=== PATIENT | female | born 1945 | race African-American/Black ===

== ENCOUNTER 2016-08-21 10:30 | Day surgery (SDC) | payer MEDICARE, OTHER ==
[~2016-08-21 10:30] MED LIST: AMLO10TA2 PO; ASPI81TA81 PO; CLON.1 PO; HYDR-3133 PO; HYDR-3533 PO; LANTINJ SQ; LEVO75TA3 PO; LISI-515 PO; NEPHRO PO; SEVEL800 PO; TRAM50TA PO; VENTAER INH
[2016-08-21 11:11] VITALS: BP 162/88; PULSE 100; RESP 14; TEMP 97.8; O2SAT 100
[2016-08-21 12:05] VITALS: BP_SYST 165; BP_SYST 178; BP_DIAS 93; BP_DIAS 94; PULSE 85; RESP 18; TEMP 98; O2SAT 96; O2SAT 98
[2016-08-21 12:20] VITALS: BP 165/93; PULSE 85; RESP 18; TEMP 98; O2SAT 100
[2016-08-21] MEDS ORDERED: ALBUMIN HUMAN 25% 25GM-W/12.5GM FOR 37.5GM IV ONE (12:30)
[2016-08-21] MEDS ORDERED: ALBUMIN HUMAN 25% 12.5GM-W/25GM FOR 37.5GM IV ONE (12:30)
--- NOTE | 2016-08-21 15:46 | RADRPT ---
EXAM DATE/TIME: 08/21/2016 11:06 [facility] COMPARISON: US GUIDED ABD PARACENTESIS, June 07, 2016, 8:26. EXTERNAL COMPARISON : [facility], US ABDOMEN, COMPLETE, March 28, 2016 INDICATIONS : Ascites. MEDICAL HISTORY : Hypertension. Gastroesophageal reflux disease. Hypothyroidism. Diabetes. Hepatitis. Pulmonary hyperte nsion. SURGICAL HISTORY : Left hallux amputation. Paracentesis. ENCOUNTER: Subsequent ACUITY: 2 months PAIN SCORE: 5/10 LOCATION: Left lower quadrant FLUID: Total volume of 5000 cc of cloudy, red fluid was removed. Fluid was discarded. Paracentesis was therapeutic only. Post procedure scanning reveals no hematoma or other complication. TECHNIQUE: 1. Ultrasound guidance for abdominal paracentesis. 2. Paracentesis. The risks, benefits, and alternatives to ultrasound guided paracentesis were explained to the patient in detail including the risk of bleeding and infection. Written and verbal informed consent was obt ained. With the patient on the ultrasound table, ultrasound imaging was used to select the most appropriate approach for paracentesis. Overlying skin was prepped and draped in the usual sterile fashion and wi th a local anesthetic, a dermatotomy was made with an 11 blade scalpel. A 6 Thai [id number]-A-[id number] ca theter was introduced into the peritoneal cavity and fluid was collected. The patient tolerated the procedure well and left the ultrasound suite in stable condition. CONCLUSION: Uncomplicated ultrasound guided paracentesis. Jacob Harmon MD on August 21, 2016 at 15:36 Board Certified Radiologist. This report was verified electronically.
[2016-09-25] MEDS ORDERED: TRAM50TA PO (13:58)
[2016-09-25] MEDS ORDERED: ALBUAER3 INH (13:58)
[2016-09-25] MEDS ORDERED: AZIT500T2 PO (13:58)
[2016-09-25] MEDS ORDERED: FLUT50SP EACH NARE (14:01)
[2016-09-25] MEDS ORDERED: REME15TA PO (14:16)
[2016-12-04] MEDS ORDERED: TRAM50TA PO (11:36)
[2017-01-10] MEDS ORDERED: NEPHRO PO (10:30)
[2017-01-10] MEDS ORDERED: AMLO10TA2 PO (10:30)
[2017-01-10] MEDS ORDERED: ASPI81TA81 PO (10:30)
[2017-01-10] MEDS ORDERED: CLON.1 PO (10:30)
[2017-01-10] MEDS ORDERED: TRAM50TA PO (10:30)
[2017-01-10] MEDS ORDERED: LISI-515 PO (10:30)
[2017-01-10] MEDS ORDERED: SEVEL800 PO (10:30)
[2017-01-10] MEDS ORDERED: LANTINJ SQ (10:30)
[2017-01-10] MEDS ORDERED: LEVO75TA3 PO (10:30)
[2017-01-10] MEDS ORDERED: REME15TA PO (10:30)
== END 2016-08-21 13:10 | disposition home or self-care (01) ==
LOC: EDBD → HRAD 10:30 → HRIP 10:31 → HRAD 13:10
PROVIDERS: ATTEND Internal Medicine Nephrology
DX: R18.8 Other ascites (principal)
CPT/HCPCS: 49083; C1729; P9047

== ENCOUNTER 2016-10-16 07:11 | Day surgery (SDC) | payer MEDICARE, OTHER ==
[~2016-10-16 07:11] MED LIST changes: +ALBUAER3 INH; +AZIT500T2 PO; +FLUT50SP EACH NARE; +REME15TA PO; -VENTAER INH
[2016-10-16 09:16] VITALS: BP 175/82; PULSE 77; RESP 18; TEMP 97.3; O2SAT 98
[2016-10-16 10:20] VITALS: BP 165/79; PULSE 81; RESP 20; TEMP 98.1; O2SAT 95
[2016-10-16 10:35] VITALS: BP 166/85; PULSE 81; RESP 20; O2SAT 95
--- NOTE | 2016-10-16 12:34 | RADRPT ---
EXAM DATE/TIME: 10/16/2016 08:51 [facility] COMPARISON: No previous studies available for comparison. INDICATIONS : Ascites. MEDICAL HISTORY : Methicillin-resistant Staphylococcus aureus. Hypertension. Hepatitis C. End stage renal disease. Anem ia. SURGICAL HISTORY : Left hallux amputation. Paracentesis. ENCOUNTER: Subsequent ACUITY: 3 months PAIN SCORE: 3/10 LOCATION: Right lower quadrant FLUID: Total volume of 4100 cc of clear, yellow fluid was removed. Fluid was discarded. Paracentesis was therapeutic only. Post procedure scanning reveals no hematoma or other complication. TECHNIQUE: 1. Ultrasound guidance for abdominal paracentesis. 2. Paracentesis. The risks, benefits, and alternatives to ultrasound guided paracentesis were explained to the patient in detail including the risk of bleeding and infection. Written and verbal informed consent was obt ained. With the patient on the ultrasound table, ultrasound imaging was used to select the most appropriate approach for paracentesis. Overlying skin was prepped and draped in the usual sterile fashion and wi th a local anesthetic, a dermatotomy was made with an 11 blade scalpel. A 6 [place] [id number] ca theter was introduced into the peritoneal cavity and fluid was collected. The patient tolerated the procedure well and left the ultrasound suite in stable condition. CONCLUSION: Uncomplicated ultrasound guided paracentesis. Post procedure imaging demonstrates complete evacuation of the fluid. Jacob Harmon MD on October 16, 2016 at 12:32 Board Certified Radiologist. This report was verified electronically.
[2016-10-16] MEDS ORDERED: REME15TA PO (14:05)
[2016-10-16] MEDS ORDERED: TRAM50TA PO (14:05)
[2016-12-04] MEDS ORDERED: TRAM50TA PO (11:36)
[2017-01-10] MEDS ORDERED: TRAM50TA PO (10:30)
[2017-01-10] MEDS ORDERED: NEPHRO PO (10:30)
[2017-01-10] MEDS ORDERED: AMLO10TA2 PO (10:30)
[2017-01-10] MEDS ORDERED: LANTINJ SQ (10:30)
[2017-01-10] MEDS ORDERED: CLON.1 PO (10:30)
[2017-01-10] MEDS ORDERED: SEVEL800 PO (10:30)
[2017-01-10] MEDS ORDERED: LISI-515 PO (10:30)
[2017-01-10] MEDS ORDERED: LEVO75TA3 PO (10:30)
[2017-01-10] MEDS ORDERED: ASPI81TA81 PO (10:30)
[2017-01-10] MEDS ORDERED: REME15TA PO (10:30)
== END 2016-10-16 10:50 | disposition home or self-care (01) ==
LOC: HRAD 07:11 → MERGE 07:11 → HRIP 07:12 → HRAD 10:50
PROVIDERS: ATTEND Internal Medicine Nephrology
DX: R18.8 Other ascites (principal); I12.0 Hypertensive chronic kidney disease with stage 5 chronic kidney disease or end stage renal disease; B19.20 Unspecified viral hepatitis C without hepatic coma; N18.6 End stage renal disease; D64.9 Anemia, unspecified; B95.61 Methicillin susceptible Staphylococcus aureus infection as the cause of diseases classified elsewhere
CPT/HCPCS: 49083; C1729; G0463; 99213

== ENCOUNTER 2016-12-11 09:32 | Day surgery (SDC) | payer MEDICARE, OTHER ==
[2016-12-11 11:55] VITALS: BP 176/75; PULSE 79; RESP 18; TEMP 98.4; O2SAT 96
[2016-12-11] MEDS ORDERED: ALBUMIN HUMAN 25% 12.5GM-W/25GM FOR 37.5GM IV ONE (12:00)
[2016-12-11] MEDS ORDERED: ALBUMIN HUMAN 25% 25GM-W/12.5GM FOR 37.5GM IV ONE (12:00)
[2016-12-11 12:10] VITALS: BP 183/94; PULSE 77; RESP 16; O2SAT 100
[2016-12-11 12:25] VITALS: BP 175/76; PULSE 76; RESP 18; O2SAT 97
--- NOTE | 2016-12-11 12:25 | RADRPT ---
EXAM DATE/TIME: 12/11/2016 10:30 [facility] COMPARISON: US GUIDED ABD PARACENTESIS, October 16, 2016, 8:51. INDICATIONS : Ascites. Intra-procedural antibiotics were given as prescribed above. MEDICAL HISTORY : Hepatitis C. Hypertension. Methicillin-resistant Staphylococcus aureus. End stage renal disease. Ane loan. SURGICAL HISTORY : Paracentesis. Left hallux amputation. ENCOUNTER: [facility] ACUITY: 2 months PAIN SCORE: 0/10 LOCATION: Left lower quadrant FLUID: Total volume of 6200 cc of clear, yellow fluid was removed. Fluid was discarded. Paracentesis was therapeutic only. Post procedure scanning reveals no hematoma or other complication. TECHNIQUE: 1. Ultrasound guidance for abdominal paracentesis. 2. Paracentesis. The risks, benefits, and alternatives to ultrasound guided paracentesis were explained to the patient in detail including the risk of bleeding and infection. Written and verbal informed consent was obt ained. With the patient on the ultrasound table, ultrasound imaging was used to select the most appropriate approach for paracentesis. Overlying skin was prepped and draped in the usual sterile fashion and wi th a local anesthetic, a dermatotomy was made with an 11 blade scalpel. A 6 [place] [id number]-T-oyntrdvu ca theter was introduced into the peritoneal cavity and fluid was collected. The patient tolerated the procedure well and left the ultrasound suite in stable condition. CONCLUSION: Uncomplicated ultrasound guided paracentesis. Mendoza Kong MD on December 11, 2016 at 12:22 Board Certified Radiologist. This report was verified electronically.
[2016-12-11] MEDS ORDERED: REME15TA PO (21:15)
[2017-01-10] MEDS ORDERED: LISI-515 PO (10:30)
[2017-01-10] MEDS ORDERED: CLON.1 PO (10:30)
[2017-01-10] MEDS ORDERED: AMLO10TA2 PO (10:30)
[2017-01-10] MEDS ORDERED: LANTINJ SQ (10:30)
[2017-01-10] MEDS ORDERED: ASPI81TA81 PO (10:30)
[2017-01-10] MEDS ORDERED: REME15TA PO (10:30)
[2017-01-10] MEDS ORDERED: TRAM50TA PO (10:30)
[2017-01-10] MEDS ORDERED: NEPHRO PO (10:30)
[2017-01-10] MEDS ORDERED: LEVO75TA3 PO (10:30)
[2017-01-10] MEDS ORDERED: SEVEL800 PO (10:30)
== END 2016-12-11 13:00 | disposition home or self-care (01) ==
LOC: HRAD 09:32 → HRIP 09:33 → HRAD 13:00
PROVIDERS: ATTEND Internal Medicine Gastroenterology
DX: R18.8 Other ascites (principal); I12.0 Hypertensive chronic kidney disease with stage 5 chronic kidney disease or end stage renal disease; N18.6 End stage renal disease; D63.1 Anemia in chronic kidney disease; B19.20 Unspecified viral hepatitis C without hepatic coma; Z86.14 Personal history of Methicillin resistant Staphylococcus aureus infection
CPT/HCPCS: 49083; 96365; C1729

== ENCOUNTER 2017-01-13 08:03 | Observation (INO) | payer MEDICARE, OTHER ==
[2017-01-13] VITALS (9 sets, daily range): BP systolic 146–180; BP diastolic 71–77; PULSE 69–97; RESP 16–24; TEMP 97.5–98.5; O2SAT 93–100
[~2017-01-13] VITALS: Ht 165.1 cm; Wt 63.0 kg
[~2017-01-13 08:03] MED LIST changes: -AZIT500T2 PO; -FLUT50SP EACH NARE; -HYDR-3533 PO
--- NOTE | 2017-01-13 08:40 | PD ---
HPI Chief Complaint: Abnormal Results Time Seen by Provider: 08:18 Travel History International Travel<30 days: No Contact w/Intl Traveler<30days: No Traveled to known affect area: No History of Present Illness HPI Patient is a 71-year-old female with history of end-stage renal disease on hemodialysis on Mondays, Wednesdays, Fridays per Dr. Buchanan, history of hypertension, diabetes, hypothyroid, GERD, hepatitis C, cataracts and liver cirrhosis. Patient reports that she received a phone call from her nephrologists nurse telling her to go to the emergency room for evaluation as her hemoglobin was 7.0. Patient reports that she has noticed a steady decline in her hemoglobin over the past few months. Patient does endorse that she has noticed dark stools a few weeks ago, also reports that she had blood-tinged stools a few days ago. Patient reports that she has been feeling more tired lately than normal. She does not feel lightheaded or dizzy. Patient with no chest pain or shortness of breath. Patient reports that she did have a colonoscopy a few years ago, reports that everything was negative, she does not remember who her coil assembler was at that time. Patient does report that she did have her dialysis on Saturday. Patient reports that overall, she is anuric , if she does make urine - she only makes a few drops every few days. Patient's primary care doctor is Dr. Karyn Clifton Patient's defect repairer glassware is Dr. Dewayne MARI Past Medical History Anemia: Yes Arthritis: Yes Asthma: No Blood Disorders: Yes (ANEMIA) Anxiety: No Depression: No Heart Rhythm Problems: No Cancer: No Cardiovascular Problems: No High Cholesterol: No Chemotherapy: No Chest Pain: No Congestive Heart Failure: No COPD: No Cerebrovascular Accident: No Diabetes: Yes Dialysis: Yes (SINCE NOVEMBER 2012, LEFT AVF 2012) Diminished Hearing: No GERD: No Glaucoma: No Headaches: No Hepatitis: No Hiatal Hernia: No Hypertension: Yes Implanted Vascular Access Dvce: Yes Kidney Stones: No Musculoskeletal: No Neurologic: No Psychiatric: No Reproductive: No Respiratory: No Immunizations Current: Yes Myocardial Infarction: No Radiation Therapy: No Renal Failure: Yes Seizures: Yes Sickle Cell Disease: No Sleep Apnea: No Thyroid Disease: Yes Ulcer: No Menopausal: Yes Past Surgical History Abdominal Surgery: No AICD: No Cardiac Surgery: No Ear Surgery: No Endocrine Surgery: No Eye Surgery: No Genitourinary Surgery: No Gynecologic Surgery: No Hysterectomy: Yes (PARTICIAL ) Oral Surgery: No Pacemaker: No Thoracic Surgery: No Other Surgery: Yes (FIRST DIGIT FOOT AMPUTATION) Social History Alcohol Use: No Tobacco Use: Yes Substance Use: No Allergies-Medications (Allergen,Severity, Reaction): Coded Allergies: *MDRO Multi-Drug Resistant Organism (Verified Allergy, Unknown, 01/13/17) MRSA Reported Meds & Prescriptions Reported Meds & Active Scripts Active Remeron (Mirtazapine) 15 Mg Tab 15 Mg PO HS Tramadol (Tramadol HCl) 50 Mg Tab 100 Mg PO DAILY PRN Aspir-81 (Aspirin) 81 Mg Tabdr 81 Mg PO DAILY Nephro-Jammie Rx (Vitamin B Cmplx/Vit C/Folic AC) 1 Tab 1 Tab PO DAILY Renvela (Sevelamer Carbonate) 800 Mg Tab 800 Mg PO TID Levothyroxine (Levothyroxine Sodium) 75 Mcg Tab 75 Mcg PO DAILY Lantus Solostar Pen Inj (Insulin Glargine) 300 Unit/3 Ml Pen 10 Units SQ HS Amlodipine (Amlodipine Besylate) 10 Mg Tab 10 Mg PO DAILY Lisinopril 20 Mg Tab 20 Mg PO DIRECTED Catapres (Clonidine) 0.1 Mg Tab 0.1 Mg PO DAILY@0600 Proair Hfa 8.5 GM Inh (Albuterol Sulfate) 90 Mcg/Act Aer 2 Puff INH Q4-6H PRN 108 mcg/actuation Reported Hydroxyzine HCl 25 Mg Tab 25 Mg PO HS Review of Systems General / Constitutional: No: Fever Eyes: No: Visual changes HENT: No: Headaches Cardiovascular: No: Chest Pain or Discomfort Respiratory: No: Shortness of Breath Gastrointestinal: Positive: Other (melena), No: Abdominal Pain Genitourinary: No: Dysuria, Menorrhagia Musculoskeletal: No: Pain Skin: No Rash Neurologic: Positive: Weakness Psychiatric: No: Depression Endocrine: No: Polydipsia Hematologic/Lymphatic: No: Easy Bruising Physical Exam Narrative GENERAL: No acute distress SKIN: Focused skin assessment warm/dry. HEAD: Atraumatic. Normocephalic. EYES: Pupils equal and round. No scleral icterus. No injection or drainage. ENT: No nasal bleeding or discharge. Mucous membranes pink and moist. NECK: Trachea midline. No JVD. CARDIOVASCULAR: Regular rate and rhythm. No murmur appreciated. RESPIRATORY: No accessory muscle use. Clear to auscultation. Breath sounds equal bilaterally. GASTROINTESTINAL: Abdomen soft, non-tender, nondistended. Hepatic and splenic margins not palpable. : Rectal exam performed with RN at bedside, patient with Hemoccult positive dark brown blood MUSCULOSKELETAL: No obvious deformities. No clubbing. No cyanosis. No edema. Patient with left-sided AV fistula with good thrill NEUROLOGICAL: Awake and alert. No obvious cranial nerve deficits. Motor grossly within normal limits. Normal speech. PSYCHIATRIC: Appropriate mood and affect; insight and judgment normal. Data Data Last Documented VS Vital Signs Date Time Temp Pulse Resp B/P Pulse Ox O2 Delivery O2 Flow Rate FiO2 01/13/17 08:18 99 Room Air 01/13/17 08:05 98.5 76 24 180/76 Orders Type And Screen (01/13/17 08:18) Electrocardiogram (01/13/17 08:18) Prothrombin Time / Inr (Pt) (01/13/17 08:18) Act Partial Throm Time (Ptt) (01/13/17 08:18) Complete Blood Count With Diff (01/13/17 08:18) Basic Metabolic Panel (Bmp) (01/13/17 08:18) Ecg Monitoring (01/13/17 08:18) Iv Access Insert/Monitor (01/13/17 08:18) Oximetry (01/13/17 08:18) Admit Order (Ed Use Only) (01/13/17 10:38) Labs Laboratory Tests Test 01/13/17 08:25 White Blood Count 6.6 TH/MM3 Red Blood Count 3.14 MIL/MM3 Hemoglobin 8.3 GM/DL Hematocrit 26.4 % Mean Corpuscular Volume 84.3 FL Mean Corpuscular Hemoglobin 26.6 PG Mean Corpuscular Hemoglobin 31.5 % Concent Red Cell Distribution Width 17.7 % Platelet Count 267 TH/MM3 Mean Platelet Volume 9.9 FL Neutrophils (%) (Auto) 66.7 % Lymphocytes (%) (Auto) 12.5 % Monocytes (%) (Auto) 8.3 % Eosinophils (%) (Auto) 11.7 % Basophils (%) (Auto) 0.8 % Neutrophils # (Auto) 4.4 TH/MM3 Lymphocytes # (Auto) 0.8 TH/MM3 Monocytes # (Auto) 0.6 TH/MM3 Eosinophils # (Auto) 0.8 TH/MM3 Basophils # (Auto) 0.1 TH/MM3 CBC Comment DIFF FINAL Differential Comment Prothrombin Time 12.9 SEC Prothromb Time International 1.2 RATIO Ratio Activated Partial 25.6 SEC Thromboplast Time Sodium Level 137 MEQ/L Potassium Level 4.9 MEQ/L Chloride Level 100 MEQ/L Carbon Dioxide Level 28.2 MEQ/L Anion Gap 9 MEQ/L Blood Urea Nitrogen 40 MG/DL Creatinine 6.37 MG/DL Estimat Glomerular Filtration 8 ML/MIN Rate Random Glucose 159 MG/DL Calcium Level 9.0 MG/DL Blood Type O POSITIVE Antibody Screen NEGATIVE MDM Medical Decision Making Medical Screen Exam Complete: Yes Emergency Medical Condition: Yes Interpretation(s) EKG at 08: Normal sinus rhythm at 71 bpm, QT/QTc 415/437, ST segment depressions in leads 2, 3, aVF, V5 and V6; EKG similar to previous ekg's Vital Signs Date Time Temp Pulse Resp B/P Pulse Ox O2 Delivery O2 Flow Rate FiO2 01/13/17 08:18 99 Room Air 01/13/17 08:05 98.5 76 24 180/76 94 Room Air Differential Diagnosis Anemia could be secondary to GI bleed, electrolyte deficiency, renal disease Narrative Course Patient is a 71-year-old female with history of stage renal disease on hemodialysis Mondays, Wednesdays and Fridays, presents to emergency room with complaints of anemia. Patient reports that she received a call from dialysis nurse yesterday that her hemoglobin was 7.0. Patient was told to come to emergency room for evaluation. Patient reports no other complaints except for feeling weak over the past few months, she did endorse that she has had dark stools a few weeks ago and noticed bright red stools last week. Patient has seen a coil assembler a few years ago, reports that the colonoscopy was negative at that time. On evaluation, vital signs are stable. Patient was placed on a monitoring analyst upon arrival to the emergency room. Patient does have heme positive dark brown stools on exam. Plan to type and screen patient. Will obtain blood work and monitor her on a monitoring analyst. Hgb trend: 07/25/16: 9.5 11/28/16: 7.9 01/11/17: 7.5 hgb today 8.3 Hemoglobin 8.3, and to observe for serial hbg for evaluation of GI bleed case reviewed with dr. daniel who accepts pt to service of dr. quiroga Diagnosis Primary Impression: GI bleed Qualified Code: K92.2 - Gastrointestinal hemorrhage, unspecified gastrointestinal hemorrhage type Additional Impression: Anemia Qualified Code: D64.9 - Anemia, unspecified type Admitting Information Admitting Physician Requests: Observation Hailey Sullivan DO Jan 13, 2017 08:40
[2017-01-13 08:50] LABS: AUTOMATED NEUTROPHIL # 4.4 TH/MM3 (1.8-7.7); BASOPHIL # 0.1 TH/MM3 (0-0.2); BASOPHIL % 0.8 % (0.0-2.0); EOSINOPHIL # 0.8 TH/MM3 (0-0.4); EOSINOPHIL % 11.7 % (0.0-4.0); HEMATOCRIT 26.4 % (35.0-46.0); HEMO FLAGS DIFF FINAL; LYMPH % 12.5 % (9.0-44.0); LYMPHOCYTE # 0.8 TH/MM3 (1.0-4.8); MEAN CELL VOLUME 84.3 FL (80.0-100.0); MEAN CORPUSCULAR HEMOGLOBIN 26.6 PG (27.0-34.0); MEAN CORPUSCULAR HGB CONC 31.5 % (32.0-36.0); MONO % 8.3 % (0.0-8.0); NEUT % 66.7 % (16.0-70.0); PLATELET COUNT 267 TH/MM3 (150-450); RED BLOOD COUNT 3.14 MIL/MM3 (4.00-5.30); RED CELL DISTRIBUTION WIDTH 17.7 % (11.6-17.2); WHITE BLOOD COUNT 6.6 TH/MM3 (4.0-11.0)
[2017-01-13 09:00] LABS: APTT (PATIENT) 25.6 SEC (24.3-30.1); INTERNATIONAL NORMALIZED RATIO 1.2 RATIO; PROTHROMBIN TIME - PATIENT 12.9 SEC (9.8-11.6)
[2017-01-13 09:12] LABS: BICARBONATE 28.2 MEQ/L (21.0-32.0); POTASSIUM 4.9 MEQ/L (3.5-5.1)
--- NOTE | 2017-01-13 10:48 | HHI.HP ---
HPI Service Family Medicine Primary Care Physician Unknown Admission Diagnosis GI Bleed Diagnoses: International Travel<30 Days: No Contact w/Intl Traveler<30days: No Known Affected Area: No History of Present Illness Patient is a 71-year-old female with a PMH significant for ESRD who presented here today at the direction of her nephrology nurse. Patient reports getting a call yesterday about low hemoglobin on 01/12 and the nephrology nurse recommended she go to the ED at that time. She deferred coming in until today. She reports that she otherwise feels well but has noticed more fatigue over the last several weeks. She has also noticed dark stools on 2 separate occasions last month but no further episodes nor bright red blood. She otherwise denies chest pain, SOB, syncope, weakness, dizziness, confusion, abdominal pain, nausea /vomiting. She does not make urine. She does report getting diarrhea with dialysis which is typically resolved with Imodium. She also endorses abdominal distention that requires paracentesis every 3 months. She denies a history of hepatitis C but is noted in chart review. Of note patient reports running out of her medication over 3 weeks ago as her old roommate do them out except for her amlodipine and aspirin. She also reports not taking insulin for her diabetes for over one year as she states that she does not require insulin anymore. 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 Does report getting paracentesis every 3 months. - Cataracts - Dr. Holly (Ophthalmology, [facility]) - Dr. Buchanan (Nephrology) - Dr. Akbar (Cardiology) Past Surgical History - Left hallux amputation Reported Medications Reported Meds & Active Scripts Active Remeron (Mirtazapine) 15 Mg Tab 15 Mg PO HS Tramadol (Tramadol HCl) 50 Mg Tab 100 Mg PO DAILY PRN Aspir-81 (Aspirin) 81 Mg Tabdr 81 Mg PO DAILY Nephro-Jammie Rx (Vitamin B Cmplx/Vit C/Folic AC) 1 Tab 1 Tab PO DAILY Renvela (Sevelamer Carbonate) 800 Mg Tab 800 Mg PO TID Levothyroxine (Levothyroxine Sodium) 75 Mcg Tab 75 Mcg PO DAILY Lantus Solostar Pen Inj (Insulin Glargine) 300 Unit/3 Ml Pen 10 Units SQ HS Amlodipine (Amlodipine Besylate) 10 Mg Tab 10 Mg PO DAILY Lisinopril 20 Mg Tab 20 Mg PO DIRECTED Catapres (Clonidine) 0.1 Mg Tab 0.1 Mg PO DAILY@0600 Proair Hfa 8.5 GM Inh (Albuterol Sulfate) 90 Mcg/Act Aer 2 Puff INH Q4-6H PRN 108 mcg/actuation Reported Hydroxyzine HCl 25 Mg Tab 25 Mg PO HS (Megha Fowler MD R2) Allergies: Coded Allergies: *MDRO Multi-Drug Resistant Organism (Verified Allergy, Unknown, 01/13/17) MRSA Family History HTN, DM Social History - Tobacco: currently 1 cigarette daily, history of 1 PPD for ~35 yrs - EtOH: denies, wine periodically - Illicit drugs: denies - 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 Resting comfortably in bed SKIN: No rashes, ecchymoses. Cool and dry. 2 superficial lesions on bilateral toes that appear to be well healing. EYES: Pupils equal round and reactive. Extraocular motions intact. No scleral icterus. No injection or drainage. ENT: Nose without bleeding, purulent drainage. Throat without erythema, tonsillar hypertrophy or exudate. Uvula midline. Airway patent. NECK: Trachea midline. No lymphadenopathy. Supple, nontender, no meningeal signs. CARDIOVASCULAR: Regular rate and rhythm without murmurs, gallops, or rubs. RESPIRATORY: Clear to auscultation. Breath sounds equal bilaterally. No wheezes , rales, or rhonchi. GASTROINTESTINAL: Abdomen soft, non-tender, distended. No guarding. MUSCULOSKELETAL: Extremities without clubbing, cyanosis, or edema. No calf tenderness. Onychomycosis on all toenails bilaterally. 2+ pedal pulses bilaterally NEUROLOGICAL: Awake and alert. Motor grossly within normal limits. Normal speech. Laboratory Laboratory Tests Test 01/13/17 08:25 White Blood Count 6.6 Red Blood Count 3.14 Hemoglobin 8.3 Hematocrit 26.4 Mean Corpuscular Volume 84.3 Mean Corpuscular Hemoglobin 26.6 Mean Corpuscular Hemoglobin 31.5 Concent Red Cell Distribution Width 17.7 Platelet Count 267 Mean Platelet Volume 9.9 Neutrophils (%) (Auto) 66.7 Lymphocytes (%) (Auto) 12.5 Monocytes (%) (Auto) 8.3 Eosinophils (%) (Auto) 11.7 Basophils (%) (Auto) 0.8 Neutrophils # (Auto) 4.4 Lymphocytes # (Auto) 0.8 Monocytes # (Auto) 0.6 Eosinophils # (Auto) 0.8 Basophils # (Auto) 0.1 CBC Comment DIFF FINAL Differential Comment Prothrombin Time 12.9 Prothromb Time International 1.2 Ratio Activated Partial 25.6 Thromboplast Time Sodium Level 137 Potassium Level 4.9 Chloride Level 100 Carbon Dioxide Level 28.2 Anion Gap 9 Blood Urea Nitrogen 40 Creatinine 6.37 Estimat Glomerular Filtration 8 Rate Random Glucose 159 Calcium Level 9.0 Blood Type O POSITIVE Antibody Screen NEGATIVE (Megha Fowler MD R2) Result Diagram: 01/13/17 0825 01/13/17 0825 Assessment and Plan Assessment and Plan 71-year-old female with PMH significant for ESRD. Admitted for suspected lower GI bleed Code Status Full (Megha Fowler MD R2) Attending Attestation Patient seen and examined this am. Case reviewed and discussed Please refer to resident H&P for further details regarding HPI, ROS, PMH, SurgHx , FH and SocHx In summary, patient is a 71yoF presenting for worsening fatigue, weakness and Hgb notable for 6.3 by nephrology. She is seen in HD this am. She has no complaints, had BMs this am, but uncertain how they looked. NO abdominal pain, but complains of being hungry. GENERAL: wdwn NAD resting in bed in HD SKIN: Warm and dry. NO rashes HEAD: Normocephalic. AT EYES: No scleral icterus. No injection or drainage. ENT: OP clear. MMM NECK: Supple, trachea midline. No JVD or lymphadenopathy. CARDIOVASCULAR: Regular rate and rhythm without audible murmurs, gallops, or rubs. RESPIRATORY: Breath sounds equal bilaterally. No accessory muscle use. GASTROINTESTINAL: Abdomen soft, non-tender, nondistended. Minimal diffuse abd pain, no rebound. Hypoactive BS. MUSCULOSKELETAL: No cyanosis, or edema. No calf tenderness BACK: Nontender without obvious deformity. No CVA tenderness. NEURO: Awake and alert. Normal speech. CN grossly intact. A/P: 71yoF admitted with: Acute blood loss anemia, symptomatic anemia GIB Hemoccult + ESRD on HD DM HTN, uncontrolled Serial hgb Transfuse to keep hgb>7 Monitor for bleeding GI, renal consult Resume home meds as appropriate Patient seen and examined Case reviewed and discussed Agree with plan of care as discussed with me and documented in the resident note. (Alannah Benitez MD) Problem List: (1) GI bleed Status: Acute Plan: Suspect lower GI bleed as Hemoccult was positive in the ED. Anemia is likely exacerbated due to ESRD. Patient hemodynamically stable at this time. -Initial H&H was 8.3/26.4, ordered serial H&H's -Ferritin and reticulocyte obtained -Hold home aspirin Consulted GI for possible colonoscopy: Appreciate recommendations (2) Anemia Status: Chronic Plan: Likely acute on chronic exacerbation of anemia in the setting of lower GI bleed and ESRD. Hemodynamically stable. See more detail plan above. (3) ESRD (end stage renal disease) on dialysis Status: Chronic Plan: Follows with Dr. Em Buchanan for hemodialysis Saturday, Saturday, Saturday. Patient reports not taking phosphate binder. Electrolytes otherwise unremarkable -Phosphate levels obtained, resume home phosphate binder Nephrology consulted: Appreciate assistance with dialysis (4) Ascites Status: Chronic Plan: Patient denies having hepatitis C but does report requiring paracentesis for ascites every 3 months. Patient unable to clarify etiology of ascites. Patient also unable to take Lasix due to anuria. -Abdominal distention will likely improve with hemodialysis -Pending clinical status, may require paracentesis inpatient versus outpatient (5) Hypertension Status: Chronic Plan: Has ran out of many home medications except for amlodipine. Initial BP in ED has improved. -Continue to hold home clonidine as she has not taken this for several weeks and may benefit not having this as a home medication. Will provide as a PRN -Continue home amlodipine, lisinopril (6) Diabetes mellitus Status: Chronic Plan: Reports having the diagnosis of diabetes but not requiring medication for over one year. Suspect patient may benefit from insulin therapy as A1c 1 year ago was 8.5. -Repeat A1c -Low-dose insulin sliding scale started (7) Nutrition, metabolism, and development symptoms Status: Acute Plan: Diet: Renal, nothing by mouth after midnight in anticipation for colonoscopy Fluids: None Electronic: Unremarkable, continue to monitor GI prophylaxis: Protonix daily due to GI bleed DVT prophylaxis: Chemical contraindicated, SCDs (Megha Fowler MD R2) Problem Qualifiers (1) GI bleed: Qualified Code: K92.2 - Gastrointestinal hemorrhage, unspecified gastrointestinal hemorrhage type (2) Anemia: Qualified Code: D64.9 - Anemia, unspecified type (3) Diabetes mellitus: Megha Fowler MD R2 Jan 13, 2017 10:48 Alannah Benitez MD Jan 14, 2017 16:41 Megha Fowler MD R2 Jan 13, 2017 10:48 Alannah Benitez MD Jan 14, 2017 16:41
[2017-01-13] MEDS ORDERED: NALOXONE HCL 0.4 MG/ML AMP IV PRN ×2 (11:30→11:45)
[2017-01-13] MEDS ORDERED: LACTULOSE SYRUP 20 GM/30 ML CUP PO PRN (11:30)
[2017-01-13] MEDS ORDERED: BISACODYL 10 MG SUPP RECTAL PRN (11:30)
[2017-01-13] MEDS ORDERED: SENNOSIDES 8.6 MG TAB PO PRN (11:30)
[2017-01-13] MEDS: LISINOPRIL 20 MG TAB PO SCH (11:38)
[2017-01-13] MEDS ORDERED: ACETAMINOPHEN/HYDROcodone 325 MG/10 MG TAB PO PRN (11:45)
[2017-01-13] MEDS ORDERED: GLUCAGON 1 MG/ML VIAL OTHER PRN (11:45)
[2017-01-13] MEDS ORDERED: DEXTROSE 50% IN WATER 50 ML VIAL(D50) IV PRN (11:45)
[2017-01-13] MEDS ORDERED: ACETAMINOPHEN/HYDROcodone 325 MG/5 MG TAB PO PRN (11:45)
[2017-01-13] MEDS ORDERED: SODIUM CHLOR 0.9% 1000 ML INJ 1,000 ML IV PRN ×3 (12:14)
[2017-01-13 12:15] LABS: FERRITIN 338 NG/ML (8-252)
[2017-01-13] MEDS ORDERED: cloNIDine HCL 0.1 MG TAB PO PRN ×2 (12:15→12:30)
[2017-01-13] MEDS ORDERED: GENTAMICIN SULFATE (DIALYSIS USE ONLY) 20 MG/2 ML VIAL IV PRN (12:15)
[2017-01-13] MEDS ORDERED: SODIUM CHLORIDE 0.9% FLUSH 10 ML FLUSH IV FLUSH PRN (12:15)
[2017-01-13] MEDS ORDERED: diphenhydrAMINE HCL 25 MG CAP PO PRN (12:15)
[2017-01-13] MEDS ORDERED: ACETAMINOPHEN 325 MG TAB PO PRN (12:15)
[2017-01-13] MEDS ORDERED: ALBUMIN HUMAN 25% 25 GM/100 ML BAGP IV PRN (12:15)
[2017-01-13] MEDS ORDERED: MANNITOL 12.5 GM/50 ML VIAL IV PRN (12:15)
[2017-01-13] MEDS ORDERED: HEPARIN SODIUM - IV 10,000 UNITS/10 ML VIAL IVF PRN (12:15)
[2017-01-13] MEDS ORDERED: EPOETIN ALFA 10,000 UNITS/ML VIAL IV PRN (12:15)
[2017-01-13] MEDS ORDERED: ONDANSETRON HCL 4 MG/2 ML VIAL IV PRN (12:15)
[2017-01-13] MEDS ORDERED: GELATIN 12 MM/7 MM FOAM TOP PRN (12:15)
[2017-01-13] MEDS ORDERED: HEPARIN SODIUM - IV 10,000 UNITS/10 ML VIAL PRN (12:15)
[2017-01-13] MEDS ORDERED: NITROGLYCERIN 0.4 MG SL 25 TABS/BTL SL PRN (12:15)
[2017-01-13 12:25] LABS: RETIC % 1.8 % (0.4-3.0); REVIEW FLAG FINAL
--- NOTE | 2017-01-13 12:32 | PD.CONS ---
HPI Service Nephrology Consult Requested By Reason for Consult ESRD Primary Care Physician Unknown History of Present Illness Ms. Bolivar is a 71 year old lady with history of ESRD for which she is on hemodialysis MWF. She has been on dialysis since November of 2012. Has had recurrent ascites for which she had to have several paracentesis. Patient apparently noticed dark colored stools about twice in the past 3 weeks, last episode about 2 weeks ago. Her Hemoglobin was apparently 7, and was advised to come to the ER by the dialysis nurse Patient is on Aspirin, is on no other antiplatelet agents or anticoagulants. Apparently she was being scheduled to have GI evaluation in the outpatient setting by her PCP. Patient denies any dizziness, lightheadedness. Denies chest pain, shortness of breath. Denies use of NSAIDs. She is being admitted for further evaluation. Review of Systems Constitutional: COMPLAINS OF: Fatigue, DENIES: Fever, Weight gain Eyes: DENIES: Blurred vision Respiratory: DENIES: Apneas, Cough Cardiovascular: DENIES: Chest pain, Palpitations, Syncope Gastrointestinal: COMPLAINS OF: Black stools, DENIES: Abdominal pain, Bloody stools, Constipation, Diarrhea, Nausea, Vomiting Musculoskeletal: DENIES: Joint pain Integumentary: DENIES: Abnormal pigmentation, Pruritus, Rash Past Family Social History Allergies: Coded Allergies: *MDRO Multi-Drug Resistant Organism (Verified Allergy, Unknown, 01/13/17) MRSA Past Medical History Hypertension -type 2 diabetes, currently not on medications. Hypothyroidism - Diabetic nephropathy resulting in ESRD (on dialysis MWF since 11/2012) - GERD - Hepatitis C Recurrent ascites. - Cataracts Past Surgical History - Left hallux amputation Reported Medications Reported Medications Reported Meds & Active Scripts Active Remeron (Mirtazapine) 15 Mg Tab 15 Mg PO HS Tramadol (Tramadol HCl) 50 Mg Tab 100 Mg PO DAILY PRN Aspir-81 (Aspirin) 81 Mg Tabdr 81 Mg PO DAILY Nephro-Jammie Rx (Vitamin B Cmplx/Vit C/Folic AC) 1 Tab 1 Tab PO DAILY Renvela (Sevelamer Carbonate) 800 Mg Tab 800 Mg PO TID Levothyroxine (Levothyroxine Sodium) 75 Mcg Tab 75 Mcg PO DAILY Lantus Solostar Pen Inj (Insulin Glargine) 300 Unit/3 Ml Pen 10 Units SQ HS Amlodipine (Amlodipine Besylate) 10 Mg Tab 10 Mg PO DAILY Lisinopril 20 Mg Tab 20 Mg PO DIRECTED Catapres (Clonidine) 0.1 Mg Tab 0.1 Mg PO DAILY@0600 Proair Hfa 8.5 GM Inh (Albuterol Sulfate) 90 Mcg/Act Aer 2 Puff INH Q4-6H PRN 108 mcg/actuation Reported Hydroxyzine HCl 25 Mg Tab 25 Mg PO HS Active Ordered Medications Current Medications Medications (Trade) Dose Ordered Sig/Rita Route Start Time Stop Time Status Last Admin (NS Flush) 2 ml BID IV FLUSH 01/13/17 21:00 (Norvasc) 10 mg DAILY PO 01/14/17 09:00 (Synthroid) 75 mcg DAILY@0600 PO 01/14/17 06:00 (Prinivil) 20 mg DAILY PO 01/13/17 11:15 01/13/17 11:38 (Remeron) 15 mg HS PO 01/13/17 21:00 (Narcan Inj) 0.4 mg UNSCH PRN IV 01/13/17 11:30 (Velma-Colace) 1 tab BID PO 01/13/17 21:00 (Senokot) 17.2 mg Q12H PRN PO 01/13/17 11:30 (Dulcolax Supp) 10 mg DAILY PRN RECTAL 01/13/17 11:30 (Lactulose Liq) 30 ml DAILY PRN PO 01/13/17 11:30 (Protonix) 40 mg HS PO 01/13/17 21:00 (D50w (Vial) Inj) 50 ml UNSCH PRN IV 01/13/17 11:45 (Glucagon Inj) 1 mg UNSCH PRN OTHER 01/13/17 11:45 ([place] 5-325 Mg) 1 tab Q4H PRN PO 01/13/17 11:45 ([place] 10-325 Mg) 1 tab Q4H PRN PO 01/13/17 11:45 (Narcan Inj) 0.4 mg UNSCH PRN IV 01/13/17 11:45 (Renvela) 800 mg TID PO 01/13/17 13:00 UNV Family History HTN, DM Social History Lives alone. Daughter lives close by, checks on her daily. 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 Used to smoke about 1/2PPD until about 3 months ago, now smokes 1 Cigarette/ day. Has smoked for 35 years. No ETOH currently. Physical Exam Vital Signs Vital Signs Date Time Temp Pulse Resp B/P Pulse Ox O2 Delivery O2 Flow Rate FiO2 01/13/17 11:13 70 16 166/74 100 Room Air 01/13/17 08:18 99 Room Air 01/13/17 08:05 98.5 76 24 180/76 94 Room Air Physical Exam GENERAL: pleasant lady, alert, awake, not in any distress. SKIN: Warm and dry. HEAD: Normocephalic. EYES: No scleral icterus. No injection or drainage. NECK: Supple, trachea midline. No JVD or lymphadenopathy. CARDIOVASCULAR: Regular rate and rhythm without murmurs, gallops, or rubs. RESPIRATORY: Breath sounds equal bilaterally. No accessory muscle use. GASTROINTESTINAL: Abdomen soft, non-tender, nondistended. MUSCULOSKELETAL: No cyanosis, or edema. AVF left forearm patent. BACK: Nontender without obvious deformity. No CVA tenderness. Laboratory Laboratory Tests Test 01/13/17 08:25 White Blood Count 6.6 Red Blood Count 3.14 Hemoglobin 8.3 Hematocrit 26.4 Mean Corpuscular Volume 84.3 Mean Corpuscular Hemoglobin 26.6 Mean Corpuscular Hemoglobin 31.5 Concent Red Cell Distribution Width 17.7 Platelet Count 267 Mean Platelet Volume 9.9 Neutrophils (%) (Auto) 66.7 Lymphocytes (%) (Auto) 12.5 Monocytes (%) (Auto) 8.3 Eosinophils (%) (Auto) 11.7 Basophils (%) (Auto) 0.8 Neutrophils # (Auto) 4.4 Lymphocytes # (Auto) 0.8 Monocytes # (Auto) 0.6 Eosinophils # (Auto) 0.8 Basophils # (Auto) 0.1 CBC Comment DIFF FINAL Differential Comment Prothrombin Time 12.9 Prothromb Time International 1.2 Ratio Activated Partial 25.6 Thromboplast Time Sodium Level 137 Potassium Level 4.9 Chloride Level 100 Carbon Dioxide Level 28.2 Anion Gap 9 Blood Urea Nitrogen 40 Creatinine 6.37 Estimat Glomerular Filtration 8 Rate Random Glucose 159 Calcium Level 9.0 Blood Type O POSITIVE Antibody Screen NEGATIVE Result Diagram: 01/13/1782401/13/17824 Assessment and Plan Problem List: (1) ESRD (end stage renal disease) on dialysis Plan: dialysis will be MWF. No need for dialysis today. Avoid Gadolinium. Blood transfusion can be performed during dialysis tomorrow. (2) Hypertension Plan: BP is high. Monitor. Continue her home medications: Lisinopril, Amlodipine and Clonidine. (3) Anemia Plan: normocytic anemia due to CKD. In addition, she may have developed upper GI bleeding. GI evaluation is pending. Blood transfusion can be performed at dialysis tomorrow. I will order iron studies. Continue Epogen with dialysis. (4) Ascites Plan: Currently stable, not an issue. (5) Metabolic bone disease Plan: Obtain phosphorus, monitor. Continue Renvela with meals. Assessment and Plan Thanks for the consult. I will follow. Problem Qualifiers (1) Anemia: Qualified Code: D64.9 - Anemia, unspecified type Dao Greene MD Jan 13, 2017 12:32
[2017-01-13 12:33] LABS: MAGNESIUM 2.4 MG/DL (1.5-2.5)
[2017-01-13] MEDS: SEVELAMER CARBONATE 800 MG TAB PO SCH ×2 (13:00→17:56)
--- NOTE | 2017-01-13 13:18 | PD.CONS ---
HPI History of Present Illness This is a 71 year old female who presented to the ER due to low hemoglobin on 01/12 as noted on her labs by her nephrology nurse. Patient with past medical history significant for ESRD. Reports increased fatigue. States she had one episode of bright red blood in her stool about 3 weeks ago and has had 2 episodes of dark stools. Reports intermittent RLQ pain. Last colonoscopy "years ago," which was normal per patient. No family history of colon cancer. Hemoccult was positive in ED. Patient with history of Hepatitis C, as noted in chart, but patient denies. Patient does report getting paracentesis every 3 months. (Tracy Duenas) PFSH Past Medical History Hypertension Diabetes Hypothyroidism Diabetic nephropathy with ESRD (on dialysis MWF) Nocturnal hypoxia (on 2 L O2 at night) GERD Hepatitis C Cataracts Past Surgical History Left hallux amputation (Tracy Duenas) Coded Allergies: *MDRO Multi-Drug Resistant Organism (Verified Allergy, Unknown, 01/13/17) MRSA Medications Current Medications Medications (Trade) Dose Ordered Sig/Rita Route PRN Reason Start Time Stop Time Status Last Admin Dose Admin Sodium Chloride (NS Flush) 2 ml BID IV FLUSH 01/13/17 21:00 Amlodipine Besylate (Norvasc) 10 mg DAILY PO 01/14/17 09:00 Levothyroxine Sodium (Synthroid) 75 mcg DAILY@0600 PO 01/14/17 06:00 Lisinopril (Prinivil) 20 mg DAILY PO 01/13/17 11:15 01/13/17 11:38 Mirtazapine (Remeron) 15 mg HS PO 01/13/17 21:00 Naloxone HCl (Narcan Inj) 0.4 mg UNSCH PRN IV SEE LABEL COMMENTS 01/13/17 11:30 Senna/Docusate Sodium (Velma-Colace) 1 tab BID PO 01/13/17 21:00 Sennosides (Senokot) 17.2 mg Q12H PRN PO MODERATE - SEVERE CONSTIPATION 01/13/17 11:30 Bisacodyl (Dulcolax Supp) 10 mg DAILY PRN RECTAL SEVERE CONSITIPATION 01/13/17 11:30 Lactulose (Lactulose Liq) 30 ml DAILY PRN PO SEVERE CONSITIPATION 01/13/17 11:30 Pantoprazole Sodium (Protonix) 40 mg HS PO 01/13/17 21:00 Dextrose (D50w (Vial) Inj) 50 ml UNSCH PRN IV HYPOGLYCEMIA-SEE COMMENTS 01/13/17 11:45 Glucagon (Glucagon Inj) 1 mg UNSCH PRN OTHER HYPOGLYCEMIA-SEE COMMENTS 01/13/17 11:45 Acetaminophen/ Hydrocodone Bitart ([place] 5-325 Mg) 1 tab Q4H PRN PO PAIN SCALE 3 TO 5 01/13/17 11:45 Acetaminophen/ Hydrocodone Bitart ([place] 10-325 Mg) 1 tab Q4H PRN PO PAIN SCALE 6 TO 10 01/13/17 11:45 Naloxone HCl (Narcan Inj) 0.4 mg UNSCH PRN IV SEE LABEL COMMENTS 01/13/17 11:45 Sevelamer Carbonate 800 mg 800 mg TID PO 01/13/17 13:00 Sodium Chloride (NS 1000 ml Inj) 1,000 ml @ 0 mls/hr Q0M PRN IV For Prime & Rinse Back 01/13/17 12:14 Heparin Sodium (Porcine) 8000 units 8,000 units UNSCH PRN IVF WITH DIALYSIS 01/13/17 12:15 Sodium Chloride 1,000 ml @ 200 mls/hr Q5H PRN IV WITH DIALYSIS 01/13/17 12:14 Sodium Chloride (NS 1000 ml Inj) 1,000 ml @ 0 mls/hr Q0M PRN IV WITH DIALYSIS 01/13/17 12:14 Mannitol (Mannitol Inj) 12.5 gm UNSCH PRN IV WITH DIALYSIS 01/13/17 12:15 Albumin Human (Albumin 25% Inj) 25 gm UNSCH PRN IV WITH DIALYSIS 01/13/17 12:15 Sodium Chloride (NS Flush) 5 ml UNSCH PRN IV FLUSH WITH DIALYSIS 01/13/17 12:15 Heparin Sodium (Porcine) (Heparin Inj) UNSCH PRN .XX WITH DIALYSIS 01/13/17 12:15 Gentamicin Sulfate (Gentamicin (Dialysis) Inj) 20 mg UNSCH PRN IV WITH DIALYSIS 01/13/17 12:15 Ondansetron HCl (Zofran Inj) 4 mg UNSCH PRN IV WITH DIALYSIS 01/13/17 12:15 Acetaminophen (Tylenol) 650 mg UNSCH PRN PO for headach, pain, temp > 101F 01/13/17 12:15 Diphenhydramine HCl (Benadryl) 25 mg UNSCH PRN PO for hives/itching/anaphylaxis 01/13/17 12:15 Nitroglycerin (Nitrostat Sl) 0.4 mg UNSCH PRN SL CHEST PAIN 01/13/17 12:15 Clonidine (Catapres) 0.1 mg UNSCH PRN PO for BP > 180/100 X 2 readings 01/13/17 12:15 Epoetin Néstor (Epogen Inj) 10,000 units UNSCH PRN IV WITH DIALYSIS 01/13/17 12:15 Gelatin (Gelfoam 12 Mm/7 Mm Top) 1 foam UNSCH PRN TOP SEE LABEL COMMENTS 01/13/17 12:15 Clonidine (Catapres) 0.1 mg Q6H PRN PO SBP>180, DBP>110, HR>65 01/13/17 12:30 Family History Hypertension Diabetes Social History Tobacco: 1 cigarette daily, history of 1 PPD for about 35 years ETOH: Wine occasionally Illicit Drugs: Denies (Tracy Duenas) Review of Systems Constitutional: COMPLAINS OF: Fatigue, DENIES: Diaphoretic episodes, Fever, Weight gain, Weight loss, Chills, Dizziness, Change in appetite, Night Sweats Endocrine: DENIES: Polydipsia, Polyuria Eyes: DENIES: Blurred vision, Photosensitivity, Double Vision Ears, nose, mouth, throat: DENIES: Hearing loss, Vertigo, Oral lesions, Throat pain, Hoarseness Respiratory: DENIES: Cough, Wheezing, Hemoptysis, Sputum production, Shortness of breath Cardiovascular: DENIES: Chest pain, Palpitations, Syncope, Lower Extremity Edema, Orthopnea, Claudication Gastrointestinal: COMPLAINS OF: Abdominal pain, Black stools, Bloody stools, Swelling of Abdomen, DENIES: Constipation, Diarrhea, Nausea, Vomiting, Difficulty Swallowing, Anorexia, Odynophagia, Heartburn, Hematemesis Genitourinary: DENIES: Urinary frequency, Urinary incontinence, Urgency, Hematuria, Dysuria, Nocturia Musculoskeletal: DENIES: Joint pain, Muscle aches, Stiffness, Joint Swelling, Back pain, Neck pain Integumentary: DENIES: Abnormal pigmentation, Nail changes, Pruritus, Rash, Jaundice Hematologic/lymphatic: DENIES: Bruising, Lymphadenopathy Immunologic/allergic: DENIES: Eczema, Urticaria Neurologic: DENIES: Abnormal gait, Headache, Localized weakness, Paresthesias Psychiatric: DENIES: Anxiety, Confusion, Mood changes, Depression, Agitation, Suicidal Ideation (Tracy Duenas) GI Exam Vitals I&O Vital Signs Date Time Temp Pulse Resp B/P Pulse Ox O2 Delivery O2 Flow Rate FiO2 01/13/17 12:50 77 16 169/71 99 Room Air 01/13/17 11:13 70 16 166/74 100 Room Air 01/13/17 08:18 99 Room Air 01/13/17 08:05 98.5 76 24 180/76 94 Room Air Laboratory Test 01/13/17 08:25 White Blood Count 6.6 TH/MM3 Red Blood Count 3.14 MIL/MM3 Hemoglobin 8.3 GM/DL Hematocrit 26.4 % Mean Corpuscular Volume 84.3 FL Mean Corpuscular Hemoglobin 26.6 PG Mean Corpuscular Hemoglobin 31.5 % Concent Red Cell Distribution Width 17.7 % Platelet Count 267 TH/MM3 Mean Platelet Volume 9.9 FL Neutrophils (%) (Auto) 66.7 % Lymphocytes (%) (Auto) 12.5 % Monocytes (%) (Auto) 8.3 % Eosinophils (%) (Auto) 11.7 % Basophils (%) (Auto) 0.8 % Neutrophils # (Auto) 4.4 TH/MM3 Lymphocytes # (Auto) 0.8 TH/MM3 Monocytes # (Auto) 0.6 TH/MM3 Eosinophils # (Auto) 0.8 TH/MM3 Basophils # (Auto) 0.1 TH/MM3 CBC Comment DIFF FINAL Differential Comment Reticulocyte Count 1.8 % Absolute Reticulocyte Count 55.4 MIL/L Prothrombin Time 12.9 SEC Prothromb Time International 1.2 RATIO Ratio Activated Partial 25.6 SEC Thromboplast Time Sodium Level 137 MEQ/L Potassium Level 4.9 MEQ/L Chloride Level 100 MEQ/L Carbon Dioxide Level 28.2 MEQ/L Anion Gap 9 MEQ/L Blood Urea Nitrogen 40 MG/DL Creatinine 6.37 MG/DL Estimat Glomerular Filtration 8 ML/MIN Rate Random Glucose 159 MG/DL Calcium Level 9.0 MG/DL Phosphorus Level 4.7 MG/DL Magnesium Level 2.4 MG/DL Ferritin 338 NG/ML Blood Type O POSITIVE Antibody Screen NEGATIVE Physical Examination HEENT: PERRLA; normocephalic; atraumatic; no jaundice. NECK: Neck is supple, no JVD, no lymphadenopathy. CHEST: CTA CARDIAC: RRR ABDOMEN: Soft, nondistended, nontender; no hepatosplenomegaly; bowel sounds x 4 quadrants EXTREMITIES: No clubbing, cyanosis, or edema. SKIN: Normal; no rash; no jaundice. 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 (Tracy Duenas) Assessment and Plan Plan ASSESSMENT GI bleed, Hemoccult positive. HH 8.3/26.4 (01/13). Ferritin 338. Aspirin on hold. Had colonoscopy "years ago," which was normal per patient. Anemia, HH as above. Stable. Patient with ESRD. ESRD, Chronic, On dialysis M,W,F. Nephrology following Ascites, Patient with history of Hepatitis C as noted in chart (patient denies) . Patient reports getting paracentesis every 3 months. PLAN -Colonoscopy on Saturday -Obtain consents -NPO after MN on Saturday night -Monitor HH -Notify GI if active bleeding -Further recommendations to follow based on results of above. Patient seen and examined by Dr. Delaney and myself and this note is written on his behalf. (Tracy Duenas) Physician Comments Seen and examined, plan as above, further recommendations to follow. (Madeleine Delaney MD) Tracy Duenas Jan 13, 2017 13:17 Madeleine Delaney MD Jan 13, 2017 22:49
[2017-01-13 14:02] LABS: HEMATOCRIT 26.7 % (35.0-46.0); REVIEW FLAG FINAL
--- NOTE | 2017-01-13 14:21 | EKG ---
Date Performed: 01/13/2017 Time Performed: 08:31:26 PTAGE: 71 years EKG: Left axis deviation Slight right ventricular conduction disturbance Poor initial anterior f orces V1 and V3 with a smaller wave in V4, this may be due to previous septal myocardial infarction v ersus left axis deviation. Diffuse nonspecific ST-T change Since PREVIOUS TRACING 08/12/2014, no significant change. PREVIOUS TRACIN08/12/2014 19.43 DOCTOR: German Gregory Interpretating Date/Time 01/13/2017 14:20:23
[2017-01-13] MEDS: INSULIN ASPART SUPPLEMENTAL SCALE SQ SCH ×2 (17:58→22:37)
[2017-01-13] MEDS: SODIUM CHLORIDE 0.9% FLUSH 10 ML FLUSH IV FLUSH SCH (20:39)
[2017-01-13] MEDS: MIRTAZAPINE 15 MG TAB PO SCH (20:39)
[2017-01-13] MEDS: PANTOPRAZOLE SOD 40 MG DELAYED RELEASE TAB PO SCH (20:39)
[2017-01-13] MEDS: DOCUSATE SODIUM 50 MG/SENNA 8.6 MG TAB PO SCH (20:40)
[2017-01-13 21:25] LABS: HEMATOCRIT 26.2 % (35.0-46.0); REVIEW FLAG FINAL
[2017-01-14] VITALS (7 sets, daily range): BP systolic 136–205; BP diastolic 63–84; PULSE 68–79; RESP 16–18; TEMP 97.6–98.1; O2SAT 90–98
[2017-01-14 02:23] LABS: AUTOMATED NEUTROPHIL # 3.5 TH/MM3 (1.8-7.7); BASOPHIL % 0.6 % (0.0-2.0); EOSINOPHIL # 0.8 TH/MM3 (0-0.4); EOSINOPHIL % 13.1 % (0.0-4.0); HEMATOCRIT 23.8 % (35.0-46.0); HEMO FLAGS DIFF FINAL; LYMPH % 15.8 % (9.0-44.0); LYMPHOCYTE # 0.9 TH/MM3 (1.0-4.8); MEAN CELL VOLUME 84.2 FL (80.0-100.0); MEAN CORPUSCULAR HEMOGLOBIN 26.9 PG (27.0-34.0); MONO % 10.7 % (0.0-8.0); NEUT % 59.8 % (16.0-70.0); PLATELET COUNT 236 TH/MM3 (150-450); RED BLOOD COUNT 2.83 MIL/MM3 (4.00-5.30); RED CELL DISTRIBUTION WIDTH 17.1 % (11.6-17.2); WHITE BLOOD COUNT 5.8 TH/MM3 (4.0-11.0)
[2017-01-14 02:44] LABS: ALT (GPT) 13 U/L (10-53); ANION GAP 7 MEQ/L (5-15); AST (GOT) 16 U/L (15-37); BICARBONATE 29.5 MEQ/L (21.0-32.0); BLOOD UREA NITROGEN 50 MG/DL (7-18); CHLORIDE 103 MEQ/L (98-107); GLOMERULAR FILTRATION RATE 7 ML/MIN (>89); POTASSIUM 5.1 MEQ/L (3.5-5.1); SODIUM (NA) 139 MEQ/L (136-145)
[2017-01-14 02:47] LABS: ALKALINE PHOSPHATASE 145 U/L (45-117); TOTAL BILIRUBIN ADULT 0.3 MG/DL (0.2-1.0); TRANSFERRIN IRON PROFILE 159 MG/DL (200-360)
[2017-01-14] MEDS: LEVOTHYROXINE SODIUM 75 MCG TAB PO SCH (05:55)
[2017-01-14] MEDS: INSULIN ASPART SUPPLEMENTAL SCALE SQ SCH ×4 (06:27→21:00)
[2017-01-14] MEDS: SODIUM CHLORIDE 0.9% FLUSH 10 ML FLUSH IV FLUSH SCH ×2 (09:00→22:04)
[2017-01-14] MEDS: DOCUSATE SODIUM 50 MG/SENNA 8.6 MG TAB PO SCH ×2 (09:00→21:00)
[2017-01-14] MEDS: LISINOPRIL 20 MG TAB PO SCH ×2 (09:00→12:59)
[2017-01-14] MEDS: SEVELAMER CARBONATE 800 MG TAB PO SCH ×3 (09:00→18:28)
--- NOTE | 2017-01-14 10:34 | HHI.NPPN ---
Subjective General Problems: Anemia Renal Failure: Chronic, End Stage Renal Disease Interval History Seen during dialysis. She is reporting hunger. (Teresa Parekh) Objective Data Data 01/13/17 01/14/17 19:00 07:00 Intake Total 240 ml Balance 240 ml Intake Oral 240 ml # Voids 1 Vital Signs Date Time Temp Pulse Resp B/P Pulse Ox O2 Delivery O2 Flow Rate FiO2 01/14/17 03:38 70 18 136/63 90 01/14/17 00:34 68 18 175/72 97 01/13/17 20:00 71 01/13/17 19:15 98.3 73 18 177/77 95 01/13/17 18:10 97 01/13/17 15:58 97.5 72 18 146/77 93 01/13/17 14:04 93 21 01/13/17 13:58 97.5 69 18 155/72 95 01/13/17 12:50 77 16 169/71 99 Room Air 01/13/17 11:13 70 16 166/74 100 Room Air (Teresa Parekh) -: 01/14/17 0208 01/14/17 0208 Physical Exam General Appearance: Well Developed, Well Nourished, No Acute Distress, Comfortable ( Teresa Parekh) Eyes Eye Exam: Pupils Equal (Teresa Parekh) Throat Throat Exam: Oral Mucosa [place] & Moist (Teresa Parekh) Pulmonary Resp Exam: Clear Bilaterally, Breath Sounds Equal, No Distress (Teresa Parekh) Cardiology CV Exam: Regular, Normal Sinus Rhythm, Good Perfusion (Teresa Parekh) Gastrointestinal/Abdomen GI Exam: Soft, Non-Tender (Teresa Parekh) Musculoskeletal MS Exam: Normal Gait, Normal Tone (Teresa Parekh) Integumentary Skin Exam: Clear, Warm, Dry, Intact (Teresa Parekh) Extremeties Extremities Exam: No Edema, Pedal Pulses Palpable (Teresa Parekh) Neurologic Neuro Exam: Alert, Awake, Oriented, Speech Clear, Moving All Extremities ( Teresa Parekh) Psychiatric Psych Exam: Appropriate Responses (Teresa Parekh) Assessment/Plan Discussed Condition With: Patient Assessment Summary: Anemia of CKD Problem List: (1) ESRD (end stage renal disease) on dialysis Plan: seen during dialysis on a 2K, 350 BFR, goal 4L continue dialysis support on MWF. avoid IVF, also avoid Gadolinium. obtain intermittent renal panel high protein diet when no longer NPO or on clear liquids (2) Hypertension Plan: BP is better, Continue her home medications: Lisinopril and amlodipine (3) Anemia Plan: normocytic anemia due to CKD. Continue Epogen Also, she may have developed upper GI bleeding. Due for colonoscopy tomorrow labs indicating iron deficiency, Venofer ordered x 3 doses give one unit PRBC today (4) Ascites Plan: Currently stable, not an issue. (5) Metabolic bone disease Plan: Continue Renvela Follow phosphorus level intermittently (Teresa Parekh) Plan patient was seen and examined. Agree with above assessment and plan. Seen during dialysis. Transfuse 1 unit of PRBC today. (Dao Greene MD) Problem Qualifiers (1) Anemia: Qualified Code: D64.9 - Anemia, unspecified type Teresa Parekh Jan 14, 2017 10:33 Dao Greene MD Jan 14, 2017 13:09
[2017-01-14] MEDS: IRON SUCROSE INJ 100 MG in SODIUM CHLORIDE 0.9% INJ 100 ML IV SCH (11:00)
[2017-01-14 11:41] LABS: HEMOGLOBIN A1a 1.7 %; HEMOGLOBIN A1b 0.7 %; HEMOGLOBIN Ao 83.5 %; HEMOGLOBIN F 1.1 %; HEMOGLOBIN LA1C 2.1 %; HEMOGLOBIN P3 5.9 %
[2017-01-14] MEDS ORDERED: SODIUM CHLOR 0.9% 250 ML INJ 250 ML IV ONE (11:45)
--- NOTE | 2017-01-14 11:47 | HHI.FPPN ---
Subjective Remarks Patient without concerns or complaints. Denies any abdominal pain, bloody stools , melena, sob, or cp. Had a BM this morning. (Jesus Mendiola MD R2) Objective Vitals Vital Signs Date Time Temp Pulse Resp B/P Pulse Ox O2 Delivery O2 Flow Rate FiO2 01/14/17 10:32 72 01/14/17 03:38 70 18 136/63 90 01/14/17 00:34 68 18 175/72 97 01/13/17 20:00 71 01/13/17 19:15 98.3 73 18 177/77 95 01/13/17 18:10 97 01/13/17 15:58 97.5 72 18 146/77 93 01/13/17 14:04 93 21 01/13/17 13:58 97.5 69 18 155/72 95 01/13/17 12:50 77 16 169/71 99 Room Air I/O 01/13/17 01/13/17 01/13/17 01/14/17 01/14/17 01/14/17 07:00 15:00 23:00 07:00 15:00 23:00 Intake Total 240 ml Balance 240 ml Intake Oral 240 ml # Voids 1 (Jesus Mendiola MD R2) Result Diagram: 01/14/17 0208 01/14/17 0208 A/P Assessment and Plan 71-year-old female with PMH significant for ESRD. Admitted for suspected lower GI bleed (Jesus Mendiola MD R2) Attending Attestation Patient seen and examined in HD. Case reviewed and discussed. Agree with plan of care as discussed with me and documented in the resident note. (Alannah Benitez MD) Problem List: (1) GI bleed Status: Acute Plan: Suspect upper GI bleed as Hemoccult was positive in the ED and black stools. Anemia is likely exacerbated due to ESRD. Patient hemodynamically stable at this time. -Initial H&H was 8.3/26.4: Trended q 6 hours since admission and have remained stable: 8.3 --> 8.2 --> --> 8.2 --> 7.6. -Continue to monitor H&H q 6 hours. -Ferritin within normal limits. -Hold home aspirin. -GI plans to do colonoscopy on 01/15/2017 -- we appreciate their assistance. (2) Anemia Status: Chronic Plan: Likely acute on chronic exacerbation of anemia in the setting of lower GI bleed and ESRD. Hemodynamically stable. See more detail plan above. (3) ESRD (end stage renal disease) on dialysis Status: Chronic Plan: Follows with Dr. Em Buchanan for hemodialysis Saturday, Saturday, Saturday. -Phosphate levels obtained: H at 5.0, resume home phosphate binder TID. Repeat Phosphorous in AM. Nephrology consulted: Appreciate assistance with dialysis (4) Ascites Status: Chronic Plan: Patient denies having hepatitis C but does report requiring paracentesis for ascites every 3 months. Patient unable to clarify etiology of ascites. Patient also unable to take Lasix due to anuria. -Abdominal distention will likely improve with hemodialysis -Pending clinical status, may require paracentesis inpatient versus outpatient (5) Hypertension Status: Chronic Plan: Has ran out of many home medications except for amlodipine. Initial BP in ED has improved. -Continue home amlodipine, lisinopril -Clonidine 0.1 mg PO q 6 hr PRN systolic > 180 mm Hg. (6) Diabetes mellitus Status: Chronic Plan: Reports having the diagnosis of diabetes but not requiring medication for over one year. Suspect patient may benefit from insulin therapy as A1c 1 year ago was 8.5. -Repeat A1c pending. -Low-dose insulin sliding scale started, Bedside glucose 123 and (7) Nutrition, metabolism, and development symptoms Status: Acute Plan: Diet: Renal, nothing by mouth after midnight in anticipation for colonoscopy Fluids: None Electronic: Unremarkable, continue to monitor GI prophylaxis: Protonix daily due to GI bleed DVT prophylaxis: Chemical contraindicated, SCDs (Jesus Mendiola MD R2) Problem Qualifiers (1) GI bleed: Qualified Code: K92.2 - Gastrointestinal hemorrhage, unspecified gastrointestinal hemorrhage type (2) Anemia: Qualified Code: D64.9 - Anemia, unspecified type (3) Diabetes mellitus: Jesus Mendiola MD R2 Jan 14, 2017 11:46 Alannah Benitez MD Jan 15, 2017 16:00
[2017-01-14] MEDS ORDERED: PEG (High)/E-LYTE SOLN 4000 ML BTL PO ONE (16:00)
[2017-01-14] MEDS: hydrALAZINE HCL 10 MG TAB PO SCH (22:04)
[2017-01-14] MEDS: PANTOPRAZOLE SOD 40 MG DELAYED RELEASE TAB PO SCH (22:05)
[2017-01-14] MEDS: MIRTAZAPINE 15 MG TAB PO SCH (22:06)
[2017-01-14 23:49] LABS: HEMATOCRIT 30.5 % (35.0-46.0); REVIEW FLAG FINAL
[2017-01-15] VITALS (10 sets, daily range): BP systolic 154–202; BP diastolic 67–93; PULSE 66–77; RESP 16–20; TEMP 96.3–98.4; O2SAT 91–100
[2017-01-15 04:17] LABS: REVIEW FLAG FINAL
[2017-01-15 05:02] LABS: BICARBONATE 32.9 MEQ/L (21.0-32.0); MAGNESIUM 2.3 MG/DL (1.5-2.5); POTASSIUM 3.9 MEQ/L (3.5-5.1)
[2017-01-15] MEDS: INSULIN ASPART SUPPLEMENTAL SCALE SQ SCH ×4 (05:56→21:01)
[2017-01-15] MEDS: LEVOTHYROXINE SODIUM 75 MCG TAB PO SCH (05:56)
[2017-01-15] MEDS: hydrALAZINE HCL 10 MG TAB PO SCH ×2 (05:56→15:51)
[2017-01-15] MEDS: DOCUSATE SODIUM 50 MG/SENNA 8.6 MG TAB PO SCH ×2 (09:00→20:55)
[2017-01-15] MEDS: SEVELAMER CARBONATE 800 MG TAB PO SCH ×3 (09:00→18:17)
[2017-01-15] MEDS: LISINOPRIL 20 MG TAB PO SCH (09:48)
[2017-01-15] MEDS: SODIUM CHLORIDE 0.9% FLUSH 10 ML FLUSH IV FLUSH SCH ×2 (09:49→20:54)
[2017-01-15] MEDS: IRON SUCROSE INJ 100 MG in SODIUM CHLORIDE 0.9% INJ 100 ML IV SCH (09:58)
[2017-01-15 10:38] LABS: HEMATOCRIT 28.6 % (35.0-46.0); REVIEW FLAG FINAL
--- NOTE | 2017-01-15 12:01 | HHI.FPPN ---
Subjective Remarks No acute events overnight. Afebrile. Hypertensive to 192/82 this morning. Patient seen and examined in her room. She is very unhappy with her liquid diet and requests food. She denies any headaches. Dialyzed yesterday. (Hailey Tang MD R3) Objective Vitals Vital Signs Date Time Temp Pulse Resp B/P Pulse Ox O2 Delivery O2 Flow Rate FiO2 01/15/17 07:48 98.3 74 16 192/82 95 01/15/17 04:35 98.3 67 18 154/67 94 01/15/17 00:15 96.3 74 18 175/75 96 01/14/17 21:49 72 01/14/17 20:00 97.6 75 18 172/76 98 01/14/17 14:00 98.1 77 16 187/76 90 01/14/17 13:36 97.7 79 18 205/84 94 I/O 01/14/17 01/14/17 01/14/17 01/15/17 01/15/17 01/15/17 06:59 14:59 22:59 06:59 14:59 22:59 Intake Total 900 ml Output Total 4101 ml 6 ml Balance -3201 ml -6 ml Intake Oral 900 ml Output Urine Total 6 ml Stool Total 1 ml Hemodialysis 4100 ml # Voids 1 5 # Bowel Movements 6 5 (Hailey Tang MD R3) Result Diagram: 01/15/17 1015 01/15/17 0330 Objective Remarks Gen.: No acute distress Head: Normocephalic. Atraumatic. EENT: Pupils equal round and reactive to light. Nose without drainage. Airway intact. Throat without injection. Cardiovascular: Regular rate and rhythm. No murmurs, rubs or gallops. Respiratory: Lungs clear to auscultation bilaterally. No wheezes or rhonchi. Abdomen: Soft, nontender, nondistended. No peritoneal signs. Musculoskeletal: No gross deformities. No edema. Skin: No obvious rashes or erythema. Neuro: Sensory and motor grossly intact. Cranial nerves II through XII grossly intact. (Hailey Tang MD R3) A/P Assessment and Plan 71-year-old female with PMH significant for ESRD. Admitted for suspected lower GI bleed Discharge Planning To home once colonoscopy complete, likely today (Hailey Tang MD R3) Attending Attestation Patient seen and examined. Case reviewed and discussed. Agree with plan of care as discussed with me and documented in the resident note. received additional prbcs yesterday. hgb improved For EGD, colonoscopy today (Alannah Benitez MD) Problem List: (1) GI bleed Status: Acute Plan: Suspect upper GI bleed as Hemoccult was positive in the ED and black stools. Anemia is likely exacerbated due to ESRD. Patient hemodynamically stable at this time. -Initial H&H was 8.3/26.4: Trended q 6 hours since admission and have remained stable: 8.3 --> 8.2 --> --> 8.2 --> 7.6. Status post transfusion of 1 unit packed red blood cells in dialysis yesterday. Hemoglobin now 9.5. -Ferritin within normal limits. -Hold home aspirin. -Colonoscopy today. (2) Anemia Status: Chronic Plan: Likely acute on chronic exacerbation of anemia in the setting of lower GI bleed and ESRD. Hemodynamically stable. See more detail plan above. (3) ESRD (end stage renal disease) on dialysis Status: Chronic Plan: Follows with Dr. Em Buchanan for hemodialysis Saturday, Saturday, Saturday. Dialyzed yesterday (4) Ascites Status: Chronic Plan: Patient denies having hepatitis C but does report requiring paracentesis for ascites every 3 months. Patient unable to clarify etiology of ascites. Patient also unable to take Lasix due to anuria. -Abdominal distention improved today, status post hemodialysis (5) Hypertension Status: Chronic Plan: Has ran out of many home medications except for amlodipine. Remains hypertensive despite treatment with home blood pressure medications -Continue home amlodipine, increase lisinopril to 40 mg daily -Clonidine 0.1 mg PO q 6 hr PRN systolic > 180 mm Hg. (6) Diabetes mellitus Status: Chronic Plan: Reports having the diagnosis of diabetes but not requiring medication for over one year. -A1c 6.3 -Low-dose SSI (7) Nutrition, metabolism, and development symptoms Status: Acute Plan: Diet: Renal Fluids: None Electronic: Unremarkable, continue to monitor GI prophylaxis: Protonix daily due to GI bleed DVT prophylaxis: Chemical contraindicated, SCDs (Hailey Tang MD R3) Problem Qualifiers (1) GI bleed: Qualified Code: K92.2 - Gastrointestinal hemorrhage, unspecified gastrointestinal hemorrhage type (2) Anemia: Qualified Code: D64.9 - Anemia, unspecified type (3) Diabetes mellitus: Hailey Tang MD R3 Jan 15, 2017 12:01 Alannah Benitez MD Jan 15, 2017 16:00
[2017-01-15] MEDS ORDERED: PROPOFOL 200 MG/20 ML AMP IV ONE (13:47)
--- NOTE | 2017-01-15 14:01 | GIPROC ---
[facility] [address] [facility]. [facility], [address] EGD PROCEDURE REPORT EXAM DATE: 01/15/2017 PATIENT NAME: Anel Bolivar MR #: [id number] BIRTHDATE: 1945 ATTENDING: Madeleine Delaney MD ORDER #: [id number] HOURLY SHIFT: Alvarez Zhang and Arsalan Tian STATUS: inpatient INDICATIONS: The patient is a 71 yr old female here for an EGD due to anemia PROCEDURE PERFORMED: EGD, diagnostic MEDICATIONS: None and Per Anesthesia. TOPICAL ANESTHETIC: none CONSENT: The patient understands the risks and benefits of the procedure and understands that these risks include, but are not limited to: sedation, allergic reaction, infection, perforation and/or bleeding. Alternative means of evaluation and treatment include, among others: physical exam, x-rays, and/or surgical intervention. The patient elects to proceed with this endoscopic procedure. medical equipment was checked for proper function. Hand hygiene and appropriate measures for infection prevention was taken. After the risks, benefits and alternatives of the procedure were thoroughly explained, Informed consent was verified, confirmed and timeout was successfully executed by the treatment team. The patient was anesthetized with topical anesthesia and the [id number] (Pedi C) endoscope was introduced through the mouth and advanced to the second portion of the duodenum. Retroflexion was performed and was normal The gastroscope was then slowly withdrawn and removed. ESOPHAGUS: A Schatzki ring was found in the distal esophagus and was widely open. STOMACH: The stomach otherwise appeared normal. DUODENUM: The duodenal mucosa appeared normal in the bulb and second portion of the duodenum. ADVERSE EVENTS: There were no complications. IMPRESSIONS: 1. Schatzki ring was found in the distal esophagus 2. The stomach otherwise appeared normal 3. Normal duodenal mucosa in the bulb and second portion of the duodenum 4. Retroflexion was performed and was normal RECOMMENDATIONS: Colonoscopy PATIENT CONDITION: stable DISPOSITION: Observation REPEAT EXAM: Return as needed for EGD Madeleine Delaney MD eSigned: Madeleine Delaney MD 01/15/2017 2:01 PM cc:
--- NOTE | 2017-01-15 14:04 | HHI.PR ---
Addendum to Inpatient Note Addendum Reason: Additional Documentation Additional Information Patient had an EGD, during the procedure she desaturated required cancellation of the Colonoscopy, will reschedule Colonoscopy for tomorrow. Madeleine Delaney MD Jan 15, 2017 14:04
--- NOTE | 2017-01-15 15:01 | HHI.PR ---
Addendum to Inpatient Note Addendum Reason: Additional Documentation Additional Information Evaluated patient bedside after desaturation during EGD. Patient satting well on RA. Eating hamburger despite being on clear liquid diet. Explained to the patient at length the importance of staying on a clear liquid diet so she can have her colonoscopy done tomorrow. The patient refuses to remain on CLD and states that she does not agree with doing the colonoscopy as her life is "in God 's hands." Counseled the patient as to the importance of obtaining the colonoscopy to look for a source of her bleeding. She stated that she was not concerned about bleeding and does not want the test if it involves a CLD. ( Hailey Tang MD R3) Hailey Tang MD R3 Jan 15, 2017 15:01 Alannah Benitez MD Jan 15, 2017 15:59
[2017-01-15] MEDS: BISACODYL EC 5 MG TABEC PO ONE ×2 (16:00→18:17)
--- NOTE | 2017-01-15 16:28 | HHI.NPPN ---
Subjective General Problems: Anemia Renal Failure: Chronic, End Stage Renal Disease History of Present Illness They were unable to do colonoscopy today as the patient desaturated prior to procedure. Rescheduled for tomorrow. Had dialysis yesterday. (Teresa Parekh) Objective Data Data 01/14/17 01/15/17 19:00 07:00 Intake Total 900 ml Output Total 4101 ml 6 ml Balance -3201 ml -6 ml Intake Oral 900 ml Output Urine Total 6 ml Stool Total 1 ml Hemodialysis 4100 ml # Voids 5 # Bowel Movements 11 Vital Signs Date Time Temp Pulse Resp B/P Pulse Ox O2 Delivery O2 Flow Rate FiO2 01/15/17 15:11 98.4 66 16 171/74 91 01/15/17 14:29 75 18 168/70 100 01/15/17 14:17 78 18 175/67 100 01/15/17 14:06 97.9 77 18 152/67 96 01/15/17 12:38 69 01/15/17 11:45 98.1 73 16 202/92 98 01/15/17 07:48 98.3 74 16 192/82 95 01/15/17 04:35 98.3 67 18 154/67 94 01/15/17 00:15 96.3 74 18 175/75 96 01/14/17 21:49 72 01/14/17 20:00 97.6 75 18 172/76 98 (Teresa Parekh) -: 01/15/17 1015 01/15/17 0330 Physical Exam General Appearance: Well Developed, Well Nourished, No Acute Distress, Comfortable ( Teresa Parekh) Eyes Eye Exam: Pupils Equal (Teresa Parekh) Throat Throat Exam: Oral Mucosa [place] & Moist (Teresa Parekh) Pulmonary Resp Exam: Clear Bilaterally, Breath Sounds Equal, No Distress (Teresa Parekh) Cardiology CV Exam: Regular, Normal Sinus Rhythm, Good Perfusion (Teresa Parekh) Gastrointestinal/Abdomen GI Exam: Soft, Non-Tender (Teresa Parekh) Musculoskeletal MS Exam: Normal Gait, Normal Tone (Teresa Parekh) Integumentary Skin Exam: Clear, Warm, Dry, Intact (Teresa Parekh) Extremeties Extremities Exam: No Edema, Pedal Pulses Palpable (Teresa Parekh) Neurologic Neuro Exam: Alert, Awake, Oriented, Speech Clear, Moving All Extremities ( Teresa Parekh) Psychiatric Psych Exam: Appropriate Responses (Teresa Parekh) Assessment/Plan Discussed Condition With: Patient Assessment Summary: Anemia of CKD Problem List: (1) ESRD (end stage renal disease) on dialysis Plan: s4L UF yesterday with dialysis, continue MWF dialysis support no acute renal concerns avoid IVF, also avoid Gadolinium. obtain intermittent renal panel high protein diet when no longer NPO or on clear liquids (2) Hypertension Plan: BP is better, Continue her home medications: Lisinopril and amlodipine (3) Anemia Plan: Hb stable she has normocytic anemia due to CKD. Continue Epogen Also, she may have developed upper GI bleeding. Due for colonoscopy tomorrow labs indicating iron deficiency, Venofer ordered x 3 doses given one unit 01/14 (4) Ascites Plan: Currently stable, not an issue. (5) Metabolic bone disease Plan: Continue Renvela Follow phosphorus level intermittently (6) GI bleed Plan: gi following, due for scope tomorrow on clear liquid diet but she is not following diet recommendations (Teresa Parekh) Plan patient was seen and examined during dialysis. Agree with above assessment and plan. Patient was seen during dialysis. Colonoscopy planned for today. (Dao Greene MD) Problem Qualifiers (1) Anemia: Qualified Code: D64.9 - Anemia, unspecified type (2) GI bleed: Qualified Code: K92.2 - Gastrointestinal hemorrhage, unspecified gastrointestinal hemorrhage type Teresa Parekh Jan 15, 2017 16:28 Dao Greene MD Jan 16, 2017 20:58
[2017-01-15] MEDS ORDERED: MAGNESIUM CITRATE SOLN 300 ML BTL PO ONE (20:00)
[2017-01-15] MEDS: MIRTAZAPINE 15 MG TAB PO SCH (20:55)
[2017-01-15] MEDS: hydrALAZINE HCL 25 MG TAB PO SCH (20:55)
[2017-01-15] MEDS: PANTOPRAZOLE SOD 40 MG DELAYED RELEASE TAB PO SCH (20:55)
[2017-01-16 04:33] VITALS: BP 164/67; PULSE 72; RESP 20; TEMP 98; O2SAT 95
[2017-01-16 05:31] LABS: AUTOMATED NEUTROPHIL # 4.3 TH/MM3 (1.8-7.7); BASOPHIL # 0.1 TH/MM3 (0-0.2); EOSINOPHIL # 0.3 TH/MM3 (0-0.4); EOSINOPHIL % 4.8 % (0.0-4.0); HEMATOCRIT 28.3 % (35.0-46.0); HEMO FLAGS DIFF FINAL; LYMPH % 6.9 % (9.0-44.0); LYMPHOCYTE # 0.4 TH/MM3 (1.0-4.8); MEAN CELL VOLUME 84.2 FL (80.0-100.0); MEAN CORPUSCULAR HEMOGLOBIN 27.3 PG (27.0-34.0); MEAN CORPUSCULAR HGB CONC 32.4 % (32.0-36.0); MONO % 17.4 % (0.0-8.0); NEUT % 69.9 % (16.0-70.0); PLATELET COUNT 226 TH/MM3 (150-450); RED BLOOD COUNT 3.36 MIL/MM3 (4.00-5.30); RED CELL DISTRIBUTION WIDTH 16.9 % (11.6-17.2); WHITE BLOOD COUNT 6.1 TH/MM3 (4.0-11.0)
[2017-01-16 06:06] LABS: BICARBONATE 30.5 MEQ/L (21.0-32.0); POTASSIUM 3.9 MEQ/L (3.5-5.1)
[2017-01-16] MEDS: hydrALAZINE HCL 25 MG TAB PO SCH (06:25)
[2017-01-16] MEDS: LEVOTHYROXINE SODIUM 75 MCG TAB PO SCH (06:25)
[2017-01-16] MEDS: INSULIN ASPART SUPPLEMENTAL SCALE SQ SCH ×2 (06:25→11:00)
[2017-01-16] MEDS: SEVELAMER CARBONATE 800 MG TAB PO SCH (08:29)
[2017-01-16] MEDS: DOCUSATE SODIUM 50 MG/SENNA 8.6 MG TAB PO SCH (08:29)
[2017-01-16 08:30] VITALS: PULSE 73
[2017-01-16] MEDS: SODIUM CHLORIDE 0.9% FLUSH 10 ML FLUSH IV FLUSH SCH (08:30)
--- NOTE | 2017-01-16 08:56 | HHI.FPPN ---
Subjective Remarks No acute events overnight. Afebrile, vital signs stable. Patient denies any abdominal pain. States she is hungry as she has been on clear liquids in preparation for her colonoscopy. No dark/bloody stools. (Hailey Tang MD R3 ) Objective Vitals Vital Signs Date Time Temp Pulse Resp B/P Pulse Ox O2 Delivery O2 Flow Rate FiO2 01/16/17 04:33 98.0 72 20 164/67 95 01/15/17 23:37 98.2 77 20 171/75 100 01/15/17 23:15 72 01/15/17 20:27 99 01/15/17 19:36 98.4 75 19 162/93 99 01/15/17 15:11 98.4 66 16 171/74 91 01/15/17 14:29 75 18 168/70 100 01/15/17 14:17 78 18 175/67 100 01/15/17 14:06 97.9 77 18 152/67 96 01/15/17 12:38 69 01/15/17 11:45 98.1 73 16 202/92 98 I/O 01/15/17 01/15/17 01/15/17 01/16/17 01/16/17 01/16/17 07:00 15:00 23:00 07:00 15:00 23:00 Intake Total 100 ml 520 ml Balance 100 ml 520 ml Intake Oral 0 ml 520 ml IV Total 100 ml # Voids 5 1 1 # Bowel Movements 5 (Hailey Tang MD R3) Result Diagram: 01/16/17 0455 01/16/17 0455 Objective Remarks Gen.: No acute distress Head: Normocephalic. Atraumatic. EENT: Pupils equal round and reactive to light. Nose without drainage. Airway intact. Throat without injection. Cardiovascular: Regular rate and rhythm. No murmurs, rubs or gallops. Respiratory: Lungs clear to auscultation bilaterally. No wheezes or rhonchi. Abdomen: Soft, nontender, nondistended. No peritoneal signs. Musculoskeletal: No gross deformities. No edema. Skin: No obvious rashes or erythema. Neuro: Sensory and motor grossly intact. Cranial nerves II through XII grossly intact. (Hailey Tang MD R3) A/P Assessment and Plan 71-year-old female with PMH significant for ESRD. Admitted for suspected lower GI bleed Discharge Planning To home once colonoscopy complete, likely today (Hailey Tang MD R3) Attending Attestation Patient seen and examined. Case reviewed and discussed Agree with plan of care as discussed with me and documented in the resident note. Getting HD this am, will be going to colonoscopy later today. Hgb stable at 9.2 (Alannah Benitez MD) Problem List: (1) GI bleed Status: Acute Plan: Suspect upper GI bleed as Hemoccult was positive in the ED and black stools. Anemia is likely exacerbated due to ESRD. Patient hemodynamically stable at this time. -Initial H&H was 8.3/26.4: Trended q 6 hours since admission and have remained stable: 8.3 --> 8.2 --> --> 8.2 --> 7.6. Status post transfusion of 1 unit packed red blood cells in dialysis yesterday. Hemoglobin now 9.2 -Ferritin within normal limits. -Hold home aspirin. -Colonoscopy today. (2) Anemia Status: Chronic Plan: Likely acute on chronic exacerbation of anemia in the setting of lower GI bleed and ESRD. Hemodynamically stable. See more detail plan above. (3) ESRD (end stage renal disease) on dialysis Status: Chronic Plan: Follows with Dr. Em Buchanan for hemodialysis Saturday, Saturday, Saturday. Dialysis today (4) Ascites Status: Chronic Plan: Patient denies having hepatitis C but does report requiring paracentesis for ascites every 3 months. Patient unable to clarify etiology of ascites. Patient also unable to take Lasix due to anuria. -Abdominal distention improved today, status post hemodialysis (5) Hypertension Status: Chronic Plan: Has ran out of many home medications except for amlodipine. Remains hypertensive despite treatment with home blood pressure medications -Continue home amlodipine, increased lisinopril to 40 mg daily. Increased hydralazine to 25 mg every 8 hours. -Clonidine 0.1 mg PO q 6 hr PRN systolic > 180 mm Hg. (6) Diabetes mellitus Status: Chronic Plan: Reports having the diagnosis of diabetes but not requiring medication for over one year. Blood sugars well controlled at this time. -A1c 6.3 -Low-dose SSI (7) Nutrition, metabolism, and development symptoms Status: Acute Plan: Diet: Renal Fluids: None Electronic: Unremarkable, continue to monitor GI prophylaxis: Protonix daily due to GI bleed DVT prophylaxis: Chemical contraindicated, SCDs (Hailey Tang MD R3) Problem Qualifiers (1) GI bleed: Qualified Code: K92.2 - Gastrointestinal hemorrhage, unspecified gastrointestinal hemorrhage type (2) Anemia: Qualified Code: D64.9 - Anemia, unspecified type (3) Diabetes mellitus: Hailey Tang MD R3 Jan 16, 2017 08:56 Alannah Benitez MD Jan 16, 2017 16:01
[2017-01-16] MEDS ORDERED: LISINOPRIL 20 MG TAB PO SCH (09:00)
--- NOTE | 2017-01-16 09:39 | HHI.NPPN ---
Subjective General Problems: Anemia Renal Failure: Chronic, End Stage Renal Disease Interval History Seen during dialysis today. NPO for colonoscopy later today. (Teresa Parekh) Objective Data Data 01/15/17 01/16/17 19:00 07:00 Intake Total 620 ml Balance 620 ml Intake Oral 520 ml IV Total 100 ml # Voids 2 Vital Signs Date Time Temp Pulse Resp B/P Pulse Ox O2 Delivery O2 Flow Rate FiO2 01/16/17 04:33 98.0 72 20 164/67 95 01/15/17 23:37 98.2 77 20 171/75 100 01/15/17 23:15 72 01/15/17 20:27 99 01/15/17 19:36 98.4 75 19 162/93 99 01/15/17 15:11 98.4 66 16 171/74 91 01/15/17 14:29 75 18 168/70 100 01/15/17 14:17 78 18 175/67 100 01/15/17 14:06 97.9 77 18 152/67 96 01/15/17 12:38 69 01/15/17 11:45 98.1 73 16 202/92 98 (Teresa Parekh) -: 01/16/17 0455 01/16/17 0455 Physical Exam General Appearance: Well Developed, Well Nourished, No Acute Distress, Comfortable ( Teresa Parekh) Eyes Eye Exam: Pupils Equal (Teresa Parekh) Throat Throat Exam: Oral Mucosa [place] & Moist (Teresa Parekh) Pulmonary Resp Exam: Clear Bilaterally, Breath Sounds Equal, No Distress (Teresa Parekh) Cardiology CV Exam: Regular, Normal Sinus Rhythm, Good Perfusion (Teresa Parekh) Gastrointestinal/Abdomen GI Exam: Soft, Non-Tender, Bowel Sounds Present (Teresa Parekh) Genitourinary Remarks anuric at baseline (Teresa Parekh) Musculoskeletal MS Exam: Normal Gait, Normal Tone (Teresa Parekh) Integumentary Skin Exam: Clear, Warm, Dry, Intact (Teresa Parekh) Extremeties Extremities Exam: No Edema, Pedal Pulses Palpable (Teresa Parekh) Neurologic Neuro Exam: Alert, Awake, Oriented, Speech Clear, Moving All Extremities ( Teresa Parekh) Psychiatric Psych Exam: Appropriate Responses (Teresa Parekh) Assessment/Plan Discussed Condition With: Patient Assessment Summary: Anemia of CKD Problem List: (1) ESRD (end stage renal disease) on dialysis Plan: Seen during dialysis today on a 3K, 350 BFR, goal 3L Continue MWF dialysis support no acute renal concerns avoid IVF, also avoid Gadolinium. obtain intermittent renal panel high protein diet when no longer NPO or on clear liquids (2) Hypertension Plan: BP is acceptable continue lisinopril, hydralazine, and amlodipine (3) Anemia Plan: Hb low but stable she has anemia opf chronic disease, Continue Epogen Also, she may have developed upper GI bleeding. Due for colonoscopy today labs also indicating iron deficiency, Venofer ordered x 3 doses given one unit PRBC on 01/14 (4) Ascites Plan: Currently stable, not an issue. (5) Metabolic bone disease Plan: Continue Renvela Follow phosphorus level intermittently (6) GI bleed Plan: gi following, due for scope today no further episodes of bleeding per patient but has been on clear liquids for 1- 2 days advance diet as tolerated per GI recommendations (Teresa Parekh) Plan patient was seen and examined. Colonoscopy today. Seen during dialysis. On 3K, UF goal is 3 liters. Continue Epogen and Venofer for anemia. (Dao Greene MD) Problem Qualifiers (1) Anemia: Qualified Code: D64.9 - Anemia, unspecified type (2) GI bleed: Qualified Code: K92.2 - Gastrointestinal hemorrhage, unspecified gastrointestinal hemorrhage type Teresa Parekh Jan 16, 2017 09:38 Dao Greene MD Jan 16, 2017 10:23
[2017-01-16] MEDS: IRON SUCROSE INJ 100 MG in SODIUM CHLORIDE 0.9% INJ 100 ML IV SCH (10:25)
[2017-01-16] MEDS ORDERED: IRON SUCROSE INJ 100 MG in SODIUM CHLORIDE 0.9% INJ 100 ML IV SCH (12:00)
[2017-01-16 12:16] VITALS: BP 187/84; PULSE 81; RESP 18; TEMP 98.3; O2SAT 96
--- NOTE | 2017-01-16 13:32 | PD.AMA ---
Against Medical Advice Note Discharge Disposition: Against Medical Advice Pt Condition on Discharge: Fair Recommended Treatment Course Colonoscopy for possible Lower GI track bleeding. Hgb on admission was 7.6 -- after 1 unit of PRBCs it corrected to 9.2 and was stable throughout the 3 days of her hospitalization. She last received hemodialysis on 01/16/2017. She was refusing the NPO status and continued to eat. She left AMA stating that her life is in God's hands. She understands the risks of doing so. AMA Statement Patient Anel Bolivar has decided to leave the hospital against medical advice. This patient has the capacity to refuse care and understands the risks of leaving, including permanent disability and/or , and has had an opportunity to ask questions about her condition. The patient has been informed that she may return for care at any time, and follow up has been arranged/ advised. Jesus Mendiola MD R2 Jan 16, 2017 13:32
== END 2017-01-16 13:55 | disposition home or self-care (01) ==
LOC: NEPC 08:03 → NEDA 10:39 → NEPHCDU 13:06
PROVIDERS: ADMIT Family Medicine; ATTEND Family Medicine
DX: K92.2 Gastrointestinal hemorrhage, unspecified (principal); K22.2 Esophageal obstruction; R18.8 Other ascites; I12.0 Hypertensive chronic kidney disease with stage 5 chronic kidney disease or end stage renal disease; D63.1 Anemia in chronic kidney disease; N18.6 End stage renal disease; E11.40 Type 2 diabetes mellitus with diabetic neuropathy, unspecified; E03.9 Hypothyroidism, unspecified; K21.9 Gastro-esophageal reflux disease without esophagitis; B19.20 Unspecified viral hepatitis C without hepatic coma; K74.60 Unspecified cirrhosis of liver; E11.22 Type 2 diabetes mellitus with diabetic chronic kidney disease; F17.210 Nicotine dependence, cigarettes, uncomplicated; E88.89 Other specified metabolic disorders; Z88.8 Allergy status to other drugs, medicaments and biological substances; Z79.82 Long term (current) use of aspirin; Z99.2 Dependence on renal dialysis; Z79.4 Long term (current) use of insulin
CPT/HCPCS: 36430; 43235; 80048; 80053; 82728; 82948; 83036; 83540; 83550; 83735; 84100; 84443; 85014; 85018; 85025; 85044; 85610; 85730; 86850; 86900; 86901; 86920; 87641; 93005; 96365; 96372; 96374; 96375; 99285; G0257; G0378; J1756; J1815; J7030; J7050; P9016; Q4081; 90935

== ENCOUNTER 2017-01-29 09:33 | Day surgery (SDC) | payer MEDICARE, OTHER ==
[2017-01-29 10:00] VITALS: BP 172/70; PULSE 72; RESP 16; TEMP 97.3; O2SAT 90
[2017-01-29 11:15] VITALS: BP 185/83; PULSE 72; RESP 18; TEMP 98.6; O2SAT 93
[2017-01-29 11:30] VITALS: BP 195/81; PULSE 71; RESP 18; O2SAT 97
--- NOTE | 2017-01-29 14:26 | RADRPT ---
EXAM DATE/TIME: 01/29/2017 10:09 [facility] COMPARISON: No previous studies available for comparison. INDICATIONS : Ascites. MEDICAL HISTORY : Hypertension. Methicillin-resistant Staphylococcus aureus. Hepatitis C. ESRD. Anemia. SURGICAL HISTORY : Left hellux amputation. ENCOUNTER: Subsequent ACUITY: 1 day PAIN SCORE: 3/10 LOCATION: Right lower quadrant FLUID: Total volume of 4700 cc of clear, yellow fluid was removed. Fluid was discarded. Paracentesis was therapeutic only. Post procedure scanning reveals no hematoma or other complication. TECHNIQUE: 1. Ultrasound guidance for abdominal paracentesis. 2. Paracentesis. The risks, benefits, and alternatives to ultrasound guided paracentesis were explained to the patient in detail including the risk of bleeding and infection. Written and verbal informed consent was obt ained. With the patient on the ultrasound table, ultrasound imaging was used to select the most appropriate approach for paracentesis. Overlying skin was prepped and draped in the usual sterile fashion and wi th a local anesthetic, a dermatotomy was made with an 11 blade scalpel. A 6 [place] [id number] ca theter was introduced into the peritoneal cavity and fluid was collected. The patient tolerated the procedure well and left the ultrasound suite in stable condition. CONCLUSION: Uncomplicated ultrasound guided paracentesis. Jl Talbert MD on January 29, 2017 at 14:21 Board Certified Radiologist. This report was verified electronically.
== END 2017-01-29 11:46 | disposition home or self-care (01) ==
LOC: HRAD 09:33 → HRIP 09:33 → HRAD 11:46
PROVIDERS: ATTEND Internal Medicine Nephrology
DX: R18.8 Other ascites (principal); I12.0 Hypertensive chronic kidney disease with stage 5 chronic kidney disease or end stage renal disease; N18.6 End stage renal disease; D64.9 Anemia, unspecified; B19.20 Unspecified viral hepatitis C without hepatic coma; Z86.14 Personal history of Methicillin resistant Staphylococcus aureus infection; Z88.8 Allergy status to other drugs, medicaments and biological substances
CPT/HCPCS: 49083; C1729

== ENCOUNTER 2017-03-26 09:30 | Day surgery (SDC) | payer MEDICARE, OTHER ==
[~2017-03-26 09:30] MED LIST changes: -CLON.1 PO; -SEVEL800 PO
[2017-03-26 10:28] VITALS: BP 170/88; PULSE 70; RESP 16; TEMP 98; O2SAT 93
[2017-03-26] MEDS ORDERED: ALBUMIN HUMAN 25% 25 GM/100 ML BAGP IV ONE ×2 (10:45)
[2017-03-26 11:30] VITALS: BP 179/82; PULSE 65; RESP 18; TEMP 97.9; O2SAT 89
[2017-03-26] MEDS ORDERED: LIDOCAINE HCL 1% PF 30 ML VIAL ONE (11:30)
[2017-03-26 11:45] VITALS: BP 181/88; PULSE 72; RESP 18; O2SAT 89; O2SAT 90
--- NOTE | 2017-03-26 13:55 | RADRPT ---
EXAM DATE/TIME: 03/26/2017 10:03 [facility] COMPARISON: EXTERNAL COMPARISON: US GUIDED ABD PARACENTESIS, January 29, 2017, 10:09. [facility], US ABDOMEN LIVER , Nov 13 2016. INDICATIONS : Ascites. MEDICAL HISTORY : Arthritis. Thyroid disease. Seizures. Numbness. HTN. Renal failure. Diabetes. Liver disease. Anemia . MRSA. SURGICAL HISTORY : Dialysis. Amputation of the left hallux. ENCOUNTER: [facility] ACUITY: 2 months PAIN SCORE: 4/10 LOCATION: Right lower quadrant FLUID: Total volume of 4200 cc of clear, yellow fluid was removed. Fluid was discarded. Paracentesis was therapeutic only. Post procedure scanning reveals no hematoma or other complication. TECHNIQUE: 1. Ultrasound guidance for abdominal paracentesis. 2. Paracentesis. The risks, benefits, and alternatives to ultrasound guided paracentesis were explained to the patient in detail including the risk of bleeding and infection. Written and verbal informed consent was obt ained. With the patient on the ultrasound table, ultrasound imaging was used to select the most appropriate approach for paracentesis. Overlying skin was prepped and draped in the usual sterile fashion and wi th a local anesthetic, a dermatotomy was made with an 11 blade scalpel. A 6 [place] [id number] ca theter was introduced into the peritoneal cavity and fluid was collected. The patient tolerated the procedure well and left the ultrasound suite in stable condition. CONCLUSION: Uncomplicated ultrasound guided paracentesis. Mendoza Kong MD on March 26, 2017 at 13:54 Board Certified Radiologist. This report was verified electronically.
== END 2017-03-26 12:00 | disposition home or self-care (01) ==
LOC: HRAD 09:30 → HRIP 09:31 → HRAD 12:00
PROVIDERS: ATTEND Internal Medicine Nephrology
DX: R18.8 Other ascites (principal); I12.0 Hypertensive chronic kidney disease with stage 5 chronic kidney disease or end stage renal disease; N18.6 End stage renal disease; E11.9 Type 2 diabetes mellitus without complications; E07.9 Disorder of thyroid, unspecified; K76.9 Liver disease, unspecified; B19.20 Unspecified viral hepatitis C without hepatic coma; D64.9 Anemia, unspecified; G40.909 Epilepsy, unspecified, not intractable, without status epilepticus; Z99.2 Dependence on renal dialysis; Z86.14 Personal history of Methicillin resistant Staphylococcus aureus infection
CPT/HCPCS: 49083; C1729

== ENCOUNTER 2017-06-18 09:28 | Day surgery (SDC) | payer MEDICARE, OTHER ==
[2017-06-18 10:29] VITALS: BP 199/89; PULSE 76; RESP 16; TEMP 98.7; O2SAT 91
--- NOTE | 2017-06-18 13:56 | RADRPT ---
EXAM DATE/TIME: 06/18/2017 10:28 [facility] COMPARISON: No previous studies available for comparison. INDICATIONS : Abdominal distention, ascites. MEDICAL HISTORY : Arthritis. Thyroid disease. Seizures. Numbness. HTN. Renal failure. Diabetes. Liver disease. Anemia. MRSA. SURGICAL HISTORY : Dialysis. Amputation of the left hallux. ENCOUNTER: [facility] ACUITY: 3 months PAIN SCORE: 0/10 LOCATION: Abdomen. AREA EVALUATED: Abdomen. FINDINGS: Imaging of the abdomen and pelvis was performed to evaluate for ascites for possible paracentesis. T here is only a trace amount of free fluid without a sufficient collection for safe paracentesis. CONCLUSION: 1. Trace ascites without sufficient volume for safe paracentesis. Flaco Santoro MD on June 18, 2017 at 13:53 Board Certified Radiologist. This report was verified electronically.
== END 2017-06-18 10:53 | disposition home or self-care (01) ==
LOC: HRAD 09:28 → HRIP 09:29 → HRAD 10:53
PROVIDERS: ATTEND Internal Medicine Nephrology
DX: R18.8 Other ascites (principal); I10 Essential (primary) hypertension; E11.9 Type 2 diabetes mellitus without complications
CPT/HCPCS: 76705

== ENCOUNTER 2017-07-22 12:44 | Inpatient (IN) | payer MEDICARE, OTHER ==
[~2017-07-22] VITALS: Ht 165.1 cm; Wt 67.4 kg
[2017-07-22] VITALS (9 sets, daily range): BP systolic 111–145; BP diastolic 55–99; PULSE 45–99; RESP 16–18; TEMP 97.4–99.2; O2SAT 94–100
[~2017-07-22 12:44] MED LIST changes: -TRAM50TA PO
[2017-07-22 14:35] LABS: AUTOMATED NEUTROPHIL # 27.9 TH/MM3 (1.8-7.7); BASOPHIL # 0.1 TH/MM3 (0-0.2); BASOPHIL % 0.2 % (0.0-2.0); LYMPH % 3.7 % (9.0-44.0); LYMPHOCYTE # 1.1 TH/MM3 (1.0-4.8); MEAN CELL VOLUME 79.5 FL (80.0-100.0); MEAN CORPUSCULAR HEMOGLOBIN 24.1 PG (27.0-34.0); MEAN CORPUSCULAR HGB CONC 30.3 % (32.0-36.0); MONO % 3.8 % (0.0-8.0); NEUT % 92.3 % (16.0-70.0); PLATELET COUNT 284 TH/MM3 (150-450); RED BLOOD COUNT 2.03 MIL/MM3 (4.00-5.30); RED CELL DISTRIBUTION WIDTH 19.3 % (11.6-17.2); WHITE BLOOD COUNT 30.3 TH/MM3 (4.0-11.0)
[2017-07-22 14:36] LABS: HEMO FLAGS AUTO DIFF
[2017-07-22 14:37] LABS: HEMATOCRIT 16.2 % (35.0-46.0)
--- NOTE | 2017-07-22 14:37 | PD ---
HPI Chief Complaint: General Weakness Time Seen by Provider: 13:48 Travel History International Travel<30 days: No Contact w/Intl Traveler<30days: No Traveled to known affect area: No History of Present Illness HPI 72yo F with PMH of ESRD on HD M/W/F presents to the ED with c/o nausea and vomiting black vomit and black stool for 3 days. Pt said she feels generalized weakness and unwell. Denies any chest pain, sob, n/v, abdominal pain, focal weakness or numbness. Top Precipitator Operator Helper is Dr. Buchanan. Last HD was 3 days ago. Pt's daughter is concern about an ulcer in plantar surface of right foot. Pt said it is not painful and no drainage but does have a foul smell. PFSH Past Medical History Anemia: Yes Arthritis: Yes Asthma: No Blood Disorders: Yes (ANEMIA) Anxiety: No Depression: No Heart Rhythm Problems: No Cancer: No Cardiovascular Problems: No High Cholesterol: No Chemotherapy: No Chest Pain: No Congestive Heart Failure: No COPD: No Cerebrovascular Accident: No Diabetes: Yes Dialysis: Yes (SINCE NOVEMBER 2012, LEFT AVF 2012) Diminished Hearing: No GERD: No Glaucoma: No Headaches: No Hepatitis: No Hiatal Hernia: No Hypertension: Yes Implanted Vascular Access Dvce: Yes Kidney Stones: No Musculoskeletal: No Neurologic: No Psychiatric: No Reproductive: No Respiratory: No Immunizations Current: Yes Myocardial Infarction: No Radiation Therapy: No Renal Failure: Yes Seizures: Yes Sickle Cell Disease: No Sleep Apnea: No Thyroid Disease: Yes Ulcer: No Menopausal: Yes Past Surgical History Abdominal Surgery: No AICD: No Cardiac Surgery: No Ear Surgery: No Endocrine Surgery: No Eye Surgery: No Genitourinary Surgery: No Gynecologic Surgery: No Hysterectomy: Yes (PARTICIAL ) Oral Surgery: No Pacemaker: No Thoracic Surgery: No Other Surgery: Yes (FIRST DIGIT FOOT AMPUTATION) Social History Alcohol Use: No Tobacco Use: Yes Substance Use: No Allergies-Medications (Allergen,Severity, Reaction): Coded Allergies: *MDRO Multi-Drug Resistant Organism (Verified Allergy, Unknown, 07/09/17) MRSA Reported Meds & Prescriptions Reported Meds & Active Scripts Active Nephro-Jammie Rx (Vitamin B Cmplx/Vit C/Folic AC) 1 Tab 1 Tab PO DAILY Remeron (Mirtazapine) 15 Mg Tab 15 Mg PO HS Aspir-81 (Aspirin) 81 Mg Tabdr 81 Mg PO DAILY Levothyroxine (Levothyroxine Sodium) 75 Mcg Tab 75 Mcg PO DAILY Lantus Solostar Pen Inj (Insulin Glargine) 300 Unit/3 Ml Pen 10 Units SQ HS Amlodipine (Amlodipine Besylate) 10 Mg Tab 10 Mg PO DAILY Lisinopril 20 Mg Tab 20 Mg PO DIRECTED Proair Hfa 8.5 GM Inh (Albuterol Sulfate) 90 Mcg/Act Aer 2 Puff INH Q4-6H PRN 108 mcg/actuation Reported Hydroxyzine HCl 25 Mg Tab 25 Mg PO HS Review of Systems Except as stated in HPI: all other systems reviewed are Neg Physical Exam Narrative GENERAL: 72yo F in mild distress. SKIN: Focused skin assessment warm/dry. HEAD: Atraumatic. Normocephalic. EYES: Pupils equal and round. No scleral icterus. No injection or drainage. ENT: No nasal bleeding or discharge. Mucous membranes pink and moist. NECK: Trachea midline. No JVD. CARDIOVASCULAR: Regular rate and rhythm. No murmur appreciated. RESPIRATORY: No accessory muscle use. Clear to auscultation. Breath sounds equal bilaterally. GASTROINTESTINAL: Abdomen soft, non-tender, nondistended. MUSCULOSKELETAL: No obvious deformities. No clubbing. No cyanosis. No edema. NEUROLOGICAL: Awake and alert. No obvious cranial nerve deficits. Motor grossly within normal limits. Normal speech. PSYCHIATRIC: Appropriate mood and affect; insight and judgment normal. Data Data Last Documented VS Vital Signs Date Time Temp Pulse Resp B/P (MAP) Pulse Ox O2 Delivery O2 Flow Rate FiO2 07/22/17 16:00 88 16 132/63 (86) 98 07/22/17 14:40 Room Air 07/22/17 12:46 97.4 Orders Orders Complete Blood Count With Diff (07/22/17 13:00) Comprehensive Metabolic Panel (07/22/17 13:00) Urinalysis - C+S If Indicated (07/22/17 13:00) Lipase (07/22/17 13:00) Act Partial Throm Time (Ptt) (07/22/17 13:00) Prothrombin Time / Inr (Pt) (07/22/17 13:00) Foot, Limited (2vws) (07/22/17 ) Electrocardiogram (07/22/17 ) Troponin I (07/22/17 14:33) Chest, Single Ap (07/22/17 ) Type And Screen (07/22/17 14:38) Blood Product Administration (07/22/17 14:38) Sodium Polysty Sulfate Liq (Kayexalate L (07/22/17 18:00) Insulin Human Regular Inj (Novolin R Inj (07/22/17 15:30) Dextrose 50% In Jean (Vial) Inj (D50w (Vi (07/22/17 15:30) Calcium Gluconate Inj (Calcium Gluconate (07/22/17 15:30) Albuterol Concentrated Neb (Albuterol Co (07/22/17 15:30) Admit To Inpatient (07/22/17 ) Code Status (07/22/17 15:55) Vital Signs (Adult) KEYSHAWN.Q1H (07/22/17 15:55) Activity Bed Rest (07/22/17 15:55) Elevate Head Of Bed (07/22/17 15:55) Bedside Glucose KEYSHAWN.BGM (07/22/17 15:55) Diet Npo (07/22/17 Dinner) Sodium Chloride 0.9% Flush (Ns Flush) (07/22/17 16:00) Sodium Chloride 0.9% Flush (Ns Flush) (07/22/17 21:00) Acetaminophen (Tylenol) (07/22/17 16:00) Ondansetron Inj (Zofran Inj) (07/22/17 16:00) Albuterol-Ipratropium Neb (Duoneb Neb) (07/22/17 16:00) Complete Blood Count With Diff (07/23/17 04:00) Comprehensive Metabolic Panel (07/23/17 04:00) Chest, Single Ap (07/23/17 ) Resp Oxygen Candido C Titrat 1-4 L (07/22/17 ) Consult Nephrology (07/22/17 ) Scorekeeper / Telemetry KEYSHAWN.Q8H (07/22/17 15:55) Scd Bilateral/Knee High KEYSHAWN.BID (07/22/17 15:55) ^ Initiate Protocol (07/22/17 15:55) Instruction (07/22/17 15:55) Misc Nursing Information (07/22/17 16:00) Chlorhexidine 2% Cloth (Chlorhexidine 2% (07/23/17 04:00) Chlorhexidine 2% Cloth (Chlorhexidine 2% (07/22/17 16:00) Mrsa Pcr Surveillance (07/22/17 15:55) Docusate Sodium-Senna (Velma-Colace) (07/22/17 21:00) Magnesium Hydroxide Liq (Milk Of Magnesi (07/22/17 16:00) Sennosides (Senokot) (07/22/17 16:00) Bisacodyl Supp (Dulcolax Supp) (07/22/17 16:00) Lactulose Liq (Lactulose Liq) (07/22/17 16:00) Inpatient Certification (07/22/17 ) Consult Gastroenterology (07/22/17 ) Sodium Chloride 0.9... W/Pantoprazole In (07/22/17 16:06) Admit Order (Ed Use Only) (07/22/17 16:06) Sodium Chloride 0.9... W/Pantoprazole In (07/22/17 17:05) Sodium Chloride 0.9... W/Pantoprazole In (07/22/17 18:05) Hgb & Hct (07/22/17 23:30) Hgb & Hct (07/23/17 11:30) Hgb & Hct (07/23/17 17:30) Labs Laboratory Tests Test 07/22/17 13:20 07/22/17 14:35 White Blood Count 30.3 TH/MM3 Red Blood Count 2.03 MIL/MM3 Hemoglobin 4.9 GM/DL Hematocrit 16.2 % Mean Corpuscular Volume 79.5 FL Mean Corpuscular Hemoglobin 24.1 PG Mean Corpuscular Hemoglobin Concent 30.3 % Red Cell Distribution Width 19.3 % Platelet Count 284 TH/MM3 Mean Platelet Volume 11.1 FL Neutrophils (%) (Auto) 92.3 % Lymphocytes (%) (Auto) 3.7 % Monocytes (%) (Auto) 3.8 % Eosinophils (%) (Auto) 0.0 % Basophils (%) (Auto) 0.2 % Neutrophils # (Auto) 27.9 TH/MM3 Lymphocytes # (Auto) 1.1 TH/MM3 Monocytes # (Auto) 1.1 TH/MM3 Eosinophils # (Auto) 0.0 TH/MM3 Basophils # (Auto) 0.1 TH/MM3 CBC Comment AUTO DIFF Differential Comment AUTO DIFF CONFIRMED Platelet Estimate NORMAL Platelet Morphology Comment ENLARGED Target Cells 1+ Ovalocytes 1+ Blood Urea Nitrogen 117 MG/DL Creatinine 8.55 MG/DL Random Glucose 415 MG/DL Total Protein 6.6 GM/DL Albumin 2.1 GM/DL Calcium Level 9.5 MG/DL Alkaline Phosphatase 175 U/L Aspartate Amino Transf (AST/SGOT) 14 U/L Alanine Aminotransferase (ALT/SGPT) 16 U/L Total Bilirubin 0.5 MG/DL Sodium Level 139 MEQ/L Potassium Level 6.7 MEQ/L Chloride Level 104 MEQ/L Carbon Dioxide Level 19.7 MEQ/L Anion Gap 15 MEQ/L Estimat Glomerular Filtration Rate 6 ML/MIN Troponin I 0.03 NG/ML Lipase 165 U/L Prothrombin Time 17.1 SEC Prothromb Time International Ratio 1.7 RATIO Activated Partial Thromboplast Time 28.0 SEC MDM Medical Decision Making Medical Screen Exam Complete: Yes Emergency Medical Condition: Yes Interpretation(s) EKG: NSR 82bpm. Normal axis. Q wave V2. 1mm ST elevation III. 0.5mm ST depression in I, V6. Differential Diagnosis GI bleed vs. ACS vs. hyperkalemia Narrative Course 72yo F with generalized weakness and hematemesis and black stool for 3 days. BP and HR normal at this time. Hemaprompt positive. Given protonix. Labs reviewed, leukocytosis at 30.3. H/H low at 4.9/16.2. Ordered 4 units and transfuse 2 units now. Hyperkalemia at 6.7. Ordered hyperkalemic medications. Glucose is elevated at 415. BUN/creatinine is more elevated than baseline at 117/8.55. I discussed with industrial engineering manager Dr. Castanon who came to evaluate the patient and will arrange for hemodialysis now. Discussed with Dr. Álvarez and accepted to his service. EKG is concerning for demand ischemia since hemoglobin is so low. Pt is not having any chest pain at this time. Troponin is 0.03. CXR showed cardiomegaly with slight interstitial prominence. Xray right foot showed soft tissue ulceration first MTP joint with regional soft tissue air. Very small erosion in the medial base of proximal phalanx appears chronic. No findings of osteomyelitis. Critical Care Narrative Aggregate critical care time was 50 minutes. Time to perform other separately billable procedures was not included in the critical care time. My time did not include minutes spent treating any other patients simultaneously or on activities that did not directly contribute to the patient's treatment. The services I provided to this patient were to treat and/or prevent clinically significant deterioration that could result in: cardiovascular collapse or . I provided critical care services requiring my management, as noted below: Chart data review, documentation time, medication orders and management, vital sign assessments/reviewing monitor data, ordering and reviewing lab tests, ordering and interpreting/reviewing x-rays and diagnostic studies, care of the patient and discussion of the patient with the admitting physicians. HemaPrompt Point of Care Internal Pos. & Neg. Controls: Passed Fecal Specimen Occult Blood: Positive Diagnosis Primary Impression: GI bleed Qualified Codes: K92.2 - Gastrointestinal hemorrhage, unspecified Admitting Information Admitting Physician Requests: Norma Powers DO Jul 22, 2017 14:37
[2017-07-22 14:54] LABS: ALKALINE PHOSPHATASE 175 U/L (45-117); ALT (GPT) 16 U/L (10-53); ANION GAP 15 MEQ/L (5-15); AST (GOT) 14 U/L (15-37); BICARBONATE 19.7 MEQ/L (21.0-32.0); BLOOD UREA NITROGEN 117 MG/DL (7-18); CHLORIDE 104 MEQ/L (98-107); GLOMERULAR FILTRATION RATE 6 ML/MIN (>89); SODIUM (NA) 139 MEQ/L (136-145); TOTAL BILIRUBIN ADULT 0.5 MG/DL (0.2-1.0)
[2017-07-22 15:00] LABS: POTASSIUM 6.7 MEQ/L (3.5-5.1)
[2017-07-22 15:10] LABS: OVALOCYTES 1+ (NORMAL); PLATELET ESTIMATE SMEAR NORMAL (NORMAL); PLATELET MORPHOLOGY ENLARGED (NORMAL); SCAN/DIFF AUTO DIFF CONFIRMED; TARGET CELLS 1+ (NORMAL)
--- NOTE | 2017-07-22 15:15 | RADRPT ---
EXAM DATE/TIME: 07/22/2017 14:44 [facility] COMPARISON: CHEST SINGLE AP, August 12, 2014, 20:37. INDICATIONS : Cough 2 weeks. Infection in bottom of right foot. MEDICAL HISTORY : Hypertension. Seizures. SURGICAL HISTORY : Unobtainable. ENCOUNTER: Initial ACUITY: 2 weeks PAIN SCORE: 0/10 LOCATION: Bilateral chest FINDINGS: A single view of the chest demonstrates cardiomegaly with interstitial prominence. Increased pulmonar y vascularity. The cardiomediastinal contours are unremarkable. Osseous structures are intact. CONCLUSION: Cardiomegaly with slight interstitial prominence. Jl Talbert MD on July 22, 2017 at 15:12 Board Certified Radiologist. This report was verified electronically.
--- NOTE | 2017-07-22 15:24 | RADRPT ---
EXAM DATE/TIME: 07/22/2017 14:46 [facility] COMPARISON: No previous studies available for comparison. INDICATIONS : Infection bottom of right foot for 2 weeks. MEDICAL HISTORY : Unobtainable. SURGICAL HISTORY : Unobtainable. ENCOUNTER: Initial ACUITY: 2 weeks PAIN SCORE: 3/10 LOCATION: Right Bottom of foot. FINDINGS: Two view examination of the right foot demonstrates diffuse osseous demineralization. Ulceration is i dentified subjacent to the first MTP joint with regional air. There is a very small erosion along the medial base of the proximal phalanx of the first ray which appears chronic. Otherwise, cortices are intact with no findings of osteomyelitis. CONCLUSION: 1. Soft tissue ulceration subjacent to the first MTP joint with regional soft tissue air. 2. Very small erosion in the medial base of the proximal phalanx of the first ray is well corticated and appears chronic. Otherwise, cortices are intact with no findings of osteomyelitis Epifanio Segal MD on July 22, 2017 at 15:19 Board Certified Radiologist. This report was verified electronically.
[2017-07-22] MEDS ORDERED: DEXTROSE 50% IN WATER 50 ML VIAL(D50) IV PUSH ONE (15:30)
[2017-07-22] MEDS ORDERED: RESP: ALBUTEROL CONC 2.5 MG/0.5 ML NEB INH ONE (15:30)
[2017-07-22] MEDS ORDERED: CALCIUM GLUCONATE 10% 1 GM/10 ML VIAL IV PUSH ONE (15:30)
[2017-07-22] MEDS ORDERED: INSULIN HUMAN REGULAR 1,000 UNITS/10 ML VIAL IV PUSH ONE (15:30)
[2017-07-22 15:35] LABS: INTERNATIONAL NORMALIZED RATIO 1.7 RATIO; PROTHROMBIN TIME - PATIENT 17.1 SEC (9.8-11.6)
[2017-07-22] MEDS ORDERED: BISACODYL 10 MG SUPP RECTAL PRN (16:00)
[2017-07-22] MEDS ORDERED: SODIUM CHLORIDE 0.9% FLUSH 10 ML FLUSH IV FLUSH PRN ×2 (16:00→16:30)
[2017-07-22] MEDS ORDERED: CHLORHEXIDINE GLUCONATE 2 % 1 PACK (2 CLOTHS) TOP PRN (16:00)
[2017-07-22] MEDS ORDERED: SENNOSIDES 8.6 MG TAB PO PRN (16:00)
[2017-07-22] MEDS ORDERED: LACTULOSE SYRUP 20 GM/30 ML CUP PO PRN (16:00)
[2017-07-22] MEDS ORDERED: MISCELLANEOUS NURSING INFORMATION XX SCH (16:00)
[2017-07-22] MEDS ORDERED: ONDANSETRON HCL 4 MG/2 ML VIAL IV PUSH PRN ×2 (16:00→16:30)
[2017-07-22] MEDS ORDERED: MAGNESIUM HYDROXIDE SUSP 30 ML CUP PO PRN (16:00)
[2017-07-22] MEDS ORDERED: RESP: ALBUTEROL 2.5 MG/IPRATROPIUM 0.5 MG NEB (PRN) INH (16:00)
[2017-07-22] MEDS ORDERED: PANTOPRAZOLE INJ 80 MG in SODIUM CHLORIDE 0.9% INJ 100 ML IV SCH (16:06)
[2017-07-22] MEDS ORDERED: PANTOPRAZOLE INJ 80 MG in SODIUM CHLORIDE 0.9% INJ 35 ML IV ONE ×2 (16:06→17:05)
[2017-07-22] MEDS ORDERED: SODIUM BICARBONATE 8.4% SOLN 50 MEQ/50 ML VIAL IV ONE (16:15)
[2017-07-22] MEDS ORDERED: SODIUM CHLOR 0.9% 1000 ML INJ 1,000 ML IV PRN (16:21)
[2017-07-22] MEDS ORDERED: SODIUM CHLOR 0.9% 1000 ML INJ 1,000 ML OTHER PRN ×2 (16:21)
--- NOTE | 2017-07-22 16:21 | PD.CONS ---
HPI Service Nephrology Consult Requested By Dr. Ball Reason for Consult ESRD Primary Care Physician No Primary Care Physician History of Present Illness Patient is 72-year-old female with history of end-stage renal disease, diabetes, hypertension who presented with nausea, vomiting and diarrhea she states that her stools were black and she has vomitus which was dark in color patient goes on Saturday, Saturday and Saturday and follows with Dr. Buchanan, she could not do her dialysis and today her potassium is 6.7, ER is getting her calcium and medications D50 insulin Review of Systems Constitutional: COMPLAINS OF: Fatigue Gastrointestinal: COMPLAINS OF: Abdominal pain, Nausea, Vomiting Musculoskeletal: COMPLAINS OF: Joint pain, Muscle aches, Stiffness, Joint Swelling Neurologic: COMPLAINS OF: Abnormal gait Past Family Social History 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 Past Medical History Diabetes Hypertension Anemia GERD Hypothyroidism Secondary hyperparathyroidism Osteoarthritis Past Surgical History History of toe amputation AV fistula left forearm Partial hysterectomy Reported Medications Reported Meds & Active Scripts Active Nephro-Jammie Rx (Vitamin B Cmplx/Vit C/Folic AC) 1 Tab 1 Tab PO DAILY Remeron (Mirtazapine) 15 Mg Tab 15 Mg PO HS Aspir-81 (Aspirin) 81 Mg Tabdr 81 Mg PO DAILY Levothyroxine (Levothyroxine Sodium) 75 Mcg Tab 75 Mcg PO DAILY Lantus Solostar Pen Inj (Insulin Glargine) 300 Unit/3 Ml Pen 10 Units SQ HS Amlodipine (Amlodipine Besylate) 10 Mg Tab 10 Mg PO DAILY Lisinopril 20 Mg Tab 20 Mg PO DIRECTED Proair Hfa 8.5 GM Inh (Albuterol Sulfate) 90 Mcg/Act Aer 2 Puff INH Q4-6H PRN 108 mcg/actuation Reported Hydroxyzine HCl 25 Mg Tab 25 Mg PO HS Active Ordered Medications Current Medications Medications (Trade) Dose Ordered Sig/Rita Route Start Time Stop Time Status Last Admin (Kayexalate Liq) 15 gm QID PO 07/22/17 18:00 07/23/17 13:01 (NS Flush) 2 ml UNSCH PRN IV FLUSH 07/22/17 16:00 (NS Flush) 2 ml BID IV FLUSH 07/22/17 21:00 (Tylenol) 650 mg Q6H PRN PO 07/22/17 16:00 (Zofran Inj) 4 mg Q6H PRN IV PUSH 07/22/17 16:00 (Duoneb Neb) 1 ampule Q2HR NEB PRN INH 07/22/17 16:00 Miscellaneous Information 1 Q361D XX 07/22/17 16:00 (Chlorhexidine 2% Cloth) 3 pack Taper DAILY@04 TOP 07/23/17 04:00 07/19/18 03:59 (Chlorhexidine 2% Cloth) 3 pack UNSCH PRN TOP 07/22/17 16:00 (Velma-Colace) 1 tab BID PO 07/22/17 21:00 (Milk Of Magnesia Liq) 30 ml Q12H PRN PO 07/22/17 16:00 (Senokot) 17.2 mg Q12H PRN PO 07/22/17 16:00 (Dulcolax Supp) 10 mg DAILY PRN RECTAL 07/22/17 16:00 (Lactulose Liq) 30 ml DAILY PRN PO 07/22/17 16:00 Pantoprazole Sodium 80 mg/ Sodium Chloride 100 ml @ 10 mls/hr Q10H IV 07/22/17 16:06 Pantoprazole Sodium 80 mg/ Sodium Chloride 35 ml @ 420 mls/hr Q5M ONCE IV 07/22/17 17:05 07/22/17 17:09 UNV Pantoprazole Sodium 80 mg/ Sodium Chloride 100 ml @ 10 mls/hr Q10H IV 07/22/17 18:05 UNV (Sodium Bicarbonate 8.4% Inj) 50 meq STAT ONCE IV 07/22/17 16:15 07/22/17 16:16 UNV Family History Noncontributory Social History Denies smoking or alcohol Physical Exam Vital Signs Vital Signs Date Time Temp Pulse Resp B/P (MAP) Pulse Ox O2 Delivery O2 Flow Rate FiO2 07/22/17 14:40 90 17 97 Room Air 07/22/17 12:46 97.4 89 16 145/67 (93) 95 Physical Exam GENERAL: Well-nourished, well-developed patient. SKIN: Warm and dry. HEAD: Normocephalic. EYES: No scleral icterus. No injection or drainage. NECK: Supple, trachea midline. No JVD or lymphadenopathy. CARDIOVASCULAR: Regular rate and rhythm without murmurs, gallops, or rubs. RESPIRATORY: Breath sounds equal bilaterally. No accessory muscle use. GASTROINTESTINAL: Abdomen soft, non-tender, nondistended. EXTREMITIES: No cyanosis, or edema. AV fistula left forearm NEUROLOGICAL: Awake, alert, and oriented x 3. Non-focal. Laboratory Laboratory Tests Test 07/22/17 13:20 07/22/17 14:35 White Blood Count 30.3 Red Blood Count 2.03 Hemoglobin 4.9 Hematocrit 16.2 Mean Corpuscular Volume 79.5 Mean Corpuscular Hemoglobin 24.1 Mean Corpuscular Hemoglobin Concent 30.3 Red Cell Distribution Width 19.3 Platelet Count 284 Mean Platelet Volume 11.1 Neutrophils (%) (Auto) 92.3 Lymphocytes (%) (Auto) 3.7 Monocytes (%) (Auto) 3.8 Eosinophils (%) (Auto) 0.0 Basophils (%) (Auto) 0.2 Neutrophils # (Auto) 27.9 Lymphocytes # (Auto) 1.1 Monocytes # (Auto) 1.1 Eosinophils # (Auto) 0.0 Basophils # (Auto) 0.1 CBC Comment AUTO DIFF Differential Comment AUTO DIFF CONFIRMED Platelet Estimate NORMAL Platelet Morphology Comment ENLARGED Target Cells 1+ Ovalocytes 1+ Blood Urea Nitrogen 117 Creatinine 8.55 Random Glucose 415 Total Protein 6.6 Albumin 2.1 Calcium Level 9.5 Alkaline Phosphatase 175 Aspartate Amino Transf (AST/SGOT) 14 Alanine Aminotransferase (ALT/SGPT) 16 Total Bilirubin 0.5 Sodium Level 139 Potassium Level 6.7 Chloride Level 104 Carbon Dioxide Level 19.7 Anion Gap 15 Estimat Glomerular Filtration Rate 6 Troponin I 0.03 Lipase 165 Prothrombin Time 17.1 Prothromb Time International Ratio 1.7 Activated Partial Thromboplast Time 28.0 Result Diagram: 07/22/17 1320 07/22/17 1320 Imaging Last Impressions Foot X-Ray 07/22/17 0000 Signed Impressions: Service Date/Time: Saturday, July 22, 2017 14:46 - CONCLUSION: 1. Soft tissue ulceration subjacent to the first MTP joint with regional soft tissue air. 2. Very small erosion in the medial base of the proximal phalanx of the first ray is well corticated and appears chronic. Otherwise, cortices are intact with no findings of osteomyelitis Epifanio Segal MD Chest X-Ray 07/22/17 0000 Signed Impressions: Service Date/Time: Saturday, July 22, 2017 14:44 - CONCLUSION: Cardiomegaly with slight interstitial prominence. Jl Talbert MD Assessment and Plan Problem List: (1) ESRD (end stage renal disease) on dialysis ICD Codes: N18.6 - End stage renal failure on dialysis; Z99.2 - Dependence on renal dialysis Status: Chronic Plan: Patient has hyperkalemia and today is her dialysis. We will arrange for hemodialysis can give her packed red blood cells with dialysis continue to monitor (2) GI bleed ICD Codes: K92.2 - Gastrointestinal hemorrhage, unspecified Status: Acute Plan: GI consult pending (3) Anemia ICD Codes: D64.9 - Anemia, unspecified Status: Acute Plan: Low hemoglobin needs to follow (4) Diabetes mellitus ICD Codes: E11.9 - Type 2 diabetes mellitus without complications Status: Chronic Plan: Continue to monitor Problem Qualifiers (1) Diabetes mellitus: Kandi Castanon MD Jul 22, 2017 16:21
[2017-07-22] MEDS ORDERED: HEPARIN SODIUM - IV 10,000 UNITS/10 ML VIAL PRN (16:30)
[2017-07-22] MEDS ORDERED: ACETAMINOPHEN 325 MG TAB PO PRN (16:30)
[2017-07-22] MEDS ORDERED: NITROGLYCERIN 0.4 MG SL 25 TABS/BTL SL PRN (16:30)
[2017-07-22] MEDS ORDERED: HEPARIN SODIUM - IV 10,000 UNITS/10 ML VIAL IV FLUSH PRN (16:30)
[2017-07-22] MEDS ORDERED: diphenhydrAMINE HCL 25 MG CAP PO PRN (16:30)
[2017-07-22] MEDS ORDERED: cloNIDine HCL 0.1 MG TAB PO PRN (16:30)
[2017-07-22] MEDS ORDERED: GENTAMICIN SULFATE (DIALYSIS USE ONLY) 20 MG/2 ML VIAL OTHER PRN (16:30)
[2017-07-22] MEDS ORDERED: ALBUMIN 25% INJ 100 ML IV PRN (16:30)
[2017-07-22] MEDS ORDERED: MANNITOL 12.5 GM/50 ML VIAL IV PRN (16:30)
--- NOTE | 2017-07-22 17:03 | HHI.HP ---
HPI Service Critical Care Medicine Primary Care Physician No Primary Care Physician Admission Diagnosis GI bleed, hyperkalemia Diagnosis: Chief Complaint: Generalized weakness, black tarry stools Travel History International Travel<30 Days: No Contact w/Intl Traveler <30 Da: No Traveled to Known Affected Are: No History of Present Illness History of Present Illness 72-year-old female with a medical history significant for end- stage renal disease on hemodialysis, hypertension who was brought to the ER with nausea vomiting and black tarry stools which have been going on for about a week. She is usually dialyzed on Saturday and Fridays and follows with Dr. Buchanan. She missed her hemodialysis session today due to significant weakness. Patient was brought to the ER by EMS and was found to have a hemoglobin of 4.9 as well as hyperkalemia with potassium 6.7. She was not hypotensive. She complained of generalized weakness otherwise some shortness of breath. Denied any chest pain. Denied any fever or chills. She was given medications for hyperkalemia by ER physician and 3 units PRBCs were ordered for her anemia. Patient was accepted for admission by critical care medicine service. Nephrology was also contacted and Dr. Castanon is arranging for hemodialysis. When I evaluated the patient in the ER she was laying in the ER stretcher complaining of feeling thirsty. She did not wish to keep her O2 nasal cannula on. She was maintaining her O2 sats and blood pressure. History was obtained by reviewing records, discussion with patient and her family members as well as ER physician and nursing staff. ROS - General Review of Systems Constitutional: COMPLAINS OF: Fatigue Gastrointestinal: COMPLAINS OF: Abdominal pain, Nausea, Vomiting Musculoskeletal: COMPLAINS OF: Joint pain, Muscle aches, Stiffness, Joint Swelling Neurologic: COMPLAINS OF: Abnormal gait PFSH Past Family Social History 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 Past Medical History Diabetes Hypertension Anemia GERD Hypothyroidism Secondary hyperparathyroidism Osteoarthritis Past Surgical History History of toe amputation AV fistula left forearm Partial hysterectomy Reported Medications Reported Meds & Active Scripts Active Nephro-Jammie Rx (Vitamin B Cmplx/Vit C/Folic AC) 1 Tab 1 Tab PO DAILY Remeron (Mirtazapine) 15 Mg Tab 15 Mg PO HS Aspir-81 (Aspirin) 81 Mg Tabdr 81 Mg PO DAILY Levothyroxine (Levothyroxine Sodium) 75 Mcg Tab 75 Mcg PO DAILY Lantus Solostar Pen Inj (Insulin Glargine) 300 Unit/3 Ml Pen 10 Units SQ HS Amlodipine (Amlodipine Besylate) 10 Mg Tab 10 Mg PO DAILY Lisinopril 20 Mg Tab 20 Mg PO DIRECTED Proair Hfa 8.5 GM Inh (Albuterol Sulfate) 90 Mcg/Act Aer 2 Puff INH Q4-6H PRN 108 mcg/actuation Reported Hydroxyzine HCl 25 Mg Tab 25 Mg PO HS Active Ordered Medications Current Medications Medications (Trade) Dose Ordered Sig/Rita Route Start Time Stop Time Status Last Admin (Kayexalate Liq) 15 gm QID PO 07/22/17 18:00 07/23/17 13:01 (NS Flush) 2 ml UNSCH PRN IV FLUSH 07/22/17 16:00 (NS Flush) 2 ml BID IV FLUSH 07/22/17 21:00 (Tylenol) 650 mg Q6H PRN PO 07/22/17 16:00 (Zofran Inj) 4 mg Q6H PRN IV PUSH 07/22/17 16:00 (Duoneb Neb) 1 ampule Q2HR NEB PRN INH 07/22/17 16:00 Miscellaneous Information 1 Q361D XX 07/22/17 16:00 (Chlorhexidine 2% Cloth) 3 pack Taper DAILY@04 TOP 07/23/17 04:00 07/19/18 03:59 (Chlorhexidine 2% Cloth) 3 pack UNSCH PRN TOP 07/22/17 16:00 (Velma-Colace) 1 tab BID PO 07/22/17 21:00 (Milk Of Magnesia Liq) 30 ml Q12H PRN PO 07/22/17 16:00 (Senokot) 17.2 mg Q12H PRN PO 07/22/17 16:00 (Dulcolax Supp) 10 mg DAILY PRN RECTAL 07/22/17 16:00 (Lactulose Liq) 30 ml DAILY PRN PO 07/22/17 16:00 Pantoprazole Sodium 80 mg/ Sodium Chloride 100 ml @ 10 mls/hr Q10H IV 07/22/17 16:06 Pantoprazole Sodium 80 mg/ Sodium Chloride 35 ml @ 420 mls/hr Q5M ONCE IV 07/22/17 17:05 07/22/17 17:09 UNV Pantoprazole Sodium 80 mg/ Sodium Chloride 100 ml @ 10 mls/hr Q10H IV 07/22/17 18:05 UNV (Sodium Bicarbonate 8.4% Inj) 50 meq STAT ONCE IV 07/22/17 16:15 07/22/17 16:16 UNV Family History Noncontributory Social History Denies smoking or alcohol Physical Exam Vital Signs Vital Signs Date Time Temp Pulse Resp B/P (MAP) Pulse Ox O2 Delivery O2 Flow Rate FiO2 07/22/17 16:00 88 16 132/63 (86) 98 07/22/17 15:00 84 16 138/99 (112) 98 07/22/17 14:40 90 17 97 Room Air 07/22/17 12:46 97.4 89 16 145/67 (93) 95 Physical Exam HEENT/Neuro: Pallor present, No icterus, tongue dry, EVELYNE, Awake alert oriented 3, nonfocal grossly, moving all 4 extremities Neck: No JVD Chest/pulmonary: CTA bilaterally Cardiovascular: S1-S2 regular no gallop or murmur GI/abdomen: Soft, nontender, bowel sounds present Extremities: Warm bilaterally, no edema. Left forearm AV fistula noted Laboratory Laboratory Tests Test 07/22/17 13:20 07/22/17 14:35 White Blood Count 30.3 Red Blood Count 2.03 Hemoglobin 4.9 Hematocrit 16.2 Mean Corpuscular Volume 79.5 Mean Corpuscular Hemoglobin 24.1 Mean Corpuscular Hemoglobin Concent 30.3 Red Cell Distribution Width 19.3 Platelet Count 284 Mean Platelet Volume 11.1 Neutrophils (%) (Auto) 92.3 Lymphocytes (%) (Auto) 3.7 Monocytes (%) (Auto) 3.8 Eosinophils (%) (Auto) 0.0 Basophils (%) (Auto) 0.2 Neutrophils # (Auto) 27.9 Lymphocytes # (Auto) 1.1 Monocytes # (Auto) 1.1 Eosinophils # (Auto) 0.0 Basophils # (Auto) 0.1 CBC Comment AUTO DIFF Differential Comment AUTO DIFF CONFIRMED Platelet Estimate NORMAL Platelet Morphology Comment ENLARGED Target Cells 1+ Ovalocytes 1+ Blood Urea Nitrogen 117 Creatinine 8.55 Random Glucose 415 Total Protein 6.6 Albumin 2.1 Calcium Level 9.5 Alkaline Phosphatase 175 Aspartate Amino Transf (AST/SGOT) 14 Alanine Aminotransferase (ALT/SGPT) 16 Total Bilirubin 0.5 Sodium Level 139 Potassium Level 6.7 Chloride Level 104 Carbon Dioxide Level 19.7 Anion Gap 15 Estimat Glomerular Filtration Rate 6 Troponin I 0.03 Lipase 165 Prothrombin Time 17.1 Prothromb Time International Ratio 1.7 Activated Partial Thromboplast Time 28.0 Result Diagram: 07/22/17 1320 07/22/17 1320 Imaging Laboratory Tests Test 07/22/17 13:20 07/22/17 14:35 White Blood Count 30.3 TH/MM3 Red Blood Count 2.03 MIL/MM3 Hemoglobin 4.9 GM/DL Hematocrit 16.2 % Mean Corpuscular Volume 79.5 FL Mean Corpuscular Hemoglobin 24.1 PG Mean Corpuscular Hemoglobin Concent 30.3 % Red Cell Distribution Width 19.3 % Platelet Count 284 TH/MM3 Mean Platelet Volume 11.1 FL Neutrophils (%) (Auto) 92.3 % Lymphocytes (%) (Auto) 3.7 % Monocytes (%) (Auto) 3.8 % Eosinophils (%) (Auto) 0.0 % Basophils (%) (Auto) 0.2 % Neutrophils # (Auto) 27.9 TH/MM3 Lymphocytes # (Auto) 1.1 TH/MM3 Monocytes # (Auto) 1.1 TH/MM3 Eosinophils # (Auto) 0.0 TH/MM3 Basophils # (Auto) 0.1 TH/MM3 CBC Comment AUTO DIFF Differential Comment AUTO DIFF CONFIRMED Platelet Estimate NORMAL Platelet Morphology Comment ENLARGED Target Cells 1+ Ovalocytes 1+ Blood Urea Nitrogen 117 MG/DL Creatinine 8.55 MG/DL Random Glucose 415 MG/DL Total Protein 6.6 GM/DL Albumin 2.1 GM/DL Calcium Level 9.5 MG/DL Alkaline Phosphatase 175 U/L Aspartate Amino Transf (AST/SGOT) 14 U/L Alanine Aminotransferase (ALT/SGPT) 16 U/L Total Bilirubin 0.5 MG/DL Sodium Level 139 MEQ/L Potassium Level 6.7 MEQ/L Chloride Level 104 MEQ/L Carbon Dioxide Level 19.7 MEQ/L Anion Gap 15 MEQ/L Estimat Glomerular Filtration Rate 6 ML/MIN Troponin I 0.03 NG/ML Lipase 165 U/L Prothrombin Time 17.1 SEC Prothromb Time International Ratio 1.7 RATIO Activated Partial Thromboplast Time 28.0 SEC Caprini VTE Risk Assessment Caprini VTE Risk Assessment: Mod/High Risk (score >= 2) VTE Pharm Contraindication: Active bleeding Caprini Risk Assessment Model Point Value = 1 Point Value = 2 Point Value = 3 Point Value = 5 Age 41-60 Minor surgery BMI > 25 kg/m2 Swollen legs Varicose veins or History of unexplained or recurrent spontaneous Oral contraceptives or hormone replacement Sepsis (< 1 month) Serious lung disease, including pneumonia (< 1 month) Abnormal pulmonary function Acute myocardial infarction Congestive heart failure (< 1 month) History of inflammatory bowel disease Medical patient at bed rest Age 61-74 Arthroscopic surgery Major open surgery (> 45 min) Laparoscopic surgery (> 45 min) Malignancy Confined to bed (> 72 hours) Immobilizing plaster cast Central venous access Age >= 75 History of VTE Family history of VTE Factor V Leiden Prothrombin 18695H Lupus anticoagulant Anticardiolipin antibodies Elevated serum homocysteine Heparin-induced thrombocytopenia Other congenital or acquired thrombophilia Stroke (< 1 month) Elective arthroplasty Hip, pelvis, or leg fracture Acute spinal cord injury (< 1 month) Prophylaxis Regimen Total Risk Factor Score Risk Level Prophylaxis Regimen 0-1 Low Early ambulation 2 Moderate Order ONE of the following: *Sequential Compression Device (SCD) *Heparin 5000 units SQ BID 3-4 Higher Order ONE of the following medications: *Heparin 5000 units SQ TID *Enoxaparin/Lovenox 40 mg SQ daily (WT < 150 kg, CrCl > 30 mL/min) *Enoxaparin/Lovenox 30 mg SQ daily (WT < 150 kg, CrCl > 10-29 mL/min) *Enoxaparin/Lovenox 30 mg SQ BID (WT < 150 kg, CrCl > 30 mL/min) AND/OR *Sequential Compression Device (SCD) 5 or more Highest Order ONE of the following medications: *Heparin 5000 units SQ TID (Preferred with Epidurals) *Enoxaparin/Lovenox 40 mg SQ daily (WT < 150 kg, CrCl > 30 mL/min) *Enoxaparin/Lovenox 30 mg SQ daily (WT < 150 kg, CrCl > 10-29 mL/min) *Enoxaparin/Lovenox 30 mg SQ BID (WT < 150 kg, CrCl > 30 mL/min) AND *Sequential Compression Device (SCD) Assessment and Plan Assessment and Plan Suspected upper GI bleed Acute blood loss anemia Chronic anemia Diabetes Hypertension GERD Hypothyroidism Secondary hyperparathyroidism Osteoarthritis Plan: Neuro: Follow neuro status, avoid sedatives and narcotics. Cardiovascular: Watch for hypotension. 3 unit PRBCs ordered to be transfused by ER physician. Hold antihypertensives at this time in view of GI bleed. Pulmonary: Supplemental O2 as needed. Bronchodilators when necessary. GI/liver: Nothing by mouth, GI consult requested for suspected upper GI bleed due to melena. Starting Protonix 80 mg IV bolus followed by 8 mg/h GTT. GI to decide timing for EGD/colonoscopy for further evaluation of melena. Renal/: Strict intake output, monitor and replete electro lites, follow BUN creatinine. Hemodialysis being arranged now by Dr. Castanon from nephrology was already evaluated the patient. 3 units PRBCs will be transfused with hemodialysis which I have personally spoken with the dialysis nurse to run PRBCs during dialysis. ID: No antibiotics indicated at this time. Endocrine: Sliding scale insulin for glycemic control. Will continue Levemir due to uncontrolled diabetes mellitus however may cut down dose as she is nothing by mouth. Heme: Follow CBC and coags. 3 units PRBCs to be transfused with hemodialysis now. Follow serial H&H. Transfuse to keep hemoglobin above 8 g percent. Vitamin K 10 mg IV piggyback now. Prophylaxis: Protonix gtt. ordered. SCDs. No subcutaneous heparin in view of for GI bleed. This patient remains critically ill with one or more organ systems which are or may become a threat to life. I have spent 60 minutes discontinuously in the care and management of this patient. This time is exclusive of procedures, and includes, but is not limited to, evaluation of the patient, review of the medical record, discussions with family, consultants, nursing staff, or respiratory therapy, and documentation in the medical record. Robb Mitchell MD Jul 22, 2017 17:03
[2017-07-22] MEDS ORDERED: GLUCAGON 1 MG/ML VIAL IM/SQ PRN (17:15)
[2017-07-22] MEDS ORDERED: PHYTONADIONE INJ 10 MG in SODIUM CHLORIDE 0.9% INJ 50 ML IV STA (17:16)
--- NOTE | 2017-07-22 18:12 | PD.CONS ---
HPI History of Present Illness This is a 72 year old F with medical history significant for ESRD on hemodialysis, receives hemodialysis Saturday, Saturday, and Saturday. Pt missed dialysis today due to weakness. She presented to the ER today with complaints of weakness over the past week, SOB, black stools for the past week, and occasional coffee ground emesis. She is unsure how many black stools she has had. Coffee ground emesis has been intermittent, she notices it only in the morning when she does have episodes. Pt denies any abdominal pain, BRB in stool. Denies history of GIB. She does report taking an increased amount of Ibuprofen over the past week due to aches in the morning. Takes a baby ASA daily. She can not remember when her last colonoscopy was. Last EGD was done during hospitalization (01/15/17) indication was anemia --> Schatzkis ring was found in the distal esophagus. The stomach was otherwise appeared normal. Normal duodenal mucosa in the bulb and second portion of the duodenum. Retroflexion was normal. Pt denies ETOH. Currently smokes, she reports occasional. Pt is currently receiving dialysis with 3 U PRBC, then she will be [place] [facility] [place]. H/H on admission 4.9/16.2, repeat to be drawn later tonight. (Rosario Silva) PFSH Past Medical History Diabetes Hypertension Anemia GERD Hypothyroidism Secondary hyperparathyroidism Osteoarthritis ESRD Past Surgical History AV fistula of L arm Toe amputation Partial hysterectomy (Rosario Silva) Coded Allergies: *MDRO Multi-Drug Resistant Organism (Verified Allergy, Unknown, 07/09/17) MRSA Review of Systems Constitutional: COMPLAINS OF: Fatigue, Chills, DENIES: Fever Gastrointestinal: COMPLAINS OF: Abdominal pain, Black stools, Nausea, Vomiting , DENIES: Bloody stools, Constipation, Diarrhea, Swelling of Abdomen (Rosario Silva) GI Exam Vitals I&O Vital Signs Date Time Temp Pulse Resp B/P (MAP) Pulse Ox O2 Delivery O2 Flow Rate FiO2 07/22/17 17:05 99.1 45 18 129/57 94 07/22/17 17:00 07/22/17 16:00 88 16 132/63 (86) 98 07/22/17 15:00 84 16 138/99 (112) 98 07/22/17 14:40 90 17 97 Room Air 07/22/17 12:46 97.4 89 16 145/67 (30) 95 Imaging Last Impressions Foot X-Ray 07/22/17 0000 Signed Impressions: Service Date/Time: Saturday, July 22, 2017 14:46 - CONCLUSION: 1. Soft tissue ulceration subjacent to the first MTP joint with regional soft tissue air. 2. Very small erosion in the medial base of the proximal phalanx of the first ray is well corticated and appears chronic. Otherwise, cortices are intact with no findings of osteomyelitis Epifanio Segal MD Chest X-Ray 07/22/17 0000 Signed Impressions: Service Date/Time: Saturday, July 22, 2017 14:44 - CONCLUSION: Cardiomegaly with slight interstitial prominence. Jl Talbert MD Laboratory Test 07/22/17 13:20 07/22/17 14:35 White Blood Count 30.3 TH/MM3 Red Blood Count 2.03 MIL/MM3 Hemoglobin 4.9 GM/DL Hematocrit 16.2 % Mean Corpuscular Volume 79.5 FL Mean Corpuscular Hemoglobin 24.1 PG Mean Corpuscular Hemoglobin Concent 30.3 % Red Cell Distribution Width 19.3 % Platelet Count 284 TH/MM3 Mean Platelet Volume 11.1 FL Neutrophils (%) (Auto) 92.3 % Lymphocytes (%) (Auto) 3.7 % Monocytes (%) (Auto) 3.8 % Eosinophils (%) (Auto) 0.0 % Basophils (%) (Auto) 0.2 % Neutrophils # (Auto) 27.9 TH/MM3 Lymphocytes # (Auto) 1.1 TH/MM3 Monocytes # (Auto) 1.1 TH/MM3 Eosinophils # (Auto) 0.0 TH/MM3 Basophils # (Auto) 0.1 TH/MM3 CBC Comment AUTO DIFF Differential Comment AUTO DIFF CONFIRMED Platelet Estimate NORMAL Platelet Morphology Comment ENLARGED Target Cells 1+ Ovalocytes 1+ Blood Urea Nitrogen 117 MG/DL Creatinine 8.55 MG/DL Random Glucose 415 MG/DL Total Protein 6.6 GM/DL Albumin 2.1 GM/DL Calcium Level 9.5 MG/DL Alkaline Phosphatase 175 U/L Aspartate Amino Transf (AST/SGOT) 14 U/L Alanine Aminotransferase (ALT/SGPT) 16 U/L Total Bilirubin 0.5 MG/DL Sodium Level 139 MEQ/L Potassium Level 6.7 MEQ/L Chloride Level 104 MEQ/L Carbon Dioxide Level 19.7 MEQ/L Anion Gap 15 MEQ/L Estimat Glomerular Filtration Rate 6 ML/MIN Troponin I 0.03 NG/ML Lipase 165 U/L Prothrombin Time 17.1 SEC Prothromb Time International Ratio 1.7 RATIO Activated Partial Thromboplast Time 28.0 SEC Physical Examination HEENT: Normocephalic; atraumatic CHEST: CTA CARDIAC: RRR ABDOMEN: Soft, nondistended, nontender; no hepatosplenomegaly; bowel sounds active x 4. EXTREMITIES: No clubbing, cyanosis, or edema. AV fistula left forearm SKIN: Normal; no rash; no jaundice. BLEACHER SULFITE PULP: No focal deficits; alert and oriented times three. (Rosario Silva) Assessment and Plan Plan Assessment: - Anemia- Microcytic, hypochromic. Likely multifactorial. Pt has ESRD and receives hemodialysis. Complaints of black stool for the past week with occasional coffee ground emesis. Last EGD (01/15/17) --> Schatzkis ring, otherwise normal. Denies history of PUD or GIB. Has been taking an increasing amount of Ibuprofen over the past week due to aches in the morning. Receiving hemodialysis with 3 U PRBCs at this time then she will be transferred [place] [facility] [place]. Currently on Protonix gtt. Will plan for EGD tomorrow. - ESRD- per attending- receiving hemodialysis right now Plan - EGD tomorrow - NPO after MN - Obtain consents - Monitor H/H - Transfuse as needed - Continue Protonix gtt - Supportive care - Further recommendations to follow based on results of above This patient has been seen and examined by myself and Dr. Quiles and this note is written on his behalf (Rosario Silva) Physician Comments Patient seen and examined Agree with above Continue with current supportive care Monitor labs EGD tomorrow (Monster Quiles MD) Rosario Silva Jul 22, 2017 18:12 Monster Quiles MD Jul 22, 2017 20:41
[2017-07-22] MEDS: GELATIN 12 MM/7 MM FOAM TOP PRN (18:57)
[2017-07-22] MEDS: EPOETIN ALFA 10,000 UNITS/ML VIAL IV PUSH PRN (18:57)
[2017-07-22] MEDS: MIRTAZAPINE 15 MG TAB PO SCH (21:00)
[2017-07-22] MEDS ORDERED: INSULIN DETEMIR 100 UNITS/ML VIAL SQ SCH (21:00)
[2017-07-22] MEDS: SODIUM POLYSTYRENE SULFONATE SUSP 15 GM/60 ML CUP PO SCH (21:00)
[2017-07-22] MEDS: DOCUSATE SODIUM 50 MG/SENNA 8.6 MG TAB PO SCH (21:00)
[2017-07-22] MEDS: hydrOXYzine HCL 25 MG TAB PO SCH (21:00)
[2017-07-22] MEDS: SODIUM CHLORIDE 0.9% FLUSH 10 ML FLUSH IV FLUSH SCH (21:01)
[2017-07-22] MEDS: PANTOPRAZOLE INJ 80 MG in SODIUM CHLORIDE 0.9% INJ 100 ML IV SCH (21:56)
[2017-07-22 22:29] LABS: HEMATOCRIT 25.1 % (35.0-46.0); REVIEW FLAG FINAL
[2017-07-22 23:32] LABS: APTT (PATIENT) 27.7 SEC (24.3-30.1); INTERNATIONAL NORMALIZED RATIO 1.7 RATIO; PROTHROMBIN TIME - PATIENT 17.1 SEC (9.8-11.6)
[2017-07-23] VITALS (17 sets, daily range): BP systolic 111–158; BP diastolic 53–81; PULSE 79–97; RESP 18–46; TEMP 97.9–99.1; O2SAT 96–100
[2017-07-23 03:40] LABS: AUTOMATED NEUTROPHIL # 28.9 TH/MM3 (1.8-7.7); BASOPHIL # 0.1 TH/MM3 (0-0.2); BASOPHIL % 0.4 % (0.0-2.0); EOSINOPHIL # 0.1 TH/MM3 (0-0.4); EOSINOPHIL % 0.3 % (0.0-4.0); HEMATOCRIT 23.8 % (35.0-46.0); LYMPH % 4.8 % (9.0-44.0); LYMPHOCYTE # 1.6 TH/MM3 (1.0-4.8); MEAN CELL VOLUME 78.9 FL (80.0-100.0); MEAN CORPUSCULAR HEMOGLOBIN 26.4 PG (27.0-34.0); MEAN CORPUSCULAR HGB CONC 33.4 % (32.0-36.0); NEUT % 87.5 % (16.0-70.0); PLATELET COUNT 257 TH/MM3 (150-450); RED BLOOD COUNT 3.01 MIL/MM3 (4.00-5.30); RED CELL DISTRIBUTION WIDTH 16.8 % (11.6-17.2)
[2017-07-23 03:44] LABS: HEMO FLAGS AUTO DIFF
[2017-07-23] MEDS: CHLORHEXIDINE GLUCONATE 2 % 1 PACK (2 CLOTHS) TOP SCH (04:00)
[2017-07-23 04:03] LABS: ALKALINE PHOSPHATASE 146 U/L (45-117); ALT (GPT) 13 U/L (10-53); ANION GAP 8 MEQ/L (5-15); AST (GOT) 13 U/L (15-37); BICARBONATE 31.1 MEQ/L (21.0-32.0); BLOOD UREA NITROGEN 71 MG/DL (7-18); CHLORIDE 105 MEQ/L (98-107); GLOMERULAR FILTRATION RATE 9 ML/MIN (>89); POTASSIUM 3.8 MEQ/L (3.5-5.1); SODIUM (NA) 144 MEQ/L (136-145); TOTAL BILIRUBIN ADULT 0.7 MG/DL (0.2-1.0)
[2017-07-23] MEDS: DEXTROSE 50% IN WATER 50 ML VIAL(D50) IV PRN ×3 (04:09→12:17)
[2017-07-23 04:20] LABS: BANDS 15 % (0-6); PLATELET ESTIMATE SMEAR NORMAL (NORMAL); PLATELET MORPHOLOGY NORMAL (NORMAL); POLYS (SEG NEUTROPHILS) 73 % (16-70); SCAN/DIFF FINAL DIFF MANUAL; WBC DIFF SAMPLE 100
[2017-07-23 04:21] LABS: DOHLE BODIES PRESENT (NONE SEEN); TOXIC GRANULATION 1+ (NORMAL)
--- NOTE | 2017-07-23 04:34 | RADRPT ---
EXAM DATE/TIME: 07/23/2017 03:30 [facility] COMPARISON: CHEST SINGLE AP, July 22, 2017, 14:44. INDICATIONS : Shortness of breath. MEDICAL HISTORY : Hypertension. Seizures. SURGICAL HISTORY : None. ENCOUNTER: Subsequent ACUITY: 2 days PAIN SCORE: 0/10 LOCATION: Bilateral chest FINDINGS: Cardiomegaly stable from prior. There is some mild indistinctness of the central bronchopulmonary ma rkings and mild peribronchial thickening. No peripheral infiltrates seen. Both hemidiaphragms will delineated. CONCLUSION: Stable appearance of cardiomegaly and central vascular engorgement. Praneeth Barrientos MD on July 23, 2017 at 4:32 Board Certified Radiologist. This report was verified electronically.
[2017-07-23] MEDS: LEVOTHYROXINE SODIUM 75 MCG TAB PO SCH (05:43)
[2017-07-23] MEDS: INSULIN ASPART SUPPLEMENTAL SCALE SQ SCH ×4 (05:44→17:45)
[2017-07-23] MEDS: PANTOPRAZOLE INJ 80 MG in SODIUM CHLORIDE 0.9% INJ 100 ML IV SCH ×2 (08:37→14:05)
[2017-07-23] MEDS: SODIUM CHLORIDE 0.9% FLUSH 10 ML FLUSH IV FLUSH SCH ×2 (08:38→20:16)
[2017-07-23] MEDS: SODIUM POLYSTYRENE SULFONATE SUSP 15 GM/60 ML CUP PO SCH ×2 (08:38→13:00)
[2017-07-23] MEDS: DOCUSATE SODIUM 50 MG/SENNA 8.6 MG TAB PO SCH ×2 (08:38→20:17)
[2017-07-23] MEDS: VITAMIN B CMPLX/VITC/FOLIC AC CAP PO SCH (08:38)
[2017-07-23] MEDS ORDERED: PHENYLEPH/NS 1000 MCG/10 ML SYR IV ONE (12:00)
[2017-07-23] MEDS ORDERED: LIDOCAINE HCL 1% PF 5 ML SYRINGE OTHER ONE (12:00)
[2017-07-23] MEDS ORDERED: ePHEDrine/NS 25 MG/5 ML SYRINGE IV ONE (12:00)
[2017-07-23] MEDS ORDERED: PROPOFOL 200 MG/20 ML AMP IV ONE (12:00)
--- NOTE | 2017-07-23 12:58 | EKG ---
Date Performed: 07/22/2017 Time Performed: 15:36:26 PTAGE: 72 years EKG: NORMAL Sinus rhythm Right axis deviation. Poor R wave progression. Cannot rule out septal infarct. Compared to PREVIOUS TRACING there is variation in the ST-T abnormalities and the axis. PREVIOUS TRA CIN01/13/2017 08.31 DOCTOR: Shahzad Pennington Interpretating Date/Time 07/23/2017 12:57:15
--- NOTE | 2017-07-23 13:18 | HHI.NPPN ---
Subjective History of Present Illness Patient is a 72-year-old with the GI bleed ESRD admitted Objective Data Data Vital Signs Date Time Temp Pulse Resp B/P (MAP) Pulse Ox O2 Delivery O2 Flow Rate FiO2 07/23/17 12:00 98.1 80 20 128/59 (82) 97 07/23/17 12:00 80 07/23/17 10:00 81 24 138/63 (88) 100 07/23/17 10:00 81 07/23/17 09:00 82 24 122/61 (81) 96 07/23/17 08:00 81 07/23/17 08:00 99.0 81 28 133/60 (84) 96 07/23/17 07:31 99 Nasal Cannula 2.00 07/23/17 06:00 98.3 82 25 158/72 (100) 100 07/23/17 06:00 82 07/23/17 05:00 79 27 130/60 (83) 100 07/23/17 04:00 99.1 83 39 148/67 (94) 98 07/23/17 04:00 83 07/23/17 03:00 86 39 114/68 (83) 97 07/23/17 02:00 87 46 111/54 (73) 99 07/23/17 02:00 87 07/23/17 01:00 90 28 113/53 (73) 96 07/23/17 00:00 89 07/23/17 00:00 98.8 89 36 137/81 (99) 100 07/22/17 22:00 97 07/22/17 21:35 100 Nasal Cannula 2.00 07/22/17 18:00 99.2 94 17 145/64 (91) 99 07/22/17 17:57 99.2 99 17 126/80 07/22/17 17:05 99.1 45 18 129/57 94 07/22/17 17:00 99.1 95 17 111/55 (73) 07/22/17 17:00 07/22/17 16:00 88 16 132/63 (86) 98 07/22/17 15:00 84 16 138/99 (112) 98 07/22/17 14:40 90 17 97 Room Air -: 07/23/17 0323 07/23/17 0323 Physical Exam General Appearance: Well Developed Neck Neck Exam: Neck Supple Pulmonary Resp Exam: Clear Bilaterally, Breath Sounds Equal Cardiology CV Exam: Regular, Normal Sinus Rhythm Gastrointestinal/Abdomen GI Exam: Soft, Non-Tender, Bowel Sounds Present Extremeties Extremities Exam: No Edema Assessment/Plan Problem List: (1) ESRD (end stage renal disease) on dialysis ICD Codes: N18.6 - End stage renal failure on dialysis; Z99.2 - Dependence on renal dialysis Status: Chronic Plan: Patient had hemodialysis yesterday with blood transfusion hemoglobin is 7.9 GI is planning to do endoscopy Continued to do dialysis on Saturday, Saturday and Saturday Continue to monitor hemoglobin (2) GI bleed ICD Codes: K92.2 - Gastrointestinal hemorrhage, unspecified Status: Acute Plan: GI following planning endoscopy (3) Anemia ICD Codes: D64.9 - Anemia, unspecified Status: Acute Plan: Low hemoglobin needs to follow (4) Diabetes mellitus ICD Codes: E11.9 - Type 2 diabetes mellitus without complications Status: Chronic Plan: Continue to monitor Problem Qualifiers (1) Diabetes mellitus: Kandi Castanon MD Jul 23, 2017 13:18
[2017-07-23 14:14] LABS: HEMATOCRIT 26.7 % (35.0-46.0)
[2017-07-23 14:17] LABS: REVIEW FLAG FINAL
--- NOTE | 2017-07-23 14:40 | HHI.CCPN ---
Subjective Remarks/Hospital Course Hospital Course: 72-year-old female with a medical history significant for end- stage renal disease on hemodialysis, hypertension who was brought to the ER with nausea vomiting and black tarry stools which have been going on for about a week. She is usually dialyzed on Saturday and Fridays and follows with Dr. Buchanan. She missed her hemodialysis session today due to significant weakness. Patient was brought to the ER by EMS and was found to have a hemoglobin of 4.9 as well as hyperkalemia with potassium 6.7. She was not hypotensive. She complained of generalized weakness otherwise some shortness of breath. Denied any chest pain. Denied any fever or chills. She was given medications for hyperkalemia by ER physician and 3 units PRBCs were ordered for her anemia. Patient was accepted for admission by critical care medicine service. Nephrology was also contacted and Dr. Castanon is arranging for hemodialysis. When I evaluated the patient in the ER she was laying in the ER stretcher complaining of feeling thirsty. She did not wish to keep her O2 nasal cannula on. She was maintaining her O2 sats and blood pressure. History was obtained by reviewing records, discussion with patient and her family members as well as ER physician and nursing staff. Subjective: 07/23: hypoglycemic overnight. plan for EGD today. Objective Vital Signs Date Time Temp Pulse Resp B/P (MAP) Pulse Ox O2 Delivery O2 Flow Rate FiO2 07/23/17 13:47 97.6 82 20 146/67 (93) 98 07/23/17 07:31 Nasal Cannula 2.00 Intake and Output 07/23/17 07/23/17 07/24/17 08:00 16:00 00:00 Intake Total 95.8 ml Output Total 0 ml Balance 95.8 ml Result Diagram: 07/23/17 1332 07/23/17 0323 Imaging Laboratory Tests Test 07/22/17 13:20 07/22/17 14:35 White Blood Count 30.3 TH/MM3 Red Blood Count 2.03 MIL/MM3 Hemoglobin 4.9 GM/DL Hematocrit 16.2 % Mean Corpuscular Volume 79.5 FL Mean Corpuscular Hemoglobin 24.1 PG Mean Corpuscular Hemoglobin Concent 30.3 % Red Cell Distribution Width 19.3 % Platelet Count 284 TH/MM3 Mean Platelet Volume 11.1 FL Neutrophils (%) (Auto) 92.3 % Lymphocytes (%) (Auto) 3.7 % Monocytes (%) (Auto) 3.8 % Eosinophils (%) (Auto) 0.0 % Basophils (%) (Auto) 0.2 % Neutrophils # (Auto) 27.9 TH/MM3 Lymphocytes # (Auto) 1.1 TH/MM3 Monocytes # (Auto) 1.1 TH/MM3 Eosinophils # (Auto) 0.0 TH/MM3 Basophils # (Auto) 0.1 TH/MM3 CBC Comment AUTO DIFF Differential Comment AUTO DIFF CONFIRMED Platelet Estimate NORMAL Platelet Morphology Comment ENLARGED Target Cells 1+ Ovalocytes 1+ Blood Urea Nitrogen 117 MG/DL Creatinine 8.55 MG/DL Random Glucose 415 MG/DL Total Protein 6.6 GM/DL Albumin 2.1 GM/DL Calcium Level 9.5 MG/DL Alkaline Phosphatase 175 U/L Aspartate Amino Transf (AST/SGOT) 14 U/L Alanine Aminotransferase (ALT/SGPT) 16 U/L Total Bilirubin 0.5 MG/DL Sodium Level 139 MEQ/L Potassium Level 6.7 MEQ/L Chloride Level 104 MEQ/L Carbon Dioxide Level 19.7 MEQ/L Anion Gap 15 MEQ/L Estimat Glomerular Filtration Rate 6 ML/MIN Troponin I 0.03 NG/ML Lipase 165 U/L Prothrombin Time 17.1 SEC Prothromb Time International Ratio 1.7 RATIO Activated Partial Thromboplast Time 28.0 SEC Objective Remarks HEENT/Neuro: Pallor present, No icterus, tongue dry, EVELYNE, Awake alert oriented 3, nonfocal grossly, moving all 4 extremities Neck: No JVD Chest/pulmonary: unlabored. nc o2. Cardiovascular: RRR GI/abdomen: Soft, nontender, Extremities: Warm bilaterally, no edema. Left forearm AV fistula noted A/P Assessment and Plan Assessment: 72yF ESRD with active GI bleed, severe anemia secondary to acute blood loss, and now severe hypoglycemia. will hold levemir. may need d10w infusion. f/u EGD. Suspected upper GI bleed Active GI bleeding Acute blood loss anemia Underlying Chronic anemia Diabetes Hypertension GERD Hypothyroidism Secondary hyperparathyroidism Osteoarthritis Acute hypoglycemia Plan: Neuro: Follow neuro status, avoid sedatives and narcotics. Cardiovascular: Watch for hypotension. 3 unit PRBCs ordered to be transfused by ER physician. Hold antihypertensives at this time in view of GI bleed. Pulmonary: Supplemental O2 as needed. Bronchodilators when necessary. GI/liver: Nothing by mouth, EGD today. GI following. on protonix drip. Renal/: Strict intake output, monitor and replete electro lites, follow BUN creatinine. Renal following for timing of IHD. ID: No antibiotics indicated at this time. Endocrine: hold levemir. intermittent d50w as needed. may need to start d10w. frequent glycemic checks. Heme: Follow CBC and coags. s/p 3 units prbc on admission with HD. Prophylaxis: Protonix gtt. ordered. SCDs. No subcutaneous heparin in view of for GI bleed. Leo Amos MD Jul 23, 2017 14:40
[2017-07-23] MEDS: DEXT 5%-NACL 0.9% 1000 ML INJ 1,000 ML IV SCH (15:00)
[2017-07-23] MEDS ORDERED: DO NOT ADM ANY ANTICOAGULANT DRUGS PRN (15:40)
[2017-07-23] MEDS ORDERED: PEG (High)/E-LYTE SOLN 4000 ML BTL PO ONE (16:15)
--- NOTE | 2017-07-23 16:16 | PD.PROCEDR ---
GI Procedure REFERRING PHYSICIAN Dr. garrett PROCEDURE PERFORMED EGD INDICATION FOR PROCEDURE Melena, anemia PROCEDURE: The procedure, risks and benefits were discussed with Ms. Bolivar and informed consent was obtained. Anesthesia sedated her with Diprivan. She was placed in the left lateral decubitus position. EGD: The Pentax videoscope was introduced through the oropharynx and advanced to the second portion of the duodenum under direct visualization. Retroflexion was performed in the stomach. FINDINGS: Esophagus this was unremarkable except for a Schatzki ring and this was mild to moderate Stomach there was a moderate size hiatal hernia otherwise gastric mucosa was unremarkable and within normal limits The duodenum this was normal ESTIMATED BLOOD LOSS: None SPECIMENS REMOVED: None COMPLICATIONS: None IMPRESSION: Schatzki ring Hiatal hernia PLAN: Supportive care Colonoscopy tomorrow Monster Quiles MD Jul 23, 2017 16:16
[2017-07-23 18:29] LABS: HEMATOCRIT 25.4 % (35.0-46.0)
[2017-07-23 18:36] LABS: REVIEW FLAG FINAL
[2017-07-23] MEDS: hydrOXYzine HCL 25 MG TAB PO SCH (20:17)
[2017-07-23] MEDS: MIRTAZAPINE 15 MG TAB PO SCH (20:17)
[2017-07-24] VITALS (18 sets, daily range): BP systolic 133–170; BP diastolic 61–91; PULSE 81–95; RESP 16–39; TEMP 98.3–102.4; O2SAT 94–100
[2017-07-24] MEDS: PANTOPRAZOLE INJ 80 MG in SODIUM CHLORIDE 0.9% INJ 100 ML IV SCH ×3 (03:43→20:30)
[2017-07-24] MEDS: CHLORHEXIDINE GLUCONATE 2 % 1 PACK (2 CLOTHS) TOP SCH (04:00)
[2017-07-24] MEDS: ACETAMINOPHEN 325 MG TAB PO PRN (04:35)
[2017-07-24] MEDS: INSULIN ASPART SUPPLEMENTAL SCALE SQ SCH ×4 (05:55→16:51)
[2017-07-24] MEDS: LEVOTHYROXINE SODIUM 75 MCG TAB PO SCH (06:00)
[2017-07-24] MEDS: DEXTROSE 50% IN WATER 50 ML VIAL(D50) IV PRN ×2 (06:19→06:20)
[2017-07-24 07:16] LABS: HEMATOCRIT 21.1 % (35.0-46.0); MEAN CELL VOLUME 80.5 FL (80.0-100.0); MEAN CORPUSCULAR HEMOGLOBIN 26.9 PG (27.0-34.0); MEAN CORPUSCULAR HGB CONC 33.5 % (32.0-36.0); PLATELET COUNT 231 TH/MM3 (150-450); RED BLOOD COUNT 2.62 MIL/MM3 (4.00-5.30); RED CELL DISTRIBUTION WIDTH 17.6 % (11.6-17.2); WHITE BLOOD COUNT 31.9 TH/MM3 (4.0-11.0)
[2017-07-24 07:27] LABS: REVIEW FLAG FINAL
[2017-07-24 07:46] LABS: BICARBONATE 27.9 MEQ/L (21.0-32.0); POTASSIUM 4.3 MEQ/L (3.5-5.1)
[2017-07-24] MEDS: SODIUM CHLORIDE 0.9% FLUSH 10 ML FLUSH IV FLUSH SCH ×2 (08:06→21:00)
[2017-07-24] MEDS: DOCUSATE SODIUM 50 MG/SENNA 8.6 MG TAB PO SCH ×2 (08:06→21:00)
[2017-07-24] MEDS: VITAMIN B CMPLX/VITC/FOLIC AC CAP PO SCH (08:06)
[2017-07-24] MEDS: DEXT 5%-NACL 0.9% 1000 ML INJ 1,000 ML IV SCH (08:06)
--- NOTE | 2017-07-24 10:27 | HHI.NPPN ---
Subjective History of Present Illness Patient is a 72-year-old with the GI bleed ESRD admitted Objective Data Data Vital Signs Date Time Temp Pulse Resp B/P (MAP) Pulse Ox O2 Delivery O2 Flow Rate FiO2 07/24/17 10:00 85 07/24/17 08:13 97 Nasal Cannula 2.00 07/24/17 08:00 81 07/24/17 08:00 100.2 81 25 133/63 (86) 95 07/24/17 06:30 98.7 07/24/17 06:00 84 07/24/17 04:01 102.4 91 36 137/91 (106) 95 07/24/17 04:00 91 07/24/17 02:00 88 07/24/17 00:00 90 07/24/17 00:00 98.3 07/24/17 00:00 90 39 149/71 (97) 100 07/23/17 22:00 94 07/23/17 20:00 92 07/23/17 20:00 99.1 92 32 130/61 (84) 98 07/23/17 18:00 93 07/23/17 17:00 97 07/23/17 16:15 98 25 168/77 (107) 98 Nasal Cannula 2 07/23/17 16:00 97.9 97 18 152/67 (95) 96 07/23/17 16:00 101 16 178/79 (112) 94 Nasal Cannula 2 07/23/17 15:45 103 12 149/69 (95) 96 Nasal Cannula 2 07/23/17 15:43 98.1 99 12 141/64 (89) 99 Nasal Cannula 2 07/23/17 15:12 97.6 82 20 146/67 (93) 98 07/23/17 13:47 97.6 82 20 146/67 (93) 98 07/23/17 12:00 98.1 80 20 128/59 (82) 97 07/23/17 12:00 80 -: 07/24/17 0544 07/24/17 0544 Microbiology 07/24/17 Gram Stain, Received Pending 07/24/17 Wound Culture, Received Pending Physical Exam General Appearance: Well Developed Neck Neck Exam: Neck Supple Pulmonary Resp Exam: Clear Bilaterally, Breath Sounds Equal Cardiology CV Exam: Regular, Normal Sinus Rhythm Gastrointestinal/Abdomen GI Exam: Soft, Non-Tender, Bowel Sounds Present Extremeties Extremities Exam: No Edema Assessment/Plan Problem List: (1) ESRD (end stage renal disease) on dialysis ICD Codes: N18.6 - End stage renal failure on dialysis; Z99.2 - Dependence on renal dialysis Status: Chronic Plan: Patient had HD Saturday, due today refused Colonoscopy follow Hb (2) GI bleed ICD Codes: K92.2 - Gastrointestinal hemorrhage, unspecified Status: Acute Plan: GI consult seen EGD report (3) Anemia ICD Codes: D64.9 - Anemia, unspecified Status: Acute Plan: Low hemoglobin needs to follow (4) Diabetes mellitus ICD Codes: E11.9 - Type 2 diabetes mellitus without complications Status: Chronic Plan: Continue to monitor Problem Qualifiers (1) Diabetes mellitus: Kandi Castanon MD Jul 24, 2017 10:27
--- NOTE | 2017-07-24 10:29 | HHI.CCPN ---
Subjective Remarks/Hospital Course 72-year-old female with a medical history significant for end- stage renal disease on hemodialysis, hypertension who was brought to the ER with nausea vomiting and black tarry stools which have been going on for about a week. She is usually dialyzed on Saturday and Fridays and follows with Dr. Buchanan. She missed her hemodialysis session today due to significant weakness. Patient was brought to the ER by EMS and was found to have a hemoglobin of 4.9 as well as hyperkalemia with potassium 6.7. She was not hypotensive. She complained of generalized weakness otherwise some shortness of breath. Denied any chest pain. Denied any fever or chills. She was given medications for hyperkalemia by ER physician and 3 units PRBCs were ordered for her anemia. Patient was accepted for admission by critical care medicine service. Nephrology was also contacted and Dr. Castanon is arranging for hemodialysis. When I evaluated the patient in the ER she was laying in the ER stretcher complaining of feeling thirsty. She did not wish to keep her O2 nasal cannula on. She was maintaining her O2 sats and blood pressure. History was obtained by reviewing records, discussion with patient and her family members as well as ER physician and nursing staff. 07/23: hypoglycemic overnight. plan for EGD today. Subjective: 07/24: Hemodynamically stable. Status post debridement of right plantar aspect of foot. Will be transfuse 1 additional unit PRBC today. Plan for colonoscopy tomorrow. Objective Vital Signs Date Time Temp Pulse Resp B/P (MAP) Pulse Ox O2 Delivery O2 Flow Rate FiO2 07/24/17 10:00 85 07/24/17 08:13 97 Nasal Cannula 2.00 07/24/17 08:00 100.2 25 133/63 (86) Intake and Output 07/24/17 07/24/17 07/25/17 08:00 16:00 00:00 Intake Total 2750.5 ml Output Total 0 ml Balance 2750.5 ml Result Diagram: 07/24/17 0544 07/24/17 0544 Other Results Microbiology Date/Time Source Procedure Growth Status 07/24/17 07:38 Wound Foot Gram Stain Pending Received 07/24/17 07:38 Wound Foot Wound Culture Pending Received Imaging Last Impressions Chest X-Ray 07/23/17 0000 Signed Impressions: Service Date/Time: Sunday, July 23, 2017 03:30 - CONCLUSION: Stable appearance of cardiomegaly and central vascular engorgement. Praneeth Barrientos MD Foot X-Ray 07/22/17 0000 Signed Impressions: Service Date/Time: Saturday, July 22, 2017 14:46 - CONCLUSION: 1. Soft tissue ulceration subjacent to the first MTP joint with regional soft tissue air. 2. Very small erosion in the medial base of the proximal phalanx of the first ray is well corticated and appears chronic. Otherwise, cortices are intact with no findings of osteomyelitis Epifanio Segal MD Objective Remarks GENERAL: 72 AA Female currently resting in bed on nasal cannula SKIN: Warm and dry. HEAD: Atraumatic. Normocephalic. EYES: Pupils equal and round about 3 mm bilaterally and reactive. No scleral icterus. No injection or drainage. ENT: No nasal bleeding or discharge. Mucous membranes pink and moist. NECK: Trachea midline. No JVD. CARDIOVASCULAR: Regular rate and rhythm. S1, S2. No S4. Without murmur RESPIRATORY: Clear to auscultation. Breath sounds equal bilaterally. GASTROINTESTINAL: Abdomen soft, non-tender, nondistended. Hepatic and splenic margins not palpable. MUSCULOSKELETAL: First phalanx/plantar ulcer currently wrapped in Kerlix on right lower extremity.. Positive thrill left upper extremity NEUROLOGICAL: Awake and alert. No obvious cranial nerve deficits. Motor grossly within normal limits. Five out of 5 muscle strength in the arms and legs. Normal speech. A/P Assessment and Plan Neuro/Psych: History of cataracts Depression Continue mirtazapine 15 mg at night and hydroxyzine 85 mg at night for depression/anxiety Acetaminophen for fever/pain 1-10 CV: History of hypertension Currently on D5 normal saline at 50 cc an hour Holding home medications of amlodipine 10 mg daily lisinopril 20 mg daily light of hypotension Holding home medications aspirin 81 mg a light of GI bleeding Resp: Nasal cannula to maintain saturations greater than equal to 90% Incentive spirometry while awake GI: Gastroesophageal reflux disease Hiatal hernia History of hepatitis C Schatzki ring EGD 07/23 with Schatzki ring mild to moderate and moderate hiatal hernia. No active bleeding Currently on pantoprazole 8 mg an hour. Recheck hemoglobin 1800hours. Plan colonoscopy 07/25 : Discontinue Schultz catheter Endo: Diabetes mellitus Hypothyroidism Secondary hyperparathyroidism Holding insulin glargine 10 units at night. Currently on Aspart sliding scale insulin with Accu-Cheks every 6 hours Continue levothyroxine 75 mics grams daily for hypothyroidism Renal: Diabetic nephropathy on hemodialysis Saturday/Saturday/Saturday with Dr. Dewayne Castanon following.. Hemodialysis yesterday Heme: Acute blood loss anemia Anemia of chronic kidney disease Elevated INR Leukocytosis Transfused 4 units PRBCs On Epogen 10,000 units with hemodialysis Repeat coags and CBC in AM. Hemoglobin at 1800 hrs. ID: Status post irrigation debridement by podiatry today of right foot Wound cultures pending Blood cultures 2 ordered today for fever FEN: Replace electrolytes as clinically indicated MSK: Osteoarthritis Out of bed/PT evaluate and treat Access - Utilize peripheral IV. Central line if indicated Prophylaxis - GI - pantoprazole drip - DVT - SCD/holding pharmacological prophylaxis in light of GI bleeding Level III follow-up Cricket Arnold MD Jul 24, 2017 10:29
--- NOTE | 2017-07-24 13:46 | PD.CONS ---
History of Present Illness Service Foot and Ankle Surgery/Podiatry Consult Requested By Reason for Consult Right foot sub met 1 ulcer Primary Care Physician No Primary Care Physician Diagnoses: History of Present Illness Patient is a 72-year-old female with end-stage renal disease and diabetes. She was admitted to the hospital for black stools and coffee-ground emesis. Upon admission she was noted to have a right hallux ulcer. She states she sees Dr. Espinosa for wound care, however she has not had a chance to see him. 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 She denies any drainage to the area. She does not dressed the area she has not had treatment for the ulcer in quite some time. Review of Systems Constitutional: COMPLAINS OF: Fatigue Eyes: DENIES: Blurred vision Respiratory: DENIES: Cough Cardiovascular: DENIES: Chest pain Gastrointestinal: COMPLAINS OF: Abdominal pain, Black stools Musculoskeletal: DENIES: Joint pain, Muscle aches Hematologic/lymphatic: DENIES: Lymphadenopathy Psychiatric: DENIES: Confusion Past Family Social History 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 Active Ordered Medications Current Medications Medications (Trade) Dose Ordered Sig/Rita Route Start Time Stop Time Status Last Admin (NS Flush) 2 ml UNSCH PRN IV FLUSH 07/22/17 16:00 (NS Flush) 2 ml BID IV FLUSH 07/22/17 21:00 07/24/17 08:06 (Tylenol) 650 mg Q6H PRN PO 07/22/17 16:00 07/24/17 04:35 (Zofran Inj) 4 mg Q6H PRN IV PUSH 07/22/17 16:00 (Duoneb Neb) 1 ampule Q2HR NEB PRN INH 07/22/17 16:00 Miscellaneous Information 1 Q361D XX 07/22/17 16:00 (Chlorhexidine 2% Cloth) 3 pack Taper DAILY@04 TOP 07/23/17 04:00 07/19/18 03:59 07/23/17 04:00 (Chlorhexidine 2% Cloth) 3 pack UNSCH PRN TOP 07/22/17 16:00 (Velma-Colace) 1 tab BID PO 07/22/17 21:00 07/24/17 08:06 (Milk Of Magnesia Liq) 30 ml Q12H PRN PO 07/22/17 16:00 (Senokot) 17.2 mg Q12H PRN PO 07/22/17 16:00 (Dulcolax Supp) 10 mg DAILY PRN RECTAL 07/22/17 16:00 (Lactulose Liq) 30 ml DAILY PRN PO 07/22/17 16:00 Pantoprazole Sodium 80 mg/ Sodium Chloride 100 ml @ 10 mls/hr Q10H IV 07/22/17 18:05 07/24/17 03:43 Sodium Chloride 1,000 ml @ 0 mls/hr Q0M PRN OTHER 07/22/17 16:21 (Heparin Inj) 8,000 units UNSCH PRN IV FLUSH 07/22/17 16:30 Sodium Chloride 1,000 ml @ 200 mls/hr Q5H PRN IV 07/22/17 16:21 Sodium Chloride 1,000 ml @ 0 mls/hr Q0M PRN OTHER 07/22/17 16:21 (Mannitol Inj) 12.5 gm UNSCH PRN IV 07/22/17 16:30 Albumin Human 100 ml @ 60 mls/hr UNSCH PRN IV 07/22/17 16:30 (NS Flush) 5 ml UNSCH PRN IV FLUSH 07/22/17 16:30 (Heparin Inj) UNSCH PRN .XX 07/22/17 16:30 (Gentamicin (Dialysis) Inj) 20 mg UNSCH PRN OTHER 07/22/17 16:30 (Zofran Inj) 4 mg UNSCH PRN IV PUSH 07/22/17 16:30 (Tylenol) 650 mg UNSCH PRN PO 07/22/17 16:30 (Benadryl) 25 mg UNSCH PRN PO 07/22/17 16:30 (Nitrostat Sl) 0.4 mg UNSCH PRN SL 07/22/17 16:30 (Catapres) 0.1 mg UNSCH PRN PO 07/22/17 16:30 (Epogen Inj) 10,000 units UNSCH PRN IV PUSH 07/22/17 16:30 07/24/17 15:10 (Gelfoam 12 Mm/7 Mm Top) 1 foam UNSCH PRN TOP 07/22/17 16:30 07/24/17 15:09 (Atarax) 25 mg HS PO 07/22/17 21:00 07/23/17 20:17 (Synthroid) 75 mcg DAILY@0600 PO 07/23/17 06:00 07/23/17 05:43 (Remeron) 15 mg HS PO 07/22/17 21:00 07/23/17 20:17 (Nephrocaps) 1 cap DAILY PO 07/23/17 09:00 07/24/17 08:06 (Levemir Inj) 10 units HS SQ 07/22/17 21:00 Future Hold 07/22/17 21:00 (NovoLOG SUPPLEMENTAL SCALE) 1 Q6HR SQ 07/22/17 18:00 07/24/17 00:00 (D50w (Vial) Inj) 25 ml UNSCH PRN IV 07/22/17 17:15 07/24/17 06:20 (Glucagon Inj) 1 mg UNSCH PRN IM/SQ 07/22/17 17:15 Dextrose/Sodium Chloride 1,000 ml @ 50 mls/hr Q20H IV 07/23/17 15:00 07/24/17 08:06 Miscellaneous Information ALL NURSING DEPARTME... UNSCH PRN .XX 07/23/17 15:40 07/24/17 15:39 Physical Exam Vital Signs Vital Signs Date Time Temp Pulse Resp B/P (MAP) Pulse Ox O2 Delivery O2 Flow Rate FiO2 07/24/17 11:31 99.8 90 16 156/61 100 07/24/17 11:16 99.8 90 18 156/71 99 07/24/17 10:00 85 07/24/17 08:13 97 Nasal Cannula 2.00 07/24/17 08:00 81 07/24/17 08:00 100.2 81 25 133/63 (86) 95 07/24/17 06:30 98.7 07/24/17 06:00 84 07/24/17 04:01 102.4 91 36 137/91 (106) 95 07/24/17 04:00 91 07/24/17 02:00 88 07/24/17 00:00 90 07/24/17 00:00 98.3 07/24/17 00:00 90 39 149/71 (97) 100 07/23/17 22:00 94 07/23/17 20:00 92 07/23/17 20:00 99.1 92 32 130/61 (84) 98 07/23/17 18:00 93 07/23/17 17:00 97 07/23/17 16:15 98 25 168/77 (107) 98 Nasal Cannula 2 07/23/17 16:00 97.9 97 18 152/67 (95) 96 07/23/17 16:00 101 16 178/79 (112) 94 Nasal Cannula 2 07/23/17 15:45 103 12 149/69 (95) 96 Nasal Cannula 2 07/23/17 15:43 98.1 99 12 141/64 (89) 99 Nasal Cannula 2 07/23/17 15:12 97.6 82 20 146/67 (93) 98 07/23/17 13:47 97.6 82 20 146/67 (93) 98 Physical Exam GENERAL: In no apparent distress. SKIN: Right sub met 1 ulcer. HEAD: Atraumatic. EYES: Pupils equal round and reactive. ENT: Airway patent. RESPIRATORY: No labored breathing noted MUSCULOSKELETAL: No calf tenderness. Negative Homans sign bilaterally. NEUROLOGICAL: Awake and alert. Normal speech. lower extremity exam: Vascular: DP palpable/PT nonpalpable to bilateral lower extremity. Capillary refill time within normal limits to digits x5 right foot and digits x4 to left. mild edema noted to right sub met 1. Neuro: No gross sensation abnormalities. No hyper allergies none noted. Pinpoint sensation diminished Derm: Right sub met 1 ulcer measuring 0.5 x 0.5 with purulent drainage with milliliters total upon debridement. No continued drainage with compression. Positive probe to bone 1 centimeter depth noted. No velma wound erythema noted. MSK: Plantar flexed first ray noted to right foot. 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 Laboratory Laboratory Tests Test 07/23/17 17:20 07/24/17 05:44 Hemoglobin 8.4 7.0 Hematocrit 25.4 21.1 White Blood Count 31.9 Red Blood Count 2.62 Mean Corpuscular Volume 80.5 Mean Corpuscular Hemoglobin 26.9 Mean Corpuscular Hemoglobin Concent 33.5 Red Cell Distribution Width 17.6 Platelet Count 231 Mean Platelet Volume 10.7 Blood Urea Nitrogen 76 Creatinine 6.84 Random Glucose 29 Calcium Level 8.6 Sodium Level 140 Potassium Level 4.3 Chloride Level 101 Carbon Dioxide Level 27.9 Anion Gap 11 Estimat Glomerular Filtration Rate 7 Date/Time Source Procedure Growth Status 07/24/17 12:48 Blood Peripheral Aerobic Blood Culture Pending Received 07/24/17 12:48 Blood Peripheral Anaerobic Blood Culture Pending Received 07/24/17 07:38 Wound Foot Gram Stain Pending Received 07/24/17 07:38 Wound Foot Wound Culture Pending Received Result Diagram: 07/24/17 0544 07/24/17 0544 Imaging Last 72 hours Impressions Chest X-Ray 07/23/17 0000 Signed Impressions: Service Date/Time: Sunday, July 23, 2017 03:30 - CONCLUSION: Stable appearance of cardiomegaly and central vascular engorgement. Praneeth Barrientos MD Foot X-Ray 07/22/17 0000 Signed Impressions: Service Date/Time: Saturday, July 22, 2017 14:46 - CONCLUSION: 1. Soft tissue ulceration subjacent to the first MTP joint with regional soft tissue air. 2. Very small erosion in the medial base of the proximal phalanx of the first ray is well corticated and appears chronic. Otherwise, cortices are intact with no findings of osteomyelitis Epifanio Segal MD Chest X-Ray 07/22/17 0000 Signed Impressions: Service Date/Time: Saturday, July 22, 2017 14:44 - CONCLUSION: Cardiomegaly with slight interstitial prominence. Jl Talbert MD Assessment and Plan Assessment and Plan 72-year-old female with right hallux sub met 1 ulcer stable in nature Patient examined and treated with all questions answered Bedside debridement performed a right hallux ulcer, consent obtained bedside with nurse present, time-out performed prior to procedure wound cultures taken bedside X-rays reviewed cortical erosions noted to first metatarsal proximal phalangeal joint Recommend MRI to rule out chronic osteomyelitis since patient does have an ulcer which probes to bone and has been present for an indefinite amount of time Recommend ID consult Patient would benefit from santyl application with wet to dry dressing No surgical intervention planned at this time however will await MRI results as patient may benefit from long-term antibiotics, would appreciate infectious disease recommendation Apply santal with a wet-to-dry dressing to sub met 1 daily Will follow up MRI results Pooja Galvez DPM Jul 24, 2017 13:46
[2017-07-24] MEDS: GELATIN 12 MM/7 MM FOAM TOP PRN (15:09)
[2017-07-24] MEDS: EPOETIN ALFA 10,000 UNITS/ML VIAL IV PUSH PRN (15:10)
--- NOTE | 2017-07-24 15:29 | HHI.GIFU ---
Subjective Remarks Pt sleeping, awakens to verbal commands. Currently receiving dialysis. Pt had EGD done yesterday and was supposed to have colonoscopy today but she refused the prep. Stool continues to be loose, and per nurse is black and tarry. (Rosario Silva) Objective Vitals I&O Vital Signs Date Time Temp Pulse Resp B/P (MAP) Pulse Ox O2 Delivery O2 Flow Rate FiO2 07/24/17 11:31 99.8 90 16 156/61 100 07/24/17 11:16 99.8 90 18 156/71 99 07/24/17 10:00 85 07/24/17 08:13 97 Nasal Cannula 2.00 07/24/17 08:00 81 07/24/17 08:00 100.2 81 25 133/63 (86) 95 07/24/17 06:30 98.7 07/24/17 06:00 84 07/24/17 04:01 102.4 91 36 137/91 (106) 95 07/24/17 04:00 91 07/24/17 02:00 88 07/24/17 00:00 90 07/24/17 00:00 98.3 07/24/17 00:00 90 39 149/71 (97) 100 07/23/17 22:00 94 07/23/17 20:00 92 07/23/17 20:00 99.1 92 32 130/61 (84) 98 07/23/17 18:00 93 07/23/17 17:00 97 07/23/17 16:15 98 25 168/77 (107) 98 Nasal Cannula 2 07/23/17 16:00 97.9 97 18 152/67 (95) 96 07/23/17 16:00 101 16 178/79 (112) 94 Nasal Cannula 2 07/23/17 15:45 103 12 149/69 (95) 96 Nasal Cannula 2 07/23/17 15:43 98.1 99 12 141/64 (89) 99 Nasal Cannula 2 I/O 07/23/17 07/23/17 07/23/17 07/24/17 07/24/17 07/24/17 07:00 15:00 23:00 07:00 15:00 23:00 Intake Total 95.8 ml 100 ml 1435.3 ml 2750.5 ml 470 ml Output Total 0 ml 0 ml 2000 ml Balance 95.8 ml 100 ml 1435.3 ml 2750.5 ml -1530 ml Intake Oral 20 ml 960 ml 2030 ml IV Total 75.8 ml 100 ml 275.3 ml 720.5 ml Packed Cells 400 ml Blood Product IV Normal Saline Flush 70 ml Other 200 ml Output Urine Total 0 ml 0 ml Hemodialysis 2000 ml # Voids 0 # Bowel Movements 2 1 Laboratory Laboratory Tests Test 07/23/17 17:20 07/24/17 05:44 Hemoglobin 8.4 7.0 Hematocrit 25.4 21.1 White Blood Count 31.9 Red Blood Count 2.62 Mean Corpuscular Volume 80.5 Mean Corpuscular Hemoglobin 26.9 Mean Corpuscular Hemoglobin Concent 33.5 Red Cell Distribution Width 17.6 Platelet Count 231 Mean Platelet Volume 10.7 Blood Urea Nitrogen 76 Creatinine 6.84 Random Glucose 29 Calcium Level 8.6 Sodium Level 140 Potassium Level 4.3 Chloride Level 101 Carbon Dioxide Level 27.9 Anion Gap 11 Estimat Glomerular Filtration Rate 7 Date/Time Source Procedure Growth Status 07/24/17 12:48 Blood Peripheral Aerobic Blood Culture Pending Received 07/24/17 12:48 Blood Peripheral Anaerobic Blood Culture Pending Received 07/24/17 07:38 Wound Foot Gram Stain - Final Resulted 07/24/17 07:38 Wound Foot Wound Culture Pending Resulted Imaging Last Impressions Chest X-Ray 07/23/17 0000 Signed Impressions: Service Date/Time: Sunday, July 23, 2017 03:30 - CONCLUSION: Stable appearance of cardiomegaly and central vascular engorgement. Praneeth Barrientos MD Foot X-Ray 07/22/17 0000 Signed Impressions: Service Date/Time: Saturday, July 22, 2017 14:46 - CONCLUSION: 1. Soft tissue ulceration subjacent to the first MTP joint with regional soft tissue air. 2. Very small erosion in the medial base of the proximal phalanx of the first ray is well corticated and appears chronic. Otherwise, cortices are intact with no findings of osteomyelitis Epifanio Segal MD Physical Exam HEENT: Normocephalic; atraumatic CHEST: CTA CARDIAC: RRR ABDOMEN: Soft, nondistended, nontender; no hepatosplenomegaly; bowel sounds active x 4. EXTREMITIES: No clubbing, cyanosis, or edema. SKIN: Normal; no rash; no jaundice. STENCILER: No focal deficits; alert and oriented times three. (Rosario Silva) Assessment and Plan Plan Assessment: - Anemia- Microcytic, hypochromic. Likely multifactorial. Pt has ESRD and receives hemodialysis. Complaints of black stool for the past week with occasional coffee ground emesis. Denies history of PUD or GIB. Has been taking an increasing amount of Ibuprofen over the past week due to aches in the morning. EGD (07/23) --> Schatzki ring mild to moderate. Hiatal hernia. Pt was supposed to have a colonoscopy today, however, she refused the prep. H/H continues to drop. Currently 7.0/21.1 S/P a fourth unit of PRBCs received today. Continues to have loose, black, tarry stools per the nurse. Currently on Protonix gtt. - ESRD- per attending- receiving hemodialysis right now. Epoetin. Plan - Colonoscopy tomorrow - Clear liquids today - NPO after MN - 2 SSE for prep - Obtain consents - Monitor H/H - Transfuse as needed - Continue Protonix gtt - Supportive care - Further recommendations to follow based on results of above This patient has been seen and examined by myself and Dr. Quiles and this note is written on his behalf (Rosario Silva) Physician Comments Patient seen and examined Agree with above Continue with current supportive care Monitor labs Patient has changed her mind several times with regards to pursuing a colonoscopy and is not being very cooperative at this point I had a lengthy discussion with her daughter Isabella who will speak to her mother in order to pursue the endoscopy but was requesting that she be allowed to eat for one day and then we can prep her and so at this point the plan would be to prep on and proceed with colonoscopy on Saturday (Monster Quiles MD) Rosario Silva Jul 24, 2017 15:29 Monster Quiles MD Jul 24, 2017 20:30
[2017-07-24] MEDS ORDERED: Vancomycin Consult Pharmacy 1 EA OTHER SCH (16:00)
--- NOTE | 2017-07-24 16:35 | PD.WCN.NOT ---
Wound Consult Additional Information: Patient not seen, Podiatry consulted. Doctor Lenny, Podiatry saw patient and wrote orders for R foot ulcer. Wound care inpatient is signing off. Whitney Virgen [facility] Jul 24, 2017 16:35
[2017-07-24] MEDS: PIPERACIL-TAZO 2.25 GM PREMIX 50 ML IV SCH (16:51)
[2017-07-24] MEDS ORDERED: VANCOMYCIN INJ 1,250 MG in SODIUM CHLOR 0.9% 250 ML INJ 250 ML IV ONE (17:00)
[2017-07-24 20:31] LABS: HEMATOCRIT 27.6 % (35.0-46.0)
[2017-07-24 20:41] LABS: REVIEW FLAG FINAL
[2017-07-24] MEDS: hydrOXYzine HCL 25 MG TAB PO SCH (21:00)
[2017-07-24] MEDS: MIRTAZAPINE 15 MG TAB PO SCH (21:00)
[2017-07-25] VITALS (12 sets, daily range): BP systolic 112–150; BP diastolic 55–74; PULSE 79–97; RESP 18–38; TEMP 100.2–101.4; O2SAT 92–100
[2017-07-25] MEDS: INSULIN ASPART SUPPLEMENTAL SCALE SQ SCH ×5 (00:52→23:37)
[2017-07-25] MEDS: ACETAMINOPHEN 325 MG TAB PO PRN ×2 (00:59→17:50)
[2017-07-25] MEDS: PIPERACIL-TAZO 2.25 GM PREMIX 50 ML IV SCH ×3 (02:00→17:50)
[2017-07-25] MEDS: PANTOPRAZOLE INJ 80 MG in SODIUM CHLORIDE 0.9% INJ 100 ML IV SCH ×2 (03:59→14:59)
[2017-07-25] MEDS: CHLORHEXIDINE GLUCONATE 2 % 1 PACK (2 CLOTHS) TOP SCH (04:00)
[2017-07-25] MEDS: LEVOTHYROXINE SODIUM 75 MCG TAB PO SCH (06:51)
[2017-07-25 07:01] LABS: AUTOMATED NEUTROPHIL # 30.2 TH/MM3 (1.8-7.7); BASOPHIL # 0.1 TH/MM3 (0-0.2); BASOPHIL % 0.2 % (0.0-2.0); EOSINOPHIL # 0.1 TH/MM3 (0-0.4); EOSINOPHIL % 0.4 % (0.0-4.0); HEMATOCRIT 24.7 % (35.0-46.0); LYMPH % 3.2 % (9.0-44.0); LYMPHOCYTE # 1.1 TH/MM3 (1.0-4.8); MEAN CELL VOLUME 82.4 FL (80.0-100.0); MEAN CORPUSCULAR HEMOGLOBIN 26.6 PG (27.0-34.0); MEAN CORPUSCULAR HGB CONC 32.3 % (32.0-36.0); MONO % 8.8 % (0.0-8.0); NEUT % 87.4 % (16.0-70.0); PLATELET COUNT 250 TH/MM3 (150-450); RED CELL DISTRIBUTION WIDTH 17.7 % (11.6-17.2); WHITE BLOOD COUNT 34.5 TH/MM3 (4.0-11.0)
[2017-07-25 07:10] LABS: APTT (PATIENT) 28.5 SEC (24.3-30.1); INTERNATIONAL NORMALIZED RATIO 1.4 RATIO; PROTHROMBIN TIME - PATIENT 14.2 SEC (9.8-11.6)
[2017-07-25 07:15] LABS: HEMO FLAGS AUTO DIFF
[2017-07-25] MEDS: DEXTROSE 50% IN WATER 50 ML VIAL(D50) IV PRN ×2 (07:22→08:04)
[2017-07-25 07:39] LABS: BICARBONATE 28.1 MEQ/L (21.0-32.0); POTASSIUM 3.3 MEQ/L (3.5-5.1)
[2017-07-25 08:48] LABS: BANDS 11 % (0-6); NEUTROPHIL # MANUAL DIFF 29.7 TH/MM3 (1.8-7.7); POLYS (SEG NEUTROPHILS) 75 % (16-70); WBC DIFF SAMPLE 100
[2017-07-25 08:49] LABS: PLATELET ESTIMATE SMEAR NORMAL (NORMAL); PLATELET MORPHOLOGY NORMAL (NORMAL); SCAN/DIFF FINAL DIFF MANUAL; TARGET CELLS 1+ (NORMAL); TOXIC GRANULATION 1+ (NORMAL)
[2017-07-25 08:50] LABS: OVALOCYTES 1+ (NORMAL)
[2017-07-25] MEDS: DOCUSATE SODIUM 50 MG/SENNA 8.6 MG TAB PO SCH ×2 (09:22→22:59)
[2017-07-25] MEDS: DEXT 5%-NACL 0.9% 1000 ML INJ 1,000 ML IV SCH (09:23)
[2017-07-25] MEDS: VITAMIN B CMPLX/VITC/FOLIC AC CAP PO SCH (09:23)
[2017-07-25] MEDS: SODIUM CHLORIDE 0.9% FLUSH 10 ML FLUSH IV FLUSH SCH ×2 (09:23→22:53)
[2017-07-25] MEDS: COLLAGENASE OINT 30 GM TUBE TOPICAL SCH (09:23)
--- NOTE | 2017-07-25 10:48 | HHI.CCPN ---
Subjective Remarks/Hospital Course 72-year-old female with a medical history significant for end- stage renal disease on hemodialysis, hypertension who was brought to the ER with nausea vomiting and black tarry stools which have been going on for about a week. She is usually dialyzed on Saturday and Fridays and follows with Dr. Buchanan. She missed her hemodialysis session today due to significant weakness. Patient was brought to the ER by EMS and was found to have a hemoglobin of 4.9 as well as hyperkalemia with potassium 6.7. She was not hypotensive. She complained of generalized weakness otherwise some shortness of breath. Denied any chest pain. Denied any fever or chills. She was given medications for hyperkalemia by ER physician and 3 units PRBCs were ordered for her anemia. Patient was accepted for admission by critical care medicine service. Nephrology was also contacted and Dr. Castanon is arranging for hemodialysis. When I evaluated the patient in the ER she was laying in the ER stretcher complaining of feeling thirsty. She did not wish to keep her O2 nasal cannula on. She was maintaining her O2 sats and blood pressure. History was obtained by reviewing records, discussion with patient and her family members as well as ER physician and nursing staff. 07/23: hypoglycemic overnight. plan for EGD today. 07/24: Hemodynamically stable. Status post debridement of right plantar aspect of foot. Will be transfuse 1 additional unit PRBC today. Plan for colonoscopy tomorrow. Subjective 07/25: Episodic hypoglycemia overnight. Remains on D5. Patient family brought in eggs and sausage per report. Objective Vital Signs Date Time Temp Pulse Resp B/P (MAP) Pulse Ox O2 Delivery O2 Flow Rate FiO2 07/25/17 06:00 80 07/25/17 04:00 100.2 28 117/55 (75) 96 07/24/17 19:51 Nasal Cannula 2.00 Intake and Output 07/25/17 07/25/17 07/26/17 08:00 16:00 00:00 Intake Total 960 ml Balance 960 ml Result Diagram: 07/25/17 0504 07/25/17 0534 Other Results Date/Time Source Procedure Growth Status 07/24/17 12:48 Blood Peripheral Aerobic Blood Culture Pending Received 07/24/17 12:48 Blood Peripheral Anaerobic Blood Culture Pending Received 07/24/17 12:41 Blood Peripheral Aerobic Blood Culture Pending Received 07/24/17 12:41 Blood Peripheral Anaerobic Blood Culture Pending Received Imaging Last Impressions Chest X-Ray 07/23/17 0000 Signed Impressions: Service Date/Time: Sunday, July 23, 2017 03:30 - CONCLUSION: Stable appearance of cardiomegaly and central vascular engorgement. Praneeth Barrientos MD Foot X-Ray 07/22/17 0000 Signed Impressions: Service Date/Time: Saturday, July 22, 2017 14:46 - CONCLUSION: 1. Soft tissue ulceration subjacent to the first MTP joint with regional soft tissue air. 2. Very small erosion in the medial base of the proximal phalanx of the first ray is well corticated and appears chronic. Otherwise, cortices are intact with no findings of osteomyelitis Epifanio Segal MD Objective Remarks GENERAL: 72 AA Female currently resting in bed on nasal cannula SKIN: Warm and dry. HEAD: Atraumatic. Normocephalic. EYES: Pupils equal and round about 3 mm bilaterally and reactive. No scleral icterus. No injection or drainage. ENT: No nasal bleeding or discharge. Mucous membranes pink and moist. NECK: Trachea midline. No JVD. CARDIOVASCULAR: Regular rate and rhythm. S1, S2. No S4. Without murmur RESPIRATORY: Clear to auscultation. Breath sounds equal bilaterally. GASTROINTESTINAL: Abdomen soft, non-tender, nondistended. Hepatic and splenic margins not palpable. MUSCULOSKELETAL: First phalanx/plantar ulcer currently wrapped in Kerlix on right lower extremity.. Positive thrill left upper extremity NEUROLOGICAL: Awake and alert. No obvious cranial nerve deficits. Motor grossly within normal limits. Five out of 5 muscle strength in the arms and legs. Normal speech. A/P Assessment and Plan Neuro/Psych: History of cataracts Depression Continue mirtazapine 15 mg at night and hydroxyzine 25 mg at night for depression/anxiety Acetaminophen for fever/pain 1-10 CV: History of hypertension Currently on D5 normal saline at 65 cc an hour Holding home medications of amlodipine 10 mg daily lisinopril 20 mg daily light of hypotension Holding home medications aspirin 81 mg a light of GI bleeding Resp: Nasal cannula to maintain saturations greater than equal to 90% Incentive spirometry while awake GI: Gastroesophageal reflux disease Hiatal hernia History of hepatitis C Schatzki ring EGD 07/23 with Schatzki ring mild to moderate and moderate hiatal hernia. No active bleeding Currently on pantoprazole 8 mg an hour. Hemoglobin currently 8.0 Plan colonoscopy 07/26 : Discontinue Schultz catheter Endo: Diabetes mellitus Hypothyroidism Secondary hyperparathyroidism Holding insulin glargine 10 units at night. Currently on Aspart sliding scale insulin with Accu-Cheks every 6 hours Continue levothyroxine 75 mics grams daily for hypothyroidism Currently on D5 at 65 cc an hour Renal: Diabetic nephropathy on hemodialysis Saturday/Saturday/Saturday with Dr. Dewayne Castanon following.. Hemodialysis plan for Dr. Castanon Heme: Acute blood loss anemia Anemia of chronic kidney disease Elevated INR Leukocytosis Transfused 4 units PRBCs On Epogen 10,000 units with hemodialysis Repeat coags and CBC in AM. . ID: Status post day #1 irrigation debridement by podiatry today of right foot Wound cultures no growth to date Blood cultures 2 ordered 07/24 pending for fever Denisse piperacillin/tazobactam and vancomycin day #1 FEN: Replace electrolytes as clinically indicated MSK: Osteoarthritis Out of bed/PT evaluate and treat MRI foot pending Access - Utilize peripheral IV. Central line if indicated Prophylaxis - GI - pantoprazole drip - DVT - SCD/holding pharmacological prophylaxis in light of GI bleeding Level III follow-up Cricket Arnold MD Jul 25, 2017 10:48
--- NOTE | 2017-07-25 10:57 | HHI.NPPN ---
Subjective History of Present Illness Patient is a 72-year-old with the GI bleed ESRD admitted Objective Data Data Vital Signs Date Time Temp Pulse Resp B/P (MAP) Pulse Ox O2 Delivery O2 Flow Rate FiO2 07/25/17 06:00 80 07/25/17 04:00 86 07/25/17 04:00 100.2 86 28 117/55 (75) 96 07/25/17 02:00 89 07/25/17 00:00 101.4 97 38 150/65 (93) 92 07/25/17 00:00 97 07/24/17 22:00 94 07/24/17 20:00 99.7 94 29 170/73 (105) 07/24/17 20:00 94 07/24/17 19:51 96 Nasal Cannula 2.00 07/24/17 18:00 95 07/24/17 16:00 92 07/24/17 16:00 98.8 92 16 152/91 (111) 99 07/24/17 16:00 92 07/24/17 14:00 90 07/24/17 12:00 90 07/24/17 12:00 99.8 90 22 145/65 (91) 94 07/24/17 11:31 99.8 90 16 156/61 100 07/24/17 11:16 99.8 90 18 156/71 99 -: 07/25/17 0504 07/25/17 0534 Microbiology 07/24/17 Aerobic Blood Culture, Received Pending 07/24/17 Anaerobic Blood Culture, Received Pending 07/24/17 Aerobic Blood Culture, Received Pending 07/24/17 Anaerobic Blood Culture, Received Pending Physical Exam General Appearance: Well Developed Neck Neck Exam: Neck Supple Pulmonary Resp Exam: Clear Bilaterally, Breath Sounds Equal Cardiology CV Exam: Regular, Normal Sinus Rhythm Gastrointestinal/Abdomen GI Exam: Soft, Non-Tender, Bowel Sounds Present Extremeties Extremities Exam: No Edema Assessment/Plan Problem List: (1) ESRD (end stage renal disease) on dialysis ICD Codes: N18.6 - End stage renal failure on dialysis; Z99.2 - Dependence on renal dialysis Status: Chronic Plan: Patient had HD yesterday 2 L removed await Foot MRI possible source of infection hypoglycemia High WBC follow Hb (2) GI bleed ICD Codes: K92.2 - Gastrointestinal hemorrhage, unspecified Status: Acute Plan: GI consult seen EGD report (3) Anemia ICD Codes: D64.9 - Anemia, unspecified Status: Acute Plan: Low hemoglobin needs to follow (4) Diabetes mellitus ICD Codes: E11.9 - Type 2 diabetes mellitus without complications Status: Chronic Plan: Continue to monitor Problem Qualifiers (1) Diabetes mellitus: Kandi Castanon MD Jul 25, 2017 10:57
[2017-07-25] MEDS ORDERED: PROPOFOL 200 MG/20 ML AMP IV ONE (12:00)
[2017-07-25] MEDS ORDERED: ceFAZolin INJ 1,000 MG VIAL IV ONE ×2 (12:00→21:31)
[2017-07-25] MEDS ORDERED: ONDANSETRON HCL 4 MG/2 ML VIAL IV ONE (12:00)
[2017-07-25] MEDS ORDERED: LIDOCAINE HCL 1% PF 5 ML SYRINGE OTHER ONE (12:00)
[2017-07-25] MEDS ORDERED: SUCCINYLCHOLINE CHLORIDE 100 MG/5 ML SYRINGE IV PUSH ONE (12:00)
[2017-07-25] MEDS ORDERED: SODIUM CHLORID 0.9% 500 ML INJ 500 ML IV ONE (12:00)
[2017-07-25] MEDS ORDERED: PHENYLEPH/NS 1000 MCG/10 ML SYR IV ONE (12:00)
--- NOTE | 2017-07-25 12:08 | HHI.GIFU ---
Subjective Remarks Pt resting in bed, in no apparent distress. RN is preparing pt to go down for MRI scan. Pt reports she is [age]. Denies nausea, vomiting, abdominal pain. Reports continued diarrhea. She states she is currently agreeable to having enemas today for procedure tomorrow. Objective Vitals I&O Vital Signs Date Time Temp Pulse Resp B/P (MAP) Pulse Ox O2 Delivery O2 Flow Rate FiO2 07/25/17 10:00 86 07/25/17 09:00 81 07/25/17 08:00 79 07/25/17 06:00 80 07/25/17 04:00 86 07/25/17 04:00 100.2 86 28 117/55 (75) 96 07/25/17 02:00 89 07/25/17 00:00 101.4 97 38 150/65 (93) 92 07/25/17 00:00 97 07/24/17 22:00 94 07/24/17 20:00 99.7 94 29 170/73 (105) 07/24/17 20:00 94 07/24/17 19:51 96 Nasal Cannula 2.00 07/24/17 18:00 95 07/24/17 16:00 92 07/24/17 16:00 98.8 92 16 152/91 (111) 99 07/24/17 16:00 92 07/24/17 14:00 90 I/O 07/24/17 07/24/17 07/24/17 07/25/17 07/25/17 07/25/17 07:00 15:00 23:00 07:00 15:00 23:00 Intake Total 2750.5 ml 711 ml 1556 ml 960 ml Output Total 0 ml 2000 ml Balance 2750.5 ml -1289 ml 1556 ml 960 ml Intake Oral 2030 ml 960 ml 960 ml IV Total 720.5 ml 241 ml 596 ml Packed Cells 400 ml Blood Product IV Normal Saline Flush 70 ml Output Urine Total 0 ml Hemodialysis 2000 ml # Bowel Movements 1 4 1 Laboratory Laboratory Tests Test 07/24/17 13:44 07/24/17 20:19 07/25/17 05:04 07/25/17 05:34 Nasal Screen MRSA (PCR) MRSA NOT DETECTED Hemoglobin 9.0 8.0 Hematocrit 27.6 24.7 White Blood Count 34.5 Red Blood Count 3.00 Mean Corpuscular Volume 82.4 Mean Corpuscular Hemoglobin 26.6 Mean Corpuscular Hemoglobin Concent 32.3 Red Cell Distribution Width 17.7 Platelet Count 250 Mean Platelet Volume 10.1 Neutrophils (%) (Auto) 87.4 Lymphocytes (%) (Auto) 3.2 Monocytes (%) (Auto) 8.8 Eosinophils (%) (Auto) 0.4 Basophils (%) (Auto) 0.2 Neutrophils # (Auto) 30.2 Lymphocytes # (Auto) 1.1 Monocytes # (Auto) 3.1 Eosinophils # (Auto) 0.1 Basophils # (Auto) 0.1 CBC Comment AUTO DIFF Differential Total Cells Counted 100 Neutrophils % (Manual) 75 Band Neutrophils % 11 Lymphocytes % 6 Monocytes % 8 Neutrophils # (Manual) 29.7 Differential Comment FINAL DIFF MANUAL Toxic Granulation 1+ Platelet Estimate NORMAL Platelet Morphology Comment NORMAL Target Cells 1+ Ovalocytes 1+ Prothrombin Time 14.2 Prothromb Time International Ratio 1.4 Activated Partial Thromboplast Time 28.5 Fibrinogen 416 Blood Urea Nitrogen 50 Creatinine 5.59 Random Glucose 45 Calcium Level 8.3 Sodium Level 141 Potassium Level 3.3 Chloride Level 103 Carbon Dioxide Level 28.1 Anion Gap 10 Estimat Glomerular Filtration Rate 9 Date/Time Source Procedure Growth Status 07/24/17 12:48 Blood Peripheral Aerobic Blood Culture - Preliminary NO GROWTH IN 1 DAY Resulted 07/24/17 12:48 Blood Peripheral Anaerobic Blood Culture - Preliminary NO GROWTH IN 1 DAY Resulted 07/24/17 07:38 Wound Foot Gram Stain - Final Resulted 07/24/17 07:38 Wound Foot Wound Culture Pending Resulted Imaging Last Impressions Chest X-Ray 07/23/17 0000 Signed Impressions: Service Date/Time: Sunday, July 23, 2017 03:30 - CONCLUSION: Stable appearance of cardiomegaly and central vascular engorgement. Praneeth Barrientos MD Foot X-Ray 07/22/17 0000 Signed Impressions: Service Date/Time: Saturday, July 22, 2017 14:46 - CONCLUSION: 1. Soft tissue ulceration subjacent to the first MTP joint with regional soft tissue air. 2. Very small erosion in the medial base of the proximal phalanx of the first ray is well corticated and appears chronic. Otherwise, cortices are intact with no findings of osteomyelitis Epifanio D. Klioze, MD Physical Exam HEENT: Normocephalic; atraumatic CHEST: CTA CARDIAC: RRR ABDOMEN: Soft, nondistended, nontender; no hepatosplenomegaly; bowel sounds active x 4. EXTREMITIES: No clubbing, cyanosis, or edema. SKIN: Normal; no rash; no jaundice. EEG TECHNOLOGIST: No focal deficits; alert and oriented times three. Assessment and Plan Plan Assessment: - Anemia- Microcytic, hypochromic. Likely multifactorial. Pt has ESRD and receives hemodialysis. Complaints of black stool for the past week with occasional coffee ground emesis. Denies history of PUD or GIB. Has been taking an increasing amount of Ibuprofen over the past week due to aches in the morning. EGD (07/23) --> Schatzki ring mild to moderate. Hiatal hernia. Pt was supposed to have a colonoscopy today, however, she refused the prep. H/H continues to drop. Currently 8.0/24.7 S/P 4 units of PRBCs, last unit received yesterday. Continues to have loose, black, tarry stools per the nurse. Currently on Protonix gtt. Pt has been back and forth on whether or not she wants to proceed with prep for the procedure. Dr. Quiles spoke with pts daughter, Isabella, yesterday and they decided to allow pt to eat yesterday and prep for procedure today. Plan remains to prep with 2 SSE and have colonoscopy done tomorrow. - ESRD- per attending- received hemodialysis yesterday. T, TH, Sat. Epoetin. Plan - Colonoscopy tomorrow - Clear liquids today - NPO after MN - 2 SSE for prep - Obtain consents - Monitor H/H - Transfuse as needed - Continue Protonix gtt - Supportive care - Further recommendations to follow based on results of above This patient has been seen and examined by myself and Dr. Quiles and this note is written on his behalf Rosario Silva Jul 25, 2017 12:08
--- NOTE | 2017-07-25 13:52 | RADRPT ---
EXAM DATE/TIME: 07/25/2017 12:05 [facility] COMPARISON: No previous studies available for comparison. INDICATIONS : Osteomyelitis. Right hallux ulcer. MEDICAL HISTORY : Diabetes mellitus type 2. Renal disease, end stage. Gastroesophageal reflux disease. Hypertension and hypothyroidism. SURGICAL HISTORY : Hysterectomy. Amputation of left big toe. ENCOUNTER: Initial ACUITY: 3 day PAIN SCORE: 0/10 LOCATION: Right Foot. TECHNIQUE: Multiplanar, multisequence MRI examination was performed without contrast. FINDINGS: BONE/CARTILAGE: Mild bone marrow edema is identified in the proximal phalanx of the great toe. There is no evidence o f focal cortical destruction. Signal intensity from the marrow fat is well-preserved on T1-weighted s cans. TENDONS: The flexor hallucis longus tendon demonstrate significant surrounding fluid from the base of the grea t toe to the ankle. At the level of the forefoot proximal to the great toe the fluid extends to the p lantar surface along the medial margin of the plantar fascia. MISCELLANEOUS: Plantar aponeurosis is intact. Sinus tarsi is within normal limits. CONCLUSION: 1. Tenosynovitis of the flexor hallucis longus tendon with fluid extending to the plantar surface. 2. Mild bone marrow edema involving the proximal phalanx of the great toe which may be reactive. 3. No discrete evidence of post NE line is. Eder Nieto MD on July 25, 2017 at 13:38 Board Certified Radiologist. This report was verified electronically.
[2017-07-25] MEDS ORDERED: PEG (High)/E-LYTE SOLN 4000 ML BTL PO ONE (18:45)
--- NOTE | 2017-07-25 19:54 | HHI.PR ---
Subjective Remarks MRI reviewed (+) for abscess to flexor tendon. Discussed MRI findings with patient. Discussed need for emergent Incision and Drainage to right foot ulcer and flexor tendon. Patient states she would like whatever will help her foot feel better. Objective Vital Signs Date Time Temp Pulse Resp B/P (MAP) Pulse Ox O2 Delivery O2 Flow Rate FiO2 07/25/17 18:50 18 07/25/17 18:33 2.00 07/25/17 18:00 87 07/25/17 16:00 87 07/25/17 16:00 100.7 84 30 136/64 (88) 94 07/25/17 14:00 82 07/25/17 12:36 18 07/25/17 10:00 86 07/25/17 09:00 81 07/25/17 08:00 79 07/25/17 08:00 101.0 79 18 112/56 (74) 100 07/25/17 06:00 80 07/25/17 04:00 86 07/25/17 04:00 100.2 86 28 117/55 (75) 96 07/25/17 02:00 89 07/25/17 00:00 101.4 97 38 150/65 (93) 92 07/25/17 00:00 97 07/24/17 22:00 94 07/24/17 20:00 99.7 94 29 170/73 (105) 07/24/17 20:00 94 07/24/17 19:51 96 Nasal Cannula 2.00 I/O 07/24/17 07/24/17 07/24/17 07/25/17 07/25/17 07/25/17 07:00 15:00 23:00 07:00 15:00 23:00 Intake Total 2750.5 ml 711 ml 1556 ml 960 ml 50 ml 478 ml Output Total 0 ml 2000 ml 1450 ml Balance 2750.5 ml -1289 ml 1556 ml 960 ml 50 ml -972 ml Intake Oral 2030 ml 960 ml 960 ml IV Total 720.5 ml 241 ml 596 ml 50 ml Tube Feeding 378 ml Albumin 100 ml Packed Cells 400 ml Blood Product IV Normal Saline Flush 70 ml Output Urine Total 0 ml 1250 ml Stool Total 200 ml Hemodialysis 2000 ml # Bowel Movements 1 4 1 Result Diagram: 07/25/17 0504 07/25/17 0534 Imaging Last 72 hours Impressions Foot MRI 07/25/17 0000 Signed Impressions: Service Date/Time: July 12:05 - CONCLUSION: 1. Tenosynovitis of the flexor hallucis longus tendon with fluid extending to the plantar surface. 2. Mild bone marrow edema involving the proximal phalanx of the great toe which may be reactive. 3. No discrete evidence of post NV line is. Eder Nieto MD Chest X-Ray 07/23/17 0000 Signed Impressions: Service Date/Time: Sunday, July 23, 2017 03:30 - CONCLUSION: Stable appearance of cardiomegaly and central vascular engorgement. Praneeth Barrientos MD MRI Right foot with abscess to flexor tendon. Other Results Laboratory Tests Test 07/24/17 05:44 07/24/17 13:44 07/24/17 20:19 07/25/17 05:04 White Blood Count 31.9 TH/MM3 34.5 TH/MM3 Red Blood Count 2.62 MIL/MM3 3.00 MIL/MM3 Hemoglobin 7.0 GM/DL 9.0 GM/DL 8.0 GM/DL Hematocrit 21.1 % 27.6 % 24.7 % Mean Corpuscular Volume 80.5 FL 82.4 FL Mean Corpuscular Hemoglobin 26.9 PG 26.6 PG Mean Corpuscular Hemoglobin Concent 33.5 % 32.3 % Red Cell Distribution Width 17.6 % 17.7 % Platelet Count 231 TH/MM3 250 TH/MM3 Mean Platelet Volume 10.7 FL 10.1 FL Blood Urea Nitrogen 76 MG/DL Creatinine 6.84 MG/DL Random Glucose 29 MG/DL Calcium Level 8.6 MG/DL Sodium Level 140 MEQ/L Potassium Level 4.3 MEQ/L Chloride Level 101 MEQ/L Carbon Dioxide Level 27.9 MEQ/L Anion Gap 11 MEQ/L Estimat Glomerular Filtration Rate 7 ML/MIN Nasal Screen MRSA (PCR) MRSA NOT DETECTED Neutrophils (%) (Auto) 87.4 % Lymphocytes (%) (Auto) 3.2 % Monocytes (%) (Auto) 8.8 % Eosinophils (%) (Auto) 0.4 % Basophils (%) (Auto) 0.2 % Neutrophils # (Auto) 30.2 TH/MM3 Lymphocytes # (Auto) 1.1 TH/MM3 Monocytes # (Auto) 3.1 TH/MM3 Eosinophils # (Auto) 0.1 TH/MM3 Basophils # (Auto) 0.1 TH/MM3 CBC Comment AUTO DIFF Differential Total Cells Counted 100 Neutrophils % (Manual) 75 % Band Neutrophils % 11 % Lymphocytes % 6 % Monocytes % 8 % Neutrophils # (Manual) 29.7 TH/MM3 Differential Comment FINAL DIFF MANUAL Toxic Granulation 1+ Platelet Estimate NORMAL Platelet Morphology Comment NORMAL Target Cells 1+ Ovalocytes 1+ Test 07/25/17 05:34 Prothrombin Time 14.2 SEC Prothromb Time International Ratio 1.4 RATIO Activated Partial Thromboplast Time 28.5 SEC Fibrinogen 416 mg/dL Blood Urea Nitrogen 50 MG/DL Creatinine 5.59 MG/DL Random Glucose 45 MG/DL Calcium Level 8.3 MG/DL Sodium Level 141 MEQ/L Potassium Level 3.3 MEQ/L Chloride Level 103 MEQ/L Carbon Dioxide Level 28.1 MEQ/L Anion Gap 10 MEQ/L Estimat Glomerular Filtration Rate 9 ML/MIN Objective Remarks Right foot new blister to lateral aspect of foot, new ankle swelling with fluctuance. No crepitus noted on compression. Mild purulent drainage upon compression. All to RLE. No erythema noted to right foot and ankle. DP palpable/ PT non palpable 2/2 edema. Assessment and Plan Assessment and Plan 72-year-old female with right hallux sub met 1 ulcer, flexor tendon abscess to right foot and ankle noted on MRI Patient examined and treated with all questions answered To OR for emergent incision and drainage of right foot and ankle abscess noted on MRI Recommend ID consult Will obtain OR cultures Consent signed RLE marked Will attempt to contact patient's family members Pooja Galvez DPM Jul 25, 2017 19:54
[2017-07-25] MEDS ORDERED: LIDOCAINE HCL 2% 50 ML VIAL ONE (20:15)
[2017-07-25] MEDS ORDERED: NEOMYCIN/POLYMYXIN 1 ML G.U. IRRIGANT ONE (20:23)
[2017-07-25] MEDS: hydrOXYzine HCL 25 MG TAB PO SCH ×2 (21:00→22:59)
[2017-07-25] MEDS: MIRTAZAPINE 15 MG TAB PO SCH ×2 (21:00→22:59)
[2017-07-25] MEDS: ceFAZolin INJ 1,000 MG VIAL IV ONE ×2 (21:24→21:25)
[2017-07-25] MEDS ORDERED: NALOXONE HCL 0.4 MG/ML AMP IV PUSH PRN (22:30)
[2017-07-25] MEDS ORDERED: Post-op Orders (for Pharmacy) XX ONE (22:30)
--- NOTE | 2017-07-25 22:39 | HHI.PR ---
Immediate Post Op Note Procedure Date: Jul 25, 2017 Pre Op Diagnosis: (1) Foot abscess, right (2) Ankle abscess Right foot and ankle abscess Post Op Diagnosis: (1) Ankle abscess (2) Foot abscess, right Surgeon: Pooja Galvez Supervisor Press Room(s): None Procedure: Right foot and ankle incision and drainage Findings: Extensive purulent drainage from flexor tendon sheath and ankle Additional Information: None Complications: None Specimen(s) removed: Deep Culture obtained Estimated blood loss: 20cc Anesthesia: General Drains: None IVF Patient to: PACU Patient Condition: Good Pooja Galvez DPM Jul 25, 2017 22:39
[2017-07-25] MEDS ORDERED: DO NOT ADM ANY ANTICOAGULANT DRUGS PRN (22:45)
[2017-07-26] VITALS (30 sets, daily range): BP systolic 96–147; BP diastolic 51–65; PULSE 68–84; RESP 15–32; TEMP 98.4–101.2; O2SAT 72–100
[2017-07-26] MEDS: PIPERACIL-TAZO 2.25 GM PREMIX 50 ML IV SCH ×3 (02:07→18:25)
[2017-07-26] MEDS: PANTOPRAZOLE INJ 80 MG in SODIUM CHLORIDE 0.9% INJ 100 ML IV SCH ×3 (03:06→23:49)
[2017-07-26] MEDS: CHLORHEXIDINE GLUCONATE 2 % 1 PACK (2 CLOTHS) TOP SCH (03:24)
[2017-07-26] MEDS: INSULIN ASPART SUPPLEMENTAL SCALE SQ SCH ×4 (05:10→23:50)
[2017-07-26] MEDS: LEVOTHYROXINE SODIUM 75 MCG TAB PO SCH (05:19)
[2017-07-26 05:26] LABS: HEMATOCRIT 27.2 % (35.0-46.0); MEAN CELL VOLUME 84.3 FL (80.0-100.0); MEAN CORPUSCULAR HEMOGLOBIN 26.7 PG (27.0-34.0); MEAN CORPUSCULAR HGB CONC 31.7 % (32.0-36.0); PLATELET COUNT 262 TH/MM3 (150-450); RED BLOOD COUNT 3.22 MIL/MM3 (4.00-5.30); RED CELL DISTRIBUTION WIDTH 18.6 % (11.6-17.2); WHITE BLOOD COUNT 35.8 TH/MM3 (4.0-11.0)
[2017-07-26 05:31] LABS: REVIEW FLAG FINAL
[2017-07-26 05:40] LABS: BICARBONATE 25.9 MEQ/L (21.0-32.0); MAGNESIUM 1.7 MG/DL (1.5-2.5)
[2017-07-26] MEDS: DEXT 5%-NACL 0.9% 1000 ML INJ 1,000 ML IV SCH ×2 (06:29→18:26)
--- NOTE | 2017-07-26 06:59 | HHI.NPPN ---
Subjective History of Present Illness Patient is a 72-year-old with the GI bleed ESRD admitted Objective Data Data Vital Signs Date Time Temp Pulse Resp B/P (MAP) Pulse Ox O2 Delivery O2 Flow Rate FiO2 07/26/17 04:00 98.4 73 20 105/56 (72) 97 07/26/17 04:00 73 07/26/17 02:00 68 07/26/17 00:00 99.4 75 20 96/51 (66) 94 07/26/17 00:00 75 07/25/17 22:45 99.6 83 25 128/59 (82) 93 Nasal Cannula 3 07/25/17 22:30 82 25 139/63 (88) 96 Nasal Cannula 3 07/25/17 22:15 80 22 138/65 (89) 95 Nasal Cannula 3 07/25/17 22:00 98.1 78 24 131/60 (83) 100 Simple Mask 8 07/25/17 22:00 80 07/25/17 20:00 84 07/25/17 20:00 99 Nasal Cannula 2.00 07/25/17 20:00 100.6 82 20 118/74 (89) 99 07/25/17 18:50 18 07/25/17 18:33 2.00 07/25/17 18:00 87 07/25/17 16:00 87 07/25/17 16:00 100.7 84 30 136/64 (88) 94 07/25/17 14:00 82 07/25/17 12:36 18 07/25/17 10:00 86 07/25/17 09:00 81 07/25/17 08:00 79 07/25/17 08:00 101.0 79 18 112/56 (74) 100 -: 07/26/17 0500 07/26/17 0500 Microbiology 07/25/17 Fungal Smear, Received Pending 07/25/17 Fungal Culture, Received Pending 07/25/17 Acid Fast Stain, Received Pending 07/25/17 Mycobacterial Culture, Received Pending 07/25/17 Gram Stain, Received Pending 07/25/17 Wound Culture, Received Pending Physical Exam General Appearance: Well Developed Neck Neck Exam: Neck Supple Pulmonary Resp Exam: Clear Bilaterally, Breath Sounds Equal Cardiology CV Exam: Regular, Normal Sinus Rhythm Gastrointestinal/Abdomen GI Exam: Soft, Non-Tender, Bowel Sounds Present Extremeties Extremities Exam: No Edema, Trace Edema Extremeties Remarks Rt foot dressed Assessment/Plan Problem List: (1) ESRD (end stage renal disease) on dialysis ICD Codes: N18.6 - End stage renal failure on dialysis; Z99.2 - Dependence on renal dialysis Status: Chronic Plan: Patient had HD Saturday 2 L removed HD MWF Rt fot infection surgery done follow culture possible source of infection hypoglycemia High WBC follow Hb Dr Oshea to follow on weekend Dr. Greene is her Metabolic Specialist from next week (2) GI bleed ICD Codes: K92.2 - Gastrointestinal hemorrhage, unspecified Status: Acute Plan: GI consult seen EGD report (3) Anemia ICD Codes: D64.9 - Anemia, unspecified Status: Acute Plan: Low hemoglobin needs to follow (4) Diabetes mellitus ICD Codes: E11.9 - Type 2 diabetes mellitus without complications Status: Chronic Plan: Continue to monitor Problem Qualifiers (1) Diabetes mellitus: Kandi Castanon MD Jul 26, 2017 06:59
--- NOTE | 2017-07-26 07:22 | RADRPT ---
EXAM DATE/TIME: 07/26/2017 06:44 [facility] COMPARISON: MRI FOOT RIGHT W/O CONTRAST, July 25, 2017, 12:05. FOOT RIGHT LIMITED (2VWS), July 22, 2017, 14:46. INDICATIONS : Post op right ankle. MEDICAL HISTORY : Diabetes mellitus type II. Hypertension Renal disease, end stage. SURGICAL HISTORY : Amputation of left big toe. ENCOUNTER: Subsequent ACUITY: 1 day PAIN SCORE: 0/10 LOCATION: Right ankle FINDINGS: The ankle is bandaged. Accounting for this, there is evidence of soft tissue swelling, especially pos teriorly. No bony abnormality is demonstrated. Vascular calcifications are again noted. CONCLUSION: Nonspecific soft tissue swelling of the right ankle region. No acute bony abnormality. Jacob Hall MD on July 26, 2017 at 7:18 Board Certified Radiologist. This report was verified electronically.
--- NOTE | 2017-07-26 07:23 | RADRPT ---
EXAM DATE/TIME: 07/26/2017 06:46 [facility] COMPARISON: No previous studies available for comparison. INDICATIONS : Post op right tibia. MEDICAL HISTORY : Renal disease, end stage. Diabetes mellitus type II. Hypertension. SURGICAL HISTORY : None. ENCOUNTER: Subsequent ACUITY: 1 day PAIN SCORE: 0/10 LOCATION: Right tibia FINDINGS: Right tibia and fibula are intact and have normal morphology. There soft tissue swelling of the right leg, mostly distally near the ankle. Vascular calcifications are again noted. No radiopaque foreign body. CONCLUSION: Distal leg soft tissue swelling without an acute bony abnormality. Jacob Hall MD on July 26, 2017 at 7:21 Board Certified Radiologist. This report was verified electronically.
--- NOTE | 2017-07-26 07:24 | RADRPT ---
EXAM DATE/TIME: 07/26/2017 06:50 [facility] COMPARISON: FOOT RIGHT LIMITED (2VWS), July 22, 2017, 14:46. INDICATIONS : Post op right foot. MEDICAL HISTORY : Diabetes mellitus type II. Hypertension Renal disease, end stage. SURGICAL HISTORY : None. ENCOUNTER: Subsequent ACUITY: 1 day PAIN SCORE: 0/10 LOCATION: Right foot FINDINGS: Soft tissue is of the plantar, medial forefoot have been debris did. There is soft tissue swelling an d patchy gas, not unexpected. No radiopaque foreign body. No acute bony abnormalities demonstrated. CONCLUSION: Soft tissue changes without an acute bony abnormality. Jacob Hall MD on July 26, 2017 at 7:22 Board Certified Radiologist. This report was verified electronically.
[2017-07-26] MEDS: SODIUM CHLORIDE 0.9% FLUSH 10 ML FLUSH IV FLUSH SCH ×2 (08:50→19:33)
[2017-07-26] MEDS: VITAMIN B CMPLX/VITC/FOLIC AC CAP PO SCH (08:50)
[2017-07-26] MEDS: DOCUSATE SODIUM 50 MG/SENNA 8.6 MG TAB PO SCH ×2 (08:50→19:32)
[2017-07-26] MEDS: COLLAGENASE OINT 30 GM TUBE TOPICAL SCH (08:51)
--- NOTE | 2017-07-26 09:26 | MR ---
cc: ALAN DORAN DPM DATE: 07/26/2017 DATE OF 1945 SURGEON Alan Doran DPM. MASH TUB COOKER None. PREOPERATIVE DIAGNOSIS Abscess right foot and ankle. POSTOPERATIVE DIAGNOSIS Abscess right foot and ankle. PROCEDURE Right foot and ankle incision and drainage. ANESTHESIA General. HEMOSTASIS None. ESTIMATED BLOOD LOSS 20 cc. MATERIALS 3-0 Prolene, one inch iodoform packing. INJECTABLES None. COMPLICATIONS None. INDICATION FOR PROCEDURE The patient is a 72-year-old female who presented to the ED with complaints of black stools. She was admitted for a GI evaluation with possible bleed. The patient was unable to complete a colonoscopy because she continually eats prior to procedure. Upon initial consultation the patient had purulent drainage from a 1st metatarsal ulcer, osteomyelitis, possible abscess suspected. MRI was taken of the right foot. The MRI of the right foot was read by the radiologist as tenosynovitis of the flexor tendon; however, abscess was suspected. Upon clinically correlating MRI a new blister with purulent drainage was noted to lateral foot as well as swelling in right ankle. The patient understands the alternatives, risks, complications and benefits of the procedure and elected to continue with the procedure. DESCRIPTION OF PROCEDURE The patient was brought back to the operating room and placed on the operating table in a supine position. General anesthesia was introduced. No infiltrate of local anesthesia was given. A well-padded thigh tourniquet was applied, however, it was not inflated. Once the right foot, ankle and leg were prepped and draped in a normal sterile fashion attention was then directed about the medial plantar aspect of the right foot where was located. vascular structures flexor tendon plantar foot. Debridement of all nonviable necrotic skin and tissue was performed. The patient was then draped about the right ankle where a medial lateral incision was made in order to drain abscess 50 cc of purulent drainage was noted. Excessive purulent drainage was noted to ankle posterior aspect, anterior aspect, as well as medial and lateral gutters. amount of purulent drainage noted to right foot. Upon compression of calf and lower leg no additional purulent drainage was noted. palpation to 1st metatarsal head. The right foot was then irrigated with normal saline, three liters in total. The skin was then re-approximated very loosely with 3-0 Prolene and iodoform packing was applied to the right foot. The foot was then dressed with 4x4x, Harvey and brittanie. The patient tolerated the procedure and anesthesia well and he was transferred from the OR to PACU with vital signs stable and neurovascular status intact to the right foot. DIANE Martinez /1:08 AM /9:09 AM
--- NOTE | 2017-07-26 09:33 | HHI.PR ---
Subjective Remarks Patient seen bedside this a.m. and reports no nausea vomiting fevers or chills. Patient is withdrawn and fatigued. Reports mild pain to right lower extremity. Objective Vital Signs Date Time Temp Pulse Resp B/P (MAP) Pulse Ox O2 Delivery O2 Flow Rate FiO2 07/26/17 08:00 100 Nasal Cannula 2.00 07/26/17 06:00 76 07/26/17 04:00 98.4 73 20 105/56 (72) 97 07/26/17 04:00 73 07/26/17 02:00 68 07/26/17 00:00 99.4 75 20 96/51 (66) 94 07/26/17 00:00 75 07/25/17 22:45 99.6 83 25 128/59 (82) 93 Nasal Cannula 3 07/25/17 22:30 82 25 139/63 (88) 96 Nasal Cannula 3 07/25/17 22:15 80 22 138/65 (89) 95 Nasal Cannula 3 07/25/17 22:00 98.1 78 24 131/60 (83) 100 Simple Mask 8 07/25/17 22:00 80 07/25/17 20:00 84 07/25/17 20:00 99 Nasal Cannula 2.00 07/25/17 20:00 100.6 82 20 118/74 (89) 99 07/25/17 18:50 18 07/25/17 18:33 2.00 07/25/17 18:00 87 07/25/17 16:00 87 07/25/17 16:00 100.7 84 30 136/64 (88) 94 07/25/17 14:00 82 07/25/17 12:36 18 07/25/17 10:00 86 I/O 07/25/17 07/25/17 07/25/17 07/26/17 07/26/17 07/26/17 06:59 14:59 22:59 06:59 14:59 22:59 Intake Total 960 ml 50 ml 928 ml 552.2 ml Output Total 1950 ml Balance 960 ml 50 ml -1022 ml 552.2 ml Intake Oral 960 ml 240 ml IV Total 50 ml 450 ml 312.2 ml Tube Feeding 378 ml Albumin 100 ml Output Urine Total 1250 ml Stool Total 200 ml Estimated Blood Loss 500 ml # Voids 0 # Bowel Movements 1 2 Result Diagram: 07/26/17 0500 07/26/17 0500 Imaging Last 72 hours Impressions Tibia/Fibula X-Ray 07/26/17 0628 Signed Impressions: Service Date/Time: Wednesday, July 26, 2017 06:46 - CONCLUSION: Distal leg soft tissue swelling without an acute bony abnormality. Jacob Hall MD Foot X-Ray 07/26/17 0000 Signed Impressions: Service Date/Time: Wednesday, July 26, 2017 06:50 - CONCLUSION: Soft tissue changes without an acute bony abnormality. Jacob Hall MD Ankle X-Ray 07/26/17 0000 Signed Impressions: Service Date/Time: Wednesday, July 26, 2017 06:44 - CONCLUSION: Nonspecific soft tissue swelling of the right ankle region. No acute bony abnormality. Jacob Hall MD Foot MRI 07/25/17 0000 Signed Impressions: Service Date/Time: July 12:05 - CONCLUSION: 1. Tenosynovitis of the flexor hallucis longus tendon with fluid extending to the plantar surface. 2. Mild bone marrow edema involving the proximal phalanx of the great toe which may be reactive. 3. No discrete evidence of post [place] line is. Eder Nieto MD Procedures Patient is status post right foot and ankle incision and drainage DOS: July 25, 2017 Other Results Laboratory Tests Test 07/26/17 05:00 White Blood Count 35.8 TH/MM3 (4.0-11.0) Red Blood Count 3.22 MIL/MM3 (4.00-5.30) Hemoglobin 8.6 GM/DL (11.6-15.3) Hematocrit 27.2 % (35.0-46.0) Mean Corpuscular Volume 84.3 FL (80.0-100.0) Mean Corpuscular Hemoglobin 26.7 PG (27.0-34.0) Mean Corpuscular Hemoglobin Concent 31.7 % (32.0-36.0) Red Cell Distribution Width 18.6 % (11.6-17.2) Platelet Count 262 TH/MM3 (150-450) Mean Platelet Volume 10.6 FL (7.0-11.0) Blood Urea Nitrogen 55 MG/DL (7-18) Creatinine 6.39 MG/DL (0.50-1.00) Random Glucose 70 MG/DL (74-106) Calcium Level 7.7 MG/DL (8.5-10.1) Phosphorus Level 4.0 MG/DL (2.5-4.9) Magnesium Level 1.7 MG/DL (1.5-2.5) Sodium Level 140 MEQ/L (136-145) Potassium Level 4.0 MEQ/L (3.5-5.1) Chloride Level 103 MEQ/L (98-107) Carbon Dioxide Level 25.9 MEQ/L (21.0-32.0) Anion Gap 11 MEQ/L (5-15) Estimat Glomerular Filtration Rate 8 ML/MIN (>89) Random Vancomycin Level 15.3 COMMENT Objective Remarks Vascular: Capillary refill time to digits x5 of right foot within normal limits Neuro: Decreased pinpoint sensation. Gross sensation intact, no hyper algesia noted Derm: Dressing the right lower extremity clean dry and intact. No strike through noted to dressing. MSK: Active/passive dorsiflexion of digits x5. Able to perform ankle range of motion. Pain on palpation to right foot and leg. Assessment and Plan Assessment and Plan 72-year-old female with right foot and ankle abscess status post incision and drainage to surgery 07/25 Patient examined and treated with all questions answered Spoke with patient in great detail concerning right foot and ankle infection and possible below-knee amputation. Discussed with patient vascular surgery will be in to evaluate her - patient seems to have good understanding of treatment options and prognosis, her affect is withdrawn and fatigued Reviewed x-rays of right foot, ankle, tib-fib: Concern for further infection soft tissue infection to proximal leg despite incision and drainage Discussed patient with Dr. Liborio Lozano, vascular surgery consult to evaluate limb salvage options versus [id number] amputation secondary to severity of infection Will perform repeat debridement and irrigation 07/27 for limb salvage attempts will discuss with Dr. Lozano Recommend ID consult Deep cultures obtained from OR pending Spoke in great detail with patient's daughter over the phone concerning severity of foot and ankle infection and possible / unfortunately probable loss of limb depending on vascular consult Discussed Condition With Dr. Denis Villa s/p Incision and Drainage Pooja Sheriff DPM Jul 26, 2017 09:33
[2017-07-26] MEDS: GELATIN 12 MM/7 MM FOAM TOP PRN (09:39)
[2017-07-26] MEDS: EPOETIN ALFA 10,000 UNITS/ML VIAL IV PUSH PRN (09:39)
[2017-07-26] MEDS ORDERED: VANCOMYCIN 1,000 MG/NS 250 ML IV SCH ×2 (11:00)
--- NOTE | 2017-07-26 11:02 | PD.CAR.PN ---
CVT Progress Note Subjective/Hospital Course: Referral received Full consult TF J Objective: Vital Signs Date Time Temp Pulse Resp B/P (MAP) Pulse Ox O2 Delivery O2 Flow Rate FiO2 07/26/17 08:00 100 Nasal Cannula 2.00 07/26/17 06:00 76 07/26/17 04:00 98.4 73 20 105/56 (72) 97 07/26/17 04:00 73 07/26/17 02:00 68 07/26/17 00:00 99.4 75 20 96/51 (66) 94 07/26/17 00:00 75 07/25/17 22:45 99.6 83 25 128/59 (82) 93 Nasal Cannula 3 07/25/17 22:30 82 25 139/63 (88) 96 Nasal Cannula 3 07/25/17 22:15 80 22 138/65 (89) 95 Nasal Cannula 3 07/25/17 22:00 98.1 78 24 131/60 (83) 100 Simple Mask 8 07/25/17 22:00 80 07/25/17 20:00 84 07/25/17 20:00 99 Nasal Cannula 2.00 07/25/17 20:00 100.6 82 20 118/74 (89) 99 07/25/17 18:50 18 07/25/17 18:33 2.00 07/25/17 18:00 87 07/25/17 16:00 87 07/25/17 16:00 100.7 84 30 136/64 (88) 94 07/25/17 14:00 82 07/25/17 12:36 18 Labs: Laboratory Tests Test 07/26/17 05:00 White Blood Count 35.8 TH/MM3 (4.0-11.0) Red Blood Count 3.22 MIL/MM3 (4.00-5.30) Hemoglobin 8.6 GM/DL (11.6-15.3) Hematocrit 27.2 % (35.0-46.0) Mean Corpuscular Volume 84.3 FL (80.0-100.0) Mean Corpuscular Hemoglobin 26.7 PG (27.0-34.0) Mean Corpuscular Hemoglobin Concent 31.7 % (32.0-36.0) Red Cell Distribution Width 18.6 % (11.6-17.2) Platelet Count 262 TH/MM3 (150-450) Mean Platelet Volume 10.6 FL (7.0-11.0) Blood Urea Nitrogen 55 MG/DL (7-18) Creatinine 6.39 MG/DL (0.50-1.00) Random Glucose 70 MG/DL (74-106) Calcium Level 7.7 MG/DL (8.5-10.1) Phosphorus Level 4.0 MG/DL (2.5-4.9) Magnesium Level 1.7 MG/DL (1.5-2.5) Sodium Level 140 MEQ/L (136-145) Potassium Level 4.0 MEQ/L (3.5-5.1) Chloride Level 103 MEQ/L (98-107) Carbon Dioxide Level 25.9 MEQ/L (21.0-32.0) Anion Gap 11 MEQ/L (5-15) Estimat Glomerular Filtration Rate 8 ML/MIN (>89) Random Vancomycin Level 15.3 COMMENT Result Diagram: 07/26/17 0500 07/26/17 0500 Amalia De La Cruz MD Jul 26, 2017 11:02
--- NOTE | 2017-07-26 11:50 | HHI.CCPN ---
Subjective Remarks/Hospital Course 72-year-old female with a medical history significant for end- stage renal disease on hemodialysis, hypertension who was brought to the ER with nausea vomiting and black tarry stools which have been going on for about a week. She is usually dialyzed on Saturday and Fridays and follows with Dr. Buchanan. She missed her hemodialysis session today due to significant weakness. Patient was brought to the ER by EMS and was found to have a hemoglobin of 4.9 as well as hyperkalemia with potassium 6.7. She was not hypotensive. She complained of generalized weakness otherwise some shortness of breath. Denied any chest pain. Denied any fever or chills. She was given medications for hyperkalemia by ER physician and 3 units PRBCs were ordered for her anemia. Patient was accepted for admission by critical care medicine service. Nephrology was also contacted and Dr. Castanon is arranging for hemodialysis. When I evaluated the patient in the ER she was laying in the ER stretcher complaining of feeling thirsty. She did not wish to keep her O2 nasal cannula on. She was maintaining her O2 sats and blood pressure. History was obtained by reviewing records, discussion with patient and her family members as well as ER physician and nursing staff. 07/23: hypoglycemic overnight. plan for EGD today. 07/24: Hemodynamically stable. Status post debridement of right plantar aspect of foot. Will be transfuse 1 additional unit PRBC today. Plan for colonoscopy tomorrow. 07/25: Episodic hypoglycemia overnight. Remains on D5. Patient family brought in eggs and sausage per report. Subjective 07/26: Status post I&D right foot and ankle overnight. Hemodynamically stable. Seen by vascular surgery today. Plan for repeat I&D in AM. Flat effect. Objective Vital Signs Date Time Temp Pulse Resp B/P (MAP) Pulse Ox O2 Delivery O2 Flow Rate FiO2 07/26/17 10:00 80 07/26/17 08:00 100 Nasal Cannula 2.00 07/26/17 04:00 98.4 20 105/56 (72) Intake and Output 07/26/17 07/26/17 07/27/17 08:00 16:00 00:00 Intake Total 552.2 ml Balance 552.2 ml Result Diagram: 07/26/17 0500 07/26/17 0500 Other Results Microbiology Date/Time Source Procedure Growth Status 07/24/17 12:48 Blood Peripheral Aerobic Blood Culture - Preliminary NO GROWTH IN 2 DAYS Resulted 07/24/17 12:48 Blood Peripheral Anaerobic Blood Culture - Preliminary NO GROWTH IN 2 DAYS Resulted 07/25/17 20:05 Abscess Foot Fungal Smear - Final NO FUNGAL ELEMENTS SEEN. Resulted 07/25/17 20:05 Abscess Foot Fungal Culture Pending Resulted Imaging Last Impressions Tibia/Fibula X-Ray 07/26/17 0628 Signed Impressions: Service Date/Time: Wednesday, July 26, 2017 06:46 - CONCLUSION: Distal leg soft tissue swelling without an acute bony abnormality. Jacob Hall MD Foot X-Ray 07/26/17 0000 Signed Impressions: Service Date/Time: Wednesday, July 26, 2017 06:50 - CONCLUSION: Soft tissue changes without an acute bony abnormality. Jacob Hall MD Ankle X-Ray 07/26/17 0000 Signed Impressions: Service Date/Time: Wednesday, July 26, 2017 06:44 - CONCLUSION: Nonspecific soft tissue swelling of the right ankle region. No acute bony abnormality. Jacob Hall MD Foot MRI 07/25/17 0000 Signed Impressions: Service Date/Time: July 12:05 - CONCLUSION: 1. Tenosynovitis of the flexor hallucis longus tendon with fluid extending to the plantar surface. 2. Mild bone marrow edema involving the proximal phalanx of the great toe which may be reactive. 3. No discrete evidence of post HI line is. Eder Nieto MD Chest X-Ray 07/23/17 0000 Signed Impressions: Service Date/Time: Sunday, July 23, 2017 03:30 - CONCLUSION: Stable appearance of cardiomegaly and central vascular engorgement. Praneeth Barrientos MD Objective Remarks GENERAL: 72 AA Female currently resting in bed on nasal cannula SKIN: Warm and dry. HEAD: Atraumatic. Normocephalic. EYES: Pupils equal and round about 3 mm bilaterally and reactive. No scleral icterus. No injection or drainage. ENT: No nasal bleeding or discharge. Mucous membranes pink and moist. NECK: Trachea midline. No JVD. CARDIOVASCULAR: Regular rate and rhythm. S1, S2. No S4. Without murmur RESPIRATORY: Clear to auscultation. Breath sounds equal bilaterally. GASTROINTESTINAL: Abdomen soft, non-tender, nondistended. Hepatic and splenic margins not palpable. MUSCULOSKELETAL: First phalanx/plantar ulcer currently wrapped in Kerlix on right lower extremity. Prior ulceration documented by podiatry. Positive edema.. Positive thrill left upper extremity NEUROLOGICAL: Awake and alert. No obvious cranial nerve deficits. Motor grossly within normal limits. Five out of 5 muscle strength in the arms and legs. Normal speech. A/P Assessment and Plan Neuro/Psych: History of cataracts Depression Continue mirtazapine 15 mg at night and hydroxyzine 25 mg at night for depression/anxiety Acetaminophen for fever/pain 1-10 CV: History of hypertension Currently on D5 normal saline at 65 cc an hour Holding home medications of amlodipine 10 mg daily lisinopril 20 mg daily light of hypotension Holding home medications aspirin 81 mg a light of GI bleeding Resp: Nasal cannula to maintain saturations greater than equal to 90%. Currently 2 L Incentive spirometry while awake GI: Gastroesophageal reflux disease Hiatal hernia History of hepatitis C Schatzki ring EGD 07/23 with Schatzki ring mild to moderate and moderate hiatal hernia. No active bleeding Currently on pantoprazole 8 mg an hour. Hemoglobin currently 8.0 Plan colonoscopy when not sneaking food. Currently not controlled at this time. : Discontinued Schultz catheter Endo: Diabetes mellitus Hypothyroidism Secondary hyperparathyroidism Holding insulin glargine 10 units at night. Currently on Aspart sliding scale insulin with Accu-Cheks every 6 hours Continue levothyroxine 75 mics grams daily for hypothyroidism Currently on D5 at 65 cc an hour Renal: Diabetic nephropathy on hemodialysis Saturday/Saturday/Saturday with Dr. Dewayne Castanon following.. Hemodialysis plan for Dr. Castanon Heme: Acute blood loss anemia Anemia of chronic kidney disease Elevated INR Leukocytosis Transfused 4 units PRBCs On Epogen 10,000 units with hemodialysis Repeat coags and CBC in AM. . ID: Status post day #3 and 1 irrigation debridement by podiatry of right foot and ankle Wound cultures 07/24 revealed Citrobacter and gram-negative rods. Currently piperacillin tazobactam and vancomycin. Infectious disease consult. Blood cultures 2 ordered / no growth today. OR Cultures are pending Continue piperacillin/tazobactam and vancomycin day #3 FEN: Replace electrolytes as clinically indicated MSK: Status post day #3 and 1 irrigation debridement by podiatry of right foot and ankle Osteoarthritis Right foot abscess Out of bed/PT evaluate and treat MRI foot revealed flexor hallucis longus tendon synovitis with fluid along the plantar flexor. Actually abscess. Vascular surgery evaluation with Dr. Fleming Podiatrs[facility] for repeat I&D tomorrow 07/27. Access - Utilize peripheral IV. Central line if indicated Prophylaxis - GI - pantoprazole drip - DVT - SCD/holding pharmacological prophylaxis in light of GI bleeding Level II follow-up Cricket Arnold MD Jul 26, 2017 11:50
[2017-07-26] MEDS ORDERED: PHENYLEPH/NS 1000 MCG/10 ML SYR IV ONE (12:00)
[2017-07-26] MEDS ORDERED: PROPOFOL 200 MG/20 ML AMP IV ONE (12:00)
--- NOTE | 2017-07-26 13:42 | PD.CONS ---
History of Present Illness Service Infectious Disease Consult Requested By Dr Ari Arnold Reason for Consult Evaluate patient with GNR in R foot infection Primary Care Physician No Primary Care Physician Diagnoses: History of Present Illness Patient seen and examined. Records reviewed Patient is a 72-year-old female, presented to the hospital complaining of one weeke history of nausea, vomiting and black stool. She has ESRD and gets HD MWF. She felt sick and missed her HD on the day of admission. She denies any abdominal pain. On presentation, she had severe anemia. GI evaluated her and she had EGD, with findings of hernia. Colonoscopy is still pending. She was also found to have an ulcer of her R big toe. Podiatry saw patient and did surgery 07/25. Infection found on big toe and and also in the R ankle. Cultures are growing Citrobacter and second GNR. patient has been running fevers since 07/24. her WBC has remains elevated and above 30K. Another OR was planned for tomorrow. Patient is also being evaluated by vascular surgery. She is getting CT of the rest of her RLE to evaluate extent of infection. Temps are better. Her WBC remains high at 35K. She got HD today. Hemodynamics are ok. I asked patient how long she has had the R foot wound and she said she does not know. Infectious Disease consultation has been requested to evaluate patient with foot infection and C/S with GNR. She is on Zosyn and Vancomycin. Review of Systems Constitutional: COMPLAINS OF: Fatigue, Fever, Chills Eyes: DENIES: Eye pain Ears, nose, mouth, throat: DENIES: Nasal discharge, Throat pain, Ear Pain Respiratory: DENIES: Cough Cardiovascular: DENIES: Chest pain, Palpitations Gastrointestinal: DENIES: Diarrhea, Difficulty Swallowing Musculoskeletal: COMPLAINS OF: Joint pain, Joint Swelling Integumentary: DENIES: Rash Immunologic/allergic: DENIES: Urticaria Neurologic: DENIES: Localized weakness Psychiatric: DENIES: Hallucinations Past Family Social History 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 Past Medical History Diabetes Hypertension Anemia GERD Hypothyroidism Secondary hyperparathyroidism Osteoarthritis Past Surgical History History of toe amputation AV fistula left forearm Partial hysterectomy Active Ordered Medications Current Medications Vancomycin Zosyn Medications (Trade) Dose Ordered Sig/Rita Route Start Time Stop Time Status Last Admin (NS Flush) 2 ml UNSCH PRN IV FLUSH 07/22/17 16:00 (NS Flush) 2 ml BID IV FLUSH 07/22/17 21:00 07/25/17 22:53 (Tylenol) 650 mg Q6H PRN PO 07/22/17 16:00 07/25/17 17:50 (Zofran Inj) 4 mg Q6H PRN IV PUSH 07/22/17 16:00 (Duoneb Neb) 1 ampule Q2HR NEB PRN INH 07/22/17 16:00 Miscellaneous Information 1 Q361D XX 07/22/17 16:00 (Chlorhexidine 2% Cloth) 3 pack Taper DAILY@04 TOP 07/23/17 04:00 07/19/18 03:59 07/26/17 03:24 (Chlorhexidine 2% Cloth) 3 pack UNSCH PRN TOP 07/22/17 16:00 (Velma-Colace) 1 tab BID PO 07/22/17 21:00 07/25/17 22:59 (Milk Of Magnesia Liq) 30 ml Q12H PRN PO 07/22/17 16:00 (Senokot) 17.2 mg Q12H PRN PO 07/22/17 16:00 (Dulcolax Supp) 10 mg DAILY PRN RECTAL 07/22/17 16:00 (Lactulose Liq) 30 ml DAILY PRN PO 07/22/17 16:00 Pantoprazole Sodium 80 mg/ Sodium Chloride 100 ml @ 10 mls/hr Q10H IV 07/22/17 18:05 07/26/17 12:30 Sodium Chloride 1,000 ml @ 0 mls/hr Q0M PRN OTHER 07/22/17 16:21 (Heparin Inj) 8,000 units UNSCH PRN IV FLUSH 07/22/17 16:30 Sodium Chloride 1,000 ml @ 200 mls/hr Q5H PRN IV 07/22/17 16:21 Sodium Chloride 1,000 ml @ 0 mls/hr Q0M PRN OTHER 07/22/17 16:21 (Mannitol Inj) 12.5 gm UNSCH PRN IV 07/22/17 16:30 Albumin Human 100 ml @ 60 mls/hr UNSCH PRN IV 07/22/17 16:30 (NS Flush) 5 ml UNSCH PRN IV FLUSH 07/22/17 16:30 (Heparin Inj) UNSCH PRN .XX 07/22/17 16:30 (Gentamicin (Dialysis) Inj) 20 mg UNSCH PRN OTHER 07/22/17 16:30 (Zofran Inj) 4 mg UNSCH PRN IV PUSH 07/22/17 16:30 (Tylenol) 650 mg UNSCH PRN PO 07/22/17 16:30 07/25/17 11:36 (Benadryl) 25 mg UNSCH PRN PO 07/22/17 16:30 (Nitrostat Sl) 0.4 mg UNSCH PRN SL 07/22/17 16:30 (Catapres) 0.1 mg UNSCH PRN PO 07/22/17 16:30 (Epogen Inj) 10,000 units UNSCH PRN IV PUSH 07/22/17 16:30 07/26/17 09:39 (Gelfoam 12 Mm/7 Mm Top) 1 foam UNSCH PRN TOP 07/22/17 16:30 07/26/17 09:39 (Atarax) 25 mg HS PO 07/22/17 21:00 07/25/17 22:59 (Synthroid) 75 mcg DAILY@0600 PO 07/23/17 06:00 07/26/17 05:19 (Remeron) 15 mg HS PO 07/22/17 21:00 07/25/17 22:59 (Nephrocaps) 1 cap DAILY PO 07/23/17 09:00 07/25/17 09:23 (Levemir Inj) 10 units HS SQ 07/22/17 21:00 Future Hold 07/22/17 21:00 (NovoLOG SUPPLEMENTAL SCALE) 1 Q6HR SQ 07/22/17 18:00 07/25/17 23:37 (D50w (Vial) Inj) 25 ml UNSCH PRN IV 07/22/17 17:15 07/25/17 08:04 (Glucagon Inj) 1 mg UNSCH PRN IM/SQ 07/22/17 17:15 Dextrose/Sodium Chloride 1,000 ml @ 65 mls/hr [id number] IV 07/23/17 15:00 07/26/17 06:29 (Santyl Oint) 1 applic DAILY TOPICAL 07/25/17 09:00 07/25/17 09:23 Pharmacy Profile Note 0 ml @ 0 mls/hr UNSCH OTHER 07/24/17 16:00 Piperacillin Sod/ Tazobactam Sod 50 ml @ 100 mls/hr Q8H IV 07/24/17 18:00 07/26/17 02:07 Miscellaneous Information ALL NURSING DEPARTME... UNSCH PRN .XX 07/25/17 22:45 07/26/17 22:44 (Narcan Inj) 0.4 mg UNSCH PRN IV PUSH 07/25/17 22:30 Vancomycin HCl 1000 mg/Sodium Chloride 250 ml @ 250 mls/hr WITH DIALYSIS IV 07/26/17 11:00 Family History Noncontributory Social History Denies smoking Denies ETOH abuse Denies illicit drugs Physical Exam Vital Signs Vital Signs Date Time Temp Pulse Resp B/P (MAP) Pulse Ox O2 Delivery O2 Flow Rate FiO2 07/26/17 10:00 80 07/26/17 08:00 79 07/26/17 08:00 100 Nasal Cannula 2.00 07/26/17 08:00 99.3 79 21 132/60 (84) 100 07/26/17 06:00 76 07/26/17 04:00 98.4 73 20 105/56 (72) 97 07/26/17 04:00 73 07/26/17 02:00 68 07/26/17 00:00 99.4 75 20 96/51 (66) 94 07/26/17 00:00 75 07/25/17 22:45 99.6 83 25 128/59 (82) 93 Nasal Cannula 3 07/25/17 22:30 82 25 139/63 (88) 96 Nasal Cannula 3 07/25/17 22:15 80 22 138/65 (89) 95 Nasal Cannula 3 07/25/17 22:00 98.1 78 24 131/60 (83) 100 Simple Mask 8 07/25/17 22:00 80 07/25/17 20:00 84 07/25/17 20:00 99 Nasal Cannula 2.00 07/25/17 20:00 100.6 82 20 118/74 (89) 99 07/25/17 18:50 18 07/25/17 18:33 2.00 07/25/17 18:00 87 07/25/17 16:00 87 07/25/17 16:00 100.7 84 30 136/64 (88) 94 07/25/17 14:00 82 Physical Exam GENERAL: Patient is a thin, well-developed female, awake and alert, not in respiratory distress. SKIN: Warm and dry. No generalized rash, no ecchymoses and no evidence of embolic lesions. HEAD: Atraumatic. Normocephalic. No temporal wasting, or tenderness. EYES: [place] conjunctiva. No petechia or hemorrhage. Pupils equal, round and reactive to light. Extraocular movements full and intact. No scleral icterus. No injection or drainage. EARS, NOSE AND THROAT: Nose without bleeding or purulent nasal discharge. No sinus tenderness. Mucous membranes pink and moist. No oral lesions noted. NECK: Trachea midline. Supple and not tender, no meningeal signs CARDIOVASCULAR: Regular rate and rhythm. No murmurs, rubs or gallops heard RESPIRATORY: Clear to auscultation. Breath sounds equal bilaterally. No rales , wheezing or rhonchi ABDOMEN: Soft, non-tender, nondistended. Bowel sounds present and normoactive. No guarding. No rebound. No organomegaly. EXTREMITIES: No clubbing, cyanos. RLE is larger compared to the LLE. Has bulky, dry and intact dressing on the R foot - this si from surgery yesterday. Has some nodular areas on the posterior R leg. No calf tenderness. Well perfused and warm. AVF ok NEUROLOGICAL: Awake and alert. Cranial nerves grossly intact. Motor grossly within normal limits. PSYCHIATRIC: Normal affect, calm and cooperative. LINE: No evidence of infection Laboratory Laboratory Tests Test 07/26/17 05:00 White Blood Count 35.8 Red Blood Count 3.22 Hemoglobin 8.6 Hematocrit 27.2 Mean Corpuscular Volume 84.3 Mean Corpuscular Hemoglobin 26.7 Mean Corpuscular Hemoglobin Concent 31.7 Red Cell Distribution Width 18.6 Platelet Count 262 Mean Platelet Volume 10.6 Blood Urea Nitrogen 55 Creatinine 6.39 Random Glucose 70 Calcium Level 7.7 Phosphorus Level 4.0 Magnesium Level 1.7 Sodium Level 140 Potassium Level 4.0 Chloride Level 103 Carbon Dioxide Level 25.9 Anion Gap 11 Estimat Glomerular Filtration Rate 8 Random Vancomycin Level 15.3 Date/Time Source Procedure Growth Status 07/24/17 12:48 Blood Peripheral Aerobic Blood Culture - Preliminary NO GROWTH IN 2 DAYS Resulted 07/24/17 12:48 Blood Peripheral Anaerobic Blood Culture - Preliminary NO GROWTH IN 2 DAYS Resulted 07/25/17 20:05 Abscess Foot Fungal Smear - Final NO FUNGAL ELEMENTS SEEN. Resulted 07/25/17 20:05 Abscess Foot Fungal Culture Pending Resulted Result Diagram: 07/26/17 0500 07/26/17 0500 Imaging RADIOLOGY STUDIES/FILMS REVIEWED Tibia/Fibula X-Ray 07/26/17 0628 Signed Impressions: Service Date/Time: Wednesday, July 26, 2017 06:46 - CONCLUSION: Distal leg soft tissue swelling without an acute bony abnormality. Jacob Hall MD Foot X-Ray 07/26/17 0000 Signed Impressions: Service Date/Time: Wednesday, July 26, 2017 06:50 - CONCLUSION: Soft tissue changes without an acute bony abnormality. Jacob Hall MD Ankle X-Ray 07/26/17 0000 Signed Impressions: Service Date/Time: Wednesday, July 26, 2017 06:44 - CONCLUSION: Nonspecific soft tissue swelling of the right ankle region. No acute bony abnormality. Jacob Hall MD Foot MRI 07/25/17 0000 Signed Impressions: Service Date/Time: July 12:05 - CONCLUSION: 1. Tenosynovitis of the flexor hallucis longus tendon with fluid extending to the plantar surface. 2. Mild bone marrow edema involving the proximal phalanx of the great toe which may be reactive. 3. No discrete evidence of post [place] line is. Eder Nieto MD Chest X-Ray 07/23/17 0000 Signed Impressions: Service Date/Time: Sunday, July 23, 2017 03:30 - CONCLUSION: Stable appearance of cardiomegaly and central vascular engorgement. Praneeth Barrientos MD Assessment and Plan Assessment and Plan IMPRESSION Sepsis due to infection RLE - ?extent, initially just noted to have ulcer in big toe, but infection noted to be also in the ankle - S/P I and D, C/S Citrobacter and second GNR Severe anemia, GIB - EGD ok - for colonoscopy today ESRD on HD MWF RECOMMENDATION Await results CT RLE Vascular surgery also evaluating patient Continue Zosyn Continue Vanco Follow C/S and adjust Abx Repeat debridement plan for 07/27 Follow temps and CBC Monitor progress I will follow along with you Thank you for this consultation Discussed Condition With D/W Klaudia Reid MD Jul 26, 2017 13:42
--- NOTE | 2017-07-26 14:36 | RADRPT ---
EXAM DATE/TIME: 07/26/2017 13:29 [facility] COMPARISON: No previous studies available for comparison. INDICATIONS : Right leg soft tissue swelling. Evaluate for emphysema. RADIATION DOSE: 7.29 CTDIvol (mGy) ; Combined studies MEDICAL HISTORY : Diabetes mellitus type 2. Seizures. Hypertension. SURGICAL HISTORY : Hysterectomy. ENCOUNTER: Initial ACUITY: 2 days PAIN SCALE: 8/10 LOCATION: Right leg. TECHNIQUE: Volumetric scanning of the femur was performed. Using automated exposure control and adjustment of t he mA and/or kV according to patient size, radiation dose was kept as low as reasonably achievable to obtain optimal diagnostic quality images. DICOM format image data is available electronically for review and comparison. FINDINGS: BONES: The bony structures of the femur are grossly intact. SOFT TISSUES: There is nonspecific edema in the soft tissues of the thigh. However there is no evidence of emphysem a. CONCLUSION: 1. No evidence of emphysema in the soft tissues of the right thigh. 2. Bony structures of the femur grossly intact. Nain Castillo MD on July 26, 2017 at 14:32 Board Certified Radiologist. This report was verified electronically.
--- NOTE | 2017-07-26 14:42 | RADRPT ---
EXAM DATE/TIME: 07/26/2017 13:29 [facility] COMPARISON: No previous studies available for comparison. INDICATIONS : Right left soft tissue swelling. RADIATION DOSE: 7.29 CTDIvol (mGy) MEDICAL HISTORY : Seizures. Hypertension. Diabetes mellitus type 2. SURGICAL HISTORY : Hysterectomy. ENCOUNTER: Initial ACUITY: 2 days PAIN SCALE: 8/10 LOCATION: Right foot TECHNIQUE: Volumetric scanning of the foot was performed. Using automated exposure control and adjustment of th e mA and/or kV according to patient size, radiation dose was kept as low as reasonably achievable to obtain optimal diagnostic quality images. DICOM format image data is available electronically for re view and comparison. FINDINGS: BONES: The bony structures of the foot are grossly intact. There is some osteopenia the bony structures. JOINTS: Mild degenerative changes involving the midtarsal bones. SOFT TISSUES: There is evidence of subcutaneous emphysema in the soft tissues just behind the ankle with some spont aneously dense material.. There is evidence of a subcutaneous emphysema in the soft tissues along the plantar surface of the foot in a somewhat linear fashion with some spontaneously dense material. Fin dingdaria suggest most likely postsurgical. There is also nonspecific edema in the soft tissues. CONCLUSION: 1. Focal emphysema with spontaneously dense material is seen in the soft tissues just posterior to th e ankle joint. 2. Focal emphysema with spontaneously dense material is seen in the soft tissues along the plantar stephens rface of the foot in a linear fashion. The findings may be postsurgical. This needs to be correlated with any recent surgery.. Nain Castillo MD on July 26, 2017 at 14:34 Board Certified Radiologist. This report was verified electronically.
--- NOTE | 2017-07-26 14:46 | RADRPT ---
EXAM DATE/TIME: 07/26/2017 13:29 [facility] COMPARISON: No previous studies available for comparison. INDICATIONS : Right leg soft tissue swelling. Evalaute for emphysema. RADIATION DOSE: 7.29 CTDIvol (mGy) ; Combined studies - Thorax/Abdomen/Pelvis MEDICAL HISTORY : Seizures. Hypertension. Diabetes mellitus type 2. SURGICAL HISTORY : Hysterectomy. ENCOUNTER: Initial ACUITY: 2 days PAIN SCALE: 8/10 LOCATION: Right leg TECHNIQUE: Volumetric scanning of the tibia and fibula was performed. Using automated exposure control and adju stment of the mA and/or kV according to patient size, radiation dose was kept as low as reasonably ac hievable to obtain optimal diagnostic quality images. DICOM format image data is available [facility] for review and comparison. FINDINGS: BONES: Bony structures of the tibia and fibula are grossly intact. JOINTS: No evidence of joint narrowing or effusion. SOFT TISSUES: There is subcutaneous emphysema with some spontaneously dense material in the soft tissues just poste rior to the ankle joint in a linear fashion extending from skin to skin. The same finding is also not ed along the plantar surface of the foot posterior to the first and second distal metatarsals. There is also nonspecific edema throughout the soft tissues. CONCLUSION: There is subcutaneous emphysema with some spontaneously dense material in the soft tissues just behin d the ankle in a linear fashion extending from skin to skin. This may be postsurgical in nature. Anderson mmend correlation with recent surgery. Nain Castillo MD on July 26, 2017 at 14:40 Board Certified Radiologist. This report was verified electronically.
--- NOTE | 2017-07-26 15:43 | HHI.GIFU ---
Subjective Remarks Colonoscopy with biopsy performed. One small polyp seen at ICV. Removed with cold forceps. Also diverticulosis seen. Few small possible AVMs in ascending. No intervention. Objective Vitals I&O Vital Signs Date Time Temp Pulse Resp B/P (MAP) Pulse Ox O2 Delivery O2 Flow Rate FiO2 07/26/17 13:53 81 27 135/57 (83) 07/26/17 13:00 84 22 126/60 (82) 07/26/17 12:45 84 21 133/62 (85) 07/26/17 12:30 84 29 144/59 (87) 07/26/17 12:15 84 19 134/61 (85) 07/26/17 12:00 81 18 131/61 (84) 07/26/17 11:45 81 19 137/62 (87) 07/26/17 11:30 81 19 128/58 (81) 07/26/17 11:15 82 26 128/60 (82) 07/26/17 11:00 83 21 136/65 (88) 07/26/17 10:45 83 20 133/65 (87) 07/26/17 10:30 80 32 142/65 (90) 07/26/17 10:15 80 30 147/63 (91) 07/26/17 10:00 80 28 126/60 (82) 07/26/17 10:00 80 07/26/17 09:45 80 23 126/56 (79) 07/26/17 09:30 80 26 111/52 (71) 72 07/26/17 09:15 77 22 119/59 (79) 100 07/26/17 09:13 79 20 117/55 (75) 100 07/26/17 09:00 79 20 07/26/17 08:00 79 07/26/17 08:00 100 Nasal Cannula 2.00 07/26/17 08:00 99.3 79 21 132/60 (84) 100 07/26/17 06:00 76 07/26/17 04:00 98.4 73 20 105/56 (72) 97 07/26/17 04:00 73 07/26/17 02:00 68 07/26/17 00:00 99.4 75 20 96/51 (66) 94 07/26/17 00:00 75 07/25/17 22:45 99.6 83 25 128/59 (82) 93 Nasal Cannula 3 07/25/17 22:30 82 25 139/63 (88) 96 Nasal Cannula 3 07/25/17 22:15 80 22 138/65 (89) 95 Nasal Cannula 3 07/25/17 22:00 98.1 78 24 131/60 (83) 100 Simple Mask 8 07/25/17 22:00 80 07/25/17 20:00 84 07/25/17 20:00 99 Nasal Cannula 2.00 07/25/17 20:00 100.6 82 20 118/74 (89) 99 07/25/17 18:50 18 07/25/17 18:33 2.00 07/25/17 18:00 87 07/25/17 16:00 87 07/25/17 16:00 100.7 84 30 136/64 (88) 94 I/O 07/25/17 07/25/17 07/25/17 07/26/17 07/26/17 07/26/17 07:00 15:00 23:00 07:00 15:00 23:00 Intake Total 960 ml 50 ml 928 ml 552.2 ml 500 ml Output Total 1950 ml 2000 ml Balance 960 ml 50 ml -1022 ml 552.2 ml -2000 ml 500 ml Intake Oral 960 ml 240 ml IV Total 50 ml 450 ml 312.2 ml Tube Feeding 378 ml Albumin 100 ml Other 500 ml Output Urine Total 1250 ml Stool Total 200 ml Hemodialysis 2000 ml Estimated Blood Loss 500 ml # Voids 0 # Bowel Movements 1 2 Laboratory Laboratory Tests Test 07/26/17 05:00 White Blood Count 35.8 Red Blood Count 3.22 Hemoglobin 8.6 Hematocrit 27.2 Mean Corpuscular Volume 84.3 Mean Corpuscular Hemoglobin 26.7 Mean Corpuscular Hemoglobin Concent 31.7 Red Cell Distribution Width 18.6 Platelet Count 262 Mean Platelet Volume 10.6 Blood Urea Nitrogen 55 Creatinine 6.39 Random Glucose 70 Calcium Level 7.7 Phosphorus Level 4.0 Magnesium Level 1.7 Sodium Level 140 Potassium Level 4.0 Chloride Level 103 Carbon Dioxide Level 25.9 Anion Gap 11 Estimat Glomerular Filtration Rate 8 Random Vancomycin Level 15.3 Date/Time Source Procedure Growth Status 07/24/17 12:48 Blood Peripheral Aerobic Blood Culture - Preliminary NO GROWTH IN 2 DAYS Resulted 07/24/17 12:48 Blood Peripheral Anaerobic Blood Culture - Preliminary NO GROWTH IN 2 DAYS Resulted 07/25/17 20:05 Abscess Foot Fungal Smear - Final NO FUNGAL ELEMENTS SEEN. Resulted 07/25/17 20:05 Abscess Foot Fungal Culture Pending Resulted Physical Exam HEENT: Normocephalic; atraumatic CHEST: CTA CARDIAC: RRR ABDOMEN: Soft, nondistended, nontender; no hepatosplenomegaly; bowel sounds active x 4. EXTREMITIES: No clubbing, cyanosis, or edema. SKIN: Normal; no rash; no jaundice. VALIDATION ANALYST: No focal deficits; alert and oriented times three. Assessment and Plan Plan Assessment: - Anemia- Microcytic, hypochromic. Likely multifactorial. Pt has ESRD and receives hemodialysis. Complaints of black stool for the past week with occasional coffee ground emesis. Denies history of PUD or GIB. Has been taking an increasing amount of Ibuprofen over the past week due to aches in the morning. EGD (07/23) --> Schatzki ring mild to moderate. Hiatal hernia. Pt was supposed to have a colonoscopy today, however, she refused the prep. H/H continues to drop. Currently 8.0/24.7 S/P 4 units of PRBCs, last unit received yesterday. Continues to have loose, black, tarry stools per the nurse. Currently on Protonix gtt. Pt has been back and forth on whether or not she wants to proceed with prep for the procedure. Dr. Quiles spoke with pts daughter, Isabella, yesterday and they decided to allow pt to eat yesterday and prep for procedure today. Plan remains to prep with 2 SSE and have colonoscopy done tomorrow. - ESRD- per attending- received hemodialysis yesterday. T, TH, Sat. Epoetin. - Colonoscopy with biopsy performed. One polyp seen. No active bleeding. Mild diverticulosis. Few tiny avms in cecum and ascending. Plan - Regular diet. - Monitor H/H - Transfuse as needed - Continue Protonix gtt - Supportive care Alon Nunez MD Jul 26, 2017 15:43
[2017-07-26] MEDS ORDERED: DO NOT ADM ANY ANTICOAGULANT DRUGS PRN (15:51)
[2017-07-26] MEDS ORDERED: *morphine SULFATE 8 MG/ML PERIprocedure ONLY ONE (16:09)
[2017-07-26] MEDS: ACETAMINOPHEN 325 MG TAB PO PRN (19:32)
[2017-07-26] MEDS: hydrOXYzine HCL 25 MG TAB PO SCH (21:00)
[2017-07-26] MEDS: MIRTAZAPINE 15 MG TAB PO SCH (21:00)
--- NOTE | 2017-07-26 21:46 | MB ---
cc: AMALIA SHARP MD DATE OF CONSULTATION: 07/26/2017 BOAT RENTAL CLERK: Amalia Shapr, Vascular surgery. REASON FOR CONSULTATION: Osteomyelitis, right foot. Peripheral vascular disease. HISTORY OF PRESENT ILLNESS: This 73 year old female was admitted to the hospital with nausea and vomiting and passage of black melanotic stools. On initial admission, hemoglobin was 4.5 and 4.9. The patient was resuscitated and in the process of work up was found to have abscess of the medial end of her right foot, as well as lateral ankle. The patient was taken to the operating room by podiatry Dr. Buchanan and questions now about vascular supply, of this patient, possible other remedies including amputation. PAST MEDICAL HISTORY: Complex, the patient has long standing diabetes mellitus. Hypertension. Renal insufficiency. Dialysis for a prolonged period of time. Hypothyroidism. PAST SURGICAL HISTORY: Toe amputation on the left side. A-V fistula. Hysterectomy. Multiple accesses for dialysis. MEDICATIONS: Can be found in the record. PHYSICAL EXAMINATION: IN GENERAL: Reveals a 72 year-old female, normocephalic, no trauma to the head. HEAD, EYES, EARS, NOSE, AND THROAT: Pupils equal, round and reactive. Extraocular muscles intact. NECK: Bilateral carotid pulses. CHEST: Bilateral breath sounds. HEART: Regular rhythm. ABDOMEN: Abdomen Soft. Hypoactive bowel sounds. Nondistended. The patient apparently had upper endoscopy by the way which was negative. Lower endoscopy could not be performed due to patient noncompliance and eating. EXTREMITIES: The patient has no palpable pulses distal to the groin both groins I can palpate but then distally the patient has dopplerable weak popliteal pulses on the right side she has weak posterior tibial but no dorsalis pedis on the left side she has both dorsalis pedis posterior tibial which are fairly weak on Doppler. The capillary refill is delayed. There is a defect from surgery on the as above-noted NEUROLOGIC EXAMINATION The patient at this point she is answering questions appropriately but she seemed to be fairly sedated and sentences are short and to the point, moves all four extremities. IMPRESSION A 72-year-old female with osteomyelitis of the foot and clearly diminished vascular supply to both legs at this point the patient has bigger problems considering her lower intestinal bleed which is probably diverticular but obviously she will need a full workup to assess that for sure on the other hand as far as the leg is concerned, I will order CTA to see what the blood flow to the feet is, because the patient number of studies in the past but not of this. She is in permanent renal failure, so dialysis is mandatory one way or the other. I will continue to follow patient which you. Critical care time 38 minutes. Amalia London /9:22 PM /9:36 PM
[2017-07-27] VITALS (14 sets, daily range): BP systolic 98–122; BP diastolic 52–60; PULSE 68–77; RESP 16–20; TEMP 98.3–99.1; O2SAT 94–100
[2017-07-27] MEDS: PIPERACIL-TAZO 2.25 GM PREMIX 50 ML IV SCH ×3 (01:24→19:57)
[2017-07-27] MEDS: DEXT 5%-NACL 0.9% 1000 ML INJ 1,000 ML IV SCH ×2 (01:24→22:02)
[2017-07-27] MEDS: CHLORHEXIDINE GLUCONATE 2 % 1 PACK (2 CLOTHS) TOP SCH (03:05)
[2017-07-27] MEDS: LEVOTHYROXINE SODIUM 75 MCG TAB PO SCH (05:52)
[2017-07-27] MEDS: INSULIN ASPART SUPPLEMENTAL SCALE SQ SCH ×4 (05:54→20:01)
[2017-07-27 06:52] LABS: HEMATOCRIT 25.2 % (35.0-46.0); MEAN CELL VOLUME 83.5 FL (80.0-100.0); MEAN CORPUSCULAR HEMOGLOBIN 27.3 PG (27.0-34.0); MEAN CORPUSCULAR HGB CONC 32.7 % (32.0-36.0); PLATELET COUNT 348 TH/MM3 (150-450); RED BLOOD COUNT 3.02 MIL/MM3 (4.00-5.30); RED CELL DISTRIBUTION WIDTH 18.2 % (11.6-17.2); REVIEW FLAG FINAL; WHITE BLOOD COUNT 26.6 TH/MM3 (4.0-11.0)
[2017-07-27 07:09] LABS: BICARBONATE 22.6 MEQ/L (21.0-32.0); POTASSIUM 3.8 MEQ/L (3.5-5.1)
[2017-07-27] MEDS: COLLAGENASE OINT 30 GM TUBE TOPICAL SCH (08:28)
[2017-07-27] MEDS: DOCUSATE SODIUM 50 MG/SENNA 8.6 MG TAB PO SCH ×2 (08:28→21:00)
[2017-07-27] MEDS: VITAMIN B CMPLX/VITC/FOLIC AC CAP PO SCH (08:29)
[2017-07-27] MEDS: SODIUM CHLORIDE 0.9% FLUSH 10 ML FLUSH IV FLUSH SCH ×2 (09:00→19:55)
--- NOTE | 2017-07-27 09:37 | HHI.GIFU ---
Subjective Remarks Pt resting in bed, awake, in no apparent distress. She reports she is hungry and wants to eat. Has not had a BM since colonoscopy yesterday. (Rosario Silva) Objective Vitals I&O Vital Signs Date Time Temp Pulse Resp B/P (MAP) Pulse Ox O2 Delivery O2 Flow Rate FiO2 07/27/17 07:05 96 21 07/27/17 06:00 72 07/27/17 04:00 70 07/27/17 04:00 98.3 70 18 115/55 (75) 07/27/17 02:00 68 07/27/17 00:00 98.4 70 20 98/55 (69) 07/27/17 00:00 70 07/26/17 22:00 79 07/26/17 21:00 100.3 07/26/17 20:32 16 07/26/17 20:28 96 Nasal Cannula 2.00 07/26/17 20:00 81 27 135/57 (83) 07/26/17 20:00 83 07/26/17 20:00 101.2 83 15 109/54 (72) 99 07/26/17 18:00 79 07/26/17 16:20 79 16 103/48 (66) 100 Nasal Cannula 2 07/26/17 16:00 79 16 99/47 (64) 100 Nasal Cannula 2 07/26/17 15:50 97.9 80 16 101/50 (67) 100 Nasal Cannula 2 07/26/17 14:00 84 07/26/17 13:53 81 27 135/57 (83) 07/26/17 13:00 84 22 126/60 (82) 07/26/17 12:45 84 21 133/62 (85) 07/26/17 12:30 84 29 144/59 (87) 07/26/17 12:15 84 19 134/61 (85) 07/26/17 12:00 81 07/26/17 12:00 81 18 131/61 (84) 07/26/17 11:45 81 19 137/62 (87) 07/26/17 11:30 81 19 128/58 (81) 07/26/17 11:15 82 26 128/60 (82) 07/26/17 11:00 83 21 136/65 (88) 07/26/17 10:45 83 20 133/65 (87) 07/26/17 10:30 80 32 142/65 (90) 07/26/17 10:15 80 30 147/63 (91) 07/26/17 10:00 80 28 126/60 (82) 07/26/17 10:00 80 07/26/17 09:45 80 23 126/56 (79) I/O 07/26/17 07/26/17 07/26/17 07/27/17 07/27/17 07/27/17 07:00 15:00 23:00 07:00 15:00 23:00 Intake Total 552.2 ml 100 ml 1206 ml 1603.4 ml Output Total 2000 ml 0 ml 0 ml Balance 552.2 ml -1900 ml 1206 ml 1603.4 ml Intake Oral 240 ml 0 ml 120 ml IV Total 312.2 ml 100 ml 706 ml 1483.4 ml Other 500 ml Output Urine Total 0 ml 0 ml Hemodialysis 2000 ml # Voids 0 0 # Bowel Movements 2 1 0 Laboratory Laboratory Tests Test 07/27/17 05:05 White Blood Count 26.6 Red Blood Count 3.02 Hemoglobin 8.2 Hematocrit 25.2 Mean Corpuscular Volume 83.5 Mean Corpuscular Hemoglobin 27.3 Mean Corpuscular Hemoglobin Concent 32.7 Red Cell Distribution Width 18.2 Platelet Count 348 Mean Platelet Volume 11.3 Blood Urea Nitrogen 35 Creatinine 4.99 Random Glucose 123 Calcium Level 8.3 Sodium Level 140 Potassium Level 3.8 Chloride Level 104 Carbon Dioxide Level 22.6 Anion Gap 13 Estimat Glomerular Filtration Rate 10 Date/Time Source Procedure Growth Status 07/24/17 12:48 Blood Peripheral Aerobic Blood Culture - Preliminary NO GROWTH IN 2 DAYS Resulted 07/24/17 12:48 Blood Peripheral Anaerobic Blood Culture - Preliminary NO GROWTH IN 2 DAYS Resulted 07/25/17 20:05 Abscess Foot Fungal Smear - Final NO FUNGAL ELEMENTS SEEN. Resulted 07/25/17 20:05 Abscess Foot Fungal Culture Pending Resulted Imaging Last Impressions Tibia/Fibula X-Ray 07/26/17 0628 Signed Impressions: Service Date/Time: Wednesday, July 26, 2017 06:46 - CONCLUSION: Distal leg soft tissue swelling without an acute bony abnormality. Jacob Hall MD Lower Extremity CT 07/26/17 0000 Signed Impressions: Service Date/Time: Wednesday, July 26, 2017 13:29 - CONCLUSION: 1. Focal emphysema with spontaneously dense material is seen in the soft tissues just posterior to the ankle joint. 2. Focal emphysema with spontaneously dense material is seen in the soft tissues along the plantar surface of the foot in a linear fashion. The findings may be postsurgical. This needs to be correlated with any recent surgery.. Nain Castillo MD Foot X-Ray 07/26/17 0000 Signed Impressions: Service Date/Time: Wednesday, July 26, 2017 06:50 - CONCLUSION: Soft tissue changes without an acute bony abnormality. Jacob Hall MD Ankle X-Ray 07/26/17 0000 Signed Impressions: Service Date/Time: Wednesday, July 26, 2017 06:44 - CONCLUSION: Nonspecific soft tissue swelling of the right ankle region. No acute bony abnormality. Jacob Hall MD Foot MRI 07/25/17 0000 Signed Impressions: Service Date/Time: July 12:05 - CONCLUSION: 1. Tenosynovitis of the flexor hallucis longus tendon with fluid extending to the plantar surface. 2. Mild bone marrow edema involving the proximal phalanx of the great toe which may be reactive. 3. No discrete evidence of post [place] line is. Eder Nieto MD Chest X-Ray 07/23/17 0000 Signed Impressions: Service Date/Time: Sunday, July 23, 2017 03:30 - CONCLUSION: Stable appearance of cardiomegaly and central vascular engorgement. Praneeth Barrientos MD Physical Exam HEENT: Normocephalic; atraumatic CHEST: CTA CARDIAC: RRR ABDOMEN: Soft, nondistended, nontender; no hepatosplenomegaly; bowel sounds active x 4. EXTREMITIES: No clubbing, cyanosis, or edema. SKIN: Normal; no rash; no jaundice. DIRECTOR OF BUSINESS CONTINUITY: No focal deficits; alert and oriented times three. (Rosario Silva) Assessment and Plan Plan Assessment: - Anemia- Microcytic, hypochromic. Likely multifactorial. Pt has ESRD and receives hemodialysis. Complaints of black stool for the past week with occasional coffee ground emesis. Denies history of PUD or GIB. Has been taking an increasing amount of Ibuprofen over the past week due to aches in the morning. EGD (07/23) --> Schatzki ring mild to moderate. Hiatal hernia. Pt was supposed to have a colonoscopy today, however, she refused the prep. H/H continues to drop. Currently 8.2/25.2 S/P 4 units of PRBCs, last unit received Jul 24. Colonoscopy (07/26) --> One small polyp at ICV. Removed with cold forceps. Diverticulosis. Few small possible AVMs in ascending. No active bleeding No intervention. Biopsy pending. Will switch Protonix to BID dosing. Regular NEFTALI. Currently NPO for foot and ankle I&D. - ESRD- per attending- received hemodialysis yesterday. T, , Sat. Epoetin. Plan - Protonix BID - NEFTALI - Monitor H/H - Transfuse as needed - Supportive care Pt has been seen and examined by myself and Dr. Nunez and this note is written on his behalf (Rosario Silva) Plan Workup for GI is near complete. She may benefit from capsule endoscopy to study the small bowel if she continues to lose blood from GI tract. (Alon Nunez MD) Rosario Silva Jul 27, 2017 09:37 Alon Nunez MD Jul 27, 2017 14:29
--- NOTE | 2017-07-27 09:53 | HHI.CCPN ---
Subjective Remarks/Hospital Course 72-year-old female with a medical history significant for end- stage renal disease on hemodialysis, hypertension who was brought to the ER with nausea vomiting and black tarry stools which have been going on for about a week. She is usually dialyzed on Saturday and Fridays and follows with Dr. Buchanan. She missed her hemodialysis session today due to significant weakness. Patient was brought to the ER by EMS and was found to have a hemoglobin of 4.9 as well as hyperkalemia with potassium 6.7. She was not hypotensive. She complained of generalized weakness otherwise some shortness of breath. Denied any chest pain. Denied any fever or chills. She was given medications for hyperkalemia by ER physician and 3 units PRBCs were ordered for her anemia. Patient was accepted for admission by critical care medicine service. Nephrology was also contacted and Dr. Castanon is arranging for hemodialysis. When I evaluated the patient in the ER she was laying in the ER stretcher complaining of feeling thirsty. She did not wish to keep her O2 nasal cannula on. She was maintaining her O2 sats and blood pressure. History was obtained by reviewing records, discussion with patient and her family members as well as ER physician and nursing staff. 07/23: hypoglycemic overnight. plan for EGD today. 07/24: Hemodynamically stable. Status post debridement of right plantar aspect of foot. Will be transfuse 1 additional unit PRBC today. Plan for colonoscopy tomorrow. 07/25: Episodic hypoglycemia overnight. Remains on D5. Patient family brought in eggs and sausage per report. 07/26: Status post I&D right foot and ankle overnight. Hemodynamically stable. Seen by vascular surgery today. Plan for repeat I&D in AM. Flat effect. Subjective 07/27: Afebrile. Status post colonoscopy yesterday with 1: Abdomen. Diverticulosis seen along with nonbleeding AVMs in the cecum and ascending colon. Reviewed CT lower extremity. Subjective is here possibly surgery related. Plan for CT angiography lower extremity per Dr. De La Cruz/vascular surgery. -2L hemodialysis yesterday. Objective Vital Signs Date Time Temp Pulse Resp B/P (MAP) Pulse Ox O2 Delivery O2 Flow Rate FiO2 07/27/17 07:05 96 21 07/27/17 06:00 72 07/27/17 04:00 98.3 18 115/55 (75) 07/26/17 20:28 Nasal Cannula 2.00 Intake and Output 07/27/17 07/27/17 07/28/17 08:00 16:00 00:00 Intake Total 1503.4 ml Output Total 0 ml Balance 1503.4 ml Result Diagram: 07/27/17 0505 07/27/17 0505 Imaging Last Impressions Tibia/Fibula X-Ray 07/26/17 0628 Signed Impressions: Service Date/Time: Wednesday, July 26, 2017 06:46 - CONCLUSION: Distal leg soft tissue swelling without an acute bony abnormality. Jacob Hall MD Foot X-Ray 07/26/17 0000 Signed Impressions: Service Date/Time: Wednesday, July 26, 2017 06:50 - CONCLUSION: Soft tissue changes without an acute bony abnormality. Jacob Hall MD Ankle X-Ray 07/26/17 0000 Signed Impressions: Service Date/Time: Wednesday, July 26, 2017 06:44 - CONCLUSION: Nonspecific soft tissue swelling of the right ankle region. No acute bony abnormality. Jacob Hall MD Foot MRI 07/25/17 0000 Signed Impressions: Service Date/Time: July 12:05 - CONCLUSION: 1. Tenosynovitis of the flexor hallucis longus tendon with fluid extending to the plantar surface. 2. Mild bone marrow edema involving the proximal phalanx of the great toe which may be reactive. 3. No discrete evidence of post [place] line is. Eder Nieto MD Chest X-Ray 07/23/17 0000 Signed Impressions: Service Date/Time: Sunday, July 23, 2017 03:30 - CONCLUSION: Stable appearance of cardiomegaly and central vascular engorgement. Praneeth Barrientos MD Objective Remarks GENERAL: 72 AA Female currently resting in bed on room air in no acute distress SKIN: Warm and dry. HEAD: Atraumatic. Normocephalic. EYES: Pupils equal and round about 3 mm bilaterally and reactive. No scleral icterus. No injection or drainage. ENT: No nasal bleeding or discharge. Mucous membranes pink and moist. NECK: Trachea midline. No JVD. CARDIOVASCULAR: Regular rate and rhythm. S1, S2. No S4. Without murmur RESPIRATORY: Clear to auscultation. Breath sounds equal bilaterally. GASTROINTESTINAL: Abdomen soft, non-tender, nondistended. Hepatic and splenic margins not palpable. MUSCULOSKELETAL: First phalanx/plantar ulcer currently wrapped in Kerlix on right lower extremity. Prior ulceration documented by podiatry. Positive edema.. Positive thrill left upper extremity NEUROLOGICAL: Awake and alert. No obvious cranial nerve deficits. Motor grossly within normal limits. Five out of 5 muscle strength in the arms and legs. Normal speech. A/P Assessment and Plan Neuro/Psych: History of cataracts Depression Continue mirtazapine 15 mg at night and hydroxyzine 25 mg at night for depression/anxiety Acetaminophen for fever/pain 1-10 CV: History of hypertension Currently on D5 normal saline at 65 cc an hour Holding home medications of amlodipine 10 mg daily lisinopril 20 mg daily light of hypotension Holding home medications aspirin 81 mg a light of GI bleeding Resp: Nasal cannula to maintain saturations greater than equal to 90%. On room air Incentive spirometry while awake As needed albuterol aerosols every 2 hours. Dyspnea GI: Gastroesophageal reflux disease Hiatal hernia History of hepatitis C Schatzki ring Colon polyp biopsy pathology pending. AVM/diverticulosis EGD 07/23 with Schatzki ring mild to moderate and moderate hiatal hernia. No active bleeding Currently on pantoprazole 40 mg daily Hemoglobin currently around 8 07/26 - colonoscopy -follow-up polyp snared had ICV. Diverticulosis. AVM's in cecum and ascending colon. : Discontinued Schultz catheter Endo: Diabetes mellitus Hypothyroidism Secondary hyperparathyroidism Holding insulin glargine 10 units at night. Currently on Aspart sliding scale insulin with Accu-Cheks every before meals and at bedtime Continue levothyroxine 75 mics grams daily for hypothyroidism Currently on D5 at 65 cc an hour Renal: Diabetic nephropathy on hemodialysis Saturday/Saturday/Saturday with Dr. Dewayne Castanon following.. Hemodialysis plan for Dr. Castanon Heme: Acute blood loss anemia Anemia of chronic kidney disease Elevated INR Leukocytosis Transfused 4 units PRBCs On Epogen 10,000 units with hemodialysis Repeat coags and CBC in AM. . ID: Status post day #4 and 2 irrigation debridement by podiatry of right foot and ankle Wound cultures 07/24 revealed Citrobacter and gram-negative rods. Currently piperacillin tazobactam and vancomycin. Infectious disease consult. Blood cultures 2 ordered 07/24 no growth today. OR Cultures are no growth Continue piperacillin/tazobactam and vancomycin day #4 FEN: Replace electrolytes as clinically indicated MSK: Status post day #4 and 2 irrigation debridement by podiatry of right foot and ankle Osteoarthritis Right foot abscess Out of bed/PT evaluate and treat MRI foot revealed flexor hallucis longus tendon synovitis with fluid along the plantar flexor. Actually abscess. Vascular surgery evaluation with Dr. Fleming. Plan for CTA lower extremity Podiatry for repeat I&D 07/27. Noted emphysematous gas in ankle/plantar aspect of foot possibly postsurgical related. Tibia/fibula negative for free gas. Access - Utilize peripheral IV. Central line if indicated Prophylaxis - GI - pantoprazole - DVT - SCD/holding pharmacological prophylaxis in light of GI bleeding Level II follow-up Cricket Arnold MD Jul 27, 2017 09:53
--- NOTE | 2017-07-27 10:52 | HHI.NPPN ---
Subjective History of Present Illness Patient is a 72-year-old with the GI bleed ESRD admitted Additional Remarks Patient is alert, no SOB, no abd. pain. Objective Data Data Vital Signs Date Time Temp Pulse Resp B/P (MAP) Pulse Ox O2 Delivery O2 Flow Rate FiO2 07/27/17 07:05 96 21 07/27/17 06:00 72 07/27/17 04:00 70 07/27/17 04:00 98.3 70 18 115/55 (75) 07/27/17 02:00 68 07/27/17 00:00 98.4 70 20 98/55 (69) 07/27/17 00:00 70 07/26/17 22:00 79 07/26/17 21:00 100.3 07/26/17 20:32 16 07/26/17 20:28 96 Nasal Cannula 2.00 07/26/17 20:00 81 27 135/57 (83) 07/26/17 20:00 83 07/26/17 20:00 101.2 83 15 109/54 (72) 99 07/26/17 18:00 79 07/26/17 16:20 79 16 103/48 (66) 100 Nasal Cannula 2 07/26/17 16:00 79 16 99/47 (64) 100 Nasal Cannula 2 07/26/17 15:50 97.9 80 16 101/50 (67) 100 Nasal Cannula 2 07/26/17 14:00 84 07/26/17 13:53 81 27 135/57 (83) 07/26/17 13:00 84 22 126/60 (82) 07/26/17 12:45 84 21 133/62 (85) 07/26/17 12:30 84 29 144/59 (87) 07/26/17 12:15 84 19 134/61 (85) 07/26/17 12:00 81 07/26/17 12:00 81 18 131/61 (84) 07/26/17 11:45 81 19 137/62 (87) 07/26/17 11:30 81 19 128/58 (81) 07/26/17 11:15 82 26 128/60 (82) 07/26/17 11:00 83 21 136/65 (88) -: 07/27/17 0505 07/27/17 0505 Physical Exam General Appearance: No Acute Distress, Comfortable Neck Neck Exam: Neck Supple Pulmonary Resp Exam: Clear Bilaterally, Breath Sounds Equal Cardiology CV Exam: Regular, Normal Sinus Rhythm Gastrointestinal/Abdomen GI Exam: Soft, Non-Tender, Bowel Sounds Present, Non-Distended Extremeties Extremities Exam: Trace Edema Neurologic Neuro Exam: Alert, Awake Psychiatric Psych Exam: Appropriate Responses Assessment/Plan Problem List: (1) ESRD (end stage renal disease) on dialysis ICD Codes: N18.6 - End stage renal failure on dialysis; Z99.2 - Dependence on renal dialysis Status: Chronic Plan: Patient has been on HD, MWF Rt foot infection surgery done follow culture possible source of infection hypoglycemia High WBC follow Hb, GI following. On Epogen with HD. (2) GI bleed ICD Codes: K92.2 - Gastrointestinal hemorrhage, unspecified Status: Acute Plan: GI consult seen EGD report (3) Anemia ICD Codes: D64.9 - Anemia, unspecified Status: Acute Plan: Low hemoglobin needs to follow (4) Diabetes mellitus ICD Codes: E11.9 - Type 2 diabetes mellitus without complications Status: Chronic Plan: Continue to monitor Problem Qualifiers (1) Diabetes mellitus: Karli Oshea MD Jul 27, 2017 10:52
--- NOTE | 2017-07-27 12:44 | PD.CAR.PN ---
CVT Progress Note Subjective/Hospital Course: Referral received Full consult TF J 07/27/17 Patient with osteomyelitis and abscess of the right foot and cultures positive for Citrobacter Koseri Underwent successful drainage of the abscesses of the foot by podiatry There is of course question whether this is going to heal adequately in the face of patient's comorbidities CTA with runoff is pending to evaluate the circulatory system and blood supply to the foot Will continue to follow patient Objective: Vital Signs Date Time Temp Pulse Resp B/P (MAP) Pulse Ox O2 Delivery O2 Flow Rate FiO2 07/27/17 07:05 96 21 07/27/17 06:00 72 07/27/17 04:00 70 07/27/17 04:00 98.3 70 18 115/55 (75) 07/27/17 02:00 68 07/27/17 00:00 98.4 70 20 98/55 (69) 07/27/17 00:00 70 07/26/17 22:00 79 07/26/17 21:00 100.3 07/26/17 20:32 16 07/26/17 20:28 96 Nasal Cannula 2.00 07/26/17 20:00 81 27 135/57 (83) 07/26/17 20:00 83 07/26/17 20:00 101.2 83 15 109/54 (72) 99 07/26/17 18:00 79 07/26/17 16:20 79 16 103/48 (66) 100 Nasal Cannula 2 07/26/17 16:00 79 16 99/47 (64) 100 Nasal Cannula 2 07/26/17 15:50 97.9 80 16 101/50 (67) 100 Nasal Cannula 2 07/26/17 14:00 84 07/26/17 13:53 81 27 135/57 (83) 07/26/17 13:00 84 22 126/60 (82) 07/26/17 12:45 84 21 133/62 (85) Labs: Laboratory Tests Test 07/27/17 05:05 White Blood Count 26.6 TH/MM3 (4.0-11.0) Red Blood Count 3.02 MIL/MM3 (4.00-5.30) Hemoglobin 8.2 GM/DL (11.6-15.3) Hematocrit 25.2 % (35.0-46.0) Mean Corpuscular Volume 83.5 FL (80.0-100.0) Mean Corpuscular Hemoglobin 27.3 PG (27.0-34.0) Mean Corpuscular Hemoglobin Concent 32.7 % (32.0-36.0) Red Cell Distribution Width 18.2 % (11.6-17.2) Platelet Count 348 TH/MM3 (150-450) Mean Platelet Volume 11.3 FL (7.0-11.0) Blood Urea Nitrogen 35 MG/DL (7-18) Creatinine 4.99 MG/DL (0.50-1.00) Random Glucose 123 MG/DL (74-106) Calcium Level 8.3 MG/DL (8.5-10.1) Sodium Level 140 MEQ/L (136-145) Potassium Level 3.8 MEQ/L (3.5-5.1) Chloride Level 104 MEQ/L (98-107) Carbon Dioxide Level 22.6 MEQ/L (21.0-32.0) Anion Gap 13 MEQ/L (5-15) Estimat Glomerular Filtration Rate 10 ML/MIN (>89) Result Diagram: 07/27/17 0505 07/27/17 0505 Amalia De La Cruz MD Jul 27, 2017 12:44
--- NOTE | 2017-07-27 17:22 | HHI.IDPN ---
Note Infectious Disease Note ID COVERAGE: Patient has no complaints. Temp lower. Patient is a 72-year-old female, presented to the hospital complaining of one week history of nausea, vomiting and black stool. Cultures of R. Foot wound growing Citrobacter and second GNR. Patient is also being evaluated by vascular surgery. Infectious Disease consultation has been requested to evaluate patient with foot infection and C/S with GNR. She is on Zosyn and Vancomycin. 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 Past Medical History Diabetes Hypertension Anemia GERD Hypothyroidism Secondary hyperparathyroidism Osteoarthritis Past Surgical History History of toe amputation AV fistula left forearm Partial hysterectomy Current Medications Vancomycin Zosyn OBJECTIVE: Vital Signs Date Time Temp Pulse Resp B/P (MAP) Pulse Ox O2 Delivery O2 Flow Rate FiO2 07/27/17 14:00 77 07/27/17 12:00 98.6 74 18 122/60 (80) 100 07/27/17 12:00 74 07/27/17 10:00 69 07/27/17 08:00 98.3 71 20 117/57 (77) 100 07/27/17 08:00 71 07/27/17 07:05 96 21 07/27/17 06:00 72 07/27/17 04:00 70 07/27/17 04:00 98.3 70 18 115/55 (75) 07/27/17 02:00 68 07/27/17 00:00 98.4 70 20 98/55 (69) 07/27/17 00:00 70 07/26/17 22:00 79 07/26/17 21:00 100.3 07/26/17 20:32 16 07/26/17 20:28 96 Nasal Cannula 2.00 07/26/17 20:00 81 27 135/57 (83) 07/26/17 20:00 83 07/26/17 20:00 101.2 83 15 109/54 (72) 99 07/26/17 18:00 79 Laboratory Tests Test 07/26/17 05:00 07/27/17 05:05 White Blood Count 35.8 TH/MM3 26.6 TH/MM3 Red Blood Count 3.22 MIL/MM3 3.02 MIL/MM3 Hemoglobin 8.6 GM/DL 8.2 GM/DL Hematocrit 27.2 % 25.2 % Mean Corpuscular Volume 84.3 FL 83.5 FL Mean Corpuscular Hemoglobin 26.7 PG 27.3 PG Mean Corpuscular Hemoglobin Concent 31.7 % 32.7 % Red Cell Distribution Width 18.6 % 18.2 % Platelet Count 262 TH/MM3 348 TH/MM3 Mean Platelet Volume 10.6 FL 11.3 FL Laboratory Tests Test 07/26/17 05:00 07/27/17 05:05 Blood Urea Nitrogen 55 MG/DL 35 MG/DL Creatinine 6.39 MG/DL 4.99 MG/DL Random Glucose 70 MG/DL 123 MG/DL Calcium Level 7.7 MG/DL 8.3 MG/DL Phosphorus Level 4.0 MG/DL Magnesium Level 1.7 MG/DL Sodium Level 140 MEQ/L 140 MEQ/L Potassium Level 4.0 MEQ/L 3.8 MEQ/L Chloride Level 103 MEQ/L 104 MEQ/L Carbon Dioxide Level 25.9 MEQ/L 22.6 MEQ/L Anion Gap 11 MEQ/L 13 MEQ/L Estimat Glomerular Filtration Rate 8 ML/MIN 10 ML/MIN Microbiology Date/Time Source Procedure Growth Status 07/25/17 20:05 Abscess Foot Fungal Smear - Final NO FUNGAL ELEMENTS SEEN. Resulted 07/25/17 20:05 Abscess Foot Fungal Culture Pending Resulted 07/25/17 20:05 Abscess Foot Acid Fast Stain - Final NO ACID FAST BACILLI SEEN Resulted 07/25/17 20:05 Abscess Foot Mycobacterial Culture Pending Resulted 07/25/17 20:05 Abscess Foot Gram Stain - Final Resulted 07/25/17 20:05 Abscess Foot Wound Culture - Preliminary NO GROWTH IN 24 HOURS. Resulted Last Impressions Tibia/Fibula X-Ray 07/26/17 0628 Signed Impressions: Service Date/Time: Wednesday, July 26, 2017 06:46 - CONCLUSION: Distal leg soft tissue swelling without an acute bony abnormality. Jacob Hall MD Lower Extremity CT 07/26/17 0000 Signed Impressions: Service Date/Time: Wednesday, July 26, 2017 13:29 - CONCLUSION: 1. Focal emphysema with spontaneously dense material is seen in the soft tissues just posterior to the ankle joint. 2. Focal emphysema with spontaneously dense material is seen in the soft tissues along the plantar surface of the foot in a linear fashion. The findings may be postsurgical. This needs to be correlated with any recent surgery.. Nain Castillo MD Foot X-Ray 07/26/17 0000 Signed Impressions: Service Date/Time: Wednesday, July 26, 2017 06:50 - CONCLUSION: Soft tissue changes without an acute bony abnormality. Jacob Hall MD Ankle X-Ray 07/26/17 0000 Signed Impressions: Service Date/Time: Wednesday, July 26, 2017 06:44 - CONCLUSION: Nonspecific soft tissue swelling of the right ankle region. No acute bony abnormality. Jacob Hall MD Foot MRI 07/25/17 0000 Signed Impressions: Service Date/Time: July 12:05 - CONCLUSION: 1. Tenosynovitis of the flexor hallucis longus tendon with fluid extending to the plantar surface. 2. Mild bone marrow edema involving the proximal phalanx of the great toe which may be reactive. 3. No discrete evidence of post [place] line is. Eder Nieto MD Chest X-Ray 07/23/17 0000 Signed Impressions: Service Date/Time: Sunday, July 23, 2017 03:30 - CONCLUSION: Stable appearance of cardiomegaly and central vascular engorgement. Praneeth Barrientos MD PE: GENERAL: Patient is in no acute distress. HEENT: EOMI, No icterus. NECK: Supple. LUNGS: Clear breath sounds. CARDIAC: Regular rate and rhythm ABDOMEN: Soft, non tender. EXTREMITIES: No CCE. Left foot/ankle has dressing in place. SKIN: No rash. IMPRESSION Sepsis due to infection RLE - ?extent, initially just noted to have ulcer in big toe, but infection noted to be also in the ankle - S/P I and D, C/S Citrobacter and second GNR Severe anemia, GIB - EGD ok ESRD on HD MWF RECOMMENDATION Continue Zosyn Continue Vanco Follow C/S and adjust Abx Repeat debridement plan for 07/27 Follow temps and CBC Monitor progress Lauro Gillis MD Jul 27, 2017 17:22
[2017-07-27] MEDS: MIRTAZAPINE 15 MG TAB PO SCH (22:02)
[2017-07-27] MEDS: hydrOXYzine HCL 25 MG TAB PO SCH (22:02)
--- NOTE | 2017-07-27 23:00 | HHI.PR ---
Subjective Remarks Patient is seen bedside, reports no nausea vomiting fevers or chills. Patient is withdrawn and fatigued. She is just tired and hungry. Reports mild pain to right lower extremity. Objective Vital Signs Date Time Temp Pulse Resp B/P (MAP) Pulse Ox O2 Delivery O2 Flow Rate FiO2 07/27/17 21:01 95 Nasal Cannula 2.00 07/27/17 20:00 99.1 75 18 105/52 (69) 95 07/27/17 20:00 75 07/27/17 18:00 76 07/27/17 16:00 74 07/27/17 16:00 98.3 76 16 115/56 (75) 94 07/27/17 14:00 77 07/27/17 12:00 98.6 74 18 122/60 (80) 100 07/27/17 12:00 74 07/27/17 10:00 69 07/27/17 08:00 98.3 71 20 117/57 (77) 100 07/27/17 08:00 71 07/27/17 07:05 96 21 07/27/17 06:00 72 07/27/17 04:00 70 07/27/17 04:00 98.3 70 18 115/55 (75) 07/27/17 02:00 68 07/27/17 00:00 98.4 70 20 98/55 (69) 07/27/17 00:00 70 I/O 07/26/17 07/26/17 07/26/17 07/27/17 07/27/17 07/27/17 07:00 15:00 23:00 07:00 15:00 23:00 Intake Total 552.2 ml 100 ml 1206 ml 1603.4 ml 1015 ml Output Total 2000 ml 0 ml 0 ml 0 ml Balance 552.2 ml -1900 ml 1206 ml 1603.4 ml 1015 ml Intake Oral 240 ml 0 ml 120 ml 140 ml IV Total 312.2 ml 100 ml 706 ml 1483.4 ml 875 ml Other 500 ml Output Urine Total 0 ml 0 ml 0 ml Hemodialysis 2000 ml # Voids 0 0 # Bowel Movements 2 1 0 Result Diagram: 07/27/17 0505 07/27/17 0505 Procedures Patient is status post right foot and ankle incision and drainage DOS: July 25, 2017 Other Results Microbiology Date/Time Source Procedure Growth Status 07/25/17 20:05 Abscess Foot Fungal Smear - Final NO FUNGAL ELEMENTS SEEN. Resulted 07/25/17 20:05 Abscess Foot Fungal Culture Pending Resulted 07/25/17 20:05 Abscess Foot Acid Fast Stain - Final NO ACID FAST BACILLI SEEN Resulted 07/25/17 20:05 Abscess Foot Mycobacterial Culture Pending Resulted 07/25/17 20:05 Abscess Foot Gram Stain - Final Resulted 07/25/17 20:05 Abscess Foot Wound Culture - Preliminary NO GROWTH IN 24 HOURS. Resulted Objective Remarks Vascular: Capillary refill time to digits x5 of right foot within normal limits. DP/PT non palpable to right LE. Continued swelling decreased to right LE. Neuro: Decreased pinpoint sensation. Gross sensation intact, no hyper algesia noted. Derm: Dressing the right lower extremity clean dry and intact. Drainage noted to dressing. Upon removal of dressing packing noted to medial, lateral ankle and plantar foot. Skin well coapted with sutures intact. Maceration noted periwound. No ascending erythema noted. MSK: Active/passive dorsiflexion of digits x5. Able to perform ankle range of motion. Pain on palpation to right foot and leg. Medications and IVs Current Medications Medications (Trade) Dose Ordered Sig/Rita Route Start Time Stop Time Status Last Admin (NS Flush) 2 ml UNSCH PRN IV FLUSH 07/22/17 16:00 (NS Flush) 2 ml BID IV FLUSH 07/22/17 21:00 07/27/17 19:55 (Tylenol) 650 mg Q6H PRN PO 07/22/17 16:00 07/26/17 19:32 (Zofran Inj) 4 mg Q6H PRN IV PUSH 07/22/17 16:00 Miscellaneous Information 1 Q361D XX 07/22/17 16:00 (Chlorhexidine 2% Cloth) 3 pack Taper DAILY@04 TOP 07/23/17 04:00 07/19/18 03:59 07/27/17 03:05 (Chlorhexidine 2% Cloth) 3 pack UNSCH PRN TOP 07/22/17 16:00 (Velma-Colace) 1 tab BID PO 07/22/17 21:00 07/27/17 21:00 (Milk Of Magnesia Liq) 30 ml Q12H PRN PO 07/22/17 16:00 (Senokot) 17.2 mg Q12H PRN PO 07/22/17 16:00 (Dulcolax Supp) 10 mg DAILY PRN RECTAL 07/22/17 16:00 (Lactulose Liq) 30 ml DAILY PRN PO 07/22/17 16:00 Sodium Chloride 1,000 ml @ 0 mls/hr Q0M PRN OTHER 07/22/17 16:21 (Heparin Inj) 8,000 units UNSCH PRN IV FLUSH 07/22/17 16:30 Sodium Chloride 1,000 ml @ 200 mls/hr Q5H PRN IV 07/22/17 16:21 Sodium Chloride 1,000 ml @ 0 mls/hr Q0M PRN OTHER 07/22/17 16:21 (Mannitol Inj) 12.5 gm UNSCH PRN IV 07/22/17 16:30 Albumin Human 100 ml @ 60 mls/hr UNSCH PRN IV 07/22/17 16:30 (NS Flush) 5 ml UNSCH PRN IV FLUSH 07/22/17 16:30 (Heparin Inj) UNSCH PRN .XX 07/22/17 16:30 (Gentamicin (Dialysis) Inj) 20 mg UNSCH PRN OTHER 07/22/17 16:30 (Zofran Inj) 4 mg UNSCH PRN IV PUSH 07/22/17 16:30 (Tylenol) 650 mg UNSCH PRN PO 07/22/17 16:30 07/25/17 11:36 (Benadryl) 25 mg UNSCH PRN PO 07/22/17 16:30 (Nitrostat Sl) 0.4 mg UNSCH PRN SL 07/22/17 16:30 (Catapres) 0.1 mg UNSCH PRN PO 07/22/17 16:30 (Epogen Inj) 10,000 units UNSCH PRN IV PUSH 07/22/17 16:30 07/26/17 09:39 (Gelfoam 12 Mm/7 Mm Top) 1 foam UNSCH PRN TOP 07/22/17 16:30 07/26/17 09:39 (Atarax) 25 mg HS PO 07/22/17 21:00 07/27/17 22:02 (Synthroid) 75 mcg DAILY@0600 PO 07/23/17 06:00 07/27/17 05:52 (Remeron) 15 mg HS PO 07/22/17 21:00 07/27/17 22:02 (Nephrocaps) 1 cap DAILY PO 07/23/17 09:00 07/27/17 08:29 (Levemir Inj) 10 units HS SQ 07/22/17 21:00 Future Hold 07/22/17 21:00 (D50w (Vial) Inj) 25 ml UNSCH PRN IV 07/22/17 17:15 07/25/17 08:04 (Glucagon Inj) 1 mg UNSCH PRN IM/SQ 07/22/17 17:15 Dextrose/Sodium Chloride 1,000 ml @ 65 mls/hr [id number] IV 07/23/17 15:00 07/27/17 22:02 (Santyl Oint) 1 applic DAILY TOPICAL 07/25/17 09:00 07/27/17 08:28 Pharmacy Profile Note 0 ml @ 0 mls/hr UNSCH OTHER 07/24/17 16:00 Piperacillin Sod/ Tazobactam Sod 50 ml @ 100 mls/hr Q8H IV 07/24/17 18:00 07/27/17 19:57 (Narcan Inj) 0.4 mg UNSCH PRN IV PUSH 07/25/17 22:30 Vancomycin HCl 1000 mg/Sodium Chloride 250 ml @ 250 mls/hr WITH DIALYSIS IV 07/26/17 11:00 (NovoLOG SUPPLEMENTAL SCALE) 1 ACHS SQ 07/27/17 12:00 07/27/17 17:00 (Protonix) 40 mg DAILY PO 07/28/17 09:00 Assessment and Plan Assessment and Plan 72-year-old female with right foot and ankle abscess status post incision and drainage to surgery 07/25 Patient examined and treated with all questions answered To OR tomorrow NPO tonight at midnight Will perform repeat debridement and irrigation 07/28 for limb salvage attempts WBC trending down Improvement noted to RLE ID consult appreciated Performed bedside irrigation with dressing change Spoke in great detail with patient's daughter over the phone concerning severity of foot and ankle infection and possible / unfortunately probable loss of limb depending on vascular consult Pooja Galvez DPM Jul 27, 2017 23:00
[2017-07-28] VITALS (12 sets, daily range): BP systolic 97–162; BP diastolic 53–73; PULSE 69–97; RESP 16–21; TEMP 97–99.1; O2SAT 94–100
[2017-07-28] MEDS: PIPERACIL-TAZO 2.25 GM PREMIX 50 ML IV SCH ×3 (01:50→18:12)
[2017-07-28] MEDS: CHLORHEXIDINE GLUCONATE 2 % 1 PACK (2 CLOTHS) TOP SCH (04:00)
[2017-07-28] MEDS: LEVOTHYROXINE SODIUM 75 MCG TAB PO SCH (04:46)
[2017-07-28 05:00] LABS: AUTOMATED NEUTROPHIL # 13.7 TH/MM3 (1.8-7.7); BASOPHIL # 0.1 TH/MM3 (0-0.2); BASOPHIL % 0.4 % (0.0-2.0); EOSINOPHIL # 0.2 TH/MM3 (0-0.4); EOSINOPHIL % 1.4 % (0.0-4.0); HEMATOCRIT 22.1 % (35.0-46.0); HEMO FLAGS DIFF FINAL; LYMPH % 5.2 % (9.0-44.0); LYMPHOCYTE # 0.8 TH/MM3 (1.0-4.8); MEAN CELL VOLUME 82.5 FL (80.0-100.0); MEAN CORPUSCULAR HEMOGLOBIN 27.4 PG (27.0-34.0); MEAN CORPUSCULAR HGB CONC 33.2 % (32.0-36.0); MONO % 8.5 % (0.0-8.0); NEUT % 84.5 % (16.0-70.0); PLATELET COUNT 413 TH/MM3 (150-450); RED BLOOD COUNT 2.68 MIL/MM3 (4.00-5.30); RED CELL DISTRIBUTION WIDTH 18.8 % (11.6-17.2); WHITE BLOOD COUNT 16.2 TH/MM3 (4.0-11.0)
[2017-07-28 05:17] LABS: BICARBONATE 24.5 MEQ/L (21.0-32.0); MAGNESIUM 1.8 MG/DL (1.5-2.5); POTASSIUM 3.6 MEQ/L (3.5-5.1)
[2017-07-28] MEDS: SODIUM CHLORIDE 0.9% FLUSH 10 ML FLUSH IV FLUSH SCH ×2 (08:00→21:00)
[2017-07-28] MEDS: DOCUSATE SODIUM 50 MG/SENNA 8.6 MG TAB PO SCH ×2 (08:01→22:33)
[2017-07-28] MEDS: PANTOPRAZOLE SOD 40 MG DELAYED RELEASE TAB PO SCH (08:01)
[2017-07-28] MEDS: VITAMIN B CMPLX/VITC/FOLIC AC CAP PO SCH (08:01)
[2017-07-28] MEDS: COLLAGENASE OINT 30 GM TUBE TOPICAL SCH (08:01)
[2017-07-28] MEDS: INSULIN ASPART SUPPLEMENTAL SCALE SQ SCH ×4 (08:10→22:33)
--- NOTE | 2017-07-28 09:52 | HHI.NPPN ---
Subjective History of Present Illness Patient is a 72-year-old with the GI bleed ESRD admitted Additional Remarks Patient is alert, no SOB, no abd. pain, now NPO for the procedure. Objective Data Data Vital Signs Date Time Temp Pulse Resp B/P (MAP) Pulse Ox O2 Delivery O2 Flow Rate FiO2 07/28/17 08:00 98.6 71 16 119/56 (77) 100 07/28/17 08:00 71 07/28/17 07:11 100 Nasal Cannula 2.00 07/28/17 06:00 69 07/28/17 04:00 73 07/28/17 04:00 98.5 73 18 107/54 (71) 95 07/28/17 02:00 74 07/28/17 00:00 72 07/28/17 00:00 98.9 72 20 97/55 (69) 94 07/27/17 22:00 75 07/27/17 21:01 95 Nasal Cannula 2.00 07/27/17 20:00 99.1 75 18 105/52 (69) 95 07/27/17 20:00 75 07/27/17 18:00 76 07/27/17 16:00 74 07/27/17 16:00 98.3 76 16 115/56 (75) 94 07/27/17 14:00 77 07/27/17 12:00 98.6 74 18 122/60 (80) 100 07/27/17 12:00 74 07/27/17 10:00 69 -: 07/28/17 0419 07/28/17 0419 Physical Exam General Appearance: No Acute Distress, Comfortable Neck Neck Exam: Neck Supple Pulmonary Resp Exam: Clear Bilaterally, Breath Sounds Equal Cardiology CV Exam: Regular, Normal Sinus Rhythm Gastrointestinal/Abdomen GI Exam: Soft, Non-Tender, Bowel Sounds Present, Non-Distended Extremeties Extremities Exam: Trace Edema Neurologic Neuro Exam: Alert, Awake Psychiatric Psych Exam: Appropriate Responses Assessment/Plan Problem List: (1) ESRD (end stage renal disease) on dialysis ICD Codes: N18.6 - End stage renal failure on dialysis; Z99.2 - Dependence on renal dialysis Status: Chronic Plan: Patient has been on HD, MWF Rt foot infection surgery done follow culture possible source of infection hypoglycemia High WBC follow Hb, GI following. On Epogen with HD. For debridement of the foot. HD will be in AM. (2) GI bleed ICD Codes: K92.2 - Gastrointestinal hemorrhage, unspecified Status: Acute Plan: GI consult seen EGD report (3) Anemia ICD Codes: D64.9 - Anemia, unspecified Status: Acute Plan: Low hemoglobin needs to follow (4) Diabetes mellitus ICD Codes: E11.9 - Type 2 diabetes mellitus without complications Status: Chronic Plan: Continue to monitor Problem Qualifiers (1) Diabetes mellitus: Karli Oshea MD Jul 28, 2017 09:52
--- NOTE | 2017-07-28 10:06 | PD.CAR.PN ---
CVT Progress Note Subjective/Hospital Course: Referral received Full consult TF Jean Paul 07/27/17 Patient with osteomyelitis and abscess of the right foot and cultures positive for Citrobacter Koseri Underwent successful drainage of the abscesses of the foot by podiatry There is of course question whether this is going to heal adequately in the face of patient's comorbidities CTA with runoff is pending to evaluate the circulatory system and blood supply to the foot Will continue to follow patient 07/28/17 No change in current status Post debridement and drainage of the foot Patient doing okay at this time CTA with a runoff is pending Nothing to add to care till I see the CTA with runoff Objective: Vital Signs Date Time Temp Pulse Resp B/P (MAP) Pulse Ox O2 Delivery O2 Flow Rate FiO2 07/28/17 08:00 98.6 71 16 119/56 (77) 100 07/28/17 08:00 71 07/28/17 07:11 100 Nasal Cannula 2.00 07/28/17 06:00 69 07/28/17 04:00 73 07/28/17 04:00 98.5 73 18 107/54 (71) 95 07/28/17 02:00 74 07/28/17 00:00 72 07/28/17 00:00 98.9 72 20 97/55 (69) 94 07/27/17 22:00 75 07/27/17 21:01 95 Nasal Cannula 2.00 07/27/17 20:00 99.1 75 18 105/52 (69) 95 07/27/17 20:00 75 07/27/17 18:00 76 07/27/17 16:00 74 07/27/17 16:00 98.3 76 16 115/56 (75) 94 07/27/17 14:00 77 07/27/17 12:00 98.6 74 18 122/60 (80) 100 07/27/17 12:00 74 Labs: Laboratory Tests Test 07/28/17 04:19 White Blood Count 16.2 TH/MM3 (4.0-11.0) Red Blood Count 2.68 MIL/MM3 (4.00-5.30) Hemoglobin 7.4 GM/DL (11.6-15.3) Hematocrit 22.1 % (35.0-46.0) Mean Corpuscular Volume 82.5 FL (80.0-100.0) Mean Corpuscular Hemoglobin 27.4 PG (27.0-34.0) Mean Corpuscular Hemoglobin Concent 33.2 % (32.0-36.0) Red Cell Distribution Width 18.8 % (11.6-17.2) Platelet Count 413 TH/MM3 (150-450) Mean Platelet Volume 10.5 FL (7.0-11.0) Neutrophils (%) (Auto) 84.5 % (16.0-70.0) Lymphocytes (%) (Auto) 5.2 % (9.0-44.0) Monocytes (%) (Auto) 8.5 % (0.0-8.0) Eosinophils (%) (Auto) 1.4 % (0.0-4.0) Basophils (%) (Auto) 0.4 % (0.0-2.0) Neutrophils # (Auto) 13.7 TH/MM3 (1.8-7.7) Lymphocytes # (Auto) 0.8 TH/MM3 (1.0-4.8) Monocytes # (Auto) 1.4 TH/MM3 (0-0.9) Eosinophils # (Auto) 0.2 TH/MM3 (0-0.4) Basophils # (Auto) 0.1 TH/MM3 (0-0.2) CBC Comment DIFF FINAL Differential Comment Blood Urea Nitrogen 40 MG/DL (7-18) Creatinine 5.97 MG/DL (0.50-1.00) Random Glucose 203 MG/DL (74-106) Calcium Level 8.2 MG/DL (8.5-10.1) Phosphorus Level 4.2 MG/DL (2.5-4.9) Magnesium Level 1.8 MG/DL (1.5-2.5) Sodium Level 141 MEQ/L (136-145) Potassium Level 3.6 MEQ/L (3.5-5.1) Chloride Level 106 MEQ/L (98-107) Carbon Dioxide Level 24.5 MEQ/L (21.0-32.0) Anion Gap 11 MEQ/L (5-15) Estimat Glomerular Filtration Rate 8 ML/MIN (>89) Result Diagram: 07/28/17 0419 07/28/17 0419 Amalia De La Cruz MD Jul 28, 2017 10:06
--- NOTE | 2017-07-28 10:30 | HHI.GIFU ---
Subjective Remarks Patient resting in bed in no apparent distress. States she is hungry and requesting to eat. Denies BM today. Objective Vitals I&O Vital Signs Date Time Temp Pulse Resp B/P (MAP) Pulse Ox O2 Delivery O2 Flow Rate FiO2 07/28/17 08:00 98.6 71 16 119/56 (77) 100 07/28/17 08:00 71 07/28/17 07:11 100 Nasal Cannula 2.00 07/28/17 06:00 69 07/28/17 04:00 73 07/28/17 04:00 98.5 73 18 107/54 (71) 95 07/28/17 02:00 74 07/28/17 00:00 72 07/28/17 00:00 98.9 72 20 97/55 (69) 94 07/27/17 22:00 75 07/27/17 21:01 95 Nasal Cannula 2.00 07/27/17 20:00 99.1 75 18 105/52 (69) 95 07/27/17 20:00 75 07/27/17 18:00 76 07/27/17 16:00 74 07/27/17 16:00 98.3 76 16 115/56 (75) 94 07/27/17 14:00 77 07/27/17 12:00 98.6 74 18 122/60 (80) 100 07/27/17 12:00 74 I/O 07/27/17 07/27/17 07/27/17 07/28/17 07/28/17 07/28/17 07:00 15:00 23:00 07:00 15:00 23:00 Intake Total 1603.4 ml 1015 ml 643 ml Output Total 0 ml 0 ml 0 ml Balance 1603.4 ml 1015 ml 643 ml Intake Oral 120 ml 140 ml 240 ml IV Total 1483.4 ml 875 ml 403 ml Output Urine Total 0 ml 0 ml 0 ml # Voids 0 # Bowel Movements 0 0 Laboratory Laboratory Tests Test 07/28/17 04:19 White Blood Count 16.2 Red Blood Count 2.68 Hemoglobin 7.4 Hematocrit 22.1 Mean Corpuscular Volume 82.5 Mean Corpuscular Hemoglobin 27.4 Mean Corpuscular Hemoglobin Concent 33.2 Red Cell Distribution Width 18.8 Platelet Count 413 Mean Platelet Volume 10.5 Neutrophils (%) (Auto) 84.5 Lymphocytes (%) (Auto) 5.2 Monocytes (%) (Auto) 8.5 Eosinophils (%) (Auto) 1.4 Basophils (%) (Auto) 0.4 Neutrophils # (Auto) 13.7 Lymphocytes # (Auto) 0.8 Monocytes # (Auto) 1.4 Eosinophils # (Auto) 0.2 Basophils # (Auto) 0.1 CBC Comment DIFF FINAL Differential Comment Blood Urea Nitrogen 40 Creatinine 5.97 Random Glucose 203 Calcium Level 8.2 Phosphorus Level 4.2 Magnesium Level 1.8 Sodium Level 141 Potassium Level 3.6 Chloride Level 106 Carbon Dioxide Level 24.5 Anion Gap 11 Estimat Glomerular Filtration Rate 8 Date/Time Source Procedure Growth Status 07/24/17 12:48 Blood Peripheral Aerobic Blood Culture - Preliminary NO GROWTH IN 3 DAYS Resulted 07/24/17 12:48 Blood Peripheral Anaerobic Blood Culture - Preliminary NO GROWTH IN 3 DAYS Resulted 07/25/17 20:05 Abscess Foot Fungal Smear - Final NO FUNGAL ELEMENTS SEEN. Resulted 07/25/17 20:05 Abscess Foot Fungal Culture Pending Resulted Imaging Last Impressions Tibia/Fibula X-Ray 07/26/17 0628 Signed Impressions: Service Date/Time: Wednesday, July 26, 2017 06:46 - CONCLUSION: Distal leg soft tissue swelling without an acute bony abnormality. Jacob Hall MD Lower Extremity CT 07/26/17 0000 Signed Impressions: Service Date/Time: Wednesday, July 26, 2017 13:29 - CONCLUSION: 1. Focal emphysema with spontaneously dense material is seen in the soft tissues just posterior to the ankle joint. 2. Focal emphysema with spontaneously dense material is seen in the soft tissues along the plantar surface of the foot in a linear fashion. The findings may be postsurgical. This needs to be correlated with any recent surgery.. Nain Castillo MD Foot X-Ray 07/26/17 0000 Signed Impressions: Service Date/Time: Wednesday, July 26, 2017 06:50 - CONCLUSION: Soft tissue changes without an acute bony abnormality. Jacob Hall MD Ankle X-Ray 07/26/17 0000 Signed Impressions: Service Date/Time: Wednesday, July 26, 2017 06:44 - CONCLUSION: Nonspecific soft tissue swelling of the right ankle region. No acute bony abnormality. Jacob Hall MD Foot MRI 07/25/17 0000 Signed Impressions: Service Date/Time: July 12:05 - CONCLUSION: 1. Tenosynovitis of the flexor hallucis longus tendon with fluid extending to the plantar surface. 2. Mild bone marrow edema involving the proximal phalanx of the great toe which may be reactive. 3. No discrete evidence of post [place] line is. Eder Nieto MD Chest X-Ray 07/23/17 0000 Signed Impressions: Service Date/Time: Sunday, July 23, 2017 03:30 - CONCLUSION: Stable appearance of cardiomegaly and central vascular engorgement. Praneeth Barrientos MD Physical Exam HEENT: Normocephalic; atraumatic CHEST: CTA CARDIAC: RRR ABDOMEN: Soft, nondistended, nontender; no hepatosplenomegaly; bowel sounds active x 4. EXTREMITIES: No clubbing, cyanosis, or edema. SKIN: Normal; no rash; no jaundice. [employer]: No focal deficits; alert and oriented times three. Assessment and Plan Plan ASSESSMENT: - Anemia- Microcytic, hypochromic. Likely multifactorial. Pt has ESRD and receives hemodialysis. Complaints of black stool for the past week with occasional coffee ground emesis. Denies history of PUD or GIB. Has been taking an increasing amount of Ibuprofen over the past week due to aches in the morning. EGD (07/23) --> Schatzki ring mild to moderate. Hiatal hernia. S/P 4 units of PRBCs, last unit received Jul 24. Colonoscopy (07/26) --> One small polyp at ICV. Removed with cold forceps. Diverticulosis. Few small possible AVMs in ascending. No active bleeding No intervention. Biopsy pending. Protonix to BID dosing. Currently NPO for foot and ankle I&D. - ESRD- per attending- received hemodialysis yesterday. T, TH, Sat. Epoetin. 07/28/17-- Today HH 7.4/22.1. Yesterday HH was 8.2/25.2. No active bleeding noted. PLAN: - Consider capsule endoscopy to study small bowel - Continue PPI - Monitor H/H - Transfuse as needed - Supportive care - Further recommendations to follow based on results of above Patient seen and examined by Dr. Nunez and myself and this note is written on his behalf. Tracy Duenas Jul 28, 2017 10:30
--- NOTE | 2017-07-28 10:41 | HHI.CCPN ---
Subjective Remarks/Hospital Course 72-year-old female with a medical history significant for end- stage renal disease on hemodialysis, hypertension who was brought to the ER with nausea vomiting and black tarry stools which have been going on for about a week. She is usually dialyzed on Saturday and Fridays and follows with Dr. Buchanan. She missed her hemodialysis session today due to significant weakness. Patient was brought to the ER by EMS and was found to have a hemoglobin of 4.9 as well as hyperkalemia with potassium 6.7. She was not hypotensive. She complained of generalized weakness otherwise some shortness of breath. Denied any chest pain. Denied any fever or chills. She was given medications for hyperkalemia by ER physician and 3 units PRBCs were ordered for her anemia. Patient was accepted for admission by critical care medicine service. Nephrology was also contacted and Dr. Castanon is arranging for hemodialysis. When I evaluated the patient in the ER she was laying in the ER stretcher complaining of feeling thirsty. She did not wish to keep her O2 nasal cannula on. She was maintaining her O2 sats and blood pressure. History was obtained by reviewing records, discussion with patient and her family members as well as ER physician and nursing staff. 07/23: hypoglycemic overnight. plan for EGD today. 07/24: Hemodynamically stable. Status post debridement of right plantar aspect of foot. Will be transfuse 1 additional unit PRBC today. Plan for colonoscopy tomorrow. 07/25: Episodic hypoglycemia overnight. Remains on D5. Patient family brought in eggs and sausage per report. 07/26: Status post I&D right foot and ankle overnight. Hemodynamically stable. Seen by vascular surgery today. Plan for repeat I&D in AM. Flat effect. Subjective 07/27: Afebrile. Status post colonoscopy yesterday with 1: Abdomen. Diverticulosis seen along with nonbleeding AVMs in the cecum and ascending colon. Reviewed CT lower extremity. Subjective is here possibly surgery related. Plan for CT angiography lower extremity per Dr. De La Cruz/vascular surgery. -2L hemodialysis yesterday. 07/28: No acute events overnight. Plan for debridement of right foot ulcer scheduled today. Objective Vital Signs Date Time Temp Pulse Resp B/P (MAP) Pulse Ox O2 Delivery O2 Flow Rate FiO2 07/28/17 08:00 98.6 71 16 119/56 (77) 100 07/28/17 07:11 Nasal Cannula 2.00 07/27/17 07:05 21 Intake and Output 07/28/17 07/28/17 07/28/17 07:59 15:59 23:59 Intake Total 643 ml Output Total 0 ml Balance 643 ml Result Diagram: 07/28/17 0419 07/28/17 0419 Imaging Last Impressions Tibia/Fibula X-Ray 07/26/17 0628 Signed Impressions: Service Date/Time: Wednesday, July 26, 2017 06:46 - CONCLUSION: Distal leg soft tissue swelling without an acute bony abnormality. Jacob Hall MD Foot X-Ray 07/26/17 0000 Signed Impressions: Service Date/Time: Wednesday, July 26, 2017 06:50 - CONCLUSION: Soft tissue changes without an acute bony abnormality. Jacob Hall MD Ankle X-Ray 07/26/17 0000 Signed Impressions: Service Date/Time: Wednesday, July 26, 2017 06:44 - CONCLUSION: Nonspecific soft tissue swelling of the right ankle region. No acute bony abnormality. Jacob Hall MD Foot MRI 07/25/17 0000 Signed Impressions: Service Date/Time: July 12:05 - CONCLUSION: 1. Tenosynovitis of the flexor hallucis longus tendon with fluid extending to the plantar surface. 2. Mild bone marrow edema involving the proximal phalanx of the great toe which may be reactive. 3. No discrete evidence of post GA line is. Eder Nieto MD Chest X-Ray 07/23/17 0000 Signed Impressions: Service Date/Time: Sunday, July 23, 2017 03:30 - CONCLUSION: Stable appearance of cardiomegaly and central vascular engorgement. Praneeth Barrientos MD Objective Remarks GENERAL: 72 AA Female currently resting in bed on room air in no acute distress SKIN: Warm and dry. HEAD: Atraumatic. Normocephalic. EYES: Pupils equal and round about 3 mm bilaterally and reactive. No scleral icterus. No injection or drainage. ENT: No nasal bleeding or discharge. Mucous membranes pink and moist. NECK: Trachea midline. No JVD. CARDIOVASCULAR: Regular rate and rhythm. S1, S2. No S4. Without murmur RESPIRATORY: Clear to auscultation. Breath sounds equal bilaterally. GASTROINTESTINAL: Abdomen soft, non-tender, nondistended. Hepatic and splenic margins not palpable. MUSCULOSKELETAL: First phalanx/plantar ulcer currently wrapped in Kerlix on right lower extremity. Prior ulceration documented by podiatry. Positive edema.. Positive thrill left upper extremity NEUROLOGICAL: Awake and alert. No obvious cranial nerve deficits. Motor grossly within normal limits. 5/5 muscle strength in the arms and legs. Normal speech. A/P Assessment and Plan Neuro/Psych: History of cataracts Depression Continue mirtazapine 15 mg at night and hydroxyzine 25 mg at night for depression/anxiety Acetaminophen for fever/pain 1-10 CV: History of hypertension Currently on D5 normal saline at42 cc an hour, while NPO status for surgery Holding home medications of amlodipine 10 mg daily lisinopril 20 mg daily light of hypotension Holding home medications aspirin 81 mg a light of GI bleeding Resp: Nasal cannula to maintain saturations greater than equal to 90%. On room air Incentive spirometry while awake As needed albuterol aerosols every 2 hours. Dyspnea GI: Gastroesophageal reflux disease Hiatal hernia History of hepatitis C Schatzki ring Colon polyp biopsy pathology pending. AVM/diverticulosis EGD 07/23 with Schatzki ring mild to moderate and moderate hiatal hernia. No active bleeding Currently on pantoprazole 40 mg daily Hemoglobin currently around 8 07/26 - colonoscopy -follow-up polyp snared had ICV. Diverticulosis. AVM's in cecum and ascending colon. : Discontinued Schultz catheter Endo: Diabetes mellitus Hypothyroidism Secondary hyperparathyroidism Holding insulin glargine 10 units at night. Currently on Aspart sliding scale insulin with Accu-Cheks every before meals and at bedtime Continue levothyroxine 75 mics grams daily for hypothyroidism Currently on D5 at 42 cc an hour Renal: Diabetic nephropathy on hemodialysis Saturday/Saturday/Saturday with Dr. Dewayne Castanon following.. Hemodialysis plan for Dr. Castanon Heme: Acute blood loss anemia Anemia of chronic kidney disease Elevated INR Leukocytosis Transfused 4 units PRBCs On Epogen 10,000 units with hemodialysis Repeat coags and CBC in AM. . ID: Status post day #5 and 2 irrigation debridement by podiatry of right foot and ankle. 07/28 debridement scheduled Wound cultures 07/24 revealed Citrobacter and gram-negative rods. Currently piperacillin tazobactam and vancomycin. Infectious disease consult. Blood cultures 2 ordered 07/24 no growth today. OR Cultures are no growth Continue piperacillin/tazobactam and vancomycin day #5 FEN: Replace electrolytes as clinically indicated MSK: Status post day #5 and 2 irrigation debridement by podiatry of right foot and ankle Osteoarthritis Right foot abscess Out of bed/PT evaluate and treat MRI foot revealed flexor hallucis longus tendon synovitis with fluid along the plantar flexor. Actually abscess. Vascular surgery evaluation with Dr. Fleming. Plan for CTA lower extremity Podiatry for repeat I&D 07/27. Noted emphysematous gas in ankle/plantar aspect of foot possibly postsurgical related. Tibia/fibula negative for free gas. Access - Utilize peripheral IV. Central line if indicated Prophylaxis - GI - pantoprazole - DVT - SCD/holding pharmacological prophylaxis in light of GI bleeding Level II follow-up Physician Lissa Rodriguez MD Jul 28, 2017 10:41
[2017-07-28] MEDS ORDERED: ONDANSETRON HCL 4 MG/2 ML VIAL IV PUSH ONE (12:00)
[2017-07-28] MEDS ORDERED: PROPOFOL 200 MG/20 ML AMP IV ONE (12:00)
[2017-07-28] MEDS ORDERED: LIDOCAINE HCL 1% PF 5 ML SYRINGE OTHER ONE (12:00)
[2017-07-28] MEDS ORDERED: PHENYLEPHRINE HCL 10 MG/ML VIAL IV ONE (12:00)
[2017-07-28] MEDS ORDERED: PHENYLEPH/NS 1000 MCG/10 ML SYR IV ONE (12:00)
[2017-07-28] MEDS ORDERED: ePHEDrine/NS 25 MG/5 ML SYRINGE IV ONE (12:00)
[2017-07-28] MEDS ORDERED: NEOMYCIN/POLYMYXIN 1 ML G.U. IRRIGANT ONE (15:08)
[2017-07-28] MEDS ORDERED: ACETAMINOPHEN 1000 MG/100 ML 0 ML IV ONE (15:10)
[2017-07-28] MEDS ORDERED: VANCOMYCIN HCL 1000 MG VIAL ONE (15:31)
--- NOTE | 2017-07-28 15:34 | HHI.PR ---
Subjective Remarks Patient seen in preop. States she is tired. Objective Vital Signs Date Time Temp Pulse Resp B/P (MAP) Pulse Ox O2 Delivery O2 Flow Rate FiO2 07/28/17 12:20 99.1 82 20 135/65 (88) 100 07/28/17 10:00 72 07/28/17 08:00 98.6 71 16 119/56 (77) 100 07/28/17 08:00 71 07/28/17 07:11 100 Nasal Cannula 2.00 07/28/17 06:00 69 07/28/17 04:00 73 07/28/17 04:00 98.5 73 18 107/54 (71) 95 07/28/17 02:00 74 07/28/17 00:00 72 07/28/17 00:00 98.9 72 20 97/55 (69) 94 07/27/17 22:00 75 07/27/17 21:01 95 Nasal Cannula 2.00 07/27/17 20:00 99.1 75 18 105/52 (69) 95 07/27/17 20:00 75 07/27/17 18:00 76 07/27/17 16:00 74 07/27/17 16:00 98.3 76 16 115/56 (75) 94 I/O 07/27/17 07/27/17 07/27/17 07/28/17 07/28/17 07/28/17 07:00 15:00 23:00 07:00 15:00 23:00 Intake Total 1603.4 ml 1015 ml 643 ml Output Total 0 ml 0 ml 0 ml Balance 1603.4 ml 1015 ml 643 ml Intake Oral 120 ml 140 ml 240 ml IV Total 1483.4 ml 875 ml 403 ml Output Urine Total 0 ml 0 ml 0 ml # Voids 0 # Bowel Movements 0 0 Result Diagram: 07/28/17 0419 07/28/17 0419 Procedures Patient is status post right foot and ankle incision and drainage DOS: July 25, 2017 Objective Remarks Dressing to RLE clean, dry and intact. TURK[place] LINE ATTENDANT to digits x5 WNL and under 3 secs. Medications and IVs Current Medications Medications (Trade) Dose Ordered Sig/Rita Route Start Time Stop Time Status Last Admin (NS Flush) 2 ml UNSCH PRN IV FLUSH 07/22/17 16:00 (NS Flush) 2 ml BID IV FLUSH 07/22/17 21:00 07/28/17 08:00 (Tylenol) 650 mg Q6H PRN PO 07/22/17 16:00 07/26/17 19:32 (Zofran Inj) 4 mg Q6H PRN IV PUSH 07/22/17 16:00 Miscellaneous Information 1 Q361D XX 07/22/17 16:00 (Chlorhexidine 2% Cloth) Taper DAILY@04 TOP 07/23/17 04:00 07/19/18 03:59 07/28/17 04:00 (Chlorhexidine 2% Cloth) 3 pack UNSCH PRN TOP 07/22/17 16:00 (Velma-Colace) 1 tab BID PO 07/22/17 21:00 07/28/17 08:01 (Milk Of Magnesia Liq) 30 ml Q12H PRN PO 07/22/17 16:00 (Senokot) 17.2 mg Q12H PRN PO 07/22/17 16:00 (Dulcolax Supp) 10 mg DAILY PRN RECTAL 07/22/17 16:00 (Lactulose Liq) 30 ml DAILY PRN PO 07/22/17 16:00 Sodium Chloride 1,000 ml @ 0 mls/hr Q0M PRN OTHER 07/22/17 16:21 (Heparin Inj) 8,000 units UNSCH PRN IV FLUSH 07/22/17 16:30 Sodium Chloride 1,000 ml @ 200 mls/hr Q5H PRN IV 07/22/17 16:21 Sodium Chloride 1,000 ml @ 0 mls/hr Q0M PRN OTHER 07/22/17 16:21 (Mannitol Inj) 12.5 gm UNSCH PRN IV 07/22/17 16:30 Albumin Human 100 ml @ 60 mls/hr UNSCH PRN IV 07/22/17 16:30 (NS Flush) 5 ml UNSCH PRN IV FLUSH 07/22/17 16:30 (Heparin Inj) UNSCH PRN .XX 07/22/17 16:30 (Gentamicin (Dialysis) Inj) 20 mg UNSCH PRN OTHER 07/22/17 16:30 (Zofran Inj) 4 mg UNSCH PRN IV PUSH 07/22/17 16:30 (Tylenol) 650 mg UNSCH PRN PO 07/22/17 16:30 07/25/17 11:36 (Benadryl) 25 mg UNSCH PRN PO 07/22/17 16:30 (Nitrostat Sl) 0.4 mg UNSCH PRN SL 07/22/17 16:30 (Catapres) 0.1 mg UNSCH PRN PO 07/22/17 16:30 (Epogen Inj) 10,000 units UNSCH PRN IV PUSH 07/22/17 16:30 07/26/17 09:39 (Gelfoam 12 Mm/7 Mm Top) 1 foam UNSCH PRN TOP 07/22/17 16:30 07/26/17 09:39 (Atarax) 25 mg HS PO 07/22/17 21:00 07/27/17 22:02 (Synthroid) 75 mcg DAILY@0600 PO 07/23/17 06:00 07/28/17 04:46 (Remeron) 15 mg HS PO 07/22/17 21:00 07/27/17 22:02 (Nephrocaps) 1 cap DAILY PO 07/23/17 09:00 07/28/17 08:01 (Levemir Inj) 10 units HS SQ 07/22/17 21:00 Future Hold 07/22/17 21:00 (D50w (Vial) Inj) 25 ml UNSCH PRN IV 07/22/17 17:15 07/25/17 08:04 (Glucagon Inj) 1 mg UNSCH PRN IM/SQ 07/22/17 17:15 Dextrose/Sodium Chloride 1,000 ml @ 65 mls/hr [id number] IV 07/23/17 15:00 07/27/17 22:02 (Santyl Oint) 1 applic DAILY TOPICAL 07/25/17 09:00 07/28/17 08:01 Pharmacy Profile Note 0 ml @ 0 mls/hr UNSCH OTHER 07/24/17 16:00 Piperacillin Sod/ Tazobactam Sod 50 ml @ 100 mls/hr Q8H IV 07/24/17 18:00 07/28/17 10:29 (Narcan Inj) 0.4 mg UNSCH PRN IV PUSH 07/25/17 22:30 Vancomycin HCl 1000 mg/Sodium Chloride 250 ml @ 250 mls/hr WITH DIALYSIS IV 07/26/17 11:00 (NovoLOG SUPPLEMENTAL SCALE) 1 ACHS SQ 07/27/17 12:00 07/28/17 08:10 (Protonix) 40 mg DAILY PO 07/28/17 09:00 07/28/17 08:01 Assessment and Plan Assessment and Plan 72-year-old female with right foot and ankle abscess status post incision and drainage to surgery 07/25 Patient examined and treated with all questions answered To OR for right foot and ankle repeat incision and drainage Consent signed Patient has been NPO RLE Pooja Dupont DPM Jul 28, 2017 15:34
[2017-07-28] MEDS ORDERED: BUPIVACAINE HCL PF 0.5% 30 ML VIAL ONE (15:41)
[2017-07-28] MEDS ORDERED: LIDOCAINE HCL 1% 50 ML VIAL ONE (15:41)
[2017-07-28] MEDS ORDERED: Post-op Orders (for Pharmacy) XX ONE (17:00)
--- NOTE | 2017-07-28 17:05 | HHI.PR ---
Immediate Post Op Note Procedure Date: Jul 28, 2017 Pre Op Diagnosis: (1) Ankle abscess (2) Foot abscess, right Right foot and ankle abscess Post Op Diagnosis: Surgeon: Pooja Galvez Bow Maker Production(s): None Procedure: Right foot and Ankle Debridement and Irrigation with wound vac placement Findings: None Additional Information: None Complications: None Specimen(s) removed: None Estimated blood loss: 10cc Anesthesia: General Drains: None IVF Patient to: PACU Patient Condition: Good Pooja Galvez DPM Jul 28, 2017 17:05
[2017-07-28] MEDS ORDERED: DO NOT ADM ANY ANTICOAGULANT DRUGS PRN (17:30)
--- NOTE | 2017-07-28 17:42 | MR ---
cc: ALAN DORAN DPM DATE: 07/28/2017. SURGEON: Alan Doran DPM. TAPROOM ATTENDANT: None. PREOPERATIVE DIAGNOSIS: Right foot and ankle abscess. POSTOPERATIVE DIAGNOSIS: Right foot and ankle abscess. ANESTHESIA: General with a 1:1 mix of 0.5% Marcaine plain and 1% lidocaine plain infiltrated about the right ankle. HEMOSTASIS: None. ESTIMATED BLOOD LOSS: 10 cc. MATERIALS: Vancomycin powder and a wound VAC, 2-0 Prolene. INJECTABLES: None. COMPLICATIONS: None. INDICATIONS FOR THE PROCEDURE: The patient is a 72-year-old female who underwent emergent incision and drainage to the right foot and ankle following MRI positive for extensive fluid noticed to flexor tendon. The patient's white count from incision and drainage has trended down from 35 to 16.2. Vascular evaluated the patient to evaluate viability of limb. Vascular and foot and ankle surgery in agreement that further debridement and irrigation with local wound care could potentially result in limb salvage. She will undergo a CTA to evaluate blood flow and to whether or not vascular intervention is necessary. She is in agreement with a debridement and irrigation and wound VAC placement. The risks, benefits, alternatives, and complications including the possibility of proximal amputation. DESCRIPTION OF THE PROCEDURE IN DETAIL: The patient was brought back to the operating room and placed on the operating room table in the supine position. General anesthesia was induced and a 1:1 mixture of 0.5% Marcaine plain and 1% lidocaine plain was infiltrated about the right ankle in the ankle block fashion. At this time, attention was directed to medial and lateral as well as plantar foot incisions. All Prolene was removed from the incision. The wounds were extensively irrigated. Purulent drainage was still noted to posterolateral as well as posterior medial ankle incisions. Debridement was performed of all necrotic nonviable tissue. Once again, the patient was copiously irrigated with six liters of normal saline in total. Again, ankle capillary fill was noted to be intact with no joint involvement. Following irrigation, wound VAC was placed to medial and lateral ankle incisions with white foam and black foam. Plantar foot was packed with Vancomycin powder and the wound VAC was placed as well. The wound VAC was noted to be functioning 125 mmHg when the patient was sent from the room. The patient tolerated the procedure and the anesthesia well. She was transferred to the post-anesthesia care unit with all vital signs stable and neurovascular status intact to the right lower extremity. DIANE Martinez/PATRICIA /5:12 PM /5:25 PM [facility]
[2017-07-28] MEDS: DEXT 5%-NACL 0.9% 1000 ML INJ 1,000 ML IV SCH (18:12)
[2017-07-28] MEDS: hydrOXYzine HCL 25 MG TAB PO SCH (22:33)
[2017-07-28] MEDS: MIRTAZAPINE 15 MG TAB PO SCH (22:33)
[2017-07-29] VITALS (7 sets, daily range): BP systolic 114–173; BP diastolic 54–65; PULSE 79–89; RESP 18–20; TEMP 98.4–99.9; O2SAT 95–100
[2017-07-29] MEDS: PIPERACIL-TAZO 2.25 GM PREMIX 50 ML IV SCH ×3 (02:23→18:10)
[2017-07-29] MEDS: CHLORHEXIDINE GLUCONATE 2 % 1 PACK (2 CLOTHS) TOP SCH (04:00)
[2017-07-29] MEDS: DEXT 5%-NACL 0.9% 1000 ML INJ 1,000 ML IV SCH (04:15)
[2017-07-29] MEDS: LEVOTHYROXINE SODIUM 75 MCG TAB PO SCH (06:00)
[2017-07-29] MEDS: INSULIN ASPART SUPPLEMENTAL SCALE SQ SCH ×4 (08:00→20:39)
[2017-07-29 08:55] LABS: BASOPHIL % 0.3 % (0.0-2.0); EOSINOPHIL # 0.2 TH/MM3 (0-0.4); EOSINOPHIL % 1.4 % (0.0-4.0); HEMO FLAGS DIFF FINAL; LYMPH % 6.4 % (9.0-44.0); LYMPHOCYTE # 0.9 TH/MM3 (1.0-4.8); MEAN CELL VOLUME 82.7 FL (80.0-100.0); MEAN CORPUSCULAR HEMOGLOBIN 27.6 PG (27.0-34.0); MEAN CORPUSCULAR HGB CONC 33.3 % (32.0-36.0); MONO % 10.4 % (0.0-8.0); NEUT % 81.5 % (16.0-70.0); PLATELET COUNT 438 TH/MM3 (150-450); RED BLOOD COUNT 2.66 MIL/MM3 (4.00-5.30); RED CELL DISTRIBUTION WIDTH 18.6 % (11.6-17.2); WHITE BLOOD COUNT 14.7 TH/MM3 (4.0-11.0)
[2017-07-29] MEDS: SODIUM CHLORIDE 0.9% FLUSH 10 ML FLUSH IV FLUSH SCH ×2 (08:55→20:38)
[2017-07-29] MEDS: VITAMIN B CMPLX/VITC/FOLIC AC CAP PO SCH (08:57)
[2017-07-29] MEDS: DOCUSATE SODIUM 50 MG/SENNA 8.6 MG TAB PO SCH ×2 (08:57→20:38)
[2017-07-29] MEDS: PANTOPRAZOLE SOD 40 MG DELAYED RELEASE TAB PO SCH (08:57)
[2017-07-29] MEDS: COLLAGENASE OINT 30 GM TUBE TOPICAL SCH (09:00)
[2017-07-29 09:23] LABS: BICARBONATE 23.9 MEQ/L (21.0-32.0); MAGNESIUM 1.9 MG/DL (1.5-2.5); POTASSIUM 3.5 MEQ/L (3.5-5.1)
--- NOTE | 2017-07-29 09:52 | HHI.IDPN ---
Subjective Subjective Remarks Patient is a 72-year-old female, presented to the hospital complaining of one weeke history of nausea, vomiting and black stool. She has ESRD and gets HD MWF. She felt sick and missed her HD on the day of admission. She denies any abdominal pain. On presentation, she had severe anemia. GI evaluated her and she had EGD, with findings of hernia. Colonoscopy is still pending. She was also found to have an ulcer of her R big toe. Podiatry saw patient and did surgery 07/25. Infection found on big toe and and also in the R ankle. Cultures are growing Citrobacter and second GNR. patient has been running fevers since 07/24. her WBC has remains elevated and above 30K. Another OR was planned for tomorrow. Patient is also being evaluated by vascular surgery. She is getting CT of the rest of her RLE to evaluate extent of infection. Temps are better. Her WBC remains high at 35K. She got HD today. Hemodynamics are ok. I asked patient how long she has had the R foot wound and she said she does not know. Infectious Disease consultation has been requested to evaluate patient with foot infection and C/S with GNR. She is on Zosyn and Vancomycin. Notes reviewed Temps better Had another I and D R foot 07/28 - C/S pending Has wound vac on R foot First C/S Citrobacter and Alcaligenes No pain Antibiotics Current Medications Zosyn Vancomycin Medications (Trade) Dose Ordered Sig/Rita Route Start Time Stop Time Status Last Admin (NS Flush) 2 ml UNSCH PRN IV FLUSH 07/22/17 16:00 (NS Flush) 2 ml BID IV FLUSH 07/22/17 21:00 07/28/17 08:00 (Tylenol) 650 mg Q6H PRN PO 07/22/17 16:00 07/26/17 19:32 (Zofran Inj) 4 mg Q6H PRN IV PUSH 07/22/17 16:00 Miscellaneous Information 1 Q361D XX 07/22/17 16:00 (Chlorhexidine 2% Cloth) Taper DAILY@04 TOP 07/23/17 04:00 07/19/18 03:59 07/29/17 04:00 (Chlorhexidine 2% Cloth) 3 pack UNSCH PRN TOP 07/22/17 16:00 (Velma-Colace) 1 tab BID PO 07/22/17 21:00 07/29/17 08:57 (Milk Of Magnesia Liq) 30 ml Q12H PRN PO 07/22/17 16:00 (Senokot) 17.2 mg Q12H PRN PO 07/22/17 16:00 (Dulcolax Supp) 10 mg DAILY PRN RECTAL 07/22/17 16:00 (Lactulose Liq) 30 ml DAILY PRN PO 07/22/17 16:00 Sodium Chloride 1,000 ml @ 0 mls/hr Q0M PRN OTHER 07/22/17 16:21 (Heparin Inj) 8,000 units UNSCH PRN IV FLUSH 07/22/17 16:30 Sodium Chloride 1,000 ml @ 200 mls/hr Q5H PRN IV 07/22/17 16:21 Sodium Chloride 1,000 ml @ 0 mls/hr Q0M PRN OTHER 07/22/17 16:21 (Mannitol Inj) 12.5 gm UNSCH PRN IV 07/22/17 16:30 Albumin Human 100 ml @ 60 mls/hr UNSCH PRN IV 07/22/17 16:30 (NS Flush) 5 ml UNSCH PRN IV FLUSH 07/22/17 16:30 (Heparin Inj) UNSCH PRN .XX 07/22/17 16:30 (Gentamicin (Dialysis) Inj) 20 mg UNSCH PRN OTHER 07/22/17 16:30 (Zofran Inj) 4 mg UNSCH PRN IV PUSH 07/22/17 16:30 (Tylenol) 650 mg UNSCH PRN PO 07/22/17 16:30 07/25/17 11:36 (Benadryl) 25 mg UNSCH PRN PO 07/22/17 16:30 (Nitrostat Sl) 0.4 mg UNSCH PRN SL 07/22/17 16:30 (Catapres) 0.1 mg UNSCH PRN PO 07/22/17 16:30 (Epogen Inj) 10,000 units UNSCH PRN IV PUSH 07/22/17 16:30 07/26/17 09:39 (Gelfoam 12 Mm/7 Mm Top) 1 foam UNSCH PRN TOP 07/22/17 16:30 07/26/17 09:39 (Atarax) 25 mg HS PO 07/22/17 21:00 07/28/17 22:33 (Synthroid) 75 mcg DAILY@0600 PO 07/23/17 06:00 07/29/17 06:00 (Remeron) 15 mg HS PO 07/22/17 21:00 07/28/17 22:33 (Nephrocaps) 1 cap DAILY PO 07/23/17 09:00 07/29/17 08:57 (Levemir Inj) 10 units HS SQ 07/22/17 21:00 Future Hold 07/22/17 21:00 (D50w (Vial) Inj) 25 ml UNSCH PRN IV 07/22/17 17:15 07/25/17 08:04 (Glucagon Inj) 1 mg UNSCH PRN IM/SQ 07/22/17 17:15 Dextrose/Sodium Chloride 1,000 ml @ 65 mls/hr [id number] IV 07/23/17 15:00 07/28/17 18:12 (Santyl Oint) 1 applic DAILY TOPICAL 07/25/17 09:00 07/28/17 08:01 Pharmacy Profile Note 0 ml @ 0 mls/hr UNSCH OTHER 07/24/17 16:00 Piperacillin Sod/ Tazobactam Sod 50 ml @ 100 mls/hr Q8H IV 07/24/17 18:00 07/29/17 08:59 (Narcan Inj) 0.4 mg UNSCH PRN IV PUSH 07/25/17 22:30 Vancomycin HCl 1000 mg/Sodium Chloride 250 ml @ 250 mls/hr WITH DIALYSIS IV 07/26/17 11:00 (NovoLOG SUPPLEMENTAL SCALE) 1 ACHS SQ 07/27/17 12:00 07/29/17 08:00 (Protonix) 40 mg DAILY PO 07/28/17 09:00 07/29/17 08:57 Miscellaneous Information ALL NURSING DEPARTME... UNSCH PRN .XX 07/28/17 17:30 07/29/17 17:29 Lines PIV Past Medical History Diabetes Hypertension Anemia GERD Hypothyroidism Secondary hyperparathyroidism Osteoarthritis Past Surgical History History of toe amputation AV fistula left forearm Partial hysterectomy 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 Objective . Vital Signs Date Time Temp Pulse Resp B/P (MAP) Pulse Ox O2 Delivery O2 Flow Rate FiO2 07/29/17 08:06 98.6 81 19 173/56 (95) 98 07/29/17 08:00 Nasal Cannula 2.00 07/29/17 03:45 81 07/29/17 00:00 Nasal Cannula 2.00 07/29/17 00:00 98.4 84 20 114/54 (74) 98 07/28/17 23:42 81 07/28/17 20:00 97.0 80 21 110/53 (72) 95 07/28/17 20:00 Nasal Cannula 2.00 07/28/17 19:44 84 07/28/17 17:27 87 19 128/61 (83) 92 Nasal Cannula 4 07/28/17 17:15 90 19 133/59 (83) 91 Nasal Cannula 4 07/28/17 17:04 98.2 89 19 131/62 (85) 91 Nasal Cannula 4 07/28/17 12:20 99.1 82 20 135/65 (88) 100 07/28/17 10:00 72 . Laboratory Tests Test 07/28/17 04:19 07/29/17 07:20 White Blood Count 16.2 TH/MM3 14.7 TH/MM3 Red Blood Count 2.68 MIL/MM3 2.66 MIL/MM3 Hemoglobin 7.4 GM/DL 7.3 GM/DL Hematocrit 22.1 % 22.0 % Mean Corpuscular Volume 82.5 FL 82.7 FL Mean Corpuscular Hemoglobin 27.4 PG 27.6 PG Mean Corpuscular Hemoglobin Concent 33.2 % 33.3 % Red Cell Distribution Width 18.8 % 18.6 % Platelet Count 413 TH/MM3 438 TH/MM3 Mean Platelet Volume 10.5 FL 10.2 FL Neutrophils (%) (Auto) 84.5 % 81.5 % Lymphocytes (%) (Auto) 5.2 % 6.4 % Monocytes (%) (Auto) 8.5 % 10.4 % Eosinophils (%) (Auto) 1.4 % 1.4 % Basophils (%) (Auto) 0.4 % 0.3 % Neutrophils # (Auto) 13.7 TH/MM3 12.0 TH/MM3 Lymphocytes # (Auto) 0.8 TH/MM3 0.9 TH/MM3 Monocytes # (Auto) 1.4 TH/MM3 1.5 TH/MM3 Eosinophils # (Auto) 0.2 TH/MM3 0.2 TH/MM3 Basophils # (Auto) 0.1 TH/MM3 0.0 TH/MM3 CBC Comment DIFF FINAL DIFF FINAL Differential Comment Laboratory Tests Test 07/28/17 04:19 07/29/17 07:20 Blood Urea Nitrogen 40 MG/DL 46 MG/DL Creatinine 5.97 MG/DL 7.04 MG/DL Random Glucose 203 MG/DL 127 MG/DL Calcium Level 8.2 MG/DL 7.9 MG/DL Phosphorus Level 4.2 MG/DL 4.3 MG/DL Magnesium Level 1.8 MG/DL 1.9 MG/DL Sodium Level 141 MEQ/L 141 MEQ/L Potassium Level 3.6 MEQ/L 3.5 MEQ/L Chloride Level 106 MEQ/L 106 MEQ/L Carbon Dioxide Level 24.5 MEQ/L 23.9 MEQ/L Anion Gap 11 MEQ/L 11 MEQ/L Estimat Glomerular Filtration Rate 8 ML/MIN 7 ML/MIN Imaging Last Impressions Tibia/Fibula X-Ray 07/26/17 0628 Signed Impressions: Service Date/Time: Wednesday, July 26, 2017 06:46 - CONCLUSION: Distal leg soft tissue swelling without an acute bony abnormality. Jacob Hall MD Lower Extremity CT 07/26/17 0000 Signed Impressions: Service Date/Time: Wednesday, July 26, 2017 13:29 - CONCLUSION: 1. Focal emphysema with spontaneously dense material is seen in the soft tissues just posterior to the ankle joint. 2. Focal emphysema with spontaneously dense material is seen in the soft tissues along the plantar surface of the foot in a linear fashion. The findings may be postsurgical. This needs to be correlated with any recent surgery.. Nain Castillo MD Foot X-Ray 07/26/17 0000 Signed Impressions: Service Date/Time: Wednesday, July 26, 2017 06:50 - CONCLUSION: Soft tissue changes without an acute bony abnormality. Jacob Hall MD Ankle X-Ray 07/26/17 0000 Signed Impressions: Service Date/Time: Wednesday, July 26, 2017 06:44 - CONCLUSION: Nonspecific soft tissue swelling of the right ankle region. No acute bony abnormality. Jacob Hall MD Foot MRI 07/25/17 0000 Signed Impressions: Service Date/Time: July 12:05 - CONCLUSION: 1. Tenosynovitis of the flexor hallucis longus tendon with fluid extending to the plantar surface. 2. Mild bone marrow edema involving the proximal phalanx of the great toe which may be reactive. 3. No discrete evidence of post PA line is. Eder Nieto MD Chest X-Ray 07/23/17 0000 Signed Impressions: Service Date/Time: Sunday, July 23, 2017 03:30 - CONCLUSION: Stable appearance of cardiomegaly and central vascular engorgement. Praneeth Barrientos MD Physical Exam GENERAL: awake and alert, not in respiratory distress. SKIN: Warm and dry. No generalized rash HEAD: Atraumatic. Normocephalic. No temporal wasting, or tenderness. EYES: [place] conjunctiva. No petechia or hemorrhage. Pupils equal, round and reactive to light. Extraocular movements full and intact. No scleral icterus. No injection or drainage. EARS, NOSE AND THROAT: Nose without bleeding or purulent nasal discharge. No sinus tenderness. Mucous membranes pink and moist. No oral lesions noted. NECK: Trachea midline. Supple and not tender, no meningeal signs CARDIOVASCULAR: Regular rate and rhythm. No murmurs, rubs or gallops heard RESPIRATORY: Clear to auscultation. Breath sounds equal bilaterally. No rales , wheezing or rhonchi ABDOMEN: Soft, non-tender, nondistended. Bowel sounds present and normoactive. No guarding. No rebound. No organomegaly. EXTREMITIES: No clubbing, cyanos. RLE is larger compared to the LLE. Has dry and intact dressing on the R foot, has wound vac in place. RLE with less swelling and less redness. No calf tenderness. Well perfused and warm. AVF ok NEUROLOGICAL: Awake and alert. Cranial nerves grossly intact. Motor grossly within normal limits. PSYCHIATRIC: Normal affect, calm and cooperative. LINE: No evidence of infection Assessment & Plan Remarks IMPRESSION Sepsis due to infection RLE - better - S/P I and D, C/S Citrobacter and Alcaligenes - repeat C/S pending Severe anemia, GIB - EGD ok - colonoscopy with AVM seen, no active bleeding seen during procedure Leukocytosis, due to infection, improving ESRD on HD MWF RECOMMENDATION Vascular surgery also evaluating patient Continue Zosyn Continue Vanco Follow C/S and adjust Abx, deescalate once second C/S available Follow temps and CBC Monitor progress Klaudia Harrington MD Jul 29, 2017 09:52
[2017-07-29] MEDS ORDERED: hydrALAZINE HCL 20 MG/ML VIAL IV PUSH PRN (10:30)
[2017-07-29] MEDS ORDERED: ALBUTEROL SULFATE 90 MCG/ACT HFA 8 GM INHALER INH PRN (10:30)
--- NOTE | 2017-07-29 11:28 | HHI.NPPN ---
Subjective General Problems: Anemia Renal Failure: Chronic, End Stage Renal Disease Interval History Reporting fatigue. Wound vac in place right lower extremity. (Teresa Parekh) Review of Systems General Constitutional: Fatigue (Teresa Parekh) Objective Data Data Vital Signs Date Time Temp Pulse Resp B/P (MAP) Pulse Ox O2 Delivery O2 Flow Rate FiO2 07/29/17 11:02 79 07/29/17 08:06 98.6 81 19 173/56 (95) 98 07/29/17 08:00 Nasal Cannula 2.00 07/29/17 03:45 81 07/29/17 00:00 Nasal Cannula 2.00 07/29/17 00:00 98.4 84 20 114/54 (74) 98 07/28/17 23:42 81 07/28/17 20:00 97.0 80 21 110/53 (72) 95 07/28/17 20:00 Nasal Cannula 2.00 07/28/17 19:44 84 07/28/17 17:27 87 19 128/61 (83) 92 Nasal Cannula 4 07/28/17 17:15 90 19 133/59 (83) 91 Nasal Cannula 4 07/28/17 17:04 98.2 89 19 131/62 (85) 91 Nasal Cannula 4 07/28/17 12:20 99.1 82 20 135/65 (88) 100 (Teresa Parekh) -: 07/29/17 0720 07/29/17 0720 Tubes & Lines Comment wound vac (Teresa Parekh) Physical Exam General Appearance: Well Developed, No Acute Distress, Comfortable, Malnourished (Teresa Parekh) Neck Neck Exam: Neck Supple (Teresa Parekh) Pulmonary Resp Exam: Clear Bilaterally, Breath Sounds Equal (Teresa Parekh) Cardiology CV Exam: Regular, Normal Sinus Rhythm (Teresa Parekh) Gastrointestinal/Abdomen GI Exam: Soft, Non-Tender, Bowel Sounds Present, Non-Distended (Teresa Parekh) Musculoskeletal MS Exam: Normal Tone (Teresa Parekh) Integumentary Skin Exam: Warm, Dry Skin Remarks right lower extremity dressing in place wound vac (Teresa Parekh) Extremeties Extremities Exam: Trace Edema (Teresa Parekh) Neurologic Neuro Exam: Alert, Awake (Teresa Parekh) Psychiatric Psych Exam: Appropriate Responses (Teresa Parekh) Assessment/Plan Discussed Condition With: Patient Assessment Summary: Anemia of CKD, Hypertension, End Stage Renal Disease Problem List: (1) ESRD (end stage renal disease) on dialysis ICD Codes: N18.6 - End stage renal failure on dialysis; Z99.2 - Dependence on renal dialysis Status: Chronic Plan: Continue HD MWF, she is due today Avoid IVF, gadolinium High protein diet ordered Intermittently obtain renal panel Check phosphorus level, start binders if needed (2) GI bleed ICD Codes: K92.2 - Gastrointestinal hemorrhage, unspecified Status: Acute Plan: GI following, may need capsule endoscopy as outpatient She is persistently anemic, epogen with HD (3) Anemia ICD Codes: D64.9 - Anemia, unspecified Status: Acute Plan: Transfuse if needed On Epogen with HD (4) Diabetes mellitus ICD Codes: E11.9 - Type 2 diabetes mellitus without complications Status: Chronic Plan: Insulin as needed Continue to monitor glucose (5) Ankle abscess ICD Codes: L02.419 - Cutaneous abscess of limb, unspecified Plan: ID following S/P I&D yesterday On vancomycin with HD and Zosyn May need angiogram (Teresa Parekh) Plan patient was seen and examined. Agree with above assessment and plan. s/p colonoscopy and EGD. Findings were noted. GI following. ID managing antibiotics : currently on Vancomycin and Zosyn. S/p debridement of ankle abscess. (Dao Greene MD) Problem Qualifiers (1) Diabetes mellitus: Teresa Parekh Jul 29, 2017 11:28 Dao Greene MD Jul 29, 2017 20:41
--- NOTE | 2017-07-29 13:13 | HHI.PR ---
Subjective Remarks Consulted by critical care reason for transfer care medical management per chart reviewed. Patient seen in CT for CTA. Denies foot pain. He has a right foot wound VAC. Discussed with nursing staff Objective Vitals Vital Signs Date Time Temp Pulse Resp B/P (MAP) Pulse Ox O2 Delivery O2 Flow Rate FiO2 07/29/17 12:06 99.2 85 20 130/60 (83) 100 07/29/17 11:02 79 07/29/17 08:06 98.6 81 19 173/56 (95) 98 07/29/17 08:00 Nasal Cannula 2.00 07/29/17 03:45 81 07/29/17 00:00 Nasal Cannula 2.00 07/29/17 00:00 98.4 84 20 114/54 (74) 98 07/28/17 23:42 81 07/28/17 20:00 97.0 80 21 110/53 (72) 95 07/28/17 20:00 Nasal Cannula 2.00 07/28/17 19:44 84 07/28/17 17:27 87 19 128/61 (83) 92 Nasal Cannula 4 07/28/17 17:15 90 19 133/59 (83) 91 Nasal Cannula 4 07/28/17 17:04 98.2 89 19 131/62 (85) 91 Nasal Cannula 4 I/O 07/28/17 07/28/17 07/28/17 07/29/17 07/29/17 07/29/17 07:00 15:00 23:00 07:00 15:00 23:00 Intake Total 643 ml 897 ml 1467 ml 50 ml Output Total 0 ml 10 ml 0 ml Balance 643 ml 887 ml 1467 ml 50 ml Intake Oral 240 ml 720 ml IV Total 403 ml 697 ml 747 ml 50 ml Other 200 ml Output Urine Total 0 ml 0 ml Estimated Blood Loss 10 ml # Voids 0 # Bowel Movements 0 0 0 Result Diagram: 07/29/17 0720 07/29/17 0720 Imaging Last Impressions Tibia/Fibula X-Ray 07/26/17 0628 Signed Impressions: Service Date/Time: Wednesday, July 26, 2017 06:46 - CONCLUSION: Distal leg soft tissue swelling without an acute bony abnormality. Jacob Hall MD Lower Extremity CT 07/26/17 0000 Signed Impressions: Service Date/Time: Wednesday, July 26, 2017 13:29 - CONCLUSION: 1. Focal emphysema with spontaneously dense material is seen in the soft tissues just posterior to the ankle joint. 2. Focal emphysema with spontaneously dense material is seen in the soft tissues along the plantar surface of the foot in a linear fashion. The findings may be postsurgical. This needs to be correlated with any recent surgery.. Nain Castillo MD Foot X-Ray 07/26/17 0000 Signed Impressions: Service Date/Time: Wednesday, July 26, 2017 06:50 - CONCLUSION: Soft tissue changes without an acute bony abnormality. Jacob Hall MD Ankle X-Ray 07/26/17 0000 Signed Impressions: Service Date/Time: Wednesday, July 26, 2017 06:44 - CONCLUSION: Nonspecific soft tissue swelling of the right ankle region. No acute bony abnormality. Jacob Hall MD Foot MRI 07/25/17 0000 Signed Impressions: Service Date/Time: July 12:05 - CONCLUSION: 1. Tenosynovitis of the flexor hallucis longus tendon with fluid extending to the plantar surface. 2. Mild bone marrow edema involving the proximal phalanx of the great toe which may be reactive. 3. No discrete evidence of post IA line is. Eder Nieto MD Chest X-Ray 07/23/17 0000 Signed Impressions: Service Date/Time: Sunday, July 23, 2017 03:30 - CONCLUSION: Stable appearance of cardiomegaly and central vascular engorgement. Praneeth Barrientos MD Objective Remarks GENERAL: 72 AA Female well-developed and well-nourished in no distress SKIN: Warm and dry. CARDIOVASCULAR: Regular rate and rhythm. S1, S2. No S4. Without murmur RESPIRATORY: Clear to auscultation. Breath sounds equal bilaterally. GASTROINTESTINAL: Abdomen soft, non-tender, nondistended. MUSCULOSKELETAL: Right foot with VAC dressing NEUROLOGICAL: Awake and alert. No obvious cranial nerve deficits. Motor grossly within normal limits. 5/5 muscle strength in the arms and legs. Normal speech. Procedures Foot abscess irrigation and debridement, EGD and colonoscopy A/P Problem List: (1) Foot abscess, right ICD Code: L02.611 - Cutaneous abscess of right foot Assessment and Plan Right foot and ankle abscess Status post irrigation debridement by podiatry. Continue wound care, wound VAC, IV Zosyn and vancomycin wound culture grew Citrobacter and Alcaligenes follow-up repeat culture. Vascular surgery has been consulted to evaluate for PAD follow-up CTA Depression. Stable continue mirtazapine 15 mg at night and hydroxyzine 25 mg at night for depression/anxiety Hypertension. Currently off antihypertensives. Hydralazine as needed. Continue to monitor GI bleed. EGD 07/23 with Schatzki ring mild to moderate and moderate hiatal hernia. No active bleeding. 07/26 - colonoscopy -follow-up polyp snared had ICV. Diverticulosis. AVM's in cecum and ascending colon. Continue PPI and follow up pathology. Workup so endoscopy Acute blood loss anemia and of chronic kidney disease. Transfused 4 units PRBCs. On Epogen 10,000 units with hemodialysis. Repeat CBC in AM. . Diabetes mellitus. Holding insulin glargine 10 units at night. Currently on Aspart sliding scale insulin with Accu-Cheks every before meals and at bedtime Hypothyroidism. Continue levothyroxine 75 mics grams daily for hypothyroidism End-stage renal disease on hemodialysis Saturday/Saturday/Saturday with Dr. Buchanan DVT - SCD/holding pharmacological prophylaxis in light of GI bleeding Discharge Planning Not ready for discharge may need additional right foot surgery by podiatry Ronald Singer MD Jul 29, 2017 13:13
[2017-07-29] MEDS ORDERED: IOHEXOL 350 MG/ML 10 ML VIAL (for RAD DIAG) IVCONTRAST ONE (13:16)
[2017-07-29] MEDS: EPOETIN ALFA 10,000 UNITS/ML VIAL IV PUSH PRN (16:37)
--- NOTE | 2017-07-29 17:27 | RADRPT ---
EXAM DATE/TIME: 07/29/2017 12:52 [facility] COMPARISON: No previous studies available for comparison. INDICATIONS : Peripheral vascular disease. IV CONTRAST: 75 cc Omnipaque 350 (iohexol) IV RADIATION DOSE: 10.93 CTDIvol (mGy) MEDICAL HISTORY : Diabetes mellitus type 2. Renal failure. SURGICAL HISTORY : Hysterectomy. ENCOUNTER: Initial ACUITY: 1 day PAIN SCALE: 0/10 LOCATION: lower legs TECHNIQUE: Volumetric scanning was performed using a multi-row detector CT scanner. The data was post processed with a variety of visualization algorithms including full volume maximum intensity projection, multi -planar sliding thin slab reformation, curved planar reformation, and surface rendering techniques. Using automated exposure control and adjustment of the mA and/or kV according to patient size, radiat ion dose was kept as low as reasonably achievable to obtain optimal diagnostic quality images. DICO M format image data is available electronically for review and comparison. FINDINGS: AORTA: [id number] infrarenal aortic calcifications without significant flow-limiting stenosis or aneur ysm. VISCERAL ARTERIES: Sharply angulated celiac origin with likely mild to moderate focal stenosis proximally. SMA is patent . GERARDO is patent. Single right renal artery is patent. Single left renal artery with bulky calcified p laque proximally resulting in at least moderate stenosis. RIGHT LEG: INFLOW: Mild stenosis of the common iliac artery origin secondary to calcified plaque. Diffusely diseased but patent internal iliac artery. External iliac artery is patent. Common femoral artery is patent. OUTFLOW: Diffusely calcified but patent the profunda. Diffusely calcified SFA with tandem mild stenoses in the proximal to mid thigh. There also tandem ufky-on-outfptbp stenoses in the distal thigh. Popliteal ar sruthi is diffusely calcified. There is focal severe stenosis versus occlusion of the popliteal artery at the level of the knee. RUNOFF: Runoff vessels are small in caliber and heavily calcified limiting evaluation. Posterior tibial arter y is very dilated in caliber and likely occluded in the midcalf. Anterior tibial artery is heavily ca lcified near the ankle precluding evaluation. LEFT LEG: INFLOW: Moderate stenosis of the cardiac artery origin secondary to predominantly noncalcified plaque. Diffus manolo diseased but patent in cardiac artery. External iliac artery is patent. Common femoral artery is patent. OUTFLOW: Profunda is heavily calcified but patent. SFA is diffusely calcified with [id number]-jl-yvbuyrti stenosis i n the distal thigh. Popliteal artery is diffusely calcified with tandem moderate stenoses at the leve l of the knee. RUNOFF: Runoff vessels are small in caliber and heavily calcified limiting evaluation. Lesser tibial artery a ppears to be occluded in the mid calf. Anterior tibial artery extends to the dorsal arch. GENERAL FINDINGS: Visualized lung bases demonstrate small bilateral pleural effusions and airspace consolidation at the lung bases. Evaluation of the abdomen is limited due to arterial phase technique. Liver, adrenal gla nds, and pancreas are grossly unremarkable. Gallbladder is moderately distended with limited evaluati on due to the ascites. There are multiple low density lesions in the spleen which may be flow related . Kidneys are atrophic. There is a moderate to large amount of ascites. Bowel appears grossly unremarkable. Multiple uterine calcifications consistent with uterine leiomyoma s. Bladder is decompressed. There is diffuse soft tissue anasarca in the lower extremities with a sof t tissue defect in the plantar aspect of the right foot. CONCLUSION: 1. No significant aortic stenosis. 2. No significant inflow stenosis on the right. There is moderate stenosis of the left common iliac a rtery origin. 3. SFA are heavily calcified bilaterally with tandem stenoses in the size, above. 4. Focal severe stenosis of the right popliteal artery at the level of the knee. 5. Heavily calcified small caliber limited runoff vessels. Please see CT angiography details above. 6. Small bilateral pleural effusions with airspace disease at the lung bases, likely atelectasis. 7. Moderate ascites with soft tissue anasarca. 8. Multiple low density lesions in the spleen may be flow related. Further evaluation may be performe d with ultrasound as indicated. 9. Ulcer along the plantar aspect of the right foot. Flaco Santoro MD on July 29, 2017 at 17:00 Board Certified Radiologist. This report was verified electronically.
--- NOTE | 2017-07-29 20:20 | PD.POD ---
Subjective Podiatric Problems POD #1 s/p I&D Right ankle/foot abscess 07/28/17 Dr Galvez Past Med/Surg/Social History Past Medical History Endocrine: REPORTS HX OF: Diabetes mellitus Cardiovascular: REPORTS HX OF: Hypertension Gastrointestinal: REPORTS HX OF: Liver disease Genitourinary: REPORTS HX OF: Kidney failure Past Surgical History Gastrointestinal: DENIES HX OF: Colectomy, total Gynecologic: DENIES HX OF: Hysterectomy Musculoskeletal: REPORTS HX OF: Other musculoskeletal srg (amputation of the left hallux) Breast: DENIES HX OF: Mastectomy, bilateral, Mastectomy, left, Mastectomy, right Social History Smoking Status: Current Every Day Smoker Objective Vital Signs Vital Signs Date Time Temp Pulse Resp B/P (MAP) Pulse Ox O2 Delivery O2 Flow Rate FiO2 07/29/17 13:14 81 07/29/17 12:06 99.2 85 20 130/60 (83) 100 07/29/17 11:02 79 07/29/17 08:06 98.6 81 19 173/56 (95) 98 07/29/17 08:00 Nasal Cannula 2.00 07/29/17 03:45 81 07/29/17 00:00 Nasal Cannula 2.00 07/29/17 00:00 98.4 84 20 114/54 (74) 98 07/28/17 23:42 81 Coded Allergies: *MDRO Multi-Drug Resistant Organism (Verified Allergy, Unknown, 07/09/17) MRSA Physical Exam Remarks R foot/ankle wound vac intact and functioning properly Assessment & Plan A/P s/p I&D Right ankle/foot abscess 07/28/17 Dr Galvez Continue wound vac Will assess wound in coming days and assess need for vac long-term Nadir Mello DPM Jul 29, 2017 20:20
[2017-07-29] MEDS: MIRTAZAPINE 15 MG TAB PO SCH (20:38)
[2017-07-29] MEDS: hydrOXYzine HCL 25 MG TAB PO SCH (20:38)
[2017-07-30] VITALS (11 sets, daily range): BP systolic 148–162; BP diastolic 65–70; PULSE 82–89; RESP 16–19; TEMP 97.9–99.8; O2SAT 95–100
[2017-07-30] MEDS: PIPERACIL-TAZO 2.25 GM PREMIX 50 ML IV SCH ×3 (03:16→16:12)
[2017-07-30] MEDS: CHLORHEXIDINE GLUCONATE 2 % 1 PACK (2 CLOTHS) TOP SCH (04:00)
[2017-07-30] MEDS: LEVOTHYROXINE SODIUM 75 MCG TAB PO SCH (05:10)
[2017-07-30] MEDS: INSULIN ASPART SUPPLEMENTAL SCALE SQ SCH ×4 (08:00→20:19)
[2017-07-30] MEDS: VITAMIN B CMPLX/VITC/FOLIC AC CAP PO SCH (08:48)
[2017-07-30] MEDS: PANTOPRAZOLE SOD 40 MG DELAYED RELEASE TAB PO SCH (08:48)
[2017-07-30] MEDS: DOCUSATE SODIUM 50 MG/SENNA 8.6 MG TAB PO SCH ×2 (08:48→20:21)
[2017-07-30] MEDS: SODIUM CHLORIDE 0.9% FLUSH 10 ML FLUSH IV FLUSH SCH ×2 (08:48→20:21)
[2017-07-30] MEDS: COLLAGENASE OINT 30 GM TUBE TOPICAL SCH (09:00)
[2017-07-30] MEDS: POLYETHYLENE GLYCOL 17 GM PKG PO SCH (09:30)
--- NOTE | 2017-07-30 09:56 | HHI.IDPN ---
Subjective Subjective Remarks Patient is a 72-year-old female, presented to the hospital complaining of one weeke history of nausea, vomiting and black stool. She has ESRD and gets HD MWF. She felt sick and missed her HD on the day of admission. She denies any abdominal pain. On presentation, she had severe anemia. GI evaluated her and she had EGD, with findings of hernia. Colonoscopy is still pending. She was also found to have an ulcer of her R big toe. Podiatry saw patient and did surgery 07/25. Infection found on big toe and and also in the R ankle. Cultures are growing Citrobacter and second GNR. patient has been running fevers since 07/24. her WBC has remains elevated and above 30K. Another OR was planned for tomorrow. Patient is also being evaluated by vascular surgery. She is getting CT of the rest of her RLE to evaluate extent of infection. Temps are better. Her WBC remains high at 35K. She got HD today. Hemodynamics are ok. I asked patient how long she has had the R foot wound and she said she does not know. Infectious Disease consultation has been requested to evaluate patient with foot infection and C/S with GNR. She is on Zosyn and Vancomycin. Notes reviewed Has occasional low grade temps Had another I and D R foot 07/28 - C/S pending Has wound vac on R foot First C/S Citrobacter and Alcaligenes No pain Antibiotics Current Medications Zosyn Vancomycin Medications (Trade) Dose Ordered Sig/Rita Route Start Time Stop Time Status Last Admin (NS Flush) 2 ml UNSCH PRN IV FLUSH 07/22/17 16:00 (NS Flush) 2 ml BID IV FLUSH 07/22/17 21:00 07/30/17 08:48 (Tylenol) 650 mg Q6H PRN PO 07/22/17 16:00 07/26/17 19:32 (Zofran Inj) 4 mg Q6H PRN IV PUSH 07/22/17 16:00 Miscellaneous Information 1 Q361D XX 07/22/17 16:00 (Chlorhexidine 2% Cloth) Taper DAILY@04 TOP 07/23/17 04:00 07/19/18 03:59 07/29/17 04:00 (Chlorhexidine 2% Cloth) 3 pack UNSCH PRN TOP 07/22/17 16:00 (Velma-Colace) 1 tab BID PO 07/22/17 21:00 07/30/17 08:48 (Milk Of Magnesia Liq) 30 ml Q12H PRN PO 07/22/17 16:00 (Senokot) 17.2 mg Q12H PRN PO 07/22/17 16:00 (Dulcolax Supp) 10 mg DAILY PRN RECTAL 07/22/17 16:00 (Lactulose Liq) 30 ml DAILY PRN PO 07/22/17 16:00 Sodium Chloride 1,000 ml @ 0 mls/hr Q0M PRN OTHER 07/22/17 16:21 (Heparin Inj) 8,000 units UNSCH PRN IV FLUSH 07/22/17 16:30 Sodium Chloride 1,000 ml @ 200 mls/hr Q5H PRN IV 07/22/17 16:21 Sodium Chloride 1,000 ml @ 0 mls/hr Q0M PRN OTHER 07/22/17 16:21 (Mannitol Inj) 12.5 gm UNSCH PRN IV 07/22/17 16:30 Albumin Human 100 ml @ 60 mls/hr UNSCH PRN IV 07/22/17 16:30 (NS Flush) 5 ml UNSCH PRN IV FLUSH 07/22/17 16:30 (Heparin Inj) UNSCH PRN .XX 07/22/17 16:30 (Gentamicin (Dialysis) Inj) 20 mg UNSCH PRN OTHER 07/22/17 16:30 (Zofran Inj) 4 mg UNSCH PRN IV PUSH 07/22/17 16:30 (Tylenol) 650 mg UNSCH PRN PO 07/22/17 16:30 07/25/17 11:36 (Benadryl) 25 mg UNSCH PRN PO 07/22/17 16:30 (Nitrostat Sl) 0.4 mg UNSCH PRN SL 07/22/17 16:30 (Catapres) 0.1 mg UNSCH PRN PO 07/22/17 16:30 (Epogen Inj) 10,000 units UNSCH PRN IV PUSH 07/22/17 16:30 07/29/17 16:37 (Gelfoam 12 Mm/7 Mm Top) 1 foam UNSCH PRN TOP 07/22/17 16:30 07/26/17 09:39 (Atarax) 25 mg HS PO 07/22/17 21:00 07/29/17 20:38 (Synthroid) 75 mcg DAILY@0600 PO 07/23/17 06:00 07/30/17 05:10 (Remeron) 15 mg HS PO 07/22/17 21:00 07/29/17 20:38 (Nephrocaps) 1 cap DAILY PO 07/23/17 09:00 07/30/17 08:48 (Levemir Inj) 10 units HS SQ 07/22/17 21:00 Future Hold 07/22/17 21:00 (D50w (Vial) Inj) 25 ml UNSCH PRN IV 07/22/17 17:15 07/25/17 08:04 (Glucagon Inj) 1 mg UNSCH PRN IM/SQ 07/22/17 17:15 (Santyl Oint) 1 applic DAILY TOPICAL 07/25/17 09:00 07/28/17 08:01 Pharmacy Profile Note 0 ml @ 0 mls/hr UNSCH OTHER 07/24/17 16:00 Piperacillin Sod/ Tazobactam Sod 50 ml @ 100 mls/hr Q8H IV 07/24/17 18:00 07/30/17 08:48 (Narcan Inj) 0.4 mg UNSCH PRN IV PUSH 07/25/17 22:30 Vancomycin HCl 1000 mg/Sodium Chloride 250 ml @ 250 mls/hr WITH DIALYSIS IV 07/26/17 11:00 (NovoLOG SUPPLEMENTAL SCALE) 1 ACHS SQ 07/27/17 12:00 07/29/17 12:00 (Protonix) 40 mg DAILY PO 07/28/17 09:00 07/30/17 08:48 (Apresoline Inj) 10 mg Q6H PRN IV PUSH 07/29/17 10:30 (Proair Hfa Inh) 2 puff Q2HR PRN INH 07/29/17 10:30 (Miralax) 17 gm DAILY PO 07/30/17 09:30 Lines PIV Past Medical History Diabetes Hypertension Anemia GERD Hypothyroidism Secondary hyperparathyroidism Osteoarthritis Past Surgical History History of toe amputation AV fistula left forearm Partial hysterectomy 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 Objective . Vital Signs Date Time Temp Pulse Resp B/P (MAP) Pulse Ox O2 Delivery O2 Flow Rate FiO2 07/30/17 09:26 Nasal Cannula 2.00 07/30/17 09:07 85 07/30/17 04:00 86 07/30/17 04:00 99.6 86 18 149/68 (95) 100 07/30/17 00:00 99.8 86 18 148/65 (92) 100 07/30/17 00:00 89 07/29/17 20:00 89 07/29/17 13:14 81 07/29/17 12:06 99.2 85 20 130/60 (83) 100 07/29/17 11:02 79 . Laboratory Tests Test 07/29/17 07:20 White Blood Count 14.7 TH/MM3 Red Blood Count 2.66 MIL/MM3 Hemoglobin 7.3 GM/DL Hematocrit 22.0 % Mean Corpuscular Volume 82.7 FL Mean Corpuscular Hemoglobin 27.6 PG Mean Corpuscular Hemoglobin Concent 33.3 % Red Cell Distribution Width 18.6 % Platelet Count 438 TH/MM3 Mean Platelet Volume 10.2 FL Neutrophils (%) (Auto) 81.5 % Lymphocytes (%) (Auto) 6.4 % Monocytes (%) (Auto) 10.4 % Eosinophils (%) (Auto) 1.4 % Basophils (%) (Auto) 0.3 % Neutrophils # (Auto) 12.0 TH/MM3 Lymphocytes # (Auto) 0.9 TH/MM3 Monocytes # (Auto) 1.5 TH/MM3 Eosinophils # (Auto) 0.2 TH/MM3 Basophils # (Auto) 0.0 TH/MM3 CBC Comment DIFF FINAL Differential Comment Laboratory Tests Test 07/29/17 07:20 Blood Urea Nitrogen 46 MG/DL Creatinine 7.04 MG/DL Random Glucose 127 MG/DL Calcium Level 7.9 MG/DL Phosphorus Level 4.3 MG/DL Magnesium Level 1.9 MG/DL Sodium Level 141 MEQ/L Potassium Level 3.5 MEQ/L Chloride Level 106 MEQ/L Carbon Dioxide Level 23.9 MEQ/L Anion Gap 11 MEQ/L Estimat Glomerular Filtration Rate 7 ML/MIN Imaging Last Impressions Tibia/Fibula X-Ray 07/26/17 0628 Signed Impressions: Service Date/Time: Wednesday, July 26, 2017 06:46 - CONCLUSION: Distal leg soft tissue swelling without an acute bony abnormality. Jacob Hall MD Lower Extremity CT 07/26/17 0000 Signed Impressions: Service Date/Time: Wednesday, July 26, 2017 13:29 - CONCLUSION: 1. Focal emphysema with spontaneously dense material is seen in the soft tissues just posterior to the ankle joint. 2. Focal emphysema with spontaneously dense material is seen in the soft tissues along the plantar surface of the foot in a linear fashion. The findings may be postsurgical. This needs to be correlated with any recent surgery.. Nain Castillo MD Foot X-Ray 07/26/17 0000 Signed Impressions: Service Date/Time: Wednesday, July 26, 2017 06:50 - CONCLUSION: Soft tissue changes without an acute bony abnormality. Jacob Hall MD Ankle X-Ray 07/26/17 0000 Signed Impressions: Service Date/Time: Wednesday, July 26, 2017 06:44 - CONCLUSION: Nonspecific soft tissue swelling of the right ankle region. No acute bony abnormality. Jacob Hall MD Foot MRI 07/25/17 0000 Signed Impressions: Service Date/Time: July 12:05 - CONCLUSION: 1. Tenosynovitis of the flexor hallucis longus tendon with fluid extending to the plantar surface. 2. Mild bone marrow edema involving the proximal phalanx of the great toe which may be reactive. 3. No discrete evidence of post [place] line is. Eder Nieto MD Chest X-Ray 07/23/17 0000 Signed Impressions: Service Date/Time: Sunday, July 23, 2017 03:30 - CONCLUSION: Stable appearance of cardiomegaly and central vascular engorgement. Praneeth Barrientos MD Physical Exam GENERAL: awakens easily, not in respiratory distress. SKIN: Warm and dry. No generalized rash HEAD: Atraumatic. Normocephalic. No temporal wasting, or tenderness. EYES: [place] conjunctiva. No petechia or hemorrhage. Pupils equal, round and reactive to light. Extraocular movements full and intact. No scleral icterus. No injection or drainage. EARS, NOSE AND THROAT: Nose without bleeding or purulent nasal discharge. No sinus tenderness. Mucous membranes pink and moist. No oral lesions noted. NECK: Trachea midline. Supple and not tender, no meningeal signs CARDIOVASCULAR: Regular rate and rhythm. No murmurs, rubs or gallops heard RESPIRATORY: Clear to auscultation. Breath sounds equal bilaterally. No rales , wheezing or rhonchi ABDOMEN: Soft, non-tender, nondistended. Bowel sounds present and normoactive. No guarding. No rebound. No organomegaly. EXTREMITIES: No clubbing, cyanosis. Has dry and intact dressing on the R foot, has wound vac in place, not a lot of output. RLE with less swelling and less redness. No calf tenderness. Well perfused and warm. AVF ok NEUROLOGICAL: Awake and alert. Cranial nerves grossly intact. Motor grossly within normal limits. PSYCHIATRIC: Normal affect, calm and cooperative. LINE: No evidence of infection Assessment & Plan Remarks IMPRESSION Sepsis due to infection RLE - better - S/P I and D, C/S Citrobacter and Alcaligenes - repeat C/S pending Severe anemia, GIB - EGD ok - colonoscopy with AVM seen, no active bleeding seen during procedure Leukocytosis, due to infection, improving ESRD on HD MWF RECOMMENDATION Continue Zosyn Continue Vanco Follow new C/S and adjust Abx, deescalate once second C/S available Likely will be able to use oral Abx when ready for D/C Follow temps and CBC Monitor progress I will be OOT 07/31-08/05 Other ID covering in my absence Klaudia Harrington MD Jul 30, 2017 09:56
--- NOTE | 2017-07-30 11:11 | HHI.NPPN ---
Subjective General Problems: Anemia Renal Failure: Chronic, End Stage Renal Disease Interval History Dialyzed yesterday. She is awake and alert. Low grade fevers overnight. (Teresa Parekh) Review of Systems General Constitutional: Fatigue (Teresa Parekh) Objective Data Data Vital Signs Date Time Temp Pulse Resp B/P (MAP) Pulse Ox O2 Delivery O2 Flow Rate FiO2 07/30/17 09:26 Nasal Cannula 2.00 07/30/17 09:07 85 07/30/17 08:07 97.9 88 19 158/70 (99) 95 07/30/17 04:00 86 07/30/17 04:00 99.6 86 18 149/68 (95) 100 07/30/17 00:00 99.8 86 18 148/65 (92) 100 07/30/17 00:00 89 07/29/17 20:00 89 07/29/17 13:14 81 07/29/17 12:06 99.2 85 20 130/60 (83) 100 (Teresa Parekh) -: 07/29/17 0720 07/29/17 0720 Imaging Last 72 hours Impressions Aorta w/Runoff CTA 07/29/17 0000 Signed Impressions: Service Date/Time: Saturday, July 29, 2017 12:52 - CONCLUSION: 1. No significant aortic stenosis. 2. No significant inflow stenosis on the right. There is moderate stenosis of the left common iliac artery origin. 3. SFA are heavily calcified bilaterally with tandem stenoses in the size, above. 4. Focal severe stenosis of the right popliteal artery at the level of the knee. 5. Heavily calcified small caliber limited runoff vessels. Please see CT angiography details above. 6. Small bilateral pleural effusions with airspace disease at the lung bases, likely atelectasis. 7. Moderate ascites with soft tissue anasarca. 8. Multiple low density lesions in the spleen may be flow related. Further evaluation may be performed with ultrasound as indicated. 9. Ulcer along the plantar aspect of the right foot. Flaco Santoro MD Tubes & Lines Comment wound vac (Teresa Parekh) Physical Exam General Appearance: Well Developed, No Acute Distress, Comfortable, Malnourished (Teresa Parekh) Neck Neck Exam: Neck Supple (Teresa Parekh) Pulmonary Resp Exam: Clear Bilaterally, Breath Sounds Equal (Teresa Parekh) Cardiology CV Exam: Regular, Normal Sinus Rhythm (Teresa Parekh) Gastrointestinal/Abdomen GI Exam: Soft, Non-Tender, Bowel Sounds Present, Non-Distended (Teresa Parekh) Musculoskeletal MS Exam: Normal Tone (Teresa Parekh) Integumentary Skin Exam: Warm, Dry Skin Remarks right lower extremity dressing in place wound vac (Teresa Parekh) Extremeties Extremities Exam: Trace Edema (Teresa Parekh) Neurologic Neuro Exam: Alert, Awake (Teresa Parekh) Psychiatric Psych Exam: Appropriate Responses (Teresa Parekh) Assessment/Plan Discussed Condition With: Patient Assessment Summary: Anemia of CKD, Hypertension, End Stage Renal Disease Problem List: (1) ESRD (end stage renal disease) on dialysis ICD Codes: N18.6 - End stage renal failure on dialysis; Z99.2 - Dependence on renal dialysis Status: Chronic Plan: Continue HD MWF, 2 L UF yesterday Existing outpatient arrangements in place after discharge Avoid IVF, gadolinium High protein diet ordered Intermittently obtain renal panel Phosphorus level is acceptable. She is not on binders currently. (2) GI bleed ICD Codes: K92.2 - Gastrointestinal hemorrhage, unspecified Status: Acute Plan: GI following, may need capsule endoscopy as outpatient She is persistently anemic, epogen with HD (3) Anemia ICD Codes: D64.9 - Anemia, unspecified Status: Acute Plan: Transfuse if needed; consider prior to discharge and/or with dialysis tomorrow. On Epogen with HD (4) Diabetes mellitus ICD Codes: E11.9 - Type 2 diabetes mellitus without complications Status: Chronic Plan: Insulin as needed Continue to monitor glucose (5) Ankle abscess ICD Codes: L02.419 - Cutaneous abscess of limb, unspecified Plan: ID following S/P I&D over the weekend On vancomycin with HD and Zosyn; likely to be on oral Abx at discharge s/p angiogram wound vac in place (Iglesia,Teresa B. REFERRAL SPECIALIST) Plan patient was seen and examined. Agree with above assessment and plan. (Dao Greene MD) Problem Qualifiers (1) Diabetes mellitus: Teresa Parekh [facility] Jul 30, 2017 11:11 Dao Greene MD Jul 30, 2017 19:31
[2017-07-30 14:05] LABS: HEMATOCRIT 23.9 % (35.0-46.0); MEAN CELL VOLUME 83.2 FL (80.0-100.0); MEAN CORPUSCULAR HGB CONC 32.5 % (32.0-36.0); PLATELET COUNT 551 TH/MM3 (150-450); RED BLOOD COUNT 2.87 MIL/MM3 (4.00-5.30); RED CELL DISTRIBUTION WIDTH 19.2 % (11.6-17.2); REVIEW FLAG FINAL
--- NOTE | 2017-07-30 16:46 | PQ ---
Physician Query Response Document PATIENT: LESLIE HAREDN : 1945 ADMIT DATE: 07/22/2017 4:08 PM DISCH DATE: RESPONDING PROVIDER #: Bruna QUERY TEXT: Conflicting Documentation Clarification A single mention or documentation of multiple diagnoses for the same clinical presentation appears in the record. Please clarify the diagnosis/diagnoses- SEPSIS- PER 07/26 ID CONSULTATION. Please also document if the condition is: -- Confirmed and current -- Confirmed, treated and resolved -- Ruled out -- Other, please specify PLEASE INDICATE IF CONDITION WAS PRESENT ON ADMISSSION. The patient's Clinical Indicators include: Per Consultation and progress notes by Infectious Disease, they have given an Impression of: Sepsis due to infection RLE Consultation 07/26 Query created by: Lissa Sharp on 07/30/2017 1:41 PM RESPONSE TEXT: Sepsis Electronically signed by: Ronald Singer MD 07/30/2017 4:43 PM
--- NOTE | 2017-07-30 18:21 | HHI.PR ---
Subjective Remarks Follow-up foot abscess. Denies foot pain. Positive bowel movement. Discussed with RN Objective Vitals Vital Signs Date Time Temp Pulse Resp B/P (MAP) Pulse Ox O2 Delivery O2 Flow Rate FiO2 07/30/17 16:46 82 07/30/17 16:08 98.8 84 19 162/70 (100) 96 07/30/17 15:51 100 Nasal Cannula 2.00 07/30/17 12:19 82 07/30/17 12:08 98.0 83 19 162/70 (100) 100 07/30/17 10:50 97 Nasal Cannula 2.00 07/30/17 09:26 Nasal Cannula 2.00 07/30/17 09:07 85 07/30/17 08:07 97.9 88 19 158/70 (99) 95 07/30/17 04:00 86 07/30/17 04:00 99.6 86 18 149/68 (95) 100 07/30/17 00:00 99.8 86 18 148/65 (92) 100 07/30/17 00:00 89 07/29/17 20:00 89 I/O 07/29/17 07/29/17 07/29/17 07/30/17 07/30/17 07/30/17 07:00 15:00 23:00 07:00 15:00 23:00 Intake Total 1467 ml 50 ml 480 ml Output Total 0 ml 2000 ml Balance 1467 ml 50 ml -1520 ml Intake Oral 720 ml 480 ml IV Total 747 ml 50 ml Output Urine Total 0 ml Hemodialysis 2000 ml # Voids 0 # Bowel Movements 0 0 Result Diagram: 07/30/17 1320 07/30/17 1320 Imaging Last Impressions Aorta w/Runoff CTA 07/29/17 0000 Signed Impressions: Service Date/Time: Saturday, July 29, 2017 12:52 - CONCLUSION: 1. No significant aortic stenosis. 2. No significant inflow stenosis on the right. There is moderate stenosis of the left common iliac artery origin. 3. SFA are heavily calcified bilaterally with tandem stenoses in the size, above. 4. Focal severe stenosis of the right popliteal artery at the level of the knee. 5. Heavily calcified small caliber limited runoff vessels. Please see CT angiography details above. 6. Small bilateral pleural effusions with airspace disease at the lung bases, likely atelectasis. 7. Moderate ascites with soft tissue anasarca. 8. Multiple low density lesions in the spleen may be flow related. Further evaluation may be performed with ultrasound as indicated. 9. Ulcer along the plantar aspect of the right foot. Flaco Santoro MD Tibia/Fibula X-Ray 07/26/17 0628 Signed Impressions: Service Date/Time: Wednesday, July 26, 2017 06:46 - CONCLUSION: Distal leg soft tissue swelling without an acute bony abnormality. Jacob Hall MD Lower Extremity CT 07/26/17 0000 Signed Impressions: Service Date/Time: Wednesday, July 26, 2017 13:29 - CONCLUSION: 1. Focal emphysema with spontaneously dense material is seen in the soft tissues just posterior to the ankle joint. 2. Focal emphysema with spontaneously dense material is seen in the soft tissues along the plantar surface of the foot in a linear fashion. The findings may be postsurgical. This needs to be correlated with any recent surgery.. Nain Castillo MD Foot X-Ray 07/26/17 0000 Signed Impressions: Service Date/Time: Wednesday, July 26, 2017 06:50 - CONCLUSION: Soft tissue changes without an acute bony abnormality. Jacob Hall MD Ankle X-Ray 07/26/17 0000 Signed Impressions: Service Date/Time: Wednesday, July 26, 2017 06:44 - CONCLUSION: Nonspecific soft tissue swelling of the right ankle region. No acute bony abnormality. Jacob Hall MD Foot MRI 07/25/17 0000 Signed Impressions: Service Date/Time: July 12:05 - CONCLUSION: 1. Tenosynovitis of the flexor hallucis longus tendon with fluid extending to the plantar surface. 2. Mild bone marrow edema involving the proximal phalanx of the great toe which may be reactive. 3. No discrete evidence of post [place] line is. Eder Nieto MD Chest X-Ray 07/23/17 0000 Signed Impressions: Service Date/Time: Sunday, July 23, 2017 03:30 - CONCLUSION: Stable appearance of cardiomegaly and central vascular engorgement. Praneeth Barrientos MD Objective Remarks GENERAL: 72 AA Female well-developed and well-nourished in no distress SKIN: Warm and dry. CARDIOVASCULAR: Regular rate and rhythm. S1, S2. No S4. Without murmur RESPIRATORY: Clear to auscultation. Breath sounds equal bilaterally. GASTROINTESTINAL: Abdomen soft, non-tender, nondistended. MUSCULOSKELETAL: Right foot with VAC dressing NEUROLOGICAL: Awake and alert. No obvious cranial nerve deficits. Motor grossly within normal limits. 5/5 muscle strength in the arms and legs. Normal speech. Procedures Foot abscess irrigation and debridement, EGD and colonoscopy A/P Problem List: (1) Foot abscess, right ICD Code: L02.611 - Cutaneous abscess of right foot Assessment and Plan Right foot and ankle abscess Status post irrigation debridement by podiatry. Continue wound VAC, IV Zosyn and vancomycin wound culture grew Citrobacter and Alcaligenes follow-up repeat culture to guide de-escalation of antimicrobials, growing gram variable rods. Vascular surgery has been consulted to evaluate for PAD follow-up CTA GI bleed. EGD 07/23 with Schatzki ring mild to moderate and moderate hiatal hernia. No active bleeding. 07/26 - colonoscopy -follow-up polyp snared had ICV. Diverticulosis. AVM's in cecum and ascending colon. Continue PPI and follow up pathology. Workup so endoscopy Acute blood loss anemia and of chronic kidney disease. Transfused 4 units PRBCs. On Epogen 10,000 units with hemodialysis. Repeat CBC showed slightly improved hemoglobin 7.7. Diabetes mellitus. Holding insulin glargine 10 units at night. Currently on Aspart sliding scale insulin with Accu-Cheks every before meals and at bedtime Depression. Stable continue mirtazapine 15 mg at night and hydroxyzine 25 mg at night for depression/anxiety Hypertension. Currently off antihypertensives. Hydralazine as needed. Continue to monitor Hypothyroidism. Continue levothyroxine 75 mics grams daily for hypothyroidism End-stage renal disease on hemodialysis Saturday/Saturday/Saturday with Dr. Buchanan DVT - SCD/holding pharmacological prophylaxis in light of GI bleeding Discharge Planning Not ready for discharge may need additional right foot surgery by podiatry Ronald Singer MD Jul 30, 2017 18:21
[2017-07-30] MEDS: MIRTAZAPINE 15 MG TAB PO SCH (20:21)
[2017-07-30] MEDS: hydrOXYzine HCL 25 MG TAB PO SCH (20:21)
--- NOTE | 2017-07-30 23:15 | PD.POD ---
Subjective Podiatric Problems s/p I&D Right ankle/foot abscess 07/28/17 Dr Galvez Past Med/Surg/Social History Past Medical History Endocrine: REPORTS HX OF: Diabetes mellitus Cardiovascular: REPORTS HX OF: Hypertension Gastrointestinal: REPORTS HX OF: Liver disease Genitourinary: REPORTS HX OF: Kidney failure Past Surgical History Gastrointestinal: DENIES HX OF: Colectomy, total Gynecologic: DENIES HX OF: Hysterectomy Musculoskeletal: REPORTS HX OF: Other musculoskeletal srg (amputation of the left hallux) Breast: DENIES HX OF: Mastectomy, bilateral, Mastectomy, left, Mastectomy, right Social History Smoking Status: Current Every Day Smoker Objective Vital Signs Vital Signs Date Time Temp Pulse Resp B/P (MAP) Pulse Ox O2 Delivery O2 Flow Rate FiO2 07/30/17 20:30 Nasal Cannula 2.00 07/30/17 20:00 98.4 84 16 149/70 (96) 98 07/30/17 16:46 82 07/30/17 16:08 98.8 84 19 162/70 (100) 96 07/30/17 15:51 100 Nasal Cannula 2.00 07/30/17 12:19 82 07/30/17 12:08 98.0 83 19 162/70 (100) 100 07/30/17 10:50 97 Nasal Cannula 2.00 07/30/17 09:26 Nasal Cannula 2.00 07/30/17 09:07 85 07/30/17 08:07 97.9 88 19 158/70 (99) 95 07/30/17 04:00 86 07/30/17 04:00 99.6 86 18 149/68 (95) 100 07/30/17 00:00 99.8 86 18 148/65 (92) 100 07/30/17 00:00 89 Coded Allergies: *MDRO Multi-Drug Resistant Organism (Verified Allergy, Unknown, 07/09/17) MRSA Physical Exam Remarks R foot/ankle with open wound down to level of tendon spanning medial ankle from tarsal tunnel area to approximately 6cm proximal to achilles insertion medially. No bone noted in wound at this level. There is plantar 1st metatarsal head wound and plantar incision tracking up flexor hallucis longus tendon sheath area. There is lateral extensive wound from lateral midfoot behind lateral malleolus down to level of peroneal tendons. No foul odor noted. No necrotic tissue visualized in wounds. Assessment & Plan A/P s/p I&D Right ankle/foot abscess 07/28/17 Dr Galvez Continue wound vac Assessed wounds tonight. I feel the only way this limb is salvageable is with long-term wound vac for undetermined length of time Ok with discharge with wound vac at home with m/w/f vac changed R foot/ankle with follow up set up for patient at [facility]. Nadir Mello DPM Jul 30, 2017 23:15
[2017-07-31] VITALS (7 sets, daily range): BP systolic 148–161; BP diastolic 67–75; PULSE 78–86; RESP 16–19; TEMP 97.4–99.2; O2SAT 91–100
[2017-07-31] MEDS: CHLORHEXIDINE GLUCONATE 2 % 1 PACK (2 CLOTHS) TOP SCH (02:31)
[2017-07-31] MEDS: PIPERACIL-TAZO 2.25 GM PREMIX 50 ML IV SCH ×3 (02:31→17:41)
[2017-07-31] MEDS: LEVOTHYROXINE SODIUM 75 MCG TAB PO SCH (06:00)
[2017-07-31] MEDS: DOCUSATE SODIUM 50 MG/SENNA 8.6 MG TAB PO SCH ×2 (08:41→20:51)
[2017-07-31] MEDS: SODIUM CHLORIDE 0.9% FLUSH 10 ML FLUSH IV FLUSH SCH ×2 (08:41→20:53)
[2017-07-31] MEDS: PANTOPRAZOLE SOD 40 MG DELAYED RELEASE TAB PO SCH (08:41)
[2017-07-31] MEDS: INSULIN ASPART SUPPLEMENTAL SCALE SQ SCH ×4 (08:42→20:53)
[2017-07-31] MEDS: VITAMIN B CMPLX/VITC/FOLIC AC CAP PO SCH (08:43)
[2017-07-31] MEDS: POLYETHYLENE GLYCOL 17 GM PKG PO SCH (08:47)
[2017-07-31] MEDS: COLLAGENASE OINT 30 GM TUBE TOPICAL SCH (09:00)
--- NOTE | 2017-07-31 09:40 | HHI.PR ---
Subjective Remarks Follow-up right foot abscess. Patient denies foot pain. Cleared for discharge by podiatry. Discussed with vascular surgery, no surgical intervention recommended after reviewing CTA. Recommended antiplatelets will obtain clearance from GI Objective Vitals Vital Signs Date Time Temp Pulse Resp B/P (MAP) Pulse Ox O2 Delivery O2 Flow Rate FiO2 07/31/17 08:00 Nasal Cannula 2.00 07/31/17 08:00 98.7 80 18 148/75 (99) 94 07/31/17 04:00 78 07/31/17 03:47 97.4 81 16 160/75 (103) 100 07/31/17 00:00 85 07/31/17 00:00 98.5 85 16 152/73 (99) 100 07/30/17 20:30 Nasal Cannula 2.00 07/30/17 20:00 85 07/30/17 20:00 98.4 84 16 149/70 (96) 98 07/30/17 16:46 82 07/30/17 16:08 98.8 84 19 162/70 (100) 96 07/30/17 15:51 100 Nasal Cannula 2.00 07/30/17 12:19 82 07/30/17 12:08 98.0 83 19 162/70 (100) 100 07/30/17 10:50 97 Nasal Cannula 2.00 I/O 07/30/17 07/30/17 07/30/17 07/31/17 07/31/17 07/31/17 07:00 15:00 23:00 07:00 15:00 23:00 Intake Total 380 ml Balance 380 ml Intake Oral 380 ml # Voids 4 1 # Bowel Movements 3 1 Result Diagram: 07/30/17 1320 07/30/17 1320 Objective Remarks GENERAL: 72 AA Female well-developed and well-nourished in no distress SKIN: Warm and dry. CARDIOVASCULAR: Regular rate and rhythm. S1, S2. No S4. Without murmur RESPIRATORY: Clear to auscultation. Breath sounds equal bilaterally. GASTROINTESTINAL: Abdomen soft, non-tender, nondistended. MUSCULOSKELETAL: Right foot with VAC dressing NEUROLOGICAL: Awake and alert. No obvious cranial nerve deficits. Motor grossly within normal limits. 5/5 muscle strength in the arms and legs. Normal speech. Procedures Foot abscess irrigation and debridement, EGD and colonoscopy A/P Problem List: (1) Foot abscess, right ICD Code: L02.611 - Cutaneous abscess of right foot Assessment and Plan Diabetic foot infection/Right foot and ankle abscess Status post irrigation debridement by podiatry. Continue wound VAC, IV Zosyn and vancomycin wound culture grew Citrobacter and Alcaligenes follow-up repeat culture to guide de- escalation of antimicrobials, growing gram variable rods. Podiatry has cleared patient for discharge. We will ask ID for discharge antibiotics. Vascular surgery has recommended medical management no surgical intervention and start antiplatelets if okay with GI. GI bleed. EGD 07/23 with Schatzki ring mild to moderate and moderate hiatal hernia. No active bleeding. 07/26 - colonoscopy -follow-up polyp snared had ICV. Diverticulosis. AVM's in cecum and ascending colon. Continue PPI and follow up pathology unremarkable. Capsule endoscopy recommended Acute blood loss anemia and of chronic kidney disease. Transfused 4 units PRBCs. On Epogen 10,000 units with hemodialysis. Repeat CBC showed slightly improved hemoglobin 8. Diabetes mellitus. Holding insulin glargine 10 units at night. Currently on Aspart sliding scale insulin with Accu-Cheks every before meals and at bedtime Depression. Stable continue mirtazapine 15 mg at night and hydroxyzine 25 mg at night for depression/anxiety Hypertension. Currently off antihypertensives. Hydralazine as needed. Continue to monitor Hypothyroidism. Continue levothyroxine 75 mics grams daily for hypothyroidism End-stage renal disease on hemodialysis Saturday/Saturday/Saturday with Dr. Buchanan DVT - SCD/holding pharmacological prophylaxis in light of GI bleeding Discharge Planning Discharge when wound VAC arrangements and cleared by Ronald Auguste MD Jul 31, 2017 09:40
--- NOTE | 2017-07-31 09:41 | HHI.DCPOC ---
Discharge Care Plan Diagnosis: (1) Diabetes mellitus (2) Foot abscess, right Your Health Problems Are: Difficulty with ADL Exercise Tolerance Goals to Promote Your Health * To prevent worsening of your condition and complications * To maintain your health at the optimal level Directions to Meet Your Goals Take your medications as prescribed Follow your dietary instruction Follow activity as directed Keep your appointments as scheduled Take your immunizations and boosters as scheduled If your symptoms worsen call your PCP, if no PCP go to Urgent Care Center or Emergency Room Smoking is Dangerous to Your Health. Avoid second hand smoke Call the 24-hour hour crisis hotline for domestic abuse at Ronald Singer MD Jul 31, 2017 09:41
--- NOTE | 2017-07-31 09:41 | HHI.FF ---
Face to Face Verification Diagnosis: (1) Foot abscess, right Physical Therapy Order: Evaluate and Treat, Improve ambulation, Strength and gait training Home Health Nursing Order: Medical education Signs/symptoms of disease process Diabetic education Medication education-adverse effect Wound care and dressing changes (wound vac MWF per podiatry) Nursing assessment with vital signs I have seen patient Anel Bolivar on 07/31/17. My clinical findings support the need for the requested home health care services because: Ltd mobility - disease progression Deconditioned w/ increased weakness I certify that my clinical findings support that this patient is homebound because: Unsafe to leave home unassisted Ronald Singer MD Jul 31, 2017 09:41
--- NOTE | 2017-07-31 10:20 | PD.CAR.PN ---
CVT Progress Note Subjective/Hospital Course: Referral received Full consult MARIANNA Reaves 07/27/17 Patient with osteomyelitis and abscess of the right foot and cultures positive for Citrobacter Koseri Underwent successful drainage of the abscesses of the foot by podiatry There is of course question whether this is going to heal adequately in the face of patient's comorbidities CTA with runoff is pending to evaluate the circulatory system and blood supply to the foot Will continue to follow patient 07/28/17 No change in current status Post debridement and drainage of the foot Patient doing okay at this time CTA with a runoff is pending Nothing to add to care till I see the CTA with runoff 07/31/17 It took a while to get CTA done but evaluating this it appears that patient has diffuse vascular disease in both legs On the right side patient has moderate stenosis of the superficial femoral artery and then near occlusion of the popliteal artery with reconstitution of very weak distal vessels and I cannot tell whether they reach the foot or not but are clearly interrupted and reconstituted in several places On the left side situation slightly better but again patient has hemodynamically significant popliteal stenosis Decision whether to do and intervention or not is based purely on the clinical parameters, so if the podiatry surgical incisions are healing well I would avoid doing any endovascular procedures at this time Based on the podiatry evaluation patient is healing okay so is fine from my point to discharge the patient and she should follow-up with me in about a month in the office at which point we going to reassess the situation More likely than not patient will eventually need popliteal balloon angioplasty in the endovascular suite but this is not something that should be emergently done now Objective: Vital Signs Date Time Temp Pulse Resp B/P (MAP) Pulse Ox O2 Delivery O2 Flow Rate FiO2 07/31/17 08:00 Nasal Cannula 2.00 07/31/17 08:00 98.7 80 18 148/75 (99) 94 07/31/17 04:00 78 07/31/17 03:47 97.4 81 16 160/75 (103) 100 07/31/17 00:00 85 07/31/17 00:00 98.5 85 16 152/73 (99) 100 07/30/17 20:30 Nasal Cannula 2.00 07/30/17 20:00 85 07/30/17 20:00 98.4 84 16 149/70 (96) 98 07/30/17 16:46 82 07/30/17 16:08 98.8 84 162/70 (100) 96 07/30/17 15:51 100 Nasal Cannula 2.00 07/30/17 12:19 82 07/30/17 12:08 98.0 83 162/70 (100) 100 07/30/17 10:50 97 Nasal Cannula 2.00 Labs: Laboratory Tests Test 07/31/17 07:44 Random Vancomycin Level 9.0 COMMENT Result Diagram: 07/30/17 1320 07/30/17 1320 Amalia De La Cruz MD Jul 31, 2017 10:20
[2017-07-31 11:07] LABS: AUTOMATED NEUTROPHIL # 7.6 TH/MM3 (1.8-7.7); BASOPHIL # 0.1 TH/MM3 (0-0.2); BASOPHIL % 0.6 % (0.0-2.0); EOSINOPHIL # 0.2 TH/MM3 (0-0.4); HEMATOCRIT 24.7 % (35.0-46.0); HEMO FLAGS DIFF FINAL; LYMPH % 5.9 % (9.0-44.0); LYMPHOCYTE # 0.5 TH/MM3 (1.0-4.8); MEAN CORPUSCULAR HEMOGLOBIN 26.9 PG (27.0-34.0); MEAN CORPUSCULAR HGB CONC 32.4 % (32.0-36.0); MONO % 1.5 % (0.0-8.0); PLATELET COUNT 521 TH/MM3 (150-450); RED BLOOD COUNT 2.98 MIL/MM3 (4.00-5.30); RED CELL DISTRIBUTION WIDTH 19.4 % (11.6-17.2); WHITE BLOOD COUNT 8.5 TH/MM3 (4.0-11.0)
[2017-07-31] MEDS: EPOETIN ALFA 10,000 UNITS/ML VIAL IV PUSH PRN (12:25)
--- NOTE | 2017-07-31 14:40 | HHI.NPPN ---
Subjective General Problems: Anemia Renal Failure: Chronic, End Stage Renal Disease Interval History Wound vac was removed. Seen during dialysis. (Teresa Parekh) Review of Systems General Constitutional: Fatigue (Teresa Parekh) Objective Data Data Vital Signs Date Time Temp Pulse Resp B/P (MAP) Pulse Ox O2 Delivery O2 Flow Rate FiO2 07/31/17 08:00 78 07/31/17 08:00 Nasal Cannula 2.00 07/31/17 08:00 98.7 80 18 148/75 (99) 94 07/31/17 04:00 78 07/31/17 03:47 97.4 81 16 160/75 (103) 100 07/31/17 00:00 85 07/31/17 00:00 98.5 85 16 152/73 (99) 100 07/30/17 20:30 Nasal Cannula 2.00 07/30/17 20:00 85 07/30/17 20:00 98.4 84 16 149/70 (96) 98 07/30/17 16:46 82 07/30/17 16:08 98.8 84 19 162/70 (100) 96 07/30/17 15:51 100 Nasal Cannula 2.00 (Teresa Parekh) -: 07/31/17 0958 07/30/17 1320 Imaging Last 72 hours Impressions Aorta w/Runoff CTA 07/29/17 0000 Signed Impressions: Service Date/Time: Saturday, July 29, 2017 12:52 - CONCLUSION: 1. No significant aortic stenosis. 2. No significant inflow stenosis on the right. There is moderate stenosis of the left common iliac artery origin. 3. SFA are heavily calcified bilaterally with tandem stenoses in the size, above. 4. Focal severe stenosis of the right popliteal artery at the level of the knee. 5. Heavily calcified small caliber limited runoff vessels. Please see CT angiography details above. 6. Small bilateral pleural effusions with airspace disease at the lung bases, likely atelectasis. 7. Moderate ascites with soft tissue anasarca. 8. Multiple low density lesions in the spleen may be flow related. Further evaluation may be performed with ultrasound as indicated. 9. Ulcer along the plantar aspect of the right foot. Flaco Santoro MD (Teresa Parekh) Physical Exam General Appearance: Well Developed, No Acute Distress, Comfortable, Malnourished (Teresa Parekh) Neck Neck Exam: Neck Supple (Teresa Parekh) Pulmonary Resp Exam: Clear Bilaterally, Breath Sounds Equal (Teresa Parekh) Cardiology CV Exam: Regular, Normal Sinus Rhythm (Teresa Parekh) Gastrointestinal/Abdomen GI Exam: Soft, Non-Tender, Bowel Sounds Present, Non-Distended (Teresa Parekh) Musculoskeletal MS Exam: Normal Tone (Teresa Parekh) Integumentary Skin Exam: Warm, Dry Skin Remarks right lower extremity dressing in place wound vac (Teresa Parekh) Extremeties Extremities Exam: Trace Edema (Teresa Parekh) Neurologic Neuro Exam: Alert, Awake (Teresa Parekh) Psychiatric Psych Exam: Appropriate Responses (Teresa Parekh) Assessment/Plan Discussed Condition With: Patient Assessment Summary: Anemia of CKD, Hypertension, End Stage Renal Disease Problem List: (1) ESRD (end stage renal disease) on dialysis ICD Codes: N18.6 - End stage renal failure on dialysis; Z99.2 - Dependence on renal dialysis Status: Chronic Plan: Continue HD MWF Seen during dialysis today on a 3K, 350 BFR, goal 2500 ml Existing outpatient arrangements in place after discharge Avoid IVF, gadolinium High protein diet ordered Intermittently obtain renal panel Phosphorus level is acceptable. (2) GI bleed ICD Codes: K92.2 - Gastrointestinal hemorrhage, unspecified Status: Acute Plan: GI following, may need capsule endoscopy as outpatient She is persistently anemic, epogen with HD (3) Anemia ICD Codes: D64.9 - Anemia, unspecified Status: Acute Plan: Transfuse if needed On Epogen with HD (4) Diabetes mellitus ICD Codes: E11.9 - Type 2 diabetes mellitus without complications Status: Chronic Plan: Insulin as needed Continue to monitor glucose (5) Ankle abscess ICD Codes: L02.419 - Cutaneous abscess of limb, unspecified Plan: ID following S/P I&D over the weekend On vancomycin with HD and Zosyn; likely to be on oral Antibiotics at discharge s/p angiogram wound vac removed (Teresa Parekh) Plan patient was seen and examined. Agree with above assessment and plan. She was seen during dialysis. Can be discharged if cleared by ID and podiatry. (Dao Greene MD) Problem Qualifiers (1) Diabetes mellitus: Teresa Parekh Jul 31, 2017 14:40 Dao Greene MD Jul 31, 2017 19:08
[2017-07-31] MEDS ORDERED: WALKER WHEELS/F1 MIS (15:35)
[2017-07-31] MEDS ORDERED: PANT40TA3 PO (15:42)
--- NOTE | 2017-07-31 16:59 | PD.WCN.NOT ---
Wound Consult Description: Received consult from Doctor Mello for VAC dressing change on R foot /ankle wounds. Wound VAC is very difficult to place Communicated with: OTILIA Amaro [address] [place] [id number] Recommendation: Continue with VAC dressing changes Saturday, Saturday, Saturday. 125 mm/hg medium continuous suction Neg Pressure Wound Therapy Wound Location Wound Location: R medial ankle Wound Description Length: 8cm Width: 3cm Depth: 1.3cm Wound bed appearance: ~50% white tissue and ~50% red tissue, Minimal sero-sanguinous drainage without odor Periwound appearance: Other (Full and partial thickness skin loss) Settings Suction: 125 mmHg, Continuous Other Information: Bridged, Windowpaned Foam type: Black Number of pieces: 1 Wound Location Wound Location: R lateral ankle Wound Description Length: 9.7cm Width: 9.3cm Depth: 1.3cm Wound bed appearance: ~60% exposed tendon, ~10% yellow slough, and ~30% pink tissue. Moderate sero- sanguinous drainage is noted without odor Periwound appearance: Other (full and partial thickness skin loss) Settings Suction: 125 mmHg, Continuous Other Information: Bridged, Windowpaned Foam type: Black Number of pieces: 1 Wound Location Wound Location: R plantar foot Wound Description Length: 3.9cm Width: 0.5cm Depth: ~0.5cm Wound bed appearance: Two sutures in place loosely approximating wound with 100% pink tissue visible with depth of 0.5cm Periwound appearance: Unremarkable Settings Suction: 125 mmHg, Continuous Other Information: Bridged, Windowpaned Foam type: Black Number of pieces: 1 Additonal Information Patient seen on [address] [place] [address] for VAC dressing change to R ankle/foot around 1440. Dressing changed with the assistance of Carey LEYVA and sheet writer. Removed dressing in place to reveal three wounds to R ankle and foot. All wound descriptions and measurements are noted above.Cleansed all wounds with normal saline and patted dry. Applied skin prep to periwound before Covering all periwound partial and full thickness skin loss with Xeroform in single layer. Wounds were then window paned with VAC drape. Applied 1 piece of black foam to each wound noted above. Bridged black granufoam over VAC drape to dorsal R foot from wound beds. Xeroform was applied over sutures to wound on plantar foot.Applied Sensi trac pad to Dorsal R foot bridged foam with attached mushroom cap of black granufoam. Covered all exposed granufoam with VAC drape. Wound VAC suctioning with low leak rate on medium continuous suction 125 mm/hg Whitney Virgen [facility] Jul 31, 2017 16:59
[2017-07-31] MEDS: hydrOXYzine HCL 25 MG TAB PO SCH (20:51)
[2017-07-31] MEDS: MIRTAZAPINE 15 MG TAB PO SCH (20:51)
[2017-08-01] VITALS (7 sets, daily range): BP systolic 132–180; BP diastolic 60–79; PULSE 80–89; RESP 16–20; TEMP 98.2–99.1; O2SAT 96–100
[2017-08-01] MEDS: PIPERACIL-TAZO 2.25 GM PREMIX 50 ML IV SCH ×2 (02:21→08:45)
[2017-08-01] MEDS: CHLORHEXIDINE GLUCONATE 2 % 1 PACK (2 CLOTHS) TOP SCH (03:35)
[2017-08-01] MEDS: LEVOTHYROXINE SODIUM 75 MCG TAB PO SCH (06:00)
[2017-08-01] MEDS: INSULIN ASPART SUPPLEMENTAL SCALE SQ SCH ×4 (08:00→20:47)
[2017-08-01] MEDS: PANTOPRAZOLE SOD 40 MG DELAYED RELEASE TAB PO SCH (08:31)
[2017-08-01] MEDS: POLYETHYLENE GLYCOL 17 GM PKG PO SCH (08:31)
[2017-08-01] MEDS: DOCUSATE SODIUM 50 MG/SENNA 8.6 MG TAB PO SCH ×2 (08:31→20:48)
[2017-08-01] MEDS: VITAMIN B CMPLX/VITC/FOLIC AC CAP PO SCH (08:31)
[2017-08-01] MEDS: COLLAGENASE OINT 30 GM TUBE TOPICAL SCH (08:32)
[2017-08-01] MEDS: SODIUM CHLORIDE 0.9% FLUSH 10 ML FLUSH IV FLUSH SCH ×2 (08:45→20:48)
--- NOTE | 2017-08-01 12:04 | HHI.IDPN ---
Note Infectious Disease Note ID COVERAGE: Chart reviewed. Patient has no complaints. says she feels okay. Afebrile. Latest foot culture has gram variable louis which did not grow on subculture. 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 Past Medical History Diabetes Hypertension Anemia GERD Hypothyroidism Secondary hyperparathyroidism Osteoarthritis Past Surgical History History of toe amputation AV fistula left forearm Partial hysterectomy Current Medications Vancomycin Zosyn OBJECTIVE: Vital Signs Date Time Temp Pulse Resp B/P (MAP) Pulse Ox O2 Delivery O2 Flow Rate FiO2 08/01/17 08:00 Nasal Cannula 2.00 08/01/17 08:00 82 08/01/17 08:00 98.5 84 16 180/79 (112) 96 08/01/17 04:00 Nasal Cannula 2.00 08/01/17 04:00 98.5 84 16 147/66 (93) 99 08/01/17 04:00 83 08/01/17 00:00 Nasal Cannula 2.00 08/01/17 00:00 98.7 84 18 132/63 (86) 100 08/01/17 00:00 87 07/31/17 20:06 Nasal Cannula 2.00 07/31/17 20:00 99.2 85 18 161/74 (103) 100 07/31/17 20:00 Nasal Cannula 2.00 07/31/17 20:00 86 07/31/17 16:00 97.6 83 18 153/67 (95) 99 07/31/17 14:30 98.6 80 19 151/71 (97) 91 Laboratory Tests Test 07/30/17 13:20 07/31/17 09:58 White Blood Count 19.0 TH/MM3 8.5 TH/MM3 Red Blood Count 2.87 MIL/MM3 2.98 MIL/MM3 Hemoglobin 7.7 GM/DL 8.0 GM/DL Hematocrit 23.9 % 24.7 % Mean Corpuscular Volume 83.2 FL 83.0 FL Mean Corpuscular Hemoglobin 27.0 PG 26.9 PG Mean Corpuscular Hemoglobin Concent 32.5 % 32.4 % Red Cell Distribution Width 19.2 % 19.4 % Platelet Count 551 TH/MM3 521 TH/MM3 Mean Platelet Volume 9.8 FL 9.6 FL Neutrophils (%) (Auto) 90.0 % Lymphocytes (%) (Auto) 5.9 % Monocytes (%) (Auto) 1.5 % Eosinophils (%) (Auto) 2.0 % Basophils (%) (Auto) 0.6 % Neutrophils # (Auto) 7.6 TH/MM3 Lymphocytes # (Auto) 0.5 TH/MM3 Monocytes # (Auto) 0.1 TH/MM3 Eosinophils # (Auto) 0.2 TH/MM3 Basophils # (Auto) 0.1 TH/MM3 CBC Comment DIFF FINAL Differential Comment Laboratory Tests Test 07/30/17 13:20 Blood Urea Nitrogen 31 MG/DL Creatinine 5.47 MG/DL Random Glucose 119 MG/DL Calcium Level 8.2 MG/DL Sodium Level 138 MEQ/L Potassium Level 4.0 MEQ/L Chloride Level 100 MEQ/L Carbon Dioxide Level 24.0 MEQ/L Anion Gap 14 MEQ/L Estimat Glomerular Filtration Rate 9 ML/MIN PHYSICAL EXAM. GENERAL: Patient is in no acute distress. HEENT: EOMI, No icterus. NECK: Supple. LUNGS: Clear breath sounds. CARDIAC: Regular rate and rhythm ABDOMEN: Soft, non tender. EXTREMITIES: No CCE. Left foot has wound vac in place. SKIN: No rash. IMPRESSION Sepsis due to infection RLE. Foot/Ankle infection - C/S Citrobacter and alcaligenes (S) to Levaquin. Severe anemia, GIB - EGD ok ESRD on HD MWF RECOMMENDATION Stop Zosyn Stop Vanco Levaquin PO x 10 days 250mg QOD. Discussed with Dr Singer. Abhinavay to discharge from ID standpoint. Lauro Gillis MD Aug 01, 2017 12:04
[2017-08-01] MEDS ORDERED: LEVOFLOXACIN 250 MG TAB PO SCH (13:00)
--- NOTE | 2017-08-01 13:10 | HHI.NPPN ---
Subjective General Problems: Anemia Renal Failure: Chronic, End Stage Renal Disease Interval History Stated on PO Levaquin. Pending discharge home when wound vac is obtained. (Teresa Parekh) Review of Systems General Constitutional: Fatigue (Teresa Parekh) Objective Data Data 08/01/17 08/02/17 19:00 07:00 Intake Total 50 ml Balance 50 ml IV Total 50 ml Vital Signs Date Time Temp Pulse Resp B/P (MAP) Pulse Ox O2 Delivery O2 Flow Rate FiO2 08/01/17 08:00 Nasal Cannula 2.00 08/01/17 08:00 82 08/01/17 08:00 98.5 84 16 180/79 (112) 96 08/01/17 04:00 Nasal Cannula 2.00 08/01/17 04:00 98.5 84 16 147/66 (93) 99 08/01/17 04:00 83 08/01/17 00:00 Nasal Cannula 2.00 08/01/17 00:00 98.7 84 18 132/63 (86) 100 08/01/17 00:00 87 07/31/17 20:06 Nasal Cannula 2.00 07/31/17 20:00 99.2 85 18 161/74 (103) 100 07/31/17 20:00 Nasal Cannula 2.00 07/31/17 20:00 86 07/31/17 16:00 97.6 83 18 153/67 (95) 99 07/31/17 14:30 98.6 80 19 151/71 (97) 91 (Teresa Parekh) -: 07/31/17 0958 07/30/17 1320 Physical Exam General Appearance: Well Developed, No Acute Distress, Comfortable, Malnourished (Teresa Parekh) Neck Neck Exam: Neck Supple (Teresa Parekh) Pulmonary Resp Exam: Clear Bilaterally, Breath Sounds Equal (Teresa Parekh) Cardiology CV Exam: Regular, Normal Sinus Rhythm (Teresa Parekh) Gastrointestinal/Abdomen GI Exam: Soft, Non-Tender, Bowel Sounds Present, Non-Distended (Teresa Parekh) Musculoskeletal MS Exam: Normal Tone (Teresa Parekh) Integumentary Skin Exam: Warm, Dry Skin Remarks right lower extremity dressing in place wound vac (Teresa Parekh) Extremeties Extremities Exam: Trace Edema (Teresa Parekh) Neurologic Neuro Exam: Alert, Awake (Teresa Parekh) Psychiatric Psych Exam: Appropriate Responses (Teresa Parekh) Assessment/Plan Discussed Condition With: Patient Assessment Summary: Anemia of CKD, Hypertension, End Stage Renal Disease Problem List: (1) ESRD (end stage renal disease) on dialysis ICD Codes: N18.6 - End stage renal failure on dialysis; Z99.2 - Dependence on renal dialysis Status: Chronic Plan: Continue HD MWF. 2.5L UF yesterday We will follow her in HD clinic tomorrow if discharged. Avoid IVF, gadolinium High protein diet encouraged Stable from renal perspective (2) GI bleed ICD Codes: K92.2 - Gastrointestinal hemorrhage, unspecified Status: Acute Plan: GI following, may need capsule endoscopy as outpatient She is persistently anemic, epogen with HD (3) Anemia ICD Codes: D64.9 - Anemia, unspecified Status: Acute Plan: Transfuse if needed On Epogen with HD (4) Diabetes mellitus ICD Codes: E11.9 - Type 2 diabetes mellitus without complications Status: Chronic Plan: Insulin as needed Continue to monitor glucose (5) Ankle abscess ICD Codes: L02.419 - Cutaneous abscess of limb, unspecified Plan: ID following S/P I&D over the weekend Converted to PO Levaquin s/p angiogram wound vac to be continued after discharge. [facility] ordered. Plan p (Teresa Parekh) Plan patient was seen and examined. Agree with above assessment and plan. (Dao Greene MD) Problem Qualifiers (1) Diabetes mellitus: Teresa Parekh Aug 01, 2017 13:10 Dao Greene MD Aug 02, 2017 09:59
[2017-08-01] MEDS ORDERED: LEVA250T14 PO (13:22)
--- NOTE | 2017-08-01 14:06 | HHI.PR ---
Subjective Remarks Patient seen for diabetic foot infection. She is doing well insists on going home refuses SNF and states her daughter will be available 24 hours a day. Discussed with RN and case management. Wound VAC would not be delivered until tomorrow afternoon. Requested RN to contact podiatry if patient can be discharged without wound VAC today Objective Vitals Vital Signs Date Time Temp Pulse Resp B/P (MAP) Pulse Ox O2 Delivery O2 Flow Rate FiO2 08/01/17 08:00 Nasal Cannula 2.00 08/01/17 08:00 82 08/01/17 08:00 98.5 84 16 180/79 (112) 96 08/01/17 04:00 Nasal Cannula 2.00 08/01/17 04:00 98.5 84 16 147/66 (93) 99 08/01/17 04:00 83 08/01/17 00:00 Nasal Cannula 2.00 08/01/17 00:00 98.7 84 18 132/63 (86) 100 08/01/17 00:00 87 07/31/17 20:06 Nasal Cannula 2.00 07/31/17 20:00 99.2 85 18 161/74 (103) 100 07/31/17 20:00 Nasal Cannula 2.00 07/31/17 20:00 86 07/31/17 16:00 97.6 83 18 153/67 (95) 99 07/31/17 14:30 98.6 80 19 151/71 (97) 91 I/O 07/31/17 07/31/17 07/31/17 08/01/17 08/01/17 08/01/17 07:00 15:00 23:00 07:00 15:00 23:00 Intake Total 1440 ml 480 ml 50 ml Output Total 2500 ml Balance -2500 ml 1440 ml 480 ml 50 ml Intake Oral 1440 ml 480 ml IV Total 50 ml Hemodialysis 2500 ml # Voids 1 0 # Bowel Movements 1 0 Result Diagram: 07/31/17 0958 07/30/17 1320 Imaging Last Impressions Aorta w/Runoff CTA 07/29/17 0000 Signed Impressions: Service Date/Time: Saturday, July 29, 2017 12:52 - CONCLUSION: 1. No significant aortic stenosis. 2. No significant inflow stenosis on the right. There is moderate stenosis of the left common iliac artery origin. 3. SFA are heavily calcified bilaterally with tandem stenoses in the size, above. 4. Focal severe stenosis of the right popliteal artery at the level of the knee. 5. Heavily calcified small caliber limited runoff vessels. Please see CT angiography details above. 6. Small bilateral pleural effusions with airspace disease at the lung bases, likely atelectasis. 7. Moderate ascites with soft tissue anasarca. 8. Multiple low density lesions in the spleen may be flow related. Further evaluation may be performed with ultrasound as indicated. 9. Ulcer along the plantar aspect of the right foot. Flaco Santoro MD Tibia/Fibula X-Ray 07/26/17 0628 Signed Impressions: Service Date/Time: Wednesday, July 26, 2017 06:46 - CONCLUSION: Distal leg soft tissue swelling without an acute bony abnormality. Jacob Hall MD Lower Extremity CT 07/26/17 0000 Signed Impressions: Service Date/Time: Wednesday, July 26, 2017 13:29 - CONCLUSION: 1. Focal emphysema with spontaneously dense material is seen in the soft tissues just posterior to the ankle joint. 2. Focal emphysema with spontaneously dense material is seen in the soft tissues along the plantar surface of the foot in a linear fashion. The findings may be postsurgical. This needs to be correlated with any recent surgery.. aNin Castillo MD Foot X-Ray 07/26/17 0000 Signed Impressions: Service Date/Time: Wednesday, July 26, 2017 06:50 - CONCLUSION: Soft tissue changes without an acute bony abnormality. Jacob Hall MD Ankle X-Ray 07/26/17 0000 Signed Impressions: Service Date/Time: Wednesday, July 26, 2017 06:44 - CONCLUSION: Nonspecific soft tissue swelling of the right ankle region. No acute bony abnormality. Jacob Hall MD Foot MRI 07/25/17 0000 Signed Impressions: Service Date/Time: July 12:05 - CONCLUSION: 1. Tenosynovitis of the flexor hallucis longus tendon with fluid extending to the plantar surface. 2. Mild bone marrow edema involving the proximal phalanx of the great toe which may be reactive. 3. No discrete evidence of post [place] line is. Eder Nieto MD Chest X-Ray 07/23/17 0000 Signed Impressions: Service Date/Time: Sunday, July 23, 2017 03:30 - CONCLUSION: Stable appearance of cardiomegaly and central vascular engorgement. Praneeth Barrientos MD Objective Remarks GENERAL: 72 AA Female well-developed and well-nourished in no distress SKIN: Warm and dry. CARDIOVASCULAR: Regular rate and rhythm. S1, S2. No S4. Without murmur RESPIRATORY: Clear to auscultation. Breath sounds equal bilaterally. GASTROINTESTINAL: Abdomen soft, non-tender, nondistended. MUSCULOSKELETAL: Right foot with VAC dressing NEUROLOGICAL: Awake and alert. No obvious cranial nerve deficits. Motor grossly within normal limits. 5/5 muscle strength in the arms and legs. Normal speech. Procedures Foot abscess irrigation and debridement, EGD and colonoscopy A/P Problem List: (1) Foot abscess, right ICD Code: L02.611 - Cutaneous abscess of right foot Assessment and Plan Diabetic foot infection/Right foot and ankle abscess Status post irrigation debridement by podiatry. Continue wound VAC. Dc IV Zosyn and vancomycin wound culture grew Citrobacter and Alcaligenes switch to by mouth Levaquin per infectious disease. Podiatry has cleared patient for discharge. Vascular surgery has recommended medical management no surgical intervention and start antiplatelets if okay with GI. GI cleared patient to restart aspirin GI bleed. EGD 07/23 with Schatzki ring mild to moderate and moderate hiatal hernia. No active bleeding. 07/26 - colonoscopy -follow-up polyp snared had ICV. Diverticulosis. AVM's in cecum and ascending colon. Continue PPI and follow up pathology unremarkable. Outpatient Capsule endoscopy recommended Acute blood loss anemia and of chronic kidney disease. Transfused 4 units PRBCs. On Epogen 10,000 units with hemodialysis. Repeat CBC showed slightly improved hemoglobin 8. Diabetes mellitus. Holding insulin glargine 10 units at night. Currently on Aspart sliding scale insulin with Accu-Cheks every before meals and at bedtime Depression. Stable continue mirtazapine 15 mg at night and hydroxyzine 25 mg at night for depression/anxiety Hypertension. Was off antihypertensives. Hydralazine as needed. BP elevated restart Norvasc. Continue to monitor Hypothyroidism. Continue levothyroxine 75 mics grams daily for hypothyroidism End-stage renal disease on hemodialysis Saturday/Saturday/Saturday with Dr. Buchanan DVT - SCD/holding pharmacological prophylaxis in light of GI bleeding Discharge Planning Discharge when wound VAC arranged Ronald Singer MD Aug 01, 2017 14:06
[2017-08-01] MEDS: ASPIRIN EC 81 MG TABEC PO SCH (14:16)
[2017-08-01] MEDS: hydrOXYzine HCL 25 MG TAB PO SCH (20:47)
[2017-08-01] MEDS: MIRTAZAPINE 15 MG TAB PO SCH (20:47)
[2017-08-02] VITALS: PULSE 75
[2017-08-02 00:19] VITALS: BP 149/86; PULSE 74; RESP 18; O2SAT 92
[2017-08-02 04:00] VITALS: BP 150/67; PULSE 67; PULSE 71; RESP 18; O2SAT 100
[2017-08-02] MEDS: CHLORHEXIDINE GLUCONATE 2 % 1 PACK (2 CLOTHS) TOP SCH (04:00)
[2017-08-02] MEDS: LEVOTHYROXINE SODIUM 75 MCG TAB PO SCH (05:48)
[2017-08-02] MEDS: SODIUM CHLORIDE 0.9% FLUSH 10 ML FLUSH IV FLUSH SCH (07:28)
[2017-08-02] MEDS: INSULIN ASPART SUPPLEMENTAL SCALE SQ SCH ×2 (08:00→12:00)
[2017-08-02 08:07] VITALS: BP 144/75; PULSE 74; RESP 21; TEMP 97.3; O2SAT 95
[2017-08-02] MEDS: COLLAGENASE OINT 30 GM TUBE TOPICAL SCH (09:00)
--- NOTE | 2017-08-02 09:12 | HHI.NPPN ---
Subjective General Problems: Anemia Renal Failure: Chronic, End Stage Renal Disease Interval History Seen during dialysis. Potential discharge today. No new concerns. (Teresa Parekh) Review of Systems General Constitutional: Fatigue (Teresa Parekh) Objective Data Data Vital Signs Date Time Temp Pulse Resp B/P (MAP) Pulse Ox O2 Delivery O2 Flow Rate FiO2 08/02/17 08:07 97.3 74 21 144/75 (98) 95 08/02/17 04:00 71 18 150/67 (94) 100 08/02/17 04:00 67 08/02/17 04:00 Nasal Cannula 2.00 08/02/17 00:19 74 18 149/86 (107) 92 08/02/17 00:00 75 08/02/17 00:00 Nasal Cannula 2.00 08/01/17 21:13 99.1 85 20 132/60 (84) 96 08/01/17 20:00 Nasal Cannula 2.00 08/01/17 20:00 86 08/01/17 18:52 2.00 08/01/17 16:00 98.4 89 16 151/72 (98) 96 08/01/17 16:00 80 08/01/17 12:00 80 08/01/17 12:00 98.2 83 16 173/73 (106) 96 (Teersa Parekh) -: 07/31/17 0958 07/30/17 1320 Imaging Last Impressions Aorta w/Runoff CTA 07/29/17 0000 Signed Impressions: Service Date/Time: Saturday, July 29, 2017 12:52 - CONCLUSION: 1. No significant aortic stenosis. 2. No significant inflow stenosis on the right. There is moderate stenosis of the left common iliac artery origin. 3. SFA are heavily calcified bilaterally with tandem stenoses in the size, above. 4. Focal severe stenosis of the right popliteal artery at the level of the knee. 5. Heavily calcified small caliber limited runoff vessels. Please see CT angiography details above. 6. Small bilateral pleural effusions with airspace disease at the lung bases, likely atelectasis. 7. Moderate ascites with soft tissue anasarca. 8. Multiple low density lesions in the spleen may be flow related. Further evaluation may be performed with ultrasound as indicated. 9. Ulcer along the plantar aspect of the right foot. Flaco Santoro MD Tibia/Fibula X-Ray 07/26/17 0628 Signed Impressions: Service Date/Time: Wednesday, July 26, 2017 06:46 - CONCLUSION: Distal leg soft tissue swelling without an acute bony abnormality. Jacob Hall MD Lower Extremity CT 07/26/17 0000 Signed Impressions: Service Date/Time: Wednesday, July 26, 2017 13:29 - CONCLUSION: 1. Focal emphysema with spontaneously dense material is seen in the soft tissues just posterior to the ankle joint. 2. Focal emphysema with spontaneously dense material is seen in the soft tissues along the plantar surface of the foot in a linear fashion. The findings may be postsurgical. This needs to be correlated with any recent surgery.. Nain Castillo MD Foot X-Ray 07/26/17 0000 Signed Impressions: Service Date/Time: Wednesday, July 26, 2017 06:50 - CONCLUSION: Soft tissue changes without an acute bony abnormality. Jacob Hall MD Ankle X-Ray 07/26/17 0000 Signed Impressions: Service Date/Time: Wednesday, July 26, 2017 06:44 - CONCLUSION: Nonspecific soft tissue swelling of the right ankle region. No acute bony abnormality. Jacob Hall MD Foot MRI 07/25/17 0000 Signed Impressions: Service Date/Time: July 12:05 - CONCLUSION: 1. Tenosynovitis of the flexor hallucis longus tendon with fluid extending to the plantar surface. 2. Mild bone marrow edema involving the proximal phalanx of the great toe which may be reactive. 3. No discrete evidence of post [place] line is. Eder Nieto MD Chest X-Ray 07/23/17 0000 Signed Impressions: Service Date/Time: Sunday, July 23, 2017 03:30 - CONCLUSION: Stable appearance of cardiomegaly and central vascular engorgement. Praneeth Barrientos MD (Teresa Parekh) Physical Exam General Appearance: Well Developed, No Acute Distress, Comfortable, Malnourished (Teresa Parekh) Neck Neck Exam: Neck Supple (Teresa Parekh) Pulmonary Resp Exam: Clear Bilaterally, Breath Sounds Equal (Teresa Parekh) Cardiology CV Exam: Regular, Normal Sinus Rhythm (Teresa Parekh) Gastrointestinal/Abdomen GI Exam: Soft, Non-Tender, Bowel Sounds Present, Non-Distended (Teresa Parekh) Musculoskeletal MS Exam: Normal Tone (Teresa Parekh) Integumentary Skin Exam: Warm, Dry Skin Remarks right lower extremity dressing in place wound vac (Teresa Parekh) Extremeties Extremities Exam: Trace Edema (Teresa Parekh) Neurologic Neuro Exam: Alert, Awake (Teresa Parekh) Psychiatric Psych Exam: Appropriate Responses (Teresa Parekh) Assessment/Plan Discussed Condition With: Patient Assessment Summary: Anemia of CKD, Hypertension, End Stage Renal Disease Problem List: (1) ESRD (end stage renal disease) on dialysis ICD Codes: N18.6 - End stage renal failure on dialysis; Z99.2 - Dependence on renal dialysis Status: Chronic Plan: Continue HD MWF. Seen during diayssi today on a 2K, 350 BFR, goal of 2.8 L Her next outpatient HD will be on Saturday given the holiday. Case Management to assist with confirming transportation. Avoid IVF, gadolinium High protein diet encouraged Stable from renal perspective (2) GI bleed ICD Codes: K92.2 - Gastrointestinal hemorrhage, unspecified Status: Acute Plan: GI following, Will need capsule endoscopy as outpatient She is persistently anemic, epogen with HD (3) Anemia ICD Codes: D64.9 - Anemia, unspecified Status: Acute Plan: Transfuse if needed On Epogen with HD (4) Diabetes mellitus ICD Codes: E11.9 - Type 2 diabetes mellitus without complications Status: Chronic Plan: Insulin as needed Continue to monitor glucose (5) Ankle abscess ICD Codes: L02.419 - Cutaneous abscess of limb, unspecified Plan: ID following S/P I&D over the weekend Converted to PO Levaquin s/p angiogram wound vac to be continued at discharge. C ordered. (Teresa Parekh) Plan patient was seen and examined. She can be discharged from renal standpoint. Agree with above assessment and plan. (Dao Greene MD) Problem Qualifiers (1) Diabetes mellitus: Teresa Parekh Aug 02, 2017 09:12 Dao Greene MD Aug 02, 2017 15:42
[2017-08-02] MEDS: EPOETIN ALFA 10,000 UNITS/ML VIAL IV PUSH PRN (11:15)
[2017-08-02] MEDS: GELATIN 12 MM/7 MM FOAM TOP PRN (11:15)
[2017-08-02] MEDS: PANTOPRAZOLE SOD 40 MG DELAYED RELEASE TAB PO SCH (12:50)
[2017-08-02] MEDS: ASPIRIN EC 81 MG TABEC PO SCH (12:50)
[2017-08-02] MEDS: DOCUSATE SODIUM 50 MG/SENNA 8.6 MG TAB PO SCH (12:50)
[2017-08-02] MEDS: POLYETHYLENE GLYCOL 17 GM PKG PO SCH (12:50)
[2017-08-02] MEDS: VITAMIN B CMPLX/VITC/FOLIC AC CAP PO SCH (12:51)
--- NOTE | 2017-08-02 15:45 | HHI.PR ---
Subjective Remarks F/u DFI. Doing ok dw RN and CM. Discharge held because wound VAC has not arrived Objective Vitals Vital Signs Date Time Temp Pulse Resp B/P (MAP) Pulse Ox O2 Delivery O2 Flow Rate FiO2 08/02/17 13:17 Nasal Cannula 2.00 21 08/02/17 08:07 97.3 74 21 144/75 (98) 95 08/02/17 04:00 71 18 150/67 (94) 100 08/02/17 04:00 67 08/02/17 04:00 Nasal Cannula 2.00 08/02/17 00:19 74 18 149/86 (107) 92 08/02/17 00:00 75 08/02/17 00:00 Nasal Cannula 2.00 08/01/17 21:13 99.1 85 20 132/60 (84) 96 08/01/17 20:00 Nasal Cannula 2.00 08/01/17 20:00 86 08/01/17 18:52 2.00 08/01/17 16:00 98.4 89 16 151/72 (98) 96 08/01/17 16:00 80 I/O 08/01/17 08/01/17 08/01/17 08/02/17 08/02/17 08/02/17 07:00 15:00 23:00 07:00 15:00 23:00 Intake Total 480 ml 50 ml 480 ml 360 ml Output Total 2500 ml Balance 480 ml 50 ml 480 ml 360 ml -2500 ml Intake Oral 480 ml 480 ml 360 ml IV Total 50 ml Hemodialysis 2500 ml # Voids 0 0 # Bowel Movements 0 2 2 Result Diagram: 07/31/17 0958 07/30/17 1320 Imaging Last Impressions Aorta w/Runoff CTA 07/29/17 0000 Signed Impressions: Service Date/Time: Saturday, July 29, 2017 12:52 - CONCLUSION: 1. No significant aortic stenosis. 2. No significant inflow stenosis on the right. There is moderate stenosis of the left common iliac artery origin. 3. SFA are heavily calcified bilaterally with tandem stenoses in the size, above. 4. Focal severe stenosis of the right popliteal artery at the level of the knee. 5. Heavily calcified small caliber limited runoff vessels. Please see CT angiography details above. 6. Small bilateral pleural effusions with airspace disease at the lung bases, likely atelectasis. 7. Moderate ascites with soft tissue anasarca. 8. Multiple low density lesions in the spleen may be flow related. Further evaluation may be performed with ultrasound as indicated. 9. Ulcer along the plantar aspect of the right foot. Flaco Santoro MD Tibia/Fibula X-Ray 07/26/17 0628 Signed Impressions: Service Date/Time: Wednesday, July 26, 2017 06:46 - CONCLUSION: Distal leg soft tissue swelling without an acute bony abnormality. Jacob Hall MD Lower Extremity CT 07/26/17 0000 Signed Impressions: Service Date/Time: Wednesday, July 26, 2017 13:29 - CONCLUSION: 1. Focal emphysema with spontaneously dense material is seen in the soft tissues just posterior to the ankle joint. 2. Focal emphysema with spontaneously dense material is seen in the soft tissues along the plantar surface of the foot in a linear fashion. The findings may be postsurgical. This needs to be correlated with any recent surgery.. Nain Castillo MD Foot X-Ray 07/26/17 0000 Signed Impressions: Service Date/Time: Wednesday, July 26, 2017 06:50 - CONCLUSION: Soft tissue changes without an acute bony abnormality. Jacob Hall MD Ankle X-Ray 07/26/17 0000 Signed Impressions: Service Date/Time: Wednesday, July 26, 2017 06:44 - CONCLUSION: Nonspecific soft tissue swelling of the right ankle region. No acute bony abnormality. Jacob Hall MD Foot MRI 07/25/17 0000 Signed Impressions: Service Date/Time: July 12:05 - CONCLUSION: 1. Tenosynovitis of the flexor hallucis longus tendon with fluid extending to the plantar surface. 2. Mild bone marrow edema involving the proximal phalanx of the great toe which may be reactive. 3. No discrete evidence of post [place] line is. Eder Nieto MD Chest X-Ray 07/23/17 0000 Signed Impressions: Service Date/Time: Sunday, July 23, 2017 03:30 - CONCLUSION: Stable appearance of cardiomegaly and central vascular engorgement. Praneeth Barrientos MD Objective Remarks GENERAL: 72 AA Female well-developed and well-nourished in no distress SKIN: Warm and dry. CARDIOVASCULAR: Regular rate and rhythm. S1, S2. No S4. Without murmur RESPIRATORY: Clear to auscultation. Breath sounds equal bilaterally. GASTROINTESTINAL: Abdomen soft, non-tender, nondistended. MUSCULOSKELETAL: Right foot with VAC dressing NEUROLOGICAL: Awake and alert. No obvious cranial nerve deficits. Motor grossly within normal limits. 5/5 muscle strength in the arms and legs. Normal speech. Procedures Foot abscess irrigation and debridement, EGD and colonoscopy A/P Problem List: (1) Foot abscess, right ICD Code: L02.611 - Cutaneous abscess of right foot Assessment and Plan Diabetic foot infection/Right foot and ankle abscess Status post irrigation debridement by podiatry. Continue wound VAC. Dc IV Zosyn and vancomycin wound culture grew Citrobacter and Alcaligenes switch to by mouth Levaquin per infectious disease. Podiatry has cleared patient for discharge. Vascular surgery has recommended medical management no surgical intervention and start antiplatelets if okay with GI. GI cleared patient to restart aspirin GI bleed. EGD 07/23 with Schatzki ring mild to moderate and moderate hiatal hernia. No active bleeding. 07/26 - colonoscopy -follow-up polyp snared had ICV. Diverticulosis. AVM's in cecum and ascending colon. Continue PPI and follow up pathology unremarkable. Outpatient Capsule endoscopy recommended Acute blood loss anemia and of chronic kidney disease. Transfused 4 units PRBCs. On Epogen 10,000 units with hemodialysis. Repeat CBC showed slightly improved hemoglobin 8. Diabetes mellitus. Hyperglycemic restart insulin glargine 10 units at night. Currently on Aspart sliding scale insulin with Accu-Cheks every before meals and at bedtime Depression. Stable continue mirtazapine 15 mg at night and hydroxyzine 25 mg at night for depression/anxiety Hypertension. Was off antihypertensives. Hydralazine as needed. BP elevated restart Norvasc. Continue to monitor Hypothyroidism. Continue levothyroxine 75 mics grams daily for hypothyroidism End-stage renal disease on hemodialysis Saturday/Saturday/Saturday with Dr. Buchanan DVT - SCD/holding pharmacological prophylaxis in light of GI bleeding Discharge Planning Discharge when wound VAC arranged Ronald Singer MD Aug 02, 2017 15:45
[2017-08-02 16:07] VITALS: BP 141/66; PULSE 82; RESP 20; TEMP 98.1; O2SAT 94
--- NOTE | 2017-08-02 16:54 | HHI.DS ---
Discharge Summary Admission Date Jul 22, 2017 at 16:08 Discharge Date: Aug 02, 2017 Admitting Diagnosis GI bleed, hyperkalemia (1) Foot abscess, right ICD Code: L02.611 - Cutaneous abscess of right foot Diagnosis: Principal Procedures Foot abscess irrigation and debridement, EGD and colonoscopy Brief History - From Admission History of Present Illness 72-year-old female with a medical history significant for end- stage renal disease on hemodialysis, hypertension who was brought to the ER with nausea vomiting and black tarry stools which have been going on for about a week. She is usually dialyzed on Saturday and Fridays and follows with Dr. Buchanan. She missed her hemodialysis session today due to significant weakness. Patient was brought to the ER by EMS and was found to have a hemoglobin of 4.9 as well as hyperkalemia with potassium 6.7. She was not hypotensive. She complained of generalized weakness otherwise some shortness of breath. Denied any chest pain. Denied any fever or chills. She was given medications for hyperkalemia by ER physician and 3 units PRBCs were ordered for her anemia. Patient was accepted for admission by critical care medicine service. Nephrology was also contacted and Dr. Castanon is arranging for hemodialysis. When I evaluated the patient in the ER she was laying in the ER stretcher complaining of feeling thirsty. She did not wish to keep her O2 nasal cannula on. She was maintaining her O2 sats and blood pressure. History was obtained by reviewing records, discussion with patient and her family members as well as ER physician and nursing staff. ROS - General Review of Systems Constitutional: COMPLAINS OF: Fatigue Gastrointestinal: COMPLAINS OF: Abdominal pain, Nausea, Vomiting Musculoskeletal: COMPLAINS OF: Joint pain, Muscle aches, Stiffness, Joint Swelling Neurologic: COMPLAINS OF: Abnormal gait PFSH Past Family Social History 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 Past Medical History Diabetes Hypertension Anemia GERD Hypothyroidism Secondary hyperparathyroidism Osteoarthritis Past Surgical History History of toe amputation AV fistula left forearm Partial hysterectomy Reported Medications Reported Meds & Active Scripts Active Nephro-Jammie Rx (Vitamin B Cmplx/Vit C/Folic AC) 1 Tab 1 Tab PO DAILY Remeron (Mirtazapine) 15 Mg Tab 15 Mg PO HS Aspir-81 (Aspirin) 81 Mg Tabdr 81 Mg PO DAILY Levothyroxine (Levothyroxine Sodium) 75 Mcg Tab 75 Mcg PO DAILY Lantus Solostar Pen Inj (Insulin Glargine) 300 Unit/3 Ml Pen 10 Units SQ HS Amlodipine (Amlodipine Besylate) 10 Mg Tab 10 Mg PO DAILY Lisinopril 20 Mg Tab 20 Mg PO DIRECTED Proair Hfa 8.5 GM Inh (Albuterol Sulfate) 90 Mcg/Act Aer 2 Puff INH Q4-6H PRN 108 mcg/actuation Reported Hydroxyzine HCl 25 Mg Tab 25 Mg PO HS Active Ordered Medications Current Medications Medications (Trade) Dose Ordered Sig/Rita Route Start Time Stop Time Status Last Admin (Kayexalate Liq) 15 gm QID PO 07/22/17 18:00 07/23/17 13:01 (NS Flush) 2 ml UNSCH PRN IV FLUSH 07/22/17 16:00 (NS Flush) 2 ml BID IV FLUSH 07/22/17 21:00 (Tylenol) 650 mg Q6H PRN PO 07/22/17 16:00 (Zofran Inj) 4 mg Q6H PRN IV PUSH 07/22/17 16:00 (Duoneb Neb) 1 ampule Q2HR NEB PRN INH 07/22/17 16:00 Miscellaneous Information 1 Q361D XX 07/22/17 16:00 (Chlorhexidine 2% Cloth) 3 pack Taper DAILY@04 TOP 07/23/17 04:00 07/19/18 03:59 (Chlorhexidine 2% Cloth) 3 pack UNSCH PRN TOP 07/22/17 16:00 (Velma-Colace) 1 tab BID PO 07/22/17 21:00 (Milk Of Magnesia Liq) 30 ml Q12H PRN PO 07/22/17 16:00 (Senokot) 17.2 mg Q12H PRN PO 07/22/17 16:00 (Dulcolax Supp) 10 mg DAILY PRN RECTAL 07/22/17 16:00 (Lactulose Liq) 30 ml DAILY PRN PO 07/22/17 16:00 Pantoprazole Sodium 80 mg/ Sodium Chloride 100 ml @ 10 mls/hr Q10H IV 07/22/17 16:06 Pantoprazole Sodium 80 mg/ Sodium Chloride 35 ml @ 420 mls/hr Q5M ONCE IV 07/22/17 17:05 07/22/17 17:09 UNV Pantoprazole Sodium 80 mg/ Sodium Chloride 100 ml @ 10 mls/hr Q10H IV 07/22/17 18:05 UNV (Sodium Bicarbonate 8.4% Inj) 50 meq STAT ONCE IV 07/22/17 16:15 07/22/17 16:16 UNV Family History Noncontributory Social History Denies smoking or alcohol CBC/BMP: 07/31/17 0958 07/30/17 1320 Significant Findings Laboratory Tests Test 07/31/17 07:44 07/31/17 09:58 Red Blood Count 2.98 MIL/MM3 (4.00-5.30) Hemoglobin 8.0 GM/DL (11.6-15.3) Hematocrit 24.7 % (35.0-46.0) Mean Corpuscular Hemoglobin 26.9 PG (27.0-34.0) Red Cell Distribution Width 19.4 % (11.6-17.2) Platelet Count 521 TH/MM3 (150-450) Neutrophils (%) (Auto) 90.0 % (16.0-70.0) Lymphocytes (%) (Auto) 5.9 % (9.0-44.0) Lymphocytes # (Auto) 0.5 TH/MM3 (1.0-4.8) Imaging Last Impressions Aorta w/Runoff CTA 07/29/17 0000 Signed Impressions: Service Date/Time: Saturday, July 29, 2017 12:52 - CONCLUSION: 1. No significant aortic stenosis. 2. No significant inflow stenosis on the right. There is moderate stenosis of the left common iliac artery origin. 3. SFA are heavily calcified bilaterally with tandem stenoses in the size, above. 4. Focal severe stenosis of the right popliteal artery at the level of the knee. 5. Heavily calcified small caliber limited runoff vessels. Please see CT angiography details above. 6. Small bilateral pleural effusions with airspace disease at the lung bases, likely atelectasis. 7. Moderate ascites with soft tissue anasarca. 8. Multiple low density lesions in the spleen may be flow related. Further evaluation may be performed with ultrasound as indicated. 9. Ulcer along the plantar aspect of the right foot. Flaco Santoor MD Tibia/Fibula X-Ray 07/26/17 0628 Signed Impressions: Service Date/Time: Wednesday, July 26, 2017 06:46 - CONCLUSION: Distal leg soft tissue swelling without an acute bony abnormality. Jacob Hall MD Lower Extremity CT 07/26/17 0000 Signed Impressions: Service Date/Time: Wednesday, July 26, 2017 13:29 - CONCLUSION: 1. Focal emphysema with spontaneously dense material is seen in the soft tissues just posterior to the ankle joint. 2. Focal emphysema with spontaneously dense material is seen in the soft tissues along the plantar surface of the foot in a linear fashion. The findings may be postsurgical. This needs to be correlated with any recent surgery.. Nain Castillo MD Foot X-Ray 07/26/17 0000 Signed Impressions: Service Date/Time: Wednesday, July 26, 2017 06:50 - CONCLUSION: Soft tissue changes without an acute bony abnormality. Jacob Hall MD Ankle X-Ray 07/26/17 0000 Signed Impressions: Service Date/Time: Wednesday, July 26, 2017 06:44 - CONCLUSION: Nonspecific soft tissue swelling of the right ankle region. No acute bony abnormality. Jacob Hall MD Foot MRI 07/25/17 0000 Signed Impressions: Service Date/Time: July 12:05 - CONCLUSION: 1. Tenosynovitis of the flexor hallucis longus tendon with fluid extending to the plantar surface. 2. Mild bone marrow edema involving the proximal phalanx of the great toe which may be reactive. 3. No discrete evidence of post MA line is. Eder Nieto MD Chest X-Ray 07/23/17 0000 Signed Impressions: Service Date/Time: Sunday, July 23, 2017 03:30 - CONCLUSION: Stable appearance of cardiomegaly and central vascular engorgement. Praneeth Barrientos MD PE at Discharge GENERAL: 72 AA Female well-developed and well-nourished in no distress SKIN: Warm and dry. CARDIOVASCULAR: Regular rate and rhythm. S1, S2. No S4. Without murmur RESPIRATORY: Clear to auscultation. Breath sounds equal bilaterally. GASTROINTESTINAL: Abdomen soft, non-tender, nondistended. MUSCULOSKELETAL: Right foot with VAC dressing NEUROLOGICAL: Awake and alert. No obvious cranial nerve deficits. Motor grossly within normal limits. 5/5 muscle strength in the arms and legs. Normal speech. Hospital Course Diabetic foot infection/Right foot and ankle abscess Status post irrigation debridement by podiatry. Continue wound VAC. Dc IV Zosyn and vancomycin wound culture grew Citrobacter and Alcaligenes switch to by mouth Levaquin per infectious disease. Podiatry has cleared patient for discharge. Vascular surgery has recommended medical management no surgical intervention and start antiplatelets if okay with GI. GI cleared patient to restart aspirin GI bleed. EGD 07/23 with Schatzki ring mild to moderate and moderate hiatal hernia. No active bleeding. 07/26 - colonoscopy -follow-up polyp snared had ICV. Diverticulosis. AVM's in cecum and ascending colon. Continue PPI and follow up pathology unremarkable. Outpatient Capsule endoscopy recommended Acute blood loss anemia and of chronic kidney disease. Transfused 4 units PRBCs. On Epogen 10,000 units with hemodialysis. Repeat CBC showed slightly improved hemoglobin 8. Diabetes mellitus. Hyperglycemic restart insulin glargine 10 units at night. Currently on Aspart sliding scale insulin with Accu-Cheks every before meals and at bedtime Depression. Stable continue mirtazapine 15 mg at night and hydroxyzine 25 mg at night for depression/anxiety Hypertension. Was off antihypertensives. Hydralazine as needed. BP elevated restart Norvasc. Continue to monitor Hypothyroidism. Continue levothyroxine 75 mics grams daily for hypothyroidism End-stage renal disease on hemodialysis Saturday/Saturday/Saturday with Dr. Buhcanan DVT - SCD/holding pharmacological prophylaxis in light of GI bleeding Pt Condition on Discharge: Stable Discharge Disposition: Disch w/ Home Health Serv Discharge Time: > 30 minutes Discharge Instructions DIET: Follow Instructions for: Heart Healthy Diet, Diabetic Diet, Renal Failure Diet Speech Therapy-Diet Recommends: Mechanical Soft Activities you can perform: Regular-No Restrictions Activities to Avoid: Driving Follow up Referrals: Appointment for Follow Up @ [facility] Appointment for Follow Up @ [facility] Appointment for Follow Up @ [facility] @ [facility] - 1 Week PCP Follow-up - 1 Week PCP Follow-up @ [facility] - 1 Week Vascular Surgery - 1 Week Wound Care Clinic - 1 Week New Medications: Walker with Front Wheels (Walker with Front Wheels) 1 Mis Mis EA .ROUTE DIRECTED, #1 0 Refills Levofloxacin (Levaquin) 250 Mg Tablet 250 MG PO Q48H for Infection, #5 TAB Pantoprazole (Pantoprazole) 40 Mg Tab 40 MG PO DAILY for Manage Heartburn, #30 TAB Continued Medications: Albuterol 8.5 GM Inh (Proair Hfa 8.5 GM Inh) 90 Mcg/Act Aer 2 PUFF INH Q4-6H PRN for SHORTNESS OF BREATH, #1 INHALER 0 Refills 108 mcg/actuation Amlodipine (Amlodipine) 10 Mg Tab 10 MG PO DAILY for Blood Pressure Management, #30 TAB [address] (Aspir-81) 81 Mg Tabdr 81 MG PO DAILY, #90 3 Refills Hydroxyzine HCl (Hydroxyzine HCl) 25 Mg Tab 25 MG PO HS, #30 TAB 0 Refills Insulin Glargine Inj (Lantus Solostar Pen Inj) 300 Unit/3 Ml Pen 10 UNITS SQ HS for Blood Sugar Management, #1 PEN 0 Refills Levothyroxine (Levothyroxine) 75 Mcg Tab 75 MCG PO DAILY for Thyroid, #30 TAB 0 Refills Mirtazapine (Remeron) 15 Mg Tab 15 MG PO HS for Depression Control, #30 TAB 5 Refills Vitamin B Cmplx/Vit C/Folic AC (Nephro-Jammie Rx) 1 Tab 1 TAB PO DAILY, #30 TAB 2 Refills Discontinued Medications: Lisinopril (Lisinopril) 20 Mg Tab 20 MG PO DIRECTED, #30 TAB 0 Refills Ronald Singer MD Aug 02, 2017 16:54
[2017-08-02 17:44] VITALS: O2SAT 94
== END 2017-08-02 18:12 | disposition home health service (06) | DRG 853 ==
LOC: NEPC 12:44 → NEDA 16:08 → HIMN 20:10 → N04B 07-28 11:45
PROVIDERS: ADMIT Internal Medicine; ATTEND Internal Medicine
PROC: 30233N1 Transfusion of Nonautologous Red Blood Cells into Peripheral Vein, Percutaneous Approach (ICD-10-PCS; 2017-07-22)
PROC: 5A1D70Z Performance of Urinary Filtration, Intermittent, Less than 6 Hours Per Day (ICD-10-PCS; 2017-07-22)
PROC: 0DJ08ZZ Inspection of Upper Intestinal Tract, Via Natural or Artificial Opening Endoscopic (ICD-10-PCS; 2017-07-23)
PROC: 0L9S0ZZ Drainage of Right Ankle Tendon, Open Approach (ICD-10-PCS; 2017-07-25)
PROC: 0JDQ0ZZ Extraction of Right Foot Subcutaneous Tissue and Fascia, Open Approach (ICD-10-PCS; principal; 2017-07-25 20:39)
PROC: 0DBC8ZX Excision of Ileocecal Valve, Via Natural or Artificial Opening Endoscopic, Diagnostic (ICD-10-PCS; 2017-07-26)
PROC: 0JDQ0ZZ Extraction of Right Foot Subcutaneous Tissue and Fascia, Open Approach (ICD-10-PCS; 2017-07-28)
DX: A41.9 Sepsis, unspecified organism (principal); N18.6 End stage renal disease; K92.0 Hematemesis; I12.0 Hypertensive chronic kidney disease with stage 5 chronic kidney disease or end stage renal disease; K57.91 Diverticulosis of intestine, part unspecified, without perforation or abscess with bleeding; I95.9 Hypotension, unspecified; E11.22 Type 2 diabetes mellitus with diabetic chronic kidney disease; D62 Acute posthemorrhagic anemia; N25.81 Secondary hyperparathyroidism of renal origin; K92.1 Melena; L97.319 Non-pressure chronic ulcer of right ankle with unspecified severity; M86.9 Osteomyelitis, unspecified; E11.65 Type 2 diabetes mellitus with hyperglycemia; E87.5 Hyperkalemia; F17.210 Nicotine dependence, cigarettes, uncomplicated; Z99.2 Dependence on renal dialysis; K21.9 Gastro-esophageal reflux disease without esophagitis; E03.9 Hypothyroidism, unspecified; D63.1 Anemia in chronic kidney disease; K22.2 Esophageal obstruction; K44.9 Diaphragmatic hernia without obstruction or gangrene; E11.622 Type 2 diabetes mellitus with other skin ulcer; M65.071 Abscess of tendon sheath, right ankle and foot; E11.51 Type 2 diabetes mellitus with diabetic peripheral angiopathy without gangrene; E11.621 Type 2 diabetes mellitus with foot ulcer; E11.628 Type 2 diabetes mellitus with other skin complications; E11.649 Type 2 diabetes mellitus with hypoglycemia without coma; E11.69 Type 2 diabetes mellitus with other specified complication; L97.519 Non-pressure chronic ulcer of other part of right foot with unspecified severity; F32.9 Major depressive disorder, single episode, unspecified; F41.9 Anxiety disorder, unspecified; K55.20 Angiodysplasia of colon without hemorrhage; K63.5 Polyp of colon; K57.30 Diverticulosis of large intestine without perforation or abscess without bleeding; B96.89 Other specified bacterial agents as the cause of diseases classified elsewhere; M19.90 Unspecified osteoarthritis, unspecified site; M65.9 Synovitis and tenosynovitis, unspecified; Z79.82 Long term (current) use of aspirin; Z89.412 Acquired absence of left great toe; Z79.4 Long term (current) use of insulin
CPT/HCPCS: 36430; 71010; 73590; 73610; 73620; 73630; 73700; 73718; 75635; 76937; 80048; 80053; 80202; 82948; 83690; 83735; 84100; 84484; 85007; 85014; 85018; 85025; 85027; 85384; 85610; 85730; 86403; 86850; 86900; 86901; 86920; 87015; 87040; 87070; 87077; 87102; 87116; 87186; 87205; 87206; 87641; 88305; 90935; 93005; 94150; 94664; 96365; 96374; 96375; 99291; C9113; J0131; J0330; J0610; J0690; J1815; J2270; J2370; J2405; J2543; J3010; J3370; J3430; J7030; J7040; J7042; J7050; J7611; P9016; Q4081; Q9967

== ENCOUNTER → 2017-09-03 | Outpatient (CLI) | payer MEDICARE, OTHER ==
[~2017-09-03] MED LIST changes: +BIOM30MI; +BLOOD GLUCOSE M1 KIT; +BLOOD GLUCOSE T1 TES; +GLUCTES12; +INSU1MIS15; +LANCETS1 MI1; +LEVA250T14 PO; -LISI-515 PO; +PANT40TA3 PO; +WALKER WHEELS/F1 MIS
[2017-09-03 14:01] LABS: HEMATOCRIT 23.9 % (35.0-46.0); MEAN CELL VOLUME 81.8 FL (80.0-100.0); MEAN CORPUSCULAR HEMOGLOBIN 27.3 PG (27.0-34.0); MEAN CORPUSCULAR HGB CONC 33.3 % (32.0-36.0); MEAN PLATELET VOLUME 8.5 FL (7.0-11.0); PLATELET COUNT 250 TH/MM3 (150-450); RED BLOOD COUNT 2.92 MIL/MM3 (4.00-5.30); RED CELL DISTRIBUTION WIDTH 20.4 % (11.6-17.2); WHITE BLOOD COUNT 7.7 TH/MM3 (4.0-11.0)
[2017-09-03 14:07] LABS: INTERNATIONAL NORMALIZED RATIO 1.3 RATIO
[2017-09-03 14:13] LABS: CALCIUM 7.9 MG/DL (8.5-10.1); CREATININE 5.46 MG/DL (0.50-1.00)
== END ==
LOC: CLAB 13:36
PROVIDERS: ATTEND Podiatrist Foot & Ankle Surgery
DX: D68.9 Coagulation defect, unspecified (principal)
CPT/HCPCS: 36415; 80048; 85027; 85610; 85730

== ENCOUNTER 2017-09-06 18:55 | Inpatient (IN) | payer MEDICARE, OTHER ==
[~2017-09-06] VITALS: Ht 165.1 cm; Wt 50.1 kg
[2017-09-06 18:56] VITALS: BP 189/83; PULSE 84; RESP 16; TEMP 98; O2SAT 97
[2017-09-06 19:40] VITALS: O2SAT 98
[2017-09-06] MEDS ORDERED: VANCOMYCIN 1 GM/200 ML INJ 200 ML IV ONE (19:45)
--- NOTE | 2017-09-06 20:12 | PD ---
HPI Chief Complaint: Skin Problem Time Seen by Provider: 19:12 Travel History International Travel<30 days: No Contact w/Intl Traveler<30days: No Traveled to known affect area: No History of Present Illness HPI 72-year-old female that presents to the ED for evaluation of admission for right foot infection. Patient has a history of infection to her right foot and follows with Dr. Bentley from podiatry who has done recent surgery on her. About 2 weeks ago. Patient was seen by her today and she was concerned about the need for further treatment as well as IV antibiotics. She states that she has a history of ESRD on dialysis as well as taking blood thinners. She also has a history of diabetes. History of MRSA in the past. She denies any chest pain or shortness of breath. No headache. Per patient she is due for dialysis tomorrow. She reports 4 out of 10 pain on the foot. She has a history of diabetes and has had this ulcer is for some time. Patient actually had debridement of this just recently about 2 weeks ago. Per patient she had abscesses and infection in the foot. She is continuing to do wound care as told. She continued to the antibiotics but apparently the symptoms worsen which is what prompted evaluation today. She denies any other medical issues at this time. Symptoms appear to be ongoing for a couple months now. PFSH Past Medical History Anemia: Yes Arthritis: Yes Asthma: No Blood Disorders: Yes (ANEMIA) Anxiety: No Depression: No Heart Rhythm Problems: No Cancer: No Cardiovascular Problems: No High Cholesterol: No Chemotherapy: No Chest Pain: No Congestive Heart Failure: No COPD: No Cerebrovascular Accident: No Diabetes: Yes Patient Takes Glucophage: Yes Dialysis: Yes (SINCE NOVEMBER 2012, LEFT AVF 2012) Diminished Hearing: No Gastrointestinal Disorders: No GERD: No Glaucoma: No Headaches: No Hepatitis: No Hiatal Hernia: No Hypertension: Yes Implanted Vascular Access Dvce: Yes Kidney Stones: No Musculoskeletal: No Neurologic: No Psychiatric: No Reproductive: No Respiratory: No Immunizations Current: Yes Myocardial Infarction: No Radiation Therapy: No Renal Failure: Yes Seizures: Yes Sickle Cell Disease: No Sleep Apnea: No Thyroid Disease: Yes Ulcer: No Menopausal: Yes Past Surgical History Abdominal Surgery: No AICD: No Cardiac Surgery: No Ear Surgery: No Endocrine Surgery: No Eye Surgery: No Genitourinary Surgery: No Gynecologic Surgery: No Hysterectomy: Yes (PARTICIAL ) Neurologic Surgery: No Oral Surgery: No Pacemaker: No Thoracic Surgery: No Other Surgery: Yes (FIRST DIGIT FOOT AMPUTATION) Social History Alcohol Use: No Tobacco Use: Yes Substance Use: No Allergies-Medications (Allergen,Severity, Reaction): Coded Allergies: *MDRO Multi-Drug Resistant Organism (Verified Allergy, Unknown, 09/06/17) MRSA Reported Meds & Prescriptions Reported Meds & Active Scripts Active Lantus Solostar Pen Inj (Insulin Glargine) 300 Unit/3 Ml Pen 10 Units SQ HS Sharpsafety Sharps Contai (Parenteral Therapy Supplies) 1 Mis Mis Ea DIRECTED Check blood sugars 3 or more times/day and discard sharps in container. Glucocom Test Strips (Blood Glucose Test Strips) 1 Val Val Ea DIRECTED Check blood sugars 3 or more times/day: fasting in the morning and 2 hr after eating. Insulin Syringe/U-100/31G X 5/16" 1 ml 31 Gauge X 5/16" Mis Ea DIRECTED Administer insulin as directed. Blood Glucose Monitoring W/Device (Device) 1 Kit Kit Kit DIRECTED Check blood sugars 3 or more times/day: fasting in the morning and 2 hr after eating. Blood Glucose Monitoring W/Device (Device) 1 Kit Kit Kit .ROUTE DIRECTED Blood Glucose Test Strips Strips Strip Ea .ROUTE DIRECTED Check blood sugar three times per day. Sharpsafety Sharps Contai (Parenteral Therapy Supplies) 1 Mis Mis Ea .ROUTE DIRECTED Lancets 1 Mis Mis Ea .ROUTE DIRECTED Pantoprazole (Pantoprazole Sodium) 40 Mg Tab 40 Mg PO DAILY Walker with Front Wheels (Device) 1 Mis Mis Ea .ROUTE DIRECTED Nephro-Jammie Rx (Vitamin B Cmplx/Vit C/Folic AC) 1 Tab 1 Tab PO DAILY Remeron (Mirtazapine) 15 Mg Tab 15 Mg PO HS Aspir-81 (Aspirin) 81 Mg Tabdr 81 Mg PO DAILY Levothyroxine (Levothyroxine Sodium) 75 Mcg Tab 75 Mcg PO DAILY Amlodipine (Amlodipine Besylate) 10 Mg Tab 10 Mg PO DAILY Proair Hfa 8.5 GM Inh (Albuterol Sulfate) 90 Mcg/Act Aer 2 Puff INH Q4-6H PRN 108 mcg/actuation Reported Hydroxyzine HCl 25 Mg Tab 25 Mg PO HS Review of Systems Except as stated in HPI: all other systems reviewed are Neg Physical Exam Narrative GENERAL: SKIN: Warm and dry. HEAD: Atraumatic. Normocephalic. EYES: Pupils equal and round. No scleral icterus. No injection or drainage. ENT: No nasal bleeding or discharge. Mucous membranes pink and moist. Tongue is midline. No uvula deviation. NECK: Trachea midline. No JVD. CARDIOVASCULAR: Regular rate and rhythm. No murmurs, S3, S4. RESPIRATORY: No accessory muscle use. Clear to auscultation. Breath sounds equal bilaterally. GASTROINTESTINAL: Abdomen soft, non-tender, nondistended. Hepatic and splenic margins not palpable. MUSCULOSKELETAL: Extremities without clubbing, cyanosis, or edema. No obvious deformities. Patient has significant ulceration of the skin on the dorsal aspect as well as the lateral aspect of the plantar aspect of the right foot as well as on the steering aspect of the foot around the Achilles tendon. Ulceration is almost to the muscle and bone. Some purulent material noted. Any mode bleeding. No erythema noted of told there is some signs of inflammation noted around the wounds. 2+ pulses bilaterally. Sensation intact bilaterally. NEUROLOGICAL: Awake and alert. No obvious cranial nerve deficits. Motor grossly within normal limits. Five out of 5 muscle strength in the arms and legs. Normal speech. PSYCHIATRIC: Appropriate mood and affect; insight and judgment normal. Data Data Last Documented VS Vital Signs Date Time Temp Pulse Resp B/P (MAP) Pulse Ox O2 Delivery O2 Flow Rate FiO2 09/06/17 19:40 98 Room Air 09/06/17 18:56 98.0 84 16 Orders Orders Complete Blood Count With Diff (09/06/17 19:26) Comprehensive Metabolic Panel (09/06/17 19:26) Prothrombin Time / Inr (Pt) (09/06/17 19:26) Act Partial Throm Time (Ptt) (09/06/17 19:26) Blood Culture (09/06/17 19:26) C-Reactive Protein (Crp) (09/06/17 19:26) Magnesium (Mg) (09/06/17 19:26) Chest, Single Ap (09/06/17 19:26) Ecg Monitoring (09/06/17 19:26) Oximetry (09/06/17 19:26) Foot, Complete (Kln1ows) (09/06/17 ) Vancomycin Inj (Vancomycin Inj) (09/06/17 19:45) Consent (09/06/17 19:41) Npo After Midnight W/ Po Meds (09/07/17 Breakfast) Admit Order (Ed Use Only) (09/06/17 20:57) Consult Nephrology (09/06/17 ) Consult Podiatry (09/06/17 ) Labs Laboratory Tests Test 09/06/17 19:45 09/06/17 20:46 White Blood Count 9.4 TH/MM3 Red Blood Count 3.44 MIL/MM3 Hemoglobin 9.1 GM/DL Hematocrit 28.2 % Mean Corpuscular Volume 81.9 FL Mean Corpuscular Hemoglobin 26.5 PG Mean Corpuscular Hemoglobin Concent 32.3 % Red Cell Distribution Width 20.2 % Platelet Count 324 TH/MM3 Mean Platelet Volume 9.0 FL Neutrophils (%) (Auto) 66.4 % Lymphocytes (%) (Auto) 20.2 % Monocytes (%) (Auto) 8.0 % Eosinophils (%) (Auto) 4.8 % Basophils (%) (Auto) 0.6 % Neutrophils # (Auto) 6.3 TH/MM3 Lymphocytes # (Auto) 1.9 TH/MM3 Monocytes # (Auto) 0.8 TH/MM3 Eosinophils # (Auto) 0.5 TH/MM3 Basophils # (Auto) 0.1 TH/MM3 CBC Comment AUTO DIFF Prothrombin Time 12.0 SEC Prothromb Time International Ratio 1.2 RATIO Activated Partial Thromboplast Time 25.1 SEC MDM Medical Decision Making Medical Screen Exam Complete: Yes Emergency Medical Condition: Yes Medical Record Reviewed: Yes Interpretation(s) CBC & BMP Diagram 09/06/17 19:45 Last Impressions Foot X-Ray 09/06/17 0000 Signed Impressions: Service Date/Time: Wednesday, September 06, 2017 20:00 - CONCLUSION: 1. Osteopenia. No acute bony abnormality. Daniel Hinkle MD Differential Diagnosis Abscesses versus diabetic ulcer versus cellulitis versus failed outpatient treatment Narrative Course 72-year-old female that presents to the ED for evaluation of right foot infection. Patient was properly examined and was found to have signs and symptoms which appear to be consistent with right foot infection. I discussed the case with Dr. Misael ascencio who is on-call for the patient's accountant controller and is aware of the case and wanted the patient to be admitted to medicine, started on vancomycin, x-rays and labs. Will keep nothing by mouth after midnight for possible surgery tomorrow. Labs were ordered. I discussed the case with the residents were made aware of patient's need for nothing by mouth status as well as possible need for dialysis tomorrow secondary to her ESRD. I personally put consults to podiatry as well as nephrology for evaluation of possible dialysis and surgery. Residents agreed to admission. Family and patient agrees to admission. Patient was started on antibiotics. Diagnosis Primary Impression: Foot ulcer, right Qualified Codes: L97.512 - Non-pressure chronic ulcer of other part of right foot with fat layer exposed Additional Impressions: Infection ESRD (end stage renal disease) on dialysis Admitting Information Admitting Physician Requests: Admit Prem Candelario Sep 06, 2017 20:11
[2017-09-06 20:15] LABS: AUTOMATED NEUTROPHIL # 6.3 TH/MM3 (1.8-7.7); BASOPHIL # 0.1 TH/MM3 (0-0.2); BASOPHIL % 0.6 % (0.0-2.0); EOSINOPHIL # 0.5 TH/MM3 (0-0.4); EOSINOPHIL % 4.8 % (0.0-4.0); HEMATOCRIT 28.2 % (35.0-46.0); HEMOGLOBIN 9.1 GM/DL (11.6-15.3); LYMPH % 20.2 % (9.0-44.0); LYMPHOCYTE # 1.9 TH/MM3 (1.0-4.8); MEAN CELL VOLUME 81.9 FL (80.0-100.0); MEAN CORPUSCULAR HEMOGLOBIN 26.5 PG (27.0-34.0); MEAN CORPUSCULAR HGB CONC 32.3 % (32.0-36.0); MONOCYTE # 0.8 TH/MM3 (0-0.9); NEUT % 66.4 % (16.0-70.0); PLATELET COUNT 324 TH/MM3 (150-450); RED BLOOD COUNT 3.44 MIL/MM3 (4.00-5.30); RED CELL DISTRIBUTION WIDTH 20.2 % (11.6-17.2); WHITE BLOOD COUNT 9.4 TH/MM3 (4.0-11.0)
[2017-09-06 20:23] LABS: INTERNATIONAL NORMALIZED RATIO 1.2 RATIO
--- NOTE | 2017-09-06 20:37 | RADRPT ---
EXAM DATE/TIME: 09/06/2017 20:00 [facility] COMPARISON: No previous studies available for comparison. INDICATIONS : Right leg pain and infection for about 1 week. MEDICAL HISTORY : Diabetes mellitus type II. Hypertension Renal disease, end stage. SURGICAL HISTORY : None. ENCOUNTER: Initial ACUITY: 1 week PAIN SCORE: 3/10 LOCATION: Right Foot to upper right thigh pain. FINDINGS: The bones are diffusely osteopenic. No fracture or bony destructive change. No abnormal periosteal re action. Vascular calcifications are present. CONCLUSION: 1. Osteopenia. No acute bony abnormality. Daniel Hinkle MD on September 06, 2017 at 20:33 Board Certified Radiologist. This report was verified electronically.
--- NOTE | 2017-09-06 21:00 | RADRPT ---
EXAM DATE/TIME: 09/06/2017 19:55 [facility] COMPARISON: CHEST SINGLE AP, July 23, 2017, 3:30. INDICATIONS : Shortness of breath. MEDICAL HISTORY : Diabetes mellitus type 2. Seizures. Hypertension. SURGICAL HISTORY : None. ENCOUNTER: Initial ACUITY: PAIN SCORE: 0/10 LOCATION: Bilateral chest FINDINGS: A single view of the chest demonstrates cardiomegaly. Patchy basilar airspace disease. No effusion. N o pneumothorax. CONCLUSION: 1. Patchy subsegmental mostly basilar airspace disease with cardiomegaly. No effusion. Daniel Hinkle MD on September 06, 2017 at 20:56 Board Certified Radiologist. This report was verified electronically.
[2017-09-06 21:07] LABS: OVALOCYTES 1+ (NORMAL); TARGET CELLS 1+ (NORMAL)
--- NOTE | 2017-09-06 21:21 | HHI.HP ---
[facility] Service Family Medicine Primary Care Physician Charu Akbar MD Admission Diagnosis infected diabetic ulcer, failed outpatient tx, ESRD on dialysis Diagnoses: Chief Complaint: foot wound International Travel<30 Days: No Contact w/Intl Traveler<30days: No History of Present Illness 72 y/o -[place]er female presents with right foot wound. She has a chronic right foot wound that has been going on for about 2 months now. She was seen at the vendor analyst's office today by Dr. Bentley, who sent her over. Noticed some increased pus drainage from the site. She was recently hospitalized in July and underwent surgical exploration and had a wound VAC placed at that time. Since then, she states the wound has been stable, but possible worsening signs of infection. States she was given antibiotics at home , Levaquin. Some pain in her foot, but minimal due to diabetic neuropathy. Occasional shooting pain down her right foot. Denies any fever/chills, nausea/ vomiting, chest pain, SOB. Of note, hasn't had dialysis today, follows with Dr. Buchanan. Review of Systems Constitutional: DENIES: Fatigue, Fever, Weight gain, Weight loss, Chills, Night Sweats Endocrine: DENIES: Abnorml menstrual pattern Eyes: DENIES: Blurred vision, Vision loss Ears, nose, mouth, throat: DENIES: Tinnitus, Hearing loss, Running Nose Respiratory: COMPLAINS OF: Cough, DENIES: Shortness of breath Cardiovascular: COMPLAINS OF: Lower Extremity Edema, DENIES: Chest pain, Palpitations Gastrointestinal: DENIES: Black stools, Bloody stools, Constipation, Diarrhea, Nausea, Vomiting Musculoskeletal: DENIES: Joint pain, Muscle aches, Stiffness Integumentary: DENIES: Pruritus, Rash Hematologic/lymphatic: DENIES: Bruising, Lymphadenopathy Neurologic: COMPLAINS OF: Paresthesias, DENIES: Abnormal gait, Headache Psychiatric: DENIES: Anxiety, Confusion Past Family Social History Past Medical History - ESRD (on dialysis MWF since 11/2012) - HTN - DM - Hypothyroidism - Diabetic nephropathy resulting in ESRD - Nocturnal hypoxia (on 2 L night-time oxygen) - GERD - Hepatitis C - Cataracts - Foot abscess July 2017 (wound vac, surgery) - GI bleeding (unclear etiology) July 2017 Past Surgical History - Left hallux amputation - Right foot abscess I&D Reported Medications Reported Meds & Active Scripts Active Lantus Solostar Pen Inj (Insulin Glargine) 300 Unit/3 Ml Pen 10 Units SQ HS Sharpsafety Sharps Contai (Parenteral Therapy Supplies) 1 Mis Mis Ea DIRECTED Check blood sugars 3 or more times/day and discard sharps in container. Glucocom Test Strips (Blood Glucose Test Strips) 1 Val Val Ea DIRECTED Check blood sugars 3 or more times/day: fasting in the morning and 2 hr after eating. Insulin Syringe/U-100/31G X 5/16" 1 ml 31 Gauge X 5/16" Mis Ea DIRECTED Administer insulin as directed. Blood Glucose Monitoring W/Device (Device) 1 Kit Kit Kit DIRECTED Check blood sugars 3 or more times/day: fasting in the morning and 2 hr after eating. Blood Glucose Monitoring W/Device (Device) 1 Kit Kit Kit .ROUTE DIRECTED Blood Glucose Test Strips Strips Strip Ea .ROUTE DIRECTED Check blood sugar three times per day. Sharpsafety Sharps Contai (Parenteral Therapy Supplies) 1 Mis Mis Ea .ROUTE DIRECTED Lancets 1 Mis Mis Ea .ROUTE DIRECTED Pantoprazole (Pantoprazole Sodium) 40 Mg Tab 40 Mg PO DAILY Walker with Front Wheels (Device) 1 Mis Mis Ea .ROUTE DIRECTED Nephro-Jammie Rx (Vitamin B Cmplx/Vit C/Folic AC) 1 Tab 1 Tab PO DAILY Remeron (Mirtazapine) 15 Mg Tab 15 Mg PO HS Aspir-81 (Aspirin) 81 Mg Tabdr 81 Mg PO DAILY Levothyroxine (Levothyroxine Sodium) 75 Mcg Tab 75 Mcg PO DAILY Amlodipine (Amlodipine Besylate) 10 Mg Tab 10 Mg PO DAILY Proair Hfa 8.5 GM Inh (Albuterol Sulfate) 90 Mcg/Act Aer 2 Puff INH Q4-6H PRN 108 mcg/actuation Reported Hydroxyzine HCl 25 Mg Tab 25 Mg PO HS Allergies: Coded Allergies: *MDRO Multi-Drug Resistant Organism (Verified Allergy, Unknown, 09/06/17) MRSA Active Ordered Medications Active Medications Vancomycin/Sodium Chloride 200 ml @ 200 mls/hr ONCE ONCE IV Last administered on 09/06/17at 20:10; Admin Dose 200 MLS/HR; Start 09/06/17 at 19:45; Stop at 20:44; Status DC Family History History of HTN, DM Social History Tobacco: currently 1-2 cigarette daily, history of 1 PPD for ~35 yrs EtOH: denies Illicit drugs: denies Physical Exam Vital Signs Vital Signs Date Time Temp Pulse Resp B/P (MAP) Pulse Ox O2 Delivery O2 Flow Rate FiO2 09/06/17 19:40 98 Room Air 09/06/17 18:56 98.0 84 16 189/83 (118) 97 Room Air Physical Exam GENERAL: This is a well-nourished, well-developed patient, in no apparent distress. SKIN: No rashes, ecchymoses or lesions. Cool and dry. HEAD: Atraumatic. Normocephalic. No temporal or scalp tenderness. EYES: Pupils equal round and reactive. Extraocular motions intact. No scleral icterus. No injection or drainage. ENT: Throat without erythema, tonsillar hypertrophy or exudate. Uvula midline. Airway patent. NECK: Trachea midline. No JVD or lymphadenopathy. Supple, nontender. CARDIOVASCULAR: Regular rate and rhythm without murmurs, gallops, or rubs. RESPIRATORY: Clear to auscultation. Breath sounds equal bilaterally. No wheezes , rales, or rhonchi. GASTROINTESTINAL: Abdomen soft, non-tender, nondistended. No hepato-splenomegaly , or palpable masses. No guarding. MUSCULOSKELETAL: Left extremity with hallux amputation. Right extermity without edema. Ulcer present on medial right mid-foot as well as a larger wound around the left medial ankle. Some sanguineous drainage present. Mild erythema surrounding wounds. No active bleeding NEUROLOGICAL: Awake and alert. Motor and sensory grossly within normal limits. Normal speech. Laboratory Laboratory Tests Test 09/06/17 19:45 09/06/17 20:46 White Blood Count 9.4 Red Blood Count 3.44 Hemoglobin 9.1 Hematocrit 28.2 Mean Corpuscular Volume 81.9 Mean Corpuscular Hemoglobin 26.5 Mean Corpuscular Hemoglobin Concent 32.3 Red Cell Distribution Width 20.2 Platelet Count 324 Mean Platelet Volume 9.0 Neutrophils (%) (Auto) 66.4 Lymphocytes (%) (Auto) 20.2 Monocytes (%) (Auto) 8.0 Eosinophils (%) (Auto) 4.8 Basophils (%) (Auto) 0.6 Neutrophils # (Auto) 6.3 Lymphocytes # (Auto) 1.9 Monocytes # (Auto) 0.8 Eosinophils # (Auto) 0.5 Basophils # (Auto) 0.1 CBC Comment AUTO DIFF Differential Comment AUTO DIFF CONFIRMED Platelet Estimate NORMAL Platelet Morphology Comment ENLARGED Target Cells 1+ Ovalocytes 1+ Prothrombin Time 12.0 Prothromb Time International Ratio 1.2 Activated Partial Thromboplast Time 25.1 Date/Time Source Procedure Growth Status 09/06/17 19:45 Blood Peripheral Aerobic Blood Culture Pending Received 09/06/17 19:45 Blood Peripheral Anaerobic Blood Culture Pending Received Result Diagram: 09/06/171944 Imaging Last Impressions Chest X-Ray 09/06/[id number] Signed Impressions: Service Date/Time: Wednesday, September 06, 2017 19:55 - CONCLUSION: 1. Patchy subsegmental mostly basilar airspace disease with cardiomegaly. No effusion. Daniel Hinkle MD Foot X-Ray 09/06/17 0000 Signed Impressions: Service Date/Time: Wednesday, September 06, 2017 20:00 - CONCLUSION: 1. Osteopenia. No acute bony abnormality. Daniel Hinkle MD Caprini VTE Risk Assessment Caprini VTE Risk Assessment: Mod/High Risk (score >= 2) VTE Pharm Contraindication: surgery Caprini Risk Assessment Model Point Value = 1 Point Value = 2 Point Value = 3 Point Value = 5 Age 41-60 Minor surgery BMI > 25 kg/m2 Swollen legs Varicose veins or History of unexplained or recurrent spontaneous Oral contraceptives or hormone replacement Sepsis (< 1 month) Serious lung disease, including pneumonia (< 1 month) Abnormal pulmonary function Acute myocardial infarction Congestive heart failure (< 1 month) History of inflammatory bowel disease Medical patient at bed rest Age 61-74 Arthroscopic surgery Major open surgery (> 45 min) Laparoscopic surgery (> 45 min) Malignancy Confined to bed (> 72 hours) Immobilizing plaster cast Central venous access Age >= 75 History of VTE Family history of VTE Factor V Leiden Prothrombin [id number] Lupus anticoagulant Anticardiolipin antibodies Elevated serum homocysteine Heparin-induced thrombocytopenia Other congenital or acquired thrombophilia Stroke (< 1 month) Elective arthroplasty Hip, pelvis, or leg fracture Acute spinal cord injury (< 1 month) Prophylaxis Regimen Total Risk Factor Score Risk Level Prophylaxis Regimen 0-1 Low Early ambulation 2 Moderate Order ONE of the following: *Sequential Compression Device (SCD) *Heparin 5000 units SQ BID 3-4 Higher Order ONE of the following medications: *Heparin 5000 units SQ TID *Enoxaparin/Lovenox 40 mg SQ daily (WT < 150 kg, CrCl > 30 mL/min) *Enoxaparin/Lovenox 30 mg SQ daily (WT < 150 kg, CrCl > 10-29 mL/min) *Enoxaparin/Lovenox 30 mg SQ BID (WT < 150 kg, CrCl > 30 mL/min) AND/OR *Sequential Compression Device (SCD) 5 or more Highest Order ONE of the following medications: *Heparin 5000 units SQ TID (Preferred with Epidurals) *Enoxaparin/Lovenox 40 mg SQ daily (WT < 150 kg, CrCl > 30 mL/min) *Enoxaparin/Lovenox 30 mg SQ daily (WT < 150 kg, CrCl > 10-29 mL/min) *Enoxaparin/Lovenox 30 mg SQ BID (WT < 150 kg, CrCl > 30 mL/min) AND *Sequential Compression Device (SCD) Assessment and Plan Assessment and Plan 72 y/o with chronic history of HTN, DM, ESRD, chronic foot wounds presents from podiatry clinic today for evaluation. Will admit upon podiatry recs for possible surgical intervention. Code Status Full Discussed Condition With Karlene Candelario Problem List: (1) Foot ulcer, right ICD Codes: L97.519 - Non-pressure chronic ulcer of other part of right foot with unspecified severity Status: Acute Plan: Patient presents with chronic right foot wounds. Has had debridement and oral antibiotics in the past. Failed outpatient treatment, presented today due to podiatry recommendations. WBC 9.4. Vitals stable. CRP 4.2 Foot x-ray: osteopenia, no acute bony abnormality. -Start Vancomycin-pharmacy consulted -Zosyn IV 2.25 IV q8H due to ESRD -Podiatry consulted -NPO for possible surgical intervention -Wound care as needed (2) ESRD (end stage renal disease) on dialysis ICD Codes: N18.6 - End stage renal failure on dialysis; Z99.2 - Dependence on renal dialysis Status: Chronic Plan: Patient on dialysis 3 days a week. Sees Dr. Buchanan, land inspector outpatient. No urine output BUN 64, Cr 6.85. -Nephrology consulted -Will need dialysis tomorrow -Monitor I/O -Avoid nephrotoxic agents (3) Diabetes mellitus ICD Codes: E11.9 - Type 2 diabetes mellitus without complications Status: Chronic Plan: History of long-term diabetes on insulin at home -Sliding scale insulin, while NPO -Monitor accuchecks -May need basal insulin, once eating again (4) Hypertension ICD Codes: I10 - Hypertension Status: Chronic Plan: BP 189/83 on admission -Continue home amlodipine -Regular vitals, may need PRN (5) Hypothyroidism ICD Codes: E03.9 - Hypothyroidism Status: Chronic Plan: Continue home Synthroid (6) FEN Status: Acute Plan: Fluids: None, on dialysis Electrolytes: monitor, replace PRN Nutrition: NPO DVT ppx: hold chemoppx due to surgery, SCDs Physician Certification 2 Midnight Certification Type: Admission for Inpatient Services Order for Inpatient Services The services are ordered in accordance with Medicare regulations or non- Medicare payer requirements, as applicable. In the case of services not specified as inpatient-only, they are appropriately provided as inpatient services in accordance with the 2-midnight benchmark. Estimated LOS (days): 3 days is the estimated time the patient will need to remain in the hospital, assuming treatment plan goals are met and no additional complications. Post-Hospital Plan: Home Problem Qualifiers (1) Foot ulcer, right: Qualified Codes: L97.512 - Non-pressure chronic ulcer of other part of right foot with fat layer exposed (2) Diabetes mellitus: Qualified Codes: E11.42 - Type 2 diabetes mellitus with diabetic polyneuropathy ; Z79.4 - [facility] (current) use of insulin (3) Hypertension: Qualified Codes: I10 - Essential (primary) hypertension (4) Hypothyroidism: Qualified Codes: E03.9 - Hypothyroidism, unspecified Reymundo Shine MD Sep 06, 2017 21:21
[2017-09-06] MEDS ORDERED: ACETAMINOPHEN 325 MG TAB PO PRN (21:45)
[2017-09-06] MEDS ORDERED: MAGNESIUM HYDROXIDE SUSP 30 ML CUP PO PRN (21:45)
[2017-09-06] MEDS ORDERED: BISACODYL 10 MG SUPP RECTAL PRN (21:45)
[2017-09-06] MEDS ORDERED: SODIUM CHLORIDE 0.9% FLUSH 10 ML FLUSH IV FLUSH PRN (21:45)
[2017-09-06] MEDS ORDERED: LACTULOSE SYRUP 20 GM/30 ML CUP PO PRN (21:45)
[2017-09-06] MEDS ORDERED: SENNOSIDES 8.6 MG TAB PO PRN (21:45)
[2017-09-06] MEDS ORDERED: NALOXONE HCL 0.4 MG/ML AMP IV PUSH PRN (21:45)
[2017-09-06] MEDS ORDERED: Vancomycin Consult Pharmacy 1 EA OTHER SCH (22:00)
[2017-09-06] MEDS ORDERED: ALBUTEROL SULFATE 90 MCG/ACT HFA 8 GM INHALER INH PRN (22:00)
[2017-09-06] MEDS ORDERED: GLUCAGON 1 MG/ML VIAL OTHER PRN (22:00)
[2017-09-06 22:09] LABS: ALBUMIN 2.4 GM/DL (3.4-5.0); AST (GOT) 15 U/L (15-37); BICARBONATE 23.3 MEQ/L (21.0-32.0); BLOOD UREA NITROGEN 64 MG/DL (7-18); CALCIUM 8.2 MG/DL (8.5-10.1); CHLORIDE 104 MEQ/L (98-107); CREATININE 6.85 MG/DL (0.50-1.00); GLOMERULAR FILTRATION RATE 7 ML/MIN (>89); GLUCOSE,RANDOM 185 MG/DL (74-106); MAGNESIUM 2.3 MG/DL (1.5-2.5); SODIUM (NA) 138 MEQ/L (136-145)
[2017-09-06 22:10] LABS: ALT (GPT) 9 U/L (10-53)
[2017-09-06 22:12] LABS: ALKALINE PHOSPHATASE 172 U/L (45-117); TOTAL BILIRUBIN ADULT 0.4 MG/DL (0.2-1.0); TOTAL PROTEIN 7.2 GM/DL (6.4-8.2)
[2017-09-06 23:57] VITALS: BP 168/77; PULSE 80; RESP 16; TEMP 97.3; O2SAT 98
[2017-09-07] MEDS: PIPERACIL-TAZO 2.25 GM PREMIX 50 ML IV SCH ×5 (00:07→21:25)
[2017-09-07] MEDS: MIRTAZAPINE 15 MG TAB PO SCH ×2 (00:07→21:24)
[2017-09-07] MEDS: ACETAMINOPHEN/HYDROcodone 325 MG/5 MG TAB PO PRN ×2 (00:07→06:44)
[2017-09-07] MEDS ORDERED: POVIDONE IODINE 5% (ANTISEPSIS KIT) 4 APPLICATIONS EACH NARE PRN (01:00)
[2017-09-07] MEDS ORDERED: CHLORHEXIDINE GLUCONATE 2 % 1 PACK (2 CLOTHS) TOPICAL PRN (01:00)
[2017-09-07] MEDS ORDERED: SODIUM CHLORID 0.9% 500 ML IV PRN (01:00)
[2017-09-07] MEDS: LEVOTHYROXINE SODIUM 75 MCG TAB PO SCH (06:44)
[2017-09-07] MEDS: INSULIN ASPART SUPPLEMENTAL SCALE SQ SCH ×4 (07:46→21:25)
[2017-09-07 08:00] VITALS: BP 131/61; PULSE 71; RESP 15; TEMP 97.5; O2SAT 92
[2017-09-07] MEDS ORDERED: VANCOMYCIN 1 GM/200 ML INJ 200 ML IV SCH (08:00)
[2017-09-07] MEDS: ASPIRIN EC 81 MG TABEC PO SCH (08:21)
[2017-09-07] MEDS: DOCUSATE SODIUM 50 MG/SENNA 8.6 MG TAB PO SCH ×2 (08:22→21:24)
[2017-09-07] MEDS: PANTOPRAZOLE SOD 40 MG DELAYED RELEASE TAB PO SCH (08:23)
[2017-09-07] MEDS: VITAMIN B CMPLX/VITC/FOLIC AC CAP PO SCH (08:24)
[2017-09-07] MEDS: SODIUM CHLORIDE 0.9% FLUSH 10 ML FLUSH IV FLUSH SCH ×2 (08:25→21:24)
[2017-09-07] MEDS ORDERED: SODIUM CHLOR 0.9% 1000 ML INJ 1,000 ML OTHER PRN ×2 (09:20)
[2017-09-07] MEDS ORDERED: SODIUM CHLOR 0.9% 1000 ML INJ 1,000 ML IV PRN (09:20)
[2017-09-07 09:22] LABS: AUTOMATED NEUTROPHIL # 4.7 TH/MM3 (1.8-7.7); BASOPHIL % 0.4 % (0.0-2.0); EOSINOPHIL # 0.5 TH/MM3 (0-0.4); EOSINOPHIL % 6.9 % (0.0-4.0); HEMATOCRIT 23.1 % (35.0-46.0); HEMOGLOBIN 7.2 GM/DL (11.6-15.3); LYMPH % 20.3 % (9.0-44.0); LYMPHOCYTE # 1.5 TH/MM3 (1.0-4.8); MEAN CELL VOLUME 81.7 FL (80.0-100.0); MEAN CORPUSCULAR HEMOGLOBIN 25.5 PG (27.0-34.0); MEAN CORPUSCULAR HGB CONC 31.2 % (32.0-36.0); MEAN PLATELET VOLUME 9.3 FL (7.0-11.0); MONO % 8.9 % (0.0-8.0); MONOCYTE # 0.7 TH/MM3 (0-0.9); NEUT % 63.5 % (16.0-70.0); PLATELET COUNT 310 TH/MM3 (150-450); RED BLOOD COUNT 2.83 MIL/MM3 (4.00-5.30); RED CELL DISTRIBUTION WIDTH 20.1 % (11.6-17.2); WHITE BLOOD COUNT 7.4 TH/MM3 (4.0-11.0)
[2017-09-07] MEDS ORDERED: HEPARIN SODIUM - IV 10,000 UNITS/10 ML VIAL IV FLUSH PRN (09:30)
[2017-09-07] MEDS ORDERED: ALBUMIN 25% INJ 100 ML IV PRN (09:30)
[2017-09-07] MEDS ORDERED: ONDANSETRON HCL 4 MG/2 ML VIAL IV PUSH PRN (09:30)
[2017-09-07] MEDS ORDERED: NITROGLYCERIN 0.4 MG SL 25 TABS/BTL SL PRN (09:30)
[2017-09-07] MEDS ORDERED: SODIUM CHLORIDE 0.9% FLUSH 10 ML FLUSH IV FLUSH PRN (09:30)
[2017-09-07] MEDS ORDERED: GENTAMICIN SULFATE 20 MG/2 ML VIAL OTHER PRN (09:30)
[2017-09-07] MEDS ORDERED: MANNITOL 12.5 GM/50 ML VIAL IV PRN (09:30)
[2017-09-07] MEDS ORDERED: ACETAMINOPHEN 325 MG TAB PO PRN (09:30)
[2017-09-07] MEDS ORDERED: HEPARIN SODIUM - IV 10,000 UNITS/10 ML VIAL PRN (09:30)
--- NOTE | 2017-09-07 09:34 | PD.CONS ---
HPI Service Nephrology Consult Requested By Reason for Consult ESRD Primary Care Physician Charu Akbar MD History of Present Illness Ms. Bolivar is a 72 year old lady with history of ESRD on HD. She was recently in the hospital with right foot infection, ulcer for which she underwent surgery with placement of wound vac. She was sent to the ER by her special effects specialist for management of possible infection in the right foot. Past Family Social History Allergies: Coded Allergies: *MDRO Multi-Drug Resistant Organism (Verified Allergy, Unknown, 09/06/17) MRSA Past Medical History ESRD - Hypertension - DM type 2 - Hypothyroidism -- GERD - Hepatitis C - Cataracts - Foot abscess July 2017 (wound vac, surgery) - GI bleeding (unclear etiology) July 2017 Recurrent ascites. Past Surgical History - Left hallux amputation - Right foot abscess I&D AVF placement. Reported Medications Reported Meds & Active Scripts Active Lantus Solostar Pen Inj (Insulin Glargine) 300 Unit/3 Ml Pen 10 Units SQ HS Sharpsafety Sharps Contai (Parenteral Therapy Supplies) 1 Mis Mis Ea DIRECTED Check blood sugars 3 or more times/day and discard sharps in container. Glucocom Test Strips (Blood Glucose Test Strips) 1 Val Val Ea DIRECTED Check blood sugars 3 or more times/day: fasting in the morning and 2 hr after eating. Insulin Syringe/U-100/31G X 5/16" 1 ml 31 Gauge X 5/16" Mis Ea DIRECTED Administer insulin as directed. Blood Glucose Monitoring W/Device (Device) 1 Kit Kit Kit DIRECTED Check blood sugars 3 or more times/day: fasting in the morning and 2 hr after eating. Blood Glucose Monitoring W/Device (Device) 1 Kit Kit Kit .ROUTE DIRECTED Blood Glucose Test Strips Strips Strip Ea .ROUTE DIRECTED Check blood sugar three times per day. Sharpsafety Sharps Contai (Parenteral Therapy Supplies) 1 Mis Mis Ea .ROUTE DIRECTED Lancets 1 Mis Mis Ea .ROUTE DIRECTED Pantoprazole (Pantoprazole Sodium) 40 Mg Tab 40 Mg PO DAILY Walker with Front Wheels (Device) 1 Mis Mis Ea .ROUTE DIRECTED Nephro-Jammie Rx (Vitamin B Cmplx/Vit C/Folic AC) 1 Tab 1 Tab PO DAILY Remeron (Mirtazapine) 15 Mg Tab 15 Mg PO HS Aspir-81 (Aspirin) 81 Mg Tabdr 81 Mg PO DAILY Levothyroxine (Levothyroxine Sodium) 75 Mcg Tab 75 Mcg PO DAILY Amlodipine (Amlodipine Besylate) 10 Mg Tab 10 Mg PO DAILY Proair Hfa 8.5 GM Inh (Albuterol Sulfate) 90 Mcg/Act Aer 2 Puff INH Q4-6H PRN 108 mcg/actuation Active Ordered Medications Current Medications Medications (Trade) Dose Ordered Sig/Rita Route Start Time Stop Time Status Last Admin (NS Flush) 2 ml UNSCH PRN IV FLUSH 09/06/17 21:45 (NS Flush) 2 ml BID IV FLUSH 09/07/17 09:00 09/07/17 08:25 (Tylenol) 650 mg Q4H PRN PO 09/06/17 21:45 (Zofran Inj) 4 mg Q6H PRN IVP 09/06/17 21:45 (Narcan Inj) 0.4 mg UNSCH PRN IV PUSH 09/06/17 21:45 (Velma-Colace) 1 tab BID PO 09/07/17 09:00 (Milk Of Magnesia Liq) 30 ml Q12H PRN PO 09/06/17 21:45 (Senokot) 17.2 mg Q12H PRN PO 09/06/17 21:45 (Dulcolax Supp) 10 mg DAILY PRN RECTAL 09/06/17 21:45 (Lactulose Liq) 30 ml DAILY PRN PO 09/06/17 21:45 (D50w (Vial) Inj) 50 ml UNSCH PRN IV PUSH 09/06/17 22:00 (Glucagon Inj) 1 mg UNSCH PRN OTHER 09/06/17 22:00 (NovoLOG SUPPLEMENTAL SCALE) 1 ACHS SLIDING SCALE SQ 09/07/17 08:00 (Proair Hfa Inh) 2 puff Q4H PRN INH 09/06/17 22:00 (Norvasc) 10 mg DAILY PO 09/07/17 09:00 (Ecotrin Ec) 81 mg DAILY PO 09/07/17 09:00 (Atarax) 25 mg HS PO 09/07/17 21:00 (Synthroid) 75 mcg DAILY@0600 PO 09/07/17 06:00 09/07/17 06:44 (Protonix) 40 mg DAILY PO 09/07/17 09:00 09/07/17 08:23 (Nephrocaps) 1 cap DAILY PO 09/07/17 09:00 09/07/17 08:24 Pharmacy Profile Note 0 ml @ 0 mls/hr UNSCH OTHER 09/06/17 22:00 Piperacillin Sod/ Tazobactam Sod 50 ml @ 100 mls/hr Q8H IV 09/06/17 22:00 09/07/17 06:49 (Remeron) 15 mg HS PO 09/07/17 00:00 09/07/17 00:07 (Sandy Level 5-325 Mg) 1 tab Q4H PRN PO 09/07/17 00:00 09/07/17 06:44 Sodium Chloride 500 ml @ 30 mls/hr [id number] PRN IV 09/07/17 01:00 09/10/17 00:59 (Betadine 5% Antisepsis Kit) 1 applic FURNACE TENDER PRN EACH NARE 09/07/17 01:00 09/10/17 00:59 (Chlorhexidine 2% Cloth) 3 pack FURNACE TENDER PRN TOPICAL 09/07/17 01:00 09/10/17 00:59 Family History History of HTN, DM Social History Tobacco: currently 1-2 cigarette daily, history of 1 PPD for ~35 yrs No ETOH or other drugs Physical Exam Vital Signs Vital Signs Date Time Temp Pulse Resp B/P (MAP) Pulse Ox O2 Delivery O2 Flow Rate FiO2 09/07/17 08:00 97.5 71 15 131/61 (84) 92 09/06/17 23:57 97.3 80 16 168/77 (107) 98 09/06/17 21:48 09/06/17 19:40 98 Room Air 09/06/17 18:56 98.0 84 16 189/83 (118) 97 Room Air Physical Exam GENERAL: awake, alert, malnourished. SKIN: Warm and dry. HEAD: Normocephalic. EYES: No scleral icterus. No injection or drainage. NECK: Supple, trachea midline. No JVD or lymphadenopathy. CARDIOVASCULAR: Regular rate and rhythm without murmurs, gallops, or rubs. RESPIRATORY: Breath sounds equal bilaterally. No accessory muscle use. GASTROINTESTINAL: Abdomen soft, non-tender, nondistended. MUSCULOSKELETAL: dressings over the feet. BACK: Nontender without obvious deformity. No CVA tenderness. Laboratory Laboratory Tests Test 09/06/17 19:45 09/06/17 21:37 09/07/17 07:45 White Blood Count 9.4 7.4 Red Blood Count 3.44 2.83 Hemoglobin 9.1 7.2 Hematocrit 28.2 23.1 Mean Corpuscular Volume 81.9 81.7 Mean Corpuscular Hemoglobin 26.5 25.5 Mean Corpuscular Hemoglobin Concent 32.3 31.2 Red Cell Distribution Width 20.2 20.1 Platelet Count 324 310 Mean Platelet Volume 9.0 9.3 Neutrophils (%) (Auto) 66.4 63.5 Lymphocytes (%) (Auto) 20.2 20.3 Monocytes (%) (Auto) 8.0 8.9 Eosinophils (%) (Auto) 4.8 6.9 Basophils (%) (Auto) 0.6 0.4 Neutrophils # (Auto) 6.3 4.7 Lymphocytes # (Auto) 1.9 1.5 Monocytes # (Auto) 0.8 0.7 Eosinophils # (Auto) 0.5 0.5 Basophils # (Auto) 0.1 0.0 CBC Comment AUTO DIFF DIFF FINAL Differential Comment AUTO DIFF CONFIRMED Platelet Estimate NORMAL Platelet Morphology Comment ENLARGED Target Cells 1+ Ovalocytes 1+ Prothrombin Time 12.0 Prothromb Time International Ratio 1.2 Activated Partial Thromboplast Time 25.1 Blood Urea Nitrogen 64 Creatinine 6.85 Random Glucose 185 Total Protein 7.2 Albumin 2.4 Calcium Level 8.2 Magnesium Level 2.3 Alkaline Phosphatase 172 Aspartate Amino Transf (AST/SGOT) 15 Alanine Aminotransferase (ALT/SGPT) 9 Total Bilirubin 0.4 Sodium Level 138 Potassium Level 5.0 Chloride Level 104 Carbon Dioxide Level 23.3 Anion Gap 11 Estimat Glomerular Filtration Rate 7 C-Reactive Protein 4.20 Date/Time Source Procedure Growth Status 09/06/17 19:45 Blood Peripheral Aerobic Blood Culture Pending Received 09/06/17 19:45 Blood Peripheral Anaerobic Blood Culture Pending Received Result Diagram: 09/06/17194409/06/[id number] Assessment and Plan Problem List: (1) ESRD (end stage renal disease) on dialysis ICD Codes: N18.6 - End stage renal failure on dialysis; Z99.2 - Dependence on renal dialysis Status: Chronic Plan: dialysis today and three times/week. Needs high protein diet. Fluid restriction to 1500 ml/day. Avoid IV, BP in the access arm. Daily weights. Low phosphorus diet. (2) Hypertension ICD Codes: I10 - Hypertension Status: Chronic Plan: monitor BP, continue medications. (3) Foot ulcer, right ICD Codes: L97.519 - Non-pressure chronic ulcer of other part of right foot with unspecified severity Status: Acute Plan: She is NPO for surgery. On Vancomycin and Zosyn. Podiatry consulted. (4) Metabolic bone disease ICD Codes: E88.9 - Metabolic disorder, unspecified; M90.80 - Osteopathy in diseases classified elsewhere, unspecified site Status: Acute Plan: monitor phosphorus intermittently. Use binders as appropriate. (5) Diabetes mellitus ICD Codes: E11.9 - Type 2 diabetes mellitus without complications Status: Chronic Plan: insulin coverage while hospitalized, maintain blood glucose between 140 and 180 Assessment and Plan Thanks for the consult. 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
[2017-09-07 09:51] LABS: ALBUMIN 2.2 GM/DL (3.4-5.0); AST (GOT) 13 U/L (15-37); BICARBONATE 23.2 MEQ/L (21.0-32.0); BLOOD UREA NITROGEN 71 MG/DL (7-18); CALCIUM 8.2 MG/DL (8.5-10.1); CHLORIDE 104 MEQ/L (98-107); CREATININE 7.73 MG/DL (0.50-1.00); GLOMERULAR FILTRATION RATE 6 ML/MIN (>89); GLUCOSE,RANDOM 106 MG/DL (74-106); SODIUM (NA) 140 MEQ/L (136-145)
[2017-09-07 09:52] LABS: ALT (GPT) 7 U/L (10-53)
[2017-09-07 09:53] LABS: ALKALINE PHOSPHATASE 147 U/L (45-117); TOTAL BILIRUBIN ADULT 0.4 MG/DL (0.2-1.0); TOTAL PROTEIN 6.5 GM/DL (6.4-8.2)
[2017-09-07] MEDS ORDERED: LIDOCAINE HCL 2% 50 ML VIAL ONE (11:42)
[2017-09-07] MEDS ORDERED: BUPIVACAINE HCL PF 0.5% 30 ML VIAL ONE (11:43)
[2017-09-07] MEDS ORDERED: GENTAMICIN SULFATE 80 MG/2 ML VIAL ONE (11:43)
[2017-09-07] MEDS ORDERED: DEXTROSE 50% IN WATER 50 ML SYRINGE ONE (11:55)
[2017-09-07 12:00] VITALS: BP 159/71; PULSE 71; RESP 16; TEMP 97.7; O2SAT 98
[2017-09-07] MEDS ORDERED: LIDOCAINE HCL 1% PF 5 ML SYRINGE OTHER ONE (12:00)
[2017-09-07] MEDS ORDERED: PROPOFOL 200 MG/20 ML AMP IV ONE (12:00)
[2017-09-07] MEDS ORDERED: ePHEDrine/NS 25 MG/5 ML SYRINGE IV ONE (12:00)
[2017-09-07] MEDS ORDERED: PHENYLEPH/NS 1000 MCG/10 ML SYR IV ONE (12:00)
[2017-09-07] MEDS ORDERED: ONDANSETRON HCL 4 MG/2 ML VIAL IV PUSH ONE (12:00)
--- NOTE | 2017-09-07 12:06 | PD.CONS ---
History of Present Illness Service Podiatry Consult Requested By ED Reason for Consult Right ankle ulcers Primary Care Physician Charu Akbar MD Diagnoses: History of Present Illness Patient was sent in by Dr Galvez to have IV antibiotics and wound evaluation. Patient was scheduled for graft of the wounds on Saturday as outpatient and Dr Galvez did not like how it looked and sent her in to be evaluated. 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 - Nocturnal hypoxia (on 2 L night-time oxygen) - GERD - Hepatitis C - Cataracts - Foot abscess July 2017 (wound vac, surgery) - GI bleeding (unclear etiology) July 2017 Past Surgical History - Left hallux amputation - Right foot abscess I&D Active Ordered Medications Current Medications Medications (Trade) Dose Ordered Sig/Rita Route Start Time Stop Time Status Last Admin (NS Flush) 2 ml UNSCH PRN IV FLUSH 09/06/17 21:45 (NS Flush) 2 ml BID IV FLUSH 09/07/17 09:00 09/07/17 08:25 (Tylenol) 650 mg Q4H PRN PO 09/06/17 21:45 (Zofran Inj) 4 mg Q6H PRN IVP 09/06/17 21:45 (Narcan Inj) 0.4 mg UNSCH PRN IV PUSH 09/06/17 21:45 (Velma-Colace) 1 tab BID PO 09/07/17 09:00 (Milk Of Magnesia Liq) 30 ml Q12H PRN PO 09/06/17 21:45 (Senokot) 17.2 mg Q12H PRN PO 09/06/17 21:45 (Dulcolax Supp) 10 mg DAILY PRN RECTAL 09/06/17 21:45 (Lactulose Liq) 30 ml DAILY PRN PO 09/06/17 21:45 (D50w (Vial) Inj) 50 ml UNSCH PRN IV PUSH 09/06/17 22:00 (Glucagon Inj) 1 mg UNSCH PRN OTHER 09/06/17 22:00 (NovoLOG SUPPLEMENTAL SCALE) 1 ACHS SLIDING SCALE SQ 09/07/17 08:00 (Proair Hfa Inh) 2 puff Q4H PRN INH 09/06/17 22:00 (Norvasc) 10 mg DAILY PO 09/07/17 09:00 (Ecotrin Ec) 81 mg DAILY PO 09/07/17 09:00 (Atarax) 25 mg HS PO 09/07/17 21:00 (Synthroid) 75 mcg DAILY@0600 PO 09/07/17 06:00 09/07/17 06:44 (Protonix) 40 mg DAILY PO 09/07/17 09:00 09/07/17 08:23 (Nephrocaps) 1 cap DAILY PO 09/07/17 09:00 09/07/17 08:24 Pharmacy Profile Note 0 ml @ 0 mls/hr UNSCH OTHER 09/06/17 22:00 Piperacillin Sod/ Tazobactam Sod 50 ml @ 100 mls/hr Q8H IV 09/06/17 22:00 09/07/17 06:49 (Remeron) 15 mg HS PO 09/07/17 00:00 09/07/17 00:07 (Dagmar 5-325 Mg) 1 tab Q4H PRN PO 09/07/17 00:00 09/07/17 06:44 Sodium Chloride 500 ml @ 30 mls/hr [id number] PRN IV 09/07/17 01:00 09/10/17 00:59 (Betadine 5% Antisepsis Kit) 1 applic INVESTIGATOR C[employer] SHORTAGE PRN EACH NARE 09/07/17 01:00 09/10/17 00:59 (Chlorhexidine 2% Cloth) 3 pack INVESTIGATOR [employer] PRN TOPICAL 09/07/17 01:00 09/10/17 00:59 Sodium Chloride 1,000 ml @ 0 mls/hr Q0M PRN OTHER 09/07/17 09:20 (Heparin Inj) 8,000 units UNSCH PRN IV FLUSH 09/07/17 09:30 Sodium Chloride 1,000 ml @ 200 mls/hr Q5H PRN IV 09/07/17 09:20 Sodium Chloride 1,000 ml @ 0 mls/hr Q0M PRN OTHER 09/07/17 09:20 (Mannitol Inj) 12.5 gm UNSCH PRN IV 09/07/17 09:30 Albumin Human 100 ml @ 60 mls/hr UNSCH PRN IV 09/07/17 09:30 (NS Flush) 5 ml UNSCH PRN IV FLUSH 09/07/17 09:30 (Heparin Inj) UNSCH PRN .XX 09/07/17 09:30 (Gentamicin Inj) 20 mg UNSCH PRN OTHER 09/07/17 09:30 (Zofran Inj) 4 mg UNSCH PRN IV PUSH 09/07/17 09:30 (Tylenol) 650 mg UNSCH PRN PO 09/07/17 09:30 (Benadryl) 25 mg UNSCH PRN PO 09/07/17 09:30 (Nitrostat Sl) 0.4 mg UNSCH PRN SL 09/07/17 09:30 (Catapres) 0.1 mg UNSCH PRN PO 09/07/17 09:30 (Epogen Inj) 10,000 units UNSCH PRN IV PUSH 09/07/17 09:30 (Gelfoam 12 Mm/7 Mm Top) 1 foam UNSCH PRN TOP 09/07/17 09:30 Vancomycin HCl 1000 mg/Sodium Chloride 250 ml @ 250 mls/hr WITH DIALYSIS IV 09/07/17 09:30 Family History History of HTN, DM Social History Tobacco: currently 1-2 cigarette daily, history of 1 PPD for ~35 yrs EtOH: denies Illicit drugs: denies Physical Exam Vital Signs Vital Signs Date Time Temp Pulse Resp B/P (MAP) Pulse Ox O2 Delivery O2 Flow Rate FiO2 09/07/17 08:00 97.5 71 15 131/61 (84) 92 09/06/17 23:57 97.3 80 16 168/77 (107) 98 09/06/17 21:48 09/06/17 19:40 98 Room Air 09/06/17 18:56 98.0 84 16 189/83 (118) 97 Room Air Physical Exam Right lateral ankle with wound down to level of peroneal tendons. No lion purulence noted. Posterior medial right ankle ulceration down to level of tendon, as well. No purulence. Mild edema Laboratory Laboratory Tests Test 09/06/17 19:45 09/06/17 21:37 09/07/17 07:45 White Blood Count 9.4 7.4 Red Blood Count 3.44 2.83 Hemoglobin 9.1 7.2 Hematocrit 28.2 23.1 Mean Corpuscular Volume 81.9 81.7 Mean Corpuscular Hemoglobin 26.5 25.5 Mean Corpuscular Hemoglobin Concent 32.3 31.2 Red Cell Distribution Width 20.2 20.1 Platelet Count 324 310 Mean Platelet Volume 9.0 9.3 Neutrophils (%) (Auto) 66.4 63.5 Lymphocytes (%) (Auto) 20.2 20.3 Monocytes (%) (Auto) 8.0 8.9 Eosinophils (%) (Auto) 4.8 6.9 Basophils (%) (Auto) 0.6 0.4 Neutrophils # (Auto) 6.3 4.7 Lymphocytes # (Auto) 1.9 1.5 Monocytes # (Auto) 0.8 0.7 Eosinophils # (Auto) 0.5 0.5 Basophils # (Auto) 0.1 0.0 CBC Comment AUTO DIFF DIFF FINAL Differential Comment AUTO DIFF CONFIRMED Platelet Estimate NORMAL Platelet Morphology Comment ENLARGED Target Cells 1+ Ovalocytes 1+ Prothrombin Time 12.0 Prothromb Time International Ratio 1.2 Activated Partial Thromboplast Time 25.1 Blood Urea Nitrogen 64 71 Creatinine 6.85 7.73 Random Glucose 185 106 Total Protein 7.2 6.5 Albumin 2.4 2.2 Calcium Level 8.2 8.2 Magnesium Level 2.3 Alkaline Phosphatase 172 147 Aspartate Amino Transf (AST/SGOT) 15 13 Alanine Aminotransferase (ALT/SGPT) 9 7 Total Bilirubin 0.4 0.4 Sodium Level 138 140 Potassium Level 5.0 5.2 Chloride Level 104 104 Carbon Dioxide Level 23.3 23.2 Anion Gap 11 13 Estimat Glomerular Filtration Rate 7 6 C-Reactive Protein 4.20 Date/Time Source Procedure Growth Status 09/06/17 19:45 Blood Peripheral Aerobic Blood Culture - Preliminary NO GROWTH IN 1 DAY Resulted 09/06/17 19:45 Blood Peripheral Anaerobic Blood Culture - Preliminary NO GROWTH IN 1 DAY Resulted Result Diagram: 09/07/17 0745 09/07/17 0745 Imaging Last 72 hours Impressions Chest X-Ray 09/06/17 1926 Signed Impressions: Service Date/Time: Wednesday, September 06, 2017 19:55 - CONCLUSION: 1. Patchy subsegmental mostly basilar airspace disease with cardiomegaly. No effusion. Daniel Hinkle MD Foot X-Ray 09/06/17 0000 Signed Impressions: Service Date/Time: Wednesday, September 06, 2017 20:00 - CONCLUSION: 1. Osteopenia. No acute bony abnormality. Daniel Hinkle MD Assessment and Plan Assessment and Plan Ulcerations right ankle To OR for debridement of ulcers Right ankle Likely to OR Saturday at [address] Galvez for repeat debridement and application of graft, if today's cultures are negative Nadir Mello DPM Sep 07, 2017 12:06
--- NOTE | 2017-09-07 13:14 | HHI.PR ---
Immediate Post Op Note Procedure Date: Sep 07, 2017 Pre Op Diagnosis: Ulcers right foot/ankle Post Op Diagnosis: same Surgeon: Nadir Mello DPM First Aid Officer(s): Staff Procedure: Debridement of ulcers right foot/ankle x 3 Findings: consistent with diagnosis Right lateral ankle with eschar to lateral heel and ulceration posterior to lateral malleolus extending along pathway of peroneal tendons. Size approx. 9cm x 6cm x 1.5cm depth, down to level of peroneal tendons. Right medial ankle with fibrotic tissue over granulation tissue. No exposed tendon noted at this level at this time. Measured approx. 6cm x 3.5cm x 0.5cm depth, down to subcutaneous tissue. Right plantar central foot with ulceration down to level of flexor tendons and plantar fascia measuring approx 3.5cm x 2cm x 1.5cm depth, and undermining approx 1.5cm in all directions Cultures were taken from all three locations and labeled accordingly. Remnant wound vac sponge noted in plantar foot and removed. All wounds copiously irrigated with 3L normal saline and excisional debridement performed of all fibrotic and necrotic tissue down to level of tendon to lateral ankle, down to level of tendon plantar foot, and down to level of subcutaneous tissue to medial ankle, utilizing #15 blade and curettage. No lion purulence was noted , but foamy pink discharge noted plantar central foot area. Dressing with xeroform packed into all three sites, 4x4, abd pads, cast padding , brittanie to R foot/ankle. Plan to OR again Saturday [address] Galvez to for repeat debridement to determine if wound debridement/salvage/grafting possible. My recommendation is consultation with Dr De La Cruz for BKA, should patient be agreeable and after patient has her discussion with Dr Galvez. NPO after breakfast on Saturday Consent ordered. Additional Information: n/a Complications: none Specimen(s) removed: Cultures x 3 Estimated blood loss: 10mL Anesthesia: General Drains: None Tourniquet time (min at mmHg) n/a Patient to: PACU Patient Condition: Good Date/Time of Procedure: SEE SURGICAL CARE RECORD Nadir Mello DPM Sep 07, 2017 13:14
[2017-09-07 13:28] VITALS: O2SAT 99
--- NOTE | 2017-09-07 13:30 | HHI.HP ---
[facility] Service Family Medicine Primary Care Physician Charu Akbar MD Admission Diagnosis infected diabetic ulcer, failed outpatient tx, ESRD on dialysis Diagnoses: (1) Foot ulcer, right Diagnosis: Principal (2) ESRD (end stage renal disease) on dialysis Diagnosis: Principal (3) Diabetes mellitus Diagnosis: Principal (4) Hypertension Diagnosis: Principal (5) Hypothyroidism Diagnosis: Principal (6) FEN International Travel<30 Days: No Contact w/Intl Traveler<30days: No History of Present Illness Ms Bolivar is a 72 y/o -Irish female who presented with right foot wound for about 2 months. She was seen at the storage management architect's office by Dr. Bentley, who sent her over to be admitted. Noticed some increased pus drainage from the site. She was recently hospitalized in July and underwent surgical exploration and had a wound VAC placed at that time. Since then, she states the wound has been stable, but possible worsening signs of infection. States she was given antibiotics at home, Levaquin. Some pain in her foot, but minimal due to diabetic neuropathy. Occasional shooting pain down her right foot. Denies any fever/chills, nausea/vomiting, chest pain, SOB. Of note, hasn't had dialysis today, follows with Dr. Buchanan. She had surgery today to debride her foot. She is a little groggy after her surgery but has no pain. Review of Systems Other Constitutional: DENIES: Fatigue, Fever, Weight gain, Weight loss, Chills, Night Sweats Endocrine: DENIES: Abnorml menstrual pattern Eyes: DENIES: Blurred vision, Vision loss Ears, nose, mouth, throat: DENIES: Tinnitus, Hearing loss, Running Nose Respiratory: COMPLAINS OF: Cough, DENIES: Shortness of breath Cardiovascular: COMPLAINS OF: Lower Extremity Edema, DENIES: Chest pain, Palpitations Gastrointestinal: DENIES: Black stools, Bloody stools, Constipation, Diarrhea, Nausea, Vomiting Musculoskeletal: DENIES: Joint pain, Muscle aches, Stiffness Integumentary: DENIES: Pruritus, Rash Hematologic/lymphatic: DENIES: Bruising, Lymphadenopathy Neurologic: COMPLAINS OF: Paresthesias, DENIES: Abnormal gait, Headache Psychiatric: DENIES: Anxiety, Confusion Past Family Social History Past Medical History - ESRD (on dialysis MWF since 11/2012) - HTN - DM - Hypothyroidism - 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 Glucocom Test Strips (Blood Glucose Test Strips) 1 Val Val Ea DIRECTED Check blood sugars 3 or more times/day: fasting in the morning and 2 hr after eating. Insulin Syringe/U-100/31G X 5/16" 1 ml 31 Gauge X 5/16" Mis Ea DIRECTED Administer insulin as directed. Blood Glucose Monitoring W/Device (Device) 1 Kit Kit Kit DIRECTED Check blood sugars 3 or more times/day: fasting in the morning and 2 hr after eating. Blood Glucose Monitoring W/Device (Device) 1 Kit Kit Kit .ROUTE DIRECTED Blood Glucose Test Strips Strips Strip Ea .ROUTE DIRECTED Check blood sugar three times per day. Sharpsafety Sharps Contai (Parenteral Therapy Supplies) 1 Mis Mis Ea .ROUTE DIRECTED Lancets 1 Mis Mis Ea .ROUTE DIRECTED Pantoprazole (Pantoprazole Sodium) 40 Mg Tab 40 Mg PO DAILY Walker with Front Wheels (Device) 1 Mis Mis Ea .ROUTE DIRECTED Nephro-Jammie Rx (Vitamin B Cmplx/Vit C/Folic AC) 1 Tab 1 Tab PO DAILY Remeron (Mirtazapine) 15 Mg Tab 15 Mg PO HS Aspir-81 (Aspirin) 81 Mg Tabdr 81 Mg PO DAILY Levothyroxine (Levothyroxine Sodium) 75 Mcg Tab 75 Mcg PO DAILY Amlodipine (Amlodipine Besylate) 10 Mg Tab 10 Mg PO DAILY Proair Hfa 8.5 GM Inh (Albuterol Sulfate) 90 Mcg/Act Aer 2 Puff INH Q4-6H PRN 108 mcg/actuation Reported Hydroxyzine HCl 25 Mg Tab 25 Mg PO HS Allergies: Coded Allergies: *MDRO Multi-Drug Resistant Organism (Verified Allergy, Unknown, 09/06/17) MRSA Family History History of HTN, DM Social History Tobacco: currently 1-2 cigarette daily, history of 1 PPD for ~35 yrs EtOH: denies Illicit drugs: denies Physical Exam Vital Signs Vital Signs Date Time Temp Pulse Resp B/P (MAP) Pulse Ox O2 Delivery O2 Flow Rate FiO2 09/07/17 13:13 86 16 152/71 (98) 99 Nasal Cannula 3 09/07/17 13:05 97.5 90 16 162/74 (103) 100 Nasal Cannula 3 09/07/17 12:00 97.7 71 16 159/71 (100) 98 09/07/17 08:00 97.5 71 15 131/61 (84) 92 09/06/17 23:57 97.3 80 16 168/77 (107) 98 09/06/17 21:48 09/06/17 19:40 98 Room Air 09/06/17 18:56 98.0 84 16 189/83 (118) 97 Room Air Physical Exam GENERAL: This is a well-nourished, well-developed patient, in no apparent distress. a little tired and hungry from surgery SKIN: No rashes, ecchymoses or lesions. Cool and dry. HEAD: Atraumatic. Normocephalic. No temporal or scalp tenderness. EYES: Pupils equal round and reactive. Extraocular motions intact. No scleral icterus. No injection or drainage. ENT: Throat without erythema, tonsillar hypertrophy or exudate. Uvula midline. Airway patent. NECK: Trachea midline. No JVD or lymphadenopathy. Supple, nontender. CARDIOVASCULAR: Regular rate and rhythm without murmurs, gallops, or rubs. RESPIRATORY: Clear to auscultation. Breath sounds equal bilaterally. No wheezes , rales, or rhonchi. GASTROINTESTINAL: Abdomen soft, non-tender, nondistended. No hepato-splenomegaly , or palpable masses. No guarding. MUSCULOSKELETAL: Left extremity with hallux amputation. Right extermity without edema. Ulcer present on medial right mid-foot as well as a larger wound around the left medial ankle. Some sanguineous drainage present. Mild erythema surrounding wounds. No active bleeding. good area of shunt for dialysis on left arm NEUROLOGICAL: Awake and alert. Motor and sensory grossly within normal limits. Normal speech. Laboratory Laboratory Tests Test 09/06/17 19:45 09/06/17 21:37 09/07/17 07:45 White Blood Count 9.4 7.4 Red Blood Count 3.44 2.83 Hemoglobin 9.1 7.2 Hematocrit 28.2 23.1 Mean Corpuscular Volume 81.9 81.7 Mean Corpuscular Hemoglobin 26.5 25.5 Mean Corpuscular Hemoglobin Concent 32.3 31.2 Red Cell Distribution Width 20.2 20.1 Platelet Count 324 310 Mean Platelet Volume 9.0 9.3 Neutrophils (%) (Auto) 66.4 63.5 Lymphocytes (%) (Auto) 20.2 20.3 Monocytes (%) (Auto) 8.0 8.9 Eosinophils (%) (Auto) 4.8 6.9 Basophils (%) (Auto) 0.6 0.4 Neutrophils # (Auto) 6.3 4.7 Lymphocytes # (Auto) 1.9 1.5 Monocytes # (Auto) 0.8 0.7 Eosinophils # (Auto) 0.5 0.5 Basophils # (Auto) 0.1 0.0 CBC Comment AUTO DIFF DIFF FINAL Differential Comment AUTO DIFF CONFIRMED Platelet Estimate NORMAL Platelet Morphology Comment ENLARGED Target Cells 1+ Ovalocytes 1+ Prothrombin Time 12.0 Prothromb Time International Ratio 1.2 Activated Partial Thromboplast Time 25.1 Blood Urea Nitrogen 64 71 Creatinine 6.85 7.73 Random Glucose 185 106 Total Protein 7.2 6.5 Albumin 2.4 2.2 Calcium Level 8.2 8.2 Magnesium Level 2.3 Alkaline Phosphatase 172 147 Aspartate Amino Transf (AST/SGOT) 15 13 Alanine Aminotransferase (ALT/SGPT) 9 7 Total Bilirubin 0.4 0.4 Sodium Level 138 140 Potassium Level 5.0 5.2 Chloride Level 104 104 Carbon Dioxide Level 23.3 23.2 Anion Gap 11 13 Estimat Glomerular Filtration Rate 7 6 C-Reactive Protein 4.20 Date/Time Source Procedure Growth Status 09/06/17 19:45 Blood Peripheral Aerobic Blood Culture - Preliminary NO GROWTH IN 1 DAY Resulted 09/06/17 19:45 Blood Peripheral Anaerobic Blood Culture - Preliminary NO GROWTH IN 1 DAY Resulted Result Diagram: 09/07/17 0745 09/07/1745 Imaging Last Impressions Chest X-Ray [id number]/06/[id number] Signed Impressions: Service Date/Time: Wednesday, September 06, 2017 19:55 - CONCLUSION: 1. Patchy subsegmental mostly basilar airspace disease with cardiomegaly. No effusion. Daniel Hinkle MD Foot X-Ray 09/06/17 0000 Signed Impressions: Service Date/Time: Wednesday, September 06, 2017 20:00 - CONCLUSION: 1. Osteopenia. No acute bony abnormality. MD Teressa Mcrae VTE Risk Assessment Teressa VTE Risk Assessment: Mod/High Risk (score >= 2) VTE Pharm Contraindication: surgery Caprini Risk Assessment Model Point Value = 1 Point Value = 2 Point Value = 3 Point Value = 5 Age 41-60 Minor surgery BMI > 25 kg/m2 Swollen legs Varicose veins or History of unexplained or recurrent spontaneous Oral contraceptives or hormone replacement Sepsis (< 1 month) Serious lung disease, including pneumonia (< 1 month) Abnormal pulmonary function Acute myocardial infarction Congestive heart failure (< 1 month) History of inflammatory bowel disease Medical patient at bed rest Age 61-74 Arthroscopic surgery Major open surgery (> 45 min) Laparoscopic surgery (> 45 min) Malignancy Confined to bed (> 72 hours) Immobilizing plaster cast Central venous access Age >= 75 History of VTE Family history of VTE Factor V Leiden Prothrombin [id number] Lupus anticoagulant Anticardiolipin antibodies Elevated serum homocysteine Heparin-induced thrombocytopenia Other congenital or acquired thrombophilia Stroke (< 1 month) Elective arthroplasty Hip, pelvis, or leg fracture Acute spinal cord injury (< 1 month) Prophylaxis Regimen Total Risk Factor Score Risk Level Prophylaxis Regimen 0-1 Low Early ambulation 2 Moderate Order ONE of the following: *Sequential Compression Device (SCD) *Heparin 5000 units SQ BID 3-4 Higher Order ONE of the following medications: *Heparin 5000 units SQ TID *Enoxaparin/Lovenox 40 mg SQ daily (WT < 150 kg, CrCl > 30 mL/min) *Enoxaparin/Lovenox 30 mg SQ daily (WT < 150 kg, CrCl > 10-29 mL/min) *Enoxaparin/Lovenox 30 mg SQ BID (WT < 150 kg, CrCl > 30 mL/min) AND/OR *Sequential Compression Device (SCD) 5 or more Highest Order ONE of the following medications: *Heparin 5000 units SQ TID (Preferred with Epidurals) *Enoxaparin/Lovenox 40 mg SQ daily (WT < 150 kg, CrCl > 30 mL/min) *Enoxaparin/Lovenox 30 mg SQ daily (WT < 150 kg, CrCl > 10-29 mL/min) *Enoxaparin/Lovenox 30 mg SQ BID (WT < 150 kg, CrCl > 30 mL/min) AND *Sequential Compression Device (SCD) Assessment and Plan Assessment and Plan 72 y/o with chronic history of HTN, DM, ESRD, chronic foot wounds presents from podiatry clinic for evaluation. Will admit upon podiatry recs for possible surgical intervention. Problem List: (1) Foot ulcer, right ICD Codes: L97.519 - Non-pressure chronic ulcer of other part of right foot with unspecified severity Status: Acute Plan: Patient presents with chronic right foot wounds. Has had debridement and oral antibiotics in the past. Failed outpatient treatment, presented today due to podiatry recommendations. WBC 9.4. Vitals stable. CRP 4.2 Foot x-ray: osteopenia, no acute bony abnormality. -Start Vancomycin-pharmacy consulted -Zosyn IV 2.25 IV q8H due to ESRD -Podiatry consulted -NPO for possible surgical intervention -Wound care as needed -will check cultures from surgery today. unclear if she could have Osteo. (2) ESRD (end stage renal disease) on dialysis ICD Codes: N18.6 - End stage renal failure on dialysis; Z99.2 - Dependence on renal dialysis Status: Chronic Plan: Patient on dialysis 3 days a week[address] Sees Dr. Buchanan, surgical garment inspector outpatient. No urine output BUN 64, Cr 6.85. -Nephrology consulted -Will need dialysis in hospital -Monitor I/O -Avoid nephrotoxic agents (3) Diabetes mellitus ICD Codes: E11.9 - Type 2 diabetes mellitus without complications Status: Chronic Plan: History of long-term diabetes on insulin at home -Sliding scale insulin, while NPO -Monitor accuchecks -May need basal insulin, once eating again -dialysis pts sometimes need much smaller doses of insulin than they needed before dialysis (4) Hypertension ICD Codes: I10 - Hypertension Status: Chronic Plan: BP 189/83 on admission -Continue home amlodipine -Regular vitals, may need PRN once pts have dialysis their BPs often drop so will watch to see how her BPs are (5) Hypothyroidism ICD Codes: E03.9 - Hypothyroidism Status: Chronic Plan: Continue home Synthroid (6) FEN Status: Acute Plan: Fluids: None, on dialysis Electrolytes: monitor, replace PRN Nutrition: NPO until after surgery DVT ppx: hold chemoppx due to surgery, SCDs Problem Qualifiers (1) Foot ulcer, right: Qualified Codes: L97.512 - Non-pressure chronic ulcer of other part of right foot with fat layer exposed (2) Diabetes mellitus: Qualified Codes: E11.42 - Type 2 diabetes mellitus with diabetic polyneuropathy ; Z79.4 - longterm (current) use of insulin (3) Hypertension: Qualified Codes: I10 - Essential (primary) hypertension (4) Hypothyroidism: Qualified Codes: E03.9 - Hypothyroidism, unspecified Teresa Wang MD Sep 07, 2017 13:30
[2017-09-07] MEDS ORDERED: DO NOT ADM ANY ANTICOAGULANT DRUGS PRN (14:00)
[2017-09-07] MEDS: EPOETIN ALFA 10,000 UNITS/ML VIAL IV PUSH PRN (15:04)
[2017-09-07] MEDS: GELATIN 12 MM/7 MM FOAM TOP PRN (15:05)
[2017-09-07] MEDS: VANCOMYCIN INJ 1,000 MG in SODIUM CHLOR 0.9% 250 ML INJ 250 ML IV SCH (15:05)
--- NOTE | 2017-09-07 15:59 | PD.CAR.PN ---
CVT Progress Note Subjective/Hospital Course: Consult received Full dictation to follow For podiatry debridement Saturday and after that we will evaluate as far as salvageability of the leg is concerned Thanks J Objective: Vital Signs Date Time Temp Pulse Resp B/P (MAP) Pulse Ox O2 Delivery O2 Flow Rate FiO2 09/07/17 13:31 79 16 165/77 (106) 98 Nasal Cannula 3 09/07/17 13:28 99 Nasal Cannula 3.00 09/07/17 13:13 86 16 152/71 (98) 99 Nasal Cannula 3 09/07/17 13:05 97.5 90 16 162/74 (103) 100 Nasal Cannula 3 09/07/17 12:00 97.7 71 16 159/71 (100) 98 09/07/17 08:00 97.5 71 15 131/61 (84) 92 09/06/17 23:57 97.3 80 16 168/77 (107) 98 09/06/17 21:48 09/06/17 19:40 98 Room Air 09/06/17 18:56 98.0 84 16 189/83 (118) 97 Room Air Labs: Laboratory Tests Test 09/07/17 07:45 White Blood Count 7.4 TH/MM3 (4.0-11.0) Red Blood Count 2.83 MIL/MM3 (4.00-5.30) Hemoglobin 7.2 GM/DL (11.6-15.3) Hematocrit 23.1 % (35.0-46.0) Mean Corpuscular Volume 81.7 FL (80.0-100.0) Mean Corpuscular Hemoglobin 25.5 PG (27.0-34.0) Mean Corpuscular Hemoglobin Concent 31.2 % (32.0-36.0) Red Cell Distribution Width 20.1 % (11.6-17.2) Platelet Count 310 TH/MM3 (150-450) Mean Platelet Volume 9.3 FL (7.0-11.0) Neutrophils (%) (Auto) 63.5 % (16.0-70.0) Lymphocytes (%) (Auto) 20.3 % (9.0-44.0) Monocytes (%) (Auto) 8.9 % (0.0-8.0) Eosinophils (%) (Auto) 6.9 % (0.0-4.0) Basophils (%) (Auto) 0.4 % (0.0-2.0) Neutrophils # (Auto) 4.7 TH/MM3 (1.8-7.7) Lymphocytes # (Auto) 1.5 TH/MM3 (1.0-4.8) Monocytes # (Auto) 0.7 TH/MM3 (0-0.9) Eosinophils # (Auto) 0.5 TH/MM3 (0-0.4) Basophils # (Auto) 0.0 TH/MM3 (0-0.2) CBC Comment DIFF FINAL Differential Comment Erythrocyte Sedimentation Rate 48 mm/hr (0-30) Blood Urea Nitrogen 71 MG/DL (7-18) Creatinine 7.73 MG/DL (0.50-1.00) Random Glucose 106 MG/DL (74-106) Total Protein 6.5 GM/DL (6.4-8.2) Albumin 2.2 GM/DL (3.4-5.0) Calcium Level 8.2 MG/DL (8.5-10.1) Alkaline Phosphatase 147 U/L (45-117) Aspartate Amino Transf (AST/SGOT) 13 U/L (15-37) Alanine Aminotransferase (ALT/SGPT) 7 U/L (10-53) Total Bilirubin 0.4 MG/DL (0.2-1.0) Sodium Level 140 MEQ/L (136-145) Potassium Level 5.2 MEQ/L (3.5-5.1) Chloride Level 104 MEQ/L (98-107) Carbon Dioxide Level 23.2 MEQ/L (21.0-32.0) Anion Gap 13 MEQ/L (5-15) Estimat Glomerular Filtration Rate 6 ML/MIN (>89) Result Diagram: 09/07/17 0745 09/07/17 0745 Amlaia De La Cruz MD Sep 07, 2017 15:59
--- NOTE | 2017-09-07 18:25 | RADRPT ---
EXAM DATE/TIME: 09/07/2017 17:51 [facility] COMPARISON: No previous studies available for comparison. INDICATIONS : Infection. MEDICAL HISTORY : Renal disease, end stage. Diabetes mellitus type 2. Hypertension. SURGICAL HISTORY : Hysterectomy. Left great toe amputation. ENCOUNTER: Initial ACUITY: 1 day PAIN SCORE: 0/10 LOCATION: Right foot TECHNIQUE: Multiplanar, multisequence MRI examination was performed without contrast. FINDINGS: Multifocal soft tissue ulceration demonstrated, most conspicuous plantar to the first metatarsal base and lateral to Lisfranc joint. No drainable abscesses are demonstrated. Marrow edema and patchy T1 signal abnormality now seen in the base of the fifth metatarsal peroneus b antoinette remains intact. There is increased marrow edema and patchy T1 signal abnormality in the medial and intermediate cunei forms and the third metatarsal base, most likely reactive. There is worsening marrow edema and associated patchy T1 signal abnormality and cortical indistinctne ss, head of the proximal phalanx and distal portions of the distal phalanx of the great toe. Persistent marrow edema of both sesamoids. There is associated T1 signal abnormality, fibular much wo rse than tibial. Fibular sesamoid signal changes are worse. CONCLUSION: 1. Osteomyelitis has developed at the fifth metatarsal base. 2. Slightly worsening osteomyelitis great toe head of the proximal phalanx and distal half of the dis misty phalanx. 3. Worsening osteomyelitis of the fibular sesamoid. There superficial osteomyelitis of the tibial ses amoid not significantly changed. 4. No drainable abscess. 5. Signal changes of the medial and intermediate cuneiforms and the third metatarsal base are most li karl reactive. Ankle MRI to follow and please refer to that report for ankle and hindfoot findings. Jacob Hall MD on September 07, 2017 at 18:14 Board Certified Radiologist. This report was verified electronically.
--- NOTE | 2017-09-07 19:11 | MB ---
cc: MD ARON,[facility] DATE OF CONSULTATION: 09/07/2017. REASON FOR CONSULTATION: Peripheral vascular ischemia of the right leg with gangrene of the right foot, diabetes mellitus, chronic renal failure, coronary artery disease. HISTORY OF PRESENT ILLNESS: This 72-year-old black female presented about two to three months ago with a right foot infection. She was seen in the fur cutting machine operator's office by Dr. Galvez who sent her over for admission now. The patient was noted to have drainage of purulent material from the foot and posterior heel. She underwent surgical exploration and wound VAC placement at the time and the thing has been healing; however, the patient is very noncompliant with care and hence, the additional problems. PAST MEDICAL HISTORY: 1. Diabetes mellitus. 2. Renal failure. 3. Diabetic neuropathy. 4. Hypothyroidism. 5. Hypertension. 6. Hepatitis C. 7. Cataracts. 8. GI bleed. PAST SURGICAL HISTORY: 1. Left hallux amputation. 2. Right recurrent foot abscesses with drainage and gangrene of the right foot. MEDICATIONS: The patient is on multiple medications, which she is very noncompliant with. SOCIAL HISTORY: She smokes still one pack a day. She does not drink. PHYSICAL EXAMINATION: GENERAL: The physical examination reveals a 72-year-old female. The patient is talking to me but looking at her menu for food and is sort of annoyed by the presence of doctors. HEAD, EYES, EARS, NOSE, THROAT: Normocephalic. No trauma to the head. Pupils equal and reactive. Extraocular muscles intact. NECK: Bilateral carotid pulses. Left-sided faint bruit. CHEST: Clear. Bilateral breath sounds decreased over both lung turner consistent with moderate COPD. The patient has pulmonary cachexia with loss of chest wall musculature already. HEART: Regular rhythm. ABDOMEN: Soft, patulous, active bowel sounds. EXTREMITIES: The patient has palpable femoral pulses bilaterally. Dopplerable popliteal pulses. On the left side, Dopplerable posterior tibial pulse. The dorsalis pedis is not present. On the right side, the dorsalis pedis and posterior tibial pulses are weak. There is an ulcer on the mid right foot and a wound around the ankle with some drainage from the heel. IMPRESSION: Patient with severe vascular changes, diabetic neuropathy and infection of the foot. RECOMMENDATIONS / PLAN: At this point, a valiant effort will be made by podiatry to save this, and if things do not go well, the patient will need a below-knee amputation. I will be available and will follow the patient with you. Thank you very much for the referral. Amalia BURNS /4:21 PM /6:59 PM
--- NOTE | 2017-09-07 19:26 | RADRPT ---
EXAM DATE/TIME: 09/07/2017 17:51 [facility] COMPARISON: MRI FOOT RIGHT W/O CONTRAST, September 07, 2017, 17:51. INDICATIONS : Infection. MEDICAL HISTORY : Renal disease, end stage. Diabetes mellitus type 2. Hypertension. SURGICAL HISTORY : Hysterectomy. ENCOUNTER: Initial ACUITY: 2 months PAIN SCORE: 0/10 LOCATION: Right ankle TECHNIQUE: Multiplanar, multisequence MRI examination was performed without contrast. FINDINGS: Broad soft tissue ulcer with deep soft tissue edema and induration seen laterally and also posteromed ially. 2.8 cm mildly organized fluid seen in the posterolateral gutter, series 8 image 16 and series 10 image 23. Laterally, peroneal tendons appear exposed, especially longus. No rupture. Patchy marrow edema and T1 signal abnormality scattered throughout the calcaneus compatible with oste omyelitis. Similar findings involve the distal 4 cm of the fibula. An approximately 2 cm area of fahad ow edema and T1 signal abnormality is seen posteromedially of the talus, also of concern for osteomye litis; this is where flexor hallucis longus passes by and could conceivably be reactive signal change . There is moderate to severe tendinosis of the flexor hallucis longus, especially just proximal to t his level. Mild thickening of Achilles, intact. Plantar fascia also intact. CONCLUSION: 1. Severe soft tissue ulceration laterally and posteromedially of the ankle/hindfoot. 2. 2.8 cm fluid collection in the posterolateral gutter, potentially an abscess. 3. Osteomyelitis of the calcaneus, scattered/patchy but most of the bone is involved, especially late rally. 4. Also osteomyelitis of the distal 4 cm of the fibula. 5. Possible osteomyelitis focally of the posteromedial aspect of the talus. Please see above. 6. Exposed peroneal tendons but grossly intact. Considerable tendinosis of the flexor hallucis longus at the level of the distal leg and certainly could be infectious given the other findings. Patient had MRI of the right foot today. Please refer to that report for midfoot and forefoot finding s. Jacob Hall MD on September 07, 2017 at 19:13 Board Certified Radiologist. This report was verified electronically.
[2017-09-07 19:43] VITALS: O2SAT 98
[2017-09-07 20:00] VITALS: BP 164/72; PULSE 98; RESP 18; TEMP 99; O2SAT 91
[2017-09-07] MEDS ORDERED: MIRTAZAPINE 15 MG TAB PO SCH (21:00)
[2017-09-07 21:04] LABS: HEMATOCRIT 27.1 % (35.0-46.0); HEMOGLOBIN 8.6 GM/DL (11.6-15.3)
[2017-09-07] MEDS: hydrOXYzine HCL 25 MG TAB PO SCH (21:24)
[2017-09-08] VITALS: BP 115/58; PULSE 91; RESP 18; TEMP 99.6; O2SAT 93
[2017-09-08 04:00] VITALS: BP 150/64; PULSE 84; RESP 18; TEMP 98.9; O2SAT 90
[2017-09-08] MEDS: LEVOTHYROXINE SODIUM 75 MCG TAB PO SCH (06:07)
[2017-09-08] MEDS: PIPERACIL-TAZO 2.25 GM PREMIX 50 ML IV SCH ×3 (06:08→22:01)
[2017-09-08 08:00] VITALS: BP 162/72; PULSE 81; RESP 16; TEMP 97.1; O2SAT 99
[2017-09-08] MEDS: INSULIN ASPART SUPPLEMENTAL SCALE SQ SCH ×4 (08:15→21:00)
[2017-09-08] MEDS: ASPIRIN EC 81 MG TABEC PO SCH (09:00)
[2017-09-08] MEDS: VITAMIN B CMPLX/VITC/FOLIC AC CAP PO SCH (09:10)
[2017-09-08] MEDS: PANTOPRAZOLE SOD 40 MG DELAYED RELEASE TAB PO SCH (09:10)
[2017-09-08] MEDS: DOCUSATE SODIUM 50 MG/SENNA 8.6 MG TAB PO SCH ×2 (09:10→22:02)
--- NOTE | 2017-09-08 09:12 | HHI.NPPN ---
Subjective Interval History Underwent debridement of right foot ulcer by podiatry. Seen by Vascular surgeon as well. More debridement is planned tomorrow. She very well may need right BKA. Had dialysis yesterday. Objective Data Data Vital Signs Date Time Temp Pulse Resp B/P (MAP) Pulse Ox O2 Delivery O2 Flow Rate FiO2 09/08/17 04:00 98.9 84 18 150/64 (92) 90 09/08/17 00:00 99.6 91 18 115/58 (77) 93 09/07/17 20:00 99.0 98 18 164/72 (102) 91 09/07/17 19:43 98 Nasal Cannula 3.00 09/07/17 13:31 79 16 165/77 (106) 98 Nasal Cannula 3 09/07/17 13:28 99 Nasal Cannula 3.00 09/07/17 13:13 86 16 152/71 (98) 99 Nasal Cannula 3 09/07/17 13:05 97.5 90 16 162/74 (103) 100 Nasal Cannula 3 09/07/17 12:00 97.7 71 16 159/71 (100) 98 -: 09/07/17 2042 09/07/17 0745 Microbiology 09/07/17 Fungal Smear, Received Pending 09/07/17 Fungal Culture, Received Pending 09/07/17 Acid Fast Stain, Received Pending 09/07/17 Mycobacterial Culture, Received Pending 09/07/17 Gram Stain, Received Pending 09/07/17 Wound Culture, Received Pending 09/07/17 Fungal Smear, Received Pending 09/07/17 Fungal Culture, Received Pending 09/07/17 Acid Fast Stain, Received Pending 09/07/17 Mycobacterial Culture, Received Pending 09/07/17 Gram Stain, Received Pending 09/07/17 Wound Culture, Received Pending 09/07/17 Acid Fast Stain, Received Pending 09/07/17 Mycobacterial Culture, Received Pending 09/07/17 Gram Stain, Received Pending 09/07/17 Wound Culture, Received Pending 09/07/17 Fungal Smear, Received Pending 09/07/17 Fungal Culture, Received Pending Physical Exam General Appearance: No Acute Distress, Malnourished Throat Throat Exam: Oral Mucosa [place] & Moist Pulmonary Resp Exam: Clear Bilaterally Cardiology CV Exam: Regular, Normal Sinus Rhythm Gastrointestinal/Abdomen GI Exam: Soft, Non-Tender Genitourinary Exam: Clear Urine Musculoskeletal MS Remarks feet in dressings. Assessment/Plan Problem List: (1) ESRD (end stage renal disease) on dialysis ICD Codes: N18.6 - End stage renal failure on dialysis; Z99.2 - Dependence on renal dialysis Status: Chronic Plan: Usually dialyzes MWF, dialyzed on 09/07/17 as she had missed treatment on Saturday. Dialysis again tomorrow. Needs high protein diet. Fluid restriction to 1500 ml/day. Avoid IV, BP in the access arm. Daily weights. Low phosphorus diet. (2) Hypertension ICD Codes: I10 - Hypertension Status: Chronic Plan: monitor BP, continue medications. (3) Foot ulcer, right ICD Codes: L97.519 - Non-pressure chronic ulcer of other part of right foot with unspecified severity Status: Acute Plan: s/p debridement. More debridement planned on Saturday. Seen by vascular surgery. May need right BKA. (4) Metabolic bone disease ICD Codes: E88.9 - Metabolic disorder, unspecified; M90.80 - Osteopathy in diseases classified elsewhere, unspecified site Status: Acute Plan: monitor phosphorus intermittently. Use binders as appropriate. (5) Diabetes mellitus ICD Codes: E11.9 - Type 2 diabetes mellitus without complications Status: Chronic Plan: insulin coverage while hospitalized, maintain blood glucose between 140 and 180 Problem Qualifiers (1) Hypertension: Qualified Codes: I10 - Essential (primary) hypertension (2) Foot ulcer, right: Qualified Codes: L97.512 - Non-pressure chronic ulcer of other part of right foot with fat layer exposed (3) Diabetes mellitus: Qualified Codes: E11.42 - Type 2 diabetes mellitus with diabetic polyneuropathy ; Z79.4 - nursing home (current) use of insulin Dao Greene MD Sep 08, 2017 09:12
[2017-09-08] MEDS: SODIUM CHLORIDE 0.9% FLUSH 10 ML FLUSH IV FLUSH SCH ×2 (09:13→22:02)
[2017-09-08 09:22] LABS: AUTOMATED NEUTROPHIL # 5.2 TH/MM3 (1.8-7.7); BASOPHIL % 0.4 % (0.0-2.0); EOSINOPHIL # 0.4 TH/MM3 (0-0.4); EOSINOPHIL % 5.2 % (0.0-4.0); HEMATOCRIT 22.5 % (35.0-46.0); HEMOGLOBIN 7.3 GM/DL (11.6-15.3); LYMPH % 20.7 % (9.0-44.0); LYMPHOCYTE # 1.7 TH/MM3 (1.0-4.8); MEAN CELL VOLUME 81.9 FL (80.0-100.0); MEAN CORPUSCULAR HEMOGLOBIN 26.4 PG (27.0-34.0); MEAN CORPUSCULAR HGB CONC 32.2 % (32.0-36.0); MEAN PLATELET VOLUME 9.2 FL (7.0-11.0); MONO % 10.4 % (0.0-8.0); MONOCYTE # 0.9 TH/MM3 (0-0.9); NEUT % 63.3 % (16.0-70.0); PLATELET COUNT 297 TH/MM3 (150-450); RED BLOOD COUNT 2.75 MIL/MM3 (4.00-5.30); RED CELL DISTRIBUTION WIDTH 19.9 % (11.6-17.2); WHITE BLOOD COUNT 8.2 TH/MM3 (4.0-11.0)
[2017-09-08 09:46] LABS: BICARBONATE 28.8 MEQ/L (21.0-32.0); CALCIUM 7.9 MG/DL (8.5-10.1); CREATININE 5.78 MG/DL (0.50-1.00)
--- NOTE | 2017-09-08 09:50 | HHI.FPPN ---
Subjective Remarks No acute events overnight. VS unremarkable except for intermittently elevated BP. This morning patient reports that she is doing well and has not acute concerns. Denies CP, SOB. (Megha Fowler MD, R3) Objective Vitals Vital Signs Date Time Temp Pulse Resp B/P (MAP) Pulse Ox O2 Delivery O2 Flow Rate FiO2 09/08/17 04:00 98.9 84 18 150/64 (92) 90 09/08/17 00:00 99.6 91 18 115/58 (77) 93 09/07/17 20:00 99.0 98 18 164/72 (102) 91 09/07/17 19:43 98 Nasal Cannula 3.00 09/07/17 13:31 79 16 165/77 (106) 98 Nasal Cannula 3 09/07/17 13:28 99 Nasal Cannula 3.00 09/07/17 13:13 86 16 152/71 (98) 99 Nasal Cannula 3 09/07/17 13:05 97.5 90 16 162/74 (103) 100 Nasal Cannula 3 09/07/17 12:00 97.7 71 16 159/71 (100) 98 I/O 09/07/17 09/07/17 09/07/17 09/08/17 09/08/17 09/08/17 07:00 15:00 23:00 07:00 15:00 23:00 Intake Total 290 ml 450 ml 300 ml Output Total 10 ml 3000 ml Balance 290 ml 440 ml -2700 ml Intake Oral 240 ml IV Total 50 ml 50 ml 300 ml Other 400 ml Output Hemodialysis 3000 ml Estimated Blood Loss 10 ml # Voids 1 # Bowel Movements 1 (Megha Fowler MD, R3) Result Diagram: 09/07/17204109/07/17744 Objective Remarks GEN: Well-developed, well-nourished patient. No acute distress. CV: Regular rate and rhythm without obvious murmurs LUNGS: Clear to auscultation bilaterally. Normal respiratory effort. No wheezes , rales, rhonchi. GI: nondistended EXT: No edema. No calf tenderness. Right foot wrapped in Sarath bandage. Clean and dry. NEURO/PSYCH: Awake, alert. Appropriate insight and judgment. Normal speech (Megha Fowler MD, R3) A/P Assessment and Plan 72 y/o with chronic history of HTN, DM, ESRD, chronic foot wounds presents from podiatry clinic for evaluation. Admitted for osteomyelitis with debridement and possible amputation. Discharge Planning Undetermined at this time, pending definitive treatment of osteomyelitis. wdw Dr. Wang ([facility], R[facility]) Attending Attestation Patient seen and examined. Case reviewed and discussed with the resident team. Agree with plan of care as discussed with me and documented in the resident note. she is doing well and sitting up in bed without problems. discussed with her what her discharge plans would be and she very much wants to go home with her 2 daughters helping to care for her even if she is in a wheelchair. will see what the biopsies show as far as what abx would be needed. 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 Bentley). Was hospitalized in July 2017 and underwent surgical exploration and had a wound VAC placed at that time. Admitted per the recommendation of podiatry due to worsening ulcer/wounds. MRI significant for osteomyelitis and multiple bones of the foot and ankle. -Wound cultures pending -Blood cultures NGTD -Will consult ID pending results of debridement on 09/09 and if BKA will be performed Podiatry consulted: appreciate recommendations * 09/07/17: Debridement of ulcers on right foot/ankle 3 * Plan 40 or on 09/09 for repeat debridement and to determine if wound debridement/salvage/grafting possible. * Consulted Dr. Reaves for possible BKA if patient is agreeable Vascular consulted: appreciate recommendations * Pt with severe vascular changes, diabetic neuropathy * will evaluate for salvageability of the leg after treatment by podiatry. If things do no go well, will need BKA. Imaging: * MRI foot: Osteomyelitis develop at the fifth metatarsal base. Slight worsening osteomyelitis of the great toe head of the proximal phalanx and distal half of the distal phalanx. Worsening osteomyelitis of the fibular sesamoid. The superficial osteomyelitis of the tibial sesamoid not significantly changed. No drainable abscess. * MRI ankle: Severe soft tissue ulceration laterally and posteromedially of the ankle/hindfoot. Fluid collection in the posterior lateral gutter, potentially an abscess. Osteomyelitis of the calcaneus. Osteomyelitis of the distal fibula possible osteomyelitis focally of the posterior medial aspect of the talus. * Foot x-ray: Osteopenia, no acute bony abnormality. Medications * Vancomycin (09/06- per nephrology dosing/titration * Zosyn (09/07- (2) ESRD (end stage renal disease) on dialysis ICD Codes: N18.6 - End stage renal failure on dialysis; Z99.2 - Dependence on renal dialysis Status: Chronic Plan: Dialysis Saturday typically. Missed dialysis the day of admission. Sees Dr. Buchanan, fellmongery worker outpatient. No urine output Nephrology consulted: Appreciate recommendations * Resume dialysis 3x/wk * Monitor phosphorus intermittently, use binders as appropriate. * Fluid restriction (3) Diabetes mellitus ICD Codes: E11.9 - Type 2 diabetes mellitus without complications Status: Chronic Plan: History of long-term diabetes on insulin at home -Sliding scale insulin -Monitor accuchecks -May need basal insulin, once eating again on a more routine basis as more surgeries are expected (4) Hypertension ICD Codes: I10 - Hypertension Status: Chronic Plan: BP elevated on admission the patient did miss dialysis on day of admission. Expect BP to improve as she resumes routine medications and dialysis. -Continue home amlodipine (5) Hypothyroidism ICD Codes: E03.9 - Hypothyroidism Status: Chronic Plan: Continue home Synthroid (6) FEN Status: Acute Plan: Fluids: None, on dialysis Electrolytes: monitor, replace PRN Nutrition: NPO after midnight DVT ppx: hold chemoppx due to surgery, SCDs (Megha Fowler MD, R3) Problem Qualifiers (1) Diabetes mellitus: Qualified Codes: E11.42 - Type 2 diabetes mellitus with diabetic polyneuropathy ; Z79.4 - [facility] (current) use of insulin (2) Hypertension: Qualified Codes: I10 - Essential (primary) hypertension (3) Hypothyroidism: Qualified Codes: E03.9 - Hypothyroidism, unspecified Megha Fowler MD, R3 Sep 08, 2017 09:50 Teresa Wang MD Sep 08, 2017 13:43
[2017-09-08 12:00] VITALS: BP 168/81; PULSE 84; RESP 17; TEMP 97; O2SAT 99
[2017-09-08 16:00] VITALS: BP 140/65; PULSE 78; RESP 17; TEMP 96.1; O2SAT 97
[2017-09-08 20:00] VITALS: BP 171/79; PULSE 82; RESP 16; TEMP 97.4; O2SAT 98
--- NOTE | 2017-09-08 21:52 | PD.POD ---
Subjective Podiatric Problems R foot/ankle wounds and osteomyelitis, s/p debridement of ulcers right foot/ ankle 09/07/17 Dr Mello Past Med/Surg/Social History Past Medical History Endocrine: REPORTS HX OF: Diabetes mellitus Cardiovascular: REPORTS HX OF: Hypertension Gastrointestinal: REPORTS HX OF: Liver disease Genitourinary: REPORTS HX OF: Kidney failure Past Surgical History Gastrointestinal: DENIES HX OF: Colectomy, total Gynecologic: DENIES HX OF: Hysterectomy Musculoskeletal: REPORTS HX OF: Other musculoskeletal srg (amputation of the left hallux) Breast: DENIES HX OF: Mastectomy, bilateral, Mastectomy, left, Mastectomy, right Social History Smoking Status: Current Every Day Smoker Objective Vital Signs Vital Signs Date Time Temp Pulse Resp B/P (MAP) Pulse Ox O2 Delivery O2 Flow Rate FiO2 09/08/17 20:00 97.4 82 16 171/79 (109) 98 09/08/17 16:00 96.1 78 17 140/65 (90) 97 09/08/17 12:00 97.0 84 17 168/81 (110) 99 09/08/17 08:00 97.1 81 16 162/72 (102) 99 09/08/17 04:00 98.9 84 18 150/64 (92) 90 09/08/17 00:00 99.6 91 18 115/58 (77) 93 Coded Allergies: *MDRO Multi-Drug Resistant Organism (Verified Allergy, Unknown, 09/06/17) MRSA Medications and IVs Current Medications Medications (Trade) Dose Ordered Sig/Rita Route Start Time Stop Time Status Last Admin (NS Flush) 2 ml UNSCH PRN IV FLUSH 09/06/17 21:45 (NS Flush) 2 ml BID IV FLUSH 09/07/17 09:00 09/08/17 09:13 (Tylenol) 650 mg Q4H PRN PO 09/06/17 21:45 (Zofran Inj) 4 mg Q6H PRN IVP 09/06/17 21:45 (Narcan Inj) 0.4 mg UNSCH PRN IV PUSH 09/06/17 21:45 (Velma-Colace) 1 tab BID PO 09/07/17 09:00 09/08/17 09:10 (Milk Of Magnesia Liq) 30 ml Q12H PRN PO 09/06/17 21:45 (Senokot) 17.2 mg Q12H PRN PO 09/06/17 21:45 (Dulcolax Supp) 10 mg DAILY PRN RECTAL 09/06/17 21:45 (Lactulose Liq) 30 ml DAILY PRN PO 09/06/17 21:45 (D50w (Vial) Inj) 50 ml UNSCH PRN IV PUSH 09/06/17 22:00 (Glucagon Inj) 1 mg UNSCH PRN OTHER 09/06/17 22:00 (NovoLOG SUPPLEMENTAL SCALE) 1 ACHS SLIDING SCALE SQ 09/07/17 08:00 09/08/17 12:45 (Proair Hfa Inh) 2 puff Q4H PRN INH 09/06/17 22:00 (Norvasc) 10 mg DAILY PO 09/07/17 09:00 09/08/17 09:10 (Ecotrin Ec) 81 mg DAILY PO 09/07/17 09:00 09/08/17 09:00 (Atarax) 25 mg HS PO 09/07/17 21:00 09/07/17 21:24 (Synthroid) 75 mcg DAILY@0600 PO 09/07/17 06:00 09/08/17 06:07 (Protonix) 40 mg DAILY PO 09/07/17 09:00 09/08/17 09:10 (Nephrocaps) 1 cap DAILY PO 09/07/17 09:00 09/08/17 09:10 Piperacillin Sod/ Tazobactam Sod 50 ml @ 100 mls/hr Q8H IV 09/06/17 22:00 09/08/17 14:46 (Remeron) 15 mg HS PO 09/07/17 00:00 09/07/17 21:24 (Gardiner 5-325 Mg) 1 tab Q4H PRN PO 09/07/17 00:00 09/07/17 06:44 Sodium Chloride 500 ml @ 30 mls/hr [id number] PRN IV 09/07/17 01:00 09/10/17 00:59 (Betadine 5% Antisepsis Kit) 1 applic AUDIO NARRATOR PRN EACH NARE 09/07/17 01:00 09/10/17 00:59 (Chlorhexidine 2% Cloth) 3 pack AUDIO NARRATOR PRN TOPICAL 09/07/17 01:00 09/10/17 00:59 Sodium Chloride 1,000 ml @ 0 mls/hr Q0M PRN OTHER 09/07/17 09:20 (Heparin Inj) 8,000 units UNSCH PRN IV FLUSH 09/07/17 09:30 Sodium Chloride 1,000 ml @ 200 mls/hr Q5H PRN IV 09/07/17 09:20 Sodium Chloride 1,000 ml @ 0 mls/hr Q0M PRN OTHER 09/07/17 09:20 (Mannitol Inj) 12.5 gm UNSCH PRN IV 09/07/17 09:30 Albumin Human 100 ml @ 60 mls/hr UNSCH PRN IV 09/07/17 09:30 (NS Flush) 5 ml UNSCH PRN IV FLUSH 09/07/17 09:30 (Heparin Inj) UNSCH PRN .XX 09/07/17 09:30 (Gentamicin Inj) 20 mg UNSCH PRN OTHER 09/07/17 09:30 (Zofran Inj) 4 mg UNSCH PRN IV PUSH 09/07/17 09:30 (Tylenol) 650 mg UNSCH PRN PO 09/07/17 09:30 (Benadryl) 25 mg UNSCH PRN PO 09/07/17 09:30 (Nitrostat Sl) 0.4 mg UNSCH PRN SL 09/07/17 09:30 (Catapres) 0.1 mg UNSCH PRN PO 09/07/17 09:30 (Epogen Inj) 10,000 units UNSCH PRN IV PUSH 09/07/17 09:30 09/07/17 15:04 (Gelfoam 12 Mm/7 Mm Top) 1 foam UNSCH PRN TOP 09/07/17 09:30 09/07/17 15:05 Vancomycin HCl 1000 mg/Sodium Chloride 250 ml @ 250 mls/hr WITH DIALYSIS IV 09/07/17 09:30 09/07/17 15:05 Other Results Last 72 hours Impressions Foot MRI 09/07/17 0000 Signed Impressions: Service Date/Time: Thursday, September 07, 2017 17:51 - CONCLUSION: 1. Osteomyelitis has developed at the fifth metatarsal base. 2. Slightly worsening osteomyelitis great toe head of the proximal phalanx and distal half of the distal phalanx. 3. Worsening osteomyelitis of the fibular sesamoid. There superficial osteomyelitis of the tibial sesamoid not significantly changed. 4. No drainable abscess. 5. Signal changes of the medial and intermediate cuneiforms and the third metatarsal base are most likely reactive. Ankle MRI to follow and please refer to that report for ankle and hindfoot findings. Jacob Hall MD Ankle MRI 09/07/17 0000 Signed Impressions: Service Date/Time: Thursday, September 07, 2017 17:51 - CONCLUSION: 1. Severe soft tissue ulceration laterally and posteromedially of the ankle/hindfoot. 2. 2.8 cm fluid collection in the posterolateral gutter, potentially an abscess. 3. Osteomyelitis of the calcaneus, scattered/patchy but most of the bone is involved, especially laterally. 4. Also osteomyelitis of the distal 4 cm of the fibula. 5. Possible osteomyelitis focally of the posteromedial aspect of the talus. Please see above. 6. Exposed peroneal tendons but grossly intact. Considerable tendinosis of the flexor hallucis longus at the level of the distal leg and certainly could be infectious given the other findings. Patient had MRI of the right foot today. Please refer to that report for midfoot and forefoot findings. Jacob Hall MD Chest X-Ray 09/06/17 1926 Signed Impressions: Service Date/Time: Wednesday, September 06, 2017 19:55 - CONCLUSION: 1. Patchy subsegmental mostly basilar airspace disease with cardiomegaly. No effusion. Daniel Hinkle MD Foot X-Ray 09/06/17 0000 Signed Impressions: Service Date/Time: Wednesday, September 06, 2017 20:00 - CONCLUSION: 1. Osteopenia. No acute bony abnormality. Daniel Hinkle MD Objective Remarks Microbiology Date/Time Source Procedure Growth Status 09/06/17 19:45 Blood Peripheral Aerobic Blood Culture - Preliminary NO GROWTH IN 2 DAYS Resulted 09/06/17 19:45 Blood Peripheral Anaerobic Blood Culture - Preliminary NO GROWTH IN 2 DAYS Resulted 09/07/17 13:31 Wound Ankle Fungal Smear - Final NO FUNGAL ELEMENTS SEEN. Resulted 09/07/17 13:31 Wound Ankle Fungal Culture Pending Resulted Corynebacteria from ankle and foot wounds Assessment & Plan A/P s/p debridement of ulcers right foot/ankle, Dr Mello 08/2717 I discussed with patient that my recommendation is for amputation in light of MRI findings, but patient wants to discuss with her doctor, Dr Galvez. Patient will remain NPO after breakfast tomorrow until she has conversation with Dr Galvez. Dr Galvez will discuss long-term treatment plans with patient tomorrow Nadir Mello DPM Sep 08, 2017 21:52
[2017-09-08] MEDS: MIRTAZAPINE 15 MG TAB PO SCH (22:01)
[2017-09-08] MEDS: hydrOXYzine HCL 25 MG TAB PO SCH (22:02)
[2017-09-08] MEDS ORDERED: CHLORHEXIDINE GLUCONATE 2 % 1 PACK (2 CLOTHS) TOPICAL PRN (23:45)
[2017-09-08] MEDS ORDERED: LACTATED RINGER'S 1000 ML IV PRN (23:45)
[2017-09-08] MEDS ORDERED: SODIUM CHLORID 0.9% 500 ML IV PRN (23:45)
[2017-09-08] MEDS ORDERED: POVIDONE IODINE 5% (ANTISEPSIS KIT) 4 APPLICATIONS EACH NARE PRN (23:45)
[2017-09-09] VITALS (10 sets, daily range): BP systolic 136–168; BP diastolic 58–78; PULSE 80–85; RESP 16–18; TEMP 96–98.6; O2SAT 93–100
[2017-09-09] MEDS: PIPERACIL-TAZO 2.25 GM PREMIX 50 ML IV SCH ×3 (05:30→22:21)
[2017-09-09] MEDS: LEVOTHYROXINE SODIUM 75 MCG TAB PO SCH (05:30)
[2017-09-09 07:41] LABS: BASOPHIL % 0.3 % (0.0-2.0); EOSINOPHIL # 0.6 TH/MM3 (0-0.4); EOSINOPHIL % 8.6 % (0.0-4.0); LYMPH % 22.1 % (9.0-44.0); LYMPHOCYTE # 1.5 TH/MM3 (1.0-4.8); MEAN CORPUSCULAR HEMOGLOBIN 26.6 PG (27.0-34.0); MEAN CORPUSCULAR HGB CONC 32.8 % (32.0-36.0); MEAN PLATELET VOLUME 9.1 FL (7.0-11.0); MONO % 10.7 % (0.0-8.0); MONOCYTE # 0.7 TH/MM3 (0-0.9); NEUT % 58.3 % (16.0-70.0); PLATELET COUNT 299 TH/MM3 (150-450); RED BLOOD COUNT 2.53 MIL/MM3 (4.00-5.30); RED CELL DISTRIBUTION WIDTH 19.5 % (11.6-17.2); WHITE BLOOD COUNT 6.8 TH/MM3 (4.0-11.0)
[2017-09-09 07:51] LABS: HEMATOCRIT 20.5 % (35.0-46.0); HEMOGLOBIN 6.7 GM/DL (11.6-15.3)
[2017-09-09] MEDS: INSULIN ASPART SUPPLEMENTAL SCALE SQ SCH ×4 (08:00→21:00)
[2017-09-09 08:04] LABS: BICARBONATE 27.7 MEQ/L (21.0-32.0); CALCIUM 7.5 MG/DL (8.5-10.1); CREATININE 6.89 MG/DL (0.50-1.00); PHOSPHORUS 5.1 MG/DL (2.5-4.9)
[2017-09-09] MEDS ORDERED: FUROSEMIDE 20 MG/2 ML VIAL IV PUSH ONE (08:15)
[2017-09-09] MEDS ORDERED: SODIUM CHLOR 0.9% 250 ML INJ 250 ML IV ONE (08:15)
--- NOTE | 2017-09-09 08:36 | HHI.PR ---
Subjective Remarks Patient seen bedside this a.m. Resting comfortably. Denies any calf pain. Denies any infectious symptoms. He is aware that she has serious infection to right foot and ankle. Objective Vital Signs Date Time Temp Pulse Resp B/P (MAP) Pulse Ox O2 Delivery O2 Flow Rate FiO2 09/09/17 00:25 98.6 80 16 153/67 (95) 97 09/08/17 22:18 Nasal Cannula 2.00 09/08/17 20:00 97.4 82 16 171/79 (109) 98 09/08/17 16:00 96.1 78 17 140/65 (90) 97 09/08/17 12:00 97.0 84 17 168/81 (110) 99 I/O 09/08/17 09/08/17 09/08/17 09/09/17 09/09/17 09/09/17 07:00 15:00 23:00 07:00 15:00 23:00 Intake Total 290 ml 290 ml Balance 290 ml 290 ml Intake Oral 240 ml 240 ml IV Total 50 ml 50 ml # Voids 0 2 # Bowel Movements 1 6 Result Diagram: 09/09/17 0702 09/09/17 0702 Imaging Last Impressions Foot MRI 09/07/17 0000 Signed Impressions: Service Date/Time: Thursday, September 07, 2017 17:51 - CONCLUSION: 1. Osteomyelitis has developed at the fifth metatarsal base. 2. Slightly worsening osteomyelitis great toe head of the proximal phalanx and distal half of the distal phalanx. 3. Worsening osteomyelitis of the fibular sesamoid. There superficial osteomyelitis of the tibial sesamoid not significantly changed. 4. No drainable abscess. 5. Signal changes of the medial and intermediate cuneiforms and the third metatarsal base are most likely reactive. Ankle MRI to follow and please refer to that report for ankle and hindfoot findings. Jacob Hall MD Ankle MRI 09/07/17 0000 Signed Impressions: Service Date/Time: Thursday, September 07, 2017 17:51 - CONCLUSION: 1. Severe soft tissue ulceration laterally and posteromedially of the ankle/hindfoot. 2. 2.8 cm fluid collection in the posterolateral gutter, potentially an abscess. 3. Osteomyelitis of the calcaneus, scattered/patchy but most of the bone is involved, especially laterally. 4. Also osteomyelitis of the distal 4 cm of the fibula. 5. Possible osteomyelitis focally of the posteromedial aspect of the talus. Please see above. 6. Exposed peroneal tendons but grossly intact. Considerable tendinosis of the flexor hallucis longus at the level of the distal leg and certainly could be infectious given the other findings. Patient had MRI of the right foot today. Please refer to that report for midfoot and forefoot findings. Jacob Hall MD Chest X-Ray 09/06/17 1926 Signed Impressions: Service Date/Time: Wednesday, September 06, 2017 19:55 - CONCLUSION: 1. Patchy subsegmental mostly basilar airspace disease with cardiomegaly. No effusion. Daniel Hinkle MD Foot X-Ray 09/06/17 0000 Signed Impressions: Service Date/Time: Wednesday, September 06, 2017 20:00 - CONCLUSION: 1. Osteopenia. No acute bony abnormality. Daniel Hinkle MD Procedures Status post debridement and irrigation performed by Dr. Gertrudis Mello on 09/07 Other Results Laboratory Tests Test 09/07/17 20:42 09/08/17 08:00 09/09/17 07:02 Hemoglobin 8.6 GM/DL 7.3 GM/DL 6.7 GM/DL Hematocrit 27.1 % 22.5 % 20.5 % White Blood Count 8.2 TH/MM3 6.8 TH/MM3 Red Blood Count 2.75 MIL/MM3 2.53 MIL/MM3 Mean Corpuscular Volume 81.9 FL 81.0 FL Mean Corpuscular Hemoglobin 26.4 PG 26.6 PG Mean Corpuscular Hemoglobin Concent 32.2 % 32.8 % Red Cell Distribution Width 19.9 % 19.5 % Platelet Count 297 TH/MM3 299 TH/MM3 Mean Platelet Volume 9.2 FL 9.1 FL Neutrophils (%) (Auto) 63.3 % 58.3 % Lymphocytes (%) (Auto) 20.7 % 22.1 % Monocytes (%) (Auto) 10.4 % 10.7 % Eosinophils (%) (Auto) 5.2 % 8.6 % Basophils (%) (Auto) 0.4 % 0.3 % Neutrophils # (Auto) 5.2 TH/MM3 4.0 TH/MM3 Lymphocytes # (Auto) 1.7 TH/MM3 1.5 TH/MM3 Monocytes # (Auto) 0.9 TH/MM3 0.7 TH/MM3 Eosinophils # (Auto) 0.4 TH/MM3 0.6 TH/MM3 Basophils # (Auto) 0.0 TH/MM3 0.0 TH/MM3 CBC Comment DIFF FINAL DIFF FINAL Differential Comment Blood Urea Nitrogen 47 MG/DL 60 MG/DL Creatinine 5.78 MG/DL 6.89 MG/DL Random Glucose 128 MG/DL 187 MG/DL Calcium Level 7.9 MG/DL 7.5 MG/DL Sodium Level 136 MEQ/L 136 MEQ/L Potassium Level 4.4 MEQ/L 5.3 MEQ/L Chloride Level 100 MEQ/L 100 MEQ/L Carbon Dioxide Level 28.8 MEQ/L 27.7 MEQ/L Anion Gap 7 MEQ/L 8 MEQ/L Estimat Glomerular Filtration Rate 9 ML/MIN 7 ML/MIN Phosphorus Level 5.1 MG/DL Objective Remarks Dressing to right lower extremity clean dry and intact with no strikethrough noted. Capillary refill time 3 seconds to digits 5. Pain on palpation to right lower extremity. Medications and IVs Current Medications Medications (Trade) Dose Ordered Sig/Rita Route Start Time Stop Time Status Last Admin (NS Flush) 2 ml UNSCH PRN IV FLUSH 09/06/17 21:45 (NS Flush) 2 ml BID IV FLUSH 09/07/17 09:00 09/08/17 22:02 (Tylenol) 650 mg Q4H PRN PO 09/06/17 21:45 (Zofran Inj) 4 mg Q6H PRN IVP 09/06/17 21:45 (Narcan Inj) 0.4 mg UNSCH PRN IV PUSH 09/06/17 21:45 (Velma-Colace) 1 tab BID PO 09/07/17 09:00 09/08/17 22:02 (Milk Of Magnesia Liq) 30 ml Q12H PRN PO 09/06/17 21:45 (Senokot) 17.2 mg Q12H PRN PO 09/06/17 21:45 (Dulcolax Supp) 10 mg DAILY PRN RECTAL 09/06/17 21:45 (Lactulose Liq) 30 ml DAILY PRN PO 09/06/17 21:45 (D50w (Vial) Inj) 50 ml UNSCH PRN IV PUSH 09/06/17 22:00 (Glucagon Inj) 1 mg UNSCH PRN OTHER 09/06/17 22:00 (NovoLOG SUPPLEMENTAL SCALE) 1 ACHS SLIDING SCALE SQ 09/07/17 08:00 09/08/17 12:45 (Proair Hfa Inh) 2 puff Q4H PRN INH 09/06/17 22:00 (Norvasc) 10 mg DAILY PO 09/07/17 09:00 09/08/17 09:10 (Ecotrin Ec) 81 mg DAILY PO 09/07/17 09:00 Future Hold 09/08/17 09:00 (Atarax) 25 mg HS PO 09/07/17 21:00 09/08/17 22:02 (Synthroid) 75 mcg DAILY@0600 PO 09/07/17 06:00 09/09/17 05:30 (Nephrocaps) 1 cap DAILY PO 09/07/17 09:00 09/08/17 09:10 Piperacillin Sod/ Tazobactam Sod 50 ml @ 100 mls/hr Q8H IV 09/06/17 22:00 09/09/17 05:30 (Remeron) 15 mg HS PO 09/07/17 00:00 09/08/17 22:01 ([place] 5-325 Mg) 1 tab Q4H PRN PO 09/07/17 00:00 09/07/17 06:44 Sodium Chloride 500 ml @ 30 mls/hr [id number] PRN IV 09/07/17 01:00 09/10/17 00:59 (Betadine 5% Antisepsis Kit) 1 applic GUNSTOCK SPRAY UNIT FEEDER PRN EACH NARE 09/07/17 01:00 09/10/17 00:59 (Chlorhexidine 2% Cloth) 3 pack GUNSTOCK [employer] UNIT FEEDER PRN TOPICAL 09/07/17 01:00 09/10/17 00:59 Sodium Chloride 1,000 ml @ 0 mls/hr Q0M PRN OTHER 09/07/17 09:20 (Heparin Inj) 8,000 units UNSCH PRN IV FLUSH 09/07/17 09:30 Sodium Chloride 1,000 ml @ 200 mls/hr Q5H PRN IV 09/07/17 09:20 Sodium Chloride 1,000 ml @ 0 mls/hr Q0M PRN OTHER 09/07/17 09:20 (Mannitol Inj) 12.5 gm UNSCH PRN IV 09/07/17 09:30 Albumin Human 100 ml @ 60 mls/hr UNSCH PRN IV 09/07/17 09:30 (NS Flush) 5 ml UNSCH PRN IV FLUSH 09/07/17 09:30 (Heparin Inj) UNSCH PRN .XX 09/07/17 09:30 (Gentamicin Inj) 20 mg UNSCH PRN OTHER 09/07/17 09:30 (Zofran Inj) 4 mg UNSCH PRN IV PUSH 09/07/17 09:30 (Tylenol) 650 mg UNSCH PRN PO 09/07/17 09:30 (Benadryl) 25 mg UNSCH PRN PO 09/07/17 09:30 (Nitrostat Sl) 0.4 mg UNSCH PRN SL 09/07/17 09:30 (Catapres) 0.1 mg UNSCH PRN PO 09/07/17 09:30 (Epogen Inj) 10,000 units UNSCH PRN IV PUSH 09/07/17 09:30 09/07/17 15:04 (Gelfoam 12 Mm/7 Mm Top) 1 foam UNSCH PRN TOP 09/07/17 09:30 09/07/17 15:05 Vancomycin HCl 1000 mg/Sodium Chloride 250 ml @ 250 mls/hr WITH DIALYSIS IV 09/07/17 09:30 09/07/17 15:05 Lactated Ringer's 1,000 ml @ 30 mls/hr Q24H PRN IV 09/08/17 23:45 09/11/17 23:44 Sodium Chloride 500 ml @ 30 mls/hr [id number] PRN IV 09/08/17 23:45 09/11/17 23:44 (Betadine 5% Antisepsis Kit) 1 applic GUNSTOCK SPRAY UNIT FEEDER PRN EACH NARE 09/08/17 23:45 09/11/17 23:44 (Chlorhexidine 2% Cloth) 3 pack GUNSTOCK [employer] UNIT FEEDER PRN TOPICAL 09/08/17 23:45 09/11/17 23:44 Sodium Chloride 250 ml @ 15 mls/hr ONCE ONCE IV 09/09/17 08:15 09/10/17 00:54 (Protonix Inj) 40 mg Q12H IV PUSH 09/09/17 09:00 Assessment and Plan Assessment and Plan 72-year-old female with osteomyelitis on MRI noted to right calcaneus, distal fibula, talus. Patient was hospitalized last month for severe right foot and ankle abscess limb salvage has been attempted however patient has failed limb salvage attempts Patient examined and evaluated with all questions answered Agree with Dr. Mello with foot and ankle surgery and Dr. Reaves with vascular surgery that despite limb salvage attempts BKA this patient's best option secondary to the extent of osteomyelitis Patient is to remain nothing by mouth for BKA with Dr. Reaves today Discuss case with Dr. Mello and Dr. Reaves Discussed lower extremity amputation with patient, she is in agreement and feels she tried everything to save her limb Pooja Galvez DPM Sep 09, 2017 08:36
[2017-09-09] MEDS: VITAMIN B CMPLX/VITC/FOLIC AC CAP PO SCH (08:42)
[2017-09-09] MEDS: DOCUSATE SODIUM 50 MG/SENNA 8.6 MG TAB PO SCH ×2 (08:42→21:00)
--- NOTE | 2017-09-09 09:56 | HHI.FPPN ---
Subjective Remarks Blood in stool 24 hours. She reports that she has been having 3-4 loose bowel movements daily over the past 24 hours. He usually has a bowel movement every other day. He reports some discomfort around the anus from having to wipe frequently. She denies any chest pain, palpitations, or feeling faint. He also denies any abdominal pain currently. He understands that she will have a below the knee amputation, likely today. She appeared upset by this news. She also understands that she'll need a blood transfusion today prior to surgery. (Jesus Mendiola MD, R3) Objective Vitals Vital Signs Date Time Temp Pulse Resp B/P (MAP) Pulse Ox O2 Delivery O2 Flow Rate FiO2 09/09/17 08:00 98.0 81 17 141/65 (90) 97 09/09/17 00:25 98.6 80 16 153/67 (95) 97 09/08/17 22:18 Nasal Cannula 2.00 09/08/17 20:00 97.4 82 16 171/79 (109) 98 09/08/17 16:00 96.1 78 17 140/65 (90) 97 09/08/17 12:00 97.0 84 17 168/81 (110) 99 I/O 09/08/17 09/08/17 09/08/17 09/09/17 09/09/17 09/09/17 07:00 15:00 23:00 07:00 15:00 23:00 Intake Total 290 ml 290 ml Balance 290 ml 290 ml Intake Oral 240 ml 240 ml IV Total 50 ml 50 ml # Voids 0 2 # Bowel Movements 1 6 (Jesus Mendiola MD, R3) Result Diagram: 09/09/17 0702 09/09/17 0702 Imaging Last 72 hours Impressions Foot MRI 09/07/17 0000 Signed Impressions: Service Date/Time: Thursday, September 07, 2017 17:51 - CONCLUSION: 1. Osteomyelitis has developed at the fifth metatarsal base. 2. Slightly worsening osteomyelitis great toe head of the proximal phalanx and distal half of the distal phalanx. 3. Worsening osteomyelitis of the fibular sesamoid. There superficial osteomyelitis of the tibial sesamoid not significantly changed. 4. No drainable abscess. 5. Signal changes of the medial and intermediate cuneiforms and the third metatarsal base are most likely reactive. Ankle MRI to follow and please refer to that report for ankle and hindfoot findings. Jacob Hall MD Ankle MRI 09/07/17 0000 Signed Impressions: Service Date/Time: Thursday, September 07, 2017 17:51 - CONCLUSION: 1. Severe soft tissue ulceration laterally and posteromedially of the ankle/hindfoot. 2. 2.8 cm fluid collection in the posterolateral gutter, potentially an abscess. 3. Osteomyelitis of the calcaneus, scattered/patchy but most of the bone is involved, especially laterally. 4. Also osteomyelitis of the distal 4 cm of the fibula. 5. Possible osteomyelitis focally of the posteromedial aspect of the talus. Please see above. 6. Exposed peroneal tendons but grossly intact. Considerable tendinosis of the flexor hallucis longus at the level of the distal leg and certainly could be infectious given the other findings. Patient had MRI of the right foot today. Please refer to that report for midfoot and forefoot findings. Jacob Hall MD Chest X-Ray 09/06/17 1926 Signed Impressions: Service Date/Time: Wednesday, September 06, 2017 19:55 - CONCLUSION: 1. Patchy subsegmental mostly basilar airspace disease with cardiomegaly. No effusion. Daniel Hinkle MD Objective Remarks GEN: Well-developed, well-nourished patient. No acute distress. CV: Regular rate and rhythm without obvious murmurs LUNGS: Clear to auscultation bilaterally. Normal respiratory effort. No wheezes , rales, rhonchi. GI: nondistended, soft, NTTP, no rebound. BS present. EXT: No edema. No calf tenderness. Right foot wrapped in Sarath bandage. Clean and dry. NEURO/PSYCH: Awake, alert. Appropriate insight and judgment. Normal speech (Jesus Mendiola MD, R3) A/P Assessment and Plan 72 y/o with chronic history of HTN, DM, ESRD, chronic foot wounds presents from podiatry clinic for evaluation. Admitted for osteomyelitis with debridement and possible amputation. Discharge Planning Undetermined at this time, pending definitive treatment of osteomyelitis. wdw Dr. Wang (Jesus Mendiola MD, R3) Attending Attestation THIS CASE WAS DISCUSSED WITH THE RESIDENT PHYSICIANS.PATIRNT WAS SEEN EXAMINED WITH DR Veronica MENDIOLA, I HAVE REVIEWED THE RECORD AND AGREE WITH THE ABOVE NOTE AND PLAN OF CARE WAS DISCUSSED. I HAVE AUTHORIZED THE ORDER SET. (Bigg Wiseman MD) Problem List: (1) Osteomyelitis of ankle or foot, right, acute ICD Codes: M86.171 - Other acute osteomyelitis, right ankle and foot Status: Acute Plan: Patient with history of chronic right foot wounds that was currently being managed by podiatry (Dr. Bentley). Was hospitalized in July 2017 and underwent surgical exploration and had a wound VAC placed at that time. Admitted per the recommendation of podiatry due to worsening ulcer/wounds. MRI significant for osteomyelitis and multiple bones of the foot and ankle. -Wound cultures showing Corynebacterium sp. -Blood cultures NGTD -Will consult ID for assistance with antibiotic selection and duration. Podiatry consulted: appreciate recommendations * 09/07/17: Debridement of ulcers on right foot/ankle 3 * Plan on 09/[address] Fleming Vascular consulted: appreciate recommendations * Pt with severe vascular changes, diabetic neuropathy Imaging: * MRI foot: Osteomyelitis develop at the fifth metatarsal base. Slight worsening osteomyelitis of the great toe head of the proximal phalanx and distal half of the distal phalanx. Worsening osteomyelitis of the fibular sesamoid. The superficial osteomyelitis of the tibial sesamoid not significantly changed. No drainable abscess. * MRI ankle: Severe soft tissue ulceration laterally and posteromedially of the ankle/hindfoot. Fluid collection in the posterior lateral gutter, potentially an abscess. Osteomyelitis of the calcaneus. Osteomyelitis of the distal fibula possible osteomyelitis focally of the posterior medial aspect of the talus. * Foot x-ray: Osteopenia, no acute bony abnormality. Medications * Vancomycin (09/06- per nephrology dosing/titration * Zosyn (09/07- (2) GI bleed ICD Codes: K92.2 - Gastrointestinal hemorrhage, unspecified Status: Acute Plan: A second with 2 episodes of bright red blood in her stool on 09/09/2017. Scope in July 2017 showed, 1 small polyp, diverticulosis, few small possible AVMs in the ascending colon. Recommended Protonix twice a day at that time. Hemoglobin decreasing from a baseline of 7.3/22.5, on 09/08/2017 ---> 6.7/20.5 on 09/09/2017. Transfuse 1 unit of packed red blood cells, followed by 20 units of IV Lasix given her end-stage renal disease. Should be going for dialysis today Saturday 09/09. Transition to IV Protonix 40 mg IV BID. Check H&H status post blood transfusion. (3) ESRD (end stage renal disease) on dialysis ICD Codes: N18.6 - End stage renal failure on dialysis; Z99.2 - Dependence on renal dialysis Status: Chronic Plan: Dialysis Saturday typically. Missed dialysis the day of admission. Sees Dr. Buchanan, correctional officer chief outpatient. No urine output Nephrology consulted: Appreciate recommendations * Resume dialysis 3x/wk * Monitor phosphorus intermittently, use binders as appropriate. * Fluid restriction (4) Diabetes mellitus ICD Codes: E11.9 - Type 2 diabetes mellitus without complications Status: Chronic Plan: History of long-term diabetes on insulin at home -Sliding scale insulin -Monitor accuchecks -May need basal insulin, once eating again on a more routine basis as more surgeries are expected (5) Hypertension ICD Codes: I10 - Hypertension Status: Chronic Plan: BP elevated on admission the patient did miss dialysis on day of admission. Expect BP to improve as she resumes routine medications and dialysis. -Continue home amlodipine (6) Hypothyroidism ICD Codes: E03.9 - Hypothyroidism Status: Chronic Plan: Continue home Synthroid (7) FEN Status: Acute Plan: Fluids: None, on dialysis Electrolytes: monitor, replace PRN Nutrition: NPO on 09/09 for possible BKA. 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
[2017-09-09] MEDS: PANTOPRAZOLE SODIUM 40 MG VIAL IV PUSH SCH ×2 (09:58→22:20)
[2017-09-09] MEDS: SODIUM CHLORIDE 0.9% FLUSH 10 ML FLUSH IV FLUSH SCH ×2 (09:58→22:20)
--- NOTE | 2017-09-09 10:03 | HHI.NPPN ---
Subjective General Problems: Anemia Renal Failure: Chronic, End Stage Renal Disease Interval History NPO for BKA today. She appears depressed. More anemia requiring transfusion. Currently NPO. (Teresa Parekh) Review of Systems General Constitutional: Fatigue (Teresa Parekh) Musculoskeletal MS: Pain/Stiffness (Teresa Parekh) Skin Skin: Ulcers (Teresa Parekh) Psych Psych: Depression (Teresa Parekh) Objective Data Data Vital Signs Date Time Temp Pulse Resp B/P (MAP) Pulse Ox O2 Delivery O2 Flow Rate FiO2 09/09/17 08:00 98.0 81 17 141/65 (90) 97 09/09/17 00:25 98.6 80 16 153/67 (95) 97 09/08/17 22:18 Nasal Cannula 2.00 09/08/17 20:00 97.4 82 16 171/79 (109) 98 09/08/17 16:00 96.1 78 17 140/65 (90) 97 09/08/17 12:00 97.0 84 17 168/81 (110) 99 (Teresa Parekh) -: 09/09/17 0702 09/09/17 0702 Imaging Last 72 hours Impressions Foot MRI 09/07/17 0000 Signed Impressions: Service Date/Time: Thursday, September 07, 2017 17:51 - CONCLUSION: 1. Osteomyelitis has developed at the fifth metatarsal base. 2. Slightly worsening osteomyelitis great toe head of the proximal phalanx and distal half of the distal phalanx. 3. Worsening osteomyelitis of the fibular sesamoid. There superficial osteomyelitis of the tibial sesamoid not significantly changed. 4. No drainable abscess. 5. Signal changes of the medial and intermediate cuneiforms and the third metatarsal base are most likely reactive. Ankle MRI to follow and please refer to that report for ankle and hindfoot findings. Jacob Hall MD Ankle MRI 09/07/17 0000 Signed Impressions: Service Date/Time: Thursday, September 07, 2017 17:51 - CONCLUSION: 1. Severe soft tissue ulceration laterally and posteromedially of the ankle/hindfoot. 2. 2.8 cm fluid collection in the posterolateral gutter, potentially an abscess. 3. Osteomyelitis of the calcaneus, scattered/patchy but most of the bone is involved, especially laterally. 4. Also osteomyelitis of the distal 4 cm of the fibula. 5. Possible osteomyelitis focally of the posteromedial aspect of the talus. Please see above. 6. Exposed peroneal tendons but grossly intact. Considerable tendinosis of the flexor hallucis longus at the level of the distal leg and certainly could be infectious given the other findings. Patient had MRI of the right foot today. Please refer to that report for midfoot and forefoot findings. Jacob Hall MD Chest X-Ray [id number]/06/[id number] Signed Impressions: Service Date/Time: Wednesday, September 06, 2017 19:55 - CONCLUSION: 1. Patchy subsegmental mostly basilar airspace disease with cardiomegaly. No effusion. Daniel Hinkle MD (Iglesia,Teresa B. TILE HELPER) Physical Exam General Appearance: Well Developed, No Acute Distress, Malnourished (Iglesia,Teresa B. TILE HELPER) Eyes Eye Exam: Pupils Equal (Iglesia,Teresa B. TILE HELPER) Throat Throat Exam: Oral Mucosa [place] & Moist (Iglesia,Teresa B. TILE HELPER) Neck Neck Exam: Neck Supple (Iglesia,Teresa B. TILE HELPER) Pulmonary Resp Exam: Clear Bilaterally, Breath Sounds Equal (Iglesia,Teresa B. TILE HELPER) Cardiology CV Exam: Regular, Normal Sinus Rhythm, Good Perfusion (Iglesia,Teresa B. TILE HELPER) Gastrointestinal/Abdomen GI Exam: Soft, Non-Tender, Bowel Sounds Present (Iglesia,Teresa B. TILE HELPER) Genitourinary Exam: Clear Urine (IglesiaTeresa B. TILE HELPER) Musculoskeletal MS Exam: Normal Tone, Good Strength (Iglesia,Teresa B. TILE HELPER) Integumentary Skin Exam: Warm, Dry Skin Remarks right foot ulcer, dressing in place. (Iglesia,Teresa B. TILE HELPER) Extremeties Extremities Exam: No Edema (Iglesia,Teresa B. TILE HELPER) Neurologic Neuro Exam: Alert, Awake, Oriented, Speech Clear, Moving All Extremities (Iglesia,Teresa B. TILE HELPER) Psychiatric Psych Exam: Appropriate Responses (IglesiaTeresa B. TILE HELPER) Assessment/Plan Discussed Condition With: Patient Assessment Summary: Anemia of CKD, Hypertension, End Stage Renal Disease Problem List: (1) ESRD (end stage renal disease) on dialysis ICD Codes: N18.6 - End stage renal failure on dialysis; Z99.2 - Dependence on renal dialysis Status: Chronic Plan: HD today and MWF. Intermittently monitor renal profile. Fluid restriction to 1500 ml/day advised. Avoid IV, BP in the access arm. Low phosphorus, high protein diet when no longer NPO. (2) Hypertension ICD Codes: I10 - Hypertension Status: Chronic Plan: monitor BP, continue medications. (3) Foot ulcer, right ICD Codes: L97.519 - Non-pressure chronic ulcer of other part of right foot with unspecified severity Status: Acute Plan: s/p debridement. Plan for BKA today. Vascular surgery following. On Zosyn, given vancomycin. (4) Metabolic bone disease ICD Codes: E88.9 - Metabolic disorder, unspecified; M90.80 - Osteopathy in diseases classified elsewhere, unspecified site Status: Acute Plan: monitor phosphorus intermittently. Start binders when diet is advanced. (5) Diabetes mellitus ICD Codes: E11.9 - Type 2 diabetes mellitus without complications Status: Chronic Plan: Continue insulin coverage while hospitalized, maintain blood glucose between 140 and 180. Start D10 @ 20 while NPO. (6) Anemia ICD Codes: D64.9 - Anemia, unspecified Status: Acute Plan: Due for transfusion today. On Epogen with dialysis. Check iron profile. (Teresa Parekh) Plan patient was seen and examined. To have right BKA. Dialysis will be continued. Monitor phosphorus intermittently. 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
[2017-09-09 11:11] LABS: % SATURATION IRON PROFILE 17.1 % (20-50); IRON (FE) 27 MCG/DL (50-170); TOTAL IRON BINDING CAPACITY 158 MCG/DL (250-450)
[2017-09-09 12:09] LABS: HEMATOCRIT 21.5 % (35.0-46.0); HEMOGLOBIN 6.9 GM/DL (11.6-15.3)
[2017-09-09] MEDS: DEXTROSE 10% INJ 500 ML IV SCH (12:22)
--- NOTE | 2017-09-09 13:11 | PD.CAR.PN ---
CVT Progress Note Subjective/Hospital Course: Consult received Full dictation to follow For podiatry debridement Saturday and after that we will evaluate as far as salvageability of the leg is concerned Thanks J 09/09/17 Patient with severe peripheral vascular disease gangrene of the right heel and osteomyelitis Every effort has been made by podiatry to salvage the foot and there are no other options left I agree with Dr. Galvez and Dr. Nadir Mello, and the only option at this time is right below-knee amputation Patient scheduled for right below-knee amputation with second and third opinion of additional 2 physicians Today's BKA has to be canceled due to the fact that patient's hemoglobin is 6.7 and due to logistical reasons transfusion of 2 units PRBC was not not administered prior to taking patient to the operating room this afternoon. Considering this is purely elective procedure I believe it's safe and appropriate to transfuse this patient in peace and do surgery tomorrow Patient scheduled for right BKA tomorrow Objective: Vital Signs Date Time Temp Pulse Resp B/P (MAP) Pulse Ox O2 Delivery O2 Flow Rate FiO2 09/09/17 12:00 97.5 84 17 166/78 (107) 96 09/09/17 08:00 98.0 81 17 141/65 (90) 97 09/09/17 00:25 98.6 80 16 153/67 (95) 97 09/08/17 22:18 Nasal Cannula 2.00 09/08/17 20:00 97.4 82 16 171/79 (109) 98 09/08/17 16:00 96.1 78 17 140/65 (90) 97 Labs: Laboratory Tests Test 09/09/17 07:02 09/09/17 10:45 09/09/17 11:03 White Blood Count 6.8 TH/MM3 (4.0-11.0) Red Blood Count 2.53 MIL/MM3 (4.00-5.30) Hemoglobin 6.7 GM/DL (11.6-15.3) 6.9 GM/DL (11.6-15.3) Hematocrit 20.5 % (35.0-46.0) 21.5 % (35.0-46.0) Mean Corpuscular Volume 81.0 FL (80.0-100.0) Mean Corpuscular Hemoglobin 26.6 PG (27.0-34.0) Mean Corpuscular Hemoglobin Concent 32.8 % (32.0-36.0) Red Cell Distribution Width 19.5 % (11.6-17.2) Platelet Count 299 TH/MM3 (150-450) Mean Platelet Volume 9.1 FL (7.0-11.0) Neutrophils (%) (Auto) 58.3 % (16.0-70.0) Lymphocytes (%) (Auto) 22.1 % (9.0-44.0) Monocytes (%) (Auto) 10.7 % (0.0-8.0) Eosinophils (%) (Auto) 8.6 % (0.0-4.0) Basophils (%) (Auto) 0.3 % (0.0-2.0) Neutrophils # (Auto) 4.0 TH/MM3 (1.8-7.7) Lymphocytes # (Auto) 1.5 TH/MM3 (1.0-4.8) Monocytes # (Auto) 0.7 TH/MM3 (0-0.9) Eosinophils # (Auto) 0.6 TH/MM3 (0-0.4) Basophils # (Auto) 0.0 TH/MM3 (0-0.2) CBC Comment DIFF FINAL Differential Comment Blood Urea Nitrogen 60 MG/DL (7-18) Creatinine 6.89 MG/DL (0.50-1.00) Random Glucose 187 MG/DL (74-106) Calcium Level 7.5 MG/DL (8.5-10.1) Phosphorus Level 5.1 MG/DL (2.5-4.9) Sodium Level 136 MEQ/L (136-145) Potassium Level 5.3 MEQ/L (3.5-5.1) Chloride Level 100 MEQ/L (98-107) Carbon Dioxide Level 27.7 MEQ/L (21.0-32.0) Anion Gap 8 MEQ/L (5-15) Estimat Glomerular Filtration Rate 7 ML/MIN (>89) Iron Level 27 MCG/DL (50-170) Total Iron Binding Capacity 158 MCG/DL (250-450) Percent Iron Saturation 17.1 % (20-50) Result Diagram: 09/09/17 1103 09/09/17 0702 Amalia De La Cruz MD Sep 09, 2017 13:11
[2017-09-09] MEDS: MIRTAZAPINE 15 MG TAB PO SCH (22:19)
[2017-09-09] MEDS: hydrOXYzine HCL 25 MG TAB PO SCH (22:19)
[2017-09-10] VITALS (10 sets, daily range): BP systolic 125–181; BP diastolic 61–95; PULSE 75–88; RESP 14–22; TEMP 95–97.6; O2SAT 96–100
[2017-09-10 01:18] LABS: HEMOGLOBIN 6.7 GM/DL (11.6-15.3)
[2017-09-10 01:19] LABS: HEMATOCRIT 19.8 % (35.0-46.0)
[2017-09-10] MEDS ORDERED: FUROSEMIDE 20 MG/2 ML VIAL IV PUSH ONE (01:30)
[2017-09-10] MEDS: DEXTROSE 50% IN WATER 50 ML VIAL(D50) IV PUSH PRN (01:32)
[2017-09-10] MEDS: LEVOTHYROXINE SODIUM 75 MCG TAB PO SCH (05:44)
[2017-09-10] MEDS: PIPERACIL-TAZO 2.25 GM PREMIX 50 ML IV SCH ×3 (05:46→22:00)
[2017-09-10 06:35] LABS: AUTOMATED NEUTROPHIL # 4.9 TH/MM3 (1.8-7.7); BASOPHIL % 0.3 % (0.0-2.0); EOSINOPHIL # 0.6 TH/MM3 (0-0.4); HEMATOCRIT 25.2 % (35.0-46.0); HEMOGLOBIN 8.6 GM/DL (11.6-15.3); LYMPH % 20.1 % (9.0-44.0); LYMPHOCYTE # 1.5 TH/MM3 (1.0-4.8); MEAN CELL VOLUME 82.8 FL (80.0-100.0); MEAN CORPUSCULAR HEMOGLOBIN 28.2 PG (27.0-34.0); MEAN CORPUSCULAR HGB CONC 34.1 % (32.0-36.0); MONO % 8.5 % (0.0-8.0); MONOCYTE # 0.7 TH/MM3 (0-0.9); NEUT % 63.1 % (16.0-70.0); PLATELET COUNT 283 TH/MM3 (150-450); RED BLOOD COUNT 3.04 MIL/MM3 (4.00-5.30); WHITE BLOOD COUNT 7.7 TH/MM3 (4.0-11.0)
--- NOTE | 2017-09-10 06:40 | HHI.FPPN ---
Subjective Remarks Yesterday she felt faint, and shaky. Her blood glucose at the bedside was 56. This corrected to 104 after an amp of D50 was given. She denies any current symptoms of hypoglycemia. She reports feeling fine. Continued to have blood clots in her stools. Per the nursing, the largest was approximately grapefruit size this AM. Denies any shortness of breath, lightheadedness, chest pain, palpitations currently. She is requesting a diet at this time. (Jesus Mendiola MD, R3) Objective Vitals Vital Signs Date Time Temp Pulse Resp B/P (MAP) Pulse Ox O2 Delivery O2 Flow Rate FiO2 09/10/17 06:35 97.4 84 14 173/84 100 09/10/17 06:17 96.6 79 14 155/70 99 09/10/17 02:44 95.0 75 14 148/65 100 09/10/17 02:19 96.1 78 14 157/72 99 09/10/17 00:00 97.5 81 18 125/61 (82) 100 09/09/17 20:00 96.1 83 18 168/77 (107) 100 09/09/17 18:18 93 Nasal Cannula 2.00 09/09/17 17:26 96.3 83 17 164/58 (93) 93 09/09/17 17:20 96.3 83 17 164/58 93 09/09/17 16:57 96.0 85 17 136/72 09/09/17 16:50 96.0 85 17 136/72 (93) 94 09/09/17 13:37 95 Nasal Cannula 2.00 09/09/17 12:00 97.5 84 17 166/78 (107) 96 09/09/17 08:00 98.0 81 17 141/65 (90) 97 I/O 09/09/17 09/09/17 09/09/17 09/10/17 09/10/17 09/10/17 07:00 15:00 23:00 07:00 15:00 23:00 Intake Total 290 ml 775 ml 430 ml Balance 290 ml 775 ml 430 ml Intake Oral 240 ml 360 ml IV Total 50 ml Packed Cells 400 ml 400 ml Blood Product IV Normal Saline Flush 15 ml 30 ml # Voids 2 0 1 # Bowel Movements 6 6 1 (Jesus Mendiola MD, R3) Result Diagram: 09/10/17 0547 09/09/17 0702 Objective Remarks GEN: Well-developed, well-nourished patient. No acute distress. CV: Regular rate and rhythm without obvious murmurs LUNGS: Clear to auscultation bilaterally. Normal respiratory effort. No wheezes , rales, rhonchi. GI: nondistended, soft, NTTP, no rebound. BS present. EXT: No edema. No calf tenderness. Right foot wrapped in Sarath bandage. Clean and dry. NEURO/PSYCH: Awake, alert. Appropriate insight and judgment. Normal speech (Jesus Mendiola MD, R3) A/P Assessment and Plan 72 y/o with chronic history of HTN, DM, ESRD, chronic foot wounds presents from podiatry clinic for evaluation. Admitted for osteomyelitis with debridement and possible amputation. Discharge Planning Undetermined at this time, pending definitive treatment of osteomyelitis. (Jesus Mendiola MD, R3) Attending Attestation PATIENT WAS SEEN AND EXAMINED WITH DR Veronica JOE.THIS CASE WAS DISCUSSED WITH THE RESIDENT PHYSICIANS. I HAVE REVIEWED THE RECORD AND AGREE WITH THE ABOVE NOTE AND PLAN OF CARE WAS DISCUSSED. I HAVE AUTHORIZED THE ORDER SET (Bigg Wiseman MD) Problem List: (1) GI bleed ICD Codes: K92.2 - Gastrointestinal hemorrhage, unspecified Status: Acute Plan: Continue to have blood clots in her stool. Spoke with gastroenterology, they recommended initiating a bowel prep overnight, with a colonoscopy in the morning. Scope in July 2017 showed, 1 small polyp, diverticulosis, few small possible AVMs in the ascending colon. Recommended Protonix twice a day at that time. Hemoglobin decreased to 6.7 on 09/09/2017. Status post 2 units of blood, increased to 8.6. We'll give a third unit on 09/10. Transition to IV Protonix 40 mg IV BID. Check H&H status post blood transfusion. (2) Osteomyelitis of ankle or foot, right, acute ICD Codes: M86.171 - Other acute osteomyelitis, right ankle and foot Status: Acute Plan: Patient with history of chronic right foot wounds that was currently being managed by podiatry (Dr. Bentley). Was hospitalized in July 2017 and underwent surgical exploration and had a wound VAC placed at that time. Admitted per the recommendation of podiatry due to worsening ulcer/wounds. MRI significant for osteomyelitis and multiple bones of the foot and ankle. -Wound cultures showing Corynebacterium sp. -Blood cultures NGTD -Will consult ID for assistance with antibiotic selection and duration. Podiatry consulted: appreciate recommendations * 09/07/17: Debridement of ulcers on right foot/ankle 3 * Plan on 09/[address] Reaves - postponed secondary to acute gastrointestinal bleeding. Vascular consulted: appreciate recommendations * Pt with severe vascular changes, diabetic neuropathy Imaging: * MRI foot: Osteomyelitis develop at the fifth metatarsal base. Slight worsening osteomyelitis of the great toe head of the proximal phalanx and distal half of the distal phalanx. Worsening osteomyelitis of the fibular sesamoid. The superficial osteomyelitis of the tibial sesamoid not significantly changed. No drainable abscess. * MRI ankle: Severe soft tissue ulceration laterally and posteromedially of the ankle/hindfoot. Fluid collection in the posterior lateral gutter, potentially an abscess. Osteomyelitis of the calcaneus. Osteomyelitis of the distal fibula possible osteomyelitis focally of the posterior medial aspect of the talus. * Foot x-ray: Osteopenia, no acute bony abnormality. Medications * Vancomycin (09/06- per nephrology dosing/titration * Zosyn (09/07- (3) Hypoglycemia ICD Codes: E16.2 - Hypoglycemia, unspecified Plan: Prashant blood glucose was 56 at approximately 3 AM on 09/10/2017. Patient is status post D50 W 2. We'll resume regular diet at this time, continue with Accu-Cheks at 0800 hrs., 1200 hrs., 1700 hrs., and 2100 hrs. (4) ESRD (end stage renal disease) on dialysis ICD Codes: N18.6 - End stage renal failure on dialysis; Z99.2 - Dependence on renal dialysis Status: Chronic Plan: Dialysis Saturday typically. Sees Dr. Buchanan, web content specialist outpatient. No urine output Nephrology consulted: Appreciate recommendations * Resume dialysis 3x/wk * Monitor phosphorus intermittently, use binders as appropriate. * Fluid restriction (5) Diabetes mellitus ICD Codes: E11.9 - Type 2 diabetes mellitus without complications Status: Chronic Plan: History of long-term diabetes on insulin at home -Sliding scale insulin -Monitor accuchecks -May need basal insulin, once eating again on a more routine basis as more surgeries are expected (6) Hypertension ICD Codes: I10 - Hypertension Status: Chronic Plan: BP elevated on admission the patient did miss dialysis on day of admission. Expect BP to improve as she resumes routine medications and dialysis. -Continue home amlodipine (7) Hypothyroidism ICD Codes: E03.9 - Hypothyroidism Status: Chronic Plan: Continue home Synthroid (8) FEN Status: Acute Plan: Fluids: None, on dialysis Electrolytes: monitor, replace PRN Nutrition: Full regular diet until 09/11 at midnight. 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
[2017-09-10 07:01] LABS: ALBUMIN 2.2 GM/DL (3.4-5.0); BICARBONATE 25.9 MEQ/L (21.0-32.0); CALCIUM 7.5 MG/DL (8.5-10.1); CREATININE 7.79 MG/DL (0.50-1.00); PHOSPHORUS 6.3 MG/DL (2.5-4.9)
[2017-09-10] MEDS: DEXTROSE 10% INJ 500 ML IV SCH (07:20)
[2017-09-10] MEDS ORDERED: DEXTROSE 50% IN WATER 50 ML VIAL(D50) IV PUSH ONE (07:30)
[2017-09-10] MEDS ORDERED: CALCIUM GLUCONATE 10% 1 GM/10 ML VIAL IV PUSH ONE (07:30)
[2017-09-10] MEDS ORDERED: SEVELAMER CARBONATE 800 MG TAB PO SCH (08:00)
[2017-09-10] MEDS: INSULIN ASPART SUPPLEMENTAL SCALE SQ SCH ×4 (08:00→21:00)
[2017-09-10] MEDS: SODIUM CHLORIDE 0.9% FLUSH 10 ML FLUSH IV FLUSH SCH ×2 (09:00→21:00)
[2017-09-10] MEDS: DOCUSATE SODIUM 50 MG/SENNA 8.6 MG TAB PO SCH ×2 (09:00→21:00)
[2017-09-10] MEDS: VITAMIN B CMPLX/VITC/FOLIC AC CAP PO SCH (09:00)
[2017-09-10] MEDS: PANTOPRAZOLE SODIUM 40 MG VIAL IV PUSH SCH ×2 (09:00→22:00)
--- NOTE | 2017-09-10 10:02 | MP ---
cc: ANH CLINTON DPOmayra DATE OF SURGERY 09/07/2017 DATE OF 1945 INDICATIONS The patient was admitted for infection of ulcerations to right foot and ankle. She had been seen previously with a large abscess, underwent several incisions and drainage procedures and wanted to attempt limb salvage. She was seen in the clinic by Dr. Galvez where she was sent in for IV antibiotics and wound evaluation for debridement. I discussed with the patient the risks, benefits, and potential complications of surgery. She agreed to move forward with surgery. She was seen in preop holding by myself, nursing staff and Anesthesia where the correct patient side and site were all confirmed to be correct in the right foot and ankle. Attention was directed to the right lateral ankle first after timeouts were performed as per hospital protocol where as the right lateral ankle was noted to have an eschar to the lateral aspect of the entire heel with ulceration posterior to the lateral malleolus extending along the path of the peroneal tendons from the heel. Approximate size of this wound was 9 cm x 6 cm x 1.5 cm depth down to the level of the peroneal tendons. This wound was excisionally debrided of all fibrotic and necrotic tissue down to the level of tendon to the lateral ankle and including tendon using a #15 blade and a curette followed by irrigation with normal saline. There was mild bleeding noted to the tissues and no lion purulence was noted. Attention was then directed to the plantar aspect of the right foot in the plantar central foot where ulceration was noted to be down to the level of the flexor tendons and plantar fascia which measured approximately 3.5 cm x 2 cm x 1.5 cm depth and undermined approximately 1.5 cm in all directions. There was noted to be a wound Vac sponge that was still remaining within the foot in this area. No lion purulence was noted within the area. Excisional debridement was performed of fibrotic tissue down to the level of tendon to the plantar foot with a #15 blade and curette followed by irrigation with normal saline. Following this, the medial aspect of the ankle was addressed where there was noted to be an ulceration measuring approximate 6 cm x 3.5 cm x 0.5 cm depth down to subcutaneous tissue. There was fibrotic tissue over granulation tissue in the area with no exposed tendon noted at this time. No lion purulence was noted and excisional debridement was performed with a #15 blade and a curette of all fibrotic tissue down to the level of subcutaneous tissue in this area followed by irrigation with normal saline. Following this, all areas of the foot and ankle were irrigated with 3 liters of normal sterile saline followed by dressing consisting of Xeroform, 4x4s, ABD pads, cast padding and Sarath bandage to the right foot and ankle. The patient tolerated the procedure and anesthesia well without complications and was taken back to the PACU with vital signs stable and vascular status appeared to be intact with healthy bleeding granular base to all wounds at this time. The plan will be for the patient did to go to the OR again on Saturday at 04:[address] Galvez for repeat debridement to determine if the wound is able to have grafting at that time. Cultures were taken from all three wounds today and sent. The patient will be non-weightbearing right lower extremity. Short operative note. SURGEON Gertrudis Clinton MD WET PRESS TENDER Staff PREOPERATIVE DIAGNOSIS Ulcerations right foot and ankle. POSTOPERATIVE DIAGNOSIS Ulcerations right foot and ankle. PROCEDURE Debridement of ulcers right foot and ankle x3. PATHOLOGY Cultures times three for each respective wound. COMPLICATIONS None ESTIMATED BLOOD LOSS 10 mL ANESTHESIA General endotracheal anesthesia CONDITION Stable to PACU TOURNIQUET TIME Tourniquet not utilized. DISPOSITION Non-weightbearing right lower extremity. PLAN To OR again on Saturday afternoon with Dr. Galvez for further care. Anh OWENS /2:39 PM /9:48 AM
--- NOTE | 2017-09-10 10:03 | HHI.NPPN ---
Subjective General Problems: Anemia Renal Failure: Chronic, End Stage Renal Disease Interval History Surgery postponed due to anemia. Receiving blood transfusion. Apparently she has developed GI bleed. Seen in dialysis. (Teresa Parekh) Review of Systems General Constitutional: Fatigue (Teresa Parekh) Gastrointestinal Gastrointestinal: Blood/Tarry Stools (Teresa Parekh) Musculoskeletal MS: Pain/Stiffness (Teresa Parekh) Skin Skin: Ulcers (Teresa Parekh) Psych Psych: Depression (Teresa Parekh) Objective Data Data 09/10/17 09/11/17 19:00 07:00 Intake Total 120 ml Balance 120 ml Intake Oral 120 ml Vital Signs Date Time Temp Pulse Resp B/P (MAP) Pulse Ox O2 Delivery O2 Flow Rate FiO2 09/10/17 09:46 97 Nasal Cannula 2.00 09/10/17 08:00 97.3 80 20 138/67 (90) 97 09/10/17 06:35 97.4 84 14 173/84 100 09/10/17 06:17 96.6 79 14 155/70 99 09/10/17 02:44 95.0 75 14 148/65 100 09/10/17 02:19 96.1 78 14 157/72 99 09/10/17 00:00 97.5 81 18 125/61 (82) 100 09/09/17 20:00 96.1 83 18 168/77 (107) 100 09/09/17 18:18 93 Nasal Cannula 2.00 09/09/17 17:26 96.3 83 17 164/58 (93) 93 09/09/17 17:20 96.3 83 17 164/58 93 09/09/17 16:57 96.0 85 17 136/72 09/09/17 16:50 96.0 85 17 136/72 (93) 94 09/09/17 13:37 95 Nasal Cannula 2.00 09/09/17 12:00 97.5 84 17 166/78 (107) 96 (Teresa Parekh) -: 09/10/17 0547 09/10/17 0549 Physical Exam General Appearance: Well Developed, No Acute Distress, Malnourished (Iglesia,Teresa B. DAY WORKER) Eyes Eye Exam: Pupils Equal (Teresa Parekh B. DAY WORKER) Throat Throat Exam: Oral Mucosa [place] & Moist (Teresa Parekh B. DAY WORKER) Neck Neck Exam: Neck Supple (Teresa Parekh B. DAY WORKER) Pulmonary Resp Exam: Clear Bilaterally, Breath Sounds Equal (Teresa Parekh B. DAY WORKER) Cardiology CV Exam: Regular, Normal Sinus Rhythm, Good Perfusion (Teresa Parekh B. DAY WORKER) Gastrointestinal/Abdomen GI Exam: Soft, Non-Tender, Bowel Sounds Present (Teresa Parekh B. DAY WORKER) Genitourinary Exam: Clear Urine (Teresa Parekh B. DAY WORKER) Musculoskeletal MS Exam: Joints Intact, Normal Tone, Good Strength (Teresa Parekh B. DAY WORKER) Integumentary Skin Exam: Warm, Dry Skin Remarks right foot ulcer, dressing in place. (Teresa aPrekh B. DAY WORKER) Extremeties Extremities Exam: No Edema (Teresa Parekh. DAY WORKER) Neurologic Neuro Exam: Alert, Awake, Oriented, Speech Clear, Moving All Extremities (Teresa Parekh B. DAY WORKER) Psychiatric Psych Exam: Appropriate Responses (Teresa Parekh. DAY WORKER) Assessment/Plan Discussed Condition With: Patient Assessment Summary: Anemia of CKD, Hypertension, End Stage Renal Disease Problem List: (1) ESRD (end stage renal disease) on dialysis ICD Codes: N18.6 - End stage renal failure on dialysis; Z99.2 - Dependence on renal dialysis Status: Chronic Plan: Seen during dialysis today on a 2K, 350 BFR, goal 3L Resume MWF schedule most likely on Saturday. Intermittently monitor renal profile. Fluid restriction to 1500 ml/day advised. Avoid IV, BP in the access arm. Regular diet without protein restriction ordered, supplements added. (2) Hypertension ICD Codes: I10 - Hypertension Status: Chronic Plan: monitor BP, continue medications. (3) Foot ulcer, right ICD Codes: L97.519 - Non-pressure chronic ulcer of other part of right foot with unspecified severity Status: Acute Plan: s/p debridement. BKA postponed. Vascular surgery following. On Zosyn, given vancomycin. (4) Metabolic bone disease ICD Codes: E88.9 - Metabolic disorder, unspecified; M90.80 - Osteopathy in diseases classified elsewhere, unspecified site Status: Acute Plan: monitor phosphorus intermittently. Resume binders today. (5) Diabetes mellitus ICD Codes: E11.9 - Type 2 diabetes mellitus without complications Status: Chronic Plan: Continue insulin coverage while hospitalized, maintain blood glucose between 140 and 180. Use D10 @ 20 while NPO. (6) Anemia ICD Codes: D64.9 - Anemia, unspecified Status: Acute Plan: 3 units ordered. On Epogen with dialysis. She has iron deficiency, start venofer. New GI bleed (7) GI bleed ICD Codes: K92.2 - Gastrointestinal hemorrhage, unspecified Status: Acute Plan: GI to be consulted On Protonix, transfuse as above (Teresa Parekh) Plan Patient was seen and examined. BKA postponed. GI evaluation is requested. 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
[2017-09-10] MEDS: VANCOMYCIN INJ 1,000 MG in SODIUM CHLOR 0.9% 250 ML INJ 250 ML IV SCH (11:00)
[2017-09-10] MEDS: EPOETIN ALFA 10,000 UNITS/ML VIAL IV PUSH PRN (11:30)
[2017-09-10] MEDS: SEVELAMER CARBONATE 800 MG TAB PO SCH ×2 (12:00→17:00)
[2017-09-10] MEDS: IRON SUCROSE INJ 100 MG in SODIUM CHLORIDE 0.9% INJ 100 ML IV SCH (13:14)
[2017-09-10] MEDS ORDERED: PEG (High)/E-LYTE SOLN 4000 ML BTL PO ONE (15:00)
--- NOTE | 2017-09-10 15:25 | PD.CAR.PN ---
CVT Progress Note Subjective/Hospital Course: Consult received Full dictation to follow For podiatry debridement Saturday and after that we will evaluate as far as salvageability of the leg is concerned Thanks Jean Paul 09/09/17 Patient with severe peripheral vascular disease gangrene of the right heel and osteomyelitis Every effort has been made by podiatry to salvage the foot and there are no other options left I agree with Dr. Galvez and Dr. Nadir Mello, and the only option at this time is right below-knee amputation Patient scheduled for right below-knee amputation with second and third opinion of additional 2 physicians Today's BKA has to be canceled due to the fact that patient's hemoglobin is 6.7 and due to logistical reasons transfusion of 2 units PRBC was not not administered prior to taking patient to the operating room this afternoon. Considering this is purely elective procedure I believe it's safe and appropriate to transfuse this patient in peace and do surgery tomorrow Patient scheduled for right BKA tomorrow 09/10/17 Patient was initially rescheduled for surgery today however she had some bright red blood per rectum and surgery is now canceled GI bleeding takes precedence and patient will need a full workup on this issue before proceed with amputation If patient needs some gastrointestinal surgery or general surgical intervention I will be available and we'll continue to follow patient Once everything resolved we will reconsider the amputation issue Objective: Vital Signs Date Time Temp Pulse Resp B/P (MAP) Pulse Ox O2 Delivery O2 Flow Rate FiO2 09/10/17 12:00 97.1 88 20 156/87 (110) 96 09/10/17 09:46 97 Nasal Cannula 2.00 09/10/17 08:00 97.3 80 20 138/67 (90) 97 09/10/17 06:35 97.4 84 14 173/84 100 09/10/17 06:17 96.6 79 14 155/70 99 09/10/17 02:44 95.0 75 14 148/65 100 09/10/17 02:19 96.1 78 14 157/72 99 09/10/17 00:00 97.5 81 18 125/61 (82) 100 09/09/17 20:00 96.1 83 18 168/77 (107) 100 09/09/17 18:18 93 Nasal Cannula 2.00 09/09/17 17:26 96.3 83 17 164/58 (93) 93 09/09/17 17:20 96.3 83 17 164/58 93 09/09/17 16:57 96.0 85 17 136/72 09/09/17 16:50 96.0 85 17 136/72 (93) 94 Labs: Laboratory Tests Test 09/10/17 05:47 09/10/17 05:49 White Blood Count 7.7 TH/MM3 (4.0-11.0) Red Blood Count 3.04 MIL/MM3 (4.00-5.30) Hemoglobin 8.6 GM/DL (11.6-15.3) Hematocrit 25.2 % (35.0-46.0) Mean Corpuscular Volume 82.8 FL (80.0-100.0) Mean Corpuscular Hemoglobin 28.2 PG (27.0-34.0) Mean Corpuscular Hemoglobin Concent 34.1 % (32.0-36.0) Red Cell Distribution Width 18.0 % (11.6-17.2) Platelet Count 283 TH/MM3 (150-450) Mean Platelet Volume 9.0 FL (7.0-11.0) Neutrophils (%) (Auto) 63.1 % (16.0-70.0) Lymphocytes (%) (Auto) 20.1 % (9.0-44.0) Monocytes (%) (Auto) 8.5 % (0.0-8.0) Eosinophils (%) (Auto) 8.0 % (0.0-4.0) Basophils (%) (Auto) 0.3 % (0.0-2.0) Neutrophils # (Auto) 4.9 TH/MM3 (1.8-7.7) Lymphocytes # (Auto) 1.5 TH/MM3 (1.0-4.8) Monocytes # (Auto) 0.7 TH/MM3 (0-0.9) Eosinophils # (Auto) 0.6 TH/MM3 (0-0.4) Basophils # (Auto) 0.0 TH/MM3 (0-0.2) CBC Comment DIFF FINAL Differential Comment Blood Urea Nitrogen 61 MG/DL (7-18) Creatinine 7.79 MG/DL (0.50-1.00) Random Glucose 79 MG/DL (74-106) Albumin 2.2 GM/DL (3.4-5.0) Calcium Level 7.5 MG/DL (8.5-10.1) Phosphorus Level 6.3 MG/DL (2.5-4.9) Sodium Level 137 MEQ/L (136-145) Potassium Level 5.4 MEQ/L (3.5-5.1) Chloride Level 100 MEQ/L (98-107) Carbon Dioxide Level 25.9 MEQ/L (21.0-32.0) Anion Gap 11 MEQ/L (5-15) Estimat Glomerular Filtration Rate 6 ML/MIN (>89) Result Diagram: 09/10/17 0547 09/10/17 0549 Amalia De La Cruz MD Sep 10, 2017 15:25
[2017-09-10 15:45] LABS: HEMATOCRIT 28.3 % (35.0-46.0); HEMOGLOBIN 9.6 GM/DL (11.6-15.3)
--- NOTE | 2017-09-10 17:33 | PD.CONS ---
HPI History of Present Illness This is a 72 year old female with hx previous GIB, ESRD on HD, DM who originally presented for a foot wound. GI has been consulted for anemia and hematochezia. She says 2 days ago she began having blood in her stool. Per EMR there have been large clots, one the size of a grapefruit. her hgb dropped to 6.9. She had colonoscopy 07/31/17 found a polyp, diverticulosis, few poss sm AVMs in ascending colon. She had an EGD 07/23/17 found schatzki ring. At that time she had admitted to frequent use NSAIDs. She is to have a BKA pending GI eval. (Joyce Machado) PFSH Past Medical History DM ESRD on HD GIB hypothyroid hep c foot abscess Past Surgical History left hallux amputation right food wound debridement (Joyce Machado) Coded Allergies: *MDRO Multi-Drug Resistant Organism (Verified Allergy, Unknown, 09/06/17) MRSA Family History DM HTN Social History 1-2 cigarettes daily denies ETOH, illicit drug use (Joyce Machado) Review of Systems Constitutional: DENIES: Fever Endocrine: DENIES: Polyuria Eyes: DENIES: Blurred vision Ears, nose, mouth, throat: DENIES: Hearing loss Respiratory: DENIES: Cough Cardiovascular: DENIES: Chest pain Gastrointestinal: COMPLAINS OF: Bloody stools, Diarrhea, DENIES: Black stools, Constipation, Nausea, Vomiting, Hematemesis Genitourinary: DENIES: Hematuria Musculoskeletal: DENIES: Joint Swelling Integumentary: DENIES: Rash Neurologic: DENIES: Headache Psychiatric: DENIES: Confusion (Joyce Machado) GI Exam Vitals I&O Vital Signs Date Time Temp Pulse Resp B/P (MAP) Pulse Ox O2 Delivery O2 Flow Rate FiO2 09/10/17 16:00 87 09/10/17 16:00 97.6 85 19 181/87 (118) 98 09/10/17 12:00 97.1 88 20 156/87 (110) 96 09/10/17 09:46 97 Nasal Cannula 2.00 09/10/17 08:00 97.3 80 20 138/67 (90) 97 09/10/17 06:35 97.4 84 14 173/84 100 09/10/17 06:17 96.6 79 14 155/70 99 09/10/17 02:44 95.0 75 14 148/65 100 09/10/17 02:19 96.1 78 14 157/72 99 09/10/17 00:00 97.5 81 18 125/61 (82) 100 09/09/17 20:00 96.1 83 18 168/77 (107) 100 09/09/17 18:18 93 Nasal Cannula 2.00 I/O 09/09/17 09/09/17 09/09/17 09/10/17 09/10/17 09/10/17 07:00 15:00 23:00 07:00 15:00 23:00 Intake Total 290 ml 775 ml 430 ml 525 ml Output Total 3000 ml Balance 290 ml 775 ml 430 ml -2475 ml Intake Oral 240 ml 360 ml 120 ml IV Total 50 ml Packed Cells 400 ml 400 ml 400 ml Blood Product IV Normal Saline Flush 15 ml 30 ml 5 ml Hemodialysis 3000 ml # Voids 2 0 1 # Bowel Movements 6 6 1 Imaging Last Impressions Foot MRI 09/07/17 0000 Signed Impressions: Service Date/Time: Thursday, September 07, 2017 17:51 - CONCLUSION: 1. Osteomyelitis has developed at the fifth metatarsal base. 2. Slightly worsening osteomyelitis great toe head of the proximal phalanx and distal half of the distal phalanx. 3. Worsening osteomyelitis of the fibular sesamoid. There superficial osteomyelitis of the tibial sesamoid not significantly changed. 4. No drainable abscess. 5. Signal changes of the medial and intermediate cuneiforms and the third metatarsal base are most likely reactive. Ankle MRI to follow and please refer to that report for ankle and hindfoot findings. Jacob Hall MD Ankle MRI 09/07/17 0000 Signed Impressions: Service Date/Time: Thursday, September 07, 2017 17:51 - CONCLUSION: 1. Severe soft tissue ulceration laterally and posteromedially of the ankle/hindfoot. 2. 2.8 cm fluid collection in the posterolateral gutter, potentially an abscess. 3. Osteomyelitis of the calcaneus, scattered/patchy but most of the bone is involved, especially laterally. 4. Also osteomyelitis of the distal 4 cm of the fibula. 5. Possible osteomyelitis focally of the posteromedial aspect of the talus. Please see above. 6. Exposed peroneal tendons but grossly intact. Considerable tendinosis of the flexor hallucis longus at the level of the distal leg and certainly could be infectious given the other findings. Patient had MRI of the right foot today. Please refer to that report for midfoot and forefoot findings. Jacob Hall MD Chest X-Ray 09/06/17 1926 Signed Impressions: Service Date/Time: Wednesday, September 06, 2017 19:55 - CONCLUSION: 1. Patchy subsegmental mostly basilar airspace disease with cardiomegaly. No effusion. Daniel Hinkle MD Foot X-Ray 09/06/17 0000 Signed Impressions: Service Date/Time: Wednesday, September 06, 2017 20:00 - CONCLUSION: 1. Osteopenia. No acute bony abnormality. Daniel Hinkle MD Laboratory Test 09/10/17 00:36 09/10/17 05:47 09/10/17 05:49 09/10/17 15:20 Hemoglobin 6.7 GM/DL 8.6 GM/DL 9.6 GM/DL Hematocrit 19.8 % 25.2 % 28.3 % White Blood Count 7.7 TH/MM3 Red Blood Count 3.04 MIL/MM3 Mean Corpuscular Volume 82.8 FL Mean Corpuscular Hemoglobin 28.2 PG Mean Corpuscular Hemoglobin Concent 34.1 % Red Cell Distribution Width 18.0 % Platelet Count 283 TH/MM3 Mean Platelet Volume 9.0 FL Neutrophils (%) (Auto) 63.1 % Lymphocytes (%) (Auto) 20.1 % Monocytes (%) (Auto) 8.5 % Eosinophils (%) (Auto) 8.0 % Basophils (%) (Auto) 0.3 % Neutrophils # (Auto) 4.9 TH/MM3 Lymphocytes # (Auto) 1.5 TH/MM3 Monocytes # (Auto) 0.7 TH/MM3 Eosinophils # (Auto) 0.6 TH/MM3 Basophils # (Auto) 0.0 TH/MM3 CBC Comment DIFF FINAL Differential Comment Blood Urea Nitrogen 61 MG/DL Creatinine 7.79 MG/DL Random Glucose 79 MG/DL Albumin 2.2 GM/DL Calcium Level 7.5 MG/DL Phosphorus Level 6.3 MG/DL Sodium Level 137 MEQ/L Potassium Level 5.4 MEQ/L Chloride Level 100 MEQ/L Carbon Dioxide Level 25.9 MEQ/L Anion Gap 11 MEQ/L Estimat Glomerular Filtration Rate 6 ML/MIN Date/Time Source Procedure Growth Status 09/06/17 19:45 Blood Peripheral Aerobic Blood Culture - Preliminary NO GROWTH IN 4 DAYS Resulted 09/06/17 19:45 Blood Peripheral Anaerobic Blood Culture - Preliminary NO GROWTH IN 4 DAYS Resulted 09/07/17 13:31 Wound Ankle Fungal Smear - Final NO FUNGAL ELEMENTS SEEN. Resulted 09/07/17 13:31 Wound Ankle Fungal Culture Pending Resulted Physical Examination HEENT: PERRL; normocephalic; atraumatic; no jaundice. CHEST: CTA CARDIAC: RRR ABDOMEN: Soft, nondistended, nontender; no hepatosplenomegaly; bowel sounds are present in all four quadrants. EXTREMITIES: No clubbing, cyanosis right foot bandaged SKIN: Normal; no rash; no jaundice. FREIGHT FORWARDER: No focal deficits; alert and oriented times three. (Joyce Machado) Assessment and Plan Plan ASSESSMENT - anemia, hematochezia - lower GIB. hgb dropped to 6.9 s/p PRBC x 3. last colonoscopy 07/31/17 found polyp, diverticulosis, few small poss AVMs in the ascendign colon EGD 07/23/17 found schatzki ring. previous hx frequent use NSAIDs PLAN - EGD with enteroscopy and colonoscopy in am - obtain consent - clears - NPO after MN - GoLYtely - monitor HH - further recs to follow pt seen by myself and Dr Phillips and this note is written on his behalf (Joyce Machado) Plan Patient was seen and examined, agree with above note, patient agreeable to have an endoscopy and colonoscopy will plan on doing that tomorrow meanwhile we'll continue monitoring the patient and give her packed RBC as needed (Glendy Phillips MD) Joyce Machado Sep 10, 2017 17:33 Glendy Phillips MD Sep 10, 2017 19:38
[2017-09-10 19:34] LABS: HEMATOCRIT 27.6 % (35.0-46.0); HEMOGLOBIN 9.3 GM/DL (11.6-15.3)
[2017-09-10] MEDS: hydrOXYzine HCL 25 MG TAB PO SCH (21:00)
[2017-09-10] MEDS: MIRTAZAPINE 15 MG TAB PO SCH (21:00)
[2017-09-11] VITALS (8 sets, daily range): BP systolic 149–193; BP diastolic 66–84; PULSE 83–91; RESP 18–22; TEMP 96.2–98; O2SAT 98–100
[2017-09-11] MEDS: DEXTROSE 10% INJ 500 ML IV SCH
[2017-09-11] MEDS: LEVOTHYROXINE SODIUM 75 MCG TAB PO SCH (06:09)
[2017-09-11] MEDS: PIPERACIL-TAZO 2.25 GM PREMIX 50 ML IV SCH ×2 (06:11→22:10)
[2017-09-11] MEDS: SEVELAMER CARBONATE 800 MG TAB PO SCH ×2 (08:00→12:00)
[2017-09-11] MEDS: INSULIN ASPART SUPPLEMENTAL SCALE SQ SCH ×4 (08:00→21:00)
[2017-09-11] MEDS: IRON SUCROSE INJ 100 MG in SODIUM CHLORIDE 0.9% INJ 100 ML IV SCH (08:38)
[2017-09-11] MEDS: DOCUSATE SODIUM 50 MG/SENNA 8.6 MG TAB PO SCH ×2 (08:38→22:12)
[2017-09-11] MEDS: PANTOPRAZOLE SODIUM 40 MG VIAL IV PUSH SCH ×2 (08:38→22:12)
[2017-09-11] MEDS: SODIUM CHLORIDE 0.9% FLUSH 10 ML FLUSH IV FLUSH SCH ×2 (08:38→22:11)
[2017-09-11] MEDS: VITAMIN B CMPLX/VITC/FOLIC AC CAP PO SCH (08:39)
[2017-09-11 09:33] LABS: AUTOMATED NEUTROPHIL # 3.5 TH/MM3 (1.8-7.7); BASOPHIL % 0.6 % (0.0-2.0); EOSINOPHIL # 0.4 TH/MM3 (0-0.4); EOSINOPHIL % 7.5 % (0.0-4.0); LYMPH % 23.5 % (9.0-44.0); LYMPHOCYTE # 1.4 TH/MM3 (1.0-4.8); MEAN CORPUSCULAR HEMOGLOBIN 28.1 PG (27.0-34.0); MEAN CORPUSCULAR HGB CONC 34.3 % (32.0-36.0); MONO % 9.7 % (0.0-8.0); MONOCYTE # 0.6 TH/MM3 (0-0.9); NEUT % 58.7 % (16.0-70.0); PLATELET COUNT 241 TH/MM3 (150-450); RED BLOOD COUNT 2.46 MIL/MM3 (4.00-5.30); RED CELL DISTRIBUTION WIDTH 18.2 % (11.6-17.2)
[2017-09-11 09:57] LABS: HEMATOCRIT 20.2 % (35.0-46.0); HEMOGLOBIN 6.9 GM/DL (11.6-15.3)
[2017-09-11 09:58] LABS: BICARBONATE 32.2 MEQ/L (21.0-32.0); CALCIUM 7.5 MG/DL (8.5-10.1); CREATININE 4.97 MG/DL (0.50-1.00); PHOSPHORUS 4.5 MG/DL (2.5-4.9)
[2017-09-11] MEDS ORDERED: LIDOCAINE HCL 1% PF 5 ML AMPULE ONE (10:04)
--- NOTE | 2017-09-11 10:10 | HHI.FPPN ---
Subjective Remarks Mrs. Bolivar feels well. She is requesting a diet. The nurse reports several episodes of bright red blood in her stool overnight. He tolerated the GoLYTELY prep fairly well, and drank half of the prep. She is not complaining of any abdominal pain at the current moment. (Jesus Mendiola MD, R3) Objective Vitals Vital Signs Date Time Temp Pulse Resp B/P (MAP) Pulse Ox O2 Delivery O2 Flow Rate FiO2 09/11/17 09:07 100 09/11/17 08:00 97.7 83 19 157/74 (101) 100 09/11/17 04:00 97.8 84 20 163/78 (106) 100 09/11/17 01:01 91 09/11/17 00:00 96.2 88 22 193/84 (120) 100 09/10/17 20:00 96.8 83 22 179/95 (123) 99 09/10/17 16:00 87 09/10/17 16:00 97.6 85 19 181/87 (118) 98 09/10/17 12:00 97.1 88 20 156/87 (110) 96 I/O 09/10/17 09/10/17 09/10/17 09/11/17 09/11/17 09/11/17 07:00 15:00 23:00 07:00 15:00 23:00 Intake Total 430 ml 525 ml 480 ml 100 ml Output Total 3000 ml 1000 ml Balance 430 ml -2475 ml -520 ml 100 ml Intake Oral 120 ml 480 ml IV Total 100 ml Packed Cells 400 ml 400 ml Blood Product IV Normal Saline Flush 30 ml 5 ml Output Urine Total 400 ml Stool Total 600 ml Hemodialysis 3000 ml # Voids 1 4 # Bowel Movements 1 4 (Jesus Mendiola MD, R3) Result Diagram: 09/11/1790009/11/17 09 Objective Remarks GEN: Well-developed, well-nourished patient. No acute distress. CV: Regular rate and rhythm without obvious murmurs LUNGS: Clear to auscultation bilaterally. Normal respiratory effort. No wheezes , rales, rhonchi. GI: nondistended, soft, NTTP, no rebound. BS present. Large amounts of dark red blood on the bedding. A golf ball-sized clot was also noted. EXT: No edema. No calf tenderness. Right foot wrapped in Sarath bandage. Clean and dry. NEURO/PSYCH: Awake, alert. Appropriate insight and judgment. Normal speech (Jesus Mendiola MD, R3) A/P Assessment and Plan 72 y/o with chronic history of HTN, DM, ESRD, chronic foot wounds presents from podiatry clinic for evaluation. Admitted for osteomyelitis with debridement and possible amputation. Discharge Planning Undetermined at this time, pending definitive treatment of osteomyelitis. (Jesus Mendiola MD, R3) Attending Attestation Medical rounds were performed this morning Patient seen and examined with Dr Veronica Mendiola Agree with documentation in above note See Orders (Bigg Wiseman MD) Problem List: (1) GI bleed ICD Codes: K92.2 - Gastrointestinal hemorrhage, unspecified Status: Acute Plan: Continue to have blood clots in her stool. Patient went for a colonoscopy on 09/11/2017. Follow up gastroenterology recommendations. Scope in July 2017 showed, 1 small polyp, diverticulosis, few small possible AVMs in the ascending colon. Recommended Protonix twice a day at that time. Hemoglobin decreased to 6.9 on 09/11/2017. Gastroenterology recommended a repeat blood transfusion 1. Repeat H&H afterwards. Transition to IV Protonix 40 mg IV BID. (2) Osteomyelitis of ankle or foot, right, acute ICD Codes: M86.171 - Other acute osteomyelitis, right ankle and foot Status: Acute Plan: Patient with history of chronic right foot wounds that was currently being managed by podiatry (Dr. Bentley). Was hospitalized in July 2017 and underwent surgical exploration and had a wound VAC placed at that time. Admitted per the recommendation of podiatry due to worsening ulcer/wounds. MRI significant for osteomyelitis and multiple bones of the foot and ankle. -Wound cultures showing Corynebacterium sp. -Blood cultures NGTD -Will consult ID for assistance with antibiotic selection and duration. Podiatry consulted: appreciate recommendations * 09/07/17: Debridement of ulcers on right foot/ankle 3 * Plan on 09/[address] Reaves - postponed secondary to acute gastrointestinal bleeding. Vascular consulted: appreciate recommendations * Pt with severe vascular changes, diabetic neuropathy Imaging: * MRI foot: Osteomyelitis develop at the fifth metatarsal base. Slight worsening osteomyelitis of the great toe head of the proximal phalanx and distal half of the distal phalanx. Worsening osteomyelitis of the fibular sesamoid. The superficial osteomyelitis of the tibial sesamoid not significantly changed. No drainable abscess. * MRI ankle: Severe soft tissue ulceration laterally and posteromedially of the ankle/hindfoot. Fluid collection in the posterior lateral gutter, potentially an abscess. Osteomyelitis of the calcaneus. Osteomyelitis of the distal fibula possible osteomyelitis focally of the posterior medial aspect of the talus. * Foot x-ray: Osteopenia, no acute bony abnormality. Medications * Vancomycin (09/06- per nephrology dosing/titration * Zosyn (09/07- (3) Hypoglycemia ICD Codes: E16.2 - Hypoglycemia, unspecified Plan: BG of 71 this AM. Recommend another AM of D5W. Resume diet after colonoscopy. Patient is status post D50 W 2. Continue with Accu-Cheks at 0800 hrs., 1200 hrs., 1700 hrs., and 2100 hrs. (4) ESRD (end stage renal disease) on dialysis ICD Codes: N18.6 - End stage renal failure on dialysis; Z99.2 - Dependence on renal dialysis Status: Chronic Plan: Dialysis Saturday, Saturday, Saturday typically. Sees Dr. Buchanan, mica splitter outpatient. No urine output Nephrology consulted: Appreciate recommendations * Resume dialysis 3x/wk * Monitor phosphorus intermittently, use binders as appropriate. * Fluid restriction (5) Diabetes mellitus ICD Codes: E11.9 - Type 2 diabetes mellitus without complications Status: Chronic Plan: History of long-term diabetes on insulin at home -Sliding scale insulin -Monitor accuchecks -May need basal insulin, once eating again on a more routine basis as more surgeries are expected (6) Hypertension ICD Codes: I10 - Hypertension Status: Chronic Plan: BP elevated on admission the patient did miss dialysis on day of admission. Expect BP to improve as she resumes routine medications and dialysis. She did not receive her amlodipine yesterday, and had elevated blood pressures 190 systolic. Asymptomatic. -Continue home amlodipine (7) Hypothyroidism ICD Codes: E03.9 - Hypothyroidism Status: Chronic Plan: Continue home Synthroid (8) FEN Status: Acute Plan: Fluids: None, on dialysis. Electrolytes: monitor, replace PRN Nutrition: As guided by GI. 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
--- NOTE | 2017-09-11 10:31 | GIPROC ---
[facility] [address] [facility]. [facility], [address] EGD PROCEDURE REPORT EXAM DATE: 09/11/2017 PATIENT NAME: Anel Bolivar MR #: [id number] BIRTHDATE: 1945 ATTENDING: Cyrus Ochoa MD ORDER #: [id number] SEMI CONDUCTOR ASSEMBLER: Dhara Caruso and Cassy Victoria STATUS: inpatient INDICATIONS: The patient is a 72 yr old female here for an EGD due to iron deficiency anemia and acute post hemorrhagic anemia PROCEDURE PERFORMED: EGD, diagnostic MEDICATIONS: None and Per Anesthesia. TOPICAL ANESTHETIC: CONSENT: The patient understands the risks and benefits of the procedure and understands that these risks include, but are not limited to: sedation, allergic reaction, infection, perforation and/or bleeding. Alternative means of evaluation and treatment include, among others: physical exam, x-rays, and/or surgical intervention. The patient elects to proceed with this endoscopic procedure. medical equipment was checked for proper function. Hand hygiene and appropriate measures for infection prevention was taken. After the risks, benefits and alternatives of the procedure were thoroughly explained, Informed consent was verified, confirmed and timeout was successfully executed by the treatment team. The patient was anesthetized with topical anesthesia and the EC-[id number] (Pedi C) endoscope was introduced through the mouth and advanced to the third portion of the duodenum. Retroflexed views revealed no abnormalities The gastroscope was then slowly withdrawn and removed. ESOPHAGUS: The mucosa of the esophagus appeared normal. STOMACH: There was erythematous moderate gastritis in the gastric antrum. DUODENUM: The duodenal mucosa appeared normal in the 3rd part of the duodenum. ADVERSE EVENTS: There were no complications. IMPRESSIONS: 1. The esophagus appeared normal 2. There was erythematous gastritis in the gastric antrum 3. Normal duodenal mucosa in the 3rd part of the duodenum 4. Retroflexed views revealed no abnormalities RECOMMENDATIONS: 1. Continue PPI 2. Avoid NSAIDS PATIENT CONDITION: stable DISPOSITION: Inpatient REPEAT EXAM: Return 1 year EGD Cyrus Ochoa MD eSigned: Cyrus Ochoa MD 09/11/2017 10:31 AM cc:
--- NOTE | 2017-09-11 10:34 | GIPROC ---
[facility] [address] [facility]. [facility], [address] COLONOSCOPY PROCEDURE REPORT EXAM DATE: 09/11/2017 PATIENT NAME: Anel Bolivar MR #: [id number] BIRTHDATE: 1945 ENDOSCOPIST: Cyrus Ochoa MD ORDER #: [id number] [employer] DRIVER: Dhara Caruso and Cassy Victoria STATUS: inpatient INDICATIONS: The patient is a 72 yr old female here for a colonoscopy due to iron deficiency anemia and hematochezia PROCEDURE PERFORMED: Colonoscopy, diagnostic MEDICATIONS: None and Per Anesthesia. PREP QUALITY: The [place] Bowel Prep Score was Right colon 2, Mid colon 1, and Left colon 1. Total = 4. PREP TYPE:GoLytely PREP TYPE:Type: ESTIMATED BLOOD LOSS: None CONSENT: The patient understands the risks and benefits of the procedure and understands that these risks include, but are not limited to: sedation, allergic reaction, infection, perforation and/or bleeding. Alternative means of evaluation and treatment include, among others: physical exam, x-rays, and/or surgical intervention. The patient elects to proceed with this endoscopic procedure. medical equipment was checked for proper function. Hand hygiene and appropriate measures for infection prevention was taken. After the risks, benefits and alternatives of the procedure were thoroughly explained, Informed consent was verified, confirmed and timeout was successfully executed by the treatment team. A digital exam revealed external hemorrhoids The Pentax EC-[id number] endoscope was introduced through the anus and advanced to the cecum, which was identified by both the appendix and ileocecal valve. The instrument was then slowly withdrawn as the colon was fully examined. COLON FINDINGS: Moderate diverticulosis was noted in the sigmoid colon. No bleeding was noted from the diverticulosis. Blood present throughout the colon. No active site of bleeding seen. Retroflexed views revealed internal hemorrhoids and Retroflexed views revealed medium internal hemorrhoids The scope was then completely withdrawn from the patient and the procedure terminated. PROCEDURE WITHDRAWAL TIME:7minutes ADVERSE EVENTS: There were no complications. IMPRESSIONS: 1. Moderate diverticulosis was noted in the sigmoid colon 2. Blood present throughout the colon. No active site of bleeding seen 3. Retroflexed views revealed internal hemorrhoids 4. Retroflexed views revealed medium internal hemorrhoids 5. Revealed external hemorrhoids RECOMMENDATIONS: 1. Continue surveillance 2. Yearly hemoccult 3. Transfuse 1 unit of PRBC now. STAT bleeding scan. Liquid diet. Repeat colonoscopy tomorrow depending upon clinical course. RECALL: Return 1 day Colonoscopy Cyrus Ochoa MD eSigned: Cyrus Ochoa MD 09/11/2017 10:34 AM cc: PATIENT NAME: Anel Bolivar MR#: [id number]
--- NOTE | 2017-09-11 11:21 | PD.CAR.PN ---
CVT Progress Note Subjective/Hospital Course: Consult received Full dictation to follow For podiatry debridement Saturday and after that we will evaluate as far as salvageability of the leg is concerned Thanks Jean Paul 09/09/17 Patient with severe peripheral vascular disease gangrene of the right heel and osteomyelitis Every effort has been made by podiatry to salvage the foot and there are no other options left I agree with Dr. Galvez and Dr. Nadir Mello, and the only option at this time is right below-knee amputation Patient scheduled for right below-knee amputation with second and third opinion of additional 2 physicians Today's BKA has to be canceled due to the fact that patient's hemoglobin is 6.7 and due to logistical reasons transfusion of 2 units PRBC was not not administered prior to taking patient to the operating room this afternoon. Considering this is purely elective procedure I believe it's safe and appropriate to transfuse this patient in peace and do surgery tomorrow Patient scheduled for right BKA tomorrow 09/10/17 Patient was initially rescheduled for surgery today however she had some bright red blood per rectum and surgery is now canceled GI bleeding takes precedence and patient will need a full workup on this issue before proceed with amputation If patient needs some gastrointestinal surgery or general surgical intervention I will be available and we'll continue to follow patient Once everything resolved we will reconsider the amputation issue 09/11/17 Hemoglobin again down to 6.9 g/dL as a result of GI bleeding Completely agree with medicine and gastroenterology approach and plan No clear site of bleeding and identified and this is often a problem in patients who have multiple pathologies, all of which could be attributing to the bleeding process including diverticular disease AVM malformations and such Most of these bleeds will see his on the round and only about 10-15% of patients will require actual surgery for the same. Precise identification of the bleeding site being the right or the left colon is imperative should patient require surgery for continuous bleeding, for knowing in their and having to do subtotal colectomy on this lady would double the mortality as opposed only removing the right or the left colon. Sometimes however we cannot identify the bleeding site and then subtotal colectomy remains the only option. Will continue follow patient which you and if patient require surgery I will be available to preform it. As far as the leg is concerned, amputation is now a secondary issue and will not be undertaken until the above issues are resolved and treated satisfactorily. Objective: Vital Signs Date Time Temp Pulse Resp B/P (MAP) Pulse Ox O2 Delivery O2 Flow Rate FiO2 09/11/17 10:52 98.0 90 16 179/84 (115) 97 09/11/17 09:07 100 09/11/17 08:00 97.7 83 19 157/74 (101) 100 09/11/17 04:00 97.8 84 20 163/78 (106) 100 09/11/17 01:01 91 09/11/17 00:00 96.2 88 22 193/84 (120) 100 09/10/17 20:00 96.8 83 22 179/95 (123) 99 09/10/17 16:00 87 09/10/17 16:00 97.6 85 19 181/87 (118) 98 09/10/17 12:00 97.1 88 20 156/87 (110) 96 Labs: Laboratory Tests Test 09/11/17 09:01 White Blood Count 6.0 TH/MM3 (4.0-11.0) Red Blood Count 2.46 MIL/MM3 (4.00-5.30) Hemoglobin 6.9 GM/DL (11.6-15.3) Hematocrit 20.2 % (35.0-46.0) Mean Corpuscular Volume 82.0 FL (80.0-100.0) Mean Corpuscular Hemoglobin 28.1 PG (27.0-34.0) Mean Corpuscular Hemoglobin Concent 34.3 % (32.0-36.0) Red Cell Distribution Width 18.2 % (11.6-17.2) Platelet Count 241 TH/MM3 (150-450) Mean Platelet Volume 9.0 FL (7.0-11.0) Neutrophils (%) (Auto) 58.7 % (16.0-70.0) Lymphocytes (%) (Auto) 23.5 % (9.0-44.0) Monocytes (%) (Auto) 9.7 % (0.0-8.0) Eosinophils (%) (Auto) 7.5 % (0.0-4.0) Basophils (%) (Auto) 0.6 % (0.0-2.0) Neutrophils # (Auto) 3.5 TH/MM3 (1.8-7.7) Lymphocytes # (Auto) 1.4 TH/MM3 (1.0-4.8) Monocytes # (Auto) 0.6 TH/MM3 (0-0.9) Eosinophils # (Auto) 0.4 TH/MM3 (0-0.4) Basophils # (Auto) 0.0 TH/MM3 (0-0.2) CBC Comment DIFF FINAL Differential Comment Blood Urea Nitrogen 26 MG/DL (7-18) Creatinine 4.97 MG/DL (0.50-1.00) Random Glucose 71 MG/DL (74-106) Albumin 2.0 GM/DL (3.4-5.0) Calcium Level 7.5 MG/DL (8.5-10.1) Phosphorus Level 4.5 MG/DL (2.5-4.9) Sodium Level 139 MEQ/L (136-145) Potassium Level 4.1 MEQ/L (3.5-5.1) Chloride Level 99 MEQ/L (98-107) Carbon Dioxide Level 32.2 MEQ/L (21.0-32.0) Anion Gap 8 MEQ/L (5-15) Estimat Glomerular Filtration Rate 10 ML/MIN (>89) Result Diagram: 09/11/1701 09/11/17 0901 Amalia De La Cruz MD Sep 11, 2017 11:21
[2017-09-11] MEDS ORDERED: INSULIN ASPART 1,000 UNITS/10 ML VIAL SQ ONE (12:15)
--- NOTE | 2017-09-11 15:22 | HHI.NPPN ---
Subjective General Problems: Anemia Renal Failure: Chronic, End Stage Renal Disease Interval History Had EGD/colonoscopy earlier today. Blood was found in the colon without identification of bleeding site. She is scheduled for bleeding scan. Ordered transfusion today. (Teresa Parekh) Review of Systems General Constitutional: Fatigue (Teresa Parekh) Gastrointestinal Gastrointestinal: Blood/Tarry Stools (Teresa Parekh) Musculoskeletal MS: Pain/Stiffness (Teresa Parekh) Skin Skin: Ulcers (Teresa Parekh) Psych Psych: Depression (Teresa Parekh) Objective Data Data 09/11/17 09/12/17 19:00 07:00 Intake Total 52 ml Balance 52 ml Blood Product IV Normal Saline Flush 2 ml Other 50 ml Vital Signs Date Time Temp Pulse Resp B/P (MAP) Pulse Ox O2 Delivery O2 Flow Rate FiO2 09/11/17 14:00 97.2 86 18 162/78 09/11/17 13:49 97.6 86 20 149/66 09/11/17 12:00 98.0 86 18 174/83 (113) 98 09/11/17 10:52 98.0 90 16 179/84 (115) 97 09/11/17 09:07 100 09/11/17 08:00 97.7 83 19 157/74 (101) 100 09/11/17 04:00 97.8 84 20 163/78 (106) 100 09/11/17 01:01 91 09/11/17 00:00 96.2 88 22 193/84 (120) 100 09/10/17 20:00 96.8 83 22 179/95 (123) 99 09/10/17 16:00 87 09/10/17 16:00 97.6 85 19 181/87 (118) 98 (Teresa Parekh) -: 09/11/17 0901 09/11/17 0901 Physical Exam General Appearance: Well Developed, No Acute Distress, Comfortable, Malnourished (Teresa Parekh) Eyes Eye Exam: Pupils Equal (Teresa Parekh) Throat Throat Exam: Oral Mucosa [place] & Moist (Teresa Parekh) Neck Neck Exam: Neck Supple (Teresa Parekh) Pulmonary Resp Exam: Clear Bilaterally, Breath Sounds Equal (Teresa Parekh) Cardiology CV Exam: Regular, Normal Sinus Rhythm, Good Perfusion (Teresa Parekh) Gastrointestinal/Abdomen GI Exam: Soft, Non-Tender, Bowel Sounds Present, Positive Bowel Movement (Teresa Parekh) Genitourinary Exam: Clear Urine (Teresa Parekh) Musculoskeletal MS Exam: Joints Intact, Normal Tone, Good Strength (Teresa Parekh) Integumentary Skin Exam: Warm, Dry Skin Remarks right foot ulcer, dressing in place. (Teresa Parekh) Extremeties Extremities Exam: No Edema (Teresa Parekh) Neurologic Neuro Exam: Alert, Awake, Oriented, Speech Clear, Moving All Extremities (Teresa Parekh) Psychiatric Psych Exam: Appropriate Responses (Teresa Parekh) Assessment/Plan Discussed Condition With: Patient Assessment Summary: Anemia of CKD, Hypertension, End Stage Renal Disease Problem List: (1) ESRD (end stage renal disease) on dialysis ICD Codes: N18.6 - End stage renal failure on dialysis; Z99.2 - Dependence on renal dialysis Status: Chronic Plan: HD tomorrow and Saturday to resume MWF HD schedule Transfuse with HD tomorrow if needed, hemoglobin ordered for AM Intermittently monitor renal profile. Fluid restriction to 1500 ml/day. Avoid IV, BP in the access arm. Regular diet without protein restriction when able to eat, supplements added. (2) Hypertension ICD Codes: I10 - Hypertension Status: Chronic Plan: monitor BP, continue medications. (3) Foot ulcer, right ICD Codes: L97.519 - Non-pressure chronic ulcer of other part of right foot with unspecified severity Status: Acute Plan: s/p debridement. BKA postponed. Vascular surgery following. On Zosyn, given vancomycin. (4) GI bleed ICD Codes: K92.2 - Gastrointestinal hemorrhage, unspecified Status: Acute Plan: GI following, s/p EGD/colonoscopy Results reviewed, due for bleeding scan On Protonix, transfuse as below. (5) Metabolic bone disease ICD Codes: E88.9 - Metabolic disorder, unspecified; M90.80 - Osteopathy in diseases classified elsewhere, unspecified site Status: Acute Plan: monitor phosphorus intermittently. She is on phosphate binder therapy. (6) Diabetes mellitus ICD Codes: E11.9 - Type 2 diabetes mellitus without complications Status: Chronic Plan: Continue insulin coverage while hospitalized, maintain blood glucose between 140 and 180. Use D10 @ 20 while NPO. (7) Anemia ICD Codes: D64.9 - Anemia, unspecified Status: Acute Plan: Transfusion ordered for today, CBC in AM On Epogen with dialysis. She has iron deficiency, on venofer. New GI bleed, see below. (Teresa Parkeh) Plan patient was seen and examined in the morning. Events noted. Agree with above assessment and plan. 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
--- NOTE | 2017-09-11 18:34 | RADRPT ---
EXAM DATE/TIME: 09/11/2017 15:51 [facility] COMPARISON: CTA RUNOFF W 3D RECON, July 29, 2017, 12:52. INDICATIONS : Gastrointestinal bleeding. DOSE: 20.4 mCi Tc99m Ultratag labeled red blood cells IV IMAGIN hrs MEDICAL HISTORY : Hypertension. Diabetes mellitus type 2. Renal disease, end stage. SURGICAL HISTORY : Partial hysterectomy. ENCOUNTER: Initial ACUITY: 1 day PAIN SCALE: 3/10 LOCATION: Abdomen. TECHNIQUE: Following the modified in vitro labeling of autologous red cells, dynamic continuous images were acqu ired for the specified interval. FINDINGS: BIODISTRIBUTION: There is a very good labeling of red cells without significant uptake in the gastric wall. There is good delineation of the blood pool of the spleen and abdominal vessels. BLEEDING: Abnormal accumulation of radiotracer is seen within the epigastrium. Peristaltic activity is seen wit h its accumulation. The exact location of the tracer is equivocal. Activity could relate to small bow el or transverse colon. Speaking with Dr. Ochoa blood was noted throughout the colon and no blood was seen involving the upper GI system on the endoscopy/colonoscopy performed today. CONCLUSION: Active hemorrhage observed in what is felt to be transverse colon. Praneeth Villa Jr., MD on September 11, 2017 at 18:08 Board Certified Radiologist. This report was verified electronically.
[2017-09-11] MEDS ORDERED: ceFAZolin 2 GM PREMIX 50 ML ONE (19:34)
--- NOTE | 2017-09-11 19:48 | PD.RAD ---
Post Procedure Progress Note Pre Procedure Diagnosis: (1) GI bleed (2) Anemia Post Procedure Diagnosis: (1) GI bleed (2) Anemia Procedure Date: Sep 11, 2017 Supervising Radiologist: Praneeth Villa JR Proceduralist/Assist: Jennie Monroe, RT(R), Sayra Lombardo, RT(R) Anesthesia: Conscious Sedation Plan of Activity Patient to Unit: Critical Care Patient Condition: Good See PACS Report for procedural detail/treatment Vascular-Arterial Procedure Procedure 1 Procedure Site: Celiac, Superior Mesenteric Artery Procedure(s): Angiogram Access Access Site(s): Right Femoral Artery Closure Site(s): Right vascular closure device Findings: Celiac, SMA, and GERARDO angiography to evaluate acute LGIB felt to be arising form transverse colon. Angio shows no source of hemorrhage or abnormal vessel/AVM. No embolization performed. I spoke to Dr Ochoa. Jr. Allen,Praneeth Palacio MD Sep 11, 2017 19:48
[2017-09-11] MEDS ORDERED: IODIXANOL 320 MG/ML 50 ML VIAL (for RAD SPEC) I-ARTERIAL ONE (19:50)
[2017-09-11] MEDS ORDERED: MIDAZOLAM HCL 2 MG/2 ML VIAL IV ONE (20:35)
[2017-09-11] MEDS ORDERED: fentaNYL CITRATE 2500 MCG/50 ML VIAL IV ONE (20:35)
[2017-09-11] MEDS: hydrOXYzine HCL 25 MG TAB PO SCH (21:00)
[2017-09-11] MEDS: MIRTAZAPINE 15 MG TAB PO SCH (22:13)
[2017-09-11 23:06] LABS: HEMATOCRIT 25.9 % (35.0-46.0); HEMOGLOBIN 8.7 GM/DL (11.6-15.3)
[2017-09-12] VITALS (11 sets, daily range): BP systolic 153–180; BP diastolic 68–83; PULSE 74–87; RESP 17–22; TEMP 97.5–98.8; O2SAT 97–100
[2017-09-12] MEDS: ACETAMINOPHEN/HYDROcodone 325 MG/5 MG TAB PO PRN ×3 (02:47→20:35)
[2017-09-12 03:29] LABS: AUTOMATED NEUTROPHIL # 4.8 TH/MM3 (1.8-7.7); BASOPHIL % 0.6 % (0.0-2.0); EOSINOPHIL # 0.5 TH/MM3 (0-0.4); EOSINOPHIL % 6.1 % (0.0-4.0); HEMATOCRIT 26.2 % (35.0-46.0); HEMOGLOBIN 8.8 GM/DL (11.6-15.3); LYMPH % 23.5 % (9.0-44.0); LYMPHOCYTE # 1.9 TH/MM3 (1.0-4.8); MEAN CELL VOLUME 83.4 FL (80.0-100.0); MEAN CORPUSCULAR HEMOGLOBIN 27.9 PG (27.0-34.0); MEAN CORPUSCULAR HGB CONC 33.5 % (32.0-36.0); MEAN PLATELET VOLUME 8.8 FL (7.0-11.0); MONOCYTE # 0.7 TH/MM3 (0-0.9); NEUT % 60.8 % (16.0-70.0); PLATELET COUNT 268 TH/MM3 (150-450); RED BLOOD COUNT 3.14 MIL/MM3 (4.00-5.30); RED CELL DISTRIBUTION WIDTH 17.1 % (11.6-17.2); WHITE BLOOD COUNT 7.9 TH/MM3 (4.0-11.0)
[2017-09-12 03:55] LABS: ALBUMIN 2.2 GM/DL (3.4-5.0); BICARBONATE 30.6 MEQ/L (21.0-32.0); CALCIUM 7.3 MG/DL (8.5-10.1); CREATININE 5.79 MG/DL (0.50-1.00); PHOSPHORUS 5.7 MG/DL (2.5-4.9)
[2017-09-12] MEDS: PIPERACIL-TAZO 2.25 GM PREMIX 50 ML IV SCH ×3 (06:04→20:32)
[2017-09-12] MEDS: LEVOTHYROXINE SODIUM 75 MCG TAB PO SCH (06:04)
[2017-09-12] MEDS: SEVELAMER CARBONATE 800 MG TAB PO SCH ×3 (08:00→15:28)
[2017-09-12] MEDS: INSULIN ASPART SUPPLEMENTAL SCALE SQ SCH ×4 (08:00→20:33)
[2017-09-12] MEDS: VITAMIN B CMPLX/VITC/FOLIC AC CAP PO SCH (08:38)
[2017-09-12] MEDS: PANTOPRAZOLE SODIUM 40 MG VIAL IV PUSH SCH ×2 (08:39→20:32)
[2017-09-12] MEDS: SODIUM CHLORIDE 0.9% FLUSH 10 ML FLUSH IV FLUSH SCH ×2 (08:41→20:33)
[2017-09-12] MEDS: IRON SUCROSE INJ 100 MG in SODIUM CHLORIDE 0.9% INJ 100 ML IV SCH (08:41)
[2017-09-12] MEDS: DOCUSATE SODIUM 50 MG/SENNA 8.6 MG TAB PO SCH ×2 (08:41→20:32)
--- NOTE | 2017-09-12 09:38 | HHI.GIFU ---
Subjective Remarks Pt resting in bed in NAD. Per nurse she had 2 marool stools over night, none this morning. d/w pt repeating colonoscopy and gave her option of staying NPO and doing this afternoon, staying on clears and doing tomorrow and no need for re-prep, or eating regular food and having to drink more GoLytely. "I'm going to eat, I don't care what yall do." She agreed to drink prep this evening. (Joyce Machado) Objective Vitals I&O Vital Signs Date Time Temp Pulse Resp B/P (MAP) Pulse Ox O2 Delivery O2 Flow Rate FiO2 09/12/17 07:38 100 21 09/12/17 04:00 98.8 79 22 154/68 (96) 99 09/12/17 00:00 98.8 80 17 165/77 (106) 100 09/12/17 00:00 98.8 80 17 162/77 (105) 100 09/11/17 14:00 97.2 86 18 162/78 09/11/17 13:49 97.6 86 20 149/66 09/11/17 12:00 98.0 86 18 174/83 (113) 98 09/11/17 10:52 98.0 90 16 179/84 (115) 97 I/O 09/11/17 09/11/17 09/11/17 09/12/17 09/12/17 09/12/17 07:00 15:00 23:00 07:00 15:00 23:00 Intake Total 100 ml 52 ml 400 ml 240 ml Balance 100 ml 52 ml 400 ml 240 ml Intake Oral 240 ml IV Total 100 ml Packed Cells 400 ml Blood Product IV Normal Saline Flush 2 ml Other 50 ml # Voids 4 0 # Bowel Movements 4 3 Laboratory Laboratory Tests Test 09/11/17 22:46 09/12/17 02:52 Hemoglobin 8.7 8.8 Hematocrit 25.9 26.2 White Blood Count 7.9 Red Blood Count 3.14 Mean Corpuscular Volume 83.4 Mean Corpuscular Hemoglobin 27.9 Mean Corpuscular Hemoglobin Concent 33.5 Red Cell Distribution Width 17.1 Platelet Count 268 Mean Platelet Volume 8.8 Neutrophils (%) (Auto) 60.8 Lymphocytes (%) (Auto) 23.5 Monocytes (%) (Auto) 9.0 Eosinophils (%) (Auto) 6.1 Basophils (%) (Auto) 0.6 Neutrophils # (Auto) 4.8 Lymphocytes # (Auto) 1.9 Monocytes # (Auto) 0.7 Eosinophils # (Auto) 0.5 Basophils # (Auto) 0.0 CBC Comment DIFF FINAL Differential Comment Blood Urea Nitrogen 29 Creatinine 5.79 Random Glucose 76 Albumin 2.2 Calcium Level 7.3 Phosphorus Level 5.7 Sodium Level 139 Potassium Level 3.9 Chloride Level 99 Carbon Dioxide Level 30.6 Anion Gap 9 Estimat Glomerular Filtration Rate 9 Date/Time Source Procedure Growth Status 09/06/17 19:45 Blood Peripheral Aerobic Blood Culture - Final NO GROWTH IN 5 DAYS Complete 09/06/17 19:45 Blood Peripheral Anaerobic Blood Culture - Final NO GROWTH IN 5 DAYS Complete 09/07/17 13:31 Wound Ankle Fungal Smear - Final NO FUNGAL ELEMENTS SEEN. Resulted 09/07/17 13:31 Wound Ankle Fungal Culture Pending Resulted Imaging Last Impressions GI Bleed Scan Nuclear Medicine 09/11/17 0000 Signed Impressions: Service Date/Time: Monday, September 11, 2017 15:51 - CONCLUSION: Active hemorrhage observed in what is felt to be transverse colon. Praneeth Villa Jr., MD Foot MRI 09/07/17 0000 Signed Impressions: Service Date/Time: Thursday, September 07, 2017 17:51 - CONCLUSION: 1. Osteomyelitis has developed at the fifth metatarsal base. 2. Slightly worsening osteomyelitis great toe head of the proximal phalanx and distal half of the distal phalanx. 3. Worsening osteomyelitis of the fibular sesamoid. There superficial osteomyelitis of the tibial sesamoid not significantly changed. 4. No drainable abscess. 5. Signal changes of the medial and intermediate cuneiforms and the third metatarsal base are most likely reactive. Ankle MRI to follow and please refer to that report for ankle and hindfoot findings. Jacob Hall MD Ankle MRI 09/07/17 0000 Signed Impressions: Service Date/Time: Thursday, September 07, 2017 17:51 - CONCLUSION: 1. Severe soft tissue ulceration laterally and posteromedially of the ankle/hindfoot. 2. 2.8 cm fluid collection in the posterolateral gutter, potentially an abscess. 3. Osteomyelitis of the calcaneus, scattered/patchy but most of the bone is involved, especially laterally. 4. Also osteomyelitis of the distal 4 cm of the fibula. 5. Possible osteomyelitis focally of the posteromedial aspect of the talus. Please see above. 6. Exposed peroneal tendons but grossly intact. Considerable tendinosis of the flexor hallucis longus at the level of the distal leg and certainly could be infectious given the other findings. Patient had MRI of the right foot today. Please refer to that report for midfoot and forefoot findings. Jacob Hall MD Chest X-Ray 09/06/17 1926 Signed Impressions: Service Date/Time: Wednesday, September 06, 2017 19:55 - CONCLUSION: 1. Patchy subsegmental mostly basilar airspace disease with cardiomegaly. No effusion. Daniel Hinkle MD Foot X-Ray 09/06/17 0000 Signed Impressions: Service Date/Time: Wednesday, September 06, 2017 20:00 - CONCLUSION: 1. Osteopenia. No acute bony abnormality. Daniel Hinkle MD Physical Exam HEENT: PERRL; normocephalic; atraumatic; no jaundice. CHEST: Diminished CARDIAC: RRR ABDOMEN: Soft, nondistended, nontender; no hepatosplenomegaly; bowel sounds are present in all four quadrants. EXTREMITIES: No clubbing, cyanosis, or edema. SKIN: Normal; no rash; no jaundice. REIMBURSEMENT CONSULTANT: No focal deficits; alert and oriented times three. (Joyce Machado [facility]) Assessment and Plan Plan ASSESSMENT - anemia, hematochezia - lower GIB. hgb dropped to 6.9 s/p PRBC x 3. last colonoscopy 07/31/17 found polyp, diverticulosis, few small poss AVMs in the ascendign colon EGD 07/23/17 found schatzki ring. previous hx frequent use NSAIDs 09/12/17 hgb dropped to 6.9, improved after 1 x PRBC and stable since then. s/p EGD 09/11/17 found erythematous gastritis, colonoscopy found moderate diverticulosis sigmoid, blood throughout colon no active bleed seen. STAT bleed scan indicated active hemorrhage transverse colon. Pt had 2 maroon stool over night, no bleeding today. Pt insists on eating today so will do colonoscopy tomorrow and reprep her tonight. SHe is agreeable with this option and refused to remain NPO to do colonoscopy today or on clear liquids and do tomorrow. PLAN - renal diet - clear liquid dinner - Golytely prep - colonoscopy in am - obtain consent - NPO after MN - monitor HH - transfuse as needed pt seen by myself and Dr Ochoa and this note is written on his behalf (Joyce Machado) Physician Comments Seen and examined with HEAD TENNIS COACH< no active bleeding now. S/p egd/colonoscopy/ bleeding scan and angiogram yesterday. Does not want to do any tests today. Wants to eat. repeat colonoscopy planned for tomorrow. Discussed with dr. Fleming (Cyrus Ochoa MD) Joyce Machado Sep 12, 2017 09:38 Cyrus Ochoa MD Sep 12, 2017 12:58
--- NOTE | 2017-09-12 09:52 | RADRPT ---
EXAM DATE/TIME: 09/11/2017 20:01 [facility] COMPARISON: No previous studies available for comparison. INDICATIONS : Patient presents with GI Bleed in need of abdominal angiogram. Patient is hemodynamically stable. Rec eiving blood products. Nuclear medicine bleeding scan correlated with endoscopy/colonoscopy results s uggest read for colon as site of hemorrhage. MEDICAL HISTORY : ESRD on hemodialysis, Chronic right foot wound, HTN, Diabetes, Hypothyroidism, Diabetic neuropathy, N octurnal hypoxia, GERD, Hepatitis C, GI bleed SURGICAL HISTORY : Right foot abscess I&D, Left hallux amputation, Left arm AV fistula ENCOUNTER: Initial ACUITY: 4-6 days PAIN SCORE: 6/10 LOCATION: lower back FLUORO TIME: 6.1 minutes IMAGE SERIES: 7 ACCESS SITE: Right Femoral artery SEDATION TIME: 30 minutes CONTRAST: 1.) 90 cc Visipaque (iodixanol) MEDICATION(S): 1.) 2.5 mg midazolam (Versed) IV 2.) 125 mcg fentanyl (Sublimaze) IV 3.) 2 g cefazolin (Ancef) IV Intra-procedural antibiotics were given as prescribed above. DEVICE(S): 1.) Right common femoral artery 6F Angio-Seal PROCEDURE : 1. Ultrasound-guided puncture of the access site. 2. Angiography of the access site prior to closure device. 3. Conscious sedation with continuous EKG and Oximetry monitoring. 4. Percutaneous closure of the access site. 5. Angiography of the superior mesenteric artery 6. Angiography of the inferior mesenteric artery 7. << Angiography of the <<celiac axis>>>> Consent was obtained from the patient as well as the patient's family via telephone. The risks, benef its and alternatives to the procedure were explained and verbal and written consent was obtained. Th e site was prepped in sterile fashion. Full sterile technique was used, including cap, mask, sterile gloves and gown and a large sterile sheet. Hand hygiene and 2% chlorhexidine and/or betadine/alcoho l prep was utilized per protocol for cutaneous antisepsis. Sterile gel and sterile probe cover were utilized for ultrasound guidance. The skin and subcutaneous tissues were infiltrated with local anes thetic solution. With ultrasound and fluoroscopic guidance the selected artery was punctured and a vascular sheath was placed. Angiography of the common femoral artery was performed for evaluation prior to percutaneous closure device placement. <<Selection of the superior mesenteric artery, inferior mesenteric artery, and centrally celiac axis were performed. Diagnostic angiography was performed from each of these levels. These diagnostic imag es show no source of acute hemorrhage. No abnormal vessel or arterial venous malformation. No emboliz ation was performed.>> Hemostasis was obtained with the prescribed medicated closure device. Conscious sedation was perform ed with the prescribed dosages and duration as above in the presence of an independent trained radiol ogy nurse to assist in the monitoring of the patient. EKG and oximetry remained stable throughout th e procedure. CONCLUSION: 1. Diagnostic mesenteric angiography fails to show a source of hemorrhage or site of hemorrhage. Praneeth Villa Jr., MD on September 12, 2017 at 9:44 Board Certified Radiologist. This report was verified electronically.
[2017-09-12] MEDS: DEXTROSE 10% INJ 500 ML IV SCH ×2 (10:15→22:46)
--- NOTE | 2017-09-12 10:18 | HHI.FPPN ---
Subjective Remarks She reports patient reports, "I'm just tired." She says she is tired of eating a clear liquid diet. She denies any new abdominal pain, lightheadedness, dizziness, headaches, visual changes, chest pain, shortness of breath, or nausea or vomiting. She did have 2 large maroon-colored bowel movements last night. (Jesus Mendiola MD, R3) Objective Vitals Vital Signs Date Time Temp Pulse Resp B/P (MAP) Pulse Ox O2 Delivery O2 Flow Rate FiO2 09/12/17 07:38 100 21 09/12/17 07:00 87 09/12/17 07:00 97 Room Air 09/12/17 04:00 98.8 79 22 154/68 (96) 99 09/12/17 00:00 98.8 80 17 165/77 (106) 100 09/12/17 00:00 98.8 80 17 162/77 (105) 100 09/11/17 14:00 97.2 86 18 162/78 09/11/17 13:49 97.6 86 20 149/66 09/11/17 12:00 98.0 86 18 174/83 (113) 98 09/11/17 10:52 98.0 90 16 179/84 (115) 97 I/O 09/11/17 09/11/17 09/11/17 09/12/17 09/12/17 09/12/17 07:00 15:00 23:00 07:00 15:00 23:00 Intake Total 100 ml 52 ml 400 ml 240 ml Balance 100 ml 52 ml 400 ml 240 ml Intake Oral 240 ml IV Total 100 ml Packed Cells 400 ml Blood Product IV Normal Saline Flush 2 ml Other 50 ml # Voids 4 0 # Bowel Movements 4 3 (Jesus Mendiola MD, R3) Result Diagram: 09/12/17 0252 09/12/17 0252 Imaging Last 72 hours Impressions GI Bleed Scan Nuclear Medicine 09/11/17 0000 Signed Impressions: Service Date/Time: Monday, September 11, 2017 15:51 - CONCLUSION: Active hemorrhage observed in what is felt to be transverse colon. Praneeth Villa Jr., MD Abdomen Arteriogram 09/11/17 0000 Signed Impressions: Service Date/Time: Monday, September 11, 2017 20:01 - CONCLUSION: 1. Diagnostic mesenteric angiography fails to show a source of hemorrhage or site of hemorrhage. Praneeth Villa Jr., MD Objective Remarks GEN: Well-developed, well-nourished patient. No acute distress. CV: Regular rate and rhythm without obvious murmurs LUNGS: Clear to auscultation bilaterally. Normal respiratory effort. No wheezes , rales, rhonchi. GI: nondistended, soft, NTTP, no rebound. BS present. EXT: No edema. No calf tenderness. Right foot wrapped in Sarath bandage. Clean and dry. NEURO/PSYCH: Awake, alert. Appropriate insight and judgment. Normal speech (Jesus Mendiola MD, R3) A/P Assessment and Plan 72 y/o with chronic history of HTN, DM, ESRD, chronic foot wounds presents from podiatry clinic for evaluation. Admitted for osteomyelitis with debridement and possible amputation. Developed a GI bleed during hospitalization. Discharge Planning Undetermined at this time, pending definitive treatment of osteomyelitis. (Jesus Mendiola MD, R3) Attending Attestation THIS CASE WAS DISCUSSED WITH THE RESIDENT PHYSICIANS.PATIENT WAS SEEN AND EXAMINED WITH RESIDENT DR Veronica MENDIOLA. I HAVE REVIEWED THE RECORD AND AGREE WITH THE ABOVE NOTE AND PLAN OF CARE WAS DISCUSSED. I HAVE AUTHORIZED THE ORDERs (Bigg Wiseman MD) Problem List: (1) GI bleed ICD Codes: K92.2 - Gastrointestinal hemorrhage, unspecified Status: Acute Plan: Continuing to have maroon stools x 2 overnight. Underwent a colonoscopy yesterday 09/11/2017. This showed moderate diverticulosis in the sigmoid colon, and present throughout the colon, with no active site of bleeding seen. A stat tagged RBC scan was performed, which showed an active hemorrhage what was thought to be the transverse colon. This was followed by an abdominal angiogram, which revealed no active source of bleeding. Hemoglobin decreased to 6.9 on 09/11/2017. She is status post 4 units of RBCs, and her hemoglobin appears stable today (09/12/2017) at 8.8 g/dL. Scope in July 2017 showed, 1 small polyp, diverticulosis, few small possible AVMs in the ascending colon. PLAN: She requests a full diet today, we will get a prep during the evening, for repeat colonoscopy in the morning. Appreciate the assistance of gastroenterology. H&H every 8 hours. Continue IV Protonix 40 mg IV BID. (2) Osteomyelitis of ankle or foot, right, acute ICD Codes: M86.171 - Other acute osteomyelitis, right ankle and foot Status: Acute Plan: Patient with history of chronic right foot wounds that was currently being managed by podiatry (Dr. Bentley). Was hospitalized in July 2017 and underwent surgical exploration and had a wound VAC placed at that time. Admitted per the recommendation of podiatry due to worsening ulcer/wounds. MRI significant for osteomyelitis and multiple bones of the foot and ankle. -Wound cultures showing Corynebacterium sp. -Blood cultures NGTD -Will consult ID for assistance with antibiotic selection and duration. Podiatry consulted: appreciate recommendations * 09/07/17: Debridement of ulcers on right foot/ankle 3 * Plan on 09/[address] Reaves - postponed secondary to acute gastrointestinal bleeding. Vascular consulted: appreciate recommendations * Pt with severe vascular changes, diabetic neuropathy Imaging: * MRI foot: Osteomyelitis develop at the fifth metatarsal base. Slight worsening osteomyelitis of the great toe head of the proximal phalanx and distal half of the distal phalanx. Worsening osteomyelitis of the fibular sesamoid. The superficial osteomyelitis of the tibial sesamoid not significantly changed. No drainable abscess. * MRI ankle: Severe soft tissue ulceration laterally and posteromedially of the ankle/hindfoot. Fluid collection in the posterior lateral gutter, potentially an abscess. Osteomyelitis of the calcaneus. Osteomyelitis of the distal fibula possible osteomyelitis focally of the posterior medial aspect of the talus. * Foot x-ray: Osteopenia, no acute bony abnormality. Medications * Vancomycin (09/06- per nephrology dosing/titration * Zosyn (09/07- (3) Hypoglycemia ICD Codes: E16.2 - Hypoglycemia, unspecified Plan: BG of 76 this AM. Resume diabetic diet at this time. Continue with Accu-Cheks at 0800 hrs., 1200 hrs., 1700 hrs., and 2100 hrs. (4) ESRD (end stage renal disease) on dialysis ICD Codes: N18.6 - End stage renal failure on dialysis; Z99.2 - Dependence on renal dialysis Status: Chronic Plan: Dialysis Saturday, Saturday, Saturday typically. Sees Dr. Buchanan, welfare director outpatient. No urine output Nephrology consulted: Appreciate recommendations * Resume dialysis 3x/wk * Monitor phosphorus intermittently, use binders as appropriate. * Fluid restriction (5) Diabetes mellitus ICD Codes: E11.9 - Type 2 diabetes mellitus without complications Status: Chronic Plan: History of long-term diabetes on insulin at home -Sliding scale insulin -Monitor accuchecks -May need basal insulin, once eating again on a more routine basis as more surgeries are expected (6) Hypertension ICD Codes: I10 - Hypertension Status: Chronic Plan: BP elevated on admission the patient did miss dialysis on day of admission. Expect BP to improve as she resumes routine medications and dialysis. She did not receive her amlodipine yesterday, and had elevated blood pressures 190 systolic. Asymptomatic. -Continue home amlodipine (7) Hypothyroidism ICD Codes: E03.9 - Hypothyroidism Status: Chronic Plan: Continue home Synthroid (8) FEN Status: Acute Plan: Fluids: None, on dialysis. Electrolytes: monitor, replace PRN Nutrition: As guided by GI. DVT ppx: hold chemoppx due to surgery, SCDs Seen and discussed with Dr. Wiseman. (Jesus Mendiola MD, R3) Problem Qualifiers (1) GI bleed: Qualified Codes: K57.91 - Diverticulosis of intestine, part unspecified, without perforation or abscess with bleeding (2) Diabetes mellitus: Qualified Codes: E11.42 - Type 2 diabetes mellitus with diabetic polyneuropathy ; Z79.4 - detention (current) use of insulin (3) Hypertension: Qualified Codes: I10 - Essential (primary) hypertension (4) Hypothyroidism: Qualified Codes: E03.9 - Hypothyroidism, unspecified Jesus Mendiola MD, R3 Sep 12, 2017 10:18 Bigg Wiseman MD Sep 13, 2017 13:35
--- NOTE | 2017-09-12 10:35 | HHI.NPPN ---
Subjective General Problems: Anemia Renal Failure: Chronic, End Stage Renal Disease Interval History She had angiogram yesterday that did not identify AVM. Hemoglobin stable today. Wanting to eat. (Teresa Parekh) Review of Systems General Constitutional: Fatigue (Teresa Parekh) Gastrointestinal Gastrointestinal: Blood/Tarry Stools (Teresa Parekh) Musculoskeletal MS: Pain/Stiffness (Teresa Parekh) Skin Skin: Ulcers (Teresa Parekh) Psych Psych: Depression (Teresa Parekh) Objective Data Data 09/12/17 09/13/17 19:00 07:00 Intake Total 240 ml Balance 240 ml Intake Oral 240 ml # Voids 0 # Bowel Movements 3 Vital Signs Date Time Temp Pulse Resp B/P (MAP) Pulse Ox O2 Delivery O2 Flow Rate FiO2 09/12/17 08:00 97.5 78 21 164/77 (106) 97 09/12/17 07:38 100 21 09/12/17 07:00 87 09/12/17 07:00 97 Room Air 09/12/17 04:00 98.8 79 22 154/68 (96) 99 09/12/17 00:00 98.8 80 17 165/77 (106) 100 09/12/17 00:00 98.8 80 17 162/77 (105) 100 09/11/17 14:00 97.2 86 18 162/78 09/11/17 13:49 97.6 86 20 149/66 09/11/17 12:00 98.0 86 18 174/83 (113) 98 09/11/17 10:52 98.0 90 16 179/84 (115) 97 (Teresa Parekh) -: 09/12/17 0252 09/12/17 0252 Imaging Last 72 hours Impressions GI Bleed Scan Nuclear Medicine 09/11/17 0000 Signed Impressions: Service Date/Time: Monday, September 11, 2017 15:51 - CONCLUSION: Active hemorrhage observed in what is felt to be transverse colon. Praneeth Villa Jr., MD Abdomen Arteriogram 09/11/17 0000 Signed Impressions: Service Date/Time: Monday, September 11, 2017 20:01 - CONCLUSION: 1. Diagnostic mesenteric angiography fails to show a source of hemorrhage or site of hemorrhage. Praneeth Villa Jr., MD (Teresa Parekh B. COIL TESTER) Physical Exam General Appearance: Well Developed, No Acute Distress, Comfortable, Malnourished (Teresa Parekh B. COIL TESTER) Eyes Eye Exam: Pupils Equal (Surinder Parekhon B. COIL TESTER) Throat Throat Exam: Oral Mucosa [place] & Moist (Surinder Parekhon B. COIL TESTER) Neck Neck Exam: Neck Supple (Surinder Parekhon B. COIL TESTER) Pulmonary Resp Exam: Clear Bilaterally, Breath Sounds Equal (Teresa Parekh B. COIL TESTER) Cardiology CV Exam: Regular, Normal Sinus Rhythm, Good Perfusion (Teresa Parekh B. COIL TESTER) Gastrointestinal/Abdomen GI Exam: Soft, Non-Tender, Bowel Sounds Present, Positive Bowel Movement (Teresa Parekh B. COIL TESTER) Genitourinary Exam: Clear Urine (Teresa Parekh B. COIL TESTER) Musculoskeletal MS Exam: Joints Intact, Normal Tone, Good Strength (Teresa Parekh B. COIL TESTER) Integumentary Skin Exam: Warm, Dry Skin Remarks right foot ulcer, dressing in place. (Teresa Parekh B. COIL TESTER) Extremeties Extremities Exam: No Edema (Teresa Parekh B. COIL TESTER) Neurologic Neuro Exam: Alert, Awake, Oriented, Speech Clear, Moving All Extremities (Surinder Parekhon B. COIL TESTER) Psychiatric Psych Exam: Appropriate Responses (Teresa Parekh B. COIL TESTER) Assessment/Plan Discussed Condition With: Patient Assessment Summary: Anemia of CKD, Hypertension, End Stage Renal Disease Problem List: (1) ESRD (end stage renal disease) on dialysis ICD Codes: N18.6 - End stage renal failure on dialysis; Z99.2 - Dependence on renal dialysis Status: Chronic Plan: Hold HD today, will resume MWF schedule tomorrow Transfuse with HD tomorrow if needed Intermittently monitor renal profile. Fluid restriction to 1500 ml/day. Avoid IV, BP in the access arm. Regular diet without protein restriction when able to eat, supplements added. (2) GI bleed ICD Codes: K92.2 - Gastrointestinal hemorrhage, unspecified Status: Acute Plan: GI following, s/p EGD/colonoscopy, due for repeat in AM s/p bleeding scan and angiogram Results reviewed On Protonix, transfuse if needed (3) Anemia ICD Codes: D64.9 - Anemia, unspecified Status: Acute Plan: 4 units transfused since admission On Epogen with dialysis. She has iron deficiency, on venofer. New GI bleed per above (4) Foot ulcer, right ICD Codes: L97.519 - Non-pressure chronic ulcer of other part of right foot with unspecified severity Status: Acute Plan: s/p debridement. BKA postponed until GIB has been corrected. Vascular surgery following. On Zosyn, given vancomycin. (5) Metabolic bone disease ICD Codes: E88.9 - Metabolic disorder, unspecified; M90.80 - Osteopathy in diseases classified elsewhere, unspecified site Status: Acute Plan: monitor phosphorus intermittently. She is on phosphate binder therapy. (6) Hypertension ICD Codes: I10 - Hypertension Status: Chronic Plan: monitor BP, continue medications. (7) Diabetes mellitus ICD Codes: E11.9 - Type 2 diabetes mellitus without complications Status: Chronic Plan: Continue insulin coverage while hospitalized, maintain blood glucose between 140 and 180. Use D10 @ 20 while NPO. (Teresa Parekh) Plan patient was seen and examined. Agree with above assessment and plan. (Dao Greene MD) Problem Qualifiers (1) GI bleed: Qualified Codes: K57.91 - Diverticulosis of intestine, part unspecified, without perforation or abscess with bleeding (2) Foot ulcer, right: Qualified Codes: L97.512 - Non-pressure chronic ulcer of other part of right foot with fat layer exposed (3) Hypertension: Qualified Codes: I10 - Essential (primary) hypertension (4) Diabetes mellitus: Qualified Codes: E11.42 - Type 2 diabetes mellitus with diabetic polyneuropathy ; Z79.4 - keno terminal operator (current) use of insulin Teresa Parekh Sep 12, 2017 10:35 Dao Greene MD Sep 12, 2017 14:41
[2017-09-12 14:48] LABS: HEMATOCRIT 27.3 % (35.0-46.0); HEMOGLOBIN 9.1 GM/DL (11.6-15.3)
[2017-09-12] MEDS ORDERED: PEG (High)/E-LYTE SOLN 4000 ML BTL PO ONE (16:00)
--- NOTE | 2017-09-12 16:12 | PD.CAR.PN ---
CVT Progress Note Subjective/Hospital Course: Consult received Full dictation to follow For podiatry debridement Saturday and after that we will evaluate as far as salvageability of the leg is concerned Thanks Jean Paul 09/09/17 Patient with severe peripheral vascular disease gangrene of the right heel and osteomyelitis Every effort has been made by podiatry to salvage the foot and there are no other options left I agree with Dr. Galvez and Dr. Nadir Mello, and the only option at this time is right below-knee amputation Patient scheduled for right below-knee amputation with second and third opinion of additional 2 physicians Today's BKA has to be canceled due to the fact that patient's hemoglobin is 6.7 and due to logistical reasons transfusion of 2 units PRBC was not not administered prior to taking patient to the operating room this afternoon. Considering this is purely elective procedure I believe it's safe and appropriate to transfuse this patient in peace and do surgery tomorrow Patient scheduled for right BKA tomorrow 09/10/17 Patient was initially rescheduled for surgery today however she had some bright red blood per rectum and surgery is now canceled GI bleeding takes precedence and patient will need a full workup on this issue before proceed with amputation If patient needs some gastrointestinal surgery or general surgical intervention I will be available and we'll continue to follow patient Once everything resolved we will reconsider the amputation issue 09/11/17 Hemoglobin again down to 6.9 g/dL as a result of GI bleeding Completely agree with medicine and gastroenterology approach and plan No clear site of bleeding and identified and this is often a problem in patients who have multiple pathologies, all of which could be attributing to the bleeding process including diverticular disease AVM malformations and such Most of these bleeds will see his on the round and only about 10-15% of patients will require actual surgery for the same. Precise identification of the bleeding site being the right or the left colon is imperative should patient require surgery for continuous bleeding, for knowing in their and having to do subtotal colectomy on this lady would double the mortality as opposed only removing the right or the left colon. Sometimes however we cannot identify the bleeding site and then subtotal colectomy remains the only option. Will continue follow patient which you and if patient require surgery I will be available to preform it. As far as the leg is concerned, amputation is now a secondary issue and will not be undertaken until the above issues are resolved and treated satisfactorily. 09/12/17 Patient currently stabilized from GI bleeding Hemoglobin is now stable Angiogram is negative for bleeding but that the requires at least the bleeding of 3 cc/minute to show up On the other hand no clear scan does reveal bleeding which in this case looks like transverse colon Majority of these bleeds will stop on the round with good supportive therapy and patient doesn't need further interventions On the other hand if the patient gets up to 6-8 units of blood transfusions than the risk of surgery is by far exceeded by the risk of repeated transfusions and then surgery is indicated We'll see how patient does and recommend as we go along Discussed with Dr Mi Objective: Vital Signs Date Time Temp Pulse Resp B/P (MAP) Pulse Ox O2 Delivery O2 Flow Rate FiO2 09/12/17 15:00 84 09/12/17 12:00 98.2 84 22 153/70 (97) 99 09/12/17 08:00 97.5 78 21 164/77 (106) 97 09/12/17 07:38 100 21 09/12/17 07:00 87 09/12/17 07:00 97 Room Air 09/12/17 04:00 98.8 79 22 154/68 (96) 99 09/12/17 00:00 98.8 80 17 165/77 (106) 100 09/12/17 00:00 98.8 80 17 162/77 (105) 100 Labs: Laboratory Tests Test 09/12/17 14:18 Hemoglobin 9.1 GM/DL (11.6-15.3) Hematocrit 27.3 % (35.0-46.0) Result Diagram: 09/12/17 1418 09/12/17 0252 Amalia De La Cruz MD Sep 12, 2017 16:12
[2017-09-12] MEDS: cloNIDine HCL 0.1 MG TAB PO PRN (17:12)
[2017-09-12] MEDS: MIRTAZAPINE 15 MG TAB PO SCH (20:32)
[2017-09-12] MEDS: hydrOXYzine HCL 25 MG TAB PO SCH (20:32)
[2017-09-12] MEDS: diphenhydrAMINE HCL 25 MG CAP PO PRN (21:10)
[2017-09-12] MEDS: DEXTROSE 50% IN WATER 50 ML VIAL(D50) IV PUSH PRN (22:35)
[2017-09-12 23:03] LABS: HEMOGLOBIN 7.1 GM/DL (11.6-15.3)
[2017-09-12 23:09] LABS: HEMATOCRIT 20.9 % (35.0-46.0)
[2017-09-12] MEDS ORDERED: SODIUM CHLOR 0.9% 250 ML INJ 250 ML IV ONE (23:30)
[2017-09-13] VITALS (13 sets, daily range): BP systolic 147–176; BP diastolic 65–82; PULSE 55–94; RESP 16–23; TEMP 97.4–99; O2SAT 94–100
[2017-09-13] MEDS: LEVOTHYROXINE SODIUM 75 MCG TAB PO SCH (04:27)
[2017-09-13] MEDS: PIPERACIL-TAZO 2.25 GM PREMIX 50 ML IV SCH ×3 (04:27→20:09)
[2017-09-13 06:01] LABS: AUTOMATED NEUTROPHIL # 5.2 TH/MM3 (1.8-7.7); BASOPHIL % 0.4 % (0.0-2.0); EOSINOPHIL # 0.2 TH/MM3 (0-0.4); EOSINOPHIL % 3.2 % (0.0-4.0); HEMATOCRIT 26.2 % (35.0-46.0); HEMOGLOBIN 9.1 GM/DL (11.6-15.3); LYMPH % 14.3 % (9.0-44.0); MEAN CELL VOLUME 82.2 FL (80.0-100.0); MEAN CORPUSCULAR HEMOGLOBIN 28.5 PG (27.0-34.0); MEAN CORPUSCULAR HGB CONC 34.7 % (32.0-36.0); MEAN PLATELET VOLUME 8.5 FL (7.0-11.0); MONO % 7.3 % (0.0-8.0); MONOCYTE # 0.5 TH/MM3 (0-0.9); NEUT % 74.8 % (16.0-70.0); PLATELET COUNT 225 TH/MM3 (150-450); RED BLOOD COUNT 3.19 MIL/MM3 (4.00-5.30); RED CELL DISTRIBUTION WIDTH 17.8 % (11.6-17.2); WHITE BLOOD COUNT 6.9 TH/MM3 (4.0-11.0)
[2017-09-13 06:26] LABS: BICARBONATE 27.9 MEQ/L (21.0-32.0); CALCIUM 7.2 MG/DL (8.5-10.1); CREATININE 6.73 MG/DL (0.50-1.00); PHOSPHORUS 6.2 MG/DL (2.5-4.9)
[2017-09-13 06:46] LABS: CALCIUM-PROTEIN CORRECTED 7.6 MG/DL (8.5-10.1); TOTAL PROTEIN 6.4 GM/DL (6.4-8.2)
[2017-09-13] MEDS: DOCUSATE SODIUM 50 MG/SENNA 8.6 MG TAB PO SCH ×2 (07:51→20:09)
[2017-09-13] MEDS: SODIUM CHLORIDE 0.9% FLUSH 10 ML FLUSH IV FLUSH SCH ×2 (07:51→20:10)
[2017-09-13] MEDS: SEVELAMER CARBONATE 800 MG TAB PO SCH ×3 (08:00→16:51)
[2017-09-13] MEDS: INSULIN ASPART SUPPLEMENTAL SCALE SQ SCH ×4 (08:00→20:09)
[2017-09-13] MEDS: VITAMIN B CMPLX/VITC/FOLIC AC CAP PO SCH (09:00)
[2017-09-13] MEDS: PANTOPRAZOLE SODIUM 40 MG VIAL IV PUSH SCH ×2 (09:00→20:08)
[2017-09-13] MEDS: IRON SUCROSE INJ 100 MG in SODIUM CHLORIDE 0.9% INJ 100 ML IV SCH (09:00)
--- NOTE | 2017-09-13 09:26 | HHI.FPPN ---
Subjective Remarks Patient reports feeling sweaty, shaky, and confused. Her BG was 40. Also still have rectal bleeding x 5-6 with bright red blood. No new abdominal pain. Tolerated prep well after adding lemon flavor. No CP, SOB, or headaches. Asking about dialysis today. (Jesus Mendiola MD, R3) Objective Vitals Vital Signs Date Time Temp Pulse Resp B/P (MAP) Pulse Ox O2 Delivery O2 Flow Rate FiO2 09/13/17 07:25 99 09/13/17 07:00 100 Nasal Cannula 2.00 09/13/17 06:00 77 09/13/17 04:00 76 09/13/17 04:00 97.5 76 16 165/79 (107) 99 09/13/17 02:00 69 09/13/17 01:46 97.5 55 16 176/82 100 09/13/17 00:00 62 09/13/17 00:00 97.4 62 16 147/65 (92) 98 09/12/17 22:00 74 09/12/17 20:20 100 21 09/12/17 20:00 84 09/12/17 20:00 97.8 84 21 180/83 (115) 100 09/12/17 19:00 100 Room Air 09/12/17 16:00 97.8 83 21 167/74 (105) 100 09/12/17 15:00 84 09/12/17 12:00 98.2 84 22 153/70 (97) 99 I/O 09/12/17 09/12/17 09/12/17 09/13/17 09/13/17 09/13/17 07:00 15:00 23:00 07:00 15:00 23:00 Intake Total 240 ml 240 ml 840 ml 1190 ml Output Total 1200 ml Balance 240 ml 240 ml 840 ml -10 ml Intake Oral 240 ml 240 ml 840 ml 840 ml IV Total 350 ml Stool Total 1200 ml # Voids 0 0 0 # Bowel Movements 3 3 4 (Jesus Mendiola MD, R3) Result Diagram: 09/13/1731 09/13/17 05 Imaging Last 72 hours Impressions GI Bleed Scan Nuclear Medicine 09/11/17 0000 Signed Impressions: Service Date/Time: Monday, September 11, 2017 15:51 - CONCLUSION: Active hemorrhage observed in what is felt to be transverse colon. Praneeth Villa Jr., MD Abdomen Arteriogram 09/11/17 0000 Signed Impressions: Service Date/Time: Monday, September 11, 2017 20:01 - CONCLUSION: 1. Diagnostic mesenteric angiography fails to show a source of hemorrhage or site of hemorrhage. Praneeth Villa Jr., MD Objective Remarks GEN: Well-developed, well-nourished patient. No acute distress. CV: Regular rate and rhythm without obvious murmurs LUNGS: Clear to auscultation bilaterally. Normal respiratory effort. No wheezes , rales, rhonchi. GI: nondistended, soft, NTTP, no rebound. BS present. EXT: No edema. No calf tenderness. Right foot wrapped in Sarath bandage. Clean and dry. NEURO/PSYCH: Awake, alert. Appropriate insight and judgment. Normal speech (Jesus Mendiola MD, R3) A/P Assessment and Plan 72 y/o with chronic history of HTN, DM, ESRD, chronic foot wounds presents from podiatry clinic for evaluation. Admitted for osteomyelitis with debridement and possible amputation. Developed a GI bleed during hospitalization. Discharge Planning Undetermined at this time, pending definitive treatment of osteomyelitis. (Jesus Mendiola MD, R3) Attending Attestation THIS CASE WAS DISCUSSED WITH THE RESIDENT PHYSICIANS.PATIENT WAS SEEN AND EXAMINED WITH RESIDENT DR Veronica MENDIOLA. I HAVE REVIEWED THE RECORD AND AGREE WITH THE ABOVE NOTE AND PLAN OF CARE WAS DISCUSSED. I HAVE AUTHORIZED THE ORDERs (Bigg Wiseman MD) Problem List: (1) GI bleed ICD Codes: K92.2 - Gastrointestinal hemorrhage, unspecified Status: Acute Plan: Continuing to have bright red blood in stools overnight. Underwent a colonoscopy yesterday 09/11/2017. This showed moderate diverticulosis in the sigmoid colon, and present throughout the colon, with no active site of bleeding seen. A stat tagged RBC scan was performed, which showed an active hemorrhage what was thought to be the transverse colon. This was followed by an abdominal angiogram, which revealed no active source of bleeding. Hemoglobin continues to decrease to 7.1 on , 09/12/2017 at 22:00. She is status post 4 units of RBCs, and her hemoglobin improved to 9.1 after additional unit. Scope in July 2017 showed, 1 small polyp, diverticulosis, few small possible AVMs in the ascending colon. PLAN: Colonoscopy today 09/13/2017. Appreciate the assistance of gastroenterology. H&H every 8 hours. Continue IV Protonix 40 mg IV BID. Patient remains in critical condition. (2) Osteomyelitis of ankle or foot, right, acute ICD Codes: M86.171 - Other acute osteomyelitis, right ankle and foot Status: Acute Plan: Patient with history of chronic right foot wounds that was currently being managed by podiatry (Dr. Bentley). Was hospitalized in July 2017 and underwent surgical exploration and had a wound VAC placed at that time. Admitted per the recommendation of podiatry due to worsening ulcer/wounds. MRI significant for osteomyelitis and multiple bones of the foot and ankle. -Wound cultures showing Corynebacterium sp. -Blood cultures NGTD -Will consult ID for assistance with antibiotic selection and duration. Podiatry consulted: appreciate recommendations * 09/07/17: Debridement of ulcers on right foot/ankle 3 * Plan on 09/[address] Reaves - postponed secondary to acute gastrointestinal bleeding. Vascular consulted: appreciate recommendations * Pt with severe vascular changes, diabetic neuropathy Imaging: * MRI foot: Osteomyelitis develop at the fifth metatarsal base. Slight worsening osteomyelitis of the great toe head of the proximal phalanx and distal half of the distal phalanx. Worsening osteomyelitis of the fibular sesamoid. The superficial osteomyelitis of the tibial sesamoid not significantly changed. No drainable abscess. * MRI ankle: Severe soft tissue ulceration laterally and posteromedially of the ankle/hindfoot. Fluid collection in the posterior lateral gutter, potentially an abscess. Osteomyelitis of the calcaneus. Osteomyelitis of the distal fibula possible osteomyelitis focally of the posterior medial aspect of the talus. * Foot x-ray: Osteopenia, no acute bony abnormality. Medications * Vancomycin (09/06- per nephrology dosing/titration * Zosyn (09/07- (3) Hypoglycemia ICD Codes: E16.2 - Hypoglycemia, unspecified Plan: BG of 40 on 09/12/2017 - Corrected with hypoglycemia protocol. Repeat this AM was 138, patient no longer symptomatic. Resume diabetic diet at this time. Continue with Accu-Cheks at 0800 hrs., 1200 hrs., 1700 hrs., and 2100 hrs. (4) ESRD (end stage renal disease) on dialysis ICD Codes: N18.6 - End stage renal failure on dialysis; Z99.2 - Dependence on renal dialysis Status: Chronic Plan: Dialysis Saturday, Saturday, Saturday typically. Sees Dr. Buchanan, arts education teacher outpatient. No urine output Nephrology consulted: Appreciate recommendations * Resume dialysis 3x/wk * Monitor phosphorus intermittently, use binders as appropriate. * Fluid restriction (5) Diabetes mellitus ICD Codes: E11.9 - Type 2 diabetes mellitus without complications Status: Chronic Plan: History of long-term diabetes on insulin at home -Sliding scale insulin -Monitor accuchecks -May need basal insulin, once eating again on a more routine basis as more surgeries are expected (6) Hypertension ICD Codes: I10 - Hypertension Status: Chronic Plan: BP elevated on admission the patient did miss dialysis on day of admission. Expect BP to improve as she resumes routine medications and dialysis. She did not receive her amlodipine yesterday, and had elevated blood pressures 190 systolic. Asymptomatic. -Continue home amlodipine (7) Hypothyroidism ICD Codes: E03.9 - Hypothyroidism Status: Chronic Plan: Continue home Synthroid (8) FEN Status: Acute Plan: Fluids: None, on dialysis. Electrolytes: monitor, replace PRN Nutrition: As guided by GI. DVT ppx: hold chemoppx due to surgery, SCDs Seen and discussed with Dr. Wiseman. 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
--- NOTE | 2017-09-13 10:41 | GIPROC ---
[facility] [address] [facility], [address] COLONOSCOPY PROCEDURE REPORT EXAM DATE: 09/13/2017 PATIENT NAME: Anel Bolivar MR #: [id number] BIRTHDATE: 1945 ENDOSCOPIST: Cyrus Ochoa MD ORDER #: [id number] OYSTER SORTER: Cortney Almaguer and Cassy Victoria STATUS: inpatient INDICATIONS: The patient is a 72 yr old female here for a colonoscopy due to anemia, non-specific and hematochezia PROCEDURE PERFORMED: Colonoscopy with biopsy MEDICATIONS: None and Per Anesthesia. PREP QUALITY: The [place] Bowel Prep Score was Right colon 1, Mid colon 2, and Left colon 2. Total = 5. PREP TYPE:GoLytely ESTIMATED BLOOD LOSS: None CONSENT: The patient understands the risks and benefits of the procedure and understands that these risks include, but are not limited to: sedation, allergic reaction, infection, perforation and/or bleeding. Alternative means of evaluation and treatment include, among others: physical exam, x-rays, and/or surgical intervention. The patient elects to proceed with this endoscopic procedure. medical equipment was checked for proper function. Hand hygiene and appropriate measures for infection prevention was taken. After the risks, benefits and alternatives of the procedure were thoroughly explained, Informed consent was verified, confirmed and timeout was successfully executed by the treatment team. A digital exam revealed external hemorrhoids The Pentax [id number] endoscope was introduced through the anus and advanced to the cecum, which was identified by both the appendix and ileocecal valve. The instrument was then slowly withdrawn as the colon was fully examined. COLON FINDINGS: Moderate diverticulosis was noted in the sigmoid colon. No bleeding was noted from the diverticulosis. Blood throughout the colon but no active site of bleeding seen. suspect diverticular bleed. A polypoid shaped sessile polyp ranging between 3-5mm in size was found in the sigmoid colon. A polypectomy was performed with cold forceps. The resection was complete and the polyp tissue was completely retrieved. Retroflexed views revealed internal hemorrhoids and Retroflexed views revealed medium internal hemorrhoids The scope was then completely withdrawn from the patient and the procedure terminated. PROCEDURE WITHDRAWAL TIME:13minutes ADVERSE EVENTS: There were no complications. IMPRESSIONS: 1. Moderate diverticulosis was noted in the sigmoid colon 2. Blood throughout the colon but no active site of bleeding seen. suspect diverticular bleed 3. A sessile polyp ranging between 3-5mm in size was found in the sigmoid colon; polypectomy was performed with cold forceps 4. Retroflexed views revealed internal hemorrhoids 5. Retroflexed views revealed medium internal hemorrhoids 6. Revealed external hemorrhoids RECOMMENDATIONS: 1. Continue surveillance 2. Bleeding scan if further bleeding. RECALL: Return 1 year Colonoscopy Cyrus Ochoa MD eSigned: Cyrus Ochoa MD 09/13/2017 10:40 AM cc: PATIENT NAME: Anel Bolivar MR#: [id number]
[2017-09-13] MEDS ORDERED: DO NOT ADM ANY ANTICOAGULANT DRUGS PRN (10:47)
--- NOTE | 2017-09-13 12:15 | HHI.NPPN ---
Subjective General Problems: Anemia Renal Failure: Chronic, End Stage Renal Disease Interval History She had repeat colonoscopy today, suspected diverticular bleed. Transfused one unit as well. Due for dialysis. She is upset about her clear kiquid. (Teresa Parekh) Review of Systems General Constitutional: Fatigue (Teresa Parekh) Gastrointestinal Gastrointestinal: Blood/Tarry Stools (Teresa Parekh) Musculoskeletal MS: Pain/Stiffness (Teresa Parekh) Skin Skin: Ulcers (Teresa Parekh) Psych Psych: Depression (Teresa Parekh) Objective Data Data 09/13/17 09/14/17 19:00 07:00 Intake Total 550 ml Balance 550 ml Intake Oral 0 ml IV Total 0 ml Packed Cells 400 ml Other 150 ml # Voids 0 Vital Signs Date Time Temp Pulse Resp B/P (MAP) Pulse Ox O2 Delivery O2 Flow Rate FiO2 09/13/17 11:15 97.7 80 18 145/79 (101) 100 Nasal Cannula 2 09/13/17 11:00 79 18 154/75 (101) 100 Nasal Cannula 2 09/13/17 10:49 97.7 80 21 138/65 (89) 99 Nasal Cannula 2 09/13/17 08:00 77 09/13/17 08:00 98.2 83 16 153/74 (100) 100 09/13/17 07:25 99 09/13/17 07:00 100 Nasal Cannula 2.00 09/13/17 06:00 77 09/13/17 04:00 76 09/13/17 04:00 97.5 76 16 165/79 (107) 99 09/13/17 02:00 69 09/13/17 01:46 97.5 55 16 176/82 100 09/13/17 00:00 62 09/13/17 00:00 97.4 62 16 147/65 (92) 98 09/12/17 22:00 74 09/12/17 20:20 100 21 09/12/17 20:00 84 09/12/17 20:00 97.8 84 21 180/83 (115) 100 09/12/17 19:00 100 Room Air 09/12/17 16:00 97.8 83 21 167/74 (105) 100 09/12/17 15:00 84 (Teresa Parekh) -: 09/13/17 0531 09/13/17 0531 Imaging Last 72 hours Impressions GI Bleed Scan Nuclear Medicine 09/11/17 0000 Signed Impressions: Service Date/Time: Monday, September 11, 2017 15:51 - CONCLUSION: Active hemorrhage observed in what is felt to be transverse colon. Praneeth Villa Jr., MD Abdomen Arteriogram 09/11/17 0000 Signed Impressions: Service Date/Time: Monday, September 11, 2017 20:01 - CONCLUSION: 1. Diagnostic mesenteric angiography fails to show a source of hemorrhage or site of hemorrhage. Praneeth Villa Jr., MD (Teresa Parekh) Physical Exam General Appearance: Well Developed, No Acute Distress, Comfortable, Malnourished (Teresa Parekh) Eyes Eye Exam: Pupils Equal (Teresa Parekh) Throat Throat Exam: Oral Mucosa [place] & Moist (Teresa Parekh) Neck Neck Exam: Neck Supple (Teresa Parekh) Pulmonary Resp Exam: Clear Bilaterally, Breath Sounds Equal (Teresa Parekh) Cardiology CV Exam: Regular, Normal Sinus Rhythm, Good Perfusion (Teresa Parekh) Gastrointestinal/Abdomen GI Exam: Soft, Non-Tender, Bowel Sounds Present, Positive Bowel Movement (Teresa Parekh) Genitourinary Exam: Clear Urine (Teresa Parekh) Musculoskeletal MS Exam: Joints Intact, Normal Tone, Good Strength (Teresa Parekh) Integumentary Skin Exam: Warm, Dry Skin Remarks right foot ulcer, dressing in place. (Teresa Parekh) Extremeties Extremities Exam: No Edema Extremeties Remarks Left arm AVF + bruit/thrill (Teresa Parekh) Neurologic Neuro Exam: Alert, Awake, Oriented, Speech Clear, Moving All Extremities (Teresa Parekh) Psychiatric Psych Exam: Appropriate Responses (Teresa Parekh) Assessment/Plan Discussed Condition With: Patient Assessment Summary: Anemia of CKD, Hypertension, End Stage Renal Disease Problem List: (1) ESRD (end stage renal disease) on dialysis ICD Codes: N18.6 - End stage renal failure on dialysis; Z99.2 - Dependence on renal dialysis Status: Chronic Plan: Continue HD MWF , due today Intermittently monitor renal profile. Fluid restriction to 1500 ml/day. Avoid IVF. Protect left arm from procedures. Regular diet without protein restriction when able to eat, supplements added. (2) GI bleed ICD Codes: K92.2 - Gastrointestinal hemorrhage, unspecified Status: Acute Plan: GI following, s/p EGD/colonoscopy x 2 s/p bleeding scan and angiogram Results reviewed On Protonix, transfuse if needed (3) Anemia ICD Codes: D64.9 - Anemia, unspecified Status: Acute Plan: 5th unit transfused since admission On Epogen with dialysis. She has iron deficiency, on venofer. New GI bleed per above (4) Foot ulcer, right ICD Codes: L97.519 - Non-pressure chronic ulcer of other part of right foot with unspecified severity Status: Acute Plan: s/p debridement. BKA postponed until GIB has been corrected. Vascular surgery following. On Zosyn, given vancomycin. (5) Metabolic bone disease ICD Codes: E88.9 - Metabolic disorder, unspecified; M90.80 - Osteopathy in diseases classified elsewhere, unspecified site Status: Acute Plan: monitor phosphorus intermittently. She is on phosphate binder therapy. (6) Hypertension ICD Codes: I10 - Hypertension Status: Chronic Plan: monitor BP, continue medications. (7) Diabetes mellitus ICD Codes: E11.9 - Type 2 diabetes mellitus without complications Status: Chronic Plan: Continue insulin coverage while hospitalized, maintain blood glucose between 140 and 180. Use D10 @ 20 while NPO. (Teresa Parekh) Plan patient was seen and examined. Agree with above assessment and plan. Dialysis today. (Dao Greene MD) Problem Qualifiers (1) GI bleed: Qualified Codes: K57.91 - Diverticulosis of intestine, part unspecified, without perforation or abscess with bleeding (2) Foot ulcer, right: Qualified Codes: L97.512 - Non-pressure chronic ulcer of other part of right foot with fat layer exposed (3) Hypertension: Qualified Codes: I10 - Essential (primary) hypertension (4) Diabetes mellitus: Qualified Codes: E11.42 - Type 2 diabetes mellitus with diabetic polyneuropathy ; Z79.4 - superintendent container terminal (current) use of insulin Teresa Parekh Sep 13, 2017 12:15 Dao Greene MD Sep 13, 2017 14:49
[2017-09-13] MEDS: cloNIDine HCL 0.1 MG TAB PO PRN (13:33)
--- NOTE | 2017-09-13 15:40 | PD.CAR.PN ---
CVT Progress Note Subjective/Hospital Course: Consult received Full dictation to follow For podiatry debridement Saturday and after that we will evaluate as far as salvageability of the leg is concerned Thanks Jean Paul 09/09/17 Patient with severe peripheral vascular disease gangrene of the right heel and osteomyelitis Every effort has been made by podiatry to salvage the foot and there are no other options left I agree with Dr. Galvez and Dr. Nadir Mello, and the only option at this time is right below-knee amputation Patient scheduled for right below-knee amputation with second and third opinion of additional 2 physicians Today's BKA has to be canceled due to the fact that patient's hemoglobin is 6.7 and due to logistical reasons transfusion of 2 units PRBC was not not administered prior to taking patient to the operating room this afternoon. Considering this is purely elective procedure I believe it's safe and appropriate to transfuse this patient in peace and do surgery tomorrow Patient scheduled for right BKA tomorrow 09/10/17 Patient was initially rescheduled for surgery today however she had some bright red blood per rectum and surgery is now canceled GI bleeding takes precedence and patient will need a full workup on this issue before proceed with amputation If patient needs some gastrointestinal surgery or general surgical intervention I will be available and we'll continue to follow patient Once everything resolved we will reconsider the amputation issue 09/11/17 Hemoglobin again down to 6.9 g/dL as a result of GI bleeding Completely agree with medicine and gastroenterology approach and plan No clear site of bleeding and identified and this is often a problem in patients who have multiple pathologies, all of which could be attributing to the bleeding process including diverticular disease AVM malformations and such Most of these bleeds will see his on the round and only about 10-15% of patients will require actual surgery for the same. Precise identification of the bleeding site being the right or the left colon is imperative should patient require surgery for continuous bleeding, for knowing in their and having to do subtotal colectomy on this lady would double the mortality as opposed only removing the right or the left colon. Sometimes however we cannot identify the bleeding site and then subtotal colectomy remains the only option. Will continue follow patient which you and if patient require surgery I will be available to preform it. As far as the leg is concerned, amputation is now a secondary issue and will not be undertaken until the above issues are resolved and treated satisfactorily. 09/12/17 Patient currently stabilized from GI bleeding Hemoglobin is now stable Angiogram is negative for bleeding but that the requires at least the bleeding of 3 cc/minute to show up On the other hand no clear scan does reveal bleeding which in this case looks like transverse colon Majority of these bleeds will stop on the round with good supportive therapy and patient doesn't need further interventions On the other hand if the patient gets up to 6-8 units of blood transfusions than the risk of surgery is by far exceeded by the risk of repeated transfusions and then surgery is indicated We'll see how patient does and recommend as we go along Discussed with Dr Mi 09/13/17 Patient with diverticulosis and the likely transverse to left colon bleed Agree with Dr. Mi as to the site of bleeding Abdomen is soft active bowel sounds the patient appears to be stable She dropped her hemoglobin bit yesterday he received 1 more units of blood and now it's up again Patient is now 5 units PRBC later and the another unit or 2 and then we'll have to take patient to the operating room for extended left colectomy if this doesn't stop because then the risk of bleeding and problems with transfusion exceeds the risk of surgery We'll see the patient does through the weekend but she is close to needing surgery at this time Objective: Vital Signs Date Time Temp Pulse Resp B/P (MAP) Pulse Ox O2 Delivery O2 Flow Rate FiO2 09/13/17 14:00 83 09/13/17 12:00 82 09/13/17 12:00 97.8 83 18 166/78 (107) 100 09/13/17 11:15 97.7 80 18 145/79 (101) 100 Nasal Cannula 2 09/13/17 11:00 79 18 154/75 (101) 100 Nasal Cannula 2 09/13/17 10:49 97.7 80 21 138/65 (89) 99 Nasal Cannula 2 09/13/17 08:00 77 09/13/17 08:00 98.2 83 16 153/74 (100) 100 09/13/17 07:25 99 09/13/17 07:00 100 Nasal Cannula 2.00 09/13/17 06:00 77 09/13/17 04:00 76 2/2/18 04:00 97.5 76 16 165/79 (107) 99 09/13/17 02:00 69 09/13/17 01:46 97.5 55 16 176/82 100 09/13/17 00:00 62 09/13/17 00:00 97.4 62 16 147/65 (92) 98 09/12/17 22:00 74 09/12/17 20:20 100 21 09/12/17 20:00 84 09/12/17 20:00 97.8 84 21 180/83 (115) 100 09/12/17 19:00 100 Room Air 09/12/17 16:00 97.8 83 21 167/74 (105) 100 Labs: Laboratory Tests Test 09/13/17 05:31 White Blood Count 6.9 TH/MM3 (4.0-11.0) Red Blood Count 3.19 MIL/MM3 (4.00-5.30) Hemoglobin 9.1 GM/DL (11.6-15.3) Hematocrit 26.2 % (35.0-46.0) Mean Corpuscular Volume 82.2 FL (80.0-100.0) Mean Corpuscular Hemoglobin 28.5 PG (27.0-34.0) Mean Corpuscular Hemoglobin Concent 34.7 % (32.0-36.0) Red Cell Distribution Width 17.8 % (11.6-17.2) Platelet Count 225 TH/MM3 (150-450) Mean Platelet Volume 8.5 FL (7.0-11.0) Neutrophils (%) (Auto) 74.8 % (16.0-70.0) Lymphocytes (%) (Auto) 14.3 % (9.0-44.0) Monocytes (%) (Auto) 7.3 % (0.0-8.0) Eosinophils (%) (Auto) 3.2 % (0.0-4.0) Basophils (%) (Auto) 0.4 % (0.0-2.0) Neutrophils # (Auto) 5.2 TH/MM3 (1.8-7.7) Lymphocytes # (Auto) 1.0 TH/MM3 (1.0-4.8) Monocytes # (Auto) 0.5 TH/MM3 (0-0.9) Eosinophils # (Auto) 0.2 TH/MM3 (0-0.4) Basophils # (Auto) 0.0 TH/MM3 (0-0.2) CBC Comment DIFF FINAL Differential Comment Blood Urea Nitrogen 33 MG/DL (7-18) Creatinine 6.73 MG/DL (0.50-1.00) Random Glucose 138 MG/DL (74-106) Total Protein 6.4 GM/DL (6.4-8.2) Calcium Level 7.2 MG/DL (8.5-10.1) Phosphorus Level 6.2 MG/DL (2.5-4.9) Sodium Level 141 MEQ/L (136-145) Potassium Level 4.1 MEQ/L (3.5-5.1) Chloride Level 99 MEQ/L (98-107) Carbon Dioxide Level 27.9 MEQ/L (21.0-32.0) Anion Gap 14 MEQ/L (5-15) Estimat Glomerular Filtration Rate 7 ML/MIN (>89) Protein Corrected Calcium 7.6 MG/DL (8.5-10.1) Result Diagram: 09/13/17 0531 09/13/17 0531 Amalia De La Cruz MD Sep 13, 2017 15:40
[2017-09-13] MEDS: EPOETIN ALFA 10,000 UNITS/ML VIAL IV PUSH PRN (15:45)
[2017-09-13] MEDS: diphenhydrAMINE HCL 25 MG CAP PO PRN ×2 (18:02→20:08)
[2017-09-13 19:32] LABS: HEMATOCRIT 26.5 % (35.0-46.0); HEMOGLOBIN 8.9 GM/DL (11.6-15.3)
[2017-09-13] MEDS: MIRTAZAPINE 15 MG TAB PO SCH (20:08)
[2017-09-13] MEDS: ACETAMINOPHEN/HYDROcodone 325 MG/5 MG TAB PO PRN (20:08)
[2017-09-13] MEDS: hydrOXYzine HCL 25 MG TAB PO SCH (20:08)
[2017-09-14] VITALS (14 sets, daily range): BP systolic 129–181; BP diastolic 61–79; PULSE 79–89; RESP 15–20; TEMP 98.9–99.9; O2SAT 90–100
[2017-09-14 01:42] LABS: HEMATOCRIT 24.2 % (35.0-46.0)
[2017-09-14 04:09] LABS: AUTOMATED NEUTROPHIL # 5.2 TH/MM3 (1.8-7.7); BASOPHIL % 0.5 % (0.0-2.0); EOSINOPHIL # 0.5 TH/MM3 (0-0.4); EOSINOPHIL % 5.9 % (0.0-4.0); HEMATOCRIT 24.6 % (35.0-46.0); HEMOGLOBIN 8.3 GM/DL (11.6-15.3); LYMPHOCYTE # 1.6 TH/MM3 (1.0-4.8); MEAN CORPUSCULAR HGB CONC 33.8 % (32.0-36.0); MEAN PLATELET VOLUME 8.5 FL (7.0-11.0); MONO % 11.2 % (0.0-8.0); MONOCYTE # 0.9 TH/MM3 (0-0.9); NEUT % 63.4 % (16.0-70.0); PLATELET COUNT 234 TH/MM3 (150-450); RED BLOOD COUNT 2.97 MIL/MM3 (4.00-5.30); WHITE BLOOD COUNT 8.2 TH/MM3 (4.0-11.0)
[2017-09-14] MEDS: PIPERACIL-TAZO 2.25 GM PREMIX 50 ML IV SCH ×3 (04:40→21:04)
[2017-09-14 04:54] LABS: ALBUMIN 1.9 GM/DL (3.4-5.0); ALKALINE PHOSPHATASE 90 U/L (45-117); ALT (GPT) LESS THAN 6 U/L (10-53); AST (GOT) 15 U/L (15-37); BICARBONATE 31.4 MEQ/L (21.0-32.0); BLOOD UREA NITROGEN 22 MG/DL (7-18); CALCIUM 7.2 MG/DL (8.5-10.1); CALCIUM-PROTEIN CORRECTED 7.6 MG/DL (8.5-10.1); CHLORIDE 100 MEQ/L (98-107); CREATININE 5.19 MG/DL (0.50-1.00); GLOMERULAR FILTRATION RATE 10 ML/MIN (>89); GLUCOSE,RANDOM 86 MG/DL (74-106); SODIUM (NA) 140 MEQ/L (136-145); TOTAL BILIRUBIN ADULT 0.3 MG/DL (0.2-1.0); TOTAL PROTEIN 6.3 GM/DL (6.4-8.2)
[2017-09-14] MEDS: LEVOTHYROXINE SODIUM 75 MCG TAB PO SCH (05:37)
[2017-09-14] MEDS: diphenhydrAMINE HCL 25 MG CAP PO PRN (06:40)
[2017-09-14] MEDS: INSULIN ASPART SUPPLEMENTAL SCALE SQ SCH ×4 (08:00→21:00)
[2017-09-14] MEDS: DOCUSATE SODIUM 50 MG/SENNA 8.6 MG TAB PO SCH ×3 (09:00→21:04)
[2017-09-14] MEDS: SODIUM CHLORIDE 0.9% FLUSH 10 ML FLUSH IV FLUSH SCH ×2 (09:00→21:04)
[2017-09-14] MEDS: VITAMIN B CMPLX/VITC/FOLIC AC CAP PO SCH (09:00)
[2017-09-14] MEDS: PANTOPRAZOLE SODIUM 40 MG VIAL IV PUSH SCH ×2 (09:20→21:04)
[2017-09-14] MEDS: SEVELAMER CARBONATE 800 MG TAB PO SCH ×3 (09:20→17:00)
[2017-09-14] MEDS: DEXTROSE 10% INJ 500 ML IV SCH (09:22)
[2017-09-14] MEDS: IRON SUCROSE INJ 100 MG in SODIUM CHLORIDE 0.9% INJ 100 ML IV SCH (09:25)
--- NOTE | 2017-09-14 10:53 | PD.CAR.PN ---
CVT Progress Note Subjective/Hospital Course: Consult received Full dictation to follow For podiatry debridement Saturday and after that we will evaluate as far as salvageability of the leg is concerned Thanks Jean Paul 09/09/17 Patient with severe peripheral vascular disease gangrene of the right heel and osteomyelitis Every effort has been made by podiatry to salvage the foot and there are no other options left I agree with Dr. Galvez and Dr. Nadir Mello, and the only option at this time is right below-knee amputation Patient scheduled for right below-knee amputation with second and third opinion of additional 2 physicians Today's BKA has to be canceled due to the fact that patient's hemoglobin is 6.7 and due to logistical reasons transfusion of 2 units PRBC was not not administered prior to taking patient to the operating room this afternoon. Considering this is purely elective procedure I believe it's safe and appropriate to transfuse this patient in peace and do surgery tomorrow Patient scheduled for right BKA tomorrow 09/10/17 Patient was initially rescheduled for surgery today however she had some bright red blood per rectum and surgery is now canceled GI bleeding takes precedence and patient will need a full workup on this issue before proceed with amputation If patient needs some gastrointestinal surgery or general surgical intervention I will be available and we'll continue to follow patient Once everything resolved we will reconsider the amputation issue 09/11/17 Hemoglobin again down to 6.9 g/dL as a result of GI bleeding Completely agree with medicine and gastroenterology approach and plan No clear site of bleeding and identified and this is often a problem in patients who have multiple pathologies, all of which could be attributing to the bleeding process including diverticular disease AVM malformations and such Most of these bleeds will see his on the round and only about 10-15% of patients will require actual surgery for the same. Precise identification of the bleeding site being the right or the left colon is imperative should patient require surgery for continuous bleeding, for knowing in their and having to do subtotal colectomy on this lady would double the mortality as opposed only removing the right or the left colon. Sometimes however we cannot identify the bleeding site and then subtotal colectomy remains the only option. Will continue follow patient which you and if patient require surgery I will be available to preform it. As far as the leg is concerned, amputation is now a secondary issue and will not be undertaken until the above issues are resolved and treated satisfactorily. 09/12/17 Patient currently stabilized from GI bleeding Hemoglobin is now stable Angiogram is negative for bleeding but that the requires at least the bleeding of 3 cc/minute to show up On the other hand no clear scan does reveal bleeding which in this case looks like transverse colon Majority of these bleeds will stop on the round with good supportive therapy and patient doesn't need further interventions On the other hand if the patient gets up to 6-8 units of blood transfusions than the risk of surgery is by far exceeded by the risk of repeated transfusions and then surgery is indicated We'll see how patient does and recommend as we go along Discussed with Dr Mi 09/13/17 Patient with diverticulosis and the likely transverse to left colon bleed Agree with Dr. Mi as to the site of bleeding Abdomen is soft active bowel sounds the patient appears to be stable She dropped her hemoglobin bit yesterday he received 1 more units of blood and now it's up again Patient is now 5 units PRBC later and the another unit or 2 and then we'll have to take patient to the operating room for extended left colectomy if this doesn't stop because then the risk of bleeding and problems with transfusion exceeds the risk of surgery We'll see the patient does through the weekend but she is close to needing surgery at this time 09/14/17 Patient doing okay now Abdomen is soft active bowel sounds Hemoglobin appears to be relatively stable between 9 and 8 g/dL and holding. As noted above patient has received 5 units of PRBCs up to now and once we get to point of 67 or 8 units and patient continues to lose blood, then the risk of surgery is less than the risk of repeated transfusions and at that point patient would need left colectomy. Discussed with Dr. Mi and we agree on being very conservative in this situation and doing everything to avoid surgery in this lady. Will continue to follow Objective: Vital Signs Date Time Temp Pulse Resp B/P (MAP) Pulse Ox O2 Delivery O2 Flow Rate FiO2 09/14/17 08:00 99.2 81 19 147/67 (93) 97 09/14/17 08:00 83 09/14/17 07:00 100 Room Air 09/14/17 06:00 85 09/14/17 04:00 79 09/14/17 04:00 99.9 79 18 130/63 (85) 90 09/14/17 02:00 80 09/14/17 00:00 85 09/14/17 00:00 99.4 85 20 129/61 (83) 90 09/13/17 22:00 90 09/13/17 20:00 94 09/13/17 20:00 99.0 94 23 160/71 (100) 94 09/13/17 19:00 100 Room Air 09/13/17 18:00 92 09/13/17 16:00 84 09/13/17 16:00 98.6 84 21 165/74 (104) 100 09/13/17 14:00 83 09/13/17 12:00 82 09/13/17 12:00 97.8 83 18 166/78 (107) 100 09/13/17 11:15 97.7 80 18 145/79 (101) 100 Nasal Cannula 2 09/13/17 11:00 79 18 154/75 (101) 100 Nasal Cannula 2 Labs: Laboratory Tests Test 09/14/17 01:08 09/14/17 03:34 Hemoglobin 8.0 GM/DL (11.6-15.3) 8.3 GM/DL (11.6-15.3) Hematocrit 24.2 % (35.0-46.0) 24.6 % (35.0-46.0) White Blood Count 8.2 TH/MM3 (4.0-11.0) Red Blood Count 2.97 MIL/MM3 (4.00-5.30) Mean Corpuscular Volume 83.0 FL (80.0-100.0) Mean Corpuscular Hemoglobin 28.0 PG (27.0-34.0) Mean Corpuscular Hemoglobin Concent 33.8 % (32.0-36.0) Red Cell Distribution Width 18.0 % (11.6-17.2) Platelet Count 234 TH/MM3 (150-450) Mean Platelet Volume 8.5 FL (7.0-11.0) Neutrophils (%) (Auto) 63.4 % (16.0-70.0) Lymphocytes (%) (Auto) 19.0 % (9.0-44.0) Monocytes (%) (Auto) 11.2 % (0.0-8.0) Eosinophils (%) (Auto) 5.9 % (0.0-4.0) Basophils (%) (Auto) 0.5 % (0.0-2.0) Neutrophils # (Auto) 5.2 TH/MM3 (1.8-7.7) Lymphocytes # (Auto) 1.6 TH/MM3 (1.0-4.8) Monocytes # (Auto) 0.9 TH/MM3 (0-0.9) Eosinophils # (Auto) 0.5 TH/MM3 (0-0.4) Basophils # (Auto) 0.0 TH/MM3 (0-0.2) CBC Comment DIFF FINAL Differential Comment Blood Urea Nitrogen 22 MG/DL (7-18) Creatinine 5.19 MG/DL (0.50-1.00) Random Glucose 86 MG/DL (74-106) Total Protein 6.3 GM/DL (6.4-8.2) Albumin 1.9 GM/DL (3.4-5.0) Calcium Level 7.2 MG/DL (8.5-10.1) Alkaline Phosphatase 90 U/L (45-117) Aspartate Amino Transf (AST/SGOT) 15 U/L (15-37) Alanine Aminotransferase (ALT/SGPT) LESS THAN 6 U/L (10-53) Total Bilirubin 0.3 MG/DL (0.2-1.0) Sodium Level 140 MEQ/L (136-145) Potassium Level 4.4 MEQ/L (3.5-5.1) Chloride Level 100 MEQ/L (98-107) Carbon Dioxide Level 31.4 MEQ/L (21.0-32.0) Anion Gap 9 MEQ/L (5-15) Estimat Glomerular Filtration Rate 10 ML/MIN (>89) Protein Corrected Calcium 7.6 MG/DL (8.5-10.1) Result Diagram: 09/14/17 0334 09/14/17 0334 Amalia De La Cruz MD Sep 14, 2017 10:53
--- NOTE | 2017-09-14 10:56 | HHI.FPPN ---
Subjective Remarks Patient states that she is doing okay this morning and has no complaints, she denies abdominal pain, chest pain, all shortness of breath. She states that her oxygen level drops at night so she uses oxygen at home but during the day she is totally fine. Her pain is well controlled. Patient's nurse at bedside states that she did not have any bloody stools overnights or this morning. Objective Vitals Vital Signs Date Time Temp Pulse Resp B/P (MAP) Pulse Ox O2 Delivery O2 Flow Rate FiO2 09/14/17 10:00 87 09/14/17 08:00 99.2 81 19 147/67 (93) 97 09/14/17 08:00 83 09/14/17 07:00 100 Room Air 09/14/17 06:00 85 09/14/17 04:00 79 09/14/17 04:00 99.9 79 18 130/63 (85) 90 09/14/17 02:00 80 09/14/17 00:00 85 09/14/17 00:00 99.4 85 20 129/61 (83) 90 09/13/17 22:00 90 09/13/17 20:00 94 09/13/17 20:00 99.0 94 23 160/71 (100) 94 09/13/17 19:00 100 Room Air 09/13/17 18:00 92 09/13/17 16:00 84 09/13/17 16:00 98.6 84 21 165/74 (104) 100 09/13/17 14:00 83 09/13/17 12:00 82 09/13/17 12:00 97.8 83 18 166/78 (107) 100 09/13/17 11:15 97.7 80 18 145/79 (101) 100 Nasal Cannula 2 09/13/17 11:00 79 18 154/75 (101) 100 Nasal Cannula 2 I/O 09/13/17 09/13/17 09/13/17 09/14/17 09/14/17 09/14/17 07:00 15:00 23:00 07:00 15:00 23:00 Intake Total 1190 ml 550 ml 640 ml 460 ml Output Total 1200 ml 6000 ml Balance -10 ml 550 ml -5360 ml 460 ml Intake Oral 840 ml 0 ml 640 ml 360 ml IV Total 350 ml 0 ml 100 ml Packed Cells 400 ml Other 150 ml Stool Total 1200 ml Hemodialysis 6000 ml # Voids 0 0 0 # Bowel Movements 1 Result Diagram: 09/14/1733309/14/17333 Objective Remarks GEN: Well-developed, well-nourished patient. No acute distress. CV: Regular rate and rhythm without obvious murmurs LUNGS: Coarse breath sounds with rhonchi bilaterally, prolonged expiratory phase GI: nondistended, soft, NTTP, no rebound. BS present. EXT: No edema, chronic venous stasis changes, present. No calf tenderness. Right foot wrapped in Sarath bandage. Clean and dry. NEURO/PSYCH: Awake, alert. Appropriate insight and judgment. Normal speech A/P Assessment and Plan 72 y/o with chronic history of HTN, DM, ESRD, chronic foot wounds presents from podiatry clinic for evaluation. Admitted for osteomyelitis with debridement and possible amputation. Developed a GI bleed during hospitalization. Repeat colonoscopy was performed yesterday 09/13/2017 with no bleeding source identified. Per vascular surgery and GI, patient may need a hemicolectomy if she continues to bleed during this hospitalization. Discharge Planning Undetermined at this time, pending definitive treatment of osteomyelitis. Problem List: (1) GI bleed ICD Codes: K92.2 - Gastrointestinal hemorrhage, unspecified Status: Acute Plan: No bloody stools overnight Underwent a repeat colonoscopy yesterday 09/13/2017. Results as follows: 1. Moderate diverticulosis was noted in the sigmoid colon 2. Blood throughout the colon but no active site of bleeding seen. suspect diverticular bleed 3. A sessile polyp ranging between 3-5mm in size was found in the sigmoid colon ; polypectomy was performed with cold forceps Hemoglobin 8.3 at 3 AM this morning compared to 9.1 yesterday 09/13 at 9AM. We will repeat at 1 PM Scope in July 2017 showed, 1 small polyp, diverticulosis, few small possible AVMs in the ascending colon. PLAN: GI and vascular surgery on board - appreciate recommendations H&H at 1 PM and 9 PM Continue IV Protonix 40 mg IV BID (2) Osteomyelitis of ankle or foot, right, acute ICD Codes: M86.171 - Other acute osteomyelitis, right ankle and foot Status: Acute Plan: Patient with history of chronic right foot wounds that was currently being managed by podiatry (Dr. Bentley). Was hospitalized in July 2017 and underwent surgical exploration and had a wound VAC placed at that time. Admitted per the recommendation of podiatry due to worsening ulcer/wounds. MRI significant for osteomyelitis and multiple bones of the foot and ankle. -Wound cultures showing Corynebacterium sp. -Blood cultures NGTD -Will consult ID for assistance with antibiotic selection and duration. Podiatry consulted: appreciate recommendations * 09/07/17: Debridement of ulcers on right foot/ankle 3 * Plan on 09/[address] Reaves - postponed secondary to acute gastrointestinal bleeding. Focus is on GI bleed for now per Dr. Reaves Vascular consulted: appreciate recommendations * Pt with severe vascular changes, diabetic neuropathy Imaging: * MRI foot: Osteomyelitis develop at the fifth metatarsal base. Slight worsening osteomyelitis of the great toe head of the proximal phalanx and distal half of the distal phalanx. Worsening osteomyelitis of the fibular sesamoid. The superficial osteomyelitis of the tibial sesamoid not significantly changed. No drainable abscess. * MRI ankle: Severe soft tissue ulceration laterally and posteromedially of the ankle/hindfoot. Fluid collection in the posterior lateral gutter, potentially an abscess. Osteomyelitis of the calcaneus. Osteomyelitis of the distal fibula possible osteomyelitis focally of the posterior medial aspect of the talus. * Foot x-ray: Osteopenia, no acute bony abnormality. Medications * Vancomycin (09/06- per nephrology dosing/titration * Zosyn (09/07- (3) ESRD (end stage renal disease) on dialysis ICD Codes: N18.6 - End stage renal failure on dialysis; Z99.2 - Dependence on renal dialysis Status: Chronic Plan: Dialysis Saturday, Saturday, Saturday typically. Sees Dr. Buchanan, supervisor compressed yeast outpatient. No urine output Nephrology consulted: Appreciate recommendations * Resume dialysis 3x/wk * Monitor phosphorus intermittently, use binders as appropriate. * Fluid restriction (4) Diabetes mellitus ICD Codes: E11.9 - Type 2 diabetes mellitus without complications Status: Chronic Plan: History of long-term diabetes on insulin at home -Sliding scale insulin -Monitor accuchecks -May need basal insulin, once eating again on a more routine basis as more surgeries are expected (5) Hypertension ICD Codes: I10 - Hypertension Status: Chronic Plan: BP elevated on admission the patient did miss dialysis on day of admission. Expect BP to improve as she resumes routine medications and dialysis. -Continue home amlodipine (6) Hypothyroidism ICD Codes: E03.9 - Hypothyroidism Status: Chronic Plan: Continue home Synthroid (7) FEN Status: Acute Plan: Fluids: None, on dialysis. Electrolytes: monitor, replace PRN Nutrition: As guided by GI. DVT ppx: hold chemoppx due to surgery, SCDs Will discuss with Dr. Wiseman Problem Qualifiers (1) GI bleed: Qualified Codes: K57.91 - Diverticulosis of intestine, part unspecified, without perforation or abscess with bleeding (2) Diabetes mellitus: Qualified Codes: E11.42 - Type 2 diabetes mellitus with diabetic polyneuropathy ; Z79.4 - terminal carman (current) use of insulin (3) Hypertension: Qualified Codes: I10 - Essential (primary) hypertension (4) Hypothyroidism: Qualified Codes: E03.9 - Hypothyroidism, unspecified Lida Vaughan MD R2 Sep 14, 2017 10:56
[2017-09-14 13:35] LABS: HEMATOCRIT 26.4 % (35.0-46.0); HEMOGLOBIN 8.7 GM/DL (11.6-15.3)
--- NOTE | 2017-09-14 13:40 | HHI.GIFU ---
Subjective Remarks Sitting on side of the bed, denies bleeding today, hasn't had BM today, last one was yesterday with blood in stools. Denies any other GI issues (Hudson Jiang) Objective Vitals I&O Vital Signs Date Time Temp Pulse Resp B/P (MAP) Pulse Ox O2 Delivery O2 Flow Rate FiO2 09/14/17 12:00 99.0 88 20 156/70 (98) 97 09/14/17 12:00 88 09/14/17 10:00 87 09/14/17 08:00 99.2 81 19 147/67 (93) 97 09/14/17 08:00 83 09/14/17 07:00 100 Room Air 09/14/17 06:00 85 09/14/17 04:00 79 09/14/17 04:00 99.9 79 18 130/63 (85) 90 09/14/17 02:00 80 09/14/17 00:00 85 09/14/17 00:00 99.4 85 20 129/61 (83) 90 09/13/17 22:00 90 09/13/17 20:00 94 09/13/17 20:00 99.0 94 23 160/71 (100) 94 09/13/17 19:00 100 Room Air 09/13/17 18:00 92 09/13/17 16:00 84 09/13/17 16:00 98.6 84 21 165/74 (104) 100 09/13/17 14:00 83 I/O 09/13/17 09/13/17 09/13/17 09/14/17 09/14/17 09/14/17 07:00 15:00 23:00 07:00 15:00 23:00 Intake Total 1190 ml 550 ml 640 ml 460 ml Output Total 1200 ml 6000 ml Balance -10 ml 550 ml -5360 ml 460 ml Intake Oral 840 ml 0 ml 640 ml 360 ml IV Total 350 ml 0 ml 100 ml Packed Cells 400 ml Other 150 ml Stool Total 1200 ml Hemodialysis 6000 ml # Voids 0 0 0 # Bowel Movements 1 Laboratory Laboratory Tests Test 09/13/17 18:40 09/14/17 01:08 09/14/17 03:34 09/14/17 13:00 Hemoglobin 8.9 8.0 8.3 Hematocrit 26.5 24.2 24.6 White Blood Count 8.2 Red Blood Count 2.97 Mean Corpuscular Volume 83.0 Mean Corpuscular Hemoglobin 28.0 Mean Corpuscular Hemoglobin Concent 33.8 Red Cell Distribution Width 18.0 Platelet Count 234 Mean Platelet Volume 8.5 Neutrophils (%) (Auto) 63.4 Lymphocytes (%) (Auto) 19.0 Monocytes (%) (Auto) 11.2 Eosinophils (%) (Auto) 5.9 Basophils (%) (Auto) 0.5 Neutrophils # (Auto) 5.2 Lymphocytes # (Auto) 1.6 Monocytes # (Auto) 0.9 Eosinophils # (Auto) 0.5 Basophils # (Auto) 0.0 CBC Comment DIFF FINAL Differential Comment Blood Urea Nitrogen 22 Creatinine 5.19 Random Glucose 86 Total Protein 6.3 Albumin 1.9 Calcium Level 7.2 Alkaline Phosphatase 90 Aspartate Amino Transf (AST/SGOT) 15 Alanine Aminotransferase (ALT/SGPT) LESS THAN 6 Total Bilirubin 0.3 Sodium Level 140 Potassium Level 4.4 Chloride Level 100 Carbon Dioxide Level 31.4 Anion Gap 9 Estimat Glomerular Filtration Rate 10 Protein Corrected Calcium 7.6 Date/Time Source Procedure Growth Status 09/06/17 19:45 Blood Peripheral Aerobic Blood Culture - Final NO GROWTH IN 5 DAYS Complete 09/06/17 19:45 Blood Peripheral Anaerobic Blood Culture - Final NO GROWTH IN 5 DAYS Complete 09/07/17 13:31 Wound Ankle Fungal Smear - Final NO FUNGAL ELEMENTS SEEN. Resulted 09/07/17 13:31 Wound Ankle Fungal Culture Pending Resulted Imaging Last Impressions GI Bleed Scan Nuclear Medicine 09/11/17 0000 Signed Impressions: Service Date/Time: Monday, September 11, 2017 15:51 - CONCLUSION: Active hemorrhage observed in what is felt to be transverse colon. Praneeth Villa Jr., MD Abdomen Arteriogram 09/11/17 0000 Signed Impressions: Service Date/Time: Monday, September 11, 2017 20:01 - CONCLUSION: 1. Diagnostic mesenteric angiography fails to show a source of hemorrhage or site of hemorrhage. Praneeth Villa Jr., MD Foot MRI 09/07/17 0000 Signed Impressions: Service Date/Time: Thursday, September 07, 2017 17:51 - CONCLUSION: 1. Osteomyelitis has developed at the fifth metatarsal base. 2. Slightly worsening osteomyelitis great toe head of the proximal phalanx and distal half of the distal phalanx. 3. Worsening osteomyelitis of the fibular sesamoid. There superficial osteomyelitis of the tibial sesamoid not significantly changed. 4. No drainable abscess. 5. Signal changes of the medial and intermediate cuneiforms and the third metatarsal base are most likely reactive. Ankle MRI to follow and please refer to that report for ankle and hindfoot findings. Jacob Hall MD Ankle MRI 09/07/17 0000 Signed Impressions: Service Date/Time: Thursday, September 07, 2017 17:51 - CONCLUSION: 1. Severe soft tissue ulceration laterally and posteromedially of the ankle/hindfoot. 2. 2.8 cm fluid collection in the posterolateral gutter, potentially an abscess. 3. Osteomyelitis of the calcaneus, scattered/patchy but most of the bone is involved, especially laterally. 4. Also osteomyelitis of the distal 4 cm of the fibula. 5. Possible osteomyelitis focally of the posteromedial aspect of the talus. Please see above. 6. Exposed peroneal tendons but grossly intact. Considerable tendinosis of the flexor hallucis longus at the level of the distal leg and certainly could be infectious given the other findings. Patient had MRI of the right foot today. Please refer to that report for midfoot and forefoot findings. Jacob Hall MD Chest X-Ray 09/06/17 1926 Signed Impressions: Service Date/Time: Wednesday, September 06, 2017 19:55 - CONCLUSION: 1. Patchy subsegmental mostly basilar airspace disease with cardiomegaly. No effusion. Daniel Hinkle MD Foot X-Ray 09/06/17 0000 Signed Impressions: Service Date/Time: Wednesday, September 06, 2017 20:00 - CONCLUSION: 1. Osteopenia. No acute bony abnormality. Daniel Hinkle MD Physical Exam HEENT: PERRL; normocephalic; atraumatic; no jaundice. CHEST: Diminished CARDIAC: RRR ABDOMEN: Soft, nondistended, nontender; no hepatosplenomegaly; bowel sounds are present in all four quadrants. EXTREMITIES: No clubbing, cyanosis, or edema. SKIN: Normal; no rash; no jaundice. SCIENCE TUTOR: No focal deficits; alert and oriented times three. (Hudson Jiang) Assessment and Plan Plan ASSESSMENT - anemia, hematochezia - lower GIB. hgb dropped to 6.9 s/p PRBC x 3. last colonoscopy 07/31/17 found polyp, diverticulosis, few small poss AVMs in the ascendign colon EGD 07/23/17 found schatzki ring. previous hx frequent use NSAIDs 09/12/17 hgb dropped to 6.9, improved after 1 x PRBC and stable since then. s/p EGD 09/11/17 found erythematous gastritis, colonoscopy found moderate diverticulosis sigmoid, blood throughout colon no active bleed seen. STAT bleed scan indicated active hemorrhage transverse colon. Pt had 2 maroon stool over night, no bleeding today. Pt insists on eating today so will do colonoscopy tomorrow and reprep her tonight. SHe is agreeable with this option and refused to remain NPO to do colonoscopy today or on clear liquids and do tomorrow. 09/14/17 no bleeding today so far, no Bm today, vascular surgeon the case who opted to follow more conservative measures for now. angiogram negative hgb 8.3 today which is declining. s/p colonoscopy on 09/13/2017. Results as follows: 1. Moderate diverticulosis was noted in the sigmoid colon 2. Blood throughout the colon but no active site of bleeding seen. suspect diverticular bleed 3. A sessile polyp ranging between 3-5mm in size was found in the sigmoid colon ; polypectomy was performed with cold forceps PLAN - renal diet - Consider colectomy for persistent bleeding - GI will sign off, recommend surgery for persistent bleeding - monitor HH - transfuse as needed pt seen by myself and Dr Ochoa and this note is written on his behalf (Hudson Jiang) Physician Comments Seen and examined with SHERI, no bleding. Suspect diverticular bleed. discussed with Dr. Reaves, if rebleeds colectomy. Gi will sign off, reconsult as needed. Thank you (Cyrus Ochoa MD) Hudson Jiang Sep 14, 2017 13:40 Cyrus Ochoa MD Sep 15, 2017 11:55
--- NOTE | 2017-09-14 14:13 | HHI.NPPN ---
Subjective General Problems: Anemia Renal Failure: Chronic, End Stage Renal Disease Review of Systems General Constitutional: Fatigue Gastrointestinal Gastrointestinal: Blood/Tarry Stools Musculoskeletal MS: Pain/Stiffness Skin Skin: Ulcers Psych Psych: Depression Objective Data Data Vital Signs Date Time Temp Pulse Resp B/P (MAP) Pulse Ox O2 Delivery O2 Flow Rate FiO2 09/14/17 12:00 99.0 88 20 156/70 (98) 97 09/14/17 12:00 88 09/14/17 10:00 87 09/14/17 08:00 99.2 81 19 147/67 (93) 97 09/14/17 08:00 83 09/14/17 07:00 100 Room Air 09/14/17 06:00 85 09/14/17 04:00 79 09/14/17 04:00 99.9 79 18 130/63 (85) 90 09/14/17 02:00 80 09/14/17 00:00 85 09/14/17 00:00 99.4 85 20 129/61 (83) 90 09/13/17 22:00 90 09/13/17 20:00 94 09/13/17 20:00 99.0 94 23 160/71 (100) 94 09/13/17 19:00 100 Room Air 09/13/17 18:00 92 09/13/17 16:00 84 09/13/17 16:00 98.6 84 21 165/74 (104) 100 -: 09/14/17 1300 09/14/17 0334 Physical Exam General Appearance: Well Developed, No Acute Distress, Comfortable, Malnourished Eyes Eye Exam: Pupils Equal Throat Throat Exam: Oral Mucosa [place] & Moist Neck Neck Exam: Neck Supple Pulmonary Resp Exam: Clear Bilaterally, Breath Sounds Equal Cardiology CV Exam: Regular, Normal Sinus Rhythm, Good Perfusion Gastrointestinal/Abdomen GI Exam: Soft, Non-Tender, Bowel Sounds Present, Positive Bowel Movement Genitourinary Exam: Clear Urine Musculoskeletal MS Exam: Joints Intact, Normal Tone, Good Strength Integumentary Skin Exam: Warm, Dry Extremeties Extremities Exam: No Edema Neurologic Neuro Exam: Alert, Awake, Oriented, Speech Clear, Moving All Extremities Psychiatric Psych Exam: Appropriate Responses Assessment/Plan Discussed Condition With: Patient Assessment Summary: Anemia of CKD, Hypertension, End Stage Renal Disease Problem List: (1) ESRD (end stage renal disease) on dialysis ICD Codes: N18.6 - End stage renal failure on dialysis; Z99.2 - Dependence on renal dialysis Status: Chronic Plan: Continue HD MWF , done yesterday 3 L UF Intermittently monitor renal profile. Fluid restriction to 1500 ml/day. Avoid IVF. Protect left arm from procedures. Regular diet without protein restriction when able to eat, supplements added. (2) GI bleed ICD Codes: K92.2 - Gastrointestinal hemorrhage, unspecified Status: Acute Plan: GI following, s/p EGD/colonoscopy x 2 s/p bleeding scan and angiogram Results reviewed On Protonix, transfuse if needed (3) Anemia ICD Codes: D64.9 - Anemia, unspecified Status: Acute Plan: 5th unit transfused since admission On Epogen with dialysis. She has iron deficiency, on venofer. New GI bleed per above (4) Foot ulcer, right ICD Codes: L97.519 - Non-pressure chronic ulcer of other part of right foot with unspecified severity Status: Acute Plan: s/p debridement. BKA postponed until GIB has been corrected. Vascular surgery following. On Zosyn, given vancomycin. (5) Metabolic bone disease ICD Codes: E88.9 - Metabolic disorder, unspecified; M90.80 - Osteopathy in diseases classified elsewhere, unspecified site Status: Acute Plan: monitor phosphorus intermittently. She is on phosphate binder therapy. (6) Hypertension ICD Codes: I10 - Hypertension Status: Chronic Plan: monitor BP, continue medications. (7) Diabetes mellitus ICD Codes: E11.9 - Type 2 diabetes mellitus without complications Status: Chronic Plan: Continue insulin coverage while hospitalized, maintain blood glucose between 140 and 180. Use D10 @ 20 while NPO. Problem Qualifiers (1) GI bleed: Qualified Codes: K57.91 - Diverticulosis of intestine, part unspecified, without perforation or abscess with bleeding (2) Foot ulcer, right: Qualified Codes: L97.512 - Non-pressure chronic ulcer of other part of right foot with fat layer exposed (3) Hypertension: Qualified Codes: I10 - Essential (primary) hypertension (4) Diabetes mellitus: Qualified Codes: E11.42 - Type 2 diabetes mellitus with diabetic polyneuropathy ; Z79.4 - penitentiary (current) use of insulin Kandi Castanon MD Sep 14, 2017 14:13
[2017-09-14] MEDS: RESP: ALBUTEROL 2.5 MG/IPRATROPIUM 0.5 MG NEB (SCH) NEB ×2 (15:51→20:37)
--- NOTE | 2017-09-14 20:39 | HHI.FPPN ---
Addendum to progress note ADDENDUM Reason for addendum: Additonal documentation Additional information Received a page from patient's nurse to report that she had 3 large bloody bowel movements totalling between 500ml to 1L. Patient was asymptomatic, she denies chest pain, shortness of breath, dizziness or abdominal pain. Objective: Gen: Patient lying comfortably in bed, NAD CV: RRR Resp: Coarse breath sounds, not much change from earlier Assessment/Plan: 72F with recurrent GI bleed. Dr. Reaves was called by the charge nurse who stated that he might come in tonight or tomorrow morning to perform a hemicolectomy of her right colon due to multiple diverticula. He also requested an derrick operator consult to assist with management in case she deteriorates and needs resuscitation. Another large bore IV was placed and H/H will be checked q6h. NPO for possible surgery overnight or in the am Continue Protonix 40 mg Q12hm - transition to drip if worsened bleeding Eko,Lida Balbuena MD R2 Sep 14, 2017 20:39
[2017-09-14] MEDS: ZOLPIDEM TARTRATE 5 MG TAB PO PRN (21:04)
[2017-09-14] MEDS: MIRTAZAPINE 15 MG TAB PO SCH (21:04)
[2017-09-14] MEDS: hydrOXYzine HCL 25 MG TAB PO SCH (21:04)
[2017-09-14] MEDS: DEXTROSE 50% IN WATER 50 ML VIAL(D50) IV PUSH PRN (22:21)
[2017-09-15] VITALS (14 sets, daily range): BP systolic 133–179; BP diastolic 55–79; PULSE 80–97; RESP 15–24; TEMP 97.5–98.9; O2SAT 92–100
[2017-09-15 04:58] LABS: HEMATOCRIT 24.2 % (35.0-46.0); HEMOGLOBIN 8.1 GM/DL (11.6-15.3); MEAN CORPUSCULAR HGB CONC 33.4 % (32.0-36.0); MEAN PLATELET VOLUME 8.6 FL (7.0-11.0); PLATELET COUNT 237 TH/MM3 (150-450); RED BLOOD COUNT 2.87 MIL/MM3 (4.00-5.30); RED CELL DISTRIBUTION WIDTH 18.6 % (11.6-17.2); WHITE BLOOD COUNT 9.7 TH/MM3 (4.0-11.0)
[2017-09-15 05:50] LABS: BICARBONATE 30.4 MEQ/L (21.0-32.0); CALCIUM 7.8 MG/DL (8.5-10.1); CREATININE 6.95 MG/DL (0.50-1.00)
[2017-09-15] MEDS: LEVOTHYROXINE SODIUM 75 MCG TAB PO SCH (06:47)
[2017-09-15] MEDS: PIPERACIL-TAZO 2.25 GM PREMIX 50 ML IV SCH ×3 (06:47→21:14)
[2017-09-15] MEDS: DEXTROSE 50% IN WATER 50 ML VIAL(D50) IV PUSH PRN (07:00)
[2017-09-15] MEDS: INSULIN ASPART SUPPLEMENTAL SCALE SQ SCH ×4 (08:00→20:14)
[2017-09-15] MEDS: RESP: ALBUTEROL 2.5 MG/IPRATROPIUM 0.5 MG NEB (SCH) NEB ×3 (08:08→21:32)
[2017-09-15] MEDS: DOCUSATE SODIUM 50 MG/SENNA 8.6 MG TAB PO SCH ×2 (09:00→20:13)
[2017-09-15] MEDS: VITAMIN B CMPLX/VITC/FOLIC AC CAP PO SCH (09:00)
[2017-09-15] MEDS: SODIUM CHLORIDE 0.9% FLUSH 10 ML FLUSH IV FLUSH SCH ×2 (09:00→20:12)
[2017-09-15] MEDS: SEVELAMER CARBONATE 800 MG TAB PO SCH ×3 (09:18→17:27)
[2017-09-15] MEDS: DEXTROSE 10% INJ 500 ML IV SCH (09:19)
[2017-09-15] MEDS: PANTOPRAZOLE SODIUM 40 MG VIAL IV PUSH SCH ×2 (09:20→20:12)
[2017-09-15] MEDS: IRON SUCROSE INJ 100 MG in SODIUM CHLORIDE 0.9% INJ 100 ML IV SCH (09:20)
--- NOTE | 2017-09-15 09:26 | HHI.FPPN ---
Subjective Remarks Patient was a little aggravated this morning because she has not eaten anything and was beyond the timeframe for breakfast. However, she denied any new complaints. She did have at least 2 bloody bowel movements overnight but does not have any new symptoms of chest pain or shortness of breath. Objective Vitals Vital Signs Date Time Temp Pulse Resp B/P (MAP) Pulse Ox O2 Delivery O2 Flow Rate FiO2 09/15/17 08:06 100 Nasal Cannula 3.00 09/15/17 08:00 97.9 89 19 151/70 (97) 96 09/15/17 08:00 89 09/15/17 07:00 100 Nasal Cannula 2.00 09/15/17 06:00 81 09/15/17 04:00 83 09/15/17 04:00 98.9 83 15 133/55 (81) 100 09/15/17 02:00 86 09/15/17 00:00 80 09/15/17 00:00 98.6 80 15 133/63 (86) 100 09/14/17 22:00 82 09/14/17 20:37 99 Nasal Cannula 2.00 09/14/17 20:00 98.9 80 15 181/79 (113) 100 09/14/17 20:00 80 09/14/17 19:00 100 Room Air 09/14/17 18:00 89 09/14/17 16:00 98.9 87 19 147/63 (91) 94 09/14/17 16:00 88 09/14/17 15:51 98 Nasal Cannula 2.00 09/14/17 14:00 81 09/14/17 12:00 99.0 88 20 156/70 (98) 97 09/14/17 12:00 88 09/14/17 10:00 87 I/O 09/14/17 09/14/17 09/14/17 09/15/17 09/15/17 09/15/17 07:00 15:00 23:00 07:00 15:00 23:00 Intake Total 460 ml 640 ml Output Total 0 ml 800 ml Balance 460 ml 640 ml -800 ml Intake Oral 360 ml 640 ml IV Total 100 ml Output Urine Total 0 ml Stool Total 800 ml # Voids 0 2 # Bowel Movements 1 3 Result Diagram: 09/15/17 0349 09/15/17 0349 Objective Remarks GEN: Well-developed, well-nourished patient. No acute distress. CV: Regular rate and rhythm without obvious murmurs LUNGS: Coarse breath sounds with rhonchi bilaterally, prolonged expiratory phase GI: nondistended, soft, NTTP, no rebound. BS present. EXT: No edema, chronic venous stasis changes, present. No calf tenderness. Right foot wrapped in Sarath bandage. Clean and dry. NEURO/PSYCH: Awake, alert. Appropriate insight and judgment. Normal speech A/P Assessment and Plan 72 y/o with chronic history of HTN, DM, ESRD, chronic foot wounds presents from podiatry clinic for evaluation. Admitted for osteomyelitis with debridement and possible amputation. Developed a GI bleed during hospitalization. Repeat colonoscopy was performed on 09/13/2017 with no bleeding source identified. Per vascular surgery and GI, patient may need a hemicolectomy if she continues to bleed during this hospitalization. Discharge Planning Undetermined at this time, pending definitive treatment of osteomyelitis. Problem List: (1) GI bleed ICD Codes: K92.2 - Gastrointestinal hemorrhage, unspecified Status: Acute Plan: At least 2 bloody stools overnight Underwent a repeat colonoscopy on 09/13/2017. Results as follows: 1. Moderate diverticulosis was noted in the sigmoid colon 2. Blood throughout the colon but no active site of bleeding seen. suspect diverticular bleed 3. A sessile polyp ranging between 3-5mm in size was found in the sigmoid colon ; polypectomy was performed with cold forceps Hemoglobin 8.3 at 3 AM this morning compared to 9.1 yesterday 09/13 at 9AM. We will repeat at 1 PM Scope in July 2017 showed, 1 small polyp, diverticulosis, few small possible AVMs in the ascending colon. PLAN: GI and vascular surgery on board - appreciate recommendations Spoke with Dr. Reaves who is following her closely and will make decision on surgery if she continues to bleed and requires more blood transfusions H&H at 12 PM Continue IV Protonix 40 mg IV BID (2) Osteomyelitis of ankle or foot, right, acute ICD Codes: M86.171 - Other acute osteomyelitis, right ankle and foot Status: Acute Plan: Patient with history of chronic right foot wounds that was currently being managed by podiatry (Dr. Bentley). Was hospitalized in July 2017 and underwent surgical exploration and had a wound VAC placed at that time. Admitted per the recommendation of podiatry due to worsening ulcer/wounds. MRI significant for osteomyelitis and multiple bones of the foot and ankle. -Wound cultures showing Corynebacterium sp. -Blood cultures NGTD -Will consult ID for assistance with antibiotic selection and duration. Podiatry consulted: appreciate recommendations * 09/07/17: Debridement of ulcers on right foot/ankle 3 * Plan on 09/[address] Reaves - postponed secondary to acute gastrointestinal bleeding. Focus is on GI bleed for now per Dr. Reaves Vascular consulted: appreciate recommendations * Pt with severe vascular changes, diabetic neuropathy Imaging: * MRI foot: Osteomyelitis develop at the fifth metatarsal base. Slight worsening osteomyelitis of the great toe head of the proximal phalanx and distal half of the distal phalanx. Worsening osteomyelitis of the fibular sesamoid. The superficial osteomyelitis of the tibial sesamoid not significantly changed. No drainable abscess. * MRI ankle: Severe soft tissue ulceration laterally and posteromedially of the ankle/hindfoot. Fluid collection in the posterior lateral gutter, potentially an abscess. Osteomyelitis of the calcaneus. Osteomyelitis of the distal fibula possible osteomyelitis focally of the posterior medial aspect of the talus. * Foot x-ray: Osteopenia, no acute bony abnormality. Medications * Vancomycin (09/06- per nephrology dosing/titration * Zosyn (09/07- (3) ESRD (end stage renal disease) on dialysis ICD Codes: N18.6 - End stage renal failure on dialysis; Z99.2 - Dependence on renal dialysis Status: Chronic Plan: Dialysis Saturday, Saturday, Saturday typically. Sees Dr. Buchanan, director digital outpatient. No urine output Nephrology consulted: Appreciate recommendations * Resume dialysis 3x/wk * Monitor phosphorus intermittently, use binders as appropriate. * Fluid restriction (4) Diabetes mellitus ICD Codes: E11.9 - Type 2 diabetes mellitus without complications Status: Chronic Plan: History of long-term diabetes on insulin at home -Sliding scale insulin -Monitor accuchecks (5) Hypertension ICD Codes: I10 - Hypertension Status: Chronic Plan: BP elevated on admission the patient did miss dialysis on day of admission. Expect BP to improve as she resumes routine medications and dialysis. -Continue home amlodipine (6) Hypothyroidism ICD Codes: E03.9 - Hypothyroidism Status: Chronic Plan: Continue home Synthroid (7) FEN Status: Acute Plan: Fluids: None, on dialysis. Electrolytes: monitor, replace PRN Nutrition: As guided by GI DVT ppx: hold chemoppx due to surgery, SCDs Will discuss with Dr. Wiseman Problem Qualifiers (1) GI bleed: Qualified Codes: K57.91 - Diverticulosis of intestine, part unspecified, without perforation or abscess with bleeding (2) Diabetes mellitus: Qualified Codes: E11.42 - Type 2 diabetes mellitus with diabetic polyneuropathy ; Z79.4 - detention (current) use of insulin (3) Hypertension: Qualified Codes: I10 - Essential (primary) hypertension (4) Hypothyroidism: Qualified Codes: E03.9 - Hypothyroidism, unspecified Lida Vaughan MD R2 Sep 15, 2017 09:26
--- NOTE | 2017-09-15 13:23 | PD.CAR.PN ---
CVT Progress Note Subjective/Hospital Course: Consult received Full dictation to follow For podiatry debridement Saturday and after that we will evaluate as far as salvageability of the leg is concerned Thanks Jean Paul 09/09/17 Patient with severe peripheral vascular disease gangrene of the right heel and osteomyelitis Every effort has been made by podiatry to salvage the foot and there are no other options left I agree with Dr. Galvez and Dr. Nadir Mello, and the only option at this time is right below-knee amputation Patient scheduled for right below-knee amputation with second and third opinion of additional 2 physicians Today's BKA has to be canceled due to the fact that patient's hemoglobin is 6.7 and due to logistical reasons transfusion of 2 units PRBC was not not administered prior to taking patient to the operating room this afternoon. Considering this is purely elective procedure I believe it's safe and appropriate to transfuse this patient in peace and do surgery tomorrow Patient scheduled for right BKA tomorrow 09/10/17 Patient was initially rescheduled for surgery today however she had some bright red blood per rectum and surgery is now canceled GI bleeding takes precedence and patient will need a full workup on this issue before proceed with amputation If patient needs some gastrointestinal surgery or general surgical intervention I will be available and we'll continue to follow patient Once everything resolved we will reconsider the amputation issue 09/11/17 Hemoglobin again down to 6.9 g/dL as a result of GI bleeding Completely agree with medicine and gastroenterology approach and plan No clear site of bleeding and identified and this is often a problem in patients who have multiple pathologies, all of which could be attributing to the bleeding process including diverticular disease AVM malformations and such Most of these bleeds will see his on the round and only about 10-15% of patients will require actual surgery for the same. Precise identification of the bleeding site being the right or the left colon is imperative should patient require surgery for continuous bleeding, for knowing in their and having to do subtotal colectomy on this lady would double the mortality as opposed only removing the right or the left colon. Sometimes however we cannot identify the bleeding site and then subtotal colectomy remains the only option. Will continue follow patient which you and if patient require surgery I will be available to preform it. As far as the leg is concerned, amputation is now a secondary issue and will not be undertaken until the above issues are resolved and treated satisfactorily. 09/12/17 Patient currently stabilized from GI bleeding Hemoglobin is now stable Angiogram is negative for bleeding but that the requires at least the bleeding of 3 cc/minute to show up On the other hand no clear scan does reveal bleeding which in this case looks like transverse colon Majority of these bleeds will stop on the round with good supportive therapy and patient doesn't need further interventions On the other hand if the patient gets up to 6-8 units of blood transfusions than the risk of surgery is by far exceeded by the risk of repeated transfusions and then surgery is indicated We'll see how patient does and recommend as we go along Discussed with Dr Mi 09/13/17 Patient with diverticulosis and the likely transverse to left colon bleed Agree with Dr. Mi as to the site of bleeding Abdomen is soft active bowel sounds the patient appears to be stable She dropped her hemoglobin bit yesterday he received 1 more units of blood and now it's up again Patient is now 5 units PRBC later and the another unit or 2 and then we'll have to take patient to the operating room for extended left colectomy if this doesn't stop because then the risk of bleeding and problems with transfusion exceeds the risk of surgery We'll see the patient does through the weekend but she is close to needing surgery at this time 09/14/17 Patient doing okay now Abdomen is soft active bowel sounds Hemoglobin appears to be relatively stable between 9 and 8 g/dL and holding. As noted above patient has received 5 units of PRBCs up to now and once we get to point of 67 or 8 units and patient continues to lose blood, then the risk of surgery is less than the risk of repeated transfusions and at that point patient would need left colectomy. Discussed with Dr. Mi and we agree on being very conservative in this situation and doing everything to avoid surgery in this lady. Will continue to follow 09/15/17 Patient had some bleeding last night and hemoglobin was repeated to come back at 10 g/dL This was clearly old blood yet this morning hemoglobin is 8.1 g/dL some believe that former number was probably incorrect last night Patient doesn't appear to have active bleeding If she requires more blood and starts bleeding again should definitely go to the operating room from extended left colectomy At this point would advance to the diet and allow patient to eat and see how she does There is a high likelihood that patient will require left colon resection which of course is a procedure associated with some degree morbidity in this elderly lady. Objective: Vital Signs Date Time Temp Pulse Resp B/P (MAP) Pulse Ox O2 Delivery O2 Flow Rate FiO2 09/15/17 10:00 90 09/15/17 08:06 100 Nasal Cannula 3.00 09/15/17 08:00 97.9 89 19 151/70 (97) 96 09/15/17 08:00 89 09/15/17 07:00 100 Nasal Cannula 2.00 09/15/17 06:00 81 09/15/17 04:00 83 09/15/17 04:00 98.9 83 15 133/55 (81) 100 09/15/17 02:00 86 09/15/17 00:00 80 09/15/17 00:00 98.6 80 15 133/63 (86) 100 09/14/17 22:00 82 09/14/17 20:37 99 Nasal Cannula 2.00 09/14/17 20:00 98.9 80 15 181/79 (113) 100 09/14/17 20:00 80 09/14/17 19:00 100 Room Air 09/14/17 18:00 89 09/14/17 16:00 98.9 87 19 147/63 (91) 94 09/14/17 16:00 88 09/14/17 15:51 98 Nasal Cannula 2.00 09/14/17 14:00 81 Labs: Laboratory Tests Test 09/15/17 03:49 White Blood Count 9.7 TH/MM3 (4.0-11.0) Red Blood Count 2.87 MIL/MM3 (4.00-5.30) Hemoglobin 8.1 GM/DL (11.6-15.3) Hematocrit 24.2 % (35.0-46.0) Mean Corpuscular Volume 84.0 FL (80.0-100.0) Mean Corpuscular Hemoglobin 28.0 PG (27.0-34.0) Mean Corpuscular Hemoglobin Concent 33.4 % (32.0-36.0) Red Cell Distribution Width 18.6 % (11.6-17.2) Platelet Count 237 TH/MM3 (150-450) Mean Platelet Volume 8.6 FL (7.0-11.0) Blood Urea Nitrogen 29 MG/DL (7-18) Creatinine 6.95 MG/DL (0.50-1.00) Random Glucose 67 MG/DL (74-106) Calcium Level 7.8 MG/DL (8.5-10.1) Sodium Level 140 MEQ/L (136-145) Potassium Level 4.8 MEQ/L (3.5-5.1) Chloride Level 101 MEQ/L (98-107) Carbon Dioxide Level 30.4 MEQ/L (21.0-32.0) Anion Gap 9 MEQ/L (5-15) Estimat Glomerular Filtration Rate 7 ML/MIN (>89) Result Diagram: 09/15/17 0349 09/15/17 0349 Amalia De La Cruz MD Sep 15, 2017 13:23
--- NOTE | 2017-09-15 14:42 | HHI.NPPN ---
Subjective General Problems: Anemia Renal Failure: Chronic, End Stage Renal Disease Review of Systems General Constitutional: Fatigue Gastrointestinal Gastrointestinal: Blood/Tarry Stools Musculoskeletal MS: Pain/Stiffness Skin Skin: Ulcers Psych Psych: Depression Objective Data Data Vital Signs Date Time Temp Pulse Resp B/P (MAP) Pulse Ox O2 Delivery O2 Flow Rate FiO2 09/15/17 10:00 90 09/15/17 08:06 100 Nasal Cannula 3.00 09/15/17 08:00 97.9 89 19 151/70 (97) 96 09/15/17 08:00 89 09/15/17 07:00 100 Nasal Cannula 2.00 09/15/17 06:00 81 09/15/17 04:00 83 09/15/17 04:00 98.9 83 15 133/55 (81) 100 09/15/17 02:00 86 09/15/17 00:00 80 09/15/17 00:00 98.6 80 15 133/63 (86) 100 09/14/17 22:00 82 09/14/17 20:37 99 Nasal Cannula 2.00 09/14/17 20:00 98.9 80 15 181/79 (113) 100 09/14/17 20:00 80 09/14/17 19:00 100 Room Air 09/14/17 18:00 89 09/14/17 16:00 98.9 87 19 147/63 (91) 94 09/14/17 16:00 88 09/14/17 15:51 98 Nasal Cannula 2.00 -: 09/15/17 0349 09/15/17 0349 Physical Exam General Appearance: Well Developed, No Acute Distress, Comfortable, Malnourished Eyes Eye Exam: Pupils Equal Throat Throat Exam: Oral Mucosa [place] & Moist Neck Neck Exam: Neck Supple Pulmonary Resp Exam: Clear Bilaterally, Breath Sounds Equal Cardiology CV Exam: Regular, Normal Sinus Rhythm, Good Perfusion Gastrointestinal/Abdomen GI Exam: Soft, Non-Tender, Bowel Sounds Present, Positive Bowel Movement Genitourinary Exam: Clear Urine Musculoskeletal MS Exam: Joints Intact, Normal Tone, Good Strength Integumentary Skin Exam: Warm, Dry Extremeties Extremities Exam: No Edema Neurologic Neuro Exam: Alert, Awake, Oriented, Speech Clear, Moving All Extremities Psychiatric Psych Exam: Appropriate Responses Assessment/Plan Discussed Condition With: Patient Assessment Summary: Anemia of CKD, Hypertension, End Stage Renal Disease Problem List: (1) ESRD (end stage renal disease) on dialysis ICD Codes: N18.6 - End stage renal failure on dialysis; Z99.2 - Dependence on renal dialysis Status: Chronic Plan: Continue HD MWF , done Saturday 3 L UF Intermittently monitor renal profile. Fluid restriction to 1500 ml/day. Avoid IVF. Protect left arm from procedures. Dr. Greene Hb slight lower GI bleed possible Left Hemicolectomy once stronger (2) GI bleed ICD Codes: K92.2 - Gastrointestinal hemorrhage, unspecified Status: Acute Plan: GI following, s/p EGD/colonoscopy x 2 s/p bleeding scan and angiogram Results reviewed On Protonix, transfuse if needed (3) Anemia ICD Codes: D64.9 - Anemia, unspecified Status: Acute Plan: 5th unit transfused since admission On Epogen with dialysis. She has iron deficiency, on venofer. New GI bleed per above (4) Foot ulcer, right ICD Codes: L97.519 - Non-pressure chronic ulcer of other part of right foot with unspecified severity Status: Acute Plan: s/p debridement. BKA postponed until GIB has been corrected. Vascular surgery following. On Zosyn, given vancomycin. (5) Metabolic bone disease ICD Codes: E88.9 - Metabolic disorder, unspecified; M90.80 - Osteopathy in diseases classified elsewhere, unspecified site Status: Acute Plan: monitor phosphorus intermittently. She is on phosphate binder therapy. (6) Hypertension ICD Codes: I10 - Hypertension Status: Chronic Plan: monitor BP, continue medications. (7) Diabetes mellitus ICD Codes: E11.9 - Type 2 diabetes mellitus without complications Status: Chronic Plan: Continue insulin coverage while hospitalized, maintain blood glucose between 140 and 180. Use D10 @ 20 while NPO. Problem Qualifiers (1) GI bleed: Qualified Codes: K57.91 - Diverticulosis of intestine, part unspecified, without perforation or abscess with bleeding (2) Foot ulcer, right: Qualified Codes: L97.512 - Non-pressure chronic ulcer of other part of right foot with fat layer exposed (3) Hypertension: Qualified Codes: I10 - Essential (primary) hypertension (4) Diabetes mellitus: Qualified Codes: E11.42 - Type 2 diabetes mellitus with diabetic polyneuropathy ; Z79.4 - keno terminal operator (current) use of insulin Kandi Castanon MD Sep 15, 2017 14:42
[2017-09-15 16:52] LABS: HEMATOCRIT 23.3 % (35.0-46.0); HEMOGLOBIN 7.7 GM/DL (11.6-15.3)
[2017-09-15] MEDS: cloNIDine HCL 0.1 MG TAB PO PRN (19:48)
[2017-09-15] MEDS: hydrOXYzine HCL 25 MG TAB PO SCH (20:11)
[2017-09-15] MEDS: MIRTAZAPINE 15 MG TAB PO SCH (20:13)
[2017-09-15] MEDS: ZOLPIDEM TARTRATE 5 MG TAB PO PRN (21:13)
[2017-09-15 23:27] LABS: HEMATOCRIT 22.4 % (35.0-46.0); HEMOGLOBIN 7.5 GM/DL (11.6-15.3)
[2017-09-16] VITALS (14 sets, daily range): BP systolic 150–170; BP diastolic 68–81; PULSE 81–96; RESP 18–23; TEMP 97.8–98.4; O2SAT 92–99
[2017-09-16 04:46] LABS: HEMATOCRIT 22.2 % (35.0-46.0); HEMOGLOBIN 7.5 GM/DL (11.6-15.3)
[2017-09-16] MEDS: LEVOTHYROXINE SODIUM 75 MCG TAB PO SCH (05:59)
[2017-09-16] MEDS: PIPERACIL-TAZO 2.25 GM PREMIX 50 ML IV SCH ×3 (06:00→21:55)
[2017-09-16] MEDS: RESP: ALBUTEROL 2.5 MG/IPRATROPIUM 0.5 MG NEB (SCH) NEB ×3 (07:26→20:00)
[2017-09-16] MEDS: INSULIN ASPART SUPPLEMENTAL SCALE SQ SCH ×4 (08:00→21:00)
[2017-09-16 08:37] LABS: HEMATOCRIT 24.4 % (35.0-46.0); MEAN CELL VOLUME 84.4 FL (80.0-100.0); MEAN CORPUSCULAR HEMOGLOBIN 27.7 PG (27.0-34.0); MEAN CORPUSCULAR HGB CONC 32.8 % (32.0-36.0); MEAN PLATELET VOLUME 8.2 FL (7.0-11.0); PLATELET COUNT 242 TH/MM3 (150-450); RED CELL DISTRIBUTION WIDTH 18.3 % (11.6-17.2); WHITE BLOOD COUNT 10.2 TH/MM3 (4.0-11.0)
[2017-09-16] MEDS: VITAMIN B CMPLX/VITC/FOLIC AC CAP PO SCH (09:00)
[2017-09-16] MEDS: DOCUSATE SODIUM 50 MG/SENNA 8.6 MG TAB PO SCH ×2 (09:00→21:55)
[2017-09-16] MEDS: SEVELAMER CARBONATE 800 MG TAB PO SCH ×3 (09:02→18:03)
[2017-09-16] MEDS: PANTOPRAZOLE SODIUM 40 MG VIAL IV PUSH SCH ×2 (09:03→21:55)
[2017-09-16] MEDS: SODIUM CHLORIDE 0.9% FLUSH 10 ML FLUSH IV FLUSH SCH ×2 (09:03→21:55)
[2017-09-16] MEDS: IRON SUCROSE INJ 100 MG in SODIUM CHLORIDE 0.9% INJ 100 ML IV SCH (09:03)
[2017-09-16] MEDS: DEXTROSE 10% INJ 500 ML IV SCH (09:05)
[2017-09-16 09:09] LABS: BICARBONATE 28.4 MEQ/L (21.0-32.0); CALCIUM 8.2 MG/DL (8.5-10.1); CREATININE 8.2 MG/DL (0.50-1.00); MAGNESIUM 2.5 MG/DL (1.5-2.5); PHOSPHORUS 6.1 MG/DL (2.5-4.9)
--- NOTE | 2017-09-16 10:31 | PD.CAR.PN ---
CVT Progress Note Subjective/Hospital Course: Consult received Full dictation to follow For podiatry debridement Saturday and after that we will evaluate as far as salvageability of the leg is concerned Thanks Jean Paul 09/09/17 Patient with severe peripheral vascular disease gangrene of the right heel and osteomyelitis Every effort has been made by podiatry to salvage the foot and there are no other options left I agree with Dr. Galvez and Dr. Nadir Mello, and the only option at this time is right below-knee amputation Patient scheduled for right below-knee amputation with second and third opinion of additional 2 physicians Today's BKA has to be canceled due to the fact that patient's hemoglobin is 6.7 and due to logistical reasons transfusion of 2 units PRBC was not not administered prior to taking patient to the operating room this afternoon. Considering this is purely elective procedure I believe it's safe and appropriate to transfuse this patient in peace and do surgery tomorrow Patient scheduled for right BKA tomorrow 09/10/17 Patient was initially rescheduled for surgery today however she had some bright red blood per rectum and surgery is now canceled GI bleeding takes precedence and patient will need a full workup on this issue before proceed with amputation If patient needs some gastrointestinal surgery or general surgical intervention I will be available and we'll continue to follow patient Once everything resolved we will reconsider the amputation issue 09/11/17 Hemoglobin again down to 6.9 g/dL as a result of GI bleeding Completely agree with medicine and gastroenterology approach and plan No clear site of bleeding and identified and this is often a problem in patients who have multiple pathologies, all of which could be attributing to the bleeding process including diverticular disease AVM malformations and such Most of these bleeds will see his on the round and only about 10-15% of patients will require actual surgery for the same. Precise identification of the bleeding site being the right or the left colon is imperative should patient require surgery for continuous bleeding, for knowing in their and having to do subtotal colectomy on this lady would double the mortality as opposed only removing the right or the left colon. Sometimes however we cannot identify the bleeding site and then subtotal colectomy remains the only option. Will continue follow patient which you and if patient require surgery I will be available to preform it. As far as the leg is concerned, amputation is now a secondary issue and will not be undertaken until the above issues are resolved and treated satisfactorily. 09/12/17 Patient currently stabilized from GI bleeding Hemoglobin is now stable Angiogram is negative for bleeding but that the requires at least the bleeding of 3 cc/minute to show up On the other hand no clear scan does reveal bleeding which in this case looks like transverse colon Majority of these bleeds will stop on the round with good supportive therapy and patient doesn't need further interventions On the other hand if the patient gets up to 6-8 units of blood transfusions than the risk of surgery is by far exceeded by the risk of repeated transfusions and then surgery is indicated We'll see how patient does and recommend as we go along Discussed with Dr Mi 09/13/17 Patient with diverticulosis and the likely transverse to left colon bleed Agree with Dr. Mi as to the site of bleeding Abdomen is soft active bowel sounds the patient appears to be stable She dropped her hemoglobin bit yesterday he received 1 more units of blood and now it's up again Patient is now 5 units PRBC later and the another unit or 2 and then we'll have to take patient to the operating room for extended left colectomy if this doesn't stop because then the risk of bleeding and problems with transfusion exceeds the risk of surgery We'll see the patient does through the weekend but she is close to needing surgery at this time 09/14/17 Patient doing okay now Abdomen is soft active bowel sounds Hemoglobin appears to be relatively stable between 9 and 8 g/dL and holding. As noted above patient has received 5 units of PRBCs up to now and once we get to point of 67 or 8 units and patient continues to lose blood, then the risk of surgery is less than the risk of repeated transfusions and at that point patient would need left colectomy. Discussed with Dr. Mi and we agree on being very conservative in this situation and doing everything to avoid surgery in this lady. Will continue to follow 09/15/17 Patient had some bleeding last night and hemoglobin was repeated to come back at 10 g/dL This was clearly old blood yet this morning hemoglobin is 8.1 g/dL some believe that former number was probably incorrect last night Patient doesn't appear to have active bleeding If she requires more blood and starts bleeding again should definitely go to the operating room from extended left colectomy At this point would advance to the diet and allow patient to eat and see how she does There is a high likelihood that patient will require left colon resection which of course is a procedure associated with some degree morbidity in this elderly lady. 09/16/17 Patient doing well at this time Abdomen soft active bowel sounds tolerates diet No more fresh or maroon blood per rectum Hemoglobin remains relatively stable between 7.5 and 8 g/dL Continue observation if patient drops hemoglobin 1 more time and starts bleeding she'll be going to the operating room for extended left colectomy Objective: Vital Signs Date Time Temp Pulse Resp B/P (MAP) Pulse Ox O2 Delivery O2 Flow Rate FiO2 09/16/17 07:23 92 Nasal Cannula 2.00 09/16/17 07:00 93 Nasal Cannula 2.00 09/16/17 06:00 81 09/16/17 04:00 86 09/16/17 04:00 98.3 86 20 154/73 (100) 94 09/16/17 02:00 88 09/16/17 00:00 92 09/16/17 00:00 98.4 92 19 150/68 (95) 93 09/15/17 22:00 97 09/15/17 21:32 97 Nasal Cannula 2.00 09/15/17 21:00 92 Nasal Cannula 09/15/17 20:00 94 09/15/17 20:00 98.5 94 22 179/79 (112) 92 09/15/17 19:00 97 Room Air 09/15/17 18:00 95 09/15/17 16:00 87 09/15/17 16:00 97.5 87 16 143/65 (91) 96 09/15/17 14:00 84 09/15/17 12:00 89 09/15/17 12:00 98.0 92 24 168/75 (106) 100 Labs: Laboratory Tests Test 09/15/17 23:15 09/16/17 04:05 09/16/17 08:23 Hemoglobin 7.5 GM/DL (11.6-15.3) 7.5 GM/DL (11.6-15.3) 8.0 GM/DL (11.6-15.3) Hematocrit 22.4 % (35.0-46.0) 22.2 % (35.0-46.0) 24.4 % (35.0-46.0) White Blood Count 10.2 TH/MM3 (4.0-11.0) Red Blood Count 2.90 MIL/MM3 (4.00-5.30) Mean Corpuscular Volume 84.4 FL (80.0-100.0) Mean Corpuscular Hemoglobin 27.7 PG (27.0-34.0) Mean Corpuscular Hemoglobin Concent 32.8 % (32.0-36.0) Red Cell Distribution Width 18.3 % (11.6-17.2) Platelet Count 242 TH/MM3 (150-450) Mean Platelet Volume 8.2 FL (7.0-11.0) Blood Urea Nitrogen 41 MG/DL (7-18) Creatinine 8.20 MG/DL (0.50-1.00) Random Glucose 87 MG/DL (74-106) Calcium Level 8.2 MG/DL (8.5-10.1) Phosphorus Level 6.1 MG/DL (2.5-4.9) Magnesium Level 2.5 MG/DL (1.5-2.5) Sodium Level 138 MEQ/L (136-145) Potassium Level 5.5 MEQ/L (3.5-5.1) Chloride Level 99 MEQ/L (98-107) Carbon Dioxide Level 28.4 MEQ/L (21.0-32.0) Anion Gap 11 MEQ/L (5-15) Estimat Glomerular Filtration Rate 6 ML/MIN (>89) Result Diagram: 09/16/17 0823 09/16/17 0823 Amalia De La Cruz MD Sep 16, 2017 10:31
--- NOTE | 2017-09-16 10:35 | HHI.NPPN ---
Subjective General Problems: Anemia Renal Failure: Chronic, End Stage Renal Disease Interval History She had a maroon colored BM today. Hemoglobin is stable. Diet was advanced. Due for dialysis. (Teresa Parekh) Review of Systems General Constitutional: Fatigue (Teresa Parekh) Gastrointestinal Gastrointestinal: Blood/Tarry Stools (Teresa Parekh) Musculoskeletal MS: Pain/Stiffness (Teresa Parekh) Skin Skin: Ulcers (Teresa Parekh) Psych Psych: Depression (Teresa Parekh) Objective Data Data Vital Signs Date Time Temp Pulse Resp B/P (MAP) Pulse Ox O2 Delivery O2 Flow Rate FiO2 09/16/17 07:23 92 Nasal Cannula 2.00 09/16/17 07:00 93 Nasal Cannula 2.00 09/16/17 06:00 81 09/16/17 04:00 86 09/16/17 04:00 98.3 86 20 154/73 (100) 94 09/16/17 02:00 88 09/16/17 00:00 92 09/16/17 00:00 98.4 92 19 150/68 (95) 93 09/15/17 22:00 97 09/15/17 21:32 97 Nasal Cannula 2.00 09/15/17 21:00 92 Nasal Cannula 09/15/17 20:00 94 09/15/17 20:00 98.5 94 22 179/79 (112) 92 09/15/17 19:00 97 Room Air 09/15/17 18:00 95 09/15/17 16:00 87 09/15/17 16:00 97.5 87 16 143/65 (91) 96 09/15/17 14:00 84 09/15/17 12:00 89 09/15/17 12:00 98.0 92 24 168/75 (106) 100 (Teresa Parekh) -: 09/16/17 0823 09/16/17 0823 Physical Exam General Appearance: Well Developed, No Acute Distress, Comfortable, Malnourished (Teresa Parekh) Eyes Eye Exam: Pupils Equal (Teresa Parekh) Throat Throat Exam: Oral Mucosa [place] & Moist (Teresa ParekhP) Neck Neck Exam: Neck Supple (Teresa Parekh MAIL COURIER) Pulmonary Resp Exam: Clear Bilaterally, Breath Sounds Equal (Teresa ParekhP) Cardiology CV Exam: Regular, Normal Sinus Rhythm, Good Perfusion (Teresa Parekh MAIL COURIER) Gastrointestinal/Abdomen GI Exam: Soft, Non-Tender, Bowel Sounds Present, Positive Bowel Movement (Teresa ParekhP) Genitourinary Exam: Clear Urine (Teresa Parekh MAIL COURIER) Musculoskeletal MS Exam: Joints Intact, Normal Tone, Good Strength (Teresa Parekh MAIL COURIER) Integumentary Skin Exam: Warm, Dry Skin Remarks right foot ulcer, dressing in place. (Teresa ParekhP) Extremeties Extremities Exam: No Edema Extremeties Remarks Left arm AVF + bruit/thrill (Teresa ParekhP) Neurologic Neuro Exam: Alert, Awake, Oriented, Speech Clear, Moving All Extremities (Teresa ParekhP) Psychiatric Psych Exam: Appropriate Responses (Teresa Parekh) Assessment/Plan Discussed Condition With: Patient Assessment Summary: Anemia of CKD, Hypertension, End Stage Renal Disease Problem List: (1) ESRD (end stage renal disease) on dialysis ICD Codes: N18.6 - End stage renal failure on dialysis; Z99.2 - Dependence on renal dialysis Status: Chronic Plan: Continue HD MWF , due today Intermittently monitor renal profile. No changes to plan at this time. Fluid restriction to 1500 ml/day. Avoid IVF. Protect left arm from procedures. (2) GI bleed ICD Codes: K92.2 - Gastrointestinal hemorrhage, unspecified Status: Acute Plan: GI following, s/p EGD/colonoscopy x 2 s/p bleeding scan and angiogram May need L partial colectomy, monitor for continued bleeding Thought to be diverticular in origin (3) Anemia ICD Codes: D64.9 - Anemia, unspecified Status: Acute Plan: 5th unit transfused since admission On Epogen with dialysis. Also on venofer. New GI bleed per above (4) Foot ulcer, right ICD Codes: L97.519 - Non-pressure chronic ulcer of other part of right foot with unspecified severity Status: Acute Plan: s/p debridement. BKA postponed until GIB has been corrected. Vascular surgery following. On Zosyn and vancomycin. (5) Metabolic bone disease ICD Codes: E88.9 - Metabolic disorder, unspecified; M90.80 - Osteopathy in diseases classified elsewhere, unspecified site Status: Acute Plan: monitor phosphorus intermittently. She is on phosphate binder therapy. (6) Hypertension ICD Codes: I10 - Hypertension Status: Chronic Plan: monitor BP, continue medications. (7) Diabetes mellitus ICD Codes: E11.9 - Type 2 diabetes mellitus without complications Status: Chronic Plan: Continue insulin coverage while hospitalized, maintain blood glucose between 140 and 180. Use D10 @ 20 while NPO. (Teresa Parekh) Plan patient was seen and examined. Agree with above assessment and plan. Patient reports she is feeling well. (Dao Greene MD) Problem Qualifiers (1) GI bleed: Qualified Codes: K57.91 - Diverticulosis of intestine, part unspecified, without perforation or abscess with bleeding (2) Foot ulcer, right: Qualified Codes: L97.512 - Non-pressure chronic ulcer of other part of right foot with fat layer exposed (3) Hypertension: Qualified Codes: I10 - Essential (primary) hypertension (4) Diabetes mellitus: Qualified Codes: E11.42 - Type 2 diabetes mellitus with diabetic polyneuropathy ; Z79.4 - care home (current) use of insulin Teresa Parekh Sep 16, 2017 10:35 Dao Greene MD Sep 16, 2017 12:36
[2017-09-16] MEDS: cloNIDine HCL 0.1 MG TAB PO PRN (10:36)
--- NOTE | 2017-09-16 11:52 | HHI.FPPN ---
Subjective Remarks AFVSS, no acute events overnight. Patient reports feeling "good." RN reported one large BM that was maroon colored. H&H stable x 24 hours. No abdominal pain, nausea, vomiting, chest pain, or confusion. Objective Vitals Vital Signs Date Time Temp Pulse Resp B/P (MAP) Pulse Ox O2 Delivery O2 Flow Rate FiO2 09/16/17 07:23 92 Nasal Cannula 2.00 09/16/17 07:00 93 Nasal Cannula 2.00 09/16/17 06:00 81 09/16/17 04:00 86 09/16/17 04:00 98.3 86 20 154/73 (100) 94 09/16/17 02:00 88 09/16/17 00:00 92 09/16/17 00:00 98.4 92 19 150/68 (95) 93 09/15/17 22:00 97 09/15/17 21:32 97 Nasal Cannula 2.00 09/15/17 21:00 92 Nasal Cannula 09/15/17 20:00 94 09/15/17 20:00 98.5 94 22 179/79 (112) 92 09/15/17 19:00 97 Room Air 09/15/17 18:00 95 09/15/17 16:00 87 09/15/17 16:00 97.5 87 16 143/65 (91) 96 09/15/17 14:00 84 09/15/17 12:00 89 09/15/17 12:00 98.0 92 24 168/75 (106) 100 I/O 09/15/17 09/15/17 09/15/17 09/16/17 09/16/17 09/16/17 07:00 15:00 23:00 07:00 15:00 23:00 Intake Total 400 ml 770 ml Output Total 800 ml 0 ml 0 ml Balance -800 ml 400 ml 770 ml Intake Oral 80 ml 720 ml IV Total 320 ml 50 ml Output Urine Total 0 ml 0 ml Stool Total 800 ml # Voids 2 # Bowel Movements 0 0 Result Diagram: 09/16/1782209/16/17822 Objective Remarks GEN: Well-developed, well-nourished patient. No acute distress. CV: Regular rate and rhythm without obvious murmurs LUNGS: Coarse breath sounds with rhonchi bilaterally, prolonged expiratory phase GI: nondistended, soft, NTTP, no rebound. BS present. EXT: No edema, chronic venous stasis changes, present. No calf tenderness. Right foot wrapped in Sarath bandage. Clean and dry. NEURO/PSYCH: Awake, alert. Appropriate insight and judgment. Normal speech A/P Assessment and Plan 72 y/o with chronic history of HTN, DM, ESRD, chronic foot wounds presents from podiatry clinic for evaluation. Admitted for osteomyelitis with debridement and possible amputation. Developed a GI bleed during hospitalization. Repeat colonoscopy was performed on 09/13/2017 with no bleeding source identified. Per vascular surgery and GI, patient may need a hemicolectomy if she continues to bleed during this hospitalization. Discharge Planning Undetermined at this time, pending definitive treatment of osteomyelitis. Problem List: (1) GI bleed ICD Codes: K92.2 - Gastrointestinal hemorrhage, unspecified Status: Acute Plan: Another large maroon colored BM this AM. Underwent a repeat colonoscopy on 09/13/2017. Results as follows: 1. Moderate diverticulosis was noted in the sigmoid colon 2. Blood throughout the colon but no active site of bleeding seen. suspect diverticular bleed 3. A sessile polyp ranging between 3-5mm in size was found in the sigmoid colon ; polypectomy was performed with cold forceps Hemoglobin 8.3 at 3 AM this morning compared to 9.1 yesterday 09/13 at 9AM. We will repeat at 1 PM Scope in July 2017 showed, 1 small polyp, diverticulosis, few small possible AVMs in the ascending colon. PLAN: GI and vascular surgery on board - appreciate recommendations Spoke with Dr. Reaves who is following her closely and will make decision on surgery if she continues to bleed and requires more blood transfusions H&H at 4 PM, 10 PM, and 4 AM. Continue IV Protonix 40 mg IV BID (2) Osteomyelitis of ankle or foot, right, acute ICD Codes: M86.171 - Other acute osteomyelitis, right ankle and foot Status: Acute Plan: Patient with history of chronic right foot wounds that was currently being managed by podiatry (Dr. Bentley). Was hospitalized in July 2017 and underwent surgical exploration and had a wound VAC placed at that time. Admitted per the recommendation of podiatry due to worsening ulcer/wounds. MRI significant for osteomyelitis and multiple bones of the foot and ankle. -Wound cultures showing Corynebacterium sp. -Blood cultures NGTD -Will consult ID for assistance with antibiotic selection and duration. Podiatry consulted: appreciate recommendations * 09/07/17: Debridement of ulcers on right foot/ankle 3 * Plan on 09/[address] Reaves - postponed secondary to acute gastrointestinal bleeding. Focus is on GI bleed for now per Dr. Reaves Vascular consulted: appreciate recommendations * Pt with severe vascular changes, diabetic neuropathy Imaging: * MRI foot: Osteomyelitis develop at the fifth metatarsal base. Slight worsening osteomyelitis of the great toe head of the proximal phalanx and distal half of the distal phalanx. Worsening osteomyelitis of the fibular sesamoid. The superficial osteomyelitis of the tibial sesamoid not significantly changed. No drainable abscess. * MRI ankle: Severe soft tissue ulceration laterally and posteromedially of the ankle/hindfoot. Fluid collection in the posterior lateral gutter, potentially an abscess. Osteomyelitis of the calcaneus. Osteomyelitis of the distal fibula possible osteomyelitis focally of the posterior medial aspect of the talus. * Foot x-ray: Osteopenia, no acute bony abnormality. Medications * Vancomycin (09/06- per nephrology dosing/titration * Zosyn (09/07- (3) ESRD (end stage renal disease) on dialysis ICD Codes: N18.6 - End stage renal failure on dialysis; Z99.2 - Dependence on renal dialysis Status: Chronic Plan: Dialysis Saturday, Saturday, Saturday typically. Sees Dr. Buchanan, tool maintenance worker outpatient. No urine output Nephrology consulted: Appreciate recommendations * Resume dialysis 3x/wk * Monitor phosphorus intermittently, use binders as appropriate. * Fluid restriction (4) Diabetes mellitus ICD Codes: E11.9 - Type 2 diabetes mellitus without complications Status: Chronic Plan: History of long-term diabetes on insulin at home -Sliding scale insulin -Monitor accuchecks (5) Hypertension ICD Codes: I10 - Hypertension Status: Chronic Plan: BP elevated on admission the patient did miss dialysis on day of admission. Expect BP to improve as she resumes routine medications and dialysis. -Continue home amlodipine (6) Hypothyroidism ICD Codes: E03.9 - Hypothyroidism Status: Chronic Plan: Continue home Synthroid (7) FEN Status: Acute Plan: Fluids: None, on dialysis. Electrolytes: monitor, replace PRN Nutrition: As guided by GI DVT ppx: hold chemoppx due to surgery, SCDs SDW Dr. 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
[2017-09-16] MEDS: GELATIN 12 MM/7 MM FOAM TOP PRN (16:26)
[2017-09-16] MEDS: EPOETIN ALFA 10,000 UNITS/ML VIAL IV PUSH PRN (16:26)
[2017-09-16 18:42] LABS: HEMATOCRIT 24.3 % (35.0-46.0)
[2017-09-16] MEDS: hydrOXYzine HCL 25 MG TAB PO SCH (21:55)
[2017-09-16] MEDS: MIRTAZAPINE 15 MG TAB PO SCH (21:55)
[2017-09-16] MEDS: ZOLPIDEM TARTRATE 5 MG TAB PO PRN (21:59)
[2017-09-16 23:13] LABS: HEMATOCRIT 21.2 % (35.0-46.0); HEMOGLOBIN 7.2 GM/DL (11.6-15.3)
[2017-09-17] VITALS (13 sets, daily range): BP systolic 126–150; BP diastolic 60–71; PULSE 79–96; RESP 15–24; TEMP 97.7–98.4; O2SAT 95–100
[2017-09-17] MEDS: PIPERACIL-TAZO 2.25 GM PREMIX 50 ML IV SCH ×3 (05:22→21:15)
[2017-09-17] MEDS: LEVOTHYROXINE SODIUM 75 MCG TAB PO SCH (05:22)
[2017-09-17 05:31] LABS: HEMATOCRIT 22.6 % (35.0-46.0); HEMOGLOBIN 7.4 GM/DL (11.6-15.3)
--- NOTE | 2017-09-17 07:25 | HHI.FPPN ---
Subjective Remarks AFVSS overnight. Had 2 episodes of maroon colored stool last night and this AM at 0600 hours. Says, if the surgery requires me to get a bag, I will not do it." She understands that she may if she did not get the procedure. She understands this risk. Denies SOB, CP, fatigue or feeling lightheaded. She reports sleeping well with the addition of ambien. (Jesus Mendiola MD, R3) Objective Vitals Vital Signs Date Time Temp Pulse Resp B/P (MAP) Pulse Ox O2 Delivery O2 Flow Rate FiO2 09/17/17 04:03 95 Nasal Cannula 2.00 09/17/17 04:00 98.0 79 15 142/65 (90) 97 09/17/17 00:00 98.0 96 18 136/65 (88) 96 09/16/17 22:35 94 2.00 09/16/17 20:00 97.9 96 23 163/80 (107) 97 09/16/17 19:30 Nasal Cannula 2.00 09/16/17 18:00 94 09/16/17 16:00 96 09/16/17 16:00 97.8 96 19 166/81 (109) 98 09/16/17 15:57 99 Nasal Cannula 2.00 09/16/17 14:00 92 09/16/17 12:00 98.0 90 18 154/73 (100) 99 09/16/17 12:00 90 09/16/17 10:00 90 09/16/17 08:00 90 09/16/17 08:00 97.9 88 18 170/79 (109) 97 I/O 09/16/17 09/16/17 09/16/17 09/17/17 09/17/17 09/17/17 07:00 15:00 23:00 07:00 15:00 23:00 Intake Total 770 ml 770 ml 400 ml Output Total 0 ml 4000 ml 0 ml Balance 770 ml -3230 ml 400 ml Intake Oral 720 ml 720 ml 400 ml IV Total 50 ml 50 ml Output Urine Total 0 ml 0 ml 0 ml Hemodialysis 4000 ml # Bowel Movements 0 1 1 (Jesus Mendiola MD, R3) Result Diagram: 09/17/17 0334 09/16/17 0823 Objective Remarks GEN: Well-developed, well-nourished patient. No acute distress. CV: Regular rate and rhythm without obvious murmurs LUNGS: Coarse breath sounds with rhonchi bilaterally, prolonged expiratory phase GI: nondistended, soft, NTTP, no rebound. BS present. EXT: No edema, chronic venous stasis changes, present. No calf tenderness. Right foot wrapped in Sarath bandage. Clean and dry. NEURO/PSYCH: Awake, alert. Appropriate insight and judgment. Normal speech (Jesus Mendiola MD, R3) A/P Assessment and Plan 72 y/o with chronic history of HTN, DM, ESRD, chronic foot wounds presents from podiatry clinic for evaluation. Admitted for osteomyelitis with debridement and possible amputation. Developed a GI bleed during hospitalization. Repeat colonoscopy was performed on 09/13/2017 with no bleeding source identified. Per vascular surgery and GI, patient may need a hemicolectomy if she continues to bleed during this hospitalization. Discharge Planning Undetermined at this time, pending definitive treatment of osteomyelitis. (Jesus Mendiola MD, R3) Attending Attestation Patient seen and examined. Discussed with Dr. Mendiola. Agree with assessment and plan as documented. (PrevatteCon Jr., MD) Problem List: (1) GI bleed ICD Codes: K92.2 - Gastrointestinal hemorrhage, unspecified Status: Acute Plan: Another large maroon colored BM this AM. Underwent a repeat colonoscopy on 09/13/2017. Results as follows: 1. Moderate diverticulosis was noted in the sigmoid colon 2. Blood throughout the colon but no active site of bleeding seen. suspect diverticular bleed 3. A sessile polyp ranging between 3-5mm in size was found in the sigmoid colon ; polypectomy was performed with cold forceps Hemoglobin 8.3 at 3 AM this morning compared to 9.1 yesterday 09/13 at 9AM. We will repeat at 1 PM Scope in July 2017 showed, 1 small polyp, diverticulosis, few small possible AVMs in the ascending colon. PLAN: GI and vascular surgery on board - appreciate recommendations Spoke with Dr. Reaves who is following her closely and will make decision on surgery if she continues to bleed and requires more blood transfusions H&H at 6 pm and 6 AM. Continue IV Protonix 40 mg IV BID (2) Osteomyelitis of ankle or foot, right, acute ICD Codes: M86.171 - Other acute osteomyelitis, right ankle and foot Status: Acute Plan: Patient with history of chronic right foot wounds that was currently being managed by podiatry (Dr. Bentley). Was hospitalized in July 2017 and underwent surgical exploration and had a wound VAC placed at that time. Admitted per the recommendation of podiatry due to worsening ulcer/wounds. MRI significant for osteomyelitis and multiple bones of the foot and ankle. -Wound cultures showing Corynebacterium sp. -Blood cultures NGTD -Will consult ID for assistance with antibiotic selection and duration. Podiatry consulted: appreciate recommendations * 09/07/17: Debridement of ulcers on right foot/ankle 3 * Plan on 09/[address] Reaves - postponed secondary to acute gastrointestinal bleeding. Focus is on GI bleed for now per Dr. Revaes Vascular consulted: appreciate recommendations * Pt with severe vascular changes, diabetic neuropathy Imaging: * MRI foot: Osteomyelitis develop at the fifth metatarsal base. Slight worsening osteomyelitis of the great toe head of the proximal phalanx and distal half of the distal phalanx. Worsening osteomyelitis of the fibular sesamoid. The superficial osteomyelitis of the tibial sesamoid not significantly changed. No drainable abscess. * MRI ankle: Severe soft tissue ulceration laterally and posteromedially of the ankle/hindfoot. Fluid collection in the posterior lateral gutter, potentially an abscess. Osteomyelitis of the calcaneus. Osteomyelitis of the distal fibula possible osteomyelitis focally of the posterior medial aspect of the talus. * Foot x-ray: Osteopenia, no acute bony abnormality. Medications * Vancomycin (09/06- per nephrology dosing/titration * Zosyn (09/07- (3) ESRD (end stage renal disease) on dialysis ICD Codes: N18.6 - End stage renal failure on dialysis; Z99.2 - Dependence on renal dialysis Status: Chronic Plan: Dialysis Saturday, Saturday, Saturday typically. Sees Dr. 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 No urine output Nephrology consulted: Appreciate recommendations * Resume dialysis 3x/wk * Monitor phosphorus intermittently, use binders as appropriate. * Fluid restriction (4) Diabetes mellitus ICD Codes: E11.9 - Type 2 diabetes mellitus without complications Status: Chronic Plan: History of long-term diabetes on insulin at home -Sliding scale insulin -Monitor accuchecks (5) Hypertension ICD Codes: I10 - Hypertension Status: Chronic Plan: BP elevated on admission the patient did miss dialysis on day of admission. Expect BP to improve as she resumes routine medications and dialysis. -Continue home amlodipine -Add hydralazine 25 mg BID. (6) Hypothyroidism ICD Codes: E03.9 - Hypothyroidism Status: Chronic Plan: Continue home Synthroid (7) FEN Status: Acute Plan: Fluids: None, on dialysis. Electrolytes: monitor, replace PRN Nutrition: As guided by GI DVT ppx: hold chemoppx due to surgery, SCDs WDW Dr. Sandhu (Jesus Mendiola MD, R3) Problem Qualifiers (1) GI bleed: Qualified Codes: K57.91 - Diverticulosis of intestine, part unspecified, without perforation or abscess with bleeding (2) Diabetes mellitus: Qualified Codes: E11.42 - Type 2 diabetes mellitus with diabetic polyneuropathy ; Z79.4 - correction (current) use of insulin (3) Hypertension: Qualified Codes: I10 - Essential (primary) hypertension (4) Hypothyroidism: Qualified Codes: E03.9 - Hypothyroidism, unspecified Jesus Mendiola MD, R3 Sep 17, 2017 07:25 Con Sandhu Jr., MD Sep 17, 2017 13:20
[2017-09-17] MEDS: SEVELAMER CARBONATE 800 MG TAB PO SCH ×3 (08:00→17:00)
[2017-09-17] MEDS: INSULIN ASPART SUPPLEMENTAL SCALE SQ SCH ×4 (08:00→21:00)
[2017-09-17] MEDS: DEXTROSE 10% INJ 500 ML IV SCH (08:19)
[2017-09-17] MEDS: DOCUSATE SODIUM 50 MG/SENNA 8.6 MG TAB PO SCH ×2 (08:19→21:15)
[2017-09-17] MEDS: SODIUM CHLORIDE 0.9% FLUSH 10 ML FLUSH IV FLUSH SCH ×2 (08:19→21:17)
[2017-09-17 08:37] LABS: HEMOGLOBIN 8.3 GM/DL (11.6-15.3)
[2017-09-17] MEDS: RESP: ALBUTEROL 2.5 MG/IPRATROPIUM 0.5 MG NEB (SCH) NEB ×3 (08:57→19:48)
[2017-09-17] MEDS: VITAMIN B CMPLX/VITC/FOLIC AC CAP PO SCH (09:00)
[2017-09-17] MEDS: IRON SUCROSE INJ 100 MG in SODIUM CHLORIDE 0.9% INJ 100 ML IV SCH (09:00)
[2017-09-17] MEDS: PANTOPRAZOLE SODIUM 40 MG VIAL IV PUSH SCH ×2 (09:00→21:15)
[2017-09-17] MEDS: cloNIDine HCL 0.1 MG TAB PO PRN (10:19)
[2017-09-17] MEDS ORDERED: PHENYLEPH/NS 1000 MCG/10 ML SYR IV ONE (10:30)
[2017-09-17] MEDS ORDERED: PROPOFOL 200 MG/20 ML AMP IV ONE (10:30)
[2017-09-17] MEDS ORDERED: LIDOCAINE HCL 1% PF 5 ML SYRINGE OTHER ONE (10:30)
[2017-09-17] MEDS: hydrALAZINE HCL 25 MG TAB PO SCH ×2 (11:00→21:15)
--- NOTE | 2017-09-17 12:34 | HHI.NPPN ---
Subjective General Problems: Anemia Renal Failure: Chronic, End Stage Renal Disease Interval History Dialyzed yesterday. No new developments. Hemoglobin is acceptable. (eTresa Parekh) Review of Systems General Constitutional: Fatigue (Teresa Parekh) Gastrointestinal Gastrointestinal: Blood/Tarry Stools (Teresa Parekh) Musculoskeletal MS: Pain/Stiffness (Teresa Parekh) Skin Skin: Ulcers (Teresa Parekh) Psych Psych: Depression (Teresa Parekh) Objective Data Data Vital Signs Date Time Temp Pulse Resp B/P (MAP) Pulse Ox O2 Delivery O2 Flow Rate FiO2 09/17/17 12:00 89 09/17/17 12:00 98.3 90 21 140/63 (88) 96 09/17/17 10:00 91 09/17/17 08:00 93 09/17/17 08:00 97.7 88 24 141/71 (94) 98 09/17/17 07:35 99 Nasal Cannula 3.00 09/17/17 07:00 100 Nasal Cannula 2.00 09/17/17 04:03 95 Nasal Cannula 2.00 09/17/17 04:00 98.0 79 15 142/65 (90) 97 09/17/17 00:00 98.0 96 18 136/65 (88) 96 09/16/17 22:35 94 2.00 09/16/17 20:00 97.9 96 23 163/80 (107) 97 09/16/17 19:30 Nasal Cannula 2.00 09/16/17 18:00 94 09/16/17 16:00 96 09/16/17 16:00 97.8 96 19 166/81 (109) 98 09/16/17 15:57 99 Nasal Cannula 2.00 09/16/17 14:00 92 (Teresa Parekh) -: 09/17/17 0827 09/16/17 0823 Physical Exam General Appearance: Well Developed, No Acute Distress, Comfortable, Malnourished (Teresa Parekh) Eyes Eye Exam: Pupils Equal (Teresa Parekh) Throat Throat Exam: Oral Mucosa Kopperl & Moist (Teresa Parekh) Neck Neck Exam: Neck Supple (Teresa Parekh) Pulmonary Resp Exam: Clear Bilaterally, Breath Sounds Equal (Teresa Parekh) Cardiology CV Exam: Regular, Normal Sinus Rhythm, Good Perfusion (Teresa Parekh) Gastrointestinal/Abdomen GI Exam: Soft, Non-Tender, Bowel Sounds Present, Positive Bowel Movement (Teresa Parekh) Genitourinary Exam: Clear Urine (Teresa Parekh) Musculoskeletal MS Exam: Joints Intact, Normal Tone, Good Strength (Teresa Parekh) Integumentary Skin Exam: Warm, Dry Skin Remarks right foot ulcer, dressing in place. (Teresa Parekh) Extremeties Extremities Exam: No Edema Extremeties Remarks Left arm AVF + bruit/thrill (Teresa Parekh) Neurologic Neuro Exam: Alert, Awake, Oriented, Speech Clear, Moving All Extremities (Teresa Parekh) Psychiatric Psych Exam: Appropriate Responses (Teresa Parekh) Assessment/Plan Discussed Condition With: Patient Assessment Summary: Anemia of CKD, Hypertension, End Stage Renal Disease Problem List: (1) ESRD (end stage renal disease) on dialysis ICD Codes: N18.6 - End stage renal failure on dialysis; Z99.2 - Dependence on renal dialysis Status: Chronic Plan: Continue HD MWF , due tomorrow Intermittently monitor renal profile. Continue current plan. Fluid restriction to 1500 ml/day. Avoid IVF. Protect left arm from procedures. (2) GI bleed ICD Codes: K92.2 - Gastrointestinal hemorrhage, unspecified Status: Acute Plan: GI following, s/p EGD/colonoscopy x 2 s/p bleeding scan and angiogram May need L partial colectomy, monitor for continued bleeding Thought to be diverticular in origin (3) Anemia ICD Codes: D64.9 - Anemia, unspecified Status: Acute Plan: 5th unit transfused since admission On Epogen with dialysis. Also on venofer. Stable GI bleed (4) Foot ulcer, right ICD Codes: L97.519 - Non-pressure chronic ulcer of other part of right foot with unspecified severity Status: Acute Plan: s/p debridement. will require BKA Vascular surgery following. On Zosyn and vancomycin. (5) Metabolic bone disease ICD Codes: E88.9 - Metabolic disorder, unspecified; M90.80 - Osteopathy in diseases classified elsewhere, unspecified site Status: Acute Plan: monitor phosphorus intermittently. She is on phosphate binder therapy. (6) Hypertension ICD Codes: I10 - Hypertension Status: Chronic Plan: monitor BP, continue medications. (7) Diabetes mellitus ICD Codes: E11.9 - Type 2 diabetes mellitus without complications Status: Chronic Plan: Continue insulin coverage while hospitalized, maintain blood glucose between 140 and 180. Use D10 @ 20 while NPO. (Teresa Parekh) Plan patient was seen and examined. Agree with above assessment and plan. (Dao Greene MD) Problem Qualifiers (1) GI bleed: Qualified Codes: K57.91 - Diverticulosis of intestine, part unspecified, without perforation or abscess with bleeding (2) Foot ulcer, right: Qualified Codes: L97.512 - Non-pressure chronic ulcer of other part of right foot with fat layer exposed (3) Hypertension: Qualified Codes: I10 - Essential (primary) hypertension (4) Diabetes mellitus: Qualified Codes: E11.42 - Type 2 diabetes mellitus with diabetic polyneuropathy ; Z79.4 - long-term (current) use of insulin Teresa Parekh Sep 17, 2017 12:34 Dao Greene MD Sep 17, 2017 14:35
[2017-09-17] MEDS ORDERED: ceFAZolin 2 GM PREMIX 50 ML IV SCH (15:30)
--- NOTE | 2017-09-17 15:38 | PD.CAR.PN ---
CVT Progress Note Subjective/Hospital Course: Consult received Full dictation to follow For podiatry debridement Saturday and after that we will evaluate as far as salvageability of the leg is concerned Thanks Jean Paul 09/09/17 Patient with severe peripheral vascular disease gangrene of the right heel and osteomyelitis Every effort has been made by podiatry to salvage the foot and there are no other options left I agree with Dr. Galvez and Dr. Nadir Mello, and the only option at this time is right below-knee amputation Patient scheduled for right below-knee amputation with second and third opinion of additional 2 physicians Today's BKA has to be canceled due to the fact that patient's hemoglobin is 6.7 and due to logistical reasons transfusion of 2 units PRBC was not not administered prior to taking patient to the operating room this afternoon. Considering this is purely elective procedure I believe it's safe and appropriate to transfuse this patient in peace and do surgery tomorrow Patient scheduled for right BKA tomorrow 09/10/17 Patient was initially rescheduled for surgery today however she had some bright red blood per rectum and surgery is now canceled GI bleeding takes precedence and patient will need a full workup on this issue before proceed with amputation If patient needs some gastrointestinal surgery or general surgical intervention I will be available and we'll continue to follow patient Once everything resolved we will reconsider the amputation issue 09/11/17 Hemoglobin again down to 6.9 g/dL as a result of GI bleeding Completely agree with medicine and gastroenterology approach and plan No clear site of bleeding and identified and this is often a problem in patients who have multiple pathologies, all of which could be attributing to the bleeding process including diverticular disease AVM malformations and such Most of these bleeds will see his on the round and only about 10-15% of patients will require actual surgery for the same. Precise identification of the bleeding site being the right or the left colon is imperative should patient require surgery for continuous bleeding, for knowing in their and having to do subtotal colectomy on this lady would double the mortality as opposed only removing the right or the left colon. Sometimes however we cannot identify the bleeding site and then subtotal colectomy remains the only option. Will continue follow patient which you and if patient require surgery I will be available to preform it. As far as the leg is concerned, amputation is now a secondary issue and will not be undertaken until the above issues are resolved and treated satisfactorily. 09/12/17 Patient currently stabilized from GI bleeding Hemoglobin is now stable Angiogram is negative for bleeding but that the requires at least the bleeding of 3 cc/minute to show up On the other hand no clear scan does reveal bleeding which in this case looks like transverse colon Majority of these bleeds will stop on the round with good supportive therapy and patient doesn't need further interventions On the other hand if the patient gets up to 6-8 units of blood transfusions than the risk of surgery is by far exceeded by the risk of repeated transfusions and then surgery is indicated We'll see how patient does and recommend as we go along Discussed with Dr Mi 09/13/17 Patient with diverticulosis and the likely transverse to left colon bleed Agree with Dr. Mi as to the site of bleeding Abdomen is soft active bowel sounds the patient appears to be stable She dropped her hemoglobin bit yesterday he received 1 more units of blood and now it's up again Patient is now 5 units PRBC later and the another unit or 2 and then we'll have to take patient to the operating room for extended left colectomy if this doesn't stop because then the risk of bleeding and problems with transfusion exceeds the risk of surgery We'll see the patient does through the weekend but she is close to needing surgery at this time 09/14/17 Patient doing okay now Abdomen is soft active bowel sounds Hemoglobin appears to be relatively stable between 9 and 8 g/dL and holding. As noted above patient has received 5 units of PRBCs up to now and once we get to point of 67 or 8 units and patient continues to lose blood, then the risk of surgery is less than the risk of repeated transfusions and at that point patient would need left colectomy. Discussed with Dr. Mi and we agree on being very conservative in this situation and doing everything to avoid surgery in this lady. Will continue to follow 09/15/17 Patient had some bleeding last night and hemoglobin was repeated to come back at 10 g/dL This was clearly old blood yet this morning hemoglobin is 8.1 g/dL some believe that former number was probably incorrect last night Patient doesn't appear to have active bleeding If she requires more blood and starts bleeding again should definitely go to the operating room from extended left colectomy At this point would advance to the diet and allow patient to eat and see how she does There is a high likelihood that patient will require left colon resection which of course is a procedure associated with some degree morbidity in this elderly lady. 09/16/17 Patient doing well at this time Abdomen soft active bowel sounds tolerates diet No more fresh or maroon blood per rectum Hemoglobin remains relatively stable between 7.5 and 8 g/dL Continue observation if patient drops hemoglobin 1 more time and starts bleeding she'll be going to the operating room for extended left colectomy 09/17/2017 Patient still passing clots some of the same I liquid blood and some more formed some maroon than some fresh At this point case discussed at length with medical attending and decision is made that this patient eventually clearly need surgery. I have discussed this with patient at length and she is reluctant to have surgery if she needs a colostomy, which is very unlikely but not completely excluded Patient will be cleaned out with GoLYTELY prep and is scheduled tomorrow for extended left colectomy with primary anastomosis Objective: Vital Signs Date Time Temp Pulse Resp B/P (MAP) Pulse Ox O2 Delivery O2 Flow Rate FiO2 09/17/17 14:00 92 09/17/17 12:00 89 09/17/17 12:00 98.3 90 21 140/63 (88) 96 09/17/17 10:00 91 09/17/17 08:00 93 09/17/17 08:00 97.7 88 24 141/71 (94) 98 09/17/17 07:35 99 Nasal Cannula 3.00 09/17/17 07:00 100 Nasal Cannula 2.00 09/17/17 04:03 95 Nasal Cannula 2.00 09/17/17 04:00 98.0 79 15 142/65 (90) 97 09/17/17 00:00 98.0 96 18 136/65 (88) 96 09/16/17 22:35 94 2.00 09/16/17 20:00 97.9 96 23 163/80 (107) 97 09/16/17 19:30 Nasal Cannula 2.00 09/16/17 18:00 94 09/16/17 16:00 96 09/16/17 16:00 97.8 96 19 166/81 (109) 98 09/16/17 15:57 99 Nasal Cannula 2.00 Labs: Laboratory Tests Test 09/17/17 03:34 09/17/17 08:27 Hemoglobin 7.4 GM/DL (11.6-15.3) 8.3 GM/DL (11.6-15.3) Hematocrit 22.6 % (35.0-46.0) 25.0 % (35.0-46.0) Result Diagram: 09/17/17 0827 09/16/17 0823 Amalia De La Cruz MD Sep 17, 2017 15:38
[2017-09-17] MEDS ORDERED: PEG (High)/E-LYTE SOLN 4000 ML BTL PO ONE (17:00)
[2017-09-17] MEDS ORDERED: CEFAZOLIN INJ 2,000 MG in SODIUM CHLORIDE 0.9% INJ 100 ML IV PRN (17:00)
[2017-09-17] MEDS: ONDANSETRON HCL 4 MG/2 ML VIAL IVP PRN (17:19)
[2017-09-17 20:16] LABS: HEMATOCRIT 22.8 % (35.0-46.0); HEMOGLOBIN 7.3 GM/DL (11.6-15.3)
[2017-09-17] MEDS: MIRTAZAPINE 15 MG TAB PO SCH (21:15)
[2017-09-17] MEDS: ZOLPIDEM TARTRATE 5 MG TAB PO PRN (21:15)
[2017-09-17] MEDS: hydrOXYzine HCL 25 MG TAB PO SCH (21:16)
[2017-09-18] VITALS (11 sets, daily range): BP systolic 115–178; BP diastolic 42–77; PULSE 74–93; RESP 11–30; TEMP 97.5–98.7; O2SAT 95–100
[2017-09-18] MEDS: ACETAMINOPHEN/HYDROcodone 325 MG/5 MG TAB PO PRN ×2 (02:55→14:42)
[2017-09-18 03:07] LABS: AUTOMATED NEUTROPHIL # 5.5 TH/MM3 (1.8-7.7); BASOPHIL # 0.1 TH/MM3 (0-0.2); BASOPHIL % 0.7 % (0.0-2.0); EOSINOPHIL # 0.7 TH/MM3 (0-0.4); EOSINOPHIL % 8.6 % (0.0-4.0); LYMPH % 18.4 % (9.0-44.0); LYMPHOCYTE # 1.6 TH/MM3 (1.0-4.8); MEAN CORPUSCULAR HEMOGLOBIN 27.8 PG (27.0-34.0); MEAN CORPUSCULAR HGB CONC 32.7 % (32.0-36.0); MEAN PLATELET VOLUME 8.7 FL (7.0-11.0); MONO % 8.4 % (0.0-8.0); MONOCYTE # 0.7 TH/MM3 (0-0.9); NEUT % 63.9 % (16.0-70.0); PLATELET COUNT 246 TH/MM3 (150-450); RED BLOOD COUNT 2.47 MIL/MM3 (4.00-5.30); RED CELL DISTRIBUTION WIDTH 18.3 % (11.6-17.2); WHITE BLOOD COUNT 8.7 TH/MM3 (4.0-11.0)
[2017-09-18 03:11] LABS: HEMOGLOBIN 6.9 GM/DL (11.6-15.3)
[2017-09-18 03:41] LABS: ALBUMIN 1.9 GM/DL (3.4-5.0); ALKALINE PHOSPHATASE 101 U/L (45-117); ALT (GPT) LESS THAN 6 U/L (10-53); AST (GOT) 23 U/L (15-37); BLOOD UREA NITROGEN 32 MG/DL (7-18); CALCIUM 7.9 MG/DL (8.5-10.1); CHLORIDE 100 MEQ/L (98-107); CREATININE 6.76 MG/DL (0.50-1.00); GLOMERULAR FILTRATION RATE 7 ML/MIN (>89); GLUCOSE,RANDOM 90 MG/DL (74-106); SODIUM (NA) 140 MEQ/L (136-145); TOTAL BILIRUBIN ADULT 0.3 MG/DL (0.2-1.0); TOTAL PROTEIN 6.3 GM/DL (6.4-8.2)
[2017-09-18] MEDS: LEVOTHYROXINE SODIUM 75 MCG TAB PO SCH (06:54)
[2017-09-18] MEDS: SEVELAMER CARBONATE 800 MG TAB PO SCH ×3 (06:54→17:00)
[2017-09-18] MEDS: PIPERACIL-TAZO 2.25 GM PREMIX 50 ML IV SCH ×3 (06:55→21:18)
[2017-09-18] MEDS: INSULIN ASPART SUPPLEMENTAL SCALE SQ SCH ×5 (08:00→21:00)
[2017-09-18] MEDS: RESP: ALBUTEROL 2.5 MG/IPRATROPIUM 0.5 MG NEB (SCH) NEB ×2 (08:40→13:42)
[2017-09-18] MEDS: EPOETIN ALFA 10,000 UNITS/ML VIAL IV PUSH PRN (08:45)
[2017-09-18] MEDS: SODIUM CHLORIDE 0.9% FLUSH 10 ML FLUSH IV FLUSH SCH ×2 (09:00→21:00)
[2017-09-18] MEDS: VITAMIN B CMPLX/VITC/FOLIC AC CAP PO SCH (09:00)
[2017-09-18] MEDS: IRON SUCROSE INJ 100 MG in SODIUM CHLORIDE 0.9% INJ 100 ML IV SCH (09:00)
[2017-09-18] MEDS: hydrALAZINE HCL 25 MG TAB PO SCH ×2 (09:00→21:19)
[2017-09-18] MEDS: DOCUSATE SODIUM 50 MG/SENNA 8.6 MG TAB PO SCH ×2 (09:00→21:00)
[2017-09-18] MEDS: PANTOPRAZOLE SODIUM 40 MG VIAL IV PUSH SCH ×2 (10:01→21:18)
[2017-09-18] MEDS: DEXTROSE 10% INJ 500 ML IV SCH (10:15)
--- NOTE | 2017-09-18 11:23 | HHI.FPPN ---
Subjective Remarks Patient feeling "good". Had 7 large BMS last night with prep. Dark blood per RN. No abdominal pain. Getting dialysis during history. Received 1 unit of PRBCs this AM. Plan for surgery today at 1530. (Jesus Mendiola MD, R3) Objective Vitals Vital Signs Date Time Temp Pulse Resp B/P (MAP) Pulse Ox O2 Delivery O2 Flow Rate FiO2 09/18/17 08:40 100 Nasal Cannula 2.00 09/18/17 07:00 100 Nasal Cannula 2.00 09/18/17 06:00 77 09/18/17 05:48 98.7 77 20 158/77 100 09/18/17 04:00 78 09/18/17 04:00 98.2 74 20 149/70 (96) 100 09/18/17 02:07 95 Nasal Cannula 2.00 09/18/17 02:00 77 09/18/17 00:00 93 09/18/17 00:00 98.2 84 20 115/57 (76) 99 09/17/17 22:00 83 09/17/17 20:00 98.4 84 20 150/65 (93) 100 09/17/17 20:00 87 09/17/17 19:51 97 Nasal Cannula 2.00 09/17/17 19:00 100 Nasal Cannula 2.00 09/17/17 18:00 94 09/17/17 16:00 98.1 91 20 126/60 (82) 95 09/17/17 16:00 90 09/17/17 14:00 92 09/17/17 12:00 89 09/17/17 12:00 98.3 90 21 140/63 (88) 96 I/O 09/17/17 09/17/17 09/17/17 09/18/17 09/18/17 09/18/17 07:00 15:00 23:00 07:00 15:00 23:00 Intake Total 400 ml 650 ml 2010 ml 50 ml Output Total 0 ml 0 ml 0 ml 3000 ml Balance 400 ml 650 ml 2010 ml -2950 ml Intake Oral 400 ml 600 ml 2000 ml IV Total 50 ml 50 ml Blood Product IV Normal Saline Flush 10 ml Output Urine Total 0 ml 0 ml 0 ml Hemodialysis 3000 ml # Bowel Movements 1 1 6 (Jesus Mendiola MD, R3) Result Diagram: 09/18/1722609/18/174 Objective Remarks GEN: Well-developed, well-nourished patient. No acute distress. CV: Regular rate and rhythm without obvious murmurs LUNGS: Coarse breath sounds with rhonchi bilaterally, prolonged expiratory phase GI: nondistended, soft, NTTP, no rebound. BS present. EXT: No edema, chronic venous stasis changes, present. No calf tenderness. Right foot wrapped in Sarath bandage. Clean and dry. NEURO/PSYCH: Awake, alert. Appropriate insight and judgment. Normal speech (Jesus Mendiola MD, R3) A/P Assessment and Plan 72 y/o with chronic history of HTN, DM, ESRD, chronic foot wounds presents from podiatry clinic for evaluation. Admitted for osteomyelitis with debridement and possible amputation. Developed a GI bleed during hospitalization. Repeat colonoscopy was performed on 09/13/2017 with no bleeding source identified. Planned for hemicolectomy for recurrent bleeding. Discharge Planning Undetermined at this time, pending definitive treatment of osteomyelitis. (Jesus Mendiola MD, R3) Attending Attestation I examined the patient at 8:10 this morning, prior to dialysis. She was resting comfortably and voiced no new complaints. I agree with the physical findings documented by Dr. Mendiola. I have discussed the case with Dr. Mendiola and I agree with the plan for surgery later today. (Prevatte,Con Cummings Jr., MD) Problem List: (1) GI bleed ICD Codes: K92.2 - Gastrointestinal hemorrhage, unspecified Status: Acute Plan: Repeat colonoscopy on 09/13/2017. Results as follows: 1. Moderate diverticulosis was noted in the sigmoid colon 2. Blood throughout the colon but no active site of bleeding seen. suspect diverticular bleed. 3. A sessile polyp ranging between 3-5mm in size was found in the sigmoid colon ; polypectomy was performed with cold forceps Hemoglobin 6.9 on 09/18/2017 - given another unit of PRBCs on 09/18/17 in AM prior to surgery. PLAN: Spoke with Dr. Reaves who is following her closely and given recurrent blood in her stool and dropping Hgb: will go forward with hemicolectomy to remove source. I called and spoke with Isabella the daughter. Pt and daughter understand the risk of colostomy bag is low, however still possible pending surgery. H&H at 8 pm after surgery. Transfuse as clinically appropriate. Continue IV Protonix 40 mg IV BID. Monitor vitals. (2) Osteomyelitis of ankle or foot, right, acute ICD Codes: M86.171 - Other acute osteomyelitis, right ankle and foot Status: Acute Plan: Patient with history of chronic right foot wounds that was currently being managed by podiatry (Dr. Bnetley). Was hospitalized in July 2017 and underwent surgical exploration and had a wound VAC placed at that time. Admitted per the recommendation of podiatry due to worsening ulcer/wounds. MRI significant for osteomyelitis and multiple bones of the foot and ankle. -Wound cultures showing Corynebacterium sp. -Blood cultures NGTD -Will consult ID for assistance with antibiotic selection and duration. Podiatry consulted: appreciate recommendations * 09/07/17: Debridement of ulcers on right foot/ankle 3 * Plan on 09/[address] Reaves - postponed secondary to acute gastrointestinal bleeding. Focus is on GI bleed for now per Dr. Reaves Vascular consulted: appreciate recommendations * Pt with severe vascular changes, diabetic neuropathy Imaging: * MRI foot: Osteomyelitis develop at the fifth metatarsal base. Slight worsening osteomyelitis of the great toe head of the proximal phalanx and distal half of the distal phalanx. Worsening osteomyelitis of the fibular sesamoid. The superficial osteomyelitis of the tibial sesamoid not significantly changed. No drainable abscess. * MRI ankle: Severe soft tissue ulceration laterally and posteromedially of the ankle/hindfoot. Fluid collection in the posterior lateral gutter, potentially an abscess. Osteomyelitis of the calcaneus. Osteomyelitis of the distal fibula possible osteomyelitis focally of the posterior medial aspect of the talus. * Foot x-ray: Osteopenia, no acute bony abnormality. Medications * Vancomycin (09/06- per nephrology dosing/titration * Zosyn (09/07- (3) ESRD (end stage renal disease) on dialysis ICD Codes: N18.6 - End stage renal failure on dialysis; Z99.2 - Dependence on renal dialysis Status: Chronic Plan: Dialysis Saturday, Saturday, Saturday typically. Sees Dr. Buchanan, quality engineer medical device outpatient. No urine output Nephrology consulted: Appreciate recommendations * Resume dialysis 3x/wk * Monitor phosphorus intermittently, use binders as appropriate. * Fluid restriction (4) Diabetes mellitus ICD Codes: E11.9 - Type 2 diabetes mellitus without complications Status: Chronic Plan: History of long-term diabetes on insulin at home -Sliding scale insulin -Monitor accuchecks (5) Hypertension ICD Codes: I10 - Hypertension Status: Chronic Plan: BP elevated on admission the patient did miss dialysis on day of admission. Expect BP to improve as she resumes routine medications and dialysis. -Continue home amlodipine -Add hydralazine 25 mg BID. (6) Hypothyroidism ICD Codes: E03.9 - Hypothyroidism Status: Chronic Plan: Continue home Synthroid (7) FEN Status: Acute Plan: Fluids: None, on dialysis. Electrolytes: monitor, replace PRN Nutrition: As guided by GI DVT ppx: hold chemoppx due to surgery, SCDs WDW Dr. Sandhu (Jesus Mendiola MD, R3) Problem Qualifiers (1) GI bleed: Qualified Codes: K57.91 - Diverticulosis of intestine, part unspecified, without perforation or abscess with bleeding (2) Diabetes mellitus: Qualified Codes: E11.42 - Type 2 diabetes mellitus with diabetic polyneuropathy ; Z79.4 - director long term care (current) use of insulin (3) Hypertension: Qualified Codes: I10 - Essential (primary) hypertension (4) Hypothyroidism: Qualified Codes: E03.9 - Hypothyroidism, unspecified Jesus Mendiola MD, R3 Sep 18, 2017 11:23 Con Sandhu Jr., MD Sep 18, 2017 16:59
[2017-09-18] MEDS ORDERED: ROCURONIUM INJ 50 MG/5 ML SYRINGE IV PUSH ONE (12:00)
[2017-09-18] MEDS ORDERED: ONDANSETRON HCL 4 MG/2 ML VIAL IV ONE (12:00)
[2017-09-18] MEDS ORDERED: PHENYLEPH/NS 1000 MCG/10 ML SYR IV ONE (12:00)
[2017-09-18] MEDS ORDERED: hydrALAZINE HCL 20 MG/ML VIAL IV ONE (12:00)
[2017-09-18] MEDS ORDERED: LIDOCAINE HCL 1% PF 5 ML SYRINGE OTHER ONE (12:00)
[2017-09-18] MEDS ORDERED: PROPOFOL 200 MG/20 ML AMP IV ONE (12:00)
[2017-09-18] MEDS ORDERED: ePHEDrine/NS 25 MG/5 ML SYRINGE IV ONE (12:00)
--- NOTE | 2017-09-18 12:55 | HHI.NPPN ---
Subjective General Problems: Anemia Renal Failure: Chronic, End Stage Renal Disease Interval History Rectal bleeding continues, more anemic today. She was given one unit PRBC today. Seen during dialysis. NPO for colectomy today. (Teresa Parekh) Review of Systems General Constitutional: Fatigue (Teresa Parekh) Gastrointestinal Gastrointestinal: Blood/Tarry Stools (Teresa Parekh) Musculoskeletal MS: Pain/Stiffness (Teresa Parekh) Skin Skin: Ulcers (Teresa Parekh) Psych Psych: Depression (Teresa Parekh) Objective Data Data 09/18/17 09/19/17 18:59 06:59 Intake Total 50 ml Output Total 3000 ml Balance -2950 ml IV Total 50 ml Hemodialysis 3000 ml Vital Signs Date Time Temp Pulse Resp B/P (MAP) Pulse Ox O2 Delivery O2 Flow Rate FiO2 09/18/17 08:40 100 Nasal Cannula 2.00 09/18/17 08:00 98.5 78 11 141/67 (91) 100 09/18/17 07:00 100 Nasal Cannula 2.00 09/18/17 06:00 77 09/18/17 05:48 98.7 77 20 158/77 100 09/18/17 04:00 78 09/18/17 04:00 98.2 74 20 149/70 (96) 100 09/18/17 02:07 95 Nasal Cannula 2.00 09/18/17 02:00 77 09/18/17 00:00 93 09/18/17 00:00 98.2 84 20 115/57 (76) 99 09/17/17 22:00 83 09/17/17 20:00 98.4 84 20 150/65 (93) 100 09/17/17 20:00 87 09/17/17 19:51 97 Nasal Cannula 2.00 09/17/17 19:00 100 Nasal Cannula 2.00 09/17/17 18:00 94 09/17/17 16:00 98.1 91 20 126/60 (82) 95 09/17/17 16:00 90 09/17/17 14:00 92 (Teresa Parekh) -: 2/7/18 0227 2/7/18 0224 Physical Exam General Appearance: Well Developed, No Acute Distress, Comfortable, Malnourished (Teresa Parekh) Eyes Eye Exam: Pupils Equal (Teresa Parekh) Throat Throat Exam: Oral Mucosa [place] & Moist (Teresa Parekh) Neck Neck Exam: Neck Supple (Teresa Parekh) Pulmonary Resp Exam: Clear Bilaterally, Breath Sounds Equal (Teresa Parekh) Cardiology CV Exam: Regular, Normal Sinus Rhythm, Good Perfusion (Teresa Parekh) Gastrointestinal/Abdomen GI Exam: Soft, Non-Tender, Bowel Sounds Present, Positive Bowel Movement (Teresa Parekh) Genitourinary Exam: Clear Urine (Teresa Parekh) Musculoskeletal MS Exam: Joints Intact, Normal Tone, Good Strength (Teresa Parekh) Integumentary Skin Exam: Warm, Dry Skin Remarks right foot ulcer, dressing in place. (Teresa Parekh) Extremeties Extremities Exam: No Edema Extremeties Remarks Left arm AVF + bruit/thrill (Teresa Parekh) Neurologic Neuro Exam: Alert, Awake, Oriented, Speech Clear, Moving All Extremities (Teresa Parekh) Psychiatric Psych Exam: Appropriate Responses (Teresa Parekh) Assessment/Plan Discussed Condition With: Patient Assessment Summary: Anemia of CKD, Hypertension, End Stage Renal Disease Problem List: (1) ESRD (end stage renal disease) on dialysis ICD Codes: N18.6 - End stage renal failure on dialysis; Z99.2 - Dependence on renal dialysis Status: Chronic Plan: Seen during dialysis today on a 2K, 350 BFR, goal 3L Continue HD MWF Intermittently monitor renal profile. Continue current plan. Fluid restriction to 1500 ml/day. Avoid IVF. Protect left arm from procedures. (2) GI bleed ICD Codes: K92.2 - Gastrointestinal hemorrhage, unspecified Status: Acute Plan: GI following, s/p EGD/colonoscopy x 2 s/p bleeding scan and angiogram Due for L partial colectomy today (3) Anemia ICD Codes: D64.9 - Anemia, unspecified Status: Acute Plan: Given one unit today, total of 6 units since admission On Epogen with dialysis. Also on venofer. Persistent GI bleed (4) Foot ulcer, right ICD Codes: L97.519 - Non-pressure chronic ulcer of other part of right foot with unspecified severity Status: Acute Plan: s/p debridement. will require BKA Vascular surgery following. On Zosyn and vancomycin. (5) Metabolic bone disease ICD Codes: E88.9 - Metabolic disorder, unspecified; M90.80 - Osteopathy in diseases classified elsewhere, unspecified site Status: Acute Plan: monitor phosphorus intermittently. She is on phosphate binder therapy. (6) Hypertension ICD Codes: I10 - Hypertension Status: Chronic Plan: monitor BP, continue medications. (7) Diabetes mellitus ICD Codes: E11.9 - Type 2 diabetes mellitus without complications Status: Chronic Plan: Continue insulin coverage while hospitalized, maintain blood glucose between 140 and 180. Use D10 @ 20 while NPO. (Teresa Parekh) Plan patient was seen and examined. Agree with above assessment and plan. Reevaluate antibiotic use. 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
[2017-09-18] MEDS ORDERED: BUPIVACAINE/EPINEPHRINE 0.25% 50 ML VIAL ONE (15:11)
[2017-09-18] MEDS ORDERED: ceFAZolin INJ 1,000 MG VIAL ONE (15:11)
[2017-09-18] MEDS ORDERED: OXYMETAZOLINE HCL 0.05% 15 ML NASAL SPRAY ONE (18:43)
[2017-09-18] MEDS ORDERED: SUGAMMADEX SODIUM 200 MG/2 ML VIAL IV PUSH ONE (18:48)
[2017-09-18] MEDS ORDERED: *morphine SULFATE 4 MG/ML PERIprocedure ONLY ONE (19:44)
[2017-09-18] MEDS ORDERED: DO NOT ADM ANY ANTICOAGULANT DRUGS PRN (19:45)
[2017-09-18] MEDS: SODIUM CHLOR 0.9% 1000 ML INJ 1,000 ML IV SCH ×2 (20:00→21:00)
[2017-09-18 20:08] LABS: HEMOGLOBIN 8.5 GM/DL (11.6-15.3)
[2017-09-18] MEDS: MIRTAZAPINE 15 MG TAB PO SCH (21:00)
[2017-09-18] MEDS: hydrOXYzine HCL 25 MG TAB PO SCH (21:25)
[2017-09-19] VITALS (12 sets, daily range): BP systolic 134–167; BP diastolic 39–74; PULSE 84–90; RESP 18–25; TEMP 98–98.8; O2SAT 98–100
[2017-09-19] MEDS: ACETAMINOPHEN/HYDROcodone 325 MG/5 MG TAB PO PRN (03:15)
[2017-09-19 03:45] LABS: AUTOMATED NEUTROPHIL # 14.8 TH/MM3 (1.8-7.7); BASOPHIL # 0.2 TH/MM3 (0-0.2); BASOPHIL % 1.3 % (0.0-2.0); EOSINOPHIL # 0.1 TH/MM3 (0-0.4); EOSINOPHIL % 0.7 % (0.0-4.0); HEMATOCRIT 24.9 % (35.0-46.0); HEMOGLOBIN 8.2 GM/DL (11.6-15.3); LYMPH % 3.1 % (9.0-44.0); LYMPHOCYTE # 0.5 TH/MM3 (1.0-4.8); MEAN CELL VOLUME 84.9 FL (80.0-100.0); MEAN PLATELET VOLUME 8.6 FL (7.0-11.0); MONO % 7.2 % (0.0-8.0); MONOCYTE # 1.2 TH/MM3 (0-0.9); NEUT % 87.7 % (16.0-70.0); PLATELET COUNT 284 TH/MM3 (150-450); RED BLOOD COUNT 2.93 MIL/MM3 (4.00-5.30); RED CELL DISTRIBUTION WIDTH 17.4 % (11.6-17.2); WHITE BLOOD COUNT 16.9 TH/MM3 (4.0-11.0)
[2017-09-19 04:14] LABS: ALBUMIN 1.7 GM/DL (3.4-5.0); ALKALINE PHOSPHATASE 93 U/L (45-117); ALT (GPT) LESS THAN 6 U/L (10-53); AST (GOT) 17 U/L (15-37); BICARBONATE 33.3 MEQ/L (21.0-32.0); BLOOD UREA NITROGEN 19 MG/DL (7-18); CALCIUM 7.8 MG/DL (8.5-10.1); CHLORIDE 101 MEQ/L (98-107); CREATININE 4.69 MG/DL (0.50-1.00); GLOMERULAR FILTRATION RATE 11 ML/MIN (>89); GLUCOSE,RANDOM 71 MG/DL (74-106); SODIUM (NA) 142 MEQ/L (136-145); TOTAL BILIRUBIN ADULT 0.4 MG/DL (0.2-1.0)
[2017-09-19 04:57] LABS: BANDS 2 % (0-6); LYMPHOCYTES 1 % (9-44); METAMYELOCYTES 2 % (0-1); MONOCYTES 1 % (0-8); NEUTROPHIL # MANUAL DIFF 16.6 TH/MM3 (1.8-7.7); POLYS (SEG NEUTROPHILS) 94 % (16-70)
[2017-09-19 04:58] LABS: OVALOCYTES 1+ (NORMAL)
[2017-09-19] MEDS: PIPERACIL-TAZO 2.25 GM PREMIX 50 ML IV SCH ×3 (05:32→22:49)
[2017-09-19] MEDS: LEVOTHYROXINE SODIUM 75 MCG TAB PO SCH (05:32)
--- NOTE | 2017-09-19 07:06 | HHI.FPPN ---
Subjective Remarks Patient reports being in severe pain throughout her abdomen. /, constant sharp and stabbing. Also having pain in her throat that is new. She is requesting something to drink. She is oriented to place, person and time. No cp or SOB reported on ROS. (Jesus Mendiola MD, R3) Objective Vitals Vital Signs Date Time Temp Pulse Resp B/P (MAP) Pulse Ox O2 Delivery O2 Flow Rate FiO2 09/19/17 06:00 90 09/19/17 04:15 28 09/19/17 04:00 98.5 88 25 154/40 (78) 100 09/19/17 04:00 88 09/19/17 02:00 88 09/19/17 00:21 98 Nasal Cannula 4.00 09/19/17 00:00 98.0 90 18 134/43 (73) 100 09/19/17 00:00 90 09/18/17 22:00 85 09/18/17 21:15 100 Nasal Cannula 4.00 09/18/17 21:15 97.5 84 30 178/42 (87) 100 Automatic Cuff 09/18/17 21:15 84 09/18/17 20:45 97.5 81 20 148/66 (93) 100 Nasal Cannula 4 09/18/17 20:30 80 18 153/67 (95) 100 Nasal Cannula 4 09/18/17 20:15 80 20 158/68 (98) 100 Nasal Cannula 4 09/18/17 20:00 77 22 158/68 (98) 100 Nasal Cannula 4 09/18/17 19:45 78 16 149/67 (94) 100 Nasal Cannula 4 09/18/17 19:30 77 22 159/68 (98) 100 Nasal Cannula 4 09/18/17 19:15 73 24 131/57 (81) 100 Nasal Cannula 4 09/18/17 19:08 97.4 73 20 144/64 (90) 100 Nasal Cannula 4 09/18/17 15:32 Nasal Cannula 2 09/18/17 12:00 98.5 87 18 167/71 (103) 99 09/18/17 08:40 100 Nasal Cannula 2.00 09/18/17 08:00 98.5 78 11 141/67 (91) 100 I/O 09/18/17 09/18/17 09/18/17 09/19/17 09/19/1709/19/18 07:00 15:00 23:00 07:00 15:00 23:00 Intake Total 2010 ml 50 ml 300 ml 60 ml Output Total 0 ml 3000 ml 530 ml 160 ml Balance 2010 ml -2950 ml -230 ml -100 ml Intake Oral 2000 ml 0 ml 60 ml IV Total 50 ml 100 ml Blood Product IV Normal Saline Flush 10 ml Other 200 ml Output Urine Total 0 ml 0 ml Drainage Total 380 ml 160 ml Hemodialysis 3000 ml Estimated Blood Loss 150 ml # Bowel Movements 6 (Jesus Mendiola MD, R3) Result Diagram: 09/19/1731409/19/17314 Objective Remarks GEN: Well-developed, well-nourished patient. No acute distress. CV: Regular rate and rhythm without obvious murmurs LUNGS: Coarse breath sounds with rhonchi bilaterally, prolonged expiratory phase GI: nondistended, soft, TTP throughout, abdominal binder in place. EXT: No edema, chronic venous stasis changes, present. No calf tenderness. Right foot wrapped in Sarath bandage. Clean and dry. NEURO/PSYCH: Awake, alert. Appropriate insight and judgment. Normal speech (Jesus Mendiola MD, R3) A/P Assessment and Plan 72 y/o with chronic history of HTN, DM, ESRD, chronic foot wounds presents from podiatry clinic for evaluation. Admitted for osteomyelitis with debridement and possible amputation. Developed a GI bleed during hospitalization. Repeat colonoscopy was performed on 09/13/2017 with no bleeding source identified. Planned for hemicolectomy for recurrent bleeding. Discharge Planning Undetermined at this time, pending definitive treatment of osteomyelitis. (Jesus Mendiola MD, R3) Attending Attestation I examined the patient at 1205 today. She was resting comfortably but complained of mild post surgical abdominal pain. The case was discussed with Dr. Mendiola. I agree with the assessment and plan as documented by Dr. Mendiola. (Prevatte,Con Cummings Jr., MD) Problem List: (1) GI bleed ICD Codes: K92.2 - Gastrointestinal hemorrhage, unspecified Status: Acute Plan: Repeat colonoscopy on 09/13/2017. Results as follows: 1. Moderate diverticulosis was noted in the sigmoid colon 2. Blood throughout the colon but no active site of bleeding seen. suspect diverticular bleed. 3. A sessile polyp ranging between 3-5mm in size was found in the sigmoid colon ; polypectomy was performed with cold forceps Hemoglobin 6.9 on 09/18/2017 - given another unit of PRBCs on 09/18/17 in AM prior to surgery. PLAN: S/P hemicolectomy with surgical anastomosis. H&H at 8 pm after surgery was 8.2. Recheck H&H at 1600 hrs. Transfuse as clinically appropriate. Continue IV Protonix 40 mg IV BID. Advance diet at discretion of surgery. Pain control with IV Morphine 4 mg q 4 pain 1-10, and 2 mg IV for breakthrough q 3 hours. Titrate as tolerated and to pain level. Monitor vitals. (2) Osteomyelitis of ankle or foot, right, acute ICD Codes: M86.171 - Other acute osteomyelitis, right ankle and foot Status: Acute Plan: Patient with history of chronic right foot wounds that was currently being managed by podiatry (Dr. Bentley). Was hospitalized in July 2017 and underwent surgical exploration and had a wound VAC placed at that time. Admitted per the recommendation of podiatry due to worsening ulcer/wounds. MRI significant for osteomyelitis and multiple bones of the foot and ankle. -Wound cultures showing Corynebacterium sp. -Blood cultures NGTD -Will consult ID for assistance with antibiotic selection and duration. Podiatry consulted: appreciate recommendations * 09/07/17: Debridement of ulcers on right foot/ankle 3 * Plan on 09/[address] Reaves - postponed secondary to acute gastrointestinal bleeding. Focus is on GI bleed for now per Dr. Reaves Vascular consulted: appreciate recommendations * Pt with severe vascular changes, diabetic neuropathy Imaging: * MRI foot: Osteomyelitis develop at the fifth metatarsal base. Slight worsening osteomyelitis of the great toe head of the proximal phalanx and distal half of the distal phalanx. Worsening osteomyelitis of the fibular sesamoid. The superficial osteomyelitis of the tibial sesamoid not significantly changed. No drainable abscess. * MRI ankle: Severe soft tissue ulceration laterally and posteromedially of the ankle/hindfoot. Fluid collection in the posterior lateral gutter, potentially an abscess. Osteomyelitis of the calcaneus. Osteomyelitis of the distal fibula possible osteomyelitis focally of the posterior medial aspect of the talus. * Foot x-ray: Osteopenia, no acute bony abnormality. Medications * Vancomycin (09/06- per nephrology dosing/titration * Zosyn (09/07- (3) ESRD (end stage renal disease) on dialysis ICD Codes: N18.6 - End stage renal failure on dialysis; Z99.2 - Dependence on renal dialysis Status: Chronic Plan: Dialysis Saturday, Saturday, Saturday typically. Sees Dr. Buchanan, expressive therapist outpatient. No urine output Nephrology consulted: Appreciate recommendations * Resume dialysis 3x/wk * Monitor phosphorus intermittently, use binders as appropriate. * Fluid restriction (4) Diabetes mellitus ICD Codes: E11.9 - Type 2 diabetes mellitus without complications Status: Chronic Plan: History of long-term diabetes on insulin at home -Sliding scale insulin -Monitor accuchecks (5) Hypertension ICD Codes: I10 - Hypertension Status: Chronic Plan: BP better controlled with addition of hydralazine 25 mg BID. Cont home amlodipine. (6) Hypothyroidism ICD Codes: E03.9 - Hypothyroidism Status: Chronic Plan: Continue home Synthroid. (7) FEN Status: Acute Plan: Fluids: NS at 60 ml/hr, on dialysis. As determined by surgeon. No signs of fluid overload on exam this AM. Electrolytes: monitor, replace PRN. Nutrition: As guided by GI DVT ppx: hold chemoppx due to surgery, SCDs WDW Dr. 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
[2017-09-19] MEDS: INSULIN ASPART SUPPLEMENTAL SCALE SQ SCH ×4 (08:00→21:00)
[2017-09-19] MEDS: SEVELAMER CARBONATE 800 MG TAB PO SCH ×3 (08:00→14:02)
[2017-09-19] MEDS ORDERED: MORPHINE SULFATE 4 MG/ML INJ IV PUSH PRN (08:15)
[2017-09-19] MEDS: SODIUM CHLORIDE 0.9% FLUSH 10 ML FLUSH IV FLUSH SCH ×2 (08:50→20:36)
[2017-09-19] MEDS: VITAMIN B CMPLX/VITC/FOLIC AC CAP PO SCH (08:50)
[2017-09-19] MEDS: DOCUSATE SODIUM 50 MG/SENNA 8.6 MG TAB PO SCH ×2 (08:51→20:36)
[2017-09-19] MEDS: PANTOPRAZOLE SODIUM 40 MG VIAL IV PUSH SCH ×2 (08:53→20:36)
[2017-09-19] MEDS: IRON SUCROSE INJ 100 MG in SODIUM CHLORIDE 0.9% INJ 100 ML IV SCH (08:53)
[2017-09-19] MEDS: hydrALAZINE HCL 25 MG TAB PO SCH ×2 (08:54→20:36)
--- NOTE | 2017-09-19 12:15 | HHI.NPPN ---
Subjective General Problems: Anemia Renal Failure: Chronic, End Stage Renal Disease Interval History She had left hemicolectomy with anastomosis yesterday. Asking for PO fluids. (Teresa Parekh) Review of Systems General Constitutional: Fatigue (Teresa Parekh) Gastrointestinal Gastrointestinal: Blood/Tarry Stools (Teresa Parekh) Musculoskeletal MS: Pain/Stiffness (Teresa Parekh) Skin Skin: Ulcers (Teresa Parekh) Psych Psych: Depression (Teresa Parekh) Objective Data Data Vital Signs Date Time Temp Pulse Resp B/P (MAP) Pulse Ox O2 Delivery O2 Flow Rate FiO2 09/19/17 08:14 100 Nasal Cannula 2.00 09/19/17 08:00 98.8 86 20 141/39 (73) 100 09/19/17 07:00 100 Nasal Cannula 4.00 09/19/17 06:00 90 09/19/17 04:15 28 09/19/17 04:00 98.5 88 25 154/40 (78) 100 09/19/17 04:00 88 09/19/17 02:00 88 09/19/17 00:21 98 Nasal Cannula 4.00 09/19/17 00:00 98.0 90 18 134/43 (73) 100 09/19/17 00:00 90 09/18/17 22:00 85 09/18/17 21:15 100 Nasal Cannula 4.00 09/18/17 21:15 97.5 84 30 178/42 (87) 100 Automatic Cuff 09/18/17 21:15 84 09/18/17 20:45 97.5 81 20 148/66 (93) 100 Nasal Cannula 4 09/18/17 20:30 80 18 153/67 (95) 100 Nasal Cannula 4 09/18/17 20:15 80 20 158/68 (98) 100 Nasal Cannula 4 09/18/17 20:00 77 22 158/68 (98) 100 Nasal Cannula 4 09/18/17 19:45 78 16 149/67 (94) 100 Nasal Cannula 4 09/18/17 19:30 77 22 159/68 (98) 100 Nasal Cannula 4 09/18/17 19:15 73 24 131/57 (81) 100 Nasal Cannula 4 09/18/17 19:08 97.4 73 20 144/64 (90) 100 Nasal Cannula 4 09/18/17 15:32 Nasal Cannula 2 (Teresa Parekh) -: 09/19/1731409/19/17314 Physical Exam General Appearance: Well Developed, No Acute Distress, Comfortable, Malnourished (Teresa Parekh) Eyes Eye Exam: Pupils Equal (Teresa Parekh) Throat Throat Exam: Oral Mucosa [place] & Moist (Teresa Parekh) Neck Neck Exam: Neck Supple (Teresa Parekh) Pulmonary Resp Exam: Clear Bilaterally, Breath Sounds Equal (Teresa Parekh) Cardiology CV Exam: Regular, Normal Sinus Rhythm, Good Perfusion (Teresa Parekh) Gastrointestinal/Abdomen GI Exam: Soft, Non-Tender, Bowel Sounds Present, Positive Bowel Movement (Teresa Parekh) Genitourinary Exam: Clear Urine (Teresa Parekh) Musculoskeletal MS Exam: Joints Intact, Normal Tone, Good Strength (Teresa Parekh) Integumentary Skin Exam: Warm, Dry Skin Remarks right foot ulcer, dressing in place. (Teresa Parekh) Extremeties Extremities Exam: No Edema Extremeties Remarks Left arm AVF + bruit/thrill (Teresa Parekh) Neurologic Neuro Exam: Alert, Awake, Oriented, Speech Clear, Moving All Extremities (Teresa Parekh) Psychiatric Psych Exam: Appropriate Responses (Teresa Parekh) Assessment/Plan Discussed Condition With: Patient Assessment Summary: Anemia of CKD, Hypertension, End Stage Renal Disease Problem List: (1) ESRD (end stage renal disease) on dialysis ICD Codes: N18.6 - End stage renal failure on dialysis; Z99.2 - Dependence on renal dialysis Status: Chronic Plan: Continue HD MWF, due tomorrow Intermittently monitor renal profile. Continue current plan. Fluid restriction to 1500 ml/day. Avoid IVF. Protect left arm from procedures. (2) GI bleed ICD Codes: K92.2 - Gastrointestinal hemorrhage, unspecified Status: Acute Plan: GI and general surgery following, s/p L hemicolectomy yesterday (3) Anemia ICD Codes: D64.9 - Anemia, unspecified Status: Acute Plan: Given 6 units since admission On Epogen with dialysis. Also on venofer. (4) Foot ulcer, right ICD Codes: L97.519 - Non-pressure chronic ulcer of other part of right foot with unspecified severity Status: Acute Plan: s/p debridement. will require BKA Vascular surgery following. On Zosyn and vancomycin. (5) Metabolic bone disease ICD Codes: E88.9 - Metabolic disorder, unspecified; M90.80 - Osteopathy in diseases classified elsewhere, unspecified site Status: Acute Plan: monitor phosphorus intermittently. She is on phosphate binder therapy. (6) Hypertension ICD Codes: I10 - Hypertension Status: Chronic Plan: monitor BP, continue medications. (7) Diabetes mellitus ICD Codes: E11.9 - Type 2 diabetes mellitus without complications Status: Chronic Plan: Continue insulin coverage while hospitalized, maintain blood glucose between 140 and 180. Use D10 @ 20 while NPO. Plan p (Teresa Parekh) Plan patient was seen and examined. s/p left hemicolectomy. Reevaluate need for antibiotics: she is on Vancomycin and Zosyn since admission. (Dao Greene MD) Problem Qualifiers (1) GI bleed: Qualified Codes: K57.91 - Diverticulosis of intestine, part unspecified, without perforation or abscess with bleeding (2) Foot ulcer, right: Qualified Codes: L97.512 - Non-pressure chronic ulcer of other part of right foot with fat layer exposed (3) Hypertension: Qualified Codes: I10 - Essential (primary) hypertension (4) Diabetes mellitus: Qualified Codes: E11.42 - Type 2 diabetes mellitus with diabetic polyneuropathy ; Z79.4 - planogrammer (current) use of insulin Teresa Parekh Sep 19, 2017 12:15 Dao Greene MD Sep 19, 2017 16:51
--- NOTE | 2017-09-19 13:02 | MP ---
cc: FLAQUITA SHARP MD DATE OF SURGERY: 09/18/2017 PREOPERATIVE DIAGNOSIS Colonic bleeding, anemia, renal failure. POSTOPERATIVE DIAGNOSIS Colonic bleeding, anemia, renal failure. PROCEDURE PERFORMED Extended left colectomy and low anterior anastomosis, takedown of splenic flexure. SURGEON Dr. Sharp. ANESTHESIA General. ESTIMATED BLOOD LOSS 100 ccs. PROCEDURE The patient was prepped and draped in the usual fashion and mid abdominal incision was made. The abdomen was entered and explored in quadrants. Liver appears to be normal although, some dusky in color. Spleen is okay. The patient has normal stomach and small bowel was run from ligament of Treitz. The ileocecal valve appears to be normal. The patient has a large boggy uterus with myomas but no specifically very hard areas that would be suspicious. The colon has extensive diverticular disease in the sigmoid and descending colon area and becomes normal in the transverse colon. Bookwalter retractors are now positioned and then the colon is retracted medially by the sigmoid and then the white line of Toldt is incised up and down, all the way down about 2 inches above peritoneal reflection. The white line of Toldt is followed up to the splenic flexure, then the splenic flexure is taken down with sharp dissection and blunt dissection getting to the omentum. The omentum is clamped, divided and ligated and the transverse colon is freed up. A point is now selected in the transverse colon way to the right to transect the bowel and this allows also very easy anastomosis down in the pelvis. Transverse colon is cleaned up, point is chosen and then the mesocolon starting from the sigmoid up is clamped, divided and ligated with 0-Silk ties and 0-Silk pop-off [id number] stitches. This is carried out proximally. The left ureter is carefully preserved. Once we got to the transverse colon the point of transection is chosen and just distal to it an incision is made in the intestine and then 28 millimeter EA staple anvil is inserted. Now the CANDY stapler is fired proximal to this opening in the colon and then colon is amputated here by. Specimen is now removed. Anvil is now allowed to poke through anterior to the staple line out, obviating now the need for pursestring. Surgeon now goes down to the pelvic area and from the rectum first, the rectum is irrigated with saline and cleaned out. The patient has pretty good clean out. There is still some old blood left there and once this was washed out sizers are placed and this was followed by the EA stapler which is then perforated at the staple line of the previously fired contour stapler. EA is now poked through and then connected to the anvil and a nice anastomosis is created. The donuts are checked for integrity. The anastomosis is now checked for integrity by insufflating air into it while keeping some fluid in the abdomen and pinching of the bowel. There is no leak. Nonetheless, a second layer of 0-Silk pop-offs is placed circumferentially and then also a few are placed to attach the anastomosis and the bowel to the sacral area so there would not be an internal hernia forming there. The abdomen is now irrigated with copious amounts of saline. Meticulous hemostasis is obtained and a 10 flat NOVA is placed in the pelvis. Incision is closed with #1 PDS loop and melissa. The patient tolerated the procedure well. Flaquita SAHU /7:39 PM /12:41 PM MONTEZ
[2017-09-19] MEDS: MORPHINE SULFATE 4 MG/ML INJ IV PUSH PRN ×2 (13:14→20:36)
--- NOTE | 2017-09-19 13:48 | PD.CAR.PN ---
CVT Progress Note Subjective/Hospital Course: Consult received Full dictation to follow For podiatry debridement Saturday and after that we will evaluate as far as salvageability of the leg is concerned Thanks Jean Paul 09/09/17 Patient with severe peripheral vascular disease gangrene of the right heel and osteomyelitis Every effort has been made by podiatry to salvage the foot and there are no other options left I agree with Dr. Galvez and Dr. Nadir Mello, and the only option at this time is right below-knee amputation Patient scheduled for right below-knee amputation with second and third opinion of additional 2 physicians Today's BKA has to be canceled due to the fact that patient's hemoglobin is 6.7 and due to logistical reasons transfusion of 2 units PRBC was not not administered prior to taking patient to the operating room this afternoon. Considering this is purely elective procedure I believe it's safe and appropriate to transfuse this patient in peace and do surgery tomorrow Patient scheduled for right BKA tomorrow 09/10/17 Patient was initially rescheduled for surgery today however she had some bright red blood per rectum and surgery is now canceled GI bleeding takes precedence and patient will need a full workup on this issue before proceed with amputation If patient needs some gastrointestinal surgery or general surgical intervention I will be available and we'll continue to follow patient Once everything resolved we will reconsider the amputation issue 09/11/17 Hemoglobin again down to 6.9 g/dL as a result of GI bleeding Completely agree with medicine and gastroenterology approach and plan No clear site of bleeding and identified and this is often a problem in patients who have multiple pathologies, all of which could be attributing to the bleeding process including diverticular disease AVM malformations and such Most of these bleeds will see his on the round and only about 10-15% of patients will require actual surgery for the same. Precise identification of the bleeding site being the right or the left colon is imperative should patient require surgery for continuous bleeding, for knowing in their and having to do subtotal colectomy on this lady would double the mortality as opposed only removing the right or the left colon. Sometimes however we cannot identify the bleeding site and then subtotal colectomy remains the only option. Will continue follow patient which you and if patient require surgery I will be available to preform it. As far as the leg is concerned, amputation is now a secondary issue and will not be undertaken until the above issues are resolved and treated satisfactorily. 09/12/17 Patient currently stabilized from GI bleeding Hemoglobin is now stable Angiogram is negative for bleeding but that the requires at least the bleeding of 3 cc/minute to show up On the other hand no clear scan does reveal bleeding which in this case looks like transverse colon Majority of these bleeds will stop on the round with good supportive therapy and patient doesn't need further interventions On the other hand if the patient gets up to 6-8 units of blood transfusions than the risk of surgery is by far exceeded by the risk of repeated transfusions and then surgery is indicated We'll see how patient does and recommend as we go along Discussed with Dr Mi 09/13/17 Patient with diverticulosis and the likely transverse to left colon bleed Agree with Dr. Mi as to the site of bleeding Abdomen is soft active bowel sounds the patient appears to be stable She dropped her hemoglobin bit yesterday he received 1 more units of blood and now it's up again Patient is now 5 units PRBC later and the another unit or 2 and then we'll have to take patient to the operating room for extended left colectomy if this doesn't stop because then the risk of bleeding and problems with transfusion exceeds the risk of surgery We'll see the patient does through the weekend but she is close to needing surgery at this time 09/14/17 Patient doing okay now Abdomen is soft active bowel sounds Hemoglobin appears to be relatively stable between 9 and 8 g/dL and holding. As noted above patient has received 5 units of PRBCs up to now and once we get to point of 67 or 8 units and patient continues to lose blood, then the risk of surgery is less than the risk of repeated transfusions and at that point patient would need left colectomy. Discussed with Dr. Mi and we agree on being very conservative in this situation and doing everything to avoid surgery in this lady. Will continue to follow 09/15/17 Patient had some bleeding last night and hemoglobin was repeated to come back at 10 g/dL This was clearly old blood yet this morning hemoglobin is 8.1 g/dL some believe that former number was probably incorrect last night Patient doesn't appear to have active bleeding If she requires more blood and starts bleeding again should definitely go to the operating room from extended left colectomy At this point would advance to the diet and allow patient to eat and see how she does There is a high likelihood that patient will require left colon resection which of course is a procedure associated with some degree morbidity in this elderly lady. 09/16/17 Patient doing well at this time Abdomen soft active bowel sounds tolerates diet No more fresh or maroon blood per rectum Hemoglobin remains relatively stable between 7.5 and 8 g/dL Continue observation if patient drops hemoglobin 1 more time and starts bleeding she'll be going to the operating room for extended left colectomy 09/17/2017 Patient still passing clots some of the same I liquid blood and some more formed some maroon than some fresh At this point case discussed at length with medical attending and decision is made that this patient eventually clearly need surgery. I have discussed this with patient at length and she is reluctant to have surgery if she needs a colostomy, which is very unlikely but not completely excluded Patient will be cleaned out with GoLYTELY prep and is scheduled tomorrow for extended left colectomy with primary anastomosis 09/19/2017 Patient is status post extended left colectomy with low anterior anastomosis yesterday Incision clean and dry and abdomen is soft with few bowel sounds Of course no gas yet keep n.p.o. but for medications Patient can be out of bed with a binder Continue current care Patient can transfer to floor from my point any time Objective: Vital Signs Date Time Temp Pulse Resp B/P (MAP) Pulse Ox O2 Delivery O2 Flow Rate FiO2 09/19/17 12:00 98.8 87 24 150/67 (94) 100 09/19/17 08:14 100 Nasal Cannula 2.00 09/19/17 08:00 98.8 86 20 141/39 (73) 100 09/19/17 07:00 100 Nasal Cannula 4.00 09/19/17 06:00 90 09/19/17 04:15 28 09/19/17 04:00 98.5 88 25 154/40 (78) 100 09/19/17 04:00 88 09/19/17 02:00 88 09/19/17 00:21 98 Nasal Cannula 4.00 09/19/17 00:00 98.0 90 18 134/43 (73) 100 09/19/17 00:00 90 09/18/17 22:00 85 09/18/17 21:15 100 Nasal Cannula 4.00 09/18/17 21:15 97.5 84 30 178/42 (87) 100 Automatic Cuff 09/18/17 21:15 84 09/18/17 20:45 97.5 81 20 148/66 (93) 100 Nasal Cannula 4 09/18/17 20:30 80 18 153/67 (95) 100 Nasal Cannula 4 09/18/17 20:15 80 20 158/68 (98) 100 Nasal Cannula 4 09/18/17 20:00 77 22 158/68 (98) 100 Nasal Cannula 4 09/18/17 19:45 78 16 149/67 (94) 100 Nasal Cannula 4 09/18/17 19:30 77 22 159/68 (98) 100 Nasal Cannula 4 09/18/17 19:15 73 24 131/57 (81) 100 Nasal Cannula 4 09/18/17 19:08 97.4 73 20 144/64 (90) 100 Nasal Cannula 4 09/18/17 15:32 Nasal Cannula 2 Labs: Laboratory Tests Test 09/19/17 03:15 White Blood Count 16.9 TH/MM3 (4.0-11.0) Red Blood Count 2.93 MIL/MM3 (4.00-5.30) Hemoglobin 8.2 GM/DL (11.6-15.3) Hematocrit 24.9 % (35.0-46.0) Mean Corpuscular Volume 84.9 FL (80.0-100.0) Mean Corpuscular Hemoglobin 28.0 PG (27.0-34.0) Mean Corpuscular Hemoglobin Concent 33.0 % (32.0-36.0) Red Cell Distribution Width 17.4 % (11.6-17.2) Platelet Count 284 TH/MM3 (150-450) Mean Platelet Volume 8.6 FL (7.0-11.0) Neutrophils (%) (Auto) 87.7 % (16.0-70.0) Lymphocytes (%) (Auto) 3.1 % (9.0-44.0) Monocytes (%) (Auto) 7.2 % (0.0-8.0) Eosinophils (%) (Auto) 0.7 % (0.0-4.0) Basophils (%) (Auto) 1.3 % (0.0-2.0) Neutrophils # (Auto) 14.8 TH/MM3 (1.8-7.7) Lymphocytes # (Auto) 0.5 TH/MM3 (1.0-4.8) Monocytes # (Auto) 1.2 TH/MM3 (0-0.9) Eosinophils # (Auto) 0.1 TH/MM3 (0-0.4) Basophils # (Auto) 0.2 TH/MM3 (0-0.2) CBC Comment AUTO DIFF Differential Total Cells Counted 100 Neutrophils % (Manual) 94 % (16-70) Band Neutrophils % 2 % (0-6) Lymphocytes % 1 % (9-44) Monocytes % 1 % (0-8) Neutrophils # (Manual) 16.6 TH/MM3 (1.8-7.7) Metamyelocytes 2 % (0-1) Differential Comment FINAL DIFF MANUAL Platelet Estimate NORMAL (NORMAL) Platelet Morphology Comment NORMAL (NORMAL) Ovalocytes 1+ (NORMAL) Blood Urea Nitrogen 19 MG/DL (7-18) Creatinine 4.69 MG/DL (0.50-1.00) Random Glucose 71 MG/DL (74-106) Total Protein 6.0 GM/DL (6.4-8.2) Albumin 1.7 GM/DL (3.4-5.0) Calcium Level 7.8 MG/DL (8.5-10.1) Alkaline Phosphatase 93 U/L (45-117) Aspartate Amino Transf (AST/SGOT) 17 U/L (15-37) Alanine Aminotransferase (ALT/SGPT) LESS THAN 6 U/L (10-53) Total Bilirubin 0.4 MG/DL (0.2-1.0) Sodium Level 142 MEQ/L (136-145) Potassium Level 4.0 MEQ/L (3.5-5.1) Chloride Level 101 MEQ/L (98-107) Carbon Dioxide Level 33.3 MEQ/L (21.0-32.0) Anion Gap 8 MEQ/L (5-15) Estimat Glomerular Filtration Rate 11 ML/MIN (>89) Result Diagram: 09/19/1731409/19/17314 Amalia De La Cruz MD Sep 19, 2017 13:48
[2017-09-19] MEDS: SODIUM CHLOR 0.9% 1000 ML INJ 1,000 ML IV SCH ×2 (14:00→22:49)
[2017-09-19] MEDS: DEXTROSE 50% IN WATER 50 ML VIAL(D50) IV PUSH PRN (17:05)
[2017-09-19 18:50] LABS: HEMATOCRIT 23.9 % (35.0-46.0); HEMOGLOBIN 7.8 GM/DL (11.6-15.3)
[2017-09-19] MEDS: MIRTAZAPINE 15 MG TAB PO SCH (20:36)
[2017-09-19] MEDS: hydrOXYzine HCL 25 MG TAB PO SCH (20:36)
[2017-09-19] MEDS: ZOLPIDEM TARTRATE 5 MG TAB PO PRN (20:36)
[2017-09-20] VITALS (12 sets, daily range): BP systolic 141–173; BP diastolic 34–75; PULSE 80–87; RESP 15–18; TEMP 98.2–99; O2SAT 93–100
[2017-09-20] MEDS: MORPHINE SULFATE 4 MG/ML INJ IV PUSH PRN ×3 (03:16→18:58)
[2017-09-20 03:40] LABS: BASOPHIL # 0.2 TH/MM3 (0-0.2); BASOPHIL % 1.1 % (0.0-2.0); EOSINOPHIL # 0.7 TH/MM3 (0-0.4); EOSINOPHIL % 4.3 % (0.0-4.0); HEMATOCRIT 22.2 % (35.0-46.0); HEMOGLOBIN 7.5 GM/DL (11.6-15.3); LYMPH % 7.5 % (9.0-44.0); LYMPHOCYTE # 1.1 TH/MM3 (1.0-4.8); MEAN CELL VOLUME 86.2 FL (80.0-100.0); MEAN CORPUSCULAR HEMOGLOBIN 29.2 PG (27.0-34.0); MEAN CORPUSCULAR HGB CONC 33.9 % (32.0-36.0); MEAN PLATELET VOLUME 8.8 FL (7.0-11.0); MONO % 8.5 % (0.0-8.0); MONOCYTE # 1.3 TH/MM3 (0-0.9); NEUT % 78.6 % (16.0-70.0); PLATELET COUNT 296 TH/MM3 (150-450); RED BLOOD COUNT 2.58 MIL/MM3 (4.00-5.30); RED CELL DISTRIBUTION WIDTH 18.1 % (11.6-17.2); WHITE BLOOD COUNT 15.3 TH/MM3 (4.0-11.0)
[2017-09-20 04:24] LABS: ALBUMIN 1.6 GM/DL (3.4-5.0); ALKALINE PHOSPHATASE 86 U/L (45-117); ALT (GPT) LESS THAN 6 U/L (10-53); AST (GOT) 17 U/L (15-37); BLOOD UREA NITROGEN 29 MG/DL (7-18); CALCIUM 7.8 MG/DL (8.5-10.1); CHLORIDE 103 MEQ/L (98-107); CREATININE 5.98 MG/DL (0.50-1.00); GLOMERULAR FILTRATION RATE 8 ML/MIN (>89); GLUCOSE,RANDOM 52 MG/DL (74-106); PHOSPHORUS 7.4 MG/DL (2.5-4.9); SODIUM (NA) 142 MEQ/L (136-145); TOTAL BILIRUBIN ADULT 0.4 MG/DL (0.2-1.0); TOTAL PROTEIN 5.9 GM/DL (6.4-8.2)
[2017-09-20] MEDS: PIPERACIL-TAZO 2.25 GM PREMIX 50 ML IV SCH ×3 (06:22→22:57)
[2017-09-20] MEDS: LEVOTHYROXINE SODIUM 75 MCG TAB PO SCH (06:22)
[2017-09-20] MEDS: INSULIN ASPART SUPPLEMENTAL SCALE SQ SCH ×4 (08:00→21:00)
[2017-09-20] MEDS: SEVELAMER CARBONATE 800 MG TAB PO SCH ×3 (08:00→17:00)
[2017-09-20] MEDS: DEXTROSE 50% IN WATER 50 ML VIAL(D50) IV PUSH PRN (08:20)
[2017-09-20] MEDS: DOCUSATE SODIUM 50 MG/SENNA 8.6 MG TAB PO SCH ×2 (09:00→21:32)
[2017-09-20] MEDS: hydrALAZINE HCL 25 MG TAB PO SCH ×2 (09:00→21:32)
[2017-09-20] MEDS: SODIUM CHLORIDE 0.9% FLUSH 10 ML FLUSH IV FLUSH SCH ×2 (09:00→21:32)
[2017-09-20] MEDS: PANTOPRAZOLE SODIUM 40 MG VIAL IV PUSH SCH ×2 (09:00→21:32)
[2017-09-20] MEDS: VITAMIN B CMPLX/VITC/FOLIC AC CAP PO SCH (09:00)
--- NOTE | 2017-09-20 09:55 | HHI.FPPN ---
Subjective Remarks Still having 6/10 pain. SHe is uncomfortable from not being able to sit up. She also is having a dry mouth, which causes her to cough and then this worsens her abdominal pain. She denies passing gas or any blood from her rectum. She is AAOx3. Objective Vitals Vital Signs Date Time Temp Pulse Resp B/P (MAP) Pulse Ox O2 Delivery O2 Flow Rate FiO2 09/20/17 08:12 99 Nasal Cannula 2.00 09/20/17 06:00 85 09/20/17 04:00 85 09/20/17 04:00 98.7 85 18 141/67 (91) 98 09/20/17 00:00 98.7 87 18 141/34 (69) 93 09/20/17 00:00 85 09/19/17 22:00 85 09/19/17 21:51 99 Nasal Cannula 2.00 09/19/17 20:00 85 09/19/17 20:00 98.4 86 18 167/74 (105) 100 09/19/17 19:00 98 Nasal Cannula 2.00 09/19/17 16:00 98.7 84 18 154/69 (97) 99 09/19/17 12:00 98.8 87 24 150/67 (94) 100 I/O 09/19/17 09/19/17 09/19/17 09/20/17 09/20/17 09/20/17 07:00 15:00 23:00 07:00 15:00 23:00 Intake Total 60 ml 150 ml 400 ml Output Total 160 ml 110 ml 130 ml Balance -100 ml 150 ml -110 ml 270 ml Intake Oral 60 ml IV Total 150 ml Packed Cells 400 ml Output Urine Total 0 ml 0 ml Drainage Total 160 ml 110 ml 130 ml Result Diagram: 09/20/17 0322 09/20/17 0322 Objective Remarks GEN: Well-developed, well-nourished patient. No acute distress. CV: Regular rate and rhythm without obvious murmurs LUNGS: Coarse breath sounds with rhonchi bilaterally, prolonged expiratory phase GI: nondistended, soft, TTP throughout, abdominal binder in place. EXT: No edema, chronic venous stasis changes, present. No calf tenderness. Right foot wrapped in Sarath bandage. Clean and dry. NEURO/PSYCH: Awake, alert. Appropriate insight and judgment. Normal speech A/P Assessment and Plan 72 y/o with chronic history of HTN, DM, ESRD, chronic foot wounds presents from podiatry clinic for evaluation. Admitted for osteomyelitis with debridement and possible amputation. Developed a GI bleed during hospitalization. Repeat colonoscopy was performed on 09/13/2017 with no bleeding source identified. Hemicolectomy performed 09/18/2017. Discharge Planning Undetermined at this time, pending definitive treatment of osteomyelitis. Problem List: (1) GI bleed ICD Codes: K92.2 - Gastrointestinal hemorrhage, unspecified Status: Acute Plan: Repeat colonoscopy on 09/13/2017. Results as follows: 1. Moderate diverticulosis was noted in the sigmoid colon 2. Blood throughout the colon but no active site of bleeding seen. suspect diverticular bleed. 3. A sessile polyp ranging between 3-5mm in size was found in the sigmoid colon ; polypectomy was performed with cold forceps Hemoglobin 6.9 on 09/18/2017 - given another unit of PRBCs on 09/18/17 in AM prior to surgery. PLAN: S/P hemicolectomy with surgical anastomosis. H&H stable x 24 hours. Continue IV Protonix 40 mg IV BID. Advance diet at discretion of surgery. Pain control with IV Morphine 4 mg q 4 pain 1-10, and 2 mg IV for breakthrough q 3 hours. Titrate as tolerated and to pain level. Monitor vitals. (2) Hypoglycemia ICD Codes: E16.2 - Hypoglycemia, unspecified Plan: BG of 40 on 09/12/2017 - Corrected with hypoglycemia protocol. More recently 52, on 09/20/2017. Given another AMP of D50W, and corrected to 213 mg/ dL. Patient is NPO. Continue with Accu-Cheks at 0800 hrs., 1200 hrs., 1700 hrs., and 2100 hrs. (3) Osteomyelitis of ankle or foot, right, acute ICD Codes: M86.171 - Other acute osteomyelitis, right ankle and foot Status: Acute Plan: Patient with history of chronic right foot wounds that was currently being managed by podiatry (Dr. Bentley). Was hospitalized in July 2017 and underwent surgical exploration and had a wound VAC placed at that time. Admitted per the recommendation of podiatry due to worsening ulcer/wounds. MRI significant for osteomyelitis and multiple bones of the foot and ankle. -Wound cultures showing Corynebacterium sp. -Blood cultures NGTD -Will consult ID for assistance with antibiotic selection and duration. Podiatry consulted: appreciate recommendations * 09/07/17: Debridement of ulcers on right foot/ankle 3 * Plan on 09/[address] Reaves - postponed secondary to acute gastrointestinal bleeding. Focus is on GI bleed for now per Dr. Reaves Vascular consulted: appreciate recommendations * Pt with severe vascular changes, diabetic neuropathy Imaging: * MRI foot: Osteomyelitis develop at the fifth metatarsal base. Slight worsening osteomyelitis of the great toe head of the proximal phalanx and distal half of the distal phalanx. Worsening osteomyelitis of the fibular sesamoid. The superficial osteomyelitis of the tibial sesamoid not significantly changed. No drainable abscess. * MRI ankle: Severe soft tissue ulceration laterally and posteromedially of the ankle/hindfoot. Fluid collection in the posterior lateral gutter, potentially an abscess. Osteomyelitis of the calcaneus. Osteomyelitis of the distal fibula possible osteomyelitis focally of the posterior medial aspect of the talus. * Foot x-ray: Osteopenia, no acute bony abnormality. Medications * Vancomycin (09/06- per nephrology dosing/titration * Zosyn (09/07- (4) ESRD (end stage renal disease) on dialysis ICD Codes: N18.6 - End stage renal failure on dialysis; Z99.2 - Dependence on renal dialysis Status: Chronic Plan: Dialysis Saturday, Saturday, Saturday typically. Sees Dr. Buchanan, advanced manufacturing associate outpatient. No urine output Nephrology consulted: Appreciate recommendations * Resume dialysis 3x/wk * Monitor phosphorus intermittently, use binders as appropriate. * Fluid restriction (5) Diabetes mellitus ICD Codes: E11.9 - Type 2 diabetes mellitus without complications Status: Chronic Plan: History of long-term diabetes on insulin at home -Sliding scale insulin -Monitor accuchecks (6) Hypertension ICD Codes: I10 - Hypertension Status: Chronic Plan: BP better controlled with addition of hydralazine 25 mg BID. Cont home amlodipine. (7) Hypothyroidism ICD Codes: E03.9 - Hypothyroidism Status: Chronic Plan: Continue home Synthroid. (8) FEN Status: Acute Plan: Fluids: NS at 60 ml/hr, on dialysis. As determined by surgeon. No signs of fluid overload on exam this AM. Electrolytes: monitor, replace PRN. Nutrition: As guided by GI DVT ppx: hold chemoppx due to surgery, SCDs WDW Dr. Fieldattlexy Problem Qualifiers (1) GI bleed: Qualified Codes: K57.91 - Diverticulosis of intestine, part unspecified, without perforation or abscess with bleeding (2) Diabetes mellitus: Qualified Codes: E11.42 - Type 2 diabetes mellitus with diabetic polyneuropathy ; Z79.4 - bed bug exterminator (current) use of insulin (3) Hypertension: Qualified Codes: I10 - Essential (primary) hypertension (4) Hypothyroidism: Qualified Codes: E03.9 - Hypothyroidism, unspecified Jesus Mendiola MD, R3 Sep 20, 2017 09:55
--- NOTE | 2017-09-20 10:29 | PD.CAR.PN ---
CVT Progress Note Subjective/Hospital Course: Consult received Full dictation to follow For podiatry debridement Saturday and after that we will evaluate as far as salvageability of the leg is concerned Thanks Jean Paul 09/09/17 Patient with severe peripheral vascular disease gangrene of the right heel and osteomyelitis Every effort has been made by podiatry to salvage the foot and there are no other options left I agree with Dr. Galvez and Dr. Nadir Mello, and the only option at this time is right below-knee amputation Patient scheduled for right below-knee amputation with second and third opinion of additional 2 physicians Today's BKA has to be canceled due to the fact that patient's hemoglobin is 6.7 and due to logistical reasons transfusion of 2 units PRBC was not not administered prior to taking patient to the operating room this afternoon. Considering this is purely elective procedure I believe it's safe and appropriate to transfuse this patient in peace and do surgery tomorrow Patient scheduled for right BKA tomorrow 09/10/17 Patient was initially rescheduled for surgery today however she had some bright red blood per rectum and surgery is now canceled GI bleeding takes precedence and patient will need a full workup on this issue before proceed with amputation If patient needs some gastrointestinal surgery or general surgical intervention I will be available and we'll continue to follow patient Once everything resolved we will reconsider the amputation issue 09/11/17 Hemoglobin again down to 6.9 g/dL as a result of GI bleeding Completely agree with medicine and gastroenterology approach and plan No clear site of bleeding and identified and this is often a problem in patients who have multiple pathologies, all of which could be attributing to the bleeding process including diverticular disease AVM malformations and such Most of these bleeds will see his on the round and only about 10-15% of patients will require actual surgery for the same. Precise identification of the bleeding site being the right or the left colon is imperative should patient require surgery for continuous bleeding, for knowing in their and having to do subtotal colectomy on this lady would double the mortality as opposed only removing the right or the left colon. Sometimes however we cannot identify the bleeding site and then subtotal colectomy remains the only option. Will continue follow patient which you and if patient require surgery I will be available to preform it. As far as the leg is concerned, amputation is now a secondary issue and will not be undertaken until the above issues are resolved and treated satisfactorily. 09/12/17 Patient currently stabilized from GI bleeding Hemoglobin is now stable Angiogram is negative for bleeding but that the requires at least the bleeding of 3 cc/minute to show up On the other hand no clear scan does reveal bleeding which in this case looks like transverse colon Majority of these bleeds will stop on the round with good supportive therapy and patient doesn't need further interventions On the other hand if the patient gets up to 6-8 units of blood transfusions than the risk of surgery is by far exceeded by the risk of repeated transfusions and then surgery is indicated We'll see how patient does and recommend as we go along Discussed with Dr Mi 09/13/17 Patient with diverticulosis and the likely transverse to left colon bleed Agree with Dr. Mi as to the site of bleeding Abdomen is soft active bowel sounds the patient appears to be stable She dropped her hemoglobin bit yesterday he received 1 more units of blood and now it's up again Patient is now 5 units PRBC later and the another unit or 2 and then we'll have to take patient to the operating room for extended left colectomy if this doesn't stop because then the risk of bleeding and problems with transfusion exceeds the risk of surgery We'll see the patient does through the weekend but she is close to needing surgery at this time 09/14/17 Patient doing okay now Abdomen is soft active bowel sounds Hemoglobin appears to be relatively stable between 9 and 8 g/dL and holding. As noted above patient has received 5 units of PRBCs up to now and once we get to point of 67 or 8 units and patient continues to lose blood, then the risk of surgery is less than the risk of repeated transfusions and at that point patient would need left colectomy. Discussed with Dr. iM and we agree on being very conservative in this situation and doing everything to avoid surgery in this lady. Will continue to follow 09/15/17 Patient had some bleeding last night and hemoglobin was repeated to come back at 10 g/dL This was clearly old blood yet this morning hemoglobin is 8.1 g/dL some believe that former number was probably incorrect last night Patient doesn't appear to have active bleeding If she requires more blood and starts bleeding again should definitely go to the operating room from extended left colectomy At this point would advance to the diet and allow patient to eat and see how she does There is a high likelihood that patient will require left colon resection which of course is a procedure associated with some degree morbidity in this elderly lady. 09/16/17 Patient doing well at this time Abdomen soft active bowel sounds tolerates diet No more fresh or maroon blood per rectum Hemoglobin remains relatively stable between 7.5 and 8 g/dL Continue observation if patient drops hemoglobin 1 more time and starts bleeding she'll be going to the operating room for extended left colectomy 09/17/2017 Patient still passing clots some of the same I liquid blood and some more formed some maroon than some fresh At this point case discussed at length with medical attending and decision is made that this patient eventually clearly need surgery. I have discussed this with patient at length and she is reluctant to have surgery if she needs a colostomy, which is very unlikely but not completely excluded Patient will be cleaned out with GoLYTELY prep and is scheduled tomorrow for extended left colectomy with primary anastomosis 09/19/2017 Patient is status post extended left colectomy with low anterior anastomosis yesterday Incision clean and dry and abdomen is soft with few bowel sounds Of course no gas yet keep n.p.o. but for medications Patient can be out of bed with a binder Continue current care Patient can transfer to floor from my point any time 09/20/2017 Patient is still in ICU but as above noted yesterday from surgical point patient can transfer to floor anytime Perhaps there were no beds available Patient is doing well Abdomen is soft hypoactive bowel sounds incision is clean and dry Patient should get aggressive physical therapy to prevent her from being bedridden in the future We will advance to full liquids and from there as tolerated to diet It should be noted that this patient will still require below-knee amputation as she was originally the consult for the same However I do not want to put 2 surgeries to close together and I would allow patient to recover from this first Next surgery should probably not be done before middle or end of next week Objective: Vital Signs Date Time Temp Pulse Resp B/P (MAP) Pulse Ox O2 Delivery O2 Flow Rate FiO2 09/20/17 08:12 99 Nasal Cannula 2.00 09/20/17 06:00 85 09/20/17 04:00 85 09/20/17 04:00 98.7 85 18 141/67 (91) 98 09/20/17 00:00 98.7 87 18 141/34 (69) 93 09/20/17 00:00 85 09/19/17 22:00 85 09/19/17 21:51 99 Nasal Cannula 2.00 09/19/17 20:00 85 09/19/17 20:00 98.4 86 18 167/74 (105) 100 09/19/17 19:00 98 Nasal Cannula 2.00 09/19/17 16:00 98.7 84 18 154/69 (97) 99 09/19/17 12:00 98.8 87 24 150/67 (94) 100 Labs: Laboratory Tests Test 09/20/17 03:22 White Blood Count 15.3 TH/MM3 (4.0-11.0) Red Blood Count 2.58 MIL/MM3 (4.00-5.30) Hemoglobin 7.5 GM/DL (11.6-15.3) Hematocrit 22.2 % (35.0-46.0) Mean Corpuscular Volume 86.2 FL (80.0-100.0) Mean Corpuscular Hemoglobin 29.2 PG (27.0-34.0) Mean Corpuscular Hemoglobin Concent 33.9 % (32.0-36.0) Red Cell Distribution Width 18.1 % (11.6-17.2) Platelet Count 296 TH/MM3 (150-450) Mean Platelet Volume 8.8 FL (7.0-11.0) Neutrophils (%) (Auto) 78.6 % (16.0-70.0) Lymphocytes (%) (Auto) 7.5 % (9.0-44.0) Monocytes (%) (Auto) 8.5 % (0.0-8.0) Eosinophils (%) (Auto) 4.3 % (0.0-4.0) Basophils (%) (Auto) 1.1 % (0.0-2.0) Neutrophils # (Auto) 12.0 TH/MM3 (1.8-7.7) Lymphocytes # (Auto) 1.1 TH/MM3 (1.0-4.8) Monocytes # (Auto) 1.3 TH/MM3 (0-0.9) Eosinophils # (Auto) 0.7 TH/MM3 (0-0.4) Basophils # (Auto) 0.2 TH/MM3 (0-0.2) CBC Comment AUTO DIFF Differential Comment AUTO DIFF CONFIRMED Blood Urea Nitrogen 29 MG/DL (7-18) Creatinine 5.98 MG/DL (0.50-1.00) Random Glucose 52 MG/DL (74-106) Total Protein 5.9 GM/DL (6.4-8.2) Albumin 1.6 GM/DL (3.4-5.0) Calcium Level 7.8 MG/DL (8.5-10.1) Phosphorus Level 7.4 MG/DL (2.5-4.9) Alkaline Phosphatase 86 U/L (45-117) Aspartate Amino Transf (AST/SGOT) 17 U/L (15-37) Alanine Aminotransferase (ALT/SGPT) LESS THAN 6 U/L (10-53) Total Bilirubin 0.4 MG/DL (0.2-1.0) Sodium Level 142 MEQ/L (136-145) Potassium Level 4.4 MEQ/L (3.5-5.1) Chloride Level 103 MEQ/L (98-107) Carbon Dioxide Level 30.0 MEQ/L (21.0-32.0) Anion Gap 9 MEQ/L (5-15) Estimat Glomerular Filtration Rate 8 ML/MIN (>89) Result Diagram: 09/20/17 03209/20/17 032 Amalia De La Cruz MD Sep 20, 2017 10:29
[2017-09-20] MEDS: EPOETIN ALFA 10,000 UNITS/ML VIAL IV PUSH PRN (10:57)
[2017-09-20] MEDS: GELATIN 12 MM/7 MM FOAM TOP PRN (10:57)
--- NOTE | 2017-09-20 10:59 | HHI.NPPN ---
Subjective General Problems: Anemia Renal Failure: Chronic, End Stage Renal Disease Interval History Seen during dialysis. She is having abdominal pain. No BM yet, not passing gas. Downgraded today. (Teresa Parekh) Review of Systems General Constitutional: Fatigue (Teresa Parekh) Gastrointestinal Gastrointestinal: Abdominal Pain, Blood/Tarry Stools (Teresa Parekh) Musculoskeletal MS: Pain/Stiffness (Teresa Parekh) Skin Skin: Ulcers (Teresa Parekh) Psych Psych: Depression (Teresa Parekh) Objective Data Data Vital Signs Date Time Temp Pulse Resp B/P (MAP) Pulse Ox O2 Delivery O2 Flow Rate FiO2 09/20/17 08:15 98 Nasal Cannula 3.00 09/20/17 08:12 99 Nasal Cannula 2.00 09/20/17 08:00 82 09/20/17 08:00 98.7 82 16 148/66 (93) 99 09/20/17 07:03 81 09/20/17 06:00 85 09/20/17 04:00 85 09/20/17 04:00 98.7 85 18 141/67 (91) 98 09/20/17 00:00 98.7 87 18 141/34 (69) 93 09/20/17 00:00 85 09/19/17 22:00 85 09/19/17 21:51 99 Nasal Cannula 2.00 09/19/17 20:00 85 09/19/17 20:00 98.4 86 18 167/74 (105) 100 09/19/17 19:00 98 Nasal Cannula 2.00 09/19/17 16:00 98.7 84 18 154/69 (97) 99 09/19/17 12:00 98.8 87 24 150/67 (94) 100 (Teresa Parekh) -: 09/20/17 0322 09/20/17 0322 Physical Exam General Appearance: Well Developed, No Acute Distress, Comfortable, Malnourished (Teresa Parekh) Eyes Eye Exam: Pupils Equal (Teresa Parekh) Throat Throat Exam: Oral Mucosa [place] & Moist (Teresa Parekh) Neck Neck Exam: Neck Supple (Teresa Parekh) Pulmonary Resp Exam: Clear Bilaterally, Breath Sounds Equal (Teresa Parekh) Cardiology CV Exam: Regular, Normal Sinus Rhythm, Good Perfusion (Teresa Parekh) Gastrointestinal/Abdomen GI Exam: Soft, Positive Bowel Movement, Bowel Sounds Hypoactive GI Remarks Abdominal binder in place, hypoactive BS, tender to palpation (Treesa Parekh) Genitourinary Exam: Clear Urine (Teresa Parekh) Musculoskeletal MS Exam: Joints Intact, Normal Tone, Good Strength (Teresa Parekh) Integumentary Skin Exam: Warm, Dry Skin Remarks right foot ulcer, dressing in place. (Teresa Parekh) Extremeties Extremities Exam: No Edema Extremeties Remarks Left arm AVF + bruit/thrill (Teresa Parekh) Neurologic Neuro Exam: Alert, Awake, Oriented, Speech Clear, Moving All Extremities (Teresa Parekh) Psychiatric Psych Exam: Appropriate Responses (Teresa Parekh) Assessment/Plan Discussed Condition With: Patient Assessment Summary: Anemia of CKD, Hypertension, End Stage Renal Disease Problem List: (1) ESRD (end stage renal disease) on dialysis ICD Codes: N18.6 - End stage renal failure on dialysis; Z99.2 - Dependence on renal dialysis Status: Chronic Plan: Seen during bedside dialysis today on a 3K, 350 BFR, goal 2.5L UF Continue HD MWF Intermittently monitor renal profile. Continue current plan. Stop IVF currently infusing. Left arm AVF functions well. (2) GI bleed ICD Codes: K92.2 - Gastrointestinal hemorrhage, unspecified Status: Acute Plan: GI and general surgery following, s/p L hemicolectomy yesterday Follow H/H (3) Anemia ICD Codes: D64.9 - Anemia, unspecified Status: Acute Plan: Transfused 6 units since admission On Epogen with dialysis.Given venofer. (4) Foot ulcer, right ICD Codes: L97.519 - Non-pressure chronic ulcer of other part of right foot with unspecified severity Status: Acute Plan: s/p debridement. will require BKA Vascular surgery following. On Zosyn and vancomycin. (5) Metabolic bone disease ICD Codes: E88.9 - Metabolic disorder, unspecified; M90.80 - Osteopathy in diseases classified elsewhere, unspecified site Status: Acute Plan: monitor phosphorus intermittently. Resume phosphate binder therapy when diet advances. (6) Hypertension ICD Codes: I10 - Hypertension Status: Chronic Plan: monitor BP, continue medications. (7) Diabetes mellitus ICD Codes: E11.9 - Type 2 diabetes mellitus without complications Status: Chronic Plan: Continue insulin coverage while hospitalized, maintain blood glucose between 140 and 180. Use D10 @ 20 while NPO. Plan (Teresa Parekh) Problem List: (1) ESRD (end stage renal disease) on dialysis ICD Codes: N18.6 - End stage renal failure on dialysis; Z99.2 - Dependence on renal dialysis Status: Chronic Plan: Seen during bedside dialysis today on a 3K, 350 BFR, goal 2.5L UF Continue HD MWF Intermittently monitor renal profile. Continue current plan. Stop IVF currently infusing. Left arm AVF functions well. (2) GI bleed ICD Codes: K92.2 - Gastrointestinal hemorrhage, unspecified Status: Acute Plan: GI and general surgery following, s/p L hemicolectomy yesterday Follow H/H (3) Anemia ICD Codes: D64.9 - Anemia, unspecified Status: Acute Plan: Transfused 6 units since admission On Epogen with dialysis.Given venofer. (4) Foot ulcer, right ICD Codes: L97.519 - Non-pressure chronic ulcer of other part of right foot with unspecified severity Status: Acute Plan: s/p debridement. will require BKA Vascular surgery following. On Zosyn and vancomycin. (5) Metabolic bone disease ICD Codes: E88.9 - Metabolic disorder, unspecified; M90.80 - Osteopathy in diseases classified elsewhere, unspecified site Status: Acute Plan: monitor phosphorus intermittently. Resume phosphate binder therapy when diet advances. (6) Hypertension ICD Codes: I10 - Hypertension Status: Chronic Plan: monitor BP, continue medications. (7) Diabetes mellitus ICD Codes: E11.9 - Type 2 diabetes mellitus without complications Status: Chronic Plan: Continue insulin coverage while hospitalized, maintain blood glucose between 140 and 180. Use D10 @ 20 while NPO. Plan patient was seen and examined. Agree with above assessment and plan. (Dao Greene MD) Problem Qualifiers (1) GI bleed: Qualified Codes: K57.91 - Diverticulosis of intestine, part unspecified, without perforation or abscess with bleeding (2) Foot ulcer, right: Qualified Codes: L97.512 - Non-pressure chronic ulcer of other part of right foot with fat layer exposed (3) Hypertension: Qualified Codes: I10 - Essential (primary) hypertension (4) Diabetes mellitus: Qualified Codes: E11.42 - Type 2 diabetes mellitus with diabetic polyneuropathy ; Z79.4 - salvage determiner (current) use of insulin Teresa Parekh Sep 20, 2017 10:59 Dao Greene MD Sep 20, 2017 15:37
[2017-09-20] MEDS: ONDANSETRON HCL 4 MG/2 ML VIAL IVP PRN (12:04)
[2017-09-20] MEDS: hydrOXYzine HCL 25 MG TAB PO SCH (21:32)
[2017-09-20] MEDS: MIRTAZAPINE 15 MG TAB PO SCH (21:33)
[2017-09-20] MEDS: SODIUM CHLOR 0.9% 1000 ML INJ 1,000 ML IV SCH (21:43)
[2017-09-21 01:40] VITALS: BP 141/64; PULSE 78; RESP 18; TEMP 98; O2SAT 99
[2017-09-21 04:00] VITALS: BP 158/70; PULSE 80; RESP 18; TEMP 96.8; O2SAT 98
[2017-09-21] MEDS: LEVOTHYROXINE SODIUM 75 MCG TAB PO SCH (05:34)
[2017-09-21] MEDS: PIPERACIL-TAZO 2.25 GM PREMIX 50 ML IV SCH ×3 (05:35→22:42)
[2017-09-21 07:19] LABS: AUTOMATED NEUTROPHIL # 9.5 TH/MM3 (1.8-7.7); BASOPHIL # 0.1 TH/MM3 (0-0.2); BASOPHIL % 0.8 % (0.0-2.0); EOSINOPHIL # 0.7 TH/MM3 (0-0.4); EOSINOPHIL % 5.2 % (0.0-4.0); HEMATOCRIT 23.8 % (35.0-46.0); HEMOGLOBIN 7.8 GM/DL (11.6-15.3); LYMPH % 9.8 % (9.0-44.0); LYMPHOCYTE # 1.3 TH/MM3 (1.0-4.8); MEAN CELL VOLUME 87.3 FL (80.0-100.0); MEAN CORPUSCULAR HEMOGLOBIN 28.7 PG (27.0-34.0); MEAN CORPUSCULAR HGB CONC 32.9 % (32.0-36.0); MEAN PLATELET VOLUME 8.5 FL (7.0-11.0); MONO % 10.3 % (0.0-8.0); MONOCYTE # 1.3 TH/MM3 (0-0.9); NEUT % 73.9 % (16.0-70.0); RED BLOOD COUNT 2.72 MIL/MM3 (4.00-5.30); RED CELL DISTRIBUTION WIDTH 18.5 % (11.6-17.2); WHITE BLOOD COUNT 12.8 TH/MM3 (4.0-11.0)
[2017-09-21 07:20] LABS: PLATELET COUNT 275 TH/MM3 (150-450)
--- NOTE | 2017-09-21 07:50 | HHI.FPPN ---
Subjective Remarks The patient is sitting up in her chair, eating grits. Abdominal pain when coughing. Is interested in moving to the bedside chair, today. She reports that she had a bowel movement, but does not recall if it was bloody. Per nursing, she has not had a bowel movement. She denies any fevers or chills. She denies any shortness of breath, chest pain, or headaches. She did have dialysis yesterday 09/20/2017. Objective Vitals Vital Signs Date Time Temp Pulse Resp B/P (MAP) Pulse Ox O2 Delivery O2 Flow Rate FiO2 09/21/17 04:00 96.8 80 18 158/70 (99) 98 09/21/17 01:40 98.0 78 18 141/64 (89) 99 09/20/17 20:48 98.2 84 18 172/75 (107) 100 09/20/17 20:00 83 09/20/17 20:00 Nasal Cannula 2.00 09/20/17 19:03 20 09/20/17 18:00 99.0 84 18 148/64 (92) 94 09/20/17 14:00 81 09/20/17 12:00 83 09/20/17 12:00 98.6 83 15 173/73 (106) 100 09/20/17 10:00 80 09/20/17 08:15 98 Nasal Cannula 3.00 09/20/17 08:12 99 Nasal Cannula 2.00 09/20/17 08:00 82 09/20/17 08:00 98.7 82 16 148/66 (93) 99 I/O 09/20/17 09/20/17 09/20/17 09/21/17 09/21/17 09/21/17 07:00 15:00 23:00 07:00 15:00 23:00 Intake Total 400 ml 50 ml 120 ml Output Total 130 ml 2000 ml 120 ml 140 ml Balance 270 ml -2000 ml -70 ml -20 ml Intake Oral 120 ml IV Total 50 ml Packed Cells 400 ml Output Urine Total 0 ml Drainage Total 130 ml 120 ml 140 ml Hemodialysis 2000 ml # Voids 1 # Bowel Movements 1 Result Diagram: 09/21/17 0615 09/20/17 0322 Objective Remarks GEN: Well-developed, well-nourished patient. No acute distress. CV: Regular rate and rhythm without obvious murmurs LUNGS: Coarse breath sounds with rhonchi bilaterally, prolonged expiratory phase GI: nondistended, soft, TTP throughout, abdominal binder in place. EXT: No edema, chronic venous stasis changes, present. No calf tenderness. Right foot wrapped in Sarath bandage. Clean and dry. NEURO/PSYCH: Awake, alert. Appropriate insight and judgment. Normal speech A/P Assessment and Plan 72 y/o with chronic history of HTN, DM, ESRD, chronic foot wounds presents from podiatry clinic for evaluation. Admitted for osteomyelitis with debridement and possible amputation. Developed a GI bleed during hospitalization. Repeat colonoscopy was performed on 09/13/2017 with no bleeding source identified. Hemicolectomy performed 09/18/2017. Discharge Planning Undetermined at this time, pending definitive treatment of osteomyelitis. Problem List: (1) GI bleed ICD Codes: K92.2 - Gastrointestinal hemorrhage, unspecified Status: Acute Plan: Repeat colonoscopy on 09/13/2017. Results as follows: 1. Moderate diverticulosis was noted in the sigmoid colon 2. Blood throughout the colon but no active site of bleeding seen. suspect diverticular bleed. 3. A sessile polyp ranging between 3-5mm in size was found in the sigmoid colon ; polypectomy was performed with cold forceps Hemoglobin 6.9 on 09/18/2017 - given another unit of PRBCs on 09/18/17 in AM prior to surgery. PLAN: S/P hemicolectomy with surgical anastomosis. H&H stable x 24 hours. Continue IV Protonix 40 mg IV BID. Advance diet at discretion of surgery. Pain control with IV Morphine 4 mg q 4 pain 1-10, and 2 mg IV for breakthrough q 3 hours. Titrate as tolerated and to pain level. Monitor vitals. Aggressive PT as tolerated. (2) Hypoglycemia ICD Codes: E16.2 - Hypoglycemia, unspecified Plan: BG of 40 on 09/12/2017 - Corrected with hypoglycemia protocol. More recently 52, on 09/20/2017. Given another AMP of D50W, and corrected to 213 mg/ dL. Patient is NPO. Continue with Accu-Cheks at 0800 hrs., 1200 hrs., 1700 hrs., and 2100 hrs. (3) Osteomyelitis of ankle or foot, right, acute ICD Codes: M86.171 - Other acute osteomyelitis, right ankle and foot Status: Acute Plan: Patient with history of chronic right foot wounds that was currently being managed by podiatry (Dr. Bentley). Was hospitalized in July 2017 and underwent surgical exploration and had a wound VAC placed at that time. Admitted per the recommendation of podiatry due to worsening ulcer/wounds. MRI significant for osteomyelitis and multiple bones of the foot and ankle. -Wound cultures showing Corynebacterium sp. -Blood cultures NGTD -Will consult ID for assistance with antibiotic selection and duration. Podiatry consulted: appreciate recommendations * 09/07/17: Debridement of ulcers on right foot/ankle 3 * Plan on 09/[address] Reaves - postponed secondary to acute gastrointestinal bleeding. Focus is on GI bleed for now per Dr. Reaves Vascular consulted: appreciate recommendations * Pt with severe vascular changes, diabetic neuropathy Imaging: * MRI foot: Osteomyelitis develop at the fifth metatarsal base. Slight worsening osteomyelitis of the great toe head of the proximal phalanx and distal half of the distal phalanx. Worsening osteomyelitis of the fibular sesamoid. The superficial osteomyelitis of the tibial sesamoid not significantly changed. No drainable abscess. * MRI ankle: Severe soft tissue ulceration laterally and posteromedially of the ankle/hindfoot. Fluid collection in the posterior lateral gutter, potentially an abscess. Osteomyelitis of the calcaneus. Osteomyelitis of the distal fibula possible osteomyelitis focally of the posterior medial aspect of the talus. * Foot x-ray: Osteopenia, no acute bony abnormality. Medications * Vancomycin (09/06- per nephrology dosing/titration * Zosyn (09/07- (4) ESRD (end stage renal disease) on dialysis ICD Codes: N18.6 - End stage renal failure on dialysis; Z99.2 - Dependence on renal dialysis Status: Chronic Plan: Dialysis Saturday, Saturday, Saturday typically. Sees Dr. Buchanan, emery grinder outpatient. No urine output Nephrology consulted: Appreciate recommendations * Resume dialysis 3x/wk * Monitor phosphorus intermittently, use binders as appropriate. * Fluid restriction (5) Diabetes mellitus ICD Codes: E11.9 - Type 2 diabetes mellitus without complications Status: Chronic Plan: History of long-term diabetes on insulin at home -Sliding scale insulin -Monitor accuchecks (6) Hypertension ICD Codes: I10 - Hypertension Status: Chronic Plan: BP better controlled with addition of hydralazine 25 mg BID. Cont home amlodipine. (7) Hypothyroidism ICD Codes: E03.9 - Hypothyroidism Status: Chronic Plan: Continue home Synthroid. (8) FEN Status: Acute Plan: Fluids: D/c ivf. As determined by surgeon. No signs of fluid overload on exam this AM. Electrolytes: monitor, replace PRN. Nutrition: As guided by GI DVT ppx: hold chemoppx due to surgery, SCDs DW Dr. Sandhu Problem Qualifiers (1) GI bleed: Qualified Codes: K57.91 - Diverticulosis of intestine, part unspecified, without perforation or abscess with bleeding (2) Diabetes mellitus: Qualified Codes: E11.42 - Type 2 diabetes mellitus with diabetic polyneuropathy ; Z79.4 - senior care (current) use of insulin (3) Hypertension: Qualified Codes: I10 - Essential (primary) hypertension (4) Hypothyroidism: Qualified Codes: E03.9 - Hypothyroidism, unspecified Jesus Mendiola MD, R3 Sep 21, 2017 07:50
[2017-09-21 08:00] VITALS: BP 139/63; PULSE 76; RESP 17; TEMP 98; O2SAT 95
[2017-09-21 08:07] LABS: ALBUMIN 1.6 GM/DL (3.4-5.0); ALKALINE PHOSPHATASE 94 U/L (45-117); ALT (GPT) LESS THAN 6 U/L (10-53); AST (GOT) 38 U/L (15-37); BICARBONATE 28.6 MEQ/L (21.0-32.0); BLOOD UREA NITROGEN 22 MG/DL (7-18); CALCIUM 7.7 MG/DL (8.5-10.1); CHLORIDE 102 MEQ/L (98-107); CREATININE 4.61 MG/DL (0.50-1.00); GLOMERULAR FILTRATION RATE 11 ML/MIN (>89); SODIUM (NA) 140 MEQ/L (136-145); TOTAL BILIRUBIN ADULT 0.4 MG/DL (0.2-1.0); TOTAL PROTEIN 6.3 GM/DL (6.4-8.2)
[2017-09-21] MEDS: DEXTROSE 50% IN WATER 50 ML VIAL(D50) IV PUSH PRN (08:08)
[2017-09-21 08:14] LABS: GLUCOSE,RANDOM 41 MG/DL (74-106)
[2017-09-21] MEDS: VITAMIN B CMPLX/VITC/FOLIC AC CAP PO SCH (09:00)
[2017-09-21] MEDS: MORPHINE SULFATE 4 MG/ML INJ IV PUSH PRN ×2 (09:19→13:41)
[2017-09-21] MEDS: INSULIN ASPART SUPPLEMENTAL SCALE SQ SCH ×3 (09:20→17:20)
[2017-09-21] MEDS: SEVELAMER CARBONATE 800 MG TAB PO SCH ×3 (09:23→17:20)
[2017-09-21] MEDS: DOCUSATE SODIUM 50 MG/SENNA 8.6 MG TAB PO SCH ×2 (09:24→21:00)
[2017-09-21] MEDS: hydrALAZINE HCL 25 MG TAB PO SCH ×2 (09:24→21:30)
[2017-09-21] MEDS: PANTOPRAZOLE SODIUM 40 MG VIAL IV PUSH SCH ×2 (09:26→21:29)
[2017-09-21] MEDS: SODIUM CHLORIDE 0.9% FLUSH 10 ML FLUSH IV FLUSH SCH ×2 (09:26→21:30)
--- NOTE | 2017-09-21 09:28 | PD.CAR.PN ---
CVT Progress Note Subjective/Hospital Course: Consult received Full dictation to follow For podiatry debridement Saturday and after that we will evaluate as far as salvageability of the leg is concerned Thanks Jean Paul 09/09/17 Patient with severe peripheral vascular disease gangrene of the right heel and osteomyelitis Every effort has been made by podiatry to salvage the foot and there are no other options left I agree with Dr. Galvez and Dr. Nadir Mello, and the only option at this time is right below-knee amputation Patient scheduled for right below-knee amputation with second and third opinion of additional 2 physicians Today's BKA has to be canceled due to the fact that patient's hemoglobin is 6.7 and due to logistical reasons transfusion of 2 units PRBC was not not administered prior to taking patient to the operating room this afternoon. Considering this is purely elective procedure I believe it's safe and appropriate to transfuse this patient in peace and do surgery tomorrow Patient scheduled for right BKA tomorrow 09/10/17 Patient was initially rescheduled for surgery today however she had some bright red blood per rectum and surgery is now canceled GI bleeding takes precedence and patient will need a full workup on this issue before proceed with amputation If patient needs some gastrointestinal surgery or general surgical intervention I will be available and we'll continue to follow patient Once everything resolved we will reconsider the amputation issue 09/11/17 Hemoglobin again down to 6.9 g/dL as a result of GI bleeding Completely agree with medicine and gastroenterology approach and plan No clear site of bleeding and identified and this is often a problem in patients who have multiple pathologies, all of which could be attributing to the bleeding process including diverticular disease AVM malformations and such Most of these bleeds will see his on the round and only about 10-15% of patients will require actual surgery for the same. Precise identification of the bleeding site being the right or the left colon is imperative should patient require surgery for continuous bleeding, for knowing in their and having to do subtotal colectomy on this lady would double the mortality as opposed only removing the right or the left colon. Sometimes however we cannot identify the bleeding site and then subtotal colectomy remains the only option. Will continue follow patient which you and if patient require surgery I will be available to preform it. As far as the leg is concerned, amputation is now a secondary issue and will not be undertaken until the above issues are resolved and treated satisfactorily. 09/12/17 Patient currently stabilized from GI bleeding Hemoglobin is now stable Angiogram is negative for bleeding but that the requires at least the bleeding of 3 cc/minute to show up On the other hand no clear scan does reveal bleeding which in this case looks like transverse colon Majority of these bleeds will stop on the round with good supportive therapy and patient doesn't need further interventions On the other hand if the patient gets up to 6-8 units of blood transfusions than the risk of surgery is by far exceeded by the risk of repeated transfusions and then surgery is indicated We'll see how patient does and recommend as we go along Discussed with Dr Mi 09/13/17 Patient with diverticulosis and the likely transverse to left colon bleed Agree with Dr. Mi as to the site of bleeding Abdomen is soft active bowel sounds the patient appears to be stable She dropped her hemoglobin bit yesterday he received 1 more units of blood and now it's up again Patient is now 5 units PRBC later and the another unit or 2 and then we'll have to take patient to the operating room for extended left colectomy if this doesn't stop because then the risk of bleeding and problems with transfusion exceeds the risk of surgery We'll see the patient does through the weekend but she is close to needing surgery at this time 09/14/17 Patient doing okay now Abdomen is soft active bowel sounds Hemoglobin appears to be relatively stable between 9 and 8 g/dL and holding. As noted above patient has received 5 units of PRBCs up to now and once we get to point of 67 or 8 units and patient continues to lose blood, then the risk of surgery is less than the risk of repeated transfusions and at that point patient would need left colectomy. Discussed with Dr. Mi and we agree on being very conservative in this situation and doing everything to avoid surgery in this lady. Will continue to follow 09/15/17 Patient had some bleeding last night and hemoglobin was repeated to come back at 10 g/dL This was clearly old blood yet this morning hemoglobin is 8.1 g/dL some believe that former number was probably incorrect last night Patient doesn't appear to have active bleeding If she requires more blood and starts bleeding again should definitely go to the operating room from extended left colectomy At this point would advance to the diet and allow patient to eat and see how she does There is a high likelihood that patient will require left colon resection which of course is a procedure associated with some degree morbidity in this elderly lady. 09/16/17 Patient doing well at this time Abdomen soft active bowel sounds tolerates diet No more fresh or maroon blood per rectum Hemoglobin remains relatively stable between 7.5 and 8 g/dL Continue observation if patient drops hemoglobin 1 more time and starts bleeding she'll be going to the operating room for extended left colectomy 09/17/2017 Patient still passing clots some of the same I liquid blood and some more formed some maroon than some fresh At this point case discussed at length with medical attending and decision is made that this patient eventually clearly need surgery. I have discussed this with patient at length and she is reluctant to have surgery if she needs a colostomy, which is very unlikely but not completely excluded Patient will be cleaned out with GoLYTELY prep and is scheduled tomorrow for extended left colectomy with primary anastomosis 09/19/2017 Patient is status post extended left colectomy with low anterior anastomosis yesterday Incision clean and dry and abdomen is soft with few bowel sounds Of course no gas yet keep n.p.o. but for medications Patient can be out of bed with a binder Continue current care Patient can transfer to floor from my point any time 09/20/2017 Patient is still in ICU but as above noted yesterday from surgical point patient can transfer to floor anytime Perhaps there were no beds available Patient is doing well Abdomen is soft hypoactive bowel sounds incision is clean and dry Patient should get aggressive physical therapy to prevent her from being bedridden in the future We will advance to full liquids and from there as tolerated to diet It should be noted that this patient will still require below-knee amputation as she was originally the consult for the same However I do not want to put 2 surgeries to close together and I would allow patient to recover from this first Next surgery should probably not be done before middle or end of next week 09/21/2017 Patient doing well at this time Abdomen is soft with hypoactive bowel sounds incision is clean and dry Tolerates full liquids I would probably wait for another day or so before advancing diet further considering her frail state and degree of ileus This patient has low anterior resection and therefore should absolutely not receive any medication per rectum suppositories, enemas and such because this could disrupt the anastomosis. Any rectal manipulations or medications are absolutely contraindicated! Recommend Patient should probably get 1 unit of blood with next dialysis but there is no reason to keep the hemoglobin around 7 despite the fact that she is not bleeding anymore In addition patient sugar seems to be however around 50 and 70 and in face of decreased p.o. intake would be advisable to decrease the insulin administration until patient is back on full diet. I wrote her have patient hyperglycemic for a day or 2 then severely hypoglycemic even once which can be fatal For below-knee amputation next week Objective: Vital Signs Date Time Temp Pulse Resp B/P (MAP) Pulse Ox O2 Delivery O2 Flow Rate FiO2 09/21/17 08:00 98.0 76 17 139/63 (88) 95 09/21/17 04:00 96.8 80 18 158/70 (99) 98 09/21/17 01:40 98.0 78 18 141/64 (89) 99 09/20/17 20:48 98.2 84 18 172/75 (107) 100 09/20/17 20:00 83 09/20/17 20:00 Nasal Cannula 2.00 09/20/17 19:03 20 09/20/17 18:00 99.0 84 18 148/64 (92) 94 09/20/17 14:00 81 09/20/17 12:00 83 09/20/17 12:00 98.6 83 15 173/73 (106) 100 09/20/17 10:00 80 Labs: Laboratory Tests Test 09/21/17 06:15 White Blood Count 12.8 TH/MM3 (4.0-11.0) Red Blood Count 2.72 MIL/MM3 (4.00-5.30) Hemoglobin 7.8 GM/DL (11.6-15.3) Hematocrit 23.8 % (35.0-46.0) Mean Corpuscular Volume 87.3 FL (80.0-100.0) Mean Corpuscular Hemoglobin 28.7 PG (27.0-34.0) Mean Corpuscular Hemoglobin Concent 32.9 % (32.0-36.0) Red Cell Distribution Width 18.5 % (11.6-17.2) Platelet Count 275 TH/MM3 (150-450) Mean Platelet Volume 8.5 FL (7.0-11.0) Neutrophils (%) (Auto) 73.9 % (16.0-70.0) Lymphocytes (%) (Auto) 9.8 % (9.0-44.0) Monocytes (%) (Auto) 10.3 % (0.0-8.0) Eosinophils (%) (Auto) 5.2 % (0.0-4.0) Basophils (%) (Auto) 0.8 % (0.0-2.0) Neutrophils # (Auto) 9.5 TH/MM3 (1.8-7.7) Lymphocytes # (Auto) 1.3 TH/MM3 (1.0-4.8) Monocytes # (Auto) 1.3 TH/MM3 (0-0.9) Eosinophils # (Auto) 0.7 TH/MM3 (0-0.4) Basophils # (Auto) 0.1 TH/MM3 (0-0.2) CBC Comment AUTO DIFF Blood Urea Nitrogen 22 MG/DL (7-18) Creatinine 4.61 MG/DL (0.50-1.00) Random Glucose 41 MG/DL (74-106) Total Protein 6.3 GM/DL (6.4-8.2) Albumin 1.6 GM/DL (3.4-5.0) Calcium Level 7.7 MG/DL (8.5-10.1) Alkaline Phosphatase 94 U/L (45-117) Aspartate Amino Transf (AST/SGOT) 38 U/L (15-37) Alanine Aminotransferase (ALT/SGPT) LESS THAN 6 U/L (10-53) Total Bilirubin 0.4 MG/DL (0.2-1.0) Sodium Level 140 MEQ/L (136-145) Potassium Level 5.1 MEQ/L (3.5-5.1) Chloride Level 102 MEQ/L (98-107) Carbon Dioxide Level 28.6 MEQ/L (21.0-32.0) Anion Gap 9 MEQ/L (5-15) Estimat Glomerular Filtration Rate 11 ML/MIN (>89) Result Diagram: 09/21/1761409/21/17614 Amalia De La Cruz MD Sep 21, 2017 09:28
[2017-09-21 12:00] VITALS: BP 124/61; PULSE 77; RESP 19; TEMP 97.9; O2SAT 100
--- NOTE | 2017-09-21 12:46 | HHI.NPPN ---
Subjective General Problems: Anemia Renal Failure: Chronic, End Stage Renal Disease History of Present Illness Ms. Bolivar is a 72 year old lady with history of ESRD on HD. She was recently in the hospital with right foot infection, ulcer for which she underwent surgery with placement of wound vac. She was sent to the ER by her news production supervisor for management of possible infection in the right foot. Additional Remarks Resting comfortably. Dialysis yesterday. Does not report and problems or complaints (Shasta Dalton) Review of Systems General Constitutional: Fatigue (Shasta Dalton) Respiratory Respiratory Remarks Denies any SOB (Shasta Dalton) Cardiovascular Cardiac Remarks Denies any CP (Shasta Dalton) Gastrointestinal Gastrointestinal: Blood/Tarry Stools (Shasta Dalton) Musculoskeletal MS: Pain/Stiffness (Shasta Dalton) Skin Skin: Ulcers (Shasta Dalton) Psych Psych: Depression (Shasta Dalton) Objective Data Data Vital Signs Date Time Temp Pulse Resp B/P (MAP) Pulse Ox O2 Delivery O2 Flow Rate FiO2 09/21/17 12:00 97.9 77 19 124/61 (82) 100 09/21/17 08:00 98.0 76 17 139/63 (88) 95 09/21/17 04:00 96.8 80 18 158/70 (99) 98 09/21/17 01:40 98.0 78 18 141/64 (89) 99 09/20/17 20:48 98.2 84 18 172/75 (107) 100 09/20/17 20:00 83 09/20/17 20:00 Nasal Cannula 2.00 09/20/17 19:03 20 09/20/17 18:00 99.0 84 18 148/64 (92) 94 09/20/17 14:00 81 (Shasta Dalton) -: 09/21/1715 09/21/1715 Imaging Last Impressions GI Bleed Scan Nuclear Medicine 09/11/17 0000 Signed Impressions: Service Date/Time: Monday, September 11, 2017 15:51 - CONCLUSION: Active hemorrhage observed in what is felt to be transverse colon. Praneeth Villa Jr., MD Abdomen Arteriogram 09/11/17 0000 Signed Impressions: Service Date/Time: Monday, September 11, 2017 20:01 - CONCLUSION: 1. Diagnostic mesenteric angiography fails to show a source of hemorrhage or site of hemorrhage. Praneeth Villa Jr., MD Foot MRI 09/07/17 0000 Signed Impressions: Service Date/Time: Thursday, September 07, 2017 17:51 - CONCLUSION: 1. Osteomyelitis has developed at the fifth metatarsal base. 2. Slightly worsening osteomyelitis great toe head of the proximal phalanx and distal half of the distal phalanx. 3. Worsening osteomyelitis of the fibular sesamoid. There superficial osteomyelitis of the tibial sesamoid not significantly changed. 4. No drainable abscess. 5. Signal changes of the medial and intermediate cuneiforms and the third metatarsal base are most likely reactive. Ankle MRI to follow and please refer to that report for ankle and hindfoot findings. Jacob Hall MD Ankle MRI 09/07/17 0000 Signed Impressions: Service Date/Time: Thursday, September 07, 2017 17:51 - CONCLUSION: 1. Severe soft tissue ulceration laterally and posteromedially of the ankle/hindfoot. 2. 2.8 cm fluid collection in the posterolateral gutter, potentially an abscess. 3. Osteomyelitis of the calcaneus, scattered/patchy but most of the bone is involved, especially laterally. 4. Also osteomyelitis of the distal 4 cm of the fibula. 5. Possible osteomyelitis focally of the posteromedial aspect of the talus. Please see above. 6. Exposed peroneal tendons but grossly intact. Considerable tendinosis of the flexor hallucis longus at the level of the distal leg and certainly could be infectious given the other findings. Patient had MRI of the right foot today. Please refer to that report for midfoot and forefoot findings. Jacob Hall MD Chest X-Ray 09/06/171925 Signed Impressions: Service Date/Time: Wednesday, September 06, 2017 19:55 - CONCLUSION: 1. Patchy subsegmental mostly basilar airspace disease with cardiomegaly. No effusion. Daniel Hinkle MD Foot X-Ray 09/06/17 0000 Signed Impressions: Service Date/Time: Wednesday, September 06, 2017 20:00 - CONCLUSION: 1. Osteopenia. No acute bony abnormality. Daniel Hinkle MD (Shasta Dalton. DISPLAY TRIMMER) Physical Exam General Appearance: Well Developed, No Acute Distress, Comfortable, Malnourished (Shasta Dalton. DISPLAY TRIMMER) Eyes Eye Exam: Pupils Equal (Shasta Dalton M. DISPLAY TRIMMER) Throat Throat Exam: Oral Mucosa [place] & Moist (Denise Daltonne M. DISPLAY TRIMMER) Neck Neck Exam: Neck Supple (Shasta Dalton. DISPLAY TRIMMER) Pulmonary Resp Exam: Clear Bilaterally, Breath Sounds Equal (NoahlerShasta deutsch. DISPLAY TRIMMER) Cardiology CV Exam: Regular, Normal Sinus Rhythm, Good Perfusion (NoahlerShasta deutsch. DISPLAY TRIMMER) Gastrointestinal/Abdomen GI Exam: Soft, Non-Tender, Positive Bowel Movement, Bowel Sounds Hypoactive (Shasta Dalton. DISPLAY TRIMMER) Musculoskeletal MS Exam: Normal Tone, Good Strength (Shasta Dalton M. DISPLAY TRIMMER) Integumentary Skin Exam: Warm, Dry (Shasta Dalton. DISPLAY TRIMMER) Extremeties Extremities Exam: No Edema (Shasta Dalton. DISPLAY TRIMMER) Neurologic Neuro Exam: Alert, Awake, Oriented, Speech Clear, Moving All Extremities (Shasta Dalton. DISPLAY TRIMMER) Psychiatric Psych Exam: Appropriate Responses (Shasta Dalton) Assessment/Plan Discussed Condition With: Patient Assessment Summary: Anemia of CKD, Hypertension, End Stage Renal Disease Problem List: (1) ESRD (end stage renal disease) on dialysis ICD Codes: N18.6 - End stage renal failure on dialysis; Z99.2 - Dependence on renal dialysis Status: Chronic Plan: Continue HD MWF Intermittently monitor renal profile. Continue current plan. Maintenance IVF discontinued Left arm AVF functions well. Dialysis yesterday with 2 liters removed. (2) GI bleed ICD Codes: K92.2 - Gastrointestinal hemorrhage, unspecified Status: Acute Plan: GI and general surgery following, s/p L hemicolectomy Follow H/H (3) Anemia ICD Codes: D64.9 - Anemia, unspecified Status: Acute Plan: Transfused 6 units since admission On Epogen with dialysis.Given venofer. (4) Foot ulcer, right ICD Codes: L97.519 - Non-pressure chronic ulcer of other part of right foot with unspecified severity Status: Acute Plan: s/p debridement. will require BKA Vascular surgery following. On Zosyn and vancomycin. (5) Metabolic bone disease ICD Codes: E88.9 - Metabolic disorder, unspecified; M90.80 - Osteopathy in diseases classified elsewhere, unspecified site Status: Acute Plan: monitor phosphorus intermittently. Resume phosphate binder therapy when diet advances. (6) Hypertension ICD Codes: I10 - Hypertension Status: Chronic Plan: monitor BP, continue medications. (7) Diabetes mellitus ICD Codes: E11.9 - Type 2 diabetes mellitus without complications Status: Chronic Plan: Continue insulin coverage while hospitalized, maintain blood glucose between 140 and 180. Use D10 @ 20 while NPO. (Shasta Dalton) Problem List: (1) ESRD (end stage renal disease) on dialysis ICD Codes: N18.6 - End stage renal failure on dialysis; Z99.2 - Dependence on renal dialysis Status: Chronic Plan: Continue HD MWF Intermittently monitor renal profile. Continue current plan. Maintenance IVF discontinued Left arm AVF functions well. Dialysis yesterday with 2 liters removed. Patient seen and examined, agree with above. Hgb. is low, on Epogen with HD. (2) GI bleed ICD Codes: K92.2 - Gastrointestinal hemorrhage, unspecified Status: Acute Plan: GI and general surgery following, s/p L hemicolectomy Follow H/H (3) Anemia ICD Codes: D64.9 - Anemia, unspecified Status: Acute Plan: Transfused 6 units since admission On Epogen with dialysis.Given venofer. (4) Foot ulcer, right ICD Codes: L97.519 - Non-pressure chronic ulcer of other part of right foot with unspecified severity Status: Acute Plan: s/p debridement. will require BKA Vascular surgery following. On Zosyn and vancomycin. (5) Metabolic bone disease ICD Codes: E88.9 - Metabolic disorder, unspecified; M90.80 - Osteopathy in diseases classified elsewhere, unspecified site Status: Acute Plan: monitor phosphorus intermittently. Resume phosphate binder therapy when diet advances. (6) Hypertension ICD Codes: I10 - Hypertension Status: Chronic Plan: monitor BP, continue medications. (7) Diabetes mellitus ICD Codes: E11.9 - Type 2 diabetes mellitus without complications Status: Chronic Plan: Continue insulin coverage while hospitalized, maintain blood glucose between 140 and 180. Use D10 @ 20 while NPO. (Karli Oshea MD) Problem Qualifiers (1) GI bleed: Qualified Codes: K57.91 - Diverticulosis of intestine, part unspecified, without perforation or abscess with bleeding (2) Foot ulcer, right: Qualified Codes: L97.512 - Non-pressure chronic ulcer of other part of right foot with fat layer exposed (3) Hypertension: Qualified Codes: I10 - Essential (primary) hypertension (4) Diabetes mellitus: Qualified Codes: E11.42 - Type 2 diabetes mellitus with diabetic polyneuropathy ; Z79.4 - MCC (current) use of insulin Shasta Dalton Sep 21, 2017 12:46 Karli Oshea MD Sep 21, 2017 14:33
[2017-09-21 16:00] VITALS: BP 117/58; PULSE 69; RESP 19; TEMP 96.4; O2SAT 95
[2017-09-21 20:00] VITALS: BP 110/53; PULSE 77; RESP 16; TEMP 98.8; O2SAT 98
[2017-09-21] MEDS: hydrOXYzine HCL 25 MG TAB PO SCH (21:30)
[2017-09-21] MEDS: MIRTAZAPINE 15 MG TAB PO SCH (21:30)
[2017-09-21] MEDS: ZOLPIDEM TARTRATE 5 MG TAB PO PRN (22:42)
[2017-09-22] VITALS (7 sets, daily range): BP systolic 96–139; BP diastolic 46–63; PULSE 74–84; RESP 16–20; TEMP 97.2–98.9; O2SAT 92–100
[2017-09-22] MEDS: SEVELAMER CARBONATE 800 MG TAB PO SCH ×3 (05:55→18:13)
[2017-09-22] MEDS: LEVOTHYROXINE SODIUM 75 MCG TAB PO SCH (05:55)
[2017-09-22] MEDS: PIPERACIL-TAZO 2.25 GM PREMIX 50 ML IV SCH ×3 (06:00→21:50)
--- NOTE | 2017-09-22 06:50 | HHI.FPPN ---
Subjective Remarks Patient very sleepy this morning. Able to follow commands and answer basic questions. Knows that she is in the hospital and in [place]. She knows that she had "a stomach surgery." She is not in pain. Per nursing, she had an episode of nonbloody vomiting yesterday after her meal. Objective Vitals Vital Signs Date Time Temp Pulse Resp B/P (MAP) Pulse Ox O2 Delivery O2 Flow Rate FiO2 09/22/17 04:29 98.3 79 16 127/59 (81) 98 09/22/17 00:00 98.9 74 16 96/46 (63) 100 09/21/17 21:20 Nasal Cannula 2.00 21 09/21/17 20:00 98.8 77 16 110/53 (72) 98 09/21/17 16:00 96.4 69 19 117/58 (77) 95 09/21/17 14:56 97 2.00 09/21/17 12:00 97.9 77 19 124/61 (82) 100 09/21/17 08:00 98.0 76 17 139/63 (88) 95 I/O 09/21/17 09/21/17 09/21/17 09/22/17 09/22/17 09/22/17 07:00 15:00 23:00 07:00 15:00 23:00 Intake Total 120 ml 50 ml 860 ml 480 ml Output Total 140 ml 60 ml Balance -20 ml 50 ml 800 ml 480 ml Intake Oral 120 ml 860 ml 480 ml IV Total 50 ml Drainage Total 140 ml 60 ml # Voids 1 1 # Bowel Movements 1 2 2 Result Diagram: 09/21/1761409/21/17614 Objective Remarks GEN: Well-developed, well-nourished patient. No acute distress. CV: Regular rate and rhythm without obvious murmurs LUNGS: Coarse breath sounds with rhonchi bilaterally, prolonged expiratory phase GI: nondistended, soft, TTP throughout, abdominal binder in place. EXT: No edema, chronic venous stasis changes, present. No calf tenderness. Right foot wrapped in Sarath bandage. Clean and dry. NEURO/PSYCH: Awake, alert. Appropriate insight and judgment. Normal speech A/P Assessment and Plan 72 y/o with chronic history of HTN, DM, ESRD, chronic foot wounds presents from podiatry clinic for evaluation. Admitted for osteomyelitis with debridement and possible amputation. Developed a GI bleed during hospitalization. Repeat colonoscopy was performed on 09/13/2017 with no bleeding source identified. Hemicolectomy performed 09/18/2017. Discharge Planning Undetermined at this time, pending definitive treatment of osteomyelitis. Problem List: (1) GI bleed ICD Codes: K92.2 - Gastrointestinal hemorrhage, unspecified Status: Acute Plan: Repeat colonoscopy on 09/13/2017. Results as follows: 1. Moderate diverticulosis was noted in the sigmoid colon 2. Blood throughout the colon but no active site of bleeding seen. suspect diverticular bleed. 3. A sessile polyp ranging between 3-5mm in size was found in the sigmoid colon ; polypectomy was performed with cold forceps Hemoglobin 6.9 on 09/18/2017 - given another unit of PRBCs on 09/18/17 in AM prior to surgery. PLAN: S/P hemicolectomy with surgical anastomosis. H&H stable x 24 hours. Continue IV Protonix 40 mg IV BID. Advance diet at discretion of surgery. Pain control with IV Morphine 4 mg q 4 pain 1-10, and 2 mg IV for breakthrough q 3 hours. Titrate as tolerated and to pain level. Monitor vitals. Aggressive PT as tolerated. (2) Hypoglycemia ICD Codes: E16.2 - Hypoglycemia, unspecified Plan: BG of 40 on 09/12/2017 - Corrected with hypoglycemia protocol. More recently 52, on 09/20/2017. Given another AMP of D50W, and corrected to 213 mg/ dL. Patient is NPO. Continue with Accu-Cheks at 0800 hrs., 1200 hrs., 1700 hrs., and 2100 hrs. (3) Osteomyelitis of ankle or foot, right, acute ICD Codes: M86.171 - Other acute osteomyelitis, right ankle and foot Status: Acute Plan: MRI significant for osteomyelitis and multiple bones of the foot and ankle. Is scheduled next week for a below the knee amputation on the right, by Dr. Reaves. -Wound cultures showing Corynebacterium sp. -Blood cultures NGTD Podiatry consulted: appreciate recommendations * 09/07/17: Debridement of ulcers on right foot/ankle 3 * Plan on 09/[address] Reaves - postponed secondary to acute gastrointestinal bleeding. Focus is on GI bleed for now per Dr. Reaves Vascular consulted: appreciate recommendations * Pt with severe vascular changes, diabetic neuropathy Imaging: * MRI foot: Osteomyelitis develop at the fifth metatarsal base. Slight worsening osteomyelitis of the great toe head of the proximal phalanx and distal half of the distal phalanx. Worsening osteomyelitis of the fibular sesamoid. The superficial osteomyelitis of the tibial sesamoid not significantly changed. No drainable abscess. * MRI ankle: Severe soft tissue ulceration laterally and posteromedially of the ankle/hindfoot. Fluid collection in the posterior lateral gutter, potentially an abscess. Osteomyelitis of the calcaneus. Osteomyelitis of the distal fibula possible osteomyelitis focally of the posterior medial aspect of the talus. * Foot x-ray: Osteopenia, no acute bony abnormality. Medications * Vancomycin (09/06- per nephrology dosing/titration * Zosyn (09/07- (4) ESRD (end stage renal disease) on dialysis ICD Codes: N18.6 - End stage renal failure on dialysis; Z99.2 - Dependence on renal dialysis Status: Chronic Plan: Dialysis Saturday, Saturday, Saturday typically. Sees Dr. Buchanan, brownell operator outpatient. No urine output Nephrology consulted: Appreciate recommendations * Resume dialysis 3x/wk * Monitor phosphorus intermittently, use binders as appropriate. * Fluid restriction (5) Diabetes mellitus ICD Codes: E11.9 - Type 2 diabetes mellitus without complications Status: Chronic Plan: History of long-term diabetes on insulin at home -Sliding scale insulin -Monitor accuchecks (6) Hypertension ICD Codes: I10 - Hypertension Status: Chronic Plan: BP better controlled with addition of hydralazine 25 mg BID. Cont home amlodipine. (7) Hypothyroidism ICD Codes: E03.9 - Hypothyroidism Status: Chronic Plan: Continue home Synthroid. (8) FEN Status: Acute Plan: Fluids: D/c ivf. No signs of fluid overload on exam this AM. Electrolytes: monitor, replace PRN. Nutrition: As guided by GI DVT ppx: hold chemoppx due to surgery, SCDs DW Dr. Fieldattlexy Problem Qualifiers (1) GI bleed: Qualified Codes: K57.91 - Diverticulosis of intestine, part unspecified, without perforation or abscess with bleeding (2) Diabetes mellitus: Qualified Codes: E11.42 - Type 2 diabetes mellitus with diabetic polyneuropathy ; Z79.4 - terminal gauger (current) use of insulin (3) Hypertension: Qualified Codes: I10 - Essential (primary) hypertension (4) Hypothyroidism: Qualified Codes: E03.9 - Hypothyroidism, unspecified Jesus Mendiola MD, R3 Sep 22, 2017 06:50
[2017-09-22 07:35] LABS: AUTOMATED NEUTROPHIL # 7.6 TH/MM3 (1.8-7.7); BASOPHIL # 0.1 TH/MM3 (0-0.2); BASOPHIL % 0.6 % (0.0-2.0); EOSINOPHIL # 0.7 TH/MM3 (0-0.4); EOSINOPHIL % 6.8 % (0.0-4.0); HEMATOCRIT 23.4 % (35.0-46.0); HEMOGLOBIN 7.7 GM/DL (11.6-15.3); LYMPH % 10.3 % (9.0-44.0); LYMPHOCYTE # 1.1 TH/MM3 (1.0-4.8); MEAN CELL VOLUME 88.3 FL (80.0-100.0); MEAN CORPUSCULAR HEMOGLOBIN 29.2 PG (27.0-34.0); MEAN PLATELET VOLUME 8.7 FL (7.0-11.0); MONO % 11.6 % (0.0-8.0); MONOCYTE # 1.2 TH/MM3 (0-0.9); NEUT % 70.7 % (16.0-70.0); PLATELET COUNT 286 TH/MM3 (150-450); RED BLOOD COUNT 2.65 MIL/MM3 (4.00-5.30); WHITE BLOOD COUNT 10.7 TH/MM3 (4.0-11.0)
--- NOTE | 2017-09-22 08:41 | HHI.NPPN ---
Subjective General Problems: Anemia Renal Failure: Chronic, End Stage Renal Disease History of Present Illness Ms. Bolivar is a 72 year old lady with history of ESRD on HD. She was recently in the hospital with right foot infection, ulcer for which she underwent surgery with placement of wound vac. She was sent to the ER by her forms designer for management of possible infection in the right foot. Additional Remarks Sitting at side of bed eating breakfast. Denies any SOB. No edema (Shasta Dalton) Review of Systems General Constitutional: Fatigue (Shasta Dalton) Respiratory Respiratory Remarks Denies any SOB (Shasta Dalton) Cardiovascular Cardiac Remarks Denies any CP (Shasta Dalton) Gastrointestinal Gastrointestinal: Blood/Tarry Stools (Shasta Dalton) Musculoskeletal MS: Pain/Stiffness (Shasta Dalton) Skin Skin: Ulcers (Shasta Dalton) Psych Psych: Depression (Shasta Dalton) Objective Data Data 09/22/17 09/23/17 19:00 07:00 Intake Total 120 ml Output Total 220 ml Balance -100 ml Intake Oral 120 ml Drainage Total 220 ml Vital Signs Date Time Temp Pulse Resp B/P (MAP) Pulse Ox O2 Delivery O2 Flow Rate FiO2 09/22/17 07:49 98.1 79 19 125/61 (82) 99 09/22/17 04:29 98.3 79 16 127/59 (81) 98 09/22/17 00:00 98.9 74 16 96/46 (63) 100 09/21/17 21:20 Nasal Cannula 2.00 21 09/21/17 20:00 98.8 77 16 110/53 (72) 98 09/21/17 16:00 96.4 69 19 117/58 (77) 95 09/21/17 14:56 97 2.00 09/21/17 12:00 97.9 77 19 124/61 (82) 100 (Shasta Dalton) -: 09/22/17 0635 09/21/17 0615 Physical Exam General Appearance: Well Developed, No Acute Distress, Comfortable, Malnourished (Shasta Dalton) Eyes Eye Exam: Pupils Equal (Shasta Dalton) Throat Throat Exam: Oral Mucosa [place] & Moist (Shasta Dalton) Neck Neck Exam: Neck Supple (Shasta DaltnoP) Pulmonary Resp Exam: Clear Bilaterally, Breath Sounds Equal (Shasta DaltonP) Cardiology CV Exam: Regular, Normal Sinus Rhythm, Good Perfusion (Shasta DaltonP) Gastrointestinal/Abdomen GI Exam: Soft, Non-Tender, Positive Bowel Movement, Bowel Sounds Hypoactive (Shasta DaltonP) Musculoskeletal MS Exam: Normal Tone, Good Strength (Shasta Dalton) Integumentary Skin Exam: Warm, Dry (Shasta Dalton) Extremeties Extremities Exam: No Edema (Shasta Dalton) Neurologic Neuro Exam: Alert, Awake, Oriented, Speech Clear, Moving All Extremities (Shasta Dalton) Psychiatric Psych Exam: Appropriate Responses (Shasta Dalton) Assessment/Plan Discussed Condition With: Patient Assessment Summary: Anemia of CKD, Hypertension, End Stage Renal Disease Problem List: (1) ESRD (end stage renal disease) on dialysis ICD Codes: N18.6 - End stage renal failure on dialysis; Z99.2 - Dependence on renal dialysis Status: Chronic Plan: Continue HD MWF Intermittently monitor renal profile. Continue current plan. Left arm AVF functions well. HGB 7.7 Epogen 10,000 units with dialysis Elevated PO4 continue Renvela Dialysis planned for tomorrow BMP pending for today (2) GI bleed ICD Codes: K92.2 - Gastrointestinal hemorrhage, unspecified Status: Acute Plan: GI and general surgery following, s/p L hemicolectomy Follow H/H (3) Anemia ICD Codes: D64.9 - Anemia, unspecified Status: Acute Plan: Transfused 6 units since admission On Epogen with dialysis.Given venofer. (4) Foot ulcer, right ICD Codes: L97.519 - Non-pressure chronic ulcer of other part of right foot with unspecified severity Status: Acute Plan: s/p debridement. will require BKA Vascular surgery following. On Zosyn and vancomycin. (5) Metabolic bone disease ICD Codes: E88.9 - Metabolic disorder, unspecified; M90.80 - Osteopathy in diseases classified elsewhere, unspecified site Status: Acute Plan: monitor phosphorus intermittently. continue Renvela (6) Hypertension ICD Codes: I10 - Hypertension Status: Chronic Plan: monitor BP, continue medications. (7) Diabetes mellitus ICD Codes: E11.9 - Type 2 diabetes mellitus without complications Status: Chronic Plan: Continue insulin coverage while hospitalized, maintain blood glucose between 140 and 180. Use D10 @ 20 while NPO. (Shasta Dalton) Problem List: (1) ESRD (end stage renal disease) on dialysis ICD Codes: N18.6 - End stage renal failure on dialysis; Z99.2 - Dependence on renal dialysis Status: Chronic Plan: Continue HD MWF Intermittently monitor renal profile. Continue current plan. Left arm AVF functions well. HGB 7.7 Epogen 10,000 units with dialysis Elevated PO4 continue Renvela Dialysis planned for tomorrow Patient seen and examined, agree with above. Dr. Greene will follow from AM. Hgb. is low, but stable. (2) GI bleed ICD Codes: K92.2 - Gastrointestinal hemorrhage, unspecified Status: Acute Plan: GI and general surgery following, s/p L hemicolectomy Follow H/H (3) Anemia ICD Codes: D64.9 - Anemia, unspecified Status: Acute Plan: Transfused 6 units since admission On Epogen with dialysis.Given venofer. (4) Foot ulcer, right ICD Codes: L97.519 - Non-pressure chronic ulcer of other part of right foot with unspecified severity Status: Acute Plan: s/p debridement. will require BKA Vascular surgery following. On Zosyn and vancomycin. (5) Metabolic bone disease ICD Codes: E88.9 - Metabolic disorder, unspecified; M90.80 - Osteopathy in diseases classified elsewhere, unspecified site Status: Acute Plan: monitor phosphorus intermittently. continue Renvela (6) Hypertension ICD Codes: I10 - Hypertension Status: Chronic Plan: monitor BP, continue medications. (7) Diabetes mellitus ICD Codes: E11.9 - Type 2 diabetes mellitus without complications Status: Chronic Plan: Continue insulin coverage while hospitalized, maintain blood glucose between 140 and 180. Use D10 @ 20 while NPO. (Karli Oshea MD) Problem Qualifiers (1) GI bleed: Qualified Codes: K57.91 - Diverticulosis of intestine, part unspecified, without perforation or abscess with bleeding (2) Foot ulcer, right: Qualified Codes: L97.512 - Non-pressure chronic ulcer of other part of right foot with fat layer exposed (3) Hypertension: Qualified Codes: I10 - Essential (primary) hypertension (4) Diabetes mellitus: Qualified Codes: E11.42 - Type 2 diabetes mellitus with diabetic polyneuropathy ; Z79.4 - emt intermediate (current) use of insulin Shasta Dalton Sep 22, 2017 08:41 Karli Oshea MD Sep 22, 2017 11:53
[2017-09-22 08:55] LABS: ALBUMIN 1.5 GM/DL (3.4-5.0); ALKALINE PHOSPHATASE 93 U/L (45-117); ALT (GPT) LESS THAN 6 U/L (10-53); AST (GOT) 24 U/L (15-37); BICARBONATE 29.5 MEQ/L (21.0-32.0); BLOOD UREA NITROGEN 25 MG/DL (7-18); CALCIUM 7.1 MG/DL (8.5-10.1); CALCIUM-PROTEIN CORRECTED 7.7 MG/DL (8.5-10.1); CHLORIDE 102 MEQ/L (98-107); CREATININE 5.89 MG/DL (0.50-1.00); GLOMERULAR FILTRATION RATE 9 ML/MIN (>89); GLUCOSE,RANDOM 61 MG/DL (74-106); SODIUM (NA) 140 MEQ/L (136-145); TOTAL BILIRUBIN ADULT 0.2 MG/DL (0.2-1.0); TOTAL PROTEIN 5.9 GM/DL (6.4-8.2)
[2017-09-22] MEDS: VITAMIN B CMPLX/VITC/FOLIC AC CAP PO SCH (09:00)
[2017-09-22] MEDS: hydrALAZINE HCL 25 MG TAB PO SCH ×2 (09:05→21:00)
[2017-09-22] MEDS: DOCUSATE SODIUM 50 MG/SENNA 8.6 MG TAB PO SCH ×2 (09:05→21:36)
[2017-09-22] MEDS: PANTOPRAZOLE SODIUM 40 MG VIAL IV PUSH SCH ×2 (09:05→21:37)
--- NOTE | 2017-09-22 11:02 | PD.CAR.PN ---
CVT Progress Note Subjective/Hospital Course: Consult received Full dictation to follow For podiatry debridement Saturday and after that we will evaluate as far as salvageability of the leg is concerned Thanks Jean Paul 09/09/17 Patient with severe peripheral vascular disease gangrene of the right heel and osteomyelitis Every effort has been made by podiatry to salvage the foot and there are no other options left I agree with Dr. Galvez and Dr. Nadir Mello, and the only option at this time is right below-knee amputation Patient scheduled for right below-knee amputation with second and third opinion of additional 2 physicians Today's BKA has to be canceled due to the fact that patient's hemoglobin is 6.7 and due to logistical reasons transfusion of 2 units PRBC was not not administered prior to taking patient to the operating room this afternoon. Considering this is purely elective procedure I believe it's safe and appropriate to transfuse this patient in peace and do surgery tomorrow Patient scheduled for right BKA tomorrow 09/10/17 Patient was initially rescheduled for surgery today however she had some bright red blood per rectum and surgery is now canceled GI bleeding takes precedence and patient will need a full workup on this issue before proceed with amputation If patient needs some gastrointestinal surgery or general surgical intervention I will be available and we'll continue to follow patient Once everything resolved we will reconsider the amputation issue 09/11/17 Hemoglobin again down to 6.9 g/dL as a result of GI bleeding Completely agree with medicine and gastroenterology approach and plan No clear site of bleeding and identified and this is often a problem in patients who have multiple pathologies, all of which could be attributing to the bleeding process including diverticular disease AVM malformations and such Most of these bleeds will see his on the round and only about 10-15% of patients will require actual surgery for the same. Precise identification of the bleeding site being the right or the left colon is imperative should patient require surgery for continuous bleeding, for knowing in their and having to do subtotal colectomy on this lady would double the mortality as opposed only removing the right or the left colon. Sometimes however we cannot identify the bleeding site and then subtotal colectomy remains the only option. Will continue follow patient which you and if patient require surgery I will be available to preform it. As far as the leg is concerned, amputation is now a secondary issue and will not be undertaken until the above issues are resolved and treated satisfactorily. 09/12/17 Patient currently stabilized from GI bleeding Hemoglobin is now stable Angiogram is negative for bleeding but that the requires at least the bleeding of 3 cc/minute to show up On the other hand no clear scan does reveal bleeding which in this case looks like transverse colon Majority of these bleeds will stop on the round with good supportive therapy and patient doesn't need further interventions On the other hand if the patient gets up to 6-8 units of blood transfusions than the risk of surgery is by far exceeded by the risk of repeated transfusions and then surgery is indicated We'll see how patient does and recommend as we go along Discussed with Dr Mi 09/13/17 Patient with diverticulosis and the likely transverse to left colon bleed Agree with Dr. Mi as to the site of bleeding Abdomen is soft active bowel sounds the patient appears to be stable She dropped her hemoglobin bit yesterday he received 1 more units of blood and now it's up again Patient is now 5 units PRBC later and the another unit or 2 and then we'll have to take patient to the operating room for extended left colectomy if this doesn't stop because then the risk of bleeding and problems with transfusion exceeds the risk of surgery We'll see the patient does through the weekend but she is close to needing surgery at this time 09/14/17 Patient doing okay now Abdomen is soft active bowel sounds Hemoglobin appears to be relatively stable between 9 and 8 g/dL and holding. As noted above patient has received 5 units of PRBCs up to now and once we get to point of 67 or 8 units and patient continues to lose blood, then the risk of surgery is less than the risk of repeated transfusions and at that point patient would need left colectomy. Discussed with Dr. Mi and we agree on being very conservative in this situation and doing everything to avoid surgery in this lady. Will continue to follow 09/15/17 Patient had some bleeding last night and hemoglobin was repeated to come back at 10 g/dL This was clearly old blood yet this morning hemoglobin is 8.1 g/dL some believe that former number was probably incorrect last night Patient doesn't appear to have active bleeding If she requires more blood and starts bleeding again should definitely go to the operating room from extended left colectomy At this point would advance to the diet and allow patient to eat and see how she does There is a high likelihood that patient will require left colon resection which of course is a procedure associated with some degree morbidity in this elderly lady. 09/16/17 Patient doing well at this time Abdomen soft active bowel sounds tolerates diet No more fresh or maroon blood per rectum Hemoglobin remains relatively stable between 7.5 and 8 g/dL Continue observation if patient drops hemoglobin 1 more time and starts bleeding she'll be going to the operating room for extended left colectomy 09/17/2017 Patient still passing clots some of the same I liquid blood and some more formed some maroon than some fresh At this point case discussed at length with medical attending and decision is made that this patient eventually clearly need surgery. I have discussed this with patient at length and she is reluctant to have surgery if she needs a colostomy, which is very unlikely but not completely excluded Patient will be cleaned out with GoLYTELY prep and is scheduled tomorrow for extended left colectomy with primary anastomosis 09/19/2017 Patient is status post extended left colectomy with low anterior anastomosis yesterday Incision clean and dry and abdomen is soft with few bowel sounds Of course no gas yet keep n.p.o. but for medications Patient can be out of bed with a binder Continue current care Patient can transfer to floor from my point any time 09/20/2017 Patient is still in ICU but as above noted yesterday from surgical point patient can transfer to floor anytime Perhaps there were no beds available Patient is doing well Abdomen is soft hypoactive bowel sounds incision is clean and dry Patient should get aggressive physical therapy to prevent her from being bedridden in the future We will advance to full liquids and from there as tolerated to diet It should be noted that this patient will still require below-knee amputation as she was originally the consult for the same However I do not want to put 2 surgeries to close together and I would allow patient to recover from this first Next surgery should probably not be done before middle or end of next week 09/21/2017 Patient doing well at this time Abdomen is soft with hypoactive bowel sounds incision is clean and dry Tolerates full liquids I would probably wait for another day or so before advancing diet further considering her frail state and degree of ileus This patient has low anterior resection and therefore should absolutely not receive any medication per rectum suppositories, enemas and such because this could disrupt the anastomosis. Any rectal manipulations or medications are absolutely contraindicated! Recommend Patient should probably get 1 unit of blood with next dialysis but there is no reason to keep the hemoglobin around 7 despite the fact that she is not bleeding anymore In addition patient sugar seems to be however around 50 and 70 and in face of decreased p.o. intake would be advisable to decrease the insulin administration until patient is back on full diet. I wrote her have patient hyperglycemic for a day or 2 then severely hypoglycemic even once which can be fatal For below-knee amputation next week 09/22/2017 Incision is clean and dry Abdomen is soft and nondistended Apparently patient vomited this morning. Patient has more than one reason to have prolonged ileus including renal failure, age bedridden status while in addition to surgery and narcotics administration Patient is awake but somewhat somnolent She truly needs to be more out of bed because whenever I come to visit the patient is laying in bed She should be aggressively moves around placed in chair and encouraged to deep breathe and move her legs even in the sitting position for otherwise she will have a prolonged ileus and will not do well in the and In addition I encouraged decreasing the dose of narcotics for this elderly lady Objective: Vital Signs Date Time Temp Pulse Resp B/P (MAP) Pulse Ox O2 Delivery O2 Flow Rate FiO2 09/22/17 07:49 98.1 79 19 125/61 (82) 99 09/22/17 04:29 98.3 79 16 127/59 (81) 98 09/22/17 00:00 98.9 74 16 96/46 (63) 100 09/21/17 21:20 Nasal Cannula 2.00 21 09/21/17 20:00 98.8 77 16 110/53 (72) 98 09/21/17 16:00 96.4 69 19 117/58 (77) 95 09/21/17 14:56 97 2.00 09/21/17 12:00 97.9 77 19 124/61 (82) 100 Labs: Laboratory Tests Test 09/22/17 06:35 White Blood Count 10.7 TH/MM3 (4.0-11.0) Red Blood Count 2.65 MIL/MM3 (4.00-5.30) Hemoglobin 7.7 GM/DL (11.6-15.3) Hematocrit 23.4 % (35.0-46.0) Mean Corpuscular Volume 88.3 FL (80.0-100.0) Mean Corpuscular Hemoglobin 29.2 PG (27.0-34.0) Mean Corpuscular Hemoglobin Concent 33.0 % (32.0-36.0) Red Cell Distribution Width 18.0 % (11.6-17.2) Platelet Count 286 TH/MM3 (150-450) Mean Platelet Volume 8.7 FL (7.0-11.0) Neutrophils (%) (Auto) 70.7 % (16.0-70.0) Lymphocytes (%) (Auto) 10.3 % (9.0-44.0) Monocytes (%) (Auto) 11.6 % (0.0-8.0) Eosinophils (%) (Auto) 6.8 % (0.0-4.0) Basophils (%) (Auto) 0.6 % (0.0-2.0) Neutrophils # (Auto) 7.6 TH/MM3 (1.8-7.7) Lymphocytes # (Auto) 1.1 TH/MM3 (1.0-4.8) Monocytes # (Auto) 1.2 TH/MM3 (0-0.9) Eosinophils # (Auto) 0.7 TH/MM3 (0-0.4) Basophils # (Auto) 0.1 TH/MM3 (0-0.2) CBC Comment DIFF FINAL Differential Comment Blood Urea Nitrogen 25 MG/DL (7-18) Creatinine 5.89 MG/DL (0.50-1.00) Random Glucose 61 MG/DL (74-106) Total Protein 5.9 GM/DL (6.4-8.2) Albumin 1.5 GM/DL (3.4-5.0) Calcium Level 7.1 MG/DL (8.5-10.1) Alkaline Phosphatase 93 U/L (45-117) Aspartate Amino Transf (AST/SGOT) 24 U/L (15-37) Alanine Aminotransferase (ALT/SGPT) LESS THAN 6 U/L (10-53) Total Bilirubin 0.2 MG/DL (0.2-1.0) Sodium Level 140 MEQ/L (136-145) Potassium Level 4.5 MEQ/L (3.5-5.1) Chloride Level 102 MEQ/L (98-107) Carbon Dioxide Level 29.5 MEQ/L (21.0-32.0) Anion Gap 9 MEQ/L (5-15) Estimat Glomerular Filtration Rate 9 ML/MIN (>89) Protein Corrected Calcium 7.7 MG/DL (8.5-10.1) Result Diagram: 09/22/17 0635 09/22/17 0635 Amalia De La Cruz MD Sep 22, 2017 11:02
[2017-09-22] MEDS: oxyCODONE/ACETAMINOPHEN 5 MG/325 MG TAB PO PRN (11:56)
[2017-09-22] MEDS: SODIUM CHLORIDE 0.9% FLUSH 10 ML FLUSH IV FLUSH SCH ×2 (13:32→21:37)
[2017-09-22] MEDS: MIRTAZAPINE 15 MG TAB PO SCH (21:36)
[2017-09-22] MEDS: hydrOXYzine HCL 25 MG TAB PO SCH (21:37)
[2017-09-23] VITALS (7 sets, daily range): BP systolic 121–146; BP diastolic 58–66; PULSE 77–84; RESP 17–20; TEMP 97.2–100.4; O2SAT 92–100
[2017-09-23] MEDS: LEVOTHYROXINE SODIUM 75 MCG TAB PO SCH (06:22)
[2017-09-23] MEDS: PIPERACIL-TAZO 2.25 GM PREMIX 50 ML IV SCH ×3 (06:22→21:05)
[2017-09-23 07:58] LABS: AUTOMATED NEUTROPHIL # 6.6 TH/MM3 (1.8-7.7); BASOPHIL % 0.4 % (0.0-2.0); EOSINOPHIL # 0.8 TH/MM3 (0-0.4); EOSINOPHIL % 7.9 % (0.0-4.0); HEMATOCRIT 23.6 % (35.0-46.0); HEMOGLOBIN 7.7 GM/DL (11.6-15.3); LYMPH % 17.2 % (9.0-44.0); LYMPHOCYTE # 1.8 TH/MM3 (1.0-4.8); MEAN CELL VOLUME 86.7 FL (80.0-100.0); MEAN CORPUSCULAR HEMOGLOBIN 28.4 PG (27.0-34.0); MEAN CORPUSCULAR HGB CONC 32.8 % (32.0-36.0); MEAN PLATELET VOLUME 8.6 FL (7.0-11.0); MONO % 12.7 % (0.0-8.0); MONOCYTE # 1.3 TH/MM3 (0-0.9); NEUT % 61.8 % (16.0-70.0); PLATELET COUNT 338 TH/MM3 (150-450); RED BLOOD COUNT 2.72 MIL/MM3 (4.00-5.30); RED CELL DISTRIBUTION WIDTH 17.5 % (11.6-17.2); WHITE BLOOD COUNT 10.6 TH/MM3 (4.0-11.0)
[2017-09-23 08:18] LABS: BICARBONATE 31.3 MEQ/L (21.0-32.0); CALCIUM 8.3 MG/DL (8.5-10.1); CREATININE 7.58 MG/DL (0.50-1.00)
[2017-09-23] MEDS: PANTOPRAZOLE SODIUM 40 MG VIAL IV PUSH SCH ×2 (08:22→21:09)
[2017-09-23] MEDS: hydrALAZINE HCL 25 MG TAB PO SCH ×2 (08:22→21:00)
[2017-09-23] MEDS: SEVELAMER CARBONATE 800 MG TAB PO SCH ×3 (08:23→17:25)
[2017-09-23] MEDS: VITAMIN B CMPLX/VITC/FOLIC AC CAP PO SCH (08:23)
[2017-09-23] MEDS: DOCUSATE SODIUM 50 MG/SENNA 8.6 MG TAB PO SCH ×2 (08:24→21:00)
[2017-09-23] MEDS: SODIUM CHLORIDE 0.9% FLUSH 10 ML FLUSH IV FLUSH SCH ×2 (08:31→21:11)
--- NOTE | 2017-09-23 08:50 | HHI.FPPN ---
Objective Vitals Vital Signs Date Time Temp Pulse Resp B/P (MAP) Pulse Ox O2 Delivery O2 Flow Rate FiO2 09/23/17 08:00 98.0 81 17 146/66 (92) 100 09/23/17 04:29 97.2 78 18 126/60 (82) 92 09/23/17 00:45 98.7 77 18 121/60 (80) 97 09/23/17 00:00 78 09/22/17 20:30 92 Nasal Cannula 2.00 09/22/17 20:00 82 09/22/17 20:00 97.4 82 18 123/55 (77) 92 09/22/17 16:00 98.5 79 20 115/56 (75) 99 09/22/17 15:12 80 09/22/17 12:00 97.2 84 19 139/63 (88) 100 I/O 09/22/17 09/22/17 09/22/17 09/23/17 09/23/17 09/23/17 07:00 15:00 23:00 07:00 15:00 23:00 Intake Total 480 ml 120 ml 1050 ml 120 ml Output Total 310 ml 790 ml 140 ml Balance 480 ml -190 ml 260 ml -140 ml 120 ml Intake Oral 480 ml 120 ml 1000 ml 120 ml IV Total 50 ml Output Urine Total 700 ml 0 ml Drainage Total 310 ml 90 ml 140 ml # Voids 1 # Bowel Movements 2 3 Result Diagram: 09/23/1772509/23/17725 Objective Remarks GEN: Well-developed, well-nourished patient. No acute distress. CV: Regular rate and rhythm without obvious murmurs LUNGS: Coarse breath sounds with rhonchi bilaterally, prolonged expiratory phase GI: nondistended, soft, TTP throughout, abdominal binder in place. EXT: No edema, chronic venous stasis changes, present. No calf tenderness. Right foot wrapped in Sarath bandage. Clean and dry. NEURO/PSYCH: Awake, alert. Appropriate insight and judgment. Normal speech A/P Assessment and Plan 72 y/o with chronic history of HTN, DM, ESRD, chronic foot wounds presents from podiatry clinic for evaluation. Admitted for osteomyelitis with debridement and possible amputation. Developed a GI bleed during hospitalization. Repeat colonoscopy was performed on 09/13/2017 with no bleeding source identified. Hemicolectomy performed 09/18/2017. Discharge Planning Undetermined at this time, pending definitive treatment of osteomyelitis. Problem List: (1) GI bleed ICD Codes: K92.2 - Gastrointestinal hemorrhage, unspecified Status: Acute Plan: Repeat colonoscopy on 09/13/2017. Results as follows: 1. Moderate diverticulosis was noted in the sigmoid colon 2. Blood throughout the colon but no active site of bleeding seen. suspect diverticular bleed. 3. A sessile polyp ranging between 3-5mm in size was found in the sigmoid colon ; polypectomy was performed with cold forceps Hemoglobin 6.9 on 09/18/2017 - given another unit of PRBCs on 09/18/17 in AM prior to surgery. PLAN: S/P hemicolectomy with surgical anastomosis. H&H stable x 24 hours. Continue IV Protonix 40 mg IV BID. Advance diet at discretion of surgery. Pain control with IV Morphine 4 mg q 4 pain 1-10, and 2 mg IV for breakthrough q 3 hours. Titrate as tolerated and to pain level. Monitor vitals. Aggressive PT as tolerated. (2) Hypoglycemia ICD Codes: E16.2 - Hypoglycemia, unspecified Plan: BG of 40 on 09/12/2017 - Corrected with hypoglycemia protocol. More recently 52, on 09/20/2017. Given another AMP of D50W, and corrected to 213 mg/ dL. Patient is NPO. Continue with Accu-Cheks at 0800 hrs., 1200 hrs., 1700 hrs., and 2100 hrs. (3) Osteomyelitis of ankle or foot, right, acute ICD Codes: M86.171 - Other acute osteomyelitis, right ankle and foot Status: Acute Plan: MRI significant for osteomyelitis and multiple bones of the foot and ankle. Is scheduled next week for a below the knee amputation on the right, by Dr. Reaves. -Wound cultures showing Corynebacterium sp. -Blood cultures NGTD Podiatry consulted: appreciate recommendations * 09/07/17: Debridement of ulcers on right foot/ankle 3 * Plan on 09/[address] Reaves - postponed secondary to acute gastrointestinal bleeding. Focus is on GI bleed for now per Dr. Reaves Vascular consulted: appreciate recommendations * Pt with severe vascular changes, diabetic neuropathy Imaging: * MRI foot: Osteomyelitis develop at the fifth metatarsal base. Slight worsening osteomyelitis of the great toe head of the proximal phalanx and distal half of the distal phalanx. Worsening osteomyelitis of the fibular sesamoid. The superficial osteomyelitis of the tibial sesamoid not significantly changed. No drainable abscess. * MRI ankle: Severe soft tissue ulceration laterally and posteromedially of the ankle/hindfoot. Fluid collection in the posterior lateral gutter, potentially an abscess. Osteomyelitis of the calcaneus. Osteomyelitis of the distal fibula possible osteomyelitis focally of the posterior medial aspect of the talus. * Foot x-ray: Osteopenia, no acute bony abnormality. Medications * Vancomycin (09/06- per nephrology dosing/titration * Zosyn (09/07- (4) ESRD (end stage renal disease) on dialysis ICD Codes: N18.6 - End stage renal failure on dialysis; Z99.2 - Dependence on renal dialysis Status: Chronic Plan: Dialysis Saturday, Saturday, Saturday typically. Sees Dr. Buchanan, home care assistant outpatient. No urine output Nephrology consulted: Appreciate recommendations * Resume dialysis 3x/wk * Monitor phosphorus intermittently, use binders as appropriate. * Fluid restriction (5) Diabetes mellitus ICD Codes: E11.9 - Type 2 diabetes mellitus without complications Status: Chronic Plan: History of long-term diabetes on insulin at home -Sliding scale insulin -Monitor accuchecks (6) Hypertension ICD Codes: I10 - Hypertension Status: Chronic Plan: BP better controlled with addition of hydralazine 25 mg BID. Cont home amlodipine. (7) Hypothyroidism ICD Codes: E03.9 - Hypothyroidism Status: Chronic Plan: Continue home Synthroid. (8) FEN Status: Acute Plan: Fluids: D/c ivf. No signs of fluid overload on exam this AM. Electrolytes: monitor, replace PRN. Nutrition: As guided by GI DVT ppx: hold chemoppx due to surgery, SCDs DW Dr. 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
--- NOTE | 2017-09-23 10:17 | PD.CAR.PN ---
CVT Progress Note Subjective/Hospital Course: Consult received Full dictation to follow For podiatry debridement Saturday and after that we will evaluate as far as salvageability of the leg is concerned Thanks Jean Paul 09/09/17 Patient with severe peripheral vascular disease gangrene of the right heel and osteomyelitis Every effort has been made by podiatry to salvage the foot and there are no other options left I agree with Dr. Galvez and Dr. Nadir Mello, and the only option at this time is right below-knee amputation Patient scheduled for right below-knee amputation with second and third opinion of additional 2 physicians Today's BKA has to be canceled due to the fact that patient's hemoglobin is 6.7 and due to logistical reasons transfusion of 2 units PRBC was not not administered prior to taking patient to the operating room this afternoon. Considering this is purely elective procedure I believe it's safe and appropriate to transfuse this patient in peace and do surgery tomorrow Patient scheduled for right BKA tomorrow 09/10/17 Patient was initially rescheduled for surgery today however she had some bright red blood per rectum and surgery is now canceled GI bleeding takes precedence and patient will need a full workup on this issue before proceed with amputation If patient needs some gastrointestinal surgery or general surgical intervention I will be available and we'll continue to follow patient Once everything resolved we will reconsider the amputation issue 09/11/17 Hemoglobin again down to 6.9 g/dL as a result of GI bleeding Completely agree with medicine and gastroenterology approach and plan No clear site of bleeding and identified and this is often a problem in patients who have multiple pathologies, all of which could be attributing to the bleeding process including diverticular disease AVM malformations and such Most of these bleeds will see his on the round and only about 10-15% of patients will require actual surgery for the same. Precise identification of the bleeding site being the right or the left colon is imperative should patient require surgery for continuous bleeding, for knowing in their and having to do subtotal colectomy on this lady would double the mortality as opposed only removing the right or the left colon. Sometimes however we cannot identify the bleeding site and then subtotal colectomy remains the only option. Will continue follow patient which you and if patient require surgery I will be available to preform it. As far as the leg is concerned, amputation is now a secondary issue and will not be undertaken until the above issues are resolved and treated satisfactorily. 09/12/17 Patient currently stabilized from GI bleeding Hemoglobin is now stable Angiogram is negative for bleeding but that the requires at least the bleeding of 3 cc/minute to show up On the other hand no clear scan does reveal bleeding which in this case looks like transverse colon Majority of these bleeds will stop on the round with good supportive therapy and patient doesn't need further interventions On the other hand if the patient gets up to 6-8 units of blood transfusions than the risk of surgery is by far exceeded by the risk of repeated transfusions and then surgery is indicated We'll see how patient does and recommend as we go along Discussed with Dr Mi 09/13/17 Patient with diverticulosis and the likely transverse to left colon bleed Agree with Dr. Mi as to the site of bleeding Abdomen is soft active bowel sounds the patient appears to be stable She dropped her hemoglobin bit yesterday he received 1 more units of blood and now it's up again Patient is now 5 units PRBC later and the another unit or 2 and then we'll have to take patient to the operating room for extended left colectomy if this doesn't stop because then the risk of bleeding and problems with transfusion exceeds the risk of surgery We'll see the patient does through the weekend but she is close to needing surgery at this time 09/14/17 Patient doing okay now Abdomen is soft active bowel sounds Hemoglobin appears to be relatively stable between 9 and 8 g/dL and holding. As noted above patient has received 5 units of PRBCs up to now and once we get to point of 67 or 8 units and patient continues to lose blood, then the risk of surgery is less than the risk of repeated transfusions and at that point patient would need left colectomy. Discussed with Dr. Mi and we agree on being very conservative in this situation and doing everything to avoid surgery in this lady. Will continue to follow 09/15/17 Patient had some bleeding last night and hemoglobin was repeated to come back at 10 g/dL This was clearly old blood yet this morning hemoglobin is 8.1 g/dL some believe that former number was probably incorrect last night Patient doesn't appear to have active bleeding If she requires more blood and starts bleeding again should definitely go to the operating room from extended left colectomy At this point would advance to the diet and allow patient to eat and see how she does There is a high likelihood that patient will require left colon resection which of course is a procedure associated with some degree morbidity in this elderly lady. 09/16/17 Patient doing well at this time Abdomen soft active bowel sounds tolerates diet No more fresh or maroon blood per rectum Hemoglobin remains relatively stable between 7.5 and 8 g/dL Continue observation if patient drops hemoglobin 1 more time and starts bleeding she'll be going to the operating room for extended left colectomy 09/17/2017 Patient still passing clots some of the same I liquid blood and some more formed some maroon than some fresh At this point case discussed at length with medical attending and decision is made that this patient eventually clearly need surgery. I have discussed this with patient at length and she is reluctant to have surgery if she needs a colostomy, which is very unlikely but not completely excluded Patient will be cleaned out with GoLYTELY prep and is scheduled tomorrow for extended left colectomy with primary anastomosis 09/19/2017 Patient is status post extended left colectomy with low anterior anastomosis yesterday Incision clean and dry and abdomen is soft with few bowel sounds Of course no gas yet keep n.p.o. but for medications Patient can be out of bed with a binder Continue current care Patient can transfer to floor from my point any time 09/20/2017 Patient is still in ICU but as above noted yesterday from surgical point patient can transfer to floor anytime Perhaps there were no beds available Patient is doing well Abdomen is soft hypoactive bowel sounds incision is clean and dry Patient should get aggressive physical therapy to prevent her from being bedridden in the future We will advance to full liquids and from there as tolerated to diet It should be noted that this patient will still require below-knee amputation as she was originally the consult for the same However I do not want to put 2 surgeries to close together and I would allow patient to recover from this first Next surgery should probably not be done before middle or end of next week 09/21/2017 Patient doing well at this time Abdomen is soft with hypoactive bowel sounds incision is clean and dry Tolerates full liquids I would probably wait for another day or so before advancing diet further considering her frail state and degree of ileus This patient has low anterior resection and therefore should absolutely not receive any medication per rectum suppositories, enemas and such because this could disrupt the anastomosis. Any rectal manipulations or medications are absolutely contraindicated! Recommend Patient should probably get 1 unit of blood with next dialysis but there is no reason to keep the hemoglobin around 7 despite the fact that she is not bleeding anymore In addition patient sugar seems to be however around 50 and 70 and in face of decreased p.o. intake would be advisable to decrease the insulin administration until patient is back on full diet. I wrote her have patient hyperglycemic for a day or 2 then severely hypoglycemic even once which can be fatal For below-knee amputation next week 09/22/2017 Incision is clean and dry Abdomen is soft and nondistended Apparently patient vomited this morning. Patient has more than one reason to have prolonged ileus including renal failure, age bedridden status while in addition to surgery and narcotics administration Patient is awake but somewhat somnolent She truly needs to be more out of bed because whenever I come to visit the patient is laying in bed She should be aggressively moves around placed in chair and encouraged to deep breathe and move her legs even in the sitting position for otherwise she will have a prolonged ileus and will not do well in the and In addition I encouraged decreasing the dose of narcotics for this elderly lady 09/23/2017 Patient doing well at this time Abdomen soft active bowel sounds Tolerating diet well Hemoglobin stable Other medical nonrelated issues being addressed By the end of the week we will schedule patient for below-knee amputation all things equal Objective: Vital Signs Date Time Temp Pulse Resp B/P (MAP) Pulse Ox O2 Delivery O2 Flow Rate FiO2 09/23/17 08:00 98.0 81 17 146/66 (92) 100 09/23/17 04:29 97.2 78 18 126/60 (82) 92 09/23/17 00:45 98.7 77 18 121/60 (80) 97 09/23/17 00:00 78 09/22/17 20:30 92 Nasal Cannula 2.00 09/22/17 20:00 82 09/22/17 20:00 97.4 82 18 123/55 (77) 92 09/22/17 16:00 98.5 79 20 115/56 (75) 99 09/22/17 15:12 80 09/22/17 12:00 97.2 84 19 139/63 (88) 100 Labs: Laboratory Tests Test 09/23/17 07:26 White Blood Count 10.6 TH/MM3 (4.0-11.0) Red Blood Count 2.72 MIL/MM3 (4.00-5.30) Hemoglobin 7.7 GM/DL (11.6-15.3) Hematocrit 23.6 % (35.0-46.0) Mean Corpuscular Volume 86.7 FL (80.0-100.0) Mean Corpuscular Hemoglobin 28.4 PG (27.0-34.0) Mean Corpuscular Hemoglobin Concent 32.8 % (32.0-36.0) Red Cell Distribution Width 17.5 % (11.6-17.2) Platelet Count 338 TH/MM3 (150-450) Mean Platelet Volume 8.6 FL (7.0-11.0) Neutrophils (%) (Auto) 61.8 % (16.0-70.0) Lymphocytes (%) (Auto) 17.2 % (9.0-44.0) Monocytes (%) (Auto) 12.7 % (0.0-8.0) Eosinophils (%) (Auto) 7.9 % (0.0-4.0) Basophils (%) (Auto) 0.4 % (0.0-2.0) Neutrophils # (Auto) 6.6 TH/MM3 (1.8-7.7) Lymphocytes # (Auto) 1.8 TH/MM3 (1.0-4.8) Monocytes # (Auto) 1.3 TH/MM3 (0-0.9) Eosinophils # (Auto) 0.8 TH/MM3 (0-0.4) Basophils # (Auto) 0.0 TH/MM3 (0-0.2) CBC Comment DIFF FINAL Differential Comment Blood Urea Nitrogen 35 MG/DL (7-18) Creatinine 7.58 MG/DL (0.50-1.00) Random Glucose 58 MG/DL (74-106) Calcium Level 8.3 MG/DL (8.5-10.1) Sodium Level 139 MEQ/L (136-145) Potassium Level 4.5 MEQ/L (3.5-5.1) Chloride Level 100 MEQ/L (98-107) Carbon Dioxide Level 31.3 MEQ/L (21.0-32.0) Anion Gap 8 MEQ/L (5-15) Estimat Glomerular Filtration Rate 6 ML/MIN (>89) Result Diagram: 09/23/17 0726 09/23/17 0726 Amalia De La Cruz MD Sep 23, 2017 10:16
--- NOTE | 2017-09-23 11:28 | HHI.NPPN ---
Subjective General Problems: Anemia Renal Failure: Chronic, End Stage Renal Disease History of Present Illness Seen during dialysis. No new concerns. Had BM over the weekend. Additional Remarks Sitting at side of bed eating breakfast. Denies any SOB. No edema (Teresa Parekh) Review of Systems General Constitutional: Fatigue (Teresa Parekh) Respiratory Respiratory Remarks Denies any SOB (Teresa Parekh) Cardiovascular Cardiac Remarks Denies any CP (Teresa Parekh) Gastrointestinal Gastrointestinal: Blood/Tarry Stools (Teresa Parekh) Musculoskeletal MS: Pain/Stiffness (Teresa Parekh) Skin Skin: Ulcers (Teresa Parekh) Psych Psych: Depression (Teresa Parekh) Objective Data Data 09/23/17 09/24/17 19:00 07:00 Intake Total 120 ml Balance 120 ml Intake Oral 120 ml Vital Signs Date Time Temp Pulse Resp B/P (MAP) Pulse Ox O2 Delivery O2 Flow Rate FiO2 09/23/17 08:00 98.0 81 17 146/66 (92) 100 09/23/17 04:29 97.2 78 18 126/60 (82) 92 09/23/17 00:45 98.7 77 18 121/60 (80) 97 09/23/17 00:00 78 09/22/17 20:30 92 Nasal Cannula 2.00 09/22/17 20:00 82 09/22/17 20:00 97.4 82 18 123/55 (77) 92 09/22/17 16:00 98.5 79 20 115/56 (75) 99 09/22/17 15:12 80 09/22/17 12:00 97.2 84 19 139/63 (88) 100 (Teresa Parekh) -: 09/23/17 0726 09/23/17 0726 Physical Exam General Appearance: Well Developed, No Acute Distress, Comfortable, Malnourished (Teresa Parekh) Eyes Eye Exam: Pupils Equal (Teresa Parekh) Throat Throat Exam: Oral Mucosa [place] & Moist (Teresa Parekh) Neck Neck Exam: Neck Supple (Teresa Parekh) Pulmonary Resp Exam: Clear Bilaterally, Breath Sounds Equal (Teresa Parekh) Cardiology CV Exam: Regular, Normal Sinus Rhythm, Good Perfusion (Teresa Parekh) Gastrointestinal/Abdomen GI Exam: Soft, Non-Tender, Positive Bowel Movement, Bowel Sounds Hypoactive GI Remarks Abdominal binder in place, hypoactive BS, tender to palpation (Teresa Parekh) Musculoskeletal MS Exam: Normal Tone, Good Strength (Teresa Parekh) Integumentary Skin Exam: Warm, Dry Skin Remarks right foot ulcer, dressing in place. (Teresa Parekh) Extremeties Extremities Exam: No Edema Extremeties Remarks Left arm AVF + bruit/thrill (Teresa Parekh) Neurologic Neuro Exam: Alert, Awake, Oriented, Speech Clear, Moving All Extremities (Teresa Parekh) Psychiatric Psych Exam: Appropriate Responses (Teresa Parekh) Assessment/Plan Discussed Condition With: Patient Assessment Summary: Anemia of CKD, Hypertension, End Stage Renal Disease Problem List: (1) ESRD (end stage renal disease) on dialysis ICD Codes: N18.6 - End stage renal failure on dialysis; Z99.2 - Dependence on renal dialysis Status: Chronic Plan: Seen during dialysis on a 2K, 350 BFR, goal 2L Continue HD MWF Intermittently monitor renal profile. Continue current plan. Left arm AVF functions well. Continue phosphorus binders with meals. (2) GI bleed ICD Codes: K92.2 - Gastrointestinal hemorrhage, unspecified Status: Acute Plan: GI and general surgery following, s/p L hemicolectomy Follow H/H (3) Anemia ICD Codes: D64.9 - Anemia, unspecified Status: Acute Plan: Transfused 6 units since admission On Epogen with dialysis.Given venofer. (4) Foot ulcer, right ICD Codes: L97.519 - Non-pressure chronic ulcer of other part of right foot with unspecified severity Status: Acute Plan: s/p debridement. will require BKA Vascular surgery following. On Zosyn and vancomycin. (5) Metabolic bone disease ICD Codes: E88.9 - Metabolic disorder, unspecified; M90.80 - Osteopathy in diseases classified elsewhere, unspecified site Status: Acute Plan: monitor phosphorus intermittently. continue Renvela (6) Hypertension ICD Codes: I10 - Hypertension Status: Chronic Plan: monitor BP, continue medications. (7) Diabetes mellitus ICD Codes: E11.9 - Type 2 diabetes mellitus without complications Status: Chronic Plan: Continue insulin coverage while hospitalized, maintain blood glucose between 140 and 180. Use D10 @ 20 while NPO. (Teresa Parekh) Plan patient was seen and examined. Agree with above assessment and plan. 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
[2017-09-23] MEDS: INSULIN ASPART SUPPLEMENTAL SCALE SQ SCH ×3 (12:00→21:00)
--- NOTE | 2017-09-23 12:11 | HHI.FPPN ---
Subjective Remarks Patient feeling "good." Did not eat dinner last night because she did not have an appetite. Had 2 BMS yesterday that were normal formed and without blood per the patient. She denies any new symptoms. Seen in dialysis. (Jesus Mendiola MD, R3) Objective Vitals Vital Signs Date Time Temp Pulse Resp B/P (MAP) Pulse Ox O2 Delivery O2 Flow Rate FiO2 09/23/17 08:00 98.0 81 17 146/66 (92) 100 09/23/17 04:29 97.2 78 18 126/60 (82) 92 09/23/17 00:45 98.7 77 18 121/60 (80) 97 09/23/17 00:00 78 09/22/17 20:30 92 Nasal Cannula 2.00 09/22/17 20:00 82 09/22/17 20:00 97.4 82 18 123/55 (77) 92 09/22/17 16:00 98.5 79 20 115/56 (75) 99 09/22/17 15:12 80 I/O 09/22/17 09/22/17 09/22/17 09/23/17 09/23/17 09/23/17 07:00 15:00 23:00 07:00 15:00 23:00 Intake Total 480 ml 120 ml 1050 ml 120 ml Output Total 310 ml 790 ml 140 ml Balance 480 ml -190 ml 260 ml -140 ml 120 ml Intake Oral 480 ml 120 ml 1000 ml 120 ml IV Total 50 ml Output Urine Total 700 ml 0 ml Drainage Total 310 ml 90 ml 140 ml # Voids 1 # Bowel Movements 2 3 (Jesus Mendiola MD, R3) Result Diagram: 09/23/1772509/23/17725 Objective Remarks GEN: Well-developed, well-nourished patient. No acute distress. CV: Regular rate and rhythm without obvious murmurs LUNGS: Coarse breath sounds with rhonchi bilaterally, prolonged expiratory phase GI: nondistended, soft, TTP throughout, abdominal binder in place. EXT: No edema, chronic venous stasis changes, present. No calf tenderness. Right foot wrapped in Sarath bandage. Clean and dry. NEURO/PSYCH: Awake, alert. Appropriate insight and judgment. Normal speech (Jesus Mendiola MD, R3) A/P Assessment and Plan 72 y/o with chronic history of HTN, DM, ESRD, chronic foot wounds presents from podiatry clinic for evaluation. Admitted for osteomyelitis with debridement and possible amputation. Developed a GI bleed during hospitalization. Repeat colonoscopy was performed on 09/13/2017 with no bleeding source identified. Hemicolectomy performed 09/18/2017. Discharge Planning Will need BTK amputation later this week once stable postoperatively from hemicolectomy. Will need SNF after BTK amputation. (Jesus Mendiola MD, R3) Attending Attestation Patient seen and examined with Dr. Mendiola. Tolerating by mouth , Permissive hyperglycemia is appropriate, see resident documentation for additional findings and disposition (Anel Blair MD) Problem List: (1) GI bleed ICD Codes: K92.2 - Gastrointestinal hemorrhage, unspecified Status: Acute Plan: Repeat colonoscopy on 09/13/2017. Results as follows: 1. Moderate diverticulosis was noted in the sigmoid colon 2. Blood throughout the colon but no active site of bleeding seen. suspect diverticular bleed. 3. A sessile polyp ranging between 3-5mm in size was found in the sigmoid colon ; polypectomy was performed with cold forceps Hemoglobin 6.9 on 09/18/2017 - given another unit of PRBCs on 09/18/17 in AM prior to surgery. PLAN: S/P hemicolectomy with surgical anastomosis. Had 2 BMs on 09/22/2017. H&H stable x 24 hours. Continue IV Protonix 40 mg IV BID. Advance diet at discretion of surgery. Pain control with [place] 5-325 mg q 4 hours Pain 1-10. Morphin 2 mg IV push q 3 hours for breakthrough pain. Titrate as tolerated and to pain level. Monitor vitals. Aggressive PT as tolerated. (2) Hypoglycemia ICD Codes: E16.2 - Hypoglycemia, unspecified Plan: Persistent. AM glucose on BMP was 58. Pt did not eat dinner. Requesting meat-loaf for lunch. Glucose bedside this AM, 94. Continue with Accu-Cheks at 0800 hrs., 1200 hrs., 1700 hrs., and 2100 hrs. Low dose insulin sliding scale starting at BG > 200. (3) Osteomyelitis of ankle or foot, right, acute ICD Codes: M86.171 - Other acute osteomyelitis, right ankle and foot Status: Acute Plan: MRI significant for osteomyelitis and multiple bones of the foot and ankle. Is scheduled next week for a below the knee amputation on the right, by Dr. Reaves. -Wound cultures showing Corynebacterium sp. -Blood cultures NGTD Podiatry consulted: appreciate recommendations * 09/07/17: Debridement of ulcers on right foot/ankle 3 * Plan on 09/[address] Reaves - postponed secondary to acute gastrointestinal bleeding. Rescheduled for later this week. Vascular consulted: appreciate recommendations * Pt with severe vascular changes, diabetic neuropathy Imaging: * MRI foot: Osteomyelitis develop at the fifth metatarsal base. Slight worsening osteomyelitis of the great toe head of the proximal phalanx and distal half of the distal phalanx. Worsening osteomyelitis of the fibular sesamoid. The superficial osteomyelitis of the tibial sesamoid not significantly changed. No drainable abscess. * MRI ankle: Severe soft tissue ulceration laterally and posteromedially of the ankle/hindfoot. Fluid collection in the posterior lateral gutter, potentially an abscess. Osteomyelitis of the calcaneus. Osteomyelitis of the distal fibula possible osteomyelitis focally of the posterior medial aspect of the talus. * Foot x-ray: Osteopenia, no acute bony abnormality. Medications * Vancomycin (09/06- per nephrology dosing/titration * Zosyn (09/07- (4) ESRD (end stage renal disease) on dialysis ICD Codes: N18.6 - End stage renal failure on dialysis; Z99.2 - Dependence on renal dialysis Status: Chronic Plan: Dialysis Saturday, Saturday, Saturday typically. Sees Dr. Buchanan, director clinical research outpatient. No urine output Nephrology consulted: Appreciate recommendations * Resume dialysis 3x/wk * Monitor phosphorus intermittently, use binders as appropriate. * Fluid restriction (5) Diabetes mellitus ICD Codes: E11.9 - Type 2 diabetes mellitus without complications Status: Chronic Plan: History of long-term diabetes on insulin at home -Sliding scale insulin -Monitor accuchecks (6) Hypertension ICD Codes: I10 - Hypertension Status: Chronic Plan: BP better controlled with addition of hydralazine 25 mg BID. Cont home amlodipine. (7) Hypothyroidism ICD Codes: E03.9 - Hypothyroidism Status: Chronic Plan: Continue home Synthroid. (8) FEN Status: Acute Plan: Fluids: D/c ivf. No signs of fluid overload on exam this AM. Electrolytes: monitor, replace PRN. Nutrition: As guided by GI DVT ppx: hold chemoppx due to surgery, SCDs DW Dr. Sandhu (Jesus Mendiola MD, R3) Problem Qualifiers (1) GI bleed: Qualified Codes: K57.91 - Diverticulosis of intestine, part unspecified, without perforation or abscess with bleeding (2) Diabetes mellitus: Qualified Codes: E11.42 - Type 2 diabetes mellitus with diabetic polyneuropathy ; Z79.4 - [facility]FP (current) use of insulin (3) Hypertension: Qualified Codes: I10 - Essential (primary) hypertension (4) Hypothyroidism: Qualified Codes: E03.9 - Hypothyroidism, unspecified Jesus Mendiola MD, R3 Sep 23, 2017 12:11 Anel Blair MD Sep 23, 2017 18:27
[2017-09-23] MEDS: MIRTAZAPINE 15 MG TAB PO SCH (21:06)
[2017-09-23] MEDS: hydrOXYzine HCL 25 MG TAB PO SCH (21:06)
[2017-09-23] MEDS: oxyCODONE/ACETAMINOPHEN 5 MG/325 MG TAB PO PRN (22:27)
[2017-09-24] VITALS (7 sets, daily range): BP systolic 117–158; BP diastolic 59–69; PULSE 75–85; RESP 16–20; TEMP 97.7–98.7; O2SAT 92–99
[2017-09-24] MEDS: LEVOTHYROXINE SODIUM 75 MCG TAB PO SCH (05:20)
[2017-09-24] MEDS: PIPERACIL-TAZO 2.25 GM PREMIX 50 ML IV SCH ×3 (05:22→21:31)
[2017-09-24 08:00] LABS: AUTOMATED NEUTROPHIL # 6.3 TH/MM3 (1.8-7.7); BASOPHIL % 0.4 % (0.0-2.0); EOSINOPHIL # 0.7 TH/MM3 (0-0.4); EOSINOPHIL % 6.7 % (0.0-4.0); HEMATOCRIT 21.8 % (35.0-46.0); HEMOGLOBIN 7.3 GM/DL (11.6-15.3); LYMPH % 16.2 % (9.0-44.0); LYMPHOCYTE # 1.6 TH/MM3 (1.0-4.8); MEAN CELL VOLUME 85.7 FL (80.0-100.0); MEAN CORPUSCULAR HEMOGLOBIN 28.7 PG (27.0-34.0); MEAN CORPUSCULAR HGB CONC 33.5 % (32.0-36.0); MEAN PLATELET VOLUME 8.4 FL (7.0-11.0); MONO % 12.3 % (0.0-8.0); MONOCYTE # 1.2 TH/MM3 (0-0.9); NEUT % 64.4 % (16.0-70.0); PLATELET COUNT 275 TH/MM3 (150-450); RED BLOOD COUNT 2.54 MIL/MM3 (4.00-5.30); RED CELL DISTRIBUTION WIDTH 18.2 % (11.6-17.2); WHITE BLOOD COUNT 9.8 TH/MM3 (4.0-11.0)
[2017-09-24] MEDS: INSULIN ASPART SUPPLEMENTAL SCALE SQ SCH ×4 (08:00→21:00)
--- NOTE | 2017-09-24 08:00 | HHI.FPPN ---
Subjective Remarks Doing well. Eating normally without problems. 7/10 abdominal pain today. 5/10 with pain medications. Did not tolerate morphine well. Had normal formed BM today without blood. Walked with walker to bedside chair today with assistance. Also using incentive spirometer and doing leg exercises. Does not like Nephro protein drinks because they cause her to have diarrhea. (Jesus Mendiola MD, R3) Objective Vitals Vital Signs Date Time Temp Pulse Resp B/P (MAP) Pulse Ox O2 Delivery O2 Flow Rate FiO2 09/24/17 04:00 97.9 80 18 143/69 (93) 99 09/24/17 00:27 81 09/24/17 00:00 98.7 85 20 130/60 (83) 96 09/23/17 21:17 99.8 09/23/17 20:00 100.4 83 20 121/58 (79) 94 09/23/17 16:00 97.8 84 19 142/66 (91) 99 I/O 09/23/17 09/23/17 09/23/17 09/24/17 09/24/17 09/24/17 07:00 15:00 23:00 07:00 15:00 23:00 Intake Total 120 ml 810 ml 290 ml Output Total 140 ml 2210 ml 120 ml 100 ml Balance -140 ml -2090 ml 690 ml 190 ml Intake Oral 120 ml 760 ml 240 ml IV Total 50 ml 50 ml Output Urine Total 0 ml Drainage Total 140 ml 210 ml 120 ml 100 ml Hemodialysis 2000 ml # Voids 0 # Bowel Movements 1 0 (Jesus Mendiola MD, R3) Result Diagram: 09/23/1772509/23/17725 Objective Remarks GEN: Well-developed, well-nourished patient. No acute distress. CV: Regular rate and rhythm without obvious murmurs LUNGS: Coarse breath sounds with rhonchi bilaterally, prolonged expiratory phase GI: nondistended, soft, TTP throughout, abdominal binder in place. EXT: No edema, chronic venous stasis changes, present. No calf tenderness. Right foot wrapped in Sarath bandage. Clean and dry. NEURO/PSYCH: Awake, alert. Appropriate insight and judgment. Normal speech (Jesus Mendiola MD, R3) A/P Assessment and Plan 72 y/o with chronic history of HTN, DM, ESRD, chronic foot wounds presents from podiatry clinic for evaluation. Admitted for osteomyelitis with debridement and possible amputation. Developed a GI bleed during hospitalization. Repeat colonoscopy was performed on 09/13/2017 with no bleeding source identified. Hemicolectomy performed 09/18/2017. Discharge Planning Will need BTK amputation later this week once stable postoperatively from hemicolectomy. Will need SNF after BTK amputation. (Jesus Mendiola MD, R3) Attending Attestation Patient seen and examined with Dr Mendiola this am. Agree with plan of care as discussed with me and documented in the resident note. (Anel Blair MD) Problem List: (1) GI bleed ICD Codes: K92.2 - Gastrointestinal hemorrhage, unspecified Status: Acute Plan: Repeat colonoscopy on 09/13/2017. Results as follows: 1. Moderate diverticulosis was noted in the sigmoid colon 2. Blood throughout the colon but no active site of bleeding seen. suspect diverticular bleed. 3. A sessile polyp ranging between 3-5mm in size was found in the sigmoid colon ; polypectomy was performed with cold forceps Hemoglobin 6.9 on 09/18/2017 - given another unit of PRBCs on 09/18/17 in AM prior to surgery. PLAN: S/P hemicolectomy with surgical anastomosis. Now having formed BMs. H&H stable x 24 hours. Continue IV Protonix 40 mg IV BID. Advance diet at discretion of surgery. Tolerating a reg basic diet at this time. Pain control with [place] 5-325 mg q 4 hours Pain 1-10. Discontinue morphine 2 mg IV push q 3 hours for breakthrough pain as patient had an adverse reaction ( confusion). Monitor vitals. Aggressive PT as tolerated. (2) Hypoglycemia ICD Codes: E16.2 - Hypoglycemia, unspecified Plan: Resolved. AM glucose on BMP was 84. Received 2 units of Novolog on 2017 for BG 219. Continue with Accu-Cheks at 0800 hrs., 1200 hrs., 1700 hrs., and 2100 hrs. Low dose insulin sliding scale starting at BG > 200. Will transition to Glucerna shakes if OK from a renal standpoint. Also, will add bedtime snack at 2100 hrs to prevent recurrent hypoglycemia. (3) Osteomyelitis of ankle or foot, right, acute ICD Codes: M86.171 - Other acute osteomyelitis, right ankle and foot Status: Acute Plan: MRI significant for osteomyelitis and multiple bones of the foot and ankle. Is scheduled next week for a below the knee amputation on the right, by Dr. Reaves. -Wound cultures showing Corynebacterium sp. -Blood cultures NGTD Podiatry consulted: appreciate recommendations * 09/07/17: Debridement of ulcers on right foot/ankle 3 * Plan on 09/[address] Reaves - postponed secondary to acute gastrointestinal bleeding. Rescheduled for later this week. Vascular consulted: appreciate recommendations * Pt with severe vascular changes, diabetic neuropathy Imaging: * MRI foot: Osteomyelitis develop at the fifth metatarsal base. Slight worsening osteomyelitis of the great toe head of the proximal phalanx and distal half of the distal phalanx. Worsening osteomyelitis of the fibular sesamoid. The superficial osteomyelitis of the tibial sesamoid not significantly changed. No drainable abscess. * MRI ankle: Severe soft tissue ulceration laterally and posteromedially of the ankle/hindfoot. Fluid collection in the posterior lateral gutter, potentially an abscess. Osteomyelitis of the calcaneus. Osteomyelitis of the distal fibula possible osteomyelitis focally of the posterior medial aspect of the talus. * Foot x-ray: Osteopenia, no acute bony abnormality. Medications * Vancomycin (09/06- per nephrology dosing/titration * Zosyn (09/07- (4) ESRD (end stage renal disease) on dialysis ICD Codes: N18.6 - End stage renal failure on dialysis; Z99.2 - Dependence on renal dialysis Status: Chronic Plan: Dialysis Saturday, Saturday, Saturday typically. 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 No urine output Nephrology consulted: Appreciate recommendations * Resume dialysis 3x/wk * Monitor phosphorus intermittently, use binders as appropriate. * Fluid restriction (5) Diabetes mellitus ICD Codes: E11.9 - Type 2 diabetes mellitus without complications Status: Chronic Plan: History of long-term diabetes on insulin at home -Sliding scale insulin -Monitor accuchecks (6) Hypertension ICD Codes: I10 - Hypertension Status: Chronic Plan: BP better controlled with addition of hydralazine 25 mg BID. Cont home amlodipine. (7) Hypothyroidism ICD Codes: E03.9 - Hypothyroidism Status: Chronic Plan: Continue home Synthroid. (8) FEN Status: Acute Plan: Fluids: D/c ivf. No signs of fluid overload on exam this AM. Electrolytes: monitor, replace PRN. Nutrition: As guided by GI DVT ppx: hold chemoppx due to surgery, SCDs SDW Dr. Blair. (Jesus Mendiola MD, R3) Problem Qualifiers (1) GI bleed: Qualified Codes: K57.91 - Diverticulosis of intestine, part unspecified, without perforation or abscess with bleeding (2) Diabetes mellitus: Qualified Codes: E11.42 - Type 2 diabetes mellitus with diabetic polyneuropathy ; Z79.4 - alf (current) use of insulin (3) Hypertension: Qualified Codes: I10 - Essential (primary) hypertension (4) Hypothyroidism: Qualified Codes: E03.9 - Hypothyroidism, unspecified Jesus Mendiola MD, R3 Sep 24, 2017 08:00 Anel Blair MD Sep 24, 2017 12:14
[2017-09-24 08:35] LABS: BICARBONATE 31.7 MEQ/L (21.0-32.0); CALCIUM 7.7 MG/DL (8.5-10.1); CREATININE 6.25 MG/DL (0.50-1.00)
[2017-09-24] MEDS: hydrALAZINE HCL 25 MG TAB PO SCH ×2 (08:56→21:00)
[2017-09-24] MEDS: VITAMIN B CMPLX/VITC/FOLIC AC CAP PO SCH (08:56)
[2017-09-24] MEDS: PANTOPRAZOLE SODIUM 40 MG VIAL IV PUSH SCH ×2 (08:56→21:30)
[2017-09-24] MEDS: SEVELAMER CARBONATE 800 MG TAB PO SCH ×3 (08:56→17:00)
[2017-09-24] MEDS: DOCUSATE SODIUM 50 MG/SENNA 8.6 MG TAB PO SCH ×2 (08:57→21:00)
[2017-09-24] MEDS: SODIUM CHLORIDE 0.9% FLUSH 10 ML FLUSH IV FLUSH SCH ×2 (08:57→21:31)
[2017-09-24] MEDS: oxyCODONE/ACETAMINOPHEN 5 MG/325 MG TAB PO PRN (09:08)
--- NOTE | 2017-09-24 10:05 | HHI.NPPN ---
Subjective General Problems: Anemia Renal Failure: Chronic, End Stage Renal Disease Interval History She is lying in bed. Noted to have fever overnight. Dialyzed yesterday. (Teresa Parekh) Review of Systems General Constitutional: Fever, Fatigue (Teresa Parekh) Respiratory Respiratory Remarks Denies any SOB (Teresa Parekh) Cardiovascular Cardiac Remarks Denies any CP (Teresa Parekh) Gastrointestinal Gastrointestinal: Blood/[place]ar[place] Stools (Teresa Parekh) Musculoskeletal MS: Pain/Stiffness (Teresa Parekh) Skin Skin: Ulcers (Teresa Parekh) Psych Psych: Depression (Teresa Parekh) Objective Data Data Vital Signs Date Time Temp Pulse Resp B/P (MAP) Pulse Ox O2 Delivery O2 Flow Rate FiO2 09/24/17 08:00 97.8 80 16 134/63 (86) 92 09/24/17 04:00 97.9 80 18 143/69 (93) 99 09/24/17 00:27 81 09/24/17 00:00 98.7 85 20 130/60 (83) 96 09/23/17 21:17 99.8 09/23/17 20:00 100.4 83 20 121/58 (79) 94 09/23/17 16:00 97.8 84 19 142/66 (91) 99 (Teresa Parekh) -: 09/24/17 0730 09/24/17 0730 Physical Exam General Appearance: Well Developed, No Acute Distress, Comfortable, Malnourished (Teresa Parekh) Eyes Eye Exam: Pupils Equal (Teresa Parekh) Throat Throat Exam: Oral Mucosa [place] & Moist (Teresa Parekh) Neck Neck Exam: Neck Supple (Teresa Parekh) Pulmonary Resp Exam: Clear Bilaterally, Breath Sounds Equal (Teresa Parekh) Cardiology CV Exam: Regular, Normal Sinus Rhythm, Good Perfusion (Teresa Parekh) Gastrointestinal/Abdomen GI Exam: Soft, Non-Tender, Bowel Sounds Present, Positive Bowel Movement GI Remarks Abdominal binder in place (Teresa Parekh) Musculoskeletal MS Exam: Normal Tone, Good Strength (Teresa Parekh) Integumentary Skin Exam: Warm, Dry Skin Remarks right foot ulcer, dressing in place. (Teresa Parekh) Extremeties Extremities Exam: No Edema Extremeties Remarks Left arm AVF + bruit/thrill (Teresa Parekh) Neurologic Neuro Exam: Alert, Awake, Oriented, Speech Clear, Moving All Extremities (Teresa Parekh) Psychiatric Psych Exam: Appropriate Responses (Teresa Parekh) Assessment/Plan Discussed Condition With: Patient Assessment Summary: Anemia of CKD, Hypertension, End Stage Renal Disease Problem List: (1) ESRD (end stage renal disease) on dialysis ICD Codes: N18.6 - End stage renal failure on dialysis; Z99.2 - Dependence on renal dialysis Status: Chronic Plan: Continue HD MWF Intermittently monitor renal profile. Continue current plan. Left arm AVF functions well. Continue phosphorus binders with meals. Advised compliance. (2) GI bleed ICD Codes: K92.2 - Gastrointestinal hemorrhage, unspecified Status: Acute Plan: GI and general surgery following, s/p L hemicolectomy Follow H/H (3) Anemia ICD Codes: D64.9 - Anemia, unspecified Status: Acute Plan: Persistently anemic, She was transfused 6 units since admission On Epogen with dialysis.Given Venofer. (4) Foot ulcer, right ICD Codes: L97.519 - Non-pressure chronic ulcer of other part of right foot with unspecified severity Status: Acute Plan: s/p debridement. will require BKA Vascular surgery following. On Zosyn and vancomycin. (5) Metabolic bone disease ICD Codes: E88.9 - Metabolic disorder, unspecified; M90.80 - Osteopathy in diseases classified elsewhere, unspecified site Status: Acute Plan: monitor phosphorus intermittently. continue Renvela (6) Hypertension ICD Codes: I10 - Hypertension Status: Chronic Plan: monitor BP, continue medications. (7) Diabetes mellitus ICD Codes: E11.9 - Type 2 diabetes mellitus without complications Status: Chronic Plan: Continue insulin coverage while hospitalized, maintain blood glucose between 140 and 180. Use D10 @ 20 while NPO. (Teresa Parekh) Plan patient was seen and examined. Dialysis tomorrow. Transfuse tomorrow at dialysis. Hopefully GI bleeding has stopped. (Dao Greene MD) Problem Qualifiers (1) GI bleed: Qualified Codes: K57.91 - Diverticulosis of intestine, part unspecified, without perforation or abscess with bleeding (2) Foot ulcer, right: Qualified Codes: L97.512 - Non-pressure chronic ulcer of other part of right foot with fat layer exposed (3) Hypertension: Qualified Codes: I10 - Essential (primary) hypertension (4) Diabetes mellitus: Qualified Codes: E11.42 - Type 2 diabetes mellitus with diabetic polyneuropathy ; Z79.4 - retirement (current) use of insulin Teresa Parekh Sep 24, 2017 10:05 Dao Greene MD Sep 24, 2017 10:23
--- NOTE | 2017-09-24 16:13 | PD.CAR.PN ---
CVT Progress Note Subjective/Hospital Course: Consult received Full dictation to follow For podiatry debridement Saturday and after that we will evaluate as far as salvageability of the leg is concerned Thanks Jean Paul 09/09/17 Patient with severe peripheral vascular disease gangrene of the right heel and osteomyelitis Every effort has been made by podiatry to salvage the foot and there are no other options left I agree with Dr. Galvez and Dr. Nadir Mlelo, and the only option at this time is right below-knee amputation Patient scheduled for right below-knee amputation with second and third opinion of additional 2 physicians Today's BKA has to be canceled due to the fact that patient's hemoglobin is 6.7 and due to logistical reasons transfusion of 2 units PRBC was not not administered prior to taking patient to the operating room this afternoon. Considering this is purely elective procedure I believe it's safe and appropriate to transfuse this patient in peace and do surgery tomorrow Patient scheduled for right BKA tomorrow 09/10/17 Patient was initially rescheduled for surgery today however she had some bright red blood per rectum and surgery is now canceled GI bleeding takes precedence and patient will need a full workup on this issue before proceed with amputation If patient needs some gastrointestinal surgery or general surgical intervention I will be available and we'll continue to follow patient Once everything resolved we will reconsider the amputation issue 09/11/17 Hemoglobin again down to 6.9 g/dL as a result of GI bleeding Completely agree with medicine and gastroenterology approach and plan No clear site of bleeding and identified and this is often a problem in patients who have multiple pathologies, all of which could be attributing to the bleeding process including diverticular disease AVM malformations and such Most of these bleeds will see his on the round and only about 10-15% of patients will require actual surgery for the same. Precise identification of the bleeding site being the right or the left colon is imperative should patient require surgery for continuous bleeding, for knowing in their and having to do subtotal colectomy on this lady would double the mortality as opposed only removing the right or the left colon. Sometimes however we cannot identify the bleeding site and then subtotal colectomy remains the only option. Will continue follow patient which you and if patient require surgery I will be available to preform it. As far as the leg is concerned, amputation is now a secondary issue and will not be undertaken until the above issues are resolved and treated satisfactorily. 09/12/17 Patient currently stabilized from GI bleeding Hemoglobin is now stable Angiogram is negative for bleeding but that the requires at least the bleeding of 3 cc/minute to show up On the other hand no clear scan does reveal bleeding which in this case looks like transverse colon Majority of these bleeds will stop on the round with good supportive therapy and patient doesn't need further interventions On the other hand if the patient gets up to 6-8 units of blood transfusions than the risk of surgery is by far exceeded by the risk of repeated transfusions and then surgery is indicated We'll see how patient does and recommend as we go along Discussed with Dr Mi 09/13/17 Patient with diverticulosis and the likely transverse to left colon bleed Agree with Dr. Mi as to the site of bleeding Abdomen is soft active bowel sounds the patient appears to be stable She dropped her hemoglobin bit yesterday he received 1 more units of blood and now it's up again Patient is now 5 units PRBC later and the another unit or 2 and then we'll have to take patient to the operating room for extended left colectomy if this doesn't stop because then the risk of bleeding and problems with transfusion exceeds the risk of surgery We'll see the patient does through the weekend but she is close to needing surgery at this time 09/14/17 Patient doing okay now Abdomen is soft active bowel sounds Hemoglobin appears to be relatively stable between 9 and 8 g/dL and holding. As noted above patient has received 5 units of PRBCs up to now and once we get to point of 67 or 8 units and patient continues to lose blood, then the risk of surgery is less than the risk of repeated transfusions and at that point patient would need left colectomy. Discussed with Dr. Mi and we agree on being very conservative in this situation and doing everything to avoid surgery in this lady. Will continue to follow 09/15/17 Patient had some bleeding last night and hemoglobin was repeated to come back at 10 g/dL This was clearly old blood yet this morning hemoglobin is 8.1 g/dL some believe that former number was probably incorrect last night Patient doesn't appear to have active bleeding If she requires more blood and starts bleeding again should definitely go to the operating room from extended left colectomy At this point would advance to the diet and allow patient to eat and see how she does There is a high likelihood that patient will require left colon resection which of course is a procedure associated with some degree morbidity in this elderly lady. 09/16/17 Patient doing well at this time Abdomen soft active bowel sounds tolerates diet No more fresh or maroon blood per rectum Hemoglobin remains relatively stable between 7.5 and 8 g/dL Continue observation if patient drops hemoglobin 1 more time and starts bleeding she'll be going to the operating room for extended left colectomy 09/17/2017 Patient still passing clots some of the same I liquid blood and some more formed some maroon than some fresh At this point case discussed at length with medical attending and decision is made that this patient eventually clearly need surgery. I have discussed this with patient at length and she is reluctant to have surgery if she needs a colostomy, which is very unlikely but not completely excluded Patient will be cleaned out with GoLYTELY prep and is scheduled tomorrow for extended left colectomy with primary anastomosis 09/19/2017 Patient is status post extended left colectomy with low anterior anastomosis yesterday Incision clean and dry and abdomen is soft with few bowel sounds Of course no gas yet keep n.p.o. but for medications Patient can be out of bed with a binder Continue current care Patient can transfer to floor from my point any time 09/20/2017 Patient is still in ICU but as above noted yesterday from surgical point patient can transfer to floor anytime Perhaps there were no beds available Patient is doing well Abdomen is soft hypoactive bowel sounds incision is clean and dry Patient should get aggressive physical therapy to prevent her from being bedridden in the future We will advance to full liquids and from there as tolerated to diet It should be noted that this patient will still require below-knee amputation as she was originally the consult for the same However I do not want to put 2 surgeries to close together and I would allow patient to recover from this first Next surgery should probably not be done before middle or end of next week 09/21/2017 Patient doing well at this time Abdomen is soft with hypoactive bowel sounds incision is clean and dry Tolerates full liquids I would probably wait for another day or so before advancing diet further considering her frail state and degree of ileus This patient has low anterior resection and therefore should absolutely not receive any medication per rectum suppositories, enemas and such because this could disrupt the anastomosis. Any rectal manipulations or medications are absolutely contraindicated! Recommend Patient should probably get 1 unit of blood with next dialysis but there is no reason to keep the hemoglobin around 7 despite the fact that she is not bleeding anymore In addition patient sugar seems to be however around 50 and 70 and in face of decreased p.o. intake would be advisable to decrease the insulin administration until patient is back on full diet. I wrote her have patient hyperglycemic for a day or 2 then severely hypoglycemic even once which can be fatal For below-knee amputation next week 09/22/2017 Incision is clean and dry Abdomen is soft and nondistended Apparently patient vomited this morning. Patient has more than one reason to have prolonged ileus including renal failure, age bedridden status while in addition to surgery and narcotics administration Patient is awake but somewhat somnolent She truly needs to be more out of bed because whenever I come to visit the patient is laying in bed She should be aggressively moves around placed in chair and encouraged to deep breathe and move her legs even in the sitting position for otherwise she will have a prolonged ileus and will not do well in the and In addition I encouraged decreasing the dose of narcotics for this elderly lady 09/23/2017 Patient doing well at this time Abdomen soft active bowel sounds Tolerating diet well Hemoglobin stable Other medical nonrelated issues being addressed By the end of the week we will schedule patient for below-knee amputation all things equal 09/24/2017 Abdomen soft Incision clean and dry Active bowel sounds with minimal tenderness Tolerating p.o. diet and having bowel movements Plan for right below-knee amputation Saturday should patient remain stable Objective: Vital Signs Date Time Temp Pulse Resp B/P (MAP) Pulse Ox O2 Delivery O2 Flow Rate FiO2 09/24/17 12:00 97.7 78 16 158/66 (96) 94 09/24/17 08:00 97.8 80 16 134/63 (86) 92 09/24/17 04:00 97.9 80 18 143/69 (93) 99 09/24/17 00:27 81 09/24/17 00:00 98.7 85 20 130/60 (83) 96 09/23/17 21:17 99.8 09/23/17 20:00 100.4 83 20 121/58 (79) 94 Labs: Laboratory Tests Test 09/24/17 07:30 White Blood Count 9.8 TH/MM3 (4.0-11.0) Red Blood Count 2.54 MIL/MM3 (4.00-5.30) Hemoglobin 7.3 GM/DL (11.6-15.3) Hematocrit 21.8 % (35.0-46.0) Mean Corpuscular Volume 85.7 FL (80.0-100.0) Mean Corpuscular Hemoglobin 28.7 PG (27.0-34.0) Mean Corpuscular Hemoglobin Concent 33.5 % (32.0-36.0) Red Cell Distribution Width 18.2 % (11.6-17.2) Platelet Count 275 TH/MM3 (150-450) Mean Platelet Volume 8.4 FL (7.0-11.0) Neutrophils (%) (Auto) 64.4 % (16.0-70.0) Lymphocytes (%) (Auto) 16.2 % (9.0-44.0) Monocytes (%) (Auto) 12.3 % (0.0-8.0) Eosinophils (%) (Auto) 6.7 % (0.0-4.0) Basophils (%) (Auto) 0.4 % (0.0-2.0) Neutrophils # (Auto) 6.3 TH/MM3 (1.8-7.7) Lymphocytes # (Auto) 1.6 TH/MM3 (1.0-4.8) Monocytes # (Auto) 1.2 TH/MM3 (0-0.9) Eosinophils # (Auto) 0.7 TH/MM3 (0-0.4) Basophils # (Auto) 0.0 TH/MM3 (0-0.2) CBC Comment DIFF FINAL Differential Comment Blood Urea Nitrogen 27 MG/DL (7-18) Creatinine 6.25 MG/DL (0.50-1.00) Random Glucose 65 MG/DL (74-106) Calcium Level 7.7 MG/DL (8.5-10.1) Sodium Level 139 MEQ/L (136-145) Potassium Level 4.4 MEQ/L (3.5-5.1) Chloride Level 99 MEQ/L (98-107) Carbon Dioxide Level 31.7 MEQ/L (21.0-32.0) Anion Gap 8 MEQ/L (5-15) Estimat Glomerular Filtration Rate 8 ML/MIN (>89) Result Diagram: 09/24/17 0730 09/24/17 0730 Amalia De La Cruz MD Sep 24, 2017 16:13
[2017-09-24] MEDS: MIRTAZAPINE 15 MG TAB PO SCH (21:28)
[2017-09-24] MEDS: hydrOXYzine HCL 25 MG TAB PO SCH (21:29)
[2017-09-25] VITALS (9 sets, daily range): BP systolic 136–187; BP diastolic 64–79; PULSE 69–84; RESP 18; TEMP 97.6–99.3; O2SAT 92–100
[2017-09-25] MEDS: LEVOTHYROXINE SODIUM 75 MCG TAB PO SCH (05:48)
[2017-09-25] MEDS: PIPERACIL-TAZO 2.25 GM PREMIX 50 ML IV SCH ×3 (05:49→22:24)
[2017-09-25] MEDS: SEVELAMER CARBONATE 800 MG TAB PO SCH ×3 (08:00→16:47)
[2017-09-25] MEDS: INSULIN ASPART SUPPLEMENTAL SCALE SQ SCH ×4 (08:00→21:00)
[2017-09-25] MEDS: DOCUSATE SODIUM 50 MG/SENNA 8.6 MG TAB PO SCH ×2 (09:00→21:00)
[2017-09-25] MEDS: PANTOPRAZOLE SODIUM 40 MG VIAL IV PUSH SCH ×2 (09:00→22:24)
[2017-09-25] MEDS: hydrALAZINE HCL 25 MG TAB PO SCH ×2 (09:00→21:00)
[2017-09-25] MEDS: SODIUM CHLORIDE 0.9% FLUSH 10 ML FLUSH IV FLUSH SCH ×2 (09:00→22:29)
[2017-09-25] MEDS: VITAMIN B CMPLX/VITC/FOLIC AC CAP PO SCH (09:00)
--- NOTE | 2017-09-25 09:14 | HHI.NPPN ---
Subjective General Problems: Anemia Renal Failure: Chronic, End Stage Renal Disease Interval History Seen during dialysis. Right BKA scheduled for Saturday. (Teresa Parekh) Review of Systems General Constitutional: Fever, Fatigue (Teresa Parekh) Respiratory Respiratory Remarks Denies any SOB (Teresa Parekh) Cardiovascular Cardiac Remarks Denies any CP (Teresa Parekh) Gastrointestinal Gastrointestinal: Blood/Tarry Stools (Teresa Parekh) Musculoskeletal MS: Pain/Stiffness (Teresa Parekh) Skin Skin: Ulcers (Teresa Parekh) Psych Psych: Depression (Teresa Parekh) Objective Data Data Vital Signs Date Time Temp Pulse Resp B/P (MAP) Pulse Ox O2 Delivery O2 Flow Rate FiO2 09/25/17 04:20 74 09/25/17 04:00 97.6 76 18 136/64 (88) 100 09/25/17 00:00 98.3 75 18 138/65 (89) 100 09/24/17 21:44 Nasal Cannula 2.00 09/24/17 20:00 98.4 77 18 136/63 (87) 94 09/24/17 16:00 98.5 75 18 117/59 (78) 93 09/24/17 12:00 97.7 78 16 158/66 (96) 94 (Teresa Parekh) -: 09/24/17 0730 09/24/17 0730 Physical Exam General Appearance: Well Developed, No Acute Distress, Comfortable, Malnourished (Teresa Parekh) Eyes Eye Exam: Pupils Equal (Teresa Parekh) Throat Throat Exam: Oral Mucosa [place] & Moist (Teresa Parekh) Neck Neck Exam: Neck Supple (Teresa Parekh) Pulmonary Resp Exam: Clear Bilaterally, Breath Sounds Equal (Teresa Parekh) Cardiology CV Exam: Regular, Normal Sinus Rhythm, Good Perfusion (Teresa Parekh) Gastrointestinal/Abdomen GI Exam: Soft, Non-Tender, Bowel Sounds Present, Positive Bowel Movement GI Remarks Abdominal binder in place (Teresa Parekh) Musculoskeletal MS Exam: Normal Tone, Good Strength (Teresa Parekh) Integumentary Skin Exam: Warm, Dry Skin Remarks right foot ulcer, dressing in place. (Teresa Parekh) Extremeties Extremities Exam: No Edema Extremeties Remarks Left arm AVF + bruit/thrill (Teresa Parekh) Neurologic Neuro Exam: Alert, Awake, Oriented, Speech Clear, Moving All Extremities (Teresa Parekh) Psychiatric Psych Exam: Appropriate Responses (Teresa Parekh) Assessment/Plan Discussed Condition With: Patient Assessment Summary: Anemia of CKD, Hypertension, End Stage Renal Disease Problem List: (1) ESRD (end stage renal disease) on dialysis ICD Codes: N18.6 - End stage renal failure on dialysis; Z99.2 - Dependence on renal dialysis Status: Chronic Plan: Seen during dialysis on a 2K, 350 BFR, goal 2L Continue HD MWF Intermittently monitor renal profile. Continue current plan. Left arm AVF functions well. Avoid IVF administration. (2) GI bleed ICD Codes: K92.2 - Gastrointestinal hemorrhage, unspecified Status: Acute Plan: GI and general surgery following, s/p L hemicolectomy Follow H/H (3) Anemia ICD Codes: D64.9 - Anemia, unspecified Status: Acute Plan: Persistently anemic, Give a unit today in preparation for surgery Saturday. On Epogen with dialysis.Given Venofer. (4) Foot ulcer, right ICD Codes: L97.519 - Non-pressure chronic ulcer of other part of right foot with unspecified severity Status: Acute Plan: s/p debridement. will require BKA in 2 days. Vascular surgery following. On Zosyn and vancomycin. Antibiotics to be stopped after surgery. (5) Metabolic bone disease ICD Codes: E88.9 - Metabolic disorder, unspecified; M90.80 - Osteopathy in diseases classified elsewhere, unspecified site Status: Acute Plan: monitor phosphorus intermittently. continue Renvela, on two with meals. She has missed several doses (6) Hypertension ICD Codes: I10 - Hypertension Status: Chronic Plan: monitor BP, continue medications. (7) Diabetes mellitus ICD Codes: E11.9 - Type 2 diabetes mellitus without complications Status: Chronic Plan: Continue insulin coverage while hospitalized, maintain blood glucose between 140 and 180. Use D10 @ 20 while NPO. (Teresa Parekh) Plan patient was seen and examined. Seen during dialysis. To receive 1 unit of PRBC today at dialysis. Right BKA is scheduled for Saturday. (Dao Greene MD) Problem Qualifiers (1) GI bleed: Qualified Codes: K57.91 - Diverticulosis of intestine, part unspecified, without perforation or abscess with bleeding (2) Foot ulcer, right: Qualified Codes: L97.512 - Non-pressure chronic ulcer of other part of right foot with fat layer exposed (3) Hypertension: Qualified Codes: I10 - Essential (primary) hypertension (4) Diabetes mellitus: Qualified Codes: E11.42 - Type 2 diabetes mellitus with diabetic polyneuropathy ; Z79.4 - [employer] (current) use of insulin Teresa Parekh Sep 25, 2017 09:14 Dao Greene MD Sep 25, 2017 10:06
--- NOTE | 2017-09-25 09:17 | HHI.FPPN ---
Subjective Remarks Seen in dialysis. Doing well. No concerns or complaints. BG >100 this AM. Abdominal pain improving. (Jesus Mendiola MD, R3) Objective Vitals Vital Signs Date Time Temp Pulse Resp B/P (MAP) Pulse Ox O2 Delivery O2 Flow Rate FiO2 09/25/17 08:00 98.1 69 18 155/71 (99) 100 09/25/17 04:20 74 09/25/17 04:00 97.6 76 18 136/64 (88) 100 09/25/17 00:00 98.3 75 18 138/65 (89) 100 09/24/17 21:44 Nasal Cannula 2.00 09/24/17 20:00 98.4 77 18 136/63 (87) 94 09/24/17 16:00 98.5 75 18 117/59 (78) 93 09/24/17 12:00 97.7 78 16 158/66 (96) 94 I/O 09/24/17 09/24/17 09/24/17 09/25/17 09/25/17 09/25/17 07:00 15:00 23:00 07:00 15:00 23:00 Intake Total 290 ml 50 ml 770 ml 360 ml Output Total 100 ml 120 ml Balance 190 ml -70 ml 770 ml 360 ml Intake Oral 240 ml 720 ml 360 ml IV Total 50 ml 50 ml 50 ml Drainage Total 100 ml 120 ml # Voids 0 0 0 # Bowel Movements 0 1 0 (Jesus Mendiola MD, R3) Result Diagram: 09/24/17 0730 09/24/17 0730 Objective Remarks GEN: Well-developed, well-nourished patient. No acute distress. CV: Regular rate and rhythm without obvious murmurs LUNGS: Coarse breath sounds with rhonchi bilaterally, prolonged expiratory phase GI: nondistended, soft, TTP throughout, abdominal binder in place. Drain in place and is CDI. EXT: No edema, chronic venous stasis changes, present. No calf tenderness. Right foot wrapped in Sarath bandage. Clean and dry. NEURO/PSYCH: Awake, alert. Appropriate insight and judgment. Normal speech (Jesus Mendiola MD, R3) A/P Assessment and Plan 72 y/o with chronic history of HTN, DM, ESRD, chronic foot wounds presents from podiatry clinic for evaluation. Admitted for osteomyelitis with debridement and possible amputation. Developed a GI bleed during hospitalization. Hemicolectomy performed 09/18/2017. Discharge Planning Will need BTK amputation later this week once stable postoperatively from hemicolectomy. Will need SNF after BTK amputation. (Jesus Mendiola MD, R3) Attending Attestation Case reviewed and discussed with Dr Mendiola. Agree with plan of care as discussed with me and documented in the resident note. (Anel Blair MD) Problem List: (1) GI bleed ICD Codes: K92.2 - Gastrointestinal hemorrhage, unspecified Status: Acute Plan: PLAN: S/P hemicolectomy with surgical anastomosis. Now having formed BMs and abdominal pain is improving. H&H stable x 24 hours. Given 1 unit of PRBCs today 09/25/2017. Continue IV Protonix 40 mg IV BID. Tolerating a reg basic diet at this time. Pain control with [place] 5-325 mg q 4 hours Pain 1-10. Discontinue morphine 2 mg IV push q 3 hours for breakthrough pain as patient had an adverse reaction ( confusion). Monitor vitals. Aggressive PT as tolerated. (2) Hypoglycemia ICD Codes: E16.2 - Hypoglycemia, unspecified Plan: Resolved this AM. Cont with ISS. (3) Osteomyelitis of ankle or foot, right, acute ICD Codes: M86.171 - Other acute osteomyelitis, right ankle and foot Status: Acute Plan: MRI significant for osteomyelitis and multiple bones of the foot and ankle. Is scheduled next week for a below the knee amputation on the right, by Dr. Reaves. -Wound cultures showing Corynebacterium sp. -Blood cultures NGTD Podiatry consulted: appreciate recommendations * 09/07/17: Debridement of ulcers on right foot/ankle 3 * Plan on 09/[address] Reaves - postponed secondary to acute gastrointestinal bleeding. Rescheduled for later this week. Vascular consulted: appreciate recommendations * Pt with severe vascular changes, diabetic neuropathy Imaging: * MRI foot: Osteomyelitis develop at the fifth metatarsal base. Slight worsening osteomyelitis of the great toe head of the proximal phalanx and distal half of the distal phalanx. Worsening osteomyelitis of the fibular sesamoid. The superficial osteomyelitis of the tibial sesamoid not significantly changed. No drainable abscess. * MRI ankle: Severe soft tissue ulceration laterally and posteromedially of the ankle/hindfoot. Fluid collection in the posterior lateral gutter, potentially an abscess. Osteomyelitis of the calcaneus. Osteomyelitis of the distal fibula possible osteomyelitis focally of the posterior medial aspect of the talus. * Foot x-ray: Osteopenia, no acute bony abnormality. Medications * Vancomycin (09/06- per nephrology dosing/titration * Zosyn (09/07- (4) ESRD (end stage renal disease) on dialysis ICD Codes: N18.6 - End stage renal failure on dialysis; Z99.2 - Dependence on renal dialysis Status: Chronic Plan: Dialysis Saturday, Saturday, Saturday typically. Sees Dr. Buchanan, direct service provider outpatient. No urine output Nephrology consulted: Appreciate recommendations * Resume dialysis 3x/wk * Monitor phosphorus intermittently, use binders as appropriate. * Fluid restriction (5) Diabetes mellitus ICD Codes: E11.9 - Type 2 diabetes mellitus without complications Status: Chronic Plan: History of long-term diabetes on insulin at home -Sliding scale insulin -Monitor accuchecks (6) Hypertension ICD Codes: I10 - Hypertension Status: Chronic Plan: BP better controlled with addition of hydralazine 25 mg BID. Cont home amlodipine. (7) Hypothyroidism ICD Codes: E03.9 - Hypothyroidism Status: Chronic Plan: Continue home Synthroid. (8) FEN Status: Acute Plan: Fluids: D/c ivf. No signs of fluid overload on exam this AM. Electrolytes: monitor, replace PRN. Nutrition: As guided by GI DVT ppx: hold chemoppx due to surgery, SCDs WDW Dr. Blair. (Jesus Mendiola MD, R3) Problem Qualifiers (1) GI bleed: Qualified Codes: K57.91 - Diverticulosis of intestine, part unspecified, without perforation or abscess with bleeding (2) Diabetes mellitus: Qualified Codes: E11.42 - Type 2 diabetes mellitus with diabetic polyneuropathy ; Z79.4 - [facility] (current) use of insulin (3) Hypertension: Qualified Codes: I10 - Essential (primary) hypertension (4) Hypothyroidism: Qualified Codes: E03.9 - Hypothyroidism, unspecified Jesus Mendiola MD, R3 Sep 25, 2017 09:17 Anel Blair MD Sep 25, 2017 13:49
[2017-09-25] MEDS ORDERED: EPOETIN ALFA 4,000 UNITS/ML VIAL IV PUSH PRN (11:30)
[2017-09-25] MEDS: GELATIN 12 MM/7 MM FOAM TOP PRN (11:40)
[2017-09-25] MEDS: VANCOMYCIN INJ 1,000 MG in SODIUM CHLOR 0.9% 250 ML INJ 250 ML IV SCH (11:41)
--- NOTE | 2017-09-25 15:50 | PD.CAR.PN ---
CVT Progress Note Subjective/Hospital Course: Consult received Full dictation to follow For podiatry debridement Saturday and after that we will evaluate as far as salvageability of the leg is concerned Thanks Jean Paul 09/09/17 Patient with severe peripheral vascular disease gangrene of the right heel and osteomyelitis Every effort has been made by podiatry to salvage the foot and there are no other options left I agree with Dr. Galvez and Dr. Nadir Mello, and the only option at this time is right below-knee amputation Patient scheduled for right below-knee amputation with second and third opinion of additional 2 physicians Today's BKA has to be canceled due to the fact that patient's hemoglobin is 6.7 and due to logistical reasons transfusion of 2 units PRBC was not not administered prior to taking patient to the operating room this afternoon. Considering this is purely elective procedure I believe it's safe and appropriate to transfuse this patient in peace and do surgery tomorrow Patient scheduled for right BKA tomorrow 09/10/17 Patient was initially rescheduled for surgery today however she had some bright red blood per rectum and surgery is now canceled GI bleeding takes precedence and patient will need a full workup on this issue before proceed with amputation If patient needs some gastrointestinal surgery or general surgical intervention I will be available and we'll continue to follow patient Once everything resolved we will reconsider the amputation issue 09/11/17 Hemoglobin again down to 6.9 g/dL as a result of GI bleeding Completely agree with medicine and gastroenterology approach and plan No clear site of bleeding and identified and this is often a problem in patients who have multiple pathologies, all of which could be attributing to the bleeding process including diverticular disease AVM malformations and such Most of these bleeds will see his on the round and only about 10-15% of patients will require actual surgery for the same. Precise identification of the bleeding site being the right or the left colon is imperative should patient require surgery for continuous bleeding, for knowing in their and having to do subtotal colectomy on this lady would double the mortality as opposed only removing the right or the left colon. Sometimes however we cannot identify the bleeding site and then subtotal colectomy remains the only option. Will continue follow patient which you and if patient require surgery I will be available to preform it. As far as the leg is concerned, amputation is now a secondary issue and will not be undertaken until the above issues are resolved and treated satisfactorily. 09/12/17 Patient currently stabilized from GI bleeding Hemoglobin is now stable Angiogram is negative for bleeding but that the requires at least the bleeding of 3 cc/minute to show up On the other hand no clear scan does reveal bleeding which in this case looks like transverse colon Majority of these bleeds will stop on the round with good supportive therapy and patient doesn't need further interventions On the other hand if the patient gets up to 6-8 units of blood transfusions than the risk of surgery is by far exceeded by the risk of repeated transfusions and then surgery is indicated We'll see how patient does and recommend as we go along Discussed with Dr Mi 09/13/17 Patient with diverticulosis and the likely transverse to left colon bleed Agree with Dr. Mi as to the site of bleeding Abdomen is soft active bowel sounds the patient appears to be stable She dropped her hemoglobin bit yesterday he received 1 more units of blood and now it's up again Patient is now 5 units PRBC later and the another unit or 2 and then we'll have to take patient to the operating room for extended left colectomy if this doesn't stop because then the risk of bleeding and problems with transfusion exceeds the risk of surgery We'll see the patient does through the weekend but she is close to needing surgery at this time 09/14/17 Patient doing okay now Abdomen is soft active bowel sounds Hemoglobin appears to be relatively stable between 9 and 8 g/dL and holding. As noted above patient has received 5 units of PRBCs up to now and once we get to point of 67 or 8 units and patient continues to lose blood, then the risk of surgery is less than the risk of repeated transfusions and at that point patient would need left colectomy. Discussed with Dr. Mi and we agree on being very conservative in this situation and doing everything to avoid surgery in this lady. Will continue to follow 09/15/17 Patient had some bleeding last night and hemoglobin was repeated to come back at 10 g/dL This was clearly old blood yet this morning hemoglobin is 8.1 g/dL some believe that former number was probably incorrect last night Patient doesn't appear to have active bleeding If she requires more blood and starts bleeding again should definitely go to the operating room from extended left colectomy At this point would advance to the diet and allow patient to eat and see how she does There is a high likelihood that patient will require left colon resection which of course is a procedure associated with some degree morbidity in this elderly lady. 09/16/17 Patient doing well at this time Abdomen soft active bowel sounds tolerates diet No more fresh or maroon blood per rectum Hemoglobin remains relatively stable between 7.5 and 8 g/dL Continue observation if patient drops hemoglobin 1 more time and starts bleeding she'll be going to the operating room for extended left colectomy 09/17/2017 Patient still passing clots some of the same I liquid blood and some more formed some maroon than some fresh At this point case discussed at length with medical attending and decision is made that this patient eventually clearly need surgery. I have discussed this with patient at length and she is reluctant to have surgery if she needs a colostomy, which is very unlikely but not completely excluded Patient will be cleaned out with GoLYTELY prep and is scheduled tomorrow for extended left colectomy with primary anastomosis 09/19/2017 Patient is status post extended left colectomy with low anterior anastomosis yesterday Incision clean and dry and abdomen is soft with few bowel sounds Of course no gas yet keep n.p.o. but for medications Patient can be out of bed with a binder Continue current care Patient can transfer to floor from my point any time 09/20/2017 Patient is still in ICU but as above noted yesterday from surgical point patient can transfer to floor anytime Perhaps there were no beds available Patient is doing well Abdomen is soft hypoactive bowel sounds incision is clean and dry Patient should get aggressive physical therapy to prevent her from being bedridden in the future We will advance to full liquids and from there as tolerated to diet It should be noted that this patient will still require below-knee amputation as she was originally the consult for the same However I do not want to put 2 surgeries to close together and I would allow patient to recover from this first Next surgery should probably not be done before middle or end of next week 09/21/2017 Patient doing well at this time Abdomen is soft with hypoactive bowel sounds incision is clean and dry Tolerates full liquids I would probably wait for another day or so before advancing diet further considering her frail state and degree of ileus This patient has low anterior resection and therefore should absolutely not receive any medication per rectum suppositories, enemas and such because this could disrupt the anastomosis. Any rectal manipulations or medications are absolutely contraindicated! Recommend Patient should probably get 1 unit of blood with next dialysis but there is no reason to keep the hemoglobin around 7 despite the fact that she is not bleeding anymore In addition patient sugar seems to be however around 50 and 70 and in face of decreased p.o. intake would be advisable to decrease the insulin administration until patient is back on full diet. I wrote her have patient hyperglycemic for a day or 2 then severely hypoglycemic even once which can be fatal For below-knee amputation next week 09/22/2017 Incision is clean and dry Abdomen is soft and nondistended Apparently patient vomited this morning. Patient has more than one reason to have prolonged ileus including renal failure, age bedridden status while in addition to surgery and narcotics administration Patient is awake but somewhat somnolent She truly needs to be more out of bed because whenever I come to visit the patient is laying in bed She should be aggressively moves around placed in chair and encouraged to deep breathe and move her legs even in the sitting position for otherwise she will have a prolonged ileus and will not do well in the and In addition I encouraged decreasing the dose of narcotics for this elderly lady 09/23/2017 Patient doing well at this time Abdomen soft active bowel sounds Tolerating diet well Hemoglobin stable Other medical nonrelated issues being addressed By the end of the week we will schedule patient for below-knee amputation all things equal 09/24/2017 Abdomen soft Incision clean and dry Active bowel sounds with minimal tenderness Tolerating p.o. diet and having bowel movements Plan for right below-knee amputation Saturday should patient remain stable 09/25/2017 Patient doing well at this time Hemodynamically stable Abdomen soft active bowel sounds in incision clean and dry post left colectomy with low anterior anastomosis In face of the above we will proceed with a right below-knee amputation Saturday and all things equal patient will be able to go to rehab after that Objective: Vital Signs Date Time Temp Pulse Resp B/P (MAP) Pulse Ox O2 Delivery O2 Flow Rate FiO2 09/25/17 11:00 99 Nasal Cannula 2.00 09/25/17 08:00 98.1 69 18 155/71 (99) 100 09/25/17 04:20 74 09/25/17 04:00 97.6 76 18 136/64 (88) 100 09/25/17 00:00 98.3 75 18 138/65 (89) 100 09/24/17 21:44 Nasal Cannula 2.00 09/24/17 20:00 98.4 77 18 136/63 (87) 94 09/24/17 16:00 98.5 75 18 117/59 (78) 93 Result Diagram: 09/24/17 0730 09/24/17 0730 Amalia De La Cruz MD Sep 25, 2017 15:50
[2017-09-25] MEDS: hydrOXYzine HCL 25 MG TAB PO SCH (22:23)
[2017-09-25] MEDS: MIRTAZAPINE 15 MG TAB PO SCH (22:23)
[2017-09-26] VITALS (11 sets, daily range): BP systolic 118–161; BP diastolic 48–89; PULSE 72–132; RESP 16–19; TEMP 96.2–99; O2SAT 92–98
[2017-09-26] MEDS: PIPERACIL-TAZO 2.25 GM PREMIX 50 ML IV SCH ×3 (04:29→20:18)
[2017-09-26] MEDS: LEVOTHYROXINE SODIUM 75 MCG TAB PO SCH (04:29)
[2017-09-26] MEDS: INSULIN ASPART SUPPLEMENTAL SCALE SQ SCH ×4 (08:00→20:25)
[2017-09-26] MEDS: SEVELAMER CARBONATE 800 MG TAB PO SCH ×3 (08:00→17:00)
[2017-09-26] MEDS: PANTOPRAZOLE SODIUM 40 MG VIAL IV PUSH SCH ×2 (08:05→20:17)
[2017-09-26] MEDS: SODIUM CHLORIDE 0.9% FLUSH 10 ML FLUSH IV FLUSH SCH ×2 (08:05→20:17)
[2017-09-26] MEDS: DOCUSATE SODIUM 50 MG/SENNA 8.6 MG TAB PO SCH ×2 (08:06→20:17)
[2017-09-26] MEDS: hydrALAZINE HCL 25 MG TAB PO SCH (08:06)
[2017-09-26] MEDS: VITAMIN B CMPLX/VITC/FOLIC AC CAP PO SCH (08:06)
[2017-09-26 08:11] LABS: AUTOMATED NEUTROPHIL # 6.2 TH/MM3 (1.8-7.7); BASOPHIL # 0.1 TH/MM3 (0-0.2); BASOPHIL % 0.6 % (0.0-2.0); EOSINOPHIL # 0.8 TH/MM3 (0-0.4); EOSINOPHIL % 7.9 % (0.0-4.0); HEMATOCRIT 25.1 % (35.0-46.0); HEMOGLOBIN 8.5 GM/DL (11.6-15.3); LYMPH % 16.4 % (9.0-44.0); LYMPHOCYTE # 1.6 TH/MM3 (1.0-4.8); MEAN CELL VOLUME 86.4 FL (80.0-100.0); MEAN CORPUSCULAR HEMOGLOBIN 29.1 PG (27.0-34.0); MEAN CORPUSCULAR HGB CONC 33.7 % (32.0-36.0); MEAN PLATELET VOLUME 8.5 FL (7.0-11.0); MONO % 10.8 % (0.0-8.0); NEUT % 64.3 % (16.0-70.0); PLATELET COUNT 299 TH/MM3 (150-450); RED BLOOD COUNT 2.91 MIL/MM3 (4.00-5.30); RED CELL DISTRIBUTION WIDTH 17.3 % (11.6-17.2); WHITE BLOOD COUNT 9.6 TH/MM3 (4.0-11.0)
--- NOTE | 2017-09-26 08:17 | HHI.NPPN ---
Subjective General Problems: Anemia Renal Failure: Chronic, End Stage Renal Disease Interval History Had dialysis yesterday. Right BKA is scheduled for tomorrow. Review of Systems General Constitutional: Fever, Fatigue Respiratory Respiratory Remarks Denies any SOB Cardiovascular Cardiac Remarks Denies any CP Gastrointestinal Gastrointestinal: Blood/Tarry Stools Musculoskeletal MS: Pain/Stiffness Skin Skin: Ulcers Psych Psych: Depression Objective Data Data Vital Signs Date Time Temp Pulse Resp B/P (MAP) Pulse Ox O2 Delivery O2 Flow Rate FiO2 09/26/17 04:00 99.0 73 18 128/89 (102) 92 09/26/17 02:02 83 09/26/17 00:00 98.5 132 18 118/48 (71) 95 09/25/17 20:00 99.2 77 18 142/66 (91) 92 09/25/17 17:06 80 09/25/17 17:02 97 2.00 09/25/17 16:00 99.3 80 18 159/72 (101) 97 09/25/17 12:00 98.6 84 18 187/79 (115) 99 09/25/17 11:00 99 Nasal Cannula 2.00 -: 09/26/17 0730 09/24/17 0730 Physical Exam General Appearance: Well Developed, No Acute Distress, Comfortable, Malnourished Eyes Eye Exam: Pupils Equal Throat Throat Exam: Oral Mucosa [place] & Moist Neck Neck Exam: Neck Supple Pulmonary Resp Exam: Clear Bilaterally, Breath Sounds Equal Cardiology CV Exam: Regular, Normal Sinus Rhythm, Good Perfusion Gastrointestinal/Abdomen GI Exam: Soft, Non-Tender, Bowel Sounds Present, Positive Bowel Movement Musculoskeletal MS Exam: Normal Tone, Good Strength MS Remarks feet in dressings. Integumentary Skin Exam: Warm, Dry Extremeties Extremities Exam: No Edema Neurologic Neuro Exam: Alert, Awake, Oriented, Speech Clear, Moving All Extremities Psychiatric Psych Exam: Appropriate Responses Assessment/Plan Discussed Condition With: Patient Assessment Summary: Anemia of CKD, Hypertension, End Stage Renal Disease Problem List: (1) ESRD (end stage renal disease) on dialysis ICD Codes: N18.6 - End stage renal failure on dialysis; Z99.2 - Dependence on renal dialysis Status: Chronic Plan: Continue HD MWF Monitor fluid and electrolytes. Notes were reviewed. Continue current plan. Left arm AVF functions well. Avoid IVF administration. (2) GI bleed ICD Codes: K92.2 - Gastrointestinal hemorrhage, unspecified Status: Acute Plan: GI and general surgery following, s/p L hemicolectomy Follow H/H (3) Anemia ICD Codes: D64.9 - Anemia, unspecified Status: Acute Plan: Persistently anemic, Give a unit of PRBC on 09/25/17 in preparation for surgery Saturday. On Epogen with dialysis.Given Venofer. (4) Foot ulcer, right ICD Codes: L97.519 - Non-pressure chronic ulcer of other part of right foot with unspecified severity Status: Acute Plan: s/p debridement. will require BKA in 2 days. Vascular surgery following. On Zosyn and vancomycin. Antibiotics to be stopped after surgery. (5) Metabolic bone disease ICD Codes: E88.9 - Metabolic disorder, unspecified; M90.80 - Osteopathy in diseases classified elsewhere, unspecified site Status: Acute Plan: monitor phosphorus intermittently. continue Renvela, on two with meals. She has missed several doses (6) Hypertension ICD Codes: I10 - Hypertension Status: Chronic Plan: monitor BP, continue medications. (7) Diabetes mellitus ICD Codes: E11.9 - Type 2 diabetes mellitus without complications Status: Chronic Plan: Continue insulin coverage while hospitalized, maintain blood glucose between 140 and 180. Use D10 @ 20 while NPO. 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
[2017-09-26 08:42] LABS: BICARBONATE 31.8 MEQ/L (21.0-32.0); CREATININE 5.37 MG/DL (0.50-1.00)
[2017-09-26] MEDS: oxyCODONE/ACETAMINOPHEN 5 MG/325 MG TAB PO PRN (09:51)
--- NOTE | 2017-09-26 10:01 | HHI.FPPN ---
Subjective Remarks Patient in more pain mainly in her abdomen. Tolerated whole diet yesterday, had BM without difficulty. She does not report any palpitations, lightheadedness, or chest pain that is new. She has been trying to increase her PO intake and likes the strawberry flavored glucerna drinks. She is out of bed today on H&P and has been working with PT. (Jesus Mendiola MD, R3) Objective Vitals Vital Signs Date Time Temp Pulse Resp B/P (MAP) Pulse Ox O2 Delivery O2 Flow Rate FiO2 09/26/17 08:55 76 09/26/17 08:49 2.00 09/26/17 08:00 98.3 76 18 140/61 (87) 94 09/26/17 04:00 99.0 73 18 128/89 (102) 92 09/26/17 02:02 83 09/26/17 00:00 98.5 132 18 118/48 (71) 95 09/25/17 20:00 99.2 77 18 142/66 (91) 92 09/25/17 17:06 80 09/25/17 17:02 97 2.00 09/25/17 16:00 99.3 80 18 159/72 (101) 97 09/25/17 12:00 98.6 84 18 187/79 (115) 99 09/25/17 11:00 99 Nasal Cannula 2.00 I/O 09/25/17 09/25/17 09/25/17 09/26/17 09/26/17 09/26/17 06:59 14:59 22:59 06:59 14:59 22:59 Intake Total 360 ml 410 ml 720 ml 100 ml Output Total 2000 ml Balance 360 ml -1590 ml 720 ml 100 ml Intake Oral 360 ml 720 ml IV Total 100 ml Packed Cells 400 ml Blood Product IV Normal Saline Flush 10 ml Hemodialysis 2000 ml # Voids 0 0 # Bowel Movements 0 2 (Jesus Mendiola MD, R3) Result Diagram: 09/26/17 0730 09/26/17 0730 Imaging Last 72 hours Impressions Chest X-Ray 09/26/17 0000 Signed Impressions: Service Date/Time: September 10:16 - CONCLUSION: 1. Questionable small apical pneumothorax on the left. 2. Cardiomegaly with pulmonary vascular engorgement. 3. No infiltrates or effusions. Praneeth Villa Jr., MD Objective Remarks GEN: Well-developed, well-nourished patient. No acute distress. CV: Regular rate and rhythm without obvious murmurs LUNGS: Coarse breath sounds with rhonchi bilaterally, prolonged expiratory phase GI: nondistended, soft, TTP throughout, abdominal binder in place. Drain in place and is CDI. EXT: No edema, chronic venous stasis changes, present. No calf tenderness. Right foot wrapped in Sarath bandage. Clean and dry. Left side AV fistula with palpable bruit. NEURO/PSYCH: Awake, alert. Appropriate insight and judgment. Normal speech (Jesus Mendiola MD, R3) A/P Assessment and Plan 72 y/o with chronic history of HTN, DM, ESRD, chronic foot wounds presents from podiatry clinic for evaluation. Admitted for osteomyelitis with debridement and possible amputation. Developed a GI bleed during hospitalization. Hemicolectomy performed 09/18/2017. Discharge Planning Will need BTK amputation later this week once stable postoperatively from hemicolectomy. Will need SNF after BTK amputation. (Jesus Mendiola MD, R3) Attending Attestation Patient seen and examined with Dr Mendiola. Overnight tele with probable Afib, RVR to 130s. obtain 12 lead now, order ECHO, notified Dr Reaves as sg was planned for tomorrow. Replace recently added hydralazine with low dose Coreg at this time. For now will cont amlodipine as has been effective for BP control, after review of echo, and once postop can consider if appropriate to replace with nondihydropyridine.Repeat CXR today, eval L basilar end insp crackles (? fibrotic vs atelectasis), satting well. Agree with plan of care as discussed with me and documented in the resident note. (Anel Blair MD) Problem List: (1) GI bleed ICD Codes: K92.2 - Gastrointestinal hemorrhage, unspecified Status: Acute Plan: PLAN: S/P hemicolectomy with surgical anastomosis. Now having formed BMs and abdominal pain is improving. H&H stable x 24 hours. Given 1 unit of PRBCs on 09/25/2017. Continue IV Protonix 40 mg IV BID. Tolerating a reg basic diet at this time. Pain control with [place] 5-325 mg q 4 hours Pain 1-10. Monitor vitals. Aggressive PT as tolerated. (2) Atrial fibrillation ICD Codes: I48.91 - Unspecified atrial fibrillation Plan: HR 135 overnight. Found to have a fib on tele. New diagnosis. Last ECHO 05/2013, will repeat today. Should be done prior to surgical procedure (BKA) on 09/28/2017. Start low dose Beta [place] Carvedilol 3.125 PO BID. 12-lead EKG. Continue to monitor. (3) Respiratory crackles at left lung base ICD Codes: R09.89 - Other specified symptoms and signs involving the circulatory and respiratory systems Plan: Likely atelectasis. CXR on 09/25/2017 showed possible tiny apical pneumo on left. Will repeat today. No fluid, effusion, or consolidation noted on exam yesterday 09/25/2017. Maintaining O2 sats > 90%. (4) Hypoglycemia ICD Codes: E16.2 - Hypoglycemia, unspecified Plan: Resolved. When she is NPO she tends to drop to ~40 mg/dl. Her morning BG was 84. Will start D5-LR at 42 ml/hr at 0400 on the day of surgery in order to decrease the risk of hypoglycemia. Continue to monitor for hypoglycemia. (5) Osteomyelitis of ankle or foot, right, acute ICD Codes: M86.171 - Other acute osteomyelitis, right ankle and foot Status: Acute Plan: MRI significant for osteomyelitis and multiple bones of the foot and ankle. Is scheduled next week for a below the knee amputation on the right, by Dr. Reaves. -Wound cultures showing Corynebacterium sp. -Blood cultures NGTD Podiatry consulted: appreciate recommendations * 09/07/17: Debridement of ulcers on right foot/ankle 3 * Plan on 09/[address] Reaves - postponed secondary to acute gastrointestinal bleeding. Rescheduled for later this week. Vascular consulted: appreciate recommendations * Pt with severe vascular changes, diabetic neuropathy Imaging: * MRI foot: Osteomyelitis develop at the fifth metatarsal base. Slight worsening osteomyelitis of the great toe head of the proximal phalanx and distal half of the distal phalanx. Worsening osteomyelitis of the fibular sesamoid. The superficial osteomyelitis of the tibial sesamoid not significantly changed. No drainable abscess. * MRI ankle: Severe soft tissue ulceration laterally and posteromedially of the ankle/hindfoot. Fluid collection in the posterior lateral gutter, potentially an abscess. Osteomyelitis of the calcaneus. Osteomyelitis of the distal fibula possible osteomyelitis focally of the posterior medial aspect of the talus. * Foot x-ray: Osteopenia, no acute bony abnormality. Medications * Vancomycin (09/06- per nephrology dosing/titration * Zosyn (09/07- (6) ESRD (end stage renal disease) on dialysis ICD Codes: N18.6 - End stage renal failure on dialysis; Z99.2 - Dependence on renal dialysis Status: Chronic Plan: Dialysis Saturday, Saturday, Saturday typically. Sees Dr. 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 No urine output Nephrology consulted: Appreciate recommendations * Resume dialysis 3x/wk * Monitor phosphorus intermittently, use binders as appropriate. * Fluid restriction (7) Diabetes mellitus ICD Codes: E11.9 - Type 2 diabetes mellitus without complications Status: Chronic Plan: History of long-term diabetes on insulin at home -Sliding scale insulin -Monitor accuchecks (8) Hypertension ICD Codes: I10 - Hypertension Status: Chronic Plan: D/c hydralazine given tachycardia and starting beta [place]. Continue to asses VS q 4 hours and make adjustments to medications accordingly. Cont home amlodipine. (9) Hypothyroidism ICD Codes: E03.9 - Hypothyroidism Status: Chronic Plan: Continue home Synthroid. (10) FEN Status: Acute Plan: Fluids: D/c IVF. No signs of fluid overload on exam this AM. Electrolytes: monitor, replace PRN. Nutrition: As guided by GI DVT ppx: hold chemoppx due to surgery, SCDs SDW Dr. Blair. (Jesus Mendiola MD, R3) Problem Qualifiers (1) GI bleed: Qualified Codes: K57.91 - Diverticulosis of intestine, part unspecified, without perforation or abscess with bleeding (2) Diabetes mellitus: Qualified Codes: E11.42 - Type 2 diabetes mellitus with diabetic polyneuropathy ; Z79.4 - [facility] (current) use of insulin (3) Hypertension: Qualified Codes: I10 - Essential (primary) hypertension (4) Hypothyroidism: Qualified Codes: E03.9 - Hypothyroidism, unspecified Jesus Mendiola MD, R3 Sep 26, 2017 10:01 Anel Blair MD Sep 26, 2017 10:12
--- NOTE | 2017-09-26 10:39 | PD.CAR.PN ---
CVT Progress Note Subjective/Hospital Course: Consult received Full dictation to follow For podiatry debridement Saturday and after that we will evaluate as far as salvageability of the leg is concerned Thanks Jean Paul 09/09/17 Patient with severe peripheral vascular disease gangrene of the right heel and osteomyelitis Every effort has been made by podiatry to salvage the foot and there are no other options left I agree with Dr. Galvez and Dr. Nadir Mello, and the only option at this time is right below-knee amputation Patient scheduled for right below-knee amputation with second and third opinion of additional 2 physicians Today's BKA has to be canceled due to the fact that patient's hemoglobin is 6.7 and due to logistical reasons transfusion of 2 units PRBC was not not administered prior to taking patient to the operating room this afternoon. Considering this is purely elective procedure I believe it's safe and appropriate to transfuse this patient in peace and do surgery tomorrow Patient scheduled for right BKA tomorrow 09/10/17 Patient was initially rescheduled for surgery today however she had some bright red blood per rectum and surgery is now canceled GI bleeding takes precedence and patient will need a full workup on this issue before proceed with amputation If patient needs some gastrointestinal surgery or general surgical intervention I will be available and we'll continue to follow patient Once everything resolved we will reconsider the amputation issue 09/11/17 Hemoglobin again down to 6.9 g/dL as a result of GI bleeding Completely agree with medicine and gastroenterology approach and plan No clear site of bleeding and identified and this is often a problem in patients who have multiple pathologies, all of which could be attributing to the bleeding process including diverticular disease AVM malformations and such Most of these bleeds will see his on the round and only about 10-15% of patients will require actual surgery for the same. Precise identification of the bleeding site being the right or the left colon is imperative should patient require surgery for continuous bleeding, for knowing in their and having to do subtotal colectomy on this lady would double the mortality as opposed only removing the right or the left colon. Sometimes however we cannot identify the bleeding site and then subtotal colectomy remains the only option. Will continue follow patient which you and if patient require surgery I will be available to preform it. As far as the leg is concerned, amputation is now a secondary issue and will not be undertaken until the above issues are resolved and treated satisfactorily. 09/12/17 Patient currently stabilized from GI bleeding Hemoglobin is now stable Angiogram is negative for bleeding but that the requires at least the bleeding of 3 cc/minute to show up On the other hand no clear scan does reveal bleeding which in this case looks like transverse colon Majority of these bleeds will stop on the round with good supportive therapy and patient doesn't need further interventions On the other hand if the patient gets up to 6-8 units of blood transfusions than the risk of surgery is by far exceeded by the risk of repeated transfusions and then surgery is indicated We'll see how patient does and recommend as we go along Discussed with Dr Mi 09/13/17 Patient with diverticulosis and the likely transverse to left colon bleed Agree with Dr. Mi as to the site of bleeding Abdomen is soft active bowel sounds the patient appears to be stable She dropped her hemoglobin bit yesterday he received 1 more units of blood and now it's up again Patient is now 5 units PRBC later and the another unit or 2 and then we'll have to take patient to the operating room for extended left colectomy if this doesn't stop because then the risk of bleeding and problems with transfusion exceeds the risk of surgery We'll see the patient does through the weekend but she is close to needing surgery at this time 09/14/17 Patient doing okay now Abdomen is soft active bowel sounds Hemoglobin appears to be relatively stable between 9 and 8 g/dL and holding. As noted above patient has received 5 units of PRBCs up to now and once we get to point of 67 or 8 units and patient continues to lose blood, then the risk of surgery is less than the risk of repeated transfusions and at that point patient would need left colectomy. Discussed with Dr. Mi and we agree on being very conservative in this situation and doing everything to avoid surgery in this lady. Will continue to follow 09/15/17 Patient had some bleeding last night and hemoglobin was repeated to come back at 10 g/dL This was clearly old blood yet this morning hemoglobin is 8.1 g/dL some believe that former number was probably incorrect last night Patient doesn't appear to have active bleeding If she requires more blood and starts bleeding again should definitely go to the operating room from extended left colectomy At this point would advance to the diet and allow patient to eat and see how she does There is a high likelihood that patient will require left colon resection which of course is a procedure associated with some degree morbidity in this elderly lady. 09/16/17 Patient doing well at this time Abdomen soft active bowel sounds tolerates diet No more fresh or maroon blood per rectum Hemoglobin remains relatively stable between 7.5 and 8 g/dL Continue observation if patient drops hemoglobin 1 more time and starts bleeding she'll be going to the operating room for extended left colectomy 09/17/2017 Patient still passing clots some of the same I liquid blood and some more formed some maroon than some fresh At this point case discussed at length with medical attending and decision is made that this patient eventually clearly need surgery. I have discussed this with patient at length and she is reluctant to have surgery if she needs a colostomy, which is very unlikely but not completely excluded Patient will be cleaned out with GoLYTELY prep and is scheduled tomorrow for extended left colectomy with primary anastomosis 09/19/2017 Patient is status post extended left colectomy with low anterior anastomosis yesterday Incision clean and dry and abdomen is soft with few bowel sounds Of course no gas yet keep n.p.o. but for medications Patient can be out of bed with a binder Continue current care Patient can transfer to floor from my point any time 09/20/2017 Patient is still in ICU but as above noted yesterday from surgical point patient can transfer to floor anytime Perhaps there were no beds available Patient is doing well Abdomen is soft hypoactive bowel sounds incision is clean and dry Patient should get aggressive physical therapy to prevent her from being bedridden in the future We will advance to full liquids and from there as tolerated to diet It should be noted that this patient will still require below-knee amputation as she was originally the consult for the same However I do not want to put 2 surgeries to close together and I would allow patient to recover from this first Next surgery should probably not be done before middle or end of next week 09/21/2017 Patient doing well at this time Abdomen is soft with hypoactive bowel sounds incision is clean and dry Tolerates full liquids I would probably wait for another day or so before advancing diet further considering her frail state and degree of ileus This patient has low anterior resection and therefore should absolutely not receive any medication per rectum suppositories, enemas and such because this could disrupt the anastomosis. Any rectal manipulations or medications are absolutely contraindicated! Recommend Patient should probably get 1 unit of blood with next dialysis but there is no reason to keep the hemoglobin around 7 despite the fact that she is not bleeding anymore In addition patient sugar seems to be however around 50 and 70 and in face of decreased p.o. intake would be advisable to decrease the insulin administration until patient is back on full diet. I wrote her have patient hyperglycemic for a day or 2 then severely hypoglycemic even once which can be fatal For below-knee amputation next week 09/22/2017 Incision is clean and dry Abdomen is soft and nondistended Apparently patient vomited this morning. Patient has more than one reason to have prolonged ileus including renal failure, age bedridden status while in addition to surgery and narcotics administration Patient is awake but somewhat somnolent She truly needs to be more out of bed because whenever I come to visit the patient is laying in bed She should be aggressively moves around placed in chair and encouraged to deep breathe and move her legs even in the sitting position for otherwise she will have a prolonged ileus and will not do well in the and In addition I encouraged decreasing the dose of narcotics for this elderly lady 09/23/2017 Patient doing well at this time Abdomen soft active bowel sounds Tolerating diet well Hemoglobin stable Other medical nonrelated issues being addressed By the end of the week we will schedule patient for below-knee amputation all things equal 09/24/2017 Abdomen soft Incision clean and dry Active bowel sounds with minimal tenderness Tolerating p.o. diet and having bowel movements Plan for right below-knee amputation Saturday should patient remain stable 09/25/2017 Patient doing well at this time Hemodynamically stable Abdomen soft active bowel sounds in incision clean and dry post left colectomy with low anterior anastomosis In face of the above we will proceed with a right below-knee amputation Saturday and all things equal patient will be able to go to rehab after that 09/26/2017 Patient doing well at this time. New onset a-fib. Patient can go to OR in a-fib, as long as rate controlled. Agree with B- blockers and Ca channel blockers. Will postpone till Saturday to allow for time to stabilize the hemodynamics. We will go ahead with a right below-knee amputation Saturday morning All other things remain unchanged This has been at length discussed with patient at several occasions and she agrees with the surgery Objective: Vital Signs Date Time Temp Pulse Resp B/P (MAP) Pulse Ox O2 Delivery O2 Flow Rate FiO2 09/26/17 08:55 76 09/26/17 08:49 2.00 09/26/17 08:00 98.3 76 18 140/61 (87) 94 09/26/17 04:00 99.0 73 18 128/89 (102) 92 09/26/17 02:02 83 09/26/17 00:00 98.5 132 18 118/48 (71) 95 09/25/17 20:00 99.2 77 18 142/66 (91) 92 09/25/17 17:06 80 09/25/17 17:02 97 2.00 09/25/17 16:00 99.3 80 18 159/72 (101) 97 09/25/17 12:00 98.6 84 18 187/79 (115) 99 09/25/17 11:00 99 Nasal Cannula 2.00 Labs: Laboratory Tests Test 09/26/17 07:30 White Blood Count 9.6 TH/MM3 (4.0-11.0) Red Blood Count 2.91 MIL/MM3 (4.00-5.30) Hemoglobin 8.5 GM/DL (11.6-15.3) Hematocrit 25.1 % (35.0-46.0) Mean Corpuscular Volume 86.4 FL (80.0-100.0) Mean Corpuscular Hemoglobin 29.1 PG (27.0-34.0) Mean Corpuscular Hemoglobin Concent 33.7 % (32.0-36.0) Red Cell Distribution Width 17.3 % (11.6-17.2) Platelet Count 299 TH/MM3 (150-450) Mean Platelet Volume 8.5 FL (7.0-11.0) Neutrophils (%) (Auto) 64.3 % (16.0-70.0) Lymphocytes (%) (Auto) 16.4 % (9.0-44.0) Monocytes (%) (Auto) 10.8 % (0.0-8.0) Eosinophils (%) (Auto) 7.9 % (0.0-4.0) Basophils (%) (Auto) 0.6 % (0.0-2.0) Neutrophils # (Auto) 6.2 TH/MM3 (1.8-7.7) Lymphocytes # (Auto) 1.6 TH/MM3 (1.0-4.8) Monocytes # (Auto) 1.0 TH/MM3 (0-0.9) Eosinophils # (Auto) 0.8 TH/MM3 (0-0.4) Basophils # (Auto) 0.1 TH/MM3 (0-0.2) CBC Comment DIFF FINAL Differential Comment Blood Urea Nitrogen 24 MG/DL (7-18) Creatinine 5.37 MG/DL (0.50-1.00) Random Glucose 64 MG/DL (74-106) Calcium Level 8.0 MG/DL (8.5-10.1) Sodium Level 139 MEQ/L (136-145) Potassium Level 4.6 MEQ/L (3.5-5.1) Chloride Level 99 MEQ/L (98-107) Carbon Dioxide Level 31.8 MEQ/L (21.0-32.0) Anion Gap 8 MEQ/L (5-15) Estimat Glomerular Filtration Rate 9 ML/MIN (>89) Result Diagram: 09/26/17 0730 09/26/17 0730 Amalia De La Cruz MD Sep 26, 2017 10:38
--- NOTE | 2017-09-26 10:49 | RADRPT ---
EXAM DATE/TIME: 09/26/2017 10:16 [place] COMPARISON: CHEST SINGLE AP, September 06, 2017, 19:55. INDICATIONS : Cough MEDICAL HISTORY : ESRD on hemodialysis, Chronic right foot wound, HTN, Diabetes, Hypothyroidism, Diabetic neuropathy, N octurnal hypoxia, GERD, Hepatitis C, GI bleed SURGICAL HISTORY : Right foot abscess I&D, Left hallux amputation, Left arm AV fistula ENCOUNTER: Subsequent ACUITY: 1 month PAIN SCORE: 0/10 LOCATION: chest FINDINGS: A single portable frontal view the chest shows moderate cardiomegaly. Monary vascular engorgement not ed. No discrete infiltrate or effusion. There is a linear density paralleling the parietal pleura wit hin the left upper chest. No discernible vascular markings are seen peripheral to this. CONCLUSION: 1. Questionable small apical pneumothorax on the left. 2. Cardiomegaly with pulmonary vascular engorgement. 3. No infiltrates or effusions. Praneeth Villa Jr., MD on September 26, 2017 at 10:42 Board Certified Radiologist. This report was verified electronically.
[2017-09-26] MEDS: CARVEDILOL 3.125 MG TAB PO SCH ×2 (11:16→20:17)
--- NOTE | 2017-09-26 11:44 | PD.POD ---
Subjective Podiatric Problems R foot/ankle wounds and osteomyelitis, s/p debridement of ulcers right foot/ ankle 09/07/17 Dr Mello Past Med/Surg/Social History Past Medical History Endocrine: REPORTS HX OF: Diabetes mellitus Cardiovascular: REPORTS HX OF: Hypertension Gastrointestinal: REPORTS HX OF: Liver disease Genitourinary: REPORTS HX OF: Kidney failure Past Surgical History Gastrointestinal: DENIES HX OF: Colectomy, total Gynecologic: DENIES HX OF: Hysterectomy Musculoskeletal: REPORTS HX OF: Other musculoskeletal srg (amputation of the left hallux) Breast: DENIES HX OF: Mastectomy, bilateral, Mastectomy, left, Mastectomy, right Social History Smoking Status: Current Every Day Smoker Objective Vital Signs Vital Signs Date Time Temp Pulse Resp B/P (MAP) Pulse Ox O2 Delivery O2 Flow Rate FiO2 09/26/17 08:55 76 09/26/17 08:49 2.00 09/26/17 08:00 98.3 76 18 140/61 (87) 94 09/26/17 04:00 99.0 73 18 128/89 (102) 92 09/26/17 02:02 83 09/26/17 00:00 98.5 132 18 118/48 (71) 95 09/25/17 20:00 99.2 77 18 142/66 (91) 92 09/25/17 17:06 80 09/25/17 17:02 97 2.00 09/25/17 16:00 99.3 80 18 159/72 (101) 97 09/25/17 12:00 98.6 84 18 187/79 (115) 99 Coded Allergies: *MDRO Multi-Drug Resistant Organism (Verified Allergy, Unknown, 09/06/17) MRSA Other Results MRI with extensive osteomyelitis throughout right foot and ankle. Last 72 hours Impressions Chest X-Ray 09/26/17 0000 Signed Impressions: Service Date/Time: September 10:16 - CONCLUSION: 1. Questionable small apical pneumothorax on the left. 2. Cardiomegaly with pulmonary vascular engorgement. 3. No infiltrates or effusions. Praneeth Villa Jr., MD Objective Remarks Microbiology Date/Time Source Procedure Growth Status 09/06/17 19:45 Blood Peripheral Aerobic Blood Culture - Preliminary NO GROWTH IN 2 DAYS Resulted 09/06/17 19:45 Blood Peripheral Anaerobic Blood Culture - Preliminary NO GROWTH IN 2 DAYS Resulted 09/07/17 13:31 Wound Ankle Fungal Smear - Final NO FUNGAL ELEMENTS SEEN. Resulted 09/07/17 13:31 Wound Ankle Fungal Culture Pending Resulted Corynebacteria from ankle and foot wounds Exam-Podiatry Remarks unchanged Assessment & Plan A/P s/p debridement of ulcers right foot/ankle, Dr Mello 08/2717 I still hold steady with recommendation for below knee amputation in light of extensive infection and global findings for osteomyelitis Recommend to move forward with BKA Right lower extremity with Nadir Toney DPM Sep 26, 2017 11:44
--- NOTE | 2017-09-26 14:32 | ECHRPT ---
Indication: Paroxysmal atrial fibrillation CONCLUSIONS The left ventricular systolic function is mildly reduced with an estimated ejection fraction in the range of 45- 50%. Mild concentric left ventricular hypertrophy. Normal left ventricular size. The left atrial size is mildly dilated. mild mitral valve regurgitation. There is mild to moderate tricuspid valve regurgitation. The estimated pulmonary arterial pressure is 52.1 mmHg. mild to moderate pulmonary valve regurgitation. BP: 140 / 61 HR: 76 Rhythm: Sinus MEASUREMENTS (Male / Female) Normal Values Technical Quality:Good 2D ECHO LV Diastolic Diameter PLAX 4.3 cm 4.2 - 5.9 / 3.9 - 5.3 cm LV Systolic Diameter PLAX 3.5 cm IVS Diastolic Thickness 1.6 cm 0.6 - 1.0 / 0.6 - 0.9 cm LVPW Diastolic Thickness 1.4 cm 0.6 - 1.0 / 0.6 - 0.9 cm LV Relative Wall Thickness 0.7 LVOT Diameter 2.2 cm M-MODE Aortic Root Diameter MM 3.2 cm LA Systolic Diameter MM 4.4 cm LA Ao Ratio MM 1.4 AV Cusp Separation MM 1.9 cm DOPPLER AV Peak Velocity 129.0 cm/s AV Peak Gradient 6.7 mmHg LVOT Peak Velocity 66.6 cm/s LVOT Peak Gradient 1.8 mmHg AV Area Cont Eq pk 2.0 cm MR Peak Velocity 477.0 cm/s MR Peak Gradient 91.0 mmHg Mitral E Point Velocity 115.0 cm/s Mitral A Point Velocity 67.6 cm/s Mitral E to A Ratio 1.7 LV E' Lateral Velocity 6.1 cm/s Mitral E to LV E' Lateral Ratio 18.7 LV E' Septal Velocity 4.6 cm/s Mitral E to LV E' Septal Ratio 25.1 TR Peak Velocity 324.3 cm/s TR Peak Gradient 42.1 mmHg Right Atrial Pressure 10.0 mmHg Pulmonary Artery Systolic Pressu 52.1 mmHg Right Ventricular Systolic Press 52.1 mmHg PV Peak Velocity 89.6 cm/s PV Peak Gradient 3.2 mmHg FINDINGS LEFT VENTRICLE The left ventricular systolic function is mildly reduced with an estimated ejection fraction in the range of 45- 50%. Mild concentric left ventricular hypertrophy. Normal left ventricular size. RIGHT VENTRICLE Normal right ventricular size and systolic function. LEFT ATRIUM The left atrial size is mildly dilated. RIGHT ATRIUM The right atrial size is normal. ATRIAL SEPTUM Normal atrial septal thickness without atrial level shunting by limited color doppler interrogation. AORTA The aortic root and proximal ascending aorta are normal in size on limited imaging. MITRAL VALVE Yuvpu-we-houk mitral valve regurgitation. AORTIC VALVE Trileaflet aortic valve. No aortic valve stenosis or regurgitation. TRICUSPID VALVE There is moderate to severe tricuspid valve regurgitation. The estimated pulmonary arterial pressure is 52.1 mmHg. PULMONARY VALVE Moderate pulmonary valve regurgitation. VESSELS The inferior vena cava is normal in size. PERICARDIUM No pericardial effusion. Sunday Blair MD, FACC, [facility] [place] (Electronically Signed) Final Date:26 September 2017 14:31
[2017-09-26] MEDS: MIRTAZAPINE 15 MG TAB PO SCH (20:17)
[2017-09-26] MEDS: hydrOXYzine HCL 25 MG TAB PO SCH (20:17)
[2017-09-27] VITALS (9 sets, daily range): BP systolic 133–173; BP diastolic 65–78; PULSE 72–82; RESP 16–19; TEMP 97.1–98.7; O2SAT 91–100
[2017-09-27] MEDS ORDERED: DEXTROSE 5%-LACTATED RING INJ 1,000 ML IV SCH (04:00)
[2017-09-27] MEDS: LEVOTHYROXINE SODIUM 75 MCG TAB PO SCH (04:35)
[2017-09-27] MEDS: PIPERACIL-TAZO 2.25 GM PREMIX 50 ML IV SCH ×4 (04:36→20:04)
[2017-09-27 07:44] LABS: BICARBONATE 28.9 MEQ/L (21.0-32.0); CALCIUM 7.8 MG/DL (8.5-10.1); CREATININE 6.48 MG/DL (0.50-1.00)
[2017-09-27] MEDS: CARVEDILOL 3.125 MG TAB PO SCH ×2 (07:53→20:04)
[2017-09-27] MEDS: PANTOPRAZOLE SODIUM 40 MG VIAL IV PUSH SCH ×2 (07:53→20:04)
[2017-09-27] MEDS: VITAMIN B CMPLX/VITC/FOLIC AC CAP PO SCH (07:53)
[2017-09-27] MEDS: DOCUSATE SODIUM 50 MG/SENNA 8.6 MG TAB PO SCH ×2 (07:53→20:08)
[2017-09-27] MEDS: SEVELAMER CARBONATE 800 MG TAB PO SCH ×3 (07:53→17:00)
[2017-09-27] MEDS: INSULIN ASPART SUPPLEMENTAL SCALE SQ SCH ×4 (07:57→20:57)
[2017-09-27] MEDS: SODIUM CHLORIDE 0.9% FLUSH 10 ML FLUSH IV FLUSH SCH ×2 (07:57→20:04)
--- NOTE | 2017-09-27 14:15 | HHI.FPPN ---
Subjective Remarks Reports being "agitated" this AM. Has "a little bit of belly pain." Not interactive during history or physical. Understands that we plan for a cardiac stress test in AM followed by her BKA. She feels ready. She reports being able to walk to the bedside chair and restroom by herself and does not like when peopl ebother her. She denies any lightheadedness or any palpitations, since starting the carvedilol. Tolerating full diet. NPO tonight at midnight. (Jesus Mendiola MD, R3) Objective Vitals Vital Signs Date Time Temp Pulse Resp B/P (MAP) Pulse Ox O2 Delivery O2 Flow Rate FiO2 09/27/17 13:34 97.9 75 19 173/78 (109) 93 09/27/17 08:00 97.8 75 16 154/67 (96) 91 09/27/17 08:00 73 09/27/17 08:00 73 09/27/17 04:31 98.5 72 18 133/65 (87) 92 09/27/17 04:16 79 09/27/17 00:21 76 09/27/17 00:00 98.7 78 18 149/66 (93) 100 09/26/17 20:00 97.4 77 16 140/67 (91) 93 09/26/17 19:45 76 09/26/17 16:34 86 09/26/17 16:00 96.4 72 19 141/65 (90) 98 I/O 09/26/17 09/26/17 09/26/17 09/27/17 09/27/17 09/27/17 07:00 15:00 23:00 07:00 15:00 23:00 Intake Total 50 ml 820 ml 50 ml Balance 50 ml 820 ml 50 ml Intake Oral 720 ml IV Total 50 ml 100 ml 50 ml # Voids 0 # Bowel Movements 3 1 (Jesus Mendiola MD, R3) Result Diagram: 09/26/17 0730 09/27/17 0617 Imaging Last 72 hours Impressions Chest X-Ray 09/26/17 0000 Signed Impressions: Service Date/Time: September 10:16 - CONCLUSION: 1. Questionable small apical pneumothorax on the left. 2. Cardiomegaly with pulmonary vascular engorgement. 3. No infiltrates or effusions. Praneeth Villa Jr., MD Objective Remarks GEN: Well-developed, well-nourished patient. No acute distress. CV: Regular rate and rhythm without obvious murmurs LUNGS: Coarse breath sounds on right lower lobe with rhonchi bilaterally, prolonged expiratory phase GI: nondistended, soft, TTP throughout, abdominal binder in place. Drain in place and is CDI. EXT: No edema, chronic venous stasis changes, present. No calf tenderness. Right foot wrapped in Sarath bandage. Clean and dry. Left side AV fistula with palpable bruit. NEURO/PSYCH: Awake, alert. Appropriate insight and judgment. Normal speech (Jesus Mendiola MD, R3) A/P Assessment and Plan 72 y/o with chronic history of HTN, DM, ESRD, chronic foot wounds presents from podiatry clinic for evaluation. Admitted for osteomyelitis with debridement and possible amputation. Developed a GI bleed during hospitalization. Hemicolectomy performed 09/18/2017. Scheduled for BKA on 2017. Discharge Planning Will need BTK amputation later this week once stable postoperatively from hemicolectomy. Will need SNF after BTK amputation. (Jesus Mendiola MD, R3) Attending Attestation Patient seen and examined with Dr Mendiola. Reviewed EKGs and echo. Patient would benefit from preoperative ischemia workup. Stress echo ordered, surgeon notified. No anticoagulation in patient with anemia status post recent partial colectomy due to GI bleed. Could reconsider once pt status post BKA. Also, will discuss SARATH-I with renal, consider adding if appropriate at later time. Continue supportive management, rate control, tele. Agree with plan of care as discussed with me and documented in the resident note. (Anel Blair MD) Problem List: (1) GI bleed ICD Codes: K92.2 - Gastrointestinal hemorrhage, unspecified Status: Acute Plan: PLAN: S/P hemicolectomy with surgical anastomosis. Now having formed BMs and abdominal pain is improving. H&H stable x 24 hours. Given 1 unit of PRBCs on 09/25/2017. Continue IV Protonix 40 mg IV BID. Tolerating a reg basic diet at this time. Pain control with [place] 5-325 mg q 4 hours Pain 1-10. Monitor vitals. Aggressive PT as tolerated. (2) High risk of cardiac event ICD Codes: Z91.89 - Other specified personal risk factors, not elsewhere classified Plan: Cardiovascular risk factors are many, including T2DM, hypertension, ESRD on dialysis. Given these risk factors, and a major/high risk surgery on 2017, we highly recommend getting a cardiovascular/Lexiscan nuclear stress test. If showing any perfusion deficits, would hold off on surgery at this time. Last ECHO 05/2013, repeat during this hospitalization showed: "Mildly reduced estimated ejection fraction in the range of 45 through 50%. Mild concentric left ventricular hypertrophy. Updated peak pulmonary arterial pressure of 52.1 mmHg. Mild to moderate tricuspid valve regurgitation. Mild to moderate pulmonary valve regurgitation." (3) Atrial fibrillation ICD Codes: I48.91 - Unspecified atrial fibrillation Status: Acute Plan: HR 135 overnight on 09/26/2017. Found to have a fib on tele. New diagnosis. Beta [place], Carvedilol 3.125 PO BID was started on 09/26/2017 and she tolerated this well. Normal sinus rhythm on exam today . We will continue this medication and keep her on telemetry. 12-lead EKG showed possible Q waves in V1-V3, that were present during prior admissions. Likely signifying a previous anterior wall infarction. No other acute ST segment depressions, elevations, or t-wave inversions. (4) Respiratory crackles at left lung base ICD Codes: R09.89 - Other specified symptoms and signs involving the circulatory and respiratory systems Plan: Likely atelectasis. CXR on 09/25/2017 showed possible tiny apical pneumo on left. Will repeat today. No fluid, effusion, or consolidation noted on exam yesterday 09/25/2017. Maintaining O2 sats > 90%. (5) Hypoglycemia ICD Codes: E16.2 - Hypoglycemia, unspecified Plan: Resolved. When she is NPO she tends to drop to ~40 mg/dl. Her morning BG was 84. Will start D5-LR at 42 ml/hr at 0400 on the day of surgery in order to decrease the risk of hypoglycemia. Continue to monitor for hypoglycemia. (6) Osteomyelitis of ankle or foot, right, acute ICD Codes: M86.171 - Other acute osteomyelitis, right ankle and foot Status: Acute Plan: MRI significant for osteomyelitis and multiple bones of the foot and ankle. Is scheduled next week for a below the knee amputation on the right, by Dr. Fleming -Wound cultures showing Corynebacterium sp. -Blood cultures NGTD Podiatry consulted: appreciate recommendations * 09/07/17: Debridement of ulcers on right foot/ankle 3 * Plan on 09/[address] Reaves - postponed secondary to acute gastrointestinal bleeding. Rescheduled for later this week. Vascular consulted: appreciate recommendations * Pt with severe vascular changes, diabetic neuropathy Imaging: * MRI foot: Osteomyelitis develop at the fifth metatarsal base. Slight worsening osteomyelitis of the great toe head of the proximal phalanx and distal half of the distal phalanx. Worsening osteomyelitis of the fibular sesamoid. The superficial osteomyelitis of the tibial sesamoid not significantly changed. No drainable abscess. * MRI ankle: Severe soft tissue ulceration laterally and posteromedially of the ankle/hindfoot. Fluid collection in the posterior lateral gutter, potentially an abscess. Osteomyelitis of the calcaneus. Osteomyelitis of the distal fibula possible osteomyelitis focally of the posterior medial aspect of the talus. * Foot x-ray: Osteopenia, no acute bony abnormality. Medications * Vancomycin (09/06- per nephrology dosing/titration * Zosyn (09/07- (7) ESRD (end stage renal disease) on dialysis ICD Codes: N18.6 - End stage renal failure on dialysis; Z99.2 - Dependence on renal dialysis Status: Chronic Plan: Dialysis Saturday, Saturday, Saturday typically. Sees Dr. Buchanan, real estate consultant outpatient. No urine output Nephrology consulted: Appreciate recommendations * Resume dialysis 3x/wk * Monitor phosphorus intermittently, use binders as appropriate. * Fluid restriction (8) Diabetes mellitus ICD Codes: E11.9 - Type 2 diabetes mellitus without complications Status: Chronic Plan: History of long-term diabetes on insulin at home -Sliding scale insulin -Monitor accuchecks (9) Hypertension ICD Codes: I10 - Hypertension Status: Chronic Plan: D/c hydralazine given tachycardia and starting beta [place]. Continue to asses VS q 4 hours and make adjustments to medications accordingly. Cont home amlodipine. (10) Hypothyroidism ICD Codes: E03.9 - Hypothyroidism Status: Chronic Plan: Continue home Synthroid. (11) FEN Status: Acute Plan: Fluids: D/c IVF. No signs of fluid overload on exam this AM. Start D5LR at 42 ml/hr on morning of surgery 09/28/2017, due to repeated hypoglycemia throughout this admission. Electrolytes: monitor, replace PRN. Nutrition: As guided by GI DVT ppx: hold chemoppx due to surgery, SCDs SDW Dr. Blair. (Jesus Mendiola MD, R3) Problem Qualifiers (1) GI bleed: Qualified Codes: K57.91 - Diverticulosis of intestine, part unspecified, without perforation or abscess with bleeding (2) Diabetes mellitus: Qualified Codes: E11.42 - Type 2 diabetes mellitus with diabetic polyneuropathy ; Z79.4 - intermediate manager (current) use of insulin (3) Hypertension: Qualified Codes: I10 - Essential (primary) hypertension (4) Hypothyroidism: Qualified Codes: E03.9 - Hypothyroidism, unspecified Jesus Mendiola MD, R3 Sep 27, 2017 14:14 Anel Blair MD Sep 27, 2017 14:25
--- NOTE | 2017-09-27 14:17 | HHI.NPPN ---
Subjective General Problems: Anemia Renal Failure: Chronic, End Stage Renal Disease Interval History BKA postponed until tomorrow due to new onset A fib. Seen during dialysis. She is in sinus rhythm. (Teresa Parekh) Review of Systems General Constitutional: Fever, Fatigue (Teresa Parekh) Respiratory Respiratory Remarks Denies any SOB (Teresa Parekh) Cardiovascular Cardiac Remarks Denies any CP (Teresa Parekh) Gastrointestinal Gastrointestinal: Blood/Tarry Stools (Teresa Parekh) Musculoskeletal MS: Pain/Stiffness (Teresa Parekh) Skin Skin: Ulcers (Teresa Parekh) Psych Psych: Depression (Teresa Parekh) Objective Data Data Vital Signs Date Time Temp Pulse Resp B/P (MAP) Pulse Ox O2 Delivery O2 Flow Rate FiO2 09/27/17 13:34 97.9 75 19 173/78 (109) 93 09/27/17 08:00 97.8 75 16 154/67 (96) 91 09/27/17 08:00 73 09/27/17 08:00 73 09/27/17 04:31 98.5 72 18 133/65 (87) 92 09/27/17 04:16 79 09/27/17 00:21 76 09/27/17 00:00 98.7 78 18 149/66 (93) 100 09/26/17 20:00 97.4 77 16 140/67 (91) 93 09/26/17 19:45 76 09/26/17 16:34 86 09/26/17 16:00 96.4 72 19 141/65 (90) 98 (Teresa Parekh) -: 09/26/17 0730 09/27/17 0617 Imaging Last 72 hours Impressions Chest X-Ray 09/26/17 0000 Signed Impressions: Service Date/Time: September 10:16 - CONCLUSION: 1. Questionable small apical pneumothorax on the left. 2. Cardiomegaly with pulmonary vascular engorgement. 3. No infiltrates or effusions. Praneeth Villa Jr., MD (Teresa Parekh) Physical Exam General Appearance: Well Developed, No Acute Distress, Comfortable, Malnourished (Teresa Parekh. RAILROAD SIGNAL TECHNICIAN) Eyes Eye Exam: Pupils Equal (Teresa ParekhP) Throat Throat Exam: Oral Mucosa [place] & Moist (Teresa Parekh RAILROAD SIGNAL TECHNICIAN) Neck Neck Exam: Neck Supple (Teresa Parekh RAILROAD SIGNAL TECHNICIAN) Pulmonary Resp Exam: Clear Bilaterally, Breath Sounds Equal (Teresa Parekh RAILROAD SIGNAL TECHNICIAN) Cardiology CV Exam: Regular, Normal Sinus Rhythm, Good Perfusion (Teresa Parekh RAILROAD SIGNAL TECHNICIAN) Gastrointestinal/Abdomen GI Exam: Soft, Non-Tender, Bowel Sounds Present, Positive Bowel Movement GI Remarks Abdominal binder in place (Teresa ParekhP) Musculoskeletal MS Exam: Normal Tone, Good Strength (Teresa ParekhP) Integumentary Skin Exam: Warm, Dry Skin Remarks right foot ulcer, dressing in place. (Teresa ParekhP) Extremeties Extremities Exam: No Edema Extremeties Remarks Left arm AVF + bruit/thrill (Teresa Parekh. RAILROAD SIGNAL TECHNICIAN) Neurologic Neuro Exam: Alert, Awake, Oriented, Speech Clear, Moving All Extremities (Teresa ParekhP) Psychiatric Psych Exam: Appropriate Responses (Teresa Parekh) Assessment/Plan Discussed Condition With: Patient Assessment Summary: Anemia of CKD, Hypertension, End Stage Renal Disease Problem List: (1) ESRD (end stage renal disease) on dialysis ICD Codes: N18.6 - End stage renal failure on dialysis; Z99.2 - Dependence on renal dialysis Status: Chronic Plan: Seen during dialysis today on 3K, 350 BFR, goal 2L Continue HD MWF Monitor fluid and electrolytes. Continue current plan. Left arm AVF functions well. Avoid IVF administration. (2) GI bleed ICD Codes: K92.2 - Gastrointestinal hemorrhage, unspecified Status: Acute Plan: GI and general surgery following, s/p L hemicolectomy Follow H/H (3) Anemia ICD Codes: D64.9 - Anemia, unspecified Status: Acute Plan: Persistently anemic, Give a unit of PRBC on 09/25/17 in preparation for surgery. On Epogen with dialysis.Given Venofer. (4) Foot ulcer, right ICD Codes: L97.519 - Non-pressure chronic ulcer of other part of right foot with unspecified severity Status: Acute Plan: s/p debridement. BKA planned. Vascular surgery following. On Zosyn and vancomycin. Antibiotics to be stopped after surgery. (5) Metabolic bone disease ICD Codes: E88.9 - Metabolic disorder, unspecified; M90.80 - Osteopathy in diseases classified elsewhere, unspecified site Status: Acute Plan: monitor phosphorus intermittently. continue Renvela, on two with meals. She has missed several doses (6) Hypertension ICD Codes: I10 - Hypertension Status: Chronic Plan: monitor BP, continue medications. (7) Diabetes mellitus ICD Codes: E11.9 - Type 2 diabetes mellitus without complications Status: Chronic Plan: Continue insulin coverage while hospitalized, maintain blood glucose between 140 and 180. Use D10 @ 20 while NPO. (Teresa Parekh) Plan patient was seen and examined. Agree with above assessment and plan. (Dao Greene MD) Problem Qualifiers (1) GI bleed: Qualified Codes: K57.91 - Diverticulosis of intestine, part unspecified, without perforation or abscess with bleeding (2) Foot ulcer, right: Qualified Codes: L97.512 - Non-pressure chronic ulcer of other part of right foot with fat layer exposed (3) Hypertension: Qualified Codes: I10 - Essential (primary) hypertension (4) Diabetes mellitus: Qualified Codes: E11.42 - Type 2 diabetes mellitus with diabetic polyneuropathy ; Z79.4 - long-term (current) use of insulin Teresa Parekh Sep 27, 2017 14:17 Dao Greene MD Sep 27, 2017 15:45
[2017-09-27] MEDS: EPOETIN ALFA 10,000 UNITS/ML VIAL IV PUSH PRN (17:10)
[2017-09-27] MEDS: VANCOMYCIN INJ 1,000 MG in SODIUM CHLOR 0.9% 250 ML INJ 250 ML IV SCH (17:11)
[2017-09-27] MEDS: hydrOXYzine HCL 25 MG TAB PO SCH (20:04)
[2017-09-27] MEDS: MIRTAZAPINE 15 MG TAB PO SCH (20:04)
[2017-09-28] VITALS (9 sets, daily range): BP systolic 141–181; BP diastolic 67–107; PULSE 71–83; RESP 16–18; TEMP 95.3–97.9; O2SAT 93–99
--- NOTE | 2017-09-28 01:31 | EKG ---
Date Performed: 09/26/2017 Time Performed: 13:45:13 PTAGE: 72 years EKG: Sinus rhythm MARKED LEFT AXIS DEVIATION POSSIBLE RIGHT VENTRICULAR CONDUCTION DELAY SEPTAL MYOCARDIAL INFARCTION , PROBABLY OLD ABNORMAL ECG PREVIOUS TRACING : 07/22/2017 15.36 Since the prior tracing, there has been no significant montes DOCTOR: Francesco Abraham Interpretating Date/Time 09/28/2017 01:29:29
[2017-09-28] MEDS ORDERED: DEXTROSE 5%-LACTATED RING INJ 1,000 ML IV SCH (04:00)
[2017-09-28] MEDS: LEVOTHYROXINE SODIUM 75 MCG TAB PO SCH (04:16)
[2017-09-28] MEDS: PIPERACIL-TAZO 2.25 GM PREMIX 50 ML IV SCH ×3 (04:16→20:52)
--- NOTE | 2017-09-28 07:17 | HHI.FPPN ---
Subjective Remarks Feelign well this AM. No concerns questions or complaints. Yesterday ate a complete meal without difficulty. Has been NPO since midnight. Requested oxygen last night because she "just felt like I needed it". Denies SOB currently. Abdominal pain is well controlled. She knows that she is going for a cardiac stress test. If that shows no signs of ischemia we will proceed with a BKA. All questions answered. (Jesus Mendiola MD, R3) Objective Vitals Vital Signs Date Time Temp Pulse Resp B/P (MAP) Pulse Ox O2 Delivery O2 Flow Rate FiO2 09/28/17 04:00 97.1 78 16 155/74 (101) 94 09/28/17 00:00 97.9 72 16 155/72 (99) 93 09/27/17 23:57 74 09/27/17 20:00 97.1 79 16 160/74 (102) 94 09/27/17 19:59 82 09/27/17 13:34 97.9 75 19 173/78 (109) 93 09/27/17 08:00 97.8 75 16 154/67 (96) 91 09/27/17 08:00 73 09/27/17 08:00 73 09/27/17 08:00 97 Room Air I/O 09/27/17 09/27/17 09/27/17 09/28/17 09/28/17 09/28/17 07:00 15:00 23:00 07:00 15:00 23:00 Intake Total 50 ml 850 ml 50 ml Output Total 2000 ml Balance 50 ml -1150 ml 50 ml Intake Oral 800 ml 0 ml IV Total 50 ml 50 ml 50 ml Hemodialysis 2000 ml # Voids 1 # Bowel Movements 1 1 (Jesus Mendiola MD, R3) Result Diagram: 09/26/17 0730 09/27/17 0617 Imaging Last 72 hours Impressions Chest X-Ray 09/26/17 0000 Signed Impressions: Service Date/Time: September 10:16 - CONCLUSION: 1. Questionable small apical pneumothorax on the left. 2. Cardiomegaly with pulmonary vascular engorgement. 3. No infiltrates or effusions. Praneeth Villa Jr., MD Objective Remarks GEN: Well-developed, well-nourished patient. No acute distress. CV: Regular rate and rhythm without obvious murmurs LUNGS: Coarse breath sounds on right lower lobe with rhonchi bilaterally, prolonged expiratory phase GI: nondistended, soft, TTP throughout, abdominal binder in place. Drain in place and is CDI. EXT: No edema, chronic venous stasis changes, present. No calf tenderness. Right foot wrapped in Sarath bandage. Clean and dry. Left side AV fistula with palpable bruit. NEURO/PSYCH: Awake, alert. Appropriate insight and judgment. Normal speech (Jesus Mendiola MD, R3) A/P Assessment and Plan 72 y/o with chronic history of HTN, DM, ESRD, chronic foot wounds presents from podiatry clinic for evaluation. Admitted for osteomyelitis with debridement and possible amputation. Developed a GI bleed during hospitalization. Hemicolectomy performed 09/18/2017. Scheduled for BKA on 2017. Discharge Planning Will need BTK amputation later this week once stable postoperatively from hemicolectomy. Will need SNF after BTK amputation. (Jesus Mendiola MD, R3) Attending Attestation Patient seen and examined. Case reviewed and discussed with Dr Mendiola. Agree with plan of care as discussed with me and documented in the resident note. (Anel Blair MD) Problem List: (1) GI bleed ICD Codes: K92.2 - Gastrointestinal hemorrhage, unspecified Status: Acute Plan: PLAN: S/P hemicolectomy with surgical anastomosis. Now having formed BMs and abdominal pain is improving. H&H stable x 24 hours. Given 1 unit of PRBCs on 09/25/2017. Continue IV Protonix 40 mg IV BID. Tolerating a reg basic diet at this time. NPo since midnight. Pain control with [place] 5-325 mg q 4 hours Pain 1-10. Monitor vitals. Aggressive PT as tolerated. (2) High risk of cardiac event ICD Codes: Z91.89 - Other specified personal risk factors, not elsewhere classified Plan: Cardiovascular risk factors are many, including T2DM, hypertension, ESRD on dialysis. Given these risk factors, and a major/high risk surgery on 2017, we highly recommend getting a cardiovascular/Lexiscan nuclear stress test. If showing any perfusion deficits, would hold off on surgery at this time. Last ECHO 05/2013, repeat during this hospitalization showed: "Mildly reduced estimated ejection fraction in the range of 45 through 50%. Mild concentric left ventricular hypertrophy. Updated peak pulmonary arterial pressure of 52.1 mmHg. Mild to moderate tricuspid valve regurgitation. Mild to moderate pulmonary valve regurgitation." "HFpEF borderline". (3) Atrial fibrillation ICD Codes: I48.91 - Unspecified atrial fibrillation Status: Acute Plan: HR 135 overnight on 09/26/2017. Found to have a fib on tele. New diagnosis. Beta [place], Carvedilol 3.125 PO BID was started on 09/26/2017 and she tolerated this well. Normal sinus rhythm on exam today . We will continue this medication and keep her on telemetry. 12-lead EKG showed possible Q waves in V1-V3, that were present during prior admissions. 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 No other acute ST segment depressions, elevations, or t-wave inversions. (4) Respiratory crackles at left lung base ICD Codes: R09.89 - Other specified symptoms and signs involving the circulatory and respiratory systems Plan: Likely atelectasis. CXR on 09/25/2017 showed possible tiny apical pneumo on left. No fluid, effusion, or consolidation noted on exam yesterday 09/25/2017. Maintaining O2 sats > 90%. (5) Hypoglycemia ICD Codes: E16.2 - Hypoglycemia, unspecified Plan: Resolved. When she is NPO she tends to drop to ~40 mg/dl. Her morning BG was 84. Will start D5-LR at 42 ml/hr at 0400 on the day of surgery in order to decrease the risk of hypoglycemia. Continue to monitor for hypoglycemia. (6) Osteomyelitis of ankle or foot, right, acute ICD Codes: M86.171 - Other acute osteomyelitis, right ankle and foot Status: Acute Plan: MRI significant for osteomyelitis and multiple bones of the foot and ankle. Is scheduled next week for a below the knee amputation on the right, by Dr. Reaves. -Wound cultures showing Corynebacterium sp. -Blood cultures NGTD Podiatry consulted: appreciate recommendations * 09/07/17: Debridement of ulcers on right foot/ankle 3 * Plan on 09/[address] Reaves - postponed secondary to acute gastrointestinal bleeding. Rescheduled for later this week. Vascular consulted: appreciate recommendations * Pt with severe vascular changes, diabetic neuropathy Imaging: * MRI foot: Osteomyelitis develop at the fifth metatarsal base. Slight worsening osteomyelitis of the great toe head of the proximal phalanx and distal half of the distal phalanx. Worsening osteomyelitis of the fibular sesamoid. The superficial osteomyelitis of the tibial sesamoid not significantly changed. No drainable abscess. * MRI ankle: Severe soft tissue ulceration laterally and posteromedially of the ankle/hindfoot. Fluid collection in the posterior lateral gutter, potentially an abscess. Osteomyelitis of the calcaneus. Osteomyelitis of the distal fibula possible osteomyelitis focally of the posterior medial aspect of the talus. * Foot x-ray: Osteopenia, no acute bony abnormality. Medications * Vancomycin (09/06- per nephrology dosing/titration * Zosyn (09/07- (7) ESRD (end stage renal disease) on dialysis ICD Codes: N18.6 - End stage renal failure on dialysis; Z99.2 - Dependence on renal dialysis Status: Chronic Plan: Dialysis Saturday, Saturday, Saturday typically. Sees Dr. Buchanan, safety scientist outpatient. No urine output Nephrology consulted: Appreciate recommendations * Resume dialysis 3x/wk * Monitor phosphorus intermittently, use binders as appropriate. * Fluid restriction (8) Diabetes mellitus ICD Codes: E11.9 - Type 2 diabetes mellitus without complications Status: Chronic Plan: History of long-term diabetes on insulin at home -Sliding scale insulin -Monitor accuchecks (9) Hypertension ICD Codes: I10 - Hypertension Status: Chronic Plan: D/c hydralazine given tachycardia and starting beta [place]. Continue to asses VS q 4 hours and make adjustments to medications accordingly. Cont home amlodipine. (10) Hypothyroidism ICD Codes: E03.9 - Hypothyroidism Status: Chronic Plan: Continue home Synthroid. (11) FEN Status: Acute Plan: Fluids: Start D5LR at 42 ml/hr on morning of surgery 09/28/2017, due to repeated hypoglycemia throughout this admission. Electrolytes: monitor, replace PRN. Nutrition: As guided by GI DVT ppx: hold chemoppx due to surgery, SCDs WDW Dr. Blair. 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
[2017-09-28] MEDS: INSULIN ASPART SUPPLEMENTAL SCALE SQ SCH ×4 (07:28→20:46)
[2017-09-28 07:58] LABS: AUTOMATED NEUTROPHIL # 4.3 TH/MM3 (1.8-7.7); BASOPHIL # 0.1 TH/MM3 (0-0.2); BASOPHIL % 0.9 % (0.0-2.0); EOSINOPHIL # 0.7 TH/MM3 (0-0.4); EOSINOPHIL % 8.9 % (0.0-4.0); HEMOGLOBIN 8.8 GM/DL (11.6-15.3); LYMPH % 21.1 % (9.0-44.0); LYMPHOCYTE # 1.6 TH/MM3 (1.0-4.8); MEAN CELL VOLUME 86.1 FL (80.0-100.0); MEAN CORPUSCULAR HGB CONC 33.7 % (32.0-36.0); MEAN PLATELET VOLUME 8.6 FL (7.0-11.0); MONO % 12.7 % (0.0-8.0); NEUT % 56.4 % (16.0-70.0); PLATELET COUNT 281 TH/MM3 (150-450); RED BLOOD COUNT 3.02 MIL/MM3 (4.00-5.30); RED CELL DISTRIBUTION WIDTH 17.2 % (11.6-17.2); WHITE BLOOD COUNT 7.6 TH/MM3 (4.0-11.0)
[2017-09-28] MEDS: SEVELAMER CARBONATE 800 MG TAB PO SCH ×3 (08:05→17:17)
[2017-09-28] MEDS: DOCUSATE SODIUM 50 MG/SENNA 8.6 MG TAB PO SCH ×2 (08:06→20:45)
[2017-09-28] MEDS: CARVEDILOL 3.125 MG TAB PO SCH ×2 (08:06→20:45)
[2017-09-28] MEDS: PANTOPRAZOLE SODIUM 40 MG VIAL IV PUSH SCH ×2 (08:07→20:45)
[2017-09-28] MEDS: VITAMIN B CMPLX/VITC/FOLIC AC CAP PO SCH (08:07)
[2017-09-28] MEDS: SODIUM CHLORIDE 0.9% FLUSH 10 ML FLUSH IV FLUSH SCH ×2 (08:07→20:59)
[2017-09-28 08:27] LABS: ALBUMIN 1.3 GM/DL (3.4-5.0); ALKALINE PHOSPHATASE 162 U/L (45-117); ALT (GPT) 7 U/L (10-53); AST (GOT) 27 U/L (15-37); BLOOD UREA NITROGEN 19 MG/DL (7-18); CALCIUM 7.7 MG/DL (8.5-10.1); CHLORIDE 102 MEQ/L (98-107); CREATININE 4.67 MG/DL (0.50-1.00); GLOMERULAR FILTRATION RATE 11 ML/MIN (>89); GLUCOSE,RANDOM 81 MG/DL (74-106); SODIUM (NA) 139 MEQ/L (136-145); TOTAL BILIRUBIN ADULT 0.3 MG/DL (0.2-1.0)
[2017-09-28] MEDS ORDERED: REGADENOSON INJ 0.4 MG/5 ML SYR IV ONE (09:12)
--- NOTE | 2017-09-28 10:06 | RADRPT ---
EXAM DATE/TIME: 09/27/2017 11:57 [facility] COMPARISON: No previous studies available for comparison. INDICATIONS : Risk stratification for surgery. Unable to walk on treadmill. DOSE: 30.1 mCi Tc99m Myoview at stress. 29.4 mCi Tc99m Myoview at rest. 0.4 mg Lexiscan STRESS SYMPTOMS: Shortness of breath. EJECTION FRACTION: 51% MEDICAL HISTORY : Diabetes mellitus type 2. Hypertension. Renal failure, chronic. SURGICAL HISTORY : Nephrectomy, right. Hysterectomy. ENCOUNTER: Initial ACUITY: 1 day PAIN SCALE: 0/10 LOCATION: chest TECHNIQUE: The patient underwent pharmacologic stress with infusion of prescribed dose. Continuous ECG tracing was monitored during stress. Gated SPECT imaging was performed after stress and conventional SPECT i maging was performed at rest. The examination was performed on a SPECT/CT scanner, both attenuation and non-corrected datasets were reviewed. FINDINGS: DISTRIBUTION: The maximum perfused segment at stress is in the septal wall. PERFUSION STUDY: The pattern of perfusion at stress is within normal limits. GATED STUDY: There is intact wall motion and thickening without hypokinetic or dyskinetic segments. CONCLUSION: Unremarkable myocardial perfusion examination. RISK CATEGORY: Low Nain Castillo MD on September 28, 2017 at 10:04 Board Certified Radiologist. This report was verified electronically.
[2017-09-28] MEDS ORDERED: ONDANSETRON HCL 4 MG/2 ML VIAL IV ONE (12:00)
[2017-09-28] MEDS ORDERED: LIDOCAINE HCL 1% PF 5 ML SYRINGE OTHER ONE (12:00)
[2017-09-28] MEDS ORDERED: PROPOFOL 200 MG/20 ML AMP IV ONE (12:00)
[2017-09-28] MEDS ORDERED: ROCURONIUM INJ 50 MG/5 ML SYRINGE IV PUSH ONE (12:00)
[2017-09-28] MEDS ORDERED: ePHEDrine/NS 25 MG/5 ML SYRINGE IV ONE (12:00)
[2017-09-28] MEDS ORDERED: SODIUM CHLORID 0.9% 500 ML INJ 500 ML IV ONE (12:00)
[2017-09-28] MEDS ORDERED: DO NOT ADM ANY ANTICOAGULANT DRUGS PRN (13:00)
[2017-09-28] MEDS: oxyCODONE/ACETAMINOPHEN 5 MG/325 MG TAB PO PRN ×2 (15:43→20:52)
--- NOTE | 2017-09-28 16:43 | HHI.NPPN ---
Subjective General Problems: Anemia Renal Failure: Chronic, End Stage Renal Disease Review of Systems General Constitutional: Fever, Fatigue Respiratory Respiratory Remarks Denies any SOB Cardiovascular Cardiac Remarks Denies any CP Gastrointestinal Gastrointestinal: Blood/Tarry Stools Musculoskeletal MS: Pain/Stiffness Skin Skin: Ulcers Psych Psych: Depression Objective Data Data 09/28/17 09/29/17 19:00 07:00 Intake Total 200 ml Output Total 20 ml Balance 180 ml Other 200 ml Estimated Blood Loss 20 ml Vital Signs Date Time Temp Pulse Resp B/P (MAP) Pulse Ox O2 Delivery O2 Flow Rate FiO2 09/28/17 13:25 75 15 136/66 (89) 100 Nasal Cannula 2 09/28/17 13:12 78 15 138/65 (89) 95 Nasal Cannula 2 09/28/17 13:00 98.2 78 15 120/60 (80) 95 Nasal Cannula 2 09/28/17 12:00 97.4 77 18 160/71 (100) 95 09/28/17 08:00 95.3 71 16 181/74 (109) 99 09/28/17 04:00 97.1 78 16 155/74 (101) 94 09/28/17 00:00 97.9 72 16 155/72 (99) 93 09/27/17 23:57 74 09/27/17 20:00 97.1 79 16 160/74 (102) 94 09/27/17 19:59 82 -: 09/28/17 0724 09/28/17 0724 Physical Exam General Appearance: Well Developed, No Acute Distress, Comfortable, Malnourished Eyes Eye Exam: Pupils Equal Throat Throat Exam: Oral Mucosa [place] & Moist Neck Neck Exam: Neck Supple Pulmonary Resp Exam: Clear Bilaterally, Breath Sounds Equal Cardiology CV Exam: Regular, Normal Sinus Rhythm, Good Perfusion Gastrointestinal/Abdomen GI Exam: Soft, Non-Tender, Bowel Sounds Present, Positive Bowel Movement Musculoskeletal MS Exam: Normal Tone, Good Strength Integumentary Skin Exam: Warm, Dry Extremeties Extremities Exam: No Edema Neurologic Neuro Exam: Alert, Awake, Oriented, Speech Clear, Moving All Extremities Psychiatric Psych Exam: Appropriate Responses Assessment/Plan Discussed Condition With: Patient Assessment Summary: Anemia of CKD, Hypertension, End Stage Renal Disease Problem List: (1) ESRD (end stage renal disease) on dialysis ICD Codes: N18.6 - End stage renal failure on dialysis; Z99.2 - Dependence on renal dialysis Status: Chronic Plan: HD Yesterday 2L Continue HD MWF Monitor fluid and electrolytes. Continue current plan. Left arm AVF functions well. Avoid IVF administration. s/p Rt BKA stable dc D5LR as on HD switch to D5W at 42 cc/hr diet change as well to Renal/Diabetic (2) GI bleed ICD Codes: K92.2 - Gastrointestinal hemorrhage, unspecified Status: Acute Plan: GI and general surgery following, s/p L hemicolectomy Follow H/H (3) Anemia ICD Codes: D64.9 - Anemia, unspecified Status: Acute Plan: Persistently anemic, Give a unit of PRBC on 09/25/17 in preparation for surgery. On Epogen with dialysis.Given Venofer. (4) Foot ulcer, right ICD Codes: L97.519 - Non-pressure chronic ulcer of other part of right foot with unspecified severity Status: Acute Plan: s/p BKA Vascular surgery following. On Zosyn and vancomycin. Antibiotics to be stopped after surgery. (5) Metabolic bone disease ICD Codes: E88.9 - Metabolic disorder, unspecified; M90.80 - Osteopathy in diseases classified elsewhere, unspecified site Status: Acute Plan: monitor phosphorus intermittently. continue Renvela, on two with meals. She has missed several doses (6) Hypertension ICD Codes: I10 - Hypertension Status: Chronic Plan: monitor BP, continue medications. (7) Diabetes mellitus ICD Codes: E11.9 - Type 2 diabetes mellitus without complications Status: Chronic Plan: Continue insulin coverage while hospitalized, maintain blood glucose between 140 and 180. Use D10 @ 20 while NPO. Problem Qualifiers (1) GI bleed: Qualified Codes: K57.91 - Diverticulosis of intestine, part unspecified, without perforation or abscess with bleeding (2) Foot ulcer, right: Qualified Codes: L97.512 - Non-pressure chronic ulcer of other part of right foot with fat layer exposed (3) Hypertension: Qualified Codes: I10 - Essential (primary) hypertension (4) Diabetes mellitus: Qualified Codes: E11.42 - Type 2 diabetes mellitus with diabetic polyneuropathy ; Z79.4 - custodial (current) use of insulin Kandi Castanon MD Sep 28, 2017 16:43
[2017-09-28] MEDS ORDERED: DEXTROSE 5% IN WATE 1000ML INJ 1,000 ML IV SCH (16:45)
--- NOTE | 2017-09-28 19:09 | HHI.FPPN ---
Addendum to progress note ADDENDUM Reason for addendum: Additonal documentation Additional information Mrs. Bolivar is a pleasant 72 y/o black female who has a PMHx of T2DM, ESRD on dialysis M/W/F, hypertension, and osteomyelitis of her right lower extremity. She was admitted after failing outpatient ABX for her right foot diabetic ulcer. She did develop a Lower GI bleed during admission and despite 2 colonoscopies, 1 RBC bleeding scan, and intervential radiology artery embolization, required 6 units of PRBCs and a hemicoloectomy. She recovered well from this procedure. She more recently developed a fib, and was started on carvedilol. Her rate has been controlled since this time. Given her high CV risk , a cardiac stress test was performed prior to a BKA on 09/28/[address] Reaves. Once she is medically stable, and working with PT she would be a great candidate for SNF vs. Home with home health care (pending her abilities after BKA). To note, she also becomes hypoglycemic to ~40, if not eating for >12 hours and may need D5LR in small amounts if made NPO. Jesus Mendiola MD, R3 Sep 28, 2017 19:09
[2017-09-28] MEDS: hydrOXYzine HCL 25 MG TAB PO SCH (20:46)
[2017-09-28] MEDS: MIRTAZAPINE 15 MG TAB PO SCH (20:46)
[2017-09-29] VITALS (8 sets, daily range): BP systolic 145–170; BP diastolic 65–75; PULSE 72–101; RESP 16–18; TEMP 97.8–99.4; O2SAT 97–100
[2017-09-29] MEDS: oxyCODONE/ACETAMINOPHEN 5 MG/325 MG TAB PO PRN ×3 (03:15→15:55)
[2017-09-29] MEDS: LEVOTHYROXINE SODIUM 75 MCG TAB PO SCH (06:07)
[2017-09-29] MEDS: PIPERACIL-TAZO 2.25 GM PREMIX 50 ML IV SCH ×3 (06:07→20:30)
[2017-09-29] MEDS: INSULIN ASPART SUPPLEMENTAL SCALE SQ SCH ×4 (07:28→19:19)
[2017-09-29] MEDS: VITAMIN B CMPLX/VITC/FOLIC AC CAP PO SCH (07:57)
[2017-09-29] MEDS: CARVEDILOL 3.125 MG TAB PO SCH ×2 (07:57→19:19)
[2017-09-29] MEDS: PANTOPRAZOLE SODIUM 40 MG VIAL IV PUSH SCH ×2 (07:58→19:19)
[2017-09-29] MEDS: SEVELAMER CARBONATE 800 MG TAB PO SCH ×6 (07:58→17:00)
[2017-09-29] MEDS: DOCUSATE SODIUM 50 MG/SENNA 8.6 MG TAB PO SCH ×2 (08:02→19:19)
[2017-09-29] MEDS: SODIUM CHLORIDE 0.9% FLUSH 10 ML FLUSH IV FLUSH SCH ×2 (08:02→20:29)
[2017-09-29] MEDS ORDERED: MORPHINE SULFATE 2 MG/ML INJ IV PUSH PRN (10:00)
[2017-09-29 10:29] LABS: AUTOMATED NEUTROPHIL # 6.7 TH/MM3 (1.8-7.7); BASOPHIL # 0.1 TH/MM3 (0-0.2); BASOPHIL % 0.6 % (0.0-2.0); EOSINOPHIL # 0.7 TH/MM3 (0-0.4); EOSINOPHIL % 7.1 % (0.0-4.0); HEMATOCRIT 25.8 % (35.0-46.0); HEMOGLOBIN 8.4 GM/DL (11.6-15.3); LYMPH % 16.9 % (9.0-44.0); LYMPHOCYTE # 1.8 TH/MM3 (1.0-4.8); MEAN CELL VOLUME 86.7 FL (80.0-100.0); MEAN CORPUSCULAR HEMOGLOBIN 28.3 PG (27.0-34.0); MEAN CORPUSCULAR HGB CONC 32.7 % (32.0-36.0); MEAN PLATELET VOLUME 8.8 FL (7.0-11.0); MONOCYTE # 1.3 TH/MM3 (0-0.9); NEUT % 63.4 % (16.0-70.0); PLATELET COUNT 326 TH/MM3 (150-450); RED BLOOD COUNT 2.98 MIL/MM3 (4.00-5.30); RED CELL DISTRIBUTION WIDTH 17.2 % (11.6-17.2); WHITE BLOOD COUNT 10.5 TH/MM3 (4.0-11.0)
[2017-09-29 10:57] LABS: ALBUMIN 1.4 GM/DL (3.4-5.0); ALKALINE PHOSPHATASE 172 U/L (45-117); ALT (GPT) 8 U/L (10-53); AST (GOT) 28 U/L (15-37); BICARBONATE 28.7 MEQ/L (21.0-32.0); BLOOD UREA NITROGEN 29 MG/DL (7-18); CALCIUM 7.9 MG/DL (8.5-10.1); CHLORIDE 100 MEQ/L (98-107); CREATININE 6.41 MG/DL (0.50-1.00); GLOMERULAR FILTRATION RATE 8 ML/MIN (>89); GLUCOSE,RANDOM 77 MG/DL (74-106); SODIUM (NA) 137 MEQ/L (136-145); TOTAL BILIRUBIN ADULT 0.3 MG/DL (0.2-1.0); TOTAL PROTEIN 6.4 GM/DL (6.4-8.2)
[2017-09-29] MEDS: oxyCODONE/ACETAMINOPHEN 7.5 MG/325 MG TAB PO PRN ×2 (11:06→20:30)
--- NOTE | 2017-09-29 11:42 | HHI.FPPN ---
Subjective Remarks Patient is doing well postop day #1. She is experiencing increased pain. She is refusing morphine and would rather have Percocet for her pain. She is currently tired and would like to have some time to rest. She denies fever, chills, nausea, vomiting. (Michele Palacios MD, R3) Objective Vitals Vital Signs Date Time Temp Pulse Resp B/P (MAP) Pulse Ox O2 Delivery O2 Flow Rate FiO2 09/29/17 08:00 98.6 73 16 166/72 (103) 97 09/29/17 04:27 98.9 72 17 159/70 (99) 98 09/29/17 00:16 97.8 72 17 145/65 (91) 98 09/28/17 23:59 76 09/28/17 22:06 83 09/28/17 21:45 Nasal Cannula 2.00 09/28/17 20:32 96.8 72 17 141/67 (91) 97 09/28/17 20:27 96 Nasal Cannula 2.00 09/28/17 16:00 96.9 75 18 163/107 (125) 96 09/28/17 13:25 75 15 136/66 (89) 100 Nasal Cannula 2 09/28/17 13:12 78 15 138/65 (89) 95 Nasal Cannula 2 09/28/17 13:00 98.2 78 15 120/60 (80) 95 Nasal Cannula 2 09/28/17 12:00 97.4 77 18 160/71 (100) 95 I/O 09/28/17 09/28/17 09/28/17 09/29/17 09/29/17 09/29/17 07:00 15:00 23:00 07:00 15:00 23:00 Intake Total 50 ml 250 ml 1730 ml 780 ml Output Total 20 ml 0 ml Balance 50 ml 230 ml 1730 ml 780 ml Intake Oral 0 ml 480 ml 780 ml IV Total 50 ml 50 ml 1250 ml Other 200 ml Output Urine Total 0 ml Estimated Blood Loss 20 ml # Voids 1 # Bowel Movements 1 2 4 (Michele Palacios MD, R3) Result Diagram: 09/29/17 0943 09/29/17 0943 Objective Remarks GEN: Well-developed, well-nourished patient. No acute distress. CV: Regular rate and rhythm without obvious murmurs LUNGS: Mostly clear to auscultation. GI: nondistended, soft, improvement in pain, abdominal binder in place. Drain in place and is CDI. EXT: No edema, chronic venous stasis changes, present. No calf tenderness. Status post BKA, currently wrapped. Clean and dry. Left side AV fistula with palpable bruit. NEURO/PSYCH: Awake, alert. Appropriate insight and judgment. Normal speech (Michele Palacios MD, R3) A/P Assessment and Plan 72 y/o with chronic history of HTN, DM, ESRD, chronic foot wounds presents from podiatry clinic for evaluation. Admitted for osteomyelitis with debridement and possible amputation. Developed a GI bleed during hospitalization. Hemicolectomy performed 09/18/2017. Status post right BKA on . Discharge Planning BKA on the right on 09/28. Will need SNF versus home health once medically stable and working with physical therapy. (Michele Palacios MD, R3) Attending Attestation Patient seen and examined. Case reviewed and discussed with the resident team. Agree with plan of care as discussed with me and documented in the resident note. she is stable and declines morphine. she declined any exam from me as she was eating and had already been examined (Teresa Wang MD) Problem List: (1) Osteomyelitis of ankle or foot, right, acute ICD Codes: M86.171 - Other acute osteomyelitis, right ankle and foot Status: Acute Plan: Postop day #1, status post BKA on the right Vascular consulted, Dr. Reaves Pain control: Refusing morphine. On Percocet 7.5 mg every 4 hours pain 6-10. Continue antibiotics: * Vancomycin (09/06- per nephrology dosing/titration * Zosyn (09/07- (2) GI bleed ICD Codes: K92.2 - Gastrointestinal hemorrhage, unspecified Status: Acute Plan: S/P hemicolectomy with surgical anastomosis. Now having formed BMs and abdominal pain is improving. GI signed off 2 Continue IV Protonix 40 mg IV BID. Aggressive PT as tolerated. (3) Atrial fibrillation ICD Codes: I48.91 - Unspecified atrial fibrillation Status: Acute Plan: HR 135 overnight on 09/26/2017. Found to have a fib on tele. New diagnosis. Now in sinus rhythm. Continue carvedilol Holding anticoagulation because of GI bleeding. (4) High risk of cardiac event ICD Codes: Z91.89 - Other specified personal risk factors, not elsewhere classified Plan: Cardiovascular risk factors are many, including T2DM, hypertension, ESRD on dialysis. Myocardial perfusion scan on 09/27: Low risk (5) ESRD (end stage renal disease) on dialysis ICD Codes: N18.6 - End stage renal failure on dialysis; Z99.2 - Dependence on renal dialysis Status: Chronic Plan: Dialysis Saturday, Saturday, Saturday typically. Sees Dr. Buchanan, stagecraft professor outpatient. No urine output Nephrology consulted: Appreciate recommendations * Resume dialysis 3x/wk * Monitor phosphorus intermittently, use binders as appropriate. * Fluid restriction (6) Diabetes mellitus ICD Codes: E11.9 - Type 2 diabetes mellitus without complications Status: Chronic Plan: History of long-term diabetes on insulin at home -Sliding scale insulin -Monitor accuchecks (7) Hypertension ICD Codes: I10 - Hypertension Status: Chronic Plan: Continue carvedilol Cont home amlodipine. (8) Hypothyroidism ICD Codes: E03.9 - Hypothyroidism Status: Chronic Plan: Continue home Synthroid. (9) FEN Status: Acute Plan: Fluids: Tolerating by mouth. Electrolytes: monitor, replace PRN. Nutrition: As guided by GI DVT ppx: hold chemoppx due to surgery/GI bleed, SCDs (Michele Palacios MD, R3) Problem Qualifiers (1) GI bleed: Qualified Codes: K57.91 - Diverticulosis of intestine, part unspecified, without perforation or abscess with bleeding (2) Atrial fibrillation: Qualified Codes: I48.0 - Paroxysmal atrial fibrillation (3) Diabetes mellitus: Qualified Codes: E11.42 - Type 2 diabetes mellitus with diabetic polyneuropathy ; Z79.4 - terminologist (current) use of insulin (4) Hypertension: Qualified Codes: I10 - Essential (primary) hypertension (5) Hypothyroidism: Qualified Codes: E03.9 - Hypothyroidism, unspecified Michele Palacios MD, R3 Sep 29, 2017 11:42 Teresa Wang MD Sep 30, 2017 12:18
--- NOTE | 2017-09-29 13:25 | PD.CAR.PN ---
CVT Progress Note Subjective/Hospital Course: Consult received Full dictation to follow For podiatry debridement Saturday and after that we will evaluate as far as salvageability of the leg is concerned Thanks Jean Paul 09/09/17 Patient with severe peripheral vascular disease gangrene of the right heel and osteomyelitis Every effort has been made by podiatry to salvage the foot and there are no other options left I agree with Dr. Galvez and Dr. Nadir Mello, and the only option at this time is right below-knee amputation Patient scheduled for right below-knee amputation with second and third opinion of additional 2 physicians Today's BKA has to be canceled due to the fact that patient's hemoglobin is 6.7 and due to logistical reasons transfusion of 2 units PRBC was not not administered prior to taking patient to the operating room this afternoon. Considering this is purely elective procedure I believe it's safe and appropriate to transfuse this patient in peace and do surgery tomorrow Patient scheduled for right BKA tomorrow 09/10/17 Patient was initially rescheduled for surgery today however she had some bright red blood per rectum and surgery is now canceled GI bleeding takes precedence and patient will need a full workup on this issue before proceed with amputation If patient needs some gastrointestinal surgery or general surgical intervention I will be available and we'll continue to follow patient Once everything resolved we will reconsider the amputation issue 09/11/17 Hemoglobin again down to 6.9 g/dL as a result of GI bleeding Completely agree with medicine and gastroenterology approach and plan No clear site of bleeding and identified and this is often a problem in patients who have multiple pathologies, all of which could be attributing to the bleeding process including diverticular disease AVM malformations and such Most of these bleeds will see his on the round and only about 10-15% of patients will require actual surgery for the same. Precise identification of the bleeding site being the right or the left colon is imperative should patient require surgery for continuous bleeding, for knowing in their and having to do subtotal colectomy on this lady would double the mortality as opposed only removing the right or the left colon. Sometimes however we cannot identify the bleeding site and then subtotal colectomy remains the only option. Will continue follow patient which you and if patient require surgery I will be available to preform it. As far as the leg is concerned, amputation is now a secondary issue and will not be undertaken until the above issues are resolved and treated satisfactorily. 09/12/17 Patient currently stabilized from GI bleeding Hemoglobin is now stable Angiogram is negative for bleeding but that the requires at least the bleeding of 3 cc/minute to show up On the other hand no clear scan does reveal bleeding which in this case looks like transverse colon Majority of these bleeds will stop on the round with good supportive therapy and patient doesn't need further interventions On the other hand if the patient gets up to 6-8 units of blood transfusions than the risk of surgery is by far exceeded by the risk of repeated transfusions and then surgery is indicated We'll see how patient does and recommend as we go along Discussed with Dr Mi 09/13/17 Patient with diverticulosis and the likely transverse to left colon bleed Agree with Dr. Mi as to the site of bleeding Abdomen is soft active bowel sounds the patient appears to be stable She dropped her hemoglobin bit yesterday he received 1 more units of blood and now it's up again Patient is now 5 units PRBC later and the another unit or 2 and then we'll have to take patient to the operating room for extended left colectomy if this doesn't stop because then the risk of bleeding and problems with transfusion exceeds the risk of surgery We'll see the patient does through the weekend but she is close to needing surgery at this time 09/14/17 Patient doing okay now Abdomen is soft active bowel sounds Hemoglobin appears to be relatively stable between 9 and 8 g/dL and holding. As noted above patient has received 5 units of PRBCs up to now and once we get to point of 67 or 8 units and patient continues to lose blood, then the risk of surgery is less than the risk of repeated transfusions and at that point patient would need left colectomy. Discussed with Dr. Mi and we agree on being very conservative in this situation and doing everything to avoid surgery in this lady. Will continue to follow 09/15/17 Patient had some bleeding last night and hemoglobin was repeated to come back at 10 g/dL This was clearly old blood yet this morning hemoglobin is 8.1 g/dL some believe that former number was probably incorrect last night Patient doesn't appear to have active bleeding If she requires more blood and starts bleeding again should definitely go to the operating room from extended left colectomy At this point would advance to the diet and allow patient to eat and see how she does There is a high likelihood that patient will require left colon resection which of course is a procedure associated with some degree morbidity in this elderly lady. 09/16/17 Patient doing well at this time Abdomen soft active bowel sounds tolerates diet No more fresh or maroon blood per rectum Hemoglobin remains relatively stable between 7.5 and 8 g/dL Continue observation if patient drops hemoglobin 1 more time and starts bleeding she'll be going to the operating room for extended left colectomy 09/17/2017 Patient still passing clots some of the same I liquid blood and some more formed some maroon than some fresh At this point case discussed at length with medical attending and decision is made that this patient eventually clearly need surgery. I have discussed this with patient at length and she is reluctant to have surgery if she needs a colostomy, which is very unlikely but not completely excluded Patient will be cleaned out with GoLYTELY prep and is scheduled tomorrow for extended left colectomy with primary anastomosis 09/19/2017 Patient is status post extended left colectomy with low anterior anastomosis yesterday Incision clean and dry and abdomen is soft with few bowel sounds Of course no gas yet keep n.p.o. but for medications Patient can be out of bed with a binder Continue current care Patient can transfer to floor from my point any time 09/20/2017 Patient is still in ICU but as above noted yesterday from surgical point patient can transfer to floor anytime Perhaps there were no beds available Patient is doing well Abdomen is soft hypoactive bowel sounds incision is clean and dry Patient should get aggressive physical therapy to prevent her from being bedridden in the future We will advance to full liquids and from there as tolerated to diet It should be noted that this patient will still require below-knee amputation as she was originally the consult for the same However I do not want to put 2 surgeries to close together and I would allow patient to recover from this first Next surgery should probably not be done before middle or end of next week 09/21/2017 Patient doing well at this time Abdomen is soft with hypoactive bowel sounds incision is clean and dry Tolerates full liquids I would probably wait for another day or so before advancing diet further considering her frail state and degree of ileus This patient has low anterior resection and therefore should absolutely not receive any medication per rectum suppositories, enemas and such because this could disrupt the anastomosis. Any rectal manipulations or medications are absolutely contraindicated! Recommend Patient should probably get 1 unit of blood with next dialysis but there is no reason to keep the hemoglobin around 7 despite the fact that she is not bleeding anymore In addition patient sugar seems to be however around 50 and 70 and in face of decreased p.o. intake would be advisable to decrease the insulin administration until patient is back on full diet. I wrote her have patient hyperglycemic for a day or 2 then severely hypoglycemic even once which can be fatal For below-knee amputation next week 09/22/2017 Incision is clean and dry Abdomen is soft and nondistended Apparently patient vomited this morning. Patient has more than one reason to have prolonged ileus including renal failure, age bedridden status while in addition to surgery and narcotics administration Patient is awake but somewhat somnolent She truly needs to be more out of bed because whenever I come to visit the patient is laying in bed She should be aggressively moves around placed in chair and encouraged to deep breathe and move her legs even in the sitting position for otherwise she will have a prolonged ileus and will not do well in the and In addition I encouraged decreasing the dose of narcotics for this elderly lady 09/23/2017 Patient doing well at this time Abdomen soft active bowel sounds Tolerating diet well Hemoglobin stable Other medical nonrelated issues being addressed By the end of the week we will schedule patient for below-knee amputation all things equal 09/24/2017 Abdomen soft Incision clean and dry Active bowel sounds with minimal tenderness Tolerating p.o. diet and having bowel movements Plan for right below-knee amputation Saturday should patient remain stable 09/25/2017 Patient doing well at this time Hemodynamically stable Abdomen soft active bowel sounds in incision clean and dry post left colectomy with low anterior anastomosis In face of the above we will proceed with a right below-knee amputation Saturday and all things equal patient will be able to go to rehab after that 09/26/2017 Patient doing well at this time. New onset a-fib. Patient can go to OR in a-fib, as long as rate controlled. Agree with B- blockers and Ca channel blockers. Will postpone till Saturday to allow for time to stabilize the hemodynamics. We will go ahead with a right below-knee amputation Saturday morning All other things remain unchanged This has been at length discussed with patient at several occasions and she agrees with the surgery 09/29/2017 Status post right below-knee amputation Patient hemodynamically stable Dressing intact and will leave original dressing on until Saturday Nothing to acute care at this time Abdomen soft active bowel sounds Tolerates diet well Patient has delayed healing so melissa should stay in place for at least 2 weeks total which comes to about 05 of October Objective: Vital Signs Date Time Temp Pulse Resp B/P (MAP) Pulse Ox O2 Delivery O2 Flow Rate FiO2 09/29/17 12:00 99.2 75 16 159/67 (97) 100 09/29/17 11:46 97 Nasal Cannula 2.00 09/29/17 08:00 98.6 73 16 166/72 (103) 97 09/29/17 04:27 98.9 72 17 159/70 (99) 98 09/29/17 00:16 97.8 72 17 145/65 (91) 98 09/28/17 23:59 76 09/28/17 22:06 83 09/28/17 21:45 Nasal Cannula 2.00 09/28/17 20:32 96.8 72 17 141/67 (91) 97 09/28/17 20:27 96 Nasal Cannula 2.00 09/28/17 16:00 96.9 75 18 163/107 (125) 96 09/28/17 13:25 75 15 136/66 (89) 100 Nasal Cannula 2 Labs: Laboratory Tests Test 09/29/17 09:43 White Blood Count 10.5 TH/MM3 (4.0-11.0) Red Blood Count 2.98 MIL/MM3 (4.00-5.30) Hemoglobin 8.4 GM/DL (11.6-15.3) Hematocrit 25.8 % (35.0-46.0) Mean Corpuscular Volume 86.7 FL (80.0-100.0) Mean Corpuscular Hemoglobin 28.3 PG (27.0-34.0) Mean Corpuscular Hemoglobin Concent 32.7 % (32.0-36.0) Red Cell Distribution Width 17.2 % (11.6-17.2) Platelet Count 326 TH/MM3 (150-450) Mean Platelet Volume 8.8 FL (7.0-11.0) Neutrophils (%) (Auto) 63.4 % (16.0-70.0) Lymphocytes (%) (Auto) 16.9 % (9.0-44.0) Monocytes (%) (Auto) 12.0 % (0.0-8.0) Eosinophils (%) (Auto) 7.1 % (0.0-4.0) Basophils (%) (Auto) 0.6 % (0.0-2.0) Neutrophils # (Auto) 6.7 TH/MM3 (1.8-7.7) Lymphocytes # (Auto) 1.8 TH/MM3 (1.0-4.8) Monocytes # (Auto) 1.3 TH/MM3 (0-0.9) Eosinophils # (Auto) 0.7 TH/MM3 (0-0.4) Basophils # (Auto) 0.1 TH/MM3 (0-0.2) CBC Comment DIFF FINAL Differential Comment Blood Urea Nitrogen 29 MG/DL (7-18) Creatinine 6.41 MG/DL (0.50-1.00) Random Glucose 77 MG/DL (74-106) Total Protein 6.4 GM/DL (6.4-8.2) Albumin 1.4 GM/DL (3.4-5.0) Calcium Level 7.9 MG/DL (8.5-10.1) Alkaline Phosphatase 172 U/L (45-117) Aspartate Amino Transf (AST/SGOT) 28 U/L (15-37) Alanine Aminotransferase (ALT/SGPT) 8 U/L (10-53) Total Bilirubin 0.3 MG/DL (0.2-1.0) Sodium Level 137 MEQ/L (136-145) Potassium Level 4.9 MEQ/L (3.5-5.1) Chloride Level 100 MEQ/L (98-107) Carbon Dioxide Level 28.7 MEQ/L (21.0-32.0) Anion Gap 8 MEQ/L (5-15) Estimat Glomerular Filtration Rate 8 ML/MIN (>89) Result Diagram: 09/29/17 0943 09/29/17 0943 Amalia De La Cruz MD Sep 29, 2017 13:25
--- NOTE | 2017-09-29 14:39 | HHI.NPPN ---
Subjective General Problems: Anemia Renal Failure: Chronic, End Stage Renal Disease Review of Systems General Constitutional: Fever, Fatigue Respiratory Respiratory Remarks Denies any SOB Cardiovascular Cardiac Remarks Denies any CP Gastrointestinal Gastrointestinal: Blood/Tarry Stools Musculoskeletal MS: Pain/Stiffness Skin Skin: Ulcers Psych Psych: Depression Objective Data Data Vital Signs Date Time Temp Pulse Resp B/P (MAP) Pulse Ox O2 Delivery O2 Flow Rate FiO2 09/29/17 12:00 99.2 75 16 159/67 (97) 100 09/29/17 11:46 97 Nasal Cannula 2.00 09/29/17 08:00 98.6 73 16 166/72 (103) 97 09/29/17 04:27 98.9 72 17 159/70 (99) 98 09/29/17 00:16 97.8 72 17 145/65 (91) 98 09/28/17 23:59 76 09/28/17 22:06 83 09/28/17 21:45 Nasal Cannula 2.00 09/28/17 20:32 96.8 72 17 141/67 (91) 97 09/28/17 20:27 96 Nasal Cannula 2.00 09/28/17 16:00 96.9 75 18 163/107 (125) 96 -: 09/29/17 0943 09/29/17 0943 Physical Exam General Appearance: Well Developed, No Acute Distress, Comfortable, Malnourished Eyes Eye Exam: Pupils Equal Throat Throat Exam: Oral Mucosa [place] & Moist Neck Neck Exam: Neck Supple Pulmonary Resp Exam: Clear Bilaterally, Breath Sounds Equal Cardiology CV Exam: Regular, Normal Sinus Rhythm, Good Perfusion Gastrointestinal/Abdomen GI Exam: Soft, Non-Tender, Bowel Sounds Present, Positive Bowel Movement Musculoskeletal MS Exam: Normal Tone, Good Strength Integumentary Skin Exam: Warm, Dry Extremeties Extremities Exam: No Edema Neurologic Neuro Exam: Alert, Awake, Oriented, Speech Clear, Moving All Extremities Psychiatric Psych Exam: Appropriate Responses Assessment/Plan Discussed Condition With: Patient Assessment Summary: Anemia of CKD, Hypertension, End Stage Renal Disease Problem List: (1) ESRD (end stage renal disease) on dialysis ICD Codes: N18.6 - End stage renal failure on dialysis; Z99.2 - Dependence on renal dialysis Status: Chronic Plan: HD Saturday 2L Continue HD MWF Monitor fluid and electrolytes. Continue current plan. Left arm AVF functions well. Avoid IVF administration. s/p Rt BKA stable diet change as well to Renal/Diabetic Dr. Greene to follow (2) GI bleed ICD Codes: K92.2 - Gastrointestinal hemorrhage, unspecified Status: Acute Plan: GI and general surgery following, s/p L hemicolectomy Follow H/H (3) Anemia ICD Codes: D64.9 - Anemia, unspecified Status: Acute Plan: Persistently anemic, Give a unit of PRBC on 09/25/17 in preparation for surgery. On Epogen with dialysis.Given Venofer. (4) Foot ulcer, right ICD Codes: L97.519 - Non-pressure chronic ulcer of other part of right foot with unspecified severity Status: Acute Plan: s/p BKA Vascular surgery following. On Zosyn and vancomycin. Antibiotics to be stopped after surgery. (5) Metabolic bone disease ICD Codes: E88.9 - Metabolic disorder, unspecified; M90.80 - Osteopathy in diseases classified elsewhere, unspecified site Status: Acute Plan: monitor phosphorus intermittently. continue Renvela, on two with meals. She has missed several doses (6) Hypertension ICD Codes: I10 - Hypertension Status: Chronic Plan: monitor BP, continue medications. (7) Diabetes mellitus ICD Codes: E11.9 - Type 2 diabetes mellitus without complications Status: Chronic Plan: Continue insulin coverage while hospitalized, maintain blood glucose between 140 and 180. Use D10 @ 20 while NPO. 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
--- NOTE | 2017-09-29 18:42 | MP ---
cc: MD ARON,AMALIA DATE OF SURGERY: 09/28/2017. PREOPERATIVE DIAGNOSIS: 1. Gangrene of the right foot. 2. Peripheral vascular disease. 3. Renal failure. POSTOPERATIVE DIAGNOSIS: 1. Gangrene of the right foot. 2. Peripheral vascular disease. 3. Renal failure. OPERATIVE PROCEDURE PERFORMED: Right below-knee amputation. SURGEON: Amalia De La Cruz M.D. ANESTHESIA: General. ESTIMATED BLOOD LOSS: 20 cc. DESCRIPTION OF THE PROCEDURE IN DETAIL: The patient was prepped and draped in the usual fashion. The site of the amputation was marked by indentation with a suture and then incision was made anterior with a #10 blade and extended laterally down and a posterior flap created and deepened through the skin and then with cautery the anterior and medial compartment muscles were transected. The anterior tibial artery and vein were clamped, divided and ligated with #0 Vicryl stick ties. The periosteum was elevated from the tibia and fibula to about 1-1/2 inches above the level of the skin incision and then with an oscillating saw both bones were transected. The posterior flap was created with a large amputation knife and the specimen removed. Meticulous hemostasis was obtained with #1 PDS looped [id number] stick ties and cautery. The stump was irrigated with saline. The skin and tissue were tailored to fit and then the incision was closed by turning the posterior flap anteriorly and closing it with #0 Vicryl for deep fascia, #0 Vicryl interrupted stitch for the superficial fascia and the skin was closed with 2-0 Prolene. Dressing was applied. The patient tolerated the procedure well. Amalia BATISTA/PATRICIA /2:50 PM /6:35 PM
[2017-09-29] MEDS: MIRTAZAPINE 15 MG TAB PO SCH (19:19)
[2017-09-29] MEDS: hydrOXYzine HCL 25 MG TAB PO SCH (19:19)
[2017-09-30 00:24] VITALS: BP 141/66; PULSE 80; RESP 18; TEMP 96.9; O2SAT 98
[2017-09-30] MEDS: oxyCODONE/ACETAMINOPHEN 7.5 MG/325 MG TAB PO PRN ×5 (00:29→20:59)
[2017-09-30 04:34] VITALS: BP 154/72; PULSE 72; RESP 18; TEMP 96.7; O2SAT 96
[2017-09-30] MEDS: LEVOTHYROXINE SODIUM 75 MCG TAB PO SCH (05:41)
[2017-09-30] MEDS: PIPERACIL-TAZO 2.25 GM PREMIX 50 ML IV SCH ×2 (05:41→15:19)
[2017-09-30 08:00] VITALS: BP 106/58; PULSE 76; RESP 18; TEMP 97; O2SAT 92
[2017-09-30] MEDS: INSULIN ASPART SUPPLEMENTAL SCALE SQ SCH ×4 (08:00→21:00)
[2017-09-30] MEDS: CARVEDILOL 3.125 MG TAB PO SCH ×2 (08:02→20:59)
[2017-09-30] MEDS: SEVELAMER CARBONATE 800 MG TAB PO SCH ×3 (08:58→17:28)
[2017-09-30] MEDS: PANTOPRAZOLE SODIUM 40 MG VIAL IV PUSH SCH ×2 (08:58→21:03)
[2017-09-30] MEDS: VITAMIN B CMPLX/VITC/FOLIC AC CAP PO SCH (08:58)
[2017-09-30] MEDS: SODIUM CHLORIDE 0.9% FLUSH 10 ML FLUSH IV FLUSH SCH ×2 (08:59→21:02)
[2017-09-30] MEDS: DOCUSATE SODIUM 50 MG/SENNA 8.6 MG TAB PO SCH ×2 (08:59→21:00)
[2017-09-30 10:31] LABS: BICARBONATE 29.2 MEQ/L (21.0-32.0); CREATININE 7.75 MG/DL (0.50-1.00)
--- NOTE | 2017-09-30 10:38 | HHI.NPPN ---
Subjective General Problems: Anemia Renal Failure: Chronic, End Stage Renal Disease Interval History Doing well post operatively. Due for dialysis. (Teresa Parekh) Review of Systems General Constitutional: Fever, Fatigue (Teresa Parekh) Respiratory Respiratory Remarks Denies any SOB (Teresa Parekh) Cardiovascular Cardiac Remarks Denies any CP (Teresa Parekh) Gastrointestinal Gastrointestinal: Blood/Tarry Stools (Teresa Parekh) Musculoskeletal MS: Pain/Stiffness (Teresa Parekh) Skin Skin: Ulcers (Teresa Parekh) Psych Psych: Depression (eTresa Parekh) Objective Data Data Vital Signs Date Time Temp Pulse Resp B/P (MAP) Pulse Ox O2 Delivery O2 Flow Rate FiO2 09/30/17 08:00 97.0 76 18 106/58 (74) 92 09/30/17 04:34 96.7 72 18 154/72 (99) 96 09/30/17 00:24 96.9 80 18 141/66 (91) 98 09/29/17 20:45 155/71 (99) 09/29/17 20:30 Nasal Cannula 2.00 09/29/17 20:00 98.9 75 18 170/66 (100) 98 09/29/17 20:00 77 09/29/17 16:00 99.4 101 17 161/75 (103) 99 09/29/17 12:00 99.2 75 16 159/67 (97) 100 09/29/17 11:46 97 Nasal Cannula 2.00 (Teresa Parekh) -: 09/29/17 0943 09/30/17 0930 Physical Exam General Appearance: Well Developed, No Acute Distress, Comfortable, Malnourished (Teresa Parekh) Eyes Eye Exam: Pupils Equal (Teresa Parekh) Throat Throat Exam: Oral Mucosa [place] & Moist (Teresa Parekh) Neck Neck Exam: Neck Supple (Teresa Parekh) Pulmonary Resp Exam: Clear Bilaterally, Breath Sounds Equal (Teresa Parekh) Cardiology CV Exam: Regular, Normal Sinus Rhythm, Good Perfusion (Teresa Parekh) Gastrointestinal/Abdomen GI Exam: Soft, Non-Tender, Bowel Sounds Present, Positive Bowel Movement GI Remarks Abdominal binder in place (Teresa Parekh) Musculoskeletal MS Exam: Normal Tone, Good Strength MS Remarks s/p R BKA (Teresa Parekh) Integumentary Skin Exam: Warm, Dry Skin Remarks dressing in place (Teresa Parekh) Extremeties Extremities Exam: No Edema Extremeties Remarks Left arm AVF + bruit/thrill (Teresa Parekh) Neurologic Neuro Exam: Alert, Awake, Oriented, Speech Clear, Moving All Extremities (Teresa Parekh) Psychiatric Psych Exam: Appropriate Responses (Teresa Parekh) Assessment/Plan Discussed Condition With: Patient Assessment Summary: Anemia of CKD, Hypertension, End Stage Renal Disease Problem List: (1) ESRD (end stage renal disease) on dialysis ICD Codes: N18.6 - End stage renal failure on dialysis; Z99.2 - Dependence on renal dialysis Status: Chronic Plan: Continue HD MWF She is due today Monitor fluid and electrolytes. Continue current plan. Left arm AVF functions well. Avoid IVF administration. (2) GI bleed ICD Codes: K92.2 - Gastrointestinal hemorrhage, unspecified Status: Acute Plan: Resolving GI and general surgery have followed s/p L hemicolectomy Follow H/H (3) Anemia ICD Codes: D64.9 - Anemia, unspecified Status: Acute Plan: Persistently anemic, no GI bleeding reported On Epogen with dialysis.Given Venofer. (4) Foot ulcer, right ICD Codes: L97.519 - Non-pressure chronic ulcer of other part of right foot with unspecified severity Status: Acute Plan: s/p BKA Vascular surgery following. On Zosyn and vancomycin. ID has been consulted to evaluate the continued need for antibiotic therapy. Most likely will need aggressive PT/OT (5) Metabolic bone disease ICD Codes: E88.9 - Metabolic disorder, unspecified; M90.80 - Osteopathy in diseases classified elsewhere, unspecified site Status: Acute Plan: Monitor phosphorus intermittently. Continue Renvela, advised compliance. (6) Hypertension ICD Codes: I10 - Hypertension Status: Chronic Plan: monitor BP, continue medications. (7) Diabetes mellitus ICD Codes: E11.9 - Type 2 diabetes mellitus without complications Status: Chronic Plan: Continue insulin coverage while hospitalized, maintain blood glucose between 140 and 180. (Teresa Parekh) Plan patient was seen and examined. Agree with above assessment and plan. (Dao Greene MD) Problem Qualifiers (1) GI bleed: Qualified Codes: K57.91 - Diverticulosis of intestine, part unspecified, without perforation or abscess with bleeding (2) Foot ulcer, right: Qualified Codes: L97.512 - Non-pressure chronic ulcer of other part of right foot with fat layer exposed (3) Hypertension: Qualified Codes: I10 - Essential (primary) hypertension (4) Diabetes mellitus: Qualified Codes: E11.42 - Type 2 diabetes mellitus with diabetic polyneuropathy ; Z79.4 - long-term (current) use of insulin Teresa Parekh Sep 30, 2017 10:38 Dao Greene MD Sep 30, 2017 20:04
--- NOTE | 2017-09-30 11:34 | HHI.FPPN ---
Subjective Remarks Patient seen and examined this morning. Temperature 97.0, pulse 76, respiratory rate 18, blood pressure 106/58, pulse ox 92 on 2 L nasal cannula. She reports that her pain is tolerable though she is still feeling some. She is able to roll over on her own. She feels like her bottom is hurting her and she is concerned about ulcer. Upon rolling she had stooled herself. No sacral ulcers noted. She reports that she is unaware of when she has a bowel movement. She feels she has had increased frequency in bowel movements since her GI surgery. (Arjun Farrell MD, R3) Objective Vitals Vital Signs Date Time Temp Pulse Resp B/P (MAP) Pulse Ox O2 Delivery O2 Flow Rate FiO2 09/30/17 08:00 97.0 76 18 106/58 (74) 92 09/30/17 04:34 96.7 72 18 154/72 (99) 96 09/30/17 00:24 96.9 80 18 141/66 (91) 98 09/29/17 20:45 155/71 (99) 09/29/17 20:30 Nasal Cannula 2.00 09/29/17 20:00 98.9 75 18 170/66 (100) 98 09/29/17 20:00 77 09/29/17 16:00 99.4 101 17 161/75 (103) 99 09/29/17 12:00 99.2 75 16 159/67 (97) 100 09/29/17 11:46 97 Nasal Cannula 2.00 I/O 09/29/17 09/29/17 09/29/17 09/30/17 09/30/17 09/30/17 07:00 15:00 23:00 07:00 15:00 23:00 Intake Total 780 ml 50 ml 360 ml 780 ml Output Total 0 ml Balance 780 ml 50 ml 360 ml 780 ml Intake Oral 780 ml 360 ml 780 ml IV Total 50 ml Output Urine Total 0 ml # Voids 0 # Bowel Movements 4 0 2 (Arjun Farrell MD, R3) Result Diagram: 09/29/17 0943 09/30/17 0930 Imaging Last Impressions Myocardial Perfusion Scan Nuc Med 09/27/17 0000 Signed Impressions: Service Date/Time: Wednesday, September 27, 2017 11:57 - CONCLUSION: Unremarkable myocardial perfusion examination. RISK CATEGORY: Low Nain Castillo MD Chest X-Ray 09/26/17 0000 Signed Impressions: Service Date/Time: September 10:16 - CONCLUSION: 1. Questionable small apical pneumothorax on the left. 2. Cardiomegaly with pulmonary vascular engorgement. 3. No infiltrates or effusions. Praneeth Villa Jr., MD GI Bleed Scan Nuclear Medicine 09/11/17 0000 Signed Impressions: Service Date/Time: Monday, September 11, 2017 15:51 - CONCLUSION: Active hemorrhage observed in what is felt to be transverse colon. Praneeth Villa Jr., MD Abdomen Arteriogram 09/11/17 0000 Signed Impressions: Service Date/Time: Monday, September 11, 2017 20:01 - CONCLUSION: 1. Diagnostic mesenteric angiography fails to show a source of hemorrhage or site of hemorrhage. Praneeth Villa Jr., MD Foot MRI 09/07/17 0000 Signed Impressions: Service Date/Time: Thursday, September 07, 2017 17:51 - CONCLUSION: 1. Osteomyelitis has developed at the fifth metatarsal base. 2. Slightly worsening osteomyelitis great toe head of the proximal phalanx and distal half of the distal phalanx. 3. Worsening osteomyelitis of the fibular sesamoid. There superficial osteomyelitis of the tibial sesamoid not significantly changed. 4. No drainable abscess. 5. Signal changes of the medial and intermediate cuneiforms and the third metatarsal base are most likely reactive. Ankle MRI to follow and please refer to that report for ankle and hindfoot findings. Jacob Hall MD Ankle MRI 09/07/17 0000 Signed Impressions: Service Date/Time: Thursday, September 07, 2017 17:51 - CONCLUSION: 1. Severe soft tissue ulceration laterally and posteromedially of the ankle/hindfoot. 2. 2.8 cm fluid collection in the posterolateral gutter, potentially an abscess. 3. Osteomyelitis of the calcaneus, scattered/patchy but most of the bone is involved, especially laterally. 4. Also osteomyelitis of the distal 4 cm of the fibula. 5. Possible osteomyelitis focally of the posteromedial aspect of the talus. Please see above. 6. Exposed peroneal tendons but grossly intact. Considerable tendinosis of the flexor hallucis longus at the level of the distal leg and certainly could be infectious given the other findings. Patient had MRI of the right foot today. Please refer to that report for midfoot and forefoot findings. Jacob Hall MD Foot X-Ray 09/06/17 0000 Signed Impressions: Service Date/Time: Wednesday, September 06, 2017 20:00 - CONCLUSION: 1. Osteopenia. No acute bony abnormality. Daniel Hinkle MD Objective Remarks GEN: Well-developed, well-nourished patient. No acute distress. CV: Regular rate and rhythm without obvious murmurs LUNGS: Mostly clear to auscultation. GI: nondistended, soft, improvement in pain, abdominal binder in place. Drain in place and is CDI. EXT: No edema, chronic venous stasis changes, present. No calf tenderness. Status post BKA, currently wrapped. Clean and dry. Left side AV fistula with palpable bruit. NEURO/PSYCH: Awake, alert. Appropriate insight and judgment. Normal speech Procedures 09/28/17: Right BKA 09/18/17: Left colon resection, low anterior anastomosis Medications and IVs Current Medications Medications (Trade) Dose Ordered Sig/Rita Route Start Time Stop Time Status Last Admin (NS Flush) 2 ml UNSCH PRN IV FLUSH 09/06/17 21:45 (NS Flush) 2 ml BID IV FLUSH 09/07/17 09:00 09/30/17 08:59 (Zofran Inj) 4 mg Q6H PRN IVP 09/06/17 21:45 09/20/17 12:04 (Narcan Inj) 0.4 mg UNSCH PRN IV PUSH 09/06/17 21:45 (Velma-Colace) 1 tab BID PO 09/07/17 09:00 09/27/17 07:53 (Milk Of Magnesia Liq) 30 ml Q12H PRN PO 09/06/17 21:45 (Senokot) 17.2 mg Q12H PRN PO 09/06/17 21:45 (Lactulose Liq) 30 ml DAILY PRN PO 09/06/17 21:45 (D50w (Vial) Inj) 50 ml UNSCH PRN IV PUSH 09/06/17 22:00 09/21/17 08:08 (Glucagon Inj) 1 mg UNSCH PRN OTHER 09/06/17 22:00 (Proair Hfa Inh) 2 puff Q4H PRN INH 09/06/17 22:00 (Norvasc) 10 mg DAILY PO 09/07/17 09:00 09/29/17 07:57 (Ecotrin Ec) 81 mg DAILY PO 09/07/17 09:00 Future Hold 09/08/17 09:00 (Atarax) 25 mg HS PO 09/07/17 21:00 09/29/17 19:19 (Synthroid) 75 mcg DAILY@0600 PO 09/07/17 06:00 09/30/17 05:41 (Nephrocaps) 1 cap DAILY PO 09/07/17 09:00 09/30/17 08:58 Piperacillin Sod/ Tazobactam Sod 50 ml @ 100 mls/hr Q8H IV 09/06/17 22:00 09/30/17 05:41 (Remeron) 15 mg HS PO 09/07/17 00:00 09/29/17 19:19 Sodium Chloride 1,000 ml @ 0 mls/hr Q0M PRN OTHER 09/07/17 09:20 09/10/17 11:30 (Heparin Inj) 8,000 units UNSCH PRN IV FLUSH 09/07/17 09:30 Sodium Chloride 1,000 ml @ 200 mls/hr Q5H PRN IV 09/07/17 09:20 Sodium Chloride 1,000 ml @ 0 mls/hr Q0M PRN OTHER 09/07/17 09:20 (Mannitol Inj) 12.5 gm UNSCH PRN IV 09/07/17 09:30 Albumin Human 100 ml @ 60 mls/hr UNSCH PRN IV 09/07/17 09:30 (NS Flush) 5 ml UNSCH PRN IV FLUSH 09/07/17 09:30 (Heparin Inj) UNSCH PRN .XX 09/07/17 09:30 (Gentamicin Inj) 20 mg UNSCH PRN OTHER 09/07/17 09:30 (Zofran Inj) 4 mg UNSCH PRN IV PUSH 09/07/17 09:30 09/21/17 15:48 (Benadryl) 25 mg UNSCH PRN PO 09/07/17 09:30 09/14/17 06:40 (Nitrostat Sl) 0.4 mg UNSCH PRN SL 09/07/17 09:30 (Catapres) 0.1 mg UNSCH PRN PO 09/07/17 09:30 09/17/17 10:19 (Gelfoam 12 Mm/7 Mm Top) 1 foam UNSCH PRN TOP 09/07/17 09:30 09/25/17 11:40 Vancomycin HCl 1000 mg/Sodium Chloride 250 ml @ 250 mls/hr WITH DIALYSIS IV 09/07/17 09:30 09/27/17 17:11 (Protonix Inj) 40 mg Q12H IV PUSH 09/09/17 09:00 09/30/17 08:58 (Renvela) 1,600 mg TIDAC PO 09/10/17 12:00 09/30/17 08:58 (Percocet 5-325 Mg) 1 tab Q4H PRN PO 09/22/17 11:15 09/29/17 15:55 (NovoLOG SUPPLEMENTAL SCALE) 1 ACHS SLIDING SCALE SQ 09/23/17 12:00 09/26/17 17:00 (Epogen Inj) 10,000 units UNSCH PRN IV PUSH 09/25/17 10:15 09/27/17 17:10 (Coreg) 3.125 mg Q12HR PO 09/26/17 10:15 09/29/17 19:19 (Percocet 7.5-325 Mg) 1 tab Q4H PRN PO 09/29/17 11:00 09/30/17 09:34 (Arjun Farrell MD, R3) A/P Assessment and Plan 72 y/o with chronic history of HTN, DM, ESRD, chronic foot wounds presents from podiatry clinic for evaluation. Admitted for osteomyelitis with debridement and possible amputation. Developed a GI bleed during hospitalization. Hemicolectomy performed 09/18/2017. Status post right BKA on . Discharge Planning BKA on the right on 09/28. Will need SNF versus home health once medically stable and working with physical therapy. (Arjun Farrell MD, R3) Attending Attestation Patient seen and examined. Case reviewed and discussed with the resident team. Agree with plan of care as discussed with me and documented in the resident note. pt seen with Angela Farrell and Stone today.she is in pain and concerned about ulcers of her sacrum though we did not see any today. agree with air bed (Teresa Wang MD) Problem List: (1) Osteomyelitis of ankle or foot, right, acute ICD Codes: M86.171 - Other acute osteomyelitis, right ankle and foot Status: Acute Plan: Postop day #2, status post BKA on the right Vascular consulted, Dr. Reaves Pain control: Refusing morphine. On Percocet 5/325 mg 1 tablet every 4 hours as needed pain scale 3-6, 7.5 mg every 4 hours pain 7-10. Continue antibiotics: * Vancomycin (09/06- per nephrology dosing/titration * Zosyn (09/07- (2) Diarrhea ICD Codes: R19.7 - Diarrhea, unspecified Plan: Patient reporting frequent diarrheal episodes at this time. She is unaware when she has a bowel movement and feels that she often sits in the stool. * C. difficile cultures pending (3) GI bleed ICD Codes: K92.2 - Gastrointestinal hemorrhage, unspecified Status: Acute Plan: S/P hemicolectomy with surgical anastomosis. Patient is having frequent loose stools at this time. Reports some abdominal pain but no longer severe. GI signed off 2/3 Continue IV Protonix 40 mg IV BID. Aggressive PT as tolerated. (4) Atrial fibrillation ICD Codes: I48.91 - Unspecified atrial fibrillation Status: Acute Plan: Found to have atrial fibrillation during this hospitalization, currently in sinus rhythm and no further episodes at this time. Likely paroxysmal Now in sinus rhythm. Continue carvedilol Holding anticoagulation because of GI bleeding. (5) High risk of cardiac event ICD Codes: Z91.89 - Other specified personal risk factors, not elsewhere classified Plan: Cardiovascular risk factors are many, including T2DM, hypertension, ESRD on dialysis. Myocardial perfusion scan on 09/27: Low risk (6) ESRD (end stage renal disease) on dialysis ICD Codes: N18.6 - End stage renal failure on dialysis; Z99.2 - Dependence on renal dialysis Status: Chronic Plan: Dialysis Saturday, Saturday, Saturday typically. Sees Dr. Buchanan, vp lab outpatient. No urine output Nephrology consulted: Appreciate recommendations * Resume dialysis 3x/wk * Monitor phosphorus intermittently, use binders as appropriate. * Fluid restriction (7) Diabetes mellitus ICD Codes: E11.9 - Type 2 diabetes mellitus without complications Status: Chronic Plan: History of long-term diabetes on insulin at home -Sliding scale insulin -Monitor accuchecks (8) Hypertension ICD Codes: I10 - Hypertension Status: Chronic Plan: Continue carvedilol Cont home amlodipine. (9) Hypothyroidism ICD Codes: E03.9 - Hypothyroidism Status: Chronic Plan: Continue home Synthroid. * TSH pending for the am (10) FEN Status: Acute Plan: Fluids: Tolerating by mouth. Electrolytes: monitor, replace PRN. Nutrition: As guided by GI DVT ppx: hold chemoppx due to surgery/GI bleed, SCDs (Arjun Farrell MD, R3) Problem Qualifiers (1) Diarrhea: Qualified Codes: R19.7 - Diarrhea, unspecified (2) GI bleed: Qualified Codes: K57.91 - Diverticulosis of intestine, part unspecified, without perforation or abscess with bleeding (3) Atrial fibrillation: Qualified Codes: I48.0 - Paroxysmal atrial fibrillation (4) Diabetes mellitus: Qualified Codes: E11.42 - Type 2 diabetes mellitus with diabetic polyneuropathy ; Z79.4 - residential (current) use of insulin (5) Hypertension: Qualified Codes: I10 - Essential (primary) hypertension (6) Hypothyroidism: Qualified Codes: E03.9 - Hypothyroidism, unspecified Arjun Farrell MD, R3 Sep 30, 2017 11:34 Teresa Wang MD Sep 30, 2017 12:20
[2017-09-30] MEDS: VANCOMYCIN INJ 1,000 MG in SODIUM CHLOR 0.9% 250 ML INJ 250 ML IV SCH (12:03)
[2017-09-30] MEDS: GELATIN 12 MM/7 MM FOAM TOP PRN (12:04)
[2017-09-30] MEDS: EPOETIN ALFA 10,000 UNITS/ML VIAL IV PUSH PRN (12:04)
[2017-09-30 12:43] LABS: AUTOMATED NEUTROPHIL # 2.7 TH/MM3 (1.8-7.7); BASOPHIL % 0.8 % (0.0-2.0); EOSINOPHIL # 0.1 TH/MM3 (0-0.4); EOSINOPHIL % 3.1 % (0.0-4.0); HEMATOCRIT 24.2 % (35.0-46.0); LYMPH % 28.1 % (9.0-44.0); LYMPHOCYTE # 1.2 TH/MM3 (1.0-4.8); MEAN CELL VOLUME 79.6 FL (80.0-100.0); MEAN CORPUSCULAR HEMOGLOBIN 26.5 PG (27.0-34.0); MEAN CORPUSCULAR HGB CONC 33.2 % (32.0-36.0); MEAN PLATELET VOLUME 8.4 FL (7.0-11.0); MONO % 7.8 % (0.0-8.0); MONOCYTE # 0.3 TH/MM3 (0-0.9); NEUT % 60.2 % (16.0-70.0); PLATELET COUNT 171 TH/MM3 (150-450); RED BLOOD COUNT 3.04 MIL/MM3 (4.00-5.30); RED CELL DISTRIBUTION WIDTH 16.5 % (11.6-17.2); WHITE BLOOD COUNT 4.4 TH/MM3 (4.0-11.0)
[2017-09-30 16:00] VITALS: BP 165/74; PULSE 79; RESP 18; TEMP 99.4; O2SAT 96
[2017-09-30] MEDS ORDERED: ACETAMINOPHEN 325 MG TAB PO PRN (18:45)
--- NOTE | 2017-09-30 19:34 | MB ---
cc: RACHELLE GREWAL MD DATE OF CONSULTATION 09/30/[address] Palacios. REASON FOR CONSULTATION History of osteomyelitis. Now status post BKA. Please help with medication management and length of treatment. HISTORY OF PRESENT ILLNESS This is a 72-year-old black female who was admitted to the hospital on 09/06 with skin problem. The patient had infection of her right ankle. She had been following with podiatry and had recent surgery about 2 weeks ago. The patient had positive culture from the right foot in July 2017 with alcaligenes and Citrobacter. She subsequently underwent surgery on 09/07 with debridement of ulcers of the right foot and ankle. This admission she underwent MRI of the ankle and it showed osteomyelitis of the distal 4 cm of the fibula and also possible osteomyelitis of the posterior medial aspect of the talus and osteomyelitis also of the calcaneus. It was felt that most of the bone of the talus was involved. The patient was put on antibiotics and subsequently she underwent right BKA on 09/28/17 for gangrene of the right foot. Cultures were taken last on 09/07/17 at surgery and it came back with Achromobacter and Enterococcus faecalis. Her white blood cell count is normal. She is afebrile. The patient has end-stage renal disease and she undergoes hemodialysis. Currently she feels tired but is in no distress. She has no complaints except for tiredness. The patient has had multiple bowel movements but C. difficile testing is negative. PAST MEDICAL HISTORY 1. Diabetes mellitus. 2. Hypertension. 3. Hypothyroidism. 4. Diabetic nephropathy. 5. End-stage renal disease. 6. Gastroesophageal reflux disease. 7. Hepatitis C. 8. History of cataracts. 9. History of left helix amputation. ALLERGIES NO KNOWN DRUG ALLERGIES. MEDICATIONS 1. Percocet 7.5 p.r.n. 2. Coreg. 3. Epoetin. 4. Insulin. 5. Renvela. 6. Protonix. 7. Atarax. 8. Nephrocaps. 9. Synthroid. 10. Remeron. 11. Piperacillin / tazobactam. SOCIAL HISTORY Denies alcohol or illicit drugs. The patient smokes one to two cigarettes a day. FAMILY HISTORY Noncontributory. REVIEW OF SYSTEMS Negative on 10-point review. PHYSICAL EXAMINATION GENERAL: This is a well-developed, thin, frail female in no acute distress. She is awake and alert and oriented. VITAL SIGNS: Include temperature 97.0, BP 106/58, respirations 18, heart rate 76. HEENT: Head is atraumatic. Extraocular movements grossly intact. No icterus. Oropharynx moist mucosa without lesions. NECK: Supple without adenopathy. LUNGS: Clear breath sounds bilateral. HEART: Regular S1-S2. No murmurs. No rubs. No gallops. ABDOMEN: Bowel sounds present, soft, no tenderness appreciated. RECTAL: Not performed. EXTREMITIES: The left leg has no clubbing, cyanosis or edema. The right leg is post amputation [id number]. Surgical dressing in place. The dressing was not removed for inspection at this time. SKIN: No diffuse rash. NEUROLOGIC: No gross focal findings. PSYCHIATRIC: The patient is calm and cooperative. IMPRESSION 1. Wound infection of the right ankle with Achromobacter and Enterococcus. The patient is status post [id number] amputation because of gangrene of the ankle on the right. 2. End-stage renal disease. 3. Antibiotic associated diarrhea. 4. Osteomyelitis of the right ankle prior to right BKA. RECOMMENDATIONS Discontinue the piperacillin / tazobactam. The patient does not need to be continued on antibiotics because the surgical procedure essentially would have eradicated the osteomyelitis for which the antibiotics would have been necessary. I will discontinue the piperacillin / tazobactam. The wound should be monitored for proper healing. Thank you this consultation. Please call if further information is needed from an ID standpoint on this patient. Rachelle Grewal MD FD/SUNIL /3:45 PM /6:59 PM [facility]
[2017-09-30 20:00] VITALS: PULSE 81
[2017-09-30 20:35] VITALS: BP 172/84; PULSE 82; RESP 16; TEMP 100.7; O2SAT 98
[2017-09-30] MEDS: MIRTAZAPINE 15 MG TAB PO SCH (20:59)
[2017-09-30] MEDS: hydrOXYzine HCL 25 MG TAB PO SCH (20:59)
[2017-10-01] VITALS (8 sets, daily range): BP systolic 131–166; BP diastolic 71–81; PULSE 71–97; RESP 18; TEMP 96.7–99.6; O2SAT 91–99
[2017-10-01] MEDS: LEVOTHYROXINE SODIUM 75 MCG TAB PO SCH (06:08)
[2017-10-01] MEDS: oxyCODONE/ACETAMINOPHEN 7.5 MG/325 MG TAB PO PRN ×2 (06:09→22:04)
[2017-10-01] MEDS: INSULIN ASPART SUPPLEMENTAL SCALE SQ SCH ×4 (08:00→21:00)
[2017-10-01] MEDS: PANTOPRAZOLE SODIUM 40 MG VIAL IV PUSH SCH ×2 (08:30→22:04)
[2017-10-01] MEDS: SEVELAMER CARBONATE 800 MG TAB PO SCH ×3 (08:30→18:18)
[2017-10-01] MEDS: SODIUM CHLORIDE 0.9% FLUSH 10 ML FLUSH IV FLUSH SCH ×2 (08:31→22:04)
[2017-10-01] MEDS: CARVEDILOL 3.125 MG TAB PO SCH ×2 (08:31→22:03)
[2017-10-01] MEDS: DOCUSATE SODIUM 50 MG/SENNA 8.6 MG TAB PO SCH (08:31)
[2017-10-01] MEDS: VITAMIN B CMPLX/VITC/FOLIC AC CAP PO SCH (08:31)
--- NOTE | 2017-10-01 08:46 | HHI.FPPN ---
Subjective Remarks Ms Bolivar had no acute events overnight. Has a little pain and itching in her right BKA but pain is controlled, voiding, stooling, no diarrhea today, C diff neg, worked with PT yesterday and restarting OT today. Spoke w/CM about discharge to SNF today. Both pt and her daughter agree with plan to go to SNF and prefer [facility] if that is an option. Denies CP, SOB, N/V, DVT pain. (Ken Ritter MD R1) Objective Vitals Vital Signs Date Time Temp Pulse Resp B/P (MAP) Pulse Ox O2 Delivery O2 Flow Rate FiO2 10/01/17 04:09 96 Nasal Cannula 2.00 10/01/17 04:00 98.2 73 18 166/73 (104) 98 10/01/17 00:00 76 10/01/17 00:00 98.3 71 18 154/71 (98) 96 09/30/17 20:35 100.7 82 16 172/84 (113) 98 09/30/17 20:00 81 09/30/17 16:00 99.4 79 18 165/74 (104) 96 I/O 09/30/17 09/30/17 09/30/17 10/01/17 10/01/17 10/01/17 07:00 15:00 23:00 07:00 15:00 23:00 Intake Total 780 ml 620 ml Output Total 3500 ml Balance 780 ml -3500 ml 620 ml Intake Oral 780 ml 620 ml Hemodialysis 3500 ml # Voids 0 0 # Bowel Movements 2 1 1 (Ken Ritter MD R1) Result Diagram: 09/30/17 1132 09/30/17 0930 Objective Remarks GEN: Thin, elderly AAF in NAD, lying in bed scratching her right knee. CV: Regular rate and rhythm without obvious murmurs LUNGS: CTAB with no wheezing, rales or rhonchi. GI: Nondistended, soft, abdominal binder in place; drain in place and is CDI. EXT: No edema, chronic venous stasis changes, present. No calf tenderness. Status post BKA, currently wrapped. Clean and dry. Left side AV fistula with palpable bruit. NEURO/PSYCH: Awake, alert. Appropriate insight and judgment. Normal speech Procedures 09/28/17: Right BKA 09/18/17: Left colon resection, low anterior anastomosis Medications and IVs Current Medications Medications (Trade) Dose Ordered Sig/Rita Route Start Time Stop Time Status Last Admin (NS Flush) 2 ml UNSCH PRN IV FLUSH 09/06/17 21:45 (NS Flush) 2 ml BID IV FLUSH 09/07/17 09:00 10/01/17 08:31 (Zofran Inj) 4 mg Q6H PRN IVP 09/06/17 21:45 09/20/17 12:04 (Narcan Inj) 0.4 mg UNSCH PRN IV PUSH 09/06/17 21:45 (Velma-Colace) 1 tab BID PO 09/07/17 09:00 09/27/17 07:53 (Milk Of Magnesia Liq) 30 ml Q12H PRN PO 09/06/17 21:45 (Senokot) 17.2 mg Q12H PRN PO 09/06/17 21:45 (Lactulose Liq) 30 ml DAILY PRN PO 09/06/17 21:45 (D50w (Vial) Inj) 50 ml UNSCH PRN IV PUSH 09/06/17 22:00 09/21/17 08:08 (Glucagon Inj) 1 mg UNSCH PRN OTHER 09/06/17 22:00 (Proair Hfa Inh) 2 puff Q4H PRN INH 09/06/17 22:00 (Norvasc) 10 mg DAILY PO 09/07/17 09:00 10/01/17 08:30 (Ecotrin Ec) 81 mg DAILY PO 09/07/17 09:00 Future Hold 09/08/17 09:00 (Atarax) 25 mg HS PO 09/07/17 21:00 09/30/17 20:59 (Synthroid) 75 mcg DAILY@0600 PO 09/07/17 06:00 10/01/17 06:08 (Nephrocaps) 1 cap DAILY PO 09/07/17 09:00 10/01/17 08:31 (Remeron) 15 mg HS PO 09/07/17 00:00 09/30/17 20:59 Sodium Chloride 1,000 ml @ 0 mls/hr Q0M PRN OTHER 09/07/17 09:20 09/10/17 11:30 (Heparin Inj) 8,000 units UNSCH PRN IV FLUSH 09/07/17 09:30 Sodium Chloride 1,000 ml @ 200 mls/hr Q5H PRN IV 09/07/17 09:20 Sodium Chloride 1,000 ml @ 0 mls/hr Q0M PRN OTHER 09/07/17 09:20 (Mannitol Inj) 12.5 gm UNSCH PRN IV 09/07/17 09:30 Albumin Human 100 ml @ 60 mls/hr UNSCH PRN IV 09/07/17 09:30 (NS Flush) 5 ml UNSCH PRN IV FLUSH 09/07/17 09:30 (Heparin Inj) UNSCH PRN .XX 09/07/17 09:30 (Gentamicin Inj) 20 mg UNSCH PRN OTHER 09/07/17 09:30 (Zofran Inj) 4 mg UNSCH PRN IV PUSH 09/07/17 09:30 09/21/17 15:48 (Benadryl) 25 mg UNSCH PRN PO 09/07/17 09:30 09/14/17 06:40 (Nitrostat Sl) 0.4 mg UNSCH PRN SL 09/07/17 09:30 (Catapres) 0.1 mg UNSCH PRN PO 09/07/17 09:30 09/17/17 10:19 (Gelfoam 12 Mm/7 Mm Top) 1 foam UNSCH PRN TOP 09/07/17 09:30 09/30/17 12:04 (Protonix Inj) 40 mg Q12H IV PUSH 09/09/17 09:00 10/01/17 08:30 (Renvela) 1,600 mg TIDAC PO 09/10/17 12:00 10/01/17 08:30 (Percocet 5-325 Mg) 1 tab Q4H PRN PO 09/22/17 11:15 09/29/17 15:55 (NovoLOG SUPPLEMENTAL SCALE) 1 ACHS SLIDING SCALE SQ 09/23/17 12:00 09/26/17 17:00 (Epogen Inj) 10,000 units UNSCH PRN IV PUSH 09/25/17 10:15 09/30/17 12:04 (Coreg) 3.125 mg Q12HR PO 09/26/17 10:15 10/01/17 08:31 (Percocet 7.5-325 Mg) 1 tab Q4H PRN PO 09/29/17 11:00 10/01/17 06:09 (Tylenol) 325 mg Q4H PRN PO 09/30/17 18:45 (Ken Ritter MD R1) A/P Assessment and Plan 72 y/o with chronic history of HTN, DM, ESRD, chronic foot wounds presents from podiatry clinic for evaluation. Admitted for osteomyelitis with debridement and possible amputation. Developed a GI bleed during hospitalization. Hemicolectomy performed 09/18/2017. Status post right BKA on . Discharge Planning BKA on the right on 09/28. Pt amenable to SNF/rehab placement and will DC as soon as placement can be arranged. (Ken Ritter MD R1) Attending Attestation Patient seen and examined. Case reviewed and discussed with the resident team. Agree with plan of care as discussed with me and documented in the resident note. she is doing well with less pain and is happy to go to rehab today if possible (Teresa Wang MD) Problem List: (1) Osteomyelitis of ankle or foot, right, acute ICD Codes: M86.171 - Other acute osteomyelitis, right ankle and foot Status: Acute Plan: Postop day #3, status post BKA on the right Vascular consulted, Dr. Reaves Pain control: Refusing morphine. On Percocet 5/325 mg 1 tablet every 4 hours as needed pain scale 3-6, 7.5 mg every 4 hours pain 7-10. ID Consulted and discontinued antibiotics 09/30 (2) Diarrhea ICD Codes: R19.7 - Diarrhea, unspecified Plan: Patient reports no diarrhea today * C. difficile cultures negative (3) GI bleed ICD Codes: K92.2 - Gastrointestinal hemorrhage, unspecified Status: Acute Plan: S/P hemicolectomy with surgical anastomosis. No reported diarrhea today. No concern of abdominal pain today. GI signed off / Continue IV Protonix 40 mg IV BID. Aggressive PT as tolerated. (4) Atrial fibrillation ICD Codes: I48.91 - Unspecified atrial fibrillation Status: Acute Plan: Found to have atrial fibrillation during this hospitalization, currently in sinus rhythm and no further episodes at this time. Likely paroxysmal Now in sinus rhythm. Continue carvedilol Holding anticoagulation because of GI bleeding. (5) High risk of cardiac event ICD Codes: Z91.89 - Other specified personal risk factors, not elsewhere classified Plan: Cardiovascular risk factors are many, including T2DM, hypertension, ESRD on dialysis. Myocardial perfusion scan on 09/27: Low risk (6) ESRD (end stage renal disease) on dialysis ICD Codes: N18.6 - End stage renal failure on dialysis; Z99.2 - Dependence on renal dialysis Status: Chronic Plan: Dialysis Saturday, Saturday, Saturday typically. Sees Dr. Buchanan, supervisor [employer] outpatient. No urine output Nephrology consulted: Appreciate recommendations * Resume dialysis 3x/wk * Monitor phosphorus intermittently, use binders as appropriate. * Fluid restriction (7) Diabetes mellitus ICD Codes: E11.9 - Type 2 diabetes mellitus without complications Status: Chronic Plan: History of long-term diabetes on insulin at home -Sliding scale insulin -Monitor accuchecks (8) Hypertension ICD Codes: I10 - Hypertension Status: Chronic Plan: Continue carvedilol Cont home amlodipine. (9) Hypothyroidism ICD Codes: E03.9 - Hypothyroidism Status: Chronic Plan: Continue home Synthroid. * TSH pending for the am (10) FEN Status: Acute Plan: Fluids: Tolerating by mouth. Electrolytes: monitor, replace PRN. Nutrition: As guided by GI DVT ppx: hold chemoppx due to surgery/GI bleed, SCDs PT eval and treat OT restarted today (Ken Ritter MD R1) Problem Qualifiers (1) Diarrhea: Qualified Codes: R19.7 - Diarrhea, unspecified (2) Atrial fibrillation: Qualified Codes: I48.0 - Paroxysmal atrial fibrillation (3) Hypertension: Qualified Codes: I10 - Essential (primary) hypertension (4) Hypothyroidism: Qualified Codes: E03.9 - Hypothyroidism, unspecified Ken Ritter MD R1 Oct 01, 2017 08:46 Teresa Wang MD Oct 01, 2017 14:06
[2017-10-01] MEDS ORDERED: CARV3.125 PO (11:16)
[2017-10-01] MEDS ORDERED: OXYC1TAB35 PO (11:16)
--- NOTE | 2017-10-01 11:16 | HHI.NPPN ---
Subjective General Problems: Anemia Renal Failure: Chronic, End Stage Renal Disease Interval History Doing well. Appetite is sufficient. (Teresa Parekh) Review of Systems General Constitutional: Fever, Fatigue (Teresa Parekh) Respiratory Respiratory Remarks Denies any SOB (Teresa Parekh) Cardiovascular Cardiac Remarks Denies any CP (Teresa Parekh) Gastrointestinal Gastrointestinal: Blood/Tarry Stools (Teresa Parekh) Musculoskeletal MS: Pain/Stiffness (Teresa Parekh) Skin Skin: Ulcers (Teresa Parekh) Psych Psych: Depression (Teresa Parekh) Objective Data Data 10/01/17 10/02/17 19:00 07:00 # Bowel Movements 1 Vital Signs Date Time Temp Pulse Resp B/P (MAP) Pulse Ox O2 Delivery O2 Flow Rate FiO2 10/01/17 04:09 96 Nasal Cannula 2.00 10/01/17 04:00 98.2 73 18 166/73 (104) 98 10/01/17 00:00 76 10/01/17 00:00 98.3 71 18 154/71 (98) 96 09/30/17 20:35 100.7 82 16 172/84 (113) 98 09/30/17 20:00 81 09/30/17 16:00 99.4 79 18 165/74 (104) 96 (Teresa Parekh) -: 09/30/17 1132 09/30/17 0930 Physical Exam General Appearance: Well Developed, No Acute Distress, Comfortable, Malnourished (Teresa Parekh) Eyes Eye Exam: Pupils Equal (Teresa Parekh) Throat Throat Exam: Oral Mucosa [place] & Moist (Teresa Parekh) Neck Neck Exam: Neck Supple (Teresa Parekh) Pulmonary Resp Exam: Clear Bilaterally, Breath Sounds Equal (Teresa Parekh) Cardiology CV Exam: Regular, Normal Sinus Rhythm, Good Perfusion (Teresa Parekh) Gastrointestinal/Abdomen GI Exam: Soft, Non-Tender, Bowel Sounds Present, Positive Bowel Movement GI Remarks Abdominal binder in place (Teresa Parekh) Musculoskeletal MS Exam: Normal Tone, Good Strength MS Remarks s/p R BKA (Teresa Parekh) Integumentary Skin Exam: Warm, Dry Skin Remarks dressing in place (Teresa Parekh) Extremeties Extremities Exam: No Edema Extremeties Remarks Left arm AVF + bruit/thrill (Teresa Parekh) Neurologic Neuro Exam: Alert, Awake, Oriented, Speech Clear, Moving All Extremities (Teresa Parekh) Psychiatric Psych Exam: Appropriate Responses (Teresa Parekh) Assessment/Plan Discussed Condition With: Patient Assessment Summary: Anemia of CKD, Hypertension, End Stage Renal Disease Problem List: (1) ESRD (end stage renal disease) on dialysis ICD Codes: N18.6 - End stage renal failure on dialysis; Z99.2 - Dependence on renal dialysis Status: Chronic Plan: Continue HD MWF Monitor fluid and electrolytes. Continue current plan. Left arm AVF functions well. Avoid IVF administration. High protein diet encouraged. (2) GI bleed ICD Codes: K92.2 - Gastrointestinal hemorrhage, unspecified Status: Acute Plan: Resolving GI and general surgery have followed s/p L hemicolectomy Follow H/H (3) Anemia ICD Codes: D64.9 - Anemia, unspecified Status: Acute Plan: Persistently anemic, no GI bleeding reported On Epogen with dialysis.Given Venofer. (4) Foot ulcer, right ICD Codes: L97.519 - Non-pressure chronic ulcer of other part of right foot with unspecified severity Status: Acute Plan: s/p BKA . Vascular surgery following. Off antibiotics. Most likely will need aggressive PT/OT (5) Metabolic bone disease ICD Codes: E88.9 - Metabolic disorder, unspecified; M90.80 - Osteopathy in diseases classified elsewhere, unspecified site Status: Acute Plan: Monitor phosphorus intermittently. Continue Renvela, advised compliance. (6) Hypertension ICD Codes: I10 - Hypertension Status: Chronic Plan: monitor BP, continue medications. (7) Diabetes mellitus ICD Codes: E11.9 - Type 2 diabetes mellitus without complications Status: Chronic Plan: Continue insulin coverage while hospitalized, maintain blood glucose between 140 and 180. (Teresa Parekh) Plan patient was seen and examined. Agree with above assessment and plan. 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
--- NOTE | 2017-10-01 11:18 | HHI.DCPOC ---
Discharge Care Plan Diagnosis: (1) Osteomyelitis of ankle or foot, right, acute (2) GI bleed (3) Atrial fibrillation (4) ESRD (end stage renal disease) on dialysis (5) Diabetes mellitus Goals to Promote Your Health * To prevent worsening of your condition and complications * To maintain your health at the optimal level Directions to Meet Your Goals Take your medications as prescribed Follow your dietary instruction Follow activity as directed Keep your appointments as scheduled Take your immunizations and boosters as scheduled If your symptoms worsen call your PCP, if no PCP go to Urgent Care Center or Emergency Room Smoking is Dangerous to Your Health. Avoid second hand smoke Call the 24-hour hour crisis hotline for domestic abuse at Michele Palacios MD, R3 Oct 01, 2017 11:18
[2017-10-01 12:42] LABS: HEMATOCRIT 25.5 % (35.0-46.0); HEMOGLOBIN 8.5 GM/DL (11.6-15.3); MEAN CELL VOLUME 86.1 FL (80.0-100.0); MEAN CORPUSCULAR HEMOGLOBIN 28.6 PG (27.0-34.0); MEAN CORPUSCULAR HGB CONC 33.2 % (32.0-36.0); PLATELET COUNT 416 TH/MM3 (150-450); RED BLOOD COUNT 2.96 MIL/MM3 (4.00-5.30); RED CELL DISTRIBUTION WIDTH 16.9 % (11.6-17.2)
[2017-10-01 13:19] LABS: ALBUMIN 1.3 GM/DL (3.4-5.0); ALT (GPT) 11 U/L (10-53); AST (GOT) 38 U/L (15-37); BICARBONATE 29.2 MEQ/L (21.0-32.0); BLOOD UREA NITROGEN 32 MG/DL (7-18); CALCIUM 7.9 MG/DL (8.5-10.1); CHLORIDE 99 MEQ/L (98-107); CREATININE 6.32 MG/DL (0.50-1.00); GLOMERULAR FILTRATION RATE 8 ML/MIN (>89); GLUCOSE,RANDOM 110 MG/DL (74-106); SODIUM (NA) 136 MEQ/L (136-145)
[2017-10-01 13:27] LABS: ALKALINE PHOSPHATASE 236 U/L (45-117); TOTAL BILIRUBIN ADULT 0.3 MG/DL (0.2-1.0); TOTAL PROTEIN 6.7 GM/DL (6.4-8.2)
--- NOTE | 2017-10-01 20:00 | PD.CAR.PN ---
CVT Progress Note Subjective/Hospital Course: Consult received Full dictation to follow For podiatry debridement Saturday and after that we will evaluate as far as salvageability of the leg is concerned Thanks Jean Paul 09/09/17 Patient with severe peripheral vascular disease gangrene of the right heel and osteomyelitis Every effort has been made by podiatry to salvage the foot and there are no other options left I agree with Dr. Galvez and Dr. Nadir Mello, and the only option at this time is right below-knee amputation Patient scheduled for right below-knee amputation with second and third opinion of additional 2 physicians Today's BKA has to be canceled due to the fact that patient's hemoglobin is 6.7 and due to logistical reasons transfusion of 2 units PRBC was not not administered prior to taking patient to the operating room this afternoon. Considering this is purely elective procedure I believe it's safe and appropriate to transfuse this patient in peace and do surgery tomorrow Patient scheduled for right BKA tomorrow 09/10/17 Patient was initially rescheduled for surgery today however she had some bright red blood per rectum and surgery is now canceled GI bleeding takes precedence and patient will need a full workup on this issue before proceed with amputation If patient needs some gastrointestinal surgery or general surgical intervention I will be available and we'll continue to follow patient Once everything resolved we will reconsider the amputation issue 09/11/17 Hemoglobin again down to 6.9 g/dL as a result of GI bleeding Completely agree with medicine and gastroenterology approach and plan No clear site of bleeding and identified and this is often a problem in patients who have multiple pathologies, all of which could be attributing to the bleeding process including diverticular disease AVM malformations and such Most of these bleeds will see his on the round and only about 10-15% of patients will require actual surgery for the same. Precise identification of the bleeding site being the right or the left colon is imperative should patient require surgery for continuous bleeding, for knowing in their and having to do subtotal colectomy on this lady would double the mortality as opposed only removing the right or the left colon. Sometimes however we cannot identify the bleeding site and then subtotal colectomy remains the only option. Will continue follow patient which you and if patient require surgery I will be available to preform it. As far as the leg is concerned, amputation is now a secondary issue and will not be undertaken until the above issues are resolved and treated satisfactorily. 09/12/17 Patient currently stabilized from GI bleeding Hemoglobin is now stable Angiogram is negative for bleeding but that the requires at least the bleeding of 3 cc/minute to show up On the other hand no clear scan does reveal bleeding which in this case looks like transverse colon Majority of these bleeds will stop on the round with good supportive therapy and patient doesn't need further interventions On the other hand if the patient gets up to 6-8 units of blood transfusions than the risk of surgery is by far exceeded by the risk of repeated transfusions and then surgery is indicated We'll see how patient does and recommend as we go along Discussed with Dr Mi 09/13/17 Patient with diverticulosis and the likely transverse to left colon bleed Agree with Dr. Mi as to the site of bleeding Abdomen is soft active bowel sounds the patient appears to be stable She dropped her hemoglobin bit yesterday he received 1 more units of blood and now it's up again Patient is now 5 units PRBC later and the another unit or 2 and then we'll have to take patient to the operating room for extended left colectomy if this doesn't stop because then the risk of bleeding and problems with transfusion exceeds the risk of surgery We'll see the patient does through the weekend but she is close to needing surgery at this time 09/14/17 Patient doing okay now Abdomen is soft active bowel sounds Hemoglobin appears to be relatively stable between 9 and 8 g/dL and holding. As noted above patient has received 5 units of PRBCs up to now and once we get to point of 67 or 8 units and patient continues to lose blood, then the risk of surgery is less than the risk of repeated transfusions and at that point patient would need left colectomy. Discussed with Dr. Mi and we agree on being very conservative in this situation and doing everything to avoid surgery in this lady. Will continue to follow 09/15/17 Patient had some bleeding last night and hemoglobin was repeated to come back at 10 g/dL This was clearly old blood yet this morning hemoglobin is 8.1 g/dL some believe that former number was probably incorrect last night Patient doesn't appear to have active bleeding If she requires more blood and starts bleeding again should definitely go to the operating room from extended left colectomy At this point would advance to the diet and allow patient to eat and see how she does There is a high likelihood that patient will require left colon resection which of course is a procedure associated with some degree morbidity in this elderly lady. 09/16/17 Patient doing well at this time Abdomen soft active bowel sounds tolerates diet No more fresh or maroon blood per rectum Hemoglobin remains relatively stable between 7.5 and 8 g/dL Continue observation if patient drops hemoglobin 1 more time and starts bleeding she'll be going to the operating room for extended left colectomy 09/17/2017 Patient still passing clots some of the same I liquid blood and some more formed some maroon than some fresh At this point case discussed at length with medical attending and decision is made that this patient eventually clearly need surgery. I have discussed this with patient at length and she is reluctant to have surgery if she needs a colostomy, which is very unlikely but not completely excluded Patient will be cleaned out with GoLYTELY prep and is scheduled tomorrow for extended left colectomy with primary anastomosis 09/19/2017 Patient is status post extended left colectomy with low anterior anastomosis yesterday Incision clean and dry and abdomen is soft with few bowel sounds Of course no gas yet keep n.p.o. but for medications Patient can be out of bed with a binder Continue current care Patient can transfer to floor from my point any time 09/20/2017 Patient is still in ICU but as above noted yesterday from surgical point patient can transfer to floor anytime Perhaps there were no beds available Patient is doing well Abdomen is soft hypoactive bowel sounds incision is clean and dry Patient should get aggressive physical therapy to prevent her from being bedridden in the future We will advance to full liquids and from there as tolerated to diet It should be noted that this patient will still require below-knee amputation as she was originally the consult for the same However I do not want to put 2 surgeries to close together and I would allow patient to recover from this first Next surgery should probably not be done before middle or end of next week 09/21/2017 Patient doing well at this time Abdomen is soft with hypoactive bowel sounds incision is clean and dry Tolerates full liquids I would probably wait for another day or so before advancing diet further considering her frail state and degree of ileus This patient has low anterior resection and therefore should absolutely not receive any medication per rectum suppositories, enemas and such because this could disrupt the anastomosis. Any rectal manipulations or medications are absolutely contraindicated! Recommend Patient should probably get 1 unit of blood with next dialysis but there is no reason to keep the hemoglobin around 7 despite the fact that she is not bleeding anymore In addition patient sugar seems to be however around 50 and 70 and in face of decreased p.o. intake would be advisable to decrease the insulin administration until patient is back on full diet. I wrote her have patient hyperglycemic for a day or 2 then severely hypoglycemic even once which can be fatal For below-knee amputation next week 09/22/2017 Incision is clean and dry Abdomen is soft and nondistended Apparently patient vomited this morning. Patient has more than one reason to have prolonged ileus including renal failure, age bedridden status while in addition to surgery and narcotics administration Patient is awake but somewhat somnolent She truly needs to be more out of bed because whenever I come to visit the patient is laying in bed She should be aggressively moves around placed in chair and encouraged to deep breathe and move her legs even in the sitting position for otherwise she will have a prolonged ileus and will not do well in the and In addition I encouraged decreasing the dose of narcotics for this elderly lady 09/23/2017 Patient doing well at this time Abdomen soft active bowel sounds Tolerating diet well Hemoglobin stable Other medical nonrelated issues being addressed By the end of the week we will schedule patient for below-knee amputation all things equal 09/24/2017 Abdomen soft Incision clean and dry Active bowel sounds with minimal tenderness Tolerating p.o. diet and having bowel movements Plan for right below-knee amputation Saturday should patient remain stable 09/25/2017 Patient doing well at this time Hemodynamically stable Abdomen soft active bowel sounds in incision clean and dry post left colectomy with low anterior anastomosis In face of the above we will proceed with a right below-knee amputation Saturday and all things equal patient will be able to go to rehab after that 09/26/2017 Patient doing well at this time. New onset a-fib. Patient can go to OR in a-fib, as long as rate controlled. Agree with B- blockers and Ca channel blockers. Will postpone till Saturday to allow for time to stabilize the hemodynamics. We will go ahead with a right below-knee amputation Saturday morning All other things remain unchanged This has been at length discussed with patient at several occasions and she agrees with the surgery 09/29/2017 Status post right below-knee amputation Patient hemodynamically stable Dressing intact and will leave original dressing on until Saturday Nothing to acute care at this time Abdomen soft active bowel sounds Tolerates diet well Patient has delayed healing so melissa should stay in place for at least 2 weeks total which comes to about 10/01/2017 Patient doing well at this time incision is clean and dry Small amount of dark drainage from the abdominal incision this appears to be old blood rather than anything else Patient would of course be high risk candidate for a colocutaneous fistula but there does not appear to be one Dressing changed Objective: Vital Signs Date Time Temp Pulse Resp B/P (MAP) Pulse Ox O2 Delivery O2 Flow Rate FiO2 10/01/17 16:00 98.4 74 18 166/81 (109) 99 10/01/17 12:00 99.6 97 18 131/78 (95) 91 10/01/17 11:51 96 Nasal Cannula 2.00 10/01/17 08:00 96.7 76 18 163/75 (104) 92 10/01/17 04:09 96 Nasal Cannula 2.00 10/01/17 04:00 98.2 73 18 166/73 (104) 98 10/01/17 00:00 76 10/01/17 00:00 98.3 71 18 154/71 (98) 96 09/30/17 20:35 100.7 82 16 172/84 (113) 98 09/30/17 20:00 81 Labs: Laboratory Tests Test 10/01/17 11:43 White Blood Count 13.0 TH/MM3 (4.0-11.0) Red Blood Count 2.96 MIL/MM3 (4.00-5.30) Hemoglobin 8.5 GM/DL (11.6-15.3) Hematocrit 25.5 % (35.0-46.0) Mean Corpuscular Volume 86.1 FL (80.0-100.0) Mean Corpuscular Hemoglobin 28.6 PG (27.0-34.0) Mean Corpuscular Hemoglobin Concent 33.2 % (32.0-36.0) Red Cell Distribution Width 16.9 % (11.6-17.2) Platelet Count 416 TH/MM3 (150-450) Mean Platelet Volume 9.0 FL (7.0-11.0) Blood Urea Nitrogen 32 MG/DL (7-18) Creatinine 6.32 MG/DL (0.50-1.00) Random Glucose 110 MG/DL (74-106) Total Protein 6.7 GM/DL (6.4-8.2) Albumin 1.3 GM/DL (3.4-5.0) Calcium Level 7.9 MG/DL (8.5-10.1) Alkaline Phosphatase 236 U/L (45-117) Aspartate Amino Transf (AST/SGOT) 38 U/L (15-37) Alanine Aminotransferase (ALT/SGPT) 11 U/L (10-53) Total Bilirubin 0.3 MG/DL (0.2-1.0) Sodium Level 136 MEQ/L (136-145) Potassium Level 4.2 MEQ/L (3.5-5.1) Chloride Level 99 MEQ/L (98-107) Carbon Dioxide Level 29.2 MEQ/L (21.0-32.0) Anion Gap 8 MEQ/L (5-15) Estimat Glomerular Filtration Rate 8 ML/MIN (>89) Thyroid Stimulating Hormone 3rd Gen 15.200 uIU/ML (0.358-3.740) Result Diagram: 10/01/17 1143 10/01/17 1143 Amalia De La Cruz MD Oct 01, 2017 20:00
[2017-10-01] MEDS: MIRTAZAPINE 15 MG TAB PO SCH (22:03)
[2017-10-01] MEDS: hydrOXYzine HCL 25 MG TAB PO SCH (22:03)
[2017-10-02 00:45] VITALS: BP 139/64; PULSE 76; RESP 18; TEMP 99.6; O2SAT 93
[2017-10-02 04:00] VITALS: BP 176/81; PULSE 73; RESP 18; TEMP 97.8; O2SAT 95
[2017-10-02] MEDS: LEVOTHYROXINE SODIUM 75 MCG TAB PO SCH (06:23)
[2017-10-02] MEDS: oxyCODONE/ACETAMINOPHEN 7.5 MG/325 MG TAB PO PRN (06:24)
[2017-10-02 08:00] VITALS: BP 137/64; PULSE 71; RESP 17; TEMP 98.9; O2SAT 92
[2017-10-02] MEDS: INSULIN ASPART SUPPLEMENTAL SCALE SQ SCH ×2 (08:00→12:00)
[2017-10-02 08:52] LABS: HEMATOCRIT 25.1 % (35.0-46.0); HEMOGLOBIN 8.2 GM/DL (11.6-15.3); MEAN CELL VOLUME 85.9 FL (80.0-100.0); MEAN CORPUSCULAR HEMOGLOBIN 28.2 PG (27.0-34.0); MEAN CORPUSCULAR HGB CONC 32.9 % (32.0-36.0); MEAN PLATELET VOLUME 8.6 FL (7.0-11.0); PLATELET COUNT 426 TH/MM3 (150-450); RED BLOOD COUNT 2.92 MIL/MM3 (4.00-5.30); RED CELL DISTRIBUTION WIDTH 17.3 % (11.6-17.2); WHITE BLOOD COUNT 12.1 TH/MM3 (4.0-11.0)
[2017-10-02] MEDS: VITAMIN B CMPLX/VITC/FOLIC AC CAP PO SCH (09:00)
[2017-10-02] MEDS: SODIUM CHLORIDE 0.9% FLUSH 10 ML FLUSH IV FLUSH SCH (09:00)
--- NOTE | 2017-10-02 09:10 | HHI.NPPN ---
Subjective General Problems: Anemia Renal Failure: Chronic, End Stage Renal Disease Interval History Seen during dialysis. She is to be discharged to rehab today. (Teresa Parekh) Review of Systems General Constitutional: Fever, Fatigue (Teresa Parekh) Respiratory Respiratory Remarks Denies any SOB (Teresa Parekh) Cardiovascular Cardiac Remarks Denies any CP (Teresa Parekh) Gastrointestinal Gastrointestinal: Blood/Tarry Stools (Teresa Parekh) Musculoskeletal MS: Pain/Stiffness (Teresa Parekh) Skin Skin: Ulcers (Teresa Parekh) Psych Psych: Depression (Teresa Parekh) Objective Data Data Vital Signs Date Time Temp Pulse Resp B/P (MAP) Pulse Ox O2 Delivery O2 Flow Rate FiO2 10/02/17 08:00 98.9 71 17 137/64 (88) 92 10/02/17 04:00 97.8 73 18 176/81 (112) 95 10/02/17 00:45 99.6 76 18 139/64 (89) 93 10/01/17 20:39 99.6 77 18 159/72 (101) 98 10/01/17 16:00 98.4 74 18 166/81 (109) 99 10/01/17 12:00 99.6 97 18 131/78 (95) 91 10/01/17 11:51 96 Nasal Cannula 2.00 (Teresa Parekh) -: 10/02/17 0811 10/01/17 1143 Physical Exam General Appearance: Well Developed, No Acute Distress, Comfortable, Malnourished (Teresa Parekh) Eyes Eye Exam: Pupils Equal (Teresa Parekh) Throat Throat Exam: Oral Mucosa [place] & Moist (Teresa Parekh) Neck Neck Exam: Neck Supple (Teresa Parekh) Pulmonary Resp Exam: Clear Bilaterally, Breath Sounds Equal (Teresa Parekh) Cardiology CV Exam: Regular, Normal Sinus Rhythm, Good Perfusion (Teresa Parekh) Gastrointestinal/Abdomen GI Exam: Soft, Non-Tender, Bowel Sounds Present, Positive Bowel Movement GI Remarks Abdominal binder in place (Teresa Parekh) Musculoskeletal MS Exam: Normal Tone, Good Strength MS Remarks s/p R BKA (Teresa Parekh) Integumentary Skin Exam: Warm, Dry Skin Remarks dressing in place (Teresa Parekh) Extremeties Extremities Exam: No Edema Extremeties Remarks Left arm AVF + bruit/thrill (Teresa Parekh) Neurologic Neuro Exam: Alert, Awake, Oriented, Speech Clear, Moving All Extremities (Teresa Parekh) Psychiatric Psych Exam: Appropriate Responses (Teresa Parekh) Assessment/Plan Discussed Condition With: Patient Assessment Summary: Anemia of CKD, Hypertension, End Stage Renal Disease Problem List: (1) ESRD (end stage renal disease) on dialysis ICD Codes: N18.6 - End stage renal failure on dialysis; Z99.2 - Dependence on renal dialysis Status: Chronic Plan: Seen during dialysis today on a 3K, 350 BFR, goal 3L Continue HD MWF. Monitor fluid and electrolytes. Stable for discharge to [facility]. Left arm AVF functions well. Avoid IVF administration. High protein diet encouraged. (2) GI bleed ICD Codes: K92.2 - Gastrointestinal hemorrhage, unspecified Status: Acute Plan: Resolving GI and general surgery have followed s/p L hemicolectomy Follow H/H (3) Anemia ICD Codes: D64.9 - Anemia, unspecified Status: Acute Plan: Persistently anemic On Epogen with dialysis.Given Venofer. (4) Foot ulcer, right ICD Codes: L97.519 - Non-pressure chronic ulcer of other part of right foot with unspecified severity Status: Acute Plan: s/p BKA . Vascular surgery following. Off antibiotics. Most likely will need aggressive PT/OT (5) Metabolic bone disease ICD Codes: E88.9 - Metabolic disorder, unspecified; M90.80 - Osteopathy in diseases classified elsewhere, unspecified site Status: Acute Plan: Monitor phosphorus intermittently. Continue Renvela, advised compliance. (6) Hypertension ICD Codes: I10 - Hypertension Status: Chronic Plan: monitor BP, continue medications. (7) Diabetes mellitus ICD Codes: E11.9 - Type 2 diabetes mellitus without complications Status: Chronic Plan: Continue insulin coverage while hospitalized, maintain blood glucose between 140 and 180. (Teresa Parekh) Plan patient was seen and examined during dialysis. [facility]. We will continue dialysis MWF. (Dao Greene MD) Problem Qualifiers (1) Foot ulcer, right: Qualified Codes: L97.512 - Non-pressure chronic ulcer of other part of right foot with fat layer exposed (2) Hypertension: Qualified Codes: I10 - Essential (primary) hypertension Teresa Parekh Oct 02, 2017 09:10 Dao Greene MD Oct 02, 2017 09:39
[2017-10-02 09:31] LABS: BICARBONATE 29.6 MEQ/L (21.0-32.0); CALCIUM 8.4 MG/DL (8.5-10.1); CREATININE 7.64 MG/DL (0.50-1.00)
[2017-10-02 09:34] VITALS: O2SAT 92
--- NOTE | 2017-10-02 10:47 | HHI.DS ---
Discharge Summary Admission Date Sep 06, 2017 at 21:00 Discharge Date: Oct 02, 2017 Admitting Diagnosis infected diabetic ulcer, failed outpatient tx, ESRD on dialysis (1) Osteomyelitis of ankle or foot, right, acute Diagnosis: Principal Plan: Postop day #3, status post BKA on the right Vascular consulted, Dr. Reaves Pain control: Refusing morphine. On Percocet 5/325 mg 1 tablet every 4 hours as needed pain scale 3-6, 7.5 mg every 4 hours pain 7-10. ID Consulted and discontinued antibiotics 09/30 ICD Codes: M86.171 - Other acute osteomyelitis, right ankle and foot Status: Acute (2) Diarrhea Diagnosis: Secondary Plan: Patient reports no diarrhea today * C. difficile cultures negative ICD Codes: R19.7 - Diarrhea, unspecified (3) GI bleed Diagnosis: Principal Plan: S/P hemicolectomy with surgical anastomosis. No reported diarrhea today. No concern of abdominal pain today. GI signed off 09/14 Continue IV Protonix 40 mg IV BID. Aggressive PT as tolerated. ICD Codes: K92.2 - Gastrointestinal hemorrhage, unspecified Status: Acute (4) Atrial fibrillation Diagnosis: Secondary Plan: Found to have atrial fibrillation during this hospitalization, currently in sinus rhythm and no further episodes at this time. Likely paroxysmal Now in sinus rhythm. Continue carvedilol Holding anticoagulation because of GI bleeding. ICD Codes: I48.91 - Unspecified atrial fibrillation Status: Acute (5) High risk of cardiac event Diagnosis: Secondary Plan: Cardiovascular risk factors are many, including T2DM, hypertension, ESRD on dialysis. Myocardial perfusion scan on 09/27: Low risk ICD Codes: Z91.89 - Other specified personal risk factors, not elsewhere classified (6) ESRD (end stage renal disease) on dialysis Diagnosis: Secondary Plan: Dialysis Saturday, Saturday, Saturday typically. Sees Dr. Buchanan, resources representative outpatient. No urine output Nephrology consulted: Appreciate recommendations * Resume dialysis 3x/wk * Monitor phosphorus intermittently, use binders as appropriate. * Fluid restriction ICD Codes: N18.6 - End stage renal failure on dialysis; Z99.2 - Dependence on renal dialysis Status: Chronic (7) Diabetes mellitus Diagnosis: Secondary Plan: History of long-term diabetes on insulin at home -Sliding scale insulin -Monitor accuchecks ICD Codes: E11.9 - Type 2 diabetes mellitus without complications Status: Chronic (8) Hypertension Diagnosis: Secondary Plan: Continue carvedilol Cont home amlodipine. ICD Codes: I10 - Hypertension Status: Chronic (9) Hypothyroidism Diagnosis: Secondary Plan: Continue home Synthroid. * TSH pending for the am ICD Codes: E03.9 - Hypothyroidism Status: Chronic (10) FEN Diagnosis: Secondary Plan: Fluids: Tolerating by mouth. Electrolytes: monitor, replace PRN. Nutrition: As guided by GI DVT ppx: hold chemoppx due to surgery/GI bleed, SCDs PT eval and treat OT restarted today Status: Acute Consultants Vascular surgery Infectious disease Nephrology Procedures 09/28/17: Right BKA 09/18/17: Left colon resection, low anterior anastomosis Brief History Ms Bolivar is a 72 y/o -[place] female who presented with right foot wound for about 2 months. She was seen at the planning official's office by Dr. Bentley, who sent her over to be admitted. Noticed some increased pus drainage from the site. She was recently hospitalized in July and underwent surgical exploration and had a wound VAC placed at that time. Since then, she states the wound has been stable, but possible worsening signs of infection. States she was given antibiotics at home, Levaquin. Some pain in her foot, but minimal due to diabetic neuropathy. Occasional shooting pain down her right foot. Denies any fever/chills, nausea/vomiting, chest pain, SOB. Of note, hasn't had dialysis today, follows with Dr. Buchanan. She had surgery today to debride her foot. She is a little groggy after her surgery but has no pain. CBC/BMP: 10/02/17 0811 10/02/17 0811 Significant Findings Laboratory Tests Test 09/30/17 09:00 09/30/17 09:30 09/30/17 11:32 10/01/17 11:43 Blood Urea Nitrogen 39 MG/DL (7-18) 32 MG/DL (7-18) Creatinine 7.75 MG/DL (0.50-1.00) 6.32 MG/DL (0.50-1.00) Random Glucose 61 MG/DL (74-106) 110 MG/DL (74-106) Calcium Level 8.0 MG/DL (8.5-10.1) 7.9 MG/DL (8.5-10.1) Sodium Level 135 MEQ/L (136-145) Potassium Level 5.2 MEQ/L (3.5-5.1) Estimat Glomerular Filtration Rate 6 ML/MIN (>89) 8 ML/MIN (>89) Red Blood Count 3.04 MIL/MM3 (4.00-5.30) 2.96 MIL/MM3 (4.00-5.30) Hemoglobin 8.0 GM/DL (11.6-15.3) 8.5 GM/DL (11.6-15.3) Hematocrit 24.2 % (35.0-46.0) 25.5 % (35.0-46.0) Mean Corpuscular Volume 79.6 FL (80.0-100.0) Mean Corpuscular Hemoglobin 26.5 PG (27.0-34.0) White Blood Count 13.0 TH/MM3 (4.0-11.0) Albumin 1.3 GM/DL (3.4-5.0) Alkaline Phosphatase 236 U/L (45-117) Aspartate Amino Transf (AST/SGOT) 38 U/L (15-37) Thyroid Stimulating Hormone 3rd Gen 15.200 uIU/ML (0.358-3.740) Test 10/02/17 08:11 White Blood Count 12.1 TH/MM3 (4.0-11.0) Red Blood Count 2.92 MIL/MM3 (4.00-5.30) Hemoglobin 8.2 GM/DL (11.6-15.3) Hematocrit 25.1 % (35.0-46.0) Red Cell Distribution Width 17.3 % (11.6-17.2) Blood Urea Nitrogen 42 MG/DL (7-18) Creatinine 7.64 MG/DL (0.50-1.00) Random Glucose 61 MG/DL (74-106) Calcium Level 8.4 MG/DL (8.5-10.1) Estimat Glomerular Filtration Rate 6 ML/MIN (>89) Imaging Last Impressions Myocardial Perfusion Scan Nuc Med 09/27/17 0000 Signed Impressions: Service Date/Time: Wednesday, September 27, 2017 11:57 - CONCLUSION: Unremarkable myocardial perfusion examination. RISK CATEGORY: Low Nain Castillo MD Chest X-Ray 09/26/17 0000 Signed Impressions: Service Date/Time: September 10:16 - CONCLUSION: 1. Questionable small apical pneumothorax on the left. 2. Cardiomegaly with pulmonary vascular engorgement. 3. No infiltrates or effusions. Praneeth Villa Jr., MD GI Bleed Scan Nuclear Medicine 09/11/17 0000 Signed Impressions: Service Date/Time: Monday, September 11, 2017 15:51 - CONCLUSION: Active hemorrhage observed in what is felt to be transverse colon. Praneeth Villa Jr., MD Abdomen Arteriogram 09/11/17 Signed Impressions: Service Date/Time: Monday, September 11, 2017 20:01 - CONCLUSION: 1. Diagnostic mesenteric angiography fails to show a source of hemorrhage or site of hemorrhage. Praneeth Villa Jr., MD Foot MRI 09/07/17 0000 Signed Impressions: Service Date/Time: Thursday, September 07, 2017 17:51 - CONCLUSION: 1. Osteomyelitis has developed at the fifth metatarsal base. 2. Slightly worsening osteomyelitis great toe head of the proximal phalanx and distal half of the distal phalanx. 3. Worsening osteomyelitis of the fibular sesamoid. There superficial osteomyelitis of the tibial sesamoid not significantly changed. 4. No drainable abscess. 5. Signal changes of the medial and intermediate cuneiforms and the third metatarsal base are most likely reactive. Ankle MRI to follow and please refer to that report for ankle and hindfoot findings. Jacob Hall MD Ankle MRI 09/07/17 0000 Signed Impressions: Service Date/Time: Thursday, September 07, 2017 17:51 - CONCLUSION: 1. Severe soft tissue ulceration laterally and posteromedially of the ankle/hindfoot. 2. 2.8 cm fluid collection in the posterolateral gutter, potentially an abscess. 3. Osteomyelitis of the calcaneus, scattered/patchy but most of the bone is involved, especially laterally. 4. Also osteomyelitis of the distal 4 cm of the fibula. 5. Possible osteomyelitis focally of the posteromedial aspect of the talus. Please see above. 6. Exposed peroneal tendons but grossly intact. Considerable tendinosis of the flexor hallucis longus at the level of the distal leg and certainly could be infectious given the other findings. Patient had MRI of the right foot today. Please refer to that report for midfoot and forefoot findings. Jacob Hall MD Foot X-Ray 09/06/17 0000 Signed Impressions: Service Date/Time: Wednesday, September 06, 2017 20:00 - CONCLUSION: 1. Osteopenia. No acute bony abnormality. Daniel Hinkle MD PE at Discharge GEN: Thin, elderly AAF in NAD, lying in bed scratching her right knee. CV: Regular rate and rhythm without obvious murmurs LUNGS: CTAB with no wheezing, rales or rhonchi. GI: Nondistended, soft, abdominal binder in place; drain in place and is CDI. EXT: No edema, chronic venous stasis changes, present. No calf tenderness. Status post BKA, currently wrapped. Clean and dry. Left side AV fistula with palpable bruit. NEURO/PSYCH: Awake, alert. Appropriate insight and judgment. Normal speech Hospital Course Mrs. Bolivar was admitted after failing outpatient ABX for her right foot diabetic ulcer. She did develop a Lower GI bleed during admission and despite 2 colonoscopies, 1 RBC bleeding scan, and intervential radiology artery embolization, required 6 units of PRBCs and a hemicoloectomy. She recovered well from this procedure. She more recently developed a fib, and was started on carvedilol. Her rate has been controlled since this time. Given her high CV risk , a cardiac stress test was performed prior to a BKA on 09/28/[address] Reaves. she did well postoperatively. Infectious disease was consulted to help with antibiotic management. After her BKA, she did not require any more antibiotics. She was discharged to [facility]. Pt Condition on Discharge: Stable Discharge Disposition: Rehab Inpatient Discharge Instructions DIET: Follow Instructions for: Renal Failure Diet Activities you can perform: Weight Bearing as [place] Follow up Referrals: Cardiology - 2 Weeks Gastroenterology - 2 Weeks PCP Follow-up - 1 Week Vascular Surgery - 1 Week with Amalia De La Cruz MD New Medications: Carvedilol (Coreg) 3.125 Mg Tab 3.125 MG PO Q12HR, #60 TAB Oxycodone HCl/Acetaminophen (Oxycodon-Acetaminophen 7.5-325) 7.5 Mg-325 Mg Tablet 1 TAB PO Q6HR PRN for PAIN SCALE 7 TO 10, #30 TAB 0 Refills Continued Medications: Albuterol 8.5 GM Inh (Proair Hfa 8.5 GM Inh) 90 Mcg/Act Aer 2 PUFF INH Q4-6H PRN for SHORTNESS OF BREATH, #1 INHALER 0 Refills 108 mcg/actuation Amlodipine (Amlodipine) 10 Mg Tab 10 MG PO DAILY for Blood Pressure Management, #30 TAB [address] (Aspir-81) 81 Mg Tabdr 81 MG PO DAILY, #90 3 Refills Hydroxyzine HCl (Hydroxyzine HCl) 25 Mg Tab 25 MG PO HS, #30 TAB 0 Refills Insulin Glargine Inj (Lantus Solostar Pen Inj) 300 Unit/3 Ml Pen 10 UNITS SQ HS for Blood Sugar Management, #1 PEN 0 Refills Levothyroxine (Levothyroxine) 75 Mcg Tab 75 MCG PO DAILY for Thyroid, #30 TAB 0 Refills Mirtazapine (Remeron) 15 Mg Tab 15 MG PO HS for Depression Control, #30 TAB 5 Refills Pantoprazole (Pantoprazole) 40 Mg Tab 40 MG PO DAILY for Manage Heartburn, #30 TAB Vitamin B Cmplx/Vit C/Folic AC (Nephro-Jammie Rx) 1 Tab 1 TAB PO DAILY, #30 TAB 2 Refills Michele Palacios MD, R3 Oct 02, 2017 10:47
--- NOTE | 2017-10-02 11:09 | HHI.FPPN ---
Subjective Remarks Ms Bolivar had no acute events overnight. She is in dialysis on exam today and ready to discharge to [facility]. She was held overnight as nursing spotted some drainage on the bandage from her hemicolectomy surgical wound. Upon inspection, Dr De La Cruz indicates it was old blood and not a new bleed. Pt is tolerating PO, voiding, stooling, and able to get out of bed to work with PT and ready for rehab. Denies CP, SOB, N/V/D and DVT pain. (Ken Ritter MD R1) Objective Vitals Vital Signs Date Time Temp Pulse Resp B/P (MAP) Pulse Ox O2 Delivery O2 Flow Rate FiO2 10/02/17 09:34 92 Nasal Cannula 2.00 10/02/17 08:00 98.9 71 17 137/64 (88) 92 10/02/17 04:00 97.8 73 18 176/81 (112) 95 10/02/17 00:45 99.6 76 18 139/64 (89) 93 10/01/17 20:39 99.6 77 18 159/72 (101) 98 10/01/17 16:00 98.4 74 18 166/81 (109) 99 10/01/17 12:00 99.6 97 18 131/78 (95) 91 10/01/17 11:51 96 Nasal Cannula 2.00 I/O 10/01/17 10/01/17 10/01/17 10/02/17 10/02/17 10/02/17 07:00 15:00 23:00 07:00 15:00 23:00 Intake Total 460 ml 240 ml Balance 460 ml 240 ml Intake Oral 460 ml 240 ml # Voids 0 # Bowel Movements 1 0 2 (Ken Ritter MD R1) Result Diagram: 10/02/17 0811 10/02/17 0811 Objective Remarks GEN: Thin, elderly AAF in NAD, lying in bed in hemodialysis suite. CV: Regular rate and rhythm without obvious murmurs LUNGS: CTAB with no wheezing, rales or rhonchi. GI: Nondistended, soft, normal BS; c/d/i dressing on midline abdominal wound with no s/s of drainage. EXT: No edema, chronic venous stasis changes, present. No calf tenderness. Status post BKA, currently wrapped. Clean and dry. Left side AV fistula with palpable bruit. NEURO/PSYCH: Awake, alert. Appropriate insight and judgment. Normal speech Procedures 09/28/17: Right BKA 09/18/17: Left colon resection, low anterior anastomosis Medications and IVs Current Medications Medications (Trade) Dose Ordered Sig/Rita Route Start Time Stop Time Status Last Admin (NS Flush) 2 ml UNSCH PRN IV FLUSH 09/06/17 21:45 (NS Flush) 2 ml BID IV FLUSH 09/07/17 09:00 10/01/17 22:04 (Zofran Inj) 4 mg Q6H PRN IVP 09/06/17 21:45 09/20/17 12:04 (Narcan Inj) 0.4 mg UNSCH PRN IV PUSH 09/06/17 21:45 (Milk Of Magnesia Liq) 30 ml Q12H PRN PO 09/06/17 21:45 (Senokot) 17.2 mg Q12H PRN PO 09/06/17 21:45 (Lactulose Liq) 30 ml DAILY PRN PO 09/06/17 21:45 (D50w (Vial) Inj) 50 ml UNSCH PRN IV PUSH 09/06/17 22:00 09/21/17 08:08 (Glucagon Inj) 1 mg UNSCH PRN OTHER 09/06/17 22:00 (Proair Hfa Inh) 2 puff Q4H PRN INH 09/06/17 22:00 (Norvasc) 10 mg DAILY PO 09/07/17 09:00 10/01/17 08:30 (Ecotrin Ec) 81 mg DAILY PO 09/07/17 09:00 Future Hold 09/08/17 09:00 (Atarax) 25 mg HS PO 09/07/17 21:00 10/01/17 22:03 (Synthroid) 75 mcg DAILY@0600 PO 09/07/17 06:00 10/02/17 06:23 (Nephrocaps) 1 cap DAILY PO 09/07/17 09:00 10/01/17 08:31 (Remeron) 15 mg HS PO 09/07/17 00:00 10/01/17 22:03 Sodium Chloride 1,000 ml @ 0 mls/hr Q0M PRN OTHER 09/07/17 09:20 09/10/17 11:30 (Heparin Inj) 8,000 units UNSCH PRN IV FLUSH 09/07/17 09:30 Sodium Chloride 1,000 ml @ 200 mls/hr Q5H PRN IV 09/07/17 09:20 Sodium Chloride 1,000 ml @ 0 mls/hr Q0M PRN OTHER 09/07/17 09:20 (Mannitol Inj) 12.5 gm UNSCH PRN IV 09/07/17 09:30 Albumin Human 100 ml @ 60 mls/hr UNSCH PRN IV 09/07/17 09:30 (NS Flush) 5 ml UNSCH PRN IV FLUSH 09/07/17 09:30 (Heparin Inj) UNSCH PRN .XX 09/07/17 09:30 (Gentamicin Inj) 20 mg UNSCH PRN OTHER 09/07/17 09:30 (Zofran Inj) 4 mg UNSCH PRN IV PUSH 09/07/17 09:30 09/21/17 15:48 (Benadryl) 25 mg UNSCH PRN PO 09/07/17 09:30 09/14/17 06:40 (Nitrostat Sl) 0.4 mg UNSCH PRN SL 09/07/17 09:30 (Catapres) 0.1 mg UNSCH PRN PO 09/07/17 09:30 09/17/17 10:19 (Gelfoam 12 Mm/7 Mm Top) 1 foam UNSCH PRN TOP 09/07/17 09:30 09/30/17 12:04 (Protonix Inj) 40 mg Q12H IV PUSH 09/09/17 09:00 10/01/17 22:04 (Renvela) 1,600 mg TIDAC PO 09/10/17 12:00 10/01/17 18:18 (Percocet 5-325 Mg) 1 tab Q4H PRN PO 09/22/17 11:15 09/29/17 15:55 (NovoLOG SUPPLEMENTAL SCALE) 1 ACHS SLIDING SCALE SQ 09/23/17 12:00 10/01/17 12:36 (Epogen Inj) 10,000 units UNSCH PRN IV PUSH 09/25/17 10:15 09/30/17 12:04 (Coreg) 3.125 mg Q12HR PO 09/26/17 10:15 10/01/17 22:03 (Percocet 7.5-325 Mg) 1 tab Q4H PRN PO 09/29/17 11:00 10/02/17 06:24 (Tylenol) 325 mg Q4H PRN PO 09/30/17 18:45 (Ken Ritter MD R1) A/P Assessment and Plan 72 y/o with chronic history of HTN, DM, ESRD, chronic foot wounds presents from podiatry clinic for evaluation. Admitted for osteomyelitis requiring RLE BKA. Developed a GI bleed during hospitalization. Hemicolectomy performed 2017. Status post right BKA on 09/28. Will discharge to [facility] today following HD. Discharge Planning BKA on the right on 09/28. Pt amenable to SNF/rehab placement and will DC as soon as placement can be arranged. (Ken Ritter MD R1) Attending Attestation Patient seen and examined. Case reviewed and discussed with the resident team. Agree with plan of care as discussed with me and documented in the resident note. she is ready and eager to go to rehab (Teresa Wang MD) Problem List: (1) Osteomyelitis of ankle or foot, right, acute ICD Codes: M86.171 - Other acute osteomyelitis, right ankle and foot Status: Acute Plan: Postop day #4, status post BKA on the right Vascular consulted, Dr. Reaves Pain control: Refusing morphine--makes pt sick and woozy. On Percocet 5/325 mg 1 tablet every 4 hours as needed pain scale 3-6, 7.5 mg every 4 hours pain 7- 10. ID Consulted and discontinued antibiotics 09/30 (2) Diarrhea ICD Codes: R19.7 - Diarrhea, unspecified Plan: Patient reports no diarrhea today * C. difficile cultures negative (3) GI bleed ICD Codes: K92.2 - Gastrointestinal hemorrhage, unspecified Status: Acute Plan: S/P hemicolectomy with surgical anastomosis. No reported diarrhea today. No concern of abdominal pain today. GI signed off 2/3 Continue IV Protonix 40 mg IV BID. Aggressive PT as tolerated. (4) Atrial fibrillation ICD Codes: I48.91 - Unspecified atrial fibrillation Status: Acute Plan: Found to have atrial fibrillation during this hospitalization, currently in sinus rhythm and no further episodes at this time. Likely paroxysmal Now in sinus rhythm. Continue carvedilol Holding anticoagulation because of GI bleeding. (5) High risk of cardiac event ICD Codes: Z91.89 - Other specified personal risk factors, not elsewhere classified Plan: Cardiovascular risk factors are many, including T2DM, hypertension, ESRD on dialysis. Myocardial perfusion scan on 09/27: Low risk (6) ESRD (end stage renal disease) on dialysis ICD Codes: N18.6 - End stage renal failure on dialysis; Z99.2 - Dependence on renal dialysis Status: Chronic Plan: Dialysis Saturday, Saturday, Saturday typically. Sees Dr. Buchanan, access rep outpatient. No urine output Nephrology consulted: Appreciate recommendations * Resume dialysis 3x/wk * Monitor phosphorus intermittently, use binders as appropriate. * Fluid restriction (7) Diabetes mellitus ICD Codes: E11.9 - Type 2 diabetes mellitus without complications Status: Chronic Plan: History of long-term diabetes on insulin at home -Sliding scale insulin -Monitor accuchecks (8) Hypertension ICD Codes: I10 - Hypertension Status: Chronic Plan: Continue carvedilol Cont home amlodipine. (9) Hypothyroidism ICD Codes: E03.9 - Hypothyroidism Status: Chronic Plan: Continue home Synthroid. * TSH 15.2--can address Levothyroxine as outpt (10) FEN Status: Acute Plan: Fluids: Tolerating by mouth. Electrolytes: monitor, replace PRN. Nutrition: Renal failure diet DVT ppx: hold chemoppx due to surgery/GI bleed, SCDs PT eval and treat OT eval and treat (Ken Ritter MD R1) Problem Qualifiers (1) Diarrhea: Qualified Codes: R19.7 - Diarrhea, unspecified (2) Atrial fibrillation: Qualified Codes: I48.0 - Paroxysmal atrial fibrillation (3) Hypertension: Qualified Codes: I10 - Essential (primary) hypertension (4) Hypothyroidism: Qualified Codes: E03.9 - Hypothyroidism, unspecified Ken Ritter MD R1 Oct 02, 2017 11:09 Teresa Wang MD Oct 03, 2017 10:19
[2017-10-02] MEDS: EPOETIN ALFA 10,000 UNITS/ML VIAL IV PUSH PRN (11:26)
--- NOTE | 2017-10-02 11:56 | PD.CAR.PN ---
CVT Progress Note Subjective/Hospital Course: Consult received Full dictation to follow For podiatry debridement Saturday and after that we will evaluate as far as salvageability of the leg is concerned Thanks Jean Paul 09/09/17 Patient with severe peripheral vascular disease gangrene of the right heel and osteomyelitis Every effort has been made by podiatry to salvage the foot and there are no other options left I agree with Dr. Galvez and Dr. Nadir Mello, and the only option at this time is right below-knee amputation Patient scheduled for right below-knee amputation with second and third opinion of additional 2 physicians Today's BKA has to be canceled due to the fact that patient's hemoglobin is 6.7 and due to logistical reasons transfusion of 2 units PRBC was not not administered prior to taking patient to the operating room this afternoon. Considering this is purely elective procedure I believe it's safe and appropriate to transfuse this patient in peace and do surgery tomorrow Patient scheduled for right BKA tomorrow 09/10/17 Patient was initially rescheduled for surgery today however she had some bright red blood per rectum and surgery is now canceled GI bleeding takes precedence and patient will need a full workup on this issue before proceed with amputation If patient needs some gastrointestinal surgery or general surgical intervention I will be available and we'll continue to follow patient Once everything resolved we will reconsider the amputation issue 09/11/17 Hemoglobin again down to 6.9 g/dL as a result of GI bleeding Completely agree with medicine and gastroenterology approach and plan No clear site of bleeding and identified and this is often a problem in patients who have multiple pathologies, all of which could be attributing to the bleeding process including diverticular disease AVM malformations and such Most of these bleeds will see his on the round and only about 10-15% of patients will require actual surgery for the same. Precise identification of the bleeding site being the right or the left colon is imperative should patient require surgery for continuous bleeding, for knowing in their and having to do subtotal colectomy on this lady would double the mortality as opposed only removing the right or the left colon. Sometimes however we cannot identify the bleeding site and then subtotal colectomy remains the only option. Will continue follow patient which you and if patient require surgery I will be available to preform it. As far as the leg is concerned, amputation is now a secondary issue and will not be undertaken until the above issues are resolved and treated satisfactorily. 09/12/17 Patient currently stabilized from GI bleeding Hemoglobin is now stable Angiogram is negative for bleeding but that the requires at least the bleeding of 3 cc/minute to show up On the other hand no clear scan does reveal bleeding which in this case looks like transverse colon Majority of these bleeds will stop on the round with good supportive therapy and patient doesn't need further interventions On the other hand if the patient gets up to 6-8 units of blood transfusions than the risk of surgery is by far exceeded by the risk of repeated transfusions and then surgery is indicated We'll see how patient does and recommend as we go along Discussed with Dr Mi 09/13/17 Patient with diverticulosis and the likely transverse to left colon bleed Agree with Dr. Mi as to the site of bleeding Abdomen is soft active bowel sounds the patient appears to be stable She dropped her hemoglobin bit yesterday he received 1 more units of blood and now it's up again Patient is now 5 units PRBC later and the another unit or 2 and then we'll have to take patient to the operating room for extended left colectomy if this doesn't stop because then the risk of bleeding and problems with transfusion exceeds the risk of surgery We'll see the patient does through the weekend but she is close to needing surgery at this time 09/14/17 Patient doing okay now Abdomen is soft active bowel sounds Hemoglobin appears to be relatively stable between 9 and 8 g/dL and holding. As noted above patient has received 5 units of PRBCs up to now and once we get to point of 67 or 8 units and patient continues to lose blood, then the risk of surgery is less than the risk of repeated transfusions and at that point patient would need left colectomy. Discussed with Dr. Mi and we agree on being very conservative in this situation and doing everything to avoid surgery in this lady. Will continue to follow 09/15/17 Patient had some bleeding last night and hemoglobin was repeated to come back at 10 g/dL This was clearly old blood yet this morning hemoglobin is 8.1 g/dL some believe that former number was probably incorrect last night Patient doesn't appear to have active bleeding If she requires more blood and starts bleeding again should definitely go to the operating room from extended left colectomy At this point would advance to the diet and allow patient to eat and see how she does There is a high likelihood that patient will require left colon resection which of course is a procedure associated with some degree morbidity in this elderly lady. 09/16/17 Patient doing well at this time Abdomen soft active bowel sounds tolerates diet No more fresh or maroon blood per rectum Hemoglobin remains relatively stable between 7.5 and 8 g/dL Continue observation if patient drops hemoglobin 1 more time and starts bleeding she'll be going to the operating room for extended left colectomy 09/17/2017 Patient still passing clots some of the same I liquid blood and some more formed some maroon than some fresh At this point case discussed at length with medical attending and decision is made that this patient eventually clearly need surgery. I have discussed this with patient at length and she is reluctant to have surgery if she needs a colostomy, which is very unlikely but not completely excluded Patient will be cleaned out with GoLYTELY prep and is scheduled tomorrow for extended left colectomy with primary anastomosis 09/19/2017 Patient is status post extended left colectomy with low anterior anastomosis yesterday Incision clean and dry and abdomen is soft with few bowel sounds Of course no gas yet keep n.p.o. but for medications Patient can be out of bed with a binder Continue current care Patient can transfer to floor from my point any time 09/20/2017 Patient is still in ICU but as above noted yesterday from surgical point patient can transfer to floor anytime Perhaps there were no beds available Patient is doing well Abdomen is soft hypoactive bowel sounds incision is clean and dry Patient should get aggressive physical therapy to prevent her from being bedridden in the future We will advance to full liquids and from there as tolerated to diet It should be noted that this patient will still require below-knee amputation as she was originally the consult for the same However I do not want to put 2 surgeries to close together and I would allow patient to recover from this first Next surgery should probably not be done before middle or end of next week 09/21/2017 Patient doing well at this time Abdomen is soft with hypoactive bowel sounds incision is clean and dry Tolerates full liquids I would probably wait for another day or so before advancing diet further considering her frail state and degree of ileus This patient has low anterior resection and therefore should absolutely not receive any medication per rectum suppositories, enemas and such because this could disrupt the anastomosis. Any rectal manipulations or medications are absolutely contraindicated! Recommend Patient should probably get 1 unit of blood with next dialysis but there is no reason to keep the hemoglobin around 7 despite the fact that she is not bleeding anymore In addition patient sugar seems to be however around 50 and 70 and in face of decreased p.o. intake would be advisable to decrease the insulin administration until patient is back on full diet. I wrote her have patient hyperglycemic for a day or 2 then severely hypoglycemic even once which can be fatal For below-knee amputation next week 09/22/2017 Incision is clean and dry Abdomen is soft and nondistended Apparently patient vomited this morning. Patient has more than one reason to have prolonged ileus including renal failure, age bedridden status while in addition to surgery and narcotics administration Patient is awake but somewhat somnolent She truly needs to be more out of bed because whenever I come to visit the patient is laying in bed She should be aggressively moves around placed in chair and encouraged to deep breathe and move her legs even in the sitting position for otherwise she will have a prolonged ileus and will not do well in the and In addition I encouraged decreasing the dose of narcotics for this elderly lady 09/23/2017 Patient doing well at this time Abdomen soft active bowel sounds Tolerating diet well Hemoglobin stable Other medical nonrelated issues being addressed By the end of the week we will schedule patient for below-knee amputation all things equal 09/24/2017 Abdomen soft Incision clean and dry Active bowel sounds with minimal tenderness Tolerating p.o. diet and having bowel movements Plan for right below-knee amputation Saturday should patient remain stable 09/25/2017 Patient doing well at this time Hemodynamically stable Abdomen soft active bowel sounds in incision clean and dry post left colectomy with low anterior anastomosis In face of the above we will proceed with a right below-knee amputation Saturday and all things equal patient will be able to go to rehab after that 09/26/2017 Patient doing well at this time. New onset a-fib. Patient can go to OR in a-fib, as long as rate controlled. Agree with B- blockers and Ca channel blockers. Will postpone till Saturday to allow for time to stabilize the hemodynamics. We will go ahead with a right below-knee amputation Saturday morning All other things remain unchanged This has been at length discussed with patient at several occasions and she agrees with the surgery 09/29/2017 Status post right below-knee amputation Patient hemodynamically stable Dressing intact and will leave original dressing on until Saturday Nothing to acute care at this time Abdomen soft active bowel sounds Tolerates diet well Patient has delayed healing so melissa should stay in place for at least 2 weeks total which comes to about 10/01/2017 Patient doing well at this time incision is clean and dry Small amount of dark drainage from the abdominal incision this appears to be old blood rather than anything else Patient would of course be high risk candidate for a colocutaneous fistula but there does not appear to be one Dressing changed 10/02/2017 Stump incision is clean and dry dressing changed Abdominal incision is clean and dry I do not see any drainage Abdomen is soft active bowel sounds Will DC melissa on Saturday Objective: Vital Signs Date Time Temp Pulse Resp B/P (MAP) Pulse Ox O2 Delivery O2 Flow Rate FiO2 10/02/17 09:34 92 Nasal Cannula 2.00 10/02/17 08:00 98.9 71 17 137/64 (88) 92 10/02/17 04:00 97.8 73 18 176/81 (112) 95 10/02/17 00:45 99.6 76 18 139/64 (89) 93 10/01/17 20:39 99.6 77 18 159/72 (101) 98 10/01/17 16:00 98.4 74 18 166/81 (109) 99 10/01/17 12:00 99.6 97 18 131/78 (95) 91 Labs: Laboratory Tests Test 10/02/17 08:11 White Blood Count 12.1 TH/MM3 (4.0-11.0) Red Blood Count 2.92 MIL/MM3 (4.00-5.30) Hemoglobin 8.2 GM/DL (11.6-15.3) Hematocrit 25.1 % (35.0-46.0) Mean Corpuscular Volume 85.9 FL (80.0-100.0) Mean Corpuscular Hemoglobin 28.2 PG (27.0-34.0) Mean Corpuscular Hemoglobin Concent 32.9 % (32.0-36.0) Red Cell Distribution Width 17.3 % (11.6-17.2) Platelet Count 426 TH/MM3 (150-450) Mean Platelet Volume 8.6 FL (7.0-11.0) Blood Urea Nitrogen 42 MG/DL (7-18) Creatinine 7.64 MG/DL (0.50-1.00) Random Glucose 61 MG/DL (74-106) Calcium Level 8.4 MG/DL (8.5-10.1) Sodium Level 137 MEQ/L (136-145) Potassium Level 5.0 MEQ/L (3.5-5.1) Chloride Level 99 MEQ/L (98-107) Carbon Dioxide Level 29.6 MEQ/L (21.0-32.0) Anion Gap 8 MEQ/L (5-15) Estimat Glomerular Filtration Rate 6 ML/MIN (>89) Result Diagram: 10/02/1781010/02/17 0811 Amalia De La Cruz MD Oct 02, 2017 11:56
[2017-10-02] MEDS: SEVELAMER CARBONATE 800 MG TAB PO SCH ×2 (12:00→12:32)
[2017-10-02] MEDS: CARVEDILOL 3.125 MG TAB PO SCH (12:32)
[2017-10-02] MEDS: PANTOPRAZOLE SODIUM 40 MG VIAL IV PUSH SCH (12:32)
[2017-10-02 12:36] VITALS: BP 184/111; PULSE 79; RESP 17; TEMP 98.6; O2SAT 94
== END 2017-10-02 13:38 | DRG 239 ==
LOC: HOR 18:55 → NEDA 21:00 → N07B 21:57 → N03B 09-11 15:32 → N03A 09-11 20:07 → N03B 09-11 20:07 → N03A 09-16 17:25 → N07B 09-20 17:46
PROVIDERS: ADMIT Family Medicine; ATTEND Family Medicine
PROC: 0JBQ0ZZ Excision of Right Foot Subcutaneous Tissue and Fascia, Open Approach (ICD-10-PCS; 2017-09-07)
PROC: 5A1D70Z Performance of Urinary Filtration, Intermittent, Less than 6 Hours Per Day (ICD-10-PCS; 2017-09-07)
PROC: 30233N1 Transfusion of Nonautologous Red Blood Cells into Peripheral Vein, Percutaneous Approach (ICD-10-PCS; 2017-09-07)
PROC: 0DJD8ZZ Inspection of Lower Intestinal Tract, Via Natural or Artificial Opening Endoscopic (ICD-10-PCS; 2017-09-11)
PROC: 0DJ08ZZ Inspection of Upper Intestinal Tract, Via Natural or Artificial Opening Endoscopic (ICD-10-PCS; 2017-09-11)
PROC: 0DBN8ZX Excision of Sigmoid Colon, Via Natural or Artificial Opening Endoscopic, Diagnostic (ICD-10-PCS; 2017-09-13)
PROC: 0DBG0ZZ Excision of Left Large Intestine, Open Approach (ICD-10-PCS; 2017-09-18)
PROC: 0DBL0ZZ Excision of Transverse Colon, Open Approach (ICD-10-PCS; 2017-09-18)
PROC: 0Y6H0Z1 Detachment at Right Lower Leg, High, Open Approach (ICD-10-PCS; principal; 2017-09-28 11:39)
DX: E11.52 Type 2 diabetes mellitus with diabetic peripheral angiopathy with gangrene (principal); N18.6 End stage renal disease; I13.2 Hypertensive heart and chronic kidney disease with heart failure and with stage 5 chronic kidney disease, or end stage renal disease; K52.1 Toxic gastroenteritis and colitis; M86.171 Other acute osteomyelitis, right ankle and foot; K57.31 Diverticulosis of large intestine without perforation or abscess with bleeding; E88.89 Other specified metabolic disorders; E11.21 Type 2 diabetes mellitus with diabetic nephropathy; D68.9 Coagulation defect, unspecified; I50.30 Unspecified diastolic (congestive) heart failure; L97.319 Non-pressure chronic ulcer of right ankle with unspecified severity; I07.1 Rheumatic tricuspid insufficiency; I37.1 Nonrheumatic pulmonary valve insufficiency; E11.69 Type 2 diabetes mellitus with other specified complication; E11.22 Type 2 diabetes mellitus with diabetic chronic kidney disease; E11.42 Type 2 diabetes mellitus with diabetic polyneuropathy; E11.621 Type 2 diabetes mellitus with foot ulcer; E11.622 Type 2 diabetes mellitus with other skin ulcer; L08.9 Local infection of the skin and subcutaneous tissue, unspecified; M19.90 Unspecified osteoarthritis, unspecified site; F17.210 Nicotine dependence, cigarettes, uncomplicated; L97.512 Non-pressure chronic ulcer of other part of right foot with fat layer exposed; E03.9 Hypothyroidism, unspecified; K21.9 Gastro-esophageal reflux disease without esophagitis; B19.20 Unspecified viral hepatitis C without hepatic coma; M85.80 Other specified disorders of bone density and structure, unspecified site; I25.10 Atherosclerotic heart disease of native coronary artery without angina pectoris; J44.9 Chronic obstructive pulmonary disease, unspecified; T36.95XA Adverse effect of unspecified systemic antibiotic, initial encounter; N85.8 Other specified noninflammatory disorders of uterus; K64.4 Residual hemorrhoidal skin tags; K64.8 Other hemorrhoids; K63.5 Polyp of colon; Z99.2 Dependence on renal dialysis; Z79.4 Long term (current) use of insulin; Z99.81 Dependence on supplemental oxygen; Z86.14 Personal history of Methicillin resistant Staphylococcus aureus infection; Z91.19 Patient's noncompliance with other medical treatment and regimen; Z89.412 Acquired absence of left great toe; I48.0 Paroxysmal atrial fibrillation; D63.1 Anemia in chronic kidney disease; E61.1 Iron deficiency; E11.649 Type 2 diabetes mellitus with hypoglycemia without coma
CPT/HCPCS: 36245; 36415; 36430; 71045; 73630; 73718; 73721; 75726; 75774; 76937; 78278; 78452; 80048; 80053; 80069; 82805; 82947; 82948; 83540; 83550; 83735; 84100; 84155; 84443; 85007; 85014; 85018; 85025; 85027; 85610; 85652; 85730; 86140; 86850; 86900; 86901; 86920; 87015; 87040; 87070; 87077; 87081; 87102; 87116; 87186; 87205; 87206; 87493; 87641; 88305; 88307; 88311; 90935; 93005; 93017; 93306; 94150; 94640; 94664; 96365; 96366; 96374; 96375; 99152; 99153; A9502; A9560; C1760; C1769; C1887; C1894; C9113; G0269; J0360; J0690; J1580; J1756; J1815; J1940; J2250; J2270; J2370; J2405; J2543; J2785; J3010; J3370; J7030; J7040; J7050; J7070; J7121; P9016; Q4081; Q9967

== ENCOUNTER → 2017-10-14 | Outpatient (CLI) | payer MEDICARE, OTHER ==
[~2017-10-14] MED LIST changes: -BIOM30MI; -BLOOD GLUCOSE M1 KIT; -BLOOD GLUCOSE T1 TES; +CARV3.125 PO; +DEXTROSE 50% IN WATER 50 ML SYRINGE ONE; -INSU1MIS15; -LANCETS1 MI1; -LEVA250T14 PO; +LIDOCAINE HCL 1% PF 5 ML SYRINGE OTHER ONE; +OXYC1TAB35 PO; +PROPOFOL 200 MG/20 ML AMP IV ONE; -WALKER WHEELS/F1 MIS
[2017-10-14 12:33] VITALS: BP 130/65; PULSE 79; RESP 16; TEMP 98
--- NOTE | 2017-10-14 12:34 | GIPROC ---
[facility] [address] [facility]. [facility], [id number] EGD PROCEDURE REPORT EXAM DATE: 10/14/2017 PATIENT NAME: Anel Bolivar MR #: [id number] BIRTHDATE: 1945 ATTENDING: Madeleine Delaney MD ORDER #: [id number] SECURITY ASSOCIATE: Alvarez Zhang and Cortney Almaguer STATUS: outpatient INDICATIONS: The patient is a 72 yr old female here for an EGD due to anemia PROCEDURE PERFORMED: EGD, diagnostic MEDICATIONS: None and Per Anesthesia. TOPICAL ANESTHETIC: none CONSENT: The patient understands the risks and benefits of the procedure and understands that these risks include, but are not limited to: sedation, allergic reaction, infection, perforation and/or bleeding. Alternative means of evaluation and treatment include, among others: physical exam, x-rays, and/or surgical intervention. The patient elects to proceed with this endoscopic procedure. medical equipment was checked for proper function. Hand hygiene and appropriate measures for infection prevention was taken. After the risks, benefits and alternatives of the procedure were thoroughly explained, Informed consent was verified, confirmed and timeout was successfully executed by the treatment team. The patient was anesthetized with topical anesthesia and the EC-[id number] (Pedi C) endoscope was introduced through the mouth and advanced to the second portion of the duodenum. Retroflexed views revealed Limited by food content The gastroscope was then slowly withdrawn and removed. ESOPHAGUS: The mucosa of the esophagus appeared normal. STOMACH: There was a large amount of residual food seen in the entire examined stomach. Due to the residual food, complete mucosal examination could not be performed. Based on this, I suspect the patient has some level of gastroparesis. DUODENUM: The duodenal mucosa appeared normal in the bulb and second portion of the duodenum. ADVERSE EVENTS: There were no complications. IMPRESSIONS: 1. The esophagus appeared normal 2. Food residue in the entire examined stomach 3. Normal duodenal mucosa in the bulb and second portion of the duodenum 4. Retroflexed views revealed Limited by food content RECOMMENDATIONS: Gastric emptying study as outpatient PATIENT CONDITION: stable DISPOSITION: Observation REPEAT EXAM: NONE Madeleine Delaney MD eSigned: Madeleine Delaney MD 10/14/2017 12:34 PM cc:
--- NOTE | 2017-10-14 12:41 | GIPROC ---
[facility] [address] [facility]. [facility], [address] COLONOSCOPY PROCEDURE REPORT EXAM DATE: 10/14/2017 PATIENT NAME: Anel Bolivar MR #: [id number] BIRTHDATE: 1945 ENDOSCOPIST: Madeleine Delaney MD ORDER #: [id number] OWNER: Avlarez Zhang and Cortney Almaguer STATUS: outpatient INDICATIONS: The patient is a 72 yr old female here for a colonoscopy due to anemia, non-specific PROCEDURE PERFORMED: Colonoscopy with biopsy MEDICATIONS: None and Per Anesthesia. PREP QUALITY: poor PREP TYPE:GoLytely ESTIMATED BLOOD LOSS: None CONSENT: The patient understands the risks and benefits of the procedure and understands that these risks include, but are not limited to: sedation, allergic reaction, infection, perforation and/or bleeding. Alternative means of evaluation and treatment include, among others: physical exam, x-rays, and/or surgical intervention. The patient elects to proceed with this endoscopic procedure. medical equipment was checked for proper function. Hand hygiene and appropriate measures for infection prevention was taken. After the risks, benefits and alternatives of the procedure were thoroughly explained, Informed consent was verified, confirmed and timeout was successfully executed by the treatment team. A digital exam revealed no abnormalities of the rectum The Pentax EC-[id number] endoscope was introduced through the anus and advanced to the cecum, which was identified by both the appendix and ileocecal valve. The instrument was then slowly withdrawn as the colon was fully examined. COLON FINDINGS: There was evidence of a prior end-to-end colo-colonic surgical anastomosis in the sigmoid colon. A medium sized non-bleeding non-bleeding, irregular shaped and clean-based ulcer was found. Biopsies were taken at edge of the ulcer and at the center of the ulcer. Retroflexion was not performed due to a narrow rectal vault The scope was then completely withdrawn from the patient and the procedure terminated. PROCEDURE WITHDRAWAL TIME:12minutes ADVERSE EVENTS: There were no complications. IMPRESSIONS: 1. There was evidence of a prior colo-colonic surgical anastomosis in the sigmoid colon, 20 cm from anal verge 2. Medium sized non-bleeding ulcer was found at the anastamosis site; biopsies were taken RECOMMENDATIONS: Await biopsy results. Biopsy results will not be ready for 7-10 days. If you don't hear from us in two weeks, call our office for results. RECALL: Colonoscopy, pending biopsy results Madeleine Delaney MD eSigned: Madeleine Delaney MD 10/14/2017 12:40 PM cc:
[2017-10-14 13:01] VITALS: O2SAT 93
== END ==
LOC: HSDC 10:46
PROVIDERS: ATTEND Specialist
DX: D64.9 Anemia, unspecified (principal); K63.3 Ulcer of intestine; K63.89 Other specified diseases of intestine
CPT/HCPCS: 88305

== ENCOUNTER 2017-11-21 16:10 | Emergency (ER) | payer MEDICARE, OTHER ==
[~2017-11-21] VITALS: Ht 165.1 cm; Wt 70.0 kg
[~2017-11-21 16:10] MED LIST changes: +CARV12.5 PO; -CARV3.125 PO; -DEXTROSE 50% IN WATER 50 ML SYRINGE ONE; -LANTINJ SQ; -LEVO75TA3 PO; -LIDOCAINE HCL 1% PF 5 ML SYRINGE OTHER ONE; +MIRTA15 PO; -OXYC1TAB35 PO; +OXYC1TAB63 PO; -PROPOFOL 200 MG/20 ML AMP IV ONE; -REME15TA PO; +SYNT88TA PO
[2017-11-21 16:21] VITALS: BP 166/76; PULSE 76; RESP 16; TEMP 98.1; O2SAT 96
--- NOTE | 2017-11-21 19:40 | PD ---
HPI Chief Complaint: Skin Problem Time Seen by Provider: 19:23 Travel History International Travel<30 days: No Contact w/Intl Traveler<30days: No Traveled to known affect area: No History of Present Illness HPI 72-year-old -[place] female status post BKA with Dr. Reaves approximately 2 months ago, presents emergency department for wound check. Patient was recommended to come in to have it checked as there was some drainage from the wound today as it has been healing well previously. Patient states that is opened up when they took her histologic aide off earlier today. Dr. robbins's office was called and they recommended coming here for evaluation. Patient denies significant pain, fever, chills, or other symptoms. Patient has history of MRSA. PFSH Past Medical History Anemia: Yes Arthritis: Yes Asthma: No Blood Disorders: Yes (ANEMIA) Anxiety: No Depression: No Heart Rhythm Problems: No Cancer: No Cardiovascular Problems: Yes High Cholesterol: No Chemotherapy: No Chest Pain: No Congestive Heart Failure: No COPD: No Cerebrovascular Accident: No Diabetes: Yes Patient Takes Glucophage: No Dialysis: Yes (SINCE NOVEMBER 2012, LEFT AVF 2012) Diminished Hearing: No Endocrine: Yes Gastrointestinal Disorders: No GERD: No Glaucoma: No Genitourinary: Yes (HD PATIENT) Headaches: No Hepatitis: No Hiatal Hernia: No Hypertension: Yes Immune Disorder: No Implanted Vascular Access Dvce: Yes Kidney Stones: No Musculoskeletal: Yes Neurologic: Yes Psychiatric: No Reproductive: No Respiratory: No Immunizations Current: Yes Myocardial Infarction: No Radiation Therapy: No Renal Failure: Yes Seizures: Yes Sickle Cell Disease: No Sleep Apnea: No Thyroid Disease: Yes Ulcer: No Menopausal: Yes Past Surgical History Abdominal Surgery: No AICD: No Arteriovenous Shunt: Yes (left FA) Body Medical Devices: LEFT AVF Cardiac Surgery: No Ear Surgery: No Endocrine Surgery: No Eye Surgery: No Genitourinary Surgery: No Gynecologic Surgery: No Hysterectomy: Yes (PARTICIAL ) Neurologic Surgery: No Oral Surgery: No Pacemaker: No Thoracic Surgery: No Other Surgery: Yes (right BKA) Social History Alcohol Use: No Tobacco Use: Yes Substance Use: No Allergies-Medications (Allergen,Severity, Reaction): Coded Allergies: *MDRO Multi-Drug Resistant Organism (Verified Allergy, Unknown, 11/21/17) MRSA Reported Meds & Prescriptions Reported Meds & Active Scripts Active Synthroid (Levothyroxine Sodium) 88 Mcg Tab 88 Mcg PO DAILY@0600 Pantoprazole (Pantoprazole Sodium) 40 Mg Tab 40 Mg PO Q12HR Mirtazapine 15 Mg Tab 30 Mg PO HS Oxycodone-Acetaminophen 5-325 (Oxycodone HCl/Acetaminophen) 5 Mg-325 Mg Tablet 1 Tab PO Q6H PRN Coreg (Carvedilol) 12.5 Mg Tab 12.5 Mg PO Q12HR Nephro-Jammie Rx (Vitamin B Cmplx/Vit C/Folic AC) 1 Tab 1 Tab PO DAILY Aspir-81 (Aspirin) 81 Mg Tabdr 81 Mg PO DAILY Amlodipine (Amlodipine Besylate) 10 Mg Tab 10 Mg PO DAILY Proair Hfa 8.5 GM Inh (Albuterol Sulfate) 90 Mcg/Act Aer 2 Puff INH Q4-6H PRN 108 mcg/actuation Hydroxyzine HCl 25 Mg Tab 25 Mg PO HS Glucocom Test Strips (Blood Glucose Test Strips) 1 Val Val Ea DIRECTED Check blood sugars 3 or more times/day: fasting in the morning and 2 hr after eating. Review of Systems Except as stated in HPI: all other systems reviewed are Neg General / Constitutional: No: Fever Eyes: No: Visual changes HENT: No: Headaches Cardiovascular: No: Chest Pain or Discomfort Respiratory: No: Shortness of Breath Gastrointestinal: No: Abdominal Pain Genitourinary: No: Dysuria Musculoskeletal: No: Pain Skin: No Rash Neurologic: No: Weakness Psychiatric: No: Depression Endocrine: No: Polydipsia Hematologic/Lymphatic: No: Easy Bruising Physical Exam Narrative GENERAL: Patient appears in no acute distress per SKIN: Warm and dry. Atrophic. Normal color. Normal turgor. Wound is examined and shown to have granulation tissue along a small area of wound dehiscence measuring approximately 1 inch in length. There is no significant erythema, drainage, or other signs of infection. Dressing is reapplied. HEAD: Atraumatic. Normocephalic. EYES: Pupils equal and round. No scleral icterus. No injection or drainage. ENT: No nasal bleeding or discharge. Mucous membranes pink and moist. Pharynx is clear NECK: Trachea midline. Supple nontender CARDIOVASCULAR: Regular rate and rhythm. RESPIRATORY: No accessory muscle use. Clear to auscultation. Breath sounds equal bilaterally. MUSCULOSKELETAL: Extremities without clubbing, cyanosis, or edema. No obvious deformities. Patient has BKA on the right. NEUROLOGICAL: Awake and alert. No obvious cranial nerve deficits. Motor grossly within normal limits. Five out of 5 muscle strength in the arms and legs. Normal speech. PSYCHIATRIC: Appropriate mood and affect; insight and judgment normal. Data Data Last Documented VS Vital Signs Date Time Temp Pulse Resp B/P (MAP) Pulse Ox O2 Delivery O2 Flow Rate FiO2 11/21/17 16:21 98.1 76 16 166/76 (106) 96 Orders Orders Ed Discharge Order (11/21/17 19:40) MDM Medical Decision Making Medical Screen Exam Complete: Yes Emergency Medical Condition: Yes Differential Diagnosis Patient on dialysis, with history of osteomyelitis to the right lower extremity. Status post BKA. Wound dehiscence. Cellulitis. Narrative Course Call was placed to Dr. Reaves and patient was discussed. Wound culture was taken, but patient is not placed on antibiotics as it is not felt necessary based on my history and physical. Pressure dressing is placed on the lower extremity of the right to support the wound. Patient is to call Dr. Reaves's office for further follow-up Diagnosis Primary Impression: Encounter for postoperative wound check Additional Impression: Status post below knee amputation of right lower extremity Patient Instructions: General Instructions Additional Instructions: Wound culture was taken, but patient is not placed on antibiotics as it is not felt necessary based on my history and physical. Pressure dressing is placed on the lower extremity of the right to support the wound. Patient is to call Dr. Reaves's office for further follow-up Med/Other Pt SpecificInfo: No Change to Meds Disposition: 01 DISCHARGE HOME Condition: Stable Irvin Cm Nov 21, 2017 19:40
== END 2017-11-21 20:06 | disposition home or self-care (01) ==
LOC: NEPK 16:10
DX: E11.22 Type 2 diabetes mellitus with diabetic chronic kidney disease (principal); I12.0 Hypertensive chronic kidney disease with stage 5 chronic kidney disease or end stage renal disease; N18.6 End stage renal disease; Z48.01 Encounter for change or removal of surgical wound dressing; Z72.0 Tobacco use; Z99.2 Dependence on renal dialysis
CPT/HCPCS: 99281

== ENCOUNTER 2018-01-31 19:00 | Inpatient (IN) | payer MEDICARE, OTHER ==
[~2018-01-31] VITALS: Ht 165.1 cm; Wt 65.3 kg
[2018-01-31 19:48] VITALS: BP 176/74; PULSE 86; RESP 16; TEMP 99.1; O2SAT 95
[2018-01-31 20:51] VITALS: BP 130/64; PULSE 101; RESP 16; O2SAT 91
--- NOTE | 2018-01-31 21:21 | PD ---
HPI Chief Complaint: Abnormal Results Time Seen by Provider: 20:52 Travel History International Travel<30 days: No Contact w/Intl Traveler<30days: No Traveled to known affect area: No History of Present Illness HPI 72-year-old female that presents to the ED for evaluation of abnormal labs. Per patient she had her routine dialysis today and apparently when she got home she got a call from the nurse from the dialysis center stating that her hemoglobin was low and she might be bleeding so she need to come here. Per patient she has a history of anemia and GI bleeds in the past. She does have a history of per patient having dark stools for some time and per patient bleeding. Per patient she does not have any symptoms. Per patient she has had transfusions in the past. She denies any chest pain or shortness of breath. No other medical issues at this time. She gets dialysis Wednesdays and Fridays. Has a history of diabetes and high blood pressure and cholesterol. PFSH Past Medical History Anemia: Yes Arthritis: Yes Asthma: No Blood Disorders: Yes (ANEMIA) Anxiety: No Depression: No Heart Rhythm Problems: No Cancer: No Cardiovascular Problems: Yes High Cholesterol: No Chemotherapy: No Chest Pain: No Congestive Heart Failure: No COPD: No Cerebrovascular Accident: No Diabetes: Yes Patient Takes Glucophage: No Dialysis: Yes (SINCE NOVEMBER 2012, LEFT AVF 2012) Diminished Hearing: No Endocrine: Yes Gastrointestinal Disorders: No GERD: No Glaucoma: No Genitourinary: Yes (HD PATIENT) Headaches: No Hepatitis: No Hiatal Hernia: No Hypertension: Yes Immune Disorder: No Implanted Vascular Access Dvce: Yes Kidney Stones: No Musculoskeletal: Yes Neurologic: Yes Psychiatric: No Reproductive: No Respiratory: No Immunizations Current: Yes Myocardial Infarction: No Radiation Therapy: No Renal Failure: Yes Seizures: Yes Sickle Cell Disease: No Sleep Apnea: No Thyroid Disease: Yes Ulcer: No Menopausal: Yes Past Surgical History Abdominal Surgery: No AICD: No Arteriovenous Shunt: Yes (left FA) Body Medical Devices: LEFT AVF Cardiac Surgery: No Ear Surgery: No Endocrine Surgery: No Eye Surgery: No Genitourinary Surgery: No Gynecologic Surgery: No Hysterectomy: Yes (PARTICIAL ) Neurologic Surgery: No Oral Surgery: No Pacemaker: No Thoracic Surgery: No Other Surgery: Yes (right BKA) Social History Alcohol Use: No Tobacco Use: No Substance Use: No Allergies-Medications (Allergen,Severity, Reaction): Coded Allergies: *MDRO Multi-Drug Resistant Organism (Verified Allergy, Unknown, 01/31/18) MRSA Reported Meds & Prescriptions Reported Meds & Active Scripts Active Synthroid (Levothyroxine Sodium) 88 Mcg Tab 88 Mcg PO DAILY@0600 Pantoprazole (Pantoprazole Sodium) 40 Mg Tab 40 Mg PO Q12HR Mirtazapine 15 Mg Tab 30 Mg PO HS Oxycodone-Acetaminophen 5-325 (Oxycodone HCl/Acetaminophen) 5 Mg-325 Mg Tablet 1 Tab PO Q6H PRN Coreg (Carvedilol) 12.5 Mg Tab 12.5 Mg PO Q12HR Nephro-Jammie Rx (Vitamin B Cmplx/Vit C/Folic AC) 1 Tab 1 Tab PO DAILY Aspir-81 (Aspirin) 81 Mg Tabdr 81 Mg PO DAILY Amlodipine (Amlodipine Besylate) 10 Mg Tab 10 Mg PO DAILY Proair Hfa 8.5 GM Inh (Albuterol Sulfate) 90 Mcg/Act Aer 2 Puff INH Q4-6H PRN 108 mcg/actuation Hydroxyzine HCl 25 Mg Tab 25 Mg PO HS Glucocom Test Strips (Blood Glucose Test Strips) 1 Val Val Ea DIRECTED Check blood sugars 3 or more times/day: fasting in the morning and 2 hr after eating. Review of Systems Except as stated in HPI: all other systems reviewed are Neg Physical Exam Narrative GENERAL: SKIN: Warm and dry. HEAD: Atraumatic. Normocephalic. EYES: Pupils equal and round. No scleral icterus. No injection or drainage. ENT: No nasal bleeding or discharge. Mucous membranes pink and moist. Tongue is midline. No uvula deviation. NECK: Trachea midline. No JVD. CARDIOVASCULAR: Regular rate and rhythm. No murmurs, S3, S4. RESPIRATORY: No accessory muscle use. Clear to auscultation. Breath sounds equal bilaterally. GASTROINTESTINAL: Abdomen soft, non-tender, nondistended. Hepatic and splenic margins not palpable. MUSCULOSKELETAL: Extremities without clubbing, cyanosis, or edema. No obvious deformities. Full range of motion of the upper and lower extremities bilaterally. 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 2+ pulses bilaterally. NEUROLOGICAL: Awake and alert. No obvious cranial nerve deficits. Motor grossly within normal limits. Five out of 5 muscle strength in the arms and legs. Normal speech. PSYCHIATRIC: Appropriate mood and affect; insight and judgment normal. Data Data Last Documented VS Vital Signs Date Time Temp Pulse Resp B/P (MAP) Pulse Ox O2 Delivery O2 Flow Rate FiO2 01/31/18 20:51 101 16 130/64 (86) 91 Nasal Cannula 2.00 01/31/18 19:48 99.1 Orders Orders Complete Blood Count With Diff (01/31/18 21:01) Basic Metabolic Panel (Bmp) (01/31/18 21:01) Prothrombin Time / Inr (Pt) (01/31/18 21:01) Act Partial Throm Time (Ptt) (01/31/18 21:01) Magnesium (Mg) (01/31/18 21:) Type And Screen (01/31/18 21:) Red Blood Cells (Rbc) (01/31/18 22:29) Blood Product Administration (01/31/18 22:29) Sodium Chlor 0.9% 250 Ml Inj (Ns 250 Ml (01/31/18 22:30) Labs Laboratory Tests Test 01/31/18 21:42 White Blood Count 7.9 TH/MM3 Red Blood Count 2.74 MIL/MM3 Hemoglobin 6.9 GM/DL Hematocrit 23.4 % Mean Corpuscular Volume 85.4 FL Mean Corpuscular Hemoglobin 25.1 PG Mean Corpuscular Hemoglobin Concent 29.4 % Red Cell Distribution Width 22.2 % Platelet Count 423 TH/MM3 Mean Platelet Volume 9.8 FL Neutrophils (%) (Auto) 57.8 % Lymphocytes (%) (Auto) 18.2 % Monocytes (%) (Auto) 12.2 % Eosinophils (%) (Auto) 11.1 % Basophils (%) (Auto) 0.7 % Neutrophils # (Auto) 4.6 TH/MM3 Lymphocytes # (Auto) 1.4 TH/MM3 Monocytes # (Auto) 1.0 TH/MM3 Eosinophils # (Auto) 0.9 TH/MM3 Basophils # (Auto) 0.1 TH/MM3 CBC Comment AUTO DIFF Prothrombin Time 10.9 SEC Prothromb Time International Ratio 1.1 RATIO Activated Partial Thromboplast Time 22.6 SEC MDM Medical Decision Making Medical Screen Exam Complete: Yes Emergency Medical Condition: Yes Medical Record Reviewed: Yes Interpretation(s) CBC Diagram 01/31/18 21:42 Differential Diagnosis Anemia versus GI bleed versus symptomatic anemia Narrative Course 72-year-old female that presents to the ED for evaluation of anemia. Patient was properly examined and was found to have signs and symptoms consistent appears to be likely anemia. Per patient she is having some black stools and blood. Labs showed low hemoglobin. Labs still pending at the writing of this note. Patient will not let me do a rectal on her. BMP still pending. Case will be signed out to my attending pending likely admission as she might need dialysis to help with blood transfusion. Prem Candelario Jan 31, 2018 21:21
[2018-01-31 22:11] LABS: AUTOMATED NEUTROPHIL # 4.6 TH/MM3 (1.8-7.7); BASOPHIL # 0.1 TH/MM3 (0-0.2); BASOPHIL % 0.7 % (0.0-2.0); EOSINOPHIL # 0.9 TH/MM3 (0-0.4); EOSINOPHIL % 11.1 % (0.0-4.0); HEMATOCRIT 23.4 % (35.0-46.0); LYMPH % 18.2 % (9.0-44.0); LYMPHOCYTE # 1.4 TH/MM3 (1.0-4.8); MEAN CELL VOLUME 85.4 FL (80.0-100.0); MEAN CORPUSCULAR HEMOGLOBIN 25.1 PG (27.0-34.0); MEAN PLATELET VOLUME 9.8 FL (7.0-11.0); MONO % 12.2 % (0.0-8.0); NEUT % 57.8 % (16.0-70.0); PLATELET COUNT 423 TH/MM3 (150-450); RED BLOOD COUNT 2.74 MIL/MM3 (4.00-5.30); RED CELL DISTRIBUTION WIDTH 22.2 % (11.6-17.2); WHITE BLOOD COUNT 7.9 TH/MM3 (4.0-11.0)
[2018-01-31 22:26] LABS: MEAN CORPUSCULAR HGB CONC 29.4 % (32.0-36.0)
[2018-01-31 22:29] LABS: HEMOGLOBIN 6.9 GM/DL (11.6-15.3)
[2018-01-31] MEDS ORDERED: SODIUM CHLOR 0.9% 250 ML INJ 250 ML IV ONE (22:30)
[2018-01-31 22:39] LABS: INTERNATIONAL NORMALIZED RATIO 1.1 RATIO; PROTHROMBIN TIME - PATIENT 10.9 SEC (9.8-11.6)
[2018-01-31 23:13] LABS: CALCIUM 8.1 MG/DL (8.5-10.1); CREATININE 4.68 MG/DL (0.50-1.00); MAGNESIUM 2.2 MG/DL (1.5-2.5)
[2018-02-01] VITALS (16 sets, daily range): BP systolic 113–171; BP diastolic 55–79; PULSE 64–80; RESP 12–21; TEMP 97.9–99; O2SAT 91–100
[2018-02-01] MEDS ORDERED: PANTOPRAZOLE SODIUM 40 MG VIAL IV PUSH ONE (00:15)
--- NOTE | 2018-02-01 00:35 | HHI.HP ---
HPI Service Family Medicine Primary Care Physician Charu Akbar MD Admission Diagnosis anemia, gi bleed, dialysis patient Diagnoses: International Travel<30 Days: No Contact w/Intl Traveler<30days: No Known Affected Area: No History of Present Illness Patient is a 72-year-old female with significant past medical history of prior GI bleed, ESRD (on dialysis MWF), DM and HTN who was advised to go to the ED by dialysis nurse due to low hemoglobin of 6.9 on recent lab results. Patient reports that she is usually feels fatigued after dialysis. However, she denies any symptoms such as dizziness, lightheadedness, chest pain, SOB or palpitations. Patient stated she noticed a small amount of blood in her stool on Saturday however that resolved within the day. Denies any fever, chills, or N/ V. Of note: Patient has complicated history of GI bleed in July 2017 and Aug/sep 2017 requiring a total transfusion of 11 units of packed red blood cells during those hospitalization and resection of colon for bleeding in transverse colon. s/p left colectomy and low anterior anastomosis by Dr. De La Cruz on 09/18/17. She follows with Dr. De La Cruz and saw him 1 month ago. Review of Systems Constitutional: COMPLAINS OF: Fatigue, DENIES: Fever, Weight loss, Chills, Dizziness, Change in appetite Eyes: DENIES: Vision loss Respiratory: DENIES: Cough, Shortness of breath Cardiovascular: DENIES: Chest pain, Palpitations, Syncope Gastrointestinal: COMPLAINS OF: Abdominal pain (LUQ abdominal pain), Bloody stools (last wk saturday and then stopped), Diarrhea (chronic), DENIES: Nausea, Vomiting Genitourinary: DENIES: Dysuria Musculoskeletal: DENIES: Joint pain, Muscle aches Integumentary: DENIES: Rash Hematologic/lymphatic: DENIES: Bruising Neurologic: COMPLAINS OF: Paresthesias (right arm), DENIES: Headache, Localized weakness Psychiatric: DENIES: Confusion Past Family Social History Past Medical History - ESRD (on dialysis MWF since 11/2012) - HTN - DM - Hypothyroidism - 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 Holly (Ophthalmology, [facility]) - Dr. Lindquist (GI doctor) - Dr. Buchanan (Nephrology) - Dr. Akbar (Cardiology) - Dr. Fatih (sp?, Surgeon vs Game Engineer) - Dr. De La Cruz Past Surgical History - Left hallux amputation - Right foot abscess I&D -Below the knee amputation of right lower extremity Allergies: Coded Allergies: *MDRO Multi-Drug Resistant Organism (Verified Allergy, Unknown, 01/31/18) MRSA Active Ordered Medications Reported Meds & Active Scripts Active Synthroid (Levothyroxine Sodium) 88 Mcg Tab 88 Mcg PO DAILY@0600 Pantoprazole (Pantoprazole Sodium) 40 Mg Tab 40 Mg PO Q12HR Mirtazapine 15 Mg Tab 30 Mg PO HS Oxycodone-Acetaminophen 5-325 (Oxycodone HCl/Acetaminophen) 5 Mg-325 Mg Tablet 1 Tab PO Q6H PRN Coreg (Carvedilol) 12.5 Mg Tab 12.5 Mg PO Q12HR Nephro-Jammie Rx (Vitamin B Cmplx/Vit C/Folic AC) 1 Tab 1 Tab PO DAILY Aspir-81 (Aspirin) 81 Mg Tabdr 81 Mg PO DAILY Amlodipine (Amlodipine Besylate) 10 Mg Tab 10 Mg PO DAILY Proair Hfa 8.5 GM Inh (Albuterol Sulfate) 90 Mcg/Act Aer 2 Puff INH Q4-6H PRN 108 mcg/actuation Hydroxyzine HCl 25 Mg Tab 25 Mg PO HS Glucocom Test Strips (Blood Glucose Test Strips) 1 Val Val Ea DIRECTED Check blood sugars 3 or more times/day: fasting in the morning and 2 hr after eating. Family History HTN, DM Social History At baseline patient ambulates with the use of a wheelchair due to below the knee amputation of Right leg. Smoking- quit Sep 2017, history of 1 PPD for ~35 yrs Denies alcohol or illicit drug use Physical Exam Vital Signs Vital Signs Date Time Temp Pulse Resp B/P (MAP) Pulse Ox O2 Delivery O2 Flow Rate FiO2 01/31/18 20:51 101 16 130/64 (86) 91 Nasal Cannula 2.00 01/31/18 19:48 99.1 86 16 176/74 (108) 95 Physical Exam GENERAL: This is a well-nourished, well-developed patient, in no apparent distress. SKIN: No rashes, ecchymoses or lesions. Cool and dry. HEAD: Atraumatic. Normocephalic. No temporal or scalp tenderness. EYES: Pupils equal round and mildly reactive to light due to cataracts. Extraocular motions intact. mild scleral icterus. No injection or drainage. ENT: Nose without bleeding, purulent drainage or septal hematoma. Throat without erythema, tonsillar hypertrophy or exudate. Uvula midline. Airway patent. NECK: Trachea midline. No JVD or lymphadenopathy. Supple, nontender, no meningeal signs. CARDIOVASCULAR: Regular rate and rhythm without murmurs, gallops, or rubs. RESPIRATORY: Clear to auscultation. Breath sounds equal bilaterally. No wheezes , rales, or rhonchi. GASTROINTESTINAL: Abdomen soft, tender to palpation of left upper quadrant, nondistended. No hepato-splenomegaly, or palpable masses. No guarding. MUSCULOSKELETAL: Left extremity without clubbing, cyanosis, or edema. No joint tenderness, effusion, or edema noted. No calf tenderness. 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 NEUROLOGICAL: AAOx3. normal speech. Laboratory Laboratory Tests Test 01/31/18 21:42 White Blood Count 7.9 Red Blood Count 2.74 Hemoglobin 6.9 Hematocrit 23.4 Mean Corpuscular Volume 85.4 Mean Corpuscular Hemoglobin 25.1 Mean Corpuscular Hemoglobin Concent 29.4 Red Cell Distribution Width 22.2 Platelet Count 423 Mean Platelet Volume 9.8 Neutrophils (%) (Auto) 57.8 Lymphocytes (%) (Auto) 18.2 Monocytes (%) (Auto) 12.2 Eosinophils (%) (Auto) 11.1 Basophils (%) (Auto) 0.7 Neutrophils # (Auto) 4.6 Lymphocytes # (Auto) 1.4 Monocytes # (Auto) 1.0 Eosinophils # (Auto) 0.9 Basophils # (Auto) 0.1 CBC Comment AUTO DIFF Differential Comment AUTO DIFF CONFIRMED Prothrombin Time 10.9 Prothromb Time International Ratio 1.1 Activated Partial Thromboplast Time 22.6 Blood Urea Nitrogen 39 Creatinine 4.68 Random Glucose 261 Calcium Level 8.1 Magnesium Level 2.2 Sodium Level 140 Potassium Level 4.2 Chloride Level 101 Carbon Dioxide Level 27.0 Anion Gap 12 Estimat Glomerular Filtration Rate 11 Result Diagram: 01/31/18214101/31/182141 Caprini VTE Risk Assessment Caprini VTE Risk Assessment: Mod/High Risk (score >= 2) VTE Pharm Contraindication: High risk for bleeding Caprini Risk Assessment Model Point Value = 1 Point Value = 2 Point Value = 3 Point Value = 5 Age 41-60 Minor surgery BMI > 25 kg/m2 Swollen legs Varicose veins or History of unexplained or recurrent spontaneous Oral contraceptives or hormone replacement Sepsis (< 1 month) Serious lung disease, including pneumonia (< 1 month) Abnormal pulmonary function Acute myocardial infarction Congestive heart failure (< 1 month) History of inflammatory bowel disease Medical patient at bed rest Age 61-74 Arthroscopic surgery Major open surgery (> 45 min) Laparoscopic surgery (> 45 min) Malignancy Confined to bed (> 72 hours) Immobilizing plaster cast Central venous access Age >= 75 History of VTE Family history of VTE Factor V Leiden Prothrombin [id number] Lupus anticoagulant Anticardiolipin antibodies Elevated serum homocysteine Heparin-induced thrombocytopenia Other congenital or acquired thrombophilia Stroke (< 1 month) Elective arthroplasty Hip, pelvis, or leg fracture Acute spinal cord injury (< 1 month) Prophylaxis Regimen Total Risk Factor Score Risk Level Prophylaxis Regimen 0-1 Low Early ambulation 2 Moderate Order ONE of the following: *Sequential Compression Device (SCD) *Heparin 5000 units SQ BID 3-4 Higher Order ONE of the following medications: *Heparin 5000 units SQ TID *Enoxaparin/Lovenox 40 mg SQ daily (WT < 150 kg, CrCl > 30 mL/min) *Enoxaparin/Lovenox 30 mg SQ daily (WT < 150 kg, CrCl > 10-29 mL/min) *Enoxaparin/Lovenox 30 mg SQ BID (WT < 150 kg, CrCl > 30 mL/min) AND/OR *Sequential Compression Device (SCD) 5 or more Highest Order ONE of the following medications: *Heparin 5000 units SQ TID (Preferred with Epidurals) *Enoxaparin/Lovenox 40 mg SQ daily (WT < 150 kg, CrCl > 30 mL/min) *Enoxaparin/Lovenox 30 mg SQ daily (WT < 150 kg, CrCl > 10-29 mL/min) *Enoxaparin/Lovenox 30 mg SQ BID (WT < 150 kg, CrCl > 30 mL/min) AND *Sequential Compression Device (SCD) Assessment and Plan Assessment and Plan Patient is a 72-year-old female with significant past medical history of prior GI bleed, ESRD (on dialysis MWF), DM and HTN presenting with: Code Status Full Code Discussed Condition With Dr. Antoinette Erwin Problem List: (1) GI bleed ICD Codes: K92.2 - Gastrointestinal hemorrhage, unspecified Status: Acute Plan: Patient with asymptomatic anemia found to have hemoglobin of 6.9 a decrease from her baseline of 8. Tender to palpation of LUQ on abdominal exam. In the ED patient was found to have a positive Hemoccult stool sample and was given Protonix 40mg IV1 Patient has complicated history of GI bleed in July 2017 and Aug/sep 2017 requiring transfusion of 7 units of packed red blood cells during at last hospitalization and resection of colon for bleeding in transverse colon. s/p left colectomy and low anterior anastomosis by Dr. De La Cruz on 09/18/17. She follows with Dr. De La Cruz and saw him 1 month ago. EGD on 07/2017: Normal esophagus except for mild to mod Schatzki ring and moderate size hiatal hernia. However, gastric mucosa was unremarkable and within normal limits. IR procedure: Celiac, SMA, and GERARDO angiography to evaluate acute LGIB felt to be arising form transverse colon. Angio shows no source of hemorrhage or abnormal vessel/AVM. No embolization performed. Colonoscopy done in 10/2017 showed: Evidence of prior colorectal colonic surgical anastomosis in the sigmoid colon. Medium sized nonbleeding ulcer found at the anastomosis site biopsies taken showed no significant histopathologic abnormality negative for epithelial polyp. C/w Protonix 40 mg IV BID Follow-up: -cbc and cmp in the am -GI bleeding scan GI and vascular surgery consulted, appreciate recommendations (2) ESRD (end stage renal disease) on dialysis ICD Codes: N18.6 - End stage renal failure on dialysis; Z99.2 - Dependence on renal dialysis Status: Chronic Plan: Hemodialysis schedule: Electrolytes within normal limits Patient does not make any urine Nephrology consulted, appreciate recommendations (3) Hypertension ICD Codes: I10 - Hypertension Status: Chronic Plan: Current BP of 151/70 Continue to monitor vital signs Resume blood pressure medication in the am (4) Diabetes mellitus ICD Codes: E11.9 - Type 2 diabetes mellitus without complications Status: Chronic Plan: Random glucose of 261 on admission Patient NPO insulin held Accu-Cheks to monitor BG Hypoglycemia protocol (5) Hypothyroidism ICD Codes: E03.9 - Hypothyroidism Status: Chronic Plan: C/w levothyroxine 88mcg QD (6) Depression ICD Codes: F32.9 - Depression Status: Chronic Plan: Continue with mirtazapine 30mg HS (7) Insomnia ICD Codes: G47.00 - Insomnia Status: Chronic Plan: Ambien 5 mg as needed (8) Phantom limb pain ICD Codes: G54.6 - Phantom limb syndrome with pain Status: Chronic Plan: Patient is status post [id number] amputation of right lower extremity on 09/28/17. c/w percocet 5mg for pain (9) Nutrition, metabolism, and development symptoms ICD Codes: R63.8 - Other symptoms and signs concerning food and fluid intake Status: Acute Plan: Fluids: Patient with end-stage renal disease but was held, adjust per nephrology recommendations Electrolytes: Replete as needed per nephrology recommendations Nutrition: N.p.o. DVT prophylaxis: Contraindicated GI prophylaxis: Protonix twice daily Physician Certification 2 Midnight Certification Type: Admission for Inpatient Services Order for Inpatient Services The services are ordered in accordance with Medicare regulations or non- Medicare payer requirements, as applicable. In the case of services not specified as inpatient-only, they are appropriately provided as inpatient services in accordance with the 2-midnight benchmark. Estimated LOS (days): 10 days is the estimated time the patient will need to remain in the hospital, assuming treatment plan goals are met and no additional complications. Post-Hospital Plan: Not yet determined Problem Qualifiers (1) GI bleed: Qualified Codes: K92.2 - Gastrointestinal hemorrhage, unspecified Edenilson Hoffman MD, R1 Feb 01, 2018 00:35
[2018-02-01] MEDS ORDERED: ALBUTEROL SULFATE 90 MCG/ACT HFA 8 GM INHALER INH PRN (01:00)
--- NOTE | 2018-02-01 01:04 | PD ---
Physical Exam Narrative GENERAL: 72 y/o female in no apparent distress SKIN: Focused skin assessment warm/dry. HEAD: Atraumatic. Normocephalic. EYES: Pupils equal and round. No scleral icterus. No injection or drainage. ENT: No nasal bleeding or discharge. Mucous membranes pink and moist. NECK: Trachea midline. CARDIOVASCULAR: Regular rate and rhythm. RESPIRATORY: No accessory muscle use. no increased effort MUSCULOSKELETAL: No obvious deformities. No clubbing. No cyanosis NEUROLOGICAL: Awake and alert. moves all extremities. Normal speech. PSYCHIATRIC: Appropriate mood and affect; insight and judgment normal. Data Data Last Documented VS Vital Signs Date Time Temp Pulse Resp B/P (MAP) Pulse Ox O2 Delivery O2 Flow Rate FiO2 01/31/18 20:51 101 16 130/64 (86) 91 Nasal Cannula 2.00 01/31/18 19:48 99.1 Orders Orders Complete Blood Count With Diff (01/31/18 21:01) Basic Metabolic Panel (Bmp) (01/31/18 21:01) Prothrombin Time / Inr (Pt) (01/31/18 21:01) Act Partial Throm Time (Ptt) (01/31/18 21:01) Magnesium (Mg) (01/31/18 21:01) Type And Screen (01/31/18 21:01) Red Blood Cells (Rbc) (01/31/18 22:29) Blood Product Administration (01/31/18 22:29) Sodium Chlor 0.9% 250 Ml Inj (Ns 250 Ml (01/31/18 22:30) Pantoprazole Inj (Protonix Inj) (02/01/18 00:15) Admit Order (Ed Use Only) (02/01/18 00:32) Labs Laboratory Tests Test 01/31/18 21:42 White Blood Count 7.9 TH/MM3 Red Blood Count 2.74 MIL/MM3 Hemoglobin 6.9 GM/DL Hematocrit 23.4 % Mean Corpuscular Volume 85.4 FL Mean Corpuscular Hemoglobin 25.1 PG Mean Corpuscular Hemoglobin Concent 29.4 % Red Cell Distribution Width 22.2 % Platelet Count 423 TH/MM3 Mean Platelet Volume 9.8 FL Neutrophils (%) (Auto) 57.8 % Lymphocytes (%) (Auto) 18.2 % Monocytes (%) (Auto) 12.2 % Eosinophils (%) (Auto) 11.1 % Basophils (%) (Auto) 0.7 % Neutrophils # (Auto) 4.6 TH/MM3 Lymphocytes # (Auto) 1.4 TH/MM3 Monocytes # (Auto) 1.0 TH/MM3 Eosinophils # (Auto) 0.9 TH/MM3 Basophils # (Auto) 0.1 TH/MM3 CBC Comment AUTO DIFF Differential Comment AUTO DIFF CONFIRMED Prothrombin Time 10.9 SEC Prothromb Time International Ratio 1.1 RATIO Activated Partial Thromboplast Time 22.6 SEC Blood Urea Nitrogen 39 MG/DL Creatinine 4.68 MG/DL Random Glucose 261 MG/DL Calcium Level 8.1 MG/DL Magnesium Level 2.2 MG/DL Sodium Level 140 MEQ/L Potassium Level 4.2 MEQ/L Chloride Level 101 MEQ/L Carbon Dioxide Level 27.0 MEQ/L Anion Gap 12 MEQ/L Estimat Glomerular Filtration Rate 11 ML/MIN MDM Supervised Visit with ELIJAH: Yes Interpretation(s) CBC & BMP Diagram 01/31/18 21:42 Calcium Level 8.1 L, Magnesium Level 2.2 Narrative Course I, Dr. morelos, have reviewed the advance practice practitioner's documentation and am in agreement, met with the patient face to face, made the diagnosis, and the medical decision making was done by me. *My assessment and Findings: 72 y/o female presents with abnormal outpatient hemoglobin. She provide a stool to the nurse which was guaiac positive. She was given Protonix. She will need coordination of transfusion with her dialysis doctor. Prior to admission shows Dr. boykin. Patient updated and initially reluctant to stay but then agreed Physician Communication Physician Communication resident team states to admit to dr rich service Diagnosis Primary Impression: GI bleed Qualified Codes: K92.2 - Gastrointestinal hemorrhage, unspecified Additional Impressions: Anemia Qualified Codes: D64.9 - Anemia, unspecified ESRD (end stage renal disease) on dialysis Admitting Information Admitting Physician Requests: Admit Sherron Morelos MD Feb 01, 2018 01:04
[2018-02-01] MEDS ORDERED: LACTULOSE SYRUP 20 GM/30 ML CUP PO PRN (01:15)
[2018-02-01] MEDS ORDERED: NALOXONE HCL 0.4 MG/ML AMP IV PUSH PRN (01:15)
[2018-02-01] MEDS ORDERED: MAGNESIUM HYDROXIDE SUSP 30 ML CUP PO PRN (01:15)
[2018-02-01] MEDS ORDERED: ACETAMINOPHEN 325 MG TAB PO PRN ×2 (01:15→16:30)
[2018-02-01] MEDS ORDERED: SENNOSIDES 8.6 MG TAB PO PRN (01:15)
[2018-02-01] MEDS ORDERED: SODIUM CHLORIDE 0.9% FLUSH 10 ML FLUSH IV FLUSH PRN ×2 (01:15→16:30)
[2018-02-01] MEDS ORDERED: BISACODYL 10 MG SUPP RECTAL PRN (01:15)
[2018-02-01] MEDS ORDERED: GLUCAGON 1 MG/ML VIAL OTHER PRN (01:30)
[2018-02-01] MEDS ORDERED: DEXTROSE 50% IN WATER 50 ML VIAL(D50) IV PUSH PRN (01:30)
--- NOTE | 2018-02-01 01:31 | RADRPT ---
EXAM DATE: 02/01/2018 1:19 AM EDT AGE/SEX: 72 years / Female INDICATIONS: Chest discomfort, irregular heart rate CLINICAL DATA: This is the patient's initial encounter. Patient reports that signs and symptoms have been present for 1 day and indicates a pain score of 0/10. MEDICAL/SURGICAL HISTORY: Diabetes mellitus type I. None. COMPARISON: [facility] [place], CHEST PA & LAT, 10/06/2017. . FINDINGS: PA and lateral views of the chest demonstrate the lungs to be symmetrically aerated without evidence of mass, infiltrate or effusion. The heart size remains mildly enlarged with no evidence of pulmonary edema. Osseous structures are intact. CONCLUSION: Mild cardiomegaly again noted with no evidence of pulmonary edema. Electronically signed by: Merlin Vizcarra MD 02/01/2018 1:29 AM EDT
[2018-02-01] MEDS ORDERED: ZOLPIDEM TARTRATE 5 MG TAB PO PRN (01:45)
[2018-02-01] MEDS: LEVOTHYROXINE SODIUM 88 MCG TAB PO SCH (06:40)
--- NOTE | 2018-02-01 08:31 | PD.CONS ---
HPI History of Present Illness Patient is a 72-year-old female with significant past medical history of prior GI bleed,s/p left colectomy and low anterior anastomosis by Dr. De La Cruz on 09/18, ESRD (on dialysis MWF), DM and HTN who was advised to go to the ED by dialysis nurse due to low hemoglobin of 6.9 on recent lab results. This is a drop from base line 8. Patient noticed dark blood in her stool on Saturday however non since. Refused to answer how much and how many times. Denies any nausea, vomiting, hematemesis, abd pain, dizziness, lightheadedness, or chest pain. Patient has complicated history of GI bleed in July 2017 and sep 2017 requiring blood transfusion and resection of colon for bleeding in transverse colon. s/p left colectomy and low anterior anastomosis by Dr. De La Cruz on 09/18/17. She follows with Dr. De La Cruz and saw him 1 month ago. EGD 10/14/17 --> Normal esophagus. Food residue in the entire examined stomach. Normal duodenum. Retroflex view limited due to food. Colonoscopy 10/14/17 --> Evidence of prior colonic surgical anastomosis in sigmoid colo-colon. Medium sized non-bleeding ulcer at anastomosis site, biopsy showed fibrinopurulent exudate consistent with an ulcer. Patient wasn't very cooperative during the exam, stating wants to be left alone and she is not having another colonoscopy done. 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 De La Cruz on 09/18/17 - EGD/colonoscopy (Hudson Jiang) Coded Allergies: *MDRO Multi-Drug Resistant Organism (Verified Allergy, Unknown, 01/31/18) MRSA Medications Current Medications Medications (Trade) Dose Ordered Sig/Rita Route Start Time Stop Time Status Last Admin Sodium Chloride 250 ml @ 15 mls/hr ONCE ONCE IV 01/31/18 22:30 02/01/18 15:09 (Proair Hfa Inh) 2 puff BID PRN INH 02/01/18 01:00 (Norvasc) 10 mg DAILY PO 02/01/18 09:00 (Coreg) 12.5 mg Q12HR PO 02/01/18 09:00 (Synthroid) 88 mcg DAILY@0600 PO 02/01/18 06:00 02/01/18 06:40 (Remeron) 30 mg HS PO 02/01/18 21:00 (Percocet 5-325 Mg) 1 tab Q6H PRN PO 02/01/18 01:00 (NS Flush) 2 ml UNSCH PRN IV FLUSH 02/01/18 01:15 (NS Flush) 2 ml BID IV FLUSH 02/01/18 09:00 (Tylenol) 650 mg Q4H PRN PO 02/01/18 01:15 (Narcan Inj) 0.4 mg UNSCH PRN IV PUSH 02/01/18 01:15 (Milk Of Magnesia Liq) 30 ml Q12H PRN PO 02/01/18 01:15 (Senokot) 17.2 mg Q12H PRN PO 02/01/18 01:15 (Protonix Inj) 40 mg Q12H IV PUSH 02/01/18 12:00 (D50w (Vial) Inj) 50 ml UNSCH PRN IV PUSH 02/01/18 01:30 (Glucagon Inj) 1 mg UNSCH PRN OTHER 02/01/18 01:30 (Ambien) 5 mg HS PRN PO 02/01/18 01:45 Family History Non contributory Social History Denies alcohol or illicit drug use Former smoker- quit Sep 2017, history of 1 PPD for ~35 yrs (Hudson Jiang) Review of Systems Constitutional: COMPLAINS OF: Fatigue, DENIES: Chills, Dizziness Eyes: DENIES: Double Vision Ears, nose, mouth, throat: DENIES: Hoarseness Respiratory: DENIES: Shortness of breath Cardiovascular: DENIES: Chest pain Gastrointestinal: COMPLAINS OF: Bloody stools, DENIES: Abdominal pain, Black stools, Constipation, Diarrhea, Nausea, Vomiting, Difficulty Swallowing, Anorexia, Odynophagia, Swelling of Abdomen, Heartburn, Hematemesis Genitourinary: DENIES: Hematuria Musculoskeletal: DENIES: Back pain Integumentary: DENIES: Jaundice Hematologic/lymphatic: DENIES: Bruising Immunologic/allergic: DENIES: Eczema Neurologic: DENIES: Abnormal gait Psychiatric: DENIES: Anxiety (Hudson Jiang SHERI) GI Exam Vitals I&O Vital Signs Date Time Temp Pulse Resp B/P (MAP) Pulse Ox O2 Delivery O2 Flow Rate FiO2 02/01/18 07:22 99.0 72 16 130/59 (82) 91 Room Air 02/01/18 06:38 93 21 02/01/18 06:00 73 16 153/70 (97) 93 Room Air 02/01/18 01:04 80 16 151/70 (97) 96 Room Air 01/31/18 20:51 101 16 130/64 (86) 91 Nasal Cannula 2.00 01/31/18 19:48 99.1 86 16 176/74 (108) 95 Imaging Last Impressions Chest X-Ray 02/01/18 0000 Signed Impressions: CONCLUSION: Mild cardiomegaly again noted with no evidence of pulmonary edema. Laboratory Test 01/31/18 21:42 White Blood Count 7.9 TH/MM3 Red Blood Count 2.74 MIL/MM3 Hemoglobin 6.9 GM/DL Hematocrit 23.4 % Mean Corpuscular Volume 85.4 FL Mean Corpuscular Hemoglobin 25.1 PG Mean Corpuscular Hemoglobin Concent 29.4 % Red Cell Distribution Width 22.2 % Platelet Count 423 TH/MM3 Mean Platelet Volume 9.8 FL Neutrophils (%) (Auto) 57.8 % Lymphocytes (%) (Auto) 18.2 % Monocytes (%) (Auto) 12.2 % Eosinophils (%) (Auto) 11.1 % Basophils (%) (Auto) 0.7 % Neutrophils # (Auto) 4.6 TH/MM3 Lymphocytes # (Auto) 1.4 TH/MM3 Monocytes # (Auto) 1.0 TH/MM3 Eosinophils # (Auto) 0.9 TH/MM3 Basophils # (Auto) 0.1 TH/MM3 CBC Comment AUTO DIFF Differential Comment AUTO DIFF CONFIRMED Prothrombin Time 10.9 SEC Prothromb Time International Ratio 1.1 RATIO Activated Partial Thromboplast Time 22.6 SEC Blood Urea Nitrogen 39 MG/DL Creatinine 4.68 MG/DL Random Glucose 261 MG/DL Calcium Level 8.1 MG/DL Magnesium Level 2.2 MG/DL Sodium Level 140 MEQ/L Potassium Level 4.2 MEQ/L Chloride Level 101 MEQ/L Carbon Dioxide Level 27.0 MEQ/L Anion Gap 12 MEQ/L Estimat Glomerular Filtration Rate 11 ML/MIN Physical Examination HEENT: Pupils round and reactive to light; normocephalic; atraumatic; no jaundice. Throat is clear. CHEST: Chest is clear to auscultation and percussion. CARDIAC: Regular rate and rhythm with no murmur gallop or rubs. ABDOMEN: Soft, nondistended, nontender; no hepatosplenomegaly; bowel sounds are present in all four quadrants. EXTREMITIES:Right BKA RISK CONTROL MANAGER: No focal deficits; alert and oriented times three. (Hudson Jiang) Assessment and Plan Plan - Acute on chronic anemia- Likely multifactorial anemia of chronic dz and GI bleed. hemoglobin of 6.9 on recent lab results. This is a drop from base line 8. Patient noticed dark blood in her stool on Saturday however non since. Refused to answer how much and how many times. Denies any nausea, vomiting, hematemesis, abd pain, dizziness, lightheadedness, or chest pain. Patient has complicated history of GI bleed in July 2017 and Aug/sep 2017 requiring blood transfusion and resection of colon for bleeding in transverse colon. s/p left colectomy and low anterior anastomosis by Dr. De La Cruz on 09/18/17. She follows with Dr. De La Cruz and saw him 1 month ago. EGD 10/14/17 --> Normal esophagus. Food residue in the entire examined stomach. Normal duodenum. Retroflex view limited due to food. Colonoscopy 10/14/17 --> Evidence of prior colonic surgical anastomosis in sigmoid colo-colon. Medium sized non-bleeding ulcer at anastomosis site, biopsy showed fibrinopurulent exudate consistent with an ulcer. Patient wasn't very cooperative during the exam, stating wants to be left alone and she is not having another colonoscopy done. - ESRD (on dialysis MWF), DM and HTN per attending Plans: - Clear liquid diet - Discussed doing EGD/colonoscopy, but Pt is refusing any GI work up, wants to be left alone and wants to go home - Monitor hh - Transfuse 2 units - Notify GI for active bleed - cont. PPI - Pt is seen and examined by Dr. Baugh and myself and this note is written on her behalf. (Hudson Jiang) Physician Comments seen, examined agree with above (Marina Baugh MD) Hudson Jiang Feb 01, 2018 08:31 Marina Baugh MD Feb 01, 2018 20:29
[2018-02-01] MEDS ORDERED: DOCUSATE SODIUM 50 MG/SENNA 8.6 MG TAB PO SCH (09:00)
[2018-02-01 09:16] LABS: AUTOMATED NEUTROPHIL # 3.9 TH/MM3 (1.8-7.7); BASOPHIL # 0.1 TH/MM3 (0-0.2); BASOPHIL % 0.7 % (0.0-2.0); EOSINOPHIL # 0.9 TH/MM3 (0-0.4); EOSINOPHIL % 11.9 % (0.0-4.0); LYMPH % 22.2 % (9.0-44.0); LYMPHOCYTE # 1.7 TH/MM3 (1.0-4.8); MEAN CELL VOLUME 83.5 FL (80.0-100.0); MEAN CORPUSCULAR HEMOGLOBIN 25.7 PG (27.0-34.0); MEAN CORPUSCULAR HGB CONC 30.8 % (32.0-36.0); MEAN PLATELET VOLUME 9.5 FL (7.0-11.0); MONO % 14.4 % (0.0-8.0); MONOCYTE # 1.1 TH/MM3 (0-0.9); NEUT % 50.8 % (16.0-70.0); PLATELET COUNT 314 TH/MM3 (150-450); RED BLOOD COUNT 2.24 MIL/MM3 (4.00-5.30); RED CELL DISTRIBUTION WIDTH 21.8 % (11.6-17.2); WHITE BLOOD COUNT 7.8 TH/MM3 (4.0-11.0)
[2018-02-01 09:29] LABS: HEMATOCRIT 18.7 % (35.0-46.0); HEMOGLOBIN 5.8 GM/DL (11.6-15.3)
[2018-02-01 09:36] LABS: ALBUMIN 2.5 GM/DL (3.4-5.0); AST (GOT) 17 U/L (15-37); BICARBONATE 23.5 MEQ/L (21.0-32.0); BLOOD UREA NITROGEN 50 MG/DL (7-18); CHLORIDE 103 MEQ/L (98-107); CREATININE 5.75 MG/DL (0.50-1.00); GLOMERULAR FILTRATION RATE 9 ML/MIN (>89); GLUCOSE,RANDOM 112 MG/DL (74-106); SODIUM (NA) 139 MEQ/L (136-145)
[2018-02-01] MEDS ORDERED: SODIUM CHLOR 0.9% 250 ML INJ 250 ML IV ONE (10:00)
[2018-02-01 10:24] LABS: ALKALINE PHOSPHATASE 169 U/L (45-117); ALT (GPT) 19 U/L (10-53); TOTAL BILIRUBIN ADULT 0.2 MG/DL (0.2-1.0); TOTAL PROTEIN 6.9 GM/DL (6.4-8.2)
--- NOTE | 2018-02-01 11:29 | RADRPT ---
EXAM DATE: 02/01/2018 11:18 AM EDT AGE/SEX: 72 years / Female INDICATIONS: Blood in stool, History of GI bleeds. CLINICAL DATA: This is the patient's initial encounter. Patient reports that signs and symptoms have been present for 1 day and indicates a pain score of 2/10. MEDICAL/SURGICAL HISTORY: Diabetes mellitus type II. Hyperparathyroidism. Anemic. Hysterectom y. COMPARISON: [facility] – [place] BLEEDING SCAN, 09/11/2017. . TECHNIQUE: Following the modified in vitro labeling of autologous red cells, dynamic continuous image s were acquired for two hours. ?? DOSE: 20.1 mCi Tc 99m Ultratag Labeled Red Blood Cells IV IMAGING TIME: 2 hr FINDINGS: Biodistribution: There is a very good labeling of red cells without significant uptake in the gastri c wall. There is good delineation of the blood pool of the spleen and abdominal vessels. Bleeding: No episodes of active GI bleeding are observed during two hours of continuous observation . CONCLUSION: 1. No active GI bleeding Electronically signed by: Jl Talbert MD 02/01/2018 11:28 AM EDT
[2018-02-01] MEDS: PANTOPRAZOLE SODIUM 40 MG VIAL IV PUSH SCH (12:21)
[2018-02-01] MEDS: SODIUM CHLORIDE 0.9% FLUSH 10 ML FLUSH IV FLUSH SCH ×2 (12:22→21:14)
[2018-02-01] MEDS: CARVEDILOL 12.5 MG TAB PO SCH ×2 (12:22→21:12)
[2018-02-01] MEDS: oxyCODONE/ACETAMINOPHEN 5 MG/325 MG TAB PO PRN ×2 (12:37→21:13)
--- NOTE | 2018-02-01 13:15 | HHI.PR ---
Addendum to Inpatient Note Addendum Reason: Additional Documentation Additional Information Patient admitted after midnight. Patient is resting comfortably in bed. H & H declining this morning, started blood transfusion. GI scan negative for active GI bleed. Nephro and vascular consulted. Patient states that she is hungry and ready to eat. Reports that she still has left sided abdominal pain. No other complaints. Currently on 2L NC. Denies CP, SOB, N/V, fatigue, dizziness, palpitations, and diarrhea. GENERAL: very thin elderly female, in NAD SKIN: No rashes, ecchymoses or lesions. Cool and dry. HEAD: Atraumatic. Normocephalic. No temporal or scalp tenderness. NECK: Trachea midline. No JVD or lymphadenopathy. Supple, nontender, no meningeal signs. CARDIOVASCULAR: Regular rate and rhythm without murmurs, gallops, or rubs. RESPIRATORY: Clear to auscultation. Breath sounds equal bilaterally. No wheezes , rales, or rhonchi. Currently on 2L NC. GASTROINTESTINAL: Abdomen soft, tender to palpation of left upper quadrant, nondistended. No hepato-splenomegaly, or palpable masses. No guarding. MUSCULOSKELETAL: Left extremity without clubbing, cyanosis, or edema. No joint tenderness, effusion, or edema noted. No calf tenderness. 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 NEUROLOGICAL: AAOx3. normal speech. 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 -Hb this AM 5.8, transfuse 2 units of blood -check H&H post transfusion -Patient states that she received dialysis yesterday -Nephrology and GI consulted -GI bleed scan negative for active bleeding -clear liquid diet -patient refusing any GI work up -continue PPI (Dee Dee Viera MD R1) Addendum Reason: Additional Documentation Additional Information Patient seen and examined. Case reviewed and discussed with the resident team. Agree with plan of care as discussed with me and documented in the resident note. agree with the H&P and this note. Ms Bolivar is not eager to do any more workup as she was hospitalized for 6 weeks in the past. she has been scoped more than once. she does not want to remove more of her colon unless it is absolutely necessary. (Teresa Wang MD) Dee Dee Viera MD R1 Feb 01, 2018 13:15 Teresa Wang MD Feb 02, 2018 11:11
[2018-02-01] MEDS ORDERED: SODIUM CHLOR 0.9% 1000 ML INJ 1,000 ML OTHER PRN ×2 (16:17)
[2018-02-01] MEDS ORDERED: SODIUM CHLOR 0.9% 1000 ML INJ 1,000 ML IV PRN (16:17)
[2018-02-01] MEDS ORDERED: cloNIDine HCL 0.1 MG TAB PO PRN (16:30)
[2018-02-01] MEDS ORDERED: HEPARIN SODIUM - IV 10,000 UNITS/10 ML VIAL IV FLUSH PRN ×2 (16:30)
[2018-02-01] MEDS ORDERED: MANNITOL 12.5 GM/50 ML VIAL IV PRN (16:30)
[2018-02-01] MEDS ORDERED: GENTAMICIN SULFATE 20 MG/2 ML VIAL OTHER PRN (16:30)
[2018-02-01] MEDS ORDERED: NITROGLYCERIN 0.4 MG SL 25 TABS/BTL SL PRN (16:30)
[2018-02-01] MEDS ORDERED: diphenhydrAMINE HCL 25 MG CAP PO PRN (16:30)
[2018-02-01] MEDS ORDERED: ALBUMIN 25% INJ 100 ML IV PRN (16:30)
[2018-02-01] MEDS ORDERED: GELATIN 12 MM/7 MM FOAM TOP PRN (16:30)
[2018-02-01] MEDS ORDERED: HEPARIN SODIUM - IV 10,000 UNITS/10 ML VIAL PRN (16:30)
[2018-02-01] MEDS ORDERED: ONDANSETRON ODT 4 MG TAB PO PRN (16:30)
--- NOTE | 2018-02-01 16:36 | MB ---
cc: Chris Buchanan MD DATE: 02/01/2018 REASON FOR CONSULTATION: End-stage renal disease management. HISTORY OF PRESENT ILLNESS: This is a 72-year-old female with history of end-stage renal disease, on hemodialysis Saturday, Saturday and Saturday, followed up as an outpatient with Dr. Greene. The patient was sent here to the hospital after her outpatient labs revealed a drop of hemoglobin from a level of 8 down to a level of 6.9. The patient has extensive history of GI bleed with a previous transverse colectomy for colon bleeding. The patient is followed up with Dr. De La Cruz for this and last saw him approximately 1 month ago. The patient was feeling some fatigue after dialysis; however, had no other acute complaints. She was brought here for admission and she is being transfused blood. She is receiving her second unit of packed red blood cells at this point. The patient was seen earlier with GI service and the patient reported that she did not want to undergo any colonoscopy or endoscopy and wanted to be left alone. She had a bleeding scan earlier today, which showed no evidence of any active bleeding. She has had blood in her stools and apparently has had some bloody stools here. At this time, the patient is resting in bed. She reports some fatigue; however, no other acute issues. She has received her full dialysis on Saturday, which was yesterday. REVIEW OF SYSTEMS: The patient denies any fevers or chills. No nausea, no vomiting, no diarrhea, no constipation, no dysuria. The patient has had some bloody stools. No headaches, no loss of consciousness. Otherwise, review of systems negative. PAST MEDICAL HISTORY: Includes ESRD, on hemodialysis Saturday, Saturday and Saturday, followed up with Dr. Greene. Also, history of hypertension, diabetes, hypothyroidism, diabetic nephropathy, nocturnal hypoxia, on 2 liters oxygen at night, GERD, hepatitis C, cataracts, foot abscess, GI bleeding, depression. PAST SURGICAL HISTORY: Includes left hallux amputation, [id number] amputation of the right lower extremity, left colectomy with low anterior anastomosis with Dr. De La Cruz in 09/2017. EGD and colonoscopy in the past. ALLERGIES: NO DRUG ALLERGIES. FAMILY HISTORY: Noncontributory. SOCIAL HISTORY: No alcohol, tobacco or drug use. The patient was a former smoker and smoked 1 pack a day for 35 years. PHYSICAL EXAMINATION: GENERAL: At time of evaluation, awake, alert, oriented. NECK: Soft, supple. CARDIAC: Regular rate and rhythm. PULMONARY: Clear to auscultation bilaterally. ABDOMEN: Soft, nontender, nondistended. EXTREMITIES: No edema. LABORATORY DATA: White count 7.8, hemoglobin 5.8, hematocrit 18.7 with platelet count of 314. INR 1.1. Sodium 139, potassium 4.2, chloride 103, bicarbonate 23.5, BUN 50, creatinine 5.7 with glucose of 112, albumin 2.5. ASSESSMENT AND PLAN: 1. End-stage renal disease. The patient is on outpatient hemodialysis Saturday, Saturday and Saturday. She is followed up with Dr. Greene as an outpatient. She had a full treatment yesterday. We will do dialysis again on Saturday and continue with Saturday, Saturday, Saturday dialysis while here. 2. Gastrointestinal bleed. The patient presented with anemia here, which was found on outpatient studies. Her hemoglobin has dropped to a level of 5.9 here. She is receiving 2 units of packed red blood cells. The patient had a bleeding scan today, which showed no signs of any active bleeding. However, she has had some blood in her stools. GI service had seen the patient and the patient had refused an esophagogastroduodenoscopy and colonoscopy. She tells me that she did not want to drink any of the bowel prep fluid. I encouraged her to consider for a colonoscopy as per GI recommendations. Continue to follow up with goals of care and follow up with GI service. 3. Hypertension. Blood pressure is stable. Continue with medications. 4. Diabetes. Continue to monitor. Continue with insulin as needed. 5. Hypothyroidism. Continue with thyroid medications. MD JEROD SamuelsP/SB , 04:16 PM , 04:34 PM
[2018-02-01 20:37] LABS: HEMATOCRIT 28.1 % (35.0-46.0)
[2018-02-01] MEDS: MIRTAZAPINE 15 MG TAB PO SCH (21:12)
[2018-02-02] VITALS: BP 127/58; PULSE 67; RESP 22; TEMP 98.1; O2SAT 97
[2018-02-02] MEDS: PANTOPRAZOLE SODIUM 40 MG VIAL IV PUSH SCH ×3 (00:52→23:35)
[2018-02-02 04:00] VITALS: BP 143/64; PULSE 70; RESP 27; TEMP 98; O2SAT 97
[2018-02-02 05:15] LABS: AUTOMATED NEUTROPHIL # 4.6 TH/MM3 (1.8-7.7); BASOPHIL # 0.1 TH/MM3 (0-0.2); BASOPHIL % 0.6 % (0.0-2.0); EOSINOPHIL # 1.1 TH/MM3 (0-0.4); EOSINOPHIL % 12.6 % (0.0-4.0); HEMATOCRIT 25.7 % (35.0-46.0); HEMOGLOBIN 8.4 GM/DL (11.6-15.3); LYMPH % 18.9 % (9.0-44.0); LYMPHOCYTE # 1.6 TH/MM3 (1.0-4.8); MEAN CELL VOLUME 82.4 FL (80.0-100.0); MEAN CORPUSCULAR HGB CONC 32.8 % (32.0-36.0); MEAN PLATELET VOLUME 9.1 FL (7.0-11.0); MONO % 12.9 % (0.0-8.0); MONOCYTE # 1.1 TH/MM3 (0-0.9); PLATELET COUNT 296 TH/MM3 (150-450); RED BLOOD COUNT 3.12 MIL/MM3 (4.00-5.30); RED CELL DISTRIBUTION WIDTH 18.7 % (11.6-17.2); WHITE BLOOD COUNT 8.4 TH/MM3 (4.0-11.0)
[2018-02-02 05:45] LABS: BICARBONATE 22.2 MEQ/L (21.0-32.0); CALCIUM 7.8 MG/DL (8.5-10.1); CREATININE 7.06 MG/DL (0.50-1.00)
[2018-02-02] MEDS: LEVOTHYROXINE SODIUM 88 MCG TAB PO SCH (06:00)
[2018-02-02 08:00] VITALS: BP 166/73; PULSE 72; RESP 20; TEMP 98.2; O2SAT 94
[2018-02-02] MEDS: CARVEDILOL 12.5 MG TAB PO SCH ×2 (08:46→21:08)
[2018-02-02] MEDS: SODIUM CHLORIDE 0.9% FLUSH 10 ML FLUSH IV FLUSH SCH ×2 (08:47→21:08)
--- NOTE | 2018-02-02 08:58 | HHI.FPPN ---
Subjective Remarks No acute events overnight. Patient s/p 2 units of red blood cells. Hb increased to 8.4 Patient resting comfortably in bed. She still states that she has left lower abdominal pain. However she states that is well controlled. Spoke with her about GI workup. Patient has declined at this time. Patient is open to meeting with palliative care about goals of care. Patient will be receiving dialysis tomorrow. She is eating well and requesting a regular diet. She had a bowel movement yesterday morning before she came in. She denies any chest pain, shortness of breath, nausea vomiting, and diarrhea. (Dee Dee Viera MD R1) Objective Vitals Vital Signs Date Time Temp Pulse Resp B/P (MAP) Pulse Ox O2 Delivery O2 Flow Rate FiO2 02/02/18 04:00 98.0 70 27 143/64 (90) 97 02/02/18 00:00 98.1 67 22 127/58 (81) 97 02/01/18 20:45 21 02/01/18 20:17 98.2 70 21 113/55 (74) 95 02/01/18 18:17 98.2 67 16 116/57 100 02/01/18 16:04 99 02/01/18 16:00 98.2 66 12 119/56 (77) 100 02/01/18 15:49 98.4 64 20 119/60 100 02/01/18 15:28 98.2 18 124/57 100 02/01/18 15:10 98.6 67 18 119/56 100 02/01/18 13:48 97.9 69 16 140/63 (88) 100 02/01/18 13:37 18 02/01/18 12:49 98.3 72 19 171/79 98 02/01/18 12:48 98.3 72 19 171/79 (109) 98 02/01/18 12:48 98.3 72 19 171/79 96 02/01/18 12:43 98.6 77 19 154/75 (101) 96 Room Air 02/01/18 12:32 98.6 72 18 154/75 95 I/O 02/01/18 02/01/18 02/01/18 02/02/18 02/02/18 02/02/18 07:00 15:00 23:00 07:00 15:00 23:00 Intake Total 10 ml 800 ml 1200 ml Balance 10 ml 800 ml 1200 ml Intake Oral 1200 ml Packed Cells 800 ml Blood Product IV Normal Saline Flush 10 ml # Bowel Movements 1 2 (Dee Dee Viera MD R1) Result Diagram: 02/02/1844902/02/18449 Objective Remarks GENERAL: very thin elderly female, in NAD SKIN: No rashes, ecchymoses or lesions. Cool and dry. HEAD: Atraumatic. Normocephalic. No temporal or scalp tenderness. NECK: Trachea midline. No JVD or lymphadenopathy. Supple, nontender, no meningeal signs. CARDIOVASCULAR: Regular rate and rhythm without murmurs, gallops, or rubs. RESPIRATORY: Clear to auscultation. Breath sounds equal bilaterally. No wheezes , rales, or rhonchi. Currently on 2L NC. GASTROINTESTINAL: Abdomen soft, mild tenderness to palpation of left upper quadrant, nondistended. No hepato-splenomegaly, or palpable masses. No guarding. MUSCULOSKELETAL: Left extremity without clubbing, cyanosis, or edema. No joint tenderness, effusion, or edema noted. No calf tenderness. 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 NEUROLOGICAL: AAOx3. normal speech. (Dee Dee Viera MD R1) A/P Assessment and Plan Patient is a 72-year-old female with significant past medical history of prior GI bleed, ESRD (on dialysis MWF), DM and HTN presenting with: Discharge Planning Nephrology clearance Awaiting pallative care recommendations Patient declining GI work up (Dee Dee Viera MD R1) Attending Attestation Patient seen and examined. Case reviewed and discussed with the resident team. Agree with plan of care as discussed with me and documented in the resident note. poor Ms Katt is "sick of being sick". she says she doesn't even feel bad as she had painless bleeding. she doesn't want more procedures or surgery unless it was absolutely necessary. on prior discussions, she was so tired of all the medical treatments. she is on dialysis and will not stop that. she just wants to go home. per discussion today, she knows she can have bleeding again but there's no guarantee that she won't bleed even if she has surgery. she always get heparin in dialysis. she doesn't want hospice as she would have to stop dialysis. palliative is appropriate as she has had multiple hospitalizations though she hopefully will be stable and able to go home soon (Teresa Wang MD) Problem List: (1) GI bleed ICD Codes: K92.2 - Gastrointestinal hemorrhage, unspecified Status: Acute Plan: Patient with asymptomatic anemia found to have hemoglobin of 6.9 a decrease from her baseline of 8. Tender to palpation of LUQ on abdominal exam. In the ED patient was found to have a positive Hemoccult stool sample and was given Protonix 40mg IV1 Patient has complicated history of GI bleed in July 2017 and sep 2017 requiring transfusion of 7 units of packed red blood cells during at last hospitalization and resection of colon for bleeding in transverse colon. s/p left colectomy and low anterior anastomosis by Dr. De La Cruz on 09/18/17. She follows with Dr. De La Cruz and saw him 1 month ago. EGD on 07/2017: Normal esophagus except for mild to mod Schatzki ring and moderate size hiatal hernia. However, gastric mucosa was unremarkable and within normal limits. IR procedure: Celiac, SMA, and GERARDO angiography to evaluate acute LGIB felt to be arising form transverse colon. Angio shows no source of hemorrhage or abnormal vessel/AVM. No embolization performed. Colonoscopy done in 10/2017 showed: Evidence of prior colorectal colonic surgical anastomosis in the sigmoid colon. Medium sized nonbleeding ulcer found at the anastomosis site biopsies taken showed no significant histopathologic abnormality negative for epithelial polyp. s/p 2 units of RBC on 02/02/18, Hb increased to 8.4, continue to monitor GI and vascular surgery consulted, appreciate recommendations -GI bleed scan negative for active GI bleeding -Continue Protonix 40 mg IV BID -EGD and colonoscopy suggested, but patient declined. Patient is not wanting to drink any of the bowel prep fluid. (2) ESRD (end stage renal disease) on dialysis ICD Codes: N18.6 - End stage renal failure on dialysis; Z99.2 - Dependence on renal dialysis Status: Chronic Plan: Hemodialysis schedule: Electrolytes within normal limits Patient does not make any urine Nephrology consulted, appreciate recommendations, she received dialysis Saturday -Dialysis is scheduled for tomorrow -Patient to follow-up with Dr. Greene as an outpatient (3) Hypertension ICD Codes: I10 - Hypertension Status: Chronic Plan: Continue to home amlodipine and coreg Clonidine0.1mg PO RPN for BP >180/100 (4) Diabetes mellitus ICD Codes: E11.9 - Type 2 diabetes mellitus without complications Status: Chronic Plan: Blood sugars 167, 100, 173 Patient placed on low SS Hypoglycemia protocol (5) Hypothyroidism ICD Codes: E03.9 - Hypothyroidism Status: Chronic Plan: C/w levothyroxine 88mcg QD (6) Depression ICD Codes: F32.9 - Depression Status: Chronic Plan: Continue with mirtazapine 30mg HS (7) Insomnia ICD Codes: G47.00 - Insomnia Status: Chronic Plan: Ambien 5 mg as needed (8) Phantom limb pain ICD Codes: G54.6 - Phantom limb syndrome with pain Status: Chronic Plan: Patient is status post [id number] amputation of right lower extremity on 09/28/17. c/w percocet 5mg for pain (9) Nutrition, metabolism, and development symptoms ICD Codes: R63.8 - Other symptoms and signs concerning food and fluid intake Status: Acute Plan: Fluids: None Electrolytes: Replete as needed per nephrology recommendations Nutrition: regular diet DVT prophylaxis: Contraindicated GI prophylaxis: Protonix twice daily (Dee Dee Viera MD R1) Problem Qualifiers (1) GI bleed: Qualified Codes: K92.2 - Gastrointestinal hemorrhage, unspecified Dee Dee Viera MD R1 Feb 02, 2018 08:58 Teresa Wang MD Feb 02, 2018 11:25
[2018-02-02] MEDS ORDERED: GLUCAGON 1 MG/ML VIAL OTHER PRN (11:15)
[2018-02-02] MEDS ORDERED: DEXTROSE 50% IN WATER 50 ML VIAL(D50) IV PUSH PRN (11:15)
[2018-02-02 12:00] VITALS: BP 154/67; PULSE 72; RESP 23; TEMP 97.7; O2SAT 98
[2018-02-02] MEDS: INSULIN ASPART SUPPLEMENTAL SCALE SQ SCH ×3 (12:00→21:21)
--- NOTE | 2018-02-02 12:36 | HHI.GIFU ---
Subjective Remarks Patient is resting in the bed in the intensive care setting for now No nausea vomiting but does state stool is dark Refusing colonoscopy but okay with endoscopy Denies any abdominal pain (Marybel Mariano) Objective Vitals I&O Vital Signs Date Time Temp Pulse Resp B/P (MAP) Pulse Ox O2 Delivery O2 Flow Rate FiO2 02/02/18 08:00 98.2 72 20 166/73 (104) 94 02/02/18 04:00 98.0 70 27 143/64 (90) 97 02/02/18 00:00 98.1 67 22 127/58 (81) 97 02/01/18 20:45 21 02/01/18 20:17 98.2 70 21 113/55 (74) 95 02/01/18 18:17 98.2 67 16 116/57 100 02/01/18 16:04 99 02/01/18 16:00 98.2 66 12 119/56 (77) 100 02/01/18 15:49 98.4 64 20 119/60 100 02/01/18 15:28 98.2 18 124/57 100 02/01/18 15:10 98.6 67 18 119/56 100 02/01/18 13:48 97.9 69 16 140/63 (88) 100 02/01/18 13:37 18 02/01/18 12:49 98.3 72 19 171/79 98 02/01/18 12:48 98.3 72 19 171/79 (109) 98 02/01/18 12:48 98.3 72 19 171/79 96 02/01/18 12:43 98.6 77 19 154/75 (101) 96 Room Air 02/01/18 12:32 98.6 72 18 154/75 95 I/O 02/01/18 02/01/18 02/01/18 02/02/18 02/02/18 02/02/18 07:00 15:00 23:00 07:00 15:00 23:00 Intake Total 10 ml 800 ml 1200 ml Balance 10 ml 800 ml 1200 ml Intake Oral 1200 ml Packed Cells 800 ml Blood Product IV Normal Saline Flush 10 ml # Bowel Movements 1 2 Laboratory Laboratory Tests Test 02/01/18 18:48 02/01/18 20:12 02/02/18 04:50 Hepatitis A IgM Antibody NONREACTIVE Hepatitis B Surface Antigen NONREACTIVE Hepatitis B Core IgM Antibody NONREACTIVE Hepatitis C IgG Antibody NONREACTIVE Hemoglobin 9.0 8.4 Hematocrit 28.1 25.7 White Blood Count 8.4 Red Blood Count 3.12 Mean Corpuscular Volume 82.4 Mean Corpuscular Hemoglobin 27.0 Mean Corpuscular Hemoglobin Concent 32.8 Red Cell Distribution Width 18.7 Platelet Count 296 Mean Platelet Volume 9.1 Neutrophils (%) (Auto) 55.0 Lymphocytes (%) (Auto) 18.9 Monocytes (%) (Auto) 12.9 Eosinophils (%) (Auto) 12.6 Basophils (%) (Auto) 0.6 Neutrophils # (Auto) 4.6 Lymphocytes # (Auto) 1.6 Monocytes # (Auto) 1.1 Eosinophils # (Auto) 1.1 Basophils # (Auto) 0.1 CBC Comment DIFF FINAL Differential Comment Blood Urea Nitrogen 66 Creatinine 7.06 Random Glucose 184 Calcium Level 7.8 Sodium Level 139 Potassium Level 4.2 Chloride Level 102 Carbon Dioxide Level 22.2 Anion Gap 15 Estimat Glomerular Filtration Rate 7 Imaging Last Impressions GI Bleed Scan Nuclear Medicine 02/01/18 0000 Signed Impressions: CONCLUSION: 1. No active GI bleeding Chest X-Ray 02/01/18 0000 Signed Impressions: CONCLUSION: Mild cardiomegaly again noted with no evidence of pulmonary edema. Physical Exam HEENT: Frail, normocephalic; atraumatic; pale NECK: Neck is supple, CHEST: Nonlabored CARDIAC: Heart rate controlled ABDOMEN: Soft, nondistended, nontender to light palpation bowel sounds are present in all four quadrants. EXTREMITIES: No clubbing, cyanosis, or edema. SKIN: Pale mucous membranes GRAPE CRUSHER: Answers simple questions (Marybel Mariano) Assessment and Plan Plan - Acute on chronic anemia- Likely multifactorial anemia of chronic dz and GI bleed. hemoglobin of 6.9 on recent lab results. This is a drop from base line 8. Patient noticed dark blood in her stool on Saturday however non since. Refused to answer how much and how many times. Denies any nausea, vomiting, hematemesis, abd pain, dizziness, lightheadedness, or chest pain. Patient has complicated history of GI bleed in July 2017 and Aug/sep 2017 requiring blood transfusion and resection of colon for bleeding in transverse colon. s/p left colectomy and low anterior anastomosis by Dr. De La Cruz on 09/18/17. She follows with Dr. De La Cruz and saw him 1 month ago. EGD 10/14/17 --> Normal esophagus. Food residue in the entire examined stomach. Normal duodenum. Retroflex view limited due to food. Colonoscopy 10/14/17 --> Evidence of prior colonic surgical anastomosis in sigmoid colo-colon. Medium sized non-bleeding ulcer at anastomosis site, biopsy showed fibrinopurulent exudate consistent with an ulcer. Patient wasn't very cooperative during the exam, stating wants to be left alone and she is not having another colonoscopy done. - ESRD (on dialysis MWF), DM and HTN per attending 02/02/2018 GI bleeding scan shows no active bleeding. Currently patient denies any nausea or vomiting and no abdominal pain. Today patient is still refusing colonoscopy but will allow endoscopy. Scheduled for a.m. Current labs show hemoglobin 8.4, INR 1.1. Plans: -Diet -Consent for EGD to be done in a.m. -N.p.o. at midnight - PPI -Monitor labs -Supportive care -Further recommendations to follow after EGD - Pt is seen and examined by Dr. Baugh and myself and this note is written on her behalf. (Marybel Mariano) Physician Comments seen, examined agree with above (Marina Baugh MD) Marybel Mariano Feb 02, 2018 12:36 Marina Baugh MD Feb 02, 2018 21:35
--- NOTE | 2018-02-02 14:15 | HHI.NPPN ---
Subjective Additional Remarks no acute complaints, ongoing blood in stool Objective Data Data Vital Signs Date Time Temp Pulse Resp B/P (MAP) Pulse Ox O2 Delivery O2 Flow Rate FiO2 02/02/18 12:00 97.7 72 23 154/67 (96) 98 02/02/18 08:00 98.2 72 20 166/73 (104) 94 02/02/18 04:00 98.0 70 27 143/64 (90) 97 02/02/18 00:00 98.1 67 22 127/58 (81) 97 02/01/18 20:45 21 02/01/18 20:17 98.2 70 21 113/55 (74) 95 02/01/18 18:17 98.2 67 16 116/57 100 02/01/18 16:04 99 02/01/18 16:00 98.2 66 12 119/56 (77) 100 02/01/18 15:49 98.4 64 20 119/60 100 02/01/18 15:28 98.2 18 124/57 100 02/01/18 15:10 98.6 67 18 119/56 100 -: 02/02/18 0450 02/02/18 0450 Physical Exam General Appearance: Well Developed, Well Nourished, No Acute Distress Throat Throat Exam: Oral Mucosa Point & Moist Neck Neck Exam: Neck Supple Pulmonary Resp Exam: Clear Bilaterally, Decreased Bases Cardiology CV Exam: Regular, Normal Sinus Rhythm Gastrointestinal/Abdomen GI Exam: Soft, Non-Tender, Bowel Sounds Present Musculoskeletal MS Exam: Joints Intact Integumentary Skin Exam: Warm, Dry, Intact Extremeties Extremities Exam: No Edema Neurologic Neuro Exam: Alert, Awake, Oriented, Speech Clear Psychiatric Psych Exam: Appropriate Responses Assessment/Plan Problem List: (1) ESRD (end stage renal disease) on dialysis ICD Codes: N18.6 - End stage renal failure on dialysis; Z99.2 - Dependence on renal dialysis Status: Chronic Plan: Outpatient MWF HD with Dr. Greene. Last HD Saturday outpatient - sent here after treatment for anemia on labs. Continue MWF HD - HD Saturday Volume status, electrolytes stable. (2) GI bleed ICD Codes: K92.2 - Gastrointestinal hemorrhage, unspecified Status: Acute Plan: Hgb 5.9 -> 8.4 s/p 2U PRBCs Negative bleeding scan History of previous GI bleeds and left colectomy for bleeding. For EGD tomorrow, follow with GI. (3) Hypertension ICD Codes: I10 - Hypertension Status: Chronic Plan: continue meds (4) Hypothyroidism ICD Codes: E03.9 - Hypothyroidism Status: Chronic Plan: continue meds Problem Qualifiers (1) GI bleed: Qualified Codes: K92.2 - Gastrointestinal hemorrhage, unspecified Chris Buchanan MD Feb 02, 2018 14:15
[2018-02-02 16:00] VITALS: BP 129/63; PULSE 69; RESP 26; TEMP 99; O2SAT 93
[2018-02-02] MEDS: oxyCODONE/ACETAMINOPHEN 5 MG/325 MG TAB PO PRN (17:24)
[2018-02-02 20:00] VITALS: BP 129/60; PULSE 72; RESP 36; TEMP 98.7; O2SAT 94
--- NOTE | 2018-02-02 20:40 | PD.CAR.PN ---
CVT Progress Note Subjective/Hospital Course: 72-year-old female known to me from my previous encounters She now comes with anemia and hemoglobin of 6.5 g/dL. Patient had a extended left colectomy with low anterior anastomosis in August this year and is followed up with me about a month ago I reviewed the results of recent colonoscopy Full consult to follow Esdras Reaves Objective: Vital Signs Date Time Temp Pulse Resp B/P (MAP) Pulse Ox O2 Delivery O2 Flow Rate FiO2 02/02/18 20:00 98.7 72 36 129/60 (83) 94 02/02/18 16:00 99.0 69 26 129/63 (85) 93 02/02/18 12:00 97.7 72 23 154/67 (96) 98 02/02/18 08:00 98.2 72 20 166/73 (104) 94 02/02/18 04:00 98.0 70 27 143/64 (90) 97 02/02/18 00:00 98.1 67 22 127/58 (81) 97 02/01/18 20:45 21 Result Diagram: 02/02/18 0450 02/02/18 0450 Amalia De La Cruz MD Feb 02, 2018 20:40
[2018-02-02] MEDS: MIRTAZAPINE 15 MG TAB PO SCH (21:08)
[2018-02-03] VITALS (7 sets, daily range): BP systolic 124–198; BP diastolic 61–86; PULSE 71–93; RESP 14–20; TEMP 75–101.5; O2SAT 93–100
[2018-02-03] MEDS: LEVOTHYROXINE SODIUM 88 MCG TAB PO SCH (05:06)
[2018-02-03] MEDS: oxyCODONE/ACETAMINOPHEN 5 MG/325 MG TAB PO PRN ×2 (05:07→23:11)
[2018-02-03 06:07] LABS: HEMATOCRIT 26.9 % (35.0-46.0); HEMOGLOBIN 8.7 GM/DL (11.6-15.3); MEAN CELL VOLUME 83.1 FL (80.0-100.0); MEAN CORPUSCULAR HGB CONC 32.4 % (32.0-36.0); MEAN PLATELET VOLUME 9.1 FL (7.0-11.0); PLATELET COUNT 305 TH/MM3 (150-450); RED BLOOD COUNT 3.24 MIL/MM3 (4.00-5.30); RED CELL DISTRIBUTION WIDTH 19.1 % (11.6-17.2); WHITE BLOOD COUNT 9.4 TH/MM3 (4.0-11.0)
[2018-02-03 06:40] LABS: BICARBONATE 20.4 MEQ/L (21.0-32.0); CALCIUM 7.8 MG/DL (8.5-10.1); CREATININE 8.75 MG/DL (0.50-1.00)
[2018-02-03] MEDS: INSULIN ASPART SUPPLEMENTAL SCALE SQ SCH ×4 (07:49→22:51)
[2018-02-03] MEDS: CARVEDILOL 12.5 MG TAB PO SCH ×2 (08:03→22:52)
[2018-02-03] MEDS: SODIUM CHLORIDE 0.9% FLUSH 10 ML FLUSH IV FLUSH SCH ×2 (08:03→22:52)
--- NOTE | 2018-02-03 08:39 | HHI.FPPN ---
Subjective Remarks No acute events overnight. Patient resting comfortably in bed and watching TV this morning. Patient states that she currently has left sided abdominal pain unchanged since admission. She is able to tolerate her diet without nausea and vomiting. She denies any chest pain, shortness of breath, fevers, diarrhea, and dysuria. Patient is interested in having a sleep aid upon discharge. Will consider clonazepam or clonidine. Hemoglobin stable at 8.7. Patient will be getting a EGD and going to dialysis today. (Dee Dee Viera MD R1) Objective Vitals Vital Signs Date Time Temp Pulse Resp B/P (MAP) Pulse Ox O2 Delivery O2 Flow Rate FiO2 02/03/18 08:00 75.0 75 14 153/67 (95) 96 02/03/18 04:00 98.8 71 19 171/72 (105) 93 02/03/18 00:02 98.3 72 17 124/61 (82) 100 02/02/18 20:00 98.7 72 36 129/60 (83) 94 02/02/18 16:00 99.0 69 26 129/63 (85) 93 02/02/18 12:00 97.7 72 23 154/67 (96) 98 I/O 02/02/18 02/02/18 02/02/18 02/03/18 02/03/18 02/03/18 07:00 15:00 23:00 07:00 15:00 23:00 Intake Total 1200 ml 840 ml 860 ml Output Total 0 ml Balance 1200 ml 840 ml 860 ml Intake Oral 1200 ml 840 ml 860 ml Output Urine Total 0 ml # Bowel Movements 2 0 1 (Dee Dee Viera MD R1) Result Diagram: 02/03/18 0500 02/03/18 0500 Objective Remarks GENERAL: very thin elderly female, in NAD CARDIOVASCULAR: Regular rate and rhythm without murmurs, gallops, or rubs. RESPIRATORY: Clear to auscultation. Breath sounds equal bilaterally. No wheezes , rales, or rhonchi. Currently on 2L NC. GASTROINTESTINAL: Abdomen soft, mild tenderness to palpation of left upper quadrant, nondistended. No hepato-splenomegaly, or palpable masses. No guarding. MUSCULOSKELETAL: Left extremity without clubbing, cyanosis, or edema. No joint tenderness, effusion, or edema noted. No calf tenderness. 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 NEUROLOGICAL: AAOx3. normal speech. (Dee Dee Viera MD R1) A/P Assessment and Plan Patient is a 72-year-old female with significant past medical history of prior GI bleed, ESRD (on dialysis MWF), DM and HTN presenting with: Discharge Planning Nephrology, GI, and vascular recs and clearance Awaiting pallative care recommendations (Dee Dee Viera MD R1) Attending Attestation Medical rounds performed with Dr Iza Viera Patient interviewed and examined Detail discussion regarding pts medical care held with Dr Viera Agree with contents of note See Antonio (Bigg Wiseman MD) Problem List: (1) GI bleed ICD Codes: K92.2 - Gastrointestinal hemorrhage, unspecified Status: Acute Plan: Patient with asymptomatic anemia found to have hemoglobin of 6.9 a decrease from her baseline of 8. Tender to palpation of LUQ on abdominal exam. In the ED patient was found to have a positive Hemoccult stool sample and was given Protonix 40mg IV1 Patient has complicated history of GI bleed in July 2017 and Aug/sep 2017 requiring transfusion of 7 units of packed red blood cells during at last hospitalization and resection of colon for bleeding in transverse colon. s/p left colectomy and low anterior anastomosis by Dr. De La Cruz on 09/18/17. She follows with Dr. De La Cruz and saw him 1 month ago. EGD on 07/2017: Normal esophagus except for mild to mod Schatzki ring and moderate size hiatal hernia. However, gastric mucosa was unremarkable and within normal limits. IR procedure: Celiac, SMA, and GERARDO angiography to evaluate acute LGIB felt to be arising form transverse colon. Angio shows no source of hemorrhage or abnormal vessel/AVM. No embolization performed. Colonoscopy done in 10/2017 showed: Evidence of prior colorectal colonic surgical anastomosis in the sigmoid colon. Medium sized nonbleeding ulcer found at the anastomosis site biopsies taken showed no significant histopathologic abnormality negative for epithelial polyp. s/p 2 units of RBC on 02/02/18, Hb increased to 8.4 post transfusin, Hb 8.7 today , continue to monitor GI and vascular surgery consulted, appreciate recommendations -GI bleed scan negative for active GI bleeding -Continue Protonix 40 mg IV BID -EGD scheduled for today (2) ESRD (end stage renal disease) on dialysis ICD Codes: N18.6 - End stage renal failure on dialysis; Z99.2 - Dependence on renal dialysis Status: Chronic Plan: Hemodialysis schedule: Electrolytes within normal limits Patient does not make any urine Nephrology consulted, appreciate recommendations, she received dialysis Saturday -Dialysis is scheduled for today -Patient to follow-up with Dr. Greene as an outpatient (3) Hypertension ICD Codes: I10 - Hypertension Status: Chronic Plan: Continue home amlodipine and coreg Clonidine0.1mg PO RPN for BP >180/100 (4) Diabetes mellitus ICD Codes: E11.9 - Type 2 diabetes mellitus without complications Status: Chronic Plan: Blood sugars 184, 165, 176, and 237- patient received 3 units of insulin over the past 24 hours, patient refused insulin for coverage when blood sugars were elevated Patient placed on low SS Hypoglycemia protocol (5) Hypothyroidism ICD Codes: E03.9 - Hypothyroidism Status: Chronic Plan: C/w levothyroxine 88mcg QD (6) Depression ICD Codes: F32.9 - Depression Status: Chronic Plan: Continue with mirtazapine 30mg HS (7) Insomnia ICD Codes: G47.00 - Insomnia Status: Chronic Plan: Ambien 5 mg as needed (8) Phantom limb pain ICD Codes: G54.6 - Phantom limb syndrome with pain Status: Chronic Plan: Patient is status post [id number] amputation of right lower extremity on 09/28/17. c/w percocet 5mg for pain (9) Nutrition, metabolism, and development symptoms ICD Codes: R63.8 - Other symptoms and signs concerning food and fluid intake Status: Acute Plan: Fluids: None Electrolytes: Replete as needed per nephrology recommendations Nutrition: regular diet DVT prophylaxis: Contraindicated GI prophylaxis: Protonix twice daily (Dee Dee Viera MD R1) Problem Qualifiers (1) GI bleed: Qualified Codes: K92.2 - Gastrointestinal hemorrhage, unspecified Dee Dee Viera MD R1 Feb 03, 2018 08:39 Bigg Wiseman MD Feb 03, 2018 19:36
[2018-02-03] MEDS: PANTOPRAZOLE SODIUM 40 MG VIAL IV PUSH SCH ×2 (10:42→23:11)
--- NOTE | 2018-02-03 11:39 | PD.CONS ---
Consult Service Palliative Care Consult Requested By Dr. Viera . Primary Care Physician Charu Akbar MD Reason for Consultation a. To assist with evaluation and management of symptoms including:Pain, Debility b. To assist medical decision maker(s) with: better understanding of current medical conditions; weighing benefits/burdens of medical treatment options; making medical treatment decisions. HPI History of Present Illness Ms. Bolivar is a 72-year-old female with a past medical history significant for end-stage renal disease on hemodialysis (on Saturday, Saturday and Saturday), diabetes mellitus, hypertension, history of GI bleed, hypothyroidism, hepatitis C, and depression. Patient presented to the ER on 01/31/18 after she received a call from the dialysis center notifying her that she had low hemoglobin and needed to go to the emergency room for further evaluation. It is noted that patient has an extensive history of GI bleed in the past resulting in undergoing transverse colectomy for colon bleeding by Dr. De La Cruz 08/2017. Patient is known to palliative care. ER course: * Vital signs: Temperature 99.1, pulse 101, respirations 16, blood pressure 130/ 64, O2 saturation 91% on 2 L nasal cannula * Laboratory workup revealed WBC 7.9, hemoglobin 6.9, hematocrit 23.4, platelet count 423, sodium 140, potassium 4.2, BUN/creatinine 39/4.68, random glucose 261 , calcium 8.1, PT 10.9, INR 1.1, APTT 22.6 * 02/01/18-Chest x-ray revealed mild cardiomegaly with no evidence of pulmonary edema. * Stool- guaiac positive. Refused rectal exam. Protonix administered * 02/01/18-GI bleed scan NM revealed no active GI bleeding. * Patient admitted for further evaluation and treatment of GI bleed. Nephrology Dr. Em Buchanan consulted on 02/01/18 for evaluation and management of patient with ESRD on HD. GI Dr. Baugh consulted on 02/01/18 for evaluation and management of possible GI bleed, recommended transfusing 2 units PRBC, and EGD/ colonoscopy but at that time patient refused any GI workup. 2 units PRBC transfused on 02/01/18. Dr. Mendiola consulted on 02/02/18 for evaluation and management of a patient with possible GI bleed and has a history of extended left colectomy with low anterior anastomosis in August 2017. Patient has been declining to have GI workup, requesting to go home. Palliative care has been consulted to assist with establishing goals of care and symptom management. Attempted to visit with patient, notified with bedside RN that patient went to GI lab for an upper endoscopy with biopsy. From there patient went for hemodialysis. Patient seen and examined in the room in [facility] after hemodialysis. Patient is alert, oriented to self, place and situation. Patient is not very cooperative during visit. She is complaining that she is feeling cold and she does not want to talk at this time. Patient is also frustrated because she states that she did not eat anything all day. CODE STATUS addressed, patient angry that everybody keeps asking "that same question" and she has not changed her mind. Patient states she wants everything done to keep her alive although she mentions that she will not undergo colonoscopy because she does not want to take the prep for the procedure. Patient said," I will not drink that nasty stuff, and i don`t care what you say, i wont". Patient mentioning that she wants to go home today and if not possible tomorrow. Patient did confirm that in the event that she is incapacitated she would want her daughter daughter Isabella Chiu to serve as her healthcare surrogate and her other daughter Carli Chiu to serve as her alternate healthcare surrogate. Patient very dismissive during visit. . Function/Cognitive Trajectory Patient has had 2 hospitalizations this year, one in August for a GI bleed and another one for an infected diabetic ulcer. Patient. Below knee amputation in September 2017, head in patient rehab at [facility] and was discharged home. Currently lives at home, is independent in his 2 daughters who provide assistance at home. Patient is ESRD on hemodialysis 3 days a week. Patient is a wheelchair Review of Systems Constitutional: COMPLAINS OF: Fatigue Eyes: DENIES: Eye inflammation Ears, nose, mouth, throat: DENIES: Nasal discharge Respiratory: COMPLAINS OF: Shortness of breath, DENIES: Cough, Sputum production Cardiovascular: DENIES: Chest pain, Lower Extremity Edema Gastrointestinal: COMPLAINS OF: Bloody stools (Prior to presenting to the hospital), DENIES: Nausea, Vomiting Genitourinary: DENIES: Urinary incontinence Hematologic/Lymphatics: COMPLAINS OF: Bruising Neurologic: DENIES: Speech Problems Psychiatric: DENIES: Confusion Past Family Social History Coded Allergies: *MDRO Multi-Drug Resistant Organism (Verified Allergy, Unknown, 01/31/18) MRSA Past Medical History ESRD (on dialysis MWF since 11/2012) Hypertension Diabetes mellitus Hepatitis C Hypothyroidism GERD Diabetic nephropathy resulting in ESRD Nocturnal hypoxia (on 2 L night-time oxygen) Foot abscess July 2017 (wound vac, surgery) GI bleeding, July 2017 Depression Cataracts . Past Surgical History Left hallux amputation Below knee amputation of right lower extremity Left colectomy and low anterior anastomosis by Dr. De La Cruz on 09/18/17 Right foot abscess I&D EGD/colonoscopy . Reported Medications Synthroid (Levothyroxine Sodium) 88 Mcg Tab 88 Mcg PO DAILY@0600 Pantoprazole (Pantoprazole Sodium) 40 Mg Tab 40 Mg PO Q12HR Mirtazapine 15 Mg Tab 30 Mg PO HS Oxycodone-Acetaminophen 5-325 (Oxycodone HCl/Acetaminophen) 5 Mg-325 Mg Tablet 1 Tab PO Q6H PRN Coreg (Carvedilol) 12.5 Mg Tab 12.5 Mg PO Q12HR Nephro-Jammie Rx (Vitamin B Cmplx/Vit C/Folic AC) 1 Tab 1 Tab PO DAILY Aspir-81 (Aspirin) 81 Mg Tabdr 81 Mg PO DAILY Amlodipine (Amlodipine Besylate) 10 Mg Tab 10 Mg PO DAILY Proair Hfa 8.5 GM Inh (Albuterol Sulfate) 90 Mcg/Act Aer 2 Puff INH Q4-6H PRN Hydroxyzine HCl 25 Mg Tab 25 Mg PO HS Glucocom Test Strips (Blood Glucose Test Strips) 1 Val Val Ea DIRECTED . Current Medications Medications (Trade) Dose Ordered Sig/Rita Route Start Time Stop Time Status Last Admin (Proair Hfa Inh) 2 puff BID PRN INH 02/01/18 01:00 (Norvasc) 10 mg DAILY PO 02/01/18 09:00 02/03/18 08:03 (Coreg) 12.5 mg Q12HR PO 02/01/18 09:00 02/03/18 08:03 (Synthroid) 88 mcg DAILY@0600 PO 02/01/18 06:00 02/03/18 05:06 (Remeron) 30 mg HS PO 02/01/18 21:00 02/02/18 21:08 (Percocet 5-325 Mg) 1 tab Q6H PRN PO 02/01/18 01:00 02/03/18 05:07 (NS Flush) 2 ml UNSCH PRN IV FLUSH 02/01/18 01:15 (NS Flush) 2 ml BID IV FLUSH 02/01/18 09:00 02/03/18 08:03 (Tylenol) 650 mg Q4H PRN PO 02/01/18 01:15 (Narcan Inj) 0.4 mg UNSCH PRN IV PUSH 02/01/18 01:15 (Milk Of Magnesia Liq) 30 ml Q12H PRN PO 02/01/18 01:15 (Senokot) 17.2 mg Q12H PRN PO 02/01/18 01:15 (Protonix Inj) 40 mg Q12H IV PUSH 02/01/18 12:00 02/02/18 23:35 (Ambien) 5 mg HS PRN PO 02/01/18 01:45 Sodium Chloride 1,000 ml @ 0 mls/hr Q0M PRN OTHER 02/01/18 16:17 (Heparin Inj) 8,000 units UNSCH PRN IV FLUSH 02/01/18 16:30 (Heparin Inj) 1,000 units Q1H PRN IV FLUSH 02/01/18 16:30 Sodium Chloride 1,000 ml @ 200 mls/hr Q5H PRN IV 02/01/18 16:17 Sodium Chloride 1,000 ml @ 0 mls/hr Q0M PRN OTHER 02/01/18 16:17 (Mannitol Inj) 12.5 gm UNSCH PRN IV 02/01/18 16:30 Albumin Human 100 ml @ 60 mls/hr UNSCH PRN IV 02/01/18 16:30 (NS Flush) 5 ml UNSCH PRN IV FLUSH 02/01/18 16:30 (Heparin Inj) UNSCH PRN .XX 02/01/18 16:30 (Gentamicin Inj) 20 mg UNSCH PRN OTHER 02/01/18 16:30 (Zofran Odt) 4 mg UNSCH PRN PO 02/01/18 16:30 (Tylenol) 650 mg UNSCH PRN PO 02/01/18 16:30 (Benadryl) 25 mg UNSCH PRN PO 02/01/18 16:30 (Nitrostat Sl) 0.4 mg UNSCH PRN SL 02/01/18 16:30 (Catapres) 0.1 mg UNSCH PRN PO 02/01/18 16:30 (Epogen Inj) 5,000 units UNSCH PRN IV PUSH 02/01/18 16:30 (Gelfoam 12 Mm/7 Mm Top) 1 foam UNSCH PRN TOP 02/01/18 16:30 (D50w (Vial) Inj) 50 ml UNSCH PRN IV PUSH 02/02/18 11:15 (Glucagon Inj) 1 mg UNSCH PRN OTHER 02/02/18 11:15 (NovoLOG SUPPLEMENTAL SCALE) 1 ACHS SLIDING SCALE SQ 02/02/18 12:00 02/02/18 21:21 Family History Non contributory Substance Use Tobacco: He is a 37-vxve-nned smoking history. Currently smokes 1-2 cigarettes per day Alcohol: Consumes wine occasionally Prescription med abuse: Denies Illicits: History of crack cocaine use. Previous medical records . Psychosocial History Patient has 4 adult children and she lives with her daughter, who is also a healthcare surrogate decision maker. . Spiritual/Cultural Factors Patient is Mandaeism . Health Care Surrogate: Copy in medical record Date completed: [facility]-10/11/17 . Health Care Surrogate(s): [facility]- Daughter- Isabella Chiu [phone] Alternate [facility]- daughter, Carli Chiu . Ethical and Legal Issues None identified at this time . Physical Exam Vital Signs Date Time Temp Pulse Resp B/P (MAP) Pulse Ox O2 Delivery O2 Flow Rate FiO2 02/03/18 09:43 100 Nasal Cannula 2.00 02/03/18 08:00 75.0 75 14 153/67 (95) 96 02/03/18 04:00 98.8 71 19 171/72 (105) 93 02/03/18 00:02 98.3 72 17 124/61 (82) 100 02/02/18 20:00 98.7 72 36 129/60 (83) 94 02/02/18 16:00 99.0 69 26 129/63 (85) 93 02/02/18 12:00 97.7 72 23 154/67 (96) 98 Exam CONSTITUTIONAL/GENERAL: This is an elderly adequately nourished patient, in no apparent distress. TUBES/LINES/DRAINS: piv, NC SKIN: No jaundice, rashes, or lesions. Ecchymoses on upper extremities. No wounds seen anteriorly. Skin cool and dry. HEAD: Atraumatic. Normocephalic. EYES: Pupils equal and round and reactive. Extraocular motions intact. No scleral icterus. No injection or drainage. Fundi not examined. ENT: Hearing grossly normal. Nose without bleeding or purulent drainage. NECK: Trachea midline. Supple, nontender. CARDIOVASCULAR: Regular rate and rhythm without murmurs, gallops, or rubs. No JVD. Peripheral pulses symmetric. RESPIRATORY/CHEST: Symmetric, unlabored respirations. Clear to auscultation. Breath sounds equal bilaterally. No wheezes, rales, or rhonchi. GASTROINTESTINAL: Abdomen soft, non-tender, nondistended. No hepato-splenomegaly , or palpable masses. No guarding. Bowel sounds present. GENITOURINARY: Without palpable bladder distension. Schultz catheter in place. MUSCULOSKELETAL: Left lower extremities without clubbing, cyanosis, or edema. No joint tenderness or effusion noted. No calf tenderness. No mottling or clubbing. RLE BKA NEUROLOGICAL: Awake and alert, oriented to self, place and situation. Motor and sensory grossly within normal limits. Following simple commands. Moves all extremities. PSYCHIATRIC: No obvious anxiety/depression. no apparent hallucinations or other psychotic thought process. Diagnostic Tests Laboratory Laboratory Tests Test 01/31/18 21:42 02/01/18 08:00 02/01/18 18:48 02/01/18 20:12 White Blood Count 7.9 TH/MM3 (4.0-11.0) 7.8 TH/MM3 (4.0-11.0) Red Blood Count 2.74 MIL/MM3 (4.00-5.30) 2.24 MIL/MM3 (4.00-5.30) Hemoglobin 6.9 GM/DL (11.6-15.3) 5.8 GM/DL (11.6-15.3) 9.0 GM/DL (11.6-15.3) Hematocrit 23.4 % (35.0-46.0) 18.7 % (35.0-46.0) 28.1 % (35.0-46.0) Mean Corpuscular Volume 85.4 FL (80.0-100.0) 83.5 FL (80.0-100.0) Mean Corpuscular Hemoglobin 25.1 PG (27.0-34.0) 25.7 PG (27.0-34.0) Mean Corpuscular Hemoglobin Concent 29.4 % (32.0-36.0) 30.8 % (32.0-36.0) Red Cell Distribution Width 22.2 % (11.6-17.2) 21.8 % (11.6-17.2) Platelet Count 423 TH/MM3 (150-450) 314 TH/MM3 (150-450) Mean Platelet Volume 9.8 FL (7.0-11.0) 9.5 FL (7.0-11.0) Neutrophils (%) (Auto) 57.8 % (16.0-70.0) 50.8 % (16.0-70.0) Lymphocytes (%) (Auto) 18.2 % (9.0-44.0) 22.2 % (9.0-44.0) Monocytes (%) (Auto) 12.2 % (0.0-8.0) 14.4 % (0.0-8.0) Eosinophils (%) (Auto) 11.1 % (0.0-4.0) 11.9 % (0.0-4.0) Basophils (%) (Auto) 0.7 % (0.0-2.0) 0.7 % (0.0-2.0) Neutrophils # (Auto) 4.6 TH/MM3 (1.8-7.7) 3.9 TH/MM3 (1.8-7.7) Lymphocytes # (Auto) 1.4 TH/MM3 (1.0-4.8) 1.7 TH/MM3 (1.0-4.8) Monocytes # (Auto) 1.0 TH/MM3 (0-0.9) 1.1 TH/MM3 (0-0.9) Eosinophils # (Auto) 0.9 TH/MM3 (0-0.4) 0.9 TH/MM3 (0-0.4) Basophils # (Auto) 0.1 TH/MM3 (0-0.2) 0.1 TH/MM3 (0-0.2) CBC Comment AUTO DIFF DIFF FINAL Differential Comment AUTO DIFF CONFIRMED Prothrombin Time 10.9 SEC (9.8-11.6) Prothromb Time International Ratio 1.1 RATIO Activated Partial Thromboplast Time 22.6 SEC (24.3-30.1) Blood Urea Nitrogen 39 MG/DL (7-18) 50 MG/DL (7-18) Creatinine 4.68 MG/DL (0.50-1.00) 5.75 MG/DL (0.50-1.00) Random Glucose 261 MG/DL (74-106) 112 MG/DL (74-106) Calcium Level 8.1 MG/DL (8.5-10.1) 8.0 MG/DL (8.5-10.1) Magnesium Level 2.2 MG/DL (1.5-2.5) Sodium Level 140 MEQ/L (136-145) 139 MEQ/L (136-145) Potassium Level 4.2 MEQ/L (3.5-5.1) 4.2 MEQ/L (3.5-5.1) Chloride Level 101 MEQ/L (98-107) 103 MEQ/L (98-107) Carbon Dioxide Level 27.0 MEQ/L (21.0-32.0) 23.5 MEQ/L (21.0-32.0) Anion Gap 12 MEQ/L (5-15) 13 MEQ/L (5-15) Estimat Glomerular Filtration Rate 11 ML/MIN (>89) 9 ML/MIN (>89) Total Protein 6.9 GM/DL (6.4-8.2) Albumin 2.5 GM/DL (3.4-5.0) Alkaline Phosphatase 169 U/L (45-117) Aspartate Amino Transf (AST/SGOT) 17 U/L (15-37) Alanine Aminotransferase (ALT/SGPT) 19 U/L (10-53) Total Bilirubin 0.2 MG/DL (0.2-1.0) Hepatitis A IgM Antibody NONREACTIVE (NONREACTIVE) Hepatitis B Surface Antigen NONREACTIVE (NONREACTIVE) Hepatitis B Core IgM Antibody NONREACTIVE (NONREACTIVE) Hepatitis C IgG Antibody NONREACTIVE (NONREACTIVE) Test 02/02/18 04:50 02/03/18 05:00 White Blood Count 8.4 TH/MM3 (4.0-11.0) 9.4 TH/MM3 (4.0-11.0) Red Blood Count 3.12 MIL/MM3 (4.00-5.30) 3.24 MIL/MM3 (4.00-5.30) Hemoglobin 8.4 GM/DL (11.6-15.3) 8.7 GM/DL (11.6-15.3) Hematocrit 25.7 % (35.0-46.0) 26.9 % (35.0-46.0) Mean Corpuscular Volume 82.4 FL (80.0-100.0) 83.1 FL (80.0-100.0) Mean Corpuscular Hemoglobin 27.0 PG (27.0-34.0) 27.0 PG (27.0-34.0) Mean Corpuscular Hemoglobin Concent 32.8 % (32.0-36.0) 32.4 % (32.0-36.0) Red Cell Distribution Width 18.7 % (11.6-17.2) 19.1 % (11.6-17.2) Platelet Count 296 TH/MM3 (150-450) 305 TH/MM3 (150-450) Mean Platelet Volume 9.1 FL (7.0-11.0) 9.1 FL (7.0-11.0) Neutrophils (%) (Auto) 55.0 % (16.0-70.0) Lymphocytes (%) (Auto) 18.9 % (9.0-44.0) Monocytes (%) (Auto) 12.9 % (0.0-8.0) Eosinophils (%) (Auto) 12.6 % (0.0-4.0) Basophils (%) (Auto) 0.6 % (0.0-2.0) Neutrophils # (Auto) 4.6 TH/MM3 (1.8-7.7) Lymphocytes # (Auto) 1.6 TH/MM3 (1.0-4.8) Monocytes # (Auto) 1.1 TH/MM3 (0-0.9) Eosinophils # (Auto) 1.1 TH/MM3 (0-0.4) Basophils # (Auto) 0.1 TH/MM3 (0-0.2) CBC Comment DIFF FINAL Differential Comment Blood Urea Nitrogen 66 MG/DL (7-18) 78 MG/DL (7-18) Creatinine 7.06 MG/DL (0.50-1.00) 8.75 MG/DL (0.50-1.00) Random Glucose 184 MG/DL (74-106) 139 MG/DL (74-106) Calcium Level 7.8 MG/DL (8.5-10.1) 7.8 MG/DL (8.5-10.1) Sodium Level 139 MEQ/L (136-145) 137 MEQ/L (136-145) Potassium Level 4.2 MEQ/L (3.5-5.1) 5.2 MEQ/L (3.5-5.1) Chloride Level 102 MEQ/L (98-107) 101 MEQ/L (98-107) Carbon Dioxide Level 22.2 MEQ/L (21.0-32.0) 20.4 MEQ/L (21.0-32.0) Anion Gap 15 MEQ/L (5-15) 16 MEQ/L (5-15) Estimat Glomerular Filtration Rate 7 ML/MIN (>89) 5 ML/MIN (>89) Result Diagram: 02/03/18 0500 02/03/18 0500 Imaging Last Impressions GI Bleed Scan Nuclear Medicine 02/01/18 0000 Signed Impressions: CONCLUSION: 1. No active GI bleeding Chest X-Ray 02/01/18 0000 Signed Impressions: CONCLUSION: Mild cardiomegaly again noted with no evidence of pulmonary edema. Procedures 02/03/18- upper endoscopy with biopsy . Patient/Family Conference Family Conference Location: Bedside Issues Discussed: * Palliative care role, purpose, approach * Additional medical, psychosocial, and spiritual history * Patients general health, functional status, and cognitive changes in the months leading up to the current hospitalization * Patient/family understanding of the current medical problems * Patient/family understanding of prognosis * Patients goals of care as best understood from advance directives and/or conversations and/or values * Current medical treatment options and benefits/burdens of those options * Likely scenarios comparing ongoing aggressive care with a transition to comfort measures only * Questions answered to the best of my ability * Palliative care contact information provided Assessment and Plan Disease Oriented Problem List: (1) GI bleed (2) ESRD (end stage renal disease) on dialysis (3) Diabetes mellitus (4) Diabetic nephropathy (5) Hypertension (6) Hypothyroidism (7) Nocturnal hypoxia (8) GERD (gastroesophageal reflux disease) (9) Depression Symptom Scale: (1) Pain Comment: Patient has been complaining of left lower abdominal pain. . (2) Debility 0-10 Scale: Unable to quantify (Progressive) Pertinent Non-Medical Issues Psychosocial:Patient has 4 adult children and she lives with her daughter, who is also a healthcare surrogate decision maker. Spiritual: Patient is Mandaeism Legal: Completed and signed a healthcare surrogate form. Ethical issues impacting care: None identified at this time . Important Contacts Daughter-Isabella Chiu [phone] . Prognosis Ms. Bolivar is a 72-year-old female with a past medical history significant for end-stage renal disease on hemodialysis, diabetes mellitus, hypertension, history of GI bleed, hypothyroidism, hepatitis C, and depression. Patient presented to the ER on 01/31/18 after she received a call from dialysis center notifying her that she had low hemoglobin and needed to go to the emergency room to be further evaluated. Patient has been declining to have GI workup. Given ongoing multiple comorbidities, patient remains at high risk for further complications, deterioration and decline. . Code Status: Full Code Plan PLAN: Legal decision maker: Patient is able to participate in making medical decisions. In the event that she is incapacitated, patient's daughter Isabella Chiu will save is his healthcare surrogate and the other daughter Carli Chiu will serve as his healthcare proxy Goals: Aggressive-patient mentioned that she wants everything done to save her although she mentions that she will not undergo colonoscopy because she does not want to take the prep for the procedure. CODE STATUS: Full code Patient seen and examined in the room in [facility] after hemodialysis. Patient is alert, oriented to self, place and situation. Patient is not very cooperative during visit. She is complaining that she is feeling cold and she does not want to talk at this time. Patient is also frustrated because she states that she did not eat anything all day. CODE STATUS addressed, patient angry that everybody keeps asking "that same question" and she has not changed her mind. Patient states she wants everything done to keep her alive although she mentions that she will not undergo colonoscopy because she does not want to take the prep for the procedure. Patient said," I will not drink that nasty stuff, and i don`t care what you say, i wont". Patient mentioning that she wants to go home today and if not possible tomorrow. Patient did confirm that in the event that she is incapacitated she would want her daughter daughter Isabella Chiu to serve as her healthcare surrogate and her other daughter Carli Chiu to serve as her alternate healthcare surrogate. Patient very dismissive during visit. SYMPTOMS: * Pain: Patient has been complaining of left lower abdominal pain. Patient currently denies pain. Patient has oxycodone 5/325 every 6 HRS PRN pain * Debility: Progressive. Patient is status post right lower extremity BKA. Patient is bed to wheelchair bound. She has had a few hospitalizations this year. Patient may benefit from physical therapy consult if goals remain aggressive. == Patient not very cooperative today. Palliative care will continue following with patient during her hospitalization to further clarify goals of care since she is refusing to undergo diagnostic procedures though she mentions that she wants everything done to keep her alive. Palliative care will continue to follow the patient during hospital course as condition evolves, to assist patient/decision-maker with understanding of their medical conditions, weighing benefits/burdens of treatment options, for clarification of goals of treatment. Additionally will assist with any symptoms of palliative concern Thank you for the opportunity to participate in the care of Ms. Bolivar. Attestation To help prompt me to consider important information that might be impacting today's encounter and assessment, information from prior notes written by myself or my colleagues may have been "brought forward" into today's note. My signature on this note, however, is an attestation that I personally performed the exam, history, and/or decision-making noted today, and, unless otherwise indicated, the interactions with patient, family, and staff as well as the review of records all occurred today. I also attest that the listed assessment and stated plan reflect my best clinical judgment today based on the combination of historical information, prior notes, and today's exam/ interactions. When time spent is documented, it refers only to time spent today by the signer, or if indicated, combined time spent today by collaborating physician/nurse practitioner. Yadi Johnson Feb 03, 2018 11:39
[2018-02-03] MEDS ORDERED: ePHEDrine/NS 25 MG/5 ML SYRINGE IV ONE (12:00)
[2018-02-03] MEDS ORDERED: PHENYLEPH/NS 1000 MCG/10 ML SYR IV ONE (12:00)
--- NOTE | 2018-02-03 13:11 | GIPROC ---
[facility] [address] [facility]. [facility], [address] EGD PROCEDURE REPORT EXAM DATE: 02/03/2018 PATIENT NAME: Anel Bolivar MR #: [id number] BIRTHDATE: 1945 ATTENDING: Marina Baugh MD ORDER #: [id number] [employer] SUPERVISOR: Cassy Victoria STATUS: inpatient INDICATIONS: The patient is a 72 yr old female here for an EGD due to anemia, gi bleeding PROCEDURE PERFORMED: EGD w/ biopsy MEDICATIONS: None and Per Anesthesia. TOPICAL ANESTHETIC: none CONSENT: The patient understands the risks and benefits of the procedure and understands that these risks include, but are not limited to: sedation, allergic reaction, infection, perforation and/or bleeding. Alternative means of evaluation and treatment include, among others: physical exam, x-rays, and/or surgical intervention. The patient elects to proceed with this endoscopic procedure. medical equipment was checked for proper function. Hand hygiene and appropriate measures for infection prevention was taken. After the risks, benefits and alternatives of the procedure were thoroughly explained, Informed consent was verified, confirmed and timeout was successfully executed by the treatment team. The patient was anesthetized with topical anesthesia and the [id number] (Pedi C) endoscope was introduced through the mouth and advanced to the second portion of the duodenum. Retroflexed views revealed a hiatal hernia The gastroscope was then slowly withdrawn and removed. Gastritis antrum-biopsy 100 cc of bile suctioned. ADVERSE EVENTS: There were no complications. IMPRESSIONS: 1. Gastritis antrum-biopsy 100 cc of bile suctioned 2. Retroflexed views revealed a hiatal hernia RECOMMENDATIONS: 1. Await biopsy results. Biopsy results will not be ready for 7-10 days. If you don't hear from us in two weeks, call our office for biopsy results. 2. Anti-reflux regimen 3. Continue PPI 4. Capsule endoscopy op PATIENT CONDITION: stable DISPOSITION: Inpatient REPEAT EXAM: NONE Marina Baugh MD eSigned: Marina Baugh MD 02/03/2018 1:11 PM cc:
[2018-02-03] MEDS ORDERED: DO NOT ADM ANY ANTICOAGULANT DRUGS PRN (13:18)
--- NOTE | 2018-02-03 15:14 | HHI.NPPN ---
Subjective Additional Remarks no acute complaints, ongoing blood in stool Objective Data Data Vital Signs Date Time Temp Pulse Resp B/P (MAP) Pulse Ox O2 Delivery O2 Flow Rate FiO2 02/03/18 13:40 98.0 77 16 170/78 (108) 94 Nasal Cannula 3 02/03/18 13:30 77 16 170/78 (108) 94 Nasal Cannula 3 02/03/18 13:18 98.0 75 16 175/73 (107) 94 Nasal Cannula 3 02/03/18 09:43 100 Nasal Cannula 2.00 02/03/18 08:00 75.0 75 14 153/67 (95) 96 02/03/18 04:00 98.8 71 19 171/72 (105) 93 02/03/18 00:02 98.3 72 17 124/61 (82) 100 02/02/18 20:00 98.7 72 36 129/60 (83) 94 02/02/18 16:00 99.0 69 26 129/63 (85) 93 -: 02/03/18 0500 02/03/18 0500 Physical Exam General Appearance: Well Developed, Well Nourished, No Acute Distress Throat Throat Exam: Oral Mucosa [place] & Moist Neck Neck Exam: Neck Supple Pulmonary Resp Exam: Clear Bilaterally, Decreased Bases Cardiology CV Exam: Regular, Normal Sinus Rhythm Gastrointestinal/Abdomen GI Exam: Soft, Non-Tender, Bowel Sounds Present Musculoskeletal MS Exam: Joints Intact Integumentary Skin Exam: Warm, Dry, Intact Extremeties Extremities Exam: No Edema Neurologic Neuro Exam: Alert, Awake, Oriented, Speech Clear Psychiatric Psych Exam: Appropriate Responses Assessment/Plan Problem List: (1) ESRD (end stage renal disease) on dialysis ICD Codes: N18.6 - End stage renal failure on dialysis; Z99.2 - Dependence on renal dialysis Status: Chronic Plan: Outpatient MWF HD with Dr. Greene. sent here after treatment for anemia on labs. Continue MWF HD - HD progress noted seen during treatment UF 3 L on 2 K bath tolerating it well EGD done biopsy taken hiatal hernia Volume status, electrolytes stable. (2) GI bleed ICD Codes: K92.2 - Gastrointestinal hemorrhage, unspecified Status: Acute Plan: Hgb 5.9 -> 8.4 s/p 2U PRBCs Negative bleeding scan History of previous GI bleeds and left colectomy for bleeding. For EGD tomorrow, follow with GI. (3) Hypertension ICD Codes: I10 - Hypertension Status: Chronic Plan: continue meds (4) Hypothyroidism ICD Codes: E03.9 - Hypothyroidism Status: Chronic Plan: continue meds Problem Qualifiers (1) GI bleed: Qualified Codes: K92.2 - Gastrointestinal hemorrhage, unspecified Kandi Castanon MD Feb 03, 2018 15:14
[2018-02-03] MEDS: EPOETIN ALFA 10,000 UNITS/ML VIAL IV PUSH PRN (15:23)
[2018-02-03] MEDS: MIRTAZAPINE 15 MG TAB PO SCH (22:52)
[2018-02-04] VITALS (8 sets, daily range): BP systolic 124–161; BP diastolic 58–79; PULSE 68–87; RESP 12–20; TEMP 98.1–98.8; O2SAT 95–100
[2018-02-04] MEDS: LEVOTHYROXINE SODIUM 88 MCG TAB PO SCH (06:24)
[2018-02-04] MEDS: INSULIN ASPART SUPPLEMENTAL SCALE SQ SCH ×4 (08:00→21:00)
--- NOTE | 2018-02-04 09:10 | RADRPT ---
EXAM DATE: 02/04/2018 8:56 AM EDT AGE/SEX: 72 years / Female INDICATIONS: Fever. CLINICAL DATA: This is the patient's subsequent encounter. Patient reports that signs and symptoms h ave been present for 1 day and indicates a pain score of 0/10. MEDICAL/SURGICAL HISTORY: Diabetes mellitus type II. None. COMPARISON: [facility], CHEST SINGLE AP, 09/26/2017. . FINDINGS: Mild diffuse interstitial prominence. No new focal pleural or parenchymal opacities. Cardiac silhouet te is enlarged. Bony thorax is intact. CONCLUSION: 1. Compensated cardiomegaly. 2. No acute abnormality or significant interval change. Electronically signed by: Flaco Santoro MD 02/04/2018 9:09 AM EDT
[2018-02-04] MEDS: CARVEDILOL 12.5 MG TAB PO SCH ×2 (09:49→21:58)
[2018-02-04] MEDS: oxyCODONE/ACETAMINOPHEN 5 MG/325 MG TAB PO PRN ×2 (09:49→22:05)
[2018-02-04] MEDS: SODIUM CHLORIDE 0.9% FLUSH 10 ML FLUSH IV FLUSH SCH ×2 (09:51→21:58)
--- NOTE | 2018-02-04 09:57 | HHI.FPPN ---
Subjective Remarks Patient has a temp of 101.5 around 20:00 overnight. Blood cultures ordered. Repeat CXR demonstrates cardiomegaly but no acute abnormality. Patient still states that she has left lower abdominal pain, unchanged from admission. Will obtain a CT scan with contrast this morning for possible diverticulitis. Patient is very adamant about going home. Informed patient that since she had a fever she will possibly need to stay another 24 hours. She reports that she might leave AMA. EGD done yesterday, demonstrated gastritis, biopsy from the antrum pending Patient has no other complaints today, she denies chest pain, shortness of breath, nausea vomiting, and diarrhea. Patient currently on 3 L nasal cannula. She states that she is on oxygen at home for COPD. Currently does not smoke. (Dee Dee Viera MD R1) Objective Vitals Vital Signs Date Time Temp Pulse Resp B/P (MAP) Pulse Ox O2 Delivery O2 Flow Rate FiO2 02/04/18 09:53 74 152/69 (96) 02/04/18 08:18 96 Nasal Cannula 3.00 02/04/18 08:00 98.8 77 14 156/67 (96) 95 02/04/18 04:00 98.5 75 20 124/58 (80) 97 02/04/18 00:11 19 02/04/18 00:00 98.4 87 12 149/66 (93) 97 02/03/18 20:00 101.5 93 14 173/74 (107) 97 02/03/18 19:35 100 Nasal Cannula 3.00 02/03/18 17:15 98.6 92 20 198/86 (123) 100 02/03/18 13:40 98.0 77 16 170/78 (108) 94 Nasal Cannula 3 02/03/18 13:30 77 16 170/78 (108) 94 Nasal Cannula 3 02/03/18 13:18 98.0 75 16 175/73 (107) 94 Nasal Cannula 3 I/O 02/03/18 02/03/18 02/03/18 02/04/18 02/04/18 02/04/18 07:00 15:00 23:00 07:00 15:00 23:00 Intake Total 860 ml 400 ml 360 ml 480 ml Output Total 3000 ml Balance 860 ml 400 ml -2640 ml 480 ml Intake Oral 860 ml 360 ml 480 ml Other 400 ml Hemodialysis 3000 ml # Bowel Movements 1 (Dee Dee Viera MD R1) Result Diagram: 02/03/18 0500 02/03/18 0500 Objective Remarks GENERAL: very thin elderly female, in NAD CARDIOVASCULAR: Regular rate and rhythm without murmurs, gallops, or rubs. RESPIRATORY: Clear to auscultation. Breath sounds equal bilaterally. No wheezes , rales, or rhonchi. Currently on 2L NC. GASTROINTESTINAL: Abdomen soft, mild tenderness to palpation of left upper quadrant, nondistended. No hepato-splenomegaly, or palpable masses. No guarding. MUSCULOSKELETAL: Left extremity without clubbing, cyanosis, or edema. No joint tenderness, effusion, or edema noted. No calf tenderness. 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 NEUROLOGICAL: AAOx3. normal speech. (Dee Dee Viera MD R1) A/P Assessment and Plan Patient is a 72-year-old female with significant past medical history of prior GI bleed, ESRD (on dialysis MWF), DM and HTN presenting with: Discharge Planning Pending clinical improvement Blood cultures pending Patient states that she is on oxygen at home for COPD Anticipate discharge in 1-2 days (Dee Dee Viera MD R1) Attending Attestation Patient seen and examined with Dr Iza Viera EMR reviewed Agree with contents of above note Decision making discussed in detail with Dr Viera See Orders (Bigg Wiseman MD) Problem List: (1) Fever ICD Codes: R50.9 - Fever, unspecified Status: Acute Plan: Patient had fever of 101.5 around 20:00 overnight. CBC pending this AM Blood cultures x2 ordered CT scan of abd/pelvis with contrast for possible diverticulitis pending, if positive will start patient on renally dose Flagyl and Cipro CXR negative for acute abnormality (2) GI bleed ICD Codes: K92.2 - Gastrointestinal hemorrhage, unspecified Status: Acute Plan: Patient with asymptomatic anemia found to have hemoglobin of 6.9 a decrease from her baseline of 8. Tender to palpation of LUQ on abdominal exam. In the ED patient was found to have a positive Hemoccult stool sample and was given Protonix 40mg IV1 Patient has complicated history of GI bleed in July 2017 and sep 2017 requiring transfusion of 7 units of packed red blood cells during at last hospitalization and resection of colon for bleeding in transverse colon. s/p left colectomy and low anterior anastomosis by Dr. De La Cruz on 09/18/17. She follows with Dr. De La Cruz and saw him 1 month ago. EGD on 07/2017: Normal esophagus except for mild to mod Schatzki ring and moderate size hiatal hernia. However, gastric mucosa was unremarkable and within normal limits. IR procedure: Celiac, SMA, and GERARDO angiography to evaluate acute LGIB felt to be arising form transverse colon. Angio shows no source of hemorrhage or abnormal vessel/AVM. No embolization performed. Colonoscopy done in 10/2017 showed: Evidence of prior colorectal colonic surgical anastomosis in the sigmoid colon. Medium sized nonbleeding ulcer found at the anastomosis site biopsies taken showed no significant histopathologic abnormality negative for epithelial polyp. s/p 2 units of RBC on 02/02/18, Hb increased to 8.4 post transfusin, Hb pending today, continue to monitor GI and vascular surgery consulted, appreciate recommendations -Surgery not indicated at this time, patient did not tolerate last surgery well per Dr. De La Cruz -GI bleed scan negative for active GI bleeding -Protonix switch from IV to PO 40mg BID -EGD 02/03 demonstrated gastritis, biopsy of antrum was taken, await results, results will not be ready for 7-10 days (3) ESRD (end stage renal disease) on dialysis ICD Codes: N18.6 - End stage renal failure on dialysis; Z99.2 - Dependence on renal dialysis Status: Chronic Plan: Hemodialysis schedule: Electrolytes within normal limits Patient does not make any urine Nephrology consulted, appreciate recommendations, she received dialysis Saturday -continue dialysis per regular schedule -Patient to follow-up with Dr. Greene as an outpatient (4) Hypertension ICD Codes: I10 - Hypertension Status: Chronic Plan: Continue home amlodipine and coreg Clonidine0.1mg PO RPN for BP >180/100 (5) Diabetes mellitus ICD Codes: E11.9 - Type 2 diabetes mellitus without complications Status: Chronic Plan: Blood sugars 70, 262, 137, 132, no units administered over the past 24 hours Patient placed on low SS Hypoglycemia protocol (6) Hypothyroidism ICD Codes: E03.9 - Hypothyroidism Status: Chronic Plan: C/w levothyroxine 88mcg QD (7) Depression ICD Codes: F32.9 - Depression Status: Chronic Plan: Continue with mirtazapine 30mg HS (8) Insomnia ICD Codes: G47.00 - Insomnia Status: Chronic Plan: Ambien 5 mg as needed (9) Phantom limb pain ICD Codes: G54.6 - Phantom limb syndrome with pain Status: Chronic Plan: Patient is status post [id number] amputation of right lower extremity on 09/28/17. c/w percocet 5mg for pain (10) Nutrition, metabolism, and development symptoms ICD Codes: R63.8 - Other symptoms and signs concerning food and fluid intake Status: Acute Plan: Fluids: None Electrolytes: Replete as needed per nephrology recommendations Nutrition: regular diet DVT prophylaxis: Contraindicated GI prophylaxis: Protonix twice daily (Dee Dee Viera MD R1) Problem Qualifiers (1) GI bleed: Qualified Codes: K92.2 - Gastrointestinal hemorrhage, unspecified Dee Dee Viera MD R1 Feb 04, 2018 09:57 Bigg Wiseman MD Feb 05, 2018 07:23
[2018-02-04 10:58] LABS: HEMATOCRIT 27.6 % (35.0-46.0); HEMOGLOBIN 8.8 GM/DL (11.6-15.3); MEAN CELL VOLUME 84.1 FL (80.0-100.0); MEAN CORPUSCULAR HEMOGLOBIN 26.7 PG (27.0-34.0); MEAN CORPUSCULAR HGB CONC 31.8 % (32.0-36.0); PLATELET COUNT 294 TH/MM3 (150-450); RED BLOOD COUNT 3.29 MIL/MM3 (4.00-5.30); RED CELL DISTRIBUTION WIDTH 19.3 % (11.6-17.2); WHITE BLOOD COUNT 10.1 TH/MM3 (4.0-11.0)
[2018-02-04] MEDS ORDERED: DIATRIZOATE MEGLUM/DIATRIZOATE SOD 9 ML CUP PO ONE (11:00)
[2018-02-04 11:40] LABS: BICARBONATE 26.9 MEQ/L (21.0-32.0); CALCIUM 8.5 MG/DL (8.5-10.1); CREATININE 6.62 MG/DL (0.50-1.00)
--- NOTE | 2018-02-04 15:06 | HHI.GIFU ---
Subjective Remarks Pt is sitting up in bed watching TV and eating a snack. Denies nausea, vomiting , abd pain, melena or hematochezia. Not very cooperative during exam. Objective Vitals I&O Vital Signs Date Time Temp Pulse Resp B/P (MAP) Pulse Ox O2 Delivery O2 Flow Rate FiO2 02/04/18 12:00 98.3 73 20 154/68 (96) 100 02/04/18 09:53 74 152/69 (96) 02/04/18 08:18 96 Nasal Cannula 3.00 02/04/18 08:00 98.8 77 14 156/67 (96) 95 02/04/18 04:00 98.5 75 20 124/58 (80) 97 02/04/18 00:11 19 02/04/18 00:00 98.4 87 12 149/66 (93) 97 02/03/18 20:00 101.5 93 14 173/74 (107) 97 02/03/18 19:35 100 Nasal Cannula 3.00 02/03/18 17:15 98.6 92 20 198/86 (123) 100 I/O 02/03/18 02/03/18 02/03/18 02/04/18 02/04/18 02/04/18 06:59 14:59 22:59 06:59 14:59 22:59 Intake Total 860 ml 400 ml 360 ml 480 ml Output Total 3000 ml Balance 860 ml 400 ml -2640 ml 480 ml Intake Oral 860 ml 360 ml 480 ml Other 400 ml Hemodialysis 3000 ml # Bowel Movements 1 Laboratory Laboratory Tests Test 02/04/18 10:13 White Blood Count 10.1 Red Blood Count 3.29 Hemoglobin 8.8 Hematocrit 27.6 Mean Corpuscular Volume 84.1 Mean Corpuscular Hemoglobin 26.7 Mean Corpuscular Hemoglobin Concent 31.8 Red Cell Distribution Width 19.3 Platelet Count 294 Mean Platelet Volume 9.0 Blood Urea Nitrogen 48 Creatinine 6.62 Random Glucose 121 Calcium Level 8.5 Sodium Level 137 Potassium Level 4.2 Chloride Level 98 Carbon Dioxide Level 26.9 Anion Gap 12 Estimat Glomerular Filtration Rate 7 Date/Time Source Procedure Growth Status 02/04/18 10:13 Blood Peripheral Aerobic Blood Culture Pending Received 02/04/18 10:13 Blood Peripheral Anaerobic Blood Culture Pending Received Imaging Last Impressions Chest X-Ray 02/04/18 0000 Signed Impressions: CONCLUSION: 1. Compensated cardiomegaly. 2. No acute abnormality or significant interval change. GI Bleed Scan Nuclear Medicine 02/01/18 0000 Signed Impressions: CONCLUSION: 1. No active GI bleeding Physical Exam HEENT: Frail, normocephalic; atraumatic; NECK: Neck is supple, CHEST: Nonlabored CARDIAC: Heart rate controlled ABDOMEN: Soft, nondistended, nontender to light palpation bowel sounds are present in all four quadrants. EXTREMITIES: No clubbing, cyanosis, or edema. SKIN: Dry and intact [employer]: Alert and oriented Assessment and Plan Plan - Acute on chronic anemia- Likely multifactorial anemia of chronic dz and GI bleed. hemoglobin of 6.9 on recent lab results. This is a drop from base line 8. Patient noticed dark blood in her stool on Saturday however non since. Refused to answer how much and how many times. Denies any nausea, vomiting, hematemesis, abd pain, dizziness, lightheadedness, or chest pain. Patient has complicated history of GI bleed in July 2017 and Aug/sep 2017 requiring blood transfusion and resection of colon for bleeding in transverse colon. s/p left colectomy and low anterior anastomosis by Dr. De La Cruz on 09/18/17. She follows with Dr. De La Cruz and saw him 1 month ago. EGD 10/14/17 --> Normal esophagus. Food residue in the entire examined stomach. Normal duodenum. Retroflex view limited due to food. Colonoscopy 10/14/17 --> Evidence of prior colonic surgical anastomosis in sigmoid colo-colon. Medium sized non-bleeding ulcer at anastomosis site, biopsy showed fibrinopurulent exudate consistent with an ulcer. Patient wasn't very cooperative during the exam, stating wants to be left alone and she is not having another colonoscopy done. - ESRD (on dialysis MWF), DM and HTN per attending 02/02/2018 GI bleeding scan shows no active bleeding. Currently patient denies any nausea or vomiting and no abdominal pain. Today patient is still refusing colonoscopy but will allow endoscopy. Scheduled for a.m. Current labs show hemoglobin 8.4, INR 1.1. 02/04/18 hh stable, no bleeding. Refused colonoscopy. S/P EGD on 02/03/18 ---> Gastritis antrum-biopsy, 100 cc of bile suctioned Retroflexed views revealed a hiatal hernia, bx pending bleeding scan 02/01/18 negative. She had fever over night, CT ordered by attending. Plans: -Diet - Await bx - CE as an OP - Await CT of A/P - PPI -Monitor labs -Supportive care Pt is seen and examined by Dr. Baugh and myself and this note is written on her behalf. Hudson Jiang Feb 04, 2018 15:05
--- NOTE | 2018-02-04 17:01 | HHI.NPPN ---
Subjective Additional Remarks no acute complaints, Objective Data Data Vital Signs Date Time Temp Pulse Resp B/P (MAP) Pulse Ox O2 Delivery O2 Flow Rate FiO2 02/04/18 12:00 98.3 73 20 154/68 (96) 100 02/04/18 09:53 74 152/69 (96) 02/04/18 08:18 96 Nasal Cannula 3.00 02/04/18 08:00 98.8 77 14 156/67 (96) 95 02/04/18 04:00 98.5 75 20 124/58 (80) 97 02/04/18 00:11 19 02/04/18 00:00 98.4 87 12 149/66 (93) 97 02/03/18 20:00 101.5 93 14 173/74 (107) 97 02/03/18 19:35 100 Nasal Cannula 3.00 02/03/18 17:15 98.6 92 20 198/86 (123) 100 -: 02/04/18 1013 02/04/18 1013 Microbiology 02/04/18 Aerobic Blood Culture, Received Pending 02/04/18 Anaerobic Blood Culture, Received Pending 02/04/18 Aerobic Blood Culture, Received Pending 02/04/18 Anaerobic Blood Culture, Received Pending Physical Exam General Appearance: Well Developed, Well Nourished, No Acute Distress Throat Throat Exam: Oral Mucosa [place] & Moist Neck Neck Exam: Neck Supple Pulmonary Resp Exam: Clear Bilaterally, Decreased Bases Cardiology CV Exam: Regular, Normal Sinus Rhythm Gastrointestinal/Abdomen GI Exam: Soft, Non-Tender, Bowel Sounds Present Musculoskeletal MS Exam: Joints Intact Integumentary Skin Exam: Warm, Dry, Intact Extremeties Extremities Exam: No Edema Neurologic Neuro Exam: Alert, Awake, Oriented, Speech Clear Psychiatric Psych Exam: Appropriate Responses Assessment/Plan Problem List: (1) ESRD (end stage renal disease) on dialysis ICD Codes: N18.6 - End stage renal failure on dialysis; Z99.2 - Dependence on renal dialysis Status: Chronic Plan: Outpatient MWF HD with Dr. Greene. sent here after treatment for anemia on labs. Continue MWF HD - HD yesterday UF 3 L EGD done biopsy taken hiatal hernia Volume status, electrolytes stable. next HD in am (2) GI bleed ICD Codes: K92.2 - Gastrointestinal hemorrhage, unspecified Status: Acute Plan: Hgb 5.9 -> 8.4 s/p 2U PRBCs Negative bleeding scan History of previous GI bleeds and left colectomy for bleeding. For EGD tomorrow, follow with GI. (3) Hypertension ICD Codes: I10 - Hypertension Status: Chronic Plan: continue meds (4) Hypothyroidism ICD Codes: E03.9 - Hypothyroidism Status: Chronic Plan: continue meds Problem Qualifiers (1) GI bleed: Qualified Codes: K92.2 - Gastrointestinal hemorrhage, unspecified Kandi Castanon MD Feb 04, 2018 17:00
--- NOTE | 2018-02-04 17:27 | HHI.HCPN ---
Reason for visit a. To assist with evaluation and management of symptoms including:Pain, Debility b. To assist medical decision maker(s) with: better understanding of current medical conditions; weighing benefits/burdens of medical treatment options; making medical treatment decisions. Subjective/Interval History Follow-up medically necessary to assist with symptom management and further clarification by goals of care. Patient seen and examined in the room on [facility]. Patient is currently receiving a bath. Patient is alert, oriented to self, place and situation. Patient endorsing phantom pain to the right lower extremity. Pain is managed with oxycodone/acetaminophen 5/325 every 6 hours prn and patient his required 3 doses in the past 24 hours. Vital signs stable. EGD on 02/03/18 showed gastritis, biopsy from the antrum pending. Laboratory workup today revealing WBC 10.1, hemoglobin 8.8, hematocrit 27.6, platelet count 294, potassium 4.2, BUN/creatinine 40/6.62, random glucose 121, calcium 8.5. Chest x-ray today revealing compensated cardiomegaly with no acute abnormality or significant interval change. Patient is scheduled to go for CT abdomen/pelvis to rule out diverticulitis. Patient appears to be in a better mood today. She stated that she was able to drink the contrast because the bedside nurse mixed it with lemonade. Patient stated that she has no problem undergoing colonoscopy, her only problem is drinking the prep and if it was mixed in something like the crystal light lemonade she would try to drink it. Patient`s goals of care remain aggressive. She mentions that she is willing to do anything that will keep her alive except drinking the prep for colonoscopy. . Family/friend interactions No family at bedside . Advance Directives Health Care Surrogate: Copy in medical record Advance Directive Specifics Date completed: [facility]-10/11/17 . Health Care Surrogate(s): [facility]- Daughter- Isabella Chiu [phone] Alternate [facility]- daughter, Carli Chiu . Objective Vital Signs Date Time Temp Pulse Resp B/P (MAP) Pulse Ox O2 Delivery O2 Flow Rate FiO2 02/04/18 12:00 98.3 73 20 154/68 (96) 100 02/04/18 09:53 74 152/69 (96) 02/04/18 08:18 96 Nasal Cannula 3.00 02/04/18 08:00 98.8 77 14 156/67 (96) 95 02/04/18 04:00 98.5 75 20 124/58 (80) 97 02/04/18 00:11 19 02/04/18 00:00 98.4 87 12 149/66 (93) 97 02/03/18 20:00 101.5 93 14 173/74 (107) 97 02/03/18 19:35 100 Nasal Cannula 3.00 02/03/18 17:15 98.6 92 20 198/86 (123) 100 Intake & Output 02/04/18 02/04/18 07:00 19:00 Intake Total 480 ml Balance 480 ml Intake Oral 480 ml Physical Exam CONSTITUTIONAL/GENERAL: This is an elderly adequately nourished patient, complaining of phantom pain to the right lower extremity TUBES/LINES/DRAINS: PIV, NC SKIN: No jaundice, rashes, or lesions. Skin intact to visible areas, cool and dry. HEAD: Atraumatic. Normocephalic. EYES: Pupils equal and round and reactive. Extraocular motions intact. No scleral icterus. No injection or drainage. Fundi not examined. ENT: Hearing grossly normal. Nose without bleeding or purulent drainage. CARDIOVASCULAR: Regular rate and rhythm without murmurs, gallops, or rubs. No JVD. Peripheral pulses symmetric. RESPIRATORY/CHEST: unlabored respirations. Clear to auscultation. No wheezes, rales, or rhonchi. GASTROINTESTINAL: Abdomen soft, non-tender, nondistended. No hepato-splenomegaly , or palpable masses. No guarding. Bowel sounds present. GENITOURINARY: Without palpable bladder distension. MUSCULOSKELETAL: Left lower extremities without clubbing, cyanosis, or edema. RLE BKA NEUROLOGICAL: Awake and alert, oriented to self, place and situation. Motor and sensory grossly within normal limits. Following simple commands. Moves all extremities. PSYCHIATRIC: No obvious anxiety/depression. no apparent hallucinations or other psychotic thought process. Diagnostic Tests Laboratory Laboratory Tests Test 02/01/18 18:48 02/01/18 20:12 02/02/18 04:50 02/03/18 05:00 Hepatitis A IgM Antibody NONREACTIVE (NONREACTIVE) Hepatitis B Surface Antigen NONREACTIVE (NONREACTIVE) Hepatitis B Core IgM Antibody NONREACTIVE (NONREACTIVE) Hepatitis C IgG Antibody NONREACTIVE (NONREACTIVE) Hemoglobin 9.0 GM/DL (11.6-15.3) 8.4 GM/DL (11.6-15.3) 8.7 GM/DL (11.6-15.3) Hematocrit 28.1 % (35.0-46.0) 25.7 % (35.0-46.0) 26.9 % (35.0-46.0) White Blood Count 8.4 TH/MM3 (4.0-11.0) 9.4 TH/MM3 (4.0-11.0) Red Blood Count 3.12 MIL/MM3 (4.00-5.30) 3.24 MIL/MM3 (4.00-5.30) Mean Corpuscular Volume 82.4 FL (80.0-100.0) 83.1 FL (80.0-100.0) Mean Corpuscular Hemoglobin 27.0 PG (27.0-34.0) 27.0 PG (27.0-34.0) Mean Corpuscular Hemoglobin Concent 32.8 % (32.0-36.0) 32.4 % (32.0-36.0) Red Cell Distribution Width 18.7 % (11.6-17.2) 19.1 % (11.6-17.2) Platelet Count 296 TH/MM3 (150-450) 305 TH/MM3 (150-450) Mean Platelet Volume 9.1 FL (7.0-11.0) 9.1 FL (7.0-11.0) Neutrophils (%) (Auto) 55.0 % (16.0-70.0) Lymphocytes (%) (Auto) 18.9 % (9.0-44.0) Monocytes (%) (Auto) 12.9 % (0.0-8.0) Eosinophils (%) (Auto) 12.6 % (0.0-4.0) Basophils (%) (Auto) 0.6 % (0.0-2.0) Neutrophils # (Auto) 4.6 TH/MM3 (1.8-7.7) Lymphocytes # (Auto) 1.6 TH/MM3 (1.0-4.8) Monocytes # (Auto) 1.1 TH/MM3 (0-0.9) Eosinophils # (Auto) 1.1 TH/MM3 (0-0.4) Basophils # (Auto) 0.1 TH/MM3 (0-0.2) CBC Comment DIFF FINAL Differential Comment Blood Urea Nitrogen 66 MG/DL (7-18) 78 MG/DL (7-18) Creatinine 7.06 MG/DL (0.50-1.00) 8.75 MG/DL (0.50-1.00) Random Glucose 184 MG/DL (74-106) 139 MG/DL (74-106) Calcium Level 7.8 MG/DL (8.5-10.1) 7.8 MG/DL (8.5-10.1) Sodium Level 139 MEQ/L (136-145) 137 MEQ/L (136-145) Potassium Level 4.2 MEQ/L (3.5-5.1) 5.2 MEQ/L (3.5-5.1) Chloride Level 102 MEQ/L (98-107) 101 MEQ/L (98-107) Carbon Dioxide Level 22.2 MEQ/L (21.0-32.0) 20.4 MEQ/L (21.0-32.0) Anion Gap 15 MEQ/L (5-15) 16 MEQ/L (5-15) Estimat Glomerular Filtration Rate 7 ML/MIN (>89) 5 ML/MIN (>89) Test 02/04/18 10:13 White Blood Count 10.1 TH/MM3 (4.0-11.0) Red Blood Count 3.29 MIL/MM3 (4.00-5.30) Hemoglobin 8.8 GM/DL (11.6-15.3) Hematocrit 27.6 % (35.0-46.0) Mean Corpuscular Volume 84.1 FL (80.0-100.0) Mean Corpuscular Hemoglobin 26.7 PG (27.0-34.0) Mean Corpuscular Hemoglobin Concent 31.8 % (32.0-36.0) Red Cell Distribution Width 19.3 % (11.6-17.2) Platelet Count 294 TH/MM3 (150-450) Mean Platelet Volume 9.0 FL (7.0-11.0) Blood Urea Nitrogen 48 MG/DL (7-18) Creatinine 6.62 MG/DL (0.50-1.00) Random Glucose 121 MG/DL (74-106) Calcium Level 8.5 MG/DL (8.5-10.1) Sodium Level 137 MEQ/L (136-145) Potassium Level 4.2 MEQ/L (3.5-5.1) Chloride Level 98 MEQ/L (98-107) Carbon Dioxide Level 26.9 MEQ/L (21.0-32.0) Anion Gap 12 MEQ/L (5-15) Estimat Glomerular Filtration Rate 7 ML/MIN (>89) Result Diagram: 02/04/18 1013 02/04/18 1013 Microbiology Microbiology Date/Time Source Procedure Growth Status 02/04/18 10:13 Blood Peripheral Aerobic Blood Culture Pending Received 02/04/18 10:13 Blood Peripheral Anaerobic Blood Culture Pending Received 02/04/18 10:08 Blood Peripheral Aerobic Blood Culture Pending Received 02/04/18 10:08 Blood Peripheral Anaerobic Blood Culture Pending Received Imaging Last 24 hours Impressions Chest X-Ray 02/04/18 0000 Signed Impressions: CONCLUSION: 1. Compensated cardiomegaly. 2. No acute abnormality or significant interval change. Procedures 02/03/18- upper endoscopy with biopsy . Assessment and Plan Disease Oriented Problem List: (1) GI bleed (2) ESRD (end stage renal disease) on dialysis (3) Diabetes mellitus (4) Diabetic nephropathy (5) Hypertension (6) Hypothyroidism (7) Nocturnal hypoxia (8) GERD (gastroesophageal reflux disease) (9) Depression Symptom Scale: (1) Pain 0-10 Scale: Unable to quantify Comment: Patient has been complaining of left lower abdominal pain. Patient complaining of phantom pain to right lower extremity . (2) Debility 0-10 Scale: Unable to quantify (Progressive) Pertinent Non-Medical Issues Psychosocial:Patient has 4 adult children and she lives with her daughter, who is also a healthcare surrogate decision maker. Spiritual: Patient is Amish Legal: Completed and signed a healthcare surrogate form. Ethical issues impacting care: None identified at this time . Important Contacts Daughter-Isabella Chiu [phone] . Prognosis Ms. Bolivar is a 72-year-old female with a past medical history significant for end-stage renal disease on hemodialysis, diabetes mellitus, hypertension, history of GI bleed, hypothyroidism, hepatitis C, and depression. Patient presented to the ER on 01/31/18 after she received a call from dialysis center notifying her that she had low hemoglobin and needed to go to the emergency room to be further evaluated. Patient has been declining to have GI workup. Given ongoing multiple comorbidities, patient remains at high risk for further complications, deterioration and decline. . Code Status: Full Code Plan PLAN: Legal decision maker: Patient is able to participate in making medical decisions. In the event that she is incapacitated, patient's daughter Isabella Chiu will save is his healthcare surrogate and the other daughter Carli Chiu will serve as his healthcare proxy Goals: Remain aggressive CODE STATUS: Full code Patient appears to be in a better mood today. She stated that she was able to drink the contrast because the bedside nurse mixed it with lemonade. Patient stated that she has no problem undergoing colonoscopy, her only problem is drinking the prep and if it was mixed in something like the crystal light lemonade she would try to drink it. Patient`s goals of care remain aggressive. She mentions that she is willing to do anything that will keep her alive except drinking the prep for colonoscopy. SYMPTOMS: * Pain: Patient has been complaining of left lower abdominal pain. Patient has oxycodone 5/325 every 6 HRS PRN pain. Patient is required 3 doses in the past 24 hours. Patient complaining of phantom pain right stump. Pain medication adequate at this time * Debility: Progressive. Patient is status post right lower extremity BKA. Patient is bed to wheelchair bound. She has had a few hospitalizations this year. Patient may benefit from physical therapy consult if goals remain aggressive. Palliative care will continue to follow the patient during hospital course as condition evolves, to assist patient/decision-maker with understanding of their medical conditions, weighing benefits/burdens of treatment options, for clarification of goals of treatment. Additionally will assist with any symptoms of palliative concern Attestation To help prompt me to consider important information that might be impacting today's encounter and assessment, information from prior notes written by myself or my colleagues may have been "brought forward" into today's note. My signature on this note, however, is an attestation that I personally performed the exam, history, and/or decision-making noted today, and, unless otherwise indicated, the interactions with patient, family, and staff as well as the review of records all occurred today. I also attest that the listed assessment and stated plan reflect my best clinical judgment today based on the combination of historical information, prior notes, and today's exam/ interactions. When time spent is documented, it refers only to time spent today by the signer, or if indicated, combined time spent today by collaborating physician/nurse practitioner. Yadi oJhnson Feb 04, 2018 17:27
--- NOTE | 2018-02-04 17:58 | RADRPT ---
EXAM DATE: 02/04/2018 5:50 PM EDT AGE/SEX: 72 years / Female INDICATIONS: Anemia, fever. CLINICAL DATA: This is the patient's initial encounter. Patient reports that signs and symptoms have been present for 1 day and indicates a pain score of 0/10. MEDICAL/SURGICAL HISTORY: Hypertension. Diabetes. dialysis patient . Cholecystectomy. Hyste rectomy. Nephrectomy. ORAL CONTRAST: Prescribed oral contrast ingested. RADIATION DOSE: 6.07 CTDI (mGy) COMPARISON: No prior exams available for comparison. TECHNIQUE: Multiple contiguous axial images were obtained through the abdomen and pelvis following b olus infusion of 50 ml Visipaque 320 (iodixanol) nonionic water-soluble contrast as a single exam d ose. Prescribed oral contrast ingested. Using automated exposure control and adjustment of the mA an d/or kV according to patient size, radiation dose was kept as low as reasonably achievable to obtain optimal diagnostic quality images. DICOM format image data is available electronically for review an d comparison. FINDINGS: Lower chest: There is dependent atelectasis at the lung bases bilaterally. Hepatobiliary: No focal liver lesion is identified. Hepatic vasculature demonstrates no abnormality. No calcified gallstones are present. Kidneys: No hydronephrosis, stone, or mass. Both kidneys are present and are at the lower limits for normal in size. Adrenal Glands: No mass is seen. Spleen: Spleen is overall normal in size. There are at least 3 low-density lesions ranging in size fr om 8 mm up to 1.4 cm. Pancreas: Within normal limits. Vascular: The aorta is nonaneurysmal. There is severe atherosclerotic disease of the aorta and its ma hellen branches. Bowel/Mesentery: The stomach and small bowel demonstrate no abnormality. No acute colon abnormality i s visualized. The appendix is normal. There is free fluid within the abdomen and pelvis. No free intr aperitoneal air is visualized. Abdominal Wall: No hernia is visualized. Retroperitoneum: No lymphadenopathy. Bladder: No wall thickening or mass. Reproductive: There coarse calcifications within the uterus with the largest measuring approximately 4 cm. No adnexal abnormality is identified. Inguinal: No lymphadenopathy or hernia. Musculoskeletal: No acute osseous abnormality is identified. There are mild degenerative changes of t he lumbar spine. CONCLUSION: 1. No specific abnormality is identified to explain the clinical symptoms. However, there is free fl uid within the abdomen and pelvis from uncertain etiology. 2. There are 3 low-density lesions within the spleen measuring up to 14 mm. Most incidentally detect ed splenic lesions are benign. However, cannot exclude an infectious process given the clinical histo ry. Suggest follow-up to assess for change. 3. Nonacute findings include severe atherosclerotic disease and calcified uterine fibroids measuring up to 4 cm. Electronically signed by: Jacob Harmon MD 02/04/2018 5:57 PM EDT
[2018-02-04] MEDS ORDERED: IODIXANOL 320 MG/ML 10 ML VIAL (for Rad CT) IVCONTRAST ONE (18:11)
[2018-02-04] MEDS: PANTOPRAZOLE SOD 40 MG DELAYED RELEASE TAB PO SCH (21:58)
[2018-02-04] MEDS: MIRTAZAPINE 15 MG TAB PO SCH (21:58)
[2018-02-05] VITALS: BP 142/65; PULSE 76; RESP 18; TEMP 98.2; O2SAT 95
[2018-02-05 04:00] VITALS: BP 134/61; PULSE 70; RESP 18; TEMP 98.4; O2SAT 96
[2018-02-05] MEDS: LEVOTHYROXINE SODIUM 88 MCG TAB PO SCH (06:00)
[2018-02-05 08:00] VITALS: BP 151/69; PULSE 76; RESP 16; TEMP 98.4; O2SAT 100
[2018-02-05] MEDS: INSULIN ASPART SUPPLEMENTAL SCALE SQ SCH ×3 (08:00→16:19)
[2018-02-05] MEDS ORDERED: OXYC1TAB63 PO (08:19)
[2018-02-05 08:37] LABS: HEMATOCRIT 28.2 % (35.0-46.0); HEMOGLOBIN 9.1 GM/DL (11.6-15.3); MEAN CELL VOLUME 82.9 FL (80.0-100.0); MEAN CORPUSCULAR HEMOGLOBIN 26.8 PG (27.0-34.0); MEAN CORPUSCULAR HGB CONC 32.3 % (32.0-36.0); MEAN PLATELET VOLUME 9.6 FL (7.0-11.0); PLATELET COUNT 306 TH/MM3 (150-450); RED BLOOD COUNT 3.41 MIL/MM3 (4.00-5.30); RED CELL DISTRIBUTION WIDTH 19.1 % (11.6-17.2); WHITE BLOOD COUNT 9.7 TH/MM3 (4.0-11.0)
[2018-02-05] MEDS: CARVEDILOL 12.5 MG TAB PO SCH (09:00)
[2018-02-05 09:01] VITALS: O2SAT 96
[2018-02-05] MEDS: PANTOPRAZOLE SOD 40 MG DELAYED RELEASE TAB PO SCH (09:08)
[2018-02-05] MEDS: SODIUM CHLORIDE 0.9% FLUSH 10 ML FLUSH IV FLUSH SCH (09:08)
[2018-02-05 09:10] LABS: CREATININE 7.8 MG/DL (0.50-1.00)
[2018-02-05 09:11] LABS: BICARBONATE 25.4 MEQ/L (21.0-32.0); CALCIUM 8.2 MG/DL (8.5-10.1)
[2018-02-05] MEDS ORDERED: AMBI5TAB PO (09:40)
[2018-02-05] MEDS ORDERED: COLA100C5 PO (09:41)
--- NOTE | 2018-02-05 09:45 | HHI.DCPOC ---
Discharge Care Plan Diagnosis: (1) Anemia (2) GI bleed (3) ESRD (end stage renal disease) on dialysis Goals to Promote Your Health * To prevent worsening of your condition and complications * To maintain your health at the optimal level Directions to Meet Your Goals Take your medications as prescribed Follow your dietary instruction Follow activity as directed Keep your appointments as scheduled Take your immunizations and boosters as scheduled If your symptoms worsen call your PCP, if no PCP go to Urgent Care Center or Emergency Room Smoking is Dangerous to Your Health. Avoid second hand smoke Call the 24-hour hour crisis hotline for domestic abuse at Dee Dee Viera MD R1 Feb 05, 2018 09:45
--- NOTE | 2018-02-05 09:45 | HHI.DS ---
Discharge Summary Admission Date Feb 01, 2018 at 00:34 Admitting Diagnosis anemia, gi bleed, dialysis patient (1) Fever Plan: Patient had fever of 101.5 around 20:00 overnight. CBC pending this AM Blood cultures x2 ordered CT scan of abd/pelvis with contrast for possible diverticulitis pending, if positive will start patient on renally dose Flagyl and Cipro CXR negative for acute abnormality ICD Codes: R50.9 - Fever, unspecified Status: Acute (2) GI bleed Plan: Patient with asymptomatic anemia found to have hemoglobin of 6.9 a decrease from her baseline of 8. Tender to palpation of LUQ on abdominal exam. In the ED patient was found to have a positive Hemoccult stool sample and was given Protonix 40mg IV1 Patient has complicated history of GI bleed in July 2017 and Aug/sep 2017 requiring transfusion of 7 units of packed red blood cells during at last hospitalization and resection of colon for bleeding in transverse colon. s/p left colectomy and low anterior anastomosis by Dr. De La Cruz on 09/18/17. She follows with Dr. De La Cruz and saw him 1 month ago. EGD on 07/2017: Normal esophagus except for mild to mod Schatzki ring and moderate size hiatal hernia. However, gastric mucosa was unremarkable and within normal limits. IR procedure: Celiac, SMA, and GERARDO angiography to evaluate acute LGIB felt to be arising form transverse colon. Angio shows no source of hemorrhage or abnormal vessel/AVM. No embolization performed. Colonoscopy done in 10/2017 showed: Evidence of prior colorectal colonic surgical anastomosis in the sigmoid colon. Medium sized nonbleeding ulcer found at the anastomosis site biopsies taken showed no significant histopathologic abnormality negative for epithelial polyp. s/p 2 units of RBC on 02/02/18, Hb increased to 8.4 post transfusin, Hb pending today, continue to monitor GI and vascular surgery consulted, appreciate recommendations -Surgery not indicated at this time, patient did not tolerate last surgery well per Dr. De La Cruz -GI bleed scan negative for active GI bleeding -Protonix switch from IV to PO 40mg BID -EGD 02/03 demonstrated gastritis, biopsy of antrum was taken, await results, results will not be ready for 7-10 days ICD Codes: K92.2 - Gastrointestinal hemorrhage, unspecified Status: Acute (3) ESRD (end stage renal disease) on dialysis Plan: Hemodialysis schedule: Electrolytes within normal limits Patient does not make any urine Nephrology consulted, appreciate recommendations, she received dialysis Saturday -continue dialysis per regular schedule -Patient to follow-up with Dr. Greene as an outpatient ICD Codes: N18.6 - End stage renal failure on dialysis; Z99.2 - Dependence on renal dialysis Status: Chronic (4) Hypertension Plan: Continue home amlodipine and coreg Clonidine0.1mg PO RPN for BP >180/100 ICD Codes: I10 - Hypertension Status: Chronic (5) Diabetes mellitus Plan: Blood sugars 70, 262, 137, 132, no units administered over the past 24 hours Patient placed on low SS Hypoglycemia protocol ICD Codes: E11.9 - Type 2 diabetes mellitus without complications Status: Chronic (6) Hypothyroidism Plan: C/w levothyroxine 88mcg QD ICD Codes: E03.9 - Hypothyroidism Status: Chronic (7) Depression Plan: Continue with mirtazapine 30mg HS ICD Codes: F32.9 - Depression Status: Chronic (8) Insomnia Plan: Ambien 5 mg as needed ICD Codes: G47.00 - Insomnia Status: Chronic (9) Phantom limb pain Plan: Patient is status post [id number] amputation of right lower extremity on 09/28/17. c/w percocet 5mg for pain ICD Codes: G54.6 - Phantom limb syndrome with pain Status: Chronic (10) Nutrition, metabolism, and development symptoms Plan: Fluids: None Electrolytes: Replete as needed per nephrology recommendations Nutrition: regular diet DVT prophylaxis: Contraindicated GI prophylaxis: Protonix twice daily ICD Codes: R63.8 - Other symptoms and signs concerning food and fluid intake Status: Acute Brief History Patient is a 72-year-old female with significant past medical history of prior GI bleed, ESRD (on dialysis MWF), DM and HTN who was advised to go to the ED by dialysis nurse due to low hemoglobin of 6.9 on recent lab results. Patient reports that she is usually feels fatigued after dialysis. However, she denies any symptoms such as dizziness, lightheadedness, chest pain, SOB or palpitations. Patient stated she noticed a small amount of blood in her stool on Saturday however that resolved within the day. Denies any fever, chills, or N/ V. Of note: Patient has complicated history of GI bleed in July 2017 and sep 2017 requiring a total transfusion of 11 units of packed red blood cells during those hospitalization and resection of colon for bleeding in transverse colon. s/p left colectomy and low anterior anastomosis by Dr. De La Cruz on 09/18/17. She follows with Dr. De La Cruz and saw him 1 month ago. CBC/BMP: 02/05/18 0748 02/05/18 0748 Significant Findings Laboratory Tests Test 02/03/18 05:00 02/04/18 10:13 02/05/18 07:48 Red Blood Count 3.24 MIL/MM3 (4.00-5.30) 3.29 MIL/MM3 (4.00-5.30) 3.41 MIL/MM3 (4.00-5.30) Hemoglobin 8.7 GM/DL (11.6-15.3) 8.8 GM/DL (11.6-15.3) 9.1 GM/DL (11.6-15.3) Hematocrit 26.9 % (35.0-46.0) 27.6 % (35.0-46.0) 28.2 % (35.0-46.0) Red Cell Distribution Width 19.1 % (11.6-17.2) 19.3 % (11.6-17.2) 19.1 % (11.6-17.2) Blood Urea Nitrogen 78 MG/DL (7-18) 48 MG/DL (7-18) 60 MG/DL (7-18) Creatinine 8.75 MG/DL (0.50-1.00) 6.62 MG/DL (0.50-1.00) 7.80 MG/DL (0.50-1.00) Random Glucose 139 MG/DL (74-106) 121 MG/DL (74-106) Calcium Level 7.8 MG/DL (8.5-10.1) 8.2 MG/DL (8.5-10.1) Potassium Level 5.2 MEQ/L (3.5-5.1) Carbon Dioxide Level 20.4 MEQ/L (21.0-32.0) Anion Gap 16 MEQ/L (5-15) Estimat Glomerular Filtration Rate 5 ML/MIN (>89) 7 ML/MIN (>89) 6 ML/MIN (>89) Mean Corpuscular Hemoglobin 26.7 PG (27.0-34.0) 26.8 PG (27.0-34.0) Mean Corpuscular Hemoglobin Concent 31.8 % (32.0-36.0) Sodium Level 132 MEQ/L (136-145) Chloride Level 93 MEQ/L (98-107) PE at Discharge GENERAL: very thin elderly female, in NAD CARDIOVASCULAR: Regular rate and rhythm without murmurs, gallops, or rubs. RESPIRATORY: Clear to auscultation. Breath sounds equal bilaterally. No wheezes , rales, or rhonchi. Currently on 2L NC. GASTROINTESTINAL: Abdomen soft, mild tenderness to palpation of left upper quadrant, nondistended. No hepato-splenomegaly, or palpable masses. No guarding. MUSCULOSKELETAL: Left extremity without clubbing, cyanosis, or edema. No joint tenderness, effusion, or edema noted. No calf tenderness. 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 NEUROLOGICAL: AAOx3. normal speech. Dee Dee Viera MD R1 Feb 05, 2018 09:45
--- NOTE | 2018-02-05 09:46 | HHI.FPPN ---
Subjective Remarks No acute events overnight. Patient has not had a fever for the past 24 hours. Patient is currently doing well. Is wanting to go home. She still has left-sided abdominal pain unchanged from prior. Advised patient that most likely is due to scar tissue. Patient will receive dialysis today. She denies chest pain, shortness of breath, nausea vomiting, and diarrhea. (Dee Dee Viera MD R1) Objective Vitals Vital Signs Date Time Temp Pulse Resp B/P (MAP) Pulse Ox O2 Delivery O2 Flow Rate FiO2 02/05/18 09:01 96 Nasal Cannula 2.00 02/05/18 08:00 98.4 76 16 151/69 (96) 100 02/05/18 04:00 98.4 70 18 134/61 (85) 96 02/05/18 00:00 98.2 76 18 142/65 (90) 95 02/04/18 20:00 98.8 72 18 161/69 (99) 95 02/04/18 16:00 98.4 68 16 138/65 (89) 95 02/04/18 12:00 98.3 73 20 154/68 (96) 100 02/04/18 09:53 74 152/69 (96) I/O 02/04/18 02/04/18 02/04/18 02/05/18 02/05/18 02/05/18 06:59 14:59 22:59 06:59 14:59 22:59 Intake Total 480 ml 480 ml Output Total 0 ml Balance 480 ml 480 ml Intake Oral 480 ml 480 ml Output Urine Total 0 ml # Bowel Movements 0 (Dee Dee Viera MD R1) Result Diagram: 02/05/18 0748 02/05/18 0748 Objective Remarks GENERAL: very thin elderly female, in NAD CARDIOVASCULAR: Regular rate and rhythm without murmurs, gallops, or rubs. RESPIRATORY: Clear to auscultation. Breath sounds equal bilaterally. No wheezes , rales, or rhonchi. Currently on 2L NC. GASTROINTESTINAL: Abdomen soft, mild tenderness to palpation of left upper quadrant, nondistended. No hepato-splenomegaly, or palpable masses. No guarding. MUSCULOSKELETAL: Left extremity without clubbing, cyanosis, or edema. No joint tenderness, effusion, or edema noted. No calf tenderness. 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 NEUROLOGICAL: AAOx3. normal speech. (Dee Dee Viera MD R1) A/P Assessment and Plan Patient is a 72-year-old female with significant past medical history of prior GI bleed, ESRD (on dialysis MWF), DM and HTN presenting with: Discharge Planning Anticipate discharge today after dialysis Patient states that she is on oxygen at home for COPD (Dee Dee Viera MD R1) Attending Attestation See the residents Dr Foster documentation for details. I saw and evaluated the patient regarding the santo portions of this evaluation and agree with the residents findings and plans as written. (Bigg Wiseman MD) Problem List: (1) Fever ICD Codes: R50.9 - Fever, unspecified Status: Resolved Plan: Patient had fever of 101.5 on 02/05/18. She has not had a fever over the past 24 hours. CBC shows no elevated white count Blood cultures x2 ordered-pending CT scan of abd/pelvis with contrast demonstrated no diverticulitis. There is a 3 low density lesion within the spleen measuring up to 14 mm. Nonacute findings include severe arteriosclerosis sclerotic disease and calcified uterine fibroids measuring up to 4 cm. CXR negative for acute abnormality (2) GI bleed ICD Codes: K92.2 - Gastrointestinal hemorrhage, unspecified Status: Acute Plan: Patient with asymptomatic anemia found to have hemoglobin of 6.9 a decrease from her baseline of 8. Tender to palpation of LUQ on abdominal exam. In the ED patient was found to have a positive Hemoccult stool sample and was given Protonix 40mg IV1 Patient has complicated history of GI bleed in July 2017 and Aug/sep 2017 requiring transfusion of 7 units of packed red blood cells during at last hospitalization and resection of colon for bleeding in transverse colon. s/p left colectomy and low anterior anastomosis by Dr. De La Cruz on 09/18/17. She follows with Dr. De La Cruz and saw him 1 month ago. EGD on 07/2017: Normal esophagus except for mild to mod Schatzki ring and moderate size hiatal hernia. However, gastric mucosa was unremarkable and within normal limits. IR procedure: Celiac, SMA, and GERARDO angiography to evaluate acute LGIB felt to be arising form transverse colon. Angio shows no source of hemorrhage or abnormal vessel/AVM. No embolization performed. Colonoscopy done in 10/2017 showed: Evidence of prior colorectal colonic surgical anastomosis in the sigmoid colon. Medium sized nonbleeding ulcer found at the anastomosis site biopsies taken showed no significant histopathologic abnormality negative for epithelial polyp. s/p 2 units of RBC on 02/02/18, Hb increased to 8.4 post transfusin, Hb pending today, continue to monitor GI and vascular surgery consulted, appreciated recommendations -Surgery not indicated at this time, patient did not tolerate last surgery well per Dr. De La Cruz -GI bleed scan negative for active GI bleeding -Continue Protonix PO 40mg BID -EGD 02/03 demonstrated gastritis, biopsy of antrum was taken, await results, results will not be ready for 7-10 days (3) ESRD (end stage renal disease) on dialysis ICD Codes: N18.6 - End stage renal failure on dialysis; Z99.2 - Dependence on renal dialysis Status: Chronic Plan: Hemodialysis schedule: Electrolytes within normal limits Patient does not make any urine Nephrology consulted, appreciate recommendations, she received dialysis Saturday -continue dialysis per regular schedule -Patient to follow-up with Dr. Greene as an outpatient (4) Hypertension ICD Codes: I10 - Hypertension Status: Chronic Plan: Continue home amlodipine and coreg Clonidine0.1mg PO RPN for BP >180/100 (5) Diabetes mellitus ICD Codes: E11.9 - Type 2 diabetes mellitus without complications Status: Chronic Plan: Blood sugars 132,140,133,140,88 no units of insulin administered over the past 24 hours Patient placed on low SS Hypoglycemia protocol (6) Hypothyroidism ICD Codes: E03.9 - Hypothyroidism Status: Chronic Plan: C/w levothyroxine 88mcg QD (7) Depression ICD Codes: F32.9 - Depression Status: Chronic Plan: Continue with mirtazapine 30mg HS (8) Insomnia ICD Codes: G47.00 - Insomnia Status: Chronic Plan: Ambien 5 mg as needed (9) Phantom limb pain ICD Codes: G54.6 - Phantom limb syndrome with pain Status: Chronic Plan: Patient is status post [id number] amputation of right lower extremity on 09/28/17. c/w percocet 5mg for pain (10) Nutrition, metabolism, and development symptoms ICD Codes: R63.8 - Other symptoms and signs concerning food and fluid intake Status: Acute Plan: Fluids: None Electrolytes: Replete as needed per nephrology recommendations Nutrition: regular diet DVT prophylaxis: Contraindicated GI prophylaxis: Protonix twice daily (Dee Dee Viera MD R1) Problem Qualifiers (1) GI bleed: Qualified Codes: K92.2 - Gastrointestinal hemorrhage, unspecified Dee Dee Viera MD R1 Feb 05, 2018 09:46 Bigg Wiseman MD Feb 06, 2018 07:20
[2018-02-05 12:00] VITALS: BP 140/63; PULSE 72; RESP 14; TEMP 98.5; O2SAT 89
[2018-02-05] MEDS: EPOETIN ALFA 10,000 UNITS/ML VIAL IV PUSH PRN (13:42)
[2018-02-05] MEDS ORDERED: OXYGENDME NAS.CANULA (15:36)
[2018-02-05 16:00] VITALS: BP 173/76; PULSE 84; RESP 17; TEMP 98.4; O2SAT 97
--- NOTE | 2018-02-05 16:57 | HHI.GIFU ---
GI Follow-up Note Consult Follow-up Subjective: Patient laying in bed comfortably, no new complaints. Objective: PHYSICAL EXAMINATION: Vitals signs stable No fever HEENT: Pupils round and reactive to light; normocephalic; atraumatic; no jaundice. Throat is clear. NECK: Neck is supple, no JVD, no lymphadenopathy. CHEST: Chest is clear to auscultation and percussion. CARDIAC: Regular rate and rhythm with no murmur gallop or rubs. ABDOMEN: Soft, nondistended, nontender; no hepatosplenomegaly; bowel sounds are present in all four quadrants. EXTREMITIES: No clubbing, cyanosis, or edema. SKIN: Normal; no rash; no jaundice. 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 Available Data (labs, X- Rays, Procedues) : Last Impressions Chest X-Ray 02/04/18 0000 Signed Impressions: CONCLUSION: 1. Compensated cardiomegaly. 2. No acute abnormality or significant interval change. Abdomen/Pelvis CT 02/04/18 0000 Signed Impressions: CONCLUSION: 1. No specific abnormality is identified to explain the clinical symptoms. How ever, there is free fluid within the abdomen and pelvis from uncertain etiology . 2. There are 3 low-density lesions within the spleen measuring up to [address] incidentally detected splenic lesions are benign. However, cannot exclude an infectious process given the clinical history. Suggest follow-up to assess for change. 3. Nonacute findings include severe atherosclerotic disease and calcified uter ine fibroids measuring up to 4 cm. GI Bleed Scan Nuclear Medicine 02/01/18 0000 Signed Impressions: CONCLUSION: 1. No active GI bleeding Laboratory Tests Test 02/04/18 10:13 02/05/18 07:48 White Blood Count 10.1 TH/MM3 9.7 TH/MM3 Red Blood Count 3.29 MIL/MM3 3.41 MIL/MM3 Hemoglobin 8.8 GM/DL 9.1 GM/DL Hematocrit 27.6 % 28.2 % Mean Corpuscular Volume 84.1 FL 82.9 FL Mean Corpuscular Hemoglobin 26.7 PG 26.8 PG Mean Corpuscular Hemoglobin Concent 31.8 % 32.3 % Red Cell Distribution Width 19.3 % 19.1 % Platelet Count 294 TH/MM3 306 TH/MM3 Mean Platelet Volume 9.0 FL 9.6 FL Blood Urea Nitrogen 48 MG/DL 60 MG/DL Creatinine 6.62 MG/DL 7.80 MG/DL Random Glucose 121 MG/DL 78 MG/DL Calcium Level 8.5 MG/DL 8.2 MG/DL Sodium Level 137 MEQ/L 132 MEQ/L Potassium Level 4.2 MEQ/L 5.0 MEQ/L Chloride Level 98 MEQ/L 93 MEQ/L Carbon Dioxide Level 26.9 MEQ/L 25.4 MEQ/L Anion Gap 12 MEQ/L 14 MEQ/L Estimat Glomerular Filtration Rate 7 ML/MIN 6 ML/MIN Allergies Coded Allergies Type Severity Reaction Last Updated Verified *MDRO Multi-Drug Resistant Organism Allergy Unknown 01/31/18 Yes Active Scripts Medications Dose Route/Sig Max Daily Dose Days Date Category Dose Instructions Oxygen (O2) Device Liter SHEREE.CANULA CONTINUOUS 02/05/18 Rx Oxygen Concentrator Portable Gaseous 2 L/min via Nasal Canula Continuous For 99 months Colace (Docusate Sodium) 100 Mg Capsule 100 Mg PO BID PRN 02/05/18 Rx Ambien (Zolpidem Tartrate) 5 Mg Tab 5 Mg PO HS PRN 02/05/18 Rx Oxycodone-Acetaminophen 5-325 (Oxycodone HCl/Acetaminophen) 5 Mg-325 Mg Tablet 1 Tab PO Q6H PRN 02/05/18 Rx Synthroid (Levothyroxine Sodium) 88 Mcg Tab 88 Mcg PO DAILY@0600 10/21/17 Rx Pantoprazole (Pantoprazole Sodium) 40 Mg Tab 40 Mg PO Q12HR 10/21/17 Rx Mirtazapine 15 Mg Tab 30 Mg PO HS 10/21/17 Rx Coreg (Carvedilol) 12.5 Mg Tab 12.5 Mg PO Q12HR 10/21/17 Rx Nephro-Jammie Rx (Vitamin B Cmplx/Vit C/Folic AC) 1 Tab 1 Tab PO DAILY 10/21/17 Rx Aspir-81 (Aspirin) 81 Mg Tabdr 81 Mg PO DAILY 10/21/17 Rx Amlodipine (Amlodipine Besylate) 10 Mg Tab 10 Mg PO DAILY 10/21/17 Rx Proair Hfa 8.5 GM Inh (Albuterol Sulfate) 90 Mcg/Act Aer 2 Puff INH Q4-6H PRN 10/21/17 Rx 108 mcg/actuation Glucocom Test Strips (Blood Glucose Test Strips) 1 Val Val Ea DIRECTED 08/21/17 Rx Check blood sugars 3 or more times/day: fasting in the morning and 2 hr after eating. ASSESSMENT/PLAN: Seen and examined, No bleeding, no abdominal pain reported. Diet as tolerated. Gastric biopsies -ve. Gi fu upon dc. Will sign off. Thank you It was a pleasure seeing Anel Bolivar. Thank you for this consult. Entered by: Cyrus Sweet MD Feb 05, 2018 16:57
== END 2018-02-05 18:41 | disposition home or self-care (01) | DRG 377 ==
LOC: NEPE 19:00 → NEDA 02-01 00:34 → NEDH 02-01 04:23 → N03B 02-01 13:19
PROVIDERS: ADMIT Family Medicine; ATTEND Family Medicine
PROC: 30233N1 Transfusion of Nonautologous Red Blood Cells into Peripheral Vein, Percutaneous Approach (ICD-10-PCS; 2018-02-01)
PROC: 0DB78ZX Excision of Stomach, Pylorus, Via Natural or Artificial Opening Endoscopic, Diagnostic (ICD-10-PCS; principal; 2018-02-03 12:45)
DX: K28.0 Acute gastrojejunal ulcer with hemorrhage (principal); N18.6 End stage renal disease; E11.21 Type 2 diabetes mellitus with diabetic nephropathy; I13.11 Hypertensive heart and chronic kidney disease without heart failure, with stage 5 chronic kidney disease, or end stage renal disease; D62 Acute posthemorrhagic anemia; D63.8 Anemia in other chronic diseases classified elsewhere; K92.1 Melena; E07.9 Disorder of thyroid, unspecified; E78.5 Hyperlipidemia, unspecified; M19.90 Unspecified osteoarthritis, unspecified site; E11.22 Type 2 diabetes mellitus with diabetic chronic kidney disease; E03.9 Hypothyroidism, unspecified; R09.02 Hypoxemia; K21.9 Gastro-esophageal reflux disease without esophagitis; F32.9 Major depressive disorder, single episode, unspecified; G54.6 Phantom limb syndrome with pain; K44.9 Diaphragmatic hernia without obstruction or gangrene; K22.2 Esophageal obstruction; R50.9 Fever, unspecified; R63.8 Other symptoms and signs concerning food and fluid intake; J44.9 Chronic obstructive pulmonary disease, unspecified; K29.70 Gastritis, unspecified, without bleeding; G47.00 Insomnia, unspecified; H26.9 Unspecified cataract; B19.20 Unspecified viral hepatitis C without hepatic coma; F17.210 Nicotine dependence, cigarettes, uncomplicated; Z51.5 Encounter for palliative care; Z99.2 Dependence on renal dialysis; Z90.49 Acquired absence of other specified parts of digestive tract; Z89.511 Acquired absence of right leg below knee; Z89.432 Acquired absence of left foot; Z82.49 Family history of ischemic heart disease and other diseases of the circulatory system; Z83.3 Family history of diabetes mellitus; Z99.81 Dependence on supplemental oxygen
CPT/HCPCS: 36430; 71045; 71046; 74177; 78278; 80048; 80053; 80074; 82948; 83735; 85014; 85018; 85025; 85027; 85610; 85730; 86850; 86900; 86901; 86920; 87040; 88305; 88312; 90935; 96374; 99285; A9560; C9113; J1815; J2370; J7050; P9016; Q4081; Q9963; Q9967

== ENCOUNTER 2018-03-12 22:30 | Inpatient (IN) ==
[2018-03-13 00:02] LABS: Baso # (Auto) 0.1 th/mm3 (0.0-0.2); Eos # (Auto) 0.4 th/mm3 (0.0-0.4); Eos % (Auto) 5.6 % (0.0-4.0); Lymph # (Auto) 1.5 th/mm3 (1.0-4.8); Lymph % (Auto) 19.3 % (9.0-44.0); Mean Corpuscular HGB Conc 31.3 % (32.0-36.0); Mean Corpuscular Hemoglobin 25.4 pg (27.0-34.0); Mean Corpuscular Volume 81.1 fL (80.0-100.0); Mono # (Auto) 0.9 th/mm3 (0.0-0.9); Mono % (Auto) 11.4 % (0.0-8.0); Neut # (Auto) 4.9 th/mm3 (1.8-7.7); Neut % (Auto) 62.7 % (16.0-70.0); Platelet Count 435 th/mm3 (150-450); Red Blood Count 2.27 mil/mm3 (4.00-5.30); Red Cell Distribution Width 22.1 % (11.6-17.2); White Blood Count 7.8 th/mm3 (4.0-11.0)
[2018-03-13 00:06] LABS: Alanine Aminotransferase 20 U/L (10-53)
[2018-03-13 00:10] LABS: Alkaline Phosphatase 161 U/L (45-117); Total Protein 7.3 g/dL (6.4-8.2); Troponin I 0.04 ng/mL (0.02-0.05)
[2018-03-13 00:12] LABS: Albumin 2.4 g/dL (3.4-5.0); Anion Gap 10 meq/L (5-15); Aspartate Aminotransferase 33 U/L (15-37); Blood Urea Nitrogen 31 mg/dL (7-18); Calcium 8.1 mg/dL (8.5-10.1); Carbon Dioxide 28.3 meq/L (21.0-32.0); Chloride 99 meq/L (98-107); Glomerular Filtration Rate 12 mL/min (>89); Glucose,Random 156 mg/dL (74-106); Potassium 4.6 meq/L (3.5-5.1); Sodium 137 meq/L (136-145)
[2018-03-13 00:21] LABS: INR 1.1 Ratio; Prothrombin Time 11.4 sec (9.8-11.6)
[2018-03-13 00:30] LABS: Hematocrit 18.5 % (35.0-46.0); Hemoglobin 5.8 gm/dL (11.6-15.3)
[2018-03-13] MEDS ORDERED: Sodium Chlor 0.9% Inj 250 ML IV.SIG SCH (01:00)
[2018-03-13] MEDS ORDERED: Temazepam 15 MG Capsule PO PRN (01:14)
[2018-03-13] MEDS ORDERED: Acetaminophen 325 MG Tablet PO PRN (01:14)
[2018-03-13] MEDS ORDERED: Dextrose 50% in Water 50 ML Vial IV.PUSH PRN (02:46)
--- NOTE | 2018-03-13 02:53 | P.HPFP ---
History of Present Illness Primary Care Physician: Charu Akbar MD, R3 <EspinosaHarrison - 03/14/18 14:09> Charu Akbar MD, R3 <Ken Ritter III 03/13/18 02:53> Chief Complaint: Hgb 5.3 <Ken Ritter III 03/13/18 02:53> History of Present Illness: Ms Bolivar is a 73 YO female pt seen by Dr Gabino Akbar with PMHx ESRD on HD MWF followed by Dr Greene, GERD, HTN, Hx colectomy, DM, hypothyroid, GI bleeds and COPD who presents to the ED after Dr Ritter was called by [facility] with abnormal lab reading of Hgb 5.3 on an outpt lab. Dr Ritter spoke with pt's daughter to relay the news and stressed the importance of getting her mother to the ED for evaluation. Pt was not happy being brought to the ED; however, she understands she needs to get blood transfusion. She has no complaints during the interview but wants to sleep and feels tired. She admits to seeing blood in her stool over the past few days which has been a chronic problem. She states she went to HD today as scheduled. There are no other complaints at this time. Denies CP, SOB, N/V/D and DVT pain. <Ken Ritter III 03/13/18 02:53> - Diagnosis (1) Chronic blood loss anemia (2) ESRD (end stage renal disease) on dialysis (3) HTN (hypertension) (4) Hypothyroid (5) Depression <Ken Ritter III 03/13/18 02:53> Inpatient Certification: I certify that the inpatient services were ordered in accordance with Medicare regulations governing the order. This includes certification that hospital inpatient services are reasonable and necessary and in the case of services not specified as inpatient-only under 42 CFR 419.22(n), that they are appropriately provided as inpatient services in accordance to with the 2-midnight benchmark under 43 CFR 412.3(e) <Harrison Espinosa - 03/14/18 14:09> I certify that the inpatient services were ordered in accordance with Medicare regulations governing the order. This includes certification that hospital inpatient services are reasonable and necessary and in the case of services not specified as inpatient-only under 42 CFR 419.22(n), that they are appropriately provided as inpatient services in accordance to with the 2-midnight benchmark under 43 CFR 412.3(e) <Stone BALLESTEROSKen 03/13/18 02:53> Estimated Total Length of Stay (Days): 3 <Stone BALLESTEROSKen [facility] 03/13/18 02:53> Plans for Post Hospital Care: Home <Stone BALLESTEROSKen [facility] 03/13/18 02:53> Review of Systems Constitutional: Reports lack of energy, Reports weakness, Denies chills, Denies fever(s) <Arlenelexy FAVIANKen 03/13/18 02:53> Cardiovascular: Denies chest pain, Denies shortness of breath <Stone BALLESTEROS [facility] 03/13/18 02:53> Respiratory: Denies cough, Denies shortness of breath <Arlenelexy FAVINAKen 02:53> Gastrointestinal: Reports bright, red blood in stools, Reports vomiting (states she threw up yesterday (no blood)), Denies abdominal pain, Denies loose stools <Stone BALLESTEROSKen 03/13/18 02:53> Genitourinary: Denies painful urination <[facility] 03/13/18 02:53> PMFSH - History History Provided By: Patient <Stone BALLESTEROSKen 03/13/18 02:53> - Medical History Medical History: Medical History (Last Updated 03/13/18 @ 02:18 by Ken Ritter III, MD, R2) Cataracts, bilateral Depression Diabetes mellitus Dialysis patient Foot abscess GERD (gastroesophageal reflux disease) GI bleeding HTN (hypertension) Hepatitis C Hypothyroid Renal failure <Harrison Espinosa - 03/14/18 14:09> Medical History (Last Updated 03/13/18 @ 02:18 by Ken Ritter III, MD, R2) Cataracts, bilateral Depression Diabetes mellitus Dialysis patient Foot abscess GERD (gastroesophageal reflux disease) GI bleeding HTN (hypertension) Hepatitis C Hypothyroid Renal failure <Stone BALLESTEROSKen [facility] 03/13/18 02:53> - Surgical History Surgical History: Surgical History (Last Updated 03/12/18 @ 23:05 by Juli Robertson) Amputation of leg History of colon resection <Harrison Espinosa - 03/14/18 14:09> Surgical History (Last Updated 03/12/18 @ 23:05 by Juli Robertson) Amputation of leg History of colon resection <Ken Ritter III 03/13/18 02:53> - Tobacco History Tobacco Use In Past 30 Days: No <Ken Ritter III 03/13/18 02:53> Smoking Status: Former smoker (1 ppd for 35 years; quit Sep 2017) <Arlenelexy BALLESTEROS [facility] 03/13/18 02:53> - Alcohol History How Often Do You Have a Drink Containing Alcohol: Never <Arlenelexy BALLESTEROSKen [place] 03/13/18 02:53> - Substance Use History Substance History: No History of Abuse <Stone BALLESTEROSKen [place] 03/13/18 02:53> - Travel History Recent Travel in the [facility] Within the Last 8 Weeks: No <Arlenelexy BALLESTEROSKen [place] 09/29 02:53> Recent Travel Out of the Country Within the Last 8 Weeks: No <Stone BALLESTEROS [facility] 03/13/18 02:53> - Immunization History Tetanus Immunization: Unsure <Stone BALLESTEROSKen [facility] 03/13/18 02:53> Hx Influenza Vaccine This Season: Yes <Arlenelexy BALLESTEROSKen [place] 03/13/18 02:53> Medications and Allergies Allergies Allergy/AdvReac Type Severity Reaction Status Date / Time *MDRO Multi-Drug Resistant Allergy Unknown Uncoded 01/31/18 19:51 Organism <Harrison Espinosa - 03/14/18 14:09> Home Medications Medication Instructions Recorded Confirmed Type Unable to Obtain Home Meds 03/12/18 03/12/18 History <Harrison Espinosa - 03/14/18 14:09> Active Medications: Active Medications Acetaminophen (Tylenol) 650 mg PO Q4H PRN PRN Reason: Temp > 100.4 Acetaminophen (Tylenol) 650 mg PO UNSCH PRN PRN Reason: SEE LABEL COMMENTS Last Admin: 03/13/18 20:58 Dose: 650 mg Carvedilol (Coreg) 12.5 mg PO BID [facility] Last Admin: 03/14/18 13:25 Dose: Not Given Chlorhexidine Gluconate (Chlorhexidine 2% Cloth) 3 pack TOPICAL PHYSICAL THERAPIST AIDE [facility] Stop: 03/17/18 04:33 Clonidine HCl (Catapres) 0.1 mg PO UNSCH PRN PRN Reason: SEE LABEL COMMENTS Dextrose (D50w Vial) 50 ml IV.PUSH UNSCH PRN PRN Reason: PER HYPOGLYCEMIA PROTOCOL Diphenhydramine HCl (Benadryl) 25 mg PO UNSCH PRN PRN Reason: SEE LABEL COMMENTS Epoetin Néstor (Epogen Inj) 14,000 unit IV.PUSH MoWeFr [facility] Gelatin (Gelfoam 12 Mm/7 Mm Topical) 1 foam TOPICAL UNSCH PRN PRN Reason: help stop bleeding from site Gentamicin Sulfate (Gentamicin Inj) 20 mg OTHER WITH DIALYSIS PRN PRN Reason: Dwell Gentamycin Lock Glucagon (Glucagon Inj) 1 mg OTHER PRN PRN PRN Reason: for Hypoglycemia Protocol Heparin Sodium (Porcine) (Heparin Inj) 8,000 units OTHER WITH DIALYSIS PRN PRN Reason: for machine prime Heparin Sodium (Porcine) (Heparin Inj) 0 units OTHER WITH DIALYSIS PRN PRN Reason: Dwell Heparin to Fill Catheter Albumin Human (Flexbumin 25% Inj) 100 mls @ 60 mls/hr IV.SIG WITH DIALYSIS PRN PRN Reason: hypotension / volume replace Sodium Chloride (Ns Inj) 1,000 mls @ 0 mls/hr OTHER .Q0M PRN PRN Reason: for prime and rinse back Sodium Chloride (Ns Inj) 1,000 mls @ 200 mls/hr OTHER .Q5H PRN PRN Reason: for dialyzer flush PRN Sodium Chloride (Ns Inj) 1,000 mls @ 0 mls/hr IV.CONT .Q0M PRN PRN Reason: hypotension / volume replace Dextrose/Sodium Chloride (D5w/Normal Saline Inj) 1,000 mls @ 25 mls/hr IV.CONT .Q24H [facility] Last Admin: 03/14/18 10:30 Dose: 25 mls/hr Insulin Aspart (Novolog Insulin Correctional Sugar Inj) 0 unit SQ ACHS [facility]; Protocol Last Admin: 03/14/18 13:25 Dose: Not Given Levothyroxine Sodium (Synthroid) 88 mcg PO DAILY@0600 [facility] Last Admin: 03/14/18 05:28 Dose: 88 mcg Mannitol (Mannitol Inj) 12.5 gm IV.PUSH UNSCH PRN PRN Reason: hypotension / volume replace Mirtazapine (Remeron) 15 mg PO HS [facility] Last Admin: 03/13/18 20:59 Dose: 15 mg Nitroglycerin (Nitrostat Sl) 0.4 mg SL Q5M PRN PRN Reason: CHEST PAIN Ondansetron HCl (Zofran Inj) 4 mg IV.PUSH Q6H PRN PRN Reason: NAUSEA OR VOMITING Last Admin: 03/13/18 17:25 Dose: 4 mg Ondansetron HCl (Zofran Inj) 4 mg IV.PUSH UNSCH PRN PRN Reason: NAUSEA OR VOMITING Pantoprazole Sodium (Protonix Inj) 40 mg IV.PUSH Q12H [facility] Last Admin: 03/14/18 03:21 Dose: 40 mg Povidone Iodine (Betadine 5% Antisepsis Kit) 1 applicatio EACH NARE PHYSICAL THERAPIST AIDE [facility] Stop: 03/17/18 04:33 Sodium Chloride (Ns Flush) 5 ml IV.FLUSH UNSCH PRN PRN Reason: flush each lumen during HD Temazepam (Restoril) 15 mg PO HS PRN PRN Reason: INSOMNIA <Harrison Espinosa - 03/14/18 14:09> Active Medications Acetaminophen (Tylenol) 650 mg PO Q4H PRN PRN Reason: Temp > 100.4 Sodium Chloride (Ns Inj) 250 mls @ 15 mls/hr IV.SIG ONCE [facility] Stop: 03/13/18 17:39 Last Admin: 03/13/18 01:11 Dose: 15 mls/hr Ondansetron HCl (Zofran Inj) 4 mg IV.PUSH Q6H PRN PRN Reason: NAUSEA OR VOMITING Temazepam (Restoril) 15 mg PO HS PRN PRN Reason: INSOMNIA <Ken Ritter III H - 03/13/18 02:53> Exam Vital signs: Vital Signs 03/13/18 16:00 03/13/18 19:52 03/13/18 20:00 Temperature 98.4 F 98.7 F Pulse Rate 75 76 75 Respiratory Rate 18 19 Blood Pressure 163/73 H 161/77 H Pulse Oximetry 99 95 03/13/18 20:03 03/13/18 21:28 03/14/18 00:00 Temperature 98.0 F Pulse Rate 69 Respiratory Rate 18 18 Blood Pressure 118/56 L Pulse Oximetry 96 96 03/14/18 00:02 03/14/18 00:40 03/14/18 04:00 Temperature 98.3 F Pulse Rate 68 68 Respiratory Rate 18 18 Blood Pressure 153/65 H Pulse Oximetry 93 L 03/14/18 05:04 03/14/18 08:00 03/14/18 09:00 Temperature 98.4 F Pulse Rate 68 61 71 Respiratory Rate 16 Blood Pressure 166/70 H Pulse Oximetry 93 L 03/14/18 12:16 Temperature 98.0 F Pulse Rate 65 Respiratory Rate 16 Blood Pressure 143/65 H Pulse Oximetry 94 L Intake & Output 03/13/18 03/14/18 03/14/18 18:59 06:59 18:59 Intake Total 600 / 600 Balance 600 / 600 Weight 58.9 kg Intake: Oral 600 / 600 Other: Date of Last Bowel Movement 03/12/18 03/13/18 03/14/18 # Bowel Movements 5 4 <Harrison Espinosa - 03/14/18 14:09> Vital Signs 03/12/18 23:02 03/12/18 23:17 03/12/18 23:33 Temperature 99.4 F Pulse Rate 79 81 76 Respiratory Rate 16 16 Blood Pressure 136/61 125/58 L Pulse Oximetry 100 95 97 03/13/18 01:12 03/13/18 01:28 Temperature 98.6 F 98.5 F Pulse Rate 73 72 Respiratory Rate 16 18 Blood Pressure 146/51 H 135/64 Pulse Oximetry 98 Intake & Output 03/12/18 03/12/18 03/13/18 06:59 18:59 06:59 Intake Total 0 / 0 Balance 0 / 0 Weight 58.967 kg Intake: Intake (Blood Product) Amt 0 / 0 Rbc As-3 Leukoreduced Unit 0 / 0 [id number] <Ken Ritter III - 03/13/18 02:53> Narrative: GENERAL: Elderly AA female who appears tired and pale and in NAD. SKIN: Warm and dry. No rashes. HEAD: Normocephalic. Atraumatic. EYES: No scleral icterus. No injection or drainage. Wearing glasses. NECK: Supple, trachea midline. No JVD or lymphadenopathy. CARDIOVASCULAR: Regular rate and rhythm without murmurs, gallops, or rubs. RESPIRATORY: Breath sounds equal bilaterally. No accessory muscle use. GASTROINTESTINAL: Abdomen soft, non-tender, nondistended. MUSCULOSKELETAL: No cyanosis, or edema. <Ken Ritter III - 03/13/18 02:53> Results - Labs Result diagrams: 03/14/18 09:32 03/14/18 09:32 <EspinosaHarrison barclay - 03/14/18 14:09> Abnormal lab results 03/13/18 03/14/18 03/14/18 Range/Units 19:47 00:32 09:32 RBC 3.25 L 2.89 L 3.10 L (4.00-5.30) mil/mm3 Hgb 8.4 L 7.8 L 8.1 L (11.6-15.3) gm/dL Hct 26.6 L 24.1 L 25.7 L (35.0-46.0) % MCH 25.7 L 26.2 L (27.0-34.0) pg MCHC 31.4 L 31.6 L (32.0-36.0) % RDW 18.6 H 18.7 H 19.7 H (11.6-17.2) % [place] % (Auto) 9.0 H (0.0-8.0) % Eos % (Auto) 7.6 H (0.0-4.0) % Eos # (Auto) 0.6 H (0.0-0.4) th/mm3 PT (9.8-11.6) sec BUN (7-18) mg/dL Creatinine (0.50-1.00) mg/dL Estimated GFR (>89) mL/min POC Glucose (68-110) mg/dl Alkaline Phosphatase (45-117) U/L Albumin (3.4-5.0) g/dL 03/14/18 03/14/18 03/14/18 Range/Units 09:32 09:32 12:37 RBC (4.00-5.30) mil/mm3 Hgb (11.6-15.3) gm/dL Hct (35.0-46.0) % MCH (27.0-34.0) pg MCHC (32.0-36.0) % RDW (11.6-17.2) % [place] % (Auto) (0.0-8.0) % Eos % (Auto) (0.0-4.0) % Eos # (Auto) (0.0-0.4) th/mm3 PT 11.8 H (9.8-11.6) sec BUN 39 H (7-18) mg/dL Creatinine 7.22 H (0.50-1.00) mg/dL Estimated GFR 7 L (>89) mL/min POC Glucose 116 H (68-110) mg/dl Alkaline Phosphatase 134 H (45-117) U/L Albumin 2.3 L (3.4-5.0) g/dL Short CBC 03/13/18 03/14/18 03/14/18 Range/Units 19:47 00:32 09:32 WBC 9.4 8.7 8.5 (4.0-11.0) th/mm3 Hgb 8.4 L 7.8 L 8.1 L (11.6-15.3) gm/dL Hct 26.6 L 24.1 L 25.7 L (35.0-46.0) % Plt Count 384 D 320 379 (150-450) th/mm3 BMP 03/14/18 09:32 Sodium 141 Potassium 4.4 Chloride 106 Carbon Dioxide 23.3 BUN 39 H Creatinine 7.22 H Calcium 8.6 Cardiac Enzymes 03/13/18 03/14/18 Range/Units 19:47 00:32 Troponin I 0.04 0.04 (0.02-0.05) ng/mL Liver Function 03/14/18 Range/Units 09:32 Total Bilirubin 0.3 (0.2-1.0) mg/dL AST 26 (15-37) U/L ALT 16 (10-53) U/L Alkaline Phosphatase 134 H (45-117) U/L Albumin 2.3 L (3.4-5.0) g/dL <Harrison Espinosa - 03/14/18 14:09> Abnormal lab results 03/12/18 03/12/18 03/12/18 Range/Units 23:35 23:35 23:35 RBC 2.27 L (4.00-5.30) mil/mm3 Hgb 5.8 L* (11.6-15.3) gm/dL Hct 18.5 L* (35.0-46.0) % MCH 25.4 L (27.0-34.0) pg MCHC 31.3 L (32.0-36.0) % RDW 22.1 H (11.6-17.2) % [place] % (Auto) 11.4 H (0.0-8.0) % Eos % (Auto) 5.6 H (0.0-4.0) % APTT 24.0 L (24.3-30.1) sec BUN 31 H (7-18) mg/dL Creatinine 4.51 H (0.50-1.00) mg/dL Estimated GFR 12 L (>89) mL/min Random Glucose 156 H (74-106) mg/dL Calcium 8.1 L (8.5-10.1) mg/dL Alkaline Phosphatase 161 H (45-117) U/L Albumin 2.4 L (3.4-5.0) g/dL MTS Gel Crossmatch 03/12/18 Range/Units 23:35 RBC (4.00-5.30) mil/mm3 Hgb (11.6-15.3) gm/dL Hct (35.0-46.0) % MCH (27.0-34.0) pg MCHC (32.0-36.0) % RDW (11.6-17.2) % [place] % (Auto) (0.0-8.0) % Eos % (Auto) (0.0-4.0) % APTT (24.3-30.1) sec BUN (7-18) mg/dL Creatinine (0.50-1.00) mg/dL Estimated GFR (>89) mL/min Random Glucose (74-106) mg/dL Calcium (8.5-10.1) mg/dL Alkaline Phosphatase (45-117) U/L Albumin (3.4-5.0) g/dL MTS Gel Crossmatch See Detail Short CBC 03/12/18 Range/Units 23:35 WBC 7.8 (4.0-11.0) th/mm3 Hgb 5.8 L* (11.6-15.3) gm/dL Hct 18.5 L* (35.0-46.0) % Plt Count 435 (150-450) th/mm3 BMP 03/12/18 23:35 Sodium 137 Potassium 4.6 Chloride 99 Carbon Dioxide 28.3 BUN 31 H Creatinine 4.51 H Calcium 8.1 L Cardiac Enzymes 03/12/18 Range/Units 23:35 Troponin I 0.04 (0.02-0.05) ng/mL Liver Function 03/12/18 Range/Units 23:35 Total Bilirubin 0.2 (0.2-1.0) mg/dL AST 33 (15-37) U/L ALT 20 (10-53) U/L Alkaline Phosphatase 161 H (45-117) U/L Albumin 2.4 L (3.4-5.0) g/dL <Stone BALLESTEROSKen [facility] 03/13/18 02:53> Caprini VTE Risk Assessment Teressa VTE Risk Assessment: Moderate/High Risk (score >= 2) <Stone BALLESTEROS Ken 03/13/18 02:53> VTE Pharmacological Exception Reason: Hemorrhage (suspected GI bleed with Hgb 5.3) <[facility] 03/13/18 02:53> Teressa Risk Assessment Model: Point Value = 1 Point Value = 2 Point Value = 3 Point Value = 5 Age 41-60 Minor surgery BMI > 25 kg/m2 Swollen legs Varicose veins or History of unexplained or recurrent spontaneous Oral contraceptives or hormone replacement Sepsis (< 1 month) Serious lung disease, including pneumonia (< 1 month) Abnormal pulmonary function Acute myocardial infarction Congestive heart failure (< 1 month) History of inflammatory bowel disease Medical patient at bed rest Age 61-74 Arthroscopic surgery Major open surgery (> 45 min) Laparoscopic surgery (> 45 min) Malignancy Confined to bed (> 72 hours) Immobilizing plaster cast Central venous access Age >= 75 History of VTE Family history of VTE Factor V Leiden Prothrombin [id number] Lupus anticoagulant Anticardiolipin antibodies Elevated serum homocysteine Heparin-induced thrombocytopenia Other congenital or acquired thrombophilia Stroke (< 1 month) Elective arthroplasty Hip, pelvis, or leg fracture Acute spinal cord injury (< 1 month) <Harrison Espinosa - 03/14/18 14:09> Prophylaxis Regimen: Total Risk Factor Score Risk Level Prophylaxis Regimen 0-1 Low Early ambulation 2 Moderate Order ONE of the following: *Sequential Compression Device (SCD) *Heparin 5000 units SQ BID 3-4 Higher Order ONE of the following medications: *Heparin 5000 units SQ TID *Enoxaparin/Lovenox 40 mg SQ daily (WT < 150 kg, CrCl > 30 mL/min) *Enoxaparin/Lovenox 30 mg SQ daily (WT < 150 kg, CrCl > 10-29 mL/min) *Enoxaparin/Lovenox 30 mg SQ BID (WT < 150 kg, CrCl > 30 mL/min) AND/OR *Sequential Compression Device (SCD) 5 or more Highest Order ONE of the following medications: *Heparin 5000 units SQ TID (Preferred with Epidurals) *Enoxaparin/Lovenox 40 mg SQ daily (WT < 150 kg, CrCl > 30 mL/min) *Enoxaparin/Lovenox 30 mg SQ daily (WT < 150 kg, CrCl > 10-29 mL/min) *Enoxaparin/Lovenox 30 mg SQ BID (WT < 150 kg, CrCl > 30 mL/min) AND *Sequential Compression Device (SCD) <Harrison Espinosa - 03/14/18 14:09> Assessment and Plan - Assessment (1) Chronic blood loss anemia Code(s): D50.0 - Iron deficiency anemia secondary to blood loss (chronic) Status: Acute (2) ESRD (end stage renal disease) on dialysis Code(s): N18.6 - End stage renal disease; Z99.2 - Dependence on renal dialysis Status: Acute Plan: 73 YO female with PMHx HTN, ESRD on HD, hypothyroid, DM, and depression presents with acute on chronic blood loss anemia likely to GI bleed with outpt lab today with Hgb 5.3 and Hct 18.1. Pt's daughter was called yesterday evening with critical lab values and advised to bring her mother to the ED. Pt came in and was admitted for blood transfusion and to be seen by GI and nephrology who have been consulted. Impression: -Outpt lab values: Hgb 5.3 and Hct 18.1 PLAN: 1. Acute on chronic blood loss anemia -Transfuse 2u PRBCs; hold 2 units -F/u H/H 2. GI Bleed -GI consulted--appreciate recs -As above, follow H/H until stable 3. ESRD on HD -Dr Greene has been consulted--appreciate recs -Pt got HD on Saturday, Mar 12 4. Hypothyroidism -Continue pt home dose levothyroxine 88 mcg PO daily 5. HTN -Monitor VS -Consider BP medication in AM/when stable if needed 6. Depression -Continue home dose Mirtazipine 30 mg PO qhs 7. DM -Accu-checks -Pt NPO until evaluated by GI in AM 8. Insomnia -Restoril 15 mg qhs 9. FEN/GI/PPx Fluids: pt received Electrolytes: to be managed by nephrology Nutrition: regular diet GI: Protonix 40 mg IV q12h PPx: contraindicated (3) HTN (hypertension) Code(s): I10 - Essential (primary) hypertension Status: Acute (4) Hypothyroid Code(s): E03.9 - Hypothyroidism, unspecified Status: Acute (5) Depression Code(s): F32.9 - Major depressive disorder, single episode, unspecified Status : Acute <Stone BALLESTEROSKen Compa - 03/13/18 02:53> - Attending Attestation See the residents documentation for details. I saw and evaluated the patient regarding the santo portions of this evaluation and agree with the residents findings and plans as written. Parts of this note were created using [employer] voice recognition software program. While efforts were made to correct any mistakes made by this software, some mistakes, errors, and omissions may remain in the final note that were not caught when the note was originally created. Plan of care was discussed and agreed upon with the patient as specifically documented in the above note. An opportunity to ask questions with explanation was provided. Patient voiced understanding on all information reviewed and discussed. <Harrison Espinosa - 03/14/18 14:09>
[2018-03-13] MEDS: Pantoprazole Inj 40 MG Vial IV.PUSH SCH ×2 (03:10→15:02)
[2018-03-13] MEDS: Levothyroxine 88 MCG Tablet PO SCH (05:56)
--- NOTE | 2018-03-13 07:37 | ED ---
HPI General Chief complaint: Medical Clearance Stated complaint: Sent by dr/abnormal labs Time Seen by Provider: 03/12/18 23:29 History of Present Illness HPI narrative: Is a 73-year-old male who was called by her primary care physician night for evaluation of anemia. She had routine labs drawn and sent was told that her hemoglobin was very low. Patient states she has a history of chronic GI bleeding is been seen by multiple manager surgical. Review of her records show that she had a recent nuclear med bleeding study that was negative. Patient also has chronic kidney disease and is on dialysis, she has no physical complaints at this time except for feeling mildly weak. No chest pain or shortness breath no abdominal pain nausea vomiting. She also has a history of COPD and is on home oxygen at night. Symptoms moderate, context associated signs symptoms as above. Duration unknown Related Data Home Medications Medication Instructions Recorded Confirmed Unable to Obtain Home Meds 03/12/18 03/12/18 Allergies Allergy/AdvReac Type Severity Reaction Status Date / Time *MDRO Multi-Drug Resistant Allergy Unknown Uncoded 01/31/18 19:51 Organism Review of Systems Except as stated in HPI: all other systems reviewed are negative Neurologic Reports weakness PMFSH Medical History Medical History Cataracts, bilateral (Acute) Depression (Acute) Diabetes mellitus (Acute) Dialysis patient (Acute) Foot abscess (Acute) GERD (gastroesophageal reflux disease) (Acute) GI bleeding (Acute) HTN (hypertension) (Acute) Hepatitis C (Acute) Hypothyroid (Acute) Renal failure (Acute) Surgical History Surgical History Amputation of leg (Acute) History of colon resection (Acute) Social History Social History Substance History: No History of Abuse Second Hand Smoke Exposure: No Smoking Status: Former smoker How Often Do You Have a Drink Containing Alcohol: Never Recent Travel [facility] within the Last 8 Weeks: No Recent Out of Country Travel within the Last 8 Weeks: No Immunization History Tetanus Immunization: Unsure Hx Influenza Vaccine This Season: Yes Exam Narrative Exam Narrative: GENERAL: [Well-developed well-nourished no obvious distress, thin. SKIN: Focused skin assessment warm/dry. HEAD: Atraumatic. Normocephalic. EYES: Pupils equal and round. No scleral icterus. No injection or drainage. Conjunctival pallor. ENT: No nasal bleeding or discharge. Mucous membranes pink and moist. NECK: Trachea midline. No JVD. CARDIOVASCULAR: Regular rate and rhythm. No murmur appreciated. RESPIRATORY: No accessory muscle use. Clear to auscultation. Breath sounds equal bilaterally. GASTROINTESTINAL: Abdomen soft, non-tender, nondistended. Hepatic and splenic margins not palpable. MUSCULOSKELETAL: Evidence of BKA on the right, under the extremities atraumatic. Pulses motor and sensory intact distally in remaining 3 extremities.. No clubbing. No cyanosis. No edema. NEUROLOGICAL: Awake and alert. No obvious cranial nerve deficits. Motor grossly within normal limits. Normal speech. PSYCHIATRIC: Appropriate mood and affect; insight and judgment normal. Course Initial Documented Vital Signs Temperature 99.4 F 03/12/18 23:02 Pulse Rate 79 03/12/18 23:02 Respiratory Rate 16 03/12/18 23:02 Blood Pressure 136/61 03/12/18 23:02 Pulse Oximetry 100 03/12/18 23:02 Last Documented Vital Signs Temperature 98.4 F 03/13/18 06:25 Pulse Rate 78 03/13/18 06:25 Respiratory Rate 18 03/13/18 06:25 Blood Pressure 158/63 H 03/13/18 06:25 Pulse Oximetry 99 03/13/18 06:25 Medical Decision Making [facility] Narrative Medical decision making narrative: Patient room to the emergency department,Her records review as above in HPI, basic labs drawn and sent, CBC shows hemoglobin of 5.8. Indication for transfusion obvious. Patient consented after discussion wrist benefits competitions alternatives. Was given 2 units PRBCs and additional 2 units in reserve. Discussed with the residents for admission. Her chemistry was consistent with chronic kidney disease without indication for emergent dialysis. Differential Diagnosis Differential Diagnosis: Anemia, chronic GI bleed, anemia of chronic disease, chronic kidney disease. Lab Data Result diagrams: 03/12/18 23:35 03/12/18 23:35 Lab Results 03/12/18 03/12/18 03/12/18 Range/Units 23:35 23:35 23:35 WBC 7.8 (4.0-11.0) th/mm3 RBC 2.27 L (4.00-5.30) mil/mm3 Hgb 5.8 L* (11.6-15.3) gm/dL Hct 18.5 L* (35.0-46.0) % MCV 81.1 (80.0-100.0) fL MCH 25.4 L (27.0-34.0) pg MCHC 31.3 L (32.0-36.0) % RDW 22.1 H (11.6-17.2) % Plt Count 435 (150-450) th/mm3 MPV 9.0 (7.0-11.0) fL Prelim Diff (Auto) Terrazzo Grinder Neut % (Auto) 62.7 (16.0-70.0) % Lymph % (Auto) 19.3 (9.0-44.0) % [place] % (Auto) 11.4 H (0.0-8.0) % Eos % (Auto) 5.6 H (0.0-4.0) % Baso % (Auto) 1.0 (0.0-2.0) % Neut # (Auto) 4.9 (1.8-7.7) th/mm3 Lymph # (Auto) 1.5 (1.0-4.8) th/mm3 [place] # (Auto) 0.9 (0.0-0.9) th/mm3 Eos # (Auto) 0.4 (0.0-0.4) th/mm3 Baso # (Auto) 0.1 (0.0-0.2) th/mm3 WBC Differential . Differential Comment Auto diff final PT 11.4 (9.8-11.6) sec INR 1.1 Ratio APTT 24.0 L (24.3-30.1) sec Sodium 137 (136-145) meq/L Potassium 4.6 (3.5-5.1) meq/L Chloride 99 (98-107) meq/L Carbon Dioxide 28.3 (21.0-32.0) meq/L Anion Gap 10 (5-15) meq/L BUN 31 H (7-18) mg/dL Creatinine 4.51 H (0.50-1.00) mg/dL Estimated GFR 12 L (>89) mL/min Random Glucose 156 H (74-106) mg/dL Calcium 8.1 L (8.5-10.1) mg/dL Total Bilirubin 0.2 (0.2-1.0) mg/dL AST 33 (15-37) U/L ALT 20 (10-53) U/L Alkaline Phosphatase 161 H (45-117) U/L Troponin I 0.04 (0.02-0.05) ng/mL Total Protein 7.3 (6.4-8.2) g/dL Albumin 2.4 L (3.4-5.0) g/dL Blood Type Antibody Screen MTS Gel Crossmatch 03/12/18 Range/Units 23:35 WBC (4.0-11.0) th/mm3 RBC (4.00-5.30) mil/mm3 Hgb (11.6-15.3) gm/dL Hct (35.0-46.0) % MCV (80.0-100.0) fL MCH (27.0-34.0) pg MCHC (32.0-36.0) % RDW (11.6-17.2) % Plt Count (150-450) th/mm3 MPV (7.0-11.0) fL Prelim Diff (Auto) Neut % (Auto) (16.0-70.0) % Lymph % (Auto) (9.0-44.0) % [place] % (Auto) (0.0-8.0) % Eos % (Auto) (0.0-4.0) % Baso % (Auto) (0.0-2.0) % Neut # (Auto) (1.8-7.7) th/mm3 Lymph # (Auto) (1.0-4.8) th/mm3 [place] # (Auto) (0.0-0.9) th/mm3 Eos # (Auto) (0.0-0.4) th/mm3 Baso # (Auto) (0.0-0.2) th/mm3 WBC Differential Differential Comment PT (9.8-11.6) sec INR Ratio APTT (24.3-30.1) sec Sodium (136-145) meq/L Potassium (3.5-5.1) meq/L Chloride (98-107) meq/L Carbon Dioxide (21.0-32.0) meq/L Anion Gap (5-15) meq/L BUN (7-18) mg/dL Creatinine (0.50-1.00) mg/dL Estimated GFR (>89) mL/min Random Glucose (74-106) mg/dL Calcium (8.5-10.1) mg/dL Total Bilirubin (0.2-1.0) mg/dL AST (15-37) U/L ALT (10-53) U/L Alkaline Phosphatase (45-117) U/L Troponin I (0.02-0.05) ng/mL Total Protein (6.4-8.2) g/dL Albumin (3.4-5.0) g/dL Blood Type O Positive Antibody Screen Negative MTS Gel Crossmatch See Detail Discharge Plan Discharge Disposition Patient Disposition: 30 Still Patient Physicians Team ED Provider: Mendoza Hartman Primary Care Provider: Charu Akbar Attending Provider: Harrison Espinosa Other Providers: Cyrus Ochoa ; Dao Greene Status ED Status: Left Department Discharge Information Discharge Date/Time: 03/13/18 04:05
--- NOTE | 2018-03-13 08:30 | P.CONNP ---
History of Present Illness Service: Nephrology Reason for Consult: ESRD Primary Care Provider: Charu Akbar MD, R3 Family Provider: Charu Akbar MD, R3 Chief Complaint: Hgb 5.3 History of Present Illness: Ms. Bolivar is 73 year old with history of ESRD, on HD MWF. She was admitted with severe anemia, Hemoglobin of 5.8 on admission. She has been having rectal bleeding/black colored stools, and I was not aware of it, patient had not informed us. Hemoglobin was 9.3 as of 02/26/18, last time it was checked in [facility]. Patient has history of right BKA, left hallux amputation, s/p left hemicolectomy. Left colectomy was performed because of recurrent GI bleeding. Biopsy had revealed diverticulosis. Hemicolectomy was performed in September of this year. Review of Systems Constitutional: Reports fatigue, Denies headache(s) Ears, Nose, Mouth, and Throat: Denies abnormal hearing Cardiovascular: Denies chest pain, Denies chest pain at rest Gastrointestinal: Reports abdominal pain, Reports black, tarry stools, Denies coffee ground vomit Musculoskeletal: Denies back pain Endocrine: Denies heat intolerance Hematologic/Lymphatic: Denies easy bruising Allergic/Immunologic: Denies GI upset with certain foods PMFSH - History History Provided By: Patient - Medical History Medical History: Medical History (Last Updated 03/13/18 @ 02:18 by Ken Ritter III, MD, R2) Cataracts, bilateral Depression Diabetes mellitus Dialysis patient Foot abscess GERD (gastroesophageal reflux disease) GI bleeding HTN (hypertension) Hepatitis C Hypothyroid Renal failure - Surgical History Surgical History: Surgical History (Last Updated 03/12/18 @ 23:05 by Juli Robertson) Amputation of leg History of colon resection - Tobacco History Second Hand Smoke Exposure: No Tobacco Use In Past 30 Days: No Smoking Status: Former smoker - Alcohol History How Often Do You Have a Drink Containing Alcohol: Never - Substance Use History Substance History: No History of Abuse - Travel History Recent Travel in the [place] Within the Last 8 Weeks: No Recent Travel Out of the Country Within the Last 8 Weeks: No - Immunization History Tetanus Immunization: Unsure Hx Influenza Vaccine This Season: Yes Medications and Allergies Active Medications: Active Medications Acetaminophen (Tylenol) 650 mg PO Q4H PRN PRN Reason: Temp > 100.4 Dextrose (D50w Vial) 50 ml IV.PUSH UNSCH PRN PRN Reason: PER HYPOGLYCEMIA PROTOCOL Glucagon (Glucagon Inj) 1 mg OTHER PRN PRN PRN Reason: for Hypoglycemia Protocol Sodium Chloride (Ns Inj) 250 mls @ 15 mls/hr IV.SIG ONCE CHANDLER Stop: 03/13/18 17:39 Last Admin: 03/13/18 01:11 Dose: 15 mls/hr Levothyroxine Sodium (Synthroid) 88 mcg PO DAILY@0600 [facility] Last Admin: 03/13/18 05:56 Dose: 88 mcg Mirtazapine (Remeron) 15 mg PO HS CHANDLER Ondansetron HCl (Zofran Inj) 4 mg IV.PUSH Q6H PRN PRN Reason: NAUSEA OR VOMITING Pantoprazole Sodium (Protonix Inj) 40 mg IV.PUSH Q12H [facility] Last Admin: 03/13/18 03:10 Dose: 40 mg Temazepam (Restoril) 15 mg PO HS PRN PRN Reason: INSOMNIA Allergies Allergy/AdvReac Type Severity Reaction Status Date / Time *MDRO Multi-Drug Resistant Allergy Unknown Uncoded 01/31/18 19:51 Organism Home Medications Medication Instructions Recorded Confirmed Type Unable to Obtain Home Meds 03/12/18 03/12/18 History Exam Vital signs: Vital Signs 03/12/18 23:02 03/12/18 23:17 03/12/18 23:33 Temperature 99.4 F Pulse Rate 79 81 76 Respiratory Rate 16 16 Blood Pressure 136/61 125/58 L Pulse Oximetry 100 95 97 03/13/18 01:12 03/13/18 01:28 03/13/18 03:12 Temperature 98.6 F 98.5 F 98.5 F Pulse Rate 73 72 74 Respiratory Rate 16 18 16 Blood Pressure 146/51 H 135/64 141/56 H Pulse Oximetry 98 97 03/13/18 03:31 03/13/18 03:46 03/13/18 04:05 Temperature 98.6 F 98.5 F 98 F Pulse Rate 73 75 74 Respiratory Rate 16 16 18 Blood Pressure 144/60 H 143/66 H 163/73 H Pulse Oximetry 98 97 98 03/13/18 06:25 Temperature 98.4 F Pulse Rate 78 Respiratory Rate 18 Blood Pressure 158/63 H Pulse Oximetry 99 Intake & Output 03/12/18 03/13/18 03/13/18 18:59 06:59 18:59 Intake Total 400 / 400 Balance 400 / 400 Weight 58.967 kg Intake: Intake (Blood Product) Amt 400 / 400 Rbc As-3 Leukoreduced Unit 400 / 400 [id number] Rbc As-3 Leukoreduced Unit 0 / 0 [id number] Other: Date of Last Bowel Movement 03/12/18 Weight On Admission 58.9 kg - Constitutional no acute distress, thin, cachectic, chronically ill appearing - Routine HEENT Exam Head: Present: normocephalic, atraumatic Eye: Present: EOMI, PERRL ENT: Present: mucous membranes moist - Routine Neck Exam Absent: JVD, lymphadenopathy - Routine Chest/Breast/Axilla Exam Axillae: Absent: lymphadenopathy - Routine Respiratory Exam Present: CTA bilaterally - Routine Cardiovascular Exam Present: RRR, S1, S2 - Routine Abdominal Exam Present: soft, normoactive bowel sounds - Routine Extremities Exam Present: AV fistula Comments: right BKA, generalized muscle wasting. - Routine Neurological Exam Present: alert, oriented X3 Results - Lab Results 03/12/18 23:35 03/12/18 23:35 Most recent lab results Calcium 8.1 mg/dL (8.5-10.1) L 03/12/18 23:35 Assessment and Plan - Assessment (1) ESRD (end stage renal disease) on dialysis Code(s): N18.6 - End stage renal disease; Z99.2 - Dependence on renal dialysis Status: Acute Plan: Dialysis will be continued MWF. Monitor fluid and electrolytes. Protect access arm from IV and BP measurements. 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 Needs GI evaluation. Blood transfusion has been ordered. Obtain iron profile. Epogen with dialysis. (3) HTN (hypertension) Code(s): I10 - Essential (primary) hypertension Status: Acute Plan: Monitor. Restart antihypertensives. Will review [facility] records to verify her home medications. (4) Protein-calorie malnutrition, severe Code(s): E43 - Unspecified severe protein-calorie malnutrition Status: Acute - Plan Needs protein supplements and high protein diet. She was receiving parenteral nutrition with dialysis at [facility]. - Attending Attestation Thanks for the consult.
--- NOTE | 2018-03-13 08:43 | P.PNFP ---
Subjective Interval history: Patient seen and examined this morning. Patient appeared comfortable, lying flat in bed in [facility]. She endorsed fatigue and wanting to sleep. She otherwise did not report specific complaints. Specifically denied abdominal or pelvic pain, CP, dyspnea, fevers or chills. She reported she started to notice her rectal bleeding this past Saturday after noticing blood on toilet paper when wiping. She denies any blood in stools or bleeding prior to Saturday, although she does seem to be a poor historian. Reports taking 2 tablets of ibuprofen on Saturday due to right shoulder pain but otherwise denies taking NSAIDs. <Benito Samaniego - 03/13/18 11:55> Results - Labs Result diagrams: 03/14/18 09:32 03/14/18 09:32 <Harrison Espinosa - 03/14/18 14:15> Abnormal lab results 03/13/18 03/14/18 03/14/18 Range/Units 19:47 00:32 09:32 RBC 3.25 L 2.89 L 3.10 L (4.00-5.30) mil/mm3 Hgb 8.4 L 7.8 L 8.1 L (11.6-15.3) gm/dL Hct 26.6 L 24.1 L 25.7 L (35.0-46.0) % MCH 25.7 L 26.2 L (27.0-34.0) pg MCHC 31.4 L 31.6 L (32.0-36.0) % RDW 18.6 H 18.7 H 19.7 H (11.6-17.2) % [place] % (Auto) 9.0 H (0.0-8.0) % Eos % (Auto) 7.6 H (0.0-4.0) % Eos # (Auto) 0.6 H (0.0-0.4) th/mm3 PT (9.8-11.6) sec BUN (7-18) mg/dL Creatinine (0.50-1.00) mg/dL Estimated GFR (>89) mL/min POC Glucose (68-110) mg/dl Alkaline Phosphatase (45-117) U/L Albumin (3.4-5.0) g/dL 03/14/18 03/14/18 03/14/18 Range/Units 09:32 09:32 12:37 RBC (4.00-5.30) mil/mm3 Hgb (11.6-15.3) gm/dL Hct (35.0-46.0) % MCH (27.0-34.0) pg MCHC (32.0-36.0) % RDW (11.6-17.2) % [place] % (Auto) (0.0-8.0) % Eos % (Auto) (0.0-4.0) % Eos # (Auto) (0.0-0.4) th/mm3 PT 11.8 H (9.8-11.6) sec BUN 39 H (7-18) mg/dL Creatinine 7.22 H (0.50-1.00) mg/dL Estimated GFR 7 L (>89) mL/min POC Glucose 116 H (68-110) mg/dl Alkaline Phosphatase 134 H (45-117) U/L Albumin 2.3 L (3.4-5.0) g/dL Short CBC 03/13/18 03/14/18 03/14/18 Range/Units 19:47 00:32 09:32 WBC 9.4 8.7 8.5 (4.0-11.0) th/mm3 Hgb 8.4 L 7.8 L 8.1 L (11.6-15.3) gm/dL Hct 26.6 L 24.1 L 25.7 L (35.0-46.0) % Plt Count 384 D 320 379 (150-450) th/mm3 BMP 03/14/18 09:32 Sodium 141 Potassium 4.4 Chloride 106 Carbon Dioxide 23.3 BUN 39 H Creatinine 7.22 H Calcium 8.6 Cardiac Enzymes 03/13/18 03/14/18 Range/Units 19:47 00:32 Troponin I 0.04 0.04 (0.02-0.05) ng/mL Liver Function 03/14/18 Range/Units 09:32 Total Bilirubin 0.3 (0.2-1.0) mg/dL AST 26 (15-37) U/L ALT 16 (10-53) U/L Alkaline Phosphatase 134 H (45-117) U/L Albumin 2.3 L (3.4-5.0) g/dL <Harrison Espinosa - 03/14/18 14:15> Abnormal lab results 03/12/18 03/12/18 03/12/18 Range/Units 23:35 23:35 23:35 RBC 2.27 L (4.00-5.30) mil/mm3 Hgb 5.8 L* (11.6-15.3) gm/dL Hct 18.5 L* (35.0-46.0) % MCH 25.4 L (27.0-34.0) pg MCHC 31.3 L (32.0-36.0) % RDW 22.1 H (11.6-17.2) % [place] % (Auto) 11.4 H (0.0-8.0) % Eos % (Auto) 5.6 H (0.0-4.0) % APTT 24.0 L (24.3-30.1) sec BUN 31 H (7-18) mg/dL Creatinine 4.51 H (0.50-1.00) mg/dL Estimated GFR 12 L (>89) mL/min Random Glucose 156 H (74-106) mg/dL Calcium 8.1 L (8.5-10.1) mg/dL Alkaline Phosphatase 161 H (45-117) U/L Albumin 2.4 L (3.4-5.0) g/dL MTS Gel Crossmatch 03/12/18 Range/Units 23:35 RBC (4.00-5.30) mil/mm3 Hgb (11.6-15.3) gm/dL Hct (35.0-46.0) % MCH (27.0-34.0) pg MCHC (32.0-36.0) % RDW (11.6-17.2) % [place] % (Auto) (0.0-8.0) % Eos % (Auto) (0.0-4.0) % APTT (24.3-30.1) sec BUN (7-18) mg/dL Creatinine (0.50-1.00) mg/dL Estimated GFR (>89) mL/min Random Glucose (74-106) mg/dL Calcium (8.5-10.1) mg/dL Alkaline Phosphatase (45-117) U/L Albumin (3.4-5.0) g/dL MTS Gel Crossmatch See Detail Short CBC 03/12/18 Range/Units 23:35 WBC 7.8 (4.0-11.0) th/mm3 Hgb 5.8 L* (11.6-15.3) gm/dL Hct 18.5 L* (35.0-46.0) % Plt Count 435 (150-450) th/mm3 BMP 03/12/18 23:35 Sodium 137 Potassium 4.6 Chloride 99 Carbon Dioxide 28.3 BUN 31 H Creatinine 4.51 H Calcium 8.1 L Cardiac Enzymes 03/12/18 Range/Units 23:35 Troponin I 0.04 (0.02-0.05) ng/mL Liver Function 03/12/18 Range/Units 23:35 Total Bilirubin 0.2 (0.2-1.0) mg/dL AST 33 (15-37) U/L ALT 20 (10-53) U/L Alkaline Phosphatase 161 H (45-117) U/L Albumin 2.4 L (3.4-5.0) g/dL <Benito Samaniego - 03/13/18 08:43> Physical Exam Vital signs: Vital Signs 03/13/18 16:00 03/13/18 19:52 03/13/18 20:00 Temperature 98.4 F 98.7 F Pulse Rate 75 76 75 Respiratory Rate 18 19 Blood Pressure 163/73 H 161/77 H Pulse Oximetry 99 95 03/13/18 20:03 03/13/18 21:28 03/14/18 00:00 Temperature 98.0 F Pulse Rate 69 Respiratory Rate 18 18 Blood Pressure 118/56 L Pulse Oximetry 96 96 03/14/18 00:02 03/14/18 00:40 03/14/18 04:00 Temperature 98.3 F Pulse Rate 68 68 Respiratory Rate 18 18 Blood Pressure 153/65 H Pulse Oximetry 93 L 03/14/18 05:04 03/14/18 08:00 03/14/18 09:00 Temperature 98.4 F Pulse Rate 68 61 71 Respiratory Rate 16 Blood Pressure 166/70 H Pulse Oximetry 93 L 03/14/18 12:16 Temperature 98.0 F Pulse Rate 65 Respiratory Rate 16 Blood Pressure 143/65 H Pulse Oximetry 94 L Intake & Output 03/13/18 03/14/18 03/14/18 18:59 06:59 18:59 Intake Total 600 / 600 Balance 600 / 600 Weight 58.9 kg Intake: Oral 600 / 600 Other: Date of Last Bowel Movement 03/12/18 03/13/18 03/14/18 # Bowel Movements 5 4 <Marissa Espinosageny - 03/14/18 14:15> Vital Signs 03/12/18 23:02 03/12/18 23:17 03/12/18 23:33 Temperature 99.4 F Pulse Rate 79 81 76 Respiratory Rate 16 16 Blood Pressure 136/61 125/58 L Pulse Oximetry 100 95 97 03/13/18 01:12 03/13/18 01:28 03/13/18 03:12 Temperature 98.6 F 98.5 F 98.5 F Pulse Rate 73 72 74 Respiratory Rate 16 18 16 Blood Pressure 146/51 H 135/64 141/56 H Pulse Oximetry 98 97 03/13/18 03:31 03/13/18 03:46 03/13/18 04:05 Temperature 98.6 F 98.5 F 98 F Pulse Rate 73 75 74 Respiratory Rate 16 16 18 Blood Pressure 144/60 H 143/66 H 163/73 H Pulse Oximetry 98 97 98 03/13/18 06:25 03/13/18 08:00 Temperature 98.4 F 98.7 F Pulse Rate 78 75 Respiratory Rate 18 16 Blood Pressure 158/63 H 153/68 H Pulse Oximetry 99 97 Intake & Output 03/12/18 03/13/18 03/13/18 18:59 06:59 18:59 Intake Total 400 / 400 Balance 400 / 400 Weight 58.967 kg Intake: Intake (Blood Product) Amt 400 / 400 Rbc As-3 Leukoreduced Unit 400 / 400 [id number] Rbc As-3 Leukoreduced Unit 0 / 0 [id number] Other: Date of Last Bowel Movement 03/12/18 Weight On Admission 58.9 kg <Benito Samaniego - 03/13/18 08:43> Narrative: GENERAL: Elderly AA female lying flat in bed in [facility]. SKIN: Warm and dry. No rashes. HEAD: Normocephalic. Atraumatic. EYES: EOMI. No scleral icterus. No injection or drainage. NECK: Supple, trachea midline. No JVD or lymphadenopathy. CARDIOVASCULAR: Regular rate and rhythm without murmurs, gallops, or rubs. Left foot PT and DP pulses 2+. RESPIRATORY: Breath sounds equal bilaterally. No accessory muscle use. GASTROINTESTINAL: Abdomen soft, non-tender throughout, nondistended, +BS. No guarding or rebound tenderness. MUSCULOSKELETAL: No cyanosis, or edema. Right BKA. <Benito Samaniego - 03/13/18 11:55> Assessment and Plan - Assessment (1) Chronic blood loss anemia Code(s): D50.0 - Iron deficiency anemia secondary to blood loss (chronic) Status: Acute (2) ESRD (end stage renal disease) on dialysis Code(s): N18.6 - End stage renal disease; Z99.2 - Dependence on renal dialysis Status: Acute Plan: 73 year old female with PMH of GI bleed, HTN, ESRD on HD MWF, hypothyroidism, DM , and depression presents with acute on chronic blood loss anemia likely to GI bleed with outpt lab of Hgb 5.3 and Hct 18.1 prior to admission. PLAN: 1. Acute on chronic blood loss anemia -Transfuse 2u PRBCs; hold 2 units -Repeat H/H 8.6/25.6, will continue to monitor -TSH wnl -Discussed with GI via phone, planning for EGD/colonoscopy tomorrow 2. GI Bleed -GI consulted--appreciate recs -Plan as above 3. ESRD on HD -Dr Greene has been consulted--appreciate recs -To continue dialysis MWF -Will continue to monitor fluid intake and electrolytes 4. Hypothyroidism -Continue pt home dose levothyroxine 88 mcg PO daily 5. HTN -Monitor VS -Consider restarting home coreg if H/H remains stable 6. Depression -Continue home dose Mirtazapine 30 mg PO qhs 7. DM -Accu-checks -Patient per review of outpatient records takes Lantus 10 units hs 8. Insomnia -Restoril 15 mg qhs 9. FEN/GI/PPx Fluids: per PO Electrolytes: continue to monitor Nutrition: renal diet, NPO after MN ahead of EGD/colonoscopy tomorrow GI: Protonix 40 mg IV q12h DVT ppx: contraindicated (3) HTN (hypertension) Code(s): I10 - Essential (primary) hypertension Status: Acute (4) Hypothyroid Code(s): E03.9 - Hypothyroidism, unspecified Status: Acute (5) Depression Code(s): F32.9 - Major depressive disorder, single episode, unspecified Status : Acute <Rehannikkijean carlosBenito - 03/13/18 11:39> - Attending Attestation See the residents documentation for details. I saw and evaluated the patient regarding the santo portions of this evaluation and agree with the residents findings and plans as written. Parts of this note were created using [employer] voice recognition software program. While efforts were made to correct any mistakes made by this software, some mistakes, errors, and omissions may remain in the final note that were not caught when the note was originally created. Plan of care was discussed and agreed upon with the patient as specifically documented in the above note. An opportunity to ask questions with explanation was provided. Patient voiced understanding on all information reviewed and discussed. Patient denied wanting GoLYTELY as bowel prep. She stated that she would not do the colonoscopy, GoLYTELY was given to her. Discussed with her about the importance of compliance with her medical treatment during her stay. Patient stated that she would only complete activities, which she believes are important to her health. Discussed with her at length about her current condition, and the need for possible invasive procedures. <Harrison Espinosa - 03/14/18 14:15>
[2018-03-13] MEDS ORDERED: Sod Chloride 0.9% Inj 1,000 ML IV.CONT PRN (09:08)
[2018-03-13] MEDS ORDERED: Gelatin 12 MM/7 MM Topical Foam TOPICAL PRN (09:08)
[2018-03-13] MEDS ORDERED: Albumin Human 25% Inj 100 ML IV.SIG PRN (09:08)
[2018-03-13] MEDS ORDERED: Heparin 10,000 UNITS/10 ML Vial (for IV use) OTHER PRN ×2 (09:08)
[2018-03-13] MEDS ORDERED: Sod Chloride 0.9% Inj 1,000 ML OTHER PRN ×2 (09:08)
--- NOTE | 2018-03-13 10:13 | P.CONGI ---
History of Present Illness Consult date: 03/13/18 Consult reason: Anemia with ? GIB Chief complaint: Anemia, Chronic GI Bleed, CKD History of Present Illness: This is a 73 yo F with ESRD on HD M, W, F, and history of complicated GIB. She was seen by our service in September when she had persistent bleeding S/P colonoscopy which revealed blood throughout the colon, positive bleeding scan indicating active hemorrhage in the transverse colon, S/P repeat colonoscopy with old blood but no site of active bleeding. Pt then underwent angiogram which found no source of hemorrhage and pt ended up undergoing left colectomy and low anterior anastomosis by Dr. De La Cruz. Pt was evaluated again by our service in January for anemia and reports of dark blood in her stool. She underwent EGD but refused colonoscopy at that time. EGD revealed gastritis, 100 cc of bile that was suctioned, and hiatal hernia. Our service has been consulted today to evaluate pt for anemia. She reports black, tarry stools but states this has been going on for awhile. Of note, she takes iron supplements. Also reports noticing some BRB in her stool on Saturday but has not noticed any since. Also reports some nausea on Saturday after dialysis, states secondary to drop in blood pressure. However, she also had some nausea with emesis at her PCP office on Saturday, states was due to having medication on an empty stomach. Denies hematemesis and coffee ground emesis. Denies ETOH and smoking. Did take Ibuprofen on Saturday but prior to this has not had any in months. <Rosario Silva - Last Filed: 03/13/18 09:56> Review of Systems Gastrointestinal: Reports black, tarry stools, Reports bright, red blood in stools, Reports loose stools, Reports nausea, Reports vomiting, Denies abdominal pain, Denies vomiting blood <Rosario Silva - Last Filed: 03/13/18 09:56> PMFSH - History History Provided By: Patient - Medical History Medical History: Medical History (Last Updated 03/13/18 @ 02:18 by Ken Ritter III, MD, R2) Cataracts, bilateral Depression Diabetes mellitus Dialysis patient Foot abscess GERD (gastroesophageal reflux disease) GI bleeding HTN (hypertension) Hepatitis C Hypothyroid Renal failure - Surgical History Surgical History: Surgical History (Last Updated 08/01/18 @ 23:05 by Juli Robertson) Amputation of leg History of colon resection - Tobacco History Second Hand Smoke Exposure: No Tobacco Use In Past 30 Days: No Smoking Status: Former smoker - Alcohol History How Often Do You Have a Drink Containing Alcohol: Never - Substance Use History Substance History: No History of Abuse - Travel History Recent Travel in the [place] Within the Last 8 Weeks: No Recent Travel Out of the Country Within the Last 8 Weeks: No - Immunization History Tetanus Immunization: Unsure Hx Influenza Vaccine This Season: Yes <Rosario Silva - Last Filed: 03/13/18 09:56> - Medical History Medical History: Medical History (Last Updated 03/13/18 @ 02:18 by Ken Ritter III, MD, R2) Cataracts, bilateral Depression Diabetes mellitus Dialysis patient Foot abscess GERD (gastroesophageal reflux disease) GI bleeding HTN (hypertension) Hepatitis C Hypothyroid Renal failure - Surgical History Surgical History: Surgical History (Last Updated 03/12/18 @ 23:05 by Juli Robertson) Amputation of leg History of colon resection <Cyrus Ochoa - Last Filed: 03/13/18 17:48> Medications and Allergies Active Medications: Active Medications Acetaminophen (Tylenol) 650 mg PO Q4H PRN PRN Reason: Temp > 100.4 Acetaminophen (Tylenol) 650 mg PO UNSCH PRN PRN Reason: SEE LABEL COMMENTS Clonidine HCl (Catapres) 0.1 mg PO UNSCH PRN PRN Reason: SEE LABEL COMMENTS Dextrose (D50w Vial) 50 ml IV.PUSH UNSCH PRN PRN Reason: PER HYPOGLYCEMIA PROTOCOL Diphenhydramine HCl (Benadryl) 25 mg PO UNSCH PRN PRN Reason: SEE LABEL COMMENTS Epoetin Néstor (Epogen Inj) 14,000 unit IV.PUSH MoWeFr CHANDLER Gelatin (Gelfoam 12 Mm/7 Mm Topical) 1 foam TOPICAL PRN PRN PRN Reason: help stop bleeding from site Gentamicin Sulfate (Gentamicin Inj) 20 mg OTHER WITH DIALYSIS PRN PRN Reason: Dwell Gentamycin Lock Glucagon (Glucagon Inj) 1 mg OTHER PRN PRN PRN Reason: for Hypoglycemia Protocol Heparin Sodium (Porcine) (Heparin Inj) 8,000 units OTHER WITH DIALYSIS PRN PRN Reason: for machine prime Heparin Sodium (Porcine) (Heparin Inj) 1,000 units OTHER WITH DIALYSIS PRN PRN Reason: Dwell Heparin to Fill Catheter Sodium Chloride (Ns Inj) 250 mls @ 15 mls/hr IV.SIG ONCE [facility] Stop: 03/13/18 17:39 Last Admin: 03/13/18 01:11 Dose: 15 mls/hr Albumin Human (Flexbumin 25% Inj) 100 mls @ 60 mls/hr IV.SIG WITH DIALYSIS PRN PRN Reason: hypotension / volume replace Sodium Chloride (Ns Inj) 1,000 mls @ 0 mls/hr OTHER .Q0M PRN PRN Reason: for prime and rinse back Sodium Chloride (Ns Inj) 1,000 mls @ 200 mls/hr OTHER .Q5H PRN PRN Reason: for dialyzer flush PRN Sodium Chloride (Ns Inj) 1,000 mls @ 0 mls/hr IV.CONT .Q0M PRN PRN Reason: hypotension / volume replace Levothyroxine Sodium (Synthroid) 88 mcg PO DAILY@0600 [facility] Last Admin: 03/13/18 05:56 Dose: 88 mcg Mannitol (Mannitol Inj) 12.5 gm IV.PUSH UNSCH PRN PRN Reason: hypotension / volume replace Mirtazapine (Remeron) 15 mg PO HS [facility] Nitroglycerin (Nitrostat Sl) 0.4 mg SL Q5M PRN PRN Reason: CHEST PAIN Ondansetron HCl (Zofran Inj) 4 mg IV.PUSH Q6H PRN PRN Reason: NAUSEA OR VOMITING Ondansetron HCl (Zofran Inj) 4 mg IV.PUSH UNSCH PRN PRN Reason: NAUSEA OR VOMITING Pantoprazole Sodium (Protonix Inj) 40 mg IV.PUSH Q12H [facility] Last Admin: 03/13/18 03:10 Dose: 40 mg Sodium Chloride (Ns Flush) 5 ml IV.FLUSH PRN PRN PRN Reason: flush each lumen during HD Temazepam (Restoril) 15 mg PO HS PRN PRN Reason: INSOMNIA <Rosario Silva - Last Filed: 03/13/18 09:56> Active Medications: Active Medications Acetaminophen (Tylenol) 650 mg PO Q4H PRN PRN Reason: Temp > 100.4 Acetaminophen (Tylenol) 650 mg PO UNSCH PRN PRN Reason: SEE LABEL COMMENTS Bisacodyl (Dulcolax Ec) 20 mg PO ONCE ONE Stop: 03/13/18 18:01 Last Admin: 03/13/18 17:27 Dose: Not Given Clonidine HCl (Catapres) 0.1 mg PO UNSCH PRN PRN Reason: SEE LABEL COMMENTS Dextrose (D50w Vial) 50 ml IV.PUSH UNSCH PRN PRN Reason: PER HYPOGLYCEMIA PROTOCOL Diphenhydramine HCl (Benadryl) 25 mg PO UNSCH PRN PRN Reason: SEE LABEL COMMENTS Epoetin Néstor (Epogen Inj) 4,000 unit IV.PUSH MoWeFr CHANDLER Epoetin Néstor (Epogen Inj) 10,000 unit IV.PUSH MoWeFr CHANDLER Gelatin (Gelfoam 12 Mm/7 Mm Topical) 1 foam TOPICAL UNSCH PRN PRN Reason: help stop bleeding from site Gentamicin Sulfate (Gentamicin Inj) 20 mg OTHER WITH DIALYSIS PRN PRN Reason: Dwell Gentamycin Lock Glucagon (Glucagon Inj) 1 mg OTHER PRN PRN PRN Reason: for Hypoglycemia Protocol Heparin Sodium (Porcine) (Heparin Inj) 8,000 units OTHER WITH DIALYSIS PRN PRN Reason: for machine prime Heparin Sodium (Porcine) (Heparin Inj) 0 units OTHER WITH DIALYSIS PRN PRN Reason: Dwell Heparin to Fill Catheter Albumin Human (Flexbumin 25% Inj) 100 mls @ 60 mls/hr IV.SIG WITH DIALYSIS PRN PRN Reason: hypotension / volume replace Sodium Chloride (Ns Inj) 1,000 mls @ 0 mls/hr OTHER .Q0M PRN PRN Reason: for prime and rinse back Sodium Chloride (Ns Inj) 1,000 mls @ 200 mls/hr OTHER .Q5H PRN PRN Reason: for dialyzer flush PRN Sodium Chloride (Ns Inj) 1,000 mls @ 0 mls/hr IV.CONT .Q0M PRN PRN Reason: hypotension / volume replace Levothyroxine Sodium (Synthroid) 88 mcg PO DAILY@0600 [facility] Last Admin: 03/13/18 05:56 Dose: 88 mcg Mannitol (Mannitol Inj) 12.5 gm IV.PUSH UNSCH PRN PRN Reason: hypotension / volume replace Mirtazapine (Remeron) 15 mg PO HS [facility] Nitroglycerin (Nitrostat Sl) 0.4 mg SL Q5M PRN PRN Reason: CHEST PAIN Ondansetron HCl (Zofran Inj) 4 mg IV.PUSH Q6H PRN PRN Reason: NAUSEA OR VOMITING Last Admin: 03/13/18 17:25 Dose: 4 mg Ondansetron HCl (Zofran Inj) 4 mg IV.PUSH UNSCH PRN PRN Reason: NAUSEA OR VOMITING Pantoprazole Sodium (Protonix Inj) 40 mg IV.PUSH Q12H [facility] Last Admin: 03/13/18 15:02 Dose: 40 mg Sodium Chloride (Ns Flush) 5 ml IV.FLUSH UNSCH PRN PRN Reason: flush each lumen during HD Temazepam (Restoril) 15 mg PO HS PRN PRN Reason: INSOMNIA <Cyrus Ochoa - Last Filed: 03/13/18 17:48> Allergies Allergy/AdvReac Type Severity Reaction Status Date / Time *MDRO Multi-Drug Resistant Allergy Unknown Uncoded 01/31/18 19:51 Organism Home Medications Medication Instructions Recorded Confirmed Type Unable to Obtain Home Meds 03/12/18 03/12/18 History Exam Vital signs: Vital Signs 03/12/18 23:02 03/12/18 23:17 03/12/18 23:33 Temperature 99.4 F Pulse Rate 79 81 76 Respiratory Rate 16 16 Blood Pressure 136/61 125/58 L Pulse Oximetry 100 95 97 03/13/18 01:12 03/13/18 01:28 03/13/18 03:12 Temperature 98.6 F 98.5 F 98.5 F Pulse Rate 73 72 74 Respiratory Rate 16 18 16 Blood Pressure 146/51 H 135/64 141/56 H Pulse Oximetry 98 97 03/13/18 03:31 03/13/18 03:46 03/13/18 04:05 Temperature 98.6 F 98.5 F 98 F Pulse Rate 73 75 74 Respiratory Rate 16 16 18 Blood Pressure 144/60 H 143/66 H 163/73 H Pulse Oximetry 98 97 98 03/13/18 06:25 03/13/18 08:00 Temperature 98.4 F 98.7 F Pulse Rate 78 75 Respiratory Rate 18 16 Blood Pressure 158/63 H 153/68 H Pulse Oximetry 99 97 Intake & Output 03/12/18 03/13/18 03/13/18 18:59 06:59 18:59 Intake Total 400 / 400 Balance 400 / 400 Weight 58.967 kg Intake: Intake (Blood Product) Amt 400 / 400 Rbc As-3 Leukoreduced Unit 400 / 400 [id number] Rbc As-3 Leukoreduced Unit 0 / 0 [id number] Other: Date of Last Bowel Movement 03/12/18 03/12/18 Weight On Admission 58.9 kg - Constitutional no acute distress - Routine HEENT Exam Head: Present: normocephalic, atraumatic - Routine Respiratory Exam Absent: accessory muscle use - Routine Abdominal Exam Present: soft, normoactive bowel sounds. Absent: tenderness, distended - Routine Skin Exam Present: dry, warm - Routine Neurological Exam Present: alert, oriented X3 <Rosario Silva - Last Filed: 03/13/18 09:56> Vital signs: Vital Signs 03/12/18 23:02 03/12/18 23:17 03/12/18 23:33 Temperature 99.4 F Pulse Rate 79 81 76 Respiratory Rate 16 16 Blood Pressure 136/61 125/58 L Pulse Oximetry 100 95 97 03/13/18 01:12 03/13/18 01:28 03/13/18 03:12 Temperature 98.6 F 98.5 F 98.5 F Pulse Rate 73 72 74 Respiratory Rate 16 18 16 Blood Pressure 146/51 H 135/64 141/56 H Pulse Oximetry 98 97 03/13/18 03:31 03/13/18 03:46 03/13/18 04:05 Temperature 98.6 F 98.5 F 98 F Pulse Rate 73 75 74 Respiratory Rate 16 16 18 Blood Pressure 144/60 H 143/66 H 163/73 H Pulse Oximetry 98 97 98 03/13/18 06:25 03/13/18 08:00 03/13/18 11:55 Temperature 98.4 F 98.7 F 98.2 F Pulse Rate 78 75 70 Respiratory Rate 18 16 18 Blood Pressure 158/63 H 153/68 H 164/77 H Pulse Oximetry 99 97 98 03/13/18 16:00 Temperature 98.4 F Pulse Rate 75 Respiratory Rate 18 Blood Pressure 163/73 H Pulse Oximetry 99 Intake & Output 03/12/18 03/13/18 03/13/18 18:59 06:59 18:59 Intake Total 400 / 400 Balance 400 / 400 Weight 58.967 kg Intake: Intake (Blood Product) Amt 400 / 400 Rbc As-3 Leukoreduced Unit 400 / 400 [id number] Rbc As-3 Leukoreduced Unit 0 / 0 [id number] Other: Date of Last Bowel Movement 03/12/18 03/12/18 Weight On Admission 58.9 kg <Cyrus Ochoa - Last Filed: 03/13/18 17:48> Results - Labs CBC & Chem 7: 03/12/18 23:35 03/12/18 23:35 Labs: Laboratory Results - last 24 hr 03/12/18 03/12/18 03/12/18 23:35 23:35 23:35 WBC 7.8 RBC 2.27 L Hgb 5.8 L* Hct 18.5 L* MCV 81.1 MCH 25.4 L MCHC 31.3 L RDW 22.1 H Plt Count 435 MPV 9.0 Prelim Diff (Auto) [employer] Neut % (Auto) 62.7 Lymph % (Auto) 19.3 [place] % (Auto) 11.4 H Eos % (Auto) 5.6 H Baso % (Auto) 1.0 Neut # (Auto) 4.9 Lymph # (Auto) 1.5 [place] # (Auto) 0.9 Eos # (Auto) 0.4 Baso # (Auto) 0.1 WBC Differential . Differential Comment Auto diff final PT 11.4 INR 1.1 APTT 24.0 L Sodium 137 Potassium 4.6 Chloride 99 Carbon Dioxide 28.3 Anion Gap 10 BUN 31 H Creatinine 4.51 H Estimated GFR 12 L Random Glucose 156 H Calcium 8.1 L Total Bilirubin 0.2 AST 33 ALT 20 Alkaline Phosphatase 161 H Troponin I 0.04 Total Protein 7.3 Albumin 2.4 L Blood Type Antibody Screen MTS Gel Crossmatch 03/12/18 23:35 WBC RBC Hgb Hct MCV MCH MCHC RDW Plt Count MPV Prelim Diff (Auto) Neut % (Auto) Lymph % (Auto) [place] % (Auto) Eos % (Auto) Baso % (Auto) Neut # (Auto) Lymph # (Auto) [place] # (Auto) Eos # (Auto) Baso # (Auto) WBC Differential Differential Comment PT INR APTT Sodium Potassium Chloride Carbon Dioxide Anion Gap BUN Creatinine Estimated GFR Random Glucose Calcium Total Bilirubin AST ALT Alkaline Phosphatase Troponin I Total Protein Albumin Blood Type O Positive Antibody Screen Negative MTS Gel Crossmatch See Detail <Rosario Silva - Last Filed: 03/13/18 09:56> - Labs CBC & Chem 7: 03/13/18 10:46 03/12/18 23:35 Labs: Laboratory Results - last 24 hr 03/12/18 03/12/18 03/12/18 23:35 23:35 23:35 WBC 7.8 RBC 2.27 L Hgb 5.8 L* Hct 18.5 L* MCV 81.1 MCH 25.4 L MCHC 31.3 L RDW 22.1 H Plt Count 435 MPV 9.0 Prelim Diff (Auto) [employer] Neut % (Auto) 62.7 Lymph % (Auto) 19.3 [place] % (Auto) 11.4 H Eos % (Auto) 5.6 H Baso % (Auto) 1.0 Neut # (Auto) 4.9 Lymph # (Auto) 1.5 [place] # (Auto) 0.9 Eos # (Auto) 0.4 Baso # (Auto) 0.1 WBC Differential . Differential Comment Auto diff final PT 11.4 INR 1.1 APTT 24.0 L Sodium 137 Potassium 4.6 Chloride 99 Carbon Dioxide 28.3 Anion Gap 10 BUN 31 H Creatinine 4.51 H Estimated GFR 12 L Random Glucose 156 H Calcium 8.1 L Iron TIBC % Saturation Total Bilirubin 0.2 AST 33 ALT 20 Alkaline Phosphatase 161 H Troponin I 0.04 Total Protein 7.3 Albumin 2.4 L TSH Blood Type Antibody Screen MTS Gel Crossmatch 03/12/18 03/13/18 03/13/18 23:35 10:46 10:46 WBC 8.4 RBC 3.09 L Hgb 8.6 L D Hct 25.6 L MCV 82.9 MCH 27.7 MCHC 33.4 RDW 18.9 H D Plt Count 292 D MPV 8.8 Prelim Diff (Auto) Neut % (Auto) Lymph % (Auto) [place] % (Auto) Eos % (Auto) Baso % (Auto) Neut # (Auto) Lymph # (Auto) [place] # (Auto) Eos # (Auto) Baso # (Auto) WBC Differential Differential Comment PT INR APTT Sodium Potassium Chloride Carbon Dioxide Anion Gap BUN Creatinine Estimated GFR Random Glucose Calcium Iron 35 L TIBC 165 L % Saturation 21.2 Total Bilirubin AST ALT Alkaline Phosphatase Troponin I 0.05 Total Protein Albumin TSH 2.440 Blood Type O Positive Antibody Screen Negative MTS Gel Crossmatch See Detail <Cyrus Ochoa - Last Filed: 03/13/18 17:48> Assessment and Plan - Plan Assessment: - Anemia with reports of BRB in stool on Saturday and black, tarry stools with history of complicated GIB requiring left colectomy. States one episodes of BRB in her stool on Saturday, has not noticed any since. Also complaining of black, tarry stools states this has been going on for a long time. Of note, on iron supplements. Also reports daily diarrhea with incontinence, 2-3 episodes a day. Also had some nausea on Saturday after dialysis and again on Saturday with emesis, denies hematemesis and coffee ground emesis September when she had persistent bleeding S/P colonoscopy which revealed blood throughout the colon, positive bleeding scan indicating active hemorrhage in the transverse colon, S/P repeat colonoscopy with old blood but no site of active bleeding. Pt then underwent angiogram which found no source of hemorrhage and pt ended up undergoing left colectomy and low anterior anastomosis by Dr. De La Cruz. Evaluated by our service in January: EGD but refused colonoscopy at that time. EGD revealed gastritis, 100 cc of bile that was suctioned, and hiatal hernia. - ESRD on HD M, W,F Pt refusing colonoscopy unless she gets to eat breakfast, also states she will not drink Gol[place] Plan: EGD and colonoscopy tomorrow Obtain consent Can eat breakfast Than start clear liquids Dulcolax prep NPO after MN SSE x 2 in AM Monitor H/H Further recommendations to follow Pt has been seen and examined by myself and Dr. Ochoa and this note is written on his behalf <Rosario Silva - Last Filed: 03/13/18 09:56> - Plan Seen and examined with [employer], Egd/colonoscopy planned for tomorrow. Monitor labs. Ernst <Cyrus Ochoa - Last Filed: 03/13/18 17:48>
[2018-03-13 11:20] LABS: Hematocrit 25.6 % (35.0-46.0); Hemoglobin 8.6 gm/dL (11.6-15.3); Mean Corpuscular HGB Conc 33.4 % (32.0-36.0); Mean Corpuscular Hemoglobin 27.7 pg (27.0-34.0); Mean Corpuscular Volume 82.9 fL (80.0-100.0); Mean Platelet Volume 8.8 fL (7.0-11.0); Platelet Count 292 th/mm3 (150-450); Red Blood Count 3.09 mil/mm3 (4.00-5.30); Red Cell Distribution Width 18.9 % (11.6-17.2); White Blood Count 8.4 th/mm3 (4.0-11.0)
[2018-03-13 11:45] LABS: % Iron Saturation 21.2 % (20-50)
[2018-03-13 11:54] LABS: Thyroid Stimulating Hormone 2.44 uIU/mL (0.358-3.740); Troponin I 0.05 ng/mL (0.02-0.05)
--- NOTE | 2018-03-13 16:08 | ECG ---
Date Performed: 03/12/2018 Time Performed: 23:20:34 PTAGE: 73 years EKG: Sinus rhythm POSSIBLE RIGHT VENTRICULAR CONDUCTION DELAY SEPTAL MYOCARDIAL INFARCTION MODERATE T-WAVE ABNORMALITY , CONSIDER INFERIOR ISCHEMIA. When compared to previous tracing, inferolateral ST-T wave Changes are more pronouncedthan prior tracing. Can not rule out ischemia. ABNORMAL ECG PREVIOUS TRACING : 09/26/2017 13.45.13 DOCTOR: Dwight Arriaga Interpretating Date/Time 03/13/2018 16:07:52
[2018-03-13] MEDS ORDERED: Magnesium Citrate Liq 300 ML Bottle PO ONE (20:00)
[2018-03-13 20:03] LABS: Hematocrit 26.6 % (35.0-46.0); Hemoglobin 8.4 gm/dL (11.6-15.3); Mean Corpuscular HGB Conc 31.4 % (32.0-36.0); Mean Corpuscular Hemoglobin 25.7 pg (27.0-34.0); Mean Corpuscular Volume 81.9 fL (80.0-100.0); Platelet Count 384 th/mm3 (150-450); Red Blood Count 3.25 mil/mm3 (4.00-5.30); Red Cell Distribution Width 18.6 % (11.6-17.2); White Blood Count 9.4 th/mm3 (4.0-11.0)
[2018-03-13] MEDS: Acetaminophen 325 MG Tablet PO PRN (20:58)
[2018-03-13] MEDS: Mirtazapine 15 MG Tablet PO SCH (20:59)
[2018-03-13] MEDS: Carvedilol 12.5 MG Tablet PO SCH (20:59)
[2018-03-14 00:51] LABS: Hematocrit 24.1 % (35.0-46.0); Hemoglobin 7.8 gm/dL (11.6-15.3); Mean Corpuscular HGB Conc 32.6 % (32.0-36.0); Mean Corpuscular Hemoglobin 27.1 pg (27.0-34.0); Mean Corpuscular Volume 83.3 fL (80.0-100.0); Platelet Count 320 th/mm3 (150-450); Red Blood Count 2.89 mil/mm3 (4.00-5.30); Red Cell Distribution Width 18.7 % (11.6-17.2); White Blood Count 8.7 th/mm3 (4.0-11.0)
[2018-03-14] MEDS: Pantoprazole Inj 40 MG Vial IV.PUSH SCH ×2 (03:21→17:39)
[2018-03-14] MEDS ORDERED: Chlorhexidine Gluconate 2% 1 Pack (2 Cloths) TOPICAL SCH (04:45)
[2018-03-14] MEDS ORDERED: Sodium Chlor 0.9% Inj 500 ML IV.SIG SCH (05:00)
[2018-03-14] MEDS: Carvedilol 12.5 MG Tablet PO SCH ×4 (05:27→21:15)
[2018-03-14] MEDS: Levothyroxine 88 MCG Tablet PO SCH (05:28)
[2018-03-14] MEDS ORDERED: Epoetin Alfa Inj 4,000 UNIT/ML Vial IV.PUSH SCH (09:00)
[2018-03-14 09:46] LABS: Baso % (Auto) 0.5 % (0.0-2.0); Eos # (Auto) 0.6 th/mm3 (0.0-0.4); Eos % (Auto) 7.6 % (0.0-4.0); Hematocrit 25.7 % (35.0-46.0); Hemoglobin 8.1 gm/dL (11.6-15.3); Lymph # (Auto) 1.4 th/mm3 (1.0-4.8); Lymph % (Auto) 16.7 % (9.0-44.0); Mean Corpuscular HGB Conc 31.6 % (32.0-36.0); Mean Corpuscular Hemoglobin 26.2 pg (27.0-34.0); Mean Platelet Volume 8.8 fL (7.0-11.0); Mono # (Auto) 0.8 th/mm3 (0.0-0.9); Neut # (Auto) 5.6 th/mm3 (1.8-7.7); Neut % (Auto) 66.2 % (16.0-70.0); Platelet Count 379 th/mm3 (150-450); Red Cell Distribution Width 19.7 % (11.6-17.2); White Blood Count 8.5 th/mm3 (4.0-11.0)
[2018-03-14 09:55] LABS: INR 1.2 Ratio; Prothrombin Time 11.8 sec (9.8-11.6)
[2018-03-14] MEDS ORDERED: Dextrose 5%/NaCl 0.9% Inj 1,000 ML IV.CONT SCH (10:00)
[2018-03-14] MEDS ORDERED: Dextrose 50% in Water 50 ML Vial IV.PUSH PRN (10:00)
--- NOTE | 2018-03-14 10:16 | P.PNNP ---
Subjective Interval history: She is NPO for EGD/colonoscopy this morning. States she had rectal bleedign overnight. Due for dialysis. <Teresa Parekh - Last Filed: 03/14/18 10:12> Physical Exam Vital signs: Vital Signs 03/13/18 11:55 03/13/18 16:00 03/13/18 19:52 Temperature 98.2 F 98.4 F Pulse Rate 70 75 76 Respiratory Rate 18 18 Blood Pressure 164/77 H 163/73 H Pulse Oximetry 98 99 03/13/18 20:00 03/13/18 20:03 03/13/18 21:28 Temperature 98.7 F Pulse Rate 75 Respiratory Rate 19 18 Blood Pressure 161/77 H Pulse Oximetry 95 96 03/14/18 00:00 03/14/18 00:02 03/14/18 00:40 Temperature 98.0 F Pulse Rate 69 68 Respiratory Rate 18 18 Blood Pressure 118/56 L Pulse Oximetry 96 03/14/18 04:00 03/14/18 05:04 03/14/18 08:00 Temperature 98.3 F 98.4 F Pulse Rate 68 68 61 Respiratory Rate 18 16 Blood Pressure 153/65 H 166/70 H Pulse Oximetry 93 L 92 L Intake & Output 03/13/18 03/14/18 03/14/18 18:59 06:59 18:59 Intake Total 600 / 600 Balance 600 / 600 Weight 58.9 kg Intake: Oral 600 / 600 Other: Date of Last Bowel Movement 03/12/18 03/13/18 # Bowel Movements 5 4 - Constitutional no acute distress, thin, cachectic, chronically ill appearing, cooperative - Routine HEENT Exam Head: Present: normocephalic - Routine Neck Exam Present: supple, full ROM - Routine Respiratory Exam Present: CTA bilaterally. Absent: accessory muscle use - Routine Cardiovascular Exam Present: RRR, S1, S2 - Routine Abdominal Exam Present: soft, normoactive bowel sounds - Routine Extremities Exam Present: amputation, vascular access. Absent: edema - Routine Skin Exam Present: intact, warm - Routine Neurological Exam Present: alert, oriented X3 - Detailed Neurological Exam: Coma Scale Eye Opening: Spontaneous Verbal Response: Oriented Motor Response: Obey commands [place] Coma Scale Total: 15 - Routine Psychiatric Exam Present: normal affect, normal thought process <Teresa Parekh - Last Filed: 03/14/18 10:12> Vital signs: Vital Signs 03/13/18 16:00 03/13/18 19:52 03/13/18 20:00 Temperature 98.4 F 98.7 F Pulse Rate 75 76 75 Respiratory Rate 18 19 Blood Pressure 163/73 H 161/77 H Pulse Oximetry 99 95 03/13/18 20:03 03/13/18 21:28 03/14/18 00:00 Temperature 98.0 F Pulse Rate 69 Respiratory Rate 18 18 Blood Pressure 118/56 L Pulse Oximetry 96 96 03/14/18 00:02 03/14/18 00:40 03/14/18 04:00 Temperature 98.3 F Pulse Rate 68 68 Respiratory Rate 18 18 Blood Pressure 153/65 H Pulse Oximetry 93 L 03/14/18 05:04 03/14/18 08:00 03/14/18 09:00 Temperature 98.4 F Pulse Rate 68 61 71 Respiratory Rate 16 Blood Pressure 166/70 H Pulse Oximetry 93 L 03/14/18 12:16 Temperature 98.0 F Pulse Rate 65 Respiratory Rate 16 Blood Pressure 143/65 H Pulse Oximetry 94 L Intake & Output 03/13/18 03/14/18 03/14/18 18:59 06:59 18:59 Intake Total 600 / 600 Balance 600 / 600 Weight 58.9 kg Intake: Oral 600 / 600 Other: Date of Last Bowel Movement 03/12/18 03/13/18 03/14/18 # Bowel Movements 5 4 <Dao Greene - Last Filed: 03/14/18 14:51> Assessment and Plan - Assessment (1) ESRD (end stage renal disease) on dialysis Code(s): N18.6 - End stage renal disease; Z99.2 - Dependence on renal dialysis Status: Acute Plan: Dialysis will be continued MWF. Due today. Monitor fluid and electrolytes. Protect access arm from IV and BP measurements. High protein diet should be ordered with supplements. 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 GI has evaluated Blood transfusion given 8/2, 2 units. Hb low but better. Epogen (high dose) ordered with dialysis. Start Venofer for iron deficiency. (3) HTN (hypertension) Code(s): I10 - Essential (primary) hypertension Status: Acute Plan: Monitor BP. On Carvedilol (4) Protein-calorie malnutrition, severe Code(s): E43 - Unspecified severe protein-calorie malnutrition Status: Acute Plan: Needs protein supplements and high protein diet. She was receiving parenteral nutrition with dialysis at [facility]. 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 EGD and colonoscopy today. Hemoglobin improved after blood transfusion. Dialysis MWF. <Dao Greene - Last Filed: 03/14/18 14:51>
[2018-03-14 10:17] LABS: Alanine Aminotransferase 16 U/L (10-53); Albumin 2.3 g/dL (3.4-5.0); Alkaline Phosphatase 134 U/L (45-117); Anion Gap 12 meq/L (5-15); Aspartate Aminotransferase 26 U/L (15-37); Blood Urea Nitrogen 39 mg/dL (7-18); Calcium 8.6 mg/dL (8.5-10.1); Carbon Dioxide 23.3 meq/L (21.0-32.0); Chloride 106 meq/L (98-107); Glomerular Filtration Rate 7 mL/min (>89); Glucose,Random 75 mg/dL (74-106); Potassium 4.4 meq/L (3.5-5.1); Sodium 141 meq/L (136-145); Total Protein 6.8 g/dL (6.4-8.2)
--- NOTE | 2018-03-14 10:24 | P.PNFP ---
Subjective Interval history: Overnight patient reportedly had episode of rectal bleeding and visible blood when having a BM. Patient herself denies continued rectal bleeding. Specifically denies abdominal pain or cramping. Otherwise does not report complaints. Remains afebrile. BPs elevated up to 160s/70s. Patient to go for EGD/colonoscopy this AM followed by dialysis. <Benito Samaniego - 03/14/18 12:10> Results - Labs Result diagrams: 03/14/18 09:32 03/14/18 09:32 <Harrison Espinosa - 03/14/18 14:18> Abnormal lab results 03/13/18 03/14/18 03/14/18 Range/Units 19:47 00:32 09:32 RBC 3.25 L 2.89 L 3.10 L (4.00-5.30) mil/mm3 Hgb 8.4 L 7.8 L 8.1 L (11.6-15.3) gm/dL Hct 26.6 L 24.1 L 25.7 L (35.0-46.0) % MCH 25.7 L 26.2 L (27.0-34.0) pg MCHC 31.4 L 31.6 L (32.0-36.0) % RDW 18.6 H 18.7 H 19.7 H (11.6-17.2) % [place] % (Auto) 9.0 H (0.0-8.0) % Eos % (Auto) 7.6 H (0.0-4.0) % Eos # (Auto) 0.6 H (0.0-0.4) th/mm3 PT (9.8-11.6) sec BUN (7-18) mg/dL Creatinine (0.50-1.00) mg/dL Estimated GFR (>89) mL/min POC Glucose (68-110) mg/dl Alkaline Phosphatase (45-117) U/L Albumin (3.4-5.0) g/dL 03/14/18 03/14/18 03/14/18 Range/Units 09:32 09:32 12:37 RBC (4.00-5.30) mil/mm3 Hgb (11.6-15.3) gm/dL Hct (35.0-46.0) % MCH (27.0-34.0) pg MCHC (32.0-36.0) % RDW (11.6-17.2) % [place] % (Auto) (0.0-8.0) % Eos % (Auto) (0.0-4.0) % Eos # (Auto) (0.0-0.4) th/mm3 PT 11.8 H (9.8-11.6) sec BUN 39 H (7-18) mg/dL Creatinine 7.22 H (0.50-1.00) mg/dL Estimated GFR 7 L (>89) mL/min POC Glucose 116 H (68-110) mg/dl Alkaline Phosphatase 134 H (45-117) U/L Albumin 2.3 L (3.4-5.0) g/dL Short CBC 03/13/18 03/14/18 03/14/18 Range/Units 19:47 00:32 09:32 WBC 9.4 8.7 8.5 (4.0-11.0) th/mm3 Hgb 8.4 L 7.8 L 8.1 L (11.6-15.3) gm/dL Hct 26.6 L 24.1 L 25.7 L (35.0-46.0) % Plt Count 384 D 320 379 (150-450) th/mm3 BMP 03/14/18 09:32 Sodium 141 Potassium 4.4 Chloride 106 Carbon Dioxide 23.3 BUN 39 H Creatinine 7.22 H Calcium 8.6 Cardiac Enzymes 03/13/18 03/14/18 Range/Units 19:47 00:32 Troponin I 0.04 0.04 (0.02-0.05) ng/mL Liver Function 03/14/18 Range/Units 09:32 Total Bilirubin 0.3 (0.2-1.0) mg/dL AST 26 (15-37) U/L ALT 16 (10-53) U/L Alkaline Phosphatase 134 H (45-117) U/L Albumin 2.3 L (3.4-5.0) g/dL <Harrison Espinosa - 03/14/18 14:18> Abnormal lab results 03/13/18 03/13/18 03/13/18 Range/Units 10:46 10:46 19:47 RBC 3.09 L 3.25 L (4.00-5.30) mil/mm3 Hgb 8.6 L D 8.4 L (11.6-15.3) gm/dL Hct 25.6 L 26.6 L (35.0-46.0) % MCH 25.7 L (27.0-34.0) pg MCHC 31.4 L (32.0-36.0) % RDW 18.9 H D 18.6 H (11.6-17.2) % [place] % (Auto) (0.0-8.0) % Eos % (Auto) (0.0-4.0) % Eos # (Auto) (0.0-0.4) th/mm3 PT (9.8-11.6) sec BUN (7-18) mg/dL Creatinine (0.50-1.00) mg/dL Estimated GFR (>89) mL/min Iron 35 L (50-170) mcg/dL TIBC 165 L (250-450) mcg/dL Alkaline Phosphatase (45-117) U/L Albumin (3.4-5.0) g/dL 03/14/18 03/14/18 03/14/18 Range/Units 00:32 09:32 09:32 RBC 2.89 L 3.10 L (4.00-5.30) mil/mm3 Hgb 7.8 L 8.1 L (11.6-15.3) gm/dL Hct 24.1 L 25.7 L (35.0-46.0) % MCH 26.2 L (27.0-34.0) pg MCHC 31.6 L (32.0-36.0) % RDW 18.7 H 19.7 H (11.6-17.2) % [place] % (Auto) 9.0 H (0.0-8.0) % Eos % (Auto) 7.6 H (0.0-4.0) % Eos # (Auto) 0.6 H (0.0-0.4) th/mm3 PT 11.8 H (9.8-11.6) sec BUN (7-18) mg/dL Creatinine (0.50-1.00) mg/dL Estimated GFR (>89) mL/min Iron (50-170) mcg/dL TIBC (250-450) mcg/dL Alkaline Phosphatase (45-117) U/L Albumin (3.4-5.0) g/dL 03/14/18 Range/Units 09:32 RBC (4.00-5.30) mil/mm3 Hgb (11.6-15.3) gm/dL Hct (35.0-46.0) % MCH (27.0-34.0) pg MCHC (32.0-36.0) % RDW (11.6-17.2) % [place] % (Auto) (0.0-8.0) % Eos % (Auto) (0.0-4.0) % Eos # (Auto) (0.0-0.4) th/mm3 PT (9.8-11.6) sec BUN 39 H (7-18) mg/dL Creatinine 7.22 H (0.50-1.00) mg/dL Estimated GFR 7 L (>89) mL/min Iron (50-170) mcg/dL TIBC (250-450) mcg/dL Alkaline Phosphatase 134 H (45-117) U/L Albumin 2.3 L (3.4-5.0) g/dL Short CBC 03/13/18 03/13/18 03/14/18 Range/Units 10:46 19:47 00:32 WBC 8.4 9.4 8.7 (4.0-11.0) th/mm3 Hgb 8.6 L D 8.4 L 7.8 L (11.6-15.3) gm/dL Hct 25.6 L 26.6 L 24.1 L (35.0-46.0) % Plt Count 292 D 384 D 320 (150-450) th/mm3 03/14/18 Range/Units 09:32 WBC 8.5 (4.0-11.0) th/mm3 Hgb 8.1 L (11.6-15.3) gm/dL Hct 25.7 L (35.0-46.0) % Plt Count 379 (150-450) th/mm3 BMP 03/14/18 09:32 Sodium 141 Potassium 4.4 Chloride 106 Carbon Dioxide 23.3 BUN 39 H Creatinine 7.22 H Calcium 8.6 Cardiac Enzymes 03/13/18 03/13/18 03/14/18 Range/Units 10:46 19:47 00:32 Troponin I 0.05 0.04 0.04 (0.02-0.05) ng/mL Liver Function 03/14/18 Range/Units 09:32 Total Bilirubin 0.3 (0.2-1.0) mg/dL AST 26 (15-37) U/L ALT 16 (10-53) U/L Alkaline Phosphatase 134 H (45-117) U/L Albumin 2.3 L (3.4-5.0) g/dL <Madyson Samaniegosh - 03/14/18 10:24> Physical Exam Vital signs: Vital Signs 03/13/18 16:00 03/13/18 19:52 03/13/18 20:00 Temperature 98.4 F 98.7 F Pulse Rate 75 76 75 Respiratory Rate 18 19 Blood Pressure 163/73 H 161/77 H Pulse Oximetry 99 95 03/13/18 20:03 03/13/18 21:28 03/14/18 00:00 Temperature 98.0 F Pulse Rate 69 Respiratory Rate 18 18 Blood Pressure 118/56 L Pulse Oximetry 96 96 03/14/18 00:02 03/14/18 00:40 03/14/18 04:00 Temperature 98.3 F Pulse Rate 68 68 Respiratory Rate 18 18 Blood Pressure 153/65 H Pulse Oximetry 93 L 03/14/18 05:04 03/14/18 08:00 03/14/18 09:00 Temperature 98.4 F Pulse Rate 68 61 71 Respiratory Rate 16 Blood Pressure 166/70 H Pulse Oximetry 93 L 03/14/18 12:16 Temperature 98.0 F Pulse Rate 65 Respiratory Rate 16 Blood Pressure 143/65 H Pulse Oximetry 94 L Intake & Output 03/13/18 03/14/18 03/14/18 18:59 06:59 18:59 Intake Total 600 / 600 Balance 600 / 600 Weight 58.9 kg Intake: Oral 600 / 600 Other: Date of Last Bowel Movement 03/12/18 03/13/18 03/14/18 # Bowel Movements 5 4 <Harrison Espinosa - 03/14/18 14:18> Vital Signs 03/13/18 11:55 03/13/18 16:00 03/13/18 19:52 Temperature 98.2 F 98.4 F Pulse Rate 70 75 76 Respiratory Rate 18 18 Blood Pressure 164/77 H 163/73 H Pulse Oximetry 98 99 03/13/18 20:00 03/13/18 20:03 03/13/18 21:28 Temperature 98.7 F Pulse Rate 75 Respiratory Rate 19 18 Blood Pressure 161/77 H Pulse Oximetry 95 96 03/14/18 00:00 03/14/18 00:02 03/14/18 00:40 Temperature 98.0 F Pulse Rate 69 68 Respiratory Rate 18 18 Blood Pressure 118/56 L Pulse Oximetry 96 03/14/18 04:00 03/14/18 05:04 03/14/18 08:00 Temperature 98.3 F 98.4 F Pulse Rate 68 68 61 Respiratory Rate 18 16 Blood Pressure 153/65 H 166/70 H Pulse Oximetry 93 L 92 L Intake & Output 03/13/18 03/14/18 03/14/18 18:59 06:59 18:59 Intake Total 600 / 600 Balance 600 / 600 Weight 58.9 kg Intake: Oral 600 / 600 Other: Date of Last Bowel Movement 03/12/18 03/13/18 # Bowel Movements 5 4 <Benito Samaniego - 03/14/18 10:24> Narrative: GENERAL: Elderly AA female lying flat in bed in [facility]. SKIN: Warm and dry. No rashes. HEAD: Normocephalic. Atraumatic. EYES: EOMI. No scleral icterus. No injection or drainage. NECK: Supple, trachea midline. No JVD or lymphadenopathy. CARDIOVASCULAR: Regular rate and rhythm without murmurs, gallops, or rubs. Left foot PT and DP pulses 2+. RESPIRATORY: Breath sounds equal bilaterally. No accessory muscle use. GASTROINTESTINAL: Abdomen soft, non-tender throughout, nondistended, +BS. No guarding or rebound tenderness. MUSCULOSKELETAL: No cyanosis, or edema. Right BKA. 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 PLAN: 1. Acute on chronic blood loss anemia -Patient transfused 2u PRBCs on 03/13; hold 2 units -Repeat H/H 8.6/25.6, Hgb noted tp slowly downtrend, will continue to monitor and transfuse with additional units as needed -TSH wnl -EGD/colonoscopy today with GI -Epogen with dialysis per nephrology -Starting venofer for iron deficiency 2. GI Bleed -GI consulted--appreciate recs -Plan as above 3. ESRD on HD -Dr Greene has been consulted--appreciate recs -To continue dialysis MWF -Will continue to monitor fluid intake and electrolytes -High protein diet 4. Hypothyroidism -Continue pt home dose levothyroxine 88 mcg PO daily 5. HTN -Continue to monitor VS -Continue home coreg 6. Depression -Continue home dose Mirtazapine 30 mg PO qhs 7. DM -Accu-checks -Patient per review of outpatient records takes Lantus 10 units hs -BSBG this AM of 80, start D5-NS at 25 cc/hr as she is NPO, diabetic diet after GI studies today 8. Insomnia -Restoril 15 mg qhs 9. FEN/GI/PPx Fluids: per PO Electrolytes: continue to monitor Nutrition: renal diabetic diet after EGD/colonoscopy GI: Protonix 40 mg IV q12h DVT ppx: contraindicated (3) HTN (hypertension) Code(s): I10 - Essential (primary) hypertension Status: Acute (4) Hypothyroid Code(s): E03.9 - Hypothyroidism, unspecified Status: Acute (5) Depression Code(s): F32.9 - Major depressive disorder, single episode, unspecified Status : Acute <Benito Samaniego - 03/14/18 11:59> - Attending Attestation See the residents documentation for details. I saw and evaluated the patient regarding the santo portions of this evaluation and agree with the residents findings and plans as written. Parts of this note were created using [employer] voice recognition software program. While efforts were made to correct any mistakes made by this software, some mistakes, errors, and omissions may remain in the final note that were not caught when the note was originally created. Plan of care was discussed and agreed upon with the patient as specifically documented in the above note. An opportunity to ask questions with explanation was provided. Patient voiced understanding on all information reviewed and discussed. <Harrison Espinosa - 03/14/18 14:18>
--- NOTE | 2018-03-14 11:56 | GIPROC ---
[facility] [address] [facility]. [facility], [address] EGD PROCEDURE REPORT EXAM DATE: 03/14/2018 PATIENT NAME: Anel Bolivar MR #: [id number] BIRTHDATE: 1945 ATTENDING: Cyrus Ochoa MD ORDER #: [id number] DIRECTOR WORKERS COMPENSATION: Rajan Aguilera Powell, Bianca, and Cassy Victoria STATUS: inpatient INDICATIONS: The patient is a 73 yr old female here for an EGD due to iron deficiency anemia PROCEDURE PERFORMED: EGD w/ biopsy MEDICATIONS: None and Per Anesthesia. TOPICAL ANESTHETIC: CONSENT: The patient understands the risks and benefits of the procedure and understands that these risks include, but are not limited to: sedation, allergic reaction, infection, perforation and/or bleeding. Alternative means of evaluation and treatment include, among others: physical exam, x-rays, and/or surgical intervention. The patient elects to proceed with this endoscopic procedure. medical equipment was checked for proper function. Hand hygiene and appropriate measures for infection prevention was taken. After the risks, benefits and alternatives of the procedure were thoroughly explained, Informed consent was verified, confirmed and timeout was successfully executed by the treatment team. The patient was anesthetized with topical anesthesia and the EC-3490Li (Pedi C) endoscope was introduced through the mouth and advanced to the second portion of the duodenum. Retroflexed views revealed a hiatal hernia The gastroscope was then slowly withdrawn and removed. ESOPHAGUS: The mucosa of the esophagus appeared normal. STOMACH: There was mild gastritis in the gastric antrum. A biopsy was performed using cold forceps. Sample sent for histology. DUODENUM: The duodenal mucosa appeared normal in the bulb and second portion of the duodenum. ADVERSE EVENTS: There were no complications. IMPRESSIONS: 1. The esophagus appeared normal 2. There was mild gastritis in the gastric antrum; biopsy was performed 3. Normal duodenal mucosa in the bulb and second portion of the duodenum 4. Retroflexed views revealed a hiatal hernia RECOMMENDATIONS: 1. Await biopsy results. Biopsy results will not be ready for 7-10 days. If you don't hear from us in two weeks, call our office for biopsy results. 2. Anti-reflux regimen 3. Continue PPI PATIENT CONDITION: stable DISPOSITION: Inpatient REPEAT EXAM: Return 3 years EGD pending biopsy results Cyrus Ochoa MD eSigned: Cyrus Ochoa MD 03/14/2018 11:56 AM cc: PATIENT NAME: Anel Bolivar MR#: [id number]
--- NOTE | 2018-03-14 12:11 | GIPROC ---
[facility] [address] [facility]. [facility], [address] COLONOSCOPY PROCEDURE REPORT EXAM DATE: 03/14/2018 PATIENT NAME: Anel Bolivar MR #: [id number] BIRTHDATE: 1945 ENDOSCOPIST: Cyrus Ochoa MD ORDER #: [id number] SUPERVISOR WHIPPED TOPPING: Rajan Aguilera Powell, Bianca, and Cassy Victoria STATUS: inpatient INDICATIONS: The patient is a 73 yr old female here for a colonoscopy due to iron deficiency anemia and hematochezia PROCEDURE PERFORMED: Colonoscopy, diagnostic MEDICATIONS: None and Per Anesthesia. PREP QUALITY: The [place] Bowel Prep Score was Right colon 3, Mid colon 3, and Left colon 2. Total = 8. PREP TYPE:Magnesium Citrate PREP TYPE:Type: ESTIMATED BLOOD LOSS: None CONSENT: The patient understands the risks and benefits of the procedure and understands that these risks include, but are not limited to: sedation, allergic reaction, infection, perforation and/or bleeding. Alternative means of evaluation and treatment include, among others: physical exam, x-rays, and/or surgical intervention. The patient elects to proceed with this endoscopic procedure. medical equipment was checked for proper function. Hand hygiene and appropriate measures for infection prevention was taken. After the risks, benefits and alternatives of the procedure were thoroughly explained, Informed consent was verified, confirmed and timeout was successfully executed by the treatment team. A digital exam revealed external hemorrhoids The Pentax EC-3490Li endoscope was introduced through the anus and advanced to the terminal ileum which was intubated for a short distance. The instrument was then slowly withdrawn as the colon was fully examined. COLON FINDINGS: Anastomosis left colon. Blood /blood clots left colon around the anastomosis. Retroflexed views revealed internal hemorrhoids and Retroflexed views revealed medium internal hemorrhoids The scope was then completely withdrawn from the patient and the procedure terminated. PROCEDURE WITHDRAWAL TIME:6minutes ADVERSE EVENTS: There were no complications. IMPRESSIONS: 1. Anastomosis left colon. Blood /blood clots left colon around the anastomosis 2. Retroflexed views revealed internal hemorrhoids 3. Retroflexed views revealed medium internal hemorrhoids 4. Revealed external hemorrhoids RECOMMENDATIONS: 1. Continue surveillance 2. Yearly hemoccult 3. Monitor for bleeding. If further bleeding check bleeding scan RECALL: Return 1 year Colonoscopy Cyrus Ochoa MD eSigned: Cyrus Ochoa MD 03/14/2018 12:11 PM cc: PATIENT NAME: Anel Bolivar MR#: [id number]
[2018-03-14] MEDS: Insulin NovoLOG Aspart Correctional Sugar Inj SQ SCH ×3 (13:25→21:21)
[2018-03-14] MEDS ORDERED: Lidocaine PF 1% Inj 5 ML Syringe INFILTRATN ONE (20:40)
[2018-03-14] MEDS: Mirtazapine 15 MG Tablet PO SCH (21:15)
[2018-03-14] MEDS: Acetaminophen 325 MG Tablet PO PRN (21:18)
[2018-03-15] MEDS: Pantoprazole Inj 40 MG Vial IV.PUSH SCH (04:09)
[2018-03-15] MEDS: Levothyroxine 88 MCG Tablet PO SCH (05:45)
[2018-03-15 07:16] LABS: Baso # (Auto) 0.1 th/mm3 (0.0-0.2); Baso % (Auto) 0.8 % (0.0-2.0); Eos # (Auto) 0.8 th/mm3 (0.0-0.4); Eos % (Auto) 10.5 % (0.0-4.0); Hematocrit 25.5 % (35.0-46.0); Hemoglobin 8.1 gm/dL (11.6-15.3); Lymph # (Auto) 1.7 th/mm3 (1.0-4.8); Mean Corpuscular HGB Conc 31.9 % (32.0-36.0); Mean Corpuscular Hemoglobin 26.3 pg (27.0-34.0); Mean Corpuscular Volume 82.6 fL (80.0-100.0); Mean Platelet Volume 8.6 fL (7.0-11.0); Mono # (Auto) 0.9 th/mm3 (0.0-0.9); Mono % (Auto) 11.1 % (0.0-8.0); Neut # (Auto) 4.3 th/mm3 (1.8-7.7); Neut % (Auto) 55.6 % (16.0-70.0); Platelet Count 330 th/mm3 (150-450); Red Blood Count 3.09 mil/mm3 (4.00-5.30); Red Cell Distribution Width 19.8 % (11.6-17.2); White Blood Count 7.7 th/mm3 (4.0-11.0)
--- NOTE | 2018-03-15 07:27 | P.PNFP ---
Subjective Interval history: No acute events overnight. Afebrile, vital signs stable. Patient denies any further rectal or GI bleeding. Per RN, patient had a small amount of bright red blood noted with a BM last night. Patient specifically denies fevers, CP, dyspnea, abdominal or pelvic pain. Tolerating liquid diet for breakfast this morning. Her only complaint is of wanting to advance her diet. She otherwise denies complaints. <Benito Samaniego - 03/15/18 09:45> Results - Labs Result diagrams: 03/15/18 05:49 03/15/18 05:49 <Harrison Espinosa - 03/17/18 13:34> Abnormal lab results 03/14/18 03/14/18 03/14/18 Range/Units 09:32 09:32 09:32 RBC 3.10 L (4.00-5.30) mil/mm3 Hgb 8.1 L (11.6-15.3) gm/dL Hct 25.7 L (35.0-46.0) % MCH 26.2 L (27.0-34.0) pg MCHC 31.6 L (32.0-36.0) % RDW 19.7 H (11.6-17.2) % [place] % (Auto) 9.0 H (0.0-8.0) % Eos % (Auto) 7.6 H (0.0-4.0) % Eos # (Auto) 0.6 H (0.0-0.4) th/mm3 PT 11.8 H (9.8-11.6) sec BUN 39 H (7-18) mg/dL Creatinine 7.22 H (0.50-1.00) mg/dL Estimated GFR 7 L (>89) mL/min POC Glucose (68-110) mg/dl Alkaline Phosphatase 134 H (45-117) U/L Albumin 2.3 L (3.4-5.0) g/dL 03/14/18 03/14/18 03/14/18 Range/Units 12:37 17:37 21:15 RBC (4.00-5.30) mil/mm3 Hgb (11.6-15.3) gm/dL Hct (35.0-46.0) % MCH (27.0-34.0) pg MCHC (32.0-36.0) % RDW (11.6-17.2) % [place] % (Auto) (0.0-8.0) % Eos % (Auto) (0.0-4.0) % Eos # (Auto) (0.0-0.4) th/mm3 PT (9.8-11.6) sec BUN (7-18) mg/dL Creatinine (0.50-1.00) mg/dL Estimated GFR (>89) mL/min POC Glucose 116 H 235 H 139 H (68-110) mg/dl Alkaline Phosphatase (45-117) U/L Albumin (3.4-5.0) g/dL 03/15/18 Range/Units 05:49 RBC 3.09 L (4.00-5.30) mil/mm3 Hgb 8.1 L (11.6-15.3) gm/dL Hct 25.5 L (35.0-46.0) % MCH 26.3 L (27.0-34.0) pg MCHC 31.9 L (32.0-36.0) % RDW 19.8 H (11.6-17.2) % [place] % (Auto) 11.1 H (0.0-8.0) % Eos % (Auto) 10.5 H (0.0-4.0) % Eos # (Auto) 0.8 H (0.0-0.4) th/mm3 PT (9.8-11.6) sec BUN (7-18) mg/dL Creatinine (0.50-1.00) mg/dL Estimated GFR (>89) mL/min POC Glucose (68-110) mg/dl Alkaline Phosphatase (45-117) U/L Albumin (3.4-5.0) g/dL Short CBC 03/14/18 03/15/18 Range/Units 09:32 05:49 WBC 8.5 7.7 (4.0-11.0) th/mm3 Hgb 8.1 L 8.1 L (11.6-15.3) gm/dL Hct 25.7 L 25.5 L (35.0-46.0) % Plt Count 379 330 (150-450) th/mm3 BMP 03/14/18 09:32 Sodium 141 Potassium 4.4 Chloride 106 Carbon Dioxide 23.3 BUN 39 H Creatinine 7.22 H Calcium 8.6 Liver Function 03/14/18 Range/Units 09:32 Total Bilirubin 0.3 (0.2-1.0) mg/dL AST 26 (15-37) U/L ALT 16 (10-53) U/L Alkaline Phosphatase 134 H (45-117) U/L Albumin 2.3 L (3.4-5.0) g/dL <Adrianreemajean carlosBenito - 03/15/18 07:27> Physical Exam Vital signs: Vital Signs 03/14/18 08:00 03/14/18 09:00 03/14/18 12:16 Temperature 98.4 F 98.0 F Pulse Rate 61 71 65 Respiratory Rate 16 16 Blood Pressure 166/70 H 143/65 H Pulse Oximetry 93 L 94 L 03/14/18 16:00 03/14/18 20:00 03/14/18 21:48 Temperature 97.4 F L 98.5 F Pulse Rate 71 74 Respiratory Rate 16 18 18 Blood Pressure 144/77 H 104/69 Pulse Oximetry 96 93 L 03/14/18 22:46 03/14/18 23:55 03/14/18 23:56 Temperature Pulse Rate 79 73 Respiratory Rate 18 Blood Pressure Pulse Oximetry 03/15/18 00:00 03/15/18 04:00 03/15/18 04:49 Temperature 98.1 F 98.1 F Pulse Rate 70 65 Respiratory Rate 18 18 18 Blood Pressure 137/60 142/66 H Pulse Oximetry 94 L 93 L Intake & Output 03/14/18 03/15/18 03/15/18 18:59 06:59 18:59 Output Total 3000 / 3000 Balance -3000 / -3000 Weight 58.9 kg Output: Hemodialysis Amount 3000 / 3000 Other: Date of Last Bowel Movement 03/14/18 03/14/18 # Bowel Movements 3 1 <AdrianBenito ruiz - 03/15/18 07:27> Narrative: GENERAL: Elderly AA female sitting on side of bed eating breakfast SKIN: Warm and dry. No rashes. HEAD: Normocephalic. Atraumatic. EYES: EOMI. No scleral icterus. No injection or drainage. NECK: Supple, trachea midline. No JVD or lymphadenopathy. CARDIOVASCULAR: Regular rate and rhythm without murmurs, gallops, or rubs. Left foot PT and DP pulses 2+. RESPIRATORY: Breath sounds equal and clear bilaterally. No accessory muscle use. GASTROINTESTINAL: Abdomen soft, non-tender throughout, nondistended, +BS. No guarding or rebound tenderness. MUSCULOSKELETAL: No cyanosis, or edema. Right BKA. 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 PLAN: 1. Acute on chronic blood loss anemia -Patient transfused 2u PRBCs on 03/13; hold 2 units -Repeat H/H 8.6/25.6, remains stable at 8.1 -TSH wnl -EGD showing normal esophagus, mild gastritis in the gastric antrum of which biopsy was performed, normal duodenal mucosa in the bulb and second portion of the duodenum, retroflexed views showing a hiatal hernia -Colonoscopy findings of anastomosis of left colon, blood and blood clots of left colon around the anastomosis, internal and external hemorrhoids -GI recommending yearly hemoccult, if further bleeding check bleeding scan -Epogen with dialysis per nephrology, starting venofer for iron deficiency 2. GI Bleed -GI consulted -Plan as above 3. ESRD on HD -Dr Greene has been consulted--appreciate recs -To continue dialysis MWF -Will continue to monitor fluid intake and electrolytes -High protein diet 4. Hypothyroidism -Continue pt home dose levothyroxine 88 mcg PO daily 5. HTN -Continue to monitor VS -Continue home coreg 6. Depression -Continue home dose Mirtazapine 30 mg PO qhs 7. DM -Accu-checks -Patient per review of outpatient records takes Lantus 10 units hs -Low-dose ISS 8. Insomnia -Restoril 15 mg qhs 9. FEN/GI/PPx Fluids: per PO Electrolytes: continue to monitor Nutrition: renal diabetic diet GI: Protonix 40 mg IV q12h, transition to PO DVT ppx: contraindicated (3) HTN (hypertension) Code(s): I10 - Essential (primary) hypertension Status: Chronic (4) Hypothyroid Code(s): E03.9 - Hypothyroidism, unspecified Status: Chronic (5) Depression Code(s): F32.9 - Major depressive disorder, single episode, unspecified Status : Chronic <Benito Samaniego - 03/15/18 09:35> - Attending Attestation See the residents documentation for details. I saw and evaluated the patient regarding the santo portions of this evaluation and agree with the residents findings and plans as written. Parts of this note were created using [employer] voice recognition software program. While efforts were made to correct any mistakes made by this software, some mistakes, errors, and omissions may remain in the final note that were not caught when the note was originally created. Plan of care was discussed and agreed upon with the patient as specifically documented in the above note. An opportunity to ask questions with explanation was provided. Patient voiced understanding on all information reviewed and discussed. <Harrison Espinosa - 03/17/18 13:34>
[2018-03-15 07:52] LABS: Albumin 2.2 g/dL (3.4-5.0); Calcium 8.3 mg/dL (8.5-10.1); Carbon Dioxide 26.9 meq/L (21.0-32.0); Phosphorus 4.3 mg/dL (2.5-4.9); Potassium 3.7 meq/L (3.5-5.1)
[2018-03-15] MEDS: Carvedilol 12.5 MG Tablet PO SCH (08:43)
[2018-03-15] MEDS: Insulin NovoLOG Aspart Correctional Sugar Inj SQ SCH ×3 (08:43→17:23)
[2018-03-15] MEDS ORDERED: Acetaminophen 325 MG Tablet PO PRN (09:34)
--- NOTE | 2018-03-15 15:50 | P.PNGI ---
Physical Exam Vital signs: Vital Signs 03/14/18 16:00 03/14/18 20:00 03/14/18 21:48 Temperature 97.4 F L 98.5 F Pulse Rate 71 74 Respiratory Rate 16 18 18 Blood Pressure 144/77 H 104/69 Pulse Oximetry 96 93 L 03/14/18 22:46 03/14/18 23:55 03/14/18 23:56 Temperature Pulse Rate 79 73 Respiratory Rate 18 Blood Pressure Pulse Oximetry 03/15/18 00:00 03/15/18 04:00 03/15/18 04:49 Temperature 98.1 F 98.1 F Pulse Rate 70 65 Respiratory Rate 18 18 18 Blood Pressure 137/60 142/66 H Pulse Oximetry 94 L 93 L 03/15/18 08:00 03/15/18 09:00 03/15/18 12:00 Temperature 98.4 F 98.6 F Pulse Rate 71 65 71 Respiratory Rate 24 20 Blood Pressure 147/70 H 134/74 Pulse Oximetry 93 L 98 03/15/18 12:02 Temperature Pulse Rate Respiratory Rate Blood Pressure Pulse Oximetry 92 L Intake & Output 03/14/18 03/15/18 03/15/18 18:59 06:59 18:59 Output Total 3000 / 3000 Balance -3000 / -3000 Weight 58.9 kg Output: Hemodialysis Amount 3000 / 3000 Other: Date of Last Bowel Movement 03/14/18 03/14/18 # Bowel Movements 3 1 3 Results - Labs CBC & Chem 7: 03/15/18 05:49 03/15/18 05:49 Laboratory Results - last 24 hr 03/12/18 03/14/18 03/14/18 23:35 17:37 21:15 WBC RBC Hgb Hct MCV MCH MCHC RDW Plt Count MPV Neut % (Auto) Lymph % (Auto) [place] % (Auto) Eos % (Auto) Baso % (Auto) Neut # (Auto) Lymph # (Auto) [place] # (Auto) Eos # (Auto) Baso # (Auto) WBC Differential Differential Comment Sodium Potassium Chloride Carbon Dioxide Anion Gap BUN Creatinine Estimated GFR POC Glucose 235 H 139 H Random Glucose Calcium Phosphorus Albumin MTS Gel Crossmatch See Detail 03/15/18 03/15/18 03/15/18 05:49 05:49 08:42 WBC 7.7 RBC 3.09 L Hgb 8.1 L Hct 25.5 L MCV 82.6 MCH 26.3 L MCHC 31.9 L RDW 19.8 H Plt Count 330 MPV 8.6 Neut % (Auto) 55.6 Lymph % (Auto) 22.0 [place] % (Auto) 11.1 H Eos % (Auto) 10.5 H Baso % (Auto) 0.8 Neut # (Auto) 4.3 Lymph # (Auto) 1.7 [place] # (Auto) 0.9 Eos # (Auto) 0.8 H Baso # (Auto) 0.1 WBC Differential . Differential Comment Auto diff final Sodium 142 Potassium 3.7 Chloride 103 Carbon Dioxide 26.9 Anion Gap 12 BUN 27 H Creatinine 6.06 H Estimated GFR 8 L POC Glucose 111 H Random Glucose 67 L Calcium 8.3 L Phosphorus 4.3 Albumin 2.2 L MTS Gel Crossmatch Assessment and Plan - Plan Anemia with reports of BRB in stool on Saturday and black, tarry stools with history of complicated GIB requiring left colectomy. States one episodes of BRB in her stool on Saturday, has not noticed any since. Also complaining of black, tarry stools states this has been going on for a long time. Of note, on iron supplements. Also reports daily diarrhea with incontinence, 2-3 episodes a day. Also had some nausea on Saturday after dialysis and again on Saturday with emesis, denies hematemesis and coffee ground emesis September when she had persistent bleeding S/P colonoscopy which revealed blood throughout the colon, positive bleeding scan indicating active hemorrhage in the transverse colon, S/P repeat colonoscopy with old blood but no site of active bleeding. Pt then underwent angiogram which found no source of hemorrhage and pt ended up undergoing left colectomy and low anterior anastomosis by Dr. De La Cruz. Evaluated by our service in January: EGD but refused colonoscopy at that time. EGD revealed gastritis, 100 cc of bile that was suctioned, and hiatal hernia. - ESRD on HD M, W,F Pt refusing colonoscopy unless she gets to eat breakfast, also states she will not drink Golytely EGD colonoscopy Plan: EGD and colonoscopy tomorrow Obtain consent Can eat breakfast Than start clear liquids Dulcolax prep NPO after MN SSE x 2 in AM Monitor H/H Further recommendations to follow Pt has been seen and examined by myself and Dr. Ochoa and this note is written on his behalf
--- NOTE | 2018-03-15 16:06 | P.PNGI ---
Subjective Interval history: Patient is resting in the bed hoping to go home today Denies any nausea vomiting rectal bleeding or abdominal pain Hungry asking for more food Current hemoglobin 8.1 <Marybel Mariano - Last Filed: 03/15/18 16:06> Physical Exam Vital signs: Vital Signs 03/14/18 20:00 03/14/18 21:48 03/14/18 22:46 Temperature 98.5 F Pulse Rate 74 79 Respiratory Rate 18 18 Blood Pressure 104/69 Pulse Oximetry 93 L 03/14/18 23:55 03/14/18 23:56 03/15/18 00:00 Temperature 98.1 F Pulse Rate 73 70 Respiratory Rate 18 18 Blood Pressure 137/60 Pulse Oximetry 94 L 03/15/18 04:00 03/15/18 04:49 03/15/18 08:00 Temperature 98.1 F 98.4 F Pulse Rate 65 71 Respiratory Rate 18 18 24 Blood Pressure 142/66 H 147/70 H Pulse Oximetry 93 L 93 L 03/15/18 09:00 03/15/18 12:00 03/15/18 12:02 Temperature 98.6 F Pulse Rate 65 71 Respiratory Rate 20 Blood Pressure 134/74 Pulse Oximetry 98 92 L Intake & Output 03/14/18 03/15/18 03/15/18 18:59 06:59 18:59 Output Total 3000 / 3000 Balance -3000 / -3000 Weight 58.9 kg Output: Hemodialysis Amount 3000 / 3000 Other: Date of Last Bowel Movement 03/14/18 03/14/18 # Bowel Movements 3 1 3 - Constitutional no acute distress - Routine HEENT Exam Head: Present: normocephalic ENT: Present: mucous membranes moist - Routine Neck Exam Present: supple - Routine Respiratory Exam Present: accessory muscle use (Even, unlabored) - Routine Abdominal Exam Present: soft (Active bowel sounds no tenderness or abdominal pain) - Routine Skin Exam Present: intact - Routine Neurological Exam Present: alert (Answers questions appropriately noted dialysis patient) <Marybel Mariano - Last Filed: 03/15/18 16:06> Vital signs: Vital Signs 03/14/18 20:00 03/14/18 21:48 03/14/18 22:46 Temperature 98.5 F Pulse Rate 74 79 Respiratory Rate 18 18 Blood Pressure 104/69 Pulse Oximetry 93 L 03/14/18 23:55 08/03/18 23:56 03/15/18 00:00 Temperature 98.1 F Pulse Rate 73 70 Respiratory Rate 18 18 Blood Pressure 137/60 Pulse Oximetry 94 L 03/15/18 04:00 03/15/18 04:49 03/15/18 08:00 Temperature 98.1 F 98.4 F Pulse Rate 65 71 Respiratory Rate 18 18 24 Blood Pressure 142/66 H 147/70 H Pulse Oximetry 93 L 93 L 03/15/18 09:00 03/15/18 12:00 03/15/18 12:02 Temperature 98.6 F Pulse Rate 65 71 Respiratory Rate 20 Blood Pressure 134/74 Pulse Oximetry 98 92 L Intake & Output 03/14/18 03/15/18 03/15/18 18:59 06:59 18:59 Output Total 3000 / 3000 Balance -3000 / -3000 Weight 58.9 kg Output: Hemodialysis Amount 3000 / 3000 Other: Date of Last Bowel Movement 03/14/18 03/14/18 # Bowel Movements 3 1 3 <Cyrus Ochoa - Last Filed: 03/15/18 16:29> Results - Labs CBC & Chem 7: 03/15/18 05:49 03/15/18 05:49 Laboratory Results - last 24 hr 03/12/18 03/14/18 03/14/18 23:35 17:37 21:15 WBC RBC Hgb Hct MCV MCH MCHC RDW Plt Count MPV Neut % (Auto) Lymph % (Auto) [place] % (Auto) Eos % (Auto) Baso % (Auto) Neut # (Auto) Lymph # (Auto) [place] # (Auto) Eos # (Auto) Baso # (Auto) WBC Differential Differential Comment Sodium Potassium Chloride Carbon Dioxide Anion Gap BUN Creatinine Estimated GFR POC Glucose 235 H 139 H Random Glucose Calcium Phosphorus Albumin MTS Gel Crossmatch See Detail 03/15/18 03/15/18 03/15/18 05:49 05:49 08:42 WBC 7.7 RBC 3.09 L Hgb 8.1 L Hct 25.5 L MCV 82.6 MCH 26.3 L MCHC 31.9 L RDW 19.8 H Plt Count 330 MPV 8.6 Neut % (Auto) 55.6 Lymph % (Auto) 22.0 [place] % (Auto) 11.1 H Eos % (Auto) 10.5 H Baso % (Auto) 0.8 Neut # (Auto) 4.3 Lymph # (Auto) 1.7 [place] # (Auto) 0.9 Eos # (Auto) 0.8 H Baso # (Auto) 0.1 WBC Differential . Differential Comment Auto diff final Sodium 142 Potassium 3.7 Chloride 103 Carbon Dioxide 26.9 Anion Gap 12 BUN 27 H Creatinine 6.06 H Estimated GFR 8 L POC Glucose 111 H Random Glucose 67 L Calcium 8.3 L Phosphorus 4.3 Albumin 2.2 L MTS Gel Crossmatch <Marybel Mariano - Last Filed: 03/15/18 16:06> - Labs CBC & Chem 7: 03/15/18 05:49 03/15/18 05:49 Laboratory Results - last 24 hr 03/12/18 03/14/18 03/14/18 23:35 17:37 21:15 WBC RBC Hgb Hct MCV MCH MCHC RDW Plt Count MPV Neut % (Auto) Lymph % (Auto) [place] % (Auto) Eos % (Auto) Baso % (Auto) Neut # (Auto) Lymph # (Auto) [place] # (Auto) Eos # (Auto) Baso # (Auto) WBC Differential Differential Comment Sodium Potassium Chloride Carbon Dioxide Anion Gap BUN Creatinine Estimated GFR POC Glucose 235 H 139 H Random Glucose Calcium Phosphorus Albumin MTS Gel Crossmatch See Detail 03/15/18 03/15/18 03/15/18 05:49 05:49 08:42 WBC 7.7 RBC 3.09 L Hgb 8.1 L Hct 25.5 L MCV 82.6 MCH 26.3 L MCHC 31.9 L RDW 19.8 H Plt Count 330 MPV 8.6 Neut % (Auto) 55.6 Lymph % (Auto) 22.0 [place] % (Auto) 11.1 H Eos % (Auto) 10.5 H Baso % (Auto) 0.8 Neut # (Auto) 4.3 Lymph # (Auto) 1.7 [place] # (Auto) 0.9 Eos # (Auto) 0.8 H Baso # (Auto) 0.1 WBC Differential . Differential Comment Auto diff final Sodium 142 Potassium 3.7 Chloride 103 Carbon Dioxide 26.9 Anion Gap 12 BUN 27 H Creatinine 6.06 H Estimated GFR 8 L POC Glucose 111 H Random Glucose 67 L Calcium 8.3 L Phosphorus 4.3 Albumin 2.2 L MTS Gel Crossmatch <Cyrus Ochoa - Last Filed: 03/15/18 16:29> Assessment and Plan - Plan Anemia with reports of BRB in stool on Saturday and black, tarry stools with history of complicated GIB requiring left colectomy. States one episodes of BRB in her stool on Saturday, has not noticed any since. Also complaining of black, tarry stools states this has been going on for a long time. Of note, on iron supplements. Also reports daily diarrhea with incontinence, 2-3 episodes a day. Also had some nausea on Saturday after dialysis and again on Saturday with emesis, denies hematemesis and coffee ground emesis September when she had persistent bleeding S/P colonoscopy which revealed blood throughout the colon, positive bleeding scan indicating active hemorrhage in the transverse colon, S/P repeat colonoscopy with old blood but no site of active bleeding. Pt then underwent angiogram which found no source of hemorrhage and pt ended up undergoing left colectomy and low anterior anastomosis by Dr. De La Cruz. Evaluated by our service in January: EGD but refused colonoscopy at that time. EGD revealed gastritis, 100 cc of bile that was suctioned, and hiatal hernia. - ESRD on HD M, W,F Pt refusing colonoscopy unless she gets to eat breakfast, also states she will not drink Golytely 03/15/2018 patient is status post EGD and colonoscopy on 03/14/2018. Current hemoglobin stabilized for the past 24 hours. Patient currently denies any symptoms of nausea vomiting hematemesis or active rectal bleeding. Patient states she was told after her test there was no obvious source of bleeding. Patient states she is hungry with good appetite and plans to go to [facility]. Encourage patient to follow-up with advanced [facility] after her discharge for pending biopsies and report. Okay from a GI perspective to sign off Plan: Diet renal, as tolerated Monitor labs with special attention to any bleeding PPI Reflux precautions Bowel regimen as needed no straining Avoid NSAIDs Pt was seen by myself Dr. Ochoa and this note is written on his behalf <Marybel Mariano - Last Filed: 03/15/18 16:06> - Plan Seen and examined, no bleeding. s/p egd/colonoscopy with blood around anastomosis site but no active bleeding. Monitor labs. Diet as tolerated. - Attending Attestation The exam, history, and the medical decision-making described in the above note were completed with the assistance of the mid-level provider. I reviewed and agree with the findings presented. I attest that I had a [id number] encounter with the patient on the same day, and personally performed and documented my assessment and findings in the medical record. <Cyrus Ochoa - Last Filed: 03/15/18 16:29>
--- NOTE | 2018-03-15 23:46 | P.PNNP ---
Subjective Interval history: Patient seen in AM, no SOB, feeling better. Physical Exam Vital signs: Vital Signs 03/14/18 23:55 03/14/18 23:56 03/15/18 00:00 Temperature 98.1 F Pulse Rate 73 70 Respiratory Rate 18 18 Blood Pressure 137/60 Pulse Oximetry 94 L 03/15/18 04:00 03/15/18 04:49 03/15/18 08:00 Temperature 98.1 F 98.4 F Pulse Rate 65 71 Respiratory Rate 18 18 24 Blood Pressure 142/66 H 147/70 H Pulse Oximetry 93 L 93 L 03/15/18 09:00 03/15/18 12:00 03/15/18 12:02 Temperature 98.6 F Pulse Rate 65 71 Respiratory Rate 20 Blood Pressure 134/74 Pulse Oximetry 98 92 L 03/15/18 16:00 03/15/18 18:01 Temperature 98.6 F Pulse Rate 78 Respiratory Rate 22 Blood Pressure 169/86 H Pulse Oximetry 95 93 L Intake & Output 03/15/18 03/15/18 03/16/18 06:59 18:59 06:59 Weight 58.9 kg Other: Date of Last Bowel Movement 03/14/18 # Bowel Movements 1 3 Narrative: GENERAL: Elderly AA female sitting on side of bed eating breakfast SKIN: Warm and dry. No rashes. HEAD: Normocephalic. Atraumatic. EYES: EOMI. No scleral icterus. No injection or drainage. NECK: Supple, trachea midline. No JVD or lymphadenopathy. CARDIOVASCULAR: Regular rate and rhythm without murmurs, gallops, or rubs. Left foot PT and DP pulses 2+. RESPIRATORY: Breath sounds equal and clear bilaterally. No accessory muscle use. GASTROINTESTINAL: Abdomen soft, non-tender throughout, nondistended, +BS. No guarding or rebound tenderness. MUSCULOSKELETAL: No cyanosis, or edema. Right BKA. Assessment and Plan - Assessment (1) ESRD (end stage renal disease) on dialysis Code(s): N18.6 - End stage renal disease; Z99.2 - Dependence on renal dialysis Status: Chronic Plan: Dialysis will be continued MWF. Monitor fluid and electrolytes. Protect access arm from IV and BP measurements. High protein diet should be ordered with supplements. HD done yesterday. 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 GI has evaluated Blood transfusion given 8/, 2 units. Hb low but better. Epogen (high dose) ordered with dialysis. Start Venofer for iron deficiency. (3) HTN (hypertension) Code(s): I10 - Essential (primary) hypertension Status: Chronic Plan: Monitor BP. On Carvedilol (4) Protein-calorie malnutrition, severe Code(s): E43 - Unspecified severe protein-calorie malnutrition Status: Acute Plan: Needs protein supplements and high protein diet. She was receiving parenteral nutrition with dialysis at [facility]. - Plan Patient for discharge, to follow with Dr. Greene and continue HD, MWF.
--- NOTE | 2018-03-18 08:29 | P.DS ---
Date of admission: 03/13/18 01:29 Primary care physician: Charu Akbar MD, R3 Anticipated date of discharge: 03/15/18 Brief History from admission: HPI from initial H&P note by Dr. Ritter on 03/13: Ms Bolivar is a 73 YO female pt seen by Dr Gabino Akbar with PMHx ESRD on HD MWF followed by Dr Greene, GERD, HTN, Hx colectomy, DM, hypothyroid, GI bleeds and COPD who presents to the ED after Dr Ritter was called by [facility] with abnormal lab reading of Hgb 5.3 [address] an outpt lab. Dr Ritter spoke with pt's daughter to relay the news and stressed the importance of getting her mother to the ED for evaluation. Pt was not happy being brought to the ED; however, she understands she needs to get blood transfusion. She has no complaints during the interview but wants to sleep and feels tired. She admits to seeing blood in her stool over the past few days which has been a chronic problem. She states she went to HD today as scheduled. There are no other complaints at this time. Denies CP, SOB, N/V/D and DVT pain. DS: Diagnosis - Discharge Diagnosis (1) Chronic blood loss anemia Status: Chronic Diagnosis: Principal (2) ESRD (end stage renal disease) on dialysis Status: Chronic Diagnosis: Secondary (3) HTN (hypertension) Status: Chronic Diagnosis: Secondary (4) Hypothyroid Status: Chronic Diagnosis: Secondary (5) Depression Status: Chronic Diagnosis: Secondary DS: Medications - Discharge Medications Prescriptions: pantoprazole [Protonix] 40 mg PO DAILY #30 tab DS: Summary Hospital Course: H/H was found to be 5.8/18.5 on admission, the patient was given 2 units of pRBCs on 03/13. Gastroenterology was consulted. Patient underwent an EGD and colonoscopy on 03/14, colonoscopy showing anastomosis of the left colon with blood clots around the anastomosis, internal hemorrhoids, GI recommending continued surveillance, yearly Hemoccult and return in 1 year for repeat colonoscopy; EGD showing normal esophagus, mild gastritis in the gastric antrum where biopsy was performed, normal duodenal mucosa, hiatal hernia; recommended repeat EGD in 3 years pending biopsy results. Nephrology was consulted to continue hemodialysis while inpatient. Patient's hemoglobin remained stable following her 2 units of pRBCs, maintained above 8.0. Gastroenterology signed off. Patient was advised to follow-up closely with her PCP and gastroenterology within 1 week after hospital discharge, repeat CBC within three days, and to report if having any further rectal bleeding. - Time Spent with Patient Total time spent providing and/or coordinating discharge services: Less than 30 minutes - Quality: VTE Deep Vein Thrombosis/Pulmonary Embolism Present on Admission: No Exam Narrative: GENERAL: Elderly AA female sitting on side of bed eating breakfast SKIN: Warm and dry. No rashes. HEAD: Normocephalic. Atraumatic. EYES: EOMI. No scleral icterus. No injection or drainage. NECK: Supple, trachea midline. No JVD or lymphadenopathy. CARDIOVASCULAR: Regular rate and rhythm without murmurs, gallops, or rubs. Left foot PT and DP pulses 2+. RESPIRATORY: Breath sounds equal and clear bilaterally. No accessory muscle use. GASTROINTESTINAL: Abdomen soft, non-tender throughout, nondistended, +BS. No guarding or rebound tenderness. MUSCULOSKELETAL: No cyanosis, or edema. Right BKA. Results Procedures completed during hospitalization: EGD and colonoscopy as above Discharge Plan - Discharge Disposition Patient Disposition: 01 Discharge Home - Discharge Condition Condition: Stable - Discharge Order Discharge Orders: Discharge Order (Routine); Ordered 03/15/18 Ordered By: Benito Samaniego - Discharge Details Anticipated Discharge Date: 03/15/18 - Physicians Team Primary Care Provider: Charu Akbar Attending Provider: Harrison Espinosa Other Providers: Cyrus Ochoa MD ; Dao Greene MD
[2018-03-18 18:01] VITALS: O2SAT 93
[2018-03-18 18:02] VITALS: PULSE 78
[2018-03-18 18:03] VITALS: BP 169/86; TEMP 98.6
[2018-03-18 18:40] VITALS: RESP 22
== END 2018-03-15 20:41 | disposition home or self-care (01) ==
LOC: NEPC 22:30 → NEDA 03-13 01:07 → INTOOBSV 03-13 01:14 → N06 03-13 03:57
PROVIDERS: ADMIT Family Medicine; ATTEND Family Medicine
PROC: COLONOS (2018-03-14 11:45)

== ENCOUNTER 2018-04-29 15:07 | Inpatient (IN) ==
[2018-04-29 19:05] LABS: Baso # (Auto) 0.1 th/mm3 (0.0-0.2); Eos # (Auto) 0.4 th/mm3 (0.0-0.4); Eos % (Auto) 5.7 % (0.0-4.0); Hemoglobin 7.5 gm/dL (11.6-15.3); Lymph # (Auto) 1.4 th/mm3 (1.0-4.8); Lymph % (Auto) 21.8 % (9.0-44.0); Mean Corpuscular HGB Conc 31.1 % (32.0-36.0); Mean Corpuscular Hemoglobin 27.6 pg (27.0-34.0); Mean Corpuscular Volume 88.7 fL (80.0-100.0); Mean Platelet Volume 10.2 fL (7.0-11.0); Mono # (Auto) 0.5 th/mm3 (0.0-0.9); Mono % (Auto) 7.9 % (0.0-8.0); Neut # (Auto) 4.1 th/mm3 (1.8-7.7); Neut % (Auto) 63.6 % (16.0-70.0); Platelet Count 292 th/mm3 (150-450); Red Blood Count 2.71 mil/mm3 (4.00-5.30); Red Cell Distribution Width 19.2 % (11.6-17.2); White Blood Count 6.4 th/mm3 (4.0-11.0)
[2018-04-29 19:12] LABS: INR 1.2 Ratio; Prothrombin Time 11.8 sec (9.8-11.6)
[2018-04-29 19:23] LABS: Albumin 2.7 g/dL (3.4-5.0); Anion Gap 14 meq/L (5-15); Aspartate Aminotransferase 17 U/L (15-37); Blood Urea Nitrogen 80 mg/dL (7-18); Calcium 7.6 mg/dL (8.5-10.1); Carbon Dioxide 19.8 meq/L (21.0-32.0); Chloride 108 meq/L (98-107); Glomerular Filtration Rate 4 mL/min (>89); Glucose,Random 112 mg/dL (74-106); Potassium 5.6 meq/L (3.5-5.1); Sodium 142 meq/L (136-145)
[2018-04-29 19:24] LABS: Alanine Aminotransferase 17 U/L (10-53)
--- NOTE | 2018-04-29 19:24 | ED ---
HPI General Chief complaint: GI Bleed Stated complaint: rectal bleeding Time Seen by Provider: 04/29/18 17:28 Source: patient Mode of arrival: ambulatory History of Present Illness HPI narrative: Is a 73-year-old woman presents to the emergency department complaining of bloody diarrhea. She is a history of GI bleed. She started back in September. She actually had a colectomy for ongoing bleeding. She has had several episodes since then. She was admitted in March for GI bleed and had an endoscopy done. Symptoms started again yesterday. Multiple episodes of bloody diarrhea. She otherwise had been feeling generally well and healthy. She has has dialysis. She missed dialysis on Saturday. Mild abdominal pain. No other complaints. Related Data Home Medications Medication Instructions Recorded Confirmed B complex-vitamin C-folic acid 1 tab PO DAILY 04/22/18 04/29/18 [Nephro-Jammie] Renvela 1 tab PO TID 04/22/18 04/29/18 albuterol sulfate [Ventolin HFA] 2 puff INHALATION Q4-6H PRN 04/22/18 04/29/18 amlodipine 10 mg PO DAILY 04/22/18 04/29/18 aspirin 81 mg PO DAILY 04/22/18 04/29/18 cholecalciferol (vitamin D3) 50,000 unit PO QWEEK 04/22/18 04/29/18 ferric citrate 420 mg PO TID 04/22/18 04/29/18 insulin glargine [Lantus U-100 10 unit SUB-Q DAILY 04/22/18 04/29/18 Insulin] levothyroxine 75 mcg PO DAILY 04/22/18 04/29/18 lisinopril 20 mg PO DAILY 04/22/18 04/29/18 megestrol [Megace ES] 400 mg PO DAILY 04/22/18 04/29/18 metoclopramide HCl [Reglan] 5 mg PO BID 04/22/18 04/29/18 mirtazapine [Remeron] 15 mg PO DAILY 04/22/18 04/29/18 tramadol 100 mg PO DAILY PRN 04/22/18 04/29/18 zolpidem 1 tab PO HS 04/22/18 04/29/18 Allergies Allergy/AdvReac Type Severity Reaction Status Date / Time No Known Allergies Allergy Verified 04/29/18 19:18 Review of Systems ROS: all other systems reviewed are negative [facility] Medical History Medical History Cataracts, bilateral (Acute) Depression (Acute) Diabetes mellitus (Acute) Dialysis patient (Acute) Foot abscess (Acute) GERD (gastroesophageal reflux disease) (Acute) GI bleeding (Acute) HTN (hypertension) (Acute) Hepatitis C (Acute) Hypothyroid (Acute) Renal failure (Acute) Surgical History Surgical History Amputation of leg (Acute) History of colon resection (Acute) Social History Social History Substance History: No History of Abuse Second Hand Smoke Exposure: No Smoking Status: Current some day smoker Tobacco Type: Cigarettes How Often Do You Have a Drink Containing Alcohol: 2 to 4 times a month Recent Travel in [facility] within the Last 8 Weeks: No Recent Out of Country Travel within the Last 8 Weeks: No Immunization History Tetanus Immunization: Unsure Hx Influenza Vaccine This Season: No Exam Narrative Exam Narrative: GENERAL: 73-year-old woman, no acute distress. SKIN: Focused skin assessment warm/dry. HEAD: Atraumatic. Normocephalic. EYES: Pupils equal and round. No scleral icterus. No injection or drainage. ENT: No nasal bleeding or discharge. Mucous membranes pink and moist. NECK: Trachea midline. No JVD. CARDIOVASCULAR: Regular rate and rhythm. No murmur appreciated. RESPIRATORY: No accessory muscle use. Clear to auscultation. Breath sounds equal bilaterally. GASTROINTESTINAL: Abdomen soft, non-tender, nondistended. Hepatic and splenic margins not palpable. RECTAL: Bloody stool in the rectal vault. NEUROLOGICAL: Awake and alert. No obvious cranial nerve deficits. Motor grossly within normal limits. Normal speech. PSYCHIATRIC: Appropriate mood and affect; insight and judgment normal. Course Initial Documented Vital Signs Temperature 98.8 F 04/29/18 15:14 Pulse Rate 79 04/29/18 15:14 Respiratory Rate 17 04/29/18 15:14 Blood Pressure 196/93 H 04/29/18 15:14 Pulse Oximetry 98 04/29/18 15:14 Last Documented Vital Signs Temperature 98.8 F 09/18/18 15:14 Pulse Rate 79 04/29/18 15:40 Respiratory Rate 18 04/29/18 15:40 Blood Pressure 197/87 H 04/29/18 15:40 Pulse Oximetry 97 04/29/18 19:19 Sign Out Sign Out Data: Patient Sign Out occurred on 04/29/18 at 19:37. Patient's care was discussed, and care was transferred from Willie May MD to Fauzia Chung MD. Sign Out Comment: GI bleed, history of same, follow-up on labs, transfuse if needed, plan on admission. Last updated by Willie May MD at 04/29/18 19:29 Post-Handoff Eval: I received care of patient in checkout. At time of checkout, labs are pending with plan for likely admission. Labs reveal anemia with a hemoglobin of 7.5 for which she is going to receive 2 units of PRBCs. Labs are from also revealed her chronic kidney disease with a potassium that is slightly elevated. EKG was not suggestive of hyperkalemia. 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 Greene, who agreed to follow her on an inpatient basis. I then spoke with the family medicine residents, who agreed to her admission to Dr. Blair. Medical Decision Making MDM Narrative Medical decision making narrative: 72-year-old woman with grossly bloody stools , history of the same, will need admission for observation. Unclear what else can be done. She had a colectomy. She had a recent endoscopy. We will plan on monitoring. Will need dialysis. Medical Screen Exam Complete: Yes Emergency Medical Condition: Yes Lab Data Result diagrams: 04/29/18 18:40 04/29/18 18:40 Lab Results 04/29/18 04/29/18 04/29/18 Range/Units 18:40 18:40 18:40 WBC 6.4 (4.0-11.0) th/mm3 RBC 2.71 L (4.00-5.30) mil/mm3 Hgb 7.5 L (11.6-15.3) gm/dL Hct 24.0 L (35.0-46.0) % MCV 88.7 (80.0-100.0) fL MCH 27.6 (27.0-34.0) pg MCHC 31.1 L (32.0-36.0) % RDW 19.2 H (11.6-17.2) % Plt Count 292 (150-450) th/mm3 MPV 10.2 (7.0-11.0) fL Neut % (Auto) 63.6 (16.0-70.0) % Lymph % (Auto) 21.8 (9.0-44.0) % Fountain % (Auto) 7.9 (0.0-8.0) % Eos % (Auto) 5.7 H (0.0-4.0) % Baso % (Auto) 1.0 (0.0-2.0) % Neut # (Auto) 4.1 (1.8-7.7) th/mm3 Lymph # (Auto) 1.4 (1.0-4.8) th/mm3 Fountain # (Auto) 0.5 (0.0-0.9) th/mm3 Eos # (Auto) 0.4 (0.0-0.4) th/mm3 Baso # (Auto) 0.1 (0.0-0.2) th/mm3 WBC Differential . Differential Comment Auto diff final PT 11.8 H (9.8-11.6) sec INR 1.2 Ratio APTT 24.0 L (24.3-30.1) sec Sodium 142 (136-145) meq/L Potassium 5.6 H (3.5-5.1) meq/L Chloride 108 H (98-107) meq/L Carbon Dioxide 19.8 L (21.0-32.0) meq/L Anion Gap 14 (5-15) meq/L BUN 80 H (7-18) mg/dL Creatinine 10.47 H* (0.50-1.00) mg/dL Estimated GFR 4 L (>89) mL/min Random Glucose 112 H (74-106) mg/dL Calcium 7.6 L (8.5-10.1) mg/dL Total Bilirubin 0.3 (0.2-1.0) mg/dL AST 17 (15-37) U/L ALT 17 (10-53) U/L Alkaline Phosphatase 130 H (45-117) U/L Total Protein 6.6 (6.4-8.2) g/dL Albumin 2.7 L (3.4-5.0) g/dL Blood Type Antibody Screen MTS Gel Crossmatch 04/29/18 04/29/18 Range/Units 18:40 18:40 WBC (4.0-11.0) th/mm3 RBC (4.00-5.30) mil/mm3 Hgb (11.6-15.3) gm/dL Hct (35.0-46.0) % MCV (80.0-100.0) fL MCH (27.0-34.0) pg MCHC (32.0-36.0) % RDW (11.6-17.2) % Plt Count (150-450) th/mm3 MPV (7.0-11.0) fL Neut % (Auto) (16.0-70.0) % Lymph % (Auto) (9.0-44.0) % Fountain % (Auto) (0.0-8.0) % Eos % (Auto) (0.0-4.0) % Baso % (Auto) (0.0-2.0) % Neut # (Auto) (1.8-7.7) th/mm3 Lymph # (Auto) (1.0-4.8) th/mm3 Fountain # (Auto) (0.0-0.9) th/mm3 Eos # (Auto) (0.0-0.4) th/mm3 Baso # (Auto) (0.0-0.2) th/mm3 WBC Differential Differential Comment PT (9.8-11.6) sec INR Ratio APTT (24.3-30.1) sec Sodium (136-145) meq/L Potassium (3.5-5.1) meq/L Chloride (98-107) meq/L Carbon Dioxide (21.0-32.0) meq/L Anion Gap (5-15) meq/L BUN (7-18) mg/dL Creatinine (0.50-1.00) mg/dL Estimated GFR (>89) mL/min Random Glucose (74-106) mg/dL Calcium (8.5-10.1) mg/dL Total Bilirubin (0.2-1.0) mg/dL AST (15-37) U/L ALT (10-53) U/L Alkaline Phosphatase (45-117) U/L Total Protein (6.4-8.2) g/dL Albumin (3.4-5.0) g/dL Blood Type O Positive Antibody Screen Negative MTS Gel Crossmatch See Detail Discharge Plan Discharge Disposition Patient Disposition: 30 Still Patient Discharge Condition Condition: Stable Discharge Details Diagnosis: Acute blood loss anemia, End-stage renal disease (ESRD) Physicians Team ED Provider: Fauzia Chung Primary Care Provider: Charu Akbar Other Providers: Dao Greene Rxs /Orders / Referrals /Forms Prescriptions: No Action insulin glargine [Lantus U-100 Insulin] 100 unit/mL Solution 10 unit SUB-Q DAILY RF: 0 lisinopril 20 mg Tablet 20 mg PO DAILY RF: 0 levothyroxine 75 mcg Tablet 75 mcg PO DAILY RF: 0 metoclopramide HCl [Reglan] 5 mg Tablet 5 mg PO BID RF: 0 amlodipine 10 mg Tablet 10 mg PO DAILY RF: 0 aspirin 81 mg Tablet,Chewable 81 mg PO DAILY RF: 0 B complex-vitamin C-folic acid [Nephro-Jammie] 0.8 mg Tablet 1 tab PO DAILY RF: 0 zolpidem 5 mg Tablet 1 tab PO HS RF: 0 mirtazapine [Remeron] 15 mg Tablet 15 mg PO DAILY RF: 0 albuterol sulfate [Ventolin HFA] 90 mcg/actuation Hfa Aerosol Inhaler 2 puff INHALATION Q4-6H PRN (Reason: Shortness Of Breath) RF: 0 megestrol [Megace ES] 625 mg/5 mL Suspension 400 mg PO DAILY RF: 0 cholecalciferol (vitamin D3) 50,000 unit Capsule 50,000 unit PO QWEEK RF: 0 tramadol 100 mg Tablet, Er Multiphase 24 Hr 100 mg PO DAILY PRN (Reason: Pain) RF: 0 ferric citrate 210 mg iron Tablet 420 mg PO TID RF: 0 Renvela 1 tab PO TID RF: 0 Discharge Interventions Interventions: Vital Signs Last Done: 04/29/18 15:40 Status ED Status: With Doctor
[2018-04-29 19:26] LABS: Alkaline Phosphatase 130 U/L (45-117); Total Protein 6.6 g/dL (6.4-8.2)
[2018-04-29] MEDS ORDERED: Sodium Chlor 0.9% Inj 250 ML IV.SIG SCH (20:00)
[2018-04-29] MEDS ORDERED: Acetaminophen 325 MG Tablet PO PRN (20:35)
[2018-04-29] MEDS ORDERED: Sod Chloride 0.9% Inj 1,000 ML OTHER PRN ×2 (20:35)
[2018-04-29] MEDS ORDERED: Sod Chloride 0.9% Inj 1,000 ML IV.CONT PRN (20:35)
[2018-04-29] MEDS ORDERED: Albumin Human 25% Inj 100 ML IV.SIG PRN (20:35)
[2018-04-29] MEDS ORDERED: Heparin 10,000 UNITS/10 ML Vial (for IV use) OTHER PRN ×2 (20:35)
--- NOTE | 2018-04-29 20:47 | P.HPFP ---
History of Present Illness Primary Care Physician: Charu Akbar MD, R3 <Anel Blair - 04/30/18 12:06> Charu Akbar MD, R3 <MaximilianoDee Dee Luevano T - 04/29/18 22:00> History of Present Illness: 73-year-old female with past medical history of end- stage renal disease on dialysis (MWF), s/p right BKA, diabetes, hypertension, hypothyroidism, COPD and recurrent GI bleeds who presents the ED for rectal bleeding. Patient states that she started having rectal bleeding on Saturday. She states that she started having diarrhea at the same time. She reports that the rectal bleeding slightly resolved, but then came back this morning. She reports that when she went to the bathroom this morning and her briefs were soaked with blood. She then decided that she needed to go to the hospital. She denies lightheadedness, fatigue, and weakness. Reports missing dialysis on Saturday because she stayed up all night going to the bathroom due to diarrhea. She has no other complaints at this time. She denies chest pain, shortness of breath, nausea and vomiting, and abdominal pain. Manager Risk Management, Dr. Greene <MaximilianoDee Dee Luevano T - 04/29/18 23:08> - Diagnosis (1) Chronic lower GI bleeding (2) ESRD (end stage renal disease) on dialysis (3) Type 2 diabetes mellitus with ESRD (end-stage renal disease) (4) Labile hypertension (5) Hypothyroid (6) Depression (7) Phantom pain (8) Insomnia (9) Nutrition, metabolism, and development symptoms <Anel Blair - 04/30/18 12:06> (1) Chronic lower GI bleeding (2) Acute blood loss anemia (3) ESRD (end stage renal disease) on dialysis (4) Diabetes mellitus (5) HTN (hypertension) (6) Hypothyroid (7) Depression (8) Nutrition, metabolism, and development symptoms <Dee Dee Viera - 04/29/18 23:02> Inpatient Certification: I certify that the inpatient services were ordered in accordance with Medicare regulations governing the order. This includes certification that hospital inpatient services are reasonable and necessary and in the case of services not specified as inpatient-only under 42 CFR 419.22(n), that they are appropriately provided as inpatient services in accordance to with the 2-midnight benchmark under 43 CFR 412.3(e) <Anel Blair - 04/30/18 12:06> Review of Systems Constitutional: Denies chills, Denies fatigue, Denies fever(s), Denies night sweats, Denies weight loss <MaximilianoDee Dee Luevano 04/29/18 22:04> Eyes: Denies blurry vision <MaximilianoDee Dee Luevano 04/29/18 22:04> Cardiovascular: Denies chest pain, Denies lightheadedness, Denies shortness of breath <MaximilianoDee Dee Luevano 04/29/18 22:04> Respiratory: Denies cough, Denies shortness of breath, Denies wheezing <Maximiliano Dee Dee Luevano 04/29/18 22:04> Gastrointestinal: Reports bright, red blood in stools, Denies abdominal pain, Denies nausea, Denies vomiting <MaximilianoDee Dee Luevano 04/29/18 22:04> Musculoskeletal: Denies muscle weakness <MaximilianoDee Deedouglas Luevano 04/29/18 22:04> Skin/Breast: Denies rash <MaximilianoDee Dee Luevano 04/29/18 22:04> Neurologic: Denies dizziness, Denies localized weakness, Denies weakness <Maximiliano Dee Dee Luevano 04/29/18 22:04> Psychiatric: Denies anxiety <MaximilianoDee Dee Luevano 04/29/18 22:04> PMFSH - History History Provided By: Patient <Yobany Vieran Luevano 04/29/18 20:47> - Medical History Medical History: Medical History (Last Reviewed 04/29/18 @ 19:20 by Willie May MD) Cataracts, bilateral Depression Diabetes mellitus Dialysis patient Foot abscess GERD (gastroesophageal reflux disease) GI bleeding HTN (hypertension) Hepatitis C Hypothyroid Renal failure <Anel Blair - 04/30/18 12:06> Medical History (Last Reviewed 04/29/18 @ 19:20 by Willie May MD) Cataracts, bilateral Depression Diabetes mellitus Dialysis patient Foot abscess GERD (gastroesophageal reflux disease) GI bleeding HTN (hypertension) Hepatitis C Hypothyroid Renal failure <MaximilianoDee Deedouglas Luevano 04/29/18 20:47> - Surgical History Surgical History: Surgical History (Last Reviewed 04/29/18 @ 19:20 by Willie May MD) Amputation of leg History of colon resection <Rossy,Anel - 04/30/18 12:06> Surgical History (Last Reviewed 04/29/18 @ 19:20 by Willie May MD) Amputation of leg History of colon resection <Dee eDe Viera T - 04/29/18 20:47> - Tobacco History Second Hand Smoke Exposure: No <Dee Dee Viera T - 04/29/18 20:47> Tobacco Use In Past 30 Days: Yes <Dee Dee Viera T - 04/29/18 20:47> Smoking Status: Current some day smoker <Dee Dee Viera 04/29/18 20:47> Tobacco Type: Cigarettes <Dee Dee Viera T - 04/29/18 20:47> - Alcohol History How Often Do You Have a Drink Containing Alcohol: 2 to 4 times a month <Dee Dee Viera T - 04/29/18 20:47> - Substance Use History Substance History: No History of Abuse <Dee Dee Viera T - 04/29/18 20:47> - Travel History Recent Travel in the [facility] Within the Last 8 Weeks: No <Dee Dee Viera - 04/29 20:47> Recent Travel Out of the Country Within the Last 8 Weeks: No <Dee Dee Viera T - 04/29/18 20:47> - Immunization History Tetanus Immunization: Unsure <Dee Dee Viera - 04/29/18 20:47> Hx Influenza Vaccine This Season: No <Dee Dee Viera T - 04/29/18 20:47> Medications and Allergies Allergies Allergy/AdvReac Type Severity Reaction Status Date / Time No Known Allergies Allergy Verified 04/29/18 19:18 <RossySam barclayt - 04/30/18 12:06> Home Medications Medication Instructions Recorded Confirmed Type B complex-vitamin C-folic acid 1 tab PO DAILY 04/22/18 04/29/18 History [Nephro-Jammie] Renvela 1 tab PO TID 04/22/18 04/29/18 History albuterol sulfate [Ventolin HFA] 2 puff INHALATION Q4-6H PRN 04/22/18 04/29/18 History aspirin 81 mg PO DAILY 04/22/18 04/29/18 History cholecalciferol (vitamin D3) 50,000 unit PO QWEEK 04/22/18 04/29/18 History ferric citrate 420 mg PO TID 04/22/18 04/29/18 History insulin glargine [Lantus U-100 10 unit SUB-Q DAILY 04/22/18 04/29/18 History Insulin] megestrol [Megace ES] 400 mg PO DAILY 04/22/18 04/29/18 History metoclopramide HCl [Reglan] 5 mg PO BID 04/22/18 04/29/18 History mirtazapine [Remeron] 15 mg PO DAILY 04/22/18 04/29/18 History zolpidem 1 tab PO HS 04/22/18 04/29/18 History <RossyAnel - 04/30/18 12:06> Active Medications: Active Medications Acetaminophen (Tylenol) 650 mg PO UNSCH X1 PRN PRN Reason: SEE LABEL COMMENTS Acetaminophen (Tylenol) 650 mg PO HS CHANDLER Albuterol (Ventolin Hfa Inh) 2 puff INH Q4H PRN PRN Reason: SHORTNESS OF BREATH Clonidine HCl (Catapres) 0.1 mg PO UNSCH X1 PRN PRN Reason: SEE LABEL COMMENTS Last Admin: 04/30/18 11:52 Dose: 0.1 mg Dextrose (D50w Vial) 50 ml IV.PUSH UNSCH PRN PRN Reason: PER HYPOGLYCEMIA PROTOCOL Diphenhydramine HCl (Benadryl) 25 mg PO UNSCH PRN PRN Reason: SEE LABEL COMMENTS Epoetin Néstor (Epogen Inj) 10,000 unit IV.PUSH UNSCH PRN PRN Reason: SEE LABEL COMMENTS Last Admin: 04/30/18 11:53 Dose: 10,000 unit Gelatin (Gelfoam 12 Mm/7 Mm Topical) 1 foam TOPICAL UNSCH PRN PRN Reason: help stop bleeding from site Last Admin: 04/30/18 11:53 Dose: 1 foam Gentamicin Sulfate (Gentamicin Inj) 20 mg OTHER WITH DIALYSIS PRN PRN Reason: Dwell Gentamycin Lock Glucagon (Glucagon Inj) 1 mg OTHER PRN PRN PRN Reason: for Hypoglycemia Protocol Heparin Sodium (Porcine) (Heparin Inj) 8,000 units OTHER WITH DIALYSIS PRN PRN Reason: for machine prime Heparin Sodium (Porcine) (Heparin Inj) 0 units OTHER WITH DIALYSIS PRN PRN Reason: Dwell Heparin to Fill Catheter Sodium Chloride (Ns Inj) 250 mls @ 15 mls/hr IV.SIG ONCE [facility] Stop: 04/30/18 12:39 Last Admin: 04/29/18 21:55 Dose: Not Given Albumin Human (Flexbumin 25% Inj) 100 mls @ 60 mls/hr IV.SIG WITH DIALYSIS PRN PRN Reason: hypotension / volume replace Sodium Chloride (Ns Inj) 1,000 mls @ 0 mls/hr OTHER .Q0M PRN PRN Reason: for prime and rinse back Last Infusion: 04/30/18 00:00 Dose: Infused Sodium Chloride (Ns Inj) 1,000 mls @ 200 mls/hr OTHER .Q5H PRN PRN Reason: for dialyzer flush PRN Sodium Chloride (Ns Inj) 1,000 mls @ 0 mls/hr IV.CONT .Q0M PRN PRN Reason: hypotension / volume replace Insulin Aspart (Novolog Insulin Correctional Sugar Inj) 0 unit SQ ACHS AND 3AM CHANDLER; Protocol Last Admin: 04/30/18 07:47 Dose: Not Given Levothyroxine Sodium (Synthroid) 88 mcg PO DAILY@0600 [facility] Last Admin: 04/30/18 05:34 Dose: 88 mcg Mannitol (Mannitol Inj) 12.5 gm IV.PUSH UNSCH PRN PRN Reason: hypotension / volume replace Mirtazapine (Remeron) 15 mg PO DAILY [facility] Last Admin: 04/30/18 08:09 Dose: 15 mg Nitroglycerin (Nitrostat Sl) 0.4 mg SL Q5M PRN PRN Reason: CHEST PAIN Non-Formulary Medication (Cholecalciferol (Vitamin D3) [Cholecalciferol ( Vitamin D3)]) 50,000 unit PO QWEEK [facility] Ondansetron HCl (Zofran Inj) 4 mg IV.PUSH UNSCH X1 PRN PRN Reason: NAUSEA OR VOMITING Pantoprazole Sodium (Protonix Inj) 40 mg IV.PUSH Q12H [facility] Last Admin: 04/30/18 04:06 Dose: Not Given Patient Own Med- Ferric Citrate ( Ferric Citrate) 420mg 0 each PO TID [facility] Patient Own Me- Meegestrol (Megace Es) 400mg 0 each PO DAILY CHANDLER Sodium Chloride (Ns Flush) 2 ml IV.FLUSH PRN PRN PRN Reason: FLUSH AFTER USING IV ACCESS Sodium Chloride (Ns Flush) 5 ml IV.FLUSH UNSCH PRN PRN Reason: flush each lumen during HD Sodium Chloride (Ns Flush) 2 ml IV.FLUSH BID [facility] Last Admin: 04/30/18 08:10 Dose: 2 ml Sodium Chloride (Ns Flush) 2 ml IV.FLUSH PRN PRN PRN Reason: FLUSH AFTER USING IV ACCESS Vitamin B Complex/Vit C/Folic Acid (Nephrocaps) 1 tab PO DAILY [facility] Last Admin: 04/30/18 08:09 Dose: 1 tab Zolpidem Tartrate (Ambien) 5 mg PO HS PRN PRN Reason: insomnia <Anel Blair - 04/30/18 12:06> Active Medications Acetaminophen (Tylenol) 650 mg PO UNSCH PRN PRN Reason: SEE LABEL COMMENTS Clonidine HCl (Catapres) 0.1 mg PO UNSCH PRN PRN Reason: SEE LABEL COMMENTS Diphenhydramine HCl (Benadryl) 25 mg PO UNSCH PRN PRN Reason: SEE LABEL COMMENTS Epoetin Néstor (Epogen Inj) 10,000 unit IV.PUSH UNSCH PRN PRN Reason: SEE LABEL COMMENTS Gelatin (Gelfoam 12 Mm/7 Mm Topical) 1 foam TOPICAL PRN PRN PRN Reason: help stop bleeding from site Gentamicin Sulfate (Gentamicin Inj) 20 mg OTHER WITH DIALYSIS PRN PRN Reason: Dwell Gentamycin Lock Heparin Sodium (Porcine) (Heparin Inj) 8,000 units OTHER WITH DIALYSIS PRN PRN Reason: for machine prime Heparin Sodium (Porcine) (Heparin Inj) 1,000 units OTHER WITH DIALYSIS PRN PRN Reason: Dwell Heparin to Fill Catheter Sodium Chloride (Ns Inj) 250 mls @ 15 mls/hr IV.SIG ONCE [facility] Stop: 04/30/18 12:39 Albumin Human (Flexbumin 25% Inj) 100 mls @ 60 mls/hr IV.SIG WITH DIALYSIS PRN PRN Reason: hypotension / volume replace Sodium Chloride (Ns Inj) 1,000 mls @ 0 mls/hr OTHER .Q0M PRN PRN Reason: for prime and rinse back Sodium Chloride (Ns Inj) 1,000 mls @ 200 mls/hr OTHER .Q5H PRN PRN Reason: for dialyzer flush PRN Sodium Chloride (Ns Inj) 1,000 mls @ 0 mls/hr IV.CONT .Q0M PRN PRN Reason: hypotension / volume replace Mannitol (Mannitol Inj) 12.5 gm IV.PUSH UNSCH PRN PRN Reason: hypotension / volume replace Nitroglycerin (Nitrostat Sl) 0.4 mg SL Q5M PRN PRN Reason: CHEST PAIN Ondansetron HCl (Zofran Inj) 4 mg IV.PUSH UNSCH PRN PRN Reason: NAUSEA OR VOMITING Sodium Chloride (Ns Flush) 2 ml IV.FLUSH PRN PRN PRN Reason: FLUSH AFTER USING IV ACCESS Sodium Chloride (Ns Flush) 5 ml IV.FLUSH PRN PRN PRN Reason: flush each lumen during HD <MaximilianoDee Deedouglas Luevano T - 04/29/18 20:47> Exam Vital signs: Vital Signs 04/29/18 15:14 04/29/18 15:40 04/29/18 19:19 Temperature 98.8 F Pulse Rate 79 79 Respiratory Rate 17 18 Blood Pressure 196/93 H 197/87 H Pulse Oximetry 98 98 97 04/29/18 21:15 04/30/18 00:05 04/30/18 00:30 Temperature 98.1 F 98.0 F Pulse Rate 82 79 82 Respiratory Rate 16 18 Blood Pressure 139/87 198/88 H Pulse Oximetry 93 L 04/30/18 04:00 04/30/18 08:00 Temperature 98.4 F 99 F Pulse Rate 80 84 Respiratory Rate 16 17 Blood Pressure 165/73 H 160/69 H Pulse Oximetry 90 L 100 Intake & Output 04/29/18 04/30/18 04/30/18 18:59 06:59 18:59 Intake Total 530 / 530 Output Total 3000 / 3000 Balance -2470 / -2470 Weight 58.06 kg 56.7 kg Intake: IV 500 / 500 NS Inj 1,000 ML @ As Directed 500 / 500 OTHER .Q0M PRN Rx#:[id number] Oral 30 / 30 Intake (Blood Product) Amt 0 / 0 Rbc As-3 Leukoreduced Unit 0 / 0 [id number] Rbc As-3 Leukoreduced Unit 0 / 0 [id number] Output: Urine 0 / 0 Hemodialysis Amount 3000 / 3000 Other: # Incontinent Bowel Movements 3 Weight On Admission 55.9 kg <Anel Blair - 04/30/18 12:06> Vital Signs 04/29/18 15:14 04/29/18 15:40 04/29/18 19:19 Temperature 98.8 F Pulse Rate 79 79 Respiratory Rate 17 18 Blood Pressure 196/93 H 197/87 H Pulse Oximetry 98 98 97 Intake & Output 04/29/18 04/29/18 04/30/18 06:59 18:59 06:59 Weight 58.06 kg <Dee Dee Viera 04/29/18 20:47> - Constitutional no acute distress, thin <Dee Dee Viera 04/29/18 22:42> Comments: Patient seen in dialysis. Resting comfortably. <Dee Dee Viera 04/29/18 22:42> - Routine HEENT Exam Head: Present: normocephalic, atraumatic <Dee Dee Viera 04/29/18 22:42> Eye: Present: EOMI, PERRL <Dee Dee Viera 04/29/18 22:42> ENT: Present: oropharynx clear <Dee Dee Viera 04/29/18 22:42> Comments: Pallor of the conjunctiva b/l noted <Dee Dee Viera 04/29/18 22:42> - Routine Neck Exam Present: supple, full ROM <Dee Dee Viera 04/29/18 22:42> - Routine Respiratory Exam Present: CTA bilaterally. Absent: wheezes, crackles <Dee Dee Viera 04/29 22:42> - Routine Cardiovascular Exam Present: RRR, S1, S2. Absent: murmur, gallop, rubs <Dee Dee Viera 22:42> - Routine Abdominal Exam Present: soft, normoactive bowel sounds. Absent: tenderness, distended, rebound <Dee Dee Viera 04/29/18 22:42> - Routine Extremities Exam Present: normal capillary refill. Absent: cyanosis, clubbing, edema <Dee Dee Viera 04/29/18 22:42> - Routine Skin Exam Present: intact. Absent: cyanosis <Dee Dee Viera T - 04/29/18 22:42> - Routine Neurological Exam Present: alert, oriented X3 <Dee Dee Viera T - 04/29/18 22:42> Results - Labs Result diagrams: 04/30/18 10:30 04/29/18 18:40 <Anel Blair - 04/30/18 12:06> Abnormal lab results 04/29/18 04/29/18 04/29/18 Range/Units 18:40 18:40 18:40 RBC 2.71 L (4.00-5.30) mil/mm3 Hgb 7.5 L (11.6-15.3) gm/dL Hct 24.0 L (35.0-46.0) % MCHC 31.1 L (32.0-36.0) % RDW 19.2 H (11.6-17.2) % Eos % (Auto) 5.7 H (0.0-4.0) % PT 11.8 H (9.8-11.6) sec APTT 24.0 L (24.3-30.1) sec Potassium 5.6 H (3.5-5.1) meq/L Chloride 108 H (98-107) meq/L Carbon Dioxide 19.8 L (21.0-32.0) meq/L BUN 80 H (7-18) mg/dL Creatinine 10.47 H* (0.50-1.00) mg/dL Estimated GFR 4 L (>89) mL/min Random Glucose 112 H (74-106) mg/dL Calcium 7.6 L (8.5-10.1) mg/dL Alkaline Phosphatase 130 H (45-117) U/L Albumin 2.7 L (3.4-5.0) g/dL MTS Gel Crossmatch 04/29/18 04/30/18 04/30/18 Range/Units 18:40 02:30 10:30 RBC (4.00-5.30) mil/mm3 Hgb 8.8 L 8.8 L (11.6-15.3) gm/dL Hct 26.2 L 26.9 L (35.0-46.0) % MCHC (32.0-36.0) % RDW (11.6-17.2) % Eos % (Auto) (0.0-4.0) % PT (9.8-11.6) sec APTT (24.3-30.1) sec Potassium (3.5-5.1) meq/L Chloride (98-107) meq/L Carbon Dioxide (21.0-32.0) meq/L BUN (7-18) mg/dL Creatinine (0.50-1.00) mg/dL Estimated GFR (>89) mL/min Random Glucose (74-106) mg/dL Calcium (8.5-10.1) mg/dL Alkaline Phosphatase (45-117) U/L Albumin (3.4-5.0) g/dL MTS Gel Crossmatch See Detail Short CBC 04/29/18 04/30/18 04/30/18 Range/Units 18:40 02:30 10:30 WBC 6.4 (4.0-11.0) th/mm3 Hgb 7.5 L 8.8 L 8.8 L (11.6-15.3) gm/dL Hct 24.0 L 26.2 L 26.9 L (35.0-46.0) % Plt Count 292 (150-450) th/mm3 BMP 04/29/18 18:40 Sodium 142 Potassium 5.6 H Chloride 108 H Carbon Dioxide 19.8 L BUN 80 H Creatinine 10.47 H* Calcium 7.6 L Liver Function 04/29/18 Range/Units 18:40 Total Bilirubin 0.3 (0.2-1.0) mg/dL AST 17 (15-37) U/L ALT 17 (10-53) U/L Alkaline Phosphatase 130 H (45-117) U/L Albumin 2.7 L (3.4-5.0) g/dL <Anel Blair - 04/30/18 12:06> Abnormal lab results 04/29/18 04/29/18 04/29/18 Range/Units 18:40 18:40 18:40 RBC 2.71 L (4.00-5.30) mil/mm3 Hgb 7.5 L (11.6-15.3) gm/dL Hct 24.0 L (35.0-46.0) % MCHC 31.1 L (32.0-36.0) % RDW 19.2 H (11.6-17.2) % Eos % (Auto) 5.7 H (0.0-4.0) % PT 11.8 H (9.8-11.6) sec APTT 24.0 L (24.3-30.1) sec Potassium 5.6 H (3.5-5.1) meq/L Chloride 108 H (98-107) meq/L Carbon Dioxide 19.8 L (21.0-32.0) meq/L BUN 80 H (7-18) mg/dL Creatinine 10.47 H* (0.50-1.00) mg/dL Estimated GFR 4 L (>89) mL/min Random Glucose 112 H (74-106) mg/dL Calcium 7.6 L (8.5-10.1) mg/dL Alkaline Phosphatase 130 H (45-117) U/L Albumin 2.7 L (3.4-5.0) g/dL MTS Gel Crossmatch 04/29/18 Range/Units 18:40 RBC (4.00-5.30) mil/mm3 Hgb (11.6-15.3) gm/dL Hct (35.0-46.0) % MCHC (32.0-36.0) % RDW (11.6-17.2) % Eos % (Auto) (0.0-4.0) % PT (9.8-11.6) sec APTT (24.3-30.1) sec Potassium (3.5-5.1) meq/L Chloride (98-107) meq/L Carbon Dioxide (21.0-32.0) meq/L BUN (7-18) mg/dL Creatinine (0.50-1.00) mg/dL Estimated GFR (>89) mL/min Random Glucose (74-106) mg/dL Calcium (8.5-10.1) mg/dL Alkaline Phosphatase (45-117) U/L Albumin (3.4-5.0) g/dL MTS Gel Crossmatch See Detail Short CBC 04/29/18 Range/Units 18:40 WBC 6.4 (4.0-11.0) th/mm3 Hgb 7.5 L (11.6-15.3) gm/dL Hct 24.0 L (35.0-46.0) % Plt Count 292 (150-450) th/mm3 BMP 04/29/18 18:40 Sodium 142 Potassium 5.6 H Chloride 108 H Carbon Dioxide 19.8 L BUN 80 H Creatinine 10.47 H* Calcium 7.6 L Liver Function 04/29/18 Range/Units 18:40 Total Bilirubin 0.3 (0.2-1.0) mg/dL AST 17 (15-37) U/L ALT 17 (10-53) U/L Alkaline Phosphatase 130 H (45-117) U/L Albumin 2.7 L (3.4-5.0) g/dL <Dee Dee Viera - 04/29/18 20:47> Caprini VTE Risk Assessment Caprini VTE Risk Assessment: Moderate/High Risk (score >= 2) <Dee Dee Viera 04/29/18 22:42> Randii Risk Assessment Model: Point Value = 1 Point Value = 2 Point Value = 3 Point Value = 5 Age 41-60 Minor surgery BMI > 25 kg/m2 Swollen legs Varicose veins or History of unexplained or recurrent spontaneous Oral contraceptives or hormone replacement Sepsis (< 1 month) Serious lung disease, including pneumonia (< 1 month) Abnormal pulmonary function Acute myocardial infarction Congestive heart failure (< 1 month) History of inflammatory bowel disease Medical patient at bed rest Age 61-74 Arthroscopic surgery Major open surgery (> 45 min) Laparoscopic surgery (> 45 min) Malignancy Confined to bed (> 72 hours) Immobilizing plaster cast Central venous access Age >= 75 History of VTE Family history of VTE Factor V Leiden Prothrombin [id number] Lupus anticoagulant Anticardiolipin antibodies Elevated serum homocysteine Heparin-induced thrombocytopenia Other congenital or acquired thrombophilia Stroke (< 1 month) Elective arthroplasty Hip, pelvis, or leg fracture Acute spinal cord injury (< 1 month) <Anel Blair - 04/30/18 12:06> Point Value = 1 Point Value = 2 Point Value = 3 Point Value = 5 Age 41-60 Minor surgery BMI > 25 kg/m2 Swollen legs Varicose veins or History of unexplained or recurrent spontaneous Oral contraceptives or hormone replacement Sepsis (< 1 month) Serious lung disease, including pneumonia (< 1 month) Abnormal pulmonary function Acute myocardial infarction Congestive heart failure (< 1 month) History of inflammatory bowel disease Medical patient at bed rest Age 61-74 Arthroscopic surgery Major open surgery (> 45 min) Laparoscopic surgery (> 45 min) Malignancy Confined to bed (> 72 hours) Immobilizing plaster cast Central venous access Age >= 75 History of VTE Family history of VTE Factor V Leiden Prothrombin [id number] Lupus anticoagulant Anticardiolipin antibodies Elevated serum homocysteine Heparin-induced thrombocytopenia Other congenital or acquired thrombophilia Stroke (< 1 month) Elective arthroplasty Hip, pelvis, or leg fracture Acute spinal cord injury (< 1 month) <Dee Dee Viera - 04/29/18 22:42> Prophylaxis Regimen: Total Risk Factor Score Risk Level Prophylaxis Regimen 0-1 Low Early ambulation 2 Moderate Order ONE of the following: *Sequential Compression Device (SCD) *Heparin 5000 units SQ BID 3-4 Higher Order ONE of the following medications: *Heparin 5000 units SQ TID *Enoxaparin/Lovenox 40 mg SQ daily (WT < 150 kg, CrCl > 30 mL/min) *Enoxaparin/Lovenox 30 mg SQ daily (WT < 150 kg, CrCl > 10-29 mL/min) *Enoxaparin/Lovenox 30 mg SQ BID (WT < 150 kg, CrCl > 30 mL/min) AND/OR *Sequential Compression Device (SCD) 5 or more Highest Order ONE of the following medications: *Heparin 5000 units SQ TID (Preferred with Epidurals) *Enoxaparin/Lovenox 40 mg SQ daily (WT < 150 kg, CrCl > 30 mL/min) *Enoxaparin/Lovenox 30 mg SQ daily (WT < 150 kg, CrCl > 10-29 mL/min) *Enoxaparin/Lovenox 30 mg SQ BID (WT < 150 kg, CrCl > 30 mL/min) AND *Sequential Compression Device (SCD) <Anel Blair - 04/30/18 12:06> Total Risk Factor Score Risk Level Prophylaxis Regimen 0-1 Low Early ambulation 2 Moderate Order ONE of the following: *Sequential Compression Device (SCD) *Heparin 5000 units SQ BID 3-4 Higher Order ONE of the following medications: *Heparin 5000 units SQ TID *Enoxaparin/Lovenox 40 mg SQ daily (WT < 150 kg, CrCl > 30 mL/min) *Enoxaparin/Lovenox 30 mg SQ daily (WT < 150 kg, CrCl > 10-29 mL/min) *Enoxaparin/Lovenox 30 mg SQ BID (WT < 150 kg, CrCl > 30 mL/min) AND/OR *Sequential Compression Device (SCD) 5 or more Highest Order ONE of the following medications: *Heparin 5000 units SQ TID (Preferred with Epidurals) *Enoxaparin/Lovenox 40 mg SQ daily (WT < 150 kg, CrCl > 30 mL/min) *Enoxaparin/Lovenox 30 mg SQ daily (WT < 150 kg, CrCl > 10-29 mL/min) *Enoxaparin/Lovenox 30 mg SQ BID (WT < 150 kg, CrCl > 30 mL/min) AND *Sequential Compression Device (SCD) <Dee Dee Viera - 04/29/18 22:42> Assessment and Plan - Assessment (1) Chronic lower GI bleeding Code(s): K92.2 - Gastrointestinal hemorrhage, unspecified Status: Acute (2) ESRD (end stage renal disease) on dialysis Code(s): N18.6 - End stage renal disease; Z99.2 - Dependence on renal dialysis Status: Chronic (3) Type 2 diabetes mellitus with ESRD (end-stage renal disease) Code(s): E11.22 - Type 2 diabetes mellitus with diabetic chronic kidney disease ; N18.6 - End stage renal disease Status: Acute (4) Labile hypertension Code(s): R09.89 - Other specified symptoms and signs involving the circulatory and respiratory systems Status: Acute (5) Hypothyroid Code(s): E03.9 - Hypothyroidism, unspecified Status: Chronic (6) Depression Code(s): F32.9 - Major depressive disorder, single episode, unspecified Status : Chronic (7) Phantom pain Code(s): G54.6 - Phantom limb syndrome with pain Status: Acute (8) Insomnia Code(s): G47.00 - Insomnia, unspecified Status: Acute (9) Nutrition, metabolism, and development symptoms Code(s): R63.8 - Other symptoms and signs concerning food and fluid intake Status: Acute <Anel Blair - 04/30/18 12:06> (1) Chronic lower GI bleeding Code(s): K92.2 - Gastrointestinal hemorrhage, unspecified Status: Acute Plan: 73-year-old female with past medical history of hypertension, ESRD on dialysis ( MWF), hypothyroidism, diabetes, and depression presents with acute on chronic blood loss anemia secondary to lower GI bleed. Patient admitted for blood transfusion and to be seen by GI and nephrology. -Per EMR, patient was hospitalized for a GI bleed back in March. GI was consulted at that time. Patient underwent the EGD and colonoscopy on 03/14. Colonoscopy demonstrated anastomosis of the left colon with blood clots around the anastomosis, internal hemorrhoids. EGD demonstrated normal esophagus, mild gastritis in the gastric antrum where biopsy was performed, normal duodenal mucosa, hiatal hernia. Gastric antrum biopsy demonstrating antral mucosa with mild active chronic gastritis and focal intestinal metaplasia. Patient was to have colonoscopy and Hemoccult repeated in 1 year. Patient also was recommended to have repeat EGD in 3 years. -hx of left colectomy and low anterior anastomosis by Dr. De La Cruz -H/H- 7.5/24.0 on admission -Transfuse 2 units of packed red blood cells, to be given at dialysis -H/H ordered post-transfusion -Start Protonix 40mg IV q12h -Held Aspirin -GI consulted, appreciate recs (2) Acute blood loss anemia Code(s): D62 - Acute posthemorrhagic anemia Status: Acute Plan: see plan above (3) ESRD (end stage renal disease) on dialysis Code(s): N18.6 - End stage renal disease; Z99.2 - Dependence on renal dialysis Status: Chronic Plan: Patient receives dialysis (MW). Manager Risk Management, Dr. Greene Nephrology consulted, appreciate recs Patient missed dialysis on Saturday due to diarrhea Cr-10.47 on admission Patient will receive dialysis today (4) Diabetes mellitus Code(s): E11.9 - Type 2 diabetes mellitus without complications Status: Acute Plan: Accuchecks Hypoglycemia protocol Novolog low SS Continue home glargine 10units daily (5) HTN (hypertension) Code(s): I10 - Essential (primary) hypertension Status: Chronic Plan: Patient reports being taken off lisinopril and amlodipine by nephrology due to history of hypotension. Clonidine 0.1 mg PRN for BP >180/100 Continue to monitor (6) Hypothyroid Code(s): E03.9 - Hypothyroidism, unspecified Status: Chronic Plan: Continue on levothyroxine 80mcg daily (7) Depression Code(s): F32.9 - Major depressive disorder, single episode, unspecified Status : Chronic Plan: Continue mirtazapine 50 mg p.o. daily (8) Nutrition, metabolism, and development symptoms Code(s): R63.8 - Other symptoms and signs concerning food and fluid intake Status: Acute Plan: Diet: NPO for possible GI procedure Fluids: None Electrolytes: to be managed by nephrology GI ppx: Protonix DVT ppx: SCD, chemical ppx contraindicated Case management and PT consulted <Dee Dee Viera - 04/29/18 23:02> - Attending Attestation H&P reviewed and corroborated with pt at bedside. I reviewed and agree with the findings presented. <Anel Blair - 04/30/18 12:06> Attending MD Adm Certification - Admission Certification Service Location: [facility] <Anel Blair - 04/30/18 12:06> Admission Certification: I certify that the inpatient services were ordered in accordance with Medicare regulations governing the order. This includes certification that hospital inpatient services are reasonable and necessary and in the case of services not specified as inpatient-only under 42 CFR 419.22(n), that they are appropriately provided as inpatient services in accordance to with the 2-midnight benchmark under 43 CFR 412.3(e) <Anel Blair - 04/30/18 12:06> Estimated Total Length of Stay (Days): 2 <Anel Blair - 04/30/18 12:06> Plans for Post Hospital Care: Home <Anel Blair - 04/30/18 12:06> [facility] Certification: I certify that the beneficiary may reasonable be expected to be discharged or transferred to a hospital within 96 hours after admission to the [facility] ([facility]). <Anel Blair - 04/30/18 12:06> <Dee Dee Viera Luevano T - Last Filed: 04/29/18 23:02> (4) Diabetes mellitus Qualifiers: Diabetes mellitus type: type 2 Diabetes mellitus complication status: with kidney complications Diabetes mellitus complication detail: with chronic kidney disease Chronic kidney disease stage: on chronic dialysis <RossySamt - Last Filed: 04/30/18 12:06> (8) Insomnia Qualifiers: Qualified Code(s): F51.01 - Primary insomnia <Dee Dee Viera Luevano T - Last Filed: 04/29/18 23:02> (4) Diabetes mellitus Qualifiers: Diabetes mellitus type: type 2 Diabetes mellitus complication status: with kidney complications Diabetes mellitus complication detail: with chronic kidney disease Chronic kidney disease stage: on chronic dialysis <RossyAnel - Last Filed: 04/30/18 12:06> (8) Insomnia Qualifiers: Qualified Code(s): F51.01 - Primary insomnia
[2018-04-29] MEDS: Gelatin 12 MM/7 MM Topical Foam TOPICAL PRN (21:08)
[2018-04-29] MEDS ORDERED: Pantoprazole Inj 40 MG Vial IV.PUSH SCH (21:21)
[2018-04-29] MEDS ORDERED: Dextrose 50% in Water 50 ML Vial IV.PUSH PRN (21:41)
[2018-04-29] MEDS ORDERED: Zolpidem Tartrate 5 MG Tablet PO PRN (21:43)
[2018-04-30 02:46] LABS: Hematocrit 26.2 % (35.0-46.0); Hemoglobin 8.8 gm/dL (11.6-15.3)
[2018-04-30] MEDS: Pantoprazole Inj 40 MG Vial IV.PUSH SCH ×3 (04:06→22:18)
[2018-04-30] MEDS: Insulin NovoLOG Aspart Correctional Sugar Inj SQ SCH ×5 (04:42→22:17)
[2018-04-30] MEDS: Levothyroxine 88 MCG Tablet PO SCH (05:34)
[2018-04-30] MEDS: Mirtazapine 15 MG Tablet PO SCH (08:09)
[2018-04-30] MEDS: Vitamin B Complex/Vit C/Folic Tablet PO SCH (08:09)
[2018-04-30] MEDS ORDERED: [UNRECOGNIZED DRUG - OTHER] PO SCH (09:00)
[2018-04-30] MEDS ORDERED: FERRIC CITRATE 420 MG PO SCH (09:00)
[2018-04-30] MEDS ORDERED: Insulin Detemir Inj 1,000 UNIT/10 ML Vial SQ SCH (09:00)
--- NOTE | 2018-04-30 09:00 | P.PNFP ---
Subjective Interval history: ROS home Accu-Cheks 115-130s, blood pressures labile, predominantly high, off amlodipine and CARLOS-I for "months". States good appetite, hungry now, but understands NPO for GI procedure. Denies abdominal pain. Endorses occasional "phantom" pain Right LE stump, "wakes me up at night". "screams out" when it happens, then has trouble sleeping. <Anel Blair - 04/30/18 11:50> Pt seen and examined this morning. Pt admitted overnight for GI bleeding. Received 2 units of pRBC during dialysis last night as well. This morning reports feeling tired. Had diarrhea bowel movement last night with some dark, red blood in her briefs. Denies any abdominal pain with or without bowel movement. Reports no dizziness or weakness today. Otherwise, denies any new concerns, no chest pain, SOB, fever/chills, nausea/vomiting. <Reymundo Shine - 04/30/18 10:56> Results - Labs Result diagrams: 04/30/18 10:30 04/29/18 18:40 <Anel Blair - 04/30/18 12:11> Abnormal lab results 04/29/18 04/29/18 04/29/18 Range/Units 18:40 18:40 18:40 RBC 2.71 L (4.00-5.30) mil/mm3 Hgb 7.5 L (11.6-15.3) gm/dL Hct 24.0 L (35.0-46.0) % MCHC 31.1 L (32.0-36.0) % RDW 19.2 H (11.6-17.2) % Eos % (Auto) 5.7 H (0.0-4.0) % PT 11.8 H (9.8-11.6) sec APTT 24.0 L (24.3-30.1) sec Potassium 5.6 H (3.5-5.1) meq/L Chloride 108 H (98-107) meq/L Carbon Dioxide 19.8 L (21.0-32.0) meq/L BUN 80 H (7-18) mg/dL Creatinine 10.47 H* (0.50-1.00) mg/dL Estimated GFR 4 L (>89) mL/min Random Glucose 112 H (74-106) mg/dL Calcium 7.6 L (8.5-10.1) mg/dL Alkaline Phosphatase 130 H (45-117) U/L Albumin 2.7 L (3.4-5.0) g/dL MTS Gel Crossmatch 04/29/18 04/30/18 04/30/18 Range/Units 18:40 02:30 10:30 RBC (4.00-5.30) mil/mm3 Hgb 8.8 L 8.8 L (11.6-15.3) gm/dL Hct 26.2 L 26.9 L (35.0-46.0) % MCHC (32.0-36.0) % RDW (11.6-17.2) % Eos % (Auto) (0.0-4.0) % PT (9.8-11.6) sec APTT (24.3-30.1) sec Potassium (3.5-5.1) meq/L Chloride (98-107) meq/L Carbon Dioxide (21.0-32.0) meq/L BUN (7-18) mg/dL Creatinine (0.50-1.00) mg/dL Estimated GFR (>89) mL/min Random Glucose (74-106) mg/dL Calcium (8.5-10.1) mg/dL Alkaline Phosphatase (45-117) U/L Albumin (3.4-5.0) g/dL MTS Gel Crossmatch See Detail Short CBC 04/29/18 04/30/18 04/30/18 Range/Units 18:40 02:30 10:30 WBC 6.4 (4.0-11.0) th/mm3 Hgb 7.5 L 8.8 L 8.8 L (11.6-15.3) gm/dL Hct 24.0 L 26.2 L 26.9 L (35.0-46.0) % Plt Count 292 (150-450) th/mm3 BMP 04/29/18 18:40 Sodium 142 Potassium 5.6 H Chloride 108 H Carbon Dioxide 19.8 L BUN 80 H Creatinine 10.47 H* Calcium 7.6 L Liver Function 04/29/18 Range/Units 18:40 Total Bilirubin 0.3 (0.2-1.0) mg/dL AST 17 (15-37) U/L ALT 17 (10-53) U/L Alkaline Phosphatase 130 H (45-117) U/L Albumin 2.7 L (3.4-5.0) g/dL <Anel Blair - 04/30/18 12:11> Abnormal lab results 04/29/18 04/29/18 04/29/18 Range/Units 18:40 18:40 18:40 RBC 2.71 L (4.00-5.30) mil/mm3 Hgb 7.5 L (11.6-15.3) gm/dL Hct 24.0 L (35.0-46.0) % MCHC 31.1 L (32.0-36.0) % RDW 19.2 H (11.6-17.2) % Eos % (Auto) 5.7 H (0.0-4.0) % PT 11.8 H (9.8-11.6) sec APTT 24.0 L (24.3-30.1) sec Potassium 5.6 H (3.5-5.1) meq/L Chloride 108 H (98-107) meq/L Carbon Dioxide 19.8 L (21.0-32.0) meq/L BUN 80 H (7-18) mg/dL Creatinine 10.47 H* (0.50-1.00) mg/dL Estimated GFR 4 L (>89) mL/min Random Glucose 112 H (74-106) mg/dL Calcium 7.6 L (8.5-10.1) mg/dL Alkaline Phosphatase 130 H (45-117) U/L Albumin 2.7 L (3.4-5.0) g/dL MTS Gel Crossmatch 04/29/18 04/30/18 Range/Units 18:40 02:30 RBC (4.00-5.30) mil/mm3 Hgb 8.8 L (11.6-15.3) gm/dL Hct 26.2 L (35.0-46.0) % MCHC (32.0-36.0) % RDW (11.6-17.2) % Eos % (Auto) (0.0-4.0) % PT (9.8-11.6) sec APTT (24.3-30.1) sec Potassium (3.5-5.1) meq/L Chloride (98-107) meq/L Carbon Dioxide (21.0-32.0) meq/L BUN (7-18) mg/dL Creatinine (0.50-1.00) mg/dL Estimated GFR (>89) mL/min Random Glucose (74-106) mg/dL Calcium (8.5-10.1) mg/dL Alkaline Phosphatase (45-117) U/L Albumin (3.4-5.0) g/dL MTS Gel Crossmatch See Detail Short CBC 04/29/18 04/30/18 Range/Units 18:40 02:30 WBC 6.4 (4.0-11.0) th/mm3 Hgb 7.5 L 8.8 L (11.6-15.3) gm/dL Hct 24.0 L 26.2 L (35.0-46.0) % Plt Count 292 (150-450) th/mm3 BMP 04/29/18 18:40 Sodium 142 Potassium 5.6 H Chloride 108 H Carbon Dioxide 19.8 L BUN 80 H Creatinine 10.47 H* Calcium 7.6 L Liver Function 04/29/18 Range/Units 18:40 Total Bilirubin 0.3 (0.2-1.0) mg/dL AST 17 (15-37) U/L ALT 17 (10-53) U/L Alkaline Phosphatase 130 H (45-117) U/L Albumin 2.7 L (3.4-5.0) g/dL <Reymundo Shine - 04/30/18 09:00> Physical Exam Vital signs: Vital Signs 04/29/18 15:14 04/29/18 15:40 04/29/18 19:19 Temperature 98.8 F Pulse Rate 79 79 Respiratory Rate 17 18 Blood Pressure 196/93 H 197/87 H Pulse Oximetry 98 98 97 04/29/18 21:15 04/30/18 00:05 04/30/18 00:30 Temperature 98.1 F 98.0 F Pulse Rate 82 79 82 Respiratory Rate 16 18 Blood Pressure 139/87 198/88 H Pulse Oximetry 93 L 04/30/18 04:00 04/30/18 08:00 Temperature 98.4 F 99 F Pulse Rate 80 84 Respiratory Rate 16 17 Blood Pressure 165/73 H 160/69 H Pulse Oximetry 90 L 100 Intake & Output 04/29/18 04/30/18 04/30/18 18:59 06:59 18:59 Intake Total 530 / 530 Output Total 3000 / 3000 Balance -2470 / -2470 Weight 58.06 kg 56.7 kg Intake: IV 500 / 500 NS Inj 1,000 ML @ As Directed 500 / 500 OTHER .Q0M PRN Rx#:[id number] Oral 30 / 30 Intake (Blood Product) Amt 0 / 0 Rbc As-3 Leukoreduced Unit 0 / 0 [id number] Rbc As-3 Leukoreduced Unit 0 / 0 [id number] Output: Urine 0 / 0 Hemodialysis Amount 3000 / 3000 Other: # Incontinent Bowel Movements 3 Weight On Admission 55.9 kg <Anel Blair - 04/30/18 12:11> Vital Signs 04/29/18 15:14 04/29/18 15:40 04/29/18 19:19 Temperature 98.8 F Pulse Rate 79 79 Respiratory Rate 17 18 Blood Pressure 196/93 H 197/87 H Pulse Oximetry 98 98 97 04/29/18 21:15 04/30/18 00:05 04/30/18 00:30 Temperature 98.1 F 98.0 F Pulse Rate 82 79 82 Respiratory Rate 16 18 Blood Pressure 139/87 198/88 H Pulse Oximetry 93 L 04/30/18 04:00 04/30/18 08:00 Temperature 98.4 F 99 F Pulse Rate 80 84 Respiratory Rate 16 17 Blood Pressure 165/73 H 160/69 H Pulse Oximetry 90 L 100 Intake & Output 04/29/18 04/30/18 04/30/18 18:59 06:59 18:59 Intake Total 530 / 530 Output Total 3000 / 3000 Balance -2470 / -2470 Weight 58.06 kg 56.7 kg Intake: IV 500 / 500 NS Inj 1,000 ML @ As Directed 500 / 500 OTHER .Q0M PRN Rx#:[id number] Oral 30 / 30 Intake (Blood Product) Amt 0 / 0 Rbc As-3 Leukoreduced Unit 0 / 0 [id number] Rbc As-3 Leukoreduced Unit 0 / 0 [id number] Output: Urine 0 / 0 Hemodialysis Amount 3000 / 3000 Other: # Incontinent Bowel Movements 3 Weight On Admission 55.9 kg <Reymundo Shine - 04/30/18 09:00> Narrative: LLE PT pulse diminished, foot warm. SKIN dry distal to LLE marshall, with 0.5cm shallow dry scab distal anterior marshall. L foot with 4 toes. Right BKA stump well healed without tenderness, warmth or discoloration. ECG borderline 1degree AV block noted, stable from prior (March 2018) <Anel Blair - 04/30/18 11:53> GENERAL: lying in bed, NAD SKIN: Warm and dry. No pressure ulcers present on back. HEAD: Atraumatic. Normocephalic. Edentulism present. EYES: Pupils equal and round. No scleral icterus. No injection or drainage. ENT: No nasal bleeding or discharge. Mucous membranes pink and moist. CARDIOVASCULAR: Regular rate and rhythm. No murmurs appreciated. RESPIRATORY: No accessory muscle use. Clear to auscultation. Diminished breath sounds, but equal bilaterally. GASTROINTESTINAL: Abdomen soft, non-tender, nondistended. Hepatic and splenic margins not palpable. No hernia MUSCULOSKELETAL: Right BKA present. Left leg warm and dry. Pulses appreciated. Left hallux amputated. NEUROLOGICAL: Awake and alert. No obvious cranial nerve deficits. Motor grossly within normal limits. Normal speech. PSYCHIATRIC: Appropriate mood and affect; insight and judgment normal. <Reymundo Shine - 04/30/18 10:56> Assessment and Plan - Assessment (1) Chronic lower GI bleeding Code(s): K92.2 - Gastrointestinal hemorrhage, unspecified Status: Acute (2) ESRD (end stage renal disease) on dialysis Code(s): N18.6 - End stage renal disease; Z99.2 - Dependence on renal dialysis Status: Chronic (3) Type 2 diabetes mellitus with ESRD (end-stage renal disease) Code(s): E11.22 - Type 2 diabetes mellitus with diabetic chronic kidney disease ; N18.6 - End stage renal disease Status: Acute (4) Labile hypertension Code(s): R09.89 - Other specified symptoms and signs involving the circulatory and respiratory systems Status: Acute (5) Hypothyroid Code(s): E03.9 - Hypothyroidism, unspecified Status: Chronic (6) Depression Code(s): F32.9 - Major depressive disorder, single episode, unspecified Status : Chronic (7) Phantom pain Code(s): G54.6 - Phantom limb syndrome with pain Status: Acute (8) Insomnia Code(s): G47.00 - Insomnia, unspecified Status: Acute (9) Nutrition, metabolism, and development symptoms Code(s): R63.8 - Other symptoms and signs concerning food and fluid intake Status: Acute <Anel Blair - 04/30/18 12:11> (1) Chronic lower GI bleeding Code(s): K92.2 - Gastrointestinal hemorrhage, unspecified Status: Acute Plan: 73-year-old female with past medical history of hypertension, ESRD on dialysis ( MWF), hypothyroidism, diabetes, and depression presents with acute on chronic blood loss anemia secondary to lower GI bleed. Patient admitted for blood transfusion and to be seen by GI and nephrology. Per EMR, patient was hospitalized for a GI bleed back in March. GI was consulted at that time. Patient underwent the EGD and colonoscopy on 03/14. Colonoscopy demonstrated anastomosis of the left colon with blood clots around the anastomosis, internal hemorrhoids. EGD demonstrated normal esophagus, mild gastritis in the gastric antrum where biopsy was performed, normal duodenal mucosa, hiatal hernia. Gastric antrum biopsy demonstrating antral mucosa with mild active chronic gastritis and focal intestinal metaplasia. Patient was to have colonoscopy and Hemoccult repeated in 1 year. Patient also was recommended to have repeat EGD in 3 years. Hx of left colectomy and low anterior anastomosis by Dr. De La Cruz H/H- 7.5/24.0 on admission -s/p 2 units of packed red blood cells on 04/29 -Trend H/H q6H today -Protonix 40mg IV q12h -Held Aspirin, other NSAIDs, anticoagulants -GI consulted, appreciate recs (2) ESRD (end stage renal disease) on dialysis Code(s): N18.6 - End stage renal disease; Z99.2 - Dependence on renal dialysis Status: Chronic Plan: Patient receives dialysis (MWF). [employer], Dr. Greene Nephrology consulted, appreciate recs Cr-10.47 on admission Continue dialysis as scheduled per nephrology Monitor I/O (3) Type 2 diabetes mellitus with ESRD (end-stage renal disease) Code(s): E11.22 - Type 2 diabetes mellitus with diabetic chronic kidney disease ; N18.6 - End stage renal disease Status: Acute Plan: Pt takes Lantus 10U nightly at home A1c on 03/12/18 was 5.8. Well-controlled -Will hold home lantus while NPO -Low dose sliding scale -Monitor blood sugar with accuchecks. (4) Labile hypertension Code(s): R09.89 - Other specified symptoms and signs involving the circulatory and respiratory systems Status: Acute Plan: History of hypertension and ESRD. Was taken off lisinopril and amlodipine earlier this year due to hypotension Admitted with elevated BPs up to 190 systolic -Clonidine PRN -May benefit from amlodipine if continued high BP, will await to see how BPs are after dialysis (5) Hypothyroid Code(s): E03.9 - Hypothyroidism, unspecified Status: Chronic Plan: Continue on levothyroxine 88mcg daily Will check TSH/T4 (6) Depression Code(s): F32.9 - Major depressive disorder, single episode, unspecified Status : Chronic Plan: Continue mirtazapine 50 mg p.o. daily (7) Phantom pain Code(s): G54.6 - Phantom limb syndrome with pain Status: Acute Plan: History of right BKA. Phantom pain off and on. Wakes her up from sleep Will try Tylenol 650 scheduled HS (8) Insomnia Code(s): G47.00 - Insomnia, unspecified Status: Acute Plan: Continue home ambien (9) Nutrition, metabolism, and development symptoms Code(s): R63.8 - Other symptoms and signs concerning food and fluid intake Status: Acute Plan: Diet: NPO for possible GI procedure Fluids: None Electrolytes: to be managed by nephrology GI ppx: Protonix DVT ppx: SCD, chemical ppx contraindicated Case management and PT consulted <Reymundo Shine - 04/30/18 11:55> - Assessment and Plan 73 y/o female with history of ESRD on dialysis, DM, HTN, hypothyroidism and chronic GI bleeding presents with new lower GI bleeding. Hemoglobin of 7.5 on admission. Given transfusion and GI consulted for further recs. Nephrology consulted for management of dialysis. Will trend H/H and monitor clinical status. <Reymundo Shine - 04/30/18 10:56> Discussed Condition With: RASHEL Blair <Reymundo Shine - 04/30/18 10:56> Discharge Planning: Lives at home with daughter. Receives PT/OT/nursing care, would benefit from continued care <Reymundo Shine - 04/30/18 10:56> - Attending Attestation The exam, history, and the medical decision-making described in the above note were completed with the assistance of the resident physician. I reviewed and agree with the findings presented. Of note, pt should be able to tolerate sparing acetaminophen (normal LFTs, plts, coags close to normal) despite her Hx Hep C. I attest that I had a [id number] encounter with the patient on the same day, and personally performed and documented my assessment and findings in the medical record. <Anel Blair - 04/30/18 12:11> <Reymundo Shine - Last Filed: 04/30/18 11:55> (8) Insomnia Qualifiers: Insomnia type: primary Qualified Code(s): F51.01 - Primary insomnia <Anel Blair - Last Filed: 04/30/18 12:11> (8) Insomnia Qualifiers: Qualified Code(s): F51.01 - Primary insomnia <Reymundo Shine - Last Filed: 04/30/18 11:55> (8) Insomnia Qualifiers: Insomnia type: primary Qualified Code(s): F51.01 - Primary insomnia <Anel Blair - Last Filed: 04/30/18 12:11> (8) Insomnia Qualifiers: Qualified Code(s): F51.01 - Primary insomnia
[2018-04-30 10:51] LABS: Hematocrit 26.9 % (35.0-46.0); Hemoglobin 8.8 gm/dL (11.6-15.3)
--- NOTE | 2018-04-30 11:02 | P.CONGI ---
History of Present Illness Consult date: 04/30/18 Consult reason: Pt with hx of GI bleeding. Admitted for hematochezia and anemia. Patient status post EGD and Colonoscopy 03/14/18. Recommendations appreciated. Chief complaint: Acute Blood Loss Anemia History of Present Illness: Ms. Anel Bolivar is a 73-year-old female with a history of end-stage renal disease who receives hemodialysis on Wednesdays and Fridays right BKA diabetes hypertension hypothyroidism COPD and recurring lower GI bleed. Patient presented on April 29, 2018 to the emergency room at [facility] for rectal bleeding patient states she began to have dark which progressed to bright red blood with loose stool 3 days ago patient reports last BM this morning dark and loose. Hemoglobin on admission 7.5 and hematocrit 24.0 patient was transfused with 2 units of packed cells this a.m. hemoglobin 8.8 with hematocrit 26.9 INR 1.2 .Patient denies abdominal pain nausea and vomiting. Last endoscopy was March 2018 per medical record. Patient was admitted at that time for lower GI bleeding. EGD done by Dr. Ochoa on March 14, 2018 revealed--> The esophagus appeared normal.There was mild gastritis in the gastric antrum; biopsy was performed .Normal duodenal mucosa in the bulb and second portion of the duodenum .Retroflexed views revealed a hiatal hernia. Pathology showed gastric antrum biopsy: Antral mucosa with mild active chronic gastritis and focal intestinal metaplasia Aidee stain was negative for Helicobacter. Colonoscopy done on March 14, 2018 revealed--> Anastomosis left colon. Blood /blood clots left colon around the anastomosis.Retroflexed views revealed internal hemorrhoids. Retroflexed views revealed medium internal hemorrhoids. Revealed external hemorrhoids. Patient denies NSAID use, she endorses using aspirin 81 mg p.o. daily she denies any known family history of gastrointestinal disorders or cancers. She denies smoking or drinking alcohol. Patient denies any difficulty swallowing she denies pain swallowing and denies heartburn. Denies weakness lightheadedness or dizziness. Discussed possibility of need for endoscopy during this hospitalization. Patient refusing to drink GoLYTELY prep required for colonoscopy at this time.The importance of adequate prep discussed with patient who verbalized understanding. This practice has been consulted to evaluate patient's anemia and hematochezia. <Bella Doshi - Last Filed: 04/30/18 11:17> Review of Systems Constitutional: Reports fatigue, Reports lack of energy, Denies anorexia, Denies fever(s) Cardiovascular: Denies chest pain, Denies chest pain with activity Respiratory: Denies cough, Denies shortness of breath Gastrointestinal: Reports black, tarry stools, Reports bright, red blood in stools, Reports change in bowel habits, Reports change in stools, Reports loose stools, Denies abdominal pain, Denies difficulty swallowing, Denies nausea, Denies pain with swallowing, Denies vomiting, Denies vomiting blood Neurologic: Denies dizziness <Bella Doshi - Last Filed: 04/30/18 11:17> PMFSH - History History Provided By: Patient - Medical History Medical History: Medical History (Last Reviewed 04/30/18 @ 08:29 by Vikki Razo) Cataracts, bilateral Depression Diabetes mellitus Dialysis patient Foot abscess GERD (gastroesophageal reflux disease) GI bleeding HTN (hypertension) Hepatitis C Hypothyroid Renal failure - Surgical History Surgical History: Surgical History (Last Reviewed 04/30/18 @ 08:30 by Vikki Razo) Amputation of leg History of colon resection - Tobacco History Second Hand Smoke Exposure: No Tobacco Use In Past 30 Days: Yes Smoking Status: Current some day smoker Tobacco Type: Cigarettes - Alcohol History How Often Do You Have a Drink Containing Alcohol: Never - Substance Use History Substance History: No History of Abuse - Travel History Recent Travel in the [place] Within the Last 8 Weeks: No Recent Travel Out of the Country Within the Last 8 Weeks: No - Immunization History Tetanus Immunization: Unsure Hx Influenza Vaccine This Season: No <Bella Doshi - Last Filed: 04/30/18 11:17> - Medical History Medical History: Medical History (Last Reviewed 04/30/18 @ 08:29 by Vikki Razo) Cataracts, bilateral Depression Diabetes mellitus Dialysis patient Foot abscess GERD (gastroesophageal reflux disease) GI bleeding HTN (hypertension) Hepatitis C Hypothyroid Renal failure - Surgical History Surgical History: Surgical History (Last Reviewed 04/30/18 @ 08:30 by Vikki Razo) Amputation of leg History of colon resection <Monster Quiles - Last Filed: 04/30/18 21:57> Medications and Allergies Active Medications: Active Medications Acetaminophen (Tylenol) 650 mg PO UNSCH X1 PRN PRN Reason: SEE LABEL COMMENTS Acetaminophen (Tylenol) 650 mg PO HS [facility] Albuterol (Ventolin Hfa Inh) 2 puff INH Q4H PRN PRN Reason: SHORTNESS OF BREATH Clonidine HCl (Catapres) 0.1 mg PO UNSCH X1 PRN PRN Reason: SEE LABEL COMMENTS Last Admin: 04/30/18 01:13 Dose: 0.1 mg Dextrose (D50w Vial) 50 ml IV.PUSH UNSCH PRN PRN Reason: PER HYPOGLYCEMIA PROTOCOL Diphenhydramine HCl (Benadryl) 25 mg PO UNSCH PRN PRN Reason: SEE LABEL COMMENTS Epoetin Néstor (Epogen Inj) 10,000 unit IV.PUSH UNSCH PRN PRN Reason: SEE LABEL COMMENTS Last Admin: 04/29/18 21:08 Dose: 10,000 unit Gelatin (Gelfoam 12 Mm/7 Mm Topical) 1 foam TOPICAL UNSCH PRN PRN Reason: help stop bleeding from site Last Admin: 04/29/18 21:08 Dose: 1 foam Gentamicin Sulfate (Gentamicin Inj) 20 mg OTHER WITH DIALYSIS PRN PRN Reason: Dwell Gentamycin Lock Glucagon (Glucagon Inj) 1 mg OTHER PRN PRN PRN Reason: for Hypoglycemia Protocol Heparin Sodium (Porcine) (Heparin Inj) 8,000 units OTHER WITH DIALYSIS PRN PRN Reason: for machine prime Heparin Sodium (Porcine) (Heparin Inj) 0 units OTHER WITH DIALYSIS PRN PRN Reason: Dwell Heparin to Fill Catheter Sodium Chloride (Ns Inj) 250 mls @ 15 mls/hr IV.SIG ONCE [facility] Stop: 04/30/18 12:39 Last Admin: 04/29/18 21:55 Dose: Not Given Albumin Human (Flexbumin 25% Inj) 100 mls @ 60 mls/hr IV.SIG WITH DIALYSIS PRN PRN Reason: hypotension / volume replace Sodium Chloride (Ns Inj) 1,000 mls @ 0 mls/hr OTHER .Q0M PRN PRN Reason: for prime and rinse back Last Infusion: 04/30/18 00:00 Dose: Infused Sodium Chloride (Ns Inj) 1,000 mls @ 200 mls/hr OTHER .Q5H PRN PRN Reason: for dialyzer flush PRN Sodium Chloride (Ns Inj) 1,000 mls @ 0 mls/hr IV.CONT .Q0M PRN PRN Reason: hypotension / volume replace Insulin Aspart (Novolog Insulin Correctional Sugar Inj) 0 unit SQ ACHS AND 3AM [facility]; Protocol Last Admin: 04/30/18 07:47 Dose: Not Given Levothyroxine Sodium (Synthroid) 88 mcg PO DAILY@0600 [facility] Last Admin: 04/30/18 05:34 Dose: 88 mcg Mannitol (Mannitol Inj) 12.5 gm IV.PUSH UNSCH PRN PRN Reason: hypotension / volume replace Mirtazapine (Remeron) 15 mg PO DAILY [facility] Last Admin: 04/30/18 08:09 Dose: 15 mg Nitroglycerin (Nitrostat Sl) 0.4 mg SL Q5M PRN PRN Reason: CHEST PAIN Non-Formulary Medication (Cholecalciferol (Vitamin D3) [Cholecalciferol ( Vitamin D3)]) 50,000 unit PO QWEEK [facility] Ondansetron HCl (Zofran Inj) 4 mg IV.PUSH UNSCH X1 PRN PRN Reason: NAUSEA OR VOMITING Pantoprazole Sodium (Protonix Inj) 40 mg IV.PUSH Q12H [facility] Last Admin: 04/30/18 04:06 Dose: Not Given Patient Own Med- Ferric Citrate ( Ferric Citrate) 420mg 0 each PO TID [facility] Patient Own Me- Meegestrol (Megace Es) 400mg 0 each PO DAILY [facility] Sodium Chloride (Ns Flush) 2 ml IV.FLUSH PRN PRN PRN Reason: FLUSH AFTER USING IV ACCESS Sodium Chloride (Ns Flush) 5 ml IV.FLUSH UNSCH PRN PRN Reason: flush each lumen during HD Sodium Chloride (Ns Flush) 2 ml IV.FLUSH BID [facility] Last Admin: 04/30/18 08:10 Dose: 2 ml Sodium Chloride (Ns Flush) 2 ml IV.FLUSH PRN PRN PRN Reason: FLUSH AFTER USING IV ACCESS Vitamin B Complex/Vit C/Folic Acid (Nephrocaps) 1 tab PO DAILY [facility] Last Admin: 04/30/18 08:09 Dose: 1 tab Zolpidem Tartrate (Ambien) 5 mg PO HS PRN PRN Reason: insomnia <Doshi,Bella - Last Filed: 04/30/18 11:17> Active Medications: Active Medications Acetaminophen (Tylenol) 650 mg PO UNSCH X1 PRN PRN Reason: SEE LABEL COMMENTS Acetaminophen (Tylenol) 650 mg PO HS [facility] Last Admin: 04/30/18 20:31 Dose: 650 mg Albuterol (Ventolin Hfa Inh) 2 puff INH Q4H PRN PRN Reason: SHORTNESS OF BREATH Clonidine HCl (Catapres) 0.1 mg PO UNSCH X1 PRN PRN Reason: SEE LABEL COMMENTS Last Admin: 04/30/18 11:52 Dose: 0.1 mg Dextrose (D50w Vial) 50 ml IV.PUSH UNSCH PRN PRN Reason: PER HYPOGLYCEMIA PROTOCOL Diphenhydramine HCl (Benadryl) 25 mg PO UNSCH PRN PRN Reason: SEE LABEL COMMENTS Epoetin Néstor (Epogen Inj) 10,000 unit IV.PUSH UNSCH PRN PRN Reason: SEE LABEL COMMENTS Last Admin: 04/30/18 11:53 Dose: 10,000 unit Ergocalciferol (Vitamin D2) 50,000 unit PO Mo@0900 [facility] Gelatin (Gelfoam 12 Mm/7 Mm Topical) 1 foam TOPICAL UNSCH PRN PRN Reason: help stop bleeding from site Last Admin: 04/30/18 11:53 Dose: 1 foam Gentamicin Sulfate (Gentamicin Inj) 20 mg OTHER WITH DIALYSIS PRN PRN Reason: Dwell Gentamycin Lock Glucagon (Glucagon Inj) 1 mg OTHER PRN PRN PRN Reason: for Hypoglycemia Protocol Heparin Sodium (Porcine) (Heparin Inj) 8,000 units OTHER WITH DIALYSIS PRN PRN Reason: for machine prime Heparin Sodium (Porcine) (Heparin Inj) 0 units OTHER WITH DIALYSIS PRN PRN Reason: Dwell Heparin to Fill Catheter Albumin Human (Flexbumin 25% Inj) 100 mls @ 60 mls/hr IV.SIG WITH DIALYSIS PRN PRN Reason: hypotension / volume replace Sodium Chloride (Ns Inj) 1,000 mls @ 0 mls/hr OTHER .Q0M PRN PRN Reason: for prime and rinse back Last Infusion: 04/30/18 00:00 Dose: Infused Sodium Chloride (Ns Inj) 1,000 mls @ 200 mls/hr OTHER .Q5H PRN PRN Reason: for dialyzer flush PRN Sodium Chloride (Ns Inj) 1,000 mls @ 0 mls/hr IV.CONT .Q0M PRN PRN Reason: hypotension / volume replace Insulin Aspart (Novolog Insulin Correctional Sugar Inj) 0 unit SQ ACHS AND 3AM [facility]; Protocol Last Admin: 04/30/18 18:17 Dose: Not Given Levothyroxine Sodium (Synthroid) 88 mcg PO DAILY@0600 [facility] Last Admin: 04/30/18 05:34 Dose: 88 mcg Mannitol (Mannitol Inj) 12.5 gm IV.PUSH UNSCH PRN PRN Reason: hypotension / volume replace Mirtazapine (Remeron) 15 mg PO DAILY [facility] Last Admin: 04/30/18 08:09 Dose: 15 mg Nitroglycerin (Nitrostat Sl) 0.4 mg SL Q5M PRN PRN Reason: CHEST PAIN Ondansetron HCl (Zofran Inj) 4 mg IV.PUSH UNSCH X1 PRN PRN Reason: NAUSEA OR VOMITING Pantoprazole Sodium (Protonix Inj) 40 mg IV.PUSH Q12H [facility] Last Admin: 04/30/18 17:09 Dose: 40 mg Patient Own Med- Ferric Citrate ( Ferric Citrate) 420mg 0 each PO TID [facility] Patient Own Me- Meegestrol (Megace Es) 400mg 0 each PO DAILY [facility] Sodium Chloride (Ns Flush) 2 ml IV.FLUSH PRN PRN PRN Reason: FLUSH AFTER USING IV ACCESS Sodium Chloride (Ns Flush) 5 ml IV.FLUSH UNSCH PRN PRN Reason: flush each lumen during HD Sodium Chloride (Ns Flush) 2 ml IV.FLUSH BID [facility] Last Admin: 04/30/18 20:32 Dose: 2 ml Sodium Chloride (Ns Flush) 2 ml IV.FLUSH PRN PRN PRN Reason: FLUSH AFTER USING IV ACCESS Vitamin B Complex/Vit C/Folic Acid (Nephrocaps) 1 tab PO DAILY [facility] Last Admin: 04/30/18 08:09 Dose: 1 tab Zolpidem Tartrate (Ambien) 5 mg PO HS PRN PRN Reason: insomnia Last Admin: 04/30/18 20:30 Dose: 5 mg <Monster Quiles E - Last Filed: 04/30/18 21:57> Allergies Allergy/AdvReac Type Severity Reaction Status Date / Time No Known Allergies Allergy Verified 04/29/18 19:18 Home Medications Medication Instructions Recorded Confirmed Type B complex-vitamin C-folic acid 1 tab PO DAILY 04/22/18 04/29/18 History [Nephro-Jammie] Renvela 1 tab PO TID 04/22/18 04/29/18 History albuterol sulfate [Ventolin HFA] 2 puff INHALATION Q4-6H PRN 04/22/18 04/29/18 History aspirin 81 mg PO DAILY 04/22/18 04/29/18 History cholecalciferol (vitamin D3) 50,000 unit PO QWEEK 04/22/18 04/29/18 History ferric citrate 420 mg PO TID 04/22/18 04/29/18 History insulin glargine [Lantus U-100 10 unit SUB-Q DAILY 04/22/18 04/29/18 History Insulin] megestrol [Megace ES] 400 mg PO DAILY 04/22/18 04/29/18 History metoclopramide HCl [Reglan] 5 mg PO BID 04/22/18 04/29/18 History mirtazapine [Remeron] 15 mg PO DAILY 04/22/18 04/29/18 History zolpidem 1 tab PO HS 04/22/18 04/29/18 History Exam Vital signs: Vital Signs 04/29/18 15:14 04/29/18 15:40 04/29/18 19:19 Temperature 98.8 F Pulse Rate 79 79 Respiratory Rate 17 18 Blood Pressure 196/93 H 197/87 H Pulse Oximetry 98 98 97 04/29/18 21:15 04/30/18 00:05 04/30/18 00:30 Temperature 98.1 F 98.0 F Pulse Rate 82 79 82 Respiratory Rate 16 18 Blood Pressure 139/87 198/88 H Pulse Oximetry 93 L 04/30/18 04:00 04/30/18 08:00 Temperature 98.4 F 99 F Pulse Rate 80 84 Respiratory Rate 16 17 Blood Pressure 165/73 H 160/69 H Pulse Oximetry 90 L 100 Intake & Output 04/29/18 04/30/18 04/30/18 18:59 06:59 18:59 Intake Total 530 / 530 Output Total 3000 / 3000 Balance -2470 / -2470 Weight 58.06 kg 56.7 kg Intake: IV 500 / 500 NS Inj 1,000 ML @ As Directed 500 / 500 OTHER .Q0M PRN Rx#:[id number] Oral 30 / 30 Intake (Blood Product) Amt 0 / 0 Rbc As-3 Leukoreduced Unit 0 / 0 [id number] Rbc As-3 Leukoreduced Unit 0 / 0 [id number] Output: Urine 0 / 0 Hemodialysis Amount 3000 / 3000 Other: # Incontinent Bowel Movements 3 Weight On Admission 55.9 kg - Constitutional no acute distress - Routine HEENT Exam Head: Present: normocephalic Eye: Absent: conjunctival icterus - Routine Neck Exam Present: supple, full ROM - Routine Chest/Breast/Axilla Exam Chest wall: Absent: tenderness - Routine Respiratory Exam Present: CTA bilaterally. Absent: accessory muscle use, respiratory distress - Routine Cardiovascular Exam Present: RRR - Routine Abdominal Exam Present: soft, normoactive bowel sounds. Absent: tenderness, distended, guarding, firm - Routine Extremities Exam Absent: clubbing, edema Comments: Right BKA - Routine Skin Exam Present: dry, warm - Routine Neurological Exam Present: alert, oriented X3 <Doshi,Bella - Last Filed: 04/30/18 11:17> Vital signs: Vital Signs 04/30/18 00:05 04/30/18 00:30 04/30/18 04:00 Temperature 98.0 F 98.4 F Pulse Rate 79 82 80 Respiratory Rate 18 16 Blood Pressure 198/88 H 165/73 H Pulse Oximetry 93 L 90 L 04/30/18 08:00 04/30/18 12:00 04/30/18 16:00 Temperature 99 F Pulse Rate 80 78 79 Respiratory Rate 17 Blood Pressure 160/69 H Pulse Oximetry 100 04/30/18 16:24 04/30/18 20:00 Temperature 98.8 F Pulse Rate 76 Respiratory Rate 20 Blood Pressure 167/72 H Pulse Oximetry 95 96 Intake & Output 04/30/18 04/30/18 05/01/18 06:59 18:59 06:59 Intake Total 530 / 530 Output Total 3000 / 3000 Balance -2470 / -2470 Weight 56.7 kg Intake: IV 500 / 500 NS Inj 1,000 ML @ As Directed 500 / 500 OTHER .Q0M PRN Rx#:[id number] Oral 30 / 30 Intake (Blood Product) Amt 0 / 0 Rbc As-3 Leukoreduced Unit 0 / 0 [id number] Rbc As-3 Leukoreduced Unit 0 / 0 [id number] Output: Urine 0 / 0 Hemodialysis Amount 3000 / 3000 Other: # Incontinent Bowel Movements 3 Weight On Admission 55.9 kg <Kb,Monster E - Last Filed: 04/30/18 21:57> Results - Labs CBC & Chem 7: 04/30/18 10:30 04/29/18 18:40 Labs: Laboratory Results - last 24 hr 04/29/18 04/29/18 04/29/18 18:40 18:40 18:40 WBC 6.4 RBC 2.71 L Hgb 7.5 L Hct 24.0 L MCV 88.7 MCH 27.6 MCHC 31.1 L RDW 19.2 H Plt Count 292 MPV 10.2 Neut % (Auto) 63.6 Lymph % (Auto) 21.8 [place] % (Auto) 7.9 Eos % (Auto) 5.7 H Baso % (Auto) 1.0 Neut # (Auto) 4.1 Lymph # (Auto) 1.4 [place] # (Auto) 0.5 Eos # (Auto) 0.4 Baso # (Auto) 0.1 WBC Differential . Differential Comment Auto diff final PT 11.8 H INR 1.2 APTT 24.0 L Sodium 142 Potassium 5.6 H Chloride 108 H Carbon Dioxide 19.8 L Anion Gap 14 BUN 80 H Creatinine 10.47 H* Estimated GFR 4 L POC Glucose Random Glucose 112 H Calcium 7.6 L Total Bilirubin 0.3 AST 17 ALT 17 Alkaline Phosphatase 130 H Total Protein 6.6 Albumin 2.7 L Blood Type Antibody Screen MTS Gel Crossmatch 04/29/18 04/29/18 04/30/18 18:40 18:40 02:30 WBC RBC Hgb 8.8 L Hct 26.2 L MCV MCH MCHC RDW Plt Count MPV Neut % (Auto) Lymph % (Auto) [place] % (Auto) Eos % (Auto) Baso % (Auto) Neut # (Auto) Lymph # (Auto) [place] # (Auto) Eos # (Auto) Baso # (Auto) WBC Differential Differential Comment PT INR APTT Sodium Potassium Chloride Carbon Dioxide Anion Gap BUN Creatinine Estimated GFR POC Glucose Random Glucose Calcium Total Bilirubin AST ALT Alkaline Phosphatase Total Protein Albumin Blood Type O Positive Antibody Screen Negative MTS Gel Crossmatch See Detail 04/30/18 04:41 WBC RBC Hgb Hct MCV MCH MCHC RDW Plt Count MPV Neut % (Auto) Lymph % (Auto) [place] % (Auto) Eos % (Auto) Baso % (Auto) Neut # (Auto) Lymph # (Auto) [place] # (Auto) Eos # (Auto) Baso # (Auto) WBC Differential Differential Comment PT INR APTT Sodium Potassium Chloride Carbon Dioxide Anion Gap BUN Creatinine Estimated GFR POC Glucose 92 Random Glucose Calcium Total Bilirubin AST ALT Alkaline Phosphatase Total Protein Albumin Blood Type Antibody Screen MTS Gel Crossmatch <Bella Doshi - Last Filed: 04/30/18 11:17> - Labs CBC & Chem 7: 04/30/18 17:35 04/30/18 17:35 Labs: Laboratory Results - last 24 hr 04/29/18 04/30/18 04/30/18 18:40 02:30 04:41 Hgb 8.8 L Hct 26.2 L Sodium Potassium Chloride Carbon Dioxide Anion Gap BUN Creatinine Estimated GFR POC Glucose 92 Random Glucose Calcium TSH Free T4 MTS Gel Crossmatch See Detail 04/30/18 04/30/18 04/30/18 10:30 11:58 17:35 Hgb 8.8 L Hct 26.9 L Sodium 144 Potassium 3.4 L D Chloride 103 Carbon Dioxide 32.7 H D Anion Gap 8 BUN 16 Creatinine 3.30 H Estimated GFR 17 L POC Glucose 85 Random Glucose 65 L Calcium 7.7 L TSH 1.340 Free T4 1.46 MTS Gel Crossmatch 04/30/18 04/30/18 17:35 17:35 Hgb 9.3 L Hct 28.1 L Sodium Potassium Chloride Carbon Dioxide Anion Gap BUN Creatinine Estimated GFR POC Glucose Random Glucose Calcium TSH Cancelled Free T4 Cancelled MTS Gel Crossmatch - Imaging Impressions GI Bleed Scan Nuclear Medicine 04/30/18 00:00 CONCLUSION: 1. No episodes of active GI bleeding observed. 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 Hematochezia: Patient presented on April 29, 2018 to the emergency room at [facility] for rectal bleeding patient states she began to have dark which progressed to bright red blood with loose stool 3 days ago patient reports last BM this morning dark and loose. Anemia :Hemoglobin on admission 7.5 and hematocrit 24.0 patient was transfused with 2 units of packed cells this a.m. hemoglobin 8.8 with hematocrit 26.9 INR 1.2 .Patient denies abdominal pain nausea and vomiting. Last endoscopy was March 2018 per medical record. Patient was admitted at that time for lower GI bleeding. EGD done by Dr. Ochoa on March 14, 2018 revealed--> The esophagus appeared normal.There was mild gastritis in the gastric antrum; biopsy was performed .Normal duodenal mucosa in the bulb and second portion of the duodenum .Retroflexed views revealed a hiatal hernia. Pathology showed gastric antrum biopsy: Antral mucosa with mild active chronic gastritis and focal intestinal metaplasia Aidee stain was negative for Helicobacter. Colonoscopy done on March 14, 2018 revealed--> Anastomosis left colon. Blood /blood clots left colon around the anastomosis.Retroflexed views revealed internal hemorrhoids. Retroflexed views revealed medium internal hemorrhoids. Revealed external hemorrhoids. Patient denies NSAID use, she endorses using aspirin 81 mg p.o. daily she denies any known family history of gastrointestinal disorders or cancers. She denies smoking or drinking alcohol. Patient denies any difficulty swallowing she denies pain swallowing and denies heartburn. Denies weakness lightheadedness or dizziness. Discussed possibility of need for endoscopy during this hospitalization. Patient refusing to drink GoLYTELY prep for colonoscopy at this time.The importance of adequate prep discussed with patient who verbalized understanding . This practice has been consulted to evaluate patient's anemia and hematochezia. Plan: -NPO -Monitor H/H -Will order bleeding scan at this time as patient is refusing to drink prep needed for Colonoscopy -Continue PPI -Supportive care -Further recommendations to follow This patient has been seen by myself and Dr. Quiles and this note has been written on his behalf. 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
[2018-04-30] MEDS: Gelatin 12 MM/7 MM Topical Foam TOPICAL PRN (11:53)
[2018-04-30] MEDS ORDERED: Heparin Central Flush 100 UNIT/ML 5 ML Vial IV.FLUSH ONE (13:02)
--- NOTE | 2018-04-30 15:54 | NM ---
EXAM DATE: 04/30/2018 3:48 PM EDT AGE/SEX: 73 years / Female INDICATIONS: Rectal bleeding. CLINICAL DATA: This is the patient's initial encounter. Patient reports that signs and symptoms have been present for 3 days and indicates a pain score of 5/10. MEDICAL/SURGICAL HISTORY: Diabetes mellitus type II. Hepatitis C. Renal disease, end stage. C olon resection. Right amputation below the knee. [place]PAR[place] [facility] [place]. . TECHNIQUE: Following the modified in vitro labeling of autologous red cells, dynamic continuous image s were acquired for two hours. ?? DOSE: 20.2 mCi Tc 99m Ultratag Labeled Red Blood Cells IV IMAGING TIME: 2 hr FINDINGS: Biodistribution: There is a very good labeling of red cells without significant uptake in the gastri c wall. There is good delineation of the blood pool of the spleen and abdominal vessels. Bleeding: No episodes of active GI bleeding are observed during two hours of continuous observation . CONCLUSION: 1. No episodes of active GI bleeding observed. Electronically signed by: Willie Hayes MD 04/30/2018 3:52 PM EDT
[2018-04-30 17:48] LABS: Hematocrit 28.1 % (35.0-46.0); Hemoglobin 9.3 gm/dL (11.6-15.3)
[2018-04-30 18:26] LABS: Calcium 7.7 mg/dL (8.5-10.1); Carbon Dioxide 32.7 meq/L (21.0-32.0); Free T4 (Free Thyroxine) 1.46 ng/dL (0.76-1.46); Potassium 3.4 meq/L (3.5-5.1); Thyroid Stimulating Hormone 1.34 uIU/mL (0.358-3.740)
[2018-04-30] MEDS: Acetaminophen 325 MG Tablet PO SCH ×2 (20:31→21:00)
--- NOTE | 2018-04-30 21:14 | ECG ---
Date Performed: 04/29/2018 Time Performed: 20:05:54 PTAGE: 73 years EKG: Sinus rhythm WITH FIRST DEGREE AV BLOCK INDETERMINATE AXIS POSSIBLE RIGHT VENTRICULAR CONDUCTION DELAY ANTEROSEPT AL MYOCARDIAL INFARCTION MODERATE T-WAVE ABNORMALITY ABNORMAL ECG PREVIOUS TRACING : 03/12/2018 23.20 Since the previous tracing, no significant change noted DOCTOR: Francesco Abraham Interpretating Date/Time 04/30/2018 21:13:43
--- NOTE | 2018-04-30 22:22 | P.CONNP ---
History of Present Illness Service: Nephrology Reason for Consult: ESRD Primary Care Provider: Charu Akbar MD, R3 Family Provider: Charu Akbar MD, R3 History of Present Illness: This is a 73 year old lady with history of ESRD, history of COPD and GI bleeding in the past. Patient has had right BKA. She has had partial colectomy. Had undergone EGD and colonoscopy in March of this year. Presented with rectal bleeding. Refused admission last week when I noticed her Hemoglobin was very low. I had arranged for blood transfusion which she says she received. I was notified patient's presence in the ER yesterday. She had missed dialysis on Saturday. Therefore patient was emergently dialyzed yesterday so that blood transfusion can be carefully carried out. I saw her this morning at dialysis. Review of Systems Constitutional: Reports anorexia, Reports weight loss Cardiovascular: Denies chest pain, Denies rapid, pounding, or irregular heartbeat Gastrointestinal: Reports bright, red blood in stools, Denies abdominal pain, Denies black, tarry stools, Denies coffee ground vomit, Denies heartburn, Denies nausea, Denies pain with swallowing, Denies vomiting Genitourinary: Denies abnormal vaginal bleeding Psychiatric: Denies confusion PMFSH - History History Provided By: Patient - Medical History Medical History: Medical History (Last Reviewed 04/30/18 @ 08:29 by Vikki Razo) Cataracts, bilateral Depression Diabetes mellitus Dialysis patient Foot abscess GERD (gastroesophageal reflux disease) GI bleeding HTN (hypertension) Hepatitis C Hypothyroid Renal failure - Surgical History Surgical History: Surgical History (Last Reviewed 04/30/18 @ 08:30 by Vikki Razo) Amputation of leg History of colon resection - Tobacco History Second Hand Smoke Exposure: No Tobacco Use In Past 30 Days: Yes Smoking Status: Current some day smoker Tobacco Type: Cigarettes - Alcohol History How Often Do You Have a Drink Containing Alcohol: Never - Substance Use History Substance History: No History of Abuse - Travel History Recent Travel in the [place] Within the Last 8 Weeks: No Recent Travel Out of the Country Within the Last 8 Weeks: No - Immunization History Tetanus Immunization: Unsure Hx Influenza Vaccine This Season: No Medications and Allergies Active Medications: Active Medications Acetaminophen (Tylenol) 650 mg PO UNSCH X1 PRN PRN Reason: SEE LABEL COMMENTS Acetaminophen (Tylenol) 650 mg PO HS [facility] Last Admin: 04/30/18 20:31 Dose: 650 mg Albuterol (Ventolin Hfa Inh) 2 puff INH Q4H PRN PRN Reason: SHORTNESS OF BREATH Clonidine HCl (Catapres) 0.1 mg PO UNSCH X1 PRN PRN Reason: SEE LABEL COMMENTS Last Admin: 04/30/18 11:52 Dose: 0.1 mg Dextrose (D50w Vial) 50 ml IV.PUSH UNSCH PRN PRN Reason: PER HYPOGLYCEMIA PROTOCOL Diphenhydramine HCl (Benadryl) 25 mg PO UNSCH PRN PRN Reason: SEE LABEL COMMENTS Epoetin Néstor (Epogen Inj) 10,000 unit IV.PUSH UNSCH PRN PRN Reason: SEE LABEL COMMENTS Last Admin: 04/30/18 11:53 Dose: 10,000 unit Ergocalciferol (Vitamin D2) 50,000 unit PO Mo@0900 [facility] Gelatin (Gelfoam 12 Mm/7 Mm Topical) 1 foam TOPICAL UNSCH PRN PRN Reason: help stop bleeding from site Last Admin: 04/30/18 11:53 Dose: 1 foam Gentamicin Sulfate (Gentamicin Inj) 20 mg OTHER WITH DIALYSIS PRN PRN Reason: Dwell Gentamycin Lock Glucagon (Glucagon Inj) 1 mg OTHER PRN PRN PRN Reason: for Hypoglycemia Protocol Heparin Sodium (Porcine) (Heparin Inj) 8,000 units OTHER WITH DIALYSIS PRN PRN Reason: for machine prime Heparin Sodium (Porcine) (Heparin Inj) 0 units OTHER WITH DIALYSIS PRN PRN Reason: Dwell Heparin to Fill Catheter Albumin Human (Flexbumin 25% Inj) 100 mls @ 60 mls/hr IV.SIG WITH DIALYSIS PRN PRN Reason: hypotension / volume replace Sodium Chloride (Ns Inj) 1,000 mls @ 0 mls/hr OTHER .Q0M PRN PRN Reason: for prime and rinse back Last Infusion: 04/30/18 00:00 Dose: Infused Sodium Chloride (Ns Inj) 1,000 mls @ 200 mls/hr OTHER .Q5H PRN PRN Reason: for dialyzer flush PRN Sodium Chloride (Ns Inj) 1,000 mls @ 0 mls/hr IV.CONT .Q0M PRN PRN Reason: hypotension / volume replace Insulin Aspart (Novolog Insulin Correctional Sugar Inj) 0 unit SQ ACHS AND 3AM [facility]; Protocol Last Admin: 04/30/18 18:17 Dose: Not Given Levothyroxine Sodium (Synthroid) 88 mcg PO DAILY@0600 [facility] Last Admin: 04/30/18 05:34 Dose: 88 mcg Mannitol (Mannitol Inj) 12.5 gm IV.PUSH UNSCH PRN PRN Reason: hypotension / volume replace Mirtazapine (Remeron) 15 mg PO DAILY [facility] Last Admin: 04/30/18 08:09 Dose: 15 mg Nitroglycerin (Nitrostat Sl) 0.4 mg SL Q5M PRN PRN Reason: CHEST PAIN Ondansetron HCl (Zofran Inj) 4 mg IV.PUSH UNSCH X1 PRN PRN Reason: NAUSEA OR VOMITING Pantoprazole Sodium (Protonix Inj) 40 mg IV.PUSH Q12H [facility] Last Admin: 04/30/18 17:09 Dose: 40 mg Patient Own Med- Ferric Citrate ( Ferric Citrate) 420mg 0 each PO TID [facility] Patient Own Me- Meegestrol (Megace Es) 400mg 0 each PO DAILY [facility] Sodium Chloride (Ns Flush) 2 ml IV.FLUSH PRN PRN PRN Reason: FLUSH AFTER USING IV ACCESS Sodium Chloride (Ns Flush) 5 ml IV.FLUSH UNSCH PRN PRN Reason: flush each lumen during HD Sodium Chloride (Ns Flush) 2 ml IV.FLUSH BID [facility] Last Admin: 04/30/18 20:32 Dose: 2 ml Sodium Chloride (Ns Flush) 2 ml IV.FLUSH PRN PRN PRN Reason: FLUSH AFTER USING IV ACCESS Vitamin B Complex/Vit C/Folic Acid (Nephrocaps) 1 tab PO DAILY [facility] Last Admin: 04/30/18 08:09 Dose: 1 tab Zolpidem Tartrate (Ambien) 5 mg PO HS PRN PRN Reason: insomnia Last Admin: 04/30/18 20:30 Dose: 5 mg Allergies Allergy/AdvReac Type Severity Reaction Status Date / Time No Known Allergies Allergy Verified 04/29/18 19:18 Home Medications Medication Instructions Recorded Confirmed Type B complex-vitamin C-folic acid 1 tab PO DAILY 04/22/18 04/29/18 History [Nephro-Jammie] Renvela 1 tab PO TID 04/22/18 04/29/18 History albuterol sulfate [Ventolin HFA] 2 puff INHALATION Q4-6H PRN 04/22/18 04/29/18 History aspirin 81 mg PO DAILY 04/22/18 04/29/18 History cholecalciferol (vitamin D3) 50,000 unit PO QWEEK 04/22/18 04/29/18 History ferric citrate 420 mg PO TID 04/22/18 04/29/18 History insulin glargine [Lantus U-100 10 unit SUB-Q DAILY 04/22/18 04/29/18 History Insulin] megestrol [Megace ES] 400 mg PO DAILY 04/22/18 04/29/18 History metoclopramide HCl [Reglan] 5 mg PO BID 04/22/18 04/29/18 History mirtazapine [Remeron] 15 mg PO DAILY 04/22/18 04/29/18 History zolpidem 1 tab PO HS 04/22/18 04/29/18 History Exam Vital signs: Vital Signs 04/30/18 00:05 04/30/18 00:30 04/30/18 04:00 Temperature 98.0 F 98.4 F Pulse Rate 79 82 80 Respiratory Rate 18 16 Blood Pressure 198/88 H 165/73 H Pulse Oximetry 93 L 90 L 04/30/18 08:00 04/30/18 12:00 04/30/18 16:00 Temperature 99 F Pulse Rate 80 78 79 Respiratory Rate 17 Blood Pressure 160/69 H Pulse Oximetry 100 04/30/18 16:24 04/30/18 20:00 Temperature 98.8 F Pulse Rate 76 Respiratory Rate 20 Blood Pressure 167/72 H Pulse Oximetry 95 96 Intake & Output 04/30/18 04/30/18 05/01/18 06:59 18:59 06:59 Intake Total 530 / 530 Output Total 3000 / 3000 Balance -2470 / -2470 Weight 56.7 kg Intake: IV 500 / 500 NS Inj 1,000 ML @ As Directed 500 / 500 OTHER .Q0M PRN Rx#:[id number] Oral 30 / 30 Intake (Blood Product) Amt 0 / 0 Rbc As-3 Leukoreduced Unit 0 / 0 [id number] Rbc As-3 Leukoreduced Unit 0 / 0 [id number] Output: Urine 0 / 0 Hemodialysis Amount 3000 / 3000 Other: # Incontinent Bowel Movements 3 Weight On Admission 55.9 kg - Constitutional no acute distress, chronically ill appearing - Routine HEENT Exam Head: Present: normocephalic, atraumatic Eye: Present: EOMI, PERRL ENT: Present: mucous membranes moist - Routine Neck Exam Present: supple. Absent: JVD, thyromegaly - Routine Respiratory Exam Present: CTA bilaterally. Absent: accessory muscle use - Routine Cardiovascular Exam Present: RRR, S1, S2 - Routine Extremities Exam Present: AV fistula Comments: s/p right BKA - Routine Neurological Exam Present: alert, oriented X3 Results - Lab Results 04/30/18 17:35 04/30/18 17:35 Most recent lab results Calcium 7.7 mg/dL (8.5-10.1) L 04/30/18 17:35 Assessment and Plan - Assessment (1) ESRD (end stage renal disease) on dialysis Code(s): N18.6 - End stage renal disease; Z99.2 - Dependence on renal dialysis Status: Chronic Plan: She was dialyzed yesterday as she had missed dialysis on Saturday. Dialysis performed again this morning. Monitor fluid and electrolytes. Avoid Gadolinium. Avoid IV, BP in the access arm. 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 Hemoglobin has improved. Patient is refusing bowel prep for colonoscopy. GI has seen the patient. Obtain iron studies. Epogen with dialysis. (3) HTN (hypertension) Code(s): I10 - Essential (primary) hypertension Status: Chronic Plan: BP is high. Restart home medications. Monitor. (4) Hypothyroid Code(s): E03.9 - Hypothyroidism, unspecified Status: Chronic Plan: continue replacement. (5) Protein-calorie malnutrition, severe Code(s): E43 - Unspecified severe protein-calorie malnutrition Status: Acute - Plan Needs high protein diet, with protein supplement. - Attending Attestation Thanks for the consult.
[2018-04-30 23:14] LABS: Hematocrit 26.4 % (35.0-46.0); Hemoglobin 8.5 gm/dL (11.6-15.3)
[2018-05-01 00:48] VITALS: RESP 18
[2018-05-01] MEDS: Acetaminophen 325 MG Tablet PO SCH (03:32)
[2018-05-01] MEDS: Insulin NovoLOG Aspart Correctional Sugar Inj SQ SCH ×3 (03:40→13:51)
[2018-05-01] MEDS: Levothyroxine 88 MCG Tablet PO SCH (06:13)
[2018-05-01 07:01] LABS: Hematocrit 25.9 % (35.0-46.0); Hemoglobin 8.5 gm/dL (11.6-15.3); Mean Corpuscular HGB Conc 32.8 % (32.0-36.0); Mean Corpuscular Hemoglobin 27.4 pg (27.0-34.0); Mean Corpuscular Volume 83.3 fL (80.0-100.0); Mean Platelet Volume 9.3 fL (7.0-11.0); Platelet Count 199 th/mm3 (150-450); Red Cell Distribution Width 19.9 % (11.6-17.2); White Blood Count 5.4 th/mm3 (4.0-11.0)
[2018-05-01 07:36] LABS: Calcium 7.4 mg/dL (8.5-10.1); Carbon Dioxide 33.1 meq/L (21.0-32.0); Potassium 3.6 meq/L (3.5-5.1)
[2018-05-01 07:37] LABS: % Iron Saturation 11.4 % (20-50)
[2018-05-01 07:59] LABS: Total Protein 5.8 g/dL (6.4-8.2)
--- NOTE | 2018-05-01 08:56 | P.PNNP ---
Subjective Interval history: Patient is refusing to take Golytely prep. Therefore colonoscopy could not be done. She two more episodes of rectal bleeding overnight. Physical Exam Vital signs: Vital Signs 04/30/18 12:00 04/30/18 16:00 04/30/18 16:24 Temperature Pulse Rate 78 79 Respiratory Rate Blood Pressure Pulse Oximetry 95 04/30/18 19:59 04/30/18 20:00 05/01/18 00:00 Temperature 98.8 F 97.7 F Pulse Rate 77 76 69 Respiratory Rate 20 18 Blood Pressure 167/72 H 167/75 H Pulse Oximetry 96 97 05/01/18 04:00 Temperature 98.2 F Pulse Rate 67 Respiratory Rate 18 Blood Pressure 166/75 H Pulse Oximetry 100 Intake & Output 04/30/18 05/01/18 05/01/18 18:59 06:59 18:59 Intake Total 600 / 600 Balance 600 / 600 Intake: Oral 600 / 600 Other: Date of Last Bowel Movement 05/01/18 # Bowel Movements 3 - Routine HEENT Exam Head: Present: normocephalic, atraumatic - Routine Cardiovascular Exam Present: RRR, S1, S2 - Routine Abdominal Exam Present: soft - Routine Extremities Exam Comments: s/p right BKA - Routine Skin Exam Present: intact - Routine Neurological Exam Present: alert, oriented X3 Assessment and Plan - Assessment (1) ESRD (end stage renal disease) on dialysis Code(s): N18.6 - End stage renal disease; Z99.2 - Dependence on renal dialysis Status: Chronic Plan: She will be dialyzed MWF. Monitor fluid and electrolytes. 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 Patient is refusing bowel prep for colonoscopy. GI has seen the patient. Epogen with dialysis. Started IV iron. (3) HTN (hypertension) Code(s): I10 - Essential (primary) hypertension Status: Chronic Plan: BP is high. Restart home medications. Monitor. (4) Hypothyroid Code(s): E03.9 - Hypothyroidism, unspecified Status: Chronic Plan: continue replacement. (5) Protein-calorie malnutrition, severe Code(s): E43 - Unspecified severe protein-calorie malnutrition Status: Acute - Plan Needs high protein diet, with protein supplement.
--- NOTE | 2018-05-01 09:23 | P.PNFP ---
Subjective Interval history: Patient seen and examined this morning. Patient reports several episodes of blood in stool overnight. Patient states she did not personally witness it, but the nurse mentioned it. Per nursing report, 2-3 episodes of burgundy colored blood in her stool. Patient states her stools are becoming less loose. Otherwise, denies any new symptoms. Some fatigue. Tolerated normal diet overnight. No nausea or vomiting. Denies any fever or chills, chest pain, shortness of breath or abdominal pain. Continued phantom pain occasionally in her right leg. <Reymundo Shine - 05/01/18 13:53> Clarifying "....2 to 3 episodes of burgundy....." (see above). Of note patient has handful of candy from her purse at bedside which she has been eating this morning, in addition to [place] orange and Pepsi sodas, nondiet, at bedside. Indicates she is hungry and ready for lunch, "ate all my breakfast" this am. <Anel Blair - 05/01/18 13:03> Results - Labs Result diagrams: 05/01/18 06:22 05/01/18 06:22 <Reymundo Shine - 05/01/18 09:23> Abnormal lab results 04/30/18 04/30/18 04/30/18 Range/Units 17:35 17:35 22:44 RBC (4.00-5.30) mil/mm3 Hgb 9.3 L 8.5 L (11.6-15.3) gm/dL Hct 28.1 L 26.4 L (35.0-46.0) % RDW (11.6-17.2) % Potassium 3.4 L D (3.5-5.1) meq/L Carbon Dioxide 32.7 H D (21.0-32.0) meq/L BUN (7-18) mg/dL Creatinine 3.30 H (0.50-1.00) mg/dL Estimated GFR 17 L (>89) mL/min POC Glucose (68-110) mg/dl Random Glucose 65 L (74-106) mg/dL Calcium 7.7 L (8.5-10.1) mg/dL Prot Corrected Calcium (8.5-10.1) mg/dL Iron (50-170) mcg/dL TIBC (250-450) mcg/dL % Saturation (20-50) % Total Protein (6.4-8.2) g/dL 05/01/18 05/01/18 05/01/18 Range/Units 06:22 06:22 08:37 RBC 3.10 L (4.00-5.30) mil/mm3 Hgb 8.5 L (11.6-15.3) gm/dL Hct 25.9 L (35.0-46.0) % RDW 19.9 H (11.6-17.2) % Potassium (3.5-5.1) meq/L Carbon Dioxide 33.1 H (21.0-32.0) meq/L BUN 24 H (7-18) mg/dL Creatinine 4.77 H (0.50-1.00) mg/dL Estimated GFR 11 L (>89) mL/min POC Glucose 139 H (68-110) mg/dl Random Glucose 157 H (74-106) mg/dL Calcium 7.4 L* (8.5-10.1) mg/dL Prot Corrected Calcium 8.1 L (8.5-10.1) mg/dL Iron 21 L (50-170) mcg/dL TIBC 185 L (250-450) mcg/dL % Saturation 11.4 L (20-50) % Total Protein 5.8 L D (6.4-8.2) g/dL 05/01/18 Range/Units 12:37 RBC (4.00-5.30) mil/mm3 Hgb (11.6-15.3) gm/dL Hct (35.0-46.0) % RDW (11.6-17.2) % Potassium (3.5-5.1) meq/L Carbon Dioxide (21.0-32.0) meq/L BUN (7-18) mg/dL Creatinine (0.50-1.00) mg/dL Estimated GFR (>89) mL/min POC Glucose 224 H (68-110) mg/dl Random Glucose (74-106) mg/dL Calcium (8.5-10.1) mg/dL Prot Corrected Calcium (8.5-10.1) mg/dL Iron (50-170) mcg/dL TIBC (250-450) mcg/dL % Saturation (20-50) % Total Protein (6.4-8.2) g/dL Short CBC 04/30/18 04/30/18 05/01/18 Range/Units 17:35 22:44 06:22 WBC 5.4 (4.0-11.0) th/mm3 Hgb 9.3 L 8.5 L 8.5 L (11.6-15.3) gm/dL Hct 28.1 L 26.4 L 25.9 L (35.0-46.0) % Plt Count 199 D (150-450) th/mm3 BMP 04/30/18 05/01/18 17:35 06:22 Sodium 144 143 Potassium 3.4 L D 3.6 Chloride 103 102 Carbon Dioxide 32.7 H D 33.1 H BUN 16 24 H Creatinine 3.30 H 4.77 H Calcium 7.7 L 7.4 L* 12:30pm acucheck 224, c/w candy ingestion this am <Anel Blair - 05/01/18 13:03> Abnormal lab results 04/30/18 04/30/18 04/30/18 Range/Units 10:30 17:35 17:35 RBC (4.00-5.30) mil/mm3 Hgb 8.8 L 9.3 L (11.6-15.3) gm/dL Hct 26.9 L 28.1 L (35.0-46.0) % RDW (11.6-17.2) % Potassium 3.4 L D (3.5-5.1) meq/L Carbon Dioxide 32.7 H D (21.0-32.0) meq/L BUN (7-18) mg/dL Creatinine 3.30 H (0.50-1.00) mg/dL Estimated GFR 17 L (>89) mL/min POC Glucose (68-110) mg/dl Random Glucose 65 L (74-106) mg/dL Calcium 7.7 L (8.5-10.1) mg/dL Prot Corrected Calcium (8.5-10.1) mg/dL Iron (50-170) mcg/dL TIBC (250-450) mcg/dL % Saturation (20-50) % Total Protein (6.4-8.2) g/dL 09/05/01/18 05/01/18 Range/Units 22:44 06:22 06:22 RBC 3.10 L (4.00-5.30) mil/mm3 Hgb 8.5 L 8.5 L (11.6-15.3) gm/dL Hct 26.4 L 25.9 L (35.0-46.0) % RDW 19.9 H (11.6-17.2) % Potassium (3.5-5.1) meq/L Carbon Dioxide 33.1 H (21.0-32.0) meq/L BUN 24 H (7-18) mg/dL Creatinine 4.77 H (0.50-1.00) mg/dL Estimated GFR 11 L (>89) mL/min POC Glucose (68-110) mg/dl Random Glucose 157 H (74-106) mg/dL Calcium 7.4 L* (8.5-10.1) mg/dL Prot Corrected Calcium 8.1 L (8.5-10.1) mg/dL Iron 21 L (50-170) mcg/dL TIBC 185 L (250-450) mcg/dL % Saturation 11.4 L (20-50) % Total Protein 5.8 L D (6.4-8.2) g/dL 05/01/18 Range/Units 08:37 RBC (4.00-5.30) mil/mm3 Hgb (11.6-15.3) gm/dL Hct (35.0-46.0) % RDW (11.6-17.2) % Potassium (3.5-5.1) meq/L Carbon Dioxide (21.0-32.0) meq/L BUN (7-18) mg/dL Creatinine (0.50-1.00) mg/dL Estimated GFR (>89) mL/min POC Glucose 139 H (68-110) mg/dl Random Glucose (74-106) mg/dL Calcium (8.5-10.1) mg/dL Prot Corrected Calcium (8.5-10.1) mg/dL Iron (50-170) mcg/dL TIBC (250-450) mcg/dL % Saturation (20-50) % Total Protein (6.4-8.2) g/dL Short CBC 04/30/18 04/30/18 04/30/18 Range/Units 10:30 17:35 22:44 WBC (4.0-11.0) th/mm3 Hgb 8.8 L 9.3 L 8.5 L (11.6-15.3) gm/dL Hct 26.9 L 28.1 L 26.4 L (35.0-46.0) % Plt Count (150-450) th/mm3 05/01/18 Range/Units 06:22 WBC 5.4 (4.0-11.0) th/mm3 Hgb 8.5 L (11.6-15.3) gm/dL Hct 25.9 L (35.0-46.0) % Plt Count 199 D (150-450) th/mm3 BMP 04/30/18 05/01/18 17:35 06:22 Sodium 144 143 Potassium 3.4 L D 3.6 Chloride 103 102 Carbon Dioxide 32.7 H D 33.1 H BUN 16 24 H Creatinine 3.30 H 4.77 H Calcium 7.7 L 7.4 L* <Reymundo Shine - 05/01/18 09:23> - Imaging Impressions GI Bleed Scan Nuclear Medicine 04/30/18 00:00 CONCLUSION: 1. No episodes of active GI bleeding observed. <Anel Blair - 05/01/18 12:46> Impressions GI Bleed Scan Nuclear Medicine 04/30/18 00:00 CONCLUSION: 1. No episodes of active GI bleeding observed. <Reymundo Shine - 05/01/18 09:23> Physical Exam Vital signs: Vital Signs 04/30/18 16:00 04/30/18 16:24 04/30/18 19:59 Temperature Pulse Rate 79 77 Respiratory Rate Blood Pressure Pulse Oximetry 95 04/30/18 20:00 05/01/18 00:00 05/01/18 04:00 Temperature 98.8 F 97.7 F 98.2 F Pulse Rate 76 69 67 Respiratory Rate 20 18 18 Blood Pressure 167/72 H 167/75 H 166/75 H Pulse Oximetry 96 97 100 Intake & Output 04/30/18 05/01/18 05/01/18 18:59 06:59 18:59 Intake Total 600 / 600 105 / 105 Balance 600 / 600 105 / 105 Intake: IV 105 / 105 Venofer Inj 100 MG In NS Inj 105 / 105 100 ML @ 105 mls/hr IV.SIG Q24H [facility] Rx#:[id number] Oral 600 / 600 Other: Date of Last Bowel Movement 05/01/18 # Bowel Movements 3 <Anel Bliar - 05/01/18 12:46> Vital Signs 04/30/18 12:00 04/30/18 16:00 04/30/18 16:24 Temperature Pulse Rate 78 79 Respiratory Rate Blood Pressure Pulse Oximetry 95 04/30/18 19:59 04/30/18 20:00 05/01/18 00:00 Temperature 98.8 F 97.7 F Pulse Rate 77 76 69 Respiratory Rate 20 18 Blood Pressure 167/72 H 167/75 H Pulse Oximetry 96 97 05/01/18 04:00 Temperature 98.2 F Pulse Rate 67 Respiratory Rate 18 Blood Pressure 166/75 H Pulse Oximetry 100 Intake & Output 04/30/18 05/01/18 05/01/18 18:59 06:59 18:59 Intake Total 600 / 600 Balance 600 / 600 Intake: Oral 600 / 600 Other: Date of Last Bowel Movement 05/01/18 # Bowel Movements 3 <Reymundo Shine - 05/01/18 09:23> Narrative: wearing low flow O2 by NC, was napping this am and states baseline use of O2 by MT when she sleeps <Anel Blair - 05/01/18 13:03> GENERAL: lying in bed, NAD SKIN: Warm and dry. No pressure ulcers present on back(not examined today) CARDIOVASCULAR: Regular rate and rhythm. No murmurs appreciated. RESPIRATORY: No accessory muscle use. Clear to auscultation. Diminished breath sounds, but equal bilaterally. GASTROINTESTINAL: Abdomen soft, non-tender, nondistended. Hepatic and splenic margins not palpable. No hernia MUSCULOSKELETAL: Right BKA present. Left leg warm and dry. Pulses appreciated. Left hallux amputated. NEUROLOGICAL: Awake and alert. No obvious cranial nerve deficits. Motor grossly within normal limits. Normal speech. PSYCHIATRIC: Appropriate mood and affect; insight and judgment normal. <Reymundo Shine - 05/01/18 10:10> Assessment and Plan - Assessment (1) Chronic lower GI bleeding Code(s): K92.2 - Gastrointestinal hemorrhage, unspecified Status: Acute (2) ESRD (end stage renal disease) on dialysis Code(s): N18.6 - End stage renal disease; Z99.2 - Dependence on renal dialysis Status: Chronic (3) Type 2 diabetes mellitus with ESRD (end-stage renal disease) Code(s): E11.22 - Type 2 diabetes mellitus with diabetic chronic kidney disease ; N18.6 - End stage renal disease Status: Acute (4) Labile hypertension Code(s): R09.89 - Other specified symptoms and signs involving the circulatory and respiratory systems Status: Acute (5) Hypothyroid Code(s): E03.9 - Hypothyroidism, unspecified Status: Chronic (6) Depression Code(s): F32.9 - Major depressive disorder, single episode, unspecified Status : Chronic (7) Phantom pain Code(s): G54.6 - Phantom limb syndrome with pain Status: Acute (8) Insomnia Code(s): G47.00 - Insomnia, unspecified Status: Acute (9) Nutrition, metabolism, and development symptoms Code(s): R63.8 - Other symptoms and signs concerning food and fluid intake Status: Acute <Anel Blair - 05/01/18 12:46> (1) Chronic lower GI bleeding Code(s): K92.2 - Gastrointestinal hemorrhage, unspecified Status: Acute Plan: 73-year-old female with past medical history of hypertension, ESRD on dialysis ( MWF), hypothyroidism, diabetes, and depression presents with acute on chronic blood loss anemia secondary to lower GI bleed. Patient admitted for blood transfusion and to be seen by GI and nephrology. Per EMR, patient was hospitalized for a GI bleed back in March. GI was consulted at that time. Patient underwent the EGD and colonoscopy on 03/14. Colonoscopy demonstrated anastomosis of the left colon with blood clots around the anastomosis, internal hemorrhoids. EGD demonstrated normal esophagus, mild gastritis in the gastric antrum where biopsy was performed, normal duodenal mucosa, hiatal hernia. Gastric antrum biopsy demonstrating antral mucosa with mild active chronic gastritis and focal intestinal metaplasia. Patient was to have colonoscopy and Hemoccult repeated in 1 year. Patient also was recommended to have repeat EGD in 3 years. Hx of left colectomy and low anterior anastomosis by Dr. De La Cruz H/H- 7.5/24.0 on admission H/H overnight remained stable around 8.5 -s/p 2 units of packed red blood cells on 04/29 -Protonix 40mg IV q12h -Held Aspirin, other NSAIDs, anticoagulants -GI consulted, appreciate recs -Pt refusing colonoscopy prep, due to ESRD, can only use PEG prep -Nuclear medicine bleeding scan performed, which showed no active sign of bleeding -Signed off at this time due to no further intervention able to be done (2) ESRD (end stage renal disease) on dialysis Code(s): N18.6 - End stage renal disease; Z99.2 - Dependence on renal dialysis Status: Chronic Plan: Patient receives dialysis (MWF). 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 Greene Nephrology consulted, appreciate recs [id number] on admission Continue dialysis as scheduled per nephrology -Started on IV iron infusions -Discussed with Dr. Greene discharge today -IV iron infusions will be arranged with dialysis Monitor I/O (3) Type 2 diabetes mellitus with ESRD (end-stage renal disease) Code(s): E11.22 - Type 2 diabetes mellitus with diabetic chronic kidney disease ; N18.6 - End stage renal disease Status: Acute Plan: Pt takes Lantus 10U nightly at home A1c on 03/12/18 was 5.8. Well-controlled -Will hold home lantus for now. -Low dose sliding scale -Monitor blood sugar with accuchecks. (4) Labile hypertension Code(s): R09.89 - Other specified symptoms and signs involving the circulatory and respiratory systems Status: Acute Plan: History of hypertension and ESRD. Was taken off lisinopril and amlodipine earlier this year due to hypotension Admitted with elevated BPs up to 190 systolic -Clonidine PRN -Due to continued high BP, will start amlodipine (5) Hypothyroid Code(s): E03.9 - Hypothyroidism, unspecified Status: Chronic Plan: Continue on levothyroxine 88mcg daily TSH 1.34, T4 1.46 (6) Depression Code(s): F32.9 - Major depressive disorder, single episode, unspecified Status : Chronic Plan: Continue mirtazapine 50 mg p.o. daily (7) Phantom pain Code(s): G54.6 - Phantom limb syndrome with pain Status: Acute Plan: History of right BKA. Phantom pain off and on. Wakes her up from sleep Will try Tylenol 650 scheduled HS (8) Insomnia Code(s): G47.00 - Insomnia, unspecified Status: Acute Plan: Continue home ambien (9) Nutrition, metabolism, and development symptoms Code(s): R63.8 - Other symptoms and signs concerning food and fluid intake Status: Acute Plan: Diet: Diabetic & renal diet Fluids: None Electrolytes: to be managed by nephrology GI ppx: Protonix DVT ppx: SCD, chemical ppx contraindicated Case management and PT consulted <RadhadouglasReymundo Jean Paul - 05/01/18 14:04> - Assessment and Plan 73 y/o female with history of ESRD on dialysis, DM, HTN, hypothyroidism and chronic GI bleeding presents with new lower GI bleeding. Hemoglobin of 7.5 on admission. Given transfusion and GI consulted for further recs. Nephrology consulted for management of dialysis. Will trend H/H and monitor clinical status. <RadhadouglasReymundo Jean Paul - 05/01/18 10:25> Discharge Planning: Lives at home with daughter. Receives PT/OT/nursing care, would benefit from continued care PT recommends Hair rodrigez, will write for DME upon discharge Discharge today with dialysis tomorrow along with IV iron infusions. <MarkusReymundo tee - 05/01/18 14:04> - Attending Attestation The exam, history, and the medical decision-making described in the above note were completed with the assistance of the resident physician. I reviewed and agree with the findings presented. I attest that I had a [id number] encounter with the patient on the same day, and personally performed and documented my assessment and findings in the medical record, as well as counseled pt re: appropriate snack options (mid-day acucheck elevation c/w candy ingestion this am). Reviewed findings of bleeding scan which was negative , she understands this was alternative to bowel prep and colonoscopy which she declined. Hemoglobin is stable, she will be discharged home today after arranging 2 additional iron infusions. Continue Nephrocaps, other pre-admit meds with addition of low dose amlodipine. Recommend outpatient follow-up 1 week. Cont M,W,F dialysis. Next dialysis due tomorrow. <Anel Blair - 05/01/18 13:03> <Reymundo Shine J - Last Filed: 05/01/18 14:04> (8) Insomnia Qualifiers: Insomnia type: primary Qualified Code(s): F51.01 - Primary insomnia <Reymundo Shine J - Last Filed: 05/01/18 14:04> (8) Insomnia Qualifiers: Insomnia type: primary Qualified Code(s): F51.01 - Primary insomnia
[2018-05-01] MEDS: Mirtazapine 15 MG Tablet PO SCH (10:27)
[2018-05-01] MEDS: Vitamin B Complex/Vit C/Folic Tablet PO SCH (10:27)
[2018-05-01] MEDS: Pantoprazole Inj 40 MG Vial IV.PUSH SCH (10:28)
[2018-05-01] MEDS ORDERED: amLODIPine 5 MG Tablet PO SCH (10:45)
[2018-05-01] MEDS ORDERED: Iron Sucrose Inj 100 MG in Sodium Chlor 0.9% Inj 100 ML IV.SIG SCH (11:00)
[2018-05-01 13:53] VITALS: O2SAT 98
[2018-05-01 13:55] VITALS: BP 186/86; TEMP 97.8
--- NOTE | 2018-05-01 15:15 | P.DCO ---
- Physical Therapy Order: Evaluate and treat, Improve ambulation, Strength and gait training - Occupational Therapy Order: Evaluate and treat, Improve ADL, Gross motor coordination, Fine motor coordination - Home Health Nursing Order: Medical education, Signs/symptoms of disease process, Diabetic education , Medication education-adverse effect, Nursing assessment with vital signs - Home Health Aide Order: To assist in: Bathing and personal care - Case Management Consult Yes - Certification I have seen patient Anel Bolivar on 05/01/18. My clinical findings support the need for the requested home health care services because: Limited mobility due to disease progression, Deconditioned with increased weakness, Medication compliance is questionable, Limited ability to care for self, Impaired cognition/judgement, High risk of falls I certify that my clinical findings support that this patient is homebound because: Impaired cognitive ability/safety, Unsteady gait/balance, Unsafe to leave home unassisted
[2018-05-01 15:39] VITALS: PULSE 72
--- NOTE | 2018-05-01 15:58 | P.DS ---
Date of admission: 04/29/18 20:45 Primary care physician: Charu Akbar MD, R3 Attending physician on discharge: Anel Blair Anticipated date of discharge: 05/01/18 Brief History from admission: 73-year-old female with past medical history of end-stage renal disease on dialysis (MWF), s/p right BKA, diabetes, hypertension, hypothyroidism, COPD and recurrent GI bleeds who presents the ED for rectal bleeding. Patient states that she started having rectal bleeding on Saturday. She states that she started having diarrhea at the same time. She reports that the rectal bleeding slightly resolved, but then came back this morning. She reports that when she went to the bathroom this morning and her briefs were soaked with blood. She then decided that she needed to go to the hospital. She denies lightheadedness , fatigue, and weakness. Reports missing dialysis on Saturday because she stayed up all night going to the bathroom due to diarrhea. She has no other complaints at this time. She denies chest pain, shortness of breath, nausea and vomiting, and abdominal pain. Completion Supervisor, Dr. Greene Patient update on day of discharge: Patient seen and examined this morning. Patient reports several episodes of blood in stool overnight. Patient states she did not personally witness it, but the nurse mentioned it. Per nursing report, 2-3 episodes of burgundy colored blood in her stool. Patient states her stools are becoming less loose. Otherwise, denies any new symptoms. Some fatigue. Tolerated normal diet overnight. No nausea or vomiting. Denies any fever or chills, chest pain, shortness of breath or abdominal pain. Continued phantom pain occasionally in her right leg. DS: Diagnosis - Discharge Diagnosis (1) Chronic lower GI bleeding Status: Acute (2) ESRD (end stage renal disease) on dialysis Status: Chronic (3) Type 2 diabetes mellitus with ESRD (end-stage renal disease) Status: Acute (4) Labile hypertension Status: Acute (5) Hypothyroid Status: Chronic (6) Depression Status: Chronic (7) Phantom pain Status: Acute (8) Insomnia Status: Acute (9) Nutrition, metabolism, and development symptoms Status: Acute DS: Medications - Discharge Medications Prescriptions: amlodipine [Norvasc] 2.5 mg PO DAILY #90 tab DS: Summary Hospital Course: 73-year-old female with history of ESRD on dialysis, diabetes, hypothyroidism, hypertension, right BKA presents with lower GI bleeding. Patient was found to have hemoglobin of 7.5 on admission and had missed the previous day dialysis due to being at home with diarrhea and blood in her stool. Was given 2 units of blood with dialysis that day. Patient was admitted for a consult to GI and nephrology for dialysis management. Patient refused colonoscopy prep, therefore a nuclear medicine bleeding scan was performed. It showed no active signs of bleeding. GI recommended colonoscopy, but patient continued to decline colonoscopy prep. GI signed off. Patient went to dialysis, and was started on IV iron transfusions due to low iron levels. Patient's blood pressure was labile throughout the hospital admission. Had recently stopped her blood pressure medications. Restarted amlodipine 2.5 mg daily. May need increase in outpatient setting follow-up. Due to no active signs of GI bleeding and improvement of symptoms and stable hemoglobin levels, patient was discharged in stable condition with follow-up of CBC next week as well as PCP follow-up. Patient will continue to receive dialysis and iron transfusions with dialysis. - Time Spent with Patient Total time spent providing and/or coordinating discharge services: Greater than 30 minutes - Quality: VTE Deep Vein Thrombosis/Pulmonary Embolism Present on Admission: No Exam Vital signs: Vital Signs 04/30/18 16:00 04/30/18 16:24 04/30/18 19:59 Temperature Pulse Rate 79 77 Respiratory Rate Blood Pressure Pulse Oximetry 95 04/30/18 20:00 05/01/18 00:00 05/01/18 04:00 Temperature 98.8 F 97.7 F 98.2 F Pulse Rate 76 69 67 Respiratory Rate 20 18 18 Blood Pressure 167/72 H 167/75 H 166/75 H Pulse Oximetry 96 97 100 05/01/18 08:00 05/01/18 12:00 Temperature 98.0 F 97.8 F Pulse Rate 67 72 Respiratory Rate 18 18 Blood Pressure 175/84 H 186/86 H Pulse Oximetry 98 98 Intake & Output 04/30/18 05/01/18 05/01/18 18:59 06:59 18:59 Intake Total 600 / 600 105 / 105 Balance 600 / 600 105 / 105 Intake: IV 105 / 105 Venofer Inj 100 MG In NS Inj 105 / 105 100 ML @ 105 mls/hr IV.SIG Q24H [facility] Rx#:[id number] Oral 600 / 600 Other: Date of Last Bowel Movement 05/01/18 # Bowel Movements 3 Narrative: GENERAL: lying in bed, NAD SKIN: Warm and dry. No pressure ulcers present on back(not examined today) CARDIOVASCULAR: Regular rate and rhythm. No murmurs appreciated. RESPIRATORY: No accessory muscle use. Clear to auscultation. Diminished breath sounds, but equal bilaterally. GASTROINTESTINAL: Abdomen soft, non-tender, nondistended. Hepatic and splenic margins not palpable. No hernia MUSCULOSKELETAL: Right BKA present. Left leg warm and dry. Pulses appreciated. Left hallux amputated. NEUROLOGICAL: Awake and alert. No obvious cranial nerve deficits. Motor grossly within normal limits. Normal speech. PSYCHIATRIC: Appropriate mood and affect; insight and judgment normal. Results Procedures completed during hospitalization: None Labs on day of discharge: Labs from last 24 hours 05/01/18 05/01/18 05/01/18 12:37 08:37 06:22 WBC RBC Hgb Hct MCV MCH MCHC RDW Plt Count MPV Sodium 143 Potassium 3.6 Chloride 102 Carbon Dioxide 33.1 H Anion Gap 8 BUN 24 H Creatinine 4.77 H Estimated GFR 11 L POC Glucose 224 H 139 H Random Glucose 157 H Calcium 7.4 L* Prot Corrected Calcium 8.1 L Iron 21 L TIBC 185 L % Saturation 11.4 L Total Protein 5.8 L D TSH Free T4 05/01/18 04/30/18 04/30/18 06:22 22:44 17:35 WBC 5.4 RBC 3.10 L Hgb 8.5 L 8.5 L Hct 25.9 L 26.4 L MCV 83.3 D MCH 27.4 MCHC 32.8 RDW 19.9 H Plt Count 199 D MPV 9.3 Sodium Potassium Chloride Carbon Dioxide Anion Gap BUN Creatinine Estimated GFR POC Glucose Random Glucose Calcium Prot Corrected Calcium Iron TIBC % Saturation Total Protein TSH Cancelled Free T4 Cancelled 04/30/18 04/30/18 17:35 17:35 WBC RBC Hgb 9.3 L Hct 28.1 L MCV MCH MCHC RDW Plt Count MPV Sodium 144 Potassium 3.4 L D Chloride 103 Carbon Dioxide 32.7 H D Anion Gap 8 BUN 16 Creatinine 3.30 H Estimated GFR 17 L POC Glucose Random Glucose 65 L Calcium 7.7 L Prot Corrected Calcium Iron TIBC % Saturation Total Protein TSH 1.340 Free T4 1.46 - Impressions ITS Impressions GI Bleed Scan Nuclear Medicine 04/30/18 00:00 CONCLUSION: 1. No episodes of active GI bleeding observed. Discharge Plan - Discharge Disposition Patient Disposition: /Home Health Service - Discharge Condition Condition: Stable - Discharge Order Discharge Orders: Discharge Order (Routine); Ordered 05/01/18 Ordered By: Reymundo Shine - Discharge Details Anticipated Discharge Date: 05/01/18 - Physicians Team Primary Care Provider: Charu Akbar Attending Provider: Anel Blair Other Providers: Dao Greene MD ; Monster Quiles MD
== END 2018-05-01 18:21 | disposition home health service (06) ==
LOC: NEPE 15:07 → NEDA 20:45 → N04 23:58
PROVIDERS: ADMIT Family Medicine; ATTEND Family Medicine